=== PATIENT | female | born 1955 | race Caucasian/White ===

== ENCOUNTER → 2023-12-13 | Outpatient (CLI) | payer MEDICARE, SELFPAY ==
--- NOTE | 2023-12-13 15:16 | RAD_ITS ---
INDICATION: PAIN EXAMINATION/TECHNIQUE: X-RAY - XR Spine Thoracic 3 Views COMPARISON: FINDINGS: VERTEBRAE: Preserved vertebral body height. Degenerative endplate spurring more prominent to the mid thoracic levels. Mild wedge compression of T7-T9. Status post surgical fusion of the lower thoracic through the lumbar levels. Status post surgical fusion at the C4-5 and the cervicothoracic junction. No fracture. No spondylolisthesis. Slightly increased thoracic kyphosis. No significant facet arthropathy. DISCS: Disc spaces are maintained. INCLUDED CHEST/ABDOMEN: No acute abnormalities. RAD/Thoracic Spine 3 Views IMPRESSION: Degenerative and postsurgical changes. Electronically Signed: Nils Wilkerson DO at 17:52 EST Reading Location ID and State: [facility] / [place] Tel [phone], Service support ,
--- NOTE | 2023-12-13 15:20 | RAD_ITS ---
INDICATION: PAIN EXAMINATION/TECHNIQUE: X-RAY - LEFT XR Knee Complete 4 Views COMPARISON: FINDINGS: SOFT TISSUES: No soft tissue swelling or gas. No radiopaque foreign body. BONES/JOINTS: No acute fracture or subluxation.. Degenerative spurring at the femorotibial and patellofemoral compartments. Significant narrowing of the medial femorotibial compartment .. No sclerotic or destructive changes observed. RAD/Knee 4 or More Views IMPRESSION: Degenerative changes with significant narrowing of the medial femorotibial compartment. Electronically Signed: Nils Wilkerson DO at 17:40 EST Reading Location ID and State: [facility] / [place] Tel [phone], Service support ,
== END | disposition home or self-care (01) ==
LOC: RAD 15:11
PROVIDERS: Referring Provider Anesthesiology Pain Medicine; Visit Provider Anesthesiology Pain Medicine
DX: M17.12 Unilateral primary osteoarthritis, left knee (principal); M51.36 Other intervertebral disc degeneration, lumbar region
CPT/HCPCS: 72072; 73564

== ENCOUNTER 2024-07-13 06:18 | Day surgery (SDC) | payer MEDICARE, SELFPAY ==
[2024-07-13] VITALS (7 sets, daily range): BP systolic 135–175; BP diastolic 57–92; PULSE 61–99; RESP 16–17; TEMP 36.2–36.5; O2SAT 89–97; BMI 28.8
--- NOTE | 2024-07-13 06:30 | RAD_ITS ---
PROCEDURE: Pain pump insertion. DATE OF EXAMINATION: July 13, 2024 INDICATION: Female, 69 years old. Chronic back pain. FLUOROSCOPY TIME (if supplied): (5.8 seconds) minutes/seconds. 2.7 mGy. One image was submitted. RAD/Spine 1 View Any Level IMPRESSION: Intraoperative fluoroscopic services provided for implantable pain pump placement. Electronically Signed: Sean Galvan MD at 8:50 EDT ,
--- NOTE | 2024-07-13 06:36 | PCM.PRE.AN2 ---
ASA Classification* ASA Classification ASA Classification: 3 Assessment & Plan Anesthesia* Anesthesia Assessment Anesthesia Assessment: Discussed sedation and/or anesthesia options, risks, benefits, and alternatives with patient/parents/legal guardian/POA. Questions invited. The patient/parents/legal guardian/POA seems to understand and agrees to proceed with anesthesia plan. Reviewed the physical assessment, medical history, allergy history and patient home medications list prior to surgery/procedure/anesthetic and documented any changes. Performed airway and anesthesia risk assessments. Anesthesia Type Anesthesia Type: General Anesthesia Focused Assessment* Airway Assessment Mouth opens: >3 cm Mallampati Score: II Focused Labs Anesthesia Preop lab: CBC CHEMISTRY COAG Pre-Assessment Diagnosis/Proposed Procedure Planned Operative Procedure(s): Insertion, Pain Pump,Implantable Anesthesia History Anesthesia History - licensed clinical social worker: Anesthesia History - licensed clinical social worker Hx Hospitalization Yes: FALL 07/12/24 08:23 Any Problems With Anesthesia No 07/12/24 08:23 Cholinesterase deficiency No 07/12/24 08:23 You/Your Family Experience No 07/12/24 08:23 fever (hyperthermia) with Relationship Recent Exposure to Contagious Disease Does patient have nerve No 07/12/24 08:23 stimulator Patient instructed to have device shut off --Does patient have Pacemaker or ICD? When Was Last Pacemaker Check QUESTION #4 FULL TEXT: You/Your Family Experience fever (hyperthermia) with Anesthesia Last Oral Intake Last Oral intake: Last Oral Intake NPO since Meds taken in AM with sips of water? Meds patient instructed to take am of surgery PONV PONV - licensed clinical social worker: PONV - licensed clinical social worker Female Yes 07/12/24 08:23 HX of Motion Sickness No 07/12/24 08:23 HX of N/V After Surgery No 07/12/24 08:23 Non-Smoker Yes 07/12/24 08:23 Duration of Surgery greater No 07/12/24 08:23 than 60 minutes Number of Risk Factors 2 07/12/24 08:23 PONV Score Moderate Risk 07/12/24 08:23 Respiratory Assessment Respiratory Assessment - licensed clinical social worker: Respiratory Tract Infection Hx - licensed clinical social worker Hx Respiratory Tract Infection No 07/12/24 08:23 STOP Sleep Apnea STOP Sleep Apnea - licensed clinical social worker: STOP Sleep Apnea - licensed clinical social worker Hx Hypertension Yes: CONTROLLED ON MED 07/12/24 08:23 Hx Sleep Apnea Yes: NON-COMPLIANT 07/12/24 08:23 CPAP No 07/12/24 08:23 BIPAP No 07/12/24 08:23 Do you snore loudly (louder than talking or can be heard Do you often feel tired/ fatigued/ sleepy during daytime? Has anyone observed you stop breathing during sleep? STOP Results Positive 07/12/24 08:23 QUESTION #5 FULL TEXT : Do you snore loudly (louder than talking or can be heard through closed doors)? Tobacco Use History Tobacco Use History - licensed clinical social worker: Tobacco Use History - licensed clinical social worker Tobacco Use Smoking Status Never smoker 07/12/24 08:23 Hx Tobacco Use No 07/12/24 08:23 Years Smoking Packs Smoked per Day Smoking Cessation Date was within the last 15 years Hx Smoking Cessation Date Hx Smoking Cessation Counseling Hematologic Medial History Hematologic Hx - licensed clinical social worker: Hematologic Medical Hx - reading instructor Hx of Blood Transfusion No 07/12/24 08:23 Hx of Transfusion in last 3 No 07/12/24 08:23 Months Date of Last Transfusion (if within last 3 months) Ever experience any problems No 07/12/24 08:23 with transfusion(s)? Specify any problems Hx of Preganancy in last 3 No 07/12/24 08:23 Months Nurse Filling Out Transfusion VCHRISTIN 07/12/24 08:23 & Questions: Date: 07/12/24 07/12/24 08:23 Time: 08:24 07/12/24 08:23 Patient unable to answer at this time (ie. confused, unrespo /Reproduction History /Reproductive History - licensed clinical social worker: /Reproductive Hx- licensed clinical social worker Hx Now Gestational Age (in weeks): EDC: Hx Hx Para Hx Section SAB Active Medications Active Medications: Current Medications Generic Name Dose Route Start Last Admin Trade Name Freq PRN Reason Stop Dose Admin Diphenhydramine HCl 12.5 - 25 mg 07/13/24 07:30 Diphenhydramine 50 Mg/Ml Syringe IV Q6H PRN PRN ITCHING Diphenhydramine HCl 12.5 - 25 mg 07/13/24 07:30 Diphenhydramine 12.5 Mg/5 Ml Udc PO Q6H PRN PRN ITCHING Morphine Sulfate 100 mg/ 20 mls @ 0.0083 mls/hr 07/13/24 07:30 Sodium Chloride 16 ml/ N/A INTRATH .Q48H DAIN Cefazolin Sodium 3 gm/ Sodium 115 mls @ 150 mls/hr 07/13/24 07:30 Chloride IV 07/13/24 08:15 PREOP ONE Lactated Ringer's 1,000 mls @ 15 mls/hr 07/13/24 07:30 IV 07/15/24 07:29 .Q48H DAIN Lactated Ringer's 1,000 mls @ 15 mls/hr 07/13/24 06:30 IV .Q48H DAIN PFSH Medical History Wears glasses Post-menopausal Depression Arthritis Difficulty swallowing DVT (deep venous thrombosis) Back pain Non-smoker Sleep apnea Shortness of breath on exertion COPD (chronic obstructive pulmonary disease) History of pain when walking History of edema Hypertension Cardiology follow-up encounter History of CHF (congestive heart failure) Chest pain Home Medications ?Medication ?Instructions ?Recorded ?Last Taken ?Type albuterol sulfate 2.5 mg/3 mL 2.5 mg inhalation Q6H PRN 07/12/24 Unknown History (0.083 %) solution for nebulization shortness of breath or wheezing albuterol sulfate 90 mcg/actuation 2 inh inhalation Q6H PRN shortness 07/12/24 Unknown History aerosol inhaler of breath or wheezing amlodipine 10 mg tablet 10 mg PO DAILY 07/12/24 Unknown History beclomethasone dipropionate 40 2 inh inhalation BID 07/12/24 Unknown History mcg/actuation HFA breath activated aerosol (Qvar RediHaler) fluticasone propionate 50 1 - 2 spray intranasal DAILY PRN 07/12/24 Unknown History mcg/actuation nasal nasal congestion spray,suspension furosemide 40 mg tablet 20 mg PO DAILY 07/12/24 Unknown History ibuprofen-diphenhydramine citrate 1 cap PO QHS 07/12/24 Unknown History 200 mg-38 mg tablet (Advil PM) lisinopril 20 mg tablet 20 mg PO DAILY 07/12/24 Unknown History loratadine 10 mg tablet 10 mg PO DAILY 07/12/24 Unknown History montelukast 10 mg tablet 10 mg PO DAILY 07/12/24 Unknown History oxycodone-acetaminophen 10 mg-325 1 tab PO Q4H PRN PRN pain 07/12/24 Unknown History mg tablet ropinirole 2 mg tablet 2 mg PO TID 07/12/24 Unknown History sertraline 50 mg tablet 100 mg PO DAILY 07/12/24 Unknown History sumatriptan succinate 100 mg tablet 100 mg PO UD PRN migraine headache 07/12/24 Unknown History Allergy/AdvReac Type Severity Reaction Status Date / Time No Known Allergies Allergy Verified 07/12/24 07:59 Surgical History History of cardiac catheterization Hx of shoulder replacement History of lung surgery Hx of hysterectomy Hx of total hip arthroplasty Hx of total knee arthroplasty Hx of foot surgery Hx of toe surgery History of back surgery Hx of neck surgery Social History Smoking Status: Never smoker Review of Systems (Anesthesia) ROS Narrative System reviewed and no additional complaints, except as documented.
[2024-07-13] MEDS: Lactated Ringers 1,000 ML 15 ML IV (06:52)
[2024-07-13] MEDS: Cefazolin 3 GM in 0.9% Normal Saline (100mL Bag) 100 ML IV (07:40)
[2024-07-13] MEDS: Bupiv/Epi 0.25% 30 ML Vial (09:01)
[2024-07-13] MEDS: Lidocaine 1% (20 ml mdv) 20 ML Vial (09:01)
[2024-07-13] MEDS: NORMAL SALINE INTRATH (09:03)
[2024-07-13] MEDS: MORPHINE INTRATH (09:03)
--- NOTE | 2024-07-13 09:25 | PCM.POST.ANE ---
Anesthesia: Postop Eval I Current Vital Signs Temperature: 97.7 F Pulse Rate: 79 Blood Pressure: 136/57 Respiratory Rate: 16 Pulse Ox: 97 Oxygen Delivery Method: Room Air Assessment Airway patent: Yes Spontaneous unlabored respirations: Yes Mental status: Awake and Calm nausea: No Vomiting: No Anesthesia Complication: No Fluid Hydration Crystalloid volume administer (ml): 1,100 Total IV fluid infused: 1,100 Progress Note Anesthesia document: Postop Eval 1 completed: Yes
--- NOTE | 2024-07-13 15:43 | POSTOPAN2_ITS ---
Anesthesia Postop Eval I Sum Postop Eval Completion status Anesthesia document: Postop Eval 1 completed: Yes Anesthesia Postop Eval I Summary Anesthesia Postop Eval I Summary: Anesthesia Postop Eval I: Assessment Summary Airway patent Yes 07/13/24 09:33 NETWORKING TECHNOLOGY INSTRUCTOR.GDOTT Spontaneous unlabored Yes 07/13/24 09:33 NETWORKING TECHNOLOGY INSTRUCTOR.GDOTT respirations Mental status Awake,Calm 07/13/24 09:33 NETWORKING TECHNOLOGY INSTRUCTOR.GDOTT nausea No 07/13/24 09:33 NETWORKING TECHNOLOGY INSTRUCTOR.GDOTT Vomiting No 07/13/24 09:33 NETWORKING TECHNOLOGY INSTRUCTOR.GDOTT Anesthesia Postop Eval I: Fluid Summary Crystalloid volume administer 1,100 07/13/24 09:33 NETWORKING TECHNOLOGY INSTRUCTOR.GDOTT (ml) Colloids volume administered ( ml) Blood Product volume administered (ml) Total IV fluid infused 1,100 07/13/24 09:33 NETWORKING TECHNOLOGY INSTRUCTOR.GDOTT Anesthesia Postop Eval I: Summary Notes Anesthesia Complication No 07/13/24 09:33 NETWORKING TECHNOLOGY INSTRUCTOR.GDOTT Anesthesia Complication Comment: Post-operative progress note Anesthesia: Postop Eval II Evaluation Mental status: Awake Pain Level: 0 nausea: No Vomiting: No
--- NOTE | 2024-07-13 15:43 | PCM.POSTANE2 ---
Anesthesia Postop Eval I Sum Postop Eval Completion status Anesthesia document: Postop Eval 1 completed: Yes Anesthesia Postop Eval I Summary Anesthesia Postop Eval I Summary: Anesthesia Postop Eval I: Assessment Summary Airway patent Yes 07/13/24 09:33 PIPE STEM ALIGNER.GDOTT Spontaneous unlabored Yes 07/13/24 09:33 PIPE STEM ALIGNER.GDOTT respirations Mental status Awake,Calm 07/13/24 09:33 PIPE STEM ALIGNER.GDOTT nausea No 07/13/24 09:33 PIPE STEM ALIGNER.GDOTT Vomiting No 07/13/24 09:33 PIPE STEM ALIGNER.GDOTT Anesthesia Postop Eval I: Fluid Summary Crystalloid volume administer 1,100 07/13/24 09:33 PIPE STEM ALIGNER.GDOTT (ml) Colloids volume administered ( ml) Blood Product volume administered (ml) Total IV fluid infused 1,100 07/13/24 09:33 PIPE STEM ALIGNER.GDOTT Anesthesia Postop Eval I: Summary Notes Anesthesia Complication No 07/13/24 09:33 PIPE STEM ALIGNER.GDOTT Anesthesia Complication Comment: Post-operative progress note Anesthesia: Postop Eval II Evaluation Mental status: Awake Pain Level: 0 nausea: No Vomiting: No
== END 2024-07-13 11:03 | disposition home or self-care (01) ==
LOC: SDC 06:19 → AC 06:19
PROVIDERS: Referring Provider Anesthesiology Pain Medicine; Visit Provider Anesthesiology Pain Medicine
PROC: (CPT 62350; principal; 2024-07-13 07:15)
DX: G89.4 Chronic pain syndrome (principal); J44.9 Chronic obstructive pulmonary disease, unspecified; M54.50 Low back pain, unspecified; M51.36 Other intervertebral disc degeneration, lumbar region; M96.1 Postlaminectomy syndrome, not elsewhere classified; I10 Essential (primary) hypertension; M19.90 Unspecified osteoarthritis, unspecified site; Z79.82 Long term (current) use of aspirin; Z79.899 Other long term (current) drug therapy
CPT/HCPCS: 62350; 72020; 76000; J7120; J2274; J2405; J3490

== ENCOUNTER → 2025-04-25 | Outpatient (CLI) | payer MEDICARE, SELFPAY ==
--- NOTE | 2025-04-25 12:30 | RAD_ITS ---
EXAM: XR Right Knee, 1 or 2 Views CLINICAL INDICATION: PAIN TECHNIQUE: Frontal and/or lateral views of the right knee. COMPARISON: No relevant prior studies available. FINDINGS: BONES/JOINTS: Total knee replacement. Intact hardware. Anatomic position. No acute fracture. No dislocation. SOFT TISSUES: Soft tissue swelling. RAD/Knee 1 or 2 Views IMPRESSION: Postoperative changes as above. Reading Location: [id number]
--- NOTE | 2025-04-25 12:30 | RAD_ITS ---
EXAM: XR Left Knee, 1 or 2 Views CLINICAL INDICATION: PAIN TECHNIQUE: Frontal and/or lateral views of the left knee. COMPARISON: No relevant prior studies available. FINDINGS: BONES/JOINTS: Severe degenerative changes of the medial compartment of the knee joint. No acute fracture. No dislocation. SOFT TISSUES: Soft tissue swelling. RAD/Knee 1 or 2 Views IMPRESSION: Degenerative changes as above. Reading Location: [id number]
--- NOTE | 2025-04-25 12:31 | RAD_ITS ---
EXAM: XR Cervical Spine, 2 or 3 Views CLINICAL INDICATION: POSTLAMINECTOMY SYNDROME TECHNIQUE: Frontal and lateral views of the cervical spine. COMPARISON: No relevant prior studies available. FINDINGS: VERTEBRAE: Status post anterior fusion of C4-5 and C7-T1. No definite fracture. Normal alignment. DISC SPACES: See above. SOFT TISSUES: Unremarkable. RAD/Cerv Spine 2 or 3 Views IMPRESSION: Postoperative changes as above. Reading Location: [id number]
== END | disposition home or self-care (01) ==
PROVIDERS: Referring Provider Anesthesiology Pain Medicine; Visit Provider Anesthesiology Pain Medicine
DX: M96.1 Postlaminectomy syndrome, not elsewhere classified (principal); M25.561 Pain in right knee; M25.562 Pain in left knee
CPT/HCPCS: 72040; 73560

== ENCOUNTER → 2025-09-17 | Outpatient (CLI) | payer MEDICARE, SELFPAY ==
--- NOTE | 2025-09-17 15:23 | RAD_ITS ---
PROCEDURE: KNEE 1 OR 2 VIEWS 09/17/2025 REASON FOR EXAM: B/L KNEE PAIN TECHNIQUE: Procedure Code: RADK Modality: DX Procedure: KNEE 1 OR 2 VIEWS Laterality: Left COMPARISON: None FINDINGS: There is no evidence of fracture or dislocation. There is moderate arthritis of the patellofemoral joint. There is severe arthritis of the medial joint space compartment of the knee. There is moderate arthritis of the lateral joint space compartment of the knee. There is no knee joint effusion. The periarticular soft tissues are normal. RAD/Knee 1 or 2 Views IMPRESSION: Moderate to severe tricompartment arthritis of the left knee. Reading Location: [place] [id number]
--- NOTE | 2025-09-17 15:23 | RAD_ITS ---
PROCEDURE: KNEE 1 OR 2 VIEWS 09/17/2025 REASON FOR EXAM: B/L KNEE PAIN TECHNIQUE: Procedure Code: RADK Modality: DX Procedure: KNEE 1 OR 2 VIEWS Laterality: Right COMPARISON: Right knee, 04/25/2025. FINDINGS: Status post total knee arthroplasty. The patellar, femoral and tibial components are normal apposition. There is no evidence of fracture. There is no knee joint effusion. The periarticular soft tissues are unremarkable. There is normal postoperative air and fluid within the knee and periarticular soft tissues. RAD/Knee 1 or 2 Views IMPRESSION: Normal-appearing right total knee arthroplasty. Reading Location: [place] [id number]
--- OUTSIDE RECORDS SUMMARY | 2025-09-17 19:26 | XMS RPT_ITS | CCD ---
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 Name Role Phone Harmony Gee Unavailable Harmony Gee Unavailable Ankit Marroquin Unavailable [phone] Trent Peguero Unavailable [phone] Unavailable Unavailable Unavailable KristinaMiguel garcia Unavailable Marlen Harmony Unavailable GABO SEARS Unavailable Unavailable ANKIT MARROQUIN Unavailable Unavailable MARRYH, HARMONY Unavailable Unavailable HERCEG ALEJO BERMAN Unavailable Unavailable HERCEG, ALEJO BERMAN Unavailable Unavailable TRENT PEGUERO Unavailable Unavailab [facility] PRIMARY CARE Unavailable U navailable HERCEG, ALEJO BERMAN Unavailable Unavailable KRISTINAMIGUEL KEESHA Unavailable Unavailable MARRYH, HARMONY Unavailable Unavailable KRISTINAMIGUEL KEESHA Unavailable Unavailable KRISTINA, MIGUEL KEESHA Unavailable Unavailable MARRYH, HARMONY Unavailable Unavailable MaribelLiang minaya Unavailable Unavailable MaribelLiang minaya Unavailable Unavailable UNASSIGNED, DOCTOR Unavailable Unavailable BRIAN SILVA Unavailable Unavailable Marlen, Harmony Unavailable Harmony Gee Primary Care Provider Unavailable Primary Care Provider Unavailabl e Harmony Gee Unavailable Harmony Gee Primary Care Provider [phone] Anthony, Candido Unavailable Gavin Valverde Unavailable Trent Peguero Unavailable Marlen AREVALO, Harmony Unavailable Marlen AREVALO, Harmony Primary Care Provider [phone] Marlen AREVALO, Harmony Unavailable Marlen AREVALO, Harmony Primary Care Provider Marlen AREVALO, Harmony Unavailable Marlen AREVALO, Harmony Primary Care Provider [phone] Anthony AREVALO, Candido Unavailable Abram AREVALO, Gavin Mcallister Unavailable [phone] Marlen AREVALO, Harmony Unavailable Marlen AREVALO, Harmony Primary Care Provider Marlen AREVALO, Harmony Unavailable Marlen AREVALO, Harmony Primary Care Provider Marlen AREVALO, Harmony Primary [facility], HARMONY Referring Unavailable KRISTYN HA Attending Unavailable [facility] Primary Care Unavailable DARELL FISHMAN Attending Unava ilable ALLIE RAY Attending Unavailable [facility] Care Unavailable RAY OLIVA Referring Unavailable ALLIE RAY Admitting Unavailable ALLIE RAY Attending Unavailable [facility] Primary Care Unavailable Marlen AREVALO, Harmony Primary Care Provider Harmony Gee MD Unavailable Marlen AREVALO, Harmony Primary Care Provider SALLY GALLEGO Attending Unavailable [facility] Primary Care Unavailable BHAVIK RAOUL S Referring Unavailable SALLY GALLEGO Attending Unavailable [facility] Primary Care Unavailable LUNDY, RAOUL S Referring Unavailable [facility] Primary Care Unavailable LUNDY, RAOUL S Referring Unavailable GALLEGOSALLY DOCKERY Attending Unavailable LUNDY, RAOUL S Referring Unavailable LUNDY RAOUL S Attending Unavailable [facility], [facility] Primary Care Unavailable BHAVIK AROUL S Referring Unavailable [facility] [place] Primary Care Unavailable LUNDY, RAOUL S Attending Unavailable LUNDY, RAOUL S Referring Unavailable [facility], [facility] Primary Care Unavailable LUNDY, RAOUL S Attending Unavailable LUNDY, RAOUL S Referring Unavailable LUNDY, RAOUL S Attending Unavailable [facility], [facility] Primary Care Unavailable LUNDY, RAOUL S Referring Unavailable LUNDY, RAOUL S Attending Unavailable [facility], [facility] Primary Care Unavailable Sylvester, David Sandadi Primary Care Provider LUNDY, RAOUL S Attending Unavailable [facility] Primary Care Unavailable LUNDY, RAOUL S Referring Unavailable [facility] Primary Care Unavailable RAMONAJOSE Nichols L Attending Unavailable RAMONA JOSE L Referring Unavailable [facility] Primary Care Unavailable LUNDY, RAOUL S Referring Unavailable LUNDY, RAOUL S Attending Unavailable [facility], [facility] Primary Care Unavailable LUNDY, RAOUL S Referring Unavailable LUNDY, RAOUL S Attending Unavailable [facility], [facility] Primary Care Unavailable SELF, SELF Referring Unavailable LUNDY, RAOUL S Attending Unavailable [facility], [facility] Primary Care Unavailable LUNDY, RAOUL S Referring Unavailable LUNDY, RAOUL S Attending Unavailable SELF, SELF Referring Unavailable LUNDY, RAOUL S Attending Unavailable [facility], [facility] Primary Care Unavailable LUNDY, RAOUL S Attending Unavailable [facility], [facility] Primary Care Unavailable LUNDY, RAOUL S Referring Unavailable LUNDY, RAOUL S Attending Unavailable [facility], [facility] Primary Care Unavailable LUNDY, RAOUL S Referring Unavailable LUNDY, RAOUL S Attending Unavailable [facility], [facility] Primary Care Unavailable LUNDY, RAOUL S Referring Unavailable LUNDY, RAOUL S Attending Unavailable [facility], [facility] Primary Care Unavailable LUNDY, RAOUL S Referring Unavailable LUNDY, RAOUL S Attending Unavailable [facility], [facility] Primary Care Unavailable LUNDY, RAOUL S Referring Unavailable Sylvester, David Sandadi Primary Care Provider [phone] SYLVESTER, DAVID SANDADI Primary Care UnavailZAFAR Medley Attending Unavailable ZAFAR FAITH Referring Unavailable SYLVESTER, DAVID SANDADI Primary Care UnavailGIACOMO Moy Attending Unavailable SYLVESTER, DAVID SANDADI Primary Care UnavailGIACOMO Moy Referring Unavailable SYLVESTER, DAVID SANDADI Primary Care Unavailhill Sylvester MD, David Sandadi Primary Care Provider LEE RODRIGUEZ Admitting Unavailable [facility] Consulting Unav ailable MATHEW JUSTICE Attending Unavailabl e [facility], [facility] Primary Care Unavailable FERNANDO ALAS Referring Unavaila ble [facility], [facility] Primary Care Unavailable WILLIAM, JOSE L. Referring Unavailable [facility] Primary Care Unavailable RENETTA MCKEON Attending Unavailable [facility] [place] Primary Care Provider Yordan AREVALO, Dr. Andujar Attending Provider Yordan AREVALO, Dr. Andujar Referring Provider [phone] [facility] Primary Care Unavailable Con Farr Attending Unavailable Con Farr [facility] Unavailable Con Farr Attending Unavailable BasalCon hurst Referring Unavailable Hinch Harmony AREVALO Unavailable FERNANDO ALAS Attending Unavaila ble [facility] [place] Primary Care Unavailable MATURU, MELCHOR SATYANARAYANA Referring Rosangela vailable [facility] [place] [facility] Primary Care Unavailable MATURU, MELCHOR SATYANARAYANA Attending Rosangela vailable [facility] [place] Primary Care Unavailable BHANU BRICE Attending Unavailabl e BHANU BRICE Referring Unavailabl e [facility] [place] Primary Care Unavailable BHANU BRICE Attending Unavailabl e BHANU BRICE Referring Unavailabl e MATURU, MELCHOR SATYANARAYANA Attending Rosangela vailable [facility] [place] Primary Care Unavailable MATURU, MELCHOR SATYANARAYANA Admitting Rosangela vailable BHANU BRICE Referring Unavailabl e MATURU, MELCHOR SATYANARAYANA Attending Rosangela vailable [facility] [facility] Primary Care Unavailable DILIP MCKEON Attending Unavaila ble [facility] Primary Care Unavailable [facility] Referring Unavailable [facility], [facility] Admitting Unavailable [facility] [place] Primary Care Unavailable BENJIE STYLES Attending Unavailable BHANU BRICE Referring Unavailabl e WELLS, ANALKUMAR MAGIISHNAVADAN Attending U navailable [facility] [place] [facility] Primary Care Unavailable BHANU BRICE Admitting Unavailabl e WELLS, ANALKUMAR KRISHNAVADAN Referring U navailable [facility] Primary Care Unavailable WELLS, ANALKDANA SOWISHJANEENN Attending U navailable [facility] Referring Unavailable [facility] Primary Care Unavailable BENJIE STYLES Admitting Unavailable BENJIE STYLES Attending Unavailable HARMONY GEE Primary Care Unavailable RUIZ ALCANTAR Attending Rosangela vailable [facility]ending Unavailable Allergies Allergy Classification Reported Allergen(s) Allergy Type Date of Onset Reaction(s) Facility DULoxetine (18 sources) DULoxetine Drug Allergy 8 [facility] metFORMIN (18 sources) metFORMIN Drug Allergy 7 [facility] NSAIDs (20 sources) Ibuprofen Drug Allergy 9 [facility] pregabalin (18 sources) pregabalin Drug Allergy 8 Other (See Comments) [facility] (20 sources) metFORMIN; Translations: [METFORMIN] Propensity to adverse reactions to drug 7 GI Intolerance, GI Upset [facility] Work Phone: (20 sources) pregabalin; Translations: [PREGABALIN] Propensity to adverse reactions to drug 8 Other (See Comments), Other: See Comments [facility] (4 sources) NO KNOWN DRUG ALLERGIES; Translations: [NO KNOWN DRUG ALLERGIES] Propensity to adverse reactions to drug 5 [facility] Work Phone: (20 sources) DULoxetine; Translations: [DULOXETINE] Drug Allergy 8 GI Intolerance, GI Upset [facility] (20 sources) Ibuprofen; Translations: [IBUPROFEN] Drug Allergy 9 GI Intolerance, GI Upset, Vomiting [facility] (20 sources) NSAIDs; Translations: [NSAIDS (NON-STEROIDAL ANTI-INFLAMMATO RY DRUG)] Propensity to adverse reactions to drug 1 GI Intolerance, GI Upset, Vomiting [facility] Medications Current Medications Medication Drug Class(es) Dates Sig (Normalized) Sig (Original) acetaminophen 325 mg / butalbital 50 mg / caffeine 40 mg oral tablet (6 sources) Barbiturate, Central Nervous System Stimulant, Methylxanthine Start: 07-02-2008 butalb/acetamino phen/caffeine(FI ORICET 50 MG-325 MG-40 MG TAB) as necessary 0 07/02/2008 Active Comment on above: as necessary Acetaminophen / HYDROcodone (20 sources) Opioid Agonist Start: 12-27-2011 HYDROCODONE-ACET AMINOPHEN ORAL Take by mouth every 6 hours as needed. 12/27/2011 Active Start: 12-27-2011 HYDROCODONE-AC ETAMINOPHEN ORAL Take by mouth every 6 hours as needed. 0 12/27/2011 Active Start: 12-27-2011 take 1 tablet by mattie th every six hours as needed hydrocodone-acetaminophen 5-500 MG PO TA BS take 1 Tab by mouth every 6 hours as needed for Pain. 60 Tab 0 12/27/2011 Active Start: 07-02-2008 End: 04-18-2023 hydrocodone bit/acetaminophe n(VICODIN 5 MG-500 MG TAB) Take 1-2 tablet's) every six(6) hours as needed for pain. 0 07/02/2008 04/18/2023 Discontinued Comment on above: Take by mouth every 6 hours as needed. Take 1-2 tablet's) e very six(6) hours as needed for pain. acetaminophen 325 mg / oxyCODONE hydrochloride 10 mg oral tablet (20 sources) Opioid Agonist Start: 07-12-2024 Oxycodone-Acetaminophe n 10-325 mg tablet Active 1 {tbl} PO EVERY 4 HOURS NEEDED as needed for pain July 12, 2024 12:00am Start: 10-28-2023 End: 10-31-2023 take 2 tablets by mouth every four hours as needed for pain oxyCODONE-acetaminophen (PERCOCET) 10-32 5 mg per tablet Indications: pain Take 2 (two) tablets by mouth every 4 (four) hours as needed for pain (Days supply per fill: 180 Reasons: pain. 36 tablet 0 10/28/2023 10/31/2023 Active Start: 10-28-2023 End: 10-28-2023 take 2 tablets by mouth every four hours as needed oxyCODONE-acetaminophen (PERCOCET) 5-325 mg per tablet 2 tablet Start: 04-13-2023 oxyCODONE-acet aminophen (PERCOCET 10) 10-325 mg tablet 04/13/2023 Active Start: 07-07-2020 End: 02-26-2021 take 2 tablets by mouth three times daily oxyCODONE-acetaminophen (PERCOCET) 10-32 5 mg per tablet Indications: Postlaminectomy syndrome of lumbar region Take 2 (two) tablets by mouth 3 (three) times a day (Days supply per fill: 30) M51.36 Start: 08/07/20. 180 tablet 0 08/07/2020 02/26/2021 Discontinued (Patient's Request) Start: 06-07-2020 End: 05-20-2020 take 2 tablets by mouth three times daily oxyCODONE-acetaminophen (PERCOCET) 10-32 5 mg per tablet Indications: Postlaminectomy syndrome of lumbar region Take 2 (two) tablets by mouth 3 (three) times a day (Days supply per fill: 30) M51.36 Start: 06/07/20. 180 tablet 0 06/07/2020 05/20/2020 Discontinued (Reorder) Start: 05-03-2020 End: 05-20-2020 take 2 tablets by mouth three times daily oxyCODONE-acetaminophen (PERCOCET) 10-32 5 mg per tablet Indications: Postlaminectomy syndrome of lumbar region Take 2 (two) tablets by mouth 3 (three) times a day (Days supply per fill: 30) M51.36 Start: 05/03/20. 180 tablet 0 05/03/2020 05/20/2020 Discontinued (Reorder) Start: 03-01-2020 End: 03-31-2020 take 2 tablets by mouth three times daily oxyCODONE-acetaminophen (PERCOCET) 10-32 5 mg per tablet Indications: Postlaminectomy syndrome of lumbar region Take 2 (two) tablets by mouth 3 (three) times a day (Days supply per fill: 30) M51.36 Start: 03/01/20. 180 tablet 0 03/01/2020 03/31/2020 Active Start: 01-31-2020 End: 01-29-2020 take 2 tablets by mouth three times daily oxyCODONE-acetaminophen (PERCOCET) 10-32 5 mg per tablet Indications: Postlaminectomy syndrome of lumbar region Take 2 (two) tablets by mouth 3 (three) times a day (Days supply per fill: 30) M51.36 Start: 01/31/20. 180 tablet 0 01/31/2020 01/29/2020 Discontinued (Reorder) Start: 01-01-2020 End: 01-31-2020 take 2 tablets by mouth three times daily oxyCODONE-acetaminophen (PERCOCET) 10-32 5 mg per tablet Indications: Postlaminectomy syndrome of lumbar region Take 2 (two) tablets by mouth 3 (three) times a day (Days supply per fill: 30) M51.36 Start: 01/01/20. 180 tablet 0 01/01/2020 01/29/2020 Discontinued (Reorder) Start: 12-02-2019 End: 11-27-2019 take 2 tablets by mouth three times daily oxyCODONE-acetaminophen (PERCOCET) 10-32 5 mg per tablet Indications: Postlaminectomy syndrome of lumbar region Take 2 (two) tablets by mouth 3 (three) times a day (Days supply per fill: 30) M51.36 Start: 12/02/19. 180 tablet 0 12/02/2019 11/27/2019 Discontinued (Reorder) Start: 11-02-2019 End: 12-02-2019 take 2 tablets by mouth three times daily oxyCODONE-acetaminophen (PERCOCET) 10-32 5 mg per tablet Indications: Postlaminectomy syndrome of lumbar region Take 2 (two) tablets by mouth 3 (three) times a day (Days supply per fill: 30) M51.36 Start: 11/02/19. 180 tablet 0 11/02/2019 11/27/2019 Discontinued (Reorder) Start: 10-03-2019 End: 09-25-2019 take 2 tablets by mouth three times daily oxyCODONE-acetaminophen (PERCOCET) 10-32 5 mg per tablet Indications: Postlaminectomy syndrome of lumbar region Take 2 (two) tablets by mouth 3 (three) times a day (Days supply per fill: 30) M51.36 Start: 10/03/19. 180 tablet 0 10/03/2019 09/25/2019 Discontinued (Reorder) Start: 09-02-2019 End: 10-02-2019 take 2 tablets by mouth three times daily oxyCODONE-acetaminophen (PERCOCET) 10-32 5 mg per tablet Indications: Postlaminectomy syndrome of lumbar region Take 2 (two) tablets by mouth 3 (three) times a day (Days supply per fill: 30) M51.36 Start: 09/02/19. 180 tablet 0 09/02/2019 09/25/2019 Discontinued (Reorder) Start: 08-03-2019 End: 07-31-2019 take 2 tablets by mouth three times daily oxyCODONE-acetaminophen (PERCOCET) 10-32 5 mg per tablet Indications: Postlaminectomy syndrome of lumbar region Take 2 (two) tablets by mouth 3 (three) times a day (Days supply per fill: 30) M51.36 Start: 08/03/19. 180 tablet 0 08/03/2019 07/31/2019 Discontinued (Reorder) Start: 07-04-2019 End: 08-03-2019 take 2 tablets by mouth three times daily oxyCODONE-acetaminophen (PERCOCET) 10-32 5 mg per tablet Indications: Postlaminectomy syndrome of lumbar region Take 2 (two) tablets by mouth 3 (three) times a day (Days supply per fill: 30) M51.36 Start: 07/04/19. 180 tablet 0 07/04/2019 07/31/2019 Discontinued (Reorder) Start: 06-08-2019 End: 06-10-2019 take 2 tablets by mouth every eight hours as needed oxyCODONE-acetaminophen (PERCOCET) 10-32 5 mg per tablet 2 tablet Start: 06-08-2019 End: 08-24-2023 take 2 tablets by mouth every eight hours as needed 2 tablet, Oral, Every 8 hours PRN, moderate to severe pain, Starting Tue06/08/19 at 1803 Start: 06-08-2019 oxyCODONE-acet aminophen (PERCOCET) 5-325 mg per tablet 1 tablet Start: 06-04-2019 End: 06-01-2019 take 2 tablets by mouth three times daily oxyCODONE-acetaminophen (PERCOCET) 10-32 5 mg per tablet Indications: Postlaminectomy syndrome of lumbar region Take 2 (two) tablets by mouth 3 (three) times a day (Days supply per fill: 30) M51.36 Start: 06/04/19. 180 tablet 0 06/04/2019 06/01/2019 Discontinued (Reorder) Start: 05-05-2019 End: 06-04-2019 take 2 tablets by mouth three times daily oxyCODONE-acetaminophen (PERCOCET) 10-32 5 mg per tablet Indications: Postlaminectomy syndrome of lumbar region Take 2 (two) tablets by mouth 3 (three) times a day (Days supply per fill: 30) M51.36 Start: 05/05/19. 180 tablet 0 05/05/2019 06/01/2019 Discontinued (Reorder) Start: 04-05-2019 End: 04-02-2019 take 2 tablets by mouth three times daily oxyCODONE-acetaminophen (PERCOCET) 10-32 5 mg per tablet Indications: Postlaminectomy syndrome of lumbar region Take 2 (two) tablets by mouth 3 (three) times a day (Days supply per fill: 30) M51.36 Start: 04/05/19. 180 tablet 0 04/05/2019 04/02/2019 Discontinued (Reorder) Start: 03-06-2019 End: 04-02-2019 take 2 tablets by mouth three times daily oxyCODONE-acetaminophen (PERCOCET) 10-32 5 mg per tablet Indications: Postlaminectomy syndrome of lumbar region Take 2 (two) tablets by mouth 3 (three) times a day (Days supply per fill: 30) M51.36 . 180 tablet 0 03/06/2019 04/02/2019 Discontinued (Reorder) Start: 12-26-2018 End: 01-25-2019 take 1 tablet by mouth five times daily oxyCODONE-acetaminophen (PERCOCET) 10-32 5 mg per tablet Indications: Postlaminectomy syndrome of lumbar region Take 1 (one) tablet by mouth 5 (five) times a day (Days supply per fill: 30) Start: 12/26/18. 150 tablet 0 12/26/2018 01/25/2019 Active Start: 11-26-2018 End: 11-21-2018 take 1 tablet by mouth five times daily oxyCODONE-acetaminophen (PERCOCET) 10-32 5 mg per tablet Indications: Postlaminectomy syndrome of lumbar region Take 1 (one) tablet by mouth 5 (five) times a day (Days supply per fill: 30) Start: 11/26/18. 150 tablet 0 11/26/2018 11/21/2018 Discontinued Start: 10-25-2018 End: 11-21-2018 take 1 tablet by mouth five times daily oxyCODONE-acetaminophen (PERCOCET) 10-32 5 mg per tablet Indications: Postlaminectomy syndrome of lumbar region Take 1 (one) tablet by mouth 5 (five) times a day (Days supply per fill: 30) Start: 10/25/18. 150 tablet 0 10/25/2018 11/21/2018 Discontinued Start: 08-24-2018 End: 09-23-2018 take 1 tablet by mouth five times daily oxyCODONE-acetaminophen (PERCOCET) 10-32 5 mg per tablet Indications: Postlaminectomy syndrome of lumbar region Take 1 (one) tablet by mouth 5 (five) times a day (Days supply per fill: 30). 150 tablet 0 08/24/2018 09/23/2018 Active Start: 06-25-2018 End: 07-25-2018 take 1 tablet by mouth five times daily oxyCODONE-acetaminophen (PERCOCET) 10-32 5 mg per tablet Indications: Postlaminectomy syndrome of lumbar region Take 1 (one) tablet by mouth 5 (five) times a day (Days supply per fill: 30). 150 tablet 0 06/25/2018 07/25/2018 Active Start: 05-26-2018 End: 05-24-2018 take 1 tablet by mouth five times daily oxyCODONE-acetaminophen (PERCOCET) 10-32 5 mg per tablet Indications: Postlaminectomy syndrome of lumbar region Take 1 (one) tablet by mouth 5 (five) times a day (Days supply per fill: 30). 150 tablet 0 05/26/2018 05/24/2018 Discontinued Start: 05-19-2018 End: 05-24-2018 take 1 tablet by mouth five times daily, then take 7 tablets by mouth oxyCODONE-acetaminophen (PERCOCET) 10-32 5 mg per tablet Indications: Postlaminectomy syndrome of lumbar region Take 1 (one) tablet by mouth 5 (five) times a day (Days supply per fill: 7) for 7 days. 35 tablet 0 05/19/2018 05/24/2018 Discontinued Start: 04-12-2018 End: 05-12-2018 take 1 tablet by mouth five times daily oxyCODONE-acetaminophen (PERCOCET) 10-32 5 mg per tablet Indications: Postlaminectomy syndrome of lumbar region Take 1 (one) tablet by mouth 5 (five) times a day (Days supply per fill: 30). 150 tablet 0 04/12/2018 05/12/2018 Active Start: 02-14-2018 End: 03-16-2018 take 2 tablets by mouth three times daily oxyCODONE-acetaminophen (PERCOCET) 10-32 5 mg per tablet Indications: Postlaminectomy syndrome of lumbar region Take 2 (two) tablets by mouth 3 (three) times a day (Days supply per fill: 30). 180 tablet 0 03/13/2018 03/13/2018 Discontinued Start: 12-16-2017 End: 01-15-2018 take 2 tablets by mouth three times daily oxyCODONE-acetaminophen (PERCOCET) 10-32 5 mg per tablet Indications: Generalized osteoarthrosis, involving multiple sites Take 2 (two) tablets by mouth 3 (three) times a day 30 days. 180 tablet 0 12/16/2017 01/15/2018 Active Start: 11-16-2017 End: 11-02-2017 take 2 tablets by mouth three times daily oxyCODONE-acetaminophen (PERCOCET) 10-32 5 mg per tablet Indications: Generalized osteoarthrosis, involving multiple sites Take 2 (two) tablets by mouth 3 (three) times a day 30 days. 180 tablet 0 11/16/2017 11/02/2017 Discontinued Start: 10-17-2017 End: 11-16-2017 take 2 tablets by mouth three times daily oxyCODONE-acetaminophen (PERCOCET) 10-32 5 mg per tablet Take 2 (two) tablets by mouth 3 (three) times a day. 180 tablet 0 10/17/2017 11/02/2017 Discontinued Start: 09-17-2017 End: 09-13-2017 take 2 tablets by mouth three times daily oxyCODONE-acetaminophen (PERCOCET) 10-32 5 mg per tablet Take 2 (two) tablets by mouth 3 (three) times a day. 180 tablet 0 09/17/2017 09/13/2017 Discontinued Start: 08-17-2017 End: 09-16-2017 take 2 tablets by mouth three times daily oxyCODONE-acetaminophen (PERCOCET) 10-32 5 mg per tablet Take 2 (two) tablets by mouth 3 (three) times a day. 180 tablet 0 08/17/2017 09/13/2017 Discontinued Start: 06-02-2017 End: 07-18-2017 take 2 tablets by mouth three times daily oxyCODONE-acetaminophen (PERCOCET) 10-32 5 mg per tablet Take 2 (two) tablets by mouth 3 (three) times a day. 180 tablet 0 07/18/2017 07/18/2017 Discontinued oxycodone-acetam inophen 10-325 MG per tablet Take 1 tablet by mouth. 6 times a day 0 Active albuterol 0.83 mg/ml inhalation solution (20 sources) beta2-Adrenergic Agonist Start: 07-12-2024 take 2.5 mg by inhalation every six hours as needed for wheezing Albuterol Sulfate 2.5 mg /3 mL (0.083 %) solution for nebulization Active 2.5 mg INHALATION EVERY 6 HOURS as needed for shortness of breath or wheezing July 12, 2024 12:00am Start: 07-12-2024 Albuterol Sulf ate 90 mcg/actuation HFA aerosol inhaler Active 2 NMA INHALATION EVERY 6 HOURS as needed for shortness of breath or wheezing July 12, 2024 12:00am Start: 04-22-2021 End: 10-28-2023 take 1 puff(s) by inhalation every six hours as needed for wheezing albuterol (Ventolin HFA) 90 mcg/actuation inhaler Inhale 1 (one) puff every 6 (six) hours as needed for wheezing . 1 Inhaler 4 04/22/2021 Active Start: 03-13-2021 End: 03-14-2021 take 2.5 mg by inhalation every six hours as needed 2.5 mg, Nebulization, Every 6 hours PRN (RT), wheezing, shortness of breath, Starting Tue03/13/21 at 1505 Start: 06-12-2018 End: 09-29-2023 take 2 puff(s) by inhalation every four hours as needed albuterol HFA (PROVENTIL HFA, VENTOLIN HFA) 90 mcg/actuation inhaler Inhale 2 Puffs as instructed every 4 hours as needed. 06/12/2018 Active Start: 06-12-2018 End: 2022 take 2 puff(s) by inhalation every six hours as needed for wheezing albuterol 108 (90 Base) MCG/ACT Aero Soln inhaler Indications: Chronic obstructive pulmonary disease, unspecified COPD type , Moderate persistent asthma without complication , Restrictive lung disease , Cough , SOB (shortness of breath) , Overweight , AYO (obstructive sleep apnea) , Secondhand smoke exposure Inhale 2 puffs every 6 hours as needed for Wheezing. 1 Inhaler 11 06/12/2018 Active Start: 02-27-2018 End: 02-28-2018 take 2.5 mg by inhalation every four hours as needed Start: 04-21-2017 End: 08-10-2023 albuterol (PROVENTIL) 2.5 mg /3 mL (0.083 %) nebulizer solution Indications: COPD Take 3 mL (2.5 mg total) by nebulization daily as needed Reasons: COPD. 0 04/21/2017 08/10/2023 Discontinued (Error) Start: 04-21-2017 albuterol (PRO VENTIL) 2.5 mg /3 mL (0.083 %) nebulizer solution Indications: COPD Take 2.5 mg by nebulization daily as needed . 0 04/21/2017 Active Start: 04-21-2017 albuterol (PRO VENTIL) 2.5 mg /3 mL (0.083 %) nebulizer solution End: 2022 albuterol 90 mcg/actuation i nhaler albuterol sulfate HFA 90 mcg/actuation aerosol inhaler 0 2022 Discontinued (Duplicate order) End: 02-23-2018 albuterol (PROVENTIL HFA;BEREKET TOLIN HFA) 90 mcg/actuation inhaler Indications: COPD/RESCUE INHALER Inhale 2 puffs 2 (two) times a day . 02/23/2018 Discontinued albuterol (PROVE NTIL HFA;VENTOLIN HFA) 90 mcg/actuation inhaler Indications: COPD/RESCUE INHALER Inhale 2 puffs as needed for wheezing . Active Comment on above: Inhale 2 Puffs as in structed every 4 hours as needed. amLODIPine 10 mg oral tablet (20 sources) Dihydropyridine Calcium Channel Geraldine Start: take 1 tablet by mouth once daily amLODIPine (NORVASC) 10 MG tablet Take 1 (one) tablet (10 mg total) by mouth daily . 07/12/2024 Active Start: 11-13-2020 End: 03-14-2021 take 1 tablet by mouth once daily in the evening amLODIPine (NORVASC) 5 MG tablet Take 1 (one) tablet (5 mg total) by mouth every evening . 0 11/13/2020 Active Start: 11-13-2020 take 2 tablets by mo [facility] once daily amLODIPine (NORVASC) 5 MG tablet Take 10 mg by mouth daily . 0 11/13/2020 Active Start: 07-02-2008 End: 10-28-2023 amlodipine besylate(NORVASC 10 MG TAB) Take one(1) tablet daily. 0 07/02/2008 Active Comment on above: Take one(1) tablet d aily. AMLODIPINE BESYLATE, BULK, MISC (20 sources) Start: 024 take 10 mg by mouth once daily at breakfast AMLODIPINE BESYLATE, BULK, MISC Take 10 mg by mouth daily with breakfast. 05/08/2024 Active ascorbic acid 500 mg oral tablet (6 sources) Vitamin C Start: ascorbic acid(VITAMIN C 500 MG TAB) Take one(1) tablet daily. 0 07/02/2008 Active Comment on above: Take one(1) tablet d aily. atorvastatin 40 mg oral tablet (16 sources) HMG-CoA Reductase Inhibitor take 1 tablet by mouth once daily atorvastatin (LIPITOR) 40 MG tablet Take 1 (one) tablet (40 mg total) by mouth daily . Active Beclomethasone Dipropionate (20 sources) Corticosteroid Start: take 40 ug by inhalation twice daily Beclomethasone Dipropionate (Qvar Redihaler) 40 mcg/actuation HFA aerosol breath activated Active 2 NMA INHALATION TWICE A DAY July 12, 2024 12:00am Start: 03-24-2023 QVAR REDIHALER 40 mcg/actuation inhaler Start: 05-13-2021 End: 2022 take 2 puff(s) by inhalation twice daily Qvar RediHaler 40 mcg/actuation HFAB Inhale 2 puffs 2 (two) times a day . 0 05/13/2021 2022 Discontinued (Duplicate order) Start: 05-07-2021 take 2 puff(s) by mo ut twice daily beclomethasone (QVAR) 40 mcg/actuation inhaler Indications: COPD, severe (HCC) Inhale 2 (two) puffs 2 (two) times a day Rinse mouth . 1 Inhaler 5 05/07/2021 Start: 05-07-2021 take 2 puff(s) by mo uth twice daily beclomethasone (QVAR) 40 mcg/actuation inhaler Indications: COPD, severe (HCC) Inhale 2 (two) puffs 2 (two) times a day Rinse mouth . 1 Inhaler 5 05/07/2021 Active Start: 05-07-2021 End: 05-07-2022 take 2 puff(s) by mouth twice daily beclomethasone (QVAR) 40 mcg/actuation inhaler Indications: COPD, severe (HCC) Inhale 2 (two) puffs 2 (two) times a day Rinse mouth . 1 Inhaler 5 05/07/2021 05/07/2022 Active Start: 05-07-2021 End: 05-07-2021 take 2 puff(s) by mouth twice daily beclomethasone (QVAR) 40 mcg/actuation inhaler Inhale 2 (two) puffs 2 (two) times a day Rinse mouth . 1 Inhaler 5 05/07/2021 05/07/2021 Discontinued (Reorder) Start: 05-07-2021 End: 05-07-2022 take 2 puff(s) by mouth twice daily beclomethasone (QVAR) 40 mcg/actuation inhaler Inhale 2 (two) puffs 2 (two) times a day Rinse mouth . 1 Inhaler 5 05/07/2021 05/07/2022 Active Start: 04-22-2021 End: 05-06-2021 take 1 puff(s) by mouth twice daily beclomethasone (QVAR) 40 mcg/actuation inhaler Inhale 1 (one) puff 2 (two) times a day Rinse mouth . 1 Inhaler 3 04/22/2021 05/06/2021 Discontinued (Reorder) Start: 04-22-2021 End: 04-22-2022 take 1 puff(s) by mouth twice daily beclomethasone (QVAR) 40 mcg/actuation inhaler Inhale 1 (one) puff 2 (two) times a day Rinse mouth . 1 Inhaler 3 04/22/2021 04/22/2022 Active caffeine 200 mg oral tablet (20 sources) Central Nervous System Stimulant, Methylxanthine caffeine 200 m g Take 1 (one) tablet (200 mg total) by mouth every 7 days . Active End: 08-04-2023 take 1 tablet by mouth once daily caffeine 200 mg Take 1 (one) tablet (200 mg total) by mouth daily . 0 08/04/2023 Discontinued (Patient's Request) celecoxib 200 mg oral capsule (20 sources) Nonsteroidal Anti-inflammatory Drug Start: 02-02-2023 celecoxib (CELEBREX) 200 mg capsule 02/02/2023 Active Start: 02-02-2023 Celecoxib 200 MG capsule Indications: Segmental and somatic dysfunction of sacral region Day 1 take 2 capsules po then beginning Day 2 take 1 capsule twice daily 30 capsule 0 02/02/2023 Active Start: 12-09-2020 End: 02-26-2021 celecoxib (CELEBREX) 100 MG capsule clonazePAM 1 mg oral tablet (20 sources) Benzodiazepine Start: 08-23-2018 End: 06-10-2019 take 1 tablet by mouth twice daily as needed for anxiety clonazePAM (KLONOPIN) 1 MG tablet Take 1 (one) tablet (1 mg total) by mouth 2 (two) times a day as needed for anxiety . 08/23/2018 Active Start: 04-19-2017 End: 10-28-2017 clonazePAM (KLONOPIN) 0.5 MG tablet Start: 07-02-2008 End: 10-28-2023 CLONAZEPAM 1 MG TAB Take one (1) tablet daily at bedtime. 0 07/02/2008 Active Comment on above: Take one(1) tablet d aily at bedtime. 24 hr darifenacin 15 mg extended release oral tablet (6 sources) Cholinergic Muscarinic Antagonist Start: 2 End: 3 take 1 tablet by mouth once daily darifenacin (ENABLEX) 15 mg 24 hr tablet Take 1 (one) tablet (15 mg total) by mouth daily . 30 tablet 11 04/14/2022 04/14/2023 Active diclofenac sodium 0.01 mg/mg topical gel (20 sources) Nonsteroidal Anti-inflammatory Drug Start: 3 diclofenac (VOLTAREN) 1 % topical gel Apply to affected area. 04/08/2023 Active Start: 07-27-2022 End: 02-07-2023 Diclofenac sodium 1 % Gel ge l Indications: Primary osteoarthritis of left hip , Acute pain of both knees Apply 2 g topically 4 times daily. 350 g 0 02/07/2023 Active Start: 02-23-2017 End: 02-18-2018 diclofenac sodium 1 % Gel Ap ply 2 g topically 4 (four) times a day. 720 g 3 02/23/2017 02/18/2018 Active diclofenac sodiu m 1 % Gel Apply 10 (ten) g topically 3 (three) times a day as needed . 0 Active DICLOFENAC SODIU M TOP Apply 10 g topically 4 (four) times a day as needed . 0 Active Comment on above: Apply to affected ar ea. diphenhydrAMINE citrate 38 mg / ibuprofen 200 mg oral tablet (1 source) Histamine-1 Receptor Antagonist, Nonsteroidal Anti-inflammatory Drug Start: Ibuprofen-Diphenh ydramine Cit (Advil Pm) 200-38 mg tablet Active 1 NMA PO AT BEDTIME July 12, 2024 12:00am docusate sodium 50 mg / sennosides, fpc 8.6 mg oral tablet (20 sources) Start: End: take 1 tablet by mouth twice daily senna-docusate (SENNA-S) 8.6-50 mg Take 1 (one) tablet by mouth 2 (two) times a day . 60 tablet 08/14/2024 09/13/2024 Active Start: 10-26-2023 End: 10-28-2023 take 1 tablet by mouth twice daily 1 tablet, Oral, 2 times daily, First dos e on Tue10/26/23 at 0900 NOT for abdominal surgery patients. Hold for loose stools. Do Not Crush or Chew if administering orally due to bitter taste. May be crushed if given via tube. Start: 08-24-2023 End: 09-23-2023 take 1 tablet by mouth twice daily senna-docusate (SENNA-S) 8.6-50 mg Take 1 (one) tablet by mouth 2 (two) times a day . 60 tablet 0 08/24/2023 09/23/2023 Start: 03-13-2021 End: 03-14-2021 take 1 tablet by mouth twice daily 1 tablet, Oral, 2 times daily, First dos e on Tue03/13/21 at 2100 NOT for abdominal surgery patients. Hold for loose stools. Do Not Crush or Chew if administering orally due to bitter taste. May be crushed if given via tube. Start: 02-27-2018 End: 02-28-2018 senna-docusate (SENNA-S) 8.6 -50 mg per tablet 1 tablet doxylamine succinate 25 mg oral tablet (10 sources) doxylamine (UNIS OM) 25 mg tablet Take by mouth . Active DULoxetine 30 mg delayed release oral capsule (20 sources) Serotonin and Norepinephrine Reuptake Inhibitor Start: 08-06-20 End: 12-04-19 26 take 1 capsule by mouth once daily DULoxetine (Cymbalta) 30 MG capsule Indications: Osteoarthritis, unspecified osteoarthritis type, unspecified site , Anxiety and depression Take 1 (one) capsule (30 mg total) by mouth daily . 30 capsule 3 08/06/2025 12/04/2025 Active Start: 03-13-2021 End: 2022 take 60 mg by mouth twice daily 60 mg, Oral, 2 times d aily, First dose on Tue03/13/21 at 2100 DO NOT CRUSH OR CHEW. Start: 09-15-2016 take 1 capsule by mo [facility] once daily DULoxetine (CYMBALTA) 60 MG capsule Take 1 capsule (60 mg total) by mouth daily. 30 capsule 2 09/15/2016 Active End: 02-27-2018 take 1 capsule by mouth once daily DULoxetine (CYMBALTA) 30 MG capsule Take 30 mg by mouth daily. Active Easivent Holding Chamber (9 sources) Start: 06-18-2015 EASIVENT HOLDI NG CHAMBER inhaler famotidine 40 mg oral tablet (6 sources) Histamine-2 Receptor Antagonist Start: 05-14-2025 End: 05-14-2026 take 1 tablet by mouth once daily famotidine (PEPCID) 40 MG tablet Indications: Nausea TAKE 1 TABLET BY MOUTH DAILY 30 tablet 11 06/10/2025 Active Start: 02-27-2018 End: 02-27-2018 famotidine (PEPCID) tablet 2 0 mg flu vacc [id number],65yr up,-PF (FLUZONE HD) 180 mcg/0.5 mL syringe (20 sources) Start: 08-14-2024 flu vacc [id number],65yr up,-PF (FLUZONE HD) 180 mcg/0.5 mL syringe 0.5 mL 08/14/2024 Active fluticasone propionate 0.05 mg/actuat metered dose nasal spray (2 sources) Corticosteroid Start: 07-12-2024 Fluticasone Pr opionate 50 mcg/actuation spray,suspension Active 1 - 2 NMA INTRANASAL DAILY as needed for nasal congestion July 12, 2024 12:00am Start: 10-26-2023 End: 10-28-2023 take 1 puff(s) by inhalation once daily 1 puff, Inhalation, Daily (RT), First dose on Tue10/26/23 at 0900 furosemide 40 mg oral tablet (20 sources) Loop Diuretic Start: 07-12-2024 Furosemide 40 mg tablet Active 20 mg PO DAILY July 12, 2024 12:00am Start: 06-08-2019 End: 2022 take 20 mg by mouth once daily 20 mg, Oral, Daily, [facility] dose on 03/14/21 at 0900 Start: 04-16-2019 furosemide (LA SIX) 20 mg tablet Take by mouth q 24 HR. 04/16/2019 Active take 0.5 tablet by m outh once daily furosemide (LASIX) 40 MG tablet Take 0.5 (one-half) tablet (20 mg total) by mouth daily . Active take 1 tablet by mattie th once daily furosemide (LASIX) 40 MG tablet Take 1 (one) tablet (40 mg total) by mouth daily . 0 Active take 1 tablet by mattie th twice daily furosemide (LASIX) 40 MG tablet Take 1 (one) tablet (40 mg total) by mouth 2 (two) times a day . 0 Active Comment on above: Take by mouth q 24 H R. gabapentin 300 mg oral capsule (20 sources) Anti-epileptic Agent Start: 08-14-2024 take 1 capsule by mouth every eight hours as needed gabapentin (NEURONTIN) 300 MG capsule Take 1 (one) capsule (300 mg total) by mouth every 8 (eight) hours as needed . 30 capsule 08/14/2024 Active Start: 08-24-2023 End: 09-23-2023 gabapentin (NEURONTIN) 300 M G capsule Take 1 (one) capsule (300 mg total) by mouth every 8 (eight) hours (Days supply per fill: 30) . 90 capsule 0 08/24/2023 Active glucosamine/chondr pabon A sod (OSTEO BI-FLEX ORAL) (20 sources) take 1 tablet by mouth once daily in the morning glucosamine/chondr pabon A sod (OSTEO BI-FLEX ORAL) Take 1 tablet by mouth every morning . 0 take 1 tablet by mattie th once daily in the morning glucosamine/chondr pabon A sod (OSTEO BI-FL EX ORAL) Take 1 tablet by mouth every morning . 0 Active ipratropium bromide 0.2 mg/m l inhalation solution (20 sources) Anticholinergic ipratropium (ATR OVENT) 0.02 % nebulizer solution Inhale 0.5 mg as instructed. Active take 0.5 mg by inhal ation four times daily as needed ipratropium 0.02 % Solution inhalation solution Take 0.5 mg by nebulization 4 times daily. PRN 0 Active Comment on above: Inhale 0.5 mg as ins tructed. iv contrast (will be provided with radiology test) (1 source) Start: 04-22-20 End: 04-23-20 iv contrast (will be provided with radiology test) Indications: Radiculopathy of lumbar region MRI LSP Inject, intravenously, once for 1 dose. No IV access, insert saline lock prior to the beginning of sedation, infusion, injection of imaging exam. Discontinue saline lock post exam. If Pt. has a central line or IVAD, may access for administration according to line specific nursing protocol. Once exam is complete flush line and de-access according to line specific nursing protocol in the MR contrast administration guidelines link. 1 Each 0 04/22/2023 04/23/2023 Active Comment on above: MRI LSP Inject, intr avenously, once for 1 dose. No IV access, insert saline lock prior to the beginning of sedation, infusion, injection of imaging exam. Discontinue saline lock post exam. If Pt. has a central line or IVAD, may access for administration according to line specific nursing protocol. Once exam is complete flush line and de-access according to line specific nursing protocol in the MR contrast administration guidelines link. lisinopril 20 mg oral tablet (20 sources) Angiotensin Converting Enzyme Inhibitor Start: 06-27-20 15 take 1 tablet by mouth twice daily lisinopril (PRINIVIL,ZESTRIL) 20 MG tablet Indications: hypertension Take 20 mg by mouth 2 (two) times a day TAKES 1 TABLET. 06/27/2015 Active Start: 07-02-2008 End: 10-28-2023 take 1 tablet by mouth once daily in the morning lisinopril (PRINIVIL,ZESTRIL) 20 MG tablet Indications: hypertension Take 1 (one) tablet (20 mg total) by mouth every morning Reasons: high blood pressure. 06/27/2015 Active Comment on above: Take one(1) tablet t wo(2) times daily. loratadine 10 mg oral tablet (1 source) Start: 4 take 1 tablet by mouth once daily Loratadine 10 mg tablet Active 10 mg PO DAILY July 12, 2024 12:00am magnesium gluconate 500 mg oral tablet (20 sources) take 1 tablet by mouth once daily magnesium gluconate (MAGONATE) 27.5 mg magne- sium (500 mg) tablet Take 1 (one) tablet (500 mg total) by mouth daily . Active montelukast 10 mg oral tablet (20 sources) Leukotriene Receptor Antagonist Start: 4 take 1 tablet by mouth once daily Montelukast 10 mg tablet Active 10 mg PO DAILY July 12, 2024 12:00am Start: 02-15-2023 End: 10-28-2023 montelukast (SINGULAIR) 10 m g tablet 02/15/2023 Active Start: 03-14-2021 End: 03-14-2021 take 10 mg by mouth once daily 10 mg, Oral, Daily, [facility] dose on 03/14/21 at 0900 Start: 06-08-2019 End: 06-10-2019 take 10 mg by mouth once daily 10 mg, Oral, Daily, [facility]ir [facility] dose on Tue06/08/19 at 2100 [id number] (Multivitamin 50 Plus) Tab (10 sources) multivitamin-min erals-lutein (Multivitamin 50 Plus) Tab Take 1 tablet by mouth daily . Active naloxone hydrochloride 40 mg /ml nasal spray (20 sources) Opioid Antagonist Star t: 10-01 naloxone (NARCAN) 4 mg/actua tion [address] Administer 1 spray into one nostril for known or suspected opioid overdose. If patient worsens or does not respond, may repeat in 2-3 minutes. . 2 each 0 10/28/2023 Active Start: 02-01-2019 naloxone 4 mg/ actuation nasal spray (NARCAN) Narcan 4 mg/actuation nasal spray 0 02/01/2019 Active Start: 02-01-2019 End: 08-24-2023 NARCAN 4 mg/actuation [address] A dminister 1 spray into one nostril for known or suspected opioid overdose. If patient worsens or does not respond, may repeat in 2-3 minutes. . 1 Package 0 02/01/2019 08/24/2023 Discontinued (Stop Taking at Discharge) naloxone (Narcan ) 4 MG/0.1ML 1 spray by Nasal route once. [place] into the nose as directed. Call 911. If no response in 2 minutes use a new nasal spray in other nostril. Repeat until help arrives. If needed. 0 Active Comment on above: Narcan 4 mg/actuatio n nasal spray naloxone (NARCAN) 4 mg/actuation [address] (20 sources) Start: 10-28-20 naloxone (NARCAN) 4 mg/actuation [address] Administer 1 spray into one nostril for known or suspected opioid overdose. If patient worsens or does not respond, may repeat in 2-3 minutes. . 2 each 10/28/2023 Active naloxone 4 mg/actuation nasal spray (NARCAN) (1 source) Start: 02-02-20 19 naloxone 4 mg/actuation nasal spray (NARCAN) Narcan 4 mg/actuation nasal spray 02/01/2019 Active nitrofurantoin, macrocrystals 25 mg / nitrofurantoin, monohydrate 75 mg oral capsule (1 source) Nitrofuran Antibacterial Start: 09-22-20 21 End: 09-27-20 21 take 1 capsule by mouth twice daily nitrofurantoin, macrocrystal-monohyd rate, (Macrobid) 100 MG capsule Take 1 (one) capsule (100 mg total) by mouth 2 (two) times a day for 5 days . 10 capsule 0 09/22/2021 09/27/2021 Active NONFORMULARY (20 sources) take 2 tablets by mouth once daily in the evening NONFORMULARY Take 2 tablets by mouth every evening Equate sleep aide 25mg . 0 take 1 tablet by mattie th once daily as needed NONFORMULARY Take 1 tablet by mouth tuan y as needed Equate stay awake 200mg . 0 take 2 tablets by mo uth once daily in the evening NONFORMULARY Take 2 tablets by mouth zuhair ry evening Equate sleep aide 25mg . 0 Active take 1 tablet by mattie th once daily in the evening NONFORMULARY Take 1 tablet by mouth ever y evening Equate sleep aide 25mg . 0 Active take 1 tablet by mattie th once daily as needed NONFORMULARY Take 1 tablet by mouth tuan y as needed Equate stay awake 200mg . 0 Active nystatin 100 unt/mg topical powder (20 sources) Polyene Antifungal Start: 08-14-2024 End: 08-14-2025 nystatin (MYCOSTATIN) powder Apply topically 2 (two) times a day . 15 g 08/14/2024 08/14/2025 Active ondansetron 4 mg disintegrating oral tablet (20 sources) Serotonin-3 Receptor Antagonist Start: 08-14-2024 apply 1 tablet topically every six hours as needed ondansetron (ZOFRAN-ODT) 4 MG disintegrating tablet Indications: Traumatic fracture of ribs of right side with pneumothorax Dissolve 1 (one) tablet (4 mg total) on top of tongue every 6 (six) hours as needed . 20 tablet 08/14/2024 Active Start: 10-26-2023 End: 10-26-2023 ondansetron (ZOFRAN) injecti on 4 mg Start: 08-18-2023 End: 08-18-2023 ondansetron (ZOFRAN) injecti on Start: 05-06-2023 End: 08-04-2023 take 1 tablet by mouth every six hours as needed for nausea ondansetron (ZOFRAN) 4 MG tablet Take 1 (one) tablet (4 mg total) by mouth every 6 (six) hours as needed for nausea . 20 tablet 0 05/06/2023 08/04/2023 Discontinued (Patient's Request) Start: 03-13-2021 End: 03-13-2021 take 1 tablet by mouth once 4 mg, Oral, Once, 03/13 at 1030, For 1 dose, Pre-Procedure Orally disintegrating tablet: Open blister pack and place tablet on the tongue; tablet is formulated to dissolve on the tongue without water; do not split tablet; if patient unable to tolerate PO ondansetron, okay to give Ondansetron 4mg IV x 1 prn nausea/voming Formulation requires tablet remain in sealed package until immediately prior to dose being administered. Start: 06-08-2019 End: 06-08-2019 ondansetron (ZOFRAN) injecti on 4 mg End: 02-17-2018 ONDANSETRON (ZOFRAN ODT ORAL ) Indications: NAUSEA Take by mouth as needed TAKES 1 TABLET. 02/17/2018 Discontinued ONDANSETRON (ZOF RAN ODT ORAL) Indications: NAUSEA Take by mouth as needed TAKES 1 TABLET. Active ONDANSETRON (ZOF RAN ODT ORAL) Take by mouth as needed. Active ONDANSETRON (ZOF RAN ODT ORAL) Take by mouth as needed. Active pantoprazole 40 mg delayed release oral tablet (20 sources) Proton Pump Inhibitor Start: 05-30-2025 End: 07-29-2025 take 1 tablet by mouth once daily pantoprazole (PROTONIX) 40 MG tablet Take 1 (one) tablet (40 mg total) by mouth daily . 30 tablet 1 05/30/2025 Active Start: 02-24-2018 End: 09-04-2018 pantoprazole (PROTONIX) 40 M G tablet Start: 08-01-2015 End: 11-03-2017 pantoprazole (PROTONIX) 40 M G tablet Indications: gastroesophageal reflux disease , Heartburn Take 40 mg by mouth as needed TAKES 1 TABLET. 08/01/2015 11/03/2017 Discontinued pregabalin 50 mg oral capsule (6 sources) Start: 08-17-2016 take 1 capsule by mouth three times daily pregabalin (LYRICA) 50 MG capsule Take 1 capsule (50 mg total) by mouth 3 (three) times a day. 90 capsule 0 08/17/2016 Active rOPINIRole 2 mg oral tablet (20 sources) Nonergot Dopamine Agonist Start: 07-12-2024 take 1 tablet by mouth three times daily Ropinirole 2 mg tablet Active 2 mg PO THREE TIMES A DAY July 12, 2024 12:00am Start: 10-26-2023 End: 10-28-2023 take 2 mg by mouth three times daily as needed 2 mg, Oral, 3 times daily PRN, restless legs, Starting on Tue10/26/23 at 0528 Start: 03-13-2021 End: 03-14-2021 take 4 mg by mouth once daily 4 mg, Oral, Nightly, Fir [facility] dose on Tue03/13/21 at 2100 Start: 06-08-2019 End: 06-10-2019 take 4 mg by mouth at bedtime 4 mg, Oral, At bedtime, First dose on Tue06/08/19 at 2100 Start: 12-11-2016 rOPINIRole (RE QUIP) 2 MG tablet Indications: restless leg syndrome Take 1.5 (one and a half) tablets (3 mg total) by mouth 3 (three) times a day as needed for restless legs Reasons: restless legs syndrome, an extreme discomfort in the calf muscles when sitting or lying down. 12/11/2016 Active Start: 12-11-2016 take 3 mg by mouth t hree times daily as needed rOPINIRole (REQUIP) 2 MG tablet Indications: restless leg syndrome Take 3 mg by mouth 3 (three) times a day as needed for restless legs Reasons: restless legs syndrome, an extreme discomfort in the calf muscles when sitting or lying down. 12/11/2016 Active Start: 12-11-2016 take 1 tablet by mattie three times daily as needed rOPINIRole (REQUIP) 2 MG tablet Indications: restless leg syndrome Take 1 (one) tablet (2 mg total) by mouth 3 (three) times a day as needed Reasons: restless legs syndrome, an extreme discomfort in the calf muscles when sitting or lying down. 0 12/11/2016 Active Start: 12-11-2016 End: 02-28-2018 take 2-3 tablets by mouth once daily at bedtime rOPINIRole (REQUIP) 2 MG tablet Indications: restless leg syndrome Take 2 mg by mouth nightly Takes 2-3 tabs at bedtime Reasons: restless legs syndrome, an extreme discomfort in the calf muscles when sitting or lying down. 0 12/11/2016 Active Start: 10-26-2016 take 1 tablet by mouth once rO PINIRole (REQUIP) 4 MG tablet Indications: Restless Legs Syndrome Take 1 tablet (4 mg total) by mouth nightly ReasonsRestless Legs Syndrome. 30 tablet 2 10/26/2016 Active take 2 tablets by mo uth every twenty-four hours rOPINIRole (REQUIP) 1 mg tablet Take 2 tablets by mouth q 24 HR. Active take 2 tablets by mo uth once daily in the evening ropinirole 1 MG PO TABS Indications: Dyspnea , Nodule of left lung , Hilar lymphadenopathy Take 2 tablets by mouth every evening. 0 Active Comment on above: Take 2 tablets by mo uth q 24 HR. sertraline 50 mg oral tablet (20 sources) Serotonin Reuptake Inhibitor Start: 07-12-2024 take 2 tablets by mouth once daily Sertraline 50 mg tablet Active 100 mg PO DAILY July 12, 2024 12:00am Start: 10-26-2023 End: 10-28-2023 take 50 mg by mouth once daily in the morning 50 mg, Oral, Every morning, First dose on Tue10/26/23 at 0900 Start: 04-13-2021 End: 2022 sertraline (ZOLOFT) 50 MG ta blet Start: 06-08-2019 End: 06-10-2019 take 100 mg by mouth once daily 100 mg, Oral, Daily, F irst dose on Tue06/08/19 at 1615 Start: 08-18-2018 End: 06-08-2019 sertraline (ZOLOFT) 50 MG ta blet Start: 07-29-2015 End: 02-26-2021 take 1 tablet by mouth once, then take 1 tablet by mouth sertraline (ZOLOFT) 100 MG tablet Indications: DEPRESSION WITH NERVE PAIN Take 1 tablet by mouth nightly TAKES 1 TABLET. 07/29/2015 11/03/2017 Discontinued sertraline (ZOLO FT) 100 mg tablet Take by mouth q 24 HR. Active Comment on above: Take by mouth q 24 H R. sotalol hydrochloride 80 mg oral tablet (6 sources) Antiarrhythmic Start: 07-02-2008 SOTALOL 80 MG TAB Take one(1) tablet three times daily. 0 07/02/2008 Active Comment on above: Take one(1) tablet t hree times daily. SUMAtriptan 100 mg oral tablet (20 sources) Serotonin-1b and Serotonin-1d Receptor Agonist Start: 07-12-2024 Sumatriptan Succinate 100 mg tablet Active 100 mg PO DIRECTED as needed for migraine headache July 12, 2024 12:00am Start: 07-02-2008 End: 08-04-2023 SUMAtriptan (IMITREX) 100 mg tablet Take 100 mg by mouth. 11/02/2017 Active Comment on above: Take 100 mg by mouth . as necessary traZODone hydrochloride 50 mg oral tablet (20 sources) Serotonin Reuptake Inhibitor Start: 09-15-2018 End: 08-04-2023 traZODone (DESYREL) 50 mg tablet Take 50 mg by mouth. 09/15/2018 Active take 1 tablet by mouth once tuan y traZODone (DESYREL) 100 MG tablet Take 100 mg by mouth nightly. Active Comment on above: Take 50 mg by mouth. trospium chloride 20 mg oral tablet (9 sources) Cholinergic Muscarinic Antagonist Start: 02-11-2022 End: 02-11-2023 take 1 tablet by mouth twice daily trospium (SANCTURA) 20 mg tablet Take 1 (one) tablet (20 mg total) by mouth 2 (two) times a day . 180 tablet 3 02/11/2022 02/11/2023 Active Completed/Discontinued Medications Medication Drug Class(es) Dates Sig (Normalized) Sig (Original) acetaminophen 325 mg oral tablet (20 sources) Start: 08-14-2024 End: 08-24-2024 take 3 tablets by mouth every six hours acetaminophen (TYLENOL) 325 MG tablet Take 3 (three) tablets (975 mg total) by mouth every 6 (six) hours for 10 days . 30 tablet 08/14/2024 08/24/2024 Start: 10-26-2023 End: 10-28-2023 take 1 tablet by mouth every four hours as needed for pain and headache 650 mg, Oral, Every 4 hours PRN, mild pain, fever 100.4 F or greater, headaches, Starting on Tue10/26/23 at 0528 Start: 08-24-2023 End: 09-03-2023 take 3 tablets by mouth every six hours as needed acetaminophen (TYLENOL) 325 MG tablet Take 3 (three) tablets (975 mg total) by mouth every 6 (six) hours as needed . 30 tablet 0 08/24/2023 09/03/2023 Start: 02-28-2018 End: 03-30-2018 take 2 tablets by mouth every six hours acetaminophen (TYLENOL) 325 MG tablet Take 2 (two) tablets (650 mg total) by mouth every 6 (six) hours Take for 5 days, then as needed. Taking this medication can help decrease your need for opioid pain medications and their side effects.. 80 tablet 0 02/28/2018 03/30/2018 Active Start: 02-27-2018 End: 02-28-2018 take 2 tablets by mouth every six hours acetaminophen (TYLENOL) tablet 650 mg albuterol 0.833 mg/ml / ipratropium bromide 0.167 mg/ml inhalation solution (20 sources) Anticholinergic, beta2-Adrenergic Agonist Start: 03-31-2021 End: 08-04-2023 ipratropium-albuteroL (DUO-NEB) 0.5-2.5 mg/3 ml nebulizer Indications: COPD, severe (HCC) Take 3 mL by nebulization every 6 (six) hours as needed for wheezing or shortness of breath . 360 mL 0 03/31/2021 08/04/2023 Discontinued (Patient's Request) Start: 03-23-2021 End: 03-23-2021 ipratropium-albuteroL (DUO-N EB) 0.5-2.5 mg/3 ml nebulizer solution 3 mL Start: 03-13-2021 End: 03-14-2021 take 3 mL by inhalation four times daily 3 mL, Inhalation, 4 times daily (RT), First dose on Tue03/13/21 at 1600 aluminum hydroxide 40 mg/ml / magnesium hydroxide 40 mg/ml / simethicone 4 mg/ml oral suspension (3 sources) Start: 10-26-2023 End: 10-28-2023 take 30 mL by mouth every four hours as needed 30 mL, Oral, Every 4 hours PRN, indigestion, Starting on Tue10/26/23 at 0528 Start: 03-13-2021 End: 03-14-2021 take 30 mL by mouth every four hours as needed 30 mL, Oral, Every 4 hours PRN, indigestion, Starting Tue03/13/21 at 1505 Start: 02-27-2018 End: 02-28-2018 take 30 mL by mouth every four hours as needed aluminum-magnesium hydroxide-simethicone (MAALOX PLUS) 200-200-20 mg/5 mL suspension 30 mL apixaban 5 mg oral tablet (20 sources) Factor Xa Inhibitor Start: 10-27-2023 End: 10-28-2023 apixaban (ELIQUIS) tablet 5 mg Start: 08-31-2023 End: 10-25-2023 apixaban (ELIQUIS) 5 mg Tab Indications: PE (pulmonary thromboembolism) (HCC) [The details of the medication are not available because there are pending changes by a home health clinician.] 60 tablet 2 08/31/2023 10/25/2023 Discontinued (Error) Start: 08-31-2023 apixaban (ELIQ UIS) 5 mg Tab Indications: PE (pulmonary thromboembolism) (HCC) Start: 08/31/23 tablet 2 08/31/2023 Active Start: 08-31-2023 End: 08-30-2023 apixaban (ELIQUIS) 5 mg Tab Indications: PE (pulmonary thromboembolism) (HCC) Start: 08/31/23 tablet 2 08/31/2023 08/30/2023 Discontinued (Reorder (Suppress CancelRx Message to Pharmacy)) Start: 08-31-2023 apixaban (ELIQ UIS) 5 mg Tab Indications: PE (pulmonary thromboembolism) (HCC) Start: 08/31/23 60 tablet 2 08/31/2023 Active Start: 08-31-2023 apixaban (ELIQ UIS) 5 mg Tab Indications: PE (pulmonary thromboembolism) (HCC) Start: 08/31/23 tablet 2 08/31/2023 Active Start: 08-31-2023 apixaban (ELIQ UIS) 5 mg Tab Indications: PE (pulmonary thromboembolism) (HCC) Start: 08/31/23 tablet 2 08/31/2023 Active Start: 08-31-2023 apixaban (ELIQ UIS) 5 mg Tab Indications: PE (pulmonary thromboembolism) (HCC) Start: 08/31/23 tablet 2 08/31/2023 Active Start: 08-31-2023 apixaban (ELIQ UIS) 5 mg Tab Indications: PE (pulmonary thromboembolism) (HCC) Start: 08/31/23 tablet 2 08/31/2023 Active Start: 08-31-2023 apixaban (ELIQ UIS) 5 mg Tab Indications: PE (pulmonary thromboembolism) (HCC) Start: 08/31/23 tablet 2 08/31/2023 Active Start: 08-31-2023 End: 08-25-2023 apixaban (ELIQUIS) 5 mg Tab Start: 08/31/23. 60 tablet 2 08/31/2023 08/25/2023 Discontinued (Reorder (Suppress CancelRx Message to Pharmacy)) Start: 08-31-2023 apixaban (ELIQ UIS) 5 mg Tab Indications: PE (pulmonary thromboembolism) (HCC) Start: 08/31/23. 60 tablet 2 08/31/2023 Active Start: 08-24-2023 End: 08-31-2023 take 2 tablets by mouth twice daily apixaban (ELIQUIS) 5 mg Tab Indications: PE (pulmonary thromboembolism) (HCC) Take 2 (two) tablets (10 mg total) by mouth 2 (two) times a day for 6 days, continued through 08/30/23. 26 tablet 0 08/25/2023 Active aspirin 81 mg chewable tablet (20 sources) Nonsteroidal Anti-inflammatory Drug Start: 05-06-2023 End: 06-05-2023 aspirin 81 mg chewable tablet Chew and Swallow 1 (one) tablet (81 mg total) daily . 30 tablet 0 05/06/2023 06/05/2023 Start: 02-27-2018 End: 03-30-2018 take 1 tablet by mouth twice daily aspirin (ECOTRIN) 325 MG EC tablet Take 1 (one) tablet (325 mg total) by mouth 2 (two) times a day Take for 30 days to prevent blood clots. 60 tablet 0 02/28/2018 03/30/2018 Active take 1 tablet by mattie once daily aspirin 81 MG EC tablet Take 1 (one) tablet (81 mg total) by mouth daily . Active atropine sulfate 0.025 mg / diphenoxylate hydrochloride 2.5 mg oral tablet (5 sources) Anticholinergic, Cholinergic Muscarinic Antagonist, Antidiarrheal End: 06-08-2019 diphenoxylate-atropine (LOMOTIL) 2.5-0.025 mg per tablet 2 Unspecified . 0 06/08/2019 Discontinued (Error) benzonatate 100 mg oral capsule (1 source) Non-narcotic Antitussive Start: 10-26-2023 End: 10-28-2023 take 100 mg by mouth three times daily as needed for cough 100 mg, Oral, 3 times daily PRN, cough, Starting on Tue10/26/23 at 0528 DO NOT CRUSH OR CHEW. bisacodyl 10 mg rectal suppository (2 sources) Stimulant Laxative Start: 03-13-2021 End: 03-14-2021 take 10 mg rectal route once daily as needed for constipation 10 mg, Rectal, Daily PRN, constipation, Starting Tue03/13/21 at 1505 Try oral meds first. Reserv e rectal route for when oral meds are ineffective, not tolerated, or not ordered. Start: 02-27-2018 End: 02-28-2018 bisacodyl (DULCOLAX) supposi tory 10 mg Budesonide / formoterol (20 sources) Corticosteroid, beta2-Adrenergic Agonist Start: 06-08-2019 End: 06-10-2019 take 2 puff(s) by inhalation twice daily 2 puff, Inhalation, 2 times daily (RT), First dose on Tue06/08/19 at 2000 SPACER REQUIRED FOR ADMINISTRATION Start: 06-12-2018 take 2 puff(s) by mo ut twice daily budesonide-formoterol (SYMBICORT) 160-4.5 mcg/puff Aerosol inhaler Indications: Chronic obstructive pulmonary disease, unspecified COPD type , Moderate persistent asthma without complication Inhale 2 puffs 2 times daily. Rinse mouth after use 1 Inhaler 06/12/2018 Active Start: 02-27-2018 End: 02-28-2018 Start: 07-30-2016 End: 02-23-2018 budesonide-formoterol (SYMBI JOÃO) 80-4.5 mcg/actuation inhaler Inhale 2 puffs 2 (two) times a day. 1 Inhaler 3 07/30/2016 02/23/2018 Discontinued Start: 07-30-2016 take 2 puff(s) by in halation twice daily budesonide-formoterol (SYMBICORT) 80-4.5 mcg/actuation inhaler Inhale 2 puffs 2 (two) times a day. 1 Inhaler 3 07/30/2016 Active End: 08-04-2023 budesonide-formoteroL (SYMBI JOÃO) 80-4.5 mcg/actuation inhaler 1 (one) puff . 0 08/04/2023 Discontinued (Patient's Request) budesonide-formo teroL (SYMBICORT) 80-4.5 mcg/actuation inhaler 1 (one) puff . 0 Active budesonide-formo teroL (SYMBICORT) 80-4.5 mcg/actuation inhaler 1 puff . 0 Active End: 02-26-2021 take 2 puff(s) by inhalation twice daily budesonide-formoterol (SYMBICORT) 160-4.5 mcg/actuation inhaler Inhale 2 puffs 2 (two) times a day. 0 02/26/2021 Discontinued (Patient's Request) take 2 puff(s) by in halation twice daily budesonide-formoterol (SYMBICORT) 160-4.5 mcg/actuation inhaler Inhale 2 puffs 2 (two) times a day. 0 Active budesonide-formo terol (SYMBICORT) 160-4.5 mcg/actuation inhaler Inhale 2 puffs 2 (two) times a day. Active bupivacaine hydrochloride 5 mg/ml injectable solution (14 sources) Amide Local Anesthetic Start: 03-30-2023 End: 03-30-2023 bupivacaine (MARCAINE) 0.5 % injection 1 mL Start: 02-22-2023 End: 02-22-2023 bupivacaine (MARCAINE) 0.5 % injection 1 mL Start: 12-27-2022 End: 12-27-2022 bupivacaine (MARCAINE) 0.5 % injection 1 mL Start: 12-03-2022 End: 12-03-2022 bupivacaine (MARCAINE) 0.5 % injection 1 mL Start: 10-04-2022 End: 10-04-2022 bupivacaine (MARCAINE) 0.5 % injection 1 mL Start: 06-24-2022 End: 06-24-2022 bupivacaine (MARCAINE) 0.5 % injection 1 mL calcium chloride 0.0014 meq/ ml / potassium chloride 0.004 meq/ml / sodium chloride 0.103 meq/ml / sodium lactate 0.028 meq/ml injectable solution (4 sources) Start: 08-18-2023 End: 08-18-2023 lactated Ringers infusion Start: 03-13-2021 End: 03-14-2021 take 25 mL intravenously every hour 25 mL/hr, Intravenous, Continuous, Starting Tue03/13/21 at 1500, PACU (only) Use if patient already has Lactated Ringers Start: 02-27-2018 End: 02-28-2018 lactated Ringers infusion carvedilol 25 mg oral tablet (1 source) alpha-Adrenergic Geraldine, beta-Adrenergic Geraldine Start: 07-02-2008 End: 04-18-2023 carvedilol(COREG 25 MG TAB) Take one(1) tablet twice daily. 0 07/02/2008 04/18/2023 Discontinued Comment on above: Take one(1) tablet t wice daily. ceFAZolin 2000 mg injection (3 sources) Cephalosporin Antibacterial Start: 08-18-2023 End: 08-18-2023 ceFAZolin (ANCEF) IVPB 2 g (premix) Start: 03-13-2021 End: 03-14-2021 take 2000 mg intravenously every eight hours 2,000 mg, Intravenous, at 100 mL/hr, Every 8 hours, First dose on Tue03/13/21 at 2000, For 2 doses Starting 8 hours after pre-procedure dose x 2 doses. Indication (POST PROCEDURE): Neurology Start: 02-27-2018 End: 02-28-2018 take 2000 mg intravenous route every eight hours ceFAZolin (ANCEF) IVPB 2 g (premix) cephalexin 500 mg oral capsule (13 sources) Cephalosporin Antibacterial Start: 02-24-2018 End: 06-08-2019 cephALEXin (KEFLEX) 500 MG capsule chlorthalidone 25 mg oral tablet (5 sources) Thiazide-like Diuretic Start: 06-09-2015 End: 10-28-2017 take 1 tablet by mouth once daily, then take 1 tablet by mouth chlorthalidone (HYGROTEN) 25 MG tablet Indications: hypertension Take 1 tablet by mouth daily TAKES 1 TABLET. 06/09/2015 10/28/2017 Discontinued cinnamon bark 500 mg oral capsule (5 sources) End: 06-08-2019 cinnamon bark 500 mg capsule daily . 0 06/08/2019 Discontinued (Error) cloNIDine hydrochloride 0.1 mg oral tablet (6 sources) Central alpha-2 Adrenergic Agonist Start: 07-02-2008 End: 04-18-2023 CLONIDINE 0.1 MG TAB Take one(1) tablet daily. 0 07/02/2008 04/18/2023 Discontinued Comment on above: Take one(1) tablet d aily. cyclobenzaprine hydrochloride 10 mg oral tablet (20 sources) Muscle Relaxant Start: 10-26-2023 End: 10-28-2023 take 1 tablet by mouth every eight hours as needed 5 mg, Oral, Every 8 hours PRN, muscle spasms, Starting on Tue10/26/23 at 0528 Do not administer if patient has POSS of 3 or 4, or RASS of -3, -4, or -5. Start: 09-07-2023 take 1 tablet by mattie three times daily as needed cyclobenzaprine (FLEXERIL) 5 MG tablet Take 1 (one) tablet (5 mg total) by mouth Three times daily as needed . 0 09/07/2023 Active Start: 08-24-2023 End: 09-03-2023 take 1 tablet by mouth every eight hours as needed cyclobenzaprine (FLEXERIL) 5 MG tablet Take 1 (one) tablet (5 mg total) by mouth every 8 (eight) hours as needed for muscle spasms . 30 tablet 0 08/24/2023 09/03/2023 Start: 03-13-2021 End: 03-24-2021 take 1 tablet by mouth every eight hours as needed cyclobenzaprine (FLEXERIL) 10 MG tablet Take 1 (one) tablet (10 mg total) by mouth every 8 (eight) hours as needed for muscle spasms . 30 tablet 0 03/14/2021 03/24/2021 Active End: 2022 cyclobenzaprine (FLEXERIL) 5 MG tablet 1 Unspecified . 0 2022 Discontinued (Patient's Request) dexamethasone phosphate 10 mg/ml injectable solution (15 sources) Corticosteroid Start: 08-18-2023 End: 08-18-2023 dexAMETHasone (DECADRON) injection Start: 03-30-2023 End: 03-30-2023 dexAMETHasone (DECADRON) inj ection 4 mg Start: 02-22-2023 End: 02-22-2023 dexAMETHasone (DECADRON) inj ection 4 mg Start: 12-27-2022 End: 12-27-2022 dexAMETHasone (DECADRON) inj ection 4 mg Start: 12-03-2022 End: 12-03-2022 dexAMETHasone (DECADRON) inj ection 4 mg Start: 06-24-2022 End: 06-24-2022 dexAMETHasone (DECADRON) inj ection 4 mg Start: 03-23-2021 End: 03-23-2021 dexamethasone (DECADRON) inj ection 10 mg Start: 02-28-2018 End: 02-28-2018 dexamethasone (DECADRON) inj ection 8 mg diazePAM 5 mg oral tablet (1 source) Benzodiazepine Start: 06-08-2019 End: 06-08-2019 diazePAM (VALIUM) tablet 5 mg digoxin 0.125 mg oral tablet (1 source) Cardiac Glycoside Start: 07-02-2008 End: 04-18-2023 DIGOXIN 125 MCG TAB Take one(1) tablet daily. 0 07/02/2008 04/18/2023 Discontinued Comment on above: Take one(1) tablet d aily. diphenhydrAMINE hydrochloride 25 mg oral tablet (11 sources) Histamine-1 Receptor Antagonist Start: 03-13-2021 End: 03-14-2021 take 50 mg by mouth once daily as needed 50 mg, Oral, Nightly PRN, itching, Starting Tue03/13/21 at 1505 diphenhydrAMINE (BENADRYL) 25 mg capsule Take 1 (one) capsule to 2 (two) capsules (25-50 mg total) by mouth at bedtime . Active take 2 tablets by mo ut once daily as needed diphenhydrAMINE (BENADRYL) 25 mg tablet Take 50 mg by mouth nightly as needed for itching . 0 Active EASIVENT HOLDING CHAMBER inh aler (16 sources) Start: 06-18-2015 End: 06-08-2019 EASIVENT HOLDING CHAMBER inhaler Start: 06-18-2015 EASIVENT HOLDI NG CHAMBER inhaler 0.4 ml enoxaparin sodium 100 mg/ml prefilled syringe (1 source) Low Molecular Weight Heparin Start: 06-08-2019 End: 06-10-2019 inject 40 mg by subcutaneous injection once daily 40 mg, Subcutaneous, Daily, First dose on Tue06/08/19 at 2000 Administer in abdomen unless otherwise directed by prescriber. Notify physician if patient refuses. estradiol 1 mg oral tablet (1 source) Estrogen Start: 07-02-2008 End: 04-18-2023 estradiol(ESTRACE 1 MG TAB) Take one(1) tablet daily. 0 07/02/2008 04/18/2023 Discontinued Comment on above: Take one(1) tablet d aily. 1 ml fentaNYL 0.05 mg/ml injection (1 source) Opioid Agonist Start: 08-18-2023 End: 08-18-2023 fentaNYL (SUBLIMAZE) injection ferrous gluconate 324 mg oral tablet (1 source) Start: 07-02-2008 End: 04-18-2023 FERROUS GLUCONATE 324 MG (36 MG IRON) TAB Take one(1) tablet daily. 0 07/02/2008 04/18/2023 Discontinued Comment on above: Take one(1) tablet d aily. ferrous sulfate 325 mg oral tablet (5 sources) Start: 12-09-2015 End: 10-28-2017 take 1 tablet by mouth once daily at breakfast ferrous sulfate 325 (65 FE) MG tablet Take 1 tablet (325 mg total) by mouth daily with breakfast. 30 tablet 5 12/09/2015 10/28/2017 Discontinued gadoterate meglumine (DOTAREM) injection 17 mL (1 source) Start: 10-22-2019 End: 10-22-2019 gadoterate meglumine (DOTAREM) injection 17 mL Garlic preparation (5 sources) Non-Standardized Food Allergenic Extract End: 06-08-2019 garlic 1,000 mg cap daily . 0 06/08/2019 Discontinued (Error) garlic 1,000 mg cap daily . 0 Active garlic 1,000 mg cap daily . 0 Active 1 ml haloperidol 5 mg/ml prefilled syringe (1 source) Typical Antipsychotic Start: 03-13-2021 End: 03-13-2021 take 1 mg intravenously every twenty-four hours as needed 1 mg, Intravenous, Once as needed, Nausea or vomiting, Starting Tue03/13/21 at 1408, For 1 dose, PACU (only) Administer if ondansetron (Zofran), promethazine (Phenergan), metoclopromide (REGLAN), prochlorperazine (COMPAZINE) ineffective/not ordered, or as directed by anesthesia, as needed for nausea/vomiting May cause QT interval prolongation. 1 ml hydrALAZINE hydrochlorid e 20 mg/ml injection (1 source) Arteriolar Vasodilator Start: 06-08-2019 End: 06-10-2019 take 10 mg intravenous route every two hours as needed hydrALAZINE (APRESOLINE) injection 10 mg hydroCHLOROt hiazide 25 mg oral tablet (20 sources) Thiazide Diuretic Start: 06-08-2019 End: 02-26-2021 take 25 mg by mouth once daily 25 mg, Oral, Daily, First dose on Tue06/08/19 at 1615 1 ml HYDROmorphon e hydrochlorid e 1 mg/ml injection (13 sources) Opioid Agonist Start: 10-26-2023 End: 10-27-2023 take 1 mg intravenously every three hours as needed HYDROmorphone (DILAUDID) injection 1 mg Start: 10-26-2023 End: 10-28-2023 take 0.5 mg intravenously every three hours as needed HYDROmorphone (DILAUDID) injection 0.5 mg Start: 08-18-2023 End: 08-18-2023 HYDROmorphone (DILAUDID) inj ection Start: 03-13-2021 End: 03-14-2021 take 4-6 mg by mouth every four hours as needed 4-6 mg, Oral, Every 4 hours PRN, moderate to severe pain, Starting Tue03/13/21 at 1505 Initiate with 4 mg every 4 hours prn moderate to severe pain. For unrelieved pain, may give additional 2 mg within 60 minutes of initial dose. If pain is RELIEVED after repeat dose, change to 6 mg every 4 hours prn moderate to severe pain. If pain is UNrelieved after repeat dose or patient requires dose reduction, call physician. Start: 01-22-2019 End: 06-10-2019 take 1 tablet by mouth once daily, then take 7 tablets by mouth HYDROmorphone 16 mg Tb24 Indications: Postlaminectomy syndrome of lumbar region Take 1 (one) tablet (16 mg total) by mouth once daily (Days supply per fill: 7) M96.1 . 30 tablet 0 01/22/2019 06/10/2019 Discontinued (Stop Taking at Discharge) Start: 02-27-2018 End: 02-28-2018 take 0.25-0.5 mg intravenous route every three hours as needed HYDROmorphone (DILAUDID) 0.5 mg/mL injection 0.25-0.5 mg take 1 tablet by [facility] four times daily HYDROmorphone (DILAUDID) 4 MG tablet Take 4 mg by mouth 4 (four) times a day . 0 Active hydrOXYzine hydrochloride 25 mg oral tablet (1 source) Antihistamine Start: 02-27-2018 End: 02-27-2018 hydrOXYzine (ATARAX) tablet 25 mg Start: 02-27-2018 End: 02-27-2018 hydrOXYzine (ATARAX) tablet 25 mg ibuprofen 400 mg oral tablet (20 sources) Nonsteroidal Anti-inflammatory Drug Start: 06-08-2019 End: 06-10-2019 take 1 tablet by mouth every six hours as needed ibuprofen (ADVIL,MOTRIN) tablet 800 mg Start: 05-26-2018 End: 02-26-2021 take 1 tablet by mouth twice daily ibuprofen (ADVIL,MOTRIN) 800 MG tablet Take 1 (one) tablet (800 mg total) by mouth 2 (two) times a day. 60 tablet 1 05/26/2018 02/26/2021 Discontinued (Patient's Request) End: 02-26-2021 take 1 tablet by mouth every six hours as needed ibuprofen (ADVIL,MOTRIN) 200 MG tablet Take 200 mg by mouth every 6 (six) hours as needed for pain . 0 02/26/2021 Discontinued (Patient's Request) influenza a virus a/[place]/04/2009 (h1n1) antigen 0.03 mg/ml / influenza a virus a/[id number] (h3n2) antigen 0.03 mg/ml / influenza b virus b/[place] antigen 0.03 mg/ml / influenza b virus b/[facility] antigen 0.03 mg/ml injectable suspension (10 sources) End: 02-23-2018 flu vaccine qs 2014 (FLUZONE QUAD) injection Indications: Need for influenza vaccination Sign this order in conjunction with the immunization order to satisfy [place] Board [employer] Pharmacy Positive ID requirements for immunization orders. 0.5 mL 0 02/23/2018 Discontinued iopamidoL (ISOVUE-370) 370 m g iodine /mL (76 %) injection 75 mL (1 source) Start: 10-26-2023 End: 10-26-2023 iopamidoL (ISOVUE-370) 370 mg iodine /mL (76 %) injection 75 mL 1 ml ketorolac tromethamine 30 mg/ml injection (5 sources) Nonsteroidal Anti-inflammatory Drug, Cyclooxygenase Inhibitor End: 06-08-2019 ketorolac (TORADOL) 30 mg/mL (1 mL) injection 1 mL every 6 (six) hours . 0 06/08/2019 Discontinued (Error) ketorolac (TORADOL) injectio n 30 mg (1 source) Start: 02-27-2018 End: 02-28-2018 ketorolac (TORADOL) injection 30 mg levoFLOXacin 500 mg oral tablet (5 sources) Quinolone Antimicrobial End: 06-08-2019 take 1 tablet by mouth every twenty-four hours levoFLOXacin (LEVAQUIN) 500 MG tablet 1 Unspecified daily . 0 06/08/2019 Discontinued (Error) lidocaine 0.04 mg/mg medicated patch (20 sources) Antiarrhythmic, Amide Local Anesthetic Start: 08-15-2024 End: 08-25-2024 apply 1 dose transdermal route once daily, then apply 1 dose transdermal route every twelve hours lidocaine 4 % patch Place 1 (one) patch on the skin daily Remove & Discard patch within 12 hours or as directed by MD for 10 days Start: 08/15/24. 10 patch 08/15/2024 08/25/2024 Start: 10-26-2023 End: 11-28-2023 apply 1 dose transdermal route once daily, then apply 1 dose transdermal route every twelve hours lidocaine 4 % patch Place 1 (one) patch on the skin daily Remove & Discard patch within 12 hours or as directed by MD Start: 10/29/23. 30 patch 0 10/29/2023 11/28/2023 Active Start: 08-18-2023 End: 08-18-2023 lidocaine 20 mg/mL (2 %) inj ection Start: 03-30-2023 End: 03-30-2023 Lidocaine (XYLOCAINE) 10 mg/ mL injection 4 mL Start: 02-22-2023 End: 02-22-2023 Lidocaine (XYLOCAINE) 10 mg/ mL injection 1 mL Start: 12-27-2022 End: 12-27-2022 Lidocaine (XYLOCAINE) 10 mg/ mL injection 1 mL Start: 12-03-2022 End: 12-03-2022 Lidocaine (XYLOCAINE) 10 mg/ mL injection 4 mL Start: 10-04-2022 End: 10-04-2022 lidocaine (XYLOCAINE) 10 mg/ mL injection 4 mL Start: 06-24-2022 End: 06-24-2022 lidocaine (XYLOCAINE) 10 mg/ mL injection 4 mL Start: 02-27-2018 End: 02-28-2018 lidocaine (LIDOD ERM) 5 % patch Place 1 patch on the skin as needed Remove & Discard patch within 12 hours or as directed by MD . Active lidocaine (LIDOD ERM) 5 % patch Place 1 patch on the skin daily Remove & Discard patch within 12 hours or as directed by MD . Active End: 11-03-2017 LIDOCAINE (LIDODERM TOP) Indications: low back Apply topically as needed APPLIES NEEDED. 11/03/2017 Discontinued LIDOCAINE (LIDOD ERM TOP) Indications: low back Apply topically as needed APPLIES NEEDED. Active LIDOCAINE (LIDOD ERM TOP) Indications: low back Apply topically as needed Reasonslow back Active magnesium hydroxide 80 mg/ml oral suspension (2 sources) Start: 03-13-2021 End: 03-14-2021 take 2400 mg by mouth once daily as needed for constipation 2,400 mg (30 mL), Oral, Daily PRN, constipation, constipation, Starting Tue03/13/21 at 1505 Start: 02-27-2018 End: 02-28-2018 magnesium hydroxide (MOM) 40 0 mg/5 mL suspension 2,400 mg meclizine hydrochloride 25 mg oral tablet (20 sources) Antiemetic Start: 06-08-2019 End: 06-10-2019 take 12.5 mg by mouth three times daily as needed for dizziness 12.5 mg, Oral, 3 times daily PRN, dizziness, Starting Tue06/08/19 at 1529 Start: 06-08-2019 End: 2022 take 1 tablet by mouth every six hours meclizine (ANTIVERT) 25 mg tablet Take 1 (one) tablet (25 mg total) by mouth every 6 (six) hours for 5 days . 20 tablet 0 06/10/2019 2022 Discontinued (Therapy completed) meclizine (ANTIV ERT) 12.5 mg tablet Indications: vertigo Take 25 mg by mouth 2 (two) times a day. 1-2 tablets every 6-12 hours as needed Indications: sensation of spinning or whirling Active melatonin 3 mg oral tablet (20 sources) Start: 10-26-2023 End: 10-28-2023 take 3 mg by mouth once daily as needed for sleep 3 mg, Oral, Nightly PRN, Sleep, Starting on Tue10/26/23 at 0528 Start: 03-13-2021 End: 08-04-2023 take 5 mg by mouth once daily 5 mg, Oral, Nightly, Fir st dose on Tue03/13/21 at 2100 Melatonin 5 mg c ap Take 5 mg by mouth. Active Comment on above: Take 5 mg by mouth. meloxicam 7.5 mg oral tablet (19 sources) Nonsteroidal Anti-inflammatory Drug End: 2022 take 1 tablet by mouth once daily as needed meloxicam (MOBIC) 7.5 MG tablet Take 1 (one) tablet (7.5 mg total) by mouth daily as needed . 0 08/24/2023 Discontinued (Stop Taking at Discharge) 1 ml meperidine hydrochloride 50 mg/ml injection (1 source) Opioid Agonist Start: 2017 End: 2017 meperidine (DEMEROL) injection 12.5 mg methylPREDNISolone 4 mg oral tablet (7 sources) Corticosteroid Start: 2022 End: 2022 take 1 tablet by mouth twice daily, then take 1 tablet by mouth once daily methylPREDNISolone (MEDROL) 4 MG tablet Take 1 (one) tablet (4 mg total) by mouth 2 (two) times a day for 1 day, THEN 1 (one) tablet (4 mg total) daily for 1 day. 3 tablet 0 06/01/2023 06/03/2023 Start: 06-01-2023 End: 06-02-2023 take 1 tablet by mouth once daily methylPREDNISolone (MEDROL) 4 MG tablet Take 1 (one) tablet (4 mg total) by mouth daily for 1 day . 1 tablet 0 06/01/2023 06/02/2023 Start: 11-02-2017 methylPREDNISo lone (MEDROL DOSEPACK) 4 mg tablet follow package directions. 21 tablet 0 11/02/2017 Active Start: 08-29-2017 End: 10-28-2017 methylPREDNISolone (MEDROL D OSEPACK) 4 mg tablet follow package directions. 21 tablet 0 08/29/2017 10/28/2017 Discontinued Start: 08-29-2017 methylPREDNISo lone (MEDROL DOSEPACK) 4 mg tablet follow package directions. 21 tablet 0 08/29/2017 Active 5 ml midazolam 1 mg/ml injection (2 sources) Benzodiazepine Start: 03-13-2021 End: 03-13-2021 midazolam (VERSED) injection 2 mg Start: 02-27-2018 End: 02-27-2018 midazolam (VERSED) injection 2 mg 24 hr mirabegron 25 mg extended release oral tablet (15 sources) beta3-Adrenergic Agonist End: 08-04-2023 mirabegron (MYRBETRIQ) 25 mg Tb24 Take by mouth . 0 08/04/2023 Discontinued (Patient's Request) mirtazapine 15 mg disintegrating oral tablet (20 sources) Start: 11-27-2019 End: 2022 apply 1 tablet topically once daily mirtazapine (REMERON RODRIGO-TAB) 15 MG disintegrating tablet Dissolve 1 (one) tablet (15 mg total) on top of tongue nightly . 30 tablet 0 11/27/2019 2022 Discontinued (Patient's Request) 1 ml morphine sulfate 2 mg/ml cartridge (4 sources) Opioid Agonist Start: 10-26-2023 End: 10-27-2023 take 2 mg intravenously every two hours as needed morphine injection 2 mg Start: 01-27-2019 End: 06-10-2019 take 1 tablet by mouth twice daily morphine (MS CONTIN) 30 MG 12 hr tablet Indications: Primary osteoarthritis involving multiple joints Take 1 (one) tablet (30 mg total) by mouth 2 (two) times a day (Days supply per fill: 30) M15.9 Start: 01/27/19. 60 tablet 0 01/27/2019 06/10/2019 Discontinued (Stop Taking at Discharge) naloxone (NARCAN) injection 0.1 mg (3 sources) Start: 10-26-2023 End: 10-28-2023 naloxone (NARCAN) injection 0.1 mg Start: 03-13-2021 End: 03-14-2021 naloxone (NARCAN) injection 0.1 mg Start: 02-27-2018 End: 02-28-2018 naloxone (NARCAN) injection 0.1 mg omega-3 fatty acids/vitamin e(FISH OIL 1,000 MG CAP) (1 source) Start: 07-02-2008 End: 04-18-2023 omega-3 fatty acids/vitamin e(FISH OIL 1,000 MG CAP) Take one(1) tablet daily. 0 07/02/2008 04/18/2023 Discontinued Comment on above: Take one(1) tablet d aily. omeprazole 40 mg delayed release oral capsule (20 sources) Proton Pump Inhibitor Start: 09-04-2018 End: 2022 take 1 capsule by mouth once daily omeprazole (PRILOSEC) 40 MG capsule Indications: Laryngeal pachyderma , Gastroesophageal reflux disease, esophagitis presence not specified Take 1 (one) capsule (40 mg total) by mouth daily. 30 capsule 5 09/04/2018 2022 Discontinued (Patient's Request) ondansetron (ZOFRAN-ODT) disintegrating tablet 4 mg (3 sources) Start: 10-26-2023 End: 10-28-2023 take 1 tablet by mouth every six hours as needed for nausea and vomiting ondansetron (ZOFRAN-ODT) disintegrating tablet 4 mg Start: 03-13-2021 End: 03-14-2021 take 1 tablet by mouth every six hours as needed ondansetron (ZOFRAN-ODT) disintegrating tablet 4 mg Start: 02-27-2018 End: 02-28-2018 take 1 tablet by mouth every six hours as needed ondansetron (ZOFRAN-ODT) disintegrating tablet 4 mg oxyCODONE hydrochloride 5 mg oral tablet (20 sources) Opioid Agonist Start: 08-24-2023 End: 08-31-2023 take 1 tablet by mouth every four hours as needed for pain, then take 7 tablets by mouth once as needed for pain oxyCODONE (ROXICODONE) 5 MG immediate release tablet Indications: S/P lumbar fusion Take 1 tablet (5 mg total) by mouth every 4 hours as needed for pain . Take no more than 4/day for 2 days, then no more than 3/day for 2 days, then no more than 2/day (Days supply per fill: 7) 21 tablet 0 08/24/2023 08/31/2023 Start: 03-13-2021 End: 03-14-2021 take 20 mg by mouth every twelve hours 20 mg, Oral, Every 12 hours, First dose on Tue03/13/21 at 2100 DO NOT CRUSH OR CHEW. Start: 12-11-2020 End: 03-05-2021 OxyCONTIN 20 mg 12 hr tablet Start: 02-28-2018 End: 03-07-2018 take 1 tablet by mouth once oxyCODONE (OXYCONTIN) 10 m g 12 hr tablet Indications: Primary osteoarthritis of right hip Take 1 (one) tablet (10 mg total) by mouth every 12 (twelve) hours for 7 days. 14 tablet 0 02/28/2018 03/07/2018 Active Start: 02-27-2018 End: 02-27-2018 oxyCODONE (OXYCONTIN) 12 hr tablet 20 mg Start: 12-15-2011 End: 06-10-2019 take 5-10 mg by mouth every three hours as needed oxyCODONE 5 MG PO TABS take 1-2 Tabs by mouth every 3 hours as needed (if taking oral medications). 60 Tab 0 12/15/2011 Active End: 03-13-2021 oxyCODONE (OXYCONTIN) 20 mg 12 hr tablet Take 20 mg by mouth every 12 (twelve) hours States going off this and to start Hydrocodone in next couple days . 0 03/13/2021 Discontinued (Error) perflutren lipid microspheres (DEFINDigitalAdvisor) 0.143 mg/mL solution 0-10 mL of mixture (1 source) Start: 06-08-2019 End: 06-10-2019 perflutren lipid microspheres (DEFINDigitalAdvisor) 0.143 mg/mL solution 0-10 mL of mixture polyethylene glycol 3350 [id number] mg powder for oral solution (18 sources) Osmotic Laxative Start: 08-14-2024 End: 08-21-2024 polyethylene glycol (MIRALAX) 17 gram powder Take 17 (seventeen) g by mouth 2 (two) times a day for 7 days . 255 g 08/14/2024 08/21/2024 Start: 02-24-2018 End: 06-08-2019 polyethylene glycol (MIRALAX ) 17 gram powder polysaccharide iron complex 150 mg oral capsule (1 source) Start: 02-28-2018 End: 02-28-2018 polysaccharide iron complex (NIFEREX) capsule 150 mg Potassium (5 sources) End: 06-08-2019 potassium 99 mg Tab 1 Unspecified . 0 06/08/2019 Discontinued (Error) potassium 99 mg Tab 1 Unspecified . 0 Active potassium bicarbonate 25 meq effervescent oral tablet (1 source) Start: 06-08-2019 End: 06-08-2019 potassium bicarbonate (K-LYTE) 25 MEQ disintegrating tablet 50 mEq pramipexole dihydrochloride 0.25 mg oral tablet (1 source) Nonergot Dopamine Agonist Start: 07-02-2008 End: 04-18-2023 pramipexole di-hcl(MIRAPEX 0.25 MG TAB) as necessary 0 07/02/2008 04/18/2023 Discontinued Comment on above: as necessary predniSONE 20 mg oral tablet (20 sources) Start: 06-11-2019 End: 06-10-2019 predniSONE (DELTASONE) tablet 40 mg Start: 06-10-2019 End: 03-05-2021 predniSONE (DELTASONE) 10 MG tablet 60 mg daily on days 1 through 5, 40 mg on day 6, 20 mg on day 7, 20 mg on day 8, 10 mg on day 9, and 5 mg on day 10 . 40 tablet 0 06/10/2019 03/05/2021 Discontinued (Therapy completed) Start: 06-09-2019 End: 06-10-2019 predniSONE (DELTASONE) table t 60 mg prochlorperazine 5 mg/ml injectable solution (2 sources) Phenothiazine Start: 10-26-2023 End: 10-28-2023 take 10 mg intravenously every six hours as needed for nausea and vomiting 10 mg, Intravenous, Every 6 hours PRN, nausea, vomiting, Starting on Tue10/26/23 at 0528, For 6 doses If IV, give slow IV push at a rate not exceeding 5 mg/minute and remain lying down for 30 minutes to reduce risk of hypotension. If IM, inject deep into outer buttocks quadrant. Start: 03-13-2021 End: 03-14-2021 inject 5 mg by intramuscular injection every six hours as needed 5 mg, Intramuscular, Every 6 hours PRN, nausea, vomiting, Starting Tue03/13/21 at 1505 If IV, give slow IV push at a rate not exceeding 5 mg/minute and remain lying down for 30 minutes to reduce risk of hypotension. If IM, inject deep into outer buttocks quadrant. promethazine hydrochloride 25 mg oral tablet (20 sources) Phenothiazine Start: 07-02-2008 End: 04-18-2023 take 1 tablet by mouth every six hours as needed 25 mg, Oral, Every 6 hours PRN, nausea, Starting 06/08/19 at 1525 Comment on above: as necessary 10 ml propofol 10 mg/ml injection (1 source) General Anesthetic Start: 08-18-2023 End: 08-18-2023 propofoL (DIPRIVAN) injection raNITIdine 300 mg oral tablet (20 sources) Histamine-2 Receptor Antagonist Start: 09-04-2018 End: 2022 take 1 tablet by mouth once daily ranitidine (ZANTAC) 300 MG tablet Indications: Laryngeal pachyderma , Gastroesophageal reflux disease, esophagitis presence not specified Take 1 (one) tablet (300 mg total) by mouth nightly. 30 tablet 5 09/04/2018 2022 Discontinued (Patient's Request) rocuronium bromide 10 mg/ml injectable solution (1 source) Nondepolarizing Neuromuscular Geraldine Start: 08-18-2023 End: 08-18-2023 rocuronium (ZEMURON) injection 72 hr scopolamine 0.0139 mg/hr transdermal system (1 source) Anticholinergic Start: 02-27-2018 End: 02-28-2018 scopolamine (TRANSDERM-SCOP) 1 mg over 3 days patch 1 patch Sodium Chloride (18 sources) Start: 10-26-2023 End: 10-28-2023 sodium chloride (PF) (NS) flush 5 mL Start: 10-25-2023 End: 10-28-2023 sodium chloride (PF) (NS) fl ush 5 mL Start: 08-18-2023 End: 08-18-2023 sodium chloride 0.9% (NS) Start: 03-30-2023 End: 03-30-2023 Sodium chloride (PF) 0.9 % injection 5 mL Start: 12-03-2022 End: 12-03-2022 Sodium chloride (PF) 0.9 % injection 5 mL Start: 10-04-2022 End: 10-04-2022 sodium chloride (PF) 0.9 % injection 5 mL Start: 06-24-2022 End: 06-24-2022 sodium chloride (PF) 0.9 % injection 5 mL Start: 03-23-2021 End: 03-24-2021 sodium chloride (PF) (NS) fl ush 5 mL Start: 03-13-2021 End: 03-14-2021 take 100 mL intravenously every hour 100 mL/hr, Intravenous, Continuous, Starting Tue03/13/21 at 1600 May lock IV fluids when tolerating PO fluids and having adequate urine output Start: 03-13-2021 End: 03-14-2021 sodium chloride (PF) (NS) fl ush 5 mL Start: 03-13-2021 End: 03-14-2021 take 25 mL intravenously every hour 25 mL/hr, Intraven ous, Continuous, Starting Tue03/13/21 at 1500, PACU (only) Use if patient already has Normal Saline Start: 06-08-2019 End: 06-08-2019 sodium chloride 0.9% (NS) rina viviana 500 mL sodium chloride (PF) (NS) 0.9 % contrast line flush 10 mL (1 source) Start: 10-26-2023 End: 10-28-2023 sodium chloride (PF) (NS) 0.9 % contrast line flush 10 mL 5 ml sugammadex 100 mg/ml injection (1 source) Start: 08-18-2023 End: 08-18-2023 sugammadex (BRIDION) injection terbinafine 250 mg oral tablet (20 sources) Allylamine Antifungal End: 10-26-2023 take 1 tablet by mouth once daily in the morning terbinafine HCL (LAMISIL) 250 mg tablet Take 1 (one) tablet (250 mg total) by mouth every morning . 0 10/26/2023 Discontinued (Error) tiotropium 0.018 mg inhalant powder (20 sources) Anticholinergic Start: 06-09-2019 End: 06-10-2019 take 1 capsule by inhalation twice daily 18 mcg, Inhalation, Daily, First dose on 06/09/19 at 0900 For INHALATION use lennie. Do NOT administer capsule orally. &nbsp ;To ensure drug delivery, the contents of each capsule should be inhaled twice by the patient when administering the dose, and then discard capsule. take 1 capsule by in halation every twenty-four hours tiotropium (SPIRIVA) 18 mcg inhalation capsule Inhale 18 mcg as instructed q 24 HR. Active End: 03-05-2021 take 1 capsule by inhalation once daily tiotropium 18 MCG inhalation capsule Indications: Left leg pain , Right leg pain , Spider veins , Varicose veins of bilateral lower extremities with pain Inhale 18 mcg daily. 0 Active End: 06-08-2019 take 1 capsule by inhalation once daily tiotropium (SPIRIVA WITH HANDIHALER) 18 mcg inhalation capsule Spiriva with HandiHaler 18 mcg and inhalation capsules INHALE THE ENTIRE CONTENTS OF 1 CAPSULE ONCE A DAY USING HANDIHALER DEVICE 0 06/08/2019 Discontinued (Error) Comment on above: Inhale 18 mcg as ins tructed q 24 HR. tiZANidine 2 mg oral tablet (20 sources) Central alpha-2 Adrenergic Agonist Start: 08-14-2024 End: 08-24-2024 take 1 tablet by mouth three times daily as needed for muscle spasms tiZANidine (ZANAFLEX) 2 MG tablet Take 1 (one) tablet (2 mg total) by mouth 3 (three) times a day as needed for muscle spasms . 30 tablet 08/14/2024 08/24/2024 Start: 12-09-2020 End: 03-14-2021 take 4 mg by mouth three times daily 4 mg, Oral, 3 times daily, First dose on Tue03/13/21 at 1600 Start: 07-16-2019 End: 10-14-2019 take 1 tablet by mouth three times daily tiZANidine (ZANAFLEX) 4 MG tablet Take 1 (one) tablet (4 mg total) by mouth 3 (three) times a day . 90 tablet 2 07/16/2019 10/14/2019 Active Start: 01-09-2018 End: 02-27-2018 take 1 tablet by mouth three times daily, then take 1 tablet by mouth tiZANidine (ZANAFLEX) 4 MG tablet Take 1 (one) tablet (4 mg total) by mouth 3 (three) times a day. 90 tablet 2 01/09/2018 02/17/2018 Discontinued 1 ml triamcinolone acetonide 40 mg/ml prefilled syringe (14 sources) Corticosteroid Start: 03-30-2023 End: 03-30-2023 triamcinolone (KENALOG-40) injection 2 mL Start: 02-22-2023 End: 02-22-2023 triamcinolone (KENALOG-40) i njection 80 mg Start: 12-27-2022 End: 12-27-2022 triamcinolone (KENALOG-40) i njection 2 mL Start: 12-03-2022 End: 12-03-2022 triamcinolone (KENALOG-40) i njection 2 mL Start: 10-04-2022 End: 10-04-2022 triamcinolone (KENALOG-40) i njection 2 mL Start: 06-24-2022 End: 06-24-2022 triamcinolone (KENALOG-40) i njection 2 mL 30 actuat umeclidinium 0.0625 mg/actuat / vilanterol 0.025 mg/actuat dry powder inhaler (20 sources) Anticholinergic, beta2-Adrenergic Agonist Start: 03-05-2020 End: 08-04-2023 take 2 puff(s) by inhalation once daily Anoro Ellipta 62.5-25 mcg/actuation DsDv Inhale 2 puffs daily . 0 03/05/2020 08/04/2023 Discontinued (Patient's Request) Start: 03-05-2020 Anoro Ellipta 62.5-25 mcg/actuation DsDv 24 hr venlafaxine 150 mg extended release oral capsule (1 source) Serotonin and Norepinephrine Reuptake Inhibitor Start: 07-02-2008 End: 04-18-2023 venlafaxine hcl(EFFEXOR XR 150 MG 24 HR CAP) Take one(1) tablet daily at bedtime. 0 07/02/2008 04/18/2023 Discontinued Comment on above: Take one(1) tablet d aily at bedtime. Problems Active Problems Problem Classification Problem Date Documented Da te Episodic/Chronic Acquired foot deformities (1 source) Acquired claw toes; Translations: [Other deformities of toe(s) (acquired), left foot] Episodic Acquired foot deformities (1 source) Tailor's bunion of right foot; Translations: [Bunionette of right foot] Episodic Anxiety disorders (4 sources) Anxiety disorder, unspecified; Translations: [Anxiety disorder, unspecified] Onset: 8 Chronic Asthma (20 sources) Asthma; Translations: [Unspecified asthma, uncomplicated] Onset: 4 08-22-2015 Chronic Cancer of bronchus; lung (20 sources) Carcinoma of lung; Translations: [Primary malignant neoplasm of bronchus] Onset: 2 08-22-2015 Chronic Cataract (20 sources) Cataract; Translations: [Unspecified cataract] Onset: 4 08-22-2015 Chronic Chronic obstructive pulmonary disease and bronchiectasis (7 sources) Chronic obstructive pulmonary disease, unspecified; Translations: [Acute exacerbation of chronic obstructive airways disease] Onset: 8 Chronic Congestive heart failure; nonhypertensive (20 sources) Congestive heart failure; Translations: [Heart failure, unspecified] Onset: 5 Resolved: 8 02-27-2018 Chronic Crushing injury or internal injury (2 sources) Traumatic pneumothorax, initial encounter; Translations: [Traumatic pneumothorax, initial encounter] Onset: 4 Episodic Diabetes mellitus with complications (2 sources) Type 2 diabetes mellitus with hyperglycemia; Translations: [Type 2 diabetes mellitus with hyperglycemia] Onset: 5 Chronic Diabetes mellitus without complication (20 sources) Prediabetes; Translations: [Pre-diabetes] Onset: 4 08-22-2015 Esophageal disorders (1 source) Gastroesophageal reflux disease Chronic Essential hypertension (20 sources) Benign hypertension; Translations: [Essential (primary) hypertension] Onset: 5 02-27-2018 Chronic Genitourinary symptoms and ill-defined conditions (20 sources) Urge incontinence of urine; Translations: [Urge incontinence] Onset: 2 Chronic Genitourinary symptoms and ill-defined conditions (1 source) Dysuria; Translations: [Dysuria] Episodic Headache; including migraine (20 sources) Migraine; Translations: [Migraine, unspecified, not intractable, without status migrainosus] Onset: 4 08-22-2015 Chronic Headache; including migraine (1 source) Headache; Translations: [Nonintractable episodic headache, unspecified headache type] Episodic Hypertension with complications and secondary hypertension (16 sources) Hypertensive heart disease; Translations: [Hypertensive heart disease without heart failure] Onset: 1 Chronic Immunizations and screening for infectious disease (2 sources) Encounter for immunization; Translations: [Encounter for immunization] Onset: 5 Episodic Mood disorders (20 sources) Depressive disorder; Translations: [Major depressive disorder, single episode, unspecified] Onset: 4 08-22-2015 Chronic Mood disorders (20 sources) Major depressive disorder, single episode, unspecified; Translations: [Mood disorders] Onset: 5 08-10-2023 Nausea and vomiting (20 sources) Nausea and vomiting; Translations: [Nausea] Onset: 5 05-14-2025 Episodic Nutritional deficiencies (20 sources) Iron deficiency; Translations: [Iron deficiency] Onset: 6 12-09-2015 Chronic Osteoarthritis (20 sources) Osteoarthritis of hip; Translations: [Degenerative joint disease involving multiple joints] Onset: 4 Resolved: 8 02-27-2018 Chronic Other acquired deformities (1 source) [place]-neck deformity of finger of bilateral hands; Translations: [[place]-neck deformity of right finger(s)] Episodic Other acquired deformities (1 source) Ulnar drift; Translations: [Other deformity of right finger(s)] 04-18-2023 Episodic Other aftercare (20 sources) 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) use of opiate analgesic; Translations: [High risk drug monitoring status] Onset: 5 Resolved: 6 07-01-2016 Episodic Other and ill-defined heart disease (20 sources) Diastolic dysfunction; Translations: [Other ill-defined heart diseases] Chronic Other and ill-defined heart disease (2 sources) Other ill-defined heart diseases; Translations: [Other ill-defined heart diseases] Onset: 1 Chronic Other bone disease and musculoskeletal deformities (1 source) Segmental and somatic dysfunction; Translations: [Segmental and somatic dysfunction of sacral region] Episodic Other connective tissue disease (20 sources) History of total hip arthroplasty; Translations: [Presence of unspecified artificial hip joint] Onset: 8 03-13-2018 Chronic Other connective tissue disease (1 source) History of right total knee replacement; Translations: [Presence of right artificial knee joint] Chronic Other connective tissue disease (1 source) Pain in finger of right hand; Translations: [Pain in right finger(s)] Episodic Other connective tissue disease (1 source) Subluxation of tendon, wrist or hand; Translations: [Spontaneous rupture of extensor tendons, right hand] Episodic Other connective tissue disease (2 sources) Arthrodesis status; Translations: [Arthrodesis status] Onset: 3 Episodic Other connective tissue disease (2 sources) Pain of bilateral upper limbs; Translations: [Pain in right arm] 04-23-2025 Episodic Other ear and sense organ disorders (1 source) Tinnitus; Translations: [Tinnitus, unspecified ear] 12-15-2023 Episodic Other gastrointestinal disorders (1 source) Irritable bowel syndrome; Translations: [Irritable bowel syndrome without diarrhea] Chronic Other hereditary and degenerative nervous system conditions (20 sources) Restless legs; Translations: [Restless legs syndrome] Onset: 4 02-27-2018 Chronic Other hereditary and degenerative nervous system conditions (1 source) Restless legs syndrome; Translations: [Restless legs syndrome] Onset: 2 Chronic Other lower respiratory disease (1 source) Dyspnea; Translations: [Shortness of breath] Episodic Other lower respiratory disease (20 sources) Multiple nodules of lung; Translations: [Other nonspecific abnormal finding of lung field] Onset: 1 09-09-2011 Episodic Other lower respiratory disease (2 sources) Pleurodynia; Translations: [Pleurodynia] Onset: 4 Episodic Other nervous system disorders (20 sources) Difficulty in walking, not elsewhere classified; Translations: [Difficulty walking] Onset: 6 06-22-2016 Chronic Other nervous system disorders (20 sources) Walking disability; Translations: [Difficulty in walking, not elsewhere classified] Onset: 6 06-22-2016 Chronic Other nervous system disorders (1 source) Lesion of ulnar nerve, left upper limb; Translations: [Lesion of ulnar nerve] Chronic Other nervous system disorders (2 sources) Meralgia paresthetica of left leg; Translations: [Meralgia paresthetica, left lower limb] Chronic Other nervous system disorders (1 source) Neuropathy; Translations: [Polyneuropathy, unspecified] 12-15-2023 Chronic Other nervous system disorders (1 source) Chronic pain syndrome; Translations: [Chronic pain syndrome] Onset: 4 Chronic Other nervous system disorders (1 source) Dysphasia Episodic Other nervous system disorders (1 source) Paresthesia; Translations: [Paresthesias] Episodic Other nervous system disorders (1 source) Numbness of upper limb; Translations: [Anesthesia of skin] Episodic Other nervous system disorders (1 source) Acute pain due to trauma; Translations: [Acute pain due to trauma] Onset: 4 Episodic Other nervous system disorders (2 sources) Unspecified abnormalities of gait and mobility; Translations: [Unspecified abnormalities of gait and mobility] Onset: 4 Episodic Other nervous system disorders (2 sources) Other abnormalities of gait and mobility; Translations: [Other abnormalities of gait and mobility] Onset: 0 Episodic Other nervous system disorders (20 sources) Difficulty walking; Translations: [Difficulty walking] Onset: 6 06-22-2016 Other nervous system disorders (1 source) Bilateral carpal tunnel syndrome; Translations: [Bilateral carpal tunnel syndrome] Other non-traumatic joint disorders (20 sources) Arthritis; Translations: [Difficulty in walking, not elsewhere classified] Onset: 4 Resolved: 6 05-26-2016 Chronic Other non-traumatic joint disorders (2 sources) Rotator cuff arthropathy of left shoulder; Translations: [Other specific arthropathies, not elsewhere classified, left shoulder] Chronic Other non-traumatic joint disorders (1 source) Joint pain; Translations: [Pain in unspecified joint] Episodic Other non-traumatic joint disorders (1 source) Pain in right knee; Translations: [Other acute pain] Episodic Other non-traumatic joint disorders (2 sources) Shoulder pain; Translations: [Pain in left shoulder] Episodic Other non-traumatic joint disorders (1 source) Dislocation of tendon, wrist or hand; Translations: [Pathological dislocation of right hand, not elsewhere classified] 04-18-2023 Episodic Other non-traumatic joint disorders (1 source) Pain in left shoulder; Translations: [Pain in joint, shoulder region] 03-14-2024 Episodic Other non-traumatic joint disorders (2 sources) Pain in left hip; Translations: [Pain in left hip] Onset: 3 Episodic Other nutritional; endocrine; and metabolic disorders (20 sources) Obesity, unspecified; Translations: [Iron deficiency] Onset: 6 05-26-2016 Chronic Other nutritional; endocrine; and metabolic disorders (20 sources) Obesity; Translations: [Other obesity due to excess calories] Onset: 4 Chronic Other nutritional; endocrine; and metabolic disorders (20 sources) Obese class I; Translations: [Obesity (BMI 30.0-34.9)] Onset: 6 05-26-2016 Other upper respiratory disease (1 source) Unilateral complete paralysis of vocal cords Chronic Other upper respiratory disease (1 source) Laryngeal pachydermia Episodic Pathological fracture (1 source) Pathological fracture of vertebra due to osteoporosis; Translations: [Age-related osteoporosis with current pathological fracture, vertebra(e), initial encounter for fracture] 09-15-2023 Episodic Amy-; endo-; and myocarditis; cardiomyopathy (except that caused by tuberculosis or sexually transmitted disease) (20 sources) Dilated cardiomyopathy; Translations: [Dilated cardiomyopathy] Onset: 2 Chronic Peripheral and visceral atherosclerosis (10 sources) Peripheral vascular disease, unspecified; Translations: [Intermittent claudication] Onset: 8 Chronic Phlebitis; thrombophlebitis and thromboembolism (1 source) Superficial vein thrombosis; Translations: [Acute embolism and thrombosis of other specified veins] 06-07-2023 Episodic Prolapse of female genital organs (20 sources) Rectocele; Translations: [Disorder of rectum] Onset: 0 08-28-2020 Chronic Pulmonary heart disease (3 sources) Pulmonary thromboembolism; Translations: [Other pulmonary embolism without acute cor pulmonale] 08-25-2023 Episodic Residual codes; unclassified (20 sources) Obstructive sleep apnea syndrome; Translations: [Obstructive sleep apnea (adult) (pediatric)] Onset: 5 02-27-2018 Chronic Residual codes; unclassified (2 sources) Obstructive sleep apnea (adult) (pediatric); Translations: [Obstructive sleep apnea (adult) (pediatric)] Onset: 8 Chronic Residual codes; unclassified (1 source) Finding related to sleep; Translations: [Sleep apnea, unspecified] 01-21-2025 Chronic Residual codes; unclassified (2 sources) Sleep apnea, unspecified; Translations: [Sleep apnea, unspecified] Onset: 5 Chronic Residual codes; unclassified (2 sources) History of operative procedure on hip; Translations: [Other specified postprocedural states] Episodic Residual codes; unclassified (2 sources) Pain; Translations: [Pain, unspecified] 10-26-2023 Episodic Residual codes; unclassified (4 sources) Early satiety; Translations: [Early satiety] Onset: 5 04-17-2025 Episodic Residual codes; unclassified (1 source) Early satiety; Translations: [Early satiety] Onset: 5 Episodic Spondylosis; intervertebral disc disorders; other back problems (20 sources) Degeneration of cervical intervertebral disc; Translations: [Lumbar post-laminectomy syndrome] Onset: 4 08-22-2015 Chronic Superficial injury; contusion (1 source) Contusion of rib; Translations: [Contusion of right front wall of thorax, initial encounter] 10-26-2023 Episodic Unclassified (12 sources) Spinal stenosis, lumbar region with neurogenic claudication; Translations: [Lumbar stenosis with neurogenic claudication] Onset: 8 11-08-2017 Unclassified (1 source) Unknown / UNK(Unknown) Onset: 8 Unclassified (2 sources) Pain in right foot / M79.671(ICD-10) Onset: 8 Unclassified (2 sources) Patient encounter status; Translations: [Encounter for monitoring opioid maintenance therapy] Unclassified (1 source) Low back pain, unspecified; Translations: [Low back pain, unspecified] Onset: 3 Unclassified (1 source) Finding related to sleep 01-21-2025 Unclassified (1 source) Aneurysm of the ascending aorta, without rupture; Translations: [Aneurysm of the ascending aorta, without rupture] Onset: 5 Urinary tract infections (1 source) Acute cystitis; Translations: [Acute cystitis with hematuria] Episodic Past or Other Problems Problem Classification Problem Date Documented Da te Episodic/Chronic Abdominal hernia (2 sources) Unspecified abdominal hernia without obstruction or gangrene; Translations: [Unspecified abdominal hernia without obstruction or gangrene] Onset: 12-23-2021 Episodic Abdominal pain (20 sources) Inguinal pain; Translations: [Lower abdominal pain, unspecified] Onset: 05-18-2021 Episodic Acute posthemorrhagic anemia (20 sources) Acute posthemorrhagic anemia; Translations: [Anemia following acute postoperative blood loss] Onset: 02-28-2018 02-28-2018 Episodic Administrative/social admission (20 sources) Admission statuses; Translations: [Encounter for long-term use of opiate analgesic] Onset: 10-22-2015 Resolved: 05-26-2016 07-01-2016 Episodic Anal and rectal conditions (20 sources) Disorder of rectum; Translations: [Rectocele] Onset: 08-28-2020 08-28-2020 Episodic Conditions associated with dizziness or vertigo (20 sources) Vertigo; Translations: [Dizziness and giddiness] Onset: 06-08-2019 06-08-2019 Episodic Diabetes mellitus without complication (20 sources) Prediabetes; Translations: [Prediabetes] Onset: 07-22-2014 08-22-2015 Episodic E Codes: Fall (5 sources) Fall; Translations: [Unspecified fall, initial encounter] Onset: 08-05-2024 10-26-2023 Episodic Malaise and fatigue (20 sources) Asthenia; Translations: [Other malaise] Onset: 12-16-2023 12-16-2023 Episodic Medical examination/evaluation (6 sources) Encounter for preprocedural cardiovascular examination; Translations: [Encounter for other preprocedural examination] Onset: 11-03-2017 Episodic Mycoses (2 sources) Candidiasis, unspecified; Translations: [Candidiasis, unspecified] Onset: 06-05-2025 Episodic Nutritional deficiencies (20 sources) Iron deficiency; Translations: [Iron deficiency] Onset: 12-09-2015 12-09-2015 Episodic Other aftercare (2 sources) High risk drug monitoring status; Translations: [Encounter for long-term use of opiate analgesic] Onset: 10-22-2015 Resolved: 05-26-2016 07-01-2016 Episodic Other aftercare (20 sources) Patient encounter status; 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] Onset: 10-22-2015 Resolved: 05-26-2016 07-01-2016 Episodic Other circulatory disease (20 sources) Personal history of other diseases of the circulatory system; Translations: [History of cardiomyopathy] Onset: 09-02-2015 09-02-2015 Episodic Other connective tissue disease (20 sources) Disorder of rotator cuff; Translations: [Muscle pain] Onset: 07-22-2014 Resolved: 05-26-2016 08-22-2015 Episodic Other connective tissue disease (20 sources) Pain in lower limb; Translations: [Pain in leg, unspecified] Onset: 08-19-2016 08-19-2016 Episodic Other connective tissue disease (20 sources) Muscle pain; Translations: [Myalgia, unspecified site] Onset: 07-22-2014 Resolved: 08-22-2015 08-22-2015 Episodic Other connective tissue disease (20 sources) Unspecified rotator cuff tear or rupture of right shoulder, not specified as traumatic; Translations: [Tear of right rotator cuff] Onset: 08-05-2015 Resolved: 05-26-2016 05-26-2016 Episodic Other connective tissue disease (20 sources) History of cervical spine fusion; Translations: [Arthrodesis status] Onset: 03-14-2021 Episodic Other connective tissue disease (20 sources) History of lumbar fusion; Translations: [Arthrodesis status] Onset: 12-29-2016 Episodic Other connective tissue disease (15 sources) Pain in left arm; Translations: [Pain in left arm] Onset: 09-09-2014 09-09-2014 Episodic Other connective tissue disease (1 source) Pain in right hand; Translations: [Right hand pain] Onset: 04-18-2023 Episodic Other connective tissue disease (20 sources) Tear of right rotator cuff; Translations: [Right rotator cuff tear] Onset: 08-05-2015 Resolved: 05-26-2016 05-26-2016 Other ear and sense organ disorders (15 sources) Presbycusis; Translations: [Presbycusis, bilateral] Onset: 12-18-2019 12-18-2019 Episodic Other ear and sense organ disorders (15 sources) Bilateral subjective tinnitus of ears; Translations: [Tinnitus, bilateral] Onset: 12-18-2019 12-18-2019 Episodic Other fractures (20 sources) Closed fracture of multiple right ribs; Translations: [Multiple fractures of ribs, right side, initial encounter for closed fracture] Onset: 08-05-2024 08-06-2024 Episodic Other fractures (3 sources) Multiple fractures of ribs, right side, initial encounter for closed fracture; Translations: [Multiple fractures of ribs, right side, initial encounter for closed fracture] Onset: 08-05-2024 Episodic Other gastrointestinal disorders (20 sources) Dysphagia; Translations: [Dysphagia, unspecified] Onset: 08-23-2014 08-22-2015 Episodic Other injuries and conditions due to external causes (20 sources) History of fall; Translations: [History of falling] Onset: 07-27-2019 07-27-2019 Episodic Other injuries and conditions due to external causes (1 source) History of falling; Translations: [History of falling] Onset: 07-27-2019 Episodic Other lower respiratory disease (20 sources) Pleuritic pain; Translations: [Pleurodynia] Onset: 12-16-2023 12-16-2023 Episodic Other nervous system disorders (20 sources) Complex regional pain syndrome I of unspecified lower limb; Translations: [Reflex sympathetic dystrophy of lower extremity] Onset: 02-25-2006 Resolved: 08-22-2015 08-22-2015 Chronic Other nervous system disorders (1 source) Reflex sympathetic dystrophy of lower extremity; Translations: [Reflex sympathetic dystrophy of lower extremity] Onset: 02-25-2006 Resolved: 08-22-2015 08-22-2015 Chronic Other nervous system disorders (20 sources) Impairment of balance; Translations: [Chronic back pain ] Onset: 08-23-2014 08-22-2015 Episodic Other nervous system disorders (20 sources) Abnormal gait; Translations: [Unspecified abnormalities of gait and mobility] Onset: 12-16-2023 12-16-2023 Episodic Other nervous system disorders (20 sources) Acute pain due to injury; Translations: [Acute pain due to trauma] Onset: 08-06-2024 08-07-2024 Episodic Other nervous system disorders (20 sources) Complex regional pain syndrome of lower limb; Translations: [Reflex sympathetic dystrophy of lower extremity] Onset: 02-25-2006 Resolved: 08-22-2015 08-22-2015 Other non-traumatic joint disorders (20 sources) Hip pain; Translations: [Pain in left hip] Onset: 08-19-2016 Episodic Other screening for suspected conditions (not mental disorders or infectious disease) (4 sources) Encounter for screening for malignant neoplasm of colon; Translations: [Encounter for screening mammogram for malignant neoplasm of breast] Onset: 06-05-2025 Episodic Other upper respiratory disease (15 sources) Hoarse; Translations: [Dysphonia] Onset: 09-09-2014 09-09-2014 Episodic Pleurisy; pneumothorax; pulmonary collapse (2 sources) Pneumothorax, unspecified; Translations: [Pneumothorax, unspecified] Onset: 08-05-2024 Episodic Residual codes; unclassified (1 source) Chronic back pain ; Translations: [Chronic back pain] Onset: 08-23-2014 08-22-2015 Episodic Residual codes; unclassified (1 source) Burning pain; Translations: [Burning pain] Episodic Residual codes; unclassified (1 source) Pain, unspecified; Translations: [Pain] Onset: 04-22-2023 Episodic Residual codes; unclassified (2 sources) Other amnesia; Translations: [Other amnesia] Onset: 06-30-2022 Episodic Spondylosis; intervertebral disc disorders; other back problems (20 sources) Spinal stenosis of lumbar region; Translations: [Brachial neuritis] Onset: 07-22-2014 11-08-2017 Episodic Unclassified (1 source) Encounter for long-term opiate analgesic use Unclassified (1 source) I73.9 I83.893 Onset: 05-26-2018 Unclassified (1 source) Pain in right foot; Translations: [Pain in right foot] Onset: 08-25-2018 Unclassified (1 source) Low back pain, unspecified; Translations: [Low back pain, unspecified] Onset: 08-06-2024 Unclassified (1 source) Aneurysm of the ascending aorta, without rupture; Translations: [Aneurysm of the ascending aorta, without rupture] Onset: 06-05-2025 Varicose veins of lower extremity (20 sources) Venous varices; Translations: [Varicose veins of lower extremity] Onset: 08-23-2015 08-19-2016 Episodic Results Test Name Value Interpretation Reference Range [address] 09-09-2025 36 Patient informed Normal [facility] 09-09-2025 Refill [id number] Kelly Perez 1955 F Date Provider Department Center 09/09/2025 HARMONY EDOUARD [facility] INT MED Comprehensiv Family History Problem Relation Age of Onset Depression Mother Comments: ag 63 Diabetes Mother Hypertension Mother Heart disease Mother Cancer Father Comments: age 69 Lung cancer Sister Family Status - Relation Status Age at Mother Father Sister Reason for Visit and Comments: Med Refill [[id number]] Normal [facility] 08-29-2025 Refill [id number] Kelly Perez 1955 F Date Provider Department Center 08/29/2025 IRMA RICO [facility] INT MED Comprehensiv Family History Problem Relation Age of Onset Depression Mother Comments: ag 63 Diabetes Mother Hypertension Mother Heart disease Mother Cancer Father Comments: age 69 Lung cancer Sister Family Status - Relation Status Age at Mother Father Sister [facility] 08-22-2025 36 Patient notified. [facility] 3608-21-2025 36 Patient is scheduled to come into the office in september for a 20 min appointment for a memory check.She would like to know,if she is scheduled for enough time for the memory check. [facility]ill [id number] Kelly Perez Dorene 1955 Date Provider Department Center 08/05/2025 MORGAN VICENTE [facility] INT MED Comprehensiv Family History Problem Relation Age of Onset Depression Mother Comments: ag 63 Diabetes Mother Hypertension Mother Heart disease Mother Cancer Father Comments: age 69 Lung cancer Sister Family Status - Relation Status Age at Mother Father Sister Reason for Visit and Comments: Med Refill [[id number]] [facility] Refill [id number] NaaKelly 1955 Provider Department Center 08/05/2025 MICHAEL QUIROZ [facility] INT MED Comprehensiv Family History Problem Relation Age of Onset Depression Mother Comments: ag 63 Diabetes Mother Hypertension Mother Heart disease Mother Cancer Father Comments: age 69 Lung cancer Sister Family Status - Relation Status Age at Mother Father Sister Reason for Visit and Comments: Med Refill [[id number]] [facility] 3607-23-2025 36 Requested Prescriptions Pending Prescriptions Disp Refills furosemide (Lasix) 40 mg tablet Sig: Take 1 tablet (40 mg) by mouth in the morning. Patient is requesting a 90 day supply [facility] 07-23-[facility]25 Refill [id number] Kelly Perez Dorene 1955 Date Provider Department Center 07/23/2025 FLORENCE SANTAMARIA [facility] INT MED Comprehensiv Family History Problem Relation Age of Onset Depression Mother Comments: ag 63 Diabetes Mother Hypertension Mother Heart disease Mother Cancer Father Comments: age 69 Lung cancer Sister Family Status - Relation Status Age at Mother Father Sister Reason for Visit and Comments: Med Refill [[id number]] [facility] 3607-05-2025 36 Patient calling to check on status of medication. Please advise Requested Prescriptions Pending Prescriptions Disp Refills oxyCODONE-acetaminophe n (Percocet) 10-325 mg tablet 90 tablet 0 Sig: Take 2 tablets by mouth every 8 (eight) hours if needed for severe pain (8-10 pain score) for up to 14 days. [facility] 07-03-2025 Refill [id number] Kelly Perez 1955 F [facility] Provider Department Center 07/03/2025 MICHAEL QUIROZ [facility] INT MED Comprehensiv Family History Problem Relation Age of Onset Depression Mother Comments: ag 63 Diabetes Mother Hypertension Mother Heart disease Mother Cancer Father Comments: age 69 Lung cancer Sister Family Status - Relation Status Age at Mother Father Sister Reason for Visit and Comments: Med Refill [[id number]] [facility] 3606-20-2025 36 Pt notified. [facility] 3606-19-2025 36 Giving 2 week supply with this refill as patient is going out of town in about 3 [address] she will get an updated refill in 2 weeks for a month supply and not need to worry about a refill while out of town. [facility] 3606-18-2025 36 Pt is asking to be referred to Dr Benjie Styles/Rheum fax [phone] [facility] Telephoneon 06-18-2025 Telephone [id number] Kelly Perez 1955 F [facility] Provider Department Center 06/18/2025 HARMONY EDOUARD [facility] INT MED Comprehensiv Family History Problem Relation Age of Onset Depression Mother Comments: ag 63 Diabetes Mother Hypertension Mother Heart disease Mother Cancer Father Comments: age 69 Lung cancer Sister Family Status - Relation Status Age at Mother Father Sister [facility] 3606-08-2025 36 I will try to rememb er this request when the refill request comes in. [facility] 36on 06-07-2025 36 Patient state,she is going to [place] and she should be back by the .She would like to know,if she can get a 1 week supply at the end of May,then a full month beginning of July and July then that should not effect her refills. Normal [facility] 36on 06-06-2025 36 Patient is going out of town in July and she normally gets her Oxycodone on the each other, she will be leaving to go on vacation August 08 and wanted to know if you could refill her Oxycodone on or before the 08 of August. She states that if you have any questions, you can call her and can explain it to you. Normal [facility] 37on 06-05-2025 37 Check BP at home daily. We will drop amlodipine to 5mg from 10mg. Call in 2 weeks with the BP results. [facility] Office Visiton 06-05-2025 Follow-up visit [id number] Kelly Perez 1955 F Date Provider Department Center 06/05/2025 HARMONY EDOUARD [facility] INT MED Comprehensiv Family History Problem Relation Age of Onset Depression Mother Comments: ag 63 Diabetes Mother Hypertension Mother Heart disease Mother Cancer Father Comments: age 69 Lung cancer Sister Family Status - Relation Status Age at Mother Father Sister Level of Service:G0439 CO PPPS, SUBSEQ VISIT Reason for Visit and Comments: Medicare Annual Wellness Visit Initial [676] - Itchy lump on top rt hand Normal [facility] TISSUE EXAMon 05-30-2025 TISSUE EXAM Surgical Pathology Report Case: [id number] Authorizing Provider: Ruiz Alcantar Collected: 05/30/2025 11:41 AM MD Jackie Ordering Location: [facility] Received: 05/30/2025 02:38 PM Endoscopy Pathologist: Smiley Stewart MD Specimens: A) - Stomach, Antrum, mild gastritis, check for h pylori B) - Gastric, polyp biopsy X2 C) - Gastroesophageal Junction A. Stomach, biopsy: Mild chronic gastritis. No H. Pylori organisms seen on routine H&E stained sections. B. Stomach polyps X 2, biopsy: Polypoid foveolar hyperplasia with benign smooth muscle proliferation. C. Gastroesophageal junction, biopsy: Squamoglandular junctional mucosa with mild chronic inflammation. No evidence of intestinal metaplasia. at 0810 EDT Antibody/Reagent Block Slide Result (staining pattern) Desmin B1 Individual Highlights smooth muscle proliferation CD117 B1 Individual Highlights scattered mast cells SOX-10 B1 Individual Negative Notice: All controls show appropriate activity. The technical component was performed at [facility], [address] [place] [address]. The HER2 and ER immunohistochemistry protocols are approved by the U.S. Food and Drug Administration. Immunohistochemical and ZARIA assays use biotin-free polymer detection system. Other immunophenotyping or in-situ hybridization (ZARIA) tests and their performance characteristics were determined by [facility]. They have not been cleared or approved by the US Food and Drug Administration. The FDA does not require these tests to go through premarket FDA review. These tests are used for clinical purposes. These should not be regarded as investigational or for research. This laboratory is certified under the Clinical Laboratory Improvement Amendments (CLIA) as qualified to perform high complexity clinical laboratory testing. The IDH-1 test uses a reagent labeled by the physician office clin asst as research use only and it is used per physician office clin asst's instructions. This test has not been cleared or approved by the U.S. Food and Drug Administration. Its performance characteristics were determined by [facility] in a manner consistent with CLIA requirements. R11.0 Specimen A. Received in formalin labeled Matthew Perezine and designated stomach, antrum are two haynes pieces, measuring 0.2 and 0.4 cm. All 2/1. Specimen B. Received in formalin labeled Matthew ePrezine and designated gastric are three haynes pieces, measuring 0.3 cm each. All 3/1. Specimen C. Received in formalin labeled Matthew Perez and designated gastroesophageal junction are three haynes pieces, measuring 0.1 to 0.3 cm. All 3/1. EWW/NLS Gross examination performed at: [facility] - [address] [place] [address] Microscopic examination is performed. Normal [facility] Comment on above: Performed By: #### [id number] ####[facility] [address] [address] Garcia Rollins M.D. [id number] US ABDOMEN LIMITED STUDYon 0 05-30-2025 US ABDOMEN LIMITED STUDY EXAMINATION: US ABDOMEN LIMITED STUDY HISTORY: ORDERING SYSTEM PROVIDED HISTORY: Nausea, TECHNOLOGIST PROVIDED HISTORY: Illness/Other Reason for exam: Nausea Cancer History: NO Surgery, RadiationHistory: No Encounter Type: Initial Additional signs and symptoms: None ORDERING SYSTEM PROVIDED DIAGNOSIS CODES: R11.0 Nausea COMPARISON: CT from 08/06/2024 TECHNIQUE: Ultrasound of the right upper quadrant abdomen. FINDINGS: Liver: Normal in size, contour and echogenicity. No intrahepatic biliary ductal dilatation. Measures 13.2 cm. Gallbladder: No cholelithiasis, pericholecystic fluid or gallbladder wall thickening. Common bile duct: Normal in diameter, measuring 0.8 cm. Right kidney: Normal in size and echogenicity measuring 9.4 cm. No hydronephrosis or renal calculus. Miscellaneous: None. Visualized inferior vena cava is patent. IMPRESSION: No acute abnormalities. Workstation ID: [id number] Dictated by: RAY NANCE on TueMay 30, 2025 10:41:33 AM EDT Transcribed by: RAY NANCE on TueMay 30, 2025 10:41:33 AM EDT Finalized by: RAY NANCE on TueMay 30, 2025 10:41:33 AM EDT Normal [facility] Comment on above: Order Comment: Injur y/Trauma or Illness?:Illness/Other Pt stated she was raking in yard and felt off balance and fell, BS108 left AC IV VS 163/110 hr74 NC 3L HX CHF COPD verigo How long have you had these symptoms (acute/chronic)?:Acute Reason for exam?:Pt stated she was raking in yard and felt off balance and fell, BS108 left AC IV VS 163/110 hr74 NC 3L HX CHF COPD verigo Type of Exam?:Initial Additional signs and symptoms?:Pt stated she was raking in yard and felt off balance and fell, BS108 left AC IV VS 163/110 hr74 NC 3L HX CHF COPD verigo [facility] 05-27-2025 Refill [id number] Kelly Perez 1955 F Date Provider Department Center 05/27/2025 [id number], JILL [facility] INT MED Comprehensiv Family History Problem Relation Age of Onset Depression Mother Comments: ag 63 Diabetes Mother Hypertension Mother Heart disease Mother Cancer Father Comments: age 69 Lung cancer Sister Family Status - Relation Status Age at Mother Father Sister Reason for Visit and Comments: Med Refill [[id number]] Normal [facility] 05-24-2025 36 Duplicate request. Normal [facility] 05-23-2025 36 Refill request for Requested Prescriptions Pending Prescriptions Disp Refills clonazePAM (KlonoPIN) 1 mg tablet [Pharmacy Med Name: CLONAZEPAM 1MG TABLETS] 60 tablet Sig: TAKE 1 TABLET BY MOUTH EVERY MORNING AND EVERY NIGHT AT BEDTIME NEEDED FOR ANXIETY Recent Visits Date Type Provider Dept 12/31/24 Office Visit Harmony Gee MD [facility] [employer] 05/08/24 Office Visit Kiran Cook PA-C [facility] [employer] Showing recent visits within past 540 days with a meds authorizing provider and meeting all other requirements Future Appointments Date Type Provider Dept 06/05/25 Appointment Harmony Gee MD [facility] [employer] Showing future appointments within next 150 days with a meds authorizing provider and meeting all other requirements BP Readings from Last 3 Encounters: 12/31/24 (!) 158/96 05/08/24 117/78 03/28/24 (!) 143/94 Health Maintenance Topic Date Due Medicare Annual Wellness (AWV) Never done Colorectal Cancer Screening Never done Diabetes: Retinopathy Screening Never done Mammogram Never done Diabetes: Urine Protein Screening 03/04/2022 Diabetes: Hemoglobin A1C 03/27/2024 COVID-19 Vaccine ( season) 2024 Influenza Vaccine (1) 07/01/2025 Depression Screening 12/31/2025 Fall Risk Screening 12/31/2025 Adult Tetanus 04/23/2029 Pneumococcal Vaccine: 50+ Years Completed Zoster Vaccines Completed HIB Vaccines Aged Out IPV Vaccines Aged Out Meningococcal Vaccine Aged Out Rotavirus Vaccines Aged Out HPV Vaccines Aged Out Meningococcal B Vaccine Aged Out No components found for: LABA1C No components found for: LABMICR LDL Calculated (mg/dL) Date Value 12/31/2024 105 AST (U/L) Date Value 12/31/2024 18 ALT (SGPT) (U/L) Date Value 12/31/2024 10 BUN (mg/dL) Date Value 12/31/2024 16 Patient Active Problem List Diagnosis Osteoarthritis of knee Rotator cuff syndrome Chronic obstructive lung disease (CMS/HCC) Chronic pain syndrome Disorder of lung Essential hypertension Fibromyositis Full thickness rotator cuff tear Gastroesophageal reflux disease Generalized anxiety disorder Hyperlipidemia Insomnia Irritable bowel syndrome Low back pain Malaise and fatigue Memory impairment Migraine Obstructive sleep apnea syndrome Peripheral venous insufficiency Pneumonia Restless legs Sleep disorder Vaginal enterocele Spinal stenosis in cervical region Varicose veins of lower extremity Vertigo Asthma Balance disorder Cataract Chest pain DDD (degenerative disc disease), lumbar Diastolic dysfunction Difficulty walking Displacement of cervical intervertebral disc without myelopathy Dysphagia Encounter for long-term use of opiate analgesic History of falling Hoarseness Hypokalemia Inguinal pain Left arm pain Lung nodules Presbycusis of both ears S/P total hip arthroplasty Status post lumbar spinal fusion Urge urinary incontinence Tinnitus aurium, bilateral Intermittent claudication Class 1 obesity with body mass index (BMI) of 32.0 to 32.9 in adult Chronic diastolic congestive heart failure (CMS/HCC) History of pulmonary embolism Severe recurrent major depression without psychotic features (CMS/HCC) Simple chronic bronchitis (CMS/HCC) Type 2 diabetes mellitus, without long-term current use of insulin (CMS/HCC) Type 2 diabetes mellitus with polyneuropathy (CMS/HCC) Normal [facility] Refillon 05-23-2025 Refill [id number] Kelly Perez 1955 F Date Provider Department Center 05/23/2025 HARMONY EDOUARD [facility] INT MED Comprehensiv Family History Problem Relation Age of Onset Depression Mother Comments: ag 63 Diabetes Mother Hypertension Mother Heart disease Mother Cancer Father Comments: age 69 Lung cancer Sister Family Status - Relation Status Age at Mother Father Sister Reason for Visit and Comments: Med Refill [[id number]] Normal [facility] 36on 05-16-2025 36 Please review. Juan rausch you. Normal [facility] ECHOCARDIOGRAM COMPLETEon ECHOCARDIOGRAM COMPLETE Patient Info Name: MATTHEW PEREZ Age: 70 years : 1955 Gender: Female Ht: 157 cm Wt: 81 kg BSA: 1.91 m2 BP: 102 / 57 mmHg Technical Quality: Technically difficult Exam Date: 05/16/2025 2:47 PM Patient Status: Outpatient Distillation Operator Helper: mAbar, Aiyana, RDCS, RDMS, RVT Exam Type: ECHOCARDIOGRAM COMPLETE Study Info Indications I50.9 - Heart failure, unspecified Attending Physician: DC WELLS Referring Physician: DC WELLS ; [id number] BMI: 32.56 kg/m2 Summary 1. Normal cardiac chamber sizes. 2. There is left ventricular concentric remodeling. 3. Left ventricular systolic function is normal with an ejection fraction by Biplane Method of Discs of 62 %. 4. Left ventricular segmental wall motion is normal. 5. There is normal diastolic function. 6. Right ventricular systolic function is normal. 7. There is mild tricuspid valve regurgitation. 8. There is no significant Aortic Stenosis. The peak anterograde flow velocity across the aortic valve is 1.7 m/s (Normal <1.5 m/s) and mean pressure gradient is 6 mm of Hg. Mild AR. 9. The proximal ascending aorta is mildly dilated measuring 3.8 cm with an index of 2.0 cm/m2. 10. There is no pericardial effusion. History/Risk Factors Hypertension: Yes Obesity: Yes History/Risk Factors Patient has a history of hypertension and obesity. Procedure(s): Complete two-dimensional, color flow and Doppler transthoracic echocardiogram is performed. Left Ventricle Left ventricular chamber dimension is normal. Left ventricular systolic function is normal with an ejection fraction by Biplane Method of Discs of 62 %. Normal left ventricular mass. Left ventricular segmental wall motion is normal. There is normal diastolic function. There is left ventricular concentric remodeling. Right Ventricle Right ventricular size and systolic function are normal. Right ventricular systolic function is normal. Ventricular Septum Intact interventricular septum visualized by 2D imaging. Left Atria Left atrial chamber is normal with a left atrial volume index of 29 ml/m2 by BP MOD. Right Atria Right atrial chamber dimension is normal. Atrial Septum Intact interatrial septum visualized by 2D imaging. Aortic Valve The aortic valve is trileaflet. There is no aortic valve sclerosis. There is no significant Aortic Stenosis. The peak anterograde flow velocity across the aortic valve is 1.7 m/s (Normal <1.5 m/s) and mean pressure gradient is 6 mm of Hg. Mild AR. There is mild aortic valve regurgitation. Pulmonic Valve The pulmonic valve is normal. There is no pulmonic valve stenosis. There is trace pulmonic regurgitation. Mitral Valve The mitral valve has normal leaflets. There is no mitral valve stenosis. There is no mitral valve regurgitation. Tricuspid Valve The tricuspid valve leaflets are normal. There is no significant tricuspid valve stenosis. There is mild tricuspid valve regurgitation. There is no pulmonary hypertension, estimated right ventricle systolic pressure is 34 mmHg. Pericardium/Pleural The pericardium appears normal. There is no pericardial effusion. Inferior Vena Cava Normal inferior vena cava with >50% collapse upon inspiration consistent with normal right atrial pressure. Aorta The aortic measurements are indexed to age and body surface area. The aortic root is mildly dilated measuring 3.6 cm with an index of 1.9 cm/m2. The proximal ascending aorta is mildly dilated measuring 3.8 cm with an index of 2.0 cm/m2. Left Ventricular Outflow Tract ---- Name Value Normal ---- LVOT 2D ---- LVOT Diameter 2.6 cm LVOT Doppler ---- LVOT Peak Velocity 1.1 m/s LVOT Peak Gradient 5 mmHg LVOT Mean Gradient 3 mmHg LVOT VTI 23 cm LVOT VTI/AV VTI Ratio 0.7 LVOT Stroke Volume 119 ml LVOT Stroke Index 62.13 ml/m2 Pulmonic Valve ---- Name Value Normal ---- RVOT Doppler ---- RVOT Peak Velocity 75 cm/s RVOT Peak Gradient 2 mmHg RVOT Mean Gradient 1 mmHg RVOT VTI 17 cm PV Doppler ---- PV Peak Velocity 1.08 m/s PV Peak Gradient 4 mmHg PV Regurgitation Doppler ---- CO Peak Gradient 4 mmHg CO Peak End Diastolic Velocity 97 cm/s Mitral Valve ------ (more content not included)... 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 Normal cardiac chamber sizes. 2. There is left ventricular concentric remodeling. 3. Left ventricular systolic function is normal with an ejection fraction by Biplane Method of Discs of 62 %. 4. Left ventricular segmental wall motion is normal. 5. There is normal diastolic function. 6. Right ventricular systolic function is normal. 7. There is mild tricuspid valve regurgitation. 8. There is no significant Aortic Stenosis. The peak anterograde flow velocity across the aortic valve is 1.7 m/s (Normal <1.5 m/s) and mean pressure gradient is 6 mm of Hg. Mild AR. 9. The proximal ascending aorta is mildly dilated measuring 3.8 cm with an index of 2.0 cm/m2. 10. There is no pericardial effusion. History/Risk Factors Hypertension: Yes Obesity: Yes History/Risk Factors Patient has a history of hypertension and obesity. Procedure(s): Complete two-dimensional, color flow and Doppler transthoracic echocardiogram is performed. Left Ventricle Left ventricular chamber dimension is normal. Left ventricular systolic function is normal with an ejection fraction by Biplane Method of Discs of 62 %. Normal left ventricular mass. Left ventricular segmental wall motion is normal. There is normal diastolic function. There is left ventricular concentric remodeling. Right Ventricle Right ventricular size and systolic function are normal. Right ventricular systolic function is normal. Ventricular Septum Intact interventricular septum visualized by 2D imaging. Left Atria Left atrial chamber is normal with a left atrial volume index of 29 ml/m2 by BP MOD. Right Atria Right atrial chamber dimension is normal. Atrial Septum Intact interatrial septum visualized by 2D imaging. Aortic Valve The aortic valve is trileaflet. There is no aortic valve sclerosis. There is no significant Aortic Stenosis. The peak anterograde flow velocity across the aortic valve is 1.7 m/s (Normal <1.5 m/s) and mean pressure gradient is 6 mm of Hg. Mild AR. There is mild aortic valve regurgitation. Pulmonic Valve The pulmonic valve is normal. There is no pulmonic valve stenosis. There is trace pulmonic regurgitation. Mitral Valve The mitral valve has normal leaflets. There is no mitral valve stenosis. There is no mitral valve regurgitation. Tricuspid Valve The tricuspid valve leaflets are normal. There is no significant tricuspid valve stenosis. There is mild tricuspid valve regurgitation. There is no pulmonary hypertension, estimated right ventricle systolic pressure is 34 mmHg. Pericardium/Pleural The pericardium appears normal. There is no pericardial effusion. Inferior Vena Cava Normal inferior vena cava with >50% collapse upon inspiration consistent with normal right atrial pressure. Aorta The aortic measurements are indexed to age and body surface area. The aortic root is mildly dilated measuring 3.6 cm with an index of 1.9 cm/m2. The proximal ascending aorta is mildly dilated measuring 3.8 cm with an index of 2.0 cm/m2. Left Ventricular Outflow Tract ---- Name Value Normal ---- LVOT 2D ---- LVOT Diameter 2.6 cm LVOT Doppler ---- LVOT Peak Velocity 1.1 m/s LVOT Peak Gradient 5 mmHg LVOT Mean Gradient 3 mmHg LVOT VTI 23 cm LVOT VTI/AV VTI Ratio 0.7 LVOT Stroke Volume 119 ml LVOT Stroke Index 62.13 ml/m2 Pulmonic Valve ---- Name Value Normal ---- RVOT Doppler (more content not included)... 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 Normal cardiac chamber sizes. 2. There is left ventricular concentric remodeling. 3. Left ventricular systolic function is normal with an ejection fraction by Biplane Method of Discs of 62 %. 4. Left ventricular segmental wall motion is normal. 5. There is normal diastolic function. 6. Right ventricular systolic function is normal. 7. There is mild tricuspid valve regurgitation. 8. There is no significant Aortic Stenosis. The peak anterograde flow velocity across the aortic valve is 1.7 m/s (Normal <1.5 m/s) and mean pressure gradient is 6 mm of Hg. Mild AR. 9. The proximal ascending aorta is mildly dilated measuring 3.8 cm with an index of 2.0 cm/m2. 10. There is no pericardial effusion. History/Risk Factors Hypertension: Yes Obesity: Yes History/Risk Factors Patient has a history of hypertension and obesity. Procedure(s): Complete two-dimensional, color flow and Doppler transthoracic echocardiogram is performed. Left Ventricle Left ventricular chamber dimension is normal. Left ventricular systolic function is normal with an ejection fraction by Biplane Method of Discs of 62 %. Normal left ventricular mass. Left ventricular segmental wall motion is normal. There is normal diastolic function. There is left ventricular concentric remodeling. Right Ventricle Right ventricular size and systolic function are normal. Right ventricular systolic function is normal. Ventricular Septum Intact interventricular septum visualized by 2D imaging. Left Atria Left atrial chamber is normal with a left atrial volume index of 29 ml/m2 by BP MOD. Right Atria Right atrial chamber dimension is normal. Atrial Septum Intact interatrial septum visualized by 2D imaging. Aortic Valve The aortic valve is trileaflet. There is no aortic valve sclerosis. There is no significant Aortic Stenosis. The peak anterograde flow velocity across the aortic valve is 1.7 m/s (Normal <1.5 m/s) and mean pressure gradient is 6 mm of Hg. Mild AR. There is mild aortic valve regurgitation. Pulmonic Valve The pulmonic valve is normal. There is no pulmonic valve stenosis. There is trace pulmonic regurgitation. Mitral Valve The mitral valve has normal leaflets. There is no mitral valve stenosis. There is no mitral valve regurgitation. Tricuspid Valve The tricuspid valve leaflets are normal. There is no significant tricuspid valve stenosis. There is mild tricuspid valve regurgitation. There is no pulmonary hypertension, estimated right ventricle systolic pressure is 34 mmHg. Pericardium/Pleural The pericardium appears normal. There is no pericardial effusion. Inferior Vena Cava Normal inferior vena cava with >50% collapse upon inspiration consistent with normal right atrial pressure. Aorta The aortic measurements are indexed to age and body surface area. The aortic root is mildly dilated measuring 3.6 cm with an index of 1.9 cm/m2. The proximal ascending aorta is mildly dilated measuring 3.8 cm with an index of 2.0 cm/m2. Left Ventricular Outflow Tract ---- Name Value Normal ---- LVOT 2D ---- LVOT Diameter 2.6 cm LVOT Doppler ---- LVOT Peak Velocity 1.1 m/s LVOT Peak Gradient 5 mmHg LVOT Mean Gradient 3 mmHg LVOT VTI 23 cm LVOT VTI/AV VTI Ratio 0.7 LVOT Stroke Volume 119 ml LVOT Stroke Index 62.13 ml/m2 Pulmonic Valve ---- Name Value Normal ---- RVOT Doppler ---- RVOT Peak Velocity 75 cm/s RVOT Peak Gradient 2 mmHg RVOT Mean Gradient 1 mmHg RVOT VTI 17 cm PV Doppler ---- PV Peak Velocity 1.08 m/s PV Peak Gradient 4 mmHg PV Regurgitation Doppler ---- (more content not included)... [facility] Refillon 05-16-2025 Refill [id number] Kelly Perez 1955 Date Provider Department Center 05/16/2025 [id number] OCAMPO [facility] INT MED Comprehensiv Family History Problem Relation Age of Onset Depression Mother Comments: ag 63 Diabetes Mother Hypertension Mother Heart disease Mother Cancer Father Comments: age 69 Lung cancer Sister Family Status - Relation Status Age at Mother Father Sister Reason for Visit and Comments: Med Refill [[id number]] [facility] Refillon 05-10-2025 Refill [id number] Kelly Perez 1955 F Date Provider Department Center 05/10/2025 [id number] PIMENTEL [facility] INT MED Comprehensiv Family History Problem Relation Age of Onset Depression Mother Comments: ag 63 Diabetes Mother Hypertension Mother Heart disease Mother Cancer Father Comments: age 69 Lung cancer Sister Family Status - Relation Status Age at Mother Father Sister Reason for Visit and Comments: Med Refill [[id number]] [facility] No Panel Informationon 04-30 [facility] Cerv Spine 2 or 3 Viewson Cerv Spine 2 or 3 Views [facility] [address], [place] [id number] Cerv Spine 2 or 3 Views MR#: [id number] Acct: [id number] Name: MATTHEW PEREZ Rep #: [id number] : 1955 From: Jessy Garcia MD PCP: HARMONY GEE Status: REG CLI Study: Cerv Spine 2 or 3 Views Date of Exam: 04/25/25 Exam# [id number] Ordering Dr: Con Farr MD EXAM: XR Cervical Spine, 2 or 3 Views CLINICAL INDICATION: POSTLAMINECTOMY SYNDROME TECHNIQUE: Frontal and lateral views of the cervical spine. COMPARISON: No relevant prior studies available. FINDINGS: VERTEBRAE: Status post anterior fusion of C4-5 and C7-T1. No definite fracture. Normal alignment. DISC SPACES: See above. SOFT TISSUES: Unremarkable. RAD/Cerv Spine 2 or 3 Views IMPRESSION: Postoperative changes as above. Reading Location: [id number] CC: HARMONY GEE; Dr. Con Farr MD Squirrel Worker: Signed [facility] Knee 1 or 2 Viewson 04-25-20 Knee 1 or 2 Views [facility] [address], [place] [address] Knee 1 or 2 Views MR#: [id number] Acct: [id number] Name: MATTHEW PEREZ Rep #: [id number] : 1955 F 70 From: Jessy Garcia MD PCP: HARMONY GEE Status: REG CLI Study: Knee 1 or 2 Views Date of Exam: 04/25/25 Exam# [id number] Ordering Dr: Con Farr MD EXAM: XR Left Knee, 1 or 2 Views CLINICAL INDICATION: PAIN TECHNIQUE: Frontal and/or lateral views of the left knee. COMPARISON: No relevant prior studies available. FINDINGS: BONES/JOINTS: Severe degenerative changes of the medial compartment of the knee joint. No acute fracture. No dislocation. SOFT TISSUES: Soft tissue swelling. RAD/Knee 1 or 2 Views IMPRESSION: Degenerative changes as above. Reading Location: [id number] CC: HARMONY GEE; Dr. Con Farr MD Squirrel Worker: Signed Normal [facility] Knee 1 or 2 Views [facility] [address] [place] [id number] Knee 1 or 2 Views MR#: [id number] Acct: [id number] Name: MATTHEW PEREZ Rep #: [id number] : 1955 F 70 From: Jessy Garcia MD PCP: HARMONY GEE Status: REG CLI Study: Knee 1 or 2 Views Date of Exam: 04/25/25 Exam# [id number] Ordering Dr: Con Farr MD EXAM: XR Right Knee, 1 or 2 Views CLINICAL INDICATION: PAIN TECHNIQUE: Frontal and/or lateral views of the right knee. COMPARISON: No relevant prior studies available. FINDINGS: BONES/JOINTS: Total knee replacement. Intact hardware. Anatomic position. No acute fracture. No dislocation. SOFT TISSUES: Soft tissue swelling. RAD/Knee 1 or 2 Views IMPRESSION: Postoperative changes as above. Reading Location: [facility] CC: HARMONY GEE; Dr. Con Farr MD Squirrel Worker: Signed [facility] Refillon 04-22-2025 Refill [id number] Kelly Perez 1955 F Date Provider Department Center 04/22/2025 [id number], JILL [facility] INT MED Comprehensiv Family History Problem Relation Age of Onset Depression Mother Comments: ag 63 Diabetes Mother Hypertension Mother Heart disease Mother Cancer Father Comments: age 69 Lung cancer Sister Family Status - Relation Status Age at Mother Father Sister Reason for Visit and Comments: Med Refill [[id number]] Normal [facility] 36on 04-15-2025 36 Refill request for Requested Prescriptions Pending Prescriptions Disp Refills amLODIPine (Norvasc) 10 mg tablet [Pharmacy Med Name: amLODIPine BESYLATE 10MG TAB] 90 tablet Sig: TAKE 1 TABLET BY MOUTH EVERY MORNING Recent Visits Date Type Provider Dept 12/31/24 Office Visit Harmony Gee MD [facility] [employer] Installation Manager 05/08/24 Office Visit Kiran Cook PA-C [facility] [employer] Install[employer] Manager 12/14/23 Office Visit Tyler Giordano MD [facility] [employer] Installation Manager Showing recent visits within past 540 days with a meds authorizing provider and meeting all other requirements Future Appointments Date Type Provider Dept 06/05/25 Appointment Harmony Gee MD [facility] [employer] Installation Manager Showing future appointments within next 150 days with a meds authorizing provider and meeting all other requirements BP Readings from Last 3 Encounters: 12/31/24 (!) 158/96 05/08/24 117/78 03/28/24 (!) 143/94 Health Maintenance Topic Date Due Medicare Annual Wellness (AWV) Never done Colorectal Cancer Screening Never done Diabetes: Retinopathy Screening Never done Mammogram Never done Diabetes: Urine Protein Screening 03/04/2022 Diabetes: Hemoglobin A1C 03/27/2024 COVID-19 Vaccine ( season) 2024 Depression Screening 12/31/2025 Fall Risk Screening 12/31/2025 Adult Tetanus 04/23/2029 Influenza Vaccine Completed Pneumococcal Vaccine: 50+ Years Completed Zoster Vaccines Completed HIB Vaccines Aged Out IPV Vaccines Aged Out Meningococcal Vaccine Aged Out Rotavirus Vaccines Aged Out HPV Vaccines Aged Out Meningococcal B Vaccine Aged Out No components found for: LABA1C No components found for: LABMICR LDL Calculated (mg/dL) Date Value 12/31/2024 105 AST (U/L) Date Value 12/31/2024 18 ALT (SGPT) (U/L) Date Value 12/31/2024 10 BUN (mg/dL) Date Value 12/31/2024 16 Patient Active Problem List Diagnosis Osteoarthritis of knee Rotator cuff syndrome Chronic obstructive lung disease (CMS/HCC) Chronic pain syndrome Disorder of lung Essential hypertension Fibromyositis Full thickness rotator cuff tear Gastroesophageal reflux disease Generalized anxiety disorder Hyperlipidemia Insomnia Irritable bowel syndrome Low back pain Malaise and fatigue Memory impairment Migraine Obstructive sleep apnea syndrome Peripheral venous insufficiency Pneumonia Restless legs Sleep disorder Vaginal enterocele Spinal stenosis in cervical region Varicose veins of lower extremity Vertigo Asthma Balance disorder Cataract Chest pain DDD (degenerative disc disease), lumbar Diastolic dysfunction Difficulty walking Displacement of cervical intervertebral disc without myelopathy Dysphagia Encounter for long-term use of opiate analgesic History of falling Hoarseness Hypokalemia Inguinal pain Left arm pain Lung nodules Presbycusis of both ears S/P total hip arthroplasty Status post lumbar spinal fusion Urge urinary incontinence Tinnitus aurium, bilateral Intermittent claudication Class 1 obesity with body mass index (BMI) of 32.0 to 32.9 in adult Chronic diastolic congestive heart failure (CMS/HCC) History of pulmonary embolism Severe recurrent major depression without psychotic features (CMS/HCC) Simple chronic bronchitis (CMS/HCC) Type 2 diabetes mellitus, without long-term current use of insulin (CMS/HCC) Type 2 diabetes mellitus with polyneuropathy (CMS/HCC) Normal [facility] XR HAND LEFT 2 VIEWSon 04-12 XR HAND LEFT 2 VIEWS EXAMINATION: XR HAND LEFT 2 VIEWS 04/12/2025 2:16 pm HISTORY: ORDERING SYSTEM PROVIDED HISTORY: Unspecified osteoarthritis, unspecified site, TECHNOLOGIST PROVIDED HISTORY: Illness/Other Reason for exam: Rosalino hand pain Cancer History: NO Surgery, RadiationHistory: No Encounter Type: Initial Additional signs and symptoms: No ORDERING SYSTEM PROVIDED DIAGNOSIS CODES: M19.90 Unspecified osteoarthritis, unspecified site IMPRESSION: FINDINGS/ No acute fracture or dislocation. No significant degeneration. Workstation ID: [id number] Dictated by: TEE KNOWLES on [facility] Apr 13, 2025 10:39:01 AM EDT Transcribed by: TEE KNOWLES on [facility] Apr 13, 2025 10:39:01 AM EDT Finalized by: TEE KNOWLES on [facility] Apr 13, 2025 10:39:01 AM EDT [facility] Comment on above: Order Comment: Injur y/Trauma or Illness?:Illness/Other How long have you had these symptoms (acute/chronic)?:Chronic Reason for exam?:Rosalino hand pain History of cancer?:NO Surgeries, chemotherapy, or radiation?:No Type of Exam?:Initial Additional signs and symptoms?:No XR HAND RIGHT 2 VIEWSon 03-31 XR HAND RIGHT 2 VIEWS EXAMINATION: XR HAND RIGHT 2 VIEWS 04/12/2025 2:16 pm HISTORY: ORDERING SYSTEM PROVIDED HISTORY: Unspecified osteoarthritis, unspecified site, TECHNOLOGIST PROVIDED HISTORY: Illness/Other Reason for exam: Rosalino hand pain Cancer History: NO Surgery, RadiationHistory: No Encounter Type: Initial Additional signs and symptoms: No ORDERING SYSTEM PROVIDED DIAGNOSIS CODES: M19.90 Unspecified osteoarthritis, unspecified site IMPRESSION: FINDINGS/ No acute fracture or dislocation. No significant degeneration Workstation ID: [id number] Dictated by: TEE KNOWLES on [facility] Apr 13, 2025 10:28:58 AM EDT Transcribed by: TEE KNOWLES on [facility] Apr 13, 2025 10:28:58 AM EDT Finalized by: TEE KNOWLES on [facility] Apr 13, 2025 10:28:58 AM EDT [facility] Comment on above: Order Comment: Injur y/Trauma or Illness?:Illness/Other How long have you had these symptoms (acute/chronic)?:Chronic Reason for exam?:Rosalino hand pain History of cancer?:NO Surgeries, chemotherapy, or radiation?:No Type of Exam?:Initial Additional signs and symptoms?:No Refillon 04-11-2025 Refill [id number] Kelly Perez 1955 F Date Provider Department Center 04/11/2025 HARMONY EDOUARD [facility] INT MED Comprehensiv Family History Problem Relation Age of Onset Depression Mother Comments: ag 63 Diabetes Mother Hypertension Mother Heart disease Mother Cancer Father Comments: age 69 Lung cancer Sister Family Status - Relation Status Age at Mother Father Sister Reason for Visit and Comments: Med Refill [[id number]] [facility] Orders Onlyon 04-08-2025 Orders Only [id number] Kelly Perez 1955 F Date Provider Department Center 04/08/2025 NKECHI GAMING [facility] INT MED Comprehensiv Family History Problem Relation Age of Onset Depression Mother Comments: ag 63 Diabetes Mother Hypertension Mother Heart disease Mother Cancer Father Comments: age 69 Lung cancer Sister Family Status - Relation Status Age at Mother Father Sister [facility] Refillon 04-05-2025 Refill [id number] Kelly Perez 1955 F Date Provider Department Center 04/05/2025 HARMONY EDOUARD [facility] INT MED Comprehensiv Family History Problem Relation Age of Onset Depression Mother Comments: ag 63 Diabetes Mother Hypertension Mother Heart disease Mother Cancer Father Comments: age 69 Lung cancer Sister Family Status - Relation Status Age at Mother Father Sister Reason for Visit and Comments: Med Refill [[id number]] [facility] Refillon 03-19-2025 Refill [id number] Kelly Perez 1955 F Date Provider Department Center 03/19/2025 MICHAEL QUIROZ [facility] INT MED Comprehensiv Family History Problem Relation Age of Onset Depression Mother Comments: ag 63 Diabetes Mother Hypertension Mother Heart disease Mother Cancer Father Comments: age 69 Lung cancer Sister Family Status - Relation Status Age at Mother Father Sister Reason for Visit and Comments: Med Refill [[id number]] [facility] 36on 02-19-2025 36 The note from 5 indicates the patient was notified about the need to see ortho, I was under the impression the patient has had previous relationship with orthopedics near where she lives. She can follow up with them. If she wants a new referral that is fine. I created an orthopedic referral that can be sent to wherever she chooses to go. If she wants to see someone at [facility], please help her facilitate that. The percocet script was sent in. [facility] 36 Spoke with Pt and sh e is not happy with the level of response time as far as when encounters are responded to. I did however let her know that the encounters are being made and sent the same day as she calls. Pt wants to know if provider can send in a medication for arthritis. I read the message from prior encounter and she states that's he never spoke to anyone in regards to that response from provider. However, Pt still requesting medication for arthritis. Pt needs referral for Ortho placed. Please review. Thank you. [facility] 36on 02-11-2025 36 Pt states her arthritis is getting bad again and would like something sent to the pharmacy. [facility] Telephoneon 02-11-2025 Telephone [id number] Kelly Perez 1955 Provider Department Center 02/11/2025 HARMONY EDOUARD [facility] INT MED Comprehensiv Family History Problem Relation Age of Onset Depression Mother Comments: ag 63 Diabetes Mother Hypertension Mother Heart disease Mother Cancer Father Comments: age 69 Lung cancer Sister Family Status - Relation Status Age at Mother Father Sister Reason for Visit and Comments: Med Refill [[id number]] [facility] Refillon 01-10-2025 Refill [id number] Kelly Perez 1955 Provider Department Center 01/10/2025 [id number], JILL [facility] INT MED Comprehensiv Family History Problem Relation Age of Onset Depression Mother Comments: ag 63 Diabetes Mother Hypertension Mother Heart disease Mother Cancer Father Comments: age 69 Lung cancer Sister Family Status - Relation Status Age at Mother Father Sister Reason for Visit and Comments: Med Refill [[id number]] [facility] Patient Outreachon Patient Outreach [id number] Kelly Perez 1955 Provider Department Center 01/03/2025 Farida3PAULINO NORTH [facility] INT MED Comprehensiv Family History Problem Relation Age of Onset Depression Mother Comments: ag 63 Diabetes Mother Hypertension Mother Heart disease Mother Cancer Father Comments: age 69 Lung cancer Sister Family Status - Relation Status Age at Mother Father Sister Reason for Visit and Comments: Error (VOID this visit) [77] [facility] Patient Outreach [id number] Kelly Perez 1955 F Date Provider Department Center 01/03/2025 PAULINO LOMBARDO [facility] INT MED Comprehensiv Family History Problem Relation Age of Onset Depression Mother Comments: ag 63 Diabetes Mother Hypertension Mother Heart disease Mother Cancer Father Comments: age 69 Lung cancer Sister Family Status - Relation Status Age at Mother Father Sister Normal [facility] Orders Onlyon 01-02-2025 Orders Only [id number] Kelly Perez 1955 F Date Provider Department Center 01/02/2025 HRAMONY EDOUARD [facility] INT MED Comprehensiv Family History Problem Relation Age of Onset Depression Mother Comments: ag 63 Diabetes Mother Hypertension Mother Heart disease Mother Cancer Father Comments: age 69 Lung cancer Sister Family Status - Relation Status Age at Mother Father Sister Normal [facility] CBC WITH AUTO DIFFERENTIALon 12-31-2024 Basophils (Bld) [#/Vol] 0.06 10*3/uL Normal 0.00-0.20 [facility] Comment on above: Performed By: #### L [id number] #### [facility] (BEAKER) [address] [place] [address] Basophils/100 WBC (Bld) 0.8 % Normal 0.0-1.0 [facility] Comment on above: Performed By: #### L [id number] #### [facility] (BEAKER) [address] [place] [address] Eosinophils (Bld) [#/Vol] 0.32 10*3/uL Normal 0.00-0.50 [facility] Comment on above: Performed By: #### L [id number] #### [facility] (BEAKER) [address] [place] [address] Eosinophils/100 WBC (Bld) 4.3 % Normal 0.0-6.0 [facility] Comment on above: Performed By: #### L [id number] #### [facility] (BEAKER) [address] [place] [address] Erythrocyte distribution width (RBC) [Ratio] 13.5 % Normal 11.5-15.0 [facility] Comment on above: Performed By: #### L [id number] #### [facility] [address] [place] [address] ERYTHROCYTE MEAN CORPUSCULAR HEMOGLOBIN CONCENTRATION (G/DL) BY AUTOMATED 30.9 g/dL Low 32.0-35.0 [facility] Comment on above: Performed By: #### L [id number] #### [facility] [address] [place] [address] Hematocrit (Bld) [Volume fraction] 44.7 % Normal 36.0-48.0 [facility] Comment on above: Performed By: #### L [id number] #### [facility] ([facility] [address] [place] [address] Hemoglobin (Bld) [Mass/Vol] 13.8 g/dL Normal 12.0-15.0 [facility] Comment on above: Performed By: #### L [id number] #### [facility] ([facility] [address] [place] [address] Immature granulocytes (Bld) [#/Vol] 0.01 10*3/uL Normal 0.00-0.20 [facility] Comment on above: Performed By: #### L [id number] #### [facility] [address] [place] [address] Immature granulocytes/100 WBC (Bld) 0.1 % Normal 0.0-1.0 [facility] Comment on above: Performed By: #### L [id number] #### [facility] (BEAKER) [address] [place] [address] Lymphocytes (Bld) [#/Vol] 2.52 10*3/uL Normal 1.20-4.00 [facility] Comment on above: Performed By: #### L [id number] #### [facility] (BEAKER) [address] [place] [address] Lymphocytes/100 WBC (Bld) 33.9 % Normal 20.0-45.0 [facility] Comment on above: Performed By: #### L [id number] #### [facility] ([facility] [address] [place] [address] MCH (RBC) [Entitic mass] 25.7 pg Low 27.0-33.0 [facility] Comment on above: Performed By: #### L [id number] #### [facility] ([facility] [address] [place] [address] MCV (RBC) [Entitic vol] 83.2 fL Normal 82.0-98.0 [facility] Comment on above: Performed By: #### L [id number] #### [facility] ([facility] [address] [place] [address] Monocytes (Bld) [#/Vol] 0.72 10*3/uL Normal 0.10-1.00 [facility] Comment on above: Performed By: #### L [id number] #### [facility] ([facility] [address] [place] [address] Monocytes/100 WBC (Bld) 9.7 % Normal 5.0-12.0 [facility] Comment on above: Performed By: #### L [id number] #### [facility] ([facility] [address] [place] [address] Neutrophils (Bld) [#/Vol] 3.80 10*3/uL Normal 1.60-7.60 [facility] Comment on above: Performed By: #### L [id number] #### [facility] ([facility] [address] [place] [address] Neutrophils/100 WBC (Bld) 51.2 % Normal 40.0-72.0 [facility] Comment on above: Performed By: #### L [id number] #### [facility] [address] [place] [address] NRBC (PER 100 WBCS) BY AUTOMATED COUNT 0.0 % Normal 0 [facility] Comment on above: Performed By: #### L [id number] #### [facility] ([facility] [address] [place] [address] PLATELETS (10*3/UL) IN BLOOD AUTOMATED COUNT 144 10*3/uL Low 150-400 [facility] Comment on above: Performed By: #### L [id number] #### [facility] ([facility] [address] [place] [address] RBC (Bld) [#/Vol] 5.37 10*6/uL High 3.80-5.00 [facility] Comment on above: Performed By: #### L [id number] #### [facility] ([facility] [address] [place] [address] WBC (Bld) [#/Vol] 7.43 10*3/uL Normal 4.00-10.60 [facility] Comment on above: Performed By: #### L [id number] #### [facility] ([facility] [address] [place] [address] COMPREHENSIVE METABOLIC PANE Raymon 12-31-2024 Albumin [Mass/Vol] 4.4 g/dL Normal 3.5-5.7 [facility] Comment on above: Performed By: #### L [id number] #### [facility] ([facility] [address] [place] [address] ALP [Catalytic activity/Vol] 78 U/L Normal 34-104 [facility] Comment on above: Performed By: #### L [id number] #### [facility] ([facility] [address] [place] [address] ALT [Catalytic activity/Vol] 10 U/L Normal 7-52 [facility] Comment on above: Performed By: #### L [id number] #### [facility] ([facility] [address] [place] [address] Anion gap [Moles/Vol] 11 mmol/L Normal 7-20 [facility] Comment on above: Performed By: #### L [id number] #### [facility] ([facility] [address] [place] [address] AST [Catalytic activity/Vol] 18 U/L Normal 13-39 [facility] Comment on above: Performed By: #### L [id number] #### [facility] [address] [place] [address] Bilirubin [Mass/Vol] 0.7 mg/dL Normal 0.3-1.0 [facility] Comment on above: Performed By: #### L [id number] #### [facility] [address] [place] [address] Calcium [Mass/Vol] 9.6 mg/dL Normal 8.6-10.3 [facility] Comment on above: Performed By: #### L [id number] #### [facility] ([facility] [address] [place] [address] Chloride [Moles/Vol] 103 mmol/L Normal 98-107 [facility] Comment on above: Performed By: #### L [id number] #### [facility] ([facility] [address] [place] [address] CO2 [Moles/Vol] 32 mmol/L High 21-31 [facility] Comment on above: Performed By: #### L [id number] #### [facility] ([facility] [address] [place] [address] Creatinine [Mass/Vol] 0.61 mg/dL Normal 0.60-1.20 [facility] Comment on above: Performed By: #### L [id number] #### [facility] ([facility] [address] [place] [address] GLOMERULAR FILTRATION RATE ML/MIN/1.73 SQ M.PREDICTED 95.5 mL/min/1.73m*2 Normal >60.0 [facility] Comment on above: Result Comment: The [facility]???s estimated glomerular filtration rate (eGFR) will no longer include consideration of race in its calculation. The National Kid[employer] Foundation???s eGFR Task Force developed new recommendations for the estimation of the glomerular filtration rate in the [place] They recommend immediate implementation of the new equation refit without the race variable in all laboratories because the calculation does not include race. In addition to not including race in the calculation and reporting, it included diversity in its development, and has acceptable performance characteristics and potential consequences that do not disproportionately affect any one group of individuals. Performed By: #### L [id number] #### [facility] ([facility] [address] [place] [address] Glucose [Mass/Vol] 82 mg/dL Normal 70-100 [facility] Comment on above: Performed By: #### L [id number] #### [facility] ([facility] [address] [place] [address] Potassium [Moles/Vol] 4.7 mmol/L Normal 3.5-5.1 [facility] Comment on above: Performed By: #### L [id number] #### [facility] ([facility] [address] [place] [address] Protein [Mass/Vol] 7.4 g/dL Normal 6.0-8.3 [facility] Comment on above: Performed By: #### L [id number] #### [facility] ([facility] [address] [place] [address] Sodium [Moles/Vol] 141 mmol/L Normal 136-145 [facility] Comment on above: Performed By: #### L [id number] #### [facility] ([facility] [address] [place] [address] Urea nitrogen [Mass/Vol] 16 mg/dL Normal 7-25 [facility] Comment on above: Performed By: #### L [id number] #### [facility] ([facility] [address] [place] [address] UREA NITROGEN/CREATININE (MASS RATIO) IN SER/PLAS 26.2 Normal [facility] Comment on above: Performed By: #### L [id number] #### [facility] ([facility] [address] [place] [address] LIPID PANELon 12-31-2024 CHOL/HDL 2.5 mg/dL Normal [facility] Comment on above: Performed By: #### L [id number] ####[facility] (BEAKER)[address] [place] [address] Cholesterol [Mass/Vol] 209 mg/dL High 120-200 [facility] Comment on above: Performed By: #### L [id number] ####[facility] ([facility] [place] [address] Magnesium [Mass/Vol] 109 mg/dL Normal 40-149 [facility] Comment on above: Result Comment: TRIG LYCERIDE REFERENCE RANGE: 20 YEARS AND OLDER CARDIOVASCULAR RISK LESS THAN 150 mg/dL LOW RISK 150 TO 199 mg/dL BORDERLINE RISK 200 mg/dL AND GREATER HIGH RISK Performed By: #### L [id number] ####[facility] ([facility] [address] Magnesium [Mass/Vol] 105 mg/dL Normal 0-160 [facility] Comment on above: Performed By: #### L [id number] ####[facility] (BEAKER)[address] [place] [address] Magnesium [Mass/Vol] 82 mg/dL Normal 23-92 [facility] Comment on above: Performed By: #### L [id number] ####[facility] (BEAKER)[address] [place] [address] NON HDL CHOL. (LDL+VLDL) 127 Normal [facility] Comment on above: Performed By: #### L [id number] ####[facility] (BEAKER)[address] [place] [address] TOTAL VLDL-C 22 mg/dL Normal 0-40 [facility] Comment on above: Performed By: #### L [id number] ####[facility] (BEAKER)[address] [place] [address] Labon 12-31-2024 Lab [id number] Kelly Perez 1955 F Date Provider Department [place] 12/31/[address] [place] [address] LAB RESOURCE [facility] Comprehensiv Family History Problem Relation Age of Onset Depression Mother Comments: ag 63 Diabetes Mother Hypertension Mother Heart disease Mother Cancer Father Comments: age 69 Lung cancer Sister Family Status - Relation Status Age at Mother Father Sister Normal [facility] MAGNESIUMon 12-31-2024 Magnesium [Mass/Vol] 2.1 mg/dL Normal 1.9-2.7 [facility] Comment on above: Performed By: #### L [id number] ####[facility] [place] [address] Office Visiton 12-31-2024 Follow-up visit [id number] Kelly Perez 1955 Date Provider Department Center 12/31/2024 HARMONY EDOUARD [facility] INT MED Comprehensiv Family History Problem Relation Age of Onset Depression Mother Comments: ag 63 Diabetes Mother Hypertension Mother Heart disease Mother Cancer Father Comments: age 69 Lung cancer Sister Family Status - Relation Status Age at Mother Father Sister Level of Service:84669 CO OFFICE/OUTPATIENT ESTABLISHED MOD MDM 30 MIN Reason for Visit and Comments: Follow-up [[id number]] - Pt c/o groin pain when laying down x 1 month . Pt also has numbness in her left arm and pain, she does have appt schedule with neurology but its booked out. Normal [facility] PHOSPHORUSon 12-31-2024 Magnesium [Mass/Vol] 3.9 mg/dL Normal 2.5-5.0 [facility] Comment on above: Performed By: #### L [id number] ####[facility] [place] [address] 36on 12-20-2024 36 Patient notified. Normal [facility] 36on 12-19-2024 36 Patient state,she sa ramos Lynn in January.She state,he will sending over the report to see whether or not you want to treat her or if the specialist should treat.She is stating a possible vein infection. Normal [facility] Refillon 12-18-2024 Refill [id number] Kelly Perez 1955 F Date Provider Department Center 12/18/2024 [id number], JILL [facility] INT MED Comprehensiv Family History Problem Relation Age of Onset Depression Mother Comments: ag 63 Diabetes Mother Hypertension Mother Heart disease Mother Cancer Father Comments: age 69 Lung cancer Sister Family Status - Relation Status Age at Mother Father Sister Reason for Visit and Comments: Med Refill [[id number]] Normal [facility] Refillon 11-14-2024 Refill [id number] Kelly Perez 1955 F Date Provider Department Center 11/14/2024 HARMONY EDOUARD [facility] INT MED Comprehensiv Family History Problem Relation Age of Onset Depression Mother Comments: ag 63 Diabetes Mother Hypertension Mother Heart disease Mother Cancer Father Comments: age 69 Lung cancer Sister Family Status - Relation Status Age at Mother Father Sister Reason for Visit and Comments: Med Refill [[id number]] [facility] 36on 11-13-2024 36 Please review. Juan nk you. Normal [facility] Refillon 11-13-2024 Refill [id number] Kelly Perez 1955 F Date Provider Department Center 11/13/2024 [place] [facility] INT MED Comprehensiv Family History Problem Relation Age of Onset Depression Mother Comments: ag 63 Diabetes Mother Hypertension Mother Heart disease Mother Cancer Father Comments: age 69 Lung cancer Sister Family Status - Relation Status Age at Mother Father Sister Reason for Visit and Comments: Med Refill [[id number]] [facility] 36on 10-22-2024 36 Please review. Juan nk you. Normal [facility] Refillon 10-22-2024 Refill [id number] Kelly Perez 1955 F Date Provider Department Center 10/22/2024 HARMONY EDOUARD [facility] INT MED Comprehensiv Family History Problem Relation Age of Onset Depression Mother Comments: ag 63 Diabetes Mother Hypertension Mother Heart disease Mother Cancer Father Comments: age 69 Lung cancer Sister Family Status - Relation Status Age at Mother Father Sister Reason for Visit and Comments: Med Refill [[id number]] [facility] 36on 10-18-2024 36 Patient also requesting a Rx for Nystatin Powder given to her in hospital for rash in the fold of her leg. Normal [facility] Refillon 10-18-2024 Refill [id number] Kelly Perez 1955 F Date Provider Department Center 10/18/2024 HARMONY EDOUARD [facility] INT MED Comprehensiv Family History Problem Relation Age of Onset Depression Mother Comments: ag 63 Diabetes Mother Hypertension Mother Heart disease Mother Cancer Father Comments: age 69 Lung cancer Sister Family Status - Relation Status Age at Mother Father Sister Reason for Visit and Comments: Med Refill [[id number]] [facility] for Rehabilitation 36on 10-03-2024 36 Patient called bri briscoe that she started feeling ill this morning, chill, joint/muscle pain/achy, she states she is going out of town this weekend and it is non refundable. I offered her an appt, but she states she [place] 80 miles away, denies fever, but asked if you can send rx to her [facility] pharmacy? Please advise, thank you! Normal [facility] BASIC METABOLIC PANELon 10-1 Anion gap [Moles/Vol] 13 mmol/L Normal 10-20 [facility] Comment on above: Order Comment: Injur y/Trauma or Illness?:Illness/Other How long have you had these symptoms (acute/chronic)?:Unknown Reason for exam?:eval PTX History of cancer?:NO Surgeries, chemotherapy, or radiation?:NONCANCEROUS NODULE REMOVAL FROM LEFT LUNG RT TKR, Lt shoulder rotator cuff repair Type of Exam?:Unknown Additional signs and symptoms?:eval PTX Performed By: #### 4 [id number] ####[facility] [address] [place] [address] Garcia Rollins M.D. [id number] Calcium [Mass/Vol] 9.0 mg/dL Normal 8.4-10.2 [facility] Comment on above: Order Comment: Injur y/Trauma or Illness?:Illness/Other How long have you had these symptoms (acute/chronic)?:Unknown Reason for exam?:eval PTX History of cancer?:NO Surgeries, chemotherapy, or radiation?:NONCANCEROUS NODULE REMOVAL FROM LEFT LUNG RT TKR, Lt shoulder rotator cuff repair Type of Exam?:Unknown Additional signs and symptoms?:eval PTX Performed By: #### 4 [id number] ####[facility] [address] [place], [place] [address] Garcia Rollins M.D. [id number] Chloride [Moles/Vol] 101 mmol/L Normal 98-108 [facility] Comment on above: Order Comment: Injur y/Trauma or Illness?:Illness/Other How long have you had these symptoms (acute/chronic)?:Unknown Reason for exam?:eval PTX History of cancer?:NO Surgeries, chemotherapy, or radiation?:NONCANCEROUS NODULE REMOVAL FROM LEFT LUNG RT TKR, Lt shoulder rotator cuff repair Type of Exam?:Unknown Additional signs and symptoms?:eval PTX Performed By: #### 4 [id number] ####[facility] [address] [place], [place] [address] Garcia Rollins M.D. [id number] Creatinine [Mass/Vol] 0.46 mg/dL Low 0.60-1.10 [facility] Comment on above: Order Comment: Injur y/Trauma or Illness?:Illness/Other How long have you had these symptoms (acute/chronic)?:Unknown Reason for exam?:eval PTX History of cancer?:NO Surgeries, chemotherapy, or radiation?:NONCANCEROUS NODULE REMOVAL FROM LEFT LUNG RT TKR, Lt shoulder rotator cuff repair Type of Exam?:Unknown Additional signs and symptoms?:eval PTX Performed By: #### 4 6116 ####[facility] [address] [place], [place] [address] Garcia Rollins M.D. [id number] EGFR 102 mL/min/1.73 m2 Normal >=60 [facility] Comment on above: Order Comment: Injur y/Trauma or Illness?:Illness/Other How long have you had these symptoms (acute/chronic)?:Unknown Reason for exam?:eval PTX History of cancer?:NO Surgeries, chemotherapy, or radiation?:NONCANCEROUS NODULE REMOVAL FROM LEFT LUNG RT TKR, Lt shoulder rotator cuff repair Type of Exam?:Unknown Additional signs and symptoms?:eval PTX Result Comment: Felipa mated GFR was calculated using the 2020 CKD-EPI creatinine equation. Performed By: #### 4 6195 ####[facility] [address] [place], [place] [address] Garcia Rollins M.D. [id number] Glucose [Mass/Vol] 111 mg/dL High 65-99 [facility] Comment on above: Order Comment: Injur y/Trauma or Illness?:Illness/Other How long have you had these symptoms (acute/chronic)?:Unknown Reason for exam?:eval PTX History of cancer?:NO Surgeries, chemotherapy, or radiation?:NONCANCEROUS NODULE REMOVAL FROM LEFT LUNG RT TKR, Lt shoulder rotator cuff repair Type of Exam?:Unknown Additional signs and symptoms?:eval PTX Performed By: #### 4 [id number] ####[facility] [address] [place], [place] [address] Garcia Rollins M.D. [id number] HCO3 (Bld) [Moles/Vol] 29 mmol/L Normal 21-32 [facility] Comment on above: Order Comment: Injur y/Trauma or Illness?:Illness/Other How long have you had these symptoms (acute/chronic)?:Unknown Reason for exam?:eval PTX History of cancer?:NO Surgeries, chemotherapy, or radiation?:NONCANCEROUS NODULE REMOVAL FROM LEFT LUNG RT TKR, Lt shoulder rotator cuff repair Type of Exam?:Unknown Additional signs and symptoms?:eval PTX Performed By: #### 4 6162 ####[facility] [address] [place] [address] Garcia Rollins M.D. [id number] Potassium [Moles/Vol] 3.4 mmol/L Low 3.5-5.1 [facility] Comment on above: Order Comment: Injur y/Trauma or Illness?:Illness/Other How long have you had these symptoms (acute/chronic)?:Unknown Reason for exam?:eval PTX History of cancer?:NO Surgeries, chemotherapy, or radiation?:NONCANCEROUS NODULE REMOVAL FROM LEFT LUNG RT TKR, Lt shoulder rotator cuff repair Type of Exam?:Unknown Additional signs and symptoms?:eval PTX Performed By: #### 4 6124 ####[facility] [address] [place], [place] [address] Garcia Rollins M.D. [id number] Sodium [Moles/Vol] 140 mmol/L Normal 135-145 [facility] Comment on above: Order Comment: Injur y/Trauma or Illness?:Illness/Other How long have you had these symptoms (acute/chronic)?:Unknown Reason for exam?:eval PTX History of cancer?:NO Surgeries, chemotherapy, or radiation?:NONCANCEROUS NODULE REMOVAL FROM LEFT LUNG RT TKR, Lt shoulder rotator cuff repair Type of Exam?:Unknown Additional signs and symptoms?:eval PTX Performed By: #### 4 6124 ####[facility] [address] [place], [place] [address] Garcia Rollins M.D. [id number] Urea nitrogen [Mass/Vol] 15 mg/dL Normal 8-25 [facility] Comment on above: Order Comment: Injur y/Trauma or Illness?:Illness/Other How long have you had these symptoms (acute/chronic)?:Unknown Reason for exam?:eval PTX History of cancer?:NO Surgeries, chemotherapy, or radiation?:NONCANCEROUS NODULE REMOVAL FROM LEFT LUNG RT TKR, Lt shoulder rotator cuff repair Type of Exam?:Unknown Additional signs and symptoms?:eval PTX Performed By: #### 4 6124 ####[facility] [address] [place], [place] [address] Garcia Rollins M.D. [id number] Urea nitrogen/Creatinine [Mass ratio] 32.6 mg/mg High 10.0-20.0 [facility] Comment on above: Order Comment: Injur y/Trauma or Illness?:Illness/Other How long have you had these symptoms (acute/chronic)?:Unknown Reason for exam?:eval PTX History of cancer?:NO Surgeries, chemotherapy, or radiation?:NONCANCEROUS NODULE REMOVAL FROM LEFT LUNG RT TKR, Lt shoulder rotator cuff repair Type of Exam?:Unknown Additional signs and symptoms?:eval PTX Performed By: #### 4 6124 ####[facility] [address] [place] [address] Garcia Rollins M.D. [id number] CBCon 08-14-2024 AUTO NRBC 0.0 % Normal [facility] Comment on above: Performed By: #### 4 [id number] #### [facility] [address] [place] [address] Garcia Rollins M.D. [id number] AUTO NRBC ABS COUNT 0.00 K/mcL Normal 0.00-0.00 [facility] Comment on above: Performed By: #### 4 [id number] #### [facility] [address] [place] [address] Garcia Rollins M.D. [id number] Erythrocyte distribution width (RBC) [Ratio] 12.8 % Normal 11.6-14.8 [facility] Comment on above: Performed By: #### 4 [id number] #### [facility] [address] [place], [place] [address] Garcia Rollins M.D. [id number] Hematocrit (Bld) [Volume fraction] 34.4 % Low 36.0-46.0 [facility] Comment on above: Performed By: #### 4 [id number] #### [facility] [address] [place], [place] [address] Garcia Rollins M.D. [id number] Hemoglobin (Bld) [Mass/Vol] 10.8 g/dL Low 12.0-16.0 [facility] Comment on above: Performed By: #### 4 2318 #### [facility] [address] [place], [place] [address] Garcia Rollins M.D. [id number] MCH (RBC) [Entitic mass] 27.1 pg Normal 26.0-34.0 [facility] Comment on above: Performed By: #### 4 1018 #### [facility] [address] [place] [address] Garcia Rollins M.D. [id number] MCV (RBC) [Entitic vol] 86.2 fL Normal 80.0-100.0 [facility] Comment on above: Performed By: #### 4 [id number] #### [facility] [address] [place] [address] Garcia Rollins M.D. [id number] MEAN CORPUSCULAR HEMOGLOBIN CONC 31.4 g/dL Normal 31.0-37.0 [facility] Comment on above: Performed By: #### 4 [id number] #### [facility] [address] [place] [address] Garcia Rollins M.D. [id number] Platelet mean volume (Bld) [Entitic vol] 13.4 fL High 9.4-12.4 [facility] Comment on above: Performed By: #### 4 [id number] #### [facility] [address] [place], [place] [address] Garcia Rollins M.D. [id number] Platelets (Bld) [#/Vol] 147 10*3/uL Low 150-400 [facility] Comment on above: Result Comment: Resu lts checked Performed By: #### 4 [id number] #### [facility] [address] [place], [place] [address] Garcia Rollins M.D. [id number] RBC (Bld) [#/Vol] 3.99 10*6/uL Low 4.00-5.20 [facility] Comment on above: Performed By: #### 4 [id number] #### [facility] [address] [place], [place] [address] Garcia Rollins M.D. [id number] WBC (Bld) [#/Vol] 7.18 10*3/uL Normal 4.50-11.00 [facility] Comment on above: Performed By: #### 4 [id number] #### [facility] [address] [place], [place] [address] Garcia Rollins M.D. [id number] MAGNESIUM LEVELon 08-14-2024 Magnesium [Mass/Vol] 1.7 mg/dL Normal 1.6-2.4 [facility] Comment on above: Performed By: #### 4 6109 ####[facility] [address] [place] [address] Garcia Rollins M.D. [id number] PHOSPHORUSon 08-14-2024 Phosphate [Mass/Vol] 3.8 mg/dL Normal 2.8-4.1 [facility] Comment on above: Performed By: #### 4 [id number] #### [facility] [address] [place], [place] [address] Garcia Rollins M.D. [id number] BASIC METABOLIC PANELon 07-31 Anion gap [Moles/Vol] 12 mmol/L Normal 10-20 [facility] Comment on above: Order Comment: Injur y/Trauma or Illness?:Illness/Other How long have you had these symptoms (acute/chronic)?:Acute Reason for exam?:eval for pneumothorax History of cancer?:NO Surgeries, chemotherapy, or radiation?:NONCANCEROUS NODULE REMOVAL FROM LEFT LUNG RT TKR, Lt shoulder rotator cuff repair Type of Exam?:Subsequent/Follow-up Additional signs and symptoms?:eval for pneumothorax Performed By: #### 4 6124 ####[facility] [address] [place], [place] [address] Garcia Rollins M.D. [id number] Calcium [Mass/Vol] 8.6 mg/dL Normal 8.4-10.2 [facility] Comment on above: Order Comment: Injur y/Trauma or Illness?:Illness/Other How long have you had these symptoms (acute/chronic)?:Acute Reason for exam?:eval for pneumothorax History of cancer?:NO Surgeries, chemotherapy, or radiation?:NONCANCEROUS NODULE REMOVAL FROM LEFT LUNG RT TKR, Lt shoulder rotator cuff repair Type of Exam?:Subsequent/Follow-up Additional signs and symptoms?:eval for pneumothorax Performed By: #### 4 6174 ####[facility] [address] [place], [place] [address] Garcia Rollins M.D. [id number] Chloride [Moles/Vol] 102 mmol/L Normal 98-108 [facility] Comment on above: Order Comment: Injur y/Trauma or Illness?:Illness/Other How long have you had these symptoms (acute/chronic)?:Acute Reason for exam?:eval for pneumothorax History of cancer?:NO Surgeries, chemotherapy, or radiation?:NONCANCEROUS NODULE REMOVAL FROM LEFT LUNG RT TKR, Lt shoulder rotator cuff repair Type of Exam?:Subsequent/Follow-up Additional signs and symptoms?:eval for pneumothorax Performed By: #### 4 6124 ####[facility] [address] [place], [place] [address] Garcia Rollins M.D. [id number] Creatinine [Mass/Vol] 0.53 mg/dL Low 0.60-1.10 [facility] Comment on above: Order Comment: Injur y/Trauma or Illness?:Illness/Other How long have you had these symptoms (acute/chronic)?:Acute Reason for exam?:eval for pneumothorax History of cancer?:NO Surgeries, chemotherapy, or radiation?:NONCANCEROUS NODULE REMOVAL FROM LEFT LUNG RT TKR, Lt shoulder rotator cuff repair Type of Exam?:Subsequent/Follow-up Additional signs and symptoms?:eval for pneumothorax Performed By: #### 4 6124 ####[facility] [address] [place], [place] [address] Garcia Rollins M.D. [id number] EGFR 99 mL/min/1.73 m2 Normal >=60 [facility] Comment on above: Order Comment: Injur y/Trauma or Illness?:Illness/Other How long have you had these symptoms (acute/chronic)?:Acute Reason for exam?:eval for pneumothorax History of cancer?:NO Surgeries, chemotherapy, or radiation?:NONCANCEROUS NODULE REMOVAL FROM LEFT LUNG RT TKR, Lt shoulder rotator cuff repair Type of Exam?:Subsequent/Follow-up Additional signs and symptoms?:eval for pneumothorax Result Comment: Felipa mated GFR was calculated using the 2020 CKD-EPI creatinine equation. Performed By: #### 4 6114 ####[facility] [address] [place], [place] [address] Garcia Rollins M.D. [id number] Glucose [Mass/Vol] 93 mg/dL Normal 65-99 [facility] Comment on above: Order Comment: Injur y/Trauma or Illness?:Illness/Other How long have you had these symptoms (acute/chronic)?:Acute Reason for exam?:eval for pneumothorax History of cancer?:NO Surgeries, chemotherapy, or radiation?:NONCANCEROUS NODULE REMOVAL FROM LEFT LUNG RT TKR, Lt shoulder rotator cuff repair Type of Exam?:Subsequent/Follow-up Additional signs and symptoms?:eval for pneumothorax Performed By: #### 4 6182 ####[facility] [address] [place], [place] [address] Garcia Rollins M.D. [id number] HCO3 (Bld) [Moles/Vol] 31 mmol/L Normal 21-32 [facility] Comment on above: Order Comment: Injur y/Trauma or Illness?:Illness/Other How long have you had these symptoms (acute/chronic)?:Acute Reason for exam?:eval for pneumothorax History of cancer?:NO Surgeries, chemotherapy, or radiation?:NONCANCEROUS NODULE REMOVAL FROM LEFT LUNG RT TKR, Lt shoulder rotator cuff repair Type of Exam?:Subsequent/Follow-up Additional signs and symptoms?:eval for pneumothorax Performed By: #### 4 6180 ####[facility] [address] [place] [address] Garcia Rollins M.D. [id number] Potassium [Moles/Vol] 3.8 mmol/L Normal 3.5-5.1 [facility] Comment on above: Order Comment: Injur y/Trauma or Illness?:Illness/Other How long have you had these symptoms (acute/chronic)?:Acute Reason for exam?:eval for pneumothorax History of cancer?:NO Surgeries, chemotherapy, or radiation?:NONCANCEROUS NODULE REMOVAL FROM LEFT LUNG RT TKR, Lt shoulder rotator cuff repair Type of Exam?:Subsequent/Follow-up Additional signs and symptoms?:eval for pneumothorax Performed By: #### 4 6124 ####[facility] [address] [place] [address] Garcia Rollins M.D. [id number] Sodium [Moles/Vol] 141 mmol/L Normal 135-145 [facility] Comment on above: Order Comment: Injur y/Trauma or Illness?:Illness/Other How long have you had these symptoms (acute/chronic)?:Acute Reason for exam?:eval for pneumothorax History of cancer?:NO Surgeries, chemotherapy, or radiation?:NONCANCEROUS NODULE REMOVAL FROM LEFT LUNG RT TKR, Lt shoulder rotator cuff repair Type of Exam?:Subsequent/Follow-up Additional signs and symptoms?:eval for pneumothorax Performed By: #### 4 6124 ####[facility] [address] [place], [place] [address] Garcia Rollins M.D. [id number] Urea nitrogen [Mass/Vol] 14 mg/dL Normal 8-25 [facility] Comment on above: Order Comment: Injur y/Trauma or Illness?:Illness/Other How long have you had these symptoms (acute/chronic)?:Acute Reason for exam?:eval for pneumothorax History of cancer?:NO Surgeries, chemotherapy, or radiation?:NONCANCEROUS NODULE REMOVAL FROM LEFT LUNG RT TKR, Lt shoulder rotator cuff repair Type of Exam?:Subsequent/Follow-up Additional signs and symptoms?:eval for pneumothorax Performed By: #### 4 6124 ####[facility] [address] [place], [place] [address] Garcia Rollins M.D. [id number] Urea nitrogen/Creatinine [Mass ratio] 26.4 mg/mg High 10.0-20.0 [facility] Comment on above: Order Comment: Injur y/Trauma or Illness?:Illness/Other How long have you had these symptoms (acute/chronic)?:Acute Reason for exam?:eval for pneumothorax History of cancer?:NO Surgeries, chemotherapy, or radiation?:NONCANCEROUS NODULE REMOVAL FROM LEFT LUNG RT TKR, Lt shoulder rotator cuff repair Type of Exam?:Subsequent/Follow-up Additional signs and symptoms?:eval for pneumothorax Performed By: #### 4 6148 ####[facility] [address] [place], [place] [address] Garcia Rollins M.D. [id number] CBCon 08-13-2024 AUTO NRBC 0.0 % Normal [facility] Comment on above: Performed By: #### 4 [id number] #### [facility] [address] [place] [address] Garcia Rollins M.D. [id number] AUTO NRBC ABS COUNT 0.00 K/mcL Normal 0.00-0.00 [facility] Comment on above: Performed By: #### 4 [id number] #### [facility] [address] [place] [address] Garcia Rollins M.D. [id number] Erythrocyte distribution width (RBC) [Ratio] 12.9 % Normal 11.6-14.8 [facility] Comment on above: Performed By: #### 4 [id number] #### [facility] [address] [place], [place] [address] Garcia Rollins M.D. [id number] Hematocrit (Bld) [Volume fraction] 34.1 % Low 36.0-46.0 [facility] Comment on above: Performed By: #### 4 [id number] #### [facility] [address] [place], [place] [address] Garcia Rollins M.D. [id number] Hemoglobin (Bld) [Mass/Vol] 10.7 g/dL Low 12.0-16.0 [facility] Comment on above: Performed By: #### 4 [id number] #### [facility] [address] [place] [address] Garcia Rollins M.D. [id number] MCH (RBC) [Entitic mass] 27.0 pg Normal 26.0-34.0 [facility] Comment on above: Performed By: #### 4 [id number] #### [facility] [address] [place], [place] [address] Garcia Rollins M.D. [id number] MCV (RBC) [Entitic vol] 86.1 fL Normal 80.0-100.0 [facility] Comment on above: Performed By: #### 4 [id number] #### [facility] [address] [place] [address] Garcia Rollins M.D. [id number] MEAN CORPUSCULAR HEMOGLOBIN CONC 31.4 g/dL Normal 31.0-37.0 [facility] Comment on above: Performed By: #### 4 [id number] #### [facility] [address] [place] [address] Garcia Rollins M.D. [id number] Platelet mean volume (Bld) [Entitic vol] 12.7 fL High 9.4-12.4 [facility] Comment on above: Performed By: #### 4 [id number] #### [facility] [address] [place], [place] [address] Garcia Rollins M.D. [id number] Platelets (Bld) [#/Vol] 158 10*3/uL Normal 150-400 [facility] Comment on above: Performed By: #### 4 [id number] #### [facility] [address] [place], [place] [address] Garcia Rollins M.D. [id number] RBC (Bld) [#/Vol] 3.96 10*6/uL Low 4.00-5.20 [facility] Comment on above: Performed By: #### 4 [id number] #### [facility] [address] [place] [address] Garcia Rollins M.D. [id number] WBC (Bld) [#/Vol] 6.64 10*3/uL Normal 4.50-11.00 [facility] Comment on above: Performed By: #### 4 [id number] #### [facility] [address] [place] [address] Garcia Rollins M.D. [id number] BASIC METABOLIC PANELon 10-1 Anion gap [Moles/Vol] 12 mmol/L Normal 10-20 [facility] Comment on above: Order Comment: [facility] has implemented the eGFR calculation approach that does not have a coefficient for race that conforms to the NKF-ASN Task Force Recommendations. Performed By: #### 4 6124 #### [facility] [address] [place] [address] Garcia Rollins M.D. [id number] Calcium [Mass/Vol] 8.9 mg/dL Normal 8.4-10.2 [facility] Comment on above: Order Comment: [facility] has implemented the eGFR calculation approach that does not have a coefficient for race that conforms to the NKF-ASN Task Force Recommendations. Performed By: #### 4 6124 #### [facility] [address] [place] [address] Garcia Rollins M.D. [id number] Chloride [Moles/Vol] 103 mmol/L Normal 98-108 [facility] Comment on above: Order Comment: [facility] has implemented the eGFR calculation approach that does not have a coefficient for race that conforms to the NKF-ASN Task Force Recommendations. Performed By: #### 4 6124 #### [facility] [address] [place] [address] Garcia Rollins M.D. [id number] Creatinine [Mass/Vol] 0.47 mg/dL Low 0.60-1.10 [facility] Comment on above: Order Comment: [facility] has implemented the eGFR calculation approach that does not have a coefficient for race that conforms to the NKF-ASN Task Force Recommendations. Performed By: #### 4 6124 #### [facility] [address] [place] [address] Garcia Rollins M.D. [id number] EGFR 102 mL/min/1.73 m2 Normal >=60 [facility] Comment on above: Order Comment: [facility] has implemented the eGFR calculation approach that does not have a coefficient for race that conforms to the NKF-ASN Task Force Recommendations. Result Comment: Felipa mated GFR was calculated using the 2020 CKD-EPI creatinine equation. Performed By: #### 4 6124 #### [facility] [address] [place] [address] Garcia Rollins M.D. [id number] Glucose [Mass/Vol] 110 mg/dL High 65-99 [facility] Comment on above: Order Comment: [facility] has implemented the eGFR calculation approach that does not have a coefficient for race that conforms to the NKF-ASN Task Force Recommendations. Performed By: #### 4 6124 #### [facility] [address] [place] [address] Garcia Rollins M.D. [id number] HCO3 (Bld) [Moles/Vol] 33 mmol/L High 21-32 [facility] Comment on above: Order Comment: [facility] has implemented the eGFR calculation approach that does not have a coefficient for race that conforms to the NKF-ASN Task Force Recommendations. Performed By: #### 4 6124 #### [facility] [address] [place] [address] Garcia Rollins M.D. [id number] Potassium [Moles/Vol] 4.0 mmol/L Normal 3.5-5.1 [facility] Comment on above: Order Comment: [facility] [facility] has implemented the eGFR calculation approach that does not have a coefficient for race that conforms to the NKF-ASN Task Force Recommendations. Performed By: #### 4 [id number] #### [facility] [address] [place] [address] 58911 Garcia Rollins M.D. [id number] Sodium [Moles/Vol] 144 mmol/L Normal 135-145 [facility] Comment on above: Order Comment: [facility] has implemented the eGFR calculation approach that does not have a coefficient for race that conforms to the NKF-ASN Task Force Recommendations. Performed By: #### 4 [id number] #### [facility] [address] [place] [address] 77333 Garcia Rollins M.D. [id number] Urea nitrogen [Mass/Vol] 14 mg/dL Normal 8-25 [facility] Comment on above: Order Comment: [facility] has implemented the eGFR calculation approach that does not have a coefficient for race that conforms to the NKF-ASN Task Force Recommendations. Performed By: #### 4 [id number] #### [facility] [address] [place] [address] 98374 Garcia Rollins M.D. [id number] Urea nitrogen/Creatinine [Mass ratio] 29.8 mg/mg High 10.0-20.0 [facility] Comment on above: Order Comment: [facility] has implemented the eGFR calculation approach that does not have a coefficient for race that conforms to the NKF-ASN Task Force Recommendations. Performed By: #### 4 [id number] #### [facility] [address] [place] [address] 42653 Garcia Rollins M.D. [id number] CBCon 08-12-2024 AUTO NRBC 0.0 % Normal [facility] Comment on above: Performed By: #### 4 [id number] #### [facility] [address] [place] [address] 29712 Garcia Rollins M.D. [id number] AUTO NRBC ABS COUNT 0.00 K/mcL Normal 0.00-0.00 [facility] Comment on above: Performed By: #### 4 [id number] #### [facility] [address] [place], [place] [id number] Garcia Rollins M.D. [id number] Erythrocyte distribution width (RBC) [Ratio] 12.8 % Normal 11.6-14.8 [facility] Comment on above: Performed By: #### 4 [id number] #### [facility] [address] [place] [address] Garcia Rollins M.D. [id number] Hematocrit (Bld) [Volume fraction] 34.7 % Low 36.0-46.0 [facility] Comment on above: Performed By: #### 4 [id number] #### [facility] [address] [place] [address] Garcia Rollins M.D. [id number] Hemoglobin (Bld) [Mass/Vol] 11.7 g/dL Low 12.0-16.0 [facility] Comment on above: Performed By: #### 4 [id number] #### [facility] [address] [place], [place] [address] Garcia Rollins M.D. [id number] MCH (RBC) [Entitic mass] 29.3 pg Normal 26.0-34.0 [facility] Comment on above: Performed By: #### 4 [id number] #### [facility] [address] [place], [place] [address] Garcia Rollins M.D. [id number] MCV (RBC) [Entitic vol] 87.0 fL Normal 80.0-100.0 [facility] Comment on above: Performed By: #### 4 [id number] #### [facility] [address] [place] [address] Garcia Rollins M.D. [id number] MEAN CORPUSCULAR HEMOGLOBIN CONC 33.7 g/dL Normal 31.0-37.0 [facility] Comment on above: Performed By: #### 4 [id number] #### [facility] [address] [place] [address] 01680 Garcia Rollins M.D. [id number] Platelet mean volume (Bld) [Entitic vol] 13.1 fL High 9.4-12.4 [facility] Comment on above: Performed By: #### 4 [id number] #### [facility] [address] [place] [address] 79219 Garcia Rollins M.D. [id number] Platelets (Bld) [#/Vol] 138 10*3/uL Low 150-400 [facility] Comment on above: Performed By: #### 4 [id number] #### [facility] [address] [place] [address] 04690 Garcia Rollins M.D. [id number] RBC (Bld) [#/Vol] 3.99 10*6/uL Low 4.00-5.20 [facility] Comment on above: Result Comment: Amy pheral smear reviewed manually Performed By: #### 4 [id number] #### [facility] [address] [place] [address] 50942 Garcia Rollins M.D. [id number] WBC (Bld) [#/Vol] 8.57 10*3/uL Normal 4.50-11.00 [facility] Comment on above: Performed By: #### 4 [id number] #### [facility] [address] [place], [place] [address] Garcia Rollins M.D. [id number] BASIC METABOLIC PANELon - Anion gap [Moles/Vol] 11 mmol/L Normal 10-20 [facility] Comment on above: Order Comment: [facility] has implemented the eGFR calculation approach that does not have a coefficient for race that conforms to the NKF-ASN Task Force Recommendations. Performed By: #### 4 [id number] #### [facility] [address] [place] [address] 02001 Garcia Rollins M.D. [id number] Calcium [Mass/Vol] 8.6 mg/dL Normal 8.4-10.2 [facility] Comment on above: Order Comment: [facility] has implemented the eGFR calculation approach that does not have a coefficient for race that conforms to the NKF-ASN Task Force Recommendations. Performed By: #### 4 [id number] #### [facility] [address] [place] [address] 87655 Garcia Rollins M.D. [id number] Chloride [Moles/Vol] 104 mmol/L Normal 98-108 [facility] Comment on above: Order Comment: [facility] has implemented the eGFR calculation approach that does not have a coefficient for race that conforms to the NKF-ASN Task Force Recommendations. Performed By: #### 4 [id number] #### [facility] [address] [place], [place] [address] Garcia Rollins M.D. [id number] Creatinine [Mass/Vol] 0.39 mg/dL Low 0.60-1.10 [facility] Comment on above: Order Comment: [facility] has implemented the eGFR calculation approach that does not have a coefficient for race that conforms to the NKF-ASN Task Force Recommendations. Performed By: #### 4 [id number] #### [facility] [address] [place] [address] 61240 Garcia Rollins M.D. [id number] EGFR 107 mL/min/1.73 m2 Normal >=60 [facility] Comment on above: Order Comment: [facility] has implemented the eGFR calculation approach that does not have a coefficient for race that conforms to the NKF-ASN Task Force Recommendations. Result Comment: Felipa mated GFR was calculated using the 2020 CKD-EPI creatinine equation. Performed By: #### 4 [id number] #### [facility] [address] [place] [address] 04126 Garcia Rollins M.D. [id number] Glucose [Mass/Vol] 131 mg/dL High 65-99 [facility] Comment on above: Order Comment: [facility] has implemented the eGFR calculation approach that does not have a coefficient for race that conforms to the NKF-ASN Task Force Recommendations. Performed By: #### 4 [id number] #### [facility] [address] [place], [place] [address] Garcia Rollins M.D. [id number] HCO3 (Bld) [Moles/Vol] 28 mmol/L Normal 21-32 [facility] Comment on above: Order Comment: [facility] has implemented the eGFR calculation approach that does not have a coefficient for race that conforms to the NKF-ASN Task Force Recommendations. Performed By: #### 4 [id number] #### [facility] [address] [place], [place] [address] Garcia Rollins M.D. [id number] Potassium [Moles/Vol] 3.9 mmol/L Normal 3.5-5.1 [facility] Comment on above: Order Comment: [facility] has implemented the eGFR calculation approach that does not have a coefficient for race that conforms to the NKF-ASN Task Force Recommendations. Performed By: #### 4 [id number] #### [facility] [address] [place] [address] 43792 Garcia Rollins M.D. [id number] Sodium [Moles/Vol] 139 mmol/L Normal 135-145 [facility] Comment on above: Order Comment: [facility] has implemented the eGFR calculation approach that does not have a coefficient for race that conforms to the NKF-ASN Task Force Recommendations. Performed By: #### 4 6177 #### [facility] [address] [place], [place] [address] Garcia Rollins M.D. [id number] Urea nitrogen [Mass/Vol] 16 mg/dL Normal 8-25 [facility] Comment on above: Order Comment: [facility] has implemented the eGFR calculation approach that does not have a coefficient for race that conforms to the NKF-ASN Task Force Recommendations. Performed By: #### 4 [id number] #### [facility] [address] [place] [address] 96823 Garcia Rollins M.D. [id number] Urea nitrogen/Creatinine [Mass ratio] 41.0 mg/mg High 10.0-20.0 [facility] Comment on above: Order Comment: [facility] has implemented the eGFR calculation approach that does not have a coefficient for race that conforms to the NKF-ASN Task Force Recommendations. Performed By: #### 4 [id number] #### [facility] [address] [place], [place] [address] Garcia Rollins M.D. [id number] CBCon 08-11-2024 AUTO NRBC 0.0 % Normal [facility] Comment on above: Performed By: #### 4 [id number] ####[facility] [address] [place] [address] 83209 Garcia Rollins M.D. [id number] AUTO NRBC ABS COUNT 0.00 K/mcL Normal 0.00-0.00 [facility] Comment on above: Performed By: #### 4 [id number] ####[facility] [address] [place] [address] 72557 Garcia Rollins M.D. [id number] Erythrocyte distribution width (RBC) [Ratio] 13.1 % Normal 11.6-14.8 [facility] Comment on above: Performed By: #### 4 [id number] ####[facility] [address] [place] [address] 31508 Garcia Rollins M.D. [id number] Hematocrit (Bld) [Volume fraction] 35.9 % Low 36.0-46.0 [facility] Comment on above: Performed By: #### 4 [id number] ####[facility] [address] [place] [address] 83087 Garcia Rollins M.D. [id number] Hemoglobin (Bld) [Mass/Vol] 11.2 g/dL Low 12.0-16.0 [facility] Comment on above: Performed By: #### 4 [id number] ####[facility] [address] [place] [address] Garcia Rollins M.D. [id number] MCH (RBC) [Entitic mass] 26.9 pg Normal 26.0-34.0 [facility] Comment on above: Performed By: #### 4 [id number] ####[facility] [address] [place] [address] Garcia Rollins M.D. [id number] MCV (RBC) [Entitic vol] 86.1 fL Normal 80.0-100.0 [facility] Comment on above: Performed By: #### 4 [id number] ####[facility] [address] [place] [address] Garcia Rollins M.D. [id number] MEAN CORPUSCULAR HEMOGLOBIN CONC 31.2 g/dL Normal 31.0-37.0 [facility] Comment on above: Performed By: #### 4 [id number] ####[facility] [address] [place], [place] [address] Garcia Rollins M.D. [id number] PLATELET COUNT Normal [facility] Comment on above: Result Comment: Plat elets clumped on smear but appear decreased. If clinically indicated, please request a citrate platelet count Performed By: #### 4 [id number] ####[facility] [address] [place], [place] [address] Garcia Rollins M.D. [id number] Platelet mean volume (Bld) [Entitic vol] 13.1 fL High 9.4-12.4 [facility] Comment on above: Performed By: #### 4 [id number] ####[facility] [address] [place], [place] [address] Garcia Rollins M.D. [id number] RBC (Bld) [#/Vol] 4.17 10*6/uL Normal 4.00-5.20 [facility] Comment on above: Performed By: #### 4 [id number] ####[facility] [address] [place] [address] 01896 Garcia Rollins M.D. [id number] WBC (Bld) [#/Vol] 8.54 10*3/uL Normal 4.50-11.00 [facility] Comment on above: Performed By: #### 4 [id number] ####[facility] [address] [place] [address] 60814 Garcia Rollins M.D. [id number] XR CHEST PA/APon 08-11-2024 XR CHEST PA/AP EXAMINATION: PORTABLE SEMI UPRIGHT CHEST: 08/11/2024 AT 0442 HOURS. HISTORY: Dx: S22.41XA (Traumatic fracture of ribs of right side with pneumothorax) PULM OFFICE POLICIES/MILA SIGNED 02/26/[address] Freitas 04/2024 no shows s/p right-sided rib fracture fixation and 24-lithuanian chest tube placement. COMPARISON FILMS: Portable semi upright chest: 08/10/2024. IMPRESSION: FINDINGS/ 1. There is previous fixation of the right-sided ribs as well as there is hardware in the lower cervical spine, lower thoracic, upper lumbar spine, without interval change. There is some subcutaneous emphysema overlying the right hemithorax. 2. The patient is somewhat lordotic. The heart size remains mildly enlarged. The aorta is normal contour. 3. There is increased density at the right lung base probably effusion, atelectasis. Remaining lungs are clear. There is no pulmonary edema or pneumothorax. TREVOR/tunde Workstation ID: [id number] Dictated by: MILES CARNEY on Sat Aug 11, 2024 7:37:15 AM EDT Transcribed by: ALEX WILLIS on Sat Aug 11, 2024 8:29:10 AM EDT Finalized by: MILES CARNEY on Sat Aug 11, 2024 9:12:45 AM EDT Normal [facility] Comment on above: Order Comment: Injur y/Trauma or Illness?:Illness/Other How long have you had these symptoms (acute/chronic)?:Acute Reason for exam?:eval for pneumothorax History of cancer?:NO Surgeries, chemotherapy, or radiation?:NONCANCEROUS NODULE REMOVAL FROM LEFT LUNG RT TKR, Lt shoulder rotator cuff repair Type of Exam?:Subsequent/Follow-up Additional signs and symptoms?:eval for pneumothorax BASIC METABOLIC PANELon 10- Anion gap [Moles/Vol] 14 mmol/L Normal 10-20 [facility] Comment on above: Order Comment: [facility] has implemented the eGFR calculation approach that does not have a coefficient for race that conforms to the NKF-ASN Task Force Recommendations. Performed By: #### 4 [id number] #### [facility] [address] [place], [place] [address] Garcia Rollins M.D. [id number] Calcium [Mass/Vol] 8.8 mg/dL Normal 8.4-10.2 [facility] Comment on above: Order Comment: [facility] has implemented the eGFR calculation approach that does not have a coefficient for race that conforms to the NKF-ASN Task Force Recommendations. Performed By: #### 4 [id number] #### [facility] [address] [place] [address] Garcia Rollins M.D. [id number] Chloride [Moles/Vol] 100 mmol/L Normal 98-108 [facility] Comment on above: Order Comment: [facility] has implemented the eGFR calculation approach that does not have a coefficient for race that conforms to the NKF-ASN Task Force Recommendations. Performed By: #### 4 [id number] #### [facility] [address] [place], [place] [address] Garcia Rollins M.D. [id number] Creatinine [Mass/Vol] 0.51 mg/dL Low 0.60-1.10 [facility] Comment on above: Order Comment: [facility] has implemented the eGFR calculation approach that does not have a coefficient for race that conforms to the NKF-ASN Task Force Recommendations. Performed By: #### 4 [id number] #### [facility] [address] [place] [address] 03220 Garcia Rollins M.D. [id number] EGFR 100 mL/min/1.73 m2 Normal >=60 [facility] Comment on above: Order Comment: [facility] has implemented the eGFR calculation approach that does not have a coefficient for race that conforms to the NKF-ASN Task Force Recommendations. Result Comment: Felipa mated GFR was calculated using the 2020 CKD-EPI creatinine equation. Performed By: #### 4 [id number] #### [facility] [address] [place] [address] 95903 Garcia Rollins M.D. [id number] Glucose [Mass/Vol] 163 mg/dL High 65-99 [facility] Comment on above: Order Comment: [facility] has implemented the eGFR calculation approach that does not have a coefficient for race that conforms to the NKF-ASN Task Force Recommendations. Performed By: #### 4 [id number] #### [facility] [address] [place] [address] 66435 Garcia Rollins M.D. [id number] HCO3 (Bld) [Moles/Vol] 28 mmol/L Normal 21-32 [facility] Comment on above: Order Comment: [facility] has implemented the eGFR calculation approach that does not have a coefficient for race that conforms to the NKF-ASN Task Force Recommendations. Performed By: #### 4 [id number] #### [facility] [address] [place] [address] 87615 Garcia Rollins M.D. [id number] Potassium [Moles/Vol] 4.5 mmol/L Normal 3.5-5.1 [facility] Comment on above: Order Comment: [facility] has implemented the eGFR calculation approach that does not have a coefficient for race that conforms to the NKF-ASN Task Force Recommendations. Performed By: #### 4 [id number] #### [facility] [address] [place] [address] 09324 Garcia Rollins M.D. [id number] Sodium [Moles/Vol] 137 mmol/L Normal 135-145 [facility] Comment on above: Order Comment: [facility] has implemented the eGFR calculation approach that does not have a coefficient for race that conforms to the NKF-ASN Task Force Recommendations. Performed By: #### 4 [id number] #### [facility] [address] [place] [address] 40151 Garcia Rollins M.D. [id number] Urea nitrogen [Mass/Vol] 15 mg/dL Normal 8-25 [facility] Comment on above: Order Comment: [facility] has implemented the eGFR calculation approach that does not have a coefficient for race that conforms to the NKF-ASN Task Force Recommendations. Performed By: #### 4 [id number] #### [facility] [address] [place] [address] 65227 Garcia Rollins M.D. [id number] Urea nitrogen/Creatinine [Mass ratio] 29.4 mg/mg High 10.0-20.0 [facility] Comment on above: Order Comment: [facility] has implemented the eGFR calculation approach that does not have a coefficient for race that conforms to the NKF-ASN Task Force Recommendations. Performed By: #### 4 [id number] #### [facility] [address] [place] [address] 47204 Garcia Rollins M.D. [id number] CBCon 08-10-2024 AUTO NRBC 0.0 % Normal [facility] Comment on above: Performed By: #### 4 [id number] ####[facility] [address] [place] [address] 29199 Garcia Rollins M.D. [id number] AUTO NRBC ABS COUNT 0.00 K/mcL Normal 0.00-0.00 [facility] Comment on above: Performed By: #### 4 [id number] ####[facility] [address] [place], [place] [address] Garcia Rollins M.D. [id number] Erythrocyte distribution width (RBC) [Ratio] 13.0 % Normal 11.6-14.8 [facility] Comment on above: Performed By: #### 4 [id number] ####[facility] [address] [place] [address] Garcia Rollins M.D. [id number] Hematocrit (Bld) [Volume fraction] 41.9 % Normal 36.0-46.0 [facility] Comment on above: Performed By: #### 4 [id number] ####[facility] [address] [place], [place] [address] Garcia Rollins M.D. [id number] Hemoglobin (Bld) [Mass/Vol] 13.2 g/dL Normal 12.0-16.0 [facility] Comment on above: Performed By: #### 4 [id number] ####[facility] [address] [place], [place] [address] Garcia Rollins M.D. [id number] MCH (RBC) [Entitic mass] 27.0 pg Normal 26.0-34.0 [facility] Comment on above: Performed By: #### 4 [id number] ####[facility] [address] [place], [place] [address] Garcia Rollins M.D. [id number] MCV (RBC) [Entitic vol] 85.9 fL Normal 80.0-100.0 [facility] Comment on above: Performed By: #### 4 5282 ####[facility] [address] [place], [place] [address] Garcia Rollins M.D. [id number] MEAN CORPUSCULAR HEMOGLOBIN CONC 31.5 g/dL Normal 31.0-37.0 [facility] Comment on above: Performed By: #### 4 [id number] ####[facility] [address] [place] [address] 82295 Garcia Rollins M.D. [id number] Platelet mean volume (Bld) [Entitic vol] 13.6 fL High 9.4-12.4 [facility] Comment on above: Performed By: #### 4 [id number] ####[facility] [address] [place], [place] [address] Garcia Rollins M.D. [id number] Platelets (Bld) [#/Vol] 154 10*3/uL Normal 150-400 [facility] Comment on above: Result Comment: Resu lts checked Performed By: #### 4 [id number] ####[facility] [address] [place], [place] [address] Garcia Rollins M.D. [id number] RBC (Bld) [#/Vol] 4.88 10*6/uL Normal 4.00-5.20 [facility] Comment on above: Performed By: #### 4 [id number] ####[facility] [address] [place], [place] [address] Garcia Rollins M.D. [id number] WBC (Bld) [#/Vol] 12.58 10*3/uL High 4.50-11.00 [facility] Comment on above: Performed By: #### 4 [id number] ####[facility] [address] [place], [place] [address] Garcia Rollins M.D. [id number] OP NOTEon 08-10-2024 OP NOTE MATTHEW PEREZ TRACY [id number] 1955 DATE 08/09/2024 OPERATIVE REPORT SURGEON DORINDA COBB MD [employer] WORKER PAULO FONG MD, NETWORK STRATEGIST 2 RUBA TORO MD, NETWORK STRATEGIST 3 KELSIE SANTOS MD, RESIDENT PREOPERATIVE DIAGNOSES 1. Severe right-sided chest wall trauma. 2. Multiple displaced rib fractures. 3. Respiratory insufficiency. 4. Intractable pain. POSTOPERATIVE DIAGNOSES 1. Severe right-sided chest wall trauma. 2. Multiple displaced rib fractures. 3. Respiratory insufficiency. 4. Intractable pain. 5. Pulmonary injury with air leak. PROCEDURES 1. Right posttraumatic chest wall reconstruction. 2. Right fixation of ribs 4 through 7. 3. Right intercostal nerve block of levels 4, 5, 6, and 7. 4. Right tube thoracostomy. INDICATIONS Patient is a 69-year-old female who presented to [facility] status post fall. She had severe intractable pain. The patient was having limited mobility. She had respiratory insufficiency and was requiring supplemental oxygen. Due to intractable pain and respiratory insufficiency, I subsequently spoke to her about right-sided chest wall reconstruction. She had a number of right-sided displaced rib fractures and a pneumothorax. After the risks and benefits of surgery were discussed, she wished to proceed with an operation. Risks that we specifically discussed include bleeding, infection, adjacent organ injury. She wished to proceed. FINDINGS 1. The patient had an air leak intraoperatively with inspiration consistent with a small tear in the pulmonary parenchyma. 2. There was a small retained hemothorax. 3. Severe displaced rib fractures requiring debridement and re-approximation of edges.. TECHNIQUE Patient was brought in the operating room, placed in supine position on the OR table. Anesthesia team intubated the patient and administered general anesthetic throughout the entire procedure which was tolerated well. The patient was placed in left lateral decubitus position. The right chest was prepped with ChloraPrep and draped in sterile fashion. Bony prominences were padded to protect from peripheral nerve injury. A time-out was taken to ensure adequate DVT prophylaxis and preoperative antibiotics. A right-sided anterolateral longitudinal thoracotomy was made, going from the lateral portion of the pectoralis overlying rib #4 going inferiorly at approximately the anterior axillary line. Dissection was carried down with electrocautery until the clavipectoral fascia was entered. Clavipectoral fascia was opened up widely with the length of the skin incision. We were then able to palpate the rib fractures. The pectoralis muscle was able to be identified and it was bluntly as well as sharply from the underlying chest wall. We were able to palpate the rib fractures at that point which were displaced and there was some overlying soft tissue injury. Serratus anterior did require division especially away from the periosteum of the intercostal muscles in order to clearly expose the degree of injury. Ribs numbers 4, 5, 6, and 7 were all displaced and slightly comminuted. The fracture lines themselves required debridement sharply. The intercostal muscle was then divided after serrated anterior was cleaned off the superficial area of periosteum. The intercostal muscle was divided overlying ribs 4, 5, 6, and 7. We entered the chest cavity bluntly and a finger was placed within the pleura to clearly identify the degree of injury, especially underlying the deep surface of the fractures. After each of the rib fractures was cleaned off, they were manually reapproximated. A single 75 mm RibLoc U-Plus plate and 3 additional 50 mm RibLoc U-Plus plates were then used to reapproximate each of the fractures. An intermittent air leak was observed throughout the entirety of the procedure. We did clean out the pleural cavity, and there was a minimal retained hemothorax of approximately 150 cc of blood. There was good hemostasis after the plates were placed. We then performed an intercostal nerve block with Exparel injecting the medial and lateral edges of each of the fracture sites for an adequate field block. The entirety of 80 cc of Exparel was used in order to inject this plane on the inferior margin on each of the ribs. After this was done, a 24-Indonesian chest tube, which was straight, was passed through a separate stab incision going into the intercostal space and then into the pleural cavity atypically. The chest tube was held in place with a 0 Ethibond suture. The deep investing fascia of the musculature was then closed with a swaged-on 2-0 Vicryl suture. The clavipectoral fascia and deep dermis were closed with 0 Stratafix suture. Skin was closed with yosvany. The chest tube was hooked up to 20 mmHg suction. The patient overall tolerated the procedure well. She (more content not included)... Normal [facility] XR CHEST PA/APon 08-10-2024 XR CHEST PA/AP EXAMINATION: XR CHEST PA/AP 08/10/2024 3:59 pm HISTORY: ORDERING SYSTEM PROVIDED HISTORY: eval pneumothorax, TECHNOLOGIST PROVIDED HISTORY: Illness/Other Reason for exam: eval pneumothorax Cancer History: NO Surgery, RadiationHistory: NONCANCEROUS NODULE REMOVAL FROM LEFT LUNG Encounter Type: Unknown Additional signs and symptoms: eval pneumothorax ORDERING SYSTEM PROVIDED DIAGNOSIS CODES: S22.41XA Traumatic fracture of ribs of right side with pneumothorax S27.0XXA Traumatic fracture of ribs of right side with pneumothorax W19.XXXA Fall, initial encounter S22.41XA Multiple fractures of ribs, right side, initial encounter for closed fracture COMPARISON: PA chest from 08/10/2024. FINDINGS: Trachea is midline. Mediastinum is not widened. Heart size is mildly prominent. No pneumothorax is noted. Mild fluid and moderate atelectasis/infiltrate s are noted in the lung bases right side greater than left. Suture material is noted in the mid the lower left lung zone. Postsurgical changes are noted of the lower cervical spine and perhaps cervicothoracic junction and also of the lower thoracic spine extending to the lumbar spine cut off from the field of view. Postsurgical changes are noted of the right lateral chest wall and of proximal right and left humerus. IMPRESSION: 1. Mild stable cardiomegaly. 2. No obvious pneumothorax following recent chest tube removal. 3. Effusions with atelectasis versus less likely infiltrates in the lung bases right side greater than left similar to prior study. Workstation ID: [id number] Dictated by: LEW ESCALERA on TueAug 10, 2024 4:46:55 PM EDT Transcribed by: LEW ESCALERA on TueAug 10, 2024 4:46:55 PM EDT Finalized by: LEW ESCALERA on TueAug 10, 2024 4:46:55 PM EDT [facility] Comment on above: Order Comment: Injur y/Trauma or Illness?:Illness/Other How long have you had these symptoms (acute/chronic)?:Acute Reason for exam?:eval for pneumothorax History of cancer?:NO Surgeries, chemotherapy, or radiation?:NONCANCEROUS NODULE REMOVAL FROM LEFT LUNG RT TKR, Lt shoulder rotator cuff repair Type of Exam?:Subsequent/Follow-up Additional signs and symptoms?:eval for pneumothorax XR CHEST PA/AP EXAMINATION: PORTABLE CHEST - 08/10/2024 at 11:41 a.m. COMPARISON: Chest radiograph dated 08/10/2024 at 5:11 a.m. ADDITIONAL HISTORY: R chest tube removed, eval for pneumothorax IMPRESSION: 1. Interval removal of the right chest tube. No pneumothorax identified. No change in a small amount of pleural fluid/thickening in the inferolateral right chest. 2. Postoperative changes from plating of right-sided rib fractures as well as fusion hardware in the cervical and thoracolumbar spine. 3. Moderate patchy atelectasis/infiltrati ve changes in the right base and dependent atelectasis in the left base again noted, along with a staple line from wedge resection in the left mid lung, not significantly changed. [facility]/[employer] Workstation ID: [id number] Dictated by: ZAFAR RAWLS on TueAug 10, 2024 4:12:26 PM EDT Transcribed by: ROQUE LÓPEZ on TueAug 10, 2024 4:25:34 PM EDT Finalized by: ZAFAR RAWLS on TueAug 10, 2024 4:29:23 PM EDT Normal [facility] Comment on above: Order Comment: Injur y/Trauma or Illness?:Illness/Other How long have you had these symptoms (acute/chronic)?:Acute Reason for exam?:eval for pneumothorax History of cancer?:NO Surgeries, chemotherapy, or radiation?:NONCANCEROUS NODULE REMOVAL FROM LEFT LUNG RT TKR, Lt shoulder rotator cuff repair Type of Exam?:Subsequent/Follow-up Additional signs and symptoms?:eval for pneumothorax XR CHEST PA/AP EXAMINATION: PORTABLE CHEST - 08/10/2024 COMPARISON: Chest radiograph dated 08/09/2024. ADDITIONAL HISTORY: s/p right-sided rib fracture fixation and 24-lithuanian chest tube placement. IMPRESSION: 1. Right-sided chest tube tip extends into the medial right apex in similar position as the prior study. No pneumothorax is identified. 2. Plating of right-sided rib fractures, placement of posterior fusion hardware in the thoracolumbar spine, and anterior screw plates in the cervical spine again noted with hardware grossly intact. 3. Small amount of pleural fluid/thickening in the inferolateral right chest, grossly unchanged. 4. Moderate patchy atelectasis/infiltrati ve changes in the right base and mild dependent atelectasis in the left base again noted, not significantly changed. No new process is identified. [facility] Workstation ID: [id number] Dictated by: ZAFAR RAWLS on TueAug 10, 2024 11:51:35 AM EDT Transcribed by: PAT ORDAZ on TueAug 10, 2024 12:19:15 PM EDT Finalized by: ZAFAR RAWLS on TueAug 10, 2024 12:20:27 PM EDT Normal [facility] Comment on above: Order Comment: Injur y/Trauma or Illness?:Illness/Other How long have you had these symptoms (acute/chronic)?:Acute Reason for exam?:eval for pneumothorax History of cancer?:NO Surgeries, chemotherapy, or radiation?:NONCANCEROUS NODULE REMOVAL FROM LEFT LUNG RT TKR, Lt shoulder rotator cuff repair Type of Exam?:Subsequent/Follow-up Additional signs and symptoms?:eval for pneumothorax BASIC METABOLIC PANELon 10- Anion gap [Moles/Vol] 12 mmol/L Normal 10-20 [facility] Comment on above: Order Comment: [facility] has implemented the eGFR calculation approach that does not have a coefficient for race that conforms to the NKF-ASN Task Force Recommendations. Performed By: #### [id number] #### [facility] [address] [place], [place] [id number] Garcia Rollins M.D. [id number] Calcium [Mass/Vol] 8.9 mg/dL Normal 8.4-10.2 [facility] Comment on above: Order Comment: [facility] has implemented the eGFR calculation approach that does not have a coefficient for race that conforms to the NKF-ASN Task Force Recommendations. Performed By: #### 4 [id number] #### [facility] [address] [place] [id number] Garcia Rollins M.D. [id number] Chloride [Moles/Vol] 104 mmol/L Normal 98-108 [facility] Comment on above: Order Comment: [facility] has implemented the eGFR calculation approach that does not have a coefficient for race that conforms to the NKF-ASN Task Force Recommendations. Performed By: #### 4 [id number] #### [facility] [address] [place] [id number] Garcia Rollins M.D. [id number] Creatinine [Mass/Vol] 0.50 mg/dL Low 0.60-1.10 [facility] Comment on above: Order Comment: [facility] has implemented the eGFR calculation approach that does not have a coefficient for race that conforms to the NKF-ASN Task Force Recommendations. Performed By: #### 4 [id number] #### [facility] [address] [place] [id number] Garcia Rollins M.D. [id number] EGFR 100 mL/min/1.73 m2 Normal >=60 [facility] Comment on above: Order Comment: [facility] has implemented the eGFR calculation approach that does not have a coefficient for race that conforms to the NKF-ASN Task Force Recommendations. Result Comment: Felipa mated GFR was calculated using the 2020 CKD-EPI creatinine equation. Performed By: #### 4 [id number] #### [facility] [address] [place] [address] 510[address] Garcia Rollins M.D. [id number] Glucose [Mass/Vol] 89 mg/dL Normal 65-99 [facility] Comment on above: Order Comment: [facility] has implemented the eGFR calculation approach that does not have a coefficient for race that conforms to the NKF-ASN Task Force Recommendations. Performed By: #### 4 [id number] #### [facility] [address] [place] [id number] Garcia Rollins M.D. [id number] HCO3 (Bld) [Moles/Vol] 30 mmol/L Normal 21-32 [facility] Comment on above: Order Comment: [facility] has implemented the eGFR calculation approach that does not have a coefficient for race that conforms to the NKF-ASN Task Force Recommendations. Performed By: #### 4 [id number] #### [facility] [address] [place] [address] [id number] Garcia Rollins M.D. [id number] Potassium [Moles/Vol] 4.0 mmol/L Normal 3.5-5.1 [facility] Comment on above: Order Comment: [facility] has implemented the eGFR calculation approach that does not have a coefficient for race that conforms to the NKF-ASN Task Force Recommendations. Performed By: #### 4 [id number] #### [facility] [address] [place] [address] Garcia Rollins M.D. [id number] Sodium [Moles/Vol] 142 mmol/L Normal 135-145 [facility] Comment on above: Order Comment: [facility] has implemented the eGFR calculation approach that does not have a coefficient for race that conforms to the NKF-ASN Task Force Recommendations. Performed By: #### 4 [id number] #### [facility] [address] [place], [place] [id number] Garcia Rollins M.D. [id number] Urea nitrogen [Mass/Vol] 24 mg/dL Normal 8-25 [facility] Comment on above: Order Comment: [facility] has implemented the eGFR calculation approach that does not have a coefficient for race that conforms to the NKF-ASN Task Force Recommendations. Performed By: #### 4 [id number] #### [facility] [address] [place], [place] [id number] Garcia Rollins M.D. [id number] Urea nitrogen/Creatinine [Mass ratio] 48.0 mg/mg High 10.0-20.0 [facility] Comment on above: Order Comment: [facility] has implemented the eGFR calculation approach that does not have a coefficient for race that conforms to the NKF-ASN Task Force Recommendations. Performed By: #### 4 [id number] #### [facility] [address] [place] [address] Garcia Rollins M.D. [id number] CBCon 08-09-2024 AUTO NRBC 0.0 % Normal [facility] Comment on above: Performed By: #### 4 [id number] #### [facility] [address] [place] [address] 64084 Garcia Rollins M.D. [id number] AUTO NRBC ABS COUNT 0.00 K/mcL Normal 0.00-0.00 [facility] Comment on above: Performed By: #### 4 [id number] #### [facility] [address] [place], [place] [id number] Garcia Rollins M.D. [id number] Erythrocyte distribution width (RBC) [Ratio] 13.0 % Normal 11.6-14.8 [facility] Comment on above: Performed By: #### 4 [id number] #### [facility] [address] [place] [address] Garcia Rollins M.D. [id number] Hematocrit (Bld) [Volume fraction] 40.6 % Normal 36.0-46.0 [facility] Comment on above: Performed By: #### 4 [id number] #### [facility] [address] [place] [address] Garcia Rollins M.D. [id number] Hemoglobin (Bld) [Mass/Vol] 12.5 g/dL Normal 12.0-16.0 [facility] Comment on above: Performed By: #### 4 [id number] #### [facility] [address] [place] [address] Garcia Rollins M.D. [id number] MCH (RBC) [Entitic mass] 26.7 pg Normal 26.0-34.0 [facility] Comment on above: Performed By: #### 4 [id number] #### [facility] [address] [place] [address] Garcia Rollins M.D. [id number] MCV (RBC) [Entitic vol] 86.6 fL Normal 80.0-100.0 [facility] Comment on above: Performed By: #### 4 [id number] #### [facility] [address] [place] [address] Garcia Rollins M.D. [id number] MEAN CORPUSCULAR HEMOGLOBIN CONC 30.8 g/dL Low 31.0-37.0 [facility] Comment on above: Performed By: #### 4 [id number] #### [facility] [address] [place] [address]67[address] Garcia Rollins M.D. [id number] Platelet mean volume (Bld) [Entitic vol] 12.6 fL High 9.4-12.4 [facility] Comment on above: Performed By: #### 4 [id number] #### [facility] [address] [place] [address] Garcia Rollins M.D. [id number] Platelets (Bld) [#/Vol] 147 10*3/uL Low 150-400 [facility] Comment on above: Performed By: #### 4 [id number] #### [facility] [address] [place], [place] [id number] Garcia Rollins M.D. [id number] RBC (Bld) [#/Vol] 4.69 10*6/uL Normal 4.00-5.20 [facility] Comment on above: Performed By: #### 4 [id number] #### [facility] [address] [place] [address]22[address] Garcia Rollins M.D. [id number] WBC (Bld) [#/Vol] 7.64 10*3/uL Normal 4.50-11.00 [facility] Comment on above: Performed By: #### 4 [id number] #### [facility] [address] [place] [address] Garcia Rollins M.D. [id number] XR CHEST PA/APon 08-09-2024 XR CHEST PA/AP EXAMINATION: XR CHEST PA/AP HISTORY: ORDERING SYSTEM PROVIDED HISTORY: eval for pneumothorax, TECHNOLOGIST PROVIDED HISTORY: Illness/Other Reason for exam: eval for pneumothorax Cancer History: NO Surgery, RadiationHistory: NONCANCEROUS NODULE REMOVAL FROM LEFT LUNG Encounter Type: Subsequent/Follow-up Additional signs and symptoms: eval for pneumothorax ORDERING SYSTEM PROVIDED DIAGNOSIS CODES: S22.41XA Traumatic fracture of ribs of right side with pneumothorax S27.0XXA Traumatic fracture of ribs of right side with pneumothorax W19.XXXA Fall, initial encounter S22.41XA Multiple fractures of ribs, right side, initial encounter for closed fracture COMPARISON: Multiple prior comparisons IMPRESSION/FINDINGS: Right-sided rib fixation hardware noted. Unchanged right-sided chest tube. Monitoring leads overlie the patient. Extensive thoracolumbar spinal fusion hardware. There is no definite pneumothorax. Increased airspace disease at the right lung base. Mildly decreased airspace disease at the left lung base. Probable small bilateral pleural effusions. The heart size is within normal limits. Workstation ID: [id number] Dictated by: DAVY WARD on TueAug 10, 2024 7:51:33 AM EDT Transcribed by: DAVY WARD on TueAug 10, 2024 7:51:33 AM EDT Finalized by: DAVY WARD on TueAug 10, 2024 7:51:33 AM EDT Normal [facility] Comment on above: Order Comment: Injur y/Trauma or Illness?:Illness/Other How long have you had these symptoms (acute/chronic)?:Acute Reason for exam?:eval for pneumothorax History of cancer?:NO Surgeries, chemotherapy, or radiation?:NONCANCEROUS NODULE REMOVAL FROM LEFT LUNG RT TKR, Lt shoulder rotator cuff repair Type of Exam?:Subsequent/Follow-up Additional signs and symptoms?:eval for pneumothorax XR CHEST PA/AP EXAMINATION: XR CHEST PA/AP 08/09/2024 10:32 am HISTORY: ORDERING SYSTEM PROVIDED HISTORY: in pacu, chest tube placement, eval pneumothorax, TECHNOLOGIST PROVIDED HISTORY: Illness/Other Reason for exam: in pacu, chest tube placement, eval pneumothorax Cancer History: NO Surgery, RadiationHistory: NONCANCEROUS NODULE 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 TECHNIQUE: Single supine AP chest image was obtained. IMPRESSION: FINDINGS/ 1. Interval placement of right-sided chest tube with the tip near the apex of the right hemithorax. Near complete resolution of previously identified right-sided pneumothorax. Minimal apical visceral separation persists. 2. Interval plate and screw fixation of right-sided ribs with adjacent subcutaneous emphysema and soft tissue swelling noted. Small right pleural effusion may be present. 3. Lung volumes are diminished contributing to splaying of the garrick and cardiomediastinal contours. 4. Heart size is similarly enlarged. Mild central vascular crowding is noted. 5. Prior left-sided pulmonary wedge resection with suture material overlapping the perihilar region. Bibasilar atelectatic changes are asymmetrically greater toward the left. Left basilar pneumonia cannot be excluded. Small left pleural effusion may also be present. 6. Prior bilateral rotator cuff repair with arthritic changes about both shoulder girdles. Prior cervical spine fusion as well as thoracolumbar fusion. Lower thoracic vertebroplasty is evident. [facility]/tde Workstation ID: [id number] Dictated by: JOAQUINA COATES on [facility] Aug 09, 2024 11:30:25 AM EDT Transcribed by: ALEX HOYT on [facility] Aug 09, 2024 11:56:49 AM EDT Finalized by: JOAQUINA COATES on [facility] Aug 09, 2024 7:24:51 PM EDT Normal [facility] Comment on above: Order Comment: Injur y/Trauma or Illness?:Illness/OtherHow long have you had these symptoms (acute/chronic)?:AcuteReason for exam?:in pacu, chest tube placement, eval pneumothoraxHistory of cancer?:NOSurgeries, chemotherapy, or radiation?:NONCANCEROUS NODULE REMOVAL FROM LEFT LUNGRT TKR, Lt shoulder rotator cuff repairType of Exam?:InitialAdditional signs and symptoms?:- BASIC METABOLIC PANELon 10-0 Anion gap [Moles/Vol] 13 mmol/L Normal - [facility] Comment on above: Order Comment: [facility] has implemented the eGFR calculation approach that does not have a coefficient for race that conforms to the NKF-ASN Task Force Recommendations. Performed By: #### 4 [id number] #### [facility] [address] [place] [address] [id number] Garcia Rollins M.D. [id number] Calcium [Mass/Vol] 8.9 mg/dL Normal 8.4-10.2 [facility] Comment on above: Order Comment: [facility] has implemented the eGFR calculation approach that does not have a coefficient for race that conforms to the NKF-ASN Task Force Recommendations. Performed By: #### 4 [id number] #### [facility] [address] [place] [id number] Garcia Rollins M.D. [id number] Chloride [Moles/Vol] 102 mmol/L Normal 98-108 [facility] Comment on above: Order Comment: [facility] has implemented the eGFR calculation approach that does not have a coefficient for race that conforms to the NKF-ASN Task Force Recommendations. Performed By: #### 4 [id number] #### [facility] [address] [place] [address] 92457 aGrcia Rollins M.D. [id number] Creatinine [Mass/Vol] 0.58 mg/dL Low 0.60-1.10 [facility] Comment on above: Order Comment: [facility] has implemented the eGFR calculation approach that does not have a coefficient for race that conforms to the NKF-ASN Task Force Recommendations. Performed By: #### 4 [id number] #### [facility] [address] [place], [place] [id number] Garcia Rollins M.D. [id number] EGFR 97 mL/min/1.73 m2 Normal >=60 [facility] Comment on above: Order Comment: [facility] Laboratory Services has implemented the eGFR calculation approach that does not have a coefficient for race that conforms to the NKF-ASN Task Force Recommendations. Result Comment: Felipa mated GFR was calculated using the 2020 CKD-EPI creatinine equation. Performed By: #### 4 [id number] #### [facility] [address] [place] [address] 91513 Garcia Rollins M.D. [id number] Glucose [Mass/Vol] 122 mg/dL High 65-99 [facility] Comment on above: Order Comment: [facility] Laboratory Services has implemented the eGFR calculation approach that does not have a coefficient for race that conforms to the NKF-ASN Task Force Recommendations. Performed By: #### 4 [id number] #### [facility] [address] [place] [address] 76013 Garcia Rollins M.D. [id number] HCO3 (Bld) [Moles/Vol] 30 mmol/L Normal 21-32 [facility] Comment on above: Order Comment: [facility] Laboratory Services has implemented the eGFR calculation approach that does not have a coefficient for race that conforms to the NKF-ASN Task Force Recommendations. Performed By: #### 4 [id number] #### [facility] [address] [place] [address] 74686 Garcia Rollins M.D. [id number] Potassium [Moles/Vol] 3.4 mmol/L Low 3.5-5.1 [facility] Comment on above: Order Comment: [facility] Laboratory Services has implemented the eGFR calculation approach that does not have a coefficient for race that conforms to the NKF-ASN Task Force Recommendations. Performed By: #### 4 [id number] #### [facility] [address] [place] [address] 16442 Garcia Rollins M.D. [id number] Sodium [Moles/Vol] 142 mmol/L Normal 135-145 [facility] Comment on above: Order Comment: [facility] Laboratory Services has implemented the eGFR calculation approach that does not have a coefficient for race that conforms to the NKF-ASN Task Force Recommendations. Performed By: #### 4 [id number] #### [facility] [address] [place] [address] 501[address] Garcia Rollins M.D. [id number] Urea nitrogen [Mass/Vol] 20 mg/dL Normal 8-25 [facility] Comment on above: Order Comment: [facility] Laboratory Services has implemented the eGFR calculation approach that does not have a coefficient for race that conforms to the NKF-ASN Task Force Recommendations. Performed By: #### 4 [id number] #### [facility] [address] [place], [place] [address] Garcia Rollins M.D. [id number] Urea nitrogen/Creatinine [Mass ratio] 34.5 mg/mg High 10.0-20.0 [facility] Comment on above: Order Comment: [facility] Laboratory Services has implemented the eGFR calculation approach that does not have a coefficient for race that conforms to the NKF-ASN Task Force Recommendations. Performed By: #### 4 [id number] #### [facility] [address] [place] [address] Garcia Rollins M.D. [id number] CBCon 08-08-2024 AUTO NRBC 0.0 % Normal [facility] Comment on above: Performed By: #### 4 [id number] ####[facility] [address] [place], [place] [address] Garcia Rollins M.D. [id number] AUTO NRBC ABS COUNT 0.00 K/mcL Normal 0.00-0.00 [facility] Comment on above: Performed By: #### 4 [id number] ####[facility] [address] [place], [place] [address] Garcia Rollins M.D. [id number] Erythrocyte distribution width (RBC) [Ratio] 13.2 % Normal 11.6-14.8 [facility] Comment on above: Performed By: #### 4 [id number] ####[facility] [address] [place], [place] [address] Garcia Rollins M.D. [id number] Hematocrit (Bld) [Volume fraction] 40.1 % Normal 36.0-46.0 [facility] Comment on above: Performed By: #### 4 [id number] ####[facility] [address] [place], [place] [address] Garcia Rollins M.D. [id number] Hemoglobin (Bld) [Mass/Vol] 12.6 g/dL Normal 12.0-16.0 [facility] Comment on above: Performed By: #### 4 [id number] ####[facility] [address] [place] [address] Garcia Rollins M.D. [id number] MCH (RBC) [Entitic mass] 26.7 pg Normal 26.0-34.0 [facility] Comment on above: Performed By: #### 4 [id number] ####[facility] [address] [place] [address] Garcia Rollins M.D. [id number] MCV (RBC) [Entitic vol] 85.0 fL Normal 80.0-100.0 [facility] Comment on above: Performed By: #### 4 [id number] ####[facility] [address] [place], [place] [address] Garcia Rollins M.D. [id number] MEAN CORPUSCULAR HEMOGLOBIN CONC 31.4 g/dL Normal 31.0-37.0 [facility] Comment on above: Performed By: #### 4 [id number] ####[facility] [address] [place], [place] [address] Garcia Rollins M.D. [id number] Platelet mean volume (Bld) [Entitic vol] 12.4 fL Normal 9.4-12.4 [facility] Comment on above: Performed By: #### 4 [id number] ####[facility] [address] [place], [place] [address] Garcia Rollins M.D. [id number] Platelets (Bld) [#/Vol] 146 10*3/uL Low 150-400 [facility] Comment on above: Performed By: #### 4 [id number] ####[facility] [address] [place] [address] 34737 Garcia Rollins M.D. [id number] RBC (Bld) [#/Vol] 4.72 10*6/uL Normal 4.00-5.20 [facility] Comment on above: Performed By: #### 4 [id number] ####[facility] [address] [place] [address] 58856 Garcia Rollins M.D. [id number] WBC (Bld) [#/Vol] 7.84 10*3/uL Normal 4.50-11.00 [facility] Comment on above: Performed By: #### 4 [id number] ####[facility] [address] [place] [address] 48090 Garcia Rollins M.D. [id number] POTASSIUM LEVELon 08-08-2024 Potassium [Moles/Vol] 3.6 mmol/L Normal 3.5-5.1 [facility] Comment on above: Performed By: #### 4 [id number] ####[facility] [address] [place] [address] 82010 Garcia Rollins M.D. [id number] XR CHEST PA/APon 08-08-2024 XR CHEST PA/AP EXAMINATION: PORTABLE AP SEMIUPRIGHT CHEST: 08/08/2024 AT 0502 HOURS. HISTORY: Dx: S22.41XA (Traumatic fracture of ribs of right side with pneumothorax) PULM OFFICE POLICIES/MILA SIGNED 02/26/[address] Freitas 04/2024 no shows evaluate PTX COMPARISON FILMS: Portable semiupright chest: 08/07/2024. IMPRESSION: FINDINGS/ 1. Patient is status post fusion of the lower cervical as well as lower thoracic, upper lumbar spine. The visualized osseous structures otherwise are intact. The right-sided rib fractures are better seen on the CT chest from 08/06/2024. 2. The trachea is midline. The aorta maintains normal contour. The heart size remains normal. 3. There is some atelectasis at the lung bases with some blunting of the costophrenic angles to suggest small effusion. The remaining lungs are unremarkable. 4. There is a pneumothorax on the right, which measures approximately 1.7 cm. Previously this pneumothorax measured approximately 1.8 cm. [employer] Workstation ID: [id number] Dictated by: MILES CARNEY on TueAug 08, 2024 6:10:27 AM EDT Transcribed by: SHALOM ALDRIDGE on TueAug 08, 2024 6:18:55 AM EDT Finalized by: MILES CARNEY on TueAug 08, 2024 6:48:10 AM EDT Normal [facility] Comment on above: Order Comment: Injur y/Trauma or Illness?:Illness/Other How long have you had these symptoms (acute/chronic)?:Unknown Reason for exam?:evaluate PTX History of cancer?:NO Surgeries, chemotherapy, or radiation?:NONCANCEROUS NODULE REMOVAL FROM LEFT LUNG RT TKR, Lt shoulder rotator cuff repair Type of Exam?:Subsequent/Follow-up Additional signs and symptoms?:/ BASIC METABOLIC PANELon 10-0 Anion gap [Moles/Vol] 13 mmol/L Normal 10-20 [facility] Comment on above: Order Comment: [facility] Laboratory Services has implemented the eGFR calculation approach that does not have a coefficient for race that conforms to the NKF-ASN Task Force Recommendations. Performed By: #### 4 [id number] #### [facility] [address] [place] [address] Garcia Rollins M.D. [id number] Calcium [Mass/Vol] 8.9 mg/dL Normal 8.4-10.2 [facility] Comment on above: Order Comment: [facility] Laboratory Services has implemented the eGFR calculation approach that does not have a coefficient for race that conforms to the NKF-ASN Task Force Recommendations. Performed By: #### 4 [id number] #### [facility] [address] [place] [address] 65711 Garcia Rollins M.D. [id number] Chloride [Moles/Vol] 103 mmol/L Normal 98-108 [facility] Comment on above: Order Comment: [facility] Laboratory Services has implemented the eGFR calculation approach that does not have a coefficient for race that conforms to the NKF-ASN Task Force Recommendations. Performed By: #### 4 [id number] #### [facility] [address] [place], [place] [address] Garcia Rollins M.D. [id number] Creatinine [Mass/Vol] 0.55 mg/dL Low 0.60-1.10 [facility] Comment on above: Order Comment: [facility] Laboratory [facility] has implemented the eGFR calculation approach that does not have a coefficient for race that conforms to the NKF-ASN Task Force Recommendations. Performed By: #### 4 [id number] #### [facility] [address] [place], [place] [address] Garcia Rollins M.D. [id number] EGFR 98 mL/min/1.73 m2 Normal >=60 [facility] Comment on above: Order Comment: [facility] Laboratory [facility] has implemented the eGFR calculation approach that does not have a coefficient for race that conforms to the NKF-ASN Task Force Recommendations. Result Comment: Felipa mated GFR was calculated using the 2020 CKD-EPI creatinine equation. Performed By: #### 4 [id number] #### [facility] [address] [place] [address] 17540 Garcia Rollins M.D. [id number] Glucose [Mass/Vol] 125 mg/dL High 65-99 [facility] Comment on above: Order Comment: [facility] Laboratory [facility] has implemented the eGFR calculation approach that does not have a coefficient for race that conforms to the NKF-ASN Task Force Recommendations. Performed By: #### 4 [id number] #### [facility] [address] [place] [address] 80799 Garcia Rollins M.D. [id number] HCO3 (Bld) [Moles/Vol] 30 mmol/L Normal 21-32 [facility] Comment on above: Order Comment: [facility] Laboratory [facility] has implemented the eGFR calculation approach that does not have a coefficient for race that conforms to the NKF-ASN Task Force Recommendations. Performed By: #### 4 [id number] #### [facility] [address] [place] [address] 12946 Garcia Rollins M.D. [id number] Potassium [Moles/Vol] 3.8 mmol/L Normal 3.5-5.1 [facility] Comment on above: Order Comment: [facility] Laboratory Services has implemented the eGFR calculation approach that does not have a coefficient for race that conforms to the NKF-ASN Task Force Recommendations. Performed By: #### 4 [id number] #### [facility] [address] [place] [address] 95816 Garcia Rollins M.D. [id number] Sodium [Moles/Vol] 142 mmol/L Normal 135-145 [facility] Comment on above: Order Comment: [facility] Laboratory [facility] has implemented the eGFR calculation approach that does not have a coefficient for race that conforms to the NKF-ASN Task Force Recommendations. Performed By: #### 4 [id number] #### [facility] [address] [place] [address] 63343 Garcia Rollins M.D. [id number] Urea nitrogen [Mass/Vol] 14 mg/dL Normal 8-25 [facility] Comment on above: Order Comment: [facility] Laboratory [facility] has implemented the eGFR calculation approach that does not have a coefficient for race that conforms to the NKF-ASN Task Force Recommendations. Performed By: #### 4 [id number] #### [facility] [address] [place] [address] 51377 Garcia Rollins M.D. [id number] Urea nitrogen/Creatinine [Mass ratio] 25.5 mg/mg High 10.0-20.0 [facility] Comment on above: Order Comment: [facility] Laboratory [facility] has implemented the eGFR calculation approach that does not have a coefficient for race that conforms to the NKF-ASN Task Force Recommendations. Performed By: #### 4 [id number] #### [facility] [address] [place], [place] [address] Garcia Rollins M.D. [id number] CBCon 08-07-2024 AUTO NRBC 0.0 % Normal [facility] Comment on above: Performed By: #### 4 [id number] #### [facility] [address] [place], [place] [address] Garcia Rollins M.D. [id number] AUTO NRBC ABS COUNT 0.00 K/mcL Normal 0.00-0.00 [facility] Comment on above: Performed By: #### 4 [id number] #### [facility] [address] [place] [address] Garcia Rollins M.D. [id number] Erythrocyte distribution width (RBC) [Ratio] 13.1 % Normal 11.6-14.8 [facility] Comment on above: Performed By: #### 4 [id number] #### [facility] [address] [place], [place] [address] Garcia Rollins M.D. [id number] Hematocrit (Bld) [Volume fraction] 43.2 % Normal 36.0-46.0 [facility] Comment on above: Performed By: #### 4 [id number] #### [facility] [address] [place], [place] [address] Garcia Rollins M.D. [id number] Hemoglobin (Bld) [Mass/Vol] 13.9 g/dL Normal 12.0-16.0 [facility] Comment on above: Performed By: #### 4 [id number] #### [facility] [address] [place], [place] [address] Garcia Rollins M.D. [id number] MCH (RBC) [Entitic mass] 27.5 pg Normal 26.0-34.0 [facility] Comment on above: Performed By: #### 4 [id number] #### [facility] [address] [place] [address] Garcia Rollins M.D. [id number] MCV (RBC) [Entitic vol] 85.4 fL Normal 80.0-100.0 [facility] Comment on above: Performed By: #### 4 [id number] #### [facility] [address] [place] [address] Garcia Rollins M.D. [id number] MEAN CORPUSCULAR HEMOGLOBIN CONC 32.2 g/dL Normal 31.0-37.0 [facility] Comment on above: Performed By: #### 4 [id number] #### [facility] [address] [place] [address] Garcia Rollins M.D. [id number] Platelet mean volume (Bld) [Entitic vol] 12.5 fL High 9.4-12.4 [facility] Comment on above: Performed By: #### 4 [id number] #### [facility] [address] [place], [place] [address] Garcia Rollins M.D. [id number] Platelets (Bld) [#/Vol] 157 10*3/uL Normal 150-400 [facility] Comment on above: Performed By: #### 4 [id number] #### [facility] [address] [place], [place] [address] Garcia Rollins M.D. [id number] RBC (Bld) [#/Vol] 5.06 10*6/uL Normal 4.00-5.20 [facility] Comment on above: Performed By: #### 4 [id number] #### [facility] [address] [place], [place] [address] Garcia Rollins M.D. [id number] WBC (Bld) [#/Vol] 8.50 10*3/uL Normal 4.50-11.00 [facility] Comment on above: Performed By: #### 4 [id number] #### [facility] [address] [address] Garcia Rollins M.D. [id number] CONSULTon 08-07-2024 CONSULT -- Attestation signed by Severo Metcalf MD at 08/07/2024 12:09 PM Pain Management Attestation Consult received, chart reviewed. Agree with plan as outlined by [employer]. Agree with trying to wean Clonazepam and decreasing polypharmacy with history of falls. Shelley Metcalf MD Pain Management Date: 08/07/2024 Patient name: Matthew Perez Date Of : 1955 Admit Date: 08/06/2024 Acute pain due to trauma Overview Reason For Hospitalization: ICD-10 G89.11 Matthew Perez presented 08/06/2024 to [place] ED 08/05/2024 for fall from standing, found to have fractured right ribs 4-8, small pneumothorax. Transferred to [facility] 08/06/2024 for trauma evaluation. Pain Management consulted to assist with pain control. Trauma following- Worsening pneumothorax. Conservative management planned for now. Assessment: Matthew is laying in bed. She is alert, oriented, in NAD. Visitor and RN present in room. She reports 4/10 pain to her right ribcage that she describes as sharp pain. She states pain worsens with movement. She feels that the Oxycodone is helpful in taking the edge off the pain. She has been utilizing Oxycodone 5-10 mg during this admission. OARRS reviewed. Chronic regimen: Clonazepam 1 mg BID and Percocet 10-325 mg. She reports taking 2 Percocet every 8 hours. She also has a morphine pump per Dr. Farr of [facility]. Last fill 06/13/24. Patient reports multiple falls at home recently as well as episodes of sleep walking. Per daughter, frequency of falls has increased over the past few months. Discussed talking with prescriber (PCP) about weaning her off clonazepam as combination of clonazepam and narcotics could be contributing to her falls and is a dangerous combination. States she does not notice a difference in anxiety with clonazepam. Conservative treatment for rib fractures per trauma, monitoring right pneumo. Plan: Continue Robaxin 500 mg PO TID PRN Continue clonazepam 0.5 mg PO BID PRN, chronic regimen 1 mg BID, consider weaning further Continue Oxycodone 10 mg PO Q4H PRN, chronic regimen Percocet 20 mg Q8H Continue Lidocaine patch to right rib area Q12H Continue Tylenol 650 mg PO Q4H PRN Discontinued/Completed Therapies N/A Acute Findings/Imaging/Proce dures XR Chest 1 View- 08/06/24 IMPRESSION: 1. Persistent small right pneumothorax which appears slightly increased in size compared to the prior examination. 2. Suspected small pleural effusion with bibasilar opacities that could represent atelectasis, aspiration changes, and/or pneumonia. Disposition/Ongoing Plan: TBD Substance Use History: Tobacco Use: Did not review at this time EtOH Use: Did not review at this time THC/CBD Use: Did not review at this time Illicit Substance Use: Did not review at this time Obtain/Use Medications not prescribed to you: Did not review at this time OARRS Reviewed: Filled Written ID Drug QTY Days Prescriber RX # Dispenser Refill Daily Dose* Pymt Type PEDIATRIC NEUROLOGIST 08/02/2024 08/02/2024 1 Oxycodone-Acetaminophe n 10-325 180.00 30 Br Hin [id number] Kro (9998) 0 90.00 MME [place] 07/18/2024 03/28/2024 2 Clonazepam 1 Mg Tablet 60.00 30 Br Hin [id number] Wal (6129) 1 4.00 LME [place] 06/29/2024 06/25/2024 1 Oxycodone-Acetaminophe n 10-325 180.00 30 Br Hin [id number] Kro (2736) 0 90.00 [place] 06/13/2024 06/13/2024 2 Duramorph 5 Mg/10 Ml Ampul 10.00 1 Ay Bas [id number] Zavala (1073) 0 15.00 MME Private [place] 05/30/2024 05/30/2024 1 Oxycodone-Acetaminophe n 10-325 180.00 30 Ra Goy [id number] Kro (2736) 0 90.00 [place]ME [place] 04/26/2024 04/24/2024 2 Oxycodone-Acetaminophe n 10-325 180.00 30 Br Hin [id number] Wal (1409) 0 90.00 [place]ME [place] 03/28/2024 03/28/2024 2 Clonazepam 1 Mg Tablet 60.00 30 Br Hin [id number] Wal (1409) 0 4.00 LME [place] 03/27/2024 03/26/2024 2 Oxycodone-Acetaminophe n 10-325 180.00 30 Br Hin [id number] Wal (1409) 0 90.00 MME [place] 02/28/2024 02/27/2024 2 Oxycodone-Acetaminophe n 10-325 180.00 30 Br Hin [id number] Wal (1409) 0 90.00 [place]ME [place] 01/30/2024 01/24/2024 2 Oxycodone-Acetaminophe n 10-325 180.00 30 Br Hin [id number] Wal (1409) 0 90.00 MME [place] Chief Complaint/Reason for Visit: 1. Traumatic fracture of ribs of right side with pneumothorax 2. Fall, initial encounter 3. Multiple fractures of ribs, right side, initial encounter for closed fracture History of Present Illness: Matthew Perez is a 69 y.o. y/o female presenting 08/06/2024 to [place] ED 08/05/2024 for fall from standing, found to have fractured right ribs 4-8, small pneumothorax. Transferred to [facility] 08/06/2024 for trauma evaluation. During rounding visit 08/07/2024 Matthew is laying in bed. She is alert, oriented, in NAD. Visitor and RN present in room. (more content not included)... [facility] XR CHEST PA/APon 08-07-2024 XR CHEST PA/AP EXAMINATION: XR CHEST PA/AP 08/07/2024 2:19 am HISTORY: ORDERING SYSTEM PROVIDED HISTORY: eval ptx, TECHNOLOGIST PROVIDED HISTORY: Illness/Other Reason for exam: eval ptx Cancer History: NO Surgery, RadiationHistory: NONCANCEROUS NODULE REMOVAL FROM LEFT LUNG Encounter Type: Subsequent/Follow-up Additional signs and symptoms: / ORDERING SYSTEM PROVIDED DIAGNOSIS CODES: S22.41XA Traumatic fracture of ribs of right side with pneumothorax S27.0XXA Traumatic fracture of ribs of right side with pneumothorax W19.XXXA Fall, initial encounter COMPARISON: Chest radiograph dated 08/06/2024. FINDINGS: One view of the chest was obtained. There are postsurgical changes of the lower cervical spine, the upper thoracic spine, and of the thoracolumbar spine. Postsurgical changes are noted in the left hilar region. The cardiac silhouette is stable in size. There is a small right pneumothorax which appears slightly increased compared to prior examination. There is no significant left pneumothorax. There are possible small pleural effusions with bibasilar opacities. Fractures of multiple right-sided ribs are noted. An anchor screw is seen within the left humeral head. IMPRESSION: 1. Persistent small right pneumothorax which appears slightly increased in size compared to the prior examination. 2. Suspected small pleural effusion with bibasilar opacities that could represent atelectasis, aspiration changes, and/or pneumonia. [facility] Workstation ID: [id number] Dictated by: JEFF MACE on TueAug 07, 2024 4:33:19 AM EDT Transcribed by: SHALOM ALDRIDGE on TueAug 07, 2024 4:35:37 AM EDT Finalized by: JEFF MACE on TueAug 07, 2024 4:35:37 AM EDT [facility] Comment on above: Order Comment: Injur y/Trauma or Illness?:Illness/OtherHow long have you had these symptoms (acute/chronic)?:UnknownReason for exam?:eval ptxHistory of cancer?:NOSurgeries, chemotherapy, or radiation?:NONCANCEROUS NODULE REMOVAL FROM LEFT LUNGRT TKR, Lt shoulder rotator cuff repairType of Exam?:Subsequent/Follow-upAdditional signs and symptoms?:/ ALCOHOL, MEDICALon ALCOHOL MEDICAL < Normal <10.0 [facility] Comment on above: Result Comment: Alco hol cutoff: <10.00 mg/dL = None Detected Performed By: #### [id number] ####[facility] [address] [place], [place] [id number] Garcia Rollins M.D. [id number] APTTon 08-06-2024 aPTT Coag (Bld) [Time] 25 s Normal 23-34 [facility] Comment on above: Order Comment: Injur y/Trauma or Illness?:Illness/Other How long have you had these symptoms (acute/chronic)?:Acute Reason for exam?:eval for pneumothorax History of cancer?:NO Surgeries, chemotherapy, or radiation?:NONCANCEROUS NODULE REMOVAL FROM LEFT LUNG RT TKR, Lt shoulder rotator cuff repair Type of Exam?:Subsequent/Follow-up Additional signs and symptoms?:eval for pneumothorax Performed By: #### [id number] ####[facility] [address] [place], [place] [id number] Garcia Rollins M.D. [id number] CBCon 08-06-2024 AUTO NRBC 0.0 % Normal [facility] Comment on above: Performed By: #### 4 [id number] ####[facility] [address] [place], [place] [id number] Garcia Rollins M.D. [id number] AUTO NRBC ABS COUNT 0.00 K/mcL Normal 0.00-0.00 [facility] Comment on above: Performed By: #### 4 [id number] ####[facility] [address] [place], [place] [id number] Garcia Rollins M.D. [id number] Erythrocyte distribution width (RBC) [Ratio] 13.1 % Normal 11.6-14.8 [facility] Comment on above: Performed By: #### 4 [id number] ####[facility] [address] [place], [place] [id number] Garcia Rollins M.D. [id number] Hematocrit (Bld) [Volume fraction] 42.4 % Normal 36.0-46.0 [facility] Comment on above: Performed By: #### 4 [id number] ####[facility] [address] [place], [place] [address] Garcia Rollins M.D. [id number] Hemoglobin (Bld) [Mass/Vol] 13.7 g/dL Normal 12.0-16.0 [facility] Comment on above: Performed By: #### 4 [id number] ####[facility] [address] [place], [place] [address] Garcia Rollins M.D. [id number] MCH (RBC) [Entitic mass] 27.6 pg Normal 26.0-34.0 [facility] Comment on above: Performed By: #### 4 [id number] ####[facility] [address] [place], [place] [address] Garcia Rollins M.D. [id number] MCV (RBC) [Entitic vol] 85.3 fL Normal 80.0-100.0 [facility] Comment on above: Performed By: #### 4 [id number] ####[facility] [address] [place], [place] [address] Garcia Rollins M.D. [id number] MEAN CORPUSCULAR HEMOGLOBIN CONC 32.3 g/dL Normal 31.0-37.0 [facility] Comment on above: Performed By: #### 4 [id number] ####[facility] [address] [place], [place] [address] Garcia Rollins M.D. [id number] Platelet mean volume (Bld) [Entitic vol] 11.9 fL Normal 9.4-12.4 [facility] Comment on above: Performed By: #### 4 [id number] ####[facility] [address] [place] [address] Garcia Rollins M.D. [id number] Platelets (Bld) [#/Vol] 143 10*3/uL Low 150-400 [facility] Comment on above: Performed By: #### 4 [id number] ####[facility] [address] [place] [address] Garcia Rollins M.D. [id number] RBC (Bld) [#/Vol] 4.97 10*6/uL Normal 4.00-5.20 [facility] Comment on above: Performed By: #### 4 [id number] ####[facility] [address] [place], [place] [address] Garcia Rollins M.D. [id number] WBC (Bld) [#/Vol] 8.57 10*3/uL Normal 4.50-11.00 [facility] Comment on above: Performed By: #### 4 [id number] ####[facility] [address] [place], [place] [address] Garcia Rollins M.D. [id number] COMPREHENSIVE METABOLIC PANE [facility] 08-06-2024 Albumin [Mass/Vol] 3.9 g/dL Normal 3.2-5.2 [facility] Comment on above: Order Comment: Injur y/Trauma or Illness?:Illness/Other How long have you had these symptoms (acute/chronic)?:Unknown Reason for exam?:eval PTX History of cancer?:NO Surgeries, chemotherapy, or radiation?:NONCANCEROUS NODULE REMOVAL FROM LEFT LUNG RT TKR, Lt shoulder rotator cuff repair Type of Exam?:Unknown Additional signs and symptoms?:eval PTX Performed By: #### 4 [id number] ####[facility] [address] [place] [address] Garcia Rollins M.D. [id number] ALP [Catalytic activity/Vol] 96 U/L Normal 40-150 [facility] Comment on above: Order Comment: Injur y/Trauma or Illness?:Illness/Other How long have you had these symptoms (acute/chronic)?:Unknown Reason for exam?:eval PTX History of cancer?:NO Surgeries, chemotherapy, or radiation?:NONCANCEROUS NODULE REMOVAL FROM LEFT LUNG RT TKR, Lt shoulder rotator cuff repair Type of Exam?:Unknown Additional signs and symptoms?:eval PTX Performed By: #### 4 6169 ####[facility] [address] [place], [place] [address] Garcia Rollins M.D. [id number] ALT [Catalytic activity/Vol] 10 U/L Normal 0-35 U/L [facility] Comment on above: Order Comment: Injur y/Trauma or Illness?:Illness/Other How long have you had these symptoms (acute/chronic)?:Unknown Reason for exam?:eval PTX History of cancer?:NO Surgeries, chemotherapy, or radiation?:NONCANCEROUS NODULE REMOVAL FROM LEFT LUNG RT TKR, Lt shoulder rotator cuff repair Type of Exam?:Unknown Additional signs and symptoms?:eval PTX Performed By: #### 4 [id number] ####[facility] [address] [place], [place] [address] Garcia Rollins M.D. [id number] Anion gap [Moles/Vol] 13 mmol/L Normal 10-20 [facility] Comment on above: Order Comment: Injur y/Trauma or Illness?:Illness/Other How long have you had these symptoms (acute/chronic)?:Unknown Reason for exam?:eval PTX History of cancer?:NO Surgeries, chemotherapy, or radiation?:NONCANCEROUS NODULE REMOVAL FROM LEFT LUNG RT TKR, Lt shoulder rotator cuff repair Type of Exam?:Unknown Additional signs and symptoms?:eval PTX Performed By: #### 4 [id number] ####[facility] [address] [place], [place] [address] Garcia Rollins M.D. [id number] AST [Catalytic activity/Vol] 22 U/L Normal 0-35 U/L [facility] Comment on above: Order Comment: Injur y/Trauma or Illness?:Illness/Other How long have you had these symptoms (acute/chronic)?:Unknown Reason for exam?:eval PTX History of cancer?:NO Surgeries, chemotherapy, or radiation?:NONCANCEROUS NODULE REMOVAL FROM LEFT LUNG RT TKR, Lt shoulder rotator cuff repair Type of Exam?:Unknown Additional signs and symptoms?:eval PTX Performed By: #### 4 [id number] ####[facility] [address] [place], [place] [address] Garcia Rollins M.D. [id number] Bilirubin [Mass/Vol] 1.1 mg/dL Normal 0.0-1.3 [facility] Comment on above: Order Comment: Injur y/Trauma or Illness?:Illness/Other How long have you had these symptoms (acute/chronic)?:Unknown Reason for exam?:eval PTX History of cancer?:NO Surgeries, chemotherapy, or radiation?:NONCANCEROUS NODULE REMOVAL FROM LEFT LUNG RT TKR, Lt shoulder rotator cuff repair Type of Exam?:Unknown Additional signs and symptoms?:eval PTX Performed By: #### 4 [id number] ####[facility] [address] [place] [address] Garcia Rollins M.D. [id number] Calcium [Mass/Vol] 8.7 mg/dL Normal 8.4-10.2 [facility] Comment on above: Order Comment: Injur y/Trauma or Illness?:Illness/Other How long have you had these symptoms (acute/chronic)?:Unknown Reason for exam?:eval PTX History of cancer?:NO Surgeries, chemotherapy, or radiation?:NONCANCEROUS NODULE REMOVAL FROM LEFT LUNG RT TKR, Lt shoulder rotator cuff repair Type of Exam?:Unknown Additional signs and symptoms?:eval PTX Performed By: #### 4 [id number] ####[facility] [address] [place] [address] Garcia Rollins M.D. [id number] Chloride [Moles/Vol] 103 mmol/L Normal 98-108 [facility] Comment on above: Order Comment: Injur y/Trauma or Illness?:Illness/Other How long have you had these symptoms (acute/chronic)?:Unknown Reason for exam?:eval PTX History of cancer?:NO Surgeries, chemotherapy, or radiation?:NONCANCEROUS NODULE REMOVAL FROM LEFT LUNG RT TKR, Lt shoulder rotator cuff repair Type of Exam?:Unknown Additional signs and symptoms?:eval PTX Performed By: #### 4 6137 ####[facility] [address] [place], [place] [address] Garcia Rollins M.D. [id number] Creatinine [Mass/Vol] 0.56 mg/dL Low 0.60-1.10 [facility] Comment on above: Order Comment: Injur y/Trauma or Illness?:Illness/Other How long have you had these symptoms (acute/chronic)?:Unknown Reason for exam?:eval PTX History of cancer?:NO Surgeries, chemotherapy, or radiation?:NONCANCEROUS NODULE REMOVAL FROM LEFT LUNG RT TKR, Lt shoulder rotator cuff repair Type of Exam?:Unknown Additional signs and symptoms?:eval PTX Performed By: #### 4 [id number] ####[facility] [address] [place], [place] [address] Garcia Rollins M.D. [id number] EGFR 98 mL/min/1.73 m2 Normal >=60 [facility] Comment on above: Order Comment: Injur y/Trauma or Illness?:Illness/Other How long have you had these symptoms (acute/chronic)?:Unknown Reason for exam?:eval PTX History of cancer?:NO Surgeries, chemotherapy, or radiation?:NONCANCEROUS NODULE REMOVAL FROM LEFT LUNG RT TKR, Lt shoulder rotator cuff repair Type of Exam?:Unknown Additional signs and symptoms?:eval PTX Result Comment: Felipa mated GFR was calculated using the 2020 CKD-EPI creatinine equation. Performed By: #### 4 [id number] ####[facility] [address] [place] [address] Garcia Rollins M.D. [id number] Glucose [Mass/Vol] 115 mg/dL High 65-99 [facility] Comment on above: Order Comment: Injur y/Trauma or Illness?:Illness/Other How long have you had these symptoms (acute/chronic)?:Unknown Reason for exam?:eval PTX History of cancer?:NO Surgeries, chemotherapy, or radiation?:NONCANCEROUS NODULE REMOVAL FROM LEFT LUNG RT TKR, Lt shoulder rotator cuff repair Type of Exam?:Unknown Additional signs and symptoms?:eval PTX Performed By: #### 4 6113 ####[facility] [address] [place], [place] [address] Garcia Rollins M.D. [id number] HCO3 (Bld) [Moles/Vol] 30 mmol/L Normal 21-32 [facility] Comment on above: Order Comment: Injur y/Trauma or Illness?:Illness/Other How long have you had these symptoms (acute/chronic)?:Unknown Reason for exam?:eval PTX History of cancer?:NO Surgeries, chemotherapy, or radiation?:NONCANCEROUS NODULE REMOVAL FROM LEFT LUNG RT TKR, Lt shoulder rotator cuff repair Type of Exam?:Unknown Additional signs and symptoms?:eval PTX Performed By: #### 4 [id number] ####[facility] [address] [place], [place] [address] Garcia Rollins M.D. [id number] Potassium [Moles/Vol] 3.7 mmol/L Normal 3.5-5.1 [facility] Comment on above: Order Comment: Injur y/Trauma or Illness?:Illness/Other How long have you had these symptoms (acute/chronic)?:Unknown Reason for exam?:eval PTX History of cancer?:NO Surgeries, chemotherapy, or radiation?:NONCANCEROUS NODULE REMOVAL FROM LEFT LUNG RT TKR, Lt shoulder rotator cuff repair Type of Exam?:Unknown Additional signs and symptoms?:eval PTX Performed By: #### 4 [id number] ####[facility] [address] [place], [place] [address] Garcia Rollins M.D. [id number] Protein [Mass/Vol] 7.1 g/dL Normal 6.0-8.0 [facility] Comment on above: Order Comment: Injur y/Trauma or Illness?:Illness/Other How long have you had these symptoms (acute/chronic)?:Unknown Reason for exam?:eval PTX History of cancer?:NO Surgeries, chemotherapy, or radiation?:NONCANCEROUS NODULE REMOVAL FROM LEFT LUNG RT TKR, Lt shoulder rotator cuff repair Type of Exam?:Unknown Additional signs and symptoms?:eval PTX Performed By: #### 4 [id number] ####[facility] [address] [place] [address] Garcia Rollins M.D. [id number] Sodium [Moles/Vol] 142 mmol/L Normal 135-145 [facility] Comment on above: Order Comment: Injur y/Trauma or Illness?:Illness/Other How long have you had these symptoms (acute/chronic)?:Unknown Reason for exam?:eval PTX History of cancer?:NO Surgeries, chemotherapy, or radiation?:NONCANCEROUS NODULE REMOVAL FROM LEFT LUNG RT TKR, Lt shoulder rotator cuff repair Type of Exam?:Unknown Additional signs and symptoms?:eval PTX Performed By: #### 4 [id number] ####[facility] [address] [place] [address] Garcia Rollins M.D. [id number] Urea nitrogen [Mass/Vol] 8 mg/dL Normal 8-25 [facility] Comment on above: Order Comment: Injur y/Trauma or Illness?:Illness/Other How long have you had these symptoms (acute/chronic)?:Unknown Reason for exam?:eval PTX History of cancer?:NO Surgeries, chemotherapy, or radiation?:NONCANCEROUS NODULE REMOVAL FROM LEFT LUNG RT TKR, Lt shoulder rotator cuff repair Type of Exam?:Unknown Additional signs and symptoms?:eval PTX Performed By: #### 4 [id number] ####[facility] [address] [place] [address] Garcia Rollins M.D. [id number] Urea nitrogen/Creatinine [Mass ratio] 14.3 mg/mg Normal 10.0-20.0 [facility] Comment on above: Order Comment: Injur y/Trauma or Illness?:Illness/Other How long have you had these symptoms (acute/chronic)?:Unknown Reason for exam?:eval PTX History of cancer?:NO Surgeries, chemotherapy, or radiation?:NONCANCEROUS NODULE REMOVAL FROM LEFT LUNG RT TKR, Lt shoulder rotator cuff repair Type of Exam?:Unknown Additional signs and symptoms?:eval PTX Performed By: #### 4 [id number] ####[facility] [address] [place] [address] Garcia Rollins M.D. [id number] CONSULTon 08-06-2024 CONSULT [facility] Consult Note 08/06/24 Matthew Perez 1955 [id number] Assessment/Plan: Matthew Perez is a 69 y.o. female with a PMHx of HTN, HFpEF, prior spinal surgeries. She presented to [place] ED 08/05/2024 for fall from standing, found to have fractured right ribs 4-8, small pneumothorax. Transferred to [facility] 08/06/2024 for trauma evaluation. Fall: Hx of frequent falls. Fell from standing due to dizziness while raking leaves. CT head 08/06/2024 nonacute. Trauma findings as below. Continue pain control. Therapy as tolerated. Trauma following. Dizziness: Noted in chart, but patient denies. Did have dizziness/vertigo episodes 3 years ago, denies recurrence. Without significant metabolic derangements. EKG 08/06/2024 with NSR, nonischemic. Troponin <7. NTpBNP 219. Therapy as tolerated. OVS when able. Monitor telemetry. Recommend avoiding home sleep aid/caffeine stimulants; judicial opiates/Klonopin use. Traumatic right hemopneumothorax: Found on CT chest 08/06/2024 with small acute right nondependent anterior pneumothorax. Continue pulmonary hygiene. Trauma following. Multiple right rib fractures: With multiple acute nondisplaced anterior/anterolateral fractures of right ribs 4-8. Continue multimodal pain control. Trauma following. Preoperative Evaluation: Babar Revised Cardiac Index Risk Factors: 1, which is considered low risk for MACE (h/o CHF). At home, patient able to complete < 4 METS as evidenced by inability to climb two flights of stairs without CP or dyspnea. Chronic medical conditions that increase perioperative risk not captured within RCRI include: COPD, chronic pain. Most recent cardiac testing: EKG 08/06/2024 with NSR, non ischemic. TTE 06/28/23 with LVEF 67%, grade 1 diastolic dysfunction. After chart review and discussion with patient, qualifies for Intermediate Risk (1-2 RCRI with poor functional status). Plan to check NT-proBNP. If >200 would qualify as higher risk and would recommend monitoring troponin POD #1 and POD #2 to capture major adverse cardiac events (MACE) and myocardial injury after noncardiac surgery (MINS). Further cardiac testing will not reduce patients risk and okay to proceed without further testing. Final decision to take patient to OR left to risk/benefit decision making of surgical and anesthesia teams. Abnormal CT thoracic spine: With several old compression fractures of thoracic spine, no evidence of acute fractures, fracture at inferior endplate osteophyte of T7, multilevel degenerative changes. Recommend following up outpatient. Chronic pain syndrome: History of. In setting of multiple spinal surgeries as below. NARx reviewed. On chronic oxycodone. Continue multimodal pain control. Spinal stenosis with prior spinal surgery: S/p ACDF C7-T1. Hx lumbar posterior fusion with lumbar spinal stimulator: 07/[address] Landry ([facility]). Continue OP follow up. Chronic HFpEF: History of. TTE 06/28/23 with LVEF 67%, grade 1 diastolic dysfunction. Hypertension: Continued lisinopril, Lasix, reduced amlodipine until further trends. OVS as above. Thrombocytopenia: Presenting with PLT 143. Trend. Asthma: History of. On home Qvar, Singulair, albuterol as needed. Continue analogous home inhalers. Depression: Continued home sertraline. History of PE s/p IVC: Recent IVC placement. Denies taking Eliquis. Would continue at least ASA when able. Recommend OP follow up regarding AC/IVC retrieval. Code status: Full unverified DVT Prophylaxis: SCDs Thank you for allowing us to participate in the care of your patient. For any questions, please call the number of the covering hospitalist listed under the treatment team in care connect. Current living situation: home Expected Disposition: suspect same, therapy consulted Estimated discharge date: TBD I reviewed the patient's medications and noted those which may be inappropriate for their age and condition; I also provided recommendations to prevent, identify, and treat dementia, depression and delirium. We will collaborate with the multidisciplinary team to determine the patient's goals of care, status of advanced directives, and identification of a proxy decision maker, if needed. We will screen for mobility limitations and assure early, frequent, and safe mobility to help facilitate a safe transition out of the hospital. Chief Complaint / Reason for Consult: Geriatric evaluation, medical management, possible preop clearance History of Present Illness: Patient is a 69-year-old female with PMHx of HTN, HFpEF, prior spinal surgeries. She presented to [place] ED 08/05/2024 for fall from standing, found to have fractured right ribs 4-8, small pneumothorax. Transferred to [facility] 08/06/2024 for trauma evaluation. Patient seen and examined. States that she was outside raking leaves yesterday, and lost her balance. Denies presyncopal symptoms. No dizziness, lightheadedness, shortness of (more content not included)... Normal [facility] CT ABDOMEN PELVIS WITH IV CO NTRAST ONLYon 08-06-2024 CT ABDOMEN PELVIS WITH IV CONTRAST ONLY EXAMINATION: CT ABDOMEN PELVIS WITH IV CONTRAST ONLY 08/06/2024 HISTORY: ORDERING SYSTEM PROVIDED HISTORY: Trauma. TECHNOLOGIST PROVIDED HISTORY: Injury/Trauma. Reason for exam: Trauma. Encounter Type: Initial. Mechanism of injury: Trauma. ORDERING SYSTEM PROVIDED DIAGNOSIS CODES: S22.41XA Traumatic fracture of ribs of right side with pneumothorax. S27.0XXA Traumatic fracture of ribs of right side with pneumothorax. W19.XXXA Fall, initial encounter. COMPARISON: CT of the chest, abdomen and pelvis with contrast 10/26/2023. TECHNIQUE: CT examination of the abdomen and pelvis following the administration of intravenous contrast. Coronal and sagittal reformations were performed. Dose reduction techniques were achieved by using automated exposure control and/or adjustment of mA and/or kV according to patient size and/or use of iterative reconstruction technique. CONTRAST: Iopamidol 370 mg iodine/mL (76%) intravenous solution - 75 mL. FINDINGS: CT ABDOMEN: There is partial visualization of anteriorly located right-sided pneumothorax. Small posteriorly layering right pleural effusion with adjacent compressive atelectatic/consolidat katya change noted. Acute comminuted right-sided rib fracture deformities are present. A small portion of the lingula herniates between lateral 7th and 8th rib interspace. Heart size is similarly enlarged. The liver, gallbladder, spleen, pancreas, adrenals and kidneys demonstrate no acute abnormality. CT PELVIS: Intrapelvic contents are partially obscured by metallic artifact from right hip arthroplasty. Urinary bladder is quite distended without evidence of significant wall thickening or mass. The uterus and ovaries are not seen. There atrophy of the pelvic floor musculature. Diverticular disease of the colon is mild in severity. Bowel pattern does not appear to be obstructive. Mild atherosclerotic change of the aorta with tortuous without aneurysm or dissection. Overall the bony mineralization is diminished throughout. Posterior eliezer and screw fixation of the lower thoracic and lumbar spine noted. Prior vertebroplasty involving lower thoracic spine noted. Chondrocalcinosis of the pubic symphysis with ncojcqqg-rp-abdpey arthritis at the left hip and less so about both SI joints are noted. Multilevel laminectomy defects are identified. There are subacute/chronic posteriorly located right-sided rib fracture deformities also noted. Chronic compression changes involving lower thoracic and lumbar spine faintly suggested but partially obscured by artifact created by hardware. IMPRESSION: 1. Acute comminuted nondisplaced and mildly displaced anterolateral right-sided rib fracture deformities as well as subacute/chronic posterior right-sided rib fractures noted. 2. There is a right-sided pneumothorax partially visualized noted anteriorly as well as a small right pleural effusion with adjacent compressive atelectasis 3. Prior left lower lobe pulmonary wedge resection. The inferior lingula herniates through the lateral left 7th and 8th rib interspace similar to that seen on prior study. 4. Stable cardiomegaly. 5. No acute intraabdominal or intrapelvic process otherwise noted. 6. Mild colonic diverticulosis without diverticulitis or appendicitis. 7. Prior hysterectomy with bilateral salpingo-oophorectomy. 8. Prior right hip arthroplasty. Posterior eliezer and screw fixation of the lower thoracic and lumbar spine. Mild chronic compression changes involving the lower thoracic spine are noted. Hardware appears to be well seated. 9. Zqbqwufq-dk-cerzoe arthritic changes about the left hip more so the both SI joints with chondrocalcinosis noted. 10. Critical results were called by Dr. Joaquina Coates to Dr. Allie Fisher on 08/06/2024 at 13:37. [employer] Workstation ID: [id number] Dictated by: JOAQUINA COATES on TueAug 06, 2024 1:37:21 PM EDT Transcribed by: VAL FELICIANO on TueAug 06, 2024 1:48:10 PM EDT Finalized by: JOAQUINA COATES on TueAug 06, 2024 6:32:47 PM EDT Normal [facility] Comment on above: Order Comment: Injur y/Trauma or Illness?:Injury/TraumaHow long have you had these symptoms (acute/chronic)?:AcuteReason for exam?:traumaType of Exam?:InitialMechanism of injury?:trauma CT CERVICAL SPINE WITHOUT CO NTRAST 3Don 08-06-2024 CT CERVICAL SPINE WITHOUT CONTRAST 3D EXAMINATION: CT CERVICAL SPINE WITHOUT CONTRAST 3D, 08/06/2024 HISTORY: ORDERING SYSTEM PROVIDED HISTORY: Trauma, TECHNOLOGIST PROVIDED HISTORY: Injury/Trauma Reason for exam: trauma Encounter Type: Initial Mechanism of injury: trauma ORDERING SYSTEM PROVIDED DIAGNOSIS CODES: S22.41XA Traumatic fracture of ribs of right side with pneumothorax S27.0XXA Traumatic fracture of ribs of right side with pneumothorax W19.XXXA Fall, initial encounter COMPARISON: CT of the cervical spine without contrast, 10/26/2023. TECHNIQUE: Dose reduction techniques were achieved by using automated exposure control and/or adjustment of mA and/or kV according to patient size and/or use of iterative reconstruction technique. Coronal and sagittal MIP (maximum intensity projection) images were performed. FINDINGS: The visualized portions of the posterior facial bones and skull base are intact. Arthritic changes at the temporomandibular articulations bilaterally are asymmetrically greater toward the right. Degenerative narrowing of the predental space with associated sclerosis and osteophytosis noted. Multilevel discectomy with interbody fusion from C4 through T1 levels noted. Anterior plate screw fixation is noted at C4-C5 as well as at C7-T1. Multilevel facet arthritic changes are identified. There is ankylosis of several facet articulations. This is seen for example toward the right at C4-C5 level. Overall cervical spinal pedicles appear short. The alignment is otherwise intact. The C1 ring is intact. At C2-C3 significant facet arthritic change toward the left is noted with erosive component. There is mild left-sided foraminal encroachment identified. No critical canal stenosis. At C3-C4 there is no critical canal stenosis or foraminal stenosis. At C4-C5 ankylosis of facet articulations bilaterally with greater hypertrophic osseous change toward the right noted. There is mild foraminal encroachment of the right more so than left. No critical canal stenosis. At C5-C6 minor bilateral uncovertebral arthritic and facet arthritic changes are identified. Mild bilateral foraminal encroachment noted. No critical canal stenosis suspected. At C6-C7 left-sided foraminal encroachment from uncovertebral arthritic and facet arthritic changes noted. Mild posterior endplate spurring is paracentrally noted toward the right. No critical canal stenosis. At C7-T1 bilateral facet arthritic changes with left-sided foraminal encroachment noted. Hardware appears to be well seated. Intrathecal contents are partially obscured by metallic artifact from hardware. Right apical pneumothorax is partially visualized. Visceral separation on last image of the study anteromedially is at least 2.1 cm. Prevertebral soft tissues demonstrate no acute abnormality. IMPRESSION: 1. Partial visualization of right-sided pneumothorax with visceral separation of 2.1 cm anteromedially. 2. Prior anterior plate and screw fixation at C4-C5 and C7-T1. Multilevel discectomies with interbody fusion from C4 through C7 levels noted. Hardware appears to be well seated and the alignment is satisfactory. 3. Overall cervical spinal pedicles appear short contributing to diffuse developmental canal stenosis. 4. Negative for acute cervical spinal fracture or subluxation. 5. Multilevel uncovertebral arthritic and facet arthritic changes as described. Facet disease is most apparent toward the left at C3-4. There is ankylosis of several of the facet articulations. Critical results were called by Dr. Joaquina Coates to Dr. Fisher on 08/06/2024 at 13:44. [employer] Workstation ID: [id number] Dictated by: JOAQUINA COATES on TueAug 06, 2024 1:44:21 PM EDT Transcribed by: SYL BRUNSON on TueAug 06, 2024 1:58:18 PM EDT Finalized by: JOAQUINA COATES on TueAug 06, 2024 6:32:34 PM EDT Normal [facility] Comment on above: Order Comment: Injur y/Trauma or Illness?:Illness/Other How long have you had these symptoms (acute/chronic)?:Acute Reason for exam?:eval for pneumothorax History of cancer?:NO Surgeries, chemotherapy, or radiation?:NONCANCEROUS NODULE REMOVAL FROM LEFT LUNG RT TKR, Lt shoulder rotator cuff repair Type of Exam?:Subsequent/Follow-up Additional signs and symptoms?:eval for pneumothorax CT CHEST WITHOUT CONTRASTon 08-06-2024 CT CHEST WITHOUT CONTRAST EXAMINATION: CT CHEST WITHOUT CONTRAST HISTORY: ORDERING SYSTEM PROVIDED HISTORY: fall with injury to right side of chest wall, TECHNOLOGIST PROVIDED HISTORY: Illness/Other Reason for exam: Pt stated she was raking in yard and felt off balance and fell, BS108 left AC IV VS 163/110 hr74 NC 3L HX CHF COPD verigo Encounter Type: Initial Additional signs and symptoms: Pt stated she was raking in yard and felt off balance and fell, BS108 left AC IV VS 163/110 hr74 NC 3L HX CHF COPD verigo ORDERING SYSTEM PROVIDED DIAGNOSIS CODES: COMPARISON: None TECHNIQUE: CT chest without contrast. Dose reduction techniques were achieved by using automated exposure control and/or adjustment of mA and/or kV according to patient size and/or use of iterative reconstruction technique. FINDINGS: MEDIASTINUM: Trachea and central airways are patent. Thoracic aorta is normal caliber. Maximum diameter ascending aorta 3.8 cm with distal tapering. Cardiac chambers are mild to moderately enlarged. There does appear to be pulmonary venous congestion. Suspect mild CHF. No mediastinal or hilar lymphadenopathy. PLEURAL CAVITY: 2 right pneumothorax. See the are low. Small thorax. Pleural reflected approximately 1.5 cm anteriorly. Trace no significant pleural fluid or effusions. No left pneumothorax. LUNGS: Dependent bibasilar atelectasis. Mild basilar interstitial prominence. Can be seen with CHF. Linear suture ovoid calcifications left lower lobe calcified left lower lobe lung granulomas. Correlate for previous left lung surgery. CHEST WALL/AXILLA: No axillary lymphadenopathy. VISUALIZED UPPER ABDOMEN: No acute findings. OSSEOUS STRUCTURES: There are multiple acute anterolateral right rib fractures without significant displacement. This includes the anterolateral right of 4th, 5th, 6th, 7th and 8th ribs. There is old posterior healed right 9th rib fracture. No displaced rib fractures. No acute left rib fractures. No acute upper extremity fractures on this exam. Lower ACDF hardware. Patient has had previous posterior spinal fixation in the lower thoracic region extending to the lumbar spine. Incomplete imaging of distal extent. Normal height and alignment of thoracic vertebrae. No thoracic spine fractures. Intact sternum. IMPRESSION: 1. Small acute right nondependent anterior pneumothorax as discussed. 2. Multiple acute nondisplaced anterior/anterolateral right 4th through 8th rib fractures. 3. Old healed posterior right 9th rib fracture. 4. Suspected acute mild CHF with cardiac chamber enlargement and pulmonary venous congestion mild basilar interstitial edema and dependent bibasilar atelectasis. Correlate with labs and presentation. 5. Posterior lower thoracic to lumbar spine fixation hardware. Critical value was reported to Ordering Physician: FERNANDO ALAS by Dr. Missael Bean on 08/06/2024 at 0358 hours, EST. Workstation ID: [id number] Dictated by: MISSAEL BEAN on TueAug 06, 2024 4:00:17 AM EDT Transcribed by: MISSAEL BEAN on TueAug 06, 2024 4:00:17 AM EDT Finalized by: MISSAEL BEAN on TueAug 06, 2024 4:00:17 AM EDT Normal [facility] Comment on above: Order Comment: Injur y/Trauma or Illness?:Illness/Other Pt stated she was raking in yard and felt off balance and fell, BS108 left AC IV VS 163/110 hr74 NC 3L HX CHF COPD verigo How long have you had these symptoms (acute/chronic)?:Acute Reason for exam?:Pt stated she was raking in yard and felt off balance and fell, BS108 left AC IV VS 163/110 hr74 NC 3L HX CHF COPD verigo Type of Exam?:Initial Additional signs and symptoms?:Pt stated she was raking in yard and felt off balance and fell, BS108 left AC IV VS 163/110 hr74 NC 3L HX CHF COPD verigo CT HEAD OR BRAIN WITHOUT CON TRASTon 08-06-2024 CT HEAD OR BRAIN WITHOUT CONTRAST EXAMINATION: CT HEAD OR BRAIN WITHOUT CONTRAST HISTORY: ORDERING SYSTEM PROVIDED HISTORY: trauma, TECHNOLOGIST PROVIDED HISTORY: Injury/Trauma Reason for exam: trauma Encounter Type: Initial Mechanism of injury: trauma ORDERING SYSTEM PROVIDED DIAGNOSIS CODES: S22.41XA Traumatic fracture of ribs of right side with pneumothorax S27.0XXA Traumatic fracture of ribs of right side with pneumothorax W19.XXXA Fall, initial encounter COMPARISON: 10/26/2023 TECHNIQUE: CT examination of the head without IV contrast. Dose reduction techniques were achieved by using automated exposure control and/or adjustment of mA and/or kV according to patient size and/or use of iterative reconstruction technique. FINDINGS: There is mild generalized atrophy. There is mild patchy low-density white matter disease, likely chronic small vessel ischemic changes. No mass, acute intracranial hemorrhage or any abnormal extra-axial fluid collection is seen. There is no mass effect or shift of midline structures. Villar-white matter distinction is preserved. No large vessel infarct or hydrocephalus is evident. No skull fracture is seen. There is minimal/mild sinus mucosal thickening. The paranasal sinuses otherwise are clear, as are the mastoid air cells and middle ear cavities. IMPRESSION: 1. Mild atrophy. 2. Mild patchy low-density white matter disease, likely chronic small vessel ischemic changes. 3. Negative for acute intracranial process. No acute traumatic findings status post fall. Workstation ID: [id number] Dictated by: LUKAS BOTELLO on TueAug 06, 2024 1:30:23 PM EDT Transcribed by: LUKAS BOTELLO on TueAug 06, 2024 1:30:23 PM EDT Finalized by: LUKAS BOTELLO on TueAug 06, 2024 1:30:23 PM EDT Normal [facility] Comment on above: Order Comment: Injur y/Trauma or Illness?:Injury/TraumaHow long have you had these symptoms (acute/chronic)?:AcuteReason for exam?:traumaType of Exam?:InitialMechanism of injury?:trauma CT THORACIC AND LUMBAR SPINE WITHOUT CONTRASTon 08-06-2024 CT THORACIC AND LUMBAR SPINE WITHOUT CONTRAST EXAMINATION: CT THORACIC AND LUMBAR SPINE WITHOUT CONTRAST HISTORY: low back pain after fall COMPARISON: 10/26/2023 TECHNIQUE: Helical CT imaging of the thoracic and lumbar spine was performed and supplemented with axial, sagittal, and coronal reconstructions. 3-D reformats were performed and reviewed for better evaluation of thoracic and lumbar alignment. Dose reduction techniques were achieved by using automated exposure control and/or adjustment of mA and/or kV according to patient size and/or use of iterative reconstruction technique. CONTRAST: None. FINDINGS: SEGMENTATION: There are 12 thoracic rib bearing and 5 lumbar non rib bearing vertebral segments. THORACIC SPINE: Postoperative: There postoperative changes of ACDF at C7-T1 with anterior plate and vertebral body screw fixation. No change since prior exam. There also changes of posterior fusion and instrumentation from T10 to S1 with pedicle screw and interconnecting eliezer fixation. These findings were also present on the prior exam. Alignment: Normal AP alignment. Vertebrae: There are mild compression fractures the of the T7 and T8 superior endplates which are unchanged since prior examination. There is a mild compression fracture T9 inferior endplate which is stable. There are changes of vertebroplasty at the T10 level. No evidence of acute fractures throughout the thoracic spine. The bones are osteopenic. There is a healing fracture of the posterior right 9th rib. Intervertebral discs: Multilevel degenerative disc disease. There are anterior and lateral endplate osteophytes at multiple levels. These are most prominent at T7-T8 through T10-T11. There is a fracture through the base of the endplate osteophytes at the inferior T7 level which is new since prior examination but have a chronic appearance. Spinal canal: No osseous encroachment upon the spinal canal. Neural Foramina: No multilevel facet arthropathy contributes to mild multilevel foraminal narrowing. Additional: There is atelectasis of the right lower lobe of the lung. There is a small is right apical pneumothorax. LUMBAR SPINE: Motion artifact limits this portion of examination. Postoperative: There postoperative changes of posterior fusion and instrumentation throughout the lumbar spine. The spinal canal has been decompressed throughout the lumbar spine. Alignment: Alignment is maintained. Vertebra: The bones are osteopenic. The bones are poorly assessed at this level due to motion artifact and beam hardening artifact from surgical hardware. Within this limitation, no acute fractures are identified. No significant loss of vertebral body heights. Intervertebral Discs: Fusion across the interspaces. Spinal canal: The spinal canal has been decompressed. Extensive motion and beam hardening artifact limits assessment of the spinal canal. There is a stimulator lead entering the dorsal aspect the spinal canal at the L3-L4 level and ascends to the upper lumbar levels. IMPRESSION 1. Evaluation of the lumbar spine is limited due to motion and beam hardening artifact. 2. There is a healing fracture of the posterior right 9th rib. 3. There are several old compression fractures of thoracic spine. No evidence of acute fractures are identified throughout the thoracic and lumbar spine. The symptoms persist, further assessment with MRI could be considered. 4. Multilevel degenerative changes. 5. Extensive postoperative changes. 6. There are large anterior endplate osteophytes at multiple levels of the lower thoracic spine. There is a fracture through the base of the inferior endplate osteophyte at T7 which has a chronic appearance but is new since prior CT. 7. There is atelectasis throughout the right lower lobe of the lung. 8. Small right apical pneumothorax. Workstation ID: [id number] Dictated by: KEILA SIMEON on TueAug 06, 2024 2:40:39 AM EDT Transcribed by: KEILA SIMEON on TueAug 06, 2024 2:40:39 AM EDT Finalized by: KEILA SIMEON on TueAug 06, 2024 2:40:39 AM EDT Normal [facility] Comment on above: Order Comment: Injur y/Trauma or Illness?:Injury/Trauma Pt stated she was raking in yard and felt off balance and fell, BS108 left AC IV VS 163/110 hr74 NC 3L HX CHF COPD verigo How long have you had these symptoms (acute/chronic)?:Acute Reason for exam?:Pt stated she was raking in yard and felt off balance and fell, BS108 left AC IV VS 163/110 hr74 NC 3L HX CHF COPD verigo Type of Exam?:Initial Mechanism of injury?:Pt stated she was raking in yard and felt off balance and fell, BS108 left AC IV VS 163/110 hr74 NC 3L HX CHF COPD verigo DRUGS OF ABUSE SCREEN, URINE on 08-06-2024 AMPHETAMINE SCREEN, URINE Not detected Normal None Detected [facility] Comment on above: Order Comment: Injur y/Trauma or Illness?:Illness/Other How long have you had these symptoms (acute/chronic)?:Unknown Reason for exam?:eval PTX History of cancer?:NO Surgeries, chemotherapy, or radiation?:NONCANCEROUS NODULE REMOVAL FROM LEFT LUNG RT TKR, Lt shoulder rotator cuff repair Type of Exam?:Unknown Additional signs and symptoms?:eval PTX Result Comment: Urin e Amphetamine Cutoff: < 1000 ng/mL = None Detected Performed By: #### [id number] ####[facility] [address] [place] [address] Garcia Rollins M.D. [id number] BARBITURATE SCREEN URINE Not detected Normal None Detected [facility] Comment on above: Order Comment: Injur y/Trauma or Illness?:Illness/Other How long have you had these symptoms (acute/chronic)?:Unknown Reason for exam?:eval PTX History of cancer?:NO Surgeries, chemotherapy, or radiation?:NONCANCEROUS NODULE REMOVAL FROM LEFT LUNG RT TKR, Lt shoulder rotator cuff repair Type of Exam?:Unknown Additional signs and symptoms?:eval PTX Result Comment: Urin e Barbiturates Cutoff: < 200 ng/mL = None Detected Performed By: #### [id number] ####[facility] [address] [place], [place] [id number] Garcia Rollins M.D. [id number] BENZODIAZEPINE SCREEN, URINE Not detected Normal None Detected [facility] Comment on above: Order Comment: Injur y/Trauma or Illness?:Illness/Other How long have you had these symptoms (acute/chronic)?:Unknown Reason for exam?:eval PTX History of cancer?:NO Surgeries, chemotherapy, or radiation?:NONCANCEROUS NODULE REMOVAL FROM LEFT LUNG RT TKR, Lt shoulder rotator cuff repair Type of Exam?:Unknown Additional signs and symptoms?:eval PTX Result Comment: Urin e Benzodiazepine Cutoff: < 200 ng/mL = None Detected Performed By: #### [id number] ####[facility] [address] [place], [place] [id number] Garcia Rollins M.D. [id number] BUPRENORPHINE, URINE Not detected Normal None Detected [facility] Comment on above: Order Comment: Injur y/Trauma or Illness?:Illness/Other How long have you had these symptoms (acute/chronic)?:Unknown Reason for exam?:eval PTX History of cancer?:NO Surgeries, chemotherapy, or radiation?:NONCANCEROUS NODULE REMOVAL FROM LEFT LUNG RT TKR, Lt shoulder rotator cuff repair Type of Exam?:Unknown Additional signs and symptoms?:eval PTX Result Comment: Urin e Buprenorphine Cutoff: < 5 ng/mL = None Detected Performed By: #### [id number] ####[facility] [address] [place], [place] [id number] Garcia Rollins M.D. [id number] CANNABINOID SCREEN URINE Not detected Normal None Detected [facility] Comment on above: Order Comment: Injur y/Trauma or Illness?:Illness/Other How long have you had these symptoms (acute/chronic)?:Unknown Reason for exam?:eval PTX History of cancer?:NO Surgeries, chemotherapy, or radiation?:NONCANCEROUS NODULE REMOVAL FROM LEFT LUNG RT TKR, Lt shoulder rotator cuff repair Type of Exam?:Unknown Additional signs and symptoms?:eval PTX Result Comment: Urin e Cannabinoids Cutoff: < 50 ng/mL = None Detected Performed By: #### [id number] ####[facility] [address] [place], [place] [id number] Garcia Rollins M.D. [id number] COCAINE, SCREEN URINE Not detected Normal None Detected [facility] Comment on above: Order Comment: Injur y/Trauma or Illness?:Illness/Other How long have you had these symptoms (acute/chronic)?:Unknown Reason for exam?:eval PTX History of cancer?:NO Surgeries, chemotherapy, or radiation?:NONCANCEROUS NODULE REMOVAL FROM LEFT LUNG RT TKR, Lt shoulder rotator cuff repair Type of Exam?:Unknown Additional signs and symptoms?:eval PTX Result Comment: Urin e Cocaine Cutoff: < 300 ng/mL = None Detected Performed By: #### [id number] ####[facility] [address] [place], [place] [id number] Garcia Rollins M.D. [id number] FENTANYL, URINE Not detected Normal None Detected [facility] Comment on above: Order Comment: Injur y/Trauma or Illness?:Illness/Other How long have you had these symptoms (acute/chronic)?:Unknown Reason for exam?:eval PTX History of cancer?:NO Surgeries, chemotherapy, or radiation?:NONCANCEROUS NODULE REMOVAL FROM LEFT LUNG RT TKR, Lt shoulder rotator cuff repair Type of Exam?:Unknown Additional signs and symptoms?:eval PTX Result Comment: Urin e Fentanyl Cutoff: < 1 ng/mL = None Detected Performed By: #### [id number] ####[facility] [address] [place], [place] [id number] Garcia Rollins M.D. [id number] METHADONE SCREEN, URINE Not detected Normal None Detected [facility] Comment on above: Order Comment: Injur y/Trauma or Illness?:Illness/Other How long have you had these symptoms (acute/chronic)?:Unknown Reason for exam?:eval PTX History of cancer?:NO Surgeries, chemotherapy, or radiation?:NONCANCEROUS NODULE REMOVAL FROM LEFT LUNG RT TKR, Lt shoulder rotator cuff repair Type of Exam?:Unknown Additional signs and symptoms?:eval PTX Result Comment: Urin e Methadone Cutoff: < 300 ng/mL = None Detected Performed By: #### [id number] ####[facility] [address] [place], [place] [id number] Garcia Rollins M.D. [id number] OPIATE SCREEN URINE Positive Abnormal None Detected [facility] Comment on above: Order Comment: Injur y/Trauma or Illness?:Illness/Other How long have you had these symptoms (acute/chronic)?:Unknown Reason for exam?:eval PTX History of cancer?:NO Surgeries, chemotherapy, or radiation?:NONCANCEROUS NODULE REMOVAL FROM LEFT LUNG RT TKR, Lt shoulder rotator cuff repair Type of Exam?:Unknown Additional signs and symptoms?:eval PTX Result Comment: Urin e Opiates Cutoff: < 300 ng/mL = None Detected Performed By: #### [id number] ####[facility] [address] [place], [place] [id number] Garcia Rollins M.D. [id number] OXYCODONE SCREEN, URINE Positive Abnormal None Detected [facility] Comment on above: Order Comment: Injur y/Trauma or Illness?:Illness/Other How long have you had these symptoms (acute/chronic)?:Unknown Reason for exam?:eval PTX History of cancer?:NO Surgeries, chemotherapy, or radiation?:NONCANCEROUS NODULE REMOVAL FROM LEFT LUNG RT TKR, Lt shoulder rotator cuff repair Type of Exam?:Unknown Additional signs and symptoms?:eval PTX Result Comment: Urin e Oxycodone Cutoff: < 100 ng/mL = None Detected Performed By: #### [id number] ####[facility] [address] [place], [place] [id number] Garcia Rollins M.D. [id number] ED Prov Noteon 08-06-2024 ED Prov Note HPI/ROS I saw and evaluated the patient. I have reviewed the chief complaint, triage note, past medical/surgical, family, and social history. The patient is a 69 y.o. female presenting to the ED as a transfer from [facility]. She sustained a mechanical fall yesterday while attempting to rake leaves. Workup there was significant for a small right-sided pneumothorax with associated 4th through 8th anterior rib fractures. Medical Decision Making 69-year-old female presenting to the ED as a transfer from [facility]. Fall the day prior. Workup significant for a small right-sided pneumothorax and 4th-8th anterior rib fractures. On examination, GCS of 15. Primary survey unremarkable. Secondary survey with right anterior lateral chest wall TTP. No crepitus. No ecchymoses. Further imaging including CT brain, CT C-spine, and CT AP ordered per trauma. CXR with stable right-sided pneumothorax. Admitted to trauma for further management. 1. Traumatic fracture of ribs of right side with pneumothorax 2. Fall, initial encounter Disposition: MDM Data MDM Data : Chronic conditions is/is not having mild/moderate/severe exacerbation, progression or side effects of treatment, Shared decision making utilized by explaining the results and plan of care for disposition and next steps of care with the patient and/or family, Treatment Goals were addressed, Drug management discussed, Discussed with consultants/staff, and Social Determinants of Health Impacted Treatment/Disposition Physical Exam Vital signs reviewed. Physical Exam Vitals and nursing note reviewed. Constitutional: Appearance: Normal appearance. HENT: Head: Normocephalic and atraumatic. Comments: No cephalohematomas. Mouth/Throat: Mouth: Mucous membranes are moist. Eyes: Extraocular Movements: Extraocular movements intact. Neck: Comments: No C-spine TTP. Cardiovascular: Rate and Rhythm: Normal rate and regular rhythm. Pulmonary: Effort: Pulmonary effort is normal. Breath sounds: Normal breath sounds. No wheezing. Comments: Right anterior lateral chest wall TTP. No crepitus. No ecchymoses. Abdominal: General: There is no distension. Palpations: Abdomen is soft. Tenderness: There is no abdominal tenderness. Musculoskeletal: Comments: No midline spinal TTP. No upper or lower extremity TTP. Skin: General: Skin is warm. Neurological: General: No focal deficit present. Mental Status: She is alert. Motor: No weakness. Labs Laboratory results have been reviewed by me. Labs Reviewed CBC - Abnormal; Notable for the following components: Result Value Platelets 143 (*) All other components within normal limits COMPREHENSIVE METABOLIC PANEL - Abnormal; Notable for the following components: Glucose 115 (*) Creatinine 0.56 (*) All other components within normal limits Narrative: [facility] has implemented the eGFR calculation approach that does not have a coefficient for race that conforms to the NKF-ASN Task Force Recommendations. URINALYSIS - Abnormal; Notable for the following components: Specific [place] 1.032 (*) All other components within normal limits Narrative: Microscopic examination is performed on all urinalysis samples and only positive findings are reported. The test for blood on the chemical analytic portion of urinalysis may also be positive due to hemoglobinuria and myoglobinuria and if red blood cells are present they are quantified by microscopic examination. DRUGS OF ABUSE SCREEN, URINE - Abnormal; Notable for the following components: Opiate Screen, Urine Presumptive Positive (*) Oxycodone Screen, Urine Presumptive Positive (*) All other components within normal limits Narrative: Screen results should be used for treatment purposes only. Specimen will be kept for 2 weeks, if the sample is adequate. Confirmation testing can be initiated by calling the lab within 2 weeks. MAGNESIUM LEVEL - Normal PHOSPHORUS - Normal PT/INR - Normal Narrative: During the induction phase of oral anticoagulation, the INR may not reflect the anticoagulation status of the patient. Therapeutic ranges for INR's are: Most clinical situations: INR 2.0-3.0 Mechanical Prosthetic Valve: INR 2.5-3.5 Critical: INR >5.0 APTT - Normal Narrative: Therapeutic range for APTT's is 68 - 104 seconds ALCOHOL, MEDICAL - Normal TYPE AND SCREEN Radiographic Imaging (if any) During ED Visit XR Chest 1 View Preliminary Result 1. Acute nondisplaced and displaced right-sided rib fracture deformities are identified. Associated right-sided pneumothorax persists with apical visceral separation estimated at 16 mm. Lateral visceral separation is estimated at 9 mm. 2. Prior left-sided pulmonary wedge resection with suture material overlapping left perihilar region. 3. Moderate large of the cardiac silhouette is noted. Central pulmonary arterial prominence may be in (more content not included)... Normal [facility] ED Prov Note ED PROVIDER NOTE [facility] NAME: Matthew Perez AGE: 69 y.o. : 1955 VISIT DATE: 08/05/2024 CSN: [id number] PCP: Harmony Gee MD Clinical Impression: 1. Fall from standing, initial encounter 2. Closed fracture of multiple ribs of right side, initial encounter 3. Pneumothorax, unspecified type ED Disposition ED Disposition Transfer to Another Facility Condition -- Comment Matthew Perez to be transferred to [facility]. Follow-up Information Follow-up information has not been specified. Contact information for after-discharge care Follow-up information has not been specified. Medical Decision Making Patient is a 69-year-old female who presents for evaluation after a fall from standing height resulting in fractures of ribs 4 through 8 on the right side of her chest wall as well as a small pneumothorax. Patient denies impact to head, or loss of consciousness. I did obtain CT imaging of chest abdomen and pelvis as well as thoracic and lumbar spines. CT chest is notable for the rib fractures of right ribs 4 through 8 as well as pneumothorax. Please see CT reports for additional details. Lab results are unremarkable at this time. EKG is negative for arrhythmia, or other acute changes. Patient was in a profound amount of pain. Patient does take a fair amount of narcotic pain medication as part of the routine pain management regimen. Patient was given ketamine as well as multiple doses of morphine and still had significant symptoms. I did feel that patient would benefit from admission to a facility with trauma capabilities secondary to her injuries as well as her acute pain management needs. I did discuss patient's case with trauma team at [facility] and patient was accepted for transfer for further management. All of patient's questions were answered regarding emergency department workup to her satisfaction. Patient was agreeable to transfer for further management at this time. Patient was transferred to [facility] in stable clinical condition. Amount and/or Complexity of Data Reviewed Labs: ordered. Decision-making details documented in ED Course. Radiology: ordered. Decision-making details documented in ED Course. ECG/medicine tests: ordered and independent interpretation performed. Decision-making details documented in ED Course. Risk Parenteral controlled substances. Decision regarding hospitalization. Chief Complaint Patient presents with Fall Patient is a 69-year-old female who presents for evaluation after a fall. Patient had been raking leaves in her yard when she became dizzy and fell landing on her right side. Patient expresses that she is in significant pain and that she is unable to walk without having severe pain in the right aspect of her chest as well as in her low back. Patient denies hitting her head or losing consciousness. Denies focal numbness or weakness. Denies palpitations or shortness of breath. She does express that taking in a deep breath is painful. Past Medical History: Diagnosis Date Anxiety Arthritis osteo Asthma 08/23/2014 Back pain Cardiomyopathy (HCC) resolved (EF 45% per cath 09/21/2006; EF 55-60% per echo 04/16/2019). Depression Diastolic dysfunction mild per echo on 06/08/2019 Edema Fibromyalgia, primary GERD (gastroesophageal reflux disease) patient denies History of echocardiogram Hypertension 04/01/2015 Migraines Obesity AYO (obstructive sleep apnea) cannot tolerate C-Pap Pneumonia x2 , had 2 pneumonia shots Restless legs syndrome Saphenous vein clot superficial LLE Shoulder joint pain Spinal stenosis Varicose veins of both lower extremities Past Surgical History: Procedure Laterality Date ANTERIOR CERVICAL DISCECTOMY 02/25/2009 C5-6, C6-7 AR'BRITTNO SHOULD SAD, SLAP, RCR, RESECT DISTAL CLAVICLE, BICEPS TENODESIS Right 11/04/2015 ARTHROPLASTY HIP TOTAL Right 02/27/2018 Procedure: RIGHT TOTAL HIP ARTHROPLASTY; Surgeon: Gabo Sears MD; Location: [facility] Main OR; Service: Orthopedic BLADDER SUSPENSION BRONCHOSCOPY CARDIAC CATHETERIZATION Bilateral 09/21/2006 COLONOSCOPY CV IR INTERVENTIONAL RADIOLOGY N/A 08/22/2023 Procedure: VR IVC Filter Insert; Surgeon: Lukas Beverly DO; Location: [facility] EP [facility]; Service: Interventional Radiology CV IR INTERVENTIONAL RADIOLOGY N/A 10/07/2023 Procedure: VR IVC Filter Removal; Surgeon: Roxana Lopez MD; Location: [facility] VIDEO INTERN; Service: Interventional Radiology FOOT SURGERY Right 03/08/2005 Third interdigital neuroma excision, fourth metatarsal osteotomy w/capsulotomy, fifth metatarsal head excision HARDWARE REMOVAL ANTERIOR CERVICAL 07/22/2014 C5, C6-7 HARDWARE REMOVAL LUMBAR 01/02/2009 L5-S1 w/ redo decompression laminectomy HYSTERECTOMY CARLOS MANUEL BSO Bladder suspension KNEE ARTHROSCOPY W/ LAS (more content not included)... Normal [facility] H AND Ang 08-06-2024 H AND P -- Attestation signed by Lee Rodriguez MD at 08/06/2024 10:15 PM I discussed the case with the resident/SPEECH CLINICIAN and agree with the findings and plan as documented in his/her note and/or any note I supplied. [facility] H&P Note Patient Information Patient Name: Matthew Perez Age/Sex: 69 y.o., female : 1955 Date of evaluation: 08/06/2024 Code Status: Full Code - Unverified Trauma Category: Consult Trauma Attending: Dr. Rodriguez , discussed patient at 1213. The attending trauma surgeon participated in the decision-making regarding interventions and imaging. They were made aware of all positive imaging results and agreed with my plan as described during this communication. HPI/Ongoing Assessment: Matthew Perez 69 y.o. female with a past medical history of Asthma, HTN, Depression, Migraines, Arthritis, Varicose veins of both lower extremities, Obesity, Fibromyalgia, Restless Leg Syndrome, GERD, Spinal stenosis, Anxiety, AYO, that presented to [facility] from [facility] on 08/06/24 s/p Fall with a Chief Complaint of right rib pain. 08/05/2024 the patient was reportedly out raking her leaves when she was dizzy and she fell hitting her right side. Patient did not hit head, and did not have LOC. AC/AP use: denies use of AC/AP meds. Tx from [facility] ED due to imaging revealed Right 4-8 rib fractures, and right traumatic hemopneumothorax. Patient admitted to Trauma Service. Medicine consulted. Plan: - Plan to: Admit to Trauma Service - Therapy and dispo - Awaiting consulting services recommendations: Medicine - Tertiary exam in AM - Pain control - Obtain CT H, C spine, AP w/ IV contrast and 6hr stability CXR Trauma: Consults: Medicine (Geriatric Focused) Consult Orders Placed for listed consultants: Yes Spine clearance status: - Cervical spine is cleared - TLS spine are cleared WB Status: No restrictions Diet: NPO, sips with meds DVT prophylaxis: Lovenox sq and SCDs Rolanda eval indicated: Yes, Criteria Met: ISAR > 2 Vizient: Admitted with these risk variables: CHF, COPD, and Thrombocytopenia, Qualitative Platelet Defects. Injuries/Active Problems: - Rib Fx - right anterolateral 4-8 ribs, Likely NOM, O2 goal > 92%, pulmonary hygiene, rib fractures secondary to osteopenia that alone not caused by trauma - Traumatic Right Hemopneumothorax - Right apical PTX and right anterior 1.5 cm PTX with small right GUERO, 6hr follow up CXR pending, O2 goal > 92%, pulmonary hygiene, chest tube is not needed at this time - Dizziness prior to fall - Medicine consulted for work-up, appreciate recs - Abnormal CT Scan Thoracic spine - mild compression fractures of the the T7 and T8 superior endplates which are unchanged since prior examination. There is a mild compression fracture T9 inferior endplate which is stable and also changes of vertebroplasty at the T10 level. No evidence of acute fractures throughout the thoracic spine. There is a fracture through the base of the endplate osteophytes at the inferior T7 level which is new since prior examination but have a chronic appearance. NTTP on exam, no further work up or consults indicated. PMH: Resume home medications as able, medicine is consulted for medical management - Asthma - HTN - Depression - Migraines - Arthritis - Varicose veins of both lower extremities - Obesity - Fibromyalgia - Restless Leg Syndrome - GERD - Spinal stenosis - Anxiety - AYO - prior ACDF C7-T1 - Prior lumbar posterior fusion - Lumbar spinal stimulator Lab Abnormalities: - Thrombocytopenia - Plt 143 on admission, now 143, monitor CBC Daily, monitor for s/sx of ongoing bleeding Incidental Findings: - Cardiomegaly - Suspect mild CHF Discuss with patient prior to discharge, follow up outpatient with primary care provider Trauma Information Trauma Automotive Brake Technician: Иван Matos, OLIVER Response to Bedside: within 30 mins Mode of Arrival/Immobility Devices: EMS Transfer from outside hospital/facility: yes, Tx from [facility] ED Procedures done on admission? No Objective: Recent vital signs reviewed BP (!) 152/75 Pulse 88 Temp 98.2 degrees F (36.8 degrees C) (Oral) Resp 15 LMP (LMP Unknown) SpO2 92% General: Patient not in distress Neuro: GCS 15, (E4, V5, M6), Strength 5/5 throughout, sensation intact Head: Normocephalic, facial bones are nontender Eyes: PERRL & EOMs intact, gross vision intact ENT: Nares are clear, moist mucous membranes, trachea midline Chest: Symmetrical expansion, chest wall is tender right, no palpable crepitus CV: S1 & S2 noted, no murmur/rub/gallop, palpable pulses throughout Pulm: Lungs CTA & equal bilaterally, no wheezes/rhonchi/crackl es, no distress, on 2 liters/min via nasal cannul (more content not included)... Normal [facility] MAGNESIUM LEVELon 08-06-2024 Magnesium [Mass/Vol] 2.1 mg/dL Normal 1.6-2.4 [facility] Comment on above: Performed By: #### 4 [id number] ####[facility] [address] [place] [address] Garcia Rollins M.D. [id number] PHOSPHORUSon 08-06-2024 Phosphate [Mass/Vol] 2.9 mg/dL Normal 2.8-4.1 [facility] Comment on above: Performed By: #### 4 [id number] #### [facility] [address] [place] [address] Garcia Rollins M.D. [id number] PT/INRon 08-06-2024 INR Coag (PPP) [Relative time] 1.0 {INR} Normal 0.8-1.1 [facility] Comment on above: Order Comment: Kenisha haque the induction phase of oral anticoagulation, the INR may not reflect the anticoagulation status of the patient. Therapeutic ranges for INR's are:Most clinical situations: INR 2.0-3.0Mechanical Prosthetic Valve: INR 2.5-3.5Critical: INR >5.0 Performed By: #### 4 [id number] #### [facility] [address] [place] [address] Garcia Rollins M.D. [id number] PT Coag (PPP) [Time] 13.4 s Normal 11.8-14.3 [facility] Comment on above: Order Comment: Kenisha haque the induction phase of oral anticoagulation, the INR may not reflect the anticoagulation status of the patient. Therapeutic ranges for INR's are:Most clinical situations: INR 2.0-3.0Mechanical Prosthetic Valve: INR 2.5-3.5Critical: INR >5.0 Performed By: #### 4 [id number] #### [facility] [address] [place] [address] Garcia Rollins M.D. [id number] TYPE AND SCREENon 08-06-2024 TYPE AND SCREEN ABORH: O Positive AB SCREEN: Negative EXPIRATION DATE: 08/09/2024 23:59 EST Normal [facility] Comment on above: Performed By: #### 4 6619 ####[facility] [address] [place] [address] Syl Payne MD [id number] [facility] URINALYSISon 08-06-2024 BACTERIA, URINE None Seen Normal None Seen [facility] Comment on above: Order Comment: Injur y/Trauma or Illness?:Illness/Other How long have you had these symptoms (acute/chronic)?:Unknown Reason for exam?:eval PTX History of cancer?:NO Surgeries, chemotherapy, or radiation?:NONCANCEROUS NODULE REMOVAL FROM LEFT LUNG RT TKR, Lt shoulder rotator cuff repair Type of Exam?:Unknown Additional signs and symptoms?:eval PTX Performed By: #### 4 [id number] ####[facility] [address] [place] [address] Garcia Rollins M.D. [id number] BILIRUBIN, URINE Negative Normal Negative [facility] Comment on above: Order Comment: Injur y/Trauma or Illness?:Illness/Other How long have you had these symptoms (acute/chronic)?:Unknown Reason for exam?:eval PTX History of cancer?:NO Surgeries, chemotherapy, or radiation?:NONCANCEROUS NODULE REMOVAL FROM LEFT LUNG RT TKR, Lt shoulder rotator cuff repair Type of Exam?:Unknown Additional signs and symptoms?:eval PTX Performed By: #### 4 6669 ####[facility] [address] [place], [place] [id number] Garcia Rollins M.D. [id number] BLOOD, URINE Negative Normal Negative [facility] Comment on above: Order Comment: Injur y/Trauma or Illness?:Illness/Other How long have you had these symptoms (acute/chronic)?:Unknown Reason for exam?:eval PTX History of cancer?:NO Surgeries, chemotherapy, or radiation?:NONCANCEROUS NODULE REMOVAL FROM LEFT LUNG RT TKR, Lt shoulder rotator cuff repair Type of Exam?:Unknown Additional signs and symptoms?:eval PTX Performed By: #### 4 [id number] ####[facility] [address] [place] [address] Garcia Rollins M.D. [id number] Clarity (U) Clear Normal Clear [facility] Comment on above: Order Comment: Injur y/Trauma or Illness?:Illness/Other How long have you had these symptoms (acute/chronic)?:Unknown Reason for exam?:eval PTX History of cancer?:NO Surgeries, chemotherapy, or radiation?:NONCANCEROUS NODULE REMOVAL FROM LEFT LUNG RT TKR, Lt shoulder rotator cuff repair Type of Exam?:Unknown Additional signs and symptoms?:eval PTX Performed By: #### 4 [id number] ####[facility] [address] [place] [address] Garcia Rollins M.D. [id number] Color (U) Colorless Normal Colorless, Yellow [facility] Comment on above: Order Comment: Injur y/Trauma or Illness?:Illness/Other How long have you had these symptoms (acute/chronic)?:Unknown Reason for exam?:eval PTX History of cancer?:NO Surgeries, chemotherapy, or radiation?:NONCANCEROUS NODULE REMOVAL FROM LEFT LUNG RT TKR, Lt shoulder rotator cuff repair Type of Exam?:Unknown Additional signs and symptoms?:eval PTX Performed By: #### 4 6623 ####[facility] [address] [place] [address] Garcia Rollins M.D. [id number] Glucose Ql (U) Negative Normal Negative [facility] Comment on above: Order Comment: Injur y/Trauma or Illness?:Illness/Other How long have you had these symptoms (acute/chronic)?:Unknown Reason for exam?:eval PTX History of cancer?:NO Surgeries, chemotherapy, or radiation?:NONCANCEROUS NODULE REMOVAL FROM LEFT LUNG RT TKR, Lt shoulder rotator cuff repair Type of Exam?:Unknown Additional signs and symptoms?:eval PTX Performed By: #### 4 [id number] ####[facility] [address] [place] [address] Garcia Rlolins M.D. [id number] Ketones Ql (U) Negative Normal Negative [facility] Comment on above: Order Comment: Injur y/Trauma or Illness?:Illness/Other How long have you had these symptoms (acute/chronic)?:Unknown Reason for exam?:eval PTX History of cancer?:NO Surgeries, chemotherapy, or radiation?:NONCANCEROUS NODULE REMOVAL FROM LEFT LUNG RT TKR, Lt shoulder rotator cuff repair Type of Exam?:Unknown Additional signs and symptoms?:eval PTX Performed By: #### 4 6655 ####[facility] [address] [place] [address] Garcia Rollins M.D. [id number] Leukocyte esterase Test strip Ql (U) Negative Normal Negative [facility] Comment on above: Order Comment: Injur y/Trauma or Illness?:Illness/Other How long have you had these symptoms (acute/chronic)?:Unknown Reason for exam?:eval PTX History of cancer?:NO Surgeries, chemotherapy, or radiation?:NONCANCEROUS NODULE REMOVAL FROM LEFT LUNG RT TKR, Lt shoulder rotator cuff repair Type of Exam?:Unknown Additional signs and symptoms?:eval PTX Performed By: #### 4 6699 ####[facility] [address] [place], [place] [id number] Garcia Rollins M.D. [id number] NITRITE, URINE Negative Normal Negative [facility] Comment on above: Order Comment: Injur y/Trauma or Illness?:Illness/Other How long have you had these symptoms (acute/chronic)?:Unknown Reason for exam?:eval PTX History of cancer?:NO Surgeries, chemotherapy, or radiation?:NONCANCEROUS NODULE REMOVAL FROM LEFT LUNG RT TKR, Lt shoulder rotator cuff repair Type of Exam?:Unknown Additional signs and symptoms?:eval PTX Performed By: #### 4 [id number] ####[facility] [address] [place], [place] [id number] Garcia Rollins M.D. [id number] pH (U) 7.0 [pH] Normal 5.0-7.0 [facility] Comment on above: Order Comment: Injur y/Trauma or Illness?:Illness/Other How long have you had these symptoms (acute/chronic)?:Unknown Reason for exam?:eval PTX History of cancer?:NO Surgeries, chemotherapy, or radiation?:NONCANCEROUS NODULE REMOVAL FROM LEFT LUNG RT TKR, Lt shoulder rotator cuff repair Type of Exam?:Unknown Additional signs and symptoms?:eval PTX Performed By: #### 4 [id number] ####[facility] [address] [place], [place] [id number] Garcia Rollins M.D. [id number] PROTEIN, URINE Negative Normal Negative [facility] Comment on above: Order Comment: Injur y/Trauma or Illness?:Illness/Other How long have you had these symptoms (acute/chronic)?:Unknown Reason for exam?:eval PTX History of cancer?:NO Surgeries, chemotherapy, or radiation?:NONCANCEROUS NODULE REMOVAL FROM LEFT LUNG RT TKR, Lt shoulder rotator cuff repair Type of Exam?:Unknown Additional signs and symptoms?:eval PTX Performed By: #### 4 [id number] ####[facility] [address] [place], [place] [id number] Garcia Rollins M.D. [id number] RBC LM.HPF (Urine sed) [#/Area] 1 /[HPF] Normal 0-3 [facility] Comment on above: Order Comment: Injur y/Trauma or Illness?:Illness/Other How long have you had these symptoms (acute/chronic)?:Unknown Reason for exam?:eval PTX History of cancer?:NO Surgeries, chemotherapy, or radiation?:NONCANCEROUS NODULE REMOVAL FROM LEFT LUNG RT TKR, Lt shoulder rotator cuff repair Type of Exam?:Unknown Additional signs and symptoms?:eval PTX Performed By: #### 4 [id number] ####[facility] [address] [place], [place] [id number] Garcia Rollins M.D. [id number] Specific gravity (U) [Rel density] 1.032 High 1.005-1.025 [facility] Comment on above: Order Comment: Injur y/Trauma or Illness?:Illness/Other How long have you had these symptoms (acute/chronic)?:Unknown Reason for exam?:eval PTX History of cancer?:NO Surgeries, chemotherapy, or radiation?:NONCANCEROUS NODULE REMOVAL FROM LEFT LUNG RT TKR, Lt shoulder rotator cuff repair Type of Exam?:Unknown Additional signs and symptoms?:eval PTX Performed By: #### 4 [id number] ####[facility] [address] [place] [address] Garcia Rollins M.D. [id number] SQUAMOUS EPITHELIAL < Normal 0-4 [facility] Comment on above: Order Comment: Injur y/Trauma or Illness?:Illness/Other How long have you had these symptoms (acute/chronic)?:Unknown Reason for exam?:eval PTX History of cancer?:NO Surgeries, chemotherapy, or radiation?:NONCANCEROUS NODULE REMOVAL FROM LEFT LUNG RT TKR, Lt shoulder rotator cuff repair Type of Exam?:Unknown Additional signs and symptoms?:eval PTX Performed By: #### 4 [id number] ####[facility] [address] [place], [place] [id number] Garcia Rollins M.D. [id number] UROBILINOGEN, URINE <2.0 Normal <2.0 [facility] Comment on above: Order Comment: Injur y/Trauma or Illness?:Illness/Other How long have you had these symptoms (acute/chronic)?:Unknown Reason for exam?:eval PTX History of cancer?:NO Surgeries, chemotherapy, or radiation?:NONCANCEROUS NODULE REMOVAL FROM LEFT LUNG RT TKR, Lt shoulder rotator cuff repair Type of Exam?:Unknown Additional signs and symptoms?:eval PTX Performed By: #### 4 6616 ####[facility] [place] [address] Garcia Rollins M.D. [id number] XR CHEST PA/APon 08-06-2024 XR CHEST PA/AP EXAMINATION: XR CHEST PA/AP 08/06/2024, 12:00 PM HISTORY: ORDERING SYSTEM PROVIDED HISTORY: Eval PTX. TECHNOLOGIST PROVIDED HISTORY: Illness/Other. Reason for exam: Eval PTX. Cancer History: No. Surgery, Radiation History: Noncancerous nodule removal from left lung. Encounter Type: Unknown. Additional signs and symptoms: Eval PTX. ORDERING SYSTEM PROVIDED DIAGNOSIS CODES: S22.41XA Traumatic fracture of ribs of right side with pneumothorax. S27.0XXA Traumatic fracture of ribs of right side with pneumothorax. W19.XXXA Fall, initial encounter. COMPARISON: CT of the chest 08/06/2024. TECHNIQUE: Portable supine chest image was obtained. IMPRESSION: 1. Acute nondisplaced and displaced right-sided rib fracture deformities are identified. Associated right-sided pneumothorax persists with apical visceral separation estimated at 16 mm. Lateral visceral separation is estimated at 9 mm. 2. Prior left-sided pulmonary wedge resection with suture material overlapping left perihilar region. 3. Moderate large of the cardiac silhouette is noted. Central pulmonary arterial prominence may be indicative of pulmonary artery hypertension. 4. Lung volumes overall are diminished resulting in mild central vascular crowding/congestion pattern similar to that seen on prior study. Bibasilar predominant atelectatic changes are asymmetrically greater toward the right. Small bilateral effusions are difficult to entirely exclude. 5. Postsurgical changes involving the lower cervical and lower thoracic spine as well as changes from right-sided rotator cuff repair identified. [employer] Workstation ID: [id number] Dictated by: JOAQUINA COATES on TueAug 06, 2024 1:55:22 PM EDT Transcribed by: VAL FELICIANO on TueAug 06, 2024 2:02:06 PM EDT Finalized by: JOAQUINA COATES on TueAug 06, 2024 6:31:57 PM EDT Normal [facility] Comment on above: Order Comment: Injur y/Trauma or Illness?:Illness/Other How long have you had these symptoms (acute/chronic)?:Unknown Reason for exam?:eval PTX History of cancer?:NO Surgeries, chemotherapy, or radiation?:NONCANCEROUS NODULE REMOVAL FROM LEFT LUNG RT TKR, Lt shoulder rotator cuff repair Type of Exam?:Unknown Additional signs and symptoms?:eval PTX XR SHOULDER RIGHT 2+ VIEWS ( STANDARD)on 08-06-2024 XR SHOULDER RIGHT 2+ VIEWS (STANDARD) EXAMINATION: XR SHOULDER RIGHT 2+ VIEWS (STANDARD) 08/06/2024 12:53 am HISTORY: ORDERING SYSTEM PROVIDED HISTORY: consider fracture, shoulder pain, fall, TECHNOLOGIST PROVIDED HISTORY: Injury/Trauma Reason for exam: consider fracture, shoulder pain, fall Cancer History: NO Surgery, RadiationHistory: NONCANCEROUS NODULE REMOVAL FROM LEFT LUNG Encounter Type: Initial Mechanism of injury: consider fracture, shoulder pain, fall ORDERING SYSTEM PROVIDED DIAGNOSIS CODES: COMPARISON: Chest CT of the same date. IMPRESSION: FINDINGS/ 1. Mild right AC joint and glenohumeral joint osteoarthrosis is present, with small marginal osteophytes. 2. 2 metallic anchors are noted in the greater tuberosity of the right humerus, consistent with prior rotator cuff repair. 3. C4-5 and C7-T1 anterior plate and screw fusion and interbody fusion are suboptimally evaluated. 4. Diffuse osteopenia is suspected. No fracture, malalignment, or other acute bony abnormality is seen. Workstation ID: [id number] Dictated by: CLEO NORMAN on TueAug 06, 2024 1:38:47 AM EDT Transcribed by: CLEO NORMAN on TueAug 06, 2024 1:38:47 AM EDT Finalized by: CLEO NORMAN on TueAug 06, 2024 1:38:47 AM EDT Normal [facility] Comment on above: Order Comment: Injur y/Trauma or Illness?:Injury/Trauma How long have you had these symptoms (acute/chronic)?:Acute Reason for exam?:consider fracture, shoulder pain, fall History of cancer?:NO Surgeries, chemotherapy, or radiation?:NONCANCEROUS NODULE REMOVAL FROM LEFT LUNG RT TKR, Lt shoulder rotator cuff repair Type of Exam?:Initial Mechanism of injury?:consider fracture, shoulder pain, fall BASIC METABOLIC PANELon 10-0 Anion gap [Moles/Vol] 15 mmol/L Normal - [facility] Comment on above: Order Comment: [facility] Laboratory Services has implemented the eGFR calculation approach that does not have a coefficient for race that conforms to the NKF-ASN Task Force Recommendations. Performed By: #### [id number] #### [facility] [address], [place] [address] Rosalie Bearden M.D. [id number] Calcium [Mass/Vol] 9.0 mg/dL Normal 8.4-10.2 [facility] Comment on above: Order Comment: [facility] Laboratory [facility] has implemented the eGFR calculation approach that does not have a coefficient for race that conforms to the NKF-ASN Task Force Recommendations. Performed By: #### [id number] #### [facility] [address], [place] [address] Rosalie Bearden M.D. [id number] Chloride [Moles/Vol] 104 mmol/L Normal 98-108 [facility] Comment on above: Order Comment: [facility] Laboratory [facility] has implemented the eGFR calculation approach that does not have a coefficient for race that conforms to the NKF-ASN Task Force Recommendations. Performed By: #### [id number] #### [facility] [address], [place] Marshall Bearden M.D. [id number] Creatinine [Mass/Vol] 0.75 mg/dL Normal 0.60-1.10 [facility] Comment on above: Order Comment: [facility] Laboratory [facility] has implemented the eGFR calculation approach that does not have a coefficient for race that conforms to the NKF-ASN Task Force Recommendations. Performed By: #### [id number] #### [facility] [address], [place] [address] Rosalie Bearden M.D. [id number] EGFR 85 mL/min/1.73 m2 Normal >=60 [facility] Comment on above: Order Comment: [facility] Laboratory [facility] has implemented the eGFR calculation approach that does not have a coefficient for race that conforms to the NKF-ASN Task Force Recommendations. Result Comment: Felipa mated GFR was calculated using the 2020 CKD-EPI creatinine equation. Performed By: #### [id number] #### [facility] [address], [place] [address] Rosalie Bearden M.D. [id number] Glucose [Mass/Vol] 109 mg/dL High 65-99 [facility] Comment on above: Order Comment: [facility] Laboratory [facility] has implemented the eGFR calculation approach that does not have a coefficient for race that conforms to the NKF-ASN Task Force Recommendations. Performed By: #### [id number] #### [facility] [address], [place] [address] Rosalie Bearden M.D. [id number] HCO3 (Bld) [Moles/Vol] 31 mmol/L Normal 21-32 [facility] Comment on above: Order Comment: [facility] Laboratory [facility] has implemented the eGFR calculation approach that does not have a coefficient for race that conforms to the NKF-ASN Task Force Recommendations. Performed By: #### [id number] #### [facility] [address], [place] [address] Rosalie Bearden M.D. [id number] Potassium [Moles/Vol] 3.4 mmol/L Low 3.5-5.1 [facility] Comment on above: Order Comment: [facility] Laboratory [facility] has implemented the eGFR calculation approach that does not have a coefficient for race that conforms to the NKF-ASN Task Force Recommendations. Performed By: #### 4 [id number] #### [facility] [address], [place] [address] Rosalie Bearden M.D. [id number] Sodium [Moles/Vol] 147 mmol/L High 135-145 [facility] Comment on above: Order Comment: [facility] Laboratory [facility] has implemented the eGFR calculation approach that does not have a coefficient for race that conforms to the NKF-ASN Task Force Recommendations. Performed By: #### 4 [id number] #### [facility] [address], [place] [address] Rosalie Bearden M.D. [id number] Urea nitrogen [Mass/Vol] 15 mg/dL Normal 8-25 [facility] Comment on above: Order Comment: [facility] Laboratory [facility] has implemented the eGFR calculation approach that does not have a coefficient for race that conforms to the NKF-ASN Task Force Recommendations. Performed By: #### 4 [id number] #### [facility] [address] [place] [address] Rosalie Bearden M.D. [id number] Urea nitrogen/Creatinine [Mass ratio] 20.0 mg/mg Normal 10.0-20.0 [facility] Comment on above: Order Comment: [facility] Laboratory Services has implemented the eGFR calculation approach that does not have a coefficient for race that conforms to the NKF-ASN Task Force Recommendations. Performed By: #### [id number] #### [facility] [address] [place] [address] Rosalie Bearden M.D. [id number] CBC WITH AUTO DIFFERENTIALon 08-05-2024 AUTO NRBC 0.0 % Normal [facility] Comment on above: Performed By: #### L [id number] #### [facility] [address] [place] [address] Rosalie Bearden M.D. [id number] AUTO NRBC ABS COUNT 0.00 K/mcL Normal 0.00-0.00 [facility] Comment on above: Performed By: #### L [id number] #### [facility] [address] [place] [address] Rosalie Bearden M.D. [id number] BASOPHILS ABSOLUTE COUNT 0.03 K/mcL Normal 0.00-0.30 [facility] Comment on above: Performed By: #### L [id number] #### [facility] [address] [place] [address] Rosalie Bearden M.D. [id number] Basophils/100 WBC (Bld) 0.4 % Normal [facility] Comment on above: Performed By: #### L [id number] #### [facility] [address] [place] [address] Rosalie Bearden M.D. [id number] Eosinophils (Bld) [#/Vol] 0.20 10*3/uL Normal 0.00-0.50 [facility] Comment on above: Performed By: #### L [id number] #### [facility] [address] [place] [address] Rosalie Bearden M.D. [id number] Eosinophils/100 WBC (Bld) 2.7 % Normal [facility] Comment on above: Performed By: #### L [id number] #### [facility] [address] [place] [address] Rosalie Bearden M.D. [id number] Erythrocyte distribution width (RBC) [Ratio] 13.4 % Normal 11.6-14.8 [facility] Comment on above: Performed By: #### L [id number] #### [facility] [address] [place] [address] Rosalie Bearden M.D. [id number] Hematocrit (Bld) [Volume fraction] 42.8 % Normal 36.0-46.0 [facility] Comment on above: Performed By: #### L [id number] #### [facility] [address] [place] [address] Rosalie Bearden M.D. [id number] Hemoglobin (Bld) [Mass/Vol] 13.8 g/dL Normal 12.0-16.0 [facility] Comment on above: Performed By: #### L [id number] #### [facility] [address] [place] [address] Rosalie Bearden M.D. [id number] IG ABSOLUTE 0.04 K/mcL Normal 0.00-0.30 [facility] Comment on above: Performed By: #### L [id number] #### [facility] [address] [place] [address] Rosalie Bearden M.D. [id number] IG PERCENT 0.50 % Normal [facility] Comment on above: Result Comment: The IG parameter is the percentage of metamyelocytes, myelocytes and promyelocytes. An immature granulocyte count (IG) of 1% or more suggests the possibility of infection, an IG count of 3% is very likely related to an infection. Performed By: #### L [id number] #### [facility] [address] [place] [address] Rosalie Bearden M.D. [id number] Lymphocytes (Bld) [#/Vol] 2.08 10*3/uL Normal 0.90-4.00 [facility] Comment on above: Performed By: #### L [id number] #### [facility] [address], [place] [address] Rosalie Bearden M.D. [id number] Lymphocytes/100 WBC (Bld) 28.5 % Normal [facility] Comment on above: Performed By: #### L [id number] #### [facility] [address], [place] [address] Rosalie Bearden M.D. [id number] MCH (RBC) [Entitic mass] 27.7 pg Normal 26.0-34.0 [facility] Comment on above: Performed By: #### L [id number] #### [facility] [address] [place] [address] Rosalie Bearden M.D. [id number] MCV (RBC) [Entitic vol] 85.8 fL Normal 80.0-100.0 [facility] Comment on above: Performed By: #### L [id number] #### [facility] [address] [place] [address] Rosalie Bearden M.D. [id number] MEAN CORPUSCULAR HEMOGLOBIN CONC 32.2 g/dL Normal 31.0-37.0 [facility] Comment on above: Performed By: #### L [id number] #### [facility] [address] [place] [address] Rosalie Bearden M.D. [id number] Monocytes (Bld) [#/Vol] 0.78 10*3/uL Normal 0.30-0.90 [facility] Comment on above: Performed By: #### L [id number] #### [facility] [address], [place] [address] Rosalie Bearden M.D. [id number] Monocytes/100 WBC (Bld) 10.7 % Normal [facility] Comment on above: Performed By: #### L [id number] #### [facility] [address], [place] [address] Rosalie Bearden M.D. [id number] NEUTROPHILS ABSOLUTE COUNT 4.16 K/mcL Normal 1.70-7.00 [facility] Comment on above: Performed By: #### L [id number] #### [facility] [address], [place] [address] Rosalie Bearden M.D. [id number] Neutrophils/100 WBC (Bld) 57.2 % Normal [facility] Comment on above: Performed By: #### L [id number] #### [facility] [address], [place] [address] Rosalie Bearden M.D. [id number] Platelet mean volume (Bld) [Entitic vol] 12.7 fL High 9.4-12.4 [facility] Comment on above: Performed By: #### L [id number] #### [facility] [address], [place] [address] Rosalie Bearden M.D. [id number] Platelets (Bld) [#/Vol] 164 10*3/uL Normal 150-400 [facility] Comment on above: Performed By: #### L [id number] #### [facility] [address], [place] [address] Rosalie Bearden M.D. [id number] RBC (Bld) [#/Vol] 4.99 10*6/uL Normal 4.00-5.20 [facility] Comment on above: Performed By: #### L [id number] #### [facility] [address], [place] [address] Rosalie Bearden M.D. [id number] WBC (Bld) [#/Vol] 7.29 10*3/uL Normal 4.50-11.00 [facility] Comment on above: Performed By: #### L [id number] #### [facility] [address], [place] [address] Rosalie Bearden M.D. [id number] NT PRO BNPon 08-05-2024 Natriuretic peptide B (Bld) [Mass/Vol] 219 pg/mL Normal 0-300 [facility] Comment on above: Order Comment: Pride Study Cut-offs Rule In: < /= 50 Years >450 pg/mL 51 Years - 75 Years >900 pg/mL 76 Years - 99 Years >1800 pg/mL Rule Out: All patients <300 pg/mL Performed By: #### 4 [id number] #### [facility] [address], [place] [address] Rosalie Bearden M.D. [id number] TROPONINon 08-05-2024 BASELINE TROPONIN T NG/L < Normal <=14 [facility] Comment on above: Performed By: #### 4 [id number] #### [facility] [address], [place] [address] Rosalie Bearden M.D. [id number] TROPONIN T INTERPRETATION Normal Normal [facility] Comment on above: Performed By: #### 4 [id number] #### [facility] [address], [place] [address] Rosalie Bearden M.D. [id number] MR/POSTOP.ANE 07-13-2024 MR[facility]POSTOP[facility] Medical Records Department [address] [place] [address] Anesthesia Postop Eval I 07/13/24924 MR#: [id number] Acct: [id number] Name: MATTHEW PEREZ Rep #: [id number] : 1955 69 From: Lucie Cardoza PCP: HARMONY GEE Status:REG SDC Y Race: C Location: [place] [address] Anesthesia: Postop Eval I Current Vital Signs Temperature: 97.7 F Pulse Rate: 79 Blood Pressure: 136/57 Respiratory Rate: 16 Pulse Ox: 97 Oxygen Delivery Method: Room Air Assessment Airway patent: Yes Spontaneous unlabored respirations: Yes Mental status: Awake and Calm nausea: No Vomiting: No Anesthesia Complication: No Fluid Hydration Crystalloid volume administer (ml): 1,100 Total IV fluid infused: 1,100 Progress Note Anesthesia document: Postop Eval 1 completed: Yes 07/13/24932 Date Lucie Bowlesigner Signature: Date CC: Signed Normal [facility] MR/[id number] 07-13-2024 MR/POSTOPAN2 [facility] Medical Records Department [address] [place] [address] Anesthesia Postop Eval II 07/13/24 1543 MR#: [id number] Acct: [id number] Name: MATTHEW PEREZ Rep #: [id number] : 1955 69 From: Abelino Roy MD PCP: HARMONY GEE [place] [facility] [place] Race: C [place] [facility] [place]esthesia Postop Eval I Sum Postop Eval Completion status Anesthesia document: Postop Eval 1 completed: Yes Anesthesia Postop Eval I Summary Anesthesia Postop Eval I Summary: Anesthesia Postop Eval I: Assessment Summary Airway patent Yes 07/13/24 09:33 INSPECTING AND TESTING LEAD HAND.GDOTT Spontaneous unlabored Yes 07/13/24 09:33 INSPECTING AND TESTING LEAD HAND.GDOTT respirations Mental status Awake,Calm 07/13/24 09:33 INSPECTING AND TESTING LEAD HAND.GDOTT nausea No 07/13/24 09:33 INSPECTING AND TESTING LEAD HAND.GDOTT Vomiting No 07/13/24 09:33 INSPECTING AND TESTING LEAD HAND.GDOTT Anesthesia Postop Eval I: Fluid Summary Crystalloid volume administer 1,100 07/13/24 09:33 INSPECTING AND TESTING LEAD HAND.GDOTT (ml) Colloids volume administered ( ml) Blood Product volume administered (ml) Total IV fluid infused 1,100 07/13/24 09:33 INSPECTING AND TESTING LEAD HAND.GDOTT Anesthesia Postop Eval I: Summary Notes Anesthesia Complication No 07/13/24 09:33 INSPECTING AND TESTING LEAD HAND.GDOTT Anesthesia Complication Comment: Post-operative progress note Anesthesia: Postop Eval II Evaluation Mental status: Awake Pain Level: 0 nausea: No Vomiting: No 07/13/24 1543 Date Abelino Roy MD Cosigner Signature: Date CC: Signed [facility] Spine 1 View Any Levelon Spine 1 View Any Level [facility] Imaging Services [address] [address] Spine 1 View Any Level MR#: [id number] Acct: [id number] Name: MATTHEW PEREZ Rep #: [id number] : 1955 F 69 From: Sean bae MD PCP: HARMONY GEE Status[place] [facility] [place]: Spine 1 View Any Level Date of Exam: 07/13/24 Exam# [id number] Ordering Dr: Con Farr MD [id number] PROCEDURE: Pain pump insertion. DATE OF EXAMINATION: July 13, 2024 INDICATION: Female, 69 years old. Chronic back pain. FLUOROSCOPY TIME (if supplied): (5.8 seconds) minutes/seconds. 2.7 mGy. One image was submitted. RAD/Spine 1 View Any Level IMPRESSION: Intraoperative fluoroscopic services provided for implantable pain pump placement. Electronically Signed: Sean Galvan MD at 8:50 EDT Reading Location ID and State: [facility] / [place] , Service support , CC: HARMONY GEE; Dr. Con Farr MD Squirrel Worker: Signed Normal [facility] CNPN Telephone ([address]) MATTHEW PEREZ ([id number]) 1955 F Date Time Provider Department 04/11/24 CLAUDIA LI During your visit today, we recorded the following information about you: Rosario Marley RN 04/11/2024 10:49 AM Signed Faxed referral received with AMIRAH from PCP - scanned into chart Please assist with scheduling OV with Dr. Li. Thank you! Scarlett Ng 04/11/2024 2:33 PM Signed LVM for patient to schedule [facility] visit with Dr Li. Diagnosis is nausea. Dr Li is booking out into September Allergies As of Date: 04/11/2024 Noted Allergy Reaction DULOXETINE 09/04/2018 8 - GI Upset Comments: Nausea NSAIDS (NON-STEROIDAL ANTI-INFLAM*12/30/2020 8 - GI Upset 11 - Vomiting IBUPROFEN 04/15/2019 8 - GI Upset 11 - Vomiting PREGABALIN 11/08/2017 14 - Other: See Comments Comments: Other reaction(s): Other (See Comments) nightmares nightmares METFORMIN 10/28/2017 8 - GI Upset Comments: Other reaction(s): GI Intolerance Date Reviewed: 04/22/2023 Reviewed by: Jose R Eugene MA - Fully Assessed Reason for Visit: Appointment [186] Prescriptions as of 04/11/2024 - QVAR REDIHALER 40 mcg/actuation inhaler - albuterol HFA (PROVENTIL HFA, VENTOLIN HFA) 90 mcg/actuation inhaler Inhale 2 Puffs as instructed every 4 hours as needed. - celecoxib (CELEBREX) 200 mg capsule - diclofenac (VOLTAREN) 1 % topical gel Apply to affected area. - ipratropium (ATROVENT) 0.02 % nebulizer solution Inhale 0.5 mg as instructed. - HYDROCODONE-ACETAMINOP HEN ORAL Take by mouth every 6 hours as needed. - Melatonin 5 mg cap Take 5 mg by mouth. - montelukast (SINGULAIR) 10 mg tablet - naloxone 4 mg/actuation nasal spray (NARCAN) Narcan 4 mg/actuation nasal spray - oxyCODONE-acetaminophe n (PERCOCET 10) 10-325 mg tablet - furosemide (LASIX) 20 mg tablet Take by mouth q 24 HR. - rOPINIRole (REQUIP) 1 mg tablet Take 2 tablets by mouth q 24 HR. - sertraline (ZOLOFT) 100 mg tablet Take by mouth q 24 HR. - SUMAtriptan (IMITREX) 100 mg tablet Take 100 mg by mouth. - tiotropium (SPIRIVA) 18 mcg inhalation capsule Inhale 18 mcg as instructed q 24 HR. - traZODone (DESYREL) 50 mg tablet Take 50 mg by mouth. - ascorbic acid(VITAMIN C 500 MG TAB) Take one(1) tablet daily. - butalb/acetaminophen/c affeine(FIORICET 50 MG-325 MG-40 MG TAB) as necessary - lisinopril(ZESTRIL 20 MG TAB) Take one(1) tablet two(2) times daily. - SOTALOL 80 MG TAB Take one(1) tablet three times daily. - amlodipine besylate(NORVASC 10 MG TAB) Take one(1) tablet daily. - CLONAZEPAM 1 MG TAB Take one(1) tablet daily at bedtime. Problem List As Of Date 04/11/2024 Noted Resolved Intermittent claudication (HCC) [I73.9] 04/22/2023 Encounter Status:Closed by ROSARIO MARLEY on 04/11/24 Normal [facility] CBC panel Auto (Bld)on 10-27 Erythrocyte distribution width (RBC) [Entitic vol] 15.2 % High 11.6 - 14.8 % [facility] Hematocrit (Bld) [Volume fraction] 38.9 % 36.0 - 46.0 % [facility] Hemoglobin (Bld) [Mass/Vol] 12.3 g/dL 12.0 - 16.0 g/dL [facility] Interpretation and review of laboratory results Abnormal [facility] MCH (RBC) [Entitic mass] 24.8 pg Low 26.0 - 34.0 pg [facility] MCHC (RBC) [Mass/Vol] 31.6 g/dL 31.0 - 37.0 g/dL [facility] MCV (RBC) [Entitic vol] 78.6 fL Low 80.0 - 100.0 fL [facility] Nucleated RBC (Bld) [#/Vol] 0.00 10*3/uL [facility] Nucleated RBC/100 WBC (Bld) [Ratio] 0.0 % [facility] Platelet mean volume (Bld) [Entitic vol] 13.1 fL High 9.4 - 12.4 fL [facility] Platelets (Bld) [#/Vol] 169 10*3/uL [facility] RBC (Bld) [#/Vol] 4.95 10*6/uL [facility] WBC (Bld) [#/Vol] 8.50 10*3/uL [facility] Comprehensive metabolic 2000 panelOrdered By: Kalyan Jones on 10-27-2023 Albumin [Mass/Vol] 3.6 g/dL 3.2 - 5.2 g/dL [facility] ALP [Catalytic activity/Vol] 109 U/L 40 - 150 U/L [facility] ALT [Catalytic activity/Vol] 5 U/L 0-35 U/L [facility] Anion gap [Moles/Vol] 13 mmol/L 10 - 2 0 mmol/L [facility] AST [Catalytic activity/Vol] 20 U/L 0-35 U/L [facility] Bilirubin [Mass/Vol] 0.6 mg/dL 0.0 - 1 .3 mg/dL [facility] Calcium [Mass/Vol] 8.8 mg/dL 8.4 - 10. 2 mg/dL [facility] Chloride [Moles/Vol] 102 mmol/L 98 - 10 8 mmol/L [facility] Creatinine [Mass/Vol] 0.50 mg/dL Low 0.60 - 1.20 mg/dL [facility] GFR/1.73 sq M.predicted CKD-EPI (S/P/Bld) [Vol rate/Area] 101 - PINF [facility] Comment on above: Estimated GFR was ca lculated using the 2020 CKD-EPI creatinine equation. Glucose [Mass/Vol] 122 mg/dL High 65 - 99 mg/dL [facility] HCO3 [Moles/Vol] 27 mmol/L 21 - 32 mmol/L [facility] Interpretation and review of laboratory results Abnormal [facility] Potassium [Moles/Vol] 4.0 mmol/L 3.5 - 5.1 mmol/L [facility] Protein [Mass/Vol] 7.0 g/dL 6.0 - 8.0 g/dL [facility] Sodium [Moles/Vol] 138 mmol/L 135 - 145 mmol/L [facility] Urea nitrogen [Mass/Vol] 13 mg/dL 8 - 25 mg/dL [facility] Urea nitrogen/Creatinine [Mass ratio] 26.0 mg/mg High 10.0 - 20.0 [facility] Labor[facility] Services has implemented the eGFR calculation approach that does not have a coefficient for race that conforms to the NKF-ASN Task Force Recommendations. [facility] APTTon 10-26-2023 aPTT Coag (Bld) [Time] 26 s [facility] Basic metabolic 2000 panelon 10-26-2023 Anion gap [Moles/Vol] 15 mmol/L 10 - 2 0 mmol/L [facility] Calcium [Mass/Vol] 9.3 mg/dL 8.4 - 10. 2 mg/dL [facility] Chloride [Moles/Vol] 102 mmol/L 98 - 10 8 mmol/L [facility] Creatinine [Mass/Vol] 0.78 mg/dL 0.60 - 1.20 mg/dL [facility] GFR/1.73 sq M.predicted CKD-EPI (S/P/Bld) [Vol rate/Area] 82 - PINF [facility] Comment on above: Estimated GFR was ca lculated using the 2020 CKD-EPI creatinine equation. Glucose [Mass/Vol] 107 mg/dL High 65 - 99 mg/dL [facility] HCO3 [Moles/Vol] 29 mmol/L 21 - 32 mmol/L [facility] Interpretation and review of laboratory results Abnormal [facility] Potassium [Moles/Vol] 4.0 mmol/L 3.5 - 5.1 mmol/L [facility] Sodium [Moles/Vol] 142 mmol/L 135 - 145 mmol/L [facility] Urea nitrogen [Mass/Vol] 25 mg/dL 8 - 25 mg/dL [facility] Urea nitrogen/Creatinine [Mass ratio] 32.1 mg/mg High 10.0 - 20.0 [facility] Services has implemented the eGFR calculation approach that does not have a coefficient for race that conforms to the NKF-ASN Task Force Recommendations. [facility] CBC Auto Differentialon 10-01 Basophils (Bld) [#/Vol] 0.04 10*3/uL [facility] Basophils/100 WBC (Bld) 0.4 % [facility] Eosinophils (Bld) [#/Vol] 0.27 10*3/uL [facility] Eosinophils/100 WBC (Bld) 2.9 % [facility] Erythrocyte distribution width (RBC) [Entitic vol] 15.0 % High 11.6 - 14.8 % [facility] Hematocrit (Bld) [Volume fraction] 39.7 % 36.0 - 46.0 % [facility] Hemoglobin (Bld) [Mass/Vol] 12.6 g/dL 12.0 - 16.0 g/dL [facility] Immature granulocytes (Bld) [#/Vol] 0.04 10*3/uL [facility] Immature granulocytes/100 WBC (Bld) 0.40 % [facility] Comment on above: The IG parameter is the percentage of metamyelocytes, myelocytes and promyelocytes. An immature granulocyte count (IG) of 1% or more suggests the possibility of infection, an IG count of 3% is very likely related to an infection. Interpretation and review of laboratory results Abnormal [facility] Lymphocytes (Bld) [#/Vol] 1.96 10*3/uL [facility] Lymphocytes/100 WBC (Bld) 21.1 % [facility] MCH (RBC) [Entitic mass] 24.9 pg Low 26.0 - 34.0 pg [facility] MCHC (RBC) [Mass/Vol] 31.7 g/dL 31.0 - 37.0 g/dL [facility] MCV (RBC) [Entitic vol] 78.3 fL Low 80.0 - 100.0 fL [facility] Monocytes (Bld) [#/Vol] 0.80 10*3/uL [facility] Monocytes/100 WBC (Bld) 8.6 % [facility] Neutrophils (Bld) [#/Vol] 6.18 10*3/uL [facility] Neutrophils/100 WBC (Bld) 66.6 % [facility] Nucleated RBC (Bld) [#/Vol] 0.00 10*3/uL [facility] [facility] Nucle[facility] RBC/100 WBC (Bld) [Ratio] 0.0 % [facility] Platelets (Bld) [#/Vol] 206 10*3/uL [facility] RBC (Bld) [#/Vol] 5.07 10*6/uL [facility] WBC (Bld) [#/Vol] 9.29 10*3/uL [facility] CT Cervical spine WO shakabetty ton 10-26-2023 1. No acute fracture or subluxation. 2. Postsurgical changes from C4-T1. Alignment is satisfactory. Workstation ID: [id number] [employer] EXAMINATION: CT CERVICAL SPINE WITHOUT CONTRAST 3D HISTORY: ORDERING SYSTEM PROVIDED HISTORY: fall, TECHNOLOGIST PROVIDED HISTORY: Injury/Trauma Reason for exam: Pt states losing her balance and fell onto the toilet. No Neck pain, states back and rib pain. Pt states hitting her ribs on the toilet right side ribs painful to touch. Also states leg spasms. Encounter Type: Initial Mechanism of injury: Pt states losing her balance and fell onto the toilet. No Neck pain, states back and rib pain. Pt states hitting her ribs on the toilet right side ribs painful to touch. Also states leg spasms. ORDERING SYSTEM PROVIDED DIAGNOSIS CODES: COMPARISON: CT cervical spine 03/31/2022 TECHNIQUE: Unenhanced helical imaging of the cervical spine to the upper thoracic spine are obtained. Axial, coronal, and sagittal reconstructions are submitted. Dose reduction techniques were achieved by using: automated exposure control and/or adjustment of mA and /or kV according to patient size and/or use of iterative reconstruction technique. FINDINGS: The predental space is normal. The cervical occipital junction is normal. There is anterior fusion plate and screws at C4-5. There is anterior fusion plate and screws at C7-T1. There is interbody cage device at C7-T1. Alignment is satisfactory. There is no acute fracture or subluxation. There are no jumped, perched, or locked facets identified. Bone mineralization is normal. Vertebral body heights are normal. There is disc space narrowing at C4-5 and C5-C6, C6-7 and C7-T1. There is disc spacer device at C5-6 C6-7 and C7-T1. The prevertebral soft tissues are within normal limits. No central canal stenosis. The visualized airway is patent. The imaged lung apices are clear. The soft tissues of the neck and visualized superior mediastinum are unremarkable. [facility] Nafisa Ramirez MD - 10/26/2023 EXAMINATION: CT CERVICAL SPINE WITHOUT CONTRAST 3D HISTORY: ORDERING SYSTEM PROVIDED HISTORY: fall, TECHNOLOGIST PROVIDED HISTORY: Injury/Trauma Reason for exam: Pt states losing her balance and fell onto the toilet. No Neck pain, states back and rib pain. Pt states hitting her ribs on the toilet right side ribs painful to touch. Also states leg spasms. Encounter Type: Initial Mechanism of injury: Pt states losing her balance and fell onto the toilet. No Neck pain, states back and rib pain. Pt states hitting her ribs on the toilet right side ribs painful to touch. Also states leg spasms. ORDERING SYSTEM PROVIDED DIAGNOSIS CODES: COMPARISON: CT cervical spine 03/31/2022 TECHNIQUE: Unenhanced helical imaging of the cervical spine to the upper thoracic spine are obtained. Axial, coronal, and sagittal reconstructions are submitted. Dose reduction techniques were achieved by using: automated exposure control and/or adjustment of mA and /or kV according to patient size and/or use of iterative reconstruction technique. FINDINGS: The predental space is normal. The cervical occipital junction is normal. There is anterior fusion plate and screws at C4-5. There is anterior fusion plate and screws at C7-T1. There is interbody cage device at C7-T1. Alignment is satisfactory. There is no acute fracture or subluxation. There are no jumped, perched, or locked facets identified. Bone mineralization is normal. Vertebral body heights are normal. There is disc space narrowing at C4-5 and C5-C6, C6-7 and C7-T1. There is disc spacer device at C5-6 C6-7 and C7-T1. The prevertebral soft tissues are within normal limits. No central canal stenosis. The visualized airway is patent. The imaged lung apices are clear. The soft tissues of the neck and visualized superior mediastinum are unremarkable. IMPRESSION: 1. No acute fracture or subluxation. 2. Postsurgical changes from C4-T1. Alignment is satisfactory. Workstation ID: [id number] [facility] Radiology Study observation (narrative) [facility] CT Cervical spine WO contras tOrdered By: Nafisa Ramirez on 10-26-2023 [facility] Work Phone: CT Chest and Abdomen and Pel vis W contrast Watson 10-26-2023 Radiology Study observation (narrative) [facility] CT Head WO contraston [address] evidence of an acute intracranial hemorrhage or acute calvarial fracture. Workstation ID: [id number] [employer]y Couple [facility] EXAMINATION: CT HEAD OR BRAIN WITHOUT CONTRAST HISTORY: ORDERING SYSTEM PROVIDED HISTORY: Head trauma, minor (Age >= 65y), TECHNOLOGIST PROVIDED HISTORY: Injury/Trauma Reason for exam: Pt states losing her balance and fell onto the toilet. No Neck pain, states back and rib pain. Pt states hitting her ribs on the toilet right side ribs painful to touch. Also states leg spasms. Encounter Type: Initial Mechanism of injury: Pt states losing her balance and fell onto the toilet. No Neck pain, states back and rib pain. Pt states hitting her ribs on the toilet right side ribs painful to touch. Also states leg spasms. ORDERING SYSTEM PROVIDED DIAGNOSIS CODES: COMPARISON: MRI brain from 06/09/2019 TECHNIQUE: CT examination of the head without IV contrast. Dose reduction techniques were achieved by using automated exposure control and/or adjustment of mA and/or kV according to patient size and/or use of iterative reconstruction technique. FINDINGS: No acute intracranial hemorrhage, extra-axial fluid collection, midline shift or mass effect is seen. No space-occupying lesion is demonstrated. There is no evidence of hydrocephalus or an acute ischemic event. Mucosal thickening is present within the paranasal sinuses. The mastoids are well aerated. Bone windows reveal no evidence of an acute calvarial fracture. [facility] - 10/26/[facility]23 EXAMINATION: CT HEAD OR BRAIN WITHOUT CONTRAST HISTORY: ORDERING SYSTEM PROVIDED HISTORY: Head trauma, minor (Age >= 65y), TECHNOLOGIST PROVIDED HISTORY: Injury/Trauma Reason for exam: Pt states losing her balance and fell onto the toilet. No Neck pain, states back and rib pain. Pt states hitting her ribs on the toilet right side ribs painful to touch. Also states leg spasms. Encounter Type: Initial Mechanism of injury: Pt states losing her balance and fell onto the toilet. No Neck pain, states back and rib pain. Pt states hitting her ribs on the toilet right side ribs painful to touch. Also states leg spasms. ORDERING SYSTEM PROVIDED DIAGNOSIS CODES: COMPARISON: MRI brain from 06/09/2019 TECHNIQUE: CT examination of the head without IV contrast. Dose reduction techniques were achieved by using automated exposure control and/or adjustment of mA and/or kV according to patient size and/or use of iterative reconstruction technique. FINDINGS: No acute intracranial hemorrhage, extra-axial fluid collection, midline shift or mass effect is seen. No space-occupying lesion is demonstrated. There is no evidence of hydrocephalus or an acute ischemic event. Mucosal thickening is present within the paranasal sinuses. The mastoids are well aerated. Bone windows reveal no evidence of an acute calvarial fracture. IMPRESSION: No CT evidence of an acute intracranial hemorrhage or acute calvarial fracture. Workstation ID: [id number] [facility] Radiology Study observation (narrative) [facility] CT Head WO contrastOrdered B y: Jared Jiménez on 10-26-2023 [facility] Work Phone: CT Thoracic and lumbar spine W contrast Watson 10-26-2023 Radiology Study observation (narrative) [facility] EKGon 10-26-2023 [facility] EKG 12-leadon 10-26-2023 Atrial Rate 101 BPM [facility] P Chandler 65 degrees [facility] P-R Interval 162 ms [facility] Q-T Interval 382 ms [facility] QRS Duration 114 ms [facility] QTC Calculation (Bezet) 495 ms [facility] R Chandler -68 degrees [facility] T Chandler 73 degrees [facility] Ventricular Rate 101 BPM [facility] th Sinus tachycardia Left axis deviation Minimal voltage criteria for LVH, may be normal variant ( Roebrt product ) Septal infarct , age undetermined Abnormal ECG Confirmed by Jr AREVALO, Navas ([id number]) on 10/26/2023 1:54:57 PM MUSE [facility] Hepatic function 2000 panelo n 10-26-2023 Albumin [Mass/Vol] 4.2 g/dL 3.2 - 5.2 g/dL [facility] ALP [Catalytic activity/Vol] 132 U/L 40 - 150 U/L [facility] ALT [Catalytic activity/Vol] 11 U/L 0-35 U/L [facility] AST [Catalytic activity/Vol] 21 U/L 0-35 U/L [facility] Bilirubin [Mass/Vol] 0.4 mg/dL 0.0 - 1 .3 mg/dL [facility] Bilirubin.conjugated [Mass/Vol] mg/dL 0.0 - 0.4 mg/dL [facility] Interpretation and review of laboratory results Normal [facility] Protein [Mass/Vol] 7.8 g/dL 6.0 - 8.0 g/dL [facility] INR Coag (PPP) [Relative raza e]on 10-26-2023 PT Coag (PPP) [Time] 12.1 s [facility] During the induction phase of oral anticoagulation, the INR may not reflect the anticoagulation status of the patient. Therapeutic ranges for INR's are: Most clinical situations: INR 2.0-3.0 Mechanical Prosthetic Valve: INR 2.5-3.5 Critical: INR >5.0 [facility] No Panel Informationon 10-26 1. No acute traumatic abnormality in the chest, abdomen, or pelvis. 2. No acute fracture in the thoracic and lumbar spine. Remote mild multilevel compression deformities in the thoracic spine. Posterior instrumented fusion spans lower thoracic-sacral spine, without appreciable hardware complication. Workstation ID: [id number] Fliptop EXAMINATION: CT CHEST ABDOMEN PELVIS WITH IV CONTRAST ONLY; CT THORACIC AND LUMBAR SPINE RECONSTRUCTED WITH 3D HISTORY: ORDERING SYSTEM PROVIDED HISTORY: right chest/abd pain, fall, TECHNOLOGIST PROVIDED HISTORY: Injury/Trauma Reason for exam: Pt states losing her balance and fell onto the toilet. No Neck pain, states back and rib pain. Pt states hitting her ribs on the toilet right side ribs painful to touch. Also states leg spasms. Encounter Type: Initial Mechanism of injury: Pt states losing her balance and fell onto the toilet. No Neck pain, states back and rib pain. Pt states hitting her ribs on the toilet right side ribs painful to touch. Also states leg spasms. ORDERING SYSTEM PROVIDED DIAGNOSIS CODES: COMPARISON: 08/21/2023. 09/26/2023. 10/18/2023. TECHNIQUE: Axial CT images were obtained of the chest, abdomen and pelvis with intravenous contrast. Sagittal and coronal reformatted images were also obtained. Reconstructed images of the thoracic and lumbar spine are also submitted for interpretation. Dose reduction techniques were achieved by using automated exposure control and/or adjustment of mA and/or kV according to patient size and/or use of iterative reconstruction technique. CONTRAST: IOPAMIDOL 370 MG IODINE/ML (76 %) INTRAVENOUS SOLUTION - 75 mL, FINDINGS: CHEST: Mediastinum/lymph nodes: Thyroid gland is normal. Trachea and central airways are patent. Thoracic aorta is normal caliber. Heart is normal in size without pericardial effusion. No mediastinal or hilar lymphadenopathy. No axillary lymphadenopathy. Lungs and pleura: No pneumothorax. Small right pleural effusion. Lungs are clear. Mild bibasilar subsegmental atelectasis. Bones and soft tissues: No acute abnormality. Partially seen multilevel anterior cervical discectomy and fusion hardware, without appreciable complication. Remote mild superior endplate compression deformities at T5, T7, T8. Mild inferior endplate compression deformity at T9. Remote compression deformity at T12 superior endplate. Posterior instrumented fusion spans the lower thoracic spine to the upper sacral spine, without appreciable hardware complication. ABDOMEN: Liver: Normal size. Normal contour... No focal lesion. . Bile ducts: Normal caliber. Gallbladder: Prior cholecystectomy. Pancreas: Normal. Spleen: Normal. Adrenals: Normal. Kidneys/ ureters: No hydronephrosis or nephrolithiasis.. Bowel and peritoneum: Normal caliber. No acute inflammation. No free intraperitoneal air. No ascites or fluid collection. Normal appendix. Vessels: Normal. Lymph nodes: No enlarged lymph nodes. Reproductive organs: No pelvic masses. Bladder: Normal. Soft tissues: Normal. Osseous structures: No acute abnormality. Partially seen multilevel anterior cervical discectomy and fusion hardware, without appreciable complication. Remote compression deformity at T12 superior endplate. Posterior instrumented fusion spans the lower thoracic spine to the upper sacral spine, without appreciable hardware complication. Total right hip arthroplasty without appreciable hardware complication. [employer] [facility] Rudolph Tilley MD - 10/26/2023 EXAMINATION: CT CHEST ABDOMEN PELVIS WITH IV CONTRAST ONLY; CT THORACIC AND LUMBAR SPINE RECONSTRUCTED WITH 3D HISTORY: ORDERING SYSTEM PROVIDED HISTORY: right chest/abd pain, fall, TECHNOLOGIST PROVIDED HISTORY: Injury/Trauma Reason for exam: Pt states losing her balance and fell onto the toilet. No Neck pain, states back and rib pain. Pt states hitting her ribs on the toilet right side ribs painful to touch. Also states leg spasms. Encounter Type: Initial Mechanism of injury: Pt states losing her balance and fell onto the toilet. No Neck pain, states back and rib pain. Pt states hitting her ribs on the toilet right side ribs painful to touch. Also states leg spasms. ORDERING SYSTEM PROVIDED DIAGNOSIS CODES: COMPARISON: 08/21/2023. 09/26/2023. 10/18/2023. TECHNIQUE: Axial CT images were obtained of the chest, abdomen and pelvis with intravenous contrast. Sagittal and coronal reformatted images were also obtained. Reconstructed images of the thoracic and lumbar spine are also submitted for interpretation. Dose reduction techniques were achieved by using automated exposure control and/or adjustment of mA and/or kV according to patient size and/or use of iterative reconstruction technique. CONTRAST: IOPAMIDOL 370 MG IODINE/ML (76 %) INTRAVENOUS SOLUTION - 75 mL, FINDINGS: CHEST: Mediastinum/lymph nodes: Thyroid gland is normal. Trachea and central airways are patent. Thoracic aorta is normal caliber. Heart is normal in size without pericardial effusion. No mediastinal or hilar lymphadenopathy. No axillary lymphadenopathy. Lungs and pleura: No pneumothorax. Small right pleural effusion. Lungs are clear. Mild bibasilar subsegmental atelectasis. Bones and soft tissues: No acute abnormality. Partially seen multilevel anterior cervical discectomy and fusion hardware, without appreciable complication. Remote mild superior endplate compression deformities at T5, T7, T8. Mild inferior endplate compression deformity at T9. Remote compression deformity at T12 superior endplate. Posterior instrumented fusion spans the lower thoracic spine to the upper sacral spine, without appreciable hardware complication. ABDOMEN: Liver: Normal size. Normal contour... No focal lesion. . Bile ducts: Normal caliber. Gallbladder: Prior cholecystectomy. Pancreas: Normal. Spleen: Normal. Adrenals: Normal. Kidneys/ ureters: No hydronephrosis or nephrolithiasis.. Bowel and peritoneum: Normal caliber. No acute inflammation. No free intraperitoneal air. No ascites or fluid collection. Normal appendix. Vessels: Normal. Lymph nodes: No enlarged lymph nodes. Reproductive organs: No pelvic masses. Bladder: Normal. Soft tissues: Normal. Osseous structures: No acute abnormality. Partially seen multilevel anterior cervical discectomy and fusion hardware, without appreciable complication. Remote compression deformity at T12 superior endplate. Posterior instrumented fusion spans the lower thoracic spine to the upper sacral spine, without appreciable hardware complication. Total right hip arthroplasty without appreciable hardware complication. IMPRESSION: 1. No acute traumatic abnormality in the chest, abdomen, or pelvis. 2. No acute fracture in the thoracic and lumbar spine. Remote mild multilevel compression deformities in the thoracic spine. Posterior instrumented fusion spans lower thoracic-sacral spine, without appreciable hardware complication. Workstation ID: [id number] [facility] Interpretation and review of laboratory results Normal [facility] No Panel InformationOrdered By: Rudolph Tilley on 10-26-2023 [facility] Work Phone: PT/INRon 10-26-2023 INR Coag (PPP) [Relative time] 0.9 {INR} 0.8 - 1.1 [facility] aPTT Coag (Bld) [Time]on Therapeutic range fo r APTT's is 68 - 104 seconds [facility] No Panel Informationon 10-25 Extra Tube Hold for add-ons. [facility] Comment on above: Auto resulted. [facility] Extra Tube Hold for add-ons. [facility] Comment on above: Auto resulted. [facility] Arterial Lineon 08-18-2023 Ray Chapman CRNA 08/18/2023 11:16 AM Arterial Line Patient location: OR Start time: 08/18/2023 10:15 AM End time: 08/18/2023 10:20 AM Staff Performed by: JULIO Preanesthetic Checklist Completed: patient identified, pre-op evaluation, risks and benefits discussed, informed consent obtained, monitors and equipment checked, IV checked and timeout performed Procedure Indications: hemodynamic monitoring and frequent blood draws Final orientation: left Final location: radial Monitoring: assistant unit forester, pulse oximetry, heart rate and BP Sedation: general anesthesia (see MAR) Prep: ChloraPrep Local infiltration: lidocaine 1% Technique: landmarks (Palpation) Final needle: 22 G Final catheter: 20 G x 1 3/4'' Number of attempts: 1 Assessment: draws and flushes without difficulty Post procedure: taped, sterile dressing applied and EBL <10 mL Patient tolerance: patient tolerated the procedure well with no immediate complications [facility] ETT Airwayon 08-18-2023 Ray Chapman CRNA 08/18/2023 10:42 AM ETT Airway Mask ventilation: ventilated by mask Technique: direct laryngoscopy Type: cuffed oral Tube size: 7 mm Final laryngoscope: Mac 3 Location: oral Final grade: 1 Insertion attempts: 1 Placement verification: auscultation, symmetrical chest wall movement and end tidal CO2 Secured at: 20 cm (measured from the teeth) Secured by: tape Bite block: none Lip/tooth/tongue trauma: no [facility] Peripheral Watson 08-18-2023 Ray Chapman CRNA 08/18/2023 11:17 AM Peripheral IV Related to anesthetic: yes Final size: 20 G Final orientation: right Final location: hand Site prep: alcohol Local anesthetic: none Technique: anatomical landmarks Number of attempts: 1 [facility] Blood type and Indirect anti body screen panel (Bld)on 08-04-2023 ABO and Rh group Nom (Bld) Blood group O Rh(D) positive [facility] Blood group antibody screen Ql Negative [facility] Specimen Expires 08/25/2023 23:59 EST [facility] Comprehensive metabolic 2000 panelon 08-04-2023 Albumin [Mass/Vol] 4.2 g/dL 3.2 - 5.2 g/dL [facility] ALP [Catalytic activity/Vol] 77 U/L 40 - 150 U/L [facility] ALT [Catalytic activity/Vol] 7 U/L 0-35 U/L [facility] Anion gap [Moles/Vol] 14 mmol/L 10 - 2 0 mmol/L [facility] AST [Catalytic activity/Vol] 18 U/L 0-35 U/L [facility] Bilirubin [Mass/Vol] 0.5 mg/dL 0.0 - 1 .3 mg/dL [facility] Calcium [Mass/Vol] 9.2 mg/dL 8.4 - 10. 2 mg/dL [facility] Chloride [Moles/Vol] 101 mmol/L 98 - 10 8 mmol/L [facility] Creatinine [Mass/Vol] 0.68 mg/dL 0.60 - 1.20 mg/dL [facility] GFR/1.73 sq M.predicted CKD-EPI (S/P/Bld) [Vol rate/Area] 94 - PINF [facility] Comment on above: Estimated GFR was ca lculated using the 2020 CKD-EPI creatinine equation. Glucose [Mass/Vol] 105 mg/dL High 65 - 99 mg/dL [facility] HCO3 [Moles/Vol] 30 mmol/L 21 - 32 mmol/L [facility] Interpretation and review of laboratory results Abnormal [facility] Potassium [Moles/Vol] 3.7 mmol/L 3.5 - 5.1 mmol/L [facility] Protein [Mass/Vol] 6.9 g/dL 6.0 - 8.0 g/dL [facility] Sodium [Moles/Vol] 141 mmol/L 135 - 145 mmol/L [facility] Urea nitrogen [Mass/Vol] 18 mg/dL 8 - 25 mg/dL [facility] Urea nitrogen/Creatinine [Mass ratio] 26.5 mg/mg High 10.0 - 20.0 [facility] Laborator y Services has implemented the eGFR calculation approach that does not have a coefficient for race that conforms to the NKF-ASN Task Force Recommendations. [facility] Laboratory - Hematology and Cell countson 08-04-2023 Basophils (Bld) [#/Vol] 0.05 10*3/uL [facility] Basophils/100 WBC (Bld) 0.5 % [facility] Eosinophils (Bld) [#/Vol] 0.25 10*3/uL [facility] Eosinophils/100 WBC (Bld) 2.4 % [facility] Erythrocyte distribution width (RBC) [Entitic vol] 12.6 % 11.6 - 14.8 % [facility] Hematocrit (Bld) [Volume fraction] 40.7 % 36.0 - 46.0 % [facility] Hemoglobin (Bld) [Mass/Vol] 13.3 g/dL 12.0 - 16.0 g/dL [facility] Immature granulocytes (Bld) [#/Vol] 0.02 10*3/uL [facility] Immature granulocytes/100 WBC (Bld) 0.20 % [facility] Comment on above: The IG parameter is the percentage of metamyelocytes, myelocytes and promyelocytes. An immature granulocyte count (IG) of 1% or more suggests the possibility of infection, an IG count of 3% is very likely related to an infection. Lymphocytes (Bld) [#/Vol] 1.51 10*3/uL [facility] Lymphocytes/100 WBC (Bld) 14.7 % [facility] MCH (RBC) [Entitic mass] 27.3 pg 26.0 - 34.0 pg [facility] MCHC (RBC) [Mass/Vol] 32.7 g/dL 31.0 - 37.0 g/dL [facility] MCV (RBC) [Entitic vol] 83.6 fL 80.0 - 100.0 fL [facility] Monocytes (Bld) [#/Vol] 0.61 10*3/uL [facility] Monocytes/100 WBC (Bld) 5.9 % [facility] Neutrophils (Bld) [#/Vol] 7.85 10*3/uL High [facility] Neutrophils/100 WBC (Bld) 76.3 % [facility] Nucleated RBC (Bld) [#/Vol] 0.00 10*3/uL [facility] Nucleated RBC/100 WBC (Bld) [Ratio] 0.0 % [facility] Platelet mean volume (Bld) [Entitic vol] 12.2 fL 9.4 - 12.4 fL [facility] Platelets (Bld) [#/Vol] 186 10*3/uL [facility] RBC (Bld) [#/Vol] 4.87 10*6/uL [facility] ealth WBC (Bld) [#/Vol] 10.29 10*3/uL [facility] 08-04 Interpretation and review of laboratory results Abnormal [facility] CNPNon 04-29-2023 CNPN Telephone (ORTHSO) MATTHEW PEREZ ([id number]) 1955 F Date Time Provider Department 04/29/23 ZAFAR FAITH During your visit today, we recorded the following information about you: Janell Downey Pss 04/29/2023 9:30 AM Signed Wandy from outpatient rehab on behalf of Matthew Perez is calling Zafar Faith DO today to request Order - PT. Patient has been identified by name and birthdate. Wandy states the patient has expressed interest in having her PT at their facility She is requesting the order be faxed to her attention at [facility] . Janell Downey PSS Sofy Lopez RN 04/29/2023 11:04 AM Signed Faxed Allergies As of Date: 04/29/2023 Noted Allergy Reaction DULOXETINE 09/04/2018 8 - GI Upset Comments: Nausea NSAIDS (NON-STEROIDAL ANTI-INFLAM*12/30/2020 8 - GI Upset 11 - Vomiting IBUPROFEN 04/15/2019 8 - GI Upset 11 - Vomiting PREGABALIN 11/08/2017 14 - Other: See Comments Comments: Other reaction(s): Other (See Comments) nightmares nightmares METFORMIN 10/28/2017 8 - GI Upset Comments: Other reaction(s): GI Intolerance Date Reviewed: 04/22/2023 Reviewed by: Jose R Eugene Ma - Fully Assessed Reason for Visit: Order - PT [Other] Prescriptions as of 04/29/2023 - QVAR REDIHALER 40 mcg/actuation inhaler - albuterol HFA (PROVENTIL HFA, VENTOLIN HFA) 90 mcg/actuation inhaler Inhale 2 Puffs as instructed every 4 hours as needed. - celecoxib (CELEBREX) 200 mg capsule - diclofenac (VOLTAREN) 1 % topical gel Apply to affected area. - ipratropium (ATROVENT) 0.02 % nebulizer solution Inhale 0.5 mg as instructed. - HYDROCODONE-ACETAMINOP HEN ORAL Take by mouth every 6 hours as needed. - Melatonin 5 mg cap Take 5 mg by mouth. - montelukast (SINGULAIR) 10 mg tablet - naloxone 4 mg/actuation nasal spray (NARCAN) Narcan 4 mg/actuation nasal spray - oxyCODONE-acetaminophe n (PERCOCET 10) 10-325 mg tablet - furosemide (LASIX) 20 mg tablet Take by mouth q 24 HR. - rOPINIRole (REQUIP) 1 mg tablet Take 2 tablets by mouth q 24 HR. - sertraline (ZOLOFT) 100 mg tablet Take by mouth q 24 HR. - SUMAtriptan (IMITREX) 100 mg tablet Take 100 mg by mouth. - tiotropium (SPIRIVA) 18 mcg inhalation capsule Inhale 18 mcg as instructed q 24 HR. - traZODone (DESYREL) 50 mg tablet Take 50 mg by mouth. - ascorbic acid(VITAMIN C 500 MG TAB) Take one(1) tablet daily. - butalb/acetaminophen/c affeine(FIORICET 50 MG-325 MG-40 MG TAB) as necessary - lisinopril(ZESTRIL 20 MG TAB) Take one(1) tablet two(2) times daily. - SOTALOL 80 MG TAB Take one(1) tablet three times daily. - amlodipine besylate(NORVASC 10 MG TAB) Take one(1) tablet daily. - CLONAZEPAM 1 MG TAB Take one(1) tablet daily at bedtime. Problem List As Of Date 04/29/2023 Noted Resolved Intermittent claudication (HCC) [I73.9] 04/22/2023 Encounter Status:Closed by SOFY LOPEZ on 04/29/23 [facility] Lilibeth 04-22-2023 CNOV Office Visit (ORTHSO ) MATTHEW PEREZ ([id number]) 1955 F Date Time Provider Department 04/22/23 2:00 PM ZAFAR FAITH During your visit today, we recorded the following information about you: Weight Height 79.7 kg 1.61 m Sofy Lopez RN 04/22/2023 3:19 PM Signed Left hip pain Being worked up for pain generator - hip v back v SI joint Was referred to neurosurgery by her ortho doc in [address] Spine injection 02/04 IA CSI left hip early February? SI joint injection 03/30 Percocet Voltaren gel Zafar Faith DO 04/22/2023 3:19 PM Signed NEW Left Hip EVALUATION NEW PATIENT HISTORY AND PHYSICAL EXAM PATIENT INFO: Matthew Perez 68 year old REFERRING M.D.: No referring provider defined for this encounter. HISTORY CHIEF COMPLAINT: pain in Left Hip HPI: Patient is a 68 year old year old FEMALE here today for evaluation of left hip pain. The patient has been seen down in the [place] area for her left hip or low back or SI joint. She has had previous lumbar spinal surgeries x3. Her pain she describes is twofold #1 she has pain in the low back over the SI joint but she also has a burning searing sensation when lying flat or at night. She has difficulty sleeping at night secondary to this burning pain that wraps around from the low lumbar spine on the left and then down the left lower extremity along the lateral aspect of the hip and down to the level of the knee. She does get pain in the groin intermittently this is not her main complaint today. She has had previous injections in the paraspinal area and is well as the left hip. She states the left hip injection was done in early February we do not have these notes from care everywhere but it states in a follow-up note that she just recently received an intra-articular hip injection and this was mid February. We assume that this was in early February that she received the injection and this gave her not really any significant relief of the burning type discomfort she describes she states that the groin pain did get better with this injection inside the left hip joint. She has had SI joint injections as well. [place] physician is recommending that she proceed with SI joint fusion. She is here for further consideration of options. Patient is currently on Celebrex as well as oxycodone 10/325 6 times a day. She denies any bowel or bladder dysfunction any saddle anesthesia. All 3 lumbar spinal surgeries were done by different physicians. PAST MEDICAL HISTORY Diagnosis Date Chronic depressive personality disorder Congestive heart failure, unspecified Myalgia and myositis, unspecified Other forms of migraine PMH - PAST MEDICAL HISTORY OF h/o thyroid issues when with her son Restless legs syndrome (RLS) Unspecified essential hypertension Essential hypertension Unspecified sleep apnea PAST SURGICAL HISTORY Procedure Laterality Date PAST SURGICAL HISTORY OF h/o 3 right foot surgeries PAST SURGICAL HISTORY OF 10/02 lumbar fusion TOTAL ABDOMINAL HYSTERECT W/WO RMVL TUBE OVARY 2004 Hysterectomy, [facility] Current Outpatient Medications Medication Sig Dispense Refill QVAR REDIHALER 40 mcg/actuation inhaler albuterol HFA (PROVENTIL HFA, VENTOLIN HFA) 90 mcg/actuation inhaler Inhale 2 Puffs as instructed every 4 hours as needed. celecoxib (CELEBREX) 200 mg capsule diclofenac (VOLTAREN) 1 % topical gel Apply to affected area. ipratropium (ATROVENT) 0.02 % nebulizer solution Inhale 0.5 mg as instructed. oxyCODONE-acetaminophe n (PERCOCET 10) 10-325 mg tablet rOPINIRole (REQUIP) 1 mg tablet Take 2 tablets by mouth q 24 HR. sertraline (ZOLOFT) 100 mg tablet Take by mouth q 24 HR. lisinopril(ZESTRIL 20 MG TAB) Take one(1) tablet two(2) times daily. 0 amlodipine besylate(NORVASC 10 MG TAB) Take one(1) tablet daily. 0 HYDROCODONE-ACETAMINOP HEN ORAL Take by mouth every 6 hours as needed. (Patient not taking: Reported on 04/22/2023) Melatonin 5 mg cap Take 5 mg by mouth. (Patient not taking: Reported on 04/22/2023) montelukast (SINGULAIR) 10 mg tablet (Patient not taking: Reported on 04/22/2023) naloxone 4 mg/actuation nasal spray (NARCAN) Narcan 4 mg/actuation nasal spray furosemide (LASIX) 20 mg tablet Take by mouth q 24 HR. (Patient not taking: Reported on 04/22/2023) SUMAtriptan (IMITREX) 100 mg tablet Take 100 mg by mouth. (Patient not taking: Reported on 04/22/2023) tiotropium (SPIRIVA) 18 mcg inhalation capsule Inhale 18 mcg as instructed q 24 HR. (Patient not taking: Reported on 04/22/2023) traZODone (DESYREL) 50 mg tablet Take 50 mg by mouth. (Patient not taking: Reported on 04/22/2023) ascorbic acid(VITAMIN C 500 MG TAB) Take one(1) tablet daily. (Patient not taking: No sig reported) 0 butalb/acetaminophen/c affeine(FIORICET 50 MG-325 MG-40 MG TAB) as necessary (Pat (more content not included)... [facility] XR HIP 3V PELV+ AP/LAT LTon 04-22-2023 XR HIP 3V PELV+ AP/LAT LT * * *Final Report* * * DATE OF EXAM: Apr 22 2023 2:10PM [id number] - XR HIP 3V PELV+ AP/LAT LT / PROCEDURE REASON: Pain * * * * Physician Interpretation * * * * HISTORY (as given from clinical provider): Pain . Additional history provided by the performing technologist (if any): chronic left hip pain TECHNIQUE: XR HIP 3V PELV+ AP/LAT LT COMPARISON: None RESULT: Severe osteoarthritis of the left hip. Status post right-sided total hip arthroplasty, the visualized portions of which are within normal limits. Surgical changes in the lumbosacral spine. No other significant abnormality. - IMPRESSION: SEVERE OSTEOARTHRITIS Squirrel Worker: [email or web address] Transcribe Date/Time: Apr 22 2023 3:36P Dictated by : DENZEL CALDWELL MD This examination was interpreted and the report reviewed and electronically signed by: DENZEL CALDWELL MD on Apr 22 2023 3:36PM EST [id number] [facility] XR Pelvis and Hip - left AP and Lateral frogon 04-22-2023 IMPRESSION: SEVERE OSTEOARTHRITIS Squirrel Worker: [email or web address] Transcribe Date/Time: Apr 22 2023 3:36P Dictated by : DENZEL CALDWELL MD This examination was interpreted and the report reviewed and electronically signed by: DENZEL CALDWELL MD on Apr 22 2023 3:36PM EST DIVISION OF RADIOLOGY * * *Final Report* * * DATE OF EXAM: Apr 22 2023 2:10PM [id number] [id number] - XR HIP 3V PELV+ AP/LAT LT / PROCEDURE REASON: Pain * * * * Physician Interpretation * * * * HISTORY (as given from clinical provider): Pain . Additional history provided by the performing technologist (if any): chronic left hip pain TECHNIQUE: XR HIP 3V PELV+ AP/LAT LT COMPARISON: None RESULT: Severe osteoarthritis of the left hip. Status post right-sided total hip arthroplasty, the visualized portions of which are within normal limits. Surgical changes in the lumbosacral spine. No other significant abnormality. - DIVISION OF RADIOLOGY Provider, [facility] - 04/22/2023 * * *Final Report* * * DATE OF EXAM: Apr 22 2023 2:10PM SOX [id number] - XR HIP 3V PELV+ AP/LAT LT / PROCEDURE REASON: Pain * * * * Physician Interpretation * * * * HISTORY (as given from clinical provider): Pain . Additional history provided by the performing technologist (if any): chronic left hip pain TECHNIQUE: XR HIP 3V PELV+ AP/LAT LT COMPARISON: None RESULT: Severe osteoarthritis of the left hip. Status post right-sided total hip arthroplasty, the visualized portions of which are within normal limits. Surgical changes in the lumbosacral spine. No other significant abnormality. - IMPRESSION IMPRESSION: SEVERE OSTEOARTHRITIS Squirrel Worker: [email or web address] Transcribe Date/Time: Apr 22 2023 3:36P Dictated by : DENZEL CALDWELL MD This examination was interpreted and the report reviewed and electronically signed by: DENZEL CALDWELL MD on Apr 22 2023 3:36PM EST [facility] Radiology Study observation (narrative) [facility] XR Pelvis and Hip - left AP and Lateral frogOrdered By: [facility] Provider on 04-22-2023 [facility] CNOVon 04-18-2023 CNOV Office Visit (ORTHWS ) MATTHEW PEREZ ([id number]) 1955 F Date Time Provider Department 04/18/23 1:30 PM GIACOMO VANESSA During your visit today, we recorded the following information about you: Giacomo Vanessa MD 05/17/2023 11:34 PM Signed Giacomo Vanessa MD Department of Orthopaedics Orthopaedics [address] [facility] [address] Dept: [phone] Dept April 18, 2023 CHIEF COMPLAINT: New, Musculoskeletal Problem, and Pain of the Right Hand HPI Patient presents to office for right hand deformity. Patient states symptoms started 2 months ago after she was firmly grabbing steering wheel for 2 hours. Patient complain of pain rating 1/10 on pain scale. AMB ROOMING INTAKE FLOWSHEET DATA Risk Screening Do you have concerns about personal safety or safety in the home?: Yes. 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 We can try jalen strapping and OT splinting. Surgical correction, she can follow up with Dr. Hale. FOLLOW UP INSTRUCTIONS: As above. Ms. Matthew Perez was advised as to contrast therapies and/or to take analgesics/anti-inflam matories as needed and all contraindications were reviewed. OBJECTIVE: Ms. Matthew Perez is a pleasant 68 year old in no apparent distress. Gen:There were no vitals taken for this visit. nl development, non obese, no deformities ENT: Normocephalic, normal hearing, moist mucosa CV: Pulses:Radial= 2+ and symmetric, capillary refill < 2 secs, no peripheral edema/varicosities Skin: no rash, bruising or lesions. Good turgor. Psych: cooperative and appropriate, alert and oriented x 3, good mood and affect. Musculoskeletal: Extensor tendon subluxation. IMAGING: IMPRESSION: DEGENERATIVE JOINT DISEASE, NO ACUTE BONY ABNORMALITY. Squirrel Worker: [email or web address] Transcribe Date/Time: Apr 23 2023 11:04A Dictated by : SAM PEARSON MD This examination was interpreted and the report reviewed and electronically signed by: SAM PEARSON MD on Apr 23 2023 11:07AM EST Results-Findings * * *Final Report* * * DATE OF EXAM: Apr 18 2023 1:44PM [id number] - XR HAND 3V PA/LAT/OBL RT / PROCEDURE REASON: Right hand pain * * * * Physician Interpretation * * * * HISTORY: 68-YEAR-OLD FEMALE WITH Right hand pain . PT STATES MIDDLE AND RING FINGER TNEDON ISSUE. NO INJURY STARTED 2 MONTHS AGO TECHNIQUE: XR HAND 3V PA/LAT/OBL RT Laterality: RIGHT Number of different views (projections): 3 COMPARISON: None RESULT: Right hand: Small osteophytes at the first CMC and IP joint of the thumb. Small osteophytes at the MCP joint of the second digit. Slight ulnar subluxation of the second, third and fourth digit at the MCP joint. Degenerative changes of the PIP joint of the fourth and fifth digit. No fracture. No erosions. Supporting Subjective Information Below: Past Medical History: PAST MEDICAL HISTORY Diagnosis Date Chronic depressive personality disorder Congestive heart failure, unspecified Myalgia and myositis, unspecified Other forms of migraine PMH - PAST MEDICAL HISTORY OF h/o thyroid issues when with her son Restless legs syndrome (RLS) Unspecified essential hypertension Essential hypertension Unspecified sleep apnea Past Surgical History: PAST SURGICAL HISTORY Procedure Laterality Date PAST SURGICAL HISTORY OF h/o 3 right foot surgeries PAST SURGICAL HISTORY OF 10/02 lumbar fusion TOTAL ABDOMINAL HYSTERECT W/WO RMVL TUBE OVARY 2005 Hysterectomy, [facility] Family History: FAMILY HISTORY Problem Relation Age of Onset Diabetes Father Heart Father Hypertension Father Breast Cancer Mother with mets to brain, lung and liver Social History: Social History Tobacco Use Smoking status: Never Smokeless tobacco: Never Substance Use Topics Alcohol use: No Comment: 1-2 drinks per year Drug use: Never Medications: Current Outpatient Medications Medication Sig albuterol HFA (PROVENTIL HFA, VENTOLIN HFA) 90 mcg/actuation inhaler Inhale 2 Puffs as instructed every 4 hours as needed. celecoxib (CELEBREX) 200 mg capsule diclofenac (VOLTAREN) 1 % topical gel Apply to affected area. ipratropium (ATROVENT) 0.02 % nebulizer solution Inhale 0.5 mg as instructed. HYDROCODONE-ACETAMINOP HEN ORAL Take by mouth every 6 hours as needed. Melatonin 5 (more content not included)... [facility] XR HAND 3V PA/LAT/OBL RTon 0 04-18-2023 XR HAND 3V PA/LAT/OBL RT * * *Final Report* * * DATE OF EXAM: Apr 18 2023 1:44PM [id number] - XR HAND 3V PA/LAT/OBL RT / PROCEDURE REASON: Right hand pain * * * * Physician Interpretation * * * * HISTORY: 68-YEAR-OLD FEMALE WITH Right hand pain . PT STATES MIDDLE AND RING FINGER TNEDON ISSUE. NO INJURY STARTED 2 MONTHS AGO TECHNIQUE: XR HAND 3V PA/LAT/OBL RT Laterality: RIGHT Number of different views (projections): 3 COMPARISON: None RESULT: Right hand: Small osteophytes at the first CMC and IP joint of the thumb. Small osteophytes at the MCP joint of the second digit. Slight ulnar subluxation of the second, third and fourth digit at the MCP joint. Degenerative changes of the PIP joint of the fourth and fifth digit. No fracture. No erosions. IMPRESSION: DEGENERATIVE JOINT DISEASE, NO ACUTE BONY ABNORMALITY. Squirrel Worker: PSCB Transcribe Date/Time: Apr 23 2023 11:04A Dictated by : SAM PEARSON MD This examination was interpreted and the report reviewed and electronically signed by: SAM PAERSON MD on Apr 23 2023 11:07AM EST [id number] [facility] LARGE JOINT/BURSA INJECTION AND/OR ASPIRATIONon 04-05-2023 Radiology Study observation (narrative) [facility] LARGE JOINT/BURSA INJECTION AND/OR ASPIRATIONon 03-30-2023 Morgan Dontae 04/05/20 1:16 PM LARGE JOINT/BURSA INJECTION AND/OR ASPIRATION Date/Time: 03/30/2023 1:40 PM Performed by: Raoul Lundy MD Authorized by: Raoul Lundy MD Supporting Documentation Indications: pain and osteoarthritis Procedure Details: Location: sacroiliac - L sacroiliac joint Local Anesthetic: bupivacaine 0.5% and lidocaine 1% Total Local Anesthetic: 4 mLs Guidance: ultrasound Ultrasound probe size: 4 mHz curvilinear Images were saved electronically. Needle size: 22 G Needle Length: 4.0 inch Approach: posterior Medication Verification: I have personally verified and performed the final check of the medication(s) used in this procedure prior to administration. The following items were included during the verification process for medication(s) administered: drug name, strength, volume, expiration, physical integrity and appearance of the medication(s). Medications administered: 1 mL bupivacaine 0.5 %; 2 mL triamcinolone 40 MG/ML; 4 mL Lidocaine 10 mg/mL; 5 mL Sodium chloride (PF) 0.9 %; 4 mg dexAMETHasone 4 MG/ML Patient tolerance: patient tolerated the procedure well with no immediate complications Comments Medical Decision Making At today's visit I reviewed the history, physical examination, and previous pertinent imaging. We weighed the options of whether or not to proceed with an injection today based off of these findings and discussed alternatives. After this discussion, I felt that the injection was indicated and we elected to proceed. This evaluation and management service was a separate and identifiable service apart from the injection. Pre-Procedure Details The attending physician was present for the entire procedure. Consent: Consent was obtained prior to the procedure after discussion of the risks, benefits and alternatives, and expected outcomes were discussed with the patient. The possibilities of reaction to medication, bleeding, infection, the need for additional procedures, failure to diagnosis a condition, and creating a complication requiring operation were discussed with the patient. The patient concurred with the proposed plan, giving consent. Preparation: Patient was prepped in the usual sterile fashion. The patient was prepped with Chloraprep. [facility] Unspecified body regionon 03-30-2023 Image Storage This order is to facilitate the storage of the image. [facility] LOWER EXTREMITY INJECTIONon 02-23-2023 Radiology Study observation (narrative) [facility] LOWER EXTREMITY INJECTIONon 02-22-2023 Felix Maguire ATC 02/23/2023 12:03 PM LOWER EXTREMITY INJECTION Date/Time: 02/22/2023 9:00 AM Performed by: Felix Maguire ATC Authorized by: Raoul Lundy MD Supporting Documentation Indications: pain and therapeutic Procedure Details: Procedure: trigger point injection Location: spine - Trigger Point Injection Details: Left lumbar paraspinal Needle size: 22 G Number of muscles injected: 1-2 muscle groups Medication Verification: I have personally verified and performed the final check of the medication(s) used in this procedure prior to administration. The following items were included during the verification process for medication(s) administered: drug name, strength, volume, expiration, physical integrity and appearance of the medication(s). Medications administered: 1 mL lidocaine 10 mg/mL; 1 mL bupivacaine 0.5 %; 80 mg triamcinolone 40 MG/ML; 4 mg dexAMETHasone 4 MG/ML Patient tolerance: patient tolerated the procedure well with no immediate complications Comments Medical Decision Making At today's visit I reviewed the history, physical examination, and previous pertinent imaging. We weighed the options of whether or not to proceed with an injection today based off of these findings and discussed alternatives. After this discussion, I felt that the injection was indicated and we elected to proceed. This evaluation and management service was a separate and identifiable service apart from the injection. Pre-Procedure Details The attending physician was present for the entire procedure. Consent: Consent was obtained prior to the procedure after discussion of the risks, benefits and alternatives, and expected outcomes were discussed with the patient. The possibilities of reaction to medication, bleeding, infection, the need for additional procedures, failure to diagnosis a condition, and creating a complication requiring operation were discussed with the patient. The patient concurred with the proposed plan, giving consent. Preparation: Patient was prepped in the usual sterile fashion. The patient was prepped with alcohol. [facility] NERVE INJECTIONon 02-22-2023 Radiology Study observation (narrative) [facility] NERVE INJECTIONon 02-04-2023 Felix Maguire ATC 02/22/2023 9:01 AM Date/Time: 02/04/2023 12:40 PM Performed by: Felix Maguire ATC Authorized by: Raoul Lundy MD NERVE INJECTION Indications: pain and therapeutic Guidance: ultrasound Ultrasound probe size: 4 mHz curvilinear Images were saved electronically. Needle size: 22 G Needle length (in): 4.0 inch. Body area: lower extremity Nerve: lateral femoral cutaneous Laterality: left Lower Extremity Region Injected: hip Patient position: supine Medication Verification: I have personally verified and performed the final check of the medication(s) used in this procedure prior to administration. The following items were included during the verification process for medication(s) administered: drug name, strength, volume, expiration, physical integrity and appearance of the medication(s). Local Anesthetic: bupivacaine 0.5% and lidocaine 1% Total Local Anesthetic: 4 mLs Patient tolerance: patient tolerated the procedure well with no immediate complications Comments: Medical Decision Making At today's visit I reviewed the history, physical examination, and previous pertinent imaging. We weighed the options of whether or not to proceed with an injection today based off of these findings and discussed alternatives. After this discussion, I felt that the injection was indicated and we elected to proceed. This evaluation and management service was a separate and identifiable service apart from the injection. Pre-Procedure Details The attending physician was present for the entire procedure. Consent: Consent was obtained prior to the procedure after discussion of the risks, benefits and alternatives, and expected outcomes were discussed with the patient. The possibilities of reaction to medication, bleeding, infection, the need for additional procedures, failure to diagnosis a condition, nerve injury, and creating a complication requiring operation were discussed with the patient. The patient concurred with the proposed plan, giving consent. Preparation: Patient was prepped in the usual sterile fashion. The patient was prepped with Chloraprep. [facility] [place] Unspecified body regionon 02-04-2023 Image Storage This order is to facilitate the storage of the image. [facility] LARGE JOINT/BURSA INJECTION AND/OR ASPIRATION: L subacromial bursaon 12-27-2022 Raoul Lundy MD 12/27/2022 8:22 PM LARGE JOINT/BURSA INJECTION AND/OR ASPIRATION: L subacromial bursa Date/Time: 12/27/2022 9:10 AM Supporting Documentation Indications: pain Procedure Details: Location: shoulder - L subacromial bursa Needle size: 22 G Approach: posterior Medication Verification: I have personally verified and performed the final check of the medication(s) used in this procedure prior to administration. The following items were included during the verification process for medication(s) administered: drug name, strength, volume, expiration, physical integrity and appearance of the medication(s). Medications administered: 2 mL triamcinolone 40 MG/ML; 1 mL Lidocaine 10 mg/mL; 1 mL bupivacaine 0.5 %; 4 mg dexAMETHasone 4 MG/ML Patient tolerance: patient tolerated the procedure well with no immediate complications Pre-Procedure Details The attending physician was present for the entire procedure. Consent: Consent was obtained prior to the procedure after discussion of the risks, benefits and alternatives, and expected outcomes were discussed with the patient. The possibilities of reaction to medication, bleeding, infection, the need for additional procedures, failure to diagnosis a condition, and creating a complication requiring operation were discussed with the patient. The patient concurred with the proposed plan, giving consent. Preparation: Patient was prepped in the usual sterile fashion. The patient was prepped with alcohol. [facility] Radiology Study observation (narrative) [facility] LARGE JOINT/BURSA INJECTION AND/OR ASPIRATIONon 12-26-2022 Radiology Study observation (narrative) [facility] LARGE JOINT/BURSA INJECTION AND/OR ASPIRATIONon 12-03-2022 Felix Maguire ATC 12/26/2022 1:57 PM LARGE JOINT/BURSA INJECTION AND/OR ASPIRATION Date/Time: 12/03/2022 2:00 PM Supporting Documentation Indications: pain and osteoarthritis Procedure Details: Location: sacroiliac - bilateral sacroiliac joint Local Anesthetic: lidocaine 1% and bupivacaine 0.5% Total Local Anesthetic: 4 mLs Guidance: ultrasound Ultrasound probe size: 4 mHz curvilinear Images were saved electronically. Needle size: 22 G Needle Length: 4.0 inch Approach: posterior Medication Verification: I have personally verified and performed the final check of the medication(s) used in this procedure prior to administration. The following items were included during the verification process for medication(s) administered: drug name, strength, volume, expiration, physical integrity and appearance of the medication(s). Medications (Right): 4 mL lidocaine 10 mg/mL; 1 mL bupivacaine 0.5 %; 5 mL sodium chloride (PF) 0.9 %; 2 mL triamcinolone 40 MG/ML; 4 mg dexAMETHasone 4 MG/ML Medications (Left): 5 mL sodium chloride (PF) 0.9 %; 4 mL lidocaine 10 mg/mL; 1 mL bupivacaine 0.5 %; 2 mL triamcinolone 40 MG/ML; 4 mg dexAMETHasone 4 MG/ML Patient tolerance: patient tolerated the procedure well with no immediate complications Consent: Consent was obtained prior to the procedure after discussion of the risks, benefits and alternatives, and expected outcomes were discussed with the patient. The possibilities of reaction to medication, bleeding, infection, the need for additional procedures, failure to diagnosis a condition, and creating a complication requiring operation were discussed with the patient. The patient concurred with the proposed plan, giving consent. Preparation: Patient was prepped in the usual sterile fashion. The patient was prepped with Chloraprep. [facility] [place] Unspecified body regionon 12-03-2022 Image Storage This order is to facilitate the storage of the image. [facility] LARGE JOINT/BURSA INJECTION AND/OR ASPIRATION: L hip jointon 10-04-2022 Felix Maguire, RUDDY 10/04/2022 3:07 PM LARGE JOINT/BURSA INJECTION AND/OR ASPIRATION: L hip joint Date/Time: 10/04/2022 10:30 AM Supporting Documentation Indications: pain Procedure Details: Location: hip - L hip joint Local Anesthetic: bupivacaine 0.5% and lidocaine 1% Total Local Anesthetic: 4 mLs Guidance: ultrasound Ultrasound probe size: 4 mHz curvilinear Images were saved electronically. Needle size: 22 G Needle Length: 4.0 inch Approach: anterior Medication Verification: I have personally verified and performed the final check of the medication(s) used in this procedure prior to administration. The following items were included during the verification process for medication(s) administered: drug name, strength, volume, expiration, physical integrity and appearance of the medication(s). Medications administered: 1 mL bupivacaine 0.5 %; 2 mL triamcinolone 40 MG/ML; 4 mL lidocaine 10 mg/mL; 5 mL sodium chloride (PF) 0.9 % Patient tolerance: patient tolerated the procedure well with no immediate complications Pre-Procedure Details The attending physician was present for the entire procedure. Consent: Consent was obtained prior to the procedure after discussion of the risks, benefits and alternatives, and expected outcomes were discussed with the patient. The possibilities of reaction to medication, bleeding, infection, the need for additional procedures, failure to diagnosis a condition, and creating a complication requiring operation were discussed with the patient. The patient concurred with the proposed plan, giving consent. Preparation: Patient was prepped in the usual sterile fashion. The patient was prepped with Chloraprep. [facility] Radiology Study observation (narrative) [facility] [place] Unspecified body regionon 10-04-2022 Image Storage This order is to facilitate the storage of the image. [facility] XR Pelvis and Hip - bilatera l Viewson 10-04-2022 Body surface area Derived from formula 1.92 m2 [facility]rays of the pelvis and bilateral hips demonstrating no acute abnormalities. Stable right hip JUAN, severe left hip OA, moderate SI joint OA. [facility] weightbearin g AP pelvis and 2 views of the bilateral hips were ordered and interpreted in the presence of the patient by me today. These demonstrate normal mineralization, normal alignment. There is no evidence of acute osseous abnormality or fracture. The right femoracetabular joint demonstrates stable post-JUAN findings. The left femoracetabular joint demonstrates severe evidence of osteoarthrosis. The sacroiliac joints demonstrate moderate evidence of osteoarthrosis. [facility] Radiology Study observation (narrative) [facility] LARGE JOINT/BURSA INJECTION AND/OR ASPIRATIONon 06-29-2022 Radiology Study observation (narrative) [facility] LARGE JOINT/BURSA INJECTION AND/OR ASPIRATIONon 06-24-2022 Felix Maguire, RUDDY 06/29/2022 12:04 PM LARGE JOINT/BURSA INJECTION AND/OR ASPIRATION Date/Time: 06/24/2022 1:40 PM Supporting Documentation Indications: pain and osteoarthritis Procedure Details: Location: sacroiliac - R sacroiliac joint Local Anesthetic: bupivacaine 0.5% and lidocaine 1% Total Local Anesthetic: 4 mLs Guidance: ultrasound Ultrasound probe size: 4 mHz curvilinear Images were saved electronically. Needle size: 22 G Needle Length: 4.0 inch Approach: posterior Medication Verification: I have personally verified and performed the final check of the medication(s) used in this procedure prior to administration. The following items were included during the verification process for medication(s) administered: drug name, strength, volume, expiration, physical integrity and appearance of the medication(s). Medications administered: 1 mL bupivacaine 0.5 %; 2 mL triamcinolone 40 MG/ML; 4 mL lidocaine 10 mg/mL; 5 mL sodium chloride (PF) 0.9 %; 4 mg dexAMETHasone 4 MG/ML Patient tolerance: patient tolerated the procedure well with no immediate complications Pre-Procedure Details The attending physician was present for the entire procedure. Consent: Consent was obtained prior to the procedure after discussion of the risks, benefits and alternatives, and expected outcomes were discussed with the patient. The possibilities of reaction to medication, bleeding, infection, the need for additional procedures, failure to diagnosis a condition, and creating a complication requiring operation were discussed with the patient. The patient concurred with the proposed plan, giving consent. Preparation: Patient was prepped in the usual sterile fashion. The patient was prepped with Chloraprep. [facility] [place] Unspecified body regionon 06-24-2022 Image Storage This order is to facilitate the storage of the image. [facility] POC Urinalysis Dipstick,Auto UCon 09-22-2021 Bilirubin Ql (U) Negative Negative [facility] th Clarity, UA Cloudy Abnormal Clear [facility] Color (U) Yellow Yellow, Light Yellow, Dark Yellow [facility] Glucose Ql (U) Negative Normal, Negative mg/dL [facility] Hemoglobin Ql (U) Small Abnormal Negative [facility] Interpretation and review of laboratory results Abnormal [facility] Ketones Ql (U) Negative Negative mg/dL [facility] Leukocyte esterase Test strip Ql (U) Moderate Abnormal Negative [facility] Nitrite Ql (U) Negative Negative [facility] pH (U) 5.0 [pH] [facility] Protein Ql (U) 100 Abnormal Negative mg/dL [facility] Specific gravity (U) [Rel density] 1.030 Abnormal [facility] Urobilinogen Qn (U) 0.2 mg/dL <2.0, 0. 2, Normal, Negative, 1.0, 2.0, <1.0 [facility] Basic metabolic 2000 panelOr dered By: Michael Verdugo on 03-23-2021 Anion gap [Moles/Vol] 11 mmol/L 10 - 2 0 mmol/L [facility] Calcium [Mass/Vol] 9.6 mg/dL 8.4 - 10. 2 mg/dL [facility] Chloride [Moles/Vol] 103 mmol/L 98 - 10 8 mmol/L [facility] Creatinine [Mass/Vol] 0.75 mg/dL 0.60 - 1.20 [facility] GFR/1.73 sq M.predicted CKD-EPI (S/P/Bld) [Vol rate/Area] 82 >=60 mL/min/1.73 m2 [facility] Glucose [Mass/Vol] 121 mg/dL High 65 - 99 mg/dL [facility] HCO3 [Moles/Vol] 31 mmol/L 21 - 32 mmol/L [facility] Interpretation and review of laboratory results Abnormal [facility] Potassium [Moles/Vol] 3.5 mmol/L 3.5 - 5.1 mmol/L [facility] Sodium [Moles/Vol] 141 mmol/L 135 - 145 mmol/L [facility] Urea nitrogen [Mass/Vol] 12 mg/dL 8 - 25 mg/dL [facility] Urea nitrogen/Creatinine [Mass ratio] 16.0 mg/mg [facility] The eGFR should be used for monitoring renal function only and not for medication dosing. [facility] CBC WITH AUTO DIFFERENTIALOr dered By: Michael Verdugo on 03-23-2021 Basophils (Bld) [#/Vol] 0.05 10*3/uL [facility] Basophils/100 WBC (Bld) 0.5 % [facility] Eosinophils (Bld) [#/Vol] 0.18 10*3/uL [facility] Eosinophils/100 WBC (Bld) 1.7 % [facility] Erythrocyte distribution width (RBC) [Entitic vol] 13.2 % 11.6 - 14.8 % [facility] Hematocrit (Bld) [Volume fraction] 43.6 % 36.0 - 46.0 % [facility] Hemoglobin (Bld) [Mass/Vol] 14.4 g/dL 12.0 - 16.0 g/dL [facility] Immature granulocytes (Bld) [#/Vol] 0.05 10*3/uL [facility] Immature granulocytes/100 WBC (Bld) 0.50 % [facility] Comment on above: The IG parameter is the percentage of metamyelocytes, myelocytes and promyelocytes. An immature granulocyte count (IG) of 1% or more suggests the possibility of infection, an IG count of 3% is very likely related to an infection. Interpretation and review of laboratory results Abnormal [facility] Lymphocytes (Bld) [#/Vol] 1.66 10*3/uL [facility] Lymphocytes/100 WBC (Bld) 15.4 % [facility] MCH (RBC) [Entitic mass] 26.9 pg 26.0 - 34.0 pg [facility] MCHC (RBC) [Mass/Vol] 33.0 g/dL 31.0 - 37.0 g/dL [facility] MCV (RBC) [Entitic vol] 81.5 fL 80.0 - 100.0 fL [facility] Monocytes (Bld) [#/Vol] 0.89 10*3/uL [facility] Monocytes/100 WBC (Bld) 8.2 % [facility] Neutrophils (Bld) [#/Vol] 7.98 10*3/uL High [facility] Neutrophils/100 WBC (Bld) 73.7 % [facility] Nucleated RBC (Bld) [#/Vol] 0.00 10*3/uL [facility] Nucleated RBC/100 WBC (Bld) [Ratio] 0.0 % [facility] Platelet mean volume (Bld) [Entitic vol] 12.4 fL 9.4 - 12.4 fL [facility] Platelets (Bld) [#/Vol] 212 10*3/uL [facility] RBC (Bld) [#/Vol] 5.35 10*6/uL High [facility] ealth WBC (Bld) [#/Vol] 10.81 10*3/uL [facility] INR Coag (PPP) [Relative raza e]Ordered By: Michael Verdugo on 03-23-2021 Interpretation and review of laboratory results Normal [facility] PT Coag (PPP) [Time] 12.2 s [facility] During the induction phase of oral anticoagulation, the INR may not reflect the anticoagulation status of the patient. Therapeutic ranges for INR's are: Most clinical situations: INR 2.0-3.0 Mechanical Prosthetic Valve: INR 2.5-3.5 Critical: INR >5.0 [facility] NT Pro BNPOrdered By: Michael winchester on 03-23-2021 Natriuretic peptide.B prohormone N-Terminal [Mass/Vol] 85 pg/mL 0 - 300 pg/mL [facility] Natriuretic peptide.B prohor chani N-Terminal [Mass/Vol]Ordered By: Michael Verdugo on 03-23-2021 Interpretation and review of laboratory results Normal [facility] Pride Study Cut-offs Rule In: < /= 50 Years >450 pg/mL 51 Years - 75 Years >900 pg/mL 76 Years - 99 Years >1800 pg/mL Rule Out: All patients <300 pg/mL [facility] No Panel InformationOrdered By: Michael Verdugo on 03-23-2021 Extra Tube Hold for add-ons. [facility] Comment on above: Auto resulted. [facility] Extra Tube Hold for add-ons. [facility] Comment on above: Auto resulted. [facility] PT/INROrdered By: Michael Verdugo on 03-23-2021 INR Coag (PPP) [Relative time] 0.9 {INR} [facility] TROPONINOrdered By: Michael solitario on 03-23-2021 Troponin I Interpretation Normal [facility] Troponin I.cardiac [Mass/Vol] ng/mL <=45 ng/L [facility] XR Chest 1 ViewOrdered By: Chris Verdugo on 03-23-2021 No acute cardiopulmonary process. Workstation ID: [id number] [facility] EXAMINATION: CHEST RADIOGRAPH HISTORY: sob PULM OFFICE POLICIES/MILA SIGNED 02/26/2021 Injury/Trauma or Illness?:Illness/Other How long have you had these symptoms (acute/chronic)?:Acute Reason for exam?:Patient states, I have COPD and it's the worse it's ever down, especially if I lay down. Patient reports she does not have home O2. History of cancer?:NO COMPARISON: Chest 03/05/2021. TECHNIQUE: An AP radiograph was performed of the chest. FINDINGS: SUPPORT APPARATUS/POST-SURGICA L CHANGES: None. CARDIOMEDIASTINAL SILHOUETTE: Normal. AIRWAYS/LUNGS: Stable postsurgical changes in the left midlung with surgical scarring and yosvany. No acute focal consolidation. PLEURAL SPACES: No pleural effusion or pneumothorax. BONES AND SOFT TISSUES: Surgical plates and screws in the lower cervical and upper thoracic spine consistent with fusion. Suture anchor in the right humeral head.. [facility] Interface, Rad In Chris Redmondq - 03/23/2021 10:15 PM EDT EXAMINATION: CHEST RADIOGRAPH HISTORY: sob PULM OFFICE POLICIES/MILA SIGNED 02/26/2021 Injury/Trauma or Illness?:Illness/Other How long have you had these symptoms (acute/chronic)?:Acute Reason for exam?:Patient states, I have COPD and it's the worse it's ever down, especially if I lay down. Patient reports she does not have home O2. History of cancer?:NO COMPARISON: Chest 03/05/2021. TECHNIQUE: An AP radiograph was performed of the chest. FINDINGS: SUPPORT APPARATUS/POST-SURGICA L CHANGES: None. CARDIOMEDIASTINAL SILHOUETTE: Normal. AIRWAYS/LUNGS: Stable postsurgical changes in the left midlung with surgical scarring and yosvany. No acute focal consolidation. PLEURAL SPACES: No pleural effusion or pneumothorax. BONES AND SOFT TISSUES: Surgical plates and screws in the lower cervical and upper thoracic spine consistent with fusion. Suture anchor in the right humeral head.. IMPRESSION: No acute cardiopulmonary process. Workstation ID: [id number] [facility] Basic metabolic 2000 panelOr dered By: Arianna Ng on 03-14-2021 Anion gap [Moles/Vol] 9 mmol/L Low 10 - 2 0 mmol/L [facility] Calcium [Mass/Vol] 8.9 mg/dL 8.4 - 10. 2 mg/dL [facility] Chloride [Moles/Vol] 106 mmol/L 98 - 10 8 mmol/L [facility] Creatinine [Mass/Vol] 0.68 mg/dL 0.60 - 1.20 [facility] GFR/1.73 sq M.predicted CKD-EPI (S/P/Bld) [Vol rate/Area] 90 >=60 mL/min/1.73 m2 [facility] Glucose [Mass/Vol] 127 mg/dL High 65 - 99 mg/dL [facility] HCO3 [Moles/Vol] 30 mmol/L 21 - 32 mmol/L [facility] Interpretation and review of laboratory results Abnormal [facility] Potassium [Moles/Vol] 3.6 mmol/L 3.5 - 5.1 mmol/L [facility] Sodium [Moles/Vol] 141 mmol/L 135 - 145 mmol/L [facility] Urea nitrogen [Mass/Vol] 13 mg/dL 8 - 25 mg/dL [facility] Urea nitrogen/Creatinine [Mass ratio] 19.1 mg/mg [facility] The eGFR should be used for monitoring renal function only and not for medication dosing. [facility] CBC panel Auto (Bld)Ordered By: Arianna Ng on 03-14-2021 Erythrocyte distribution width (RBC) [Entitic vol] 13.2 % 11.6 - 14.8 % [facility] Hematocrit (Bld) [Volume fraction] 38.9 % 36.0 - 46.0 % [facility] Hemoglobin (Bld) [Mass/Vol] 12.8 g/dL 12.0 - 16.0 g/dL [facility] Interpretation and review of laboratory results Abnormal [facility] MCH (RBC) [Entitic mass] 27.4 pg 26.0 - 34.0 pg [facility] MCHC (RBC) [Mass/Vol] 32.9 g/dL 31.0 - 37.0 g/dL [facility] MCV (RBC) [Entitic vol] 83.1 fL 80.0 - 100.0 fL [facility] Nucleated RBC (Bld) [#/Vol] 0.00 10*3/uL [facility] Nucleated RBC/100 WBC (Bld) [Ratio] 0.0 % [facility] Platelet mean volume (Bld) [Entitic vol] 12.1 fL 9.4 - 12.4 fL [facility] Platelets (Bld) [#/Vol] 166 10*3/uL [facility] RBC (Bld) [#/Vol] 4.68 10*6/uL [facility] WBC (Bld) [#/Vol] 13.27 10*3/uL High [facility] Glucose (Bld) [Mass/Vol]Orde red By: Jose Fraga on 03-13-2021 Glucose [Mass/Vol] 137 mg/dL High 65 - 99 mg/dL [facility] Interpretation and review of laboratory results Abnormal [facility] XR OR C-Spine 1 ViewOrdered By: Jose Fraga on 03-13-2021 FINDINGS/ 1. C4-5 anterior plate and screw fusion and interbody spacer placement have been performed, without visualized hardware complications. Please see operative report. 2. ET tube and OG tube are noted. 3. Prior C5-6 and C6-7 interbody bony fusion is noted. Workstation ID: [id number] [facility] EXAMINATION: XR OR C-SPINE 1 VIEW HISTORY: ORDERING SYSTEM PROVIDED HISTORY: surgery, TECHNOLOGIST PROVIDED HISTORY: Illness/Other Reason for exam: surgery Encounter Type: Initial Additional signs and symptoms: pain Fluoro dose in mGy: 0 ORDERING SYSTEM PROVIDED DIAGNOSIS CODES: M50.20 Displacement of cervical intervertebral disc without myelopathy M50.20 Displacement of cervical intervertebral disc without myelopathy COMPARISON: None. TECHNIQUE: Fluoro Dose Ka,r mGy: Fluoro dose in Ka,r mGy: 0 FLUOROSCOPY TIME: Fluoro time in minutes: 0 Number of images obtained: 1. [facility], Rad In Fu ji Speechq 03/13/2021 6:12 PM EDT EXAMINATION: XR OR C-SPINE 1 VIEW HISTORY: ORDERING SYSTEM PROVIDED HISTORY: surgery, TECHNOLOGIST PROVIDED HISTORY: Illness/Other Reason for exam: surgery Encounter Type: Initial Additional signs and symptoms: pain Fluoro dose in mGy: 0 ORDERING SYSTEM PROVIDED DIAGNOSIS CODES: M50.20 Displacement of cervical intervertebral disc without myelopathy M50.20 Displacement of cervical intervertebral disc without myelopathy COMPARISON: None. TECHNIQUE: Fluoro Dose Ka,r mGy: Fluoro dose in Ka,r mGy: 0 FLUOROSCOPY TIME: Fluoro time in minutes: 0 Number of images obtained: 1. IMPRESSION: FINDINGS/ 1. C4-5 anterior plate and screw fusion and interbody spacer placement have been performed, without visualized hardware complications. Please see operative report. 2. ET tube and OG tube are noted. 3. Prior C5-6 and C6-7 interbody bony fusion is noted. Workstation ID: [id number] [facility] FINDINGS/ 1. Marker is present in the anterior aspect of the C4-5 disc space. Please see operative report. 2. ET tube and OG tube are present. Workstation ID: [id number] [facility] EXAMINATION: XR OR C-SPINE 1 VIEW HISTORY: ORDERING SYSTEM PROVIDED HISTORY: crossfire, TECHNOLOGIST PROVIDED HISTORY: Illness/Other Reason for exam: surgery Encounter Type: Initial Additional signs and symptoms: pain Fluoro dose in mGy: 0 ORDERING SYSTEM PROVIDED DIAGNOSIS CODES: M50.20 Displacement of cervical intervertebral disc without myelopathy COMPARISON: None. TECHNIQUE: Fluoro Dose Ka,r mGy: Fluoro dose in Ka,r mGy: 0 FLUOROSCOPY TIME: Fluoro time in minutes: 0 Number of images obtained: 1. [facility] Interface, Rad In [facility] - 03/13/2021 6:10 PM EDT EXAMINATION: XR OR C-SPINE 1 VIEW HISTORY: ORDERING SYSTEM PROVIDED HISTORY: crossfire, TECHNOLOGIST PROVIDED HISTORY: Illness/Other Reason for exam: surgery Encounter Type: Initial Additional signs and symptoms: pain Fluoro dose in mGy: 0 ORDERING SYSTEM PROVIDED DIAGNOSIS CODES: M50.20 Displacement of cervical intervertebral disc without myelopathy COMPARISON: None. TECHNIQUE: Fluoro Dose Ka,r mGy: Fluoro dose in Ka,r mGy: 0 FLUOROSCOPY TIME: Fluoro time in minutes: 0 Number of images obtained: 1. IMPRESSION: FINDINGS/ 1. Marker is present in the anterior aspect of the C4-5 disc space. Please see operative report. 2. ET tube and OG tube are present. Workstation ID: [id number] [facility] EKGOrdered By: Ramiro wilson on 03-10-2021 Ordered by an unspecified provider. [facility] XR CHEST AP/PA AND LATOrdere d By: Arianna Ng on 03-05-2021 No acute findings. Workstation ID: [id number] [facility] EXAMINATION: XR CHES T AP/PA AND LAT HISTORY: preop testing PULM OFFICE POLICIES/MILA SIGNED 02/26/2021 Injury/Trauma or Illness?:Illness/Other How long have you had these symptoms (acute/chronic)?:Unkno wn Reason for exam?:Pt having sx. Pre op chest x-ray. Pt has hx of COPD. No other complications in the chest. History of cancer?:NO Z01.818 Preop testing COMPARISON: June 08, 2019 TECHNIQUE: PA and lateral radiographs of the chest were obtained. FINDINGS: The lungs are clear without focal consolidation, pleural effusion, or pneumothorax. Surgical suture material in the left lung. No visible rib fractures. Cardiac silhouette is normal in size. Osseous structures within normal limits. Cervicothoracic fusion hardware noted. [facility], Rad In [facility] - 03/05/2021 4:51 PM EDT EXAMINATION: XR CHEST AP/PA AND LAT HISTORY: preop testing PULM OFFICE POLICIES/MILA SIGNED 02/26/2021 Injury/Trauma or Illness?:Illness/Other How long have you had these symptoms (acute/chronic)?:Unkno wn Reason for exam?:Pt having sx. Pre op chest x-ray. Pt has hx of COPD. No other complications in the chest. History of cancer?:NO Z01.818 Preop testing COMPARISON: June 08, 2019 TECHNIQUE: PA and lateral radiographs of the chest were obtained. FINDINGS: The lungs are clear without focal consolidation, pleural effusion, or pneumothorax. Surgical suture material in the left lung. No visible rib fractures. Cardiac silhouette is normal in size. Osseous structures within normal limits. Cervicothoracic fusion hardware noted. IMPRESSION: No acute findings. Workstation ID: [id number] [facility] BASIC METABOLIC PANELon 12-29 Calcium [Mass/Vol] 9.8 mg/dL Normal 8.6-10.3 [facility] Comment on above: Performed By: #### 0 0071, [id number], [id number] #### [facility] [address] [place] [address], [facility] Chloride [Moles/Vol] 99 mmol/L Normal 98-107 [facility] Comment on above: Performed By: #### 0 0071, [id number], 06037 #### [facility] [address] [place] [address], [place] CO2 [Moles/Vol] 32 mmol/L High 21-31 [facility] Comment on above: Performed By: #### 0 0071, 08131, 02144 #### [facility] [address] [place] [address], [place] Creatinine [Mass/Vol] 0.81 mg/dL Normal 0.60-1.20 [facility] Comment on above: Performed By: #### 0 0071, 97455, 74115 #### [facility] [address] [place] [address], [place] GFR/1.73 sq M predicted among blacks MDRD (S/P/Bld) [Vol rate/Area] mL/min/{1.73_m2} Normal >60 [facility] Comment on above: Performed By: #### 0 0071, 65850, [id number] #### [facility] [address] [facility] [place] [address], [facility] GFR/1.73 sq M predicted among non-blacks MDRD (S/P/Bld) [Vol rate/Area] mL/min/{1.73_m2} Normal >60 [facility] Comment on above: Performed By: #### 0 0071, [id number], 92387 #### [facility] [address] [place] [id number], [facility] Glucose [Mass/Vol] 94 mg/dL Normal 70-100 [facility] Comment on above: Performed By: #### 0 0071, 36758, 14914 #### [facility] [address] [facility] [place] [place] [address], [facility] Potassium [Moles/Vol] 3.7 mmol/L Normal 3.5-5.1 [facility] Comment on above: Performed By: #### 0 0071, 82262, 79245 #### [facility] [address] [facility] [place] [place] [address], [facility] Sodium [Moles/Vol] 140 mmol/L Normal 136-145 [facility] Comment on above: Performed By: #### 0 0071, 04677, 82334 #### [facility] [address] [facility] [place] [place] [address], [facility] Urea nitrogen [Mass/Vol] 15 mg/dL Normal 7-25 [facility] Comment on above: Performed By: #### 0 0071, [id number], 19560 #### [facility] [address] [facility] [place] [address], [facility] CBC W/DIFFon 01-09-2020 ABS BASOPHILS 0.1 10*3/uL Normal 0.0-0.2 [facility] Comment on above: Performed By: #### 5 0103 #### [facility] [address] [place] [id number], [facility] ABS IMM GRANS 0.0 10*3/uL Normal 0.0-0.2 [facility] Comment on above: Performed By: #### 5 0103 #### [facility] [address] [place] [address], [facility] ABS NEUTROPHILS 4.2 10*3/uL Normal 1.6-7.6 [facility] Comment on above: Performed By: #### 5 0103 #### [facility] [address] [place] [address], [facility] Basophils/100 WBC (Bld) 0.7 % Normal 0.0-1.0 [facility] Comment on above: Performed By: #### 5 0103 #### [facility] [address] [place] [address], [facility] Eosinophils (Bld) [#/Vol] 0.4 10*3/uL Normal 0.0-0.5 [facility] Comment on above: Performed By: #### 5 0103 #### [facility] [address] [place] [address], [facility] Eosinophils/100 WBC (Bld) 4.7 % Normal 0.0-6.0 [facility] Comment on above: Performed By: #### 5 0103 #### [facility] [address] [place] [address], [facility] Erythrocyte distribution width (RBC) [Ratio] 12.8 % Normal 11.5-15.0 [facility] Comment on above: Performed By: #### 5 0103 #### [facility] [address] [place] [address], [facility] Hematocrit (Bld) [Volume fraction] 42.8 % Normal 36.0-45.0 [facility] Comment on above: Performed By: #### 5 3 #### [facility] [address] [place] [address], [facility] Hemoglobin (Bld) [Mass/Vol] 13.7 g/dL Normal 12.0-15.0 [facility] Comment on above: Performed By: #### 5 0103 #### [facility] [address] IMMATURE GRANS 0.1 % Normal 0.0-1.0 [facility] Comment on above: Performed By: #### 5 0103 #### [facility] [address] [place] [address], [facility] Lymphocytes (Bld) [#/Vol] 2.3 10*3/uL Normal 1.2-4.0 [facility] Comment on above: Performed By: #### 5 0103 #### [facility] [address] Lymphocytes/100 WBC (Bld) 30.3 % Normal 20.0-45.0 [facility] Comment on above: Performed By: #### 5 0103 #### [facility] [address] MCH (RBC) [Entitic mass] 26.8 pg Low 27.0-33.0 [facility] Comment on above: Performed By: #### 5 0103 #### [facility] [address] [place] [address], [facility] MCHC (RBC) [Mass/Vol] 32.0 g/dL Normal 32.0-35.0 [facility] Comment on above: Performed By: #### 5 0103 #### [facility] [address] [place] [address], [facility] MCV (RBC) [Entitic vol] 83.6 fL Normal 82.0-98.0 [facility] Comment on above: Performed By: #### 5 0103 #### [facility] [address] [place] [address], [facility] Monocytes (Bld) [#/Vol] 0.7 10*3/uL Normal 0.1-1.0 [facility] Comment on above: Performed By: #### 5 0103 #### [facility] [address] [place] [address], [facility] MONOS 9.2 % Normal 5.0-12.0 [facility] Comment on above: Performed By: #### 5 102 #### [facility] [address] [facility] [place] [address], [facility] Neutrophils/100 WBC (Bld) 55.0 % Normal 40.0-72.0 [facility] Comment on above: Performed By: #### 5 3 #### [facility] [address] [facility] [place] [address], [facility] Nucleated RBC/100 WBC (Bld) [Ratio] 0 % Normal 0-0 [facility] Comment on above: Performed By: #### 5 102 #### [facility] [address] [facility] [place] [address], [facility] PLAT CNT 155 10*3/uL Normal 150-400 [facility] Comment on above: Performed By: #### 5 3 #### [facility] [address] [facility] [place] [address], [facility] RBC (Bld) [#/Vol] 5.12 10*6/uL High 3.80-5.00 [facility] Comment on above: Performed By: #### 5 3 #### [facility] [address] [facility] [place] [address], [facility] WBC (Bld) [#/Vol] 7.68 10*3/uL Normal 4.00-10.60 [facility] Comment on above: Performed By: #### 5 3 #### [facility] [address] [facility] [place] [address], [facility] HEMOGLOBIN A1Con 01-09-2020 HbA1c (Bld) [Mass fraction] 120 mg/dL Normal 70-126 [facility] Comment on above: Performed By: #### 4 6447 #### [facility] [address] [facility]. [address] HbA1c (Bld) [Mass fraction] 5.8 % Normal 4.0-6.0 [facility] Comment on above: Performed By: #### 4 6447 #### [facility] [address] [facility]. [address] RPR (RAPID PLASMA REAGIN)on 01-09-2020 Reagin Ab RPR Ql (S) NON-REACTIVE Normal NON-SEGUNDO CTIV E [facility] Comment on above: Performed By: #### 6 4102 #### [facility] [address] TSH3 WITH REFLEX FT4on 01-08 TSH 3RD GENERATION 2.07 uIU/mL Normal 0.34-5.60 [facility] Comment on above: Performed By: #### 0 0071, 15249, 38416 #### [facility] [address] VITAMIN B12on 01-09-2020 Cobalamin (Vitamin B12) [Mass/Vol] 383 pg/mL Normal 180-914 [facility] Comment on above: Result Comment: REFE RENCE RANGES: 180-914 pg/mL Normal 145-179 pg/mL Indeterminate <145 pg/mL Deficient Performed By: #### 0 0071, 55881, 28759 #### [facility] [address] MR IAC WITH AND WITHOUT CONT RASTon 10-22-2019 1. Possible very thi n osseous covering versus dehiscence of the left superior semicircular canal. This could be further evaluated with noncontrast CT temporal bone if clinically indicated. 2. No evidence of vestibular schwannoma. 3. No acute intracranial process. No acute intracranial hemorrhage, mass, extraaxial fluid collection, acute infarction, or abnormal intracranial enhancement. 4. Very mild periventricular and minimal subcortical white matter as well as mild pontine T2 hyperintensity that is nonspecific and likely due to chronic microangiopathic change. GINI/jcramos Workstation ID: [id number] [facility] EXAMINATION: MR IAC WITH AND WITHOUT CONTRAST HISTORY: ORDERING SYSTEM PROVIDED HISTORY: Dizziness and giddiness, TECHNOLOGIST PROVIDED HISTORY: Illness/Other Reason for exam: vertigo, tinnitus Encounter Type: Subsequent/Follow-up Additional signs and symptoms: ORDERING SYSTEM PROVIDED DIAGNOSIS CODES: R42 Dizziness and giddiness COMPARISON: MRI brain 06/09/2019. TECHNIQUE: Multiplanar, multisequence MRI images of the brain and internal auditory canals were obtained with and without contrast including the following: Axial diffusion, axial T2, axial FLAIR, axial GRE, sagittal T1, and postcontrast axial T1-weighted images of the brain with thin section coronal T1, axial space T2, postcontrast coronal T1 postcontrast axial T1fat saturated images through the internal auditory canals. CONTRAST: GADOTERATE MEGLUMINE 0.5 MMOL/ML (376.9 MG/ML) INTRAVENOUS SOLUTION - 17 mL, FINDINGS: There is minimal periventricular and a few scattered foci of subcortical white matter T2 hyperintense lesions as well as mild pontine T2 hyperintensity that is entirely nonspecific and may be due to chronic microangiopathic change and not significantly changed. There is no acute intracranial hemorrhage, extraaxial fluid collection, midline shift, or mass effect. There is no acute infarction. There is no abnormal susceptibility. There is no abnormal intracranial enhancement. The ventricles, sulci, and cisterns are age-appropriate in size and configuration without hydrocephalus or herniation. The orbits appear normal. There is mild scattered mucosal thickening in the paranasal sinuses. Flow voids are seen within the major intracranial vessels, suggesting their patency. There is hyperostosis frontalis interna. There is normal signal intensity within the vestibulocochlear systems, bilaterally. There is no evidence of inner ear dysplasia. There is no abnormal mass or enhancement within the cerebellopontine angle cisterns, internal auditory canals, or vestibulocochlear systems. The 7th and 8th cranial nerves are unremarkable. 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 [facility] Interface, Rad In Fu ji Speechq - 10/22/2019 5:59 PM EST EXAMINATION: MR IAC WITH AND WITHOUT CONTRAST HISTORY: ORDERING SYSTEM PROVIDED HISTORY: Dizziness and giddiness, TECHNOLOGIST PROVIDED HISTORY: Illness/Other Reason for exam: vertigo, tinnitus Encounter Type: Subsequent/Follow-up Additional signs and symptoms: ORDERING SYSTEM PROVIDED DIAGNOSIS CODES: R42 Dizziness and giddiness COMPARISON: MRI brain 06/09/2019. TECHNIQUE: Multiplanar, multisequence MRI images of the brain and internal auditory canals were obtained with and without contrast including the following: Axial diffusion, axial T2, axial FLAIR, axial GRE, sagittal T1, and postcontrast axial T1-weighted images of the brain with thin section coronal T1, axial space T2, postcontrast coronal T1 postcontrast axial T1fat saturated images through the internal auditory canals. CONTRAST: GADOTERATE MEGLUMINE 0.5 MMOL/ML (376.9 MG/ML) INTRAVENOUS SOLUTION - 17 mL, FINDINGS: There is minimal periventricular and a few scattered foci of subcortical white matter T2 hyperintense lesions as well as mild pontine T2 hyperintensity that is entirely nonspecific and may be due to chronic microangiopathic change and not significantly changed. There is no acute intracranial hemorrhage, extraaxial fluid collection, midline shift, or mass effect. There is no acute infarction. There is no abnormal susceptibility. There is no abnormal intracranial enhancement. The ventricles, sulci, and cisterns are age-appropriate in size and configuration without hydrocephalus or herniation. The orbits appear normal. There is mild scattered mucosal thickening in the paranasal sinuses. Flow voids are seen within the major intracranial vessels, suggesting their patency. There is hyperostosis frontalis interna. There is normal signal intensity within the vestibulocochlear systems, bilaterally. There is no evidence of inner ear dysplasia. There is no abnormal mass or enhancement within the cerebellopontine angle cisterns, internal auditory canals, or vestibulocochlear systems. The 7th and 8th cranial nerves are unremarkable. 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 IMPRESSION: 1. 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 This could be further evaluated with noncontrast CT temporal bone if clinically indicated. 2. No evidence of vestibular schwannoma. 3. No acute intracranial process. No acute intracranial hemorrhage, mass, extraaxial fluid collection, acute infarction, or abnormal intracranial enhancement. 4. Very mild periventricular and minimal subcortical white matter as well as mild pontine T2 hyperintensity that is nonspecific and likely due to chronic microangiopathic change. BDZ/jcramos Workstation ID: [id number] [facility] Basic Metabolic Panelon 05-31 Anion gap [Moles/Vol] 8 mmol/L Low 10 - 2 0 mmol/L [facility] Calcium [Mass/Vol] 9.5 mg/dL 8.4 - 10. 2 mg/dL [facility] Chloride [Moles/Vol] 103 mmol/L 98 - 10 8 mmol/L [facility] Creatinine [Mass/Vol] 1.00 mg/dL 0.6 - 1.2 mg/dL [facility] GFR/1.73 sq M predicted among non-blacks MDRD (S/P/Bld) [Vol rate/Area] The eGFR should be used for monitoring renal function only and not for medication dosing. [facility] GFR/1.73 sq M.predicted CKD-EPI (S/P/Bld) [Vol rate/Area] 59 Low >=60 mL/min/1.73 m2 [facility] Glucose [Mass/Vol] 92 mg/dL 65 - 99 mg/dL [facility] HCO3 [Moles/Vol] 34 mmol/L High 21 - 32 mmol/L [facility] Interpretation and review of laboratory results Abnormal [facility] Potassium [Moles/Vol] 3.7 mmol/L 3.5 - 5.1 mmol/L [facility] Sodium [Moles/Vol] 141 mmol/L 135 - 145 mmol/L [facility] Urea nitrogen [Mass/Vol] 16 mg/dL 8 - 25 mg/dL [facility] Urea nitrogen/Creatinine [Mass ratio] 16.0 mg/mg [facility] CBCon 06-09-2019 Erythrocyte distribution width (RBC) [Entitic vol] 13.1 % 11.6 - 14.8 % [facility] Hematocrit (Bld) [Volume fraction] 42.2 % 36 - 46 % [facility] Hemoglobin (Bld) [Mass/Vol] 13.7 g/dL 12 - 16 g/dL [facility] Interpretation and review of laboratory results Abnormal [facility] MCH (RBC) [Entitic mass] 27.2 pg 26 - 34 pg [facility] MCHC (RBC) [Mass/Vol] 32.5 g/dL 31 - 3 7 g/dL [facility] MCV (RBC) [Entitic vol] 83.7 fL 80 - 100 fL [facility] Nucleated RBC (Bld) [#/Vol] 0.00 10*3/uL [facility] Nucleated RBC/100 WBC (Bld) [Ratio] 0.0 % [facility] Platelet mean volume (Bld) [Entitic vol] 12.0 fL 9 - 15.5 fL [facility] Platelets (Bld) [#/Vol] 146 10*3/uL Low [facility] RBC (Bld) [#/Vol] 5.04 10*6/uL [facility] WBC (Bld) [#/Vol] 7.96 10*3/uL [facility] CRP, Inflammationon 06-09-20 19 CRP [Mass/Vol] mg/L <=10.0 mg/L [facility] Interpretation and review of laboratory results Normal [facility] CT ANGIOGRAM HEAD NECKon No acute intracrania l process. No evidence of arterial occlusion, flow-limiting stenosis, dissection, or aneurysm within the head and neck. Multifocal tortuosity of the vertebrobasilar system as well as the anterior circulation. Postsurgical changes of C5 through T1 anterior fusion with residual hardware components at C7-T1. Mature osseous fusion is evident. Erosive facet arthropathy at the right C4-C5 level is new in the interim, favor adjacent segment disease. Workstation ID: [id number] [facility] EXAMINATION: CT ANGIOGRAM HEAD NECK HISTORY: ORDERING SYSTEM PROVIDED HISTORY: vertigo / nystagmus, TECHNOLOGIST PROVIDED HISTORY: Illness/Other Reason for exam: vertigo / nystagmus Encounter Type: Initial Additional signs and symptoms: vertigo / nystagmus ORDERING SYSTEM PROVIDED DIAGNOSIS CODES: R42 Vertigo R11.2 Non-intractable vomiting with nausea, unspecified vomiting type COMPARISON: Head CT dated 06/08/2019. CT cervical spine dated 09/04/2014. TECHNIQUE: Dose reduction techniques were achieved by using automated exposure control and/or adjustment of mA and/or kV according to patient size and/or use of iterative reconstruction technique. Carotid stenosis was measured utilizing NASCET criteria. 3D volume-rendered images were also created on a separate workstation by the interpreting radiologist and submitted as part of the examination. Contrast enhanced head and neck CT arteriogram was performed. Scanning performed during the arterial phase from the thoracic inlet to the [place]. 3D reconstructions were performed to evaluate vascular anatomy. CONTRAST: IOPAMIDOL 76 % INTRAVENOUS SOLUTION - 75 mL, FINDINGS: BRAIN FINDINGS: Brain Parenchyma: There is no hemorrhage, cerebral edema, mass, mass effect, or midline shift. Ventricles and Sulci:Normal for age. Extra-Axial Spaces: No extra-axial fluid collection. Basal Cisterns: Normal. Other:Normal paranasal sinuses, orbits, and cranium. NECK FINDINGS: Lymph Nodes: No enlarged or abnormal appearing lymph nodes. Suprahyoid Neck: The nasopharynx, oropharynx, oral cavity, parapharyngeal space, and retropharyngeal space are normal. Infrahyoid Neck: The larynx and hypopharynx are normal. Salivary Glands: The parotid and submandibular glands are normal. Thyroid: Normal. Partially Visualized Thorax: The visualized lung apices and upper thorax are unremarkable. Cervical anchors within the bilateral humeral heads on extract mixer radiograph. Cervical Spine: ACDF hardware at the C7-T1 level with interbody disc spacer. The hardware appears intact without periprosthetic lucency or fracture. Additionally, there is postsurgical change from previous C5 through C7 ACDF with interbody disc spacers. Mature osseous fusion is evident at these segments. Erosive facet arthropathy at the right C4-C5 level, new from remote examination. No high-grade spinal canal stenosis suggested. Severe neural foraminal narrowing at the right C4-C5 and left C7-T1 level. Additional multifocal moderate neural foraminal narrowing. VASCULATURE FINDINGS: Arch & Subclavian Arteries: Standard three vessel arch. Subclavian arteries are normal bilaterally. Common Carotids: Patent bilaterally. Tortuosity bilaterally. ICAs: Patent bilaterally to the carotid terminus. Tortuosity of the right greater than left internal carotid arteries. No substantial stenosis. MCAs: Normal bilaterally. ACAs: Normal bilaterally. P-Comms: Not well visualized. Vertebral arteries:Normal to the confluence with the basilar artery. Streak artifact mildly obscures evaluation of the vertebral artery origins. Tortuosity of the cervical segments bilaterally. Basilar artery: Normal. care transition manager: Patent bilaterally. Mild narrowing of the right P2 segment. [facility], Rad In Fu ji Speechq - 06/09/2019 1:25 PM EDT EXAMINATION: CT ANGIOGRAM HEAD NECK HISTORY: ORDERING SYSTEM PROVIDED HISTORY: vertigo / nystagmus, TECHNOLOGIST PROVIDED HISTORY: Illness/Other Reason for exam: vertigo / nystagmus Encounter Type: Initial Additional signs and symptoms: vertigo / nystagmus ORDERING SYSTEM PROVIDED DIAGNOSIS CODES: R42 Vertigo R11.2 Non-intractable vomiting with nausea, unspecified vomiting type COMPARISON: Head CT dated 06/08/2019. CT cervical spine dated 09/04/2014. TECHNIQUE: Dose reduction techniques were achieved by using automated exposure control and/or adjustment of mA and/or kV according to patient size and/or use of iterative reconstruction technique. Carotid stenosis was measured utilizing NASCET criteria. 3D volume-rendered images were also created on a separate workstation by the interpreting radiologist and submitted as part of the examination. Contrast enhanced head and neck CT arteriogram was performed. Scanning performed during the arterial phase from the thoracic inlet to the [place]. 3D reconstructions were performed to evaluate vascular anatomy. CONTRAST: IOPAMIDOL 76 % INTRAVENOUS SOLUTION - 75 mL, FINDINGS: BRAIN FINDINGS: Brain Parenchyma: There is no hemorrhage, cerebral edema, mass, mass effect, or midline shift. Ventricles and Sulci:Normal for age. Extra-Axial Spaces: No extra-axial fluid collection. Basal Cisterns: Normal. Other:Normal paranasal sinuses, orbits, and cranium. NECK FINDINGS: Lymph Nodes: No enlarged or abnormal appearing lymph nodes. Suprahyoid Neck: The nasopharynx, oropharynx, oral cavity, parapharyngeal space, and retropharyngeal space are normal. Infrahyoid Neck: The larynx and hypopharynx are normal. Salivary Glands: The parotid and submandibular glands are normal. Thyroid: Normal. Partially Visualized Thorax: The visualized lung apices and upper thorax are unremarkable. Cervical anchors within the bilateral humeral heads on extract mixer radiograph. Cervical Spine: ACDF hardware at the C7-T1 level with interbody disc spacer. The hardware appears intact without periprosthetic lucency or fracture. Additionally, there is postsurgical change from previous C5 through C7 ACDF with interbody disc spacers. Mature osseous fusion is evident at these segments. Erosive facet arthropathy at the right C4-C5 level, new from remote examination. No high-grade spinal canal stenosis suggested. Severe neural foraminal narrowing at the right C4-C5 and left C7-T1 level. Additional multifocal moderate neural foraminal narrowing. VASCULATURE FINDINGS: Arch & Subclavian Arteries: Standard three vessel arch. Subclavian arteries are normal bilaterally. Common Carotids: Patent bilaterally. Tortuosity bilaterally. ICAs: Patent bilaterally to the carotid terminus. Tortuosity of the right greater than left internal carotid arteries. No substantial stenosis. MCAs: Normal bilaterally. ACAs: Normal bilaterally. P-Comms: Not well visualized. Vertebral arteries:Normal to the confluence with the basilar artery. Streak artifact mildly obscures evaluation of the vertebral artery origins. Tortuosity of the cervical segments bilaterally. Basilar artery: Normal. care transition manager: Patent bilaterally. Mild narrowing of the right P2 segment. IMPRESSION: No acute intracranial process. No evidence of arterial occlusion, flow-limiting stenosis, dissection, or aneurysm within the head and neck. Multifocal tortuosity of the vertebrobasilar system as well as the anterior circulation. Postsurgical changes of C5 through T1 anterior fusion with residual hardware components at C7-T1. Mature osseous fusion is evident. Erosive facet arthropathy at the right C4-C5 level is new in the interim, favor adjacent segment disease. Workstation ID: [id number] [facility] ECHOCARDIOGRAM COMPLETEon REPORT ____ Patient: ANA Catherine [facility] Rec#: [id number] (Age): 1955(64y) Height: 167.64(cm)/65(i Study Date: 06/08/2019 Weight: 81.19(kg)/179(l Room#: BSA: 1.91 Type: Inpatient Loc: Sex: F ____ Reading: Giovana Parker MD Reading: [facility] MISSAEL Parkinson, Distillation Operator Helper: Parisa Downey RDCS Diagnosis: Abnormal EKG (794.31) CPT Code(s): ECHO COMPLETE W/ DOPPLER (43714) Study Quality The study quality is fair. Conclusions: The estimated ejection fraction is 55-60%. The diastolic filling pattern is consistent with impaired relaxation and normal LA pressure (Mild diastolic dysfunction). There is evidence of mild pulmonary hypertension. Findings Left Ventricle: The left ventricular chamber size is normal. There is no left ventricular hypertrophy observed. There are no regional wall motion abnormalities evident. The estimated ejection fraction is 55-60%. The diastolic filling pattern is consistent with impaired relaxation and normal LA pressure (Mild diastolic dysfunction). Global Longitudinal Strain (GLS) reported as -13.5%. Left Atrium: The left atrial chamber size is normal. Right Ventricle: The right ventricular chamber size and systolic function are within normal limits. Right Atrium: The right atrium appears normal. Aortic Valve: The aortic valve is trileaflet. The aortic valve leaflets are mildly thickened. There is no hemodynamically significant stenosis. There is mild aortic regurgitation. Mitral Valve: The mitral valve leaflets appear normal. There is no evidence of mitral regurgitation. Tricuspid Valve: The tricuspid valve leaflets are normal. There is mild physiological regurgitation of the tricuspid valve. The right ventricular systolic pressure is 42.48 mmHg. There is evidence of mild pulmonary hypertension. Pulmonic Valve: The pulmonic valve appears normal. There is trivial physiological regurgitation of the pulmonic valve. Pericardium: There is no pericardial effusion. Aorta: The aorta appears normal. Venous: The inferior vena cava is dilated. HR BP 137/85 Measurements Chambers 2D Name Value Normal Range RVIDd (AP) 2D 2.97 cm none IVSd (2D) 0.99 cm none IVSs (2D) 1.89 cm none LVPWd (2D) 1.01 cm none LVPWs (2D) 1.66 cm none LVIDd (2D) 4.66 cm none LVIDs (2D) 2.95 cm none LV FS (2D) 36.84 % none EF Teichholz (2D) 66.71 % none Ao root diameter (2D) 3.65 cm none LA dimension (AP) 2D 3.5 cm none Volumes/Mass Name Value Normal Range LA ESV SP 4CH (A/L) 32.54 ml none LA ESV SP 2CH (A/L) 44.92 ml none LA ESV BP (A/L) 38.34 ml none LA ESV BP (A/L) index 20 ml/m2 none LA ESV SP 4CH (MOD) 29.47 ml none LA ESV SP 2CH (MOD) 42.41 ml none LV EDV SP 4CH (MOD) 101.75 ml none LV ESV SP 4CH (MOD) 21.68 ml none EF SP 4CH (MOD) 78.69 % none LV EDV SP 2CH (MOD) 65.77 ml none LV ESV SP 2CH (MOD) 25.07 ml none EF SP 2CH (MOD) 61.88 % none LV EDV BP 86.83 ml none LV ESV BP 24.63 ml none BP EF (MOD) 71.64 % none Diastolic/Systolic Function Name Value Normal Range MV E-wave Vmax 0.54 m/sec none MV deceleration time 277.18 msec none MV A-wave Vmax 1.03 m/sec none MV E:A ratio 0.53 ratio (1.1 - 1.5) Aortic Valve Name Value Normal Range AV Vmax 1.21 m/sec (1 - 1.7) AV VTI 28.24 cm none AV peak gradient 6.06 mmHg (Less Than 36) AV mean gradient 3.83 mmHg (Less Than 20) LVOT diameter 2.08 cm (1.7 - 2.5) LVOT Vmax 1.06 m/sec (0.7 - 1.1) LVOT VTI 27.03 cm none LVOT peak gradient 4.47 mmHg none LVOT mean gradient 3.19 mmHg none SV LVOT 91.44 ml none KVNG (continuity Vmax) 2.95 cm2 none KVNG (continuity VTI) 3.24 cm2 none AR PHT 876.25 msec none AR peak gradient 92.9 mmHg none Ascending Ao 3.36 cm none Tricuspid Valve Name Value Normal Range TR Vmax 2.62 m/sec none TR peak gradient 27.48 mmHg none RAP 15 mmHg none RVSP 42.48 mmHg none IVC diameter 2.46 cm none Pulmonic Valve/Qp:Qs Name Value Normal Range PV Vmax 0.82 m/sec (0.6 - 0.9) PV peak gradient 2.7 mmHg none Electronically Signed at 06/09/2019 09:04:27 by: Giovana Parker MD [facility] Interface, Rad In [facility] Xper Echopacs - 06/09/2019 9:05 AM EDT REPORT ____ Patient: ANA Watson Rec#: [id number] (Age): 1955(64y) Height: 167.64(cm)/65(i Study Date: 06/08/2019 Weight: 81.19(kg)/179(l Room#: BSA: 1.91 Type: Inpatient Loc: Sex: F ____ Reading: Giovana Parker MD Reading: [facility] MISSAEL Parkinson, Distillation Operator Helper: Parisa Downey RDCS Diagnosis: Abnormal EKG (794.31) CPT Code(s): ECHO COMPLETE W/ DOPPLER (59851) Study Quality The study quality is fair. Conclusions: The estimated ejection fraction is 55-60%. The diastolic filling pattern is consistent with impaired relaxation and normal LA pressure (Mild diastolic dysfunction). There is evidence of mild pulmonary hypertension. Findings Left Ventricle: The left ventricular chamber size is normal. There is no left ventricular hypertrophy observed. There are no regional wall motion abnormalities evident. The estimated ejection fraction is 55-60%. The diastolic filling pattern is consistent with impaired relaxation and normal LA pressure (Mild diastolic dysfunction). Global Longitudinal Strain (GLS) reported as -13.5%. Left Atrium: The left atrial chamber size is normal. Right Ventricle: The right ventricular chamber size and systolic function are within normal limits. Right Atrium: The right atrium appears normal. Aortic Valve: The aortic valve is trileaflet. The aortic valve leaflets are mildly thickened. There is no hemodynamically significant stenosis. There is mild aortic regurgitation. Mitral Valve: The mitral valve leaflets appear normal. There is no evidence of mitral regurgitation. Tricuspid Valve: The tricuspid valve leaflets are normal. There is mild physiological regurgitation of the tricuspid valve. The right ventricular systolic pressure is 42.48 mmHg. There is evidence of mild pulmonary hypertension. Pulmonic Valve: The pulmonic valve appears normal. There is trivial physiological regurgitation of the pulmonic valve. Pericardium: There is no pericardial effusion. Aorta: The aorta appears normal. Venous: The inferior vena cava is dilated. HR BP 137/85 Measurements Chambers 2D Name Value Normal Range RVIDd (AP) 2D 2.97 cm none IVSd (2D) 0.99 cm none IVSs (2D) 1.89 cm none LVPWd (2D) 1.01 cm none LVPWs (2D) 1.66 cm none LVIDd (2D) 4.66 cm none LVIDs (2D) 2.95 cm none LV FS (2D) 36.84 % none EF Teichholz (2D) 66.71 % none Ao root diameter (2D) 3.65 cm none LA dimension (AP) 2D 3.5 cm none Volumes/Mass Name Value Normal Range LA ESV SP 4CH (A/L) 32.54 ml none LA ESV SP 2CH (A/L) 44.92 ml none LA ESV BP (A/L) 38.34 ml none LA ESV BP (A/L) index 20 ml/m2 none LA ESV SP 4CH (MOD) 29.47 ml none LA ESV SP 2CH (MOD) 42.41 ml none LV EDV SP 4CH (MOD) 101.75 ml none LV ESV SP 4CH (MOD) 21.68 ml none EF SP 4CH (MOD) 78.69 % none LV EDV SP 2CH (MOD) 65.77 ml none LV ESV SP 2CH (MOD) 25.07 ml none EF SP 2CH (MOD) 61.88 % none LV EDV BP 86.83 ml none LV ESV BP 24.63 ml none BP EF (MOD) 71.64 % none Diastolic/Systolic Function Name Value Normal Range MV E-wave Vmax 0.54 m/sec none MV deceleration time 277.18 msec none MV A-wave Vmax 1.03 m/sec none MV E:A ratio 0.53 ratio (1.1 - 1.5) Aortic Valve Name Value Normal Range AV Vmax 1.21 m/sec (1 - 1.7) AV VTI 28.24 cm none AV peak gradient 6.06 mmHg (Less Than 36) AV mean gradient 3.83 mmHg (Less Than 20) LVOT diameter 2.08 cm (1.7 - 2.5) LVOT Vmax 1.06 m/sec (0.7 - 1.1) LVOT VTI 27.03 cm none LVOT peak gradient 4.47 mmHg none LVOT mean gradient 3.19 mmHg none SV LVOT 91.44 ml none KVNG (continuity Vmax) 2.95 cm2 none KVNG (continuity VTI) 3.24 cm2 none AR PHT 876.25 msec none AR peak gradient 92.9 mmHg none Ascending Ao 3.36 cm none Tricuspid Valve Name Value Normal Range TR Vmax 2.62 m/sec none TR peak gradient 27.48 mmHg none RAP 15 mmHg none RVSP 42.48 mmHg none IVC diameter 2.46 cm none Pulmonic Valve/Qp:Qs Name Value Normal Range PV Vmax 0.82 m/sec (0.6 - 0.9) PV peak gradient 2.7 mmHg none Electronically Signed at 06/09/2019 09:04:27 by: Giovana Parker MD [facility] MR BRAIN WITHOUT CONTRASTon 06-09-2019 EXAMINATION: MR RAVIN N WITHOUT CONTRAST HISTORY: ORDERING SYSTEM PROVIDED HISTORY: vertigo, TECHNOLOGIST PROVIDED HISTORY: Illness/Other Reason for exam: vertigo x 2 days, persistent headaches Encounter Type: Initial Additional signs and symptoms: none ORDERING SYSTEM PROVIDED DIAGNOSIS CODES: R42 Vertigo R11.2 Non-intractable vomiting with nausea, unspecified vomiting type COMPARISON: MRI brain, 11/03/2011. CTA head and neck, 06/09/2019. TECHNIQUE: Sagittal and axial T1, axial T2, FLAIR, diffusion, T2 gradient images were obtained. FINDINGS: The paranasal sinuses are clear. The mastoid air cells are clear. Nasopharynx is normal. Fish Packer spaces are normal. Extracranial soft tissue structures are unremarkable. Ventricles are normal in size. No hydrocephalus. No mass effect. No shift of midline. No significant signal abnormalities in the brain. Diffusion images are normal. No acute infarction. No masses. No hemorrhagic lesions. [facility] Interface, Rad In Fu ji Speechq - 06/09/2019 10:54 PM EDT EXAMINATION: MR BRAIN WITHOUT CONTRAST HISTORY: ORDERING SYSTEM PROVIDED HISTORY: vertigo, TECHNOLOGIST PROVIDED HISTORY: Illness/Other Reason for exam: vertigo x 2 days, persistent headaches Encounter Type: Initial Additional signs and symptoms: none ORDERING SYSTEM PROVIDED DIAGNOSIS CODES: R42 Vertigo R11.2 Non-intractable vomiting with nausea, unspecified vomiting type COMPARISON: MRI brain, 11/03/2011. CTA head and neck, 06/09/2019. TECHNIQUE: Sagittal and axial T1, axial T2, FLAIR, diffusion, T2 gradient images were obtained. FINDINGS: The paranasal sinuses are clear. The mastoid air cells are clear. Nasopharynx is normal. Fish Packer spaces are normal. Extracranial soft tissue structures are unremarkable. Ventricles are normal in size. No hydrocephalus. No mass effect. No shift of midline. No significant signal abnormalities in the brain. Diffusion images are normal. No acute infarction. No masses. No hemorrhagic lesions. IMPRESSION: Normal MRI of the brain. Workstation ID: [id number] [facility] Normal MRI of the brain. Workstation ID: [id number] [facility] Sedimentation Rateon 019 ESR (Bld) [Velocity] 13 mm/h [facility] Interpretation and review of laboratory results Normal [facility] CBC WITH AUTO DIFFERENTIALon 06-08-2019 Basophils (Bld) [#/Vol] 0.03 10*3/uL [facility] Basophils/100 WBC (Bld) 0.4 % [facility] Eosinophils (Bld) [#/Vol] 0.25 10*3/uL [facility] Eosinophils/100 WBC (Bld) 3.5 % [facility] Erythrocyte distribution width (RBC) [Entitic vol] 12.8 % 11.6 - 14.8 % [facility] Hematocrit (Bld) [Volume fraction] 40.1 % 36 - 46 % [facility] Hemoglobin (Bld) [Mass/Vol] 13.4 g/dL 12 - 16 g/dL [facility] Immature granulocytes (Bld) [#/Vol] 0.02 10*3/uL [facility] Immature granulocytes/100 WBC (Bld) 0.30 % [facility] Comment on above: The IG parameter is the percentage of metamyelocytes, myelocytes, and promyelocytes. Interpretation and review of laboratory results Abnormal [facility] Lymphocytes (Bld) [#/Vol] 1.80 10*3/uL [facility] Lymphocytes/100 WBC (Bld) 24.9 % [facility] MCH (RBC) [Entitic mass] 27.2 pg 26 - 34 pg [facility] MCHC (RBC) [Mass/Vol] 33.4 g/dL 31 - 3 7 g/dL [facility] MCV (RBC) [Entitic vol] 81.5 fL 80 - 100 fL [facility] Monocytes (Bld) [#/Vol] 0.61 10*3/uL [facility] Monocytes/100 WBC (Bld) 8.4 % [facility] Neutrophils (Bld) [#/Vol] 4.53 10*3/uL [facility] Neutrophils/100 WBC (Bld) 62.5 % [facility] Nucleated RBC (Bld) [#/Vol] 0.00 10*3/uL [facility] Nucleated RBC/100 WBC (Bld) [Ratio] 0.0 % [facility] Platelet mean volume (Bld) [Entitic vol] 12.5 fL 9 - 15.5 fL [facility] Platelets (Bld) [#/Vol] 135 10*3/uL Low [facility] RBC (Bld) [#/Vol] 4.92 10*6/uL [facility] ealth WBC (Bld) [#/Vol] 7.24 10*3/uL [facility] ealth CT HEAD OR BRAIN WITHOUT CON TRASTon 06-08-2019 EXAMINATION: CT HEAD OR BRAIN WITHOUT CONTRAST HISTORY: Injury/Trauma or Illness?:Illness/Other How long have you had these symptoms (acute/chronic)?:Acute dizziness COMPARISON: MRI of the brain examination of November 03, 2011. TECHNIQUE: Noncontrast enhanced CT studies of the head were acquired. Dose reduction techniques were achieved by using automated exposure control and/or adjustment of mA and/or kV according to patient size and/or use of iterative reconstruction technique. FINDINGS: The intracranial midline markers are appropriately positioned and configured. The ventricles and cisterns are normal size for age group. I am not identifying abnormal parenchymal density change, signs of cerebral hemorrhage or hematoma. There is no evidence of acute ischemia. Calvarium and skull base are intact. Middle ear and mastoid cavities are clear. [facility] No evidence of acute intracranial structural abnormality. No cerebral hemorrhage, hematoma or signs of acute ischemia. [employer] Workstation ID: [id number] [facility] Mike, Juan In Chris ji Speechq - 06/08/2019 12:46 PM EDT EXAMINATION: CT HEAD OR BRAIN WITHOUT CONTRAST HISTORY: Injury/Trauma or Illness?:Illness/Other How long have you had these symptoms (acute/chronic)?:Acute dizziness COMPARISON: MRI of the brain examination of November 03, 2011. TECHNIQUE: Noncontrast enhanced CT studies of the head were acquired. Dose reduction techniques were achieved by using automated exposure control and/or adjustment of mA and/or kV according to patient size and/or use of iterative reconstruction technique. FINDINGS: The intracranial midline markers are appropriately positioned and configured. The ventricles and cisterns are normal size for age group. I am not identifying abnormal parenchymal density change, signs of cerebral hemorrhage or hematoma. There is no evidence of acute ischemia. Calvarium and skull base are intact. Middle ear and mastoid cavities are clear. IMPRESSION: No evidence of acute intracranial structural abnormality. No cerebral hemorrhage, hematoma or signs of acute ischemia. [id number] Workstation ID: [id number] [facility] Chem 7on 06-08-2019 Anion gap [Moles/Vol] 8 mmol/L Low 10 - 2 0 mmol/L [facility] Chloride [Moles/Vol] 107 mmol/L 98 - 10 8 mmol/L [facility] Creatinine [Mass/Vol] 0.80 mg/dL 0.6 - 1.2 mg/dL [facility] GFR/1.73 sq M predicted among non-blacks MDRD (S/P/Bld) [Vol rate/Area] The eGFR should be used for monitoring renal function only and not for medication dosing. [facility] GFR/1.73 sq M.predicted CKD-EPI (S/P/Bld) [Vol rate/Area] 77 >=60 mL/min/1.73 m2 [facility] Glucose [Mass/Vol] 115 mg/dL High 65 - 99 mg/dL [facility] HCO3 [Moles/Vol] 30 mmol/L 21 - 32 mmol/L [facility] Interpretation and review of laboratory results Abnormal [facility] Potassium [Moles/Vol] 3.1 mmol/L Low 3.5 - 5.1 mmol/L [facility] Sodium [Moles/Vol] 142 mmol/L 135 - 145 mmol/L [facility] Urea nitrogen [Mass/Vol] 12 mg/dL 8 - 25 mg/dL [facility] Urea nitrogen/Creatinine [Mass ratio] 15.0 mg/mg [facility] ECG 12-LEADon 06-08-2019 Atrial Rate 69 BPM [facility] P Chandler 32 degrees [facility] P-R Interval 166 ms [facility] Q-T Interval 448 ms [facility] QRS Duration 124 ms [facility] QTC Calculation (Bezet) 480 ms [facility] R Chandler -51 degrees [facility] T Chandler 16 degrees [facility] Ventricular Rate 69 BPM [facility] Normal sinus rhythm Left axis deviation Left ventricular hypertrophy with QRS widening Cannot rule out Septal infarct , age undetermined Abnormal ECG When compared with ECG of 10-NOV-2017 00:12, Vent. rate has decreased BY 45 BPM Confirmed by Giovana Parker MD ([id number]) on 06/08/2019 5:23:18 PM [facility] Magnesium Levelon 06-08-2019 Magnesium [Mass/Vol] 1.9 mg/dL 1.6 - 2 .4 mg/dL [facility] Other 06-08-2019 Extra Tube Hold for add-ons. [facility] Comment on above: Auto resulted. Interpretation and review of laboratory results Normal [facility] TROPONINon 06-08-2019 Troponin I.cardiac [Mass/Vol] Normal [facility] Troponin I.cardiac [Mass/Vol] ng/mL <=45 ng/L [facility] TSH with Reflex Free T4on TSH Qn 0.93 m[IU]/L [facility] XR Chest 1 Viewon 06-08-2019 EXAMINATION: XR CHES T PA/AP HISTORY: ORDERING SYSTEM PROVIDED HISTORY: dizziness, TECHNOLOGIST PROVIDED HISTORY: Illness/Other Reason for exam: dizziness Cancer History: NO Surgery, RadiationHistory: NONCANCEROUS NODULE REMOVAL FROM LEFT LUNG Encounter Type: Initial Additional signs and symptoms: nausea ORDERING SYSTEM PROVIDED DIAGNOSIS CODES: COMPARISON: 11/03/2017. FINDINGS: A single, portable, upright frontal view of the chest was obtained. Cardiac silhouette is enlarged, similar to prior exam. ACDF changes are present. There is no pneumothorax, pulmonary vascular congestion, focal airspace consolidation, or pleural effusion. 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 FINDINGS: A single, portable, upright frontal view of the chest was obtained. Cardiac silhouette is enlarged, similar to prior exam. ACDF changes are present. There is no pneumothorax, pulmonary vascular congestion, focal airspace consolidation, or pleural effusion. IMPRESSION: No acute cardiopulmonary disease. RPS/c Workstation ID: [id number] [facility] No acute cardiopulmonary disease. [facility] Workstation ID: [id number] [facility] FOOT RT MIN 3 VIEWon 018 Protein mass conc *FINAL Da te of Service: 08/25/2018 12:34 Adm #: [id number] Dr:CAMRYN SEE Signoff Dr: CAMRYN SEEPROCEDURE: FOOT RT MIN 3 VIEW - AXR 0063REASON FOR EXAM: pain RESULT: CLINICAL HISTORY: Pain for two days COMPARISON: None FINDINGS: Screw is seen within the fourth metatarsal head. Postoperative resection of the fifth metatarsal head is seen. Plantar calcaneal spurring is noted. Remote deformities are seen involving the second and third metatarsal shafts. No fracture or subluxation is identified. The joint spaces are unremarkable. IMPRESSION: No acute fracture or dislocation. This report has been produced using speech recognition. Original Interpreting Physician: CAMRYN SEE MDOriginal Transcribed by/Date: PSCB Aug 25 2018 1:00POriginal Electronically Signed by/Date: CAMRYN SEE MD Aug 25 2018 1:00P Addendum Interpreting Physician: Addendum Transcribed by/Date: NO ADDENDUMAddendum Electronically Signed by/Date: [facility] Basic Metabolic Panelon 05-0 Anion gap 16 mmol/L Invalid Interpretation Code 10 - 20 mmol/L [facility] Bicarbonate (HCO3) 28 mmol/L Invalid Interpretation Code 21 - 32 mmol/L [facility] BUN/Creatinine Ratio 28.6 mg/mg High 10.0 - 20.0 [facility] Calcium 9.0 mg/dL Invalid Interpretation Code 8.4 - 10.2 mg/dL [facility] Chloride 101 mmol/L Invalid Interpretation Code 98 - 108 mmol/L [facility] Creatinine 0.63 mg/dL Invalid Interpretation Code 0.6 - 1.2 mg/dL [facility] eGFR (non-black) 95 mL/min/{1.73_m2} Invalid Interpretation Code >=60 [facility] eGFR (non-black) The eGFR should be used for monitoring renal function only and not for medication dosing. Invalid Interpretation Code [facility] Glucose 176 mg/dL High 65 - 99 mg/dL [facility] Interpretation and review of laboratory results Abnormal Invalid Interpretation Code [facility] Potassium 4.1 mmol/L Invalid Interpretation Code 3.5 - 5.1 mmol/L [facility] Sodium 141 mmol/L Invalid Interpretation Code 135 - 145 mmol/L [facility] Urea nitrogen 18 mg/dL Invalid Interpretation Code 8 - 25 mg/dL [facility] CBCon 02-28-2018 Erythrocytes (RBC) 0.00 K/mcL Invalid Interpretation Code 0.00 - 0.00 [facility] Erythrocytes (RBC) 3.88 M/mcL Low 4.00 - 5.20 [facility] Hematocrit (HCT) 31.1 % Low 36 - 46 % [facility] Hemoglobin (HGB) 10.0 g/dL Low 12 - 16 g/dL [facility] MCH 25.8 pg Low 26 - 34 pg [facility] MCHC 32.2 g/dL Invalid Interpretation Code 31 - 37 g/dL [facility] MCV 80.2 fL Invalid Interpretation Code 80 - 100 fL [facility] Nucleated erythrocytes/100 erythrocytes 0.0 % Invalid Interpretation Code [facility] Platelet mean volume (PMV) 12.7 fL Invalid Interpretation Code 9 - 15.5 fL [facility] Platelets 155 K/mcL Invalid Interpretation Code 150 - 400 [facility] RDW-CA 14.3 % Invalid Interpretation Code 11.6 - 14.8 % [facility] WBC (Leukocytes) 15.84 K/mcL High 4.50 - 11.00 [facility] Type and Screenon 02-27-2018 ABO+Rh group Positive Invalid Interpretation Code [facility] Blood group antibody presence Negative Invalid Interpretation Code [facility] Specimen Expires 03/02/2018 23:59 EST Invalid Interpretation Code [facility] XR Low Pelvis 1-2 Views (PAC U)on 02-27-2018 XR Low Pelvis 1-2 Views (PACU) Interface, Rad In Fuji Speechq - 02/27/2018 6:54 PM EDT EXAMINATION: XR LOW PELVIS 1-2 VIEWS (PACU) HISTORY: ORDERING SYSTEM PROVIDED HISTORY: s/p JUAN, TECHNOLOGIST PROVIDED HISTORY: Reason for exam: s/p right JUAN Illness/Other Cancer History: NO Surgery, RadiationHistory: 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 Bhadhyfj-uh-yzooqvng osteoarthritis in the left hip joint is also present. IMPRESSION: Expected postoperative appearance following total right hip arthroplasty. PD/llc Workstation ID: [id number] Invalid Interpretation Code [employer] [facility] XR Low Pelvis 1-2 Views (PACU) Expected postoperative appearance following total right hip arthroplasty. 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 Uutcpfux-co-owkhwrnn osteoarthritis in the left hip joint is also present. Invalid Interpretation Code [employer] [facility] APTTon 02-17-2018 aPTT Therapeutic range fo r APTT's is 68 - 104 seconds Invalid Interpretation Code [facility] aPTT 27 s Invalid Interpretation Code 23 - 34 [facility] Interpretation and review of laboratory results Normal Invalid Interpretation Code [facility] Basic Metabolic Panelon 01-30 Anion gap 12 mmol/L Invalid Interpretation Code 10 - 20 mmol/L [facility] Bicarbonate (HCO3) 30 mmol/L Invalid Interpretation Code 22 - 34 mmol/L [facility] BUN/Creatinine Ratio 18.8 mg/mg Invalid Interpretation Code 10.0 - 20.0 [facility] Calcium 9.2 mg/dL Invalid Interpretation Code 8.4 - 10.2 mg/dL [facility] Chloride 100 mmol/L Invalid Interpretation Code 98 - 108 mmol/L [facility] Creatinine 0.64 mg/dL Invalid Interpretation Code 0.6 - 1.2 mg/dL [facility] eGFR (non-black) 95 mL/min/{1.73_m2} Invalid Interpretation Code >=60 [facility] eGFR (non-black) The eGFR should be used for monitoring renal function only and not for medication dosing. Invalid Interpretation Code [facility] Glucose 132 mg/dL High 65 - 99 mg/dL [facility] Potassium 3.6 mmol/L Invalid Interpretation Code 3.5 - 5.1 mmol/L [facility] Sodium 138 mmol/L Invalid Interpretation Code 135 - 145 mmol/L [facility] Urea nitrogen 12 mg/dL Invalid Interpretation Code 8 - 25 mg/dL [facility] CBCon 02-17-2018 Erythrocytes (RBC) 4.97 M/mcL Invalid Interpretation Code 4.00 - 5.20 [facility] Erythrocytes (RBC) 0.00 K/mcL Invalid Interpretation Code 0.00 - 0.00 [facility] Hematocrit (HCT) 39.3 % Invalid Interpretation Code 36 - 46 % [facility] Hemoglobin (HGB) 12.9 g/dL Invalid Interpretation Code 12 - 16 g/dL [facility] MCH 26.0 pg Invalid Interpretation Code 26 - 34 pg [facility] MCHC 32.8 g/dL Invalid Interpretation Code 31 - 37 g/dL [facility] MCV 79.1 fL Low 80 - 100 fL [facility] Nucleated erythrocytes/100 erythrocytes 0.0 % Invalid Interpretation Code [facility] Platelet mean volume (PMV) 12.2 fL Invalid Interpretation Code 9 - 15.5 fL [facility] Platelets 183 K/mcL Invalid Interpretation Code 150 - 400 [facility] RDW-CA 13.9 % Invalid Interpretation Code 11.6 - 14.8 % [facility] WBC (Leukocytes) 9.58 K/mcL Invalid Interpretation Code 4.50 - 11.00 [facility] PT/INRon 02-17-2018 Coagulation factor induced.INR assay in platelet poor plasma 0.9 {INR} Invalid Interpretation Code 0.8 - 1.1 [facility] Coagulation tissue factor induced in platelet poor plasma 12.2 s Invalid Interpretation Code 11.8 - 14.3 [facility] INR in blood by coagulation During the induction phase of oral anticoagulation, the INR may not reflect the anticoagulation status of the patient. Therapeutic ranges for INR's are: Most clinical situations: INR 2.0-3.0 Mechanical Prosthetic Valve: INR 2.5-3.5 Critical: INR >5.0 Invalid Interpretation Code [facility] Urinalysison 02-17-2018 Bilirubin, Urine Negative Invalid Interpretation Code Negative [facility] Blood, Urine Small Abnormal Negative [facility] Interpretation and review of laboratory results Abnormal Invalid Interpretation Code [facility] Mucus, Urine Rare Invalid Interpretation Code None Seen, Rare /lpf [facility] Nitrite, Urine Negative Invalid Interpretation Code Negative [facility] Renal Epithelial <1 High 0 - 0 /hpf [facility] Squamous Epithelial <1 Invalid Interpretation Code 0 - 4 /hpf [facility] Transitional Epithelial <1 Invalid Interpretation Code 0 - 1 /hpf [facility] Uric Acid Crystals Rare Abnormal None Seen /hpf [facility] Urine, bacteria in sediment Many Abnormal None Seen /hpf [facility] Urine, clarity Hazy Abnormal Clear [facility] Urine, color Yellow Invalid Interpretation Code Colorless, Yellow [facility] Urine, glucose presence Negative Invalid Interpretation Code Negative mg/dL [facility] Urine, ketones presence Negative Invalid Interpretation Code Negative mg/dL [facility] Urine, leukocyte esterase presence Large Abnormal Negative [facility] Urine, pH 7.0 [pH] Invalid Interpretation Code 5.0 - 7.0 [facility] Urine, protein Negative Invalid Interpretation Code Negative mg/dL [facility] Urine, specific gravity 1.003 1 Low 1.005 - 1.025 [facility] Urine, urobilinogen <2.0 Invalid Interpretation Code <2.0 mg/dL [facility] WBCs, Urine 1 /hpf Invalid Interpretation Code 0 - 5 [facility] Urinalysis Microscopic examination is performed on all urinalysis samples and only positive findings are reported. The test for blood on the chemical analytic portion of urinalysis may also be positive due to hemoglobinuria and myoglobinuria and if red blood cells are present they are quantified by microscopic examination. Invalid Interpretation Code [facility] Urine Aerobic Cultureon 01-30 Bacteria aerobode culture One or more organisms < 10,000 CFU/mL of normal urogenital microbiota. Not processed further. Invalid Interpretation Code [facility] XR FLUOROSCOPY GREATER THAN ONE HOURon 11-08-2017 XR FLUOROSCOPY GREATER THAN ONE HOUR This is an auto finalized result. Please refer to patient chart for further information. information. information. Normal [place] Comment on above: Order Comment: Reaso n for exam?:Lumbar stenosis with neurogenic claudicationInjury/Trauma or Illness?:Illness/OtherHow long have you had these symptoms (acute/chronic)?:ChronicType of Exam?:OngoingAdditional signs and symptoms?:n/aFluoro time in minutes:.09Fluoro dose in mGy?:2.44 XR OR L-SPINE 2-3 VIEWSon XR OR L-SPINE 2-3 VIEWS EXAMINATION:XR OR L-SPINE 2-3 VIEWSHISTORY:ORDERING SYSTEM PROVIDED HISTORY: spine surgery, TECHNOLOGIST PROVIDED HISTORY: Reason for exam: Lumbar stenosis with neurogenic claudicationIllness/Ot herEncounter Type: OngoingAdditional signs and symptoms: n/aFluoro dose in mGy: 2.44ORDERING SYSTEM PROVIDED DIAGNOSIS CODES:COMPARISON:06/29.TECHNIQUE:Fluoro dose in Ka,r mGy: 2.44.Fluoroscopic assistance was provided intraoperatively. Two views were obtained. Total fluoro time 2.44 minutes.FINDINGS:There has been a revision ofa lumbosacral spinal fusion with transpedicular screws L2 through S1. The alignment is satisfactory with degenerative changes and degenerative retrolisthesis of L2 on L3.IMPRESSION:Satisfac tory postoperative changes lumbosacral spine.SARKIS/Jaelyn loja ID: [id number] by: JESSY TILLMAN on TueNov 08, 2017 10:12:51 AM ESTTranscribed by: JOSE R DEVINE on TueNov 08, 2017 10:27:30 AM ESTFinalized by: JESSY TILLMAN on TueNov 08, 2017 10:58:00 AM EST [facility] [place] Comment on above: Order Comment: Reaso n for exam?:Lumbar stenosis with neurogenic claudicationInjury/Trauma or Illness?:Illness/OtherHow long have you had these symptoms (acute/chronic)?:ChronicType of Exam?:OngoingAdditional signs and symptoms?:n/aFluoro time in minutes:.09Fluoro dose in mGy?:2.44 Basic Metabolic Panelon Anion gap 17 mmol/L Invalid Interpretation Code 10 - 20 mmol/L [facility] Bicarbonate (HCO3) 29 mmol/L Invalid Interpretation Code 21 - 32 mmol/L [facility] BUN/Creatinine Ratio 20.3 mg/mg High 10.0 - 20.0 [facility] Calcium 9.8 mg/dL Invalid Interpretation Code 8.4 - 10.2 mg/dL [facility] Chloride 100 mmol/L Invalid Interpretation Code 98 - 108 mmol/L [facility] Creatinine 0.74 mg/dL Invalid Interpretation Code 0.6 - 1.2 mg/dL [facility] eGFR (non-black) 86 mL/min/{1.73_m2} Invalid Interpretation Code >=60 [facility] eGFR (non-black) The eGFR should be used for monitoring renal function only and not for medication dosing. Invalid Interpretation Code [facility] Glucose 94 mg/dL Invalid Interpretation Code 65 - 99 mg/dL [facility] Interpretation and review of laboratory results Abnormal Invalid Interpretation Code [facility] Potassium 4.4 mmol/L Invalid Interpretation Code 3.5 - 5.1 mmol/L [facility] Sodium 142 mmol/L Invalid Interpretation Code 135 - 145 mmol/L [facility] Urea nitrogen 15 mg/dL Invalid Interpretation Code 8 - 25 mg/dL [facility] CBC Auto Differentialon Basophils 0.04 K/mcL Invalid Interpretation Code 0.00 - 0.30 [facility] Basophils/100 leukocytes 0.5 % Invalid Interpretation Code [facility] Eosinophils 0.42 K/mcL Invalid Interpretation Code 0.00 - 0.50 [facility] Eosinophils/100 leukocytes 5.1 % Invalid Interpretation Code [facility] Erythrocytes (RBC) 5.15 M/mcL Invalid Interpretation Code 4.00 - 5.20 [facility] Erythrocytes (RBC) 0.00 K/mcL Invalid Interpretation Code 0.00 - 0.00 [facility] Hematocrit (HCT) 43.5 % Invalid Interpretation Code 36 - 46 % [facility] Hemoglobin (HGB) 14.3 g/dL Invalid Interpretation Code 12 - 16 g/dL [facility] Interpretation and review of laboratory results Normal Invalid Interpretation Code [facility] Lymphocytes 1.83 K/mcL Invalid Interpretation Code 0.90 - 4.00 [facility] Lymphocytes/100 leukocytes 22.1 % Invalid Interpretation Code [facility] MCH 27.8 pg Invalid Interpretation Code 26 - 34 pg [facility] MCHC 32.9 g/dL Invalid Interpretation Code 31 - 37 g/dL [facility] MCV 84.5 fL Invalid Interpretation Code 80 - 100 fL [facility] Monocytes 0.62 K/mcL Invalid Interpretation Code 0.30 - 0.90 [facility] Monocytes/100 leukocytes 7.5 % Invalid Interpretation Code [facility] Neutrophils 5.37 K/mcL Invalid Interpretation Code 1.70 - 7.00 [facility] Neutrophils/100 leukocytes 64.8 % Invalid Interpretation Code [facility] Nucleated erythrocytes/100 erythrocytes 0.0 % Invalid Interpretation Code [facility] Platelet mean volume (PMV) 12.0 fL Invalid Interpretation Code 9 - 15.5 fL [facility] Platelets 173 K/mcL Invalid Interpretation Code 150 - 400 [facility] RDW-CA 13.1 % Invalid Interpretation Code 11.6 - 14.8 % [facility] WBC (Leukocytes) 8.28 K/mcL Invalid Interpretation Code 4.50 - 11.00 [facility] CBC and Differentialon 11-03 Creatinine The following orders were created for panel order CBC and Differential. Procedure Abnormality Status --------- ------ CBC Auto Differential[[id number] ] Normal Final result Please view results for these tests on the individual orders. Invalid Interpretation Code [facility] Work Phone: ECG 12 Leadon 11-03-2017 Atrial Rate 90 BPM Invalid Interpretation Code [id number] P Chandler 31 degrees Invalid Interpretation Code [id number] P-R Interval 152 ms Invalid Interpretation Code [id number] Q-T Interval 374 ms Invalid Interpretation Code [id number] QRS Duration 112 ms Invalid Interpretation Code [id number] QTC Calculation (Bezet) 457 ms Invalid Interpretation Code [id number] R Chandler -54 degrees Invalid Interpretation Code [id number] T Chandler 23 degrees Invalid Interpretation Code [id number] Ventricular Rate 90 BPM Invalid Interpretation Code [id number] ECG 12 Lead Normal sinus rhythm Possible Left atrial enlargement Left axis deviation Incomplete left bundle branch block Left ventricular hypertrophy Abnormal ECG Confirmed by Miguel Mcmullen M.D. ([id number]) on 11/03/2017 3:30:36 PM Invalid Interpretation Code [id number] Type and Screenon 11-03-2017 ABO+Rh group Positive Invalid Interpretation Code [facility] [employer] Blood group antibody presence Negative Invalid Interpretation Code [facility] [employer] Specimen Expires 11/21/2017 23:59 EST Invalid Interpretation Code [facility] [employer] XR CHEST AP/PA AND LATon XR CHEST AP/PA AND LAT EXAMINATION:CHEST 2 VIEWSCOMPARISON:Decemb er , 2014HISTORY:Preadmissi on testing.FINDINGS:The lungs are clear of acute infiltrates. There is a scar in the parahilar left lung with adjacent surgical clips or yosvany. The scarring extends into the left lower lobe. This is all similar to the prior study with no new infiltrates. There has also been anterior discectomy and fusion at the cervicothoracic junction. Surgical suture anchors are seen at the left humeral head. Cardiac silhouette is at the upper range of normal limits in size. There is mild tortuosity of the thoracic aorta. There is an old healed fracture deformity of the posterolateral left 9th rib. Moderate degenerative spondylosis is seen along the thoracic spine.IMPRESSION:Uncha nged chest with no convincing evidence of acute pulmonary disease allowing for chronic scarring in the parahilar left lung extending into the lower lobe.DPZ/dbgWorkstatio n ID: [id number] by: RAY ELAINE on TueNov 03, 2017 4:43:08 PM ESTTranscribed by: JOHN MARTINEZ on TueNov 03, 2017 6:23:36 PM ESTFinalized by: RAY ELAINE on TueNov 03, 2017 6:26:53 PM EST [facility] [place] Comment on above: Order Comment: Reaso n for exam?:patInjury/Trauma or Illness?:Illness/OtherHow long have you had these symptoms (acute/chronic)?:UnknownHistory of cancer?:NOSurgeries, chemotherapy, or radiation?:NONCANCEROUS NODULE REMOVAL FROM LEFT LUNGType of Exam?:UnknownAdditional signs and symptoms?:SOME SOB COPD XR Chest AP/PA and LATon XR Chest AP/PA and LAT Unchanged chest w ith no convincing evidence of acute pulmonary disease allowing for chronic scarring in the parahilar left lung extending into the lower lobe. [email or web address] Workstation ID: [id number] Invalid Interpretation Code [employer] [facility] XR Chest AP/PA and LAT Interface, Rad In [employer] [facility] - 11/03/2017 6:29 PM EST EXAMINATION: CHEST 2 VIEWS COMPARISON: October 22, 2015 HISTORY: Preadmission testing. FINDINGS: The lungs are clear of acute infiltrates. There is a scar in the parahilar left lung with adjacent surgical clips or yosvany. The scarring extends into the left lower lobe. This is all similar to the prior study with no new infiltrates. There has also been anterior discectomy and fusion at the cervicothoracic junction. Surgical suture anchors are seen at the left humeral head. Cardiac silhouette is at the upper range of normal limits in size. There is mild tortuosity of the thoracic aorta. There is an old healed fracture deformity of the posterolateral left 9th rib. Moderate degenerative spondylosis is seen along the thoracic spine. IMPRESSION: Unchanged chest with no convincing evidence of acute pulmonary disease allowing for chronic scarring in the parahilar left lung extending into the lower lobe. [employer] Workstation ID: [id number] Invalid Interpretation Code [employer] [facility] XR Chest AP/PA and LAT EXAMINATION: CHES T 2 VIEWS COMPARISON: October 22, 2015 HISTORY: Preadmission testing. FINDINGS: The lungs are clear of acute infiltrates. There is a scar in the parahilar left lung with adjacent surgical clips or yosvany. The scarring extends into the left lower lobe. This is all similar to the prior study with no new infiltrates. There has also been anterior discectomy and fusion at the cervicothoracic junction. Surgical suture anchors are seen at the left humeral head. Cardiac silhouette is at the upper range of normal limits in size. There is mild tortuosity of the thoracic aorta. There is an old healed fracture deformity of the posterolateral left 9th rib. Moderate degenerative spondylosis is seen along the thoracic spine. Invalid Interpretation Code [employer] [facility] Repor ton 10-12-2017 [facility] Report Type: OrthopedicDictated by: To be signed by: Transcribed by: Transcribed D/ Dictation D/ Report: DATE OF VISIT: 08/31/2017 Re: Matthew Perez HISTORY OF PRESENT ILLNESS: Patient is here today for evaluation of her right knee pain. She has had pain since surgery. It is getting worse. She has also had back pain, hip pain. She has seen a doctor in [place] for this. She has had injections just recently to her hip, which improved some of her right lower extremity and is currently scheduled to have additional back injections with her pain doctor in [place]. She does have a history of a fall but no changes since then. PHYSICAL EXAMINATION: This is an alert, oriented, age appropriate female in no acute distress, pleasant and cooperative; 5 feet 7 inches, 200 pounds, temperature 97.7. Pain 10 on a 10-point scale. The lower extremity was evaluated. Full and supple motion of the knee, 0-130 degrees. Stable examination, no instability. No excessive laxity into flexion or extension. PCL appears to be intact. She does have some irritability with hip flexion to 90 and internal rotation of 5-10, external rotation of 10-20. She has pain with flexion and rotation, reproduction of symptoms, and tenderness over the IT band coursing down the side of the leg. The left hip does improve motion, no pain, no tenderness laterally. IMPRESSION: Status post total knee arthroplasty with symptomatic right hip arthritis, IT tendinitis, and degenerative disc disease. PLAN: I reviewed my findings with Matthew. She is going to continue following up with her back with an area pain management doctor, which I think is her number one priority. She had a hip injection that was ultrasound based out of [facility] about 6 weeks ago, which gave her some type of relief. I am going to add on to that then a prescription for Duexis, physical therapy for the IT band and the right hip, and then I will see her back in the future after her back injection. If at that time the hip continues to be a problem unrelated to the back disease, then can consider arthroplasty for long-term management. At this point, there does not appear to be any evidence of prosthetic implant loosening or migration or anything focal going on in the knee and no clinical findings, the majority of which I believe she is experiencing is referred both from the hip and the back. Normal [facility] MR Lumbar Spine Without Cont [facility] 06-08-2017 MR Lumbar Spine Without Contrast 1. Severe discogenic disease with facet arthropathy and 6 mm retrolisthesis of L2 resulting in moderate effacement thecal sac. 2. Disc bulge and facet arthropathy with bnjv-hg-nepafnxb effacement thecal sac L3-4. 3. Bilateral foraminal stenosis L3-4. 4. Postsurgical changes L4-5 and L5-S1 as described above. [facility] Workstation ID: [id number] [facility] MR Lumbar Spine Without Contrast EXAMINATION: MR LUMBAR SPINE WITHOUT CONTRAST HISTORY: Lumbosacral radiculopathy Dx: M54.17 (Lumbosacral radiculopathy) Reason for exam?:lbp, going down rt leg history of 2 lspine surgery TECHNIQUE: Sagittal T1,T2, STIR, axial T1 and T2-weighted images without contrast performed through the lumbar spine. COMPARISON: MR scan performed 12/13/2008. FINDINGS: Pedicle screws L4-5 and L5-S1 with interbody spacer L4-5 and L5-S1. Severe disc space narrowing L2-3 and L1-2. 6 mm retrolisthesis of L2. Focal Schmorl's node superior endplate of T12. The vertebral bodies and disc spaces are otherwise normal in appearance. The conus lies at L1 and is normal. Modic type 1 degenerative signal L2-3, L3-4. Foraminal narrowing to the left of midline L3-4 and to the right of midline L3-4. L5-S1: Bilateral laminectomy defect. No evidence of thecal sac compression. L4-5: Bilateral laminectomy defect and prominent epidural scar surrounding the thecal sac. No evidence of thecal sac compression. L3-4: Facet hypertrophy, diffuse disc bulge and spur with sshv-wj-zbghjuhb effacement thecal sac. L2-3: Facet arthropathy and diffuse disc bulge with 6 mm retrolisthesis of L2. Prominent epidural fat. The combination results in moderate effacement thecal sac. L1-2: Small left paracentral extruded inferiorly migrating disc fragment without stenosis. T11-12: Left paracentral disc protrusion without stenosis. When compared to the prior examination the postsurgical changes at L4-5 are new. The disc space narrowing L2-3 and L3-4 are new. The extent of stenosis at L2-3 is new. [employer] [facility] MR Lumbar Spine Without Contrast Interface, Rad In Pacs [employer] - 06/08/2017 2:44 PM EDT EXAMINATION: MR LUMBAR SPINE WITHOUT CONTRAST HISTORY: Lumbosacral radiculopathy Dx: M54.17 (Lumbosacral radiculopathy) Reason for exam?:lbp, going down rt leg history of 2 lspine surgery TECHNIQUE: Sagittal T1,T2, STIR, axial T1 and T2-weighted images without contrast performed through the lumbar spine. COMPARISON: MR scan performed 12/13/2008. FINDINGS: Pedicle screws L4-5 and L5-S1 with interbody spacer L4-5 and L5-S1. Severe disc space narrowing L2-3 and L1-2. 6 mm retrolisthesis of L2. Focal Schmorl's node superior endplate of T12. The vertebral bodies and disc spaces are otherwise normal in appearance. The conus lies at L1 and is normal. Modic type 1 degenerative signal L2-3, L3-4. Foraminal narrowing to the left of midline L3-4 and to the right of midline L3-4. L5-S1: Bilateral laminectomy defect. No evidence of thecal sac compression. L4-5: Bilateral laminectomy defect and prominent epidural scar surrounding the thecal sac. No evidence of thecal sac compression. L3-4: Facet hypertrophy, diffuse disc bulge and spur with oqmj-ri-ececpzsr effacement thecal sac. L2-3: Facet arthropathy and diffuse disc bulge with 6 mm retrolisthesis of L2. Prominent epidural fat. The combination results in moderate effacement thecal sac. L1-2: Small left paracentral extruded inferiorly migrating disc fragment without stenosis. T11-12: Left paracentral disc protrusion without stenosis. When compared to the prior examination the postsurgical changes at L4-5 are new. The disc space narrowing L2-3 and L3-4 are new. The extent of stenosis at L2-3 is new. IMPRESSION: 1. Severe discogenic disease with facet arthropathy and 6 mm retrolisthesis of L2 resulting in moderate effacement thecal sac. 2. Disc bulge and facet arthropathy with zjaf-qf-mvwpokoj effacement thecal sac L3-4. 3. Bilateral foraminal stenosis L3-4. 4. Postsurgical changes L4-5 and L5-S1 as described above. [facility] Workstation ID: [id number] [facility] Vital Signs Date Time Vital Sign Value Performing Clinician Facility 06-18-2025 13:34-0400 Body height 157.5 cm Ruiz Alcantar MD Work Phone: [facility] 06-18-2025 13:34-0400 Body mass index (BMI) [Ratio] 30.73 kg/m2 Ruiz Alcantar MD Work Phone: [facility] 06-18-2025 13:34-0400 Body weight 76.2 kg Ruiz Alcantar MD Work Phone: [facility] 05-14-2025 13:40-0400 Body height 157.5 cm Ruiz Alcantar MD Work Phone: [facility] 05-14-2025 13:40-0400 Body mass index (BMI) [Ratio] 32.56 kg/m2 Ruiz Alcantar MD Work Phone: [facility] 05-14-2025 13:40-0400 Body weight 80.74 kg Ruiz Alcantar MD Work Phone: [facility] 04-29-2025 14:01-0400 Body height 157.5 cm Dc Wells MD Work Phone: [facility] 04-29-2025 14:01-0400 Body mass index (BMI) [Ratio] 30.36 kg/m2 Dc Wells MD Work Phone: [facility] 04-29-2025 14:01-0400 Body weight 75.3 kg Dc Welsl MD Work Phone: [facility] 04-29-2025 14:01-0400 Diastolic blood pressure 71 mm[Hg] Dc Wells MD Work Phone: [facility] 04-29-2025 14:01-0400 Heart rate 84 /min Dc Wells MD Work Phone: [facility] 04-29-2025 14:01-0400 SaO2% (BldA) [Mass fraction] 91 % Dc Wells MD Work Phone: [facility] 04-29-2025 14:01-0400 Systolic blood pressure 110 mm[Hg] Dc Wells MD Work Phone: [facility] 02-15-2025 20:04-0400 Diastolic blood pressure 70 mm[Hg] Renetta Mckeon PA-C Work Phone: [facility] 02-15-2025 20:04-0400 Systolic blood pressure 118 mm[Hg] Renetta Mckeon PA-C Work Phone: [facility] 02-15-2025 19:50-0400 Body mass index (BMI) [Ratio] 30.54 kg/m2 Renetta Mckeon PA-C Work Phone: [facility] 02-15-2025 19:50-0400 Body temperature 99 [degF] Renetta Mckeon PA-C Work Phone: [facility] 02-15-2025 19:50-0400 Body weight 75.75 kg Renetta Mckeon PA-C Work Phone: [facility] 02-15-2025 19:50-0400 Heart rate 93 /min Renetta Mckeon PA-C Work Phone: [facility] 02-15-2025 19:50-0400 Respiratory rate 18 /min Renetta Kamla PA-C Work Phone: [facility] 02-15-2025 19:50-0400 SaO2% (BldA) [Mass fraction] 94 % Renetta Mckeon PA-C Work Phone: [facility] 01-21-2025 14:06-0400 Body height 157.5 cm Dilip Mckeon MD Work Phone: [facility] 01-21-2025 14:06-0400 Body mass index (BMI) [Ratio] 31.31 kg/m2 Dilip Mckeon MD Work Phone: [facility] 01-21-2025 14:06-0400 Body weight 77.66 kg Dilip Mckeon MD Work Phone: [facility] 01-21-2025 14:06-0400 Diastolic blood pressure 75 mm[Hg] Dilip Mckeon MD Work Phone: [facility] 01-21-2025 14:06-0400 Heart rate 87 /min Dilip Mckeon MD Work Phone: [facility] 01-21-2025 14:06-0400 SaO2% (BldA) [Mass fraction] 96 % Dilip Mckeon MD Work Phone: [facility] 01-21-2025 14:06-0400 Systolic blood pressure 158 mm[Hg] Dilip Mckeon MD Work Phone: [facility] 09-17-2024 13:29-0500 Body temperature 97.39 [degF] Reji Abraham PT [facility] 09-17-2024 13:29-0500 Diastolic blood pressure 79 mm[Hg] Reji Abraham PT [facility] 09-17-2024 13:29-0500 Heart rate 94 /min Reji Abraham PT [facility] 09-17-2024 13:29-0500 Respiratory rate 16 /min Reji Abraham PT [facility] 09-17-2024 13:29-0500 SaO2% (BldA) [Mass fraction] 95 % Reji Abraham PT [facility] 09-17-2024 13:29-0500 Systolic blood pressure 143 mm[Hg] Reji Abraham PT [facility] 09-03-2024 14:53-0500 Diastolic blood pressure 74 mm[Hg] Rich Newman [employer] [facility] 09-03-2024 14:53-0500 Systolic blood pressure 124 mm[Hg] Rich Newman [employer] [facility] 09-03-2024 14:49-0500 Body temperature 97.3 [degF] Rich Newman [employer] [facility] 09-03-2024 14:49-0500 Heart rate 92 /min Rich Newman [facility] 09-03-2024 14:49-0500 Respiratory rate 16 /min Rich Newman [facility] 09-03-2024 14:49-0500 SaO2% (BldA) [Mass fraction] 95 % Rich Newman [facility] 08-30-2024 14:55-0400 Diastolic blood pressure 30 mm[Hg] Rich Newman [facility] 08-30-2024 14:55-0400 Systolic blood pressure 129 mm[Hg] Rich Newman [facility] 08-30-2024 14:51-0400 Body temperature 97.2 [degF] Rich Newman [facility] 08-30-2024 14:51-0400 Heart rate 82 /min Rich Newman [facility] 08-30-2024 14:51-0400 Respiratory rate 15 /min Rich Newman [facility] 08-30-2024 14:51-0400 SaO2% (BldA) [Mass fraction] 92 % Rich Newman [employer] [facility] 08-27-2024 14:38-0400 Body temperature 97 [degF] Rich Newman [employer] [facility] 08-27-2024 14:38-0400 Diastolic blood pressure 67 mm[Hg] Rich Newman [facility] 08-27-2024 14:38-0400 Heart rate 88 /min Rich Newman [facility] 08-27-2024 14:38-0400 Respiratory rate 16 /min Rich Newman [facility] 08-27-2024 14:38-0400 SaO2% (BldA) [Mass fraction] 96 % [facility] Newman [facility] 08-27-2024 14:38-0400 Systolic blood pressure 108 mm[Hg] [facility] Newman [facility] 08-23-2024 15:34-0400 Body temperature 97.5 [degF] [facility] 08-23-2024 15:34-0400 Diastolic blood pressure 85 mm[Hg] [facility] 08-23-2024 15:34-0400 Heart rate 92 /min [facility] Newman [facility] 08-23-2024 15:34-0400 Respiratory rate 16 /min [facility] Newman [facility] 08-23-2024 15:34-0400 SaO2% (BldA) [Mass fraction] 97 % [facility] 08-23-2024 15:34-0400 Systolic blood pressure 142 mm[Hg] [facility] 08-21-2024 12:03-0400 Body height 167.6 cm Reji Jarad [facility] 08-21-2024 12:03-0400 Body mass index (BMI) [Ratio] 28.89 kg/m2 Reji Jarad [facility] 08-21-2024 12:03-0400 Body temperature 96.21 [degF] Reji Jarad [facility] 08-21-2024 12:03-0400 Body weight 81.19 kg Reji Jarad [facility] 08-21-2024 12:03-0400 Diastolic blood pressure 65 mm[Hg] Reji Jarad [facility] 08-21-2024 12:03-0400 Heart rate 94 /min Reji Jarad [facility] 08-21-2024 12:03-0400 Respiratory rate 16 /min Reji Jarad [facility] 08-21-2024 12:03-0400 SaO2% (BldA) [Mass fraction] 88 % Reji Jarad [facility] 08-21-2024 12:03-0400 Systolic blood pressure 100 mm[Hg] Reji Jarad [facility] 01-04-2024 14:03-0500 Body height 160 cm Jose Fraga MD Work Phone: [facility] Comment on above: patient stated 01-04-2024 14:03-0500 Body mass index (BMI) [Ratio] 32.42 kg/m2 Jose Fraga MD Work Phone: [facility] 01-04-2024 14:03-0500 Body weight 83.01 kg Jose Fraga MD Work Phone: [facility] Comment on above: patient stated 01-04-2024 14:03-0500 Diastolic blood pressure 83 mm[Hg] Jose Fraga MD Work Phone: [facility] 01-04-2024 14:03-0500 Heart rate 95 /min Jose Fraga MD Work Phone: [facility] 01-04-2024 14:03-0500 SaO2% (BldA) [Mass fraction] 93 % Jose Fraga MD Work Phone: [facility] 01-04-2024 14:03-0500 Systolic blood pressure 138 mm[Hg] Jose Fraga MD Work Phone: [facility] 10-28-2023 15:33-0500 Respiratory rate 14 /min Rudolph Gómez MD Work Phone: [facility] 10-28-2023 07:15-0500 Body temperature 97.9 [degF] Rudolph Gómez MD Work Phone: [facility] 10-28-2023 07:15-0500 Diastolic blood pressure 81 mm[Hg] Rudolph Gómez MD Work Phone: [facility] 10-28-2023 07:15-0500 Heart rate 101 /min Rudolph Gómez MD Work Phone: [facility] 10-28-2023 07:15-0500 SaO2% (BldA) [Mass fraction] 95 % Rudolph Gómez MD Work Phone: [facility] 10-28-2023 07:15-0500 Systolic blood pressure 152 mm[Hg] Rudolph Gómez MD Work Phone: [facility] 10-28-2023 05:03-0500 Body mass index (BMI) [Ratio] 32.53 kg/m2 Rudolph Gómez MD Work Phone: [facility] 10-28-2023 05:03-0500 Body weight 83.3 kg Rudolph Gómez MD Work Phone: [facility] 10-25-2023 22:35-0500 Body height 160 cm Rudolph Gómez MD Work Phone: [facility] 09-26-2023 10:35-0500 Body height 160 cm Erika Carmona [employer] Work Phone: [facility] Comment on above: patient reported 09-26-2023 10:35-0500 Body mass index (BMI) [Ratio] 31.35 kg/m2 Erika Carmona [employer] Work Phone: [facility] 09-26-2023 10:35-0500 Body weight 80.29 kg Erika Carmona [employer] Work Phone: [facility] Comment on above: patient reported 09-26-2023 10:35-0500 Diastolic blood pressure 85 mm[Hg] Erika Carmona [employer] Work Phone: [facility] 09-26-2023 10:35-0500 Heart rate 109 /min Erika Carmona [employer] Work Phone: [facility] 09-26-2023 10:35-0500 Systolic blood pressure 135 mm[Hg] Erika Carmona [employer] Work Phone: [facility] 09-15-2023 14:48-0500 Body temperature 97.81 [degF] Tiny Freire RN [facility] 09-15-2023 14:48-0500 Diastolic blood pressure 70 mm[Hg] Tiny Freire RN [facility] 09-15-2023 14:48-0500 Heart rate 98 /min Tiny Freire RN [facility] 09-15-2023 14:48-0500 Respiratory rate 20 /min Tiny Freire RN [facility] 09-15-2023 14:48-0500 SaO2% (BldA) [Mass fraction] 97 % Tiny Freire RN [facility] 09-15-2023 14:48-0500 Systolic blood pressure 134 mm[Hg] Tiny Freire RN [facility] 09-15-2023 13:40-0500 Body temperature 97.2 [degF] Gilbert Chay [facility] 09-15-2023 13:40-0500 Diastolic blood pressure 90 mm[Hg] Gilbert Chay [facility] 09-15-2023 13:40-0500 Heart rate 110 /min Gilbert Chay [facility] 09-15-2023 13:40-0500 Respiratory rate 16 /min Gilbert Chay [facility] 09-15-2023 13:40-0500 SaO2% (BldA) [Mass fraction] 96 % Gilbert Chay [facility] 09-15-2023 13:40-0500 Systolic blood pressure 134 mm[Hg] Gilbert Chay [facility] 09-13-2023 13:18-0500 Body temperature 98.01 [degF] Haider Newman [facility] 09-13-2023 13:18-0500 Diastolic blood pressure 88 mm[Hg] Haider Newman [facility] 09-13-2023 13:18-0500 Heart rate 88 /min Haider Newman [facility] 09-13-2023 13:18-0500 Respiratory rate 18 /min [facility] Newman [facility] 09-13-2023 13:18-0500 SaO2% (BldA) [Mass fraction] 97 % [facility] Trent [facility] 09-13-2023 13:18-0500 Systolic blood pressure 132 mm[Hg] Haider Newman [facility] 09-08-2023 13:53-0500 Body temperature 98.01 [degF] Tiny Freire RN [facility] 09-08-2023 13:53-0500 Diastolic blood pressure 72 mm[Hg] Tiny Freire RN [facility] 09-08-2023 13:53-0500 Heart rate 96 /min Tiny Freire RN [facility] 09-08-2023 13:53-0500 Respiratory rate 18 /min Tiny Freire RN [facility] 09-08-2023 13:53-0500 SaO2% (BldA) [Mass fraction] 97 % Tiny Freire RN [facility] 09-08-2023 13:53-0500 Systolic blood pressure 140 mm[Hg] Tiny Freire RN [facility] 09-08-2023 09:08-0500 Body temperature 98.1 [degF] Haider Newman [facility] 09-08-2023 09:08-0500 Diastolic blood pressure 50 mm[Hg] Haider Newman [employer] [facility] 09-08-2023 09:08-0500 Heart rate 78 /min Haider Newman [facility] 09-08-2023 09:08-0500 Respiratory rate 16 /min Haider Newman PTA [facility] 09-08-2023 09:08-0500 SaO2% (BldA) [Mass fraction] 94 % Haider Newman [facility] 09-08-2023 09:08-0500 Systolic blood pressure 147 mm[Hg] Haider Newman PTA [facility] 09-06-2023 12:33-0500 Body temperature 98.4 [degF] Raya Dimas [facility] 09-06-2023 12:33-0500 Diastolic blood pressure 69 mm[Hg] Raya Dimas [facility] 09-06-2023 12:33-0500 Heart rate 94 /min Raya Dimas [facility] 09-06-2023 12:33-0500 Respiratory rate 17 /min Raya Dimas [facility] 09-06-2023 12:33-0500 SaO2% (BldA) [Mass fraction] 99 % Raya Dimas [facility] 09-06-2023 12:33-0500 Systolic blood pressure 136 mm[Hg] Raya Dimas [facility] 09-05-2023 12:01-0500 Body temperature 97.59 [degF] Rebecca Bonilla [facility] 09-05-2023 12:01-0500 Diastolic blood pressure 60 mm[Hg] Rebecca Tain [facility] 09-05-2023 12:01-0500 Heart rate 94 /min Rebecca Tain [facility] 09-05-2023 12:01-0500 Respiratory rate 18 /min Rebecca Tain [facility] 09-05-2023 12:01-0500 SaO2% (BldA) [Mass fraction] 94 % Rebecca Tain [facility] 09-05-2023 12:01-0500 Systolic blood pressure 110 mm[Hg] [facility] 09-01-2023 10:22-0400 Body temperature 98.1 [degF] Rebecca Bonilla LPN [facility] 09-01-2023 10:22-0400 Diastolic blood pressure 60 mm[Hg] Rebecca Bonilla LPN [facility] 09-01-2023 10:22-0400 Heart rate 88 /min Rebecca Bonilla LPN [facility] 09-01-2023 10:22-0400 Respiratory rate 18 /min Rebecca Bonilla LPN [facility] 09-01-2023 10:22-0400 SaO2% (BldA) [Mass fraction] 97 % Rebecca Bonilla LPN [facility] 09-01-2023 10:22-0400 Systolic blood pressure 110 mm[Hg] Rebecca Bonilla LPN [facility] 09-01-2023 09:00-0400 Body temperature 97.9 [degF] Haider Newman [facility] 09-01-2023 09:00-0400 Diastolic blood pressure 81 mm[Hg] Haider Newman PTA [facility] 09-01-2023 09:00-0400 Heart rate 94 /min Haider Newman PTA [facility] 09-01-2023 09:00-0400 SaO2% (BldA) [Mass fraction] 94 % Haider Newman [facility] 09-01-2023 09:00-0400 Systolic blood pressure 123 mm[Hg] Haider Newman [facility] 08-31-2023 11:19-0400 Body height 160 cm Erika Carmona CNP Work Phone: [facility] 08-31-2023 11:19-0400 Body mass index (BMI) [Ratio] 31.35 kg/m2 Erika Carmona [employer] Work Phone: [facility] 08-31-2023 11:19-0400 Body weight 80.29 kg Erika Carmona [employer] Work Phone: [facility] 08-31-2023 11:19-0400 Diastolic blood pressure 84 mm[Hg] Erika Dhilloner [employer] Work Phone: [facility] 08-31-2023 11:19-0400 Heart rate 97 /min Erika Dhilloner [employer] Work Phone: [facility] 08-31-2023 11:19-0400 Systolic blood pressure 131 mm[Hg] Erika Dhilloner [employer] Work Phone: [facility] 08-29-2023 13:54-0400 Body temperature 97.59 [degF] Raza Prudence PT [facility] 08-29-2023 13:54-0400 Diastolic blood pressure 64 mm[Hg] Raza Prudence PT [facility] 08-29-2023 13:54-0400 Heart rate 96 /min Raza Prudence PT [facility] 08-29-2023 13:54-0400 Respiratory rate 16 /min Raza Prudence PT [facility] 08-29-2023 13:54-0400 SaO2% (BldA) [Mass fraction] 96 % Raza Prudence PT [facility] 08-29-2023 13:54-0400 Systolic blood pressure 124 mm[Hg] Raza Prudence PT [facility] 08-29-2023 13:53-0400 Body temperature 97.2 [degF] Tiny Freire RN [facility] 08-29-2023 13:53-0400 Diastolic blood pressure 64 mm[Hg] Tiny Freire RN [facility] 08-29-2023 13:53-0400 Heart rate 96 /min Tiny Freire RN [facility] 08-29-2023 13:53-0400 Respiratory rate 16 /min Tiny Freire RN [facility] 08-29-2023 13:53-0400 SaO2% (BldA) [Mass fraction] 96 % Tiny Freire RN [facility] 08-29-2023 13:53-0400 Systolic blood pressure 124 mm[Hg] Tiny Freire RN [facility] 08-26-2023 11:10-0400 Body height 160 cm Latricia Roblero RN [facility] 08-26-2023 11:10-0400 Body mass index (BMI) [Ratio] 31.35 kg/m2 Latricia Roblero RN [facility] 08-26-2023 11:10-0400 Body temperature 97.59 [degF] Latricia Roblero RN [facility] 08-26-2023 11:10-0400 Body weight 80.29 kg Latricia Roblero RN [facility] 08-26-2023 11:10-0400 Diastolic blood pressure 64 mm[Hg] Latricia Roblero RN [facility] 08-26-2023 11:10-0400 Heart rate 88 /min Latricia Roblero RN [facility] 08-26-2023 11:10-0400 Respiratory rate 18 /min Latricia Roblero RN [facility] 08-26-2023 11:10-0400 SaO2% (BldA) [Mass fraction] 93 % Latricia Roblero RN [facility] 08-26-2023 11:10-0400 Systolic blood pressure 118 mm[Hg] Latricia Osbaldo RN [facility] 08-04-2023 13:39-0400 Body height 160 cm Katia Sroufe [employer] Work Phone: [facility] 08-04-2023 13:39-0400 Body mass index (BMI) [Ratio] 31.36 kg/m2 Katia Sroufe [employer] Work Phone: [facility] 08-04-2023 13:39-0400 Body weight 80.3 kg Katia Sroufe [employer] Work Phone: [facility] 08-04-2023 13:22-0400 Body temperature 97.5 [degF] Katia Sroufe [employer] Work Phone: [facility] 08-04-2023 13:22-0400 Diastolic blood pressure 63 mm[Hg] Katia Sroufe [employer] Work Phone: [facility] 08-04-2023 13:22-0400 Heart rate 88 /min Katia Sroufe [employer] Work Phone: [facility] 08-04-2023 13:22-0400 SaO2% (BldA) [Mass fraction] 94 % Katia Sroufe [employer] Work Phone: [facility] 08-04-2023 13:22-0400 Systolic blood pressure 111 mm[Hg] Katia Sroufe [employer] Work Phone: [facility] 06-03-2023 14:46-0400 Diastolic blood pressure 76 mm[Hg] Raoul Esposito PT [facility] 06-03-2023 14:46-0400 Heart rate 84 /min Raoul Esposito PT [facility] 06-03-2023 14:46-0400 SaO2% (BldA) [Mass fraction] 91 % Raoul Esposito PT [facility] 06-03-2023 14:46-0400 Systolic blood pressure 124 mm[Hg] Raoul Esposito [facility] 04-22-2023 14:35-0400 Body height 161 cm Zafar Faith DO Work Phone: [facility] 04-22-2023 14:35-0400 Body weight 79.7 kg Zafar Marcell DO Work Phone: [facility] 03-30-2023 13:37-0400 Body height 167.6 cm Raoul Lundy MD Work Phone: [facility] 03-30-2023 13:37-0400 Body mass index (BMI) [Ratio] 29.23 kg/m2 Raoul Lundy MD Work Phone: [facility] 03-30-2023 13:37-0400 Body weight 82.1 kg Raoul Lundy MD Work Phone: [facility] 02-22-2023 09:09-0400 Body height 167.6 cm Raoul Lundy MD Work Phone: [facility] 02-22-2023 09:09-0400 Body mass index (BMI) [Ratio] 29.23 kg/m2 Raoul Lundy MD Work Phone: [facility] 02-22-2023 09:09-0400 Body weight 82.1 kg Raoul Lundy MD Work Phone: [facility] 02-04-2023 12:31-0400 Body height 167.6 cm Raoul Lundy MD Work Phone: [facility] 02-04-2023 12:31-0400 Body mass index (BMI) [Ratio] 29.23 kg/m2 Raoul Lundy MD Work Phone: [facility] 02-04-2023 12:31-0400 Body weight 82.1 kg Raoul Lundy MD Work Phone: [facility] 02-02-2023 09:05-0400 Body height 167.6 cm Yolanda MORALES Work Phone: [facility] 02-02-2023 09:05-0400 Body mass index (BMI) [Ratio] 29.23 kg/m2 Yolanda Perea [employer] TECHNICIAN[employer] Work Phone: [employer] [facility] 02-02-2023 09:05-0400 Body weight 82.1 kg Yolanda Perea AVIONIC TECHNICIAN[employer] Work Phone: [facility] 02-02-2023 09:05-0400 Diastolic blood pressure 99 mm[Hg] Yolanda Perea [employer]IC TECHNICIAN[employer] Work Phone: [facility] 02-02-2023 09:05-0400 Heart rate 102 /min Yolanda Perea [employer]IC TECHNICIAN[employer] Work Phone: [facility] 02-02-2023 09:05-0400 Respiratory rate 16 /min Yolanda Brit [employer]IC TECHNICIAN[employer] Work Phone: [facility] 02-02-2023 09:05-0400 SaO2% (BldA) [Mass fraction] 93 % Yolanda Perea [employer]IC TECHNICIAN[employer] TE[employer] Work Phone: [facility] [employer] [facility] 02-02-2023 09:05-0400 Systolic blood pressure 134 mm[Hg] Yolanda Perea [employer]IC TECHNICIAN[employer] Work Phone: [facility] 01-16-2023 15:02-0400 Body mass index (BMI) [Ratio] 28.73 kg/m2 Christopher Vasquez PA-C Work Phone: [facility] 01-16-2023 15:02-0400 Body temperature 98.2 [degF] Christopher Vasquez PA-C Work Phone: [facility] 01-16-2023 15:02-0400 Body weight 80.74 kg Christopher Vasquez PA-C Work Phone: [facility] 01-16-2023 15:02-0400 Diastolic blood pressure 74 mm[Hg] Christopher Vasquez PA-C Work Phone: [facility] 01-16-2023 15:02-0400 Heart rate 87 /min Christopher Vasquez PA-C Work Phone: [facility] 01-16-2023 15:02-0400 Respiratory rate 16 /min Christopher Vasquez PA-C Work Phone: [facility] 01-16-2023 15:02-0400 SaO2% (BldA) [Mass fraction] 93 % Christopher Vasquez PA-C Work Phone: [facility] Comment on above: PT HAS COPD. 01-16-2023 15:02-0400 Systolic blood pressure 127 mm[Hg] Christopher Vasquez PA-C Work Phone: [facility] 12-27-2022 09:38-0500 Body height 167.6 cm Raoul uLndy MD Work Phone: [facility] 12-27-2022 09:38-0500 Body mass index (BMI) [Ratio] 29.21 kg/m2 Raoul Lundy MD Work Phone: [facility] [facility] 12-27-2022 09:38-0500 Body weight 82.1 kg Raoul Lundy MD Work Phone: [facility] 12-03-2022 13:59-0500 Body height 167.6 cm Raoul Lundy MD Work Phone: [facility] 12-03-2022 13:59-0500 Body mass index (BMI) [Ratio] 29.21 kg/m2 Raoul Lundy MD Work Phone: [facility] 12-03-2022 13:59-0500 Body weight 82.1 kg Raoul Lundy MD Work Phone: [facility] 11-24-2022 14:20-0500 Body height 167.6 cm Shayne Solis DO Work Phone: [facility] 11-24-2022 14:20-0500 Body mass index (BMI) [Ratio] 29.21 kg/m2 Shayne Solis DO Work Phone: [facility] 11-24-2022 14:20-0500 Body weight 82.1 kg Shayne Solis DO Work Phone: [facility] 11-24-2022 14:20-0500 Respiratory rate 18 /min Shayne Solis DO Work Phone: [facility] 10-04-2022 10:13-0500 Body height 167.6 cm Raoul Lundy MD Work Phone: [facility] 10-04-2022 10:13-0500 Body mass index (BMI) [Ratio] 29.21 kg/m2 Raoul Lundy MD Work Phone: [facility] 10-04-2022 10:13-0500 Body weight 82.1 kg Raoul Lundy MD Work Phone: [facility] 07-27-2022 10:31-0400 Body height 167.6 cm Raoul Lundy MD Work Phone: [facility] 07-27-2022 10:31-0400 Body mass index (BMI) [Ratio] 29.21 kg/m2 Raoul Lundy MD Work Phone: [facility] 07-27-2022 10:31-0400 Body weight 82.1 kg Raoul Lundy MD Work Phone: [facility] 07-22-2022 13:13-0400 Body temperature 98.6 [degF] Allie Ray MD Work Phone: [facility] 06-24-2022 13:53-0400 Body height 167.6 cm Raoul Lundy MD Work Phone: [facility] 06-24-2022 13:53-0400 Body mass index (BMI) [Ratio] 30.67 kg/m2 Raoul Lundy MD Work Phone: [facility] 06-24-2022 13:53-0400 Body weight 86.18 kg Raoul Lundy MD Work Phone: [facility] 06-10-2022 09:44-0400 Body height 167.6 cm Raoul Lundy MD Work Phone: [facility] 06-10-2022 09:44-0400 Body mass index (BMI) [Ratio] 30.67 kg/m2 Raoul Lundy MD Work Phone: [facility] 06-10-2022 09:44-0400 Body weight 86.18 kg Raoul Lundy MD Work Phone: [facility] 04-05-2022 15:06-0400 Body height 167.6 cm Jose Fraga MD Work Phone: [facility] 04-05-2022 15:06-0400 Body mass index (BMI) [Ratio] 31.47 kg/m2 Jose Fraga MD Work Phone: [facility] 04-05-2022 15:06-0400 Body weight 88.45 kg Jose Fraga MD Work Phone: [facility] 04-05-2022 15:06-0400 Diastolic blood pressure 85 mm[Hg] Jose Fraga MD Work Phone: [facility] 04-05-2022 15:06-0400 Heart rate 107 /min Jose Fraga MD Work Phone: [facility] 04-05-2022 15:06-0400 SaO2% (BldA) [Mass fraction] 93 % Jose Fraga MD Work Phone: [facility] 04-05-2022 15:06-0400 Systolic blood pressure 155 mm[Hg] Jose Fraga MD Work Phone: [facility] 2022 13:57-0400 Body height 167.6 cm Kristyn Ha MD Work Phone: [facility] 2022 13:57-0400 Body mass index (BMI) [Ratio] 31.47 kg/m2 Kristyn Ha MD Work Phone: [facility] 2022 13:57-0400 Body weight 88.45 kg Kristyn Ha MD Work Phone: [facility] 2022 13:57-0400 Diastolic blood pressure 69 mm[Hg] Kristyn Ha MD Work Phone: [facility] 2022 13:57-0400 Heart rate 101 /min Kristyn Ha MD Work Phone: [facility] 2022 13:57-0400 SaO2% (BldA) [Mass fraction] 91 % Kristyn Ha MD Work Phone: [facility] 2022 13:57-0400 Systolic blood pressure 102 mm[Hg] Kristyn Ha MD Work Phone: [facility] 02-11-2022 09:19-0400 Body temperature 97.3 [degF] Darell Fishman [employer] Work Phone: [facility] 02-11-2022 09:19-0400 Diastolic blood pressure 70 mm[Hg] Darell Fishman [employer] Work Phone: [facility] 02-11-2022 09:19-0400 Heart rate 85 /min Brookesmith Fishman [employer] Work Phone: [facility] 02-11-2022 09:19-0400 Respiratory rate 18 /min Darell Fishman [employer] Work Phone: [facility] 02-11-2022 09:19-0400 Systolic blood pressure 106 mm[Hg] Brookesmith Fishman [employer] Work Phone: [facility] 12-22-2021 13:23-0500 Body height 167.6 cm Jose Fraga MD Work Phone: [facility] 12-22-2021 13:23-0500 Body mass index (BMI) [Ratio] 30.51 kg/m2 Jose Fraga MD Work Phone: [facility] 12-22-2021 13:23-0500 Body weight 85.73 kg Jose Fraga MD Work Phone: [facility] 12-22-2021 13:23-0500 Diastolic blood pressure 95 mm[Hg] Jose Fraga MD Work Phone: [facility] 12-22-2021 13:23-0500 Heart rate 95 /min Jose Fraga MD Work Phone: [facility] 12-22-2021 13:23-0500 SaO2% (BldA) [Mass fraction] 93 % Jose Fraga MD Work Phone: [facility] 12-22-2021 13:23-0500 Systolic blood pressure 159 mm[Hg] Jose Fraga MD Work Phone: [facility] 09-22-2021 15:05-0500 Diastolic blood pressure 89 mm[Hg] Lisa Mcclain [employer] Work Phone: [facility] 09-22-2021 15:05-0500 Heart rate 77 /min Lisa Mcclain CNP Work Phone: [facility] 09-22-2021 15:05-0500 Systolic blood pressure 136 mm[Hg] Lisa Mcclain [employer] Work Phone: [facility] 09-22-2021 15:04-0500 Body height 167.6 cm Lisa Mcclain [employer] Work Phone: [facility] 09-22-2021 15:04-0500 Body mass index (BMI) [Ratio] 30.51 kg/m2 Lisa Mcclain CNP Work Phone: [facility] 09-22-2021 15:04-0500 Body temperature 98.29 [degF] Lisa Mcclain CNP Work Phone: [facility] 09-22-2021 15:04-0500 Body weight 85.73 kg Lisa Mcclain CNP Work Phone: [facility] 09-22-2021 15:04-0500 Respiratory rate 16 /min Lisa Mcclain CNP Work Phone: [facility] 09-22-2021 15:04-0500 SaO2% (BldA) [Mass fraction] 95 % iLsa Mcclain CNP Work Phone: [facility] 09-16-2021 14:50-0500 Body height 167.6 cm Arianna Ng [employer] Work Phone: [facility] 09-16-2021 14:50-0500 Body mass index (BMI) [Ratio] 31.96 kg/m2 Arianna gN CNP Work Phone: [facility] 09-16-2021 14:50-0500 Body weight 89.81 kg Arianna Ng [employer] Work Phone: [facility] 09-16-2021 14:50-0500 Diastolic blood pressure 98 mm[Hg] Arianna Ng [employer] Work Phone: [facility] 09-16-2021 14:50-0500 Heart rate 89 /min Arianna Ng [employer] Work Phone: [facility] 09-16-2021 14:50-0500 SaO2% (BldA) [Mass fraction] 91 % Arianna Ng [employer] Work Phone: [facility] 09-16-2021 14:50-0500 Systolic blood pressure 162 mm[Hg] Arianna Ng [employer] Work Phone: [facility] 06-25-2021 13:06-0400 Body height 167.6 cm Arianna Ng [employer] Work Phone: [facility] 06-25-2021 13:06-0400 Body mass index (BMI) [Ratio] 31.96 kg/m2 Arianna Ng [employer] Work Phone: [facility] 06-25-2021 13:06-0400 Body weight 89.81 kg Arianna Ng CNP Work Phone: [facility] 06-25-2021 13:06-0400 Diastolic blood pressure 75 mm[Hg] Arianna Ng [employer] Work Phone: [facility] 06-25-2021 13:06-0400 Heart rate 110 /min Arianna Ng [employer] Work Phone: [facility] 06-25-2021 13:06-0400 Systolic blood pressure 114 mm[Hg] Arianna Ng [employer] Work Phone: [facility] 06-03-2021 11:24-0400 Diastolic blood pressure 77 mm[Hg] Joes Parrish MD Work Phone: [facility] 06-03-2021 11:24-0400 Systolic blood pressure 121 mm[Hg] Jose Parrish MD Work Phone: [facility] 06-03-2021 11:17-0400 Body height 167.6 cm Jose Parrish MD Work Phone: [facility] 06-03-2021 11:17-0400 Body mass index (BMI) [Ratio] 32.1 kg/m2 Jose Parrish MD Work Phone: [facility] 06-03-2021 11:17-0400 Body weight 90.22 kg Jose Parrish MD Work Phone: [facility] 06-03-2021 11:17-0400 Heart rate 105 /min Jose Parrish MD Work Phone: [facility] 06-03-2021 11:17-0400 Respiratory rate 18 /min Jose Parrish MD Work Phone: [facility] 06-03-2021 11:17-0400 SaO2% (BldA) [Mass fraction] 92 % Jose Parrish MD Work Phone: [facility] 05-18-2021 14:38-0400 Diastolic blood pressure 96 mm[Hg] Keesha Nace DO Work Phone: [facility] 05-18-2021 14:38-0400 Systolic blood pressure 153 mm[Hg] Keesha Nace DO Work Phone: [facility] 05-18-2021 14:37-0400 Body height 167.6 cm Keesha Nace DO Work Phone: [facility] 05-18-2021 14:37-0400 Body mass index (BMI) [Ratio] 32.49 kg/m2 Keesha Nace DO Work Phone: [facility] 05-18-2021 14:37-0400 Body temperature 97.81 [degF] Keesha Nace DO Work Phone: [facility] 05-18-2021 14:37-0400 Body weight 91.31 kg Keesha Nace DO Work Phone: [facility] 05-18-2021 14:37-0400 Heart rate 86 /min Keesha Nace DO Work Phone: [facility] 05-18-2021 14:37-0400 SaO2% (BldA) [Mass fraction] 94 % Keesha Kinsey DO Work Phone: [facility] 04-21-2021 15:44-0400 Body height 167.6 cm Dilip Mckeon MD Work Phone: [facility] 04-21-2021 15:44-0400 Body mass index (BMI) [Ratio] 32.28 kg/m2 Dilip Mckeon MD Work Phone: [facility] 04-21-2021 15:44-0400 Body weight 90.72 kg Dilip Mckeon MD Work Phone: [facility] 04-21-2021 15:44-0400 Diastolic blood pressure 82 mm[Hg] Dilip Mckeon MD Work Phone: [facility] 04-21-2021 15:44-0400 Heart rate 110 /min Dilip Mckeon MD Work Phone: [facility] 04-21-2021 15:44-0400 SaO2% (BldA) [Mass fraction] 92 % Dilip Mckeon MD Work Phone: [facility] Comment on above: room air 04-21-2021 15:44-0400 Systolic blood pressure 127 mm[Hg] Dilip Mckeon MD Work Phone: [facility] 04-20-2021 16:11-0400 Body height 167.6 cm Pablo Mullen MD Work Phone: [facility] 04-20-2021 16:11-0400 Body mass index (BMI) [Ratio] 32.44 kg/m2 Pablo Mullen MD Work Phone: [facility] 04-20-2021 16:11-0400 Body weight 91.17 kg Pablo Mullen MD Work Phone: [facility] 04-20-2021 16:11-0400 Diastolic blood pressure 84 mm[Hg] Pablo Mullen MD Work Phone: [facility] 06-21-2021 16:11-0400 Heart rate 94 /min Pablo Mullen MD Work Phone: [facility] 04-20-2021 16:11-0400 SaO2% (BldA) [Mass fraction] 94 % Pablo Mullen MD Work Phone: [facility] 04-20-2021 16:11-0400 Systolic blood pressure 145 mm[Hg] Pablo Mullen MD Work Phone: [facility] 03-25-2021 13:53-0400 Body height 167.6 cm Arianna Ng CNP Work Phone: [facility] 03-25-2021 13:53-0400 Body mass index (BMI) [Ratio] 32.28 kg/m2 Arianna Ng CNP Work Phone: [facility] 03-25-2021 13:53-0400 Body weight 90.72 kg Arianna Ng CNP Work Phone: [facility] 03-25-2021 13:53-0400 Diastolic blood pressure 96 mm[Hg] Arianna Ng CNP Work Phone: [facility] 03-25-2021 13:53-0400 Heart rate 96 /min Arianna Ng CNP Work Phone: [facility] 03-25-2021 13:53-0400 SaO2% (BldA) [Mass fraction] 93 % Arianna Ng CNP Work Phone: [facility] 03-25-2021 13:53-0400 Systolic blood pressure 150 mm[Hg] Arianna Ng CNP Work Phone: [facility] 03-23-2021 22:15-0400 Diastolic blood pressure 79 mm[Hg] Michael Verdugo MD Work Phone: [facility] 03-23-2021 22:15-0400 Heart rate 114 /min Michael Verdugo MD Work Phone: [facility] 03-23-2021 22:15-0400 Respiratory rate 14 /min Michael Verdugo MD Work Phone: [facility] 03-23-2021 22:15-0400 SaO2% (BldA) [Mass fraction] 94 % Michael Verdugo MD Work Phone: [facility] 03-23-2021 22:15-0400 Systolic blood pressure 148 mm[Hg] Michael Verdugo MD Work Phone: [facility] 03-23-2021 19:34-0400 Body height 167.6 cm Michael Verdugo MD Work Phone: [facility] 03-23-2021 19:34-0400 Body mass index (BMI) [Ratio] 32.28 kg/m2 Michael Verdugo MD Work Phone: [facility] 03-23-2021 19:34-0400 Body temperature 98.1 [degF] Michael Verdugo MD Work Phone: [facility] 03-23-2021 19:34-0400 Body weight 90.72 kg Michael Verdugo MD Work Phone: [facility] 03-14-2021 11:19-0400 Respiratory rate 16 /min Jose Fraga MD Work Phone: [facility] 03-14-2021 07:29-0400 Body temperature 98.01 [degF] Jose Fraga MD Work Phone: [facility] 03-14-2021 07:29-0400 Diastolic blood pressure 88 mm[Hg] Jose Fraga MD Work Phone: [facility] 03-14-2021 07:29-0400 Heart rate 101 /min Jose Fraga MD Work Phone: [facility] 03-14-2021 07:29-0400 SaO2% (BldA) [Mass fraction] 96 % Jose Fraga MD Work Phone: [facility] 03-14-2021 07:29-0400 Systolic blood pressure 127 mm[Hg] Jose Fraga MD Work Phone: [facility] 03-13-2021 09:44-0400 Body height 167.6 cm Jose Fraga MD Work Phone: [facility] 03-13-2021 09:44-0400 Body mass index (BMI) [Ratio] 32.44 kg/m2 Jose Fraga MD Work Phone: [facility] 03-13-2021 09:44-0400 Body weight 91.17 kg Jose Fraga MD Work Phone: [facility] 02-26-2021 14:55-0400 Body height 165.1 cm Kristyn Ha MD Work Phone: [facility] 02-26-2021 14:55-0400 Body mass index (BMI) [Ratio] 34.18 kg/m2 Kristyn Ha MD Work Phone: [facility] 02-26-2021 14:55-0400 Body weight 93.17 kg Kristyn Ha MD Work Phone: [facility] 02-26-2021 14:55-0400 Diastolic blood pressure 64 mm[Hg] Kristyn Ha MD Work Phone: [facility] 02-26-2021 14:55-0400 Heart rate 84 /min Kristyn Ha MD Work Phone: [facility] 02-26-2021 14:55-0400 SaO2% (BldA) [Mass fraction] 93 % Kristyn Ha MD Work Phone: [facility] 02-26-2021 14:55-0400 Systolic blood pressure 97 mm[Hg] Kristyn Ha MD Work Phone: [facility] 02-11-2021 15:17-0400 BMI (Body Mass Index) 33.78 kg/m2 Jose Fraga [facility] 02-11-2021 15:17-0400 Body weight 92.08 kg Jose Fraga [facility] 02-11-2021 15:17-0400 BP Diastolic 92 mm[Hg] Jose Fraga [facility] 02-11-2021 15:17-0400 BP Systolic 170 mm[Hg] Jose Fraga [facility] 02-11-2021 15:17-0400 Height 165.1 cm Jose Fraga [facility] 02-11-2021 15:17-0400 Pulse (Heart Rate) 93 /min Jose Fraga [facility] 02-11-2021 15:17-0400 Pulse Oximetry 93 % Jose Fraga [facility] 12-30-2020 15:10-0500 BMI (Body Mass Index) 33.78 kg/m2 Eyal [facility] 12-30-2020 15:10-0500 Body weight 92.08 kg Eyal [facility] 12-30-2020 15:10-0500 BP Diastolic 100 mm[Hg] [facility] 12-30-2020 15:10-0500 BP Systolic 162 mm[Hg] [facility] 12-30-2020 15:10-0500 Height 165.1 cm [facility] 12-30-2020 15:10-0500 Pulse (Heart Rate) 112 /min [facility] 11-26-2020 14:31-0500 BMI (Body Mass Index) 33.55 kg/m2 Clarissa Luna [facility] 11-26-2020 14:31-0500 Body weight 91.44 kg Clarissaerick Luna [facility] 11-26-2020 14:31-0500 BP Diastolic 91 mm[Hg] [facility] 14:31-0500 BP Systolic 157 mm[Hg] Clarissa Luna [facility] 11-26-2020 14:31-0500 Pulse (Heart Rate) 107 /min [facility] 11-26-2020 14:31-0500 Pulse Oximetry 92 % Clarissa Luna [facility] 11-25-2020 14:29-0500 BP Diastolic 75 mm[Hg] Orin Esposito [facility] 11-25-2020 14:29-0500 BP Systolic 142 mm[Hg] Orin Esposito [facility] 11-25-2020 14:29-0500 Pulse (Heart Rate) 100 /min Orin Esposito [facility] 11-25-2020 14:29-0500 Pulse Oximetry 94 % Orin [facility] 11-24-2020 13:44-0500 BP Diastolic 73 mm[Hg] [facility] 11-24-2020 13:44-0500 BP Systolic 112 mm[Hg] [facility] 11-24-2020 13:44-0500 Pulse (Heart Rate) 105 /min Dylan Savage [facility] 08-28-2020 13:46-0400 BMI (Body Mass Index) 32.53 kg/m2 [facility] 08-28-2020 13:46-0400 Body Temperature 97.81 [degF] [facility] 08-28-2020 13:46-0400 Body weight 88.68 kg [facility] 08-28-2020 13:46-0400 BP Diastolic 82 mm[Hg] [facility] 08-28-2020 13:46-0400 BP Systolic 131 mm[Hg] [facility] 08-28-2020 13:46-0400 Height 165.1 cm [facility] 08-28-2020 13:46-0400 Pulse (Heart Rate) 91 /min [facility] 07-22-2020 14:05-0400 BMI (Body Mass Index) 32.28 kg/m2 [facility] 07-22-2020 14:05-0400 Body weight 90.72 kg [facility] Comment on above: Patient wearing orthotic boot 07-22-2020 14:05-0400 BP Diastolic 93 mm[Hg] [facility] 07-22-2020 14:05-0400 BP Systolic 144 mm[Hg] [facility] 07-22-2020 14:05-0400 Height 167.6 cm [facility] 07-22-2020 14:05-0400 Pulse (Heart Rate) 125 /min [facility] 05-20-2020 13:24-0400 BMI (Body Mass Index) 30.83 kg/m2 [facility] 05-20-2020 13:24-0400 Body weight 86.64 kg [facility] 05-20-2020 13:24-0400 BP Diastolic 73 mm[Hg] [facility] 05-20-2020 13:24-0400 BP Systolic 110 mm[Hg] [facility] 05-20-2020 13:24-0400 Height 167.6 cm [facility] 05-20-2020 13:24-0400 Pulse (Heart Rate) 96 /min Eyal [facility] 05-20-2020 13:24-0400 Pulse Oximetry 93 % Eyal [facility] 12-31-2019 16:22-0500 BP Diastolic 99 mm[Hg] Alana Mi [facility] 12-31-2019 16:22-0500 BP Systolic 164 mm[Hg] Alana Mi [facility] 12-31-2019 16:22-0500 Pulse (Heart Rate) 74 /min Alana Mi [facility] 12-31-2019 16:22-0500 Pulse Oximetry 96 % Alana Mi [facility] 11-27-2019 13:58-0500 BMI (Body Mass Index) 30.28 kg/m2 [facility] 11-27-2019 13:58-0500 Body weight 85.09 kg [facility] 11-27-2019 13:58-0500 BP Diastolic 80 mm[Hg] [facility] 11-27-2019 13:58-0500 BP Systolic 135 mm[Hg] [facility] 11-27-2019 13:58-0500 Height 167.6 cm [facility] 11-27-2019 13:58-0500 Pulse (Heart Rate) 108 /min [facility] 09-25-2019 12:49-0500 BMI (Body Mass Index) 30.83 kg/m2 [facility] 12:49-0500 Body weight 86.64 kg [facility] 09-25-2019 12:49-0500 BP Diastolic 84 mm[Hg] [facility] 09-25-2019 12:49-0500 BP Systolic 126 mm[Hg] [facility] 09-25-2019 12:49-0500 Height 167.6 cm [facility] 07-31-2019 15:37-0400 BMI (Body Mass Index) 29.54 kg/m2 [facility] 07-31-2019 15:37-0400 Body weight 83.01 kg [facility] 07-31-2019 15:37-0400 BP Diastolic 80 mm[Hg] [facility] 07-31-2019 15:37-0400 BP Systolic 138 mm[Hg] Ruby Boucher [facility] 07-31-2019 15:37-0400 Pulse (Heart Rate) 105 /min Ruby Boucher [facility] 07-27-2019 15:04-0400 Diastolic blood pressure 78 mm[Hg] Orin Esposito PT [facility] 07-27-2019 15:04-0400 Heart rate 88 /min Orin Esposito PT [facility] 07-27-2019 15:04-0400 SaO2% (BldA) [Mass fraction] 93 % Orin Esposito PT [facility] 07-27-2019 15:04-0400 Systolic blood pressure 146 mm[Hg] Orin Esposito PT [facility] 06-10-2019 14:50-0400 Respiratory Rate 20 /min Marcelino Blackmon [facility] 06-10-2019 11:11-0400 Body Temperature 98.29 [degF] Marcelino Blackmon [facility] 06-10-2019 11:11-0400 BP Diastolic 91 mm[Hg] Marcelino Blackmon [facility] 06-10-2019 11:11-0400 BP Systolic 123 mm[Hg] Marcelino Blackmon [facility] 06-10-2019 11:11-0400 Pulse (Heart Rate) 78 /min Marcelino Blackmon [facility] 06-10-2019 11:11-0400 Pulse Oximetry 93 % Marcelino Blackmon [facility] 06-09-2019 23:11-0400 BMI (Body Mass Index) 29.21 kg/m2 Marcelino Blackmon [facility] 06-09-2019 23:11-0400 Body weight 82.1 kg Marcelino Blackmon [facility] 06-08-2019 15:31-0400 Height 167.6 cm Marcelino Blackmon [facility] 06-01-2019 11:19-0400 BMI (Body Mass Index) 28.19 kg/m2 Ruby Boucher [facility] 06-01-2019 11:19-0400 Body weight 81.65 kg [facility] 11:19-0400 BP Diastolic 85 mm[Hg] Ruby Boucher [facility] 06-01-2019 11:19-0400 BP Systolic 137 mm[Hg] Ruby Boucher [facility] 06-01-2019 11:19-0400 Height 170.2 cm [facility] 04-[facility] 14:19-0400 BMI (Body Mass Index) 28.19 kg/m2 Ruby Boucher [facility] 04-02-2019 14:19-0400 Body weight 81.65 kg Ruby Boucher [facility] 04-02-2019 14:19-0400 BP Diastolic 71 mm[Hg] Ruby Boucher [facility] 04-02-2019 14:19-0400 BP Systolic 106 mm[Hg] Ruby Boucher [facility] 04-02-2019 14:19-0400 Height 170.2 cm Ruby Boucher [facility] 11-21-2018 13:34-0500 BMI (Body Mass Index) 29.76 kg/m2 Eyal [facility] 11-21-2018 13:34-0500 BP Diastolic 79 mm[Hg] [facility] 11-21-2018 13:34-0500 BP Systolic 124 mm[Hg] [facility] 11-21-2018 13:34-0500 Height 170.2 cm [facility] 11-21-2018 13:34-0500 Weight 86.18 kg Eyal [facility] 09-04-2018 13:27-0500 BMI (Body Mass Index) 30.38 kg/m2 Zac Ovalle [facility] 09-04-2018 13:27-0500 BP Diastolic 85 mm[Hg] Zac Ovalle [facility] 09-04-2018 13:27-0500 BP Systolic 126 mm[Hg] Zac Ovalle [facility] 09-04-2018 13:27-0500 Height 170.2 cm Zac Ovalle [facility] 09-04-2018 13:27-0500 Pulse (Heart Rate) 81 /min Zac Ovalle [facility] 09-04-2018 13:27-0500 Pulse Oximetry 92 % Zac Ovalle [facility] 09-04-2018 13:27-0500 Weight 88 kg Zac Ovalle [facility] 07-05-2018 16:21-0400 BP Diastolic 71 mm[Hg] Amandeep Martinez [facility] 07-05-2018 16:21-0400 BP Systolic 142 mm[Hg] Amandeep Martinez [facility] 07-05-2018 16:21-0400 Pulse (Heart Rate) 82 /min Amandeep Martinez [facility] 03-13-2018 13:07-0400 BMI (Body Mass Index) 31.95 kg/m2 Eyal Duron [facility] 03-13-2018 13:07-0400 BP Diastolic 83 mm[Hg] [facility] 03-13-2018 13:07-0400 BP Systolic 143 mm[Hg] [facility] 03-13-2018 13:07-0400 Height 170.2 cm Eyal [facility] 03-13-2018 13:07-0400 Weight 92.53 kg [facility] 03-13-2018 10:58-0400 BP Diastolic 78 mm[Hg] Bernadette Ordaz [facility] 03-13-2018 10:58-0400 BP Systolic 139 mm[Hg] Bernadette Ordaz [facility] 03-13-2018 10:58-0400 Pulse (Heart Rate) 95 /min Bernadette Ordaz [facility] 03-13-2018 10:58-0400 Pulse Oximetry 95 % Bernadette Ordaz [facility] 02-28-2018 16:32-0400 Respiratory Rate 14 /min [facility] 02-28-2018 15:58-0400 Body Temperature 98.01 [degF] [facility] 02-28-2018 15:58-0400 BP Diastolic 71 mm[Hg] [facility] 02-28-2018 15:58-0400 BP Systolic 125 mm[Hg] [facility] 02-28-2018 15:58-0400 Pulse (Heart Rate) 98 /min [facility] 02-28-2018 15:58-0400 Pulse Oximetry 94 % [facility] 02-27-2018 08:23-0400 BMI (Body Mass Index) 31.97 kg/m2 [facility] 02-27-2018 08:23-0400 Height 170.2 cm [facility] 02-27-2018 08:23-0400 Weight 92.6 kg [facility] 02-17-2018 09:04-0400 BP Diastolic 107 mm[Hg] Ankit Armentaula [facility] 02-17-2018 09:04-0400 BP Systolic 167 mm[Hg] Ankit Kathiula [facility] 02-17-2018 09:04-0400 Pulse (Heart Rate) 111 /min Ankit Marroquin [facility] 02-17-2018 08:32-0400 BMI (Body Mass Index) 31.64 kg/m2 Ankit Marroquin [facility] 02-17-2018 08:32-0400 Body Temperature 97.7 [degF] Ankit Marroquin [facility] 02-17-2018 08:32-0400 Height 170.2 cm Ankit Marroquin [facility] 02-17-2018 08:32-0400 Pulse Oximetry 97 % Ankit Marroquin [facility] 02-17-2018 08:32-0400 Weight 91.63 kg Ankit Mraroquin [facility] 01-02-2018 11:58-0500 BP Diastolic 90 mm[Hg] Raoul Esposito [facility] 01-02-2018 11:58-0500 BP Systolic 148 mm[Hg] Raoul Esposito [facility] 01-02-2018 11:58-0500 Pulse (Heart Rate) 122 /min Raoul Esposito [facility] 11-03-2017 15:00-0500 Body Temperature 97.59 [degF] Miguel Mcmullen [facility] Work Phone: 11-03-2017 15:00-0500 BP Diastolic 85 mm[Hg] Migueljose Leonardoo [facility] Work Phone: 11-03-2017 15:00-0500 BP Systolic 132 mm[Hg] Migueljose Mcmullen [facility] Work Phone: 11-03-2017 15:00-0500 Pulse (Heart Rate) 101 /min Migueljose Mcmullen [facility] Work Phone: 11-03-2017 15:00-0500 Pulse Oximetry 93 % Migueljose Mcmullen [facility] Work Phone: 11-03-2017 14:59-0500 BMI (Body Mass Index) 32.45 kg/m2 Miguel Mcmullen [facility] Work Phone: 11-03-2017 14:59-0500 Height 167.6 cm [facility]: 11-03-2017 14:59-0500 Weight 91.2 kg Miguel Mcmullen [employer] Work Phone: 11-02-2017 13:32-0500 BMI (Body Mass Index) 32.6 kg/m2 Eyal Duron [employer] Work Phone: 11-02-2017 13:32-0500 BP Diastolic 92 mm[Hg] Eyal Duron [employer] Work Phone: 11-02-2017 13:32-0500 BP Systolic 143 mm[Hg] Eyal Duron [employer] Work Phone: 11-02-2017 13:32-0500 Height 167.6 cm Eyal Duron [employer] Work Phone: 11-02-2017 13:32-0500 Weight 91.63 kg Eyal Duron [employer] Work Phone: 09-13-2017 13:21-0500 BMI (Body Mass Index) 33.09 kg/m2 [facility] Work Phone: 09-13-2017 13:21-0500 BP Diastolic 88 mm[Hg] Eyal Duron [employer] Work Phone: 09-13-2017 13:21-0500 BP Systolic 135 mm[Hg] Eyal Duron [employer] Work Phone: 09-13-2017 13:21-0500 Height 167.6 cm [facility] Work Phone: 09-13-2017 13:21-0500 Weight 92.99 kg Eyal Duron [employer] Work Phone: 07-18-2017 15:10-0400 BMI (Body Mass Index) 32.12 kg/m2 Eyal Duron [employer] Work Phone: 07-18-2017 15:10-0400 BP Diastolic 84 mm[Hg] Eyal Duron [employer] Work Phone: 07-18-2017 15:10-0400 BP Systolic 133 mm[Hg] Eyal [employer] [facility] Work Phone: 07-18-2017 15:040 Height 167.6 cm Eyalscenios [facility] Work Phone: 07-18-2017 15:-0400 Weight 90.27 kg Eyalscenios [facility] Work Phone: Encounters Encounter Date Encounter Type Care Provider Facility Start: 08-06-2025 End: 08-06-2025 Orders Only Ruiz Alcantar MD Work Phone: [facility] G[facility] Comment on above: Screening and evaluation for female ster ilization (Primary Dx) Start: 06-20-2025 End: 06-20-2025 Transcribe Orders Amandeep Maddox MA [facility] Rhe[facility] Comment on above: Arthritis (Primary Dx) Start: 06-18-2025 End: 06-18-2025 ambulatory [facility] Start: 06-18-2025 End: 06-18-2025 Office outpatient visit 5 minutes Ruiz Alcantar MD Work Phone: [facility] Comment on above: Nausea (Primary Dx); Encounter for screening colonoscopy; Screening for colon cancer Start: 06-10-2025 End: 06-10-2025 Refill Ruiz Alcantar MD Work Phone: [facility] Comment on above: Nausea Start: 06-07-2025 End: 08-07-2025 Follow-up encounter Ruiz Alcantar MD Work Phone: [facility] Comment on above: Tissue Exam Start: 06-05-[address] [facility] Start: 06-05-2025 End: 06-05-[address] [facility] Start: 05-30-2025 End: 07-30-2025 Follow-up encounter Ruiz Alcantar MD Work Phone: [facility] Comment on above: US Abdomen Limited Study Start: 05-30-2025 End: 05-30-2025 [facility] Start: 05-24-2025 End: 07-24-2025 Follow-up encounter Delmi Hernandez MA [facility] Comment on above: Echocardiogram complete Start: 05-16-2025 End: 05-16-2025 ambulatory DC WELLS [facility] Start: 05-14-2025 End: 05-14-2025 ambulatory BHANU BRICE [facility] Start: 05-14-2025 End: 05-14-2025 Office outpatient new 30 minutes Ruiz Alcantar MD Work Phone: [facility] G[facility] Comment on above: Nausea (Primary Dx); Early satiety; Hypertension, unspecified type; Restless leg syndrome Start: 04-29-2025 End: 04-29-2025 Office outpatient new 45 minutes Bhanu Brice MD Work Phone: [facility] Comment on above: Essential hypertension, malignant (Prima ry Dx); Heart failure, unspecified HF chronicity, unspecified heart failure type (HCC) Start: 04-29-2025 End: 04-29-2025 ambulatory BHANU BRICE [facility] Start: 04-25-2025 End: 04-25-2025 ambulatory HARMONY GEE Work Phone: -Radiology [facility] Start: 04-25-2025 End: 04-25-[address] Con Farr MD -Radiology [facility] Work Phone: Start: 04-25-2025 End: 04-25-2025 ambulatory [facility] Facility:[facility] Start: 04-23-2025 End: 04-23-2025 Transcribe Orders Shayne Solis DO Work Phone: [facility] Orth[facility] Comment on above: Bilateral arm pain (Primary Dx) Start: 04-17-2025 End: 04-17-2025 Transcribe Orders Corinne Kellogg MA [facility] G[facility] Comment on above: Early satiety (Primary Dx) Start: 04-12-2025 End: 04-12-2025 ambulatory [facility] Start: 04-09-2025 End: 04-09-2025 Transcribe Orders Viviane Uribe MA [facility] Comment on above: Heart failure, unspecified HF chronicity , unspecified heart failure type (HCC) (Primary Dx) Start: 02-15-2025 End: 02-15-2025 General physical finding Renetta [employer] Work Phone: [facility] Work Phone: Start: 02-15-2025 End: 02-15-2025 Office outpatient visit 15 minutes Renetta Mckeon PA-C Work Phone: [facility] [place] Comment on above: Normal exam (Primary Dx) Start: 02-15-2025 End: 02-15-2025 ambulatory [facility] Start: 02-15-2025 End: 02-15-2025 Encounter for general adult medical examination without abnormal findings RENETTA MCKEON [facility] Start: 01-21-2025 End: 01-21-2025 Office outpatient new 30 minutes Harmony Gee MD Work Phone: [facility] Pulmonary Comment on above: Sleep disorder breathing Start: 01-21-2025 End: 01-21-2025 ambulatory DILIP MCKEON [facility] Start: 12-31-[address] [facility] Start: 12-31-2024 End: 12-31-[address] [facility] Start: 09-17-2024 End: 09-17-2024 Home visit Reji Abraham PT [facility] Comment on above: PT OASIS DISCHARGE Start: 09-12-2024 End: 09-12-2024 Home visit Haider Newman [employer] CAPTAIN MARINE [facility] Comment on above: CASE COMMUNICATION Start: 09-05-2024 End: 09-05-2024 Home visit Haider Newman PTA [facility] Comment on above: CASE COMMUNICATION Start: 09-03-2024 End: 09-03-2024 Home visit Haider Newman PTA [facility] Comment on above: FIRE CAPTAIN MARINE ROUTINE VISIT Start: 08-30-2024 End: 08-30-2024 Home visit Haider Newman PTA [facility] Comment on above: FIRE CAPTAIN MARINE ROUTINE VISIT Start: 08-27-2024 End: 08-27-2024 Home visit Haider Newman PTA [facility] Comment on above: FIRE CAPTAIN MARINE ROUTINE VISIT Start: 08-24-2024 End: 08-24-2024 Home visit Jaymie Durant Andriycharli [facility] Home [facility] Comment on above: CASE COMMUNICATION Start: 08-23-2024 End: 08-23-2024 Home visit Haider Newman PTA [facility] Comment on above: FIRE CAPTAIN MARINE ROUTINE VISIT Start: 08-21-2024 End: 08-21-2024 Home visit Reji Abraham PT [facility] Comment on above: PT OASIS START OF CARE Start: 08-12-2024 End: 09-17-2024 ambulatory [facility] Start: 08-06-2024 End: 08-14-2024 Evaluation and management of inpatient [facility] Start: 08-05-2024 End: 08-06-2024 Emergency department patient visit FERNANDOENID DAVIS [facility] Start: 07-13-2024 End: 07-13-2024 ambulatory [facility] Facility:[facility] Start: 04-11-2024 Telephone encounter Claudia Li MD Work Phone: Gastroenterolgy Comment on above: Appointment Start: 03-14-2024 Orders Only Giacomo Vanessa MD Work Phone: Orthopaedics Comment on above: Left shoulder pain, unspecified chronici ty (Primary Dx) Start: 01-05-2024 End: 01-05-2024 ambulatory Selene Miller [facility] Physical Therapy Comment on above: Abnormality of gait (Primary Dx); Debility; Pleuritic chest pain Start: 01-04-2024 End: 01-04-2024 Office outpatient visit 15 minutes Jose Fraga MD Work Phone: [facility] Spine Surgery Comment on above: Status post lumbar spinal fusion (Primar y Dx) Start: 12-16-2023 End: 12-16-2023 ambulatory Harmony Gee MD Work Phone: [facility] Physical Therapy Comment on above: Abnormality of gait; Debility; Pleuritic chest pain Start: 12-15-2023 Transcribe Orders Provider Not In System [facility], Neuroscience Comment on above: Tinnitus, unspecified laterality (Primar y Dx); Chronic migraine without aura without status migrainosus, not intractable; Restless legs; Neuropathy Start: 12-13-2023 End: 12-13-2023 ambulatory [facility] Work Phone: Start: 12-13-2023 End: 12-13-2023 Patient encounter procedure [facility]-Radiology, [facility] Work Phone: Start: 11-29-2023 Transcribe Orders Harmony Gee MD Work Phone: [facility] Physical Therapy Comment on above: Abnormality of gait (Primary Dx); Debility; Pleuritic chest pain Start: 10-25-2023 End: 10-28-2023 Evaluation and management of inpatient Luna Carson MD Work Phone: [address] Start: 09-27-2023 Orders Only Erika Carmona [employer] Work Phone: [facility] Spine Surgery Comment on above: PE (pulmonary thromboembolism) (HCC) (Pr imary Dx) Start: 09-26-2023 End: 09-26-2023 Office outpatient visit 15 minutes Erika Carmona CNP Work Phone: [facility] Sp[facility] Comment on above: Status post lumbar spinal fusion T10-L2 08/18/23 (Primary Dx) Start: 09-15-2023 End: 09-15-2023 Orders Only Erika Carmona [employer] Work Phone: [facility] Spine Surgery Comment on above: Fracture of vertebra due to osteoporosis , initial encounter ([facility]) (Primary Dx) SN HH NON-OASIS/DISC IPLINE DC PT NON-OASIS/DISCIPL INE DISCHARGE SN HH OASIS DISCHARG E Start: 09-15-2023 End: 09-15-2023 Home visit Gilbert Cartwright [facility] Comment on above: FIRE CAPTAIN MARINE ROUTINE VISIT Start: 09-13-2023 End: 09-13-2023 Orders Only Jose Fraga MD Work Phone: [facility] Spine Surgery Comment on above: S/P lumbar fusion (Primary Dx); Acute bilateral low back pain without sciatica FIRE CAPTAIN MARINE ROUTINE VISIT Start: 09-08-2023 End: 09-08-2023 Home visit Haider Newman [facility] Comment on above: FIRE CAPTAIN MARINE ROUTINE VISIT SN ROUTINE VISIT Start: 09-06-2023 End: 09-06-2023 Home visit Raya Dimas OT [facility] Comment on above: OT INITIAL EVALUATION/DISCIPLINE DISCHAR GE Start: 09-05-2023 End: 09-05-2023 Home visit Rebecca Bonilla [facility] Comment on above: MOTOR BOSS ROUTINE Start: 09-01-2023 End: 09-01-2023 Home visit Rebecca Bonilla [facility] Comment on above: MOTOR BOSS ROUTINE Start: 09-01-2023 End: 09-01-2023 Home visit Haider Newman [facility] Comment on above: FIRE CAPTAIN [employer]INE ROUTINE VISIT Start: 08-31-2023 End: 08-31-2023 Postop follow up visit related to original px Erika Carmona CNP Work Phone: [facility] Spine Surgery Comment on above: Status post lumbar spinal fusion T10-L2 08/18/23 (Primary Dx) Start: 08-30-2023 Orders Only Erika Carmona CNP Work Phone: [facility] Spine Surgery Comment on above: PE (pulmonary thromboembolism) ([facility]) Start: 08-29-2023 End: 08-29-2023 Home visit Tiny Freire RN [facility] Comment on above: SN ROUTINE VISIT Start: 08-29-2023 End: 08-29-2023 Home visit Raza Foss PT [facility] Comment on above: PT INITIAL EVALUATION Start: 08-26-2023 End: 08-26-2023 Home visit Latricia Roblero RN [facility] Comment on above: SN HH OASIS START OF CARE Start: 08-25-2023 Orders Only Erika Landis Carmona [employer] Work Phone: [facility] Spine Surgery Comment on above: PE (pulmonary thromboembolism) (HCC) (Pr imary Dx) Start: 08-18-2023 End: 08-18-2023 Anesthesia consultation Ray Chapman CRNA Work Phone: [facility] Periop Start: 08-04-2023 End: 08-04-2023 Admission to establishment Jose Fraga MD Work Phone: [facility] Start: 08-04-2023 End: 08-04-2023 Office outpatient visit 25 minutes Jose Fraga MD Work Phone: [facility] Preadmission Testing Comment on above: Encounter for preadmission testing (Prim elicia Dx); Preop examination Start: 08-04-2023 End: 08-04-2023 Preprocedural examination done Jose Fraga MD Work Phone: [facility] Start: 07-07-2023 Orders Only Jose Fraga MD Work Phone: [facility] Spine Surgery Comment on above: Displacement of thoracic intervertebral disc without myelopathy (Primary Dx); Pseudoclaudication syndrome; S/P lumbar fusion; Preop examination; Pre-operative cardiovascular examination Start: 07-07-2023 Patient encounter status Jose Fraga MD Work Phone: [facility] Start: 07-07-2023 Preprocedural examination done Jose Fraga MD Work Phone: [facility] Start: 06-28-2023 Transcribe Orders Melodie Allen MD Work Phone: [facility] Central Scheduling Comment on above: Essential hypertension, malignant (Prima ry Dx) Start: 06-21-2023 End: 06-21-2023 ambulatory Jaymie Arredondo [facility] Start: 06-21-2023 End: 06-21-2023 Patient encounter procedure Harmony Gee MD Work Phone: [facility] Comment on above: Lumbar pain (Primary Dx); Left hip pain Start: 06-08-2023 End: 06-08-2023 ambulatory Jaymie Arredondo [facility] Start: 06-08-2023 End: 06-08-2023 Patient encounter procedure Harmony Gee MD Work Phone: [facility] Comment on above: Lumbar pain (Primary Dx); Left hip pain Start: 06-03-2023 End: 06-03-2023 ambulatory Provider Not In System [facility] Physical Therapy Comment on above: Radiculopathy, lumbar region; Osteoarthritis of left hip, unspecified osteoarthritis type Start: 06-02-2023 Orders Only Irma Matute CNP Work Phone: [facility] Provider Hospitalist Comment on above: Superficial vein thrombosis (Primary Dx) Start: 05-02-2023 Transcribe Orders Allie Thomas [facility] Physical Therapy Comment on above: Radiculopathy, lumbar region (Primary Dx ); Osteoarthritis of left hip, unspecified osteoarthritis type Start: 04-29-2023 Telephone encounter Zafar Faith DO Work Phone: Orthopaedics Comment on above: Order - PT Start: 04-22-2023 End: 04-22-2023 Patient encounter procedure Zafar Faith DO Work Phone: Orthopaedics Comment on above: Radiculopathy of lumbar region (Primary Dx); Primary osteoarthritis of left hip; Sacroiliitis (HCC); Intermittent claudication (HCC) Start: 04-22-2023 End: 04-22-2023 ambulatory DAVID SQUIRESDY Facility:[facility] Start: 04-22-2023 End: 04-22-2023 Subsequent hospital visit by physician Vikki [facility] L[facility] Work Phone: Radiology Comment on above: Pain [R52] Start: 04-18-2023 End: 04-18-2023 ambulatory GIACOMO VANESSA Facility:[facility] Start: 04-18-2023 End: 04-18-2023 Patient encounter procedure Giacomo Vanessa MD Work Phone: Orthopaedics Comment on above: Ulnar deviation of fingers of both hands (Primary Dx); Extensor tendon dislocation, nontraumatic, hand, right Start: 04-05-2023 ambulatory HARMONY [facility]ALLSOHAIL[facility] Start: 03-30-2023 [facility]ulatory [facility] Start: 03-30-2023 End: 03-30-2023 Subsequent hospital visit by physician Raoul Lundy MD Work Phone: [facility] Procedure Images Comment on above: Arrived Start: 03-30-2023 End: 03-30-2023 Patient encounter procedure Raoul Lundy MD Work Phone: [facility] Comment on above: Osteoarthritis of both sacroiliac joints (Primary Dx); Pain of both sacroiliac joints Start: 02-22-[address] [facility] Start: 02-22-2023 End: 02-22-2023 Office outpatient visit 15 minutes Raoul Lundy MD Work Phone: [facility] Comment on above: Osteoarthritis of both sacroiliac joints (Primary Dx); Pain of both sacroiliac joints; Status post lumbar spinal fusion; Meralgia paresthetica of left side; Rotator cuff arthropathy of left shoulder; Nontraumatic subluxation of extensor tendon at metacarpophalangeal joint of right hand; Primary osteoarthritis of left hip Start: 02-14-2023 ambulatory S[facility] SALAZARMA [facility] Start: 02-11-2023 ambulatory HARMONY GEE [facility] Start: 02-04-2023 ambulatory SALLY GALLEGO [facility] Start: 02-04-2023 End: 02-04-2023 Patient encounter procedure Raoul Lundy MD Work Phone: [facility] Medicine Comment on above: Meralgia paresthetica of left side (Prim elicia Dx); Osteoarthritis of both sacroiliac joints Start: 02-04-2023 End: 02-04-2023 Subsequent hospital visit by physician Raoul Lundy MD Work Phone: [facility] Procedure Images Comment on above: Arrived Start: 02-02-2023 [facility] Start: 02-02-2023 End: 02-02-2023 Office outpatient visit 15 minutes Jose Nicolas MD Work Phone: [facility] Medicine Comment on above: Segmental and somatic dysfunction of sac ral region (Primary Dx); Pain of both sacroiliac joints; [place]-neck deformity of finger of both hands Start: 01-16-2023 End: 01-16-2023 Patient encounter procedure Pop Ovalle PA-C Work Phone: [facility] [place] Comment on above: Pain of finger of right hand (Primary Dx ); Nonintractable episodic headache, unspecified headache type Start: 12-27-[address] [facility] Start: 12-27-2022 End: 12-27-2022 Office outpatient visit 25 minutes Raoul Lundy MD Work Phone: [facility] Comment on above: Rotator cuff arthropathy of left shoulde r (Primary Dx); Osteoarthritis of both sacroiliac joints; Pain of both sacroiliac joints Start: 12-03-2022 ambulatory [facility] Start: 12-03-2022 End: 12-03-2022 Subsequent hospital visit by physician Raoul Lundy MD Work Phone: [facility] Procedure Images Comment on above: Arrived Start: 12-03-2022 End: 12-03-2022 Office outpatient visit 15 minutes Raoul Lundy MD Work Phone: [facility] Medicine Comment on above: Osteoarthritis of both sacroiliac joints (Primary Dx); Pain of both sacroiliac joints Start: 11-24-2022 End: 11-24-2022 Office outpatient new 30 minutes Shayne Rory Solis DO Work Phone: [facility] Orth[facility] Comment on above: Left shoulder pain, unspecified chronici ty (Primary Dx) Start: 10-04-2022 ambulatory [facility] Start: 10-04-2022 End: 10-04-2022 Office outpatient visit 15 minutes Raoul Lundy MD Work Phone: [facility] Medicine Comment on above: Primary osteoarthritis of left hip (Prim elicia Dx); Left hip pain; Osteoarthritis of both sacroiliac joints; Pain of both sacroiliac joints; Cervical spine pain; Left shoulder pain, unspecified chronicity Start: 10-04-2022 End: 10-04-2022 Subsequent hospital visit by physician Raoul Lundy MD Work Phone: [facility] Procedure Images Comment on above: Arrived Start: 08-09-2022 Admission to same day surgery center Alex Faith RN [facility] Urogynecology Physicians Comment on above: Urge urinary incontinence (Primary Dx) Start: 07-27-[address] [facility] Start: 07-27-2022 End: 07-27-2022 Office outpatient visit 25 minutes Raoul Lundy MD Work Phone: [facility] Comment on above: Osteoarthritis of both sacroiliac joints (Primary Dx); Pain of both sacroiliac joints; Intermittent claudication; Acquired claw toe of left foot; Osteoarthritis of first metatarsophalangeal (MTP) joint of left foot; Bunionette of right foot; Acute pain of both knees; Hx of total knee arthroplasty, right; Localized osteoarthritis of left knee Start: 07-22-2022 End: 07-22-2022 ambulatory ALLIE R[facility] Start: 07-22-2022 End: 07-22-2022 Patient encounter procedure Allie Ray MD Work Phone: [facility] Comment on above: Urge urinary incontinence (Primary Dx) Start: 06-24-2022 ambulatory [facility] Start: 06-24-2022 End: 06-24-2022 Subsequent hospital visit by physician Raoul Lundy MD Work Phone: [facility] Procedure Images Comment on above: Arrived Start: 06-24-2022 End: 06-24-2022 Patient encounter procedure Raoul Lundy MD Work Phone: [facility] Comment on above: Osteoarthritis of both sacroiliac joints (Primary Dx); Pain of both sacroiliac joints; Status post lumbar spinal fusion; Status post arthroscopy of hip Start: 06-10-2022 ambulatory SELF SELF [facility] Start: 06-10-2022 End: 06-10-2022 Office outpatient new 45 minutes Raoul Lundy MD Work Phone: [facility] Comment on above: Pain of both sacroiliac joints (Primary Dx); Osteoarthritis of both sacroiliac joints; Status post lumbar spinal fusion; Status post arthroscopy of hip; Primary osteoarthritis of left hip; Arthralgia, unspecified joint; Cubital tunnel syndrome on left Start: 04-14-2022 Orders Only Darell Fishman CNP Work Phone: [facility] Start: 04-05-2022 End: 04-05-2022 Office outpatient visit 15 minutes Jose Fraga MD Work Phone: [facility] Sp[facility] Comment on above: Lumbar stenosis L1-2 with neurogenic cla udication (Primary Dx); Status post lumbar spinal fusion L2-S1; Status post cervical spinal fusion Start: 2022 End: [facility] Start: 2022 End: 2022 Office outpatient visit 15 minutes Kristyn Ha MD Work Phone: [facility] Comment on above: Dilated cardiomyopathy (HCC) (Primary Dx ); Primary hypertension; Class 1 obesity due to excess calories with serious comorbidity and body mass index (BMI) of 31.0 to 31.9 in adult; Diastolic dysfunction Start: 02-11-2022 End: 02-11-2022 ambulatory HARMONY GEE [facility] Start: 02-11-2022 End: 02-11-2022 Office outpatient visit 15 minutes Darell Fishman [employer] Work Phone: [facility] Comment on above: Urge urinary incontinence (Primary Dx) Start: 12-23-2021 End: 12-23-2021 ambulatory ALLIE RAY [facility] Start: 12-22-2021 End: 12-22-2021 Office outpatient visit 25 minutes Jose Fraga MD Work Phone: [facility] Sp[facility] Comment on above: Lumbar stenosis with neurogenic claudica tion (Primary Dx); Status post lumbar spinal fusion L2-S1; Status post cervical spinal fusion Start: 09-22-2021 End: 09-22-2021 Office outpatient visit 25 minutes Lisa Mcclain [employer] Work Phone: [facility] Comment on above: Dysuria (Primary Dx); Acute cystitis with hematuria Start: 09-16-2021 End: 09-16-2021 Office outpatient visit 15 minutes Arianna Ng [employer] Work Phone: [facility] Spine Surgery Comment on above: Status post cervical spinal fusion (Prim elicia Dx); Protrusion of cervical intervertebral disc C4-5 with stenosis; Numbness of upper extremity; DDD (degenerative disc disease), lumbar Start: 06-25-2021 End: 06-25-2021 Office outpatient visit 15 minutes Arianna Ng [employer] Work Phone: [facility] Sp[facility] Comment on above: Status post cervical spinal fusion (Prim elicia Dx); Protrusion of cervical intervertebral disc C4-5 with stenosis; DDD (degenerative disc disease), lumbar Start: 06-15-2021 Transcribe Orders Nataly Rosado MA [facility] Gastroenterology Comment on above: Irritable bowel syndrome, unspecified ty pe (Primary Dx) Start: 06-03-2021 End: 06-03-2021 Office outpatient new 30 minutes Jose Parrish MD Work Phone: [facility] Comment on above: Inguinal pain, unspecified laterality; Depression, unspecified depression type Start: 05-25-2021 End: 05-25-2021 Phys/qhp telephone evaluation 11-20 min Dilip Mckeon MD Work Phone: [facility] Pulmonary Comment on above: Obstructive sleep apnea (Primary Dx); Shortness of breath Start: 05-21-2021 End: 05-21-2021 ambulatory Dilip Mckeon MD Work Phone: [facility] Pul[facility] Comment on above: AYO (obstructive sleep apnea) Start: 05-18-2021 End: 05-18-2021 Office outpatient visit 15 minutes Keesha Kinsey DO Work Phone: [facility] Comment on above: Chronic groin pain, unspecified laterali ty (Primary Dx) Start: 05-07-2021 End: 05-07-2021 Refill Fani Chairez LPN [facility] Pul[facility] Comment on above: COPD, severe (HCC) (Primary Dx) Start: 05-06-2021 End: 05-06-2021 Refill Deidre Fishman LPN [facility] Start: 04-21-2021 End: 04-21-2021 Office outpatient visit 25 minutes Dilip Mckeon MD Work Phone: [facility] Comment on above: AYO (obstructive sleep apnea) (Primary D x) Start: 04-20-2021 End: 04-20-2021 Office outpatient visit 25 minutes Pablo Mullen MD Work Phone: [facility] Cardiology Comment on above: Hypertensive heart disease without heart failure (Primary Dx); Diastolic dysfunction; Class 1 obesity due to excess calories with serious comorbidity and body mass index (BMI) of 34.0 to 34.9 in adult Start: 03-31-2021 End: 03-31-2021 Orders Only Devendra Mckeon MD Work Phone: [facility] Comment on above: COPD, severe (HCC) (Primary Dx) Start: 03-25-2021 End: 03-25-2021 Postop follow up visit related to original px Arianna Ng [employer] Work Phone: [facility] Comment on above: Protrusion of cervical intervertebral di sc (Primary Dx); Status post cervical spinal fusion Start: 03-23-2021 End: 03-23-2021 Emergency department patient visit Michael Verdugo MD Work Phone: [facility] Start: 03-13-2021 End: 03-14-2021 Subsequent hospital visit by physician Jose Fraga MD Work Phone: [facility] [address] [facility] Start: 03-05-2021 End: 03-05-2021 Subsequent hospital visit by physician Arianna Ng [employer] Work Phone: [facility] Comment on above: Arrived Start: 02-26-2021 End: 02-26-2021 Documentation procedure Luna Munoz MA [facility] Start: 02-26-2021 End: 02-26-2021 Office outpatient new 60 minutes Kristyn Ha MD Work Phone: [facility] Comment on above: Preoperative cardiovascular examination (Primary Dx); Diastolic dysfunction; Essential hypertension; History of cardiomyopathy; Class 1 obesity due to excess calories with serious comorbidity and body mass index (BMI) of 34.0 to 34.9 in adult; AYO (obstructive sleep apnea); Spinal stenosis of cervical region Start: 02-26-2021 End: 2022 Patient encounter status Kristyn Ha MD Work Phone: [facility] Start: 02-25-2021 End: 02-25-2021 Orders Only Lottie Charlton RN [facility] Start: 02-12-2021 End: 02-12-2021 Admission to day surgery Arianna Ng Work Phone: [facility] Sp[facility] Comment on above: Preop testing (Primary Dx) Displacement of cerv ical intervertebral disc without myelopathy (Primary Dx) Start: 02-11-2021 End: 02-11-2021 Office outpatient new 45 minutes Harmony Gee Work Phone: [facility] Comment on above: Protrusion of cervical intervertebral di sc C4-5 with stenosis (Primary Dx); Neck pain Start: 02-11-2021 End: 02-11-2021 Patient encounter procedure Jose Luiz Gigi Work Phone: [facility] Comment on above: Lumbar pain Start: 01-21-2021 End: 01-21-2021 Patient encounter procedure Jose Luiz Gigi Work Phone: [facility] Comment on above: Lumbar pain Start: 01-13-2021 End: 01-13-2021 Transcribe Orders Nataly Burks [facility] Sp[facility] Comment on above: Neck pain (Primary Dx) Start: 01-05-2021 End: 01-05-2021 Patient encounter procedure Jose Yu Work Phone: [facility] Comment on above: Lumbar pain Start: 12-30-2020 End: 12-30-2020 Office outpatient visit 15 minutes Eyal Duron Work Phone: [facility] Comment on above: Encounter for long-term use of opiate an algesic (Primary Dx); Postlaminectomy syndrome of lumbar region Start: 12-29-2020 End: 12-29-2020 Patient encounter procedure Jose Yu Work Phone: [facility] Comment on above: Lumbar pain Start: 12-25-2020 End: 12-25-2020 Patient encounter procedure Jose Yu Work Phone: [facility] Comment on above: Lumbar pain Start: 12-18-2020 End: 12-18-2020 Patient encounter procedure Jose Yu Work Phone: [facility] Comment on above: Lumbar pain Start: 12-08-2020 End: 12-08-2020 Patient encounter procedure Jose Yu Work Phone: [facility] Comment on above: Lumbar pain Start: 12-04-2020 End: 12-04-2020 Patient encounter procedure Jose Yu Work Phone: [facility] Comment on above: Lumbar pain Start: 11-27-2020 End: 11-27-2020 Patient encounter procedure Jose Yu Work Phone: [facility] Comment on above: Lumbar pain Start: 11-26-2020 End: 11-26-2020 Office outpatient new 60 minutes Harmony Gee Work Phone: [facility] Neurology Comment on above: Paresthesias (Primary Dx); Bilateral carpal tunnel syndrome; Cervical stenosis of spinal canal Start: 11-25-2020 End: 11-25-2020 Patient encounter procedure Jose Yu Work Phone: [facility] Comment on above: Lumbar pain Start: 11-24-2020 End: 11-24-2020 Patient encounter procedure Jose Yu Work Phone: [facility] Physiatry Comment on above: Cervical spinal stenosis; Spinal stenosis, lumbar region, with neurogenic claudication Start: 11-17-2020 End: 11-17-2020 Transcribe Orders Jose Yu Work Phone: [facility] Comment on above: Lumbar pain (Primary Dx) Start: 09-02-2020 End: 09-02-2020 Documentation procedure Elza Bermudez [facility] Start: 08-28-2020 End: 08-28-2020 Office outpatient new 60 minutes Allie Ray Work Phone: [facility] Comment on above: Rectocele (Primary Dx); 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 Start: 07-24-2020 End: 07-24-2020 Subsequent hospital visit by physician Harmony Gee Work Phone: [facility] Comment on above: Spinal stenosis in cervical region Start: 07-22-2020 End: 07-22-2020 Office outpatient visit 15 minutes Eyal Duron Work Phone: [facility] Comment on above: Encounter for long-term use of opiate an algesic (Primary Dx); Postlaminectomy syndrome of lumbar region Start: 05-20-2020 End: 05-20-2020 Office outpatient visit 15 minutes Eyal [employer] Work Phone: [facility] Comment on above: Postlaminectomy syndrome of lumbar regio n (Primary Dx); Encounter for long-term use of opiate analgesic Start: 02-14-2020 End: 02-14-2020 Patient encounter procedure Elizabeth Ordaz [facility] Comment on above: proactive outreach Start: 02-13-2020 End: 02-13-2020 Patient encounter procedure Elizabeth Ordaz January [facility] Comment on above: proactive outreach Start: 01-29-2020 End: 01-29-2020 Patient encounter procedure Eyal Duron Work Phone: [facility] Comment on above: Encounter for long-term use of opiate an algesic (Primary Dx); Postlaminectomy syndrome of lumbar region Start: 12-31-2019 End: 12-31-2019 Evaluation Bernard Bunn Work Phone: [facility] Comment on above: Balance disorder Start: 11-27-2019 End: 11-27-2019 Office outpatient visit 15 minutes Eyal Duron Work Phone: [facility] Comment on above: Encounter for long-term use of opiate an algesic (Primary Dx); Postlaminectomy syndrome of lumbar region Start: 10-22-2019 End: 10-22-2019 Subsequent hospital visit by physician Giovanni Hodges Work Phone: [facility] Comment on above: Dizziness and giddiness Start: 09-25-2019 End: 09-25-2019 Office outpatient visit 15 minutes Ruby Boucher Work Phone: [facility] Comment on above: Encounter for long-term use of opiate an algesic (Primary Dx); Postlaminectomy syndrome of lumbar region Start: 09-05-2019 End: 09-05-2019 Patient encounter procedure Alejo Hummel Work Phone: [facility] Comment on above: History of falling; DDD (degenerative disc disease), lumbar Start: 08-27-2019 End: 08-27-2019 Patient encounter procedure Alejo Hummel Work Phone: [facility] Comment on above: History of falling; DDD (degenerative disc disease), lumbar Start: 08-20-2019 End: 08-20-2019 Patient encounter procedure Alejo Hummel Work Phone: [facility] Comment on above: History of falling; DDD (degenerative disc disease), lumbar Start: 08-13-2019 End: 08-13-2019 Patient encounter procedure Alejo Hummel Work Phone: [facility] Comment on above: History of falling; DDD (degenerative disc disease), lumbar Start: 08-06-2019 End: 08-06-2019 Patient encounter procedure Alejo Hummel Work Phone: [facility] Comment on above: History of falling; DDD (degenerative disc disease), lumbar Start: 07-31-2019 End: 07-31-2019 Office outpatient visit 15 minutes Ruby Boucher Work Phone: [facility] Comment on above: Encounter for long-term use of opiate an algesic (Primary Dx); Postlaminectomy syndrome of lumbar region; Lumbar stenosis with neurogenic claudication Start: 07-27-2019 End: 07-27-2019 ambulatory Alejo Hummel MD Work Phone: [facility] Comment on above: Low back pain, unspecified back pain lat erality, unspecified chronicity, with sciatica presence unspecified; History of falling Start: 06-08-2019 End: 06-10-2019 Emergency department patient visit Marcelino Blackmon Work Phone: [facility] Comment on above: Vertigo (Primary Dx); Non-intractable vomiting with nausea, unspecified vomiting type Start: 06-01-2019 End: 06-01-2019 Office outpatient visit 15 minutes Ruby Boucher Work Phone: [facility] Comment on above: Encounter for monitoring opioid maintena nce therapy (Primary Dx); Postlaminectomy syndrome of lumbar region; Lumbar stenosis with neurogenic claudication; Osteoarthritis of multiple joints, unspecified osteoarthritis type Start: 04-02-2019 End: 04-02-2019 Office outpatient visit 15 minutes Ruby Boucher Work Phone: [facility] Comment on above: Postlaminectomy syndrome of lumbar regio n Start: 12-04-2018 End: 12-04-2018 Patient encounter procedure Harmony Mejias Work Phone: [facility] Phys[facility] Comment on above: Burning pain Start: 11-21-2018 End: 11-21-2018 Office outpatient visit 15 minutes Eyal Duron Work Phone: [facility] Comment on above: Encounter for long-term opiate analgesic use (Primary Dx); Postlaminectomy syndrome of lumbar region Start: 09-04-2018 End: 09-04-2018 Office outpatient new 30 minutes Zac Fredisis Rudiykhodkjose Work Phone: [facility] Comment on above: AYO on CPAP (Primary Dx); Vocal cord par alysis, unilateral complete; Dysphasia; Laryngeal pachyderma; Gastroesophageal reflux disease, esophagitis presence not specified Start: 08-25-2018 Patient encounter procedure DOCTOR UNASSIGNED Facility:UNKNOWN Start: 07-25-2018 End: 07-25-2018 Patient encounter Harmony Gee Work Phone: [facility] Comment on above: Osteoarthritis of multiple joints, unspe cified osteoarthritis type Start: 07-18-2018 End: 07-18-2018 Patient encounter Harmony Gee Work Phone: [facility] Comment on above: Osteoarthritis of multiple joints, unspe cified osteoarthritis type Start: 07-11-2018 End: 07-11-2018 Patient encounter Harmony Gee Work Phone: [facility] Comment on above: Osteoarthritis of multiple joints, unspe cified osteoarthritis type Start: 07-05-2018 End: 07-05-2018 Patient encounter Harmony Gee Work Phone: [facility] Comment on above: Osteoarthritis of multiple joints, unspe cified osteoarthritis type Start: 05-26-2018 Patient encounter Liang Maribel Facility:[facility] Start: 05-24-2018 End: 05-24-2018 Patient encounter Eyal Duron Work Phone: [facility] Start: 03-22-2018 End: 03-22-2018 Ambulatory Gabo Sears Work Phone: [facility] Start: 03-13-2018 End: 03-13-2018 Office/outpatient visit, est, level 3 Eyal Duron Work Phone: [facility] Start: 03-13-2018 End: 03-13-2018 Ambulatory Gabo Gramajo Stevei Work Phone: [facility] Start: 02-27-2018 End: 02-28-2018 Evaluation and management of inpatient Gaboleesa Vickersyani Work Phone: [facility] Start: 02-17-2018 End: 02-17-2018 Patient encounter Gabo Wilsoni Work Phone: [facility] Preadmission Testing Start: 01-05-2018 Ambulatory Alejo Berman Herceg Work Phone: [facility] Start: 01-02-2018 Ambulatory Alejo Berman Herceg Work Phone: [facility] Start: 11-08-2017 End: 11-10-2017 Evaluation and management of inpatient ALEJO BERMAN WOLFEG [place] Start: 11-03-2017 End: 11-04-2017 Ambulatory MIGUEL LEONARDOO [place] Start: 11-03-2017 End: 11-03-2017 Ambulatory Miguel Mcmullen Work Phone: [place] [facility] Start: 11-03-2017 Patient encounter Alejo Hummel Work Phone: [place] [facility] Start: 11-02-2017 Office/outpatient visit, est, level 3 Eyal Parker Prok Work Phone: [facility] Start: 09-13-2017 Office outpatient visit 25 minutes Eyal Parker Prok Work Phone: [facility] Start: 07-18-2017 Office/outpatient visit, est, level 3 Eyal Parker Prok Work Phone: [facility] Start: 07-01-2017 Ambulatory Mulu Mosley [facility] Start: 06-08-2017 End: 06-08-2017 Patient encounter procedure Trentlennie Peguero Work Phone: [facility] Comment on above: Lumbosacral radiculopathy Procedures Date Procedure Procedure Detail Performing Clinician Start: 04-30-2025 Referral to cardiology service Bhanu Brice MD Work Phone: Start: 04-25-2025 X-ray of cervical spine HARMONY GEE Work Phone: Start: 04-25-2025 X-ray of knee, one or two views HARMONY GEE Work Phone: Start: 12-13-2023 Radiologic examination of knee Start: 12-13-2023 Radiography of thoracic spine Start: 10-27-2023 Comprehensive metabolic panel Claudio Friedman DO Work Phone: Start: 10-26-2023 Electrocardiogram Generic [facility] Work Phone: Start: 10-26-2023 Incentive spirometry Claudio Friedman DO Work Phone: Start: 10-26-2023 Ct thorax w/contrast material Jv riley PA-C Work Phone: Start: 10-26-2023 3d rendering w/interp&postproc diff work station Jv CHOW-C Work Phone: Start: 10-26-2023 Ct cervical spine w/o contrast material Jv Baker PA-C Work Phone: Start: 10-26-2023 Ct head/brain w/o contrast material Jv CHOW-C Work Phone: Start: 10-25-2023 Basic metabolic panel calcium total Jv CHOW-C Work Phone: Start: 10-25-2023 LAVENDER TOP Luna haskins MD Work Phone: Start: 10-25-2023 LIGHT BLUE TOP Luna haskins MD Work Phone: Start: 10-25-2023 LIGHT GREEN TOP Luna haskins MD Work Phone: Start: 10-25-2023 MINT GREEN TOP Luna haskins MD Work Phone: Start: 10-25-2023 RAINBOW DRAW Luna haskins MD Work Phone: Start: 10-25-2023 Ecg routine ecg w/least 12 lds trcg only w/o i&r Luna Carson MD Work Phone: Start: 08-18-2023 Artl cathj/cannulj mntr/transfusion spx prq Ray Chapman [employer] Work Phone: Start: 08-18-2023 End: 08-18-2023 AIRWAY ETT Ray Chapman CRN A Work Phone: Start: 08-04-2023 Blood typing serologic abo Erika Carmona [employer] Work Phone: Start: 08-04-2023 Comprehensive metabolic panel Erika Carmona [employer] Work Phone: Start: 04-22-2023 Radex hip unilateral with pelvis 2-3 views Zafar Faith DO Work Phone: Start: 03-30-2023 US Unspecified body region Raoul Lundy MD Work Phone: Start: 03-30-2023 Arthrocentesis aspir&/inj major jt/bursa w/us Raoul Lundy MD Work Phone: Start: 02-22-2023 Injection single/junior technical writer trigger point 1/2 muscles Felix Maguire ATC Start: 02-04-2023 Us guidance needle placement img s&i Felix Maguire ATC Start: 02-04-2023 US Unspecified body region Raoul Lundy MD Work Phone: Start: 12-27-2022 Arthrocentesis aspir&/inj major jt/bursa w/o us Felix Maguire ATC Start: 12-03-2022 US Unspecified body region Raoul Lundy MD Work Phone: Start: 12-03-2022 Arthrocentesis aspir&/inj major jt/bursa w/us Felix Maguire ATC Start: 10-04-2022 Radex hips bilateral with pelvis 3-4 views Raoul Lundy MD Work Phone: Start: 10-04-2022 Arthrocentesis aspir&/inj major jt/bursa w/us Felix Maguire ATC Start: 10-04-2022 US Unspecified body region Raoul Lundy MD Work Phone: Start: 06-24-2022 US Unspecified body region Raoul Lundy MD Work Phone: Start: 06-24-2022 Arthrocentesis aspir&/inj major jt/bursa w/us Felix Maguire ATC Start: 2022 Follow-up visit Follow-up KRISTYN HA Start: 09-22-2021 Urnls dip stick/tablet rgnt auto w/o microscopy Lisa Mcclain [employer] Work Phone: Start: 03-23-2021 Radiologic exam chest single view Michael Verdugo MD Work Phone: Start: 03-23-2021 Basic metabolic panel calcium total Michael Verdugo MD Work Phone: Start: 03-23-2021 LAVENDER TOP Michael Verdugo MD Work Phone: Start: 03-23-2021 LIGHT BLUE TOP Michael Verdugo MD Work Phone: Start: 03-23-2021 LIGHT GREEN TOP Michael Verdugo MD Work Phone: Start: 03-23-2021 MINT GREEN TOP Michael Verdugo MD Work Phone: Start: 03-23-2021 RAINBOW DRAW Michael Verdugo MD Work Phone: Start: 03-14-2021 Basic metabolic panel calcium total Arianna Ng [employer] Work Phone: Start: 03-13-2021 Incentive spirometry Arianna Ng CN P Work Phone: Start: 03-13-2021 Radex spine 1 view specify level Jose Fraga MD Work Phone: Start: 03-13-2021 Radex spine 1 view specify level Jose Fraga MD Work Phone: Start: 03-13-2021 Glucose measurement Jose betancourt MD Work Phone: Start: 03-10-2021 Electrocardiogram Provider Not In Syst em Start: 03-05-2021 Radiologic exam chest 2 views Arianna Ng AIR CONDITIONING UNIT TESTER Work Phone: Start: 03-04-2021 Lipid 1996 panel - Serum or Plasma Giacomo Vanessa MD Work Phone: Start: 03-04-2021 Microalbumin [Mass/volume] in Urine by Test strip Arianna Ng AIR CONDITIONING UNIT TESTER Work Phone: Start: 10-22-2019 MRI of head Giovanni Hodges Work Phone: Start: 06-09-2019 MRI of brain and brain stem Marcelina hernández Work Phone: Start: 06-09-2019 CT angiography of head and neck Marcelina Husain Work Phone: Start: 06-09-2019 Basic metabolic 2000 panel - Serum or Plasma Tonny Coulter Work Phone: Start: 06-09-2019 C reactive protein [Mass/volume] in Serum or Plasma Marcelina Husain Work Phone: Start: 06-09-2019 Complete blood count (hemogram) panel - Blood by Automated count Tonny Coulter Work Phone: Start: 06-09-2019 Erythrocyte sedimentation rate by Westergren method Marcelina Husain Work Phone: Start: 06-08-2019 Echocardiography Missaelluis Oleary rosy Work Phone: Start: 06-08-2019 Radiologic exam chest single view Marcelino Blackmon Work Phone: Start: 06-08-2019 CT of head without contrast Marcelino Blackmon Work Phone: Start: 06-08-2019 URINE MCCOY CONTAINER Marcelino Caballerocharlao n Work Phone: Start: 06-08-2019 URINE YELLOW CONTAINER Marcelino Giovanni Huang son Work Phone: Start: 06-08-2019 12 lead ECG Marcelino Blackmon Work Phone: Start: 06-08-2019 Basic metabolic 1998 panel - Serum or Plasma Marcelino Blackmon Work Phone: Start: 06-08-2019 Complete blood count with white cell differential, automated Marcelino Blackmon Work Phone: Start: 06-08-2019 Complete blood count with white cell differential, manual Marcelino Blackmon Work Phone: Start: 06-08-2019 LAVENDER TOP Marcelino Blackmon Work Phone: Start: 06-08-2019 LIGHT BLUE TOP Marcelino Blackmon Work Phone: Start: 06-08-2019 LIGHT GREEN TOP Marcelino Davila Neymar Work Phone: Start: 06-08-2019 Magnesium [Mass/volume] in Serum or Plasma Marcelino Blackmon Work Phone: Start: 06-08-2019 MINT GREEN TOP Marcelino Blackmon Work Phone: Start: 06-08-2019 End: 06-08-2019 RAINBOW DRAW Marcelino Blackmon Work Phone: Start: 06-08-2019 Thyrotropin [Units/volume] in Serum or Plasma by Detection limit <= 0.005 mIU/L Marcelino Blackmon Work Phone: Start: 06-08-2019 Troponin measurement Marcelino loja Work Phone: Start: 07-18-2018 Microalbumin [Mass/volume] in Urine by Test strip Zacchristy Ovalle Start: 06-09-2018 Ophthalmic examination and evaluation Arianna Hernandez BENDER Work Phone: Start: 02-27-2018 End: 02-27-2018 RIGHT TOTAL HIP ARTHROPLASTY Gabo Sears Work Phone: Start: 10-03-2008 Colonoscopy Trent Peguero Start: 10-04-2006 Microscopic observation [Identifier] in Cervix by Cyto stain Trent Peguero Plan of Treatment Date Care Activity Detail Author Start: 04-23-2029 Tetanus vaccination [facility] Start: 04-23-2029 Urine microalbumin profile [facility] Start: 03-04-2026 Lipid panel Lipid Screening [facility] Start: 01-19-2026 Diabetes Screening Diabetes Screening [facility] Start: 11-06-2025 End: 11-06-2025 Patient encounter procedure 11/06/2025 2:00 PM EST Office Visit [facility] [address] [place] [id number] Benjie Styles MD [address] [place] [address] [facility] Start: 11-04-2025 End: 11-04-2025 Patient encounter procedure 11/04/2025 1:20 PM EST Office Visit [facility] [address] [facility] [address] Dc Wells MD [address] [facility] [place] [address] [facility] Start: 08-14-2025 Urine screening for protein eGFR Diabetes [facility] Start: 08-06-2025 End: 08-06-2025 Patient encounter procedure 08/06/2025 1:15 PM EDT Office Visit [facility] [address] [place] [phone] Benjie Styles MD [address] [place] [address] [facility] Start: 07-01-2025 COVID-19 Vaccine ( season) COVID-19 Vaccine ( season) [facility] Start: 07-01-2025 Influenza vaccination Influenza Vaccine (#1) [facility] Start: 06-20-2025 End: 06-20-2025 Patient encounter procedure 06/20/2025 8:00 AM EDT Appointment [facility] Medicine [address] [place] [address] Ruiz Alcantar MD [address] [place] [address] [facility] Start: 05-30-2025 End: 05-30-2025 Admission to same day surgery center 05/30/2025 10:37 AM EDT - 05/30/2025 11:03 AM EDT Surgery [facility] Endoscopy [address] [place] [phone] Ruiz Alcantar MD [address] [place] [address] ESOPHAGOGASTRODUODENOSCOPY with possible biopsy polypectomy with possible dilation [facility] Comment on above: ESOPHAGOGASTRODUODENOSCOPY with possible biopsy polypectomy with possible dilation Start: 05-30-2025 End: 05-30-2025 Esophagogastroduodenoscopy transoral diagnostic ESOPHAGOGASTRODUODENOSCOPY Nausea 05/30/2025 10:37 AM EDT [facility] Start: 05-30-2025 Subsequent hospital visit by physician [facility] Start: 05-30-2025 End: 05-30-2025 Patient encounter procedure 05/30/2025 9:45 AM EDT Appointment [facility] Ultrasound [facility] [place] [phone] Ruiz Alcantar MD [address] [place] [address] [facility] Ultrasound Start: 05-16-2025 End: 05-16-2025 Patient encounter procedure 05/16/2025 2:20 PM EDT Appointment [facility] [address] [facility] [place] [address] Dc Wells MD [address] [facility] [place] [address] [facility] Start: 05-14-2025 End: 05-14-2025 Patient encounter procedure 05/14/2025 1:30 PM EDT Initial consult [facility] Gastroenter[facility] [address] [place] [address] [place] [address] Ruiz Alcantar MD [address] [place] [address] [facility] Start: 04-29-2025 End: 04-29-2025 Patient encounter procedure 04/29/2025 2:00 PM EDT Office Visit [facility] [address] [facility] [place] [address] Bhanu Brice MD [address] [facility] [place] [address] Dc Wells MD [address] [facility] [address] [place] [address] [facility] Start: 04-24-2025 End: 04-24-2025 Patient encounter procedure 04/24/2025 11:15 AM EDT Initial consult [facility] [address] [facility] [place] [address] Ruiz Alcantar MD [address] [facility] [place] [address] [facility] Start: 02-19-2025 End: 02-19-2025 Patient encounter procedure 02/19/2025 3:00 PM EDT Appointment [facility] Sleep Lab [address] [facility] [place] [address] Dilip Mckeon MD [address] [facility] [place] [address] [facility] Start: 09-13-2024 End: 09-13-2024 Patient encounter procedure 09/13/2024 6:15 AM EST Appointment [place] [address] [place] [address] Reji Abraham, PT [facility] Start: 09-12-2024 End: 09-12-2024 Home visit 09/12/2024 10:00 AM EST Home Care Visit [facility] [address] [place] [address] [place] [address] Haider Newman PTA [facility] Start: 09-11-2024 End: 09-11-2024 Home visit 09/11/2024 10:15 AM EST [facility] [address] [facility] [address] [place] [address] Haider Newamn, DUGLAS [facility] Start: 09-06-2024 End: 09-06-2024 Home visit 09/06/2024 9:30 AM EST Home Care Visit [facility] [address] [place] [address] Haider Newman PTA [facility] Start: 09-05-2024 End: 09-05-2024 Home visit 09/05/2024 6:45 AM EST Home Care Visit [facility] [address] [place] [address] Haider Newman PTA [facility] Start: 09-04-2024 End: 09-04-2024 Home visit 09/04/2024 8:00 AM EST Home Care Visit [facility] [address] [place] [address] Haider Newman PTA [facility] Start: 08-30-2024 End: 08-30-2024 Home visit 08/30/2024 8:00 AM EDT Home Care Visit [facility] [address] [place] [address] Haider Newman PTA [facility] Start: 08-28-2024 End: 08-28-2024 Home visit 08/28/2024 2:45 PM EDT Home Care Visit [facility] [address] [place] [address] Haider Newman PTA [facility] Start: 08-24-2024 End: 08-24-2024 Home visit 08/24/2024 2:00 AM EDT Home Care Visit [facility] [address] [place] [address] Raya Dimas OT [facility] Start: 08-23-2024 End: 08-23-2024 Home visit 08/23/2024 8:00 AM EDT Home Care Visit [facility] [address] [place] [address] Haider Newman, DUGLAS [facility] Start: 08-10-2024 Depression screening using PHQ-9 (Patient Health Questionnaire 9) score Depression Screening/Follow-Up (PHQ-2/9) [facility] Start: 07-01-2024 Covid-19 Vaccine () Covid-19 Vaccine () [facility] Start: 07-01-2024 COVID-19 Vaccine () COVID-19 Vaccine () [facility] Start: 07-01-2024 Influenza vaccination [facility] Start: 06-27-2024 Hemoglobin A1c measurement A1C [facility] Start: 04-23-2024 End: 04-23-2024 Patient encounter procedure 04/23/2024 4:00 PM EDT Office Visit Orthopaedics [address] [place], [place] [phone] Giacomo Vanessa MD [address] [place] [address] Rt Hand Pain/Lt Shoulder Orthopaedics Comment on above: Rt Hand Pain/Lt Shoulder Start: 04-16-2024 LIPID SCREEN LIPID SCREEN [facility] Start: 03-30-2024 End: 03-30-2024 Patient encounter procedure 03/30/2024 3:00 PM EDT Office Visit Gastroenterolgy [address] [place] [address] Cathy Godinez APRN.AIR CONDITIONING UNIT TESTER [address] [facility] [address] pain in stomach Gastroenterolgy Comment on above: pain in stomach Start: 03-19-2024 End: 03-19-2024 Patient encounter procedure 03/19/2024 10:45 AM EDT Office Visit Orthopaedics [address] [place], [place] [id number] Giacomo Vanessa MD [address] [place] [address] Rt Hand Pain/Lt Shoulder Orthopaedics Comment on above: Rt Hand Pain/Lt Shoulder Start: 02-22-2024 End: 02-22-2024 Patient encounter procedure 02/22/2024 3:15 PM EDT Office Visit [facility] [address] [place] [address] Jose Fraga MD [address] [place] [address] [facility] Start: 01-09-2024 End: 01-09-2024 ambulatory 01/09/2024 2:00 PM EDT Treatment [facility] [place] [address] Araseli Forrest, FIRE CAPTAIN MARINE [facility] Start: 01-05-2024 End: 01-05-2024 ambulatory 01/05/2024 1:30 PM EST Treatment [facility] [address] [place] [address] [place] [address] Selene Miller, PT Discharge Disposition: Home [facility] Start: 01-04-2024 End: 01-04-2024 Patient encounter procedure 01/04/2024 2:15 PM EST Office Visit [facility] [address] [place] [address] Jose Fraga MD [address] [place] [address] [facility] Start: 01-04-2024 End: 01-04-2024 ambulatory 01/04/2024 1:15 PM EST Treatment [facility] [address] [place] [address] Araseli Forrest, FIRE CAPTAIN MARINE [facility] Start: 01-02-2024 End: 01-02-2024 ambulatory 01/02/2024 2:00 PM EST Treatment [facility] [place] [address] Araseli Forrest, FIRE CAPTAIN MARINE [facility] Start: 12-28-2023 End: 12-28-2023 ambulatory 12/28/2023 2:00 PM EST Treatment [facility] [place] [address] Araseli Forrest, FIRE CAPTAIN MARINE [facility] Start: 12-26-2023 End: 12-26-2023 ambulatory 12/26/2023 2:45 PM EST Treatment [facility] [place] [address] Zafar Mccoy, [facility] Start: 12-21-2023 End: 12-21-2023 ambulatory 12/21/2023 1:15 PM EST Treatment [facility] [place] [address] Araseli Forrest, [facility] Start: 12-19-2023 End: 12-19-2023 ambulatory 12/19/2023 2:00 PM EST Treatment [facility] [place] [address] Araseli Forrest, FIRE CAPTAIN MARINE Discharge Disposition: Home [facility] Start: 12-16-2023 End: 12-16-2023 ambulatory 12/16/2023 12:45 PM EST Evaluation [facility] [place] [address] Harmony Gee MD [address] [place] [id number] Selene Miller, PT Discharge Disposition: Home [facility] Start: 12-08-2023 End: 12-08-2023 ambulatory 12/08/2023 2:15 PM EST Evaluation [facility] [place] [address] Harmony Gee MD [address] [place] [address] Lennie Holt, TOSRTEN Discharge Disposition: Home [facility] Start: 12-01-2023 Hemoglobin A1c measurement A1C [facility] Start: 10-31-2023 Advance Directive Discussion Advance Directive Discussion [facility] Start: 10-31-2023 Behavioral Health Screening Behavioral Health Screening [facility] Start: 10-17-2023 End: 10-17-2023 Follow-up encounter 10/17/2023 2:30 PM EST Follow-Up [facility] [address] [place] [address] Erika Carmona, AIR CONDITIONING UNIT TESTER [address] [place] [address] [facility] Start: 10-12-2023 End: 10-31-2023 XR Lumbar Spine 2-3 Views (Standard) XR Lumbar Spine 2-3 Views (Standard) Imaging Routine Status post lumbar spinal fusion T10-L2 08/18/23 Expected: 10/12/2023 (Approximate), Expires: 10/31/2023 [facility] Work Phone: Comment on above: Expected: 10/12/2023 (Approximate), Expi res: 10/31/2023 Start: 10-10-2023 End: 09-25-2024 XR Thoracic spine 3 Views XR Thoracic Spine 3 Views (Standard) Imaging Routine Status post lumbar spinal fusion T10-L2 08/18/23 Expected: 10/10/2023, Expires: 09/25/2024 [facility] Work Phone: Comment on above: Expected: 10/10/2023, Expires: Start: 10-10-2023 End: 10-10-2023 Follow-up encounter 10/10/2023 11:30 AM EST Follow-Up [facility] [address] [place] [address] Erika Carmona, AIR CONDITIONING UNIT TESTER [address] [place] [address] [facility] Start: 10-05-2023 End: 10-05-2023 Follow-up encounter 10/05/2023 1:00 PM EST Follow-Up [facility] [address] [place] [address] Erika Carmona, AIR CONDITIONING UNIT TESTER [address] [place] [address] [facility] Start: 09-29-2023 End: 09-29-2023 Home visit 09/29/2023 Home Care Visit [facility] [address] [place] [address] Tiny Freire RN [facility] Start: 09-26-2023 End: 09-26-2023 Patient encounter procedure 09/26/2023 10:30 AM EST Office Visit [facility] [address] [place] [address] Erika Carmona, AIR CONDITIONING UNIT TESTER [address] [place] [address] [facility] Start: 09-22-2023 End: 09-22-2023 Home visit 09/22/2023 Home Care Visit [facility] [address] [place] [address] Tiny Freire RN [facility] Start: 09-15-2023 End: 09-15-2023 Home visit 09/15/2023 Home Care Visit [facility] [address] [place] [address] Tiny Freire RN [facility] Start: 09-12-2023 End: 09-12-2023 Home visit 09/12/2023 8:00 AM EST Home Care Visit [facility] [address] [place] [address] Tiny Freire RN [facility] Start: 09-12-2023 End: 09-12-2023 Home visit 09/12/2023 Home Care Visit [facility] [address] [place] [address] Tiny Freire RN [facility] Start: 09-08-2023 End: 09-08-2023 Home visit [facility] Start: 09-06-2023 End: 09-06-2023 Home visit 09/06/2023 7:45 AM EST Home Care Visit [facility] [address] [place] [address] Raya Dimas OT [facility] Start: 09-05-2023 End: 09-05-2023 Home visit 09/05/2023 10:30 AM EST Home Care Visit [facility] [address] [place] [address] Rebecca Bonilla LPN [facility] Start: 09-05-2023 End: 09-05-2023 Home visit 09/05/2023 1:30 AM EST Home Care Visit [facility] [address] [place] [address] Rebecca Bonilla LPN [facility] Start: 09-01-2023 End: 09-01-2023 Home visit 09/01/2023 9:30 AM EDT Home Care Visit [facility] [address] [place] [address] Rebecca Bonilla LPN [facility] Start: 09-01-2023 End: 09-01-2023 Home visit 09/01/2023 6:15 AM EDT Home Care Visit [facility] [address] [place] [address] Haider Newman PTA [facility] Home [facility] Start: 09-01-2023 End: 09-01-2023 Home visit 09/01/2023 1:30 AM EDT Home Care Visit [facility] [address] [place] [address] ChadRebecca LPN [facility] Start: 08-31-2023 End: 08-31-2023 Follow-up encounter 08/31/2023 11:30 AM EDT Follow-Up [facility] [address] [place] [address] Erika Carmona, AIR CONDITIONING UNIT TESTER [address] [place] [address] [facility] Start: 08-30-2023 End: 08-30-2023 Home visit 08/30/2023 11:15 AM EDT Home Care Visit [place] [address] [place] [address] Raya Dimas OT [facility] Start: 08-30-2023 End: 08-30-2023 Home visit 08/30/2023 7:15 AM EDT Home Care Visit [place] [address] [place] [address] Reji Abraham PT [facility] Start: 08-29-2023 End: 08-29-2023 Home visit 08/29/2023 1:45 PM EDT Home Care Visit [place] [address] [place] [address] Tiny Freire RN [facility] Start: 08-26-2023 End: 08-26-2023 Patient encounter procedure 08/26/2023 11:00 AM EDT Appointment [facility] [address] [place] [address] Latricia Roblero RN [facility] Start: 08-18-2023 End: 08-18-2023 Admission to same day surgery center 08/18/2023 6:45 AM EDT - 08/18/2023 11:10 AM EDT Surgery [facility] [address] [place] [address] Jose Fraga MD [address] [place] [address] Decompression Thoracic 12-Lumbar1, [id number] 1 Discectomy, Innerbody fusion, fixation Thoracic 10-Lumbar5, CT BUCK, Local Bone, Posteriorlateral Fusion Thoracic 10-Lumbar2, cement augmentation Thoracic 10 [facility] Comment on above: Decompression Thoracic 12-Lumbar1, Thora [id number] 1 Discectomy, Innerbody fusion, fixation Thoracic 10-Lumbar5, CT BUCK, Local Bone, Posteriorlateral Fusion Thoracic 10-Lumbar2, cement augmentation Thoracic 10 Start: 08-18-2023 End: 08-18-2023 LAMINECTOMY DECOMPRESSION THORACIC WITH FUSION 4 OR MORE LEVEL LAMINECTOMY DECOMPRESSION THORACIC WITH FUSION 4 OR MORE LEVEL Displacement of thoracic intervertebral disc without myelopathy Pseudoclaudication syndrome S/P lumbar fusion 08/18/2023 6:45 AM EDT [facility] Start: 08-18-2023 Subsequent hospital visit by physician 08/18/2023 6:45 AM EDT Hospital Encounter [facility] [address] [place] [address] Jose Fraga MD [address] [place] [address] [facility] Start: 08-11-2023 Subsequent hospital visit by physician 08/11/2023 [facility] [address] [place] [address] Jose Fraga MD [address] [place] [address] [facility] Start: 07-25-2023 End: 07-25-2023 Patient encounter procedure 07/25/2023 2:25 PM EDT Appointment [facility] [address] [place] [phone] Melodie Allen MD [address] [place] [address] [facility] Start: 07-11-2023 End: 07-11-2023 Patient encounter procedure 07/11/2023 1:15 PM EDT Appointment [facility] [address] [place] [address] Melodie Allen MD [address] [place] [address] [facility] Start: 07-07-2023 End: 07-07-2023 Patient encounter procedure 07/07/2023 9:15 AM EDT Appointment [facility] [address] [place] [address] Melodie Allen MD [address] [place] [address] [facility] Start: 07-06-2023 End: 07-06-2023 Patient encounter procedure 07/06/2023 3:15 PM EDT Office Visit [facility] [address] [place] [address] Jose Fraga MD [address] [place] [address] [facility] Start: 07-01-2023 COVID-19 Vaccine ( season) COVID-19 Vaccine ( season) [facility] Start: 07-01-2023 Influenza vaccination [facility] Start: 07-01-2023 End: 07-01-2023 Patient encounter procedure 07/01/2023 2:00 PM EDT Treatment [facility] [address] [place] [address] Jaymie Arredondo PTA [facility] Start: 06-28-2023 End: 06-28-2023 Patient encounter procedure 06/28/2023 12:00 PM EDT Treatment [facility] [address] [place] [address] [place] [address] Jaymie Arredondo, FIRE CAPTAIN MARINE Discharge Disposition: Home [facility] Start: 06-24-2023 End: 06-24-2023 Patient encounter procedure 06/24/2023 2:15 PM EDT Treatment [facility] [address] [place] [address] Riya Wheat, PT [facility] Start: 06-21-2023 End: 06-21-2023 Patient encounter procedure 06/21/2023 12:30 PM EDT Treatment [facility] [address] [place] [address] Jaymie Arredondo, FIRE CAPTAIN MARINE Discharge Disposition: Home [facility] Start: 06-17-2023 End: 06-17-2023 Patient encounter procedure 06/17/2023 2:00 PM EDT Treatment [facility] [address] [place] [address] Jaymie Arredondo, FI[employer] MARINE Discharge Disposition: Home [facility] Start: 06-13-2023 End: 06-13-2023 Patient encounter procedure 06/13/2023 2:00 PM EDT Treatment [facility] [address] [place] [address] Jaymie Arredondo, FIRE CAPTAIN MARINE [facility] Start: 06-08-2023 End: 06-08-2023 Patient encounter procedure 06/08/2023 2:00 PM EDT Treatment [facility] [address] [place] [address] Jaymie Arredondo, FIRE CAPTAIN MARINE Discharge Disposition: [facility] Start: 05-17-2023 End: 05-17-2023 Patient encounter procedure 05/17/2023 Office Visit Orthopaedics Jose Gaona MD [address] [place] [address] [facility] Start: 04-29-2023 End: 04-29-2023 Patient encounter procedure 04/29/2023 Office Visit Orthopaedics Raoul Lundy MD [address] [place] [address] [place] [address] [facility] Orth[facility] & Sports Medicine Start: 04-26-2023 End: 04-26-2023 Patient encounter procedure 04/26/2023 Office Visit Orthopaedics Andrez Lujan MD [address] [facility] [place] [address] [facility] Start: 04-05-2023 End: 04-05-2023 Patient encounter procedure 04/05/2023 Office Visit Orthopaedics Raoul Lundy MD [address] [facility] [place] [address] [facility] Start: 03-30-2023 End: 03-30-2023 Patient encounter procedure 03/30/2023 Office Visit Orthopaedics Raoul Lundy MD [address] [place] [address] [place] [address] [facility] [address] [facility] Start: 03-07-2023 End: 03-07-2023 Patient encounter procedure 03/07/2023 Office Visit Orthopaedics Raoul Lundy MD [address] [facility] [place] [address] [facility] Start: 02-22-2023 End: 02-22-2023 Patient encounter procedure 02/22/2023 Office Visit Orthopaedics Raoul Lundy MD [address] [facility] [place] [address] [facility] Start: 02-14-2023 End: 02-14-2023 Patient encounter procedure 02/14/2023 Office Visit Anesthesiology Pain Mgt Sally Gallego MD [address] [facility] [place] [address] [facility] Start: 02-14-2023 COVID-19 VACCINE (5 - Moderna series) COVID-19 VACCINE (5 - Moderna series) [facility] Start: 02-11-2023 End: 02-11-2023 Patient encounter procedure 02/11/2023 Office Visit Anesthesiology Pain Mgt Sally Gallego MD [address] [place] [place] [address] [facility] Start: 02-04-2023 End: 02-04-2023 Patient encounter procedure 02/04/2023 Office Visit Orthopaedics Raoul Lundy MD [address] [facility] [place] [address] [facility] Start: 01-21-2023 End: 01-21-2023 Patient encounter procedure 01/21/2023 Office Visit Raoul Jernigan MD [address] [place] [address] [place] [address] [facility] Start: 12-27-2022 End: 12-27-2022 Patient encounter procedure 12/27/2022 Office Visit Raoul Jernigan MD [address] [facility] [place] [address] [facility] Start: 12-09-2022 End: 12-09-2022 Patient encounter procedure 12/09/2022 Office Visit Raoul Jernigan MD [address] [facility] [place] [address] [facility] Start: 10-31-2022 ADVANCE DIRECTIVE DISCUSSION ADVANCE DIRECTIVE DISCUSSION [facility] Start: 10-31-2022 DEPRESSION ASSESSMENT DEPRESSION ASSESSMENT [facility] Start: 08-31-2022 End: 08-31-2022 Patient encounter procedure 08/31/2022 Office Visit Orthopaedics Raoul Lundy MD [address] [place] [address] [place] [address] [facility] Start: 07-27-2022 End: 07-27-2023 Ultrasonography VASC ANKLE BRACHIAL INDEX Imaging Routine Intermittent claudication Expected: 07/27/2022, Expires: 07/27/2023 [facility] Comment on above: Expected: 07/27/2022, Expires: 3 Start: 07-27-2022 End: 07-27-2023 XR Foot - left 3 Views XR FOOT LEFT 3 VIEWS Imaging Routine 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 Expected: 07/27/2022, Expires: 07/27/2023 [facility] Comment on above: Expected: 07/27/2022, Expires: 3 Start: 07-27-2022 End: 07-27-2023 XR Foot - right 3 Views XR FOOT RIGHT 3 VIEWS Imaging Routine Bunionette of right foot Expected: 07/27/2022, Expires: 07/27/2023 [facility] Comment on above: Expected: 07/27/2022, Expires: 3 Start: 07-27-2022 End: 07-27-2023 XR Knee - bilateral Views W standing XR KNEES BILATERAL STANDING 1 VIEW Imaging Routine Acute pain of both knees Expected: 07/27/2022, Expires: 07/27/2023 [facility] Comment on above: Expected: 07/27/2022, Expires: 3 Start: 07-27-2022 End: 07-27-2023 XR Knee - right 3 Views XR KNEE RIGHT 3 VIEWS Imaging Routine Acute pain of both knees Expected: 07/27/2022, Expires: 07/27/2023 [facility] Comment on above: Expected: 07/27/2022, Expires: 3 Start: 07-27-2022 End: 07-27-2022 Patient encounter procedure 07/27/2022 Office Visit Orthopaedics Raoul Lundy MD [address] [facility] [place] [address] [facility] Start: 07-20-2022 End: 07-20-2022 Patient encounter procedure 07/20/2022 Office Visit Physical Medicine & Rehabilitation Pop Mancuso MD [address] [place] [address] [facility] Start: 07-01-2022 Influenza vaccination [facility] Start: 06-24-2022 End: 06-24-2022 Patient encounter procedure 06/24/2022 Office Visit Orthopaedics Raoul Lundy MD [address] [place] [address] [facility] Start: 06-10-2022 End: 06-10-2023 SIERRA MULTIPLEX SCRN WITH REFLEX SIERRA MULTIPLEX SCRN WITH REFLEX Lab Routine Arthralgia, unspecified joint Expected: 06/10/2022, Expires: 06/10/2023 [facility] Comment on above: Expected: 06/10/2022, Expires: 3 Start: 06-10-2022 End: 06-10-2023 C-reactive protein C REACTIVE PROTEIN Lab Routine Arthralgia, unspecified joint Expected: 06/10/2022, Expires: 06/10/2023 [facility] Comment on above: Expected: 06/10/2022, Expires: Start: 06-10-2022 End: 06-10-2023 CYCLIC CITRULLINATE PEPTIDE AB CYCLIC CITRULLINATE PEPTIDE AB Lab Routine Arthralgia, unspecified joint Expected: 06/10/2022, Expires: 06/10/2023 [facility] Comment on above: Expected: 06/10/2022, Expires: 3 Start: 06-10-2022 End: 06-10-2023 RHEUMATOID FACTOR RHEUMATOID FACTOR Lab Routine Arthralgia, unspecified joint Expected: 06/10/2022, Expires: 06/10/2023 [facility] Comment on above: Expected: 06/10/2022, Expires: 3 Start: 06-10-2022 End: 06-10-2023 SEDIMENTATION RATE, AUTOMATED SEDIMENTATION RATE, AUTOMATED Lab Routine Arthralgia, unspecified joint Expected: 06/10/2022, Expires: 06/10/2023 [facility] Comment on above: Expected: 06/10/2022, Expires: Start: 06-10-2022 End: 06-10-2023 Urate [Mass/volume] in Serum or Plasma URIC ACID Lab Routine Arthralgia, unspecified joint Expected: 06/10/2022, Expires: 06/10/2023 [facility] Comment on above: Expected: 06/10/2022, Expires: Start: 04-29-2022 End: 04-29-2022 Patient encounter procedure 04/29/2022 Office Visit Urogynecology Allie Ray MD [address] [facility] [address] [place] [address] [facility] Start: 04-27-2022 End: 04-27-2022 Patient encounter procedure 04/27/2022 Office Visit Pa in Medicine ProEyal catherine MD [address] [place] [address] [facility] Pain Management Start: 04-15-2022 DIABETES SCREEN DIABETES SCREEN [facility] Start: 04-05-2022 End: 04-05-2022 Patient encounter procedure 04/05/2022 Office Visit Spine Surgery Jose Fraga MD [address] [place] [address] [facility] Spine Surgery Start: 03-31-2022 End: 03-31-2022 Patient encounter procedure 03/31/2022 Appointment Radiology Jose Fraga MD [address] [place] [address] [facility] [address] Scan Start: 03-16-2022 End: 03-16-2022 Patient encounter procedure 03/16/2022 Office Visit Spine Surgery Arianna Ng, YULIA [address] [place] [address] [facility] Spine Surgery Start: 03-16-2022 End: 09-16-2022 Radiologic examination of cervical spine, anteroposterior and lateral XR Cervical Spine AP/LAT Imaging Routine Status post cervical spinal fusion Protrusion of cervical intervertebral disc C4-5 with stenosis Expected: 03/16/2022 (Approximate), Expires: 09/16/2022 [facility] Work Phone: Comment on above: Expected: 03/16/2022 (Approximate), Expi res: 09/16/2022 Start: 2022 End: 2022 Patient encounter procedure [facility] H eart & Vascular Physicians Start: 03-07-2022 COVID-19 Vaccine (4 - Booster for Moderna series) COVID-19 Vaccine (4 - Booster for Moderna series) [facility] Start: 03-04-2022 Microalbumin measurement, urine, quantitative Urine Microalbumin [facility] Start: 03-04-2022 Urine screening for protein [facility] Start: 02-05-2022 COVID-19 Vaccine (4 - Booster for Moderna series) COVID-19 Vaccine (4 - Booster for Moderna series) [facility] Start: 12-23-2021 End: 12-23-2021 Patient encounter procedure 12/23/2021 Office Visit Urogynecology Allie Ray MD [address] [facility] [address] [place] [address] [facility]cology [facility] Start: 12-21-2021 End: 12-21-2021 Patient encounter procedure 12/21/2021 Office Visit Spine Surgery Jose Fraga MD [address] [place] [address] [facility] Spine Surgery Start: 12-08-2021 COVID-19 Vaccine (4 - Booster for Moderna series) COVID-19 Vaccine (4 - Booster for Moderna series) [facility] Start: 11-30-2021 COVID-19 Vaccine (4 - Booster for Moderna series) COVID-19 Vaccine (4 - Booster for Moderna series) [facility] Start: 11-10-2021 End: 11-10-2021 Patient encounter procedure 11/10/2021 Procedure visit Neurology Arianna Ng, [employer] [address] [place] [address] Lili Freitas MD [address] [address] [facility] Neurology Start: 11-02-2021 COVID-19 Vaccine (4 - Booster for Moderna series) COVID-19 Vaccine (4 - Booster for Moderna series) [facility] Start: 10-20-2021 End: 10-20-2021 Patient encounter procedure 10/20/2021 Office Visit Pulmonology Dilip Mckeon MD [address] [place] [address] [phone] [facility] Pulmonary Start: 10-01-2021 End: 10-01-2021 Patient encounter procedure 10/01/2021 Office Visit Spine Surgery Arianna Ng, [employer] [address] [place] [address] [facility] Spine Surgery Start: 09-25-2021 End: 06-25-2022 Radiologic examination of cervical spine, anteroposterior and lateral XR Cervical Spine AP/LAT Imaging Routine Status post cervical spinal fusion Protrusion of cervical intervertebral disc C4-5 with stenosis Expected: 09/25/2021 (Approximate), Expires: 06/25/2022 [facility] Work Phone: Comment on above: Expected: 09/25/2021 (Approximate), Expi res: 06/25/2022 Start: 09-04-2021 Hemoglobin A1c measurement A1C [facility] Start: 08-24-2021 End: 08-24-2021 Patient encounter procedure [facility] Pulmonary Start: 07-01-2021 Influenza vaccination Sequential Influenza Vaccine (#1) [facility] Start: 06-30-2021 End: 06-30-2021 Patient encounter procedure [facility] Allergy Clinical Immunology Start: 06-25-2021 End: 06-25-2021 Patient encounter procedure [facility] Spine Surgery Start: 06-25-2021 End: 03-25-2022 Radiologic examination of cervical spine, anteroposterior and lateral XR Cervical Spine AP/LAT Imaging Routine Protrusion of cervical intervertebral disc Status post cervical spinal fusion Expected: 06/25/2021 (Approximate), Expires: 03/25/2022 [facility] Comment on above: Expected: 06/25/2021 (Approximate), Expi res: 03/25/2022 Start: 06-03-2021 End: 06-03-2021 Patient encounter procedure 06/03/2021 Office Visit Cardiology Jose Parrish MD [address] [place] [address] [facility] Start: 06-01-2021 End: 06-01-2021 Patient encounter procedure 06/01/2021 Office Visit Primary Care [facility] Primary Care Physicians Start: 05-29-2021 End: 05-29-2021 Patient encounter procedure 05/29/2021 Office Visit Cardiology Jose Parrish MD [address] [place] [id number] [facility] Start: 05-28-2021 End: 05-28-2021 Patient encounter procedure 05/28/2021 Appointment Cardiology System, Provider Not In [facility] Vascular Start: 05-28-2021 End: 05-28-2021 Professional / ancillary services management 05/28/2021 Ancillary Procedure Cardiology System, Provider Not In [facility] Start: 05-25-2021 End: 05-25-2021 Telemedicine consultation with patient 05/25/2021 Telemedicine Telephone Pulmonology Dilip Mckeon MD [address] [place] [address] [phone] [facility] Pulmonary Start: 05-25-2021 End: 05-25-2021 Telemedicine consultation with patient 05/25/2021 Telemedicine Telephone Pulmonology Dilip Mckeon MD [address] [place] [address] [phone] Arrived [facility] Pulmonary Comment on above: Arrived Start: 05-18-2021 End: 05-18-2021 Patient encounter procedure 05/18/2021 Office Visit Primary Care [facility]icians Start: 04-21-2021 End: 04-21-2021 Patient encounter procedure 04/21/2021 Office Visit Pulmonology Dilip Mckeon MD [address] [place] [address] [phone] [facility] Pulmonary Start: 04-20-2021 End: 04-20-2021 Patient encounter procedure 04/20/2021 Office Visit Cardiology Pablo Mullen MD [address] [place] [address] [phone] [facility] Cardiology Start: 04-01-2021 End: 04-01-2021 Follow-Up 04/01/2021 Follow-Up Spine Surgery Arianna Ng, YULIA [address] [place] [address] [facility] Spine Surgery Start: 03-23-2021 End: 03-23-2021 Follow-up encounter 03/23/2021 Follow-Up Spine Surgery Arianna Ng, YULIA [address] [place] [address] [phone] [facility] Spine Surgery Start: 03-19-2021 End: 03-19-2021 Hospital Encounter [facility] Comment on above: Anterior cervical discectomy fusion cerv ical4-5 with plate and allograft Start: 03-13-2021 End: 03-13-2021 Admission to same day surgery center 03/13/2021 Surgery Jose Fraga MD [address] [place] [address] Anterior cervical discectomy fusion cervical4-5 with plate and allograft [facility] Comment on above: Anterior cervical discectomy fusion cerv ical4-5 with plate and allograft Start: 03-13-2021 Subsequent hospital visit by physician 03/13/2021 Hospital Encounter Jose Fraga MD [address] [facility] [place] [address] [facility] Start: 03-11-2021 End: 03-11-2021 Clinical Support 03/11/2021 Clinical Support Pre-Admission Testing [facility] Preadmission Testing Start: 03-06-2021 End: 03-06-2021 Admission to establishment 03/06/2021 Clinical Support Pre-Admission Testing [facility] Preadmission Testing Start: 02-26-2021 End: 02-26-2021 Patient encounter procedure [facility] Pul[facility] Start: 02-18-2021 COVID-19 Vaccine (3 - Moderna risk 3-dose series) COVID-19 Vaccine (3 - Moderna risk 3-dose series) [facility] Start: 02-16-2021 End: 02-16-2021 Treatment 02/16/2021 Treatment Rehabilitation Jose Yu MD [address] [place] [address] Orin Esposito, PT [facility] Physical Therapy Start: 02-11-2021 End: 02-11-2021 Office Visit 02/11/2021 Office Visit Spine Surgery Harmony Gee MD [address] [place] [address] Jose Fraga MD [address] [place] [address] [phone] [facility] Spine Surgery Start: 02-03-2021 End: 02-03-2021 Treatment 02/03/2021 Treatment Jose Martinez MD [address] [place] [address] [phone] Orin Esposito, [facility] Physical Therapy Start: 01-27-2021 End: 01-27-2021 Treatment 01/27/2021 Treatment Rehabilitation Jose Yu MD [address] [place] [address] [phone] Dylon Abdul, [facility] Physical Therapy Start: 01-22-2021 End: 01-22-2021 Treatment 01/22/2021 Treatment Jose Martinez MD [address] [place] [address] [phone] Jose R Larios, [facility] Physical Therapy Start: 01-14-2021 End: 01-14-2021 Treatment 01/14/2021 Treatment Rehabilitation Dylon Abdul, [facility] Physical Therapy Start: 01-12-2021 End: 01-12-2021 Treatment 01/12/2021 Treatment Rehabilitation Orin Esposito, [facility] Physical Therapy Start: 01-08-2021 End: 01-08-2021 Treatment 01/08/2021 Treatment Rehabilitation Jose R Larios [facility] Physical Therapy Start: 01-05-2021 End: 01-05-2021 Treatment 01/05/2021 Treatment Rehabilitation Dylon Abdul, [facility] Physical Therapy Start: 12-31-2020 End: 12-31-2020 Treatment 12/31/2020 Treatment Rehabilitation Dylon Abdul, [facility] Physical Therapy Start: 12-30-2020 End: 12-30-2020 Office Visit 12/30/2020 Office Visit Pain Medicine ProkEyal MD [address] [facility] [place] [address] [phone] [facility] Pain Management Start: 12-29-2020 End: 12-29-2020 Treatment 12/29/2020 Treatment Rehabilitation Dylon Abdul, [facility] Physical Therapy Start: 12-25-2020 End: 12-25-2020 Treatment 12/25/2020 Treatment Rehabilitation Orin Esposito, [facility] Physical Therapy Start: 12-23-2020 End: 12-23-2020 Treatment 12/23/2020 Treatment Rehabilitation Jose R Larios, [facility] Physical Therapy Start: 12-18-2020 End: 12-18-2020 Treatment 12/18/2020 Treatment Rehabilitation Jose R Larios, [facility] Physical Therapy Start: 12-16-2020 End: 12-16-2020 Treatment 12/16/2020 Treatment Rehabilitation Orin Esposito, [facility] Physical Therapy Start: 12-12-2020 End: 12-12-2020 Treatment 12/12/2020 Treatment Jose Martinez MD [address] [place] [address] [phone] Dylon Abdul, [facility] Physical Therapy Start: 12-11-2020 End: 12-11-2020 Treatment 12/11/2020 Treatment Rehabilitation Jose R Larios [facility] Physical Therapy Start: 12-10-2020 End: 12-10-2020 Treatment 12/10/2020 Treatment Jose Martinez MD [address] [place] [address] [phone] Jose R Larios, [facility] Physical Therapy Start: 12-09-2020 End: 12-09-2020 Treatment 12/09/2020 Treatment Rehabilitation Dylon Abdul, [facility] Physical Therapy Start: 12-08-2020 End: 12-08-2020 Treatment 12/08/2020 Treatment Rehabilitation Jose Yu MD [address] [place] [address] [phone] Dylon Abdul, [facility] Physical Therapy Start: 12-04-2020 End: 12-04-2020 Treatment 12/04/2020 Treatment Rehabilitation Jose R Larios, [facility] Physical Therapy Start: 12-02-2020 End: 12-02-2020 Treatment 12/02/2020 Treatment Rehabilitation Jose R Larios, [facility] Physical Therapy Start: 11-27-2020 End: 11-27-2020 Treatment 11/27/2020 Treatment Rehabilitation Dylon Abdul, [facility] Physical Therapy Start: 11-26-2020 End: 11-26-2020 Office Visit 11/26/2020 Office Visit Neurology Harmony Gee MD [address] [place] [id number] Clarissa Luna MD [address] [place] [address] [phone] [facility] Neurology Start: 11-25-2020 End: 11-25-2020 Evaluation 11/25/2020 Evaluation Rehabilitation Jose Yu MD [address] [place] [address] [phone] Orin Esposito, [facility] Physical Therapy Start: 11-24-2020 End: 11-24-2020 Office Visit 11/24/2020 Office Visit Physical Medicine and Rehabilitation Jose Yu MD [address] [place], [place] [id number] Dylan Savage MD [address] [place] [address] [phone] [facility] Physiatry Start: 11-20-2020 End: 11-20-2020 Evaluation 11/20/2020 Evaluation Rehabilitation Jose Yu MD [address] [place] [address] [phone] Hans Wood, TORSTEN [facility] Physical Therapy Start: 09-22-2020 End: 09-22-2020 Office Visit 09/22/2020 Office Visit Pain Medicine Eyal Duron MD [address] [place] [address] [phone] [facility] Pain Management Start: 08-28-2020 End: 08-28-2020 Office Visit 08/28/2020 Office Visit Urogynecology Allie Ray MD [address] [address] [phone] [facility]necology [facility] Start: 08-18-2020 End: 08-18-2020 Appointment 08/18/2020 Appointment Pulmonology [facility] Pulmonary Lab Start: 07-24-2020 End: 07-24-2020 Appointment 07/24/2020 Appointment Radiology Harmony Gee MD [address] [place], [place] [id number] [facility] MRI Start: 07-22-2020 End: 07-22-2020 Office Visit 07/22/2020 Office Visit Pain Medicine Eyal Duron MD [address] [place] [address] [phone] [facility] Pain Management Start: 07-01-2020 Influenza vaccination given Sequential Influenza Vacci ne (#1) [facility] Start: 03-18-2020 End: 03-18-2020 Office Visit 03/18/2020 Office Visit Pain Medicine Eyal Duron MD [address] [place] [address] [phone] [facility] Pain Management Start: 01-31-2020 End: 01-31-2020 Treatment 01/31/2020 Treatment Rehabilitation Renea Franco, [facility] [facility] Start: 01-29-2020 End: 01-29-2020 Office Visit 01/29/2020 Office Visit Pain Medicine Eyal Duron MD [address] [place] [address] [phone] [facility] Start: 01-28-2020 End: 01-28-2020 Treatment 01/28/2020 Treatment Rehabilitation Mario Hurtado, [facility] Therapy Start: 01-25-2020 End: 01-25-2020 Treatment 01/25/2020 Treatment Rehabilitation Renea Franco, [facility] Therapy Start: 01-21-2020 End: 01-21-2020 Treatment 01/21/2020 Treatment Rehabilitation Alana Mi, [facility] Physical Therapy Start: 01-16-2020 End: 01-16-2020 Treatment 01/16/2020 Treatment Rehabilitation Alana Mi, [facility] Therapy Start: 01-14-2020 End: 01-14-2020 Treatment 01/14/2020 Treatment Rehabilitation Mario Hurtado, [facility] Therapy Start: 01-10-2020 End: 01-10-2020 Treatment 01/10/2020 Treatment Rehabilitation Renea Franco, [facility] Therapy Start: 01-07-2020 End: 01-07-2020 Treatment 01/07/2020 Treatment Rehabilitation Mario Hurtado, [facility] Therapy Start: 01-04-2020 End: 01-04-2020 Treatment 01/04/2020 Treatment Rehabilitation Gilson Asencio, [facility] Therapy Start: 11-27-2019 End: 11-27-2019 Office Visit 11/27/2019 Office Visit Pain Medicine Eyal Duron MD [address] [place] [address] [phone] [facility] Pain Management Start: 10-15-2019 HbA1c (Bld) [Mass fraction] A1C [facility] Start: 10-01-2019 End: 10-01-2019 Appointment 10/01/2019 Appointment Radiology Giovanni Hodges MD [address] [facility] [address] [place] [address] [phone] [facility] MRI Start: 09-25-2019 End: 09-25-2019 Office Visit 09/25/2019 Office Visit Pain Medicine Ruby Boucher, [employer] [address] [place] [address] [phone] [facility] Start: 09-23-2019 HbA1c (Bld) [Mass fraction] A1C [facility] Start: 08-30-2019 End: 08-30-2019 Treatment 08/30/2019 Treatment Rehabilitation Alejo Hummel MD [address] [place] [address] [phone] Orin Esposito, [facility] Physical Therapy Start: 08-27-2019 End: 08-27-2019 Treatment 08/27/2019 Treatment Rehabilitation Alejo Hummel MD [address] [place] [address] [phone] Jaymie Arredondo, [facility] Start: 08-23-2019 End: 08-23-2019 Treatment 08/23/2019 Treatment Rehabilitation Alejo Hummel MD [address] [place] [address] [phone] Orin Esposito, [facility] Therapy Start: 08-20-2019 End: 08-20-2019 Treatment 08/20/2019 Treatment Rehabilitation Alejo Hummel MD [address] [place] [address] [phone] Jaymie Arredondo, [facility] Therapy Start: 08-15-2019 End: 08-15-2019 Treatment 08/15/2019 Treatment Rehabilitation Alejo Hummel MD [address] [place] [address] [phone] Araseli Forrest, [facility] Therapy Start: 08-13-2019 End: 08-13-2019 Treatment 08/13/2019 Treatment Rehabilitation Alejo Hummel MD [address] [place] [address] [phone] Araseli Forrest, [facility] Therapy Start: 08-08-2019 End: 08-08-2019 ambulatory 08/08/2019 Treatment Rehabilitation Alejo Hummel MD [address] [place] [address] [phone] Araseli Forrest, [facility] Start: 08-06-2019 End: 08-06-2019 Treatment 08/06/2019 Treatment Rehabilitation Alejo Hummel MD [address] [place] [address] [phone] Jaymie Arredondo, [facility] Start: 08-02-2019 End: 08-02-2019 Treatment 08/02/2019 Treatment Rehabilitation Alejo Hummel MD [address] [place] [address] [phone] Renea Franco, [facility] Start: 07-31-2019 End: 07-31-2019 Office Visit 07/31/2019 Office Visit Pain Medicine Ruby Boucher, [employer] [address] [place] [address] [phone] [facility] Start: 07-30-2019 End: 07-30-2019 ambulatory 07/30/2019 Treatment Rehabilitation Alejo Hummel MD [address] [place] [address] [phone] Jaymie Arredondo, [facility] Start: 07-18-2019 Albumin DL <= 20 mg/L mass conc (U) URINE MICROALBUMIN [facility] Start: 07-01-2019 Influenza vaccination SEQUENTIAL INFLUENZA VACCINE (#1) [facility] Start: 07-01-2019 Influenza vaccination given [facility] Start: 06-09-2019 Ophthalmic examination and evaluation Ophthalmology Exam [facility] Start: 05-31-2019 End: 05-31-2019 Office Visit 05/31/2019 Office Visit Pain Medicine Ruby Boucher, YULIA [address] [place] [address] [phone] [facility] Start: 01-18-2019 End: 01-18-2019 Office Visit 01/18/2019 Office Visit Pain Medicine Eyal Duron MD [address] [place] [address] [phone] [facility] Start: 01-15-2019 Hemoglobin A1c/Hemoglobin.total mass fraction (Bld) HEMOGLOBIN A1C [facility] Start: 12-04-2018 End: 12-04-2018 Procedure visit 12/04/2018 Procedure visit Physical Medicine and Rehabilitation Harmony Mejias DPM [address] [place] [address] Dylan Savage MD [address] [place] [address] [phone] [facility] Physiatry Start: 10-03-2018 Colonoscopy COLONOSCOPY [facility] Work Phone: Start: 10-03-2018 Colonoscopy COLONOSCOPY [facility] Work Phone: Start: 10-03-2018 Protein mass conc COLONOSCOPY [facility] Start: 10-03-2018 Screening colonoscopy COLONOSCOPY [facility] Work Phone: Start: 10-03-2018 Screening for malignant neoplasm of colon [facility] Start: 10-02-2018 End: 10-02-2018 Ambulatory 10/02/2018 Office Visit Otolaryngology Zac Ovalle MD [address] [place] [address] [phone] [facility] Start: 09-19-2018 End: 09-19-2018 Ambulatory 09/19/2018 Office Visit Pain Medicine Eyal Duron MD [address] [place] [address] [phone] [facility] Start: 09-04-2018 End: 09-04-2018 Ambulatory 09/04/2018 Office Visit Otolaryngology Zac Ovalle MD [address] [facility] [address] [place] [address] [phone] [facility] Start: 07-27-2018 End: 07-27-2018 Ambulatory 07/27/2018 Treatment Rehabilitation Harmony Gee MD [address] [place] [address] [phone] Jaymie Arredondo, [facility] Start: 07-20-2018 End: 07-20-2018 Ambulatory 07/20/2018 Office Visit Pain Medicine Eyal Duron MD [address] [place] [address] [phone] [facility] Start: 07-13-2018 End: 07-13-2018 Ambulatory 07/13/2018 [place] [address] [place] [address] [phone] Mario Hurtado, [facility] Start: 07-01-2018 Influenza [facility] Start: 07-01-2018 Influenza vaccination given SEQUENTIAL INFLUENZA VACCI NE (#1) [facility] Start: 04-19-2018 End: 04-19-2018 Ambulatory 04/19/2018 Treatment Rehabilitation Gabo Sears MD [address] [place] [address] [phone] Bernadette Ordaz, [facility] Start: 04-12-2018 End: 04-12-2018 Ambulatory 04/12/2018 Treatment Gabo Espino MD [address] [place] [address] [phone] Bernadette Ordaz, [facility] Start: 04-05-2018 End: 04-05-2018 Ambulatory 04/05/2018 Treatment Gabo Espino MD [address] [place] [address] [phone] Bernadette Ordazformerly [facility] Start: 03-29-2018 End: 03-29-2018 Ambulatory 03/29/2018 Treatment Gabo Espino MD [address] [place] [address] [phone] Bernadette Ordaz, [facility] Start: 03-22-2018 End: 03-22-2018 Ambulatory 03/22/2018 Treatment Gabo Espino MD [address] [place] [address] [phone] Bernadette Ordazformerly [facility] Start: 03-13-2018 End: 03-13-2018 Ambulatory 03/13/2018 Office Visit Pain Medicine ProkEyal MD [address] [place] [address] [phone] [facility] Start: 2018 BONE DENSITY BONE DENSITY [facility] Start: 2018 Fall risk assessment [facility] Start: 2018 Pneumococcal vaccination [facility] Start: 2018 Screening for osteoporosis Bone Density Screening [facility] Start: 02-27-2018 Ambulatory [facility] Start: 01-12-2018 Ambulatory 01/12/2018 Treatment Alejo Sanders MD [address] [place] [address] [phone] Jaymie Arredondo, [facility] Start: 01-10-2018 Ambulatory 01/10/2018 Treatment Rehabilitation Alejo Hummel MD [address] [place] [address] [phone] Jaymie Arredondo, [facility] Start: 01-09-2018 Ambulatory 01/09/2018 Office Visit Pain Medicine Eyal Duron MD [address] [facility] [place] [address] [phone] [facility] Start: 12-29-2017 Ambulatory 12/29/2017 Office Visit Pain Medicine Eyal Duron MD [address] [place] [address] [phone] [facility] Start: 11-10-2017 Ambulatory 11/10/2017 Office Visit Pain Medicine Eyal Duron MD [address] [facility] [place] [address] [phone] [facility] Start: 11-08-2017 Ambulatory [facility] Start: 11-03-2017 Ambulatory 11/03/2017 Office Visit Pre-Admission Testing Alejo Hummel MD [address] [place] [address] [phone] Degeneration of lumbar intervertebral disc (Primary Dx); Degenerative disc disease at L5-S1 level [facility] Start: 09-14-2017 Ambulatory 09/14/2017 Office Visit Pain Eyal Rehman MD [address] [place] [address] [phone] [facility] Start: 07-18-2017 Ambulatory 07/18/2017 Office Visit Pain Medicine Eyal Duron MD [address] [place] [address] [phone] [facility] Start: 07-01-2017 Influenza vaccination SEQUENTIAL INFLUENZA VACCINE (#1) [facility] Work Phone: Start: 07-01-2017 SEQUENTIAL INFLUENZA VACCINE (#1) SEQUENTIAL INFLUENZA VACCINE (#1) [facility] Work Phone: Start: 06-30-2017 Ambulatory 06/30/2017 Office Visit Pain Medicine Prok, Eyal Parker MD [address] [place] [address] [phone] [facility] Start: 11-04-2014 Administration of herpes zoster vaccine [facility] Start: 10-31-2013 Tetanus vaccination TETANUS EVERY 10 YR [facility] Start: 2013 Respiratory Syncytial Virus Immunization: Risk, 60-74 Risk, or 75+ (1 - Risk 60-74 years 1-dose series) Respiratory Syncytial Virus Immunization: Risk, 60-74 Risk, or 75+ (1 - Risk 60-74 years 1-dose series) [facility] Start: 2013 RSV Vaccine (1 - 1-dose 60+ series) RSV Vaccine (1 - 1-dose 60+ series) [facility] Start: 2013 Zoster vacc, sc ZOSTER VACCINE [facility] Work Phone: Start: 12-15-2012 Potassium [Moles/volume] in Serum or Plasma [facility] Start: 10-04-2011 Cytopathology procedure, preparation of smear, genital source PAP SMEAR [facility] Work Phone: Start: 10-04-2011 Microscopic observation Cyto stain Nom (Cvx) PAP SMEAR [facility] Work Phone: Start: 10-04-2011 Screening for malignant neoplasm of cervix PAP SMEAR [facility] Work Phone: Start: 2003 Administration of herpes zoster vaccine ZOSTER VACCINES (1 of 2) [facility] Start: 2003 Screening for malignant neoplasm of colon [facility] Start: 2003 Zoster vaccine hzv live for subcutaneous use ZOSTER (SHINGLES) VACCINE (1 of 2) [facility] Start: 2003 ZOSTER VACCINES (1 of 2) ZOSTER VACCINES (1 of 2) [facility] Start: 1998 COLOGUARD (FIT-DNA) COLOGUARD (FIT-DNA) [facility] Start: 1998 Colonoscopy [facility] Start: 1998 COLORECTAL CANCER SCREENING COLORECTAL CANCER SCREENING [facility] Start: [address] COLONOGRAPHY [facility] Start: 1998 FECAL OCCULT BLOOD FECAL OCCULT BLOOD [facility] Start: 1998 Screening for malignant neoplasm of colon [facility] Start: 1998 SIGMOIDOSCOPY SIGMOIDOSCOPY [facility] Start: 1993 Fasting lipid profile LIPID SCREENING [facility] Start: 1993 Lipid panel LIPID SCREENING [facility] Start: 1993 Mammography MAMMOGRAM [facility] Start: 1993 Screening for malignant neoplasm of breast [facility] Start: 1993 Screening mammography [facility] Start: 1974 Screening for malignant neoplasm of cervix CERVICAL CANCER SCREENING DISCUSSION [facility] Start: 1972 Third diphtheria, tetanus and acellular pertussis (DTaP) vaccination TDAP (ADULT) [facility] Start: 1971 Anxiety Screening Anxiety Screening [facility] Start: 1971 Depression Screening Depression Screening [facility] Start: 1971 Hepatitis C antibody, confirmatory test Hepatitis C Screening [facility] Start: 1971 Hepatitis C screening Hepatitis C Screening [facility] Start: 1971 HEPATITIS C SCREENING HEPATITIS C SCREENING [facility] Start: 1971 Tetanus vaccination TETANUS [facility] Start: 1969 COVID-19 Vaccine (1 of 2) COVID-19 Vaccine (1 of 2) [facility] Start: 1969 COVID-19 Vaccine (1) COVID-19 Vaccine (1) [facility] Start: 1963 Glaucoma screening Diabetic Eye Exam [facility] Start: 1963 End: 1963 Diabetic foot examination (regime/therapy) [facility] Start: 1963 End: 1963 Ophthalmic examination and evaluation OPHTHALMOLOGY EXAM [facility] Start: 1959 Pneumococcal Vaccine: Age 65+ (1 of 4 - PCV13) Pneumococcal Vaccine: Age 65+ (1 of 4 - PCV13) [facility] Start: 1956 History and physical examination, annual for health maintenance Wellness Visit [facility] Start: 1956 Medicare Wellness Visit Medicare Wellness Visit [facility] Start: 1953 COVID-19 VACCINE (#1) COVID-19 VACCINE (#1) [facility] Start: 1953 Depression screening using PHQ-9 (Patient Health Questionnaire 9) score DEPRESSION SCREENING (PHQ9) [facility] Start: 1953 Fall risk assessment Falls Risk Assessment [facility] Start: 1953 Hepatitis C antibody, confirmatory test [facility] Start: 1953 Hepatitis C screening [facility] Start: 1953 Protein mass conc MAMMOGRAM [facility] Start: 1953 Screening for malignant neoplasm of colon [facility] Start: 1953 Screening for osteoporosis DEXA SCAN DISCUSSION [facility] Start: 1953 End: 1953 FECAL OCCULT BLOOD TEST FECAL OCCULT BLOOD TEST [facility] Work Phone: Start: 1953 End: 1953 HEPATITIS C SCREENING HEPATITIS C SCREENING [facility] Work Phone: Start: 1953 End: 1953 Mammography MAMMOGRAM [facility] Work Phone: Start: 1953 End: 1953 Measurement of occult blood in single stool specimen FECAL OCCULT BLOOD TEST [facility] Work Phone: Start: 1953 End: 1953 Screening mammography MAMMOGRAM [facility] Work Phone: Start: 1953 End: 1953 TETANUS EVERY 10 YR TETANUS EVERY 10 YR [facility] Work Phone: Start: 1953 Tetanus vaccination TETANUS EVERY 10 YR [facility] Work Phone: End: 02-12-2022 12 lead ECG ECG 12 Lead ECG Routine Preop testing 1 Occurrences starting 02/12/2021 until 02/12/2022 [facility] Comment on above: 1 Occurrences starting 02/12/2021 until 02/12/2022 End: 07-07-2024 12 lead ECG ECG 12 Lead ECG Routine Pre-operative cardiovascular examination 1 Occurrences starting 07/07/2023 until 07/07/2024 [facility] Comment on above: 1 Occurrences starting 07/07/2023 until 07/07/2024 End: 09-22-2022 Bacteria identified in Unspecified specimen by Aerobe culture Urine Aerobic Culture Microbiology Routine Dysuria 1 Occurrences starting 09/22/2021 until 09/22/2022 [facility] Work Phone: Comment on above: 1 Occurrences starting 09/22/2021 until 09/22/2022 Bacteria identified in Unspecified specimen by Aerobe culture Urine Aerobic Culture Microbiology Routine Dysuria 09/22/2021 3:10 PM EST [facility] End: 02-12-2022 Blood type and Indirect antibody screen panel - Blood Type and screen Blood Bank Routine Preop testing 1 Occurrences starting 02/12/2021 until 02/12/2022 [facility] Comment on above: 1 Occurrences starting 02/12/2021 until 02/12/2022 End: 07-07-2024 Blood type and Indirect antibody screen panel - Blood Type and screen Blood Bank Routine Preop examination 1 Occurrences starting 07/07/2023 until 07/07/2024 [facility] Comment on above: 1 Occurrences starting 07/07/2023 until 07/07/2024 Cologuard Cologuard Lab Ro utine Screening for colon cancer Ordered: 06/18/2025 [facility] Comment on above: Ordered: 06/18/2025 Cologuard Cologuard Lab Ro utine Screening and evaluation for female sterilization Ordered: 08/06/2025 [facility] Work Phone: Comment on above: Ordered: 08/06/2025 End: 02-12-2022 Complete blood count with white cell differential, manual CBC and differential Lab Routine Preop testing 1 Occurrences starting 02/12/2021 until 02/12/2022 [facility] Comment on above: 1 Occurrences starting 02/12/2021 until 02/12/2022 End: 07-07-2024 Complete blood count with white cell differential, manual CBC and differential Lab Routine Preop examination 1 Occurrences starting 07/07/2023 until 07/07/2024 [facility] Comment on above: 1 Occurrences starting 07/07/2023 until 07/07/2024 End: 09-12-2024 Complete blood count with white cell differential, manual CBC and Differential Lab Routine S/P lumbar fusion Acute bilateral low back pain without sciatica 1 Occurrences starting 09/13/2023 until 09/12/2024 [facility] Comment on above: 1 Occurrences starting 09/13/2023 until 09/12/2024 End: 02-12-2022 Comprehensive metabolic 2000 panel Comprehensive Metabolic Panel Lab Routine Preop testing 1 Occurrences starting 02/12/2021 until 02/12/2022 [facility] Comment on above: 1 Occurrences starting 02/12/2021 until 02/12/2022 End: 07-07-2024 Comprehensive metabolic 2000 panel - Serum or Plasma Comprehensive Metabolic Panel Lab Routine Preop examination 1 Occurrences starting 07/07/2023 until 07/07/2024 [facility] Comment on above: 1 Occurrences starting 07/07/2023 until 07/07/2024 Drugs of Abuse Screen, Urine [facility] Work Phone: End: 08-28-2024 Echocardiography Echocardiogram complete Echocardiography Routine Essential hypertension, malignant 1 Occurrences starting 06/28/2023 until 08/28/2024 [facility] Work Phone: Comment on above: 1 Occurrences starting 06/28/2023 until 08/28/2024 End: 06-29-2026 Echocardiography Echocardiogram complete Echocardiography Routine Heart failure, unspecified HF chronicity, unspecified heart failure type (HCC) 1 Occurrences starting 04/29/2025 until 06/29/2026 [facility] Work Phone: Comment on above: 1 Occurrences starting 04/29/2025 until 06/29/2026 End: 09-12-2024 Erythrocyte sedimentation rate Sedimentation Rate Lab Routine S/P lumbar fusion 1 Occurrences starting 09/13/2023 until 09/12/2024 [facility] Comment on above: 1 Occurrences starting 09/13/2023 until 09/12/2024 Esophagogastroduoden oscopy transoral diagnostic ESOPHAGOGASTRODUODENOSCOPY [facility] Urine D rug Screen [facility] Comment on above: Ordered: 11/21/2018 Ordered: 06/01/2019 Glucose [Mass/volume ] in Serum or Plasma POC Glucose Point of Care Testing Routine 03/13/2021 10:04 AM EDT [facility] End: 02-12-2022 Incentive spirometry - Initial Instruction Incentive spirometry - Initial Instruction Respiratory Care Routine Preop testing 1 Occurrences starting 02/12/2021 until 02/12/2022 [facility] Comment on above: 1 Occurrences starting 02/12/2021 until 02/12/2022 End: 07-07-2024 Incentive spirometry - Initial Instruction Incentive spirometry - Initial Instruction Respiratory Care Routine Preop examination 1 Occurrences starting 07/07/2023 until 07/07/2024 [facility] Work Phone: Comment on above: 1 Occurrences starting 07/07/2023 until 07/07/2024 INST - NAVIGATIONAL SPINE INST - NAVIGATIONAL SPINE Spinal stenosis, lumbar region, with neurogenic claudication [facility] LAMINECTOMY DECOMPRE SSION THORACIC WITH FUSION 4 OR MORE LEVEL [facility] End: 11-25-2023 MR Shoulder Left Without Contrast MR Shoulder Left Without Contrast Imaging Routine Left shoulder pain, unspecified chronicity 1 Occurrences starting 11/24/2022 until 11/25/2023 [facility] Work Phone: Comment on above: 1 Occurrences starting 11/24/2022 until 11/25/2023 End: 07-24-2020 MRI of cervical spine without contrast MR Cervical Spine Without Contrast Imaging Routine Spinal stenosis in cervical region Once for 1 Occurrences starting 07/24/2020 until 07/24/2020 [facility] Comment on above: Once for 1 Occurrences starting 07/24/20 20 until 07/24/2020 MRI of cervical spin e without contrast MR Cervical Spine Without Contrast Imaging Routine Spinal stenosis in cervical region 07/24/2020 4:11 PM EDT [facility] End: 05-21-2024 Mri spinal canal lumbar w/o & w/contr matrl MRI LUMBAR SPINE WO/W IVCON Radiology Routine Radiculopathy of lumbar region 1 Occurrences starting 04/22/2023 until 05/21/2024 [facility] Work Phone: Comment on above: 1 Occurrences starting 04/22/2023 until 05/21/2024 NM Gallbladder Views for ejection fraction W Tc-99m DISIDA IV NM Hepatobiliary With Ejection Fraction Imaging Routine Nausea Ordered: 06/18/2025 [facility] Work Phone: Comment on above: Ordered: 06/18/2025 Procedure on tissue specimen [facility] Comment on above: Release Upon Ordering for 1 Occurrences starting 03/13/2021 STAGE I TEST SACRAL NEUROSTIMULATOR STAGE I TEST SACRAL NEUROSTIMULATOR Urge urinary incontinence [facility] STAGE II SACRAL NEUROSTIMULATOR STAGE II SACRAL NEUROSTIMULATOR Urge urinary incontinence [facility] End: 02-12-2022 Standard chest X-ray XR Chest AP/PA and LAT Imaging Routine Preop testing 1 Occurrences starting 02/12/2021 until 02/12/2022 [facility] Comment on above: 1 Occurrences starting 02/12/2021 until 02/12/2022 End: 07-07-2024 Standard chest X-ray XR Chest AP/PA and LAT Imaging Routine Preop examination 1 Occurrences starting 07/07/2023 until 07/07/2024 [facility] Comment on above: 1 Occurrences starting 07/07/2023 until 07/07/2024 End: 05-15-2026 US Abdomen limited US Abdomen Limited Study Imaging STAT Nausea 1 Occurrences starting 05/14/2025 until 05/15/2026 [facility] Work Phone: Comment on above: 1 Occurrences starting 05/14/2025 until 05/15/2026 XR Knee - left 3 Views XR KNEE L EFT 3 VIEWS Imaging Routine Acute pain of both knees Ordered: 07/27/2022 [facility] Comment on above: Ordered: 07/27/2022 End: 06-25-2022 XR Lumbar Spine Standard with Flex/Ext 4+ Views XR Lumbar Spine Standard with Flex/Ext 4+ Views Imaging Routine DDD (degenerative disc disease), lumbar 1 Occurrences starting 06/25/2021 until 06/25/2022 [facility] Comment on above: 1 Occurrences starting 06/25/2021 until 06/25/2022 XR Lumbar Spine Tobin dard with Flex/Ext 4+ Views XR Lumbar Spine Standard with Flex/Ext 4+ Views Imaging Routine DDD (degenerative disc disease), lumbar 06/25/2021 2:46 PM EDT [facility] End: 04-13-2025 XR Shoulder - left 3 Views XR SHOULDER GENERAL 3V OR MORE AP/TRUE AP/OTHER LEFT Radiology Routine Left shoulder pain, unspecified chronicity 1 Occurrences starting 03/14/2024 until 04/13/2025 [facility] Work Phone: Comment on above: 1 Occurrences starting 03/14/2024 until 04/13/2025 End: 09-13-2024 XR Thoracolumbar 2+ Views XR Thoracolumbar 2+ Views Imaging Routine S/P lumbar fusion 1 Occurrences starting 09/13/2023 until 09/13/2024 [facility] Work Phone: Comment on above: 1 Occurrences starting 09/13/2023 until 09/13/2024 End: 09-15-2024 XR Thoracolumbar 2+ Views XR Thoracolumbar 2+ Views Imaging Routine Fracture of vertebra due to osteoporosis, initial encounter (HCC) 1 Occurrences starting 09/15/2023 until 09/15/2024 [facility] Work Phone: Comment on above: 1 Occurrences starting 09/15/2023 until 09/15/2024 [facility] Immunizations Immunization Date Immunization Notes Care Provider [facility] 08-06-2025 influenza, high dose seasonal, preservative-free Ruiz Alcantar MD Work Phone: [facility] 08-14-2024 influenza, high dose seasonal, preservative-free Reji Jarad [facility] 08-14-2024 Pneumococcal Conjuga te 20-Valent (Prevnar 20) Reji Jarad [facility] 08-14-2024 pneumococcal conj. 20-valent (PREVNAR 20) 0.5 mL vaccine Reji Jarad [facility] 08-14-2024 influenza virus vacc ine, unspecified formulation Dc Wells MD Work Phone: [facility] 09-23-2023 Influenza IIV4 high dose 65 and Older Ruiz Alcantar MD Work Phone: [facility] 04-06-2023 zoster vaccine recombinant Zafar Faith DO Work Phone: [facility] 12-15-2022 zoster vaccine recombinant Zafar Faith DO Work Phone: [facility] 10-06-2022 influenza (aIIV4) vaccine, age 65+ yr, quadrivalent, PF (FLUAD QUAD) Zafar Faith DO Work Phone: [facility] 10-06-2022 influenza virus vacc ine, unspecified formulation Giacomo Vanessa MD Work Phone: [facility] 11-18-2021 zoster vaccine recombinant Zafar Faith DO Work Phone: [facility] 09-07-2021 influenza (HD-IIV4) vaccine, age 65+ yr, high dose, quadrivalent, PF (FLUZONE HIGH-DOSE) Zafar Faith DO Work Phone: [facility] 09-07-2021 influenza nasal, unspecified formulation Zafar Faith DO Work Phone: [facility] 09-07-2021 influenza virus vacc ine, unspecified formulation Raoul Lundy MD Work Phone: [facility] 07-15-2021 zoster vaccine recombinant Zafar Faith DO Work Phone: [facility] 01-21-2021 Moderna SARS-CoV-2 Vaccination Keesha Kinsey DO Work Phone: [facility] 12-23-2020 Moderna SARS-CoV-2 Vaccination Keesha Kinsey DO Work Phone: [facility] 09-09-2020 pneumococcal polysaccharide vaccine, 23 ranjana Alcantar MD Work Phone: [facility] 08-31-2020 pneumococcal polysaccharide vaccine, Lidia Alcantar MD Work Phone: [facility] 08-12-2020 pneumococcal polysaccharide vaccine, 23 ranjana Alcantar MD Work Phone: [facility] 08-10-2020 pneumococcal polysaccharide vaccine, Lidia Alcantar MD Work Phone: [facility] 07-16-2020 Influenza IIV4 high dose 65 and Older Allie Ray MD Work Phone: [facility] 07-16-2020 influenza, high dose seasonal, preservative-free Keesha Nace DO Work Phone: [facility] 07-15-2020 pneumococcal polysaccharide vaccine, 23 valent Ruiz Alcantar MD Work Phone: [facility] 09-03-2019 influenza, injectabl e, quadrivalent, preservative free Keesha Nace DO Work Phone: [facility] 09-03-2019 pneumococcal polysaccharide vaccine, 23 valent Keesha Nace DO Work Phone: [facility] 04-23-2019 tetanus toxoid, redu arelis diphtheria toxoid, and acellular pertussis vaccine, adsorbed Keesha Nace DO Work Phone: [facility] 07-18-2018 HEMOGLOBIN A1C Zac [facility] 07-12-2018 influenza, injectabl e, quadrivalent, preservative free Keesha Nace DO Work Phone: [facility] 08-15-2017 seasonal influenza, intradermal, preservative free Ruiz Alcantar MD Work Phone: [facility] 08-09-2017 influenza, injectabl e, quadrivalent, preservative free Keesha Nace DO Work Phone: [facility] 01-03-2017 influenza, injectabl e, quadrivalent, preservative free Keesha Nace DO Work Phone: [facility] 08-03-2016 influenza, injectabl e, quadrivalent, preservative free; Translations: [INFLUENZA IIV4 3YO OR > FLUARIX/FLUZONE/AFLURIA 74793] [facility] Work Phone: 08-25-2015 pneumococcal conjuga te vaccine, 13 valent Keesha Nace DO Work Phone: [facility] 08-22-2015 influenza, injectabl e, quadrivalent, contains preservative; Translations: [INFLUENZA IIV4 FLUZONE/FLULAVAL 62526] [facility] 08-15-2015 influenza, seasonal, injectable Keesha Nace DO Work Phone: [facility] 09-09-2014 influenza, seasonal, injectable Keesha Nace DO Work Phone: [facility] 09-09-2014 zoster vaccine, live Keesha Nace DO Work Phone: [facility] 07-01-2014 zoster vaccine, live Keesha Nace DO Work Phone: [facility] 09-13-2012 influenza, seasonal, injectable Keesha Nace DO Work Phone: [facility] 08-19-2011 influenza, seasonal, injectable Keesha Nace DO Work Phone: [facility] 08-03-2010 influenza, seasonal, injectable Keesha Nace DO Work Phone: [facility] 04-27-2010 pneumococcal polysaccharide vaccine, 23 valent Keesha Nace DO Work Phone: [facility] 10-31-2003 tetanus toxoid, redu arelis diphtheria toxoid, and acellular pertussis vaccine, adsorbed Keesha Robleroe DO Work Phone: [facility] flu vaccine qs 2014 (FLUZONE QUAD) injection; Translations: [Flu Vaccine [id number](6 Mos,Up) 60 McG (15 McG X 4)/0.5 Ml Im Susp] Trent Peguero [facility] Work Phone: Payers Date Payer Category Payer Self-pay 2023 Medicaid MEDICAID [facility] 2023-Present [phone] [address] [place] [address] [id number] [id number] 2023 Medicare HMO [id number]. [id number] 2023 Unknown [id number] 2018 Unknown HCAP/GEOFFREY 80% GEOFFREY xxxxxxxxx 2018-2019 xxxxxxxxx [id number]. 2.7.3.096204.315 2017 Unknown [id number] 2.16.840.1.165084.3.249. 13 2016 Medicare [id number] 2015 Medicare [id number] 2.16.840.1.130939.3.249. 13 2015 Medicare 2015 Medicare [id number] 1.2.840.690302.1.13.385. 2.7.3.348916.315 2015 Unknown 2014 Medicare [id number] 2.16.840.1.104860.3.249. 13 2014 Private Health Insurance [id number] 1953 Unknown [id number] 2.16.840.1.480067.3.579. 2.693 1953 Unknown [id number] 2.16.840.1.138728.3.579. 2.903 1953 Unknown [id number] 2.16.840.1.093228.3.579. 2.903 1953 Unknown [id number] 2.16.840.1.882374.3.579. 2.903 1953 Unknown [id number] 2.16.840.1.674113.3.579. 2.903 1953 Unknown [id number] 2.16.840.1.798501.3.579. 2.983 1953 Unknown [id number] 2.16.840.1.782985.3.579. 2.983 1953 Unknown [id number] 2.16.840.1.961718.3.579. 2.983 1953 Unknown [id number] 2.16.840.1.038270.3.579. 2.983 1953 Unknown [id number] 2.16.840.1.319068.3.579. 2.983 1953 Unknown [id number] 2.16.840.1.443709.3.579. 2.3 1953 Unknown [id number] 2.16.840.1.105529.3.579. 2. 1953 Unknown [id number] 2.16.840.1.246998.3.579. 2. 1953 Unknown [id number] 2.16.840.1.609664.3.579. 2. 1953 Unknown [id number] 2.16.840.1.650823.3.579. 2. 1953 Unknown [id number] 2.16.840.1.868588.3.579. 2. 1953 Unknown [id number] 2.16.840.1.058248.3.579. 2. 1953 Unknown [id number] 2.16.840.1.967715.3.579. 2. 1953 Unknown [id number] 2.16.840.1.461051.3.579. 2. 1953 Unknown [id number] 2.16.840.1.328069.3.579. 2. 1953 Unknown [id number] 2.16.840.1.740888.3.579. 2. 1953 Unknown [id number] 2.16.840.1.099601.3.579. 2. 1953 Unknown [id number] 2.16.840.1.004831.3.579. 2. 1953 Unknown [id number] 2.16.840.1.127120.3.579. 2. 1953 Unknown [id number] 2.16.840.1.332860.3.579. 2. 1953 Unknown [id number] 2.16.840.1.757657.3.579. 2.900 1953 Unknown [id number] 2.16.840.1.688562.3.579. 2. 1953 Unknown [id number] 2.16.840.1.384994.3.579. 2. 1953 Unknown [id number] 2.16840.1.172815.3.579. 2 1953 Unknown [id number] 2.16.840.1.403386.3.579. 2 1953 Unknown [id number] 2.840.1.418168.3.579. 2 1953 Unknown [id number] 2.840.1.820226.3.579. 2 1953 Unknown [id number] 2.840.1.768785.3.579. 2 1953 Unknown [id number] 2.840.1.245195.3.579. 2 1953 Unknown [id number] 2.840.1.206264.3.579. 2 1953 Unknown [id number] 2.840.1.250096.3.579. 2 1953 Unknown [id number] 2.840.1.238112.3.579. 2 1953 Unknown [id number] 2.16840.1.274097.3.579. 2. 1953 Unknown [id number] 2.16840.1.297337.3.579. 2 1953 Unknown [id number] 2.16840.1.362501.3.579. 2 Unknown [id number] 2.16840.1.714768.3.579. 2.462 Unknown [id number] 2.16.840.1.194745.3.579. 2.462 Social History Date Type Detail Facility Start: 03-13-2018 End: 01-21-2025 Tobacco smoking status NHIS Never smoker [facility] Start: 1955 Sex Assigned At Not on file [facility] Work Phone: Start: 11-03-2017 Alcohol Comment sometimes 10 a year; rare [facility] Start: 07-31-2019 End: 08-10-2024 Alcohol intake Current drinker of alcohol (finding) [facility] Start: 01-06-2023 End: 01-16-2023 Exposure to SARS-CoV-2 (event) Unable to assess [facility] Start: 12-12-2021 End: 11-24-2022 Exposure to SARS-CoV-2 (event) Not sure [facility] Start: 07-22-2020 End: 01-21-2025 Tobacco use and exposure Never used [facility] Start: 02-26-2021 Tobacco Comment 02/26/21 [facility] Start: 03-23-2021 End: 08-07-2024 Alcohol intake [facility] Start: 04-21-2021 End: 04-05-2022 Tobacco Comment 04/21/21 [facility] Start: 05-18-2021 History SDOH Financial 5 [facility] Start: 05-18-2021 History SDOH Food Worry 1 [facility] Start: 05-18-2021 History SDOH Transport Med 2 [facility] History of tobacco use Cigarette Smoker [facility] Start: 06-10-2022 End: 05-31-2025 Alcohol intake Ex-drinker (finding) [facility] Start: 06-10-2022 History SDOH Alcohol Comment rarely [facility] Start: 04-18-2023 End: 04-22-2023 Alcohol intake Current non-drinker of alcohol (finding) [facility] Start: 01-19-2023 End: 08-07-2024 Tobacco use panel [facility] How hard is it for y ou to pay for the very basics like food, housing, medical care, and heating Not hard at all [facility] (I/We) worried wheth er (my/our) food would run out before (I/we) got money to buy more. Never true [facility] Start: 05-24-2018 Gender identity Identifies as female gender (finding) [facility] Start: 05-24-2018 Sexual orientation Heterosexual (finding) [facility] How hard is it for y ou to pay for the very basics like food, housing, medical care, and heating Not very hard [facility] Work Phone: In the past 12 month s, was there a time when you were not able to pay the mortgage or rent on time? No [facility] Start: 1955 Sex Assigned At Female [facility] Start: 01-21-2025 Tobacco Comment 04/21/21,01/21/25 [facility] Start: 01-21-2025 Alcohol Comment sometimes 10 a year; rare 01/21/25 [facility] Medical Equipment Procedure Code Equipment Code Equipment Origin al Text Equipment Identifier Dates Insertion, infusion pump, for analgesia ref- [id number] synchromed III FDA Start: 07-13-2024 Insertion, infusion pump, for analgesia ref- [id number] ascenda FDA Start: 07-13-2024 System 5.5 X 24m m Implant Speedbridge W/Biocomp Swivelock Sp - [id number] Start: 11-04-2015 Fernwood 4.75 X 19 .1mm Biocomposite Suture Swivelock C Vented - [id number] Start: 11-04-2015 Allograft 5cc Vc bm Cellentra (Human) - [id number] Start: 11-08-2017 Matrix 5cc Mastergraft Ext - [id number] Start: 11-08-2017 Screw 8 X 19.5mm Tenodesis Biocomp Swivelock W/Forked Eye - [id number] Start: 11-04-2015 Sealant 5ml Hemostatic Matrix Full Sterl Prep Floseal - [id number] Start: 11-08-2017 Screw 6.5 X 40mm Verna Pedicle Excella Ii - [id number] Start: 11-08-2017 Screw 7.5 X 35mm Verna Pedicle Excella Ii Mis - [id number] Start: 11-08-2017 Cap Locking Exce lla Ii - [id number] Start: 11-08-2017 Eliezer 5.5 X 100mm Excella Ii - [id number] Start: 11-08-2017 Screw 6.5 X 25mm Bone Canc - [id number] Start: 02-27-2018 Screw 6.5 X 20mm Bone Canc - [id number] Start: 02-27-2018 Stem 127deg Sz5 Fem Accolade Ii - [id number] Start: 02-27-2018 Insert 28mm For Od 48mm Cup Adm Sikhism X3 - [id number] Start: 02-27-2018 Liner 42mm E Jose Elias r Mdm - [id number] Start: 02-27-2018 Head 28mm/+0 Fem V40 Biolox Delta - [id number] Start: 02-27-2018 Cup 52mm Cluster Pagan Trident Hemispherical - [id number] Start: 02-27-2018 System 5.5 X 24m m Implant Speedbridge W/Biocomp Swivelock Sp - [id number] Start: 11-04-2015 [place] 4.75 X 19 .1mm Biocomposite Suture Swivelock C Vented - [id number] Start: 11-04-2015 Allograft 5cc Vc bm Cellentra (Human) - [id number] Start: 11-08-2017 Matrix 5cc Mastergraft Ext - [id number] Start: 11-08-2017 Screw 8 X 19.5mm Tenodesis Biocomp Swivelock W/Forked Eye - [id number] Start: 11-04-2015 Sealant 5ml Hemostatic Matrix Full Sterl Prep Floseal - [id number] Start: 11-08-2017 Screw 6.5 X 40mm Verna Pedicle Excella Ii - [id number] Start: 11-08-2017 Screw 7.5 X 35mm Verna Pedicle Excella Ii Mis - [id number] Start: 11-08-2017 Cap Locking Exce lla Ii - [id number] Start: 11-08-2017 Eliezer 5.5 X 100mm Excella Ii - [id number] Start: 11-08-2017 Screw 6.5 X 25mm Bone Canc - [id number] Start: 02-27-2018 Screw 6.5 X 20mm Bone Canc - [id number] Start: 02-27-2018 Stem 127deg Sz5 Fem Accolade Ii - [id number] Start: 02-27-2018 Insert 28mm For Od 48mm Cup Adm Sikhism X3 - [id number] Start: 02-27-2018 Liner 42mm E Jose Elias r Mdm - [id number] Start: 02-27-2018 Head 28mm/+0 Fem V40 Biolox Delta - [id number] Start: 02-27-2018 Cup 52mm Cluster Pagan Trident Hemispherical - [id number] Start: 02-27-2018 System 5.5 X 24m m Implant Speedbridge W/Biocomp Swivelock Sp - [id number] Start: 11-04-2015 [place] 4.75 X 19 .1mm Biocomposite Suture Swivelock C Vented - [id number] Start: 11-04-2015 Allograft 5cc Vc bm Cellentra (Human) - [id number] Start: 11-08-2017 Matrix 5cc Mastergraft Ext - [id number] Start: 11-08-2017 Screw 8 X 19.5mm Tenodesis Biocomp Swivelock W/Forked Eye - [id number] Start: 11-04-2015 Sealant 5ml Hemostatic Matrix Full Sterl Prep Floseal - [id number] Start: 11-08-2017 Screw 6.5 X 40mm Verna Pedicle Excella Ii - [id number] Start: 11-08-2017 Screw 7.5 X 35mm Verna Pedicle Excella Ii Mis - [id number] Start: 11-08-2017 Cap Locking Exce lla Ii - [id number] Start: 11-08-2017 Eliezer 5.5 X 100mm Excella Ii - [id number] Start: 11-08-2017 Screw 6.5 X 25mm Bone Canc - [id number] Start: 02-27-2018 Screw 6.5 X 20mm Bone Canc - [id number] Start: 02-27-2018 Stem 127deg Sz5 Fem Accolade Ii - [id number] Start: 02-27-2018 Insert 28mm For Od 48mm Cup Adm Sikhism X3 - [id number] Start: 02-27-2018 Liner 42mm E Jose Elias r Mdm - [id number] Start: 02-27-2018 Head 28mm/+0 Fem V40 Biolox Delta - [id number] Start: 02-27-2018 Cup 52mm Cluster Pagan Trident Hemispherical - [id number] Start: 02-27-2018 System 5.5 X 24m m Implant Speedbridge W/Biocomp Swivelock Sp - [id number] Start: 11-04-2015 [place] 4.75 X 19 .1mm Biocomposite Suture Swivelock C Vented - [id number] Start: 11-04-2015 Allograft 5cc Vc bm Cellentra (Human) - [id number] Start: 11-08-2017 Matrix 5cc Mastergraft Ext - [id number] Start: 11-08-2017 Screw 8 X 19.5mm Tenodesis Biocomp Swivelock W/Forked Eye - [id number] Start: 11-04-2015 Sealant 5ml Hemostatic Matrix Full Sterl Prep Floseal - [id number] Start: 11-08-2017 Screw 6.5 X 40mm Verna Pedicle Excella Ii - [id number] Start: 11-08-2017 Screw 7.5 X 35mm Verna Pedicle Excella Ii Mis - [id number] Start: 11-08-2017 Cap Locking Exce lla Ii - [id number] Start: 11-08-2017 Eliezer 5.5 X 100mm Excella Ii - [id number] Start: 11-08-2017 System 5.5 X 24m m Implant Speedbridge W/Biocomp Swivelock Sp - [id number] Start: 11-04-2015 [place] 4.75 X 19 .1mm Biocomposite Suture Swivelock C Vented - [id number] Start: 11-04-2015 Allograft 5cc Vc bm Cellentra (Human) - [id number] Start: 11-08-2017 Matrix 5cc Mastergraft Ext - [id number] Start: 11-08-2017 Screw 8 X 19.5mm Tenodesis Biocomp Swivelock W/Forked Eye - [id number] Start: 11-04-2015 Sealant 5ml Hemostatic Matrix Full Sterl Prep Floseal - [id number] Start: 11-08-2017 Screw 6.5 X 40mm Verna Pedicle Excella Ii - [id number] Start: 11-08-2017 Screw 7.5 X 35mm Verna Pedicle Excella Ii Mis - [id number] Start: 11-08-2017 Cap Locking Exce lla Ii - [id number] Start: 11-08-2017 Eliezer 5.5 X 100mm Excella Ii - [id number] Start: 11-08-2017 System 5.5 X 24m m Implant Speedbridge W/Biocomp Swivelock Sp - [id number] Start: 11-04-2015 [place] 4.75 X 19 .1mm Biocomposite Suture Swivelock C Vented - [id number] Start: 11-04-2015 Allograft 5cc Vc bm Cellentra (Human) - [id number] Start: 11-08-2017 Matrix 5cc Mastergraft Ext - [id number] Start: 11-08-2017 Screw 8 X 19.5mm Tenodesis Biocomp Swivelock W/Forked Eye - [id number] Start: 11-04-2015 Sealant 5ml Hemostatic Matrix Full Sterl Prep Floseal - [id number] Start: 11-08-2017 Screw 6.5 X 40mm Verna Pedicle Excella Ii - [id number] Start: 11-08-2017 Screw 7.5 X 35mm Verna Pedicle Excella Ii Mis - [id number] Start: 11-08-2017 Cap Locking Exce lla Ii - [id number] Start: 11-08-2017 Eliezer 5.5 X 100mm Excella Ii - [id number] Start: 11-08-2017 System 5.5 X 24m m Implant Speedbridge W/Biocomp Swivelock Sp - [id number] Start: 11-04-2015 [place] 4.75 X 19 .1mm Biocomposite Suture Swivelock C Vented - [id number] Start: 11-04-2015 Screw 8 X 19.5mm Tenodesis Biocomp Swivelock W/Forked Eye - [id number] Start: 11-04-2015 System 5.5 X 24m m Implant Speedbridge W/Biocomp Swivelock Sp - [id number] Start: 11-04-2015 [place] 4.75 X 19 .1mm Biocomposite Suture Swivelock C Vented - [id number] Start: 11-04-2015 Screw 8 X 19.5mm Tenodesis Biocomp Swivelock W/Forked Eye - [id number] Start: 11-04-2015 System 5.5 X 24m m Implant Speedbridge W/Biocomp Swivelock Sp - [id number] Start: 11-04-2015 [place] 4.75 X 19 .1mm Biocomposite Suture Swivelock C Vented - [id number] Start: 11-04-2015 Screw 8 X 19.5mm Tenodesis Biocomp Swivelock W/Forked Eye - [id number] Start: 11-04-2015 System 5.5 X 24m m Implant Speedbridge W/Biocomp Swivelock Sp - [id number] Start: 11-04-2015 [place] 4.75 X 19 .1mm Biocomposite Suture Swivelock C Vented - [id number] Start: 11-04-2015 Screw 8 X 19.5mm Tenodesis Biocomp Swivelock W/Forked Eye - [id number] Start: 11-04-2015 System 5.5 X 24m m Implant Speedbridge W/Biocomp Swivelock Sp - [id number] Start: 11-04-2015 [place] 4.75 X 19 .1mm Biocomposite Suture Swivelock C Vented - [id number] Start: 11-04-2015 Screw 8 X 19.5mm Tenodesis Biocomp Swivelock W/Forked Eye - [id number] Start: 11-04-2015 System 5.5 X 24m m Implant Speedbridge W/Biocomp Swivelock Sp - [id number] Start: 11-04-2015 [place] 4.75 X 19 .1mm Biocomposite Suture Swivelock C Vented - [id number] Start: 11-04-2015 Screw 8 X 19.5mm Tenodesis Biocomp Swivelock W/Forked Eye - [id number] Start: 11-04-2015 System 5.5 X 24m m Implant Speedbridge W/Biocomp Swivelock Sp - [id number] Start: 11-04-2015 [place] 4.75 X 19 .1mm Biocomposite Suture Swivelock C Vented - [id number] Start: 11-04-2015 Allograft 5cc Vc bm Cellentra (Human) - [id number] Start: 11-08-2017 Matrix 5cc Mastergraft Ext - [id number] Start: 11-08-2017 Screw 8 X 19.5mm Tenodesis Biocomp Swivelock W/Forked Eye - [id number] Start: 11-04-2015 Sealant 5ml Hemostatic Matrix Full Sterl Prep Floseal - [id number] Start: 11-08-2017 Screw 6.5 X 40mm Verna Pedicle Excella Ii - [id number] Start: 11-08-2017 Screw 7.5 X 35mm Verna Pedicle Excella Ii Mis - [id number] Start: 11-08-2017 Cap Locking Exce lla Ii - [id number] Start: 11-08-2017 Eliezer 5.5 X 100mm Excella Ii - [id number] Start: 11-08-2017 Screw 6.5 X 25mm Bone Canc - [id number] Start: 02-27-2018 Screw 6.5 X 20mm Bone Canc - [id number] Start: 02-27-2018 Stem 127deg Sz5 Fem Accolade Ii - [id number] Start: 02-27-2018 Insert 28mm For Od 48mm Cup Adm Sikhism X3 - [id number] Start: 02-27-2018 Liner 42mm E Jose Elias r Mdm - [id number] Start: 02-27-2018 Head 28mm/+0 Fem V40 Biolox Delta - [id number] Start: 02-27-2018 Cup 52mm Cluster Pagan Trident Hemispherical - [id number] Start: 02-27-2018 System 5.5 X 24m m Implant Speedbridge W/Biocomp Swivelock Sp - [id number] Start: 11-04-2015 [place] 4.75 X 19 .1mm Biocomposite Suture Swivelock C Vented - [id number] Start: 11-04-2015 Allograft 5cc Vc bm Cellentra (Human) - [id number] Start: 11-08-2017 Matrix 5cc Mastergraft Ext - [id number] Start: 11-08-2017 Screw 8 X 19.5mm Tenodesis Biocomp Swivelock W/Forked Eye - [id number] Start: 11-04-2015 Sealant 5ml Hemostatic Matrix Full Sterl Prep Floseal - [id number] Start: 11-08-2017 Screw 6.5 X 40mm Verna Pedicle Excella Ii - [id number] Start: 11-08-2017 Screw 7.5 X 35mm Verna Pedicle Excella Ii Mis - [id number] Start: 11-08-2017 Cap Locking Exce lla Ii - [id number] Start: 11-08-2017 Eliezer 5.5 X 100mm Excella Ii - [id number] Start: 11-08-2017 Screw 6.5 X 25mm Bone Canc - [id number] Start: 02-27-2018 Screw 6.5 X 20mm Bone Canc - [id number] Start: 02-27-2018 Stem 127deg Sz5 Fem Accolade Ii - [id number] Start: 02-27-2018 Insert 28mm For Od 48mm Cup Adm Sikhism X3 - [id number] Start: 02-27-2018 Liner 42mm E Jose Elias r Mdm - [id number] Start: 02-27-2018 Head 28mm/+0 Fem V40 Biolox Delta - [id number] Start: 02-27-2018 Cup 52mm Cluster Pagan Trident Hemispherical - [id number] Start: 02-27-2018 System 5.5 X 24m m Implant Speedbridge W/Biocomp Swivelock Sp - [id number] Start: 11-04-2015 [place] 4.75 X 19 .1mm Biocomposite Suture Swivelock C Vented - [id number] Start: 11-04-2015 Allograft 5cc Vc bm Cellentra (Human) - [id number] Start: 11-08-2017 Matrix 5cc Mastergraft Ext - [id number] Start: 11-08-2017 Screw 8 X 19.5mm Tenodesis Biocomp Swivelock W/Forked Eye - [id number] Start: 11-04-2015 Sealant 5ml Hemostatic Matrix Full Sterl Prep Floseal - [id number] Start: 11-08-2017 Screw 6.5 X 40mm Verna Pedicle Excella Ii - [id number] Start: 11-08-2017 Screw 7.5 X 35mm Verna Pedicle Excella Ii Mis - [id number] Start: 11-08-2017 Cap Locking Exce lla Ii - [id number] Start: 11-08-2017 Eliezer 5.5 X 100mm Excella Ii - [id number] Start: 11-08-2017 Screw 6.5 X 25mm Bone Canc - [id number] Start: 02-27-2018 Screw 6.5 X 20mm Bone Canc - [id number] Start: 02-27-2018 Stem 127deg Sz5 Fem Accolade Ii - [id number] Start: 02-27-2018 Insert 28mm For Od 48mm Cup Adm Sikhism X3 - [id number] Start: 02-27-2018 Liner 42mm E Jsoe Elias r Mdm - [id number] Start: 02-27-2018 Head 28mm/+0 Fem V40 Biolox Delta - [id number] Start: 02-27-2018 Cup 52mm Cluster Pagan Trident Hemispherical - [id number] Start: 02-27-2018 System 5.5 X 24m m Implant Speedbridge W/Biocomp Swivelock Sp - [id number] Start: 11-04-2015 [place] 4.75 X 19 .1mm Biocomposite Suture Swivelock C Vented - [id number] Start: 11-04-2015 Allograft 5cc Vc bm Cellentra (Human) - [id number] Start: 11-08-2017 Matrix 5cc Mastergraft Ext - [id number] Start: 11-08-2017 Screw 8 X 19.5mm Tenodesis Biocomp Swivelock W/Forked Eye - [id number] Start: 11-04-2015 Sealant 5ml Hemostatic Matrix Full Sterl Prep Floseal - [id number] Start: 11-08-2017 Screw 6.5 X 40mm Verna Pedicle Excella Ii - [id number] Start: 11-08-2017 Screw 7.5 X 35mm Verna Pedicle Excella Ii Mis - [id number] Start: 11-08-2017 Cap Locking Exce lla Ii - [id number] Start: 11-08-2017 Eliezer 5.5 X 100mm Excella Ii - [id number] Start: 11-08-2017 Screw 6.5 X 25mm Bone Canc - [id number] Start: 02-27-2018 Screw 6.5 X 20mm Bone Canc - [id number] Start: 02-27-2018 Stem 127deg Sz5 Fem Accolade Ii - [id number] Start: 02-27-2018 Insert 28mm For Od 48mm Cup Adm Sikhism X3 - [id number] Start: 02-27-2018 Liner 42mm E Jose Elias r Mdm - [id number] Start: 02-27-2018 Head 28mm/+0 Fem V40 Biolox Delta - [id number] Start: 02-27-2018 Cup 52mm Cluster Pagan Trident Hemispherical - [id number] Start: 02-27-2018 System 5.5 X 24m m Implant Speedbridge W/Biocomp Swivelock Sp - [id number] Start: 11-04-2015 [place] 4.75 X 19 .1mm Biocomposite Suture Swivelock C Vented - [id number] Start: 11-04-2015 Allograft 5cc Vc bm Cellentra (Human) - [id number] Start: 11-08-2017 Matrix 5cc Mastergraft Ext - [id number] Start: 11-08-2017 Screw 8 X 19.5mm Tenodesis Biocomp Swivelock W/Forked Eye - [id number] Start: 11-04-2015 Sealant 5ml Hemostatic Matrix Full Sterl Prep Floseal - [id number] Start: 11-08-2017 Screw 6.5 X 40mm Verna Pedicle Excella Ii - [id number] Start: 11-08-2017 Screw 7.5 X 35mm Verna Pedicle Excella Ii Mis - [id number] Start: 11-08-2017 Cap Locking Exce lla Ii - [id number] Start: 11-08-2017 Eliezer 5.5 X 100mm Excella Ii - [id number] Start: 11-08-2017 Screw 6.5 X 25mm Bone Canc - [id number] Start: 02-27-2018 Screw 6.5 X 20mm Bone Canc - [id number] Start: 02-27-2018 Stem 127deg Sz5 Fem Accolade Ii - [id number] Start: 02-27-2018 Insert 28mm For Od 48mm Cup Adm Sikhism X3 - [id number] Start: 02-27-2018 Liner 42mm E Jose Elias r Mdm - [id number] Start: 02-27-2018 Head 28mm/+0 Fem V40 Biolox Delta - [id number] Start: 02-27-2018 Cup 52mm Cluster Pagan Trident Hemispherical - [id number] Start: 02-27-2018 System 5.5 X 24m m Implant Speedbridge W/Biocomp Swivelock Sp - [id number] Start: 11-04-2015 [place] 4.75 X 19 .1mm Biocomposite Suture Swivelock C Vented - [id number] Start: 11-04-2015 Allograft 5cc Vc bm Cellentra (Human) - [id number] Start: 11-08-2017 Matrix 5cc Mastergraft Ext - [id number] Start: 11-08-2017 Screw 8 X 19.5mm Tenodesis Biocomp Swivelock W/Forked Eye - [id number] Start: 11-04-2015 Sealant 5ml Hemostatic Matrix Full Sterl Prep Floseal - [id number] Start: 11-08-2017 Screw 6.5 X 40mm Verna Pedicle Excella Ii - [id number] Start: 11-08-2017 Screw 7.5 X 35mm Verna Pedicle Excella Ii Mis - [id number] Start: 11-08-2017 Cap Locking Exce lla Ii - [id number] Start: 11-08-2017 Eliezer 5.5 X 100mm Excella Ii - [id number] Start: 11-08-2017 Screw 6.5 X 25mm Bone Canc - [id number] Start: 02-27-2018 Screw 6.5 X 20mm Bone Canc - [id number] Start: 02-27-2018 Stem 127deg Sz5 Fem Accolade Ii - [id number] Start: 02-27-2018 Insert 28mm For Od 48mm Cup Adm Sikhism X3 - [id number] Start: 02-27-2018 Liner 42mm E Jose Elias r Mdm - [id number] Start: 02-27-2018 Head 28mm/+0 Fem V40 Biolox Delta - [id number] Start: 02-27-2018 Cup 52mm Cluster Pagan Trident Hemispherical - [id number] Start: 02-27-2018 System 5.5 X 24m m Implant Speedbridge W/Biocomp Swivelock Sp - [id number] Start: 11-04-2015 [place] 4.75 X 19 .1mm Biocomposite Suture Swivelock C Vented - [id number] Start: 11-04-2015 Allograft 5cc Vc bm Cellentra (Human) - [id number] Start: 11-08-2017 Matrix 5cc Mastergraft Ext - [id number] Start: 11-08-2017 Screw 8 X 19.5mm Tenodesis Biocomp Swivelock W/Forked Eye - [id number] Start: 11-04-2015 Sealant 5ml Hemostatic Matrix Full Sterl Prep Floseal - [id number] Start: 11-08-2017 Screw 6.5 X 40mm Verna Pedicle Excella Ii - [id number] Start: 11-08-2017 Screw 7.5 X 35mm Verna Pedicle Excella Ii Mis - [id number] Start: 11-08-2017 Cap Locking Exce lla Ii - [id number] Start: 11-08-2017 Eliezer 5.5 X 100mm Excella Ii - [id number] Start: 11-08-2017 Screw 6.5 X 25mm Bone Canc - [id number] Start: 02-27-2018 Screw 6.5 X 20mm Bone Canc - [id number] Start: 02-27-2018 Stem 127deg Sz5 Fem Accolade Ii - [id number] Start: 02-27-2018 Insert 28mm For Od 48mm Cup Adm Sikhism X3 - [id number] Start: 02-27-2018 Liner 42mm E Jose Elias r Mdm - [id number] Start: 02-27-2018 Head 28mm/+0 Fem V40 Biolox Delta - [id number] Start: 02-27-2018 Cup 52mm Cluster Pagan Trident Hemispherical - [id number] Start: 02-27-2018 System 5.5 X 24m m Implant Speedbridge W/Biocomp Swivelock Sp - [id number] Start: 11-04-2015 [place] 4.75 X 19 .1mm Biocomposite Suture Swivelock C Vented - [id number] Start: 11-04-2015 Allograft 5cc Vc bm Cellentra (Human) - [id number] Start: 11-08-2017 Matrix 5cc Mastergraft Ext - [id number] Start: 11-08-2017 Screw 8 X 19.5mm Tenodesis Biocomp Swivelock W/Forked Eye - [id number] Start: 11-04-2015 Sealant 5ml Hemostatic Matrix Full Sterl Prep Floseal - [id number] Start: 11-08-2017 Screw 6.5 X 40mm Verna Pedicle Excella Ii - [id number] Start: 11-08-2017 Screw 7.5 X 35mm Verna Pedicle Excella Ii Mis - [id number] Start: 11-08-2017 Cap Locking Exce lla Ii - [id number] Start: 11-08-2017 Eliezer 5.5 X 100mm Excella Ii - [id number] Start: 11-08-2017 Screw 6.5 X 25mm Bone Canc - [id number] Start: 02-27-2018 Screw 6.5 X 20mm Bone Canc - [id number] Start: 02-27-2018 Stem 127deg Sz5 Fem Accolade Ii - [id number] Start: 02-27-2018 Insert 28mm For Od 48mm Cup Adm Sikhism X3 - [id number] Start: 02-27-2018 Liner 42mm E Jose Elias r Mdm - [id number] Start: 02-27-2018 Head 28mm/+0 Fem V40 Biolox Delta - [id number] Start: 02-27-2018 Cup 52mm Cluster Pagan Trident Hemispherical - [id number] Start: 02-27-2018 System 5.5 X 24m m Implant Speedbridge W/Biocomp Swivelock Sp - [id number] Start: 11-04-2015 [place] 4.75 X 19 .1mm Biocomposite Suture Swivelock C Vented - [id number] Start: 11-04-2015 Screw 8 X 19.5mm Tenodesis Biocomp Swivelock W/Forked Eye - [id number] Start: 11-04-2015 System 5.5 X 24m m Implant Speedbridge W/Biocomp Swivelock Sp - [id number] Start: 11-04-2015 [place] 4.75 X 19 .1mm Biocomposite Suture Swivelock C Vented - [id number]_imp Start: 11-04-2015 Allograft 5cc Vc bm Cellentra (Human) - [id number]_imp Start: 11-08-2017 Matrix 5cc Mastergraft Ext - [id number]_imp Start: 11-08-2017 Screw 8 X 19.5mm Tenodesis Biocomp Swivelock W/Forked Eye - [id number]_imp Start: 11-04-2015 Sealant 5ml Hemostatic Matrix Full Sterl Prep Floseal - [id number]_imp Start: 11-08-2017 Screw 6.5 X 40mm Verna Pedicle Excella Ii - [id number] 561590_imp Start: 11-08-2017 Screw 7.5 X 35mm Verna Pedicle Excella Ii Mis - [id number] 561592_imp Start: 11-08-2017 Cap Locking Exce lla Ii - [id number] 561593_imp Start: 11-08-2017 Eliezer 5.5 X 100mm Excella Ii - [id number] 561595_imp Start: 11-08-2017 Screw 6.5 X 25mm Bone Canc - [id number]_imp Start: 02-27-2018 Screw 6.5 X 20mm Bone Canc - [id number] 620532_imp Start: 02-27-2018 Stem 127deg Sz5 Fem Accolade Ii - [id number]_imp Start: 02-27-2018 Insert 28mm For Od 48mm Cup Adm Sikhism X3 - [id number]_imp Start: 02-27-2018 Liner 42mm E Jose Elias r Mdm - [id number]_imp Start: 02-27-2018 Head 28mm/+0 Fem V40 Biolox Delta - [id number]_imp Start: 02-27-2018 Cup 52mm Cluster Pagan Trident Hemispherical - [id number]_imp Start: 02-27-2018 System 5.5 X 24m m Implant Speedbridge W/Biocomp Swivelock Sp - [id number] Start: 11-04-2015 [place] 4.75 X 19 .1mm Biocomposite Suture Swivelock C Vented - [id number] Start: 11-04-2015 Allograft 5cc Vc bm Cellentra (Human) - [id number] Start: 11-08-2017 Matrix 5cc Mastergraft Ext - [id number] Start: 11-08-2017 Screw 8 X 19.5mm Tenodesis Biocomp Swivelock W/Forked Eye - [id number] Start: 11-04-2015 Sealant 5ml Hemostatic Matrix Full Sterl Prep Floseal - [id number] Start: 11-08-2017 Screw 6.5 X 40mm Verna Pedicle Excella Ii - [id number] Start: 11-08-2017 Screw 7.5 X 35mm Verna Pedicle Excella Ii Mis - [id number] Start: 11-08-2017 Cap Locking Exce lla Ii - [id number] Start: 11-08-2017 Eliezer 5.5 X 100mm Excella Ii - [id number] Start: 11-08-2017 Screw 6.5 X 25mm Bone Canc - [id number] Start: 02-27-2018 Screw 6.5 X 20mm Bone Canc - [id number] Start: 02-27-2018 Stem 127deg Sz5 Fem Accolade Ii - [id number] Start: 02-27-2018 Insert 28mm For Od 48mm Cup Adm Sikhism X3 - [id number] Start: 02-27-2018 Liner 42mm E Jose Elias r Mdm - [id number] Start: 02-27-2018 Head 28mm/+0 Fem V40 Biolox Delta - [id number] Start: 02-27-2018 Cup 52mm Cluster Pagan Trident Hemispherical - [id number] Start: 02-27-2018 Sealant 5ml Hemostatic Matrix Fast Prep Floseal - [id number] FDA Start: 03-13-2021 Hemostat 8 X 6.2 5cm X 10mm Surgifoam Gelatin Sponge - [id number], [id number] FDA Start: 03-13-2021 Screw 4 X 14mm V ar Self-Tap [place] - [id number] Start: 03-13-2021 Plate 21mm 1lvl Ant Cerv [place] Vision Elite - [id number]_imp Start: 03-13-2021 Bone 6 X 14 X 11 mm João-Canc Blck Asr - [id number]_imp Start: 03-13-2021 Bone Infuse Bone Graft Lg Ii - [id number] 1868944_imp Start: 08-18-2023 Cement Bone Kyph x Hv-R No Mixer - [id number] 1868648_imp Start: 08-18-2023 Filter Vena Cava Jugular Celect [place] - [id number]_imp Start: 08-22-2023 Comment on above: Description: IVC Screw Set Breako ff Ti 5.5/6.0mm Horizon Solera - [id number]_imp Start: 08-18-2023 Filter Vena Cava Jugular Celect [place] - [id number] [id number]_exp Start: 10-07-2023 Comment on above: Description: IVC Hemostat 8 X 6.2 5cm X 10mm Surgifoam Gelatin Sponge - [id number]_imp Start: 08-18-2023 Sealant 5ml Hemostatic Matrix Fast Prep Floseal W/ Recothrom - [id number]_imp Start: 08-18-2023 Solera Screw 5.0 X 45 [id number]_imp St art: 08-18-2023 Solera Screw 5.0 X 40 [id number] St art: 08-18-2023 Screw 5.5 X 50mm Mas Cocr/Ti 5.5/6.0mm Horizon Solera - [id number]_imp Start: 08-18-2023 Screw 6.5 X 50mm Mas Cocr/Ti 5.5/6.0mm Horizon Solera - [id number]_imp Start: 08-18-2023 Spacer 26 X 8 Capstone Spinal System - [id number]_imp Start: 08-18-2023 5.5 [place] Chrom e Plus Eliezer [id number]_imp Start: 08-18-2023 Plate 50mm 4hl R ibloc U Plus - [id number] Start: 08-09-2024 Plate 75mm 8hl R ibloc U Plus - [id number]_imp Start: 08-09-2024 Screw 2.7 X 8mm Locking Ribloc U Plus - [id number] 3191_imp Start: 08-09-2024 Screw 2.7 X 10mm Locking Ribloc U Plus - [id number] 3192_imp Start: 08-09-2024 Clinical Notes 07-27-2019 to 09-06-2025 Ruiz Alcantar MD - 06/18/2025 1:51 PM EDRuiz Mccauley MD - 06/07/2025 1:11 PM Ruiz Serna MD - 05/30/2025 11:24 AM EDT Note Date & Type Note Facility 09-06-2025 Note Pt called to let Dr. Gee know she went to a stem cell seminar and she is very interested but wants Dr. Gee's input on it. The procedure is $15,000. [facility] 08-06-2025 Note I had the pleasure o f seeing Matthew Perez in consultation at [facility] [address] [place] [phone] for evaluation of arthritis Harmony Gee MD;Harmony Gee MD HISTORY OF PRESENT ILLNESS: Matthew Perez is a 70 y.o. female who presents with chief complaint of bilateral hand pain swelling and minor deformity for years. She has been on Celebrex which did not help. It also causes GI upset. She also has chronic low back and neck pain from degenerative disc disease and has been on the pain pump. She also has had surgery on both the cervical spine as well as the lumbar spine. Details are documented below. She also reports bilateral knee pain. She is currently on Percocet as needed for pain. Wonders if any other treatment options apart from what is being used. She cannot use NSAID because of adverse effects. It seems like she might have been treated with Cymbalta in the past and had nausea but she would like to try it again if that is an option. She is allergic to Lyrica. She has dry mouth since she sleeps with mouth open She has had rheumatological labs done on more than 1 occasion and has never tested positive for lupus rheumatoid arthritis or gout. Inflammatory markers are normal Patient requests a flu shot Allergies: She Allergies: Duloxetine, Nsaids (non-steroidal anti-inflammatory drug), Ibuprofen, Lyrica [pregabalin], and Metformin Medications: Outpatient Medications as of 08/06/2025 Medication Sig albuterol (Ventolin HFA) 90 mcg/actuation inhaler Inhale 1 (one) puff every 6 (six) hours as needed for wheezing . amLODIPine (NORVASC) 10 MG tablet Take 1 (one) tablet (10 mg total) by mouth daily . beclomethasone dipropionate (Qvar RediHaler) 40 mcg/actuation HFAB Inhale 2 puffs 2 (two) times a day. (Patient taking differently: Inhale 2 (two) puffs 2 (two) times a day Reasons: PRN.) caffeine 200 mg Take 1 (one) tablet (200 mg total) by mouth every 7 days . (Patient taking differently: Take 1 (one) tablet (200 mg total) by mouth every 7 days Reasons: PRN.) clonazePAM (KLONOPIN) 1 MG tablet Take 1 (one) tablet (1 mg total) by mouth 2 (two) times a day as needed for anxiety . doxylamine (UNISOM) 25 mg tablet Take by mouth . famotidine (PEPCID) 40 MG tablet TAKE 1 TABLET BY MOUTH DAILY (Patient taking differently: Take 1 (one) tablet (40 mg total) by mouth daily Reasons: occasional.) furosemide (LASIX) 40 MG tablet Take 0.5 (one-half) tablet (20 mg total) by mouth daily . lisinopril (PRINIVIL,ZESTRIL) 20 MG tablet Take 1 (one) tablet (20 mg total) by mouth every morning Reasons: high blood pressure. oxyCODONE-acetaminophen (PERCOCET) 10-325 mg per tablet Take 2 (two) tablets by mouth every 8 (eight) hours as needed for pain . rOPINIRole (REQUIP) 2 MG tablet Take 1.5 (one and a half) tablets (3 mg total) by mouth 3 (three) times a day as needed for restless legs Reasons: restless legs syndrome, an extreme discomfort in the calf muscles when sitting or lying down. (Patient taking differently: Take 1.5 (one and a half) tablets (3 mg total) by mouth 3 (three) times a day as needed for restless legs Reasons: restless legs syndrome, an extreme discomfort in the calf muscles when sitting or lying down, takes 1x daily.) atorvastatin (LIPITOR) 40 MG tablet Take 1 (one) tablet (40 mg total) by mouth daily . (Patient not taking: Reported on 08/06/2025 .) flu vacc [id number],65yr up,-PF (FLUZONE HD) 180 mcg/0.5 mL syringe (Patient not taking: Reported on 08/06/2025 .) magnesium gluconate (MAGONATE) 27.5 mg magne- sium (500 mg) tablet Take 1 (one) tablet (500 mg total) by mouth daily . (Patient not taking: Reported on 08/06/2025 .) montelukast (SINGULAIR) 10 mg tablet Take 1 (one) tablet (10 mg total) by mouth every morning . (Patient not taking: Reported on 08/06/2025 .) dxnqvflbdphu-whchtqiq-ehdwsb (Multivitamin 50 Plus) Tab Take 1 tablet by mouth daily . (Patient not taking: Reported on 08/06/2025 .) naloxone (NARCAN) 4 mg/actuation [address] Administer 1 spray into one nostril for known or suspected opioid overdose. If patient worsens or does not respond, may repeat in 2-3 minutes. . (Patient not taking: Reported on 08/06/2025 .) pantoprazole (PROTONIX) 40 MG tablet Take 1 (one) tablet (40 mg total) by mouth daily . (Patient not taking: Reported on 08/06/2025 .) SUMAtriptan (IMITREX) 100 MG tablet Take 1 (one) tablet (100 mg total) by mouth every 2 (two) hours as needed for migraine Max of 200 mg in 24hrs . (Patient not taking: Reported on 08/06/2025 .) Past Medical History: She Past Medical History: Diagnosis Date Anxiety Arthritis osteo Asthma 08/23/2014 Back pain Cardiomyopathy (HCC) resolved (EF 45% per cath 09/21/2006; EF 55-60% per echo 04/16/2019). CHF (congestive heart failure) (HCC) Depression Diastolic dysfunction mild per echo on 06/08/2019 [place] (more content not included)... [facility] 06-18-2025 Note PROGRESS NOTE This 70-year-old lady says that she is still having episodes of nausea, but better than before. She says that if she eats more often, her nausea is less. She even wakes up at nighttime with hunger pain and then gets nauseous. I told her that she should take the Protonix 40 mg at nighttime. As she continues to have nausea, will order a HIDA scan with CCK stimulation to check for the functioning of the gallbladder. We talked about a colonoscopy and at this time she wants to get a Cologuard test. This has been ordered. AUTHENTICATED BY RUIZ ALCANTAR, ON 06/18/2025 15:08:24 [facility] 06-18-2025 History of Presen t illness Narrative PROGRESS NOTE This 70-year-old lady says that she is still having episodes of nausea, but better than before. She says that if she eats more often, her nausea is less. She even wakes up at nighttime with hunger pain and then gets nauseous. I told her that she should take the Protonix 40 mg at nighttime. As she continues to have nausea, will order a HIDA scan with CCK stimulation to check for the functioning of the gallbladder. We talked about a colonoscopy and at this time she wants to get a Cologuard test. This has been ordered. documented in this encounter [facility] 06-07-2025 Note Send letter- Stomach biopsies showed mild gastritis, no bacteria was seen. Stomach polyp biopsy was normal. Biopsies of gastroesophageal junction showed mild inflammation. Biopsy reports are below. A. Stomach, biopsy: Mild chronic gastritis. No H. Pylori organisms seen on routine H&E stained sections. B. Stomach polyps X 2, biopsy: Polypoid foveolar hyperplasia with benign smooth muscle proliferation. C. Gastroesophageal junction, biopsy: Squamoglandular junctional mucosa with mild chronic inflammation. No evidence of intestinal metaplasia. AUTHENTICATED BY RUIZ ALCANTAR, ON 06/07/2025 13:11:12 [facility] 06-07-2025 History of Presen t illness Narrative Send letter- Stomach biopsies showed mild gastritis, no bacteria was seen. Stomach polyp biopsy was normal. Biopsies of gastroesophageal junction showed mild inflammation. Biopsy reports are below. A. Stomach, biopsy: Mild chronic gastritis. No H. Pylori organisms seen on routine H&E stained sections. B. Stomach polyps X 2, biopsy: Polypoid foveolar hyperplasia with benign smooth muscle proliferation. C. Gastroesophageal junction, biopsy: Squamoglandular junctional mucosa with mild chronic inflammation. No evidence of intestinal metaplasia. documented in this encounter [facility] 06-05-2025 Note Due for labs. [facility] 06-05-2025 Note Chronic, prior work up negative including B12 etc. Will have her come back and repeat MOCA/SLUMS. [facility] 06-05-2025 Note Running low, will dr op amlodipine to 5mg from 10mg. [facility] 06-05-2025 Note Compensated, seen by cardiology recently. Continue current medications including lasix. [facility] 06-05-2025 Note Incidental, noted on 05/16/25 echocardiogram. [facility] 06-05-2025 Note Subjective : Chief Complaint: Matthew Perez is an 70 y.o. adult here for an annual wellness visit. Abdominal pain/nausea: 05/30/25 Seen by GI for nausea, given pepcid and US performed 05/30/2025 was negative. EGD was about a week ago. Pepcid has not helped. Occasional constipation that is rare and resolves on its own (once every couple a months). Gets acute pain that resolves with eating. Chronic pain issues: pain is neck, back, multiple joints. Has seen many specialists including ortho, pain management etc. has pain pump. Still seeing pain management. Pain, legs, knees. I watered my nicholson and that triggered her pain to be severe and had to take PO pain medications. Failed neurontin and lyrica in past due to upset stomach. She wants to try THC to see if will help. I advised her to check with her pain specialist. Depression: improved compared to last visit. Patient feels her mood is okay. Declined referral for counseling or psychiatry. Lump on her R hand that itches at times. This has been there a couple months. No trauma to the area. Ulnar deviation noted espeically of R hand: patient agreed to see rheumatology. Seeing a hand specialist in a few weeks as well. 05/16/25 seen by cardiology: had echocardiogram. Was told to follow up in October. Per the patient felt the visit was okay. Echo 05/16/25 Summary 1. Normal cardiac chamber sizes. 2. There is left ventricular concentric remodeling. 3. Left ventricular systolic function is normal with an ejection fraction by Biplane Method of Discs of 62 %. 4. Left ventricular segmental wall motion is normal. 5. There is normal diastolic function. 6. Right ventricular systolic function is normal. 7. There is mild tricuspid valve regurgitation. 8. There is no significant Aortic Stenosis. The peak anterograde flow velocity across the aortic valve is 1.7 m/s (Normal <1.5 m/s) and mean pressure gradient is 6 mm of Hg. Mild AR. 9. The proximal ascending aorta is mildly dilated measuring 3.8 cm with an index of 2.0 cm/m2. 10. There is no pericardial effusion. HTN, CHFpEF: running low in the office. Has BP cuff at home. The patient denies chest pain, shortness of breath, orthopnea, edema, weight gain and palpitations. The patient is tolerating medications well. Comprehensive Medical and Social History Problem List[1] Medical History[2] Surgical History[3] Allergies[4] Social History Socioeconomic History Marital status: Spouse name: None Number of children: None Years of education: None Highest education level: None Occupational History None Tobacco Use Smoking status: Never Smokeless tobacco: Never Substance and Sexual Activity Alcohol use: Yes Comment: OCC Drug use: Never Sexual activity: None Other Topics Concern None Social History Narrative 04/10/2018: LIVES WITH ETOH ONCE A YEAR ON OVERAGE, DENIES PAST OR PRESENT TOBACCO. [place] 2 HOURS [place] TO [facility], ALSO GOES TO [employer]. is 'bad alchoholic', also smokes 2ppd. Social Drivers of Health Financial Resource Strain: Low Risk (08/11/2023) Received from [facility] Overall Financial Resource Strain (CARDIA) Difficulty of Paying Living Expenses: Not very hard Food Insecurity: No Food Insecurity (06/05/2025) Hunger Vital Sign Worried About Running Out of Food in the Last Year: Never true Ran Out of Food in the Last Year: Never true Transportation Needs: No Transportation Needs (06/05/2025) Transportation Lack of Transportation (Medical): No Lack of Transportation (Non-Medical): No Physical Activity: Insufficiently Active (06/05/2025) Exercise Vital Sign Days of Exercise per Week: 7 days Minutes of Exercise per Session: 20 min Stress: No Stress Concern Present (06/05/2025) [employer] - Occupational Stress Questionnaire Feeling of Stress : Not at all Social Connections: Unknown (06/05/2025) Social Connection and Isolation Panel [NHANES] Frequency of Communication with Friends and Family: Three times a week Frequency of Social Gatherings with Friends and Family: Three times a week Attends [employer] Services: Patient declined Active Member of Clubs or Organizations: Patient declined Attends Club or Organization Meetings: Patient declined Marital Status: Intimate Partner Violence: Not At Risk (06/05/2025) Humiliation, Afraid, Rape, and Kick questionnaire Fear of Current or Ex-Partner: No Emotionally Abused: No Physically Abused: No Sexually Abused: No Housing Stability: Low Risk (06/05/2025) Housing Stability Vital Sign Unable to Pay for Housing in the Last Year: No Number of Times Moved in the Last Year: 1 Homeless in the Last Year: No Social Behavioral History: Diet and Nutrition: healthy diet and discussed diet improvement Fracture Risk: no history of fractures, no recent explained fracture, and no sudden unexplained fractures Physical Activity (more content not included)... [facility] 05-30-2025 Note Patient informed. AUTHENTICATED BY RUIZ ALCANTAR, ON 05/30/2025 11:24:39 [facility] 05-30-2025 History of Presen t illness Narrative Patient informed. documented in this encounter [facility] 05-14-2025 Note [facility] [address] [facility] [id number] History: PROGRESS NOTE This 70-year-old lady came in complaining that for the last many months she has been having nausea whenever she is on an empty stomach. As soon as she eats, she feels better. Has been having episodes of vomiting. Denies any abdominal pain. Denies any problems with her bowel movements. Denies having any blood with her stools. Says there is a bump in the rectum and at this stage, she does not want it to be checked. Denies any weight loss. Denies having any black tarry stools. Denies any blood with her stools. FAMILY HISTORY Her mother had carcinoma of the breast. Sister had a carcinoma. She is not sure of the site of the cancer. Grandfather had throat cancer. PAST MEDICAL HISTORY Reviewed with the patient. PAST SURGICAL HISTORY Reviewed with the patient. MEDICATIONS Reviewed with the patient. REVIEW OF SYSTEMS Shows that she has restless legs syndrome and has pain in both legs. Whitley not smoke. Does not take any alcohol. The last CBC which I could see in the chart was in 07/2024 which showed her hemoglobin to be 10.8. No other recent lab tests were available to review. IMPRESSION 1. Nausea, more so on empty stomach. 2. Hypertension. 3. Restless leg syndrome. ADVICE 1. Will start her on Pepcid 40 mg to be taken at nighttime. 2. We will schedule her for an upper endoscopy. Risks, benefits of the procedure were explained to the patient. 3. We will get an ultrasound of the right upper quadrant also. Past Medical History: Diagnosis Date Anxiety Arthritis osteo Asthma 08/23/2014 Back pain Cardiomyopathy (HCC) resolved (EF 45% per cath 09/21/2006; EF 55-60% per echo 04/16/2019). CHF (congestive heart failure) (HCC) Depression Diastolic dysfunction mild per echo on 06/08/2019 Edema Fibromyalgia, primary GERD (gastroesophageal reflux disease) patient denies History of echocardiogram Hypertension 04/01/2015 Migraines Obesity AYO (obstructive sleep apnea) cannot tolerate C-Pap Pneumonia x2 , had 2 pneumonia shots Restless legs syndrome Saphenous vein clot superficial LLE Shoulder joint pain Spinal stenosis Varicose veins of both lower extremities Past Surgical History: Procedure Laterality Date ANTERIOR CERVICAL DISCECTOMY 02/25/2009 C5-6, C6-7 AR'SCOPY SHOULD SAD, SLAP, RCR, RESECT DISTAL CLAVICLE, BICEPS TENODESIS Right 11/04/2015 ARTHROPLASTY HIP TOTAL Right 02/27/2018 Procedure: RIGHT TOTAL HIP ARTHROPLASTY; Surgeon: Gabo Sears MD; Location: [facility] Main OR; Service: Orthopedic BLADDER SUSPENSION BRONCHOSCOPY CARDIAC CATHETERIZATION Bilateral 09/21/2006 COLONOSCOPY CV IR INTERVENTIONAL RADIOLOGY N/A 08/22/2023 Procedure: VR IVC Filter Insert; Surgeon: Lukas Beverly DO; Location: [facility] EP LAB; Service: Interventional Radiology CV IR INTERVENTIONAL RADIOLOGY N/A 10/07/2023 Procedure: VR IVC Filter Removal; Surgeon: Roxana Lopez MD; Location: [facility] VIDEO INTERN; Service: Interventional Radiology FOOT SURGERY Right 03/08/2005 Third interdigital neuroma excision, fourth metatarsal osteotomy w/capsulotomy, fifth metatarsal head excision HARDWARE REMOVAL ANTERIOR CERVICAL 07/22/2014 C5, C6-7 HARDWARE REMOVAL LUMBAR 01/02/2009 L5-S1 w/ redo decompression laminectomy HYSTERECTOMY CARLOS MANUEL BSO Bladder suspension KNEE ARTHROSCOPY W/ LASER Left 2013 LAMINECTOMY DECOMP LUMBAR W/FUSION 4 OR MORE LVL N/A 11/08/2017 Procedure: HARDWARE REMOVAL L4-S1, DECOMPRESSION/FUSION L2-L4, PLIF, REINSTRUMENT L2-S1; Surgeon: Alejo Hummel MD; Location: [facility] Main OR; Service: Orthopedic LAMINECTOMY DECOMP THORACIC W/FUSION 4 OR MORE LVL N/A 08/18/2023 Procedure: Decompression Thoracic 12-Lumbar1, [id number] 1 Discectomy, Interbody fusion, fixation Thoracic 10-Lumbar5, CT BUCK, Local Bone, Posteriorlateral Fusion Thoracic 10-Lumbar2, cement augmentation Thoracic 10; Surgeon: Jose Fraga MD; Location: [facility] Main OR; Service: Orthopedic LAMINECTOMY DISC ANTERIOR CERVICAL W/ FUSION SINGLE LEVEL N/A 03/13/2021 Procedure: Anterior cervical discectomy fusion cervical4-5 with plate and allograft; Surgeon: Jose Fraga MD; Location: [facility] Main OR; Service: Orthopedic LUMBAR LAMINECTOMY 10/11/2003 L5-S1 decompression w/interbody fusion bilateral and posterior fusion fixation LUNG BIOPSY Right ROTATOR CUFF REPAIR Left THORACOPLASTY WITH RIB FIXATION Right 08/09/2024 Procedure: RIGHT RIB FIXATION, RIGHT CHEST TUBE PLACEMENT, INTERCOSTAL NERVE BLOCK; Surgeon: Dorinda Cobb MD; Location: [facility] Main OR; Service: General Surgery TONSILLECTOMY TOTAL KNEE ARTHROPLASTY Right WISDOM TOOTH EXTRACTION Allergies[1] Prior to Admission medications Medication Sig Start Date End Date Taking? Authorizing Provider albuterol (Ventolin (more content not included)... [facility] 05-14-2025 History of Presen t illness Narrative [facility] [facility] [id number] History: PROGRESS NOTE This 70-year-old lady came in complaining that for the last many months she has been having nausea whenever she is on an empty stomach. As soon as she eats, she feels better. Has been having episodes of vomiting. Denies any abdominal pain. Denies any problems with her bowel movements. Denies having any blood with her stools. Says there is a bump in the rectum and at this stage, she does not want it to be checked. Denies any weight loss. Denies having any black tarry stools. Denies any blood with her stools. FAMILY HISTORY Her mother had carcinoma of the breast. Sister had a carcinoma. She is not sure of the site of the cancer. Grandfather had throat cancer. PAST MEDICAL HISTORY Reviewed with the patient. PAST SURGICAL HISTORY Reviewed with the patient. MEDICATIONS Reviewed with the patient. REVIEW OF SYSTEMS Shows that she has restless legs syndrome and has pain in both legs. Whitley not smoke. Does not take any alcohol. The last CBC which I could see in the chart was in 07/2024 which showed her hemoglobin to be 10.8. No other recent lab tests were available to review. IMPRESSION 1. Nausea, more so on empty stomach. 2. Hypertension. 3. Restless leg syndrome. ADVICE 1. Will start her on Pepcid 40 mg to be taken at nighttime. 2. We will schedule her for an upper endoscopy. Risks, benefits of the procedure were explained to the patient. 3. We will get an ultrasound of the right upper quadrant also. Past Medical History: Diagnosis Date Anxiety Arthritis osteo Asthma 08/23/2014 Back pain Cardiomyopathy (HCC) resolved (EF 45% per cath 09/21/2006; EF 55-60% per echo 04/16/2019). CHF (congestive heart failure) (HCC) Depression Diastolic dysfunction mild per echo on 06/08/2019 Edema Fibromyalgia, primary GERD (gastroesophageal reflux disease) patient denies History of echocardiogram Hypertension 04/01/2015 Migraines Obesity AYO (obstructive sleep apnea) cannot tolerate C-Pap Pneumonia x2 , had 2 pneumonia shots Restless legs syndrome Saphenous vein clot superficial LLE Shoulder joint pain Spinal stenosis Varicose veins of both lower extremities Past Surgical History: Procedure Laterality Date ANTERIOR CERVICAL DISCECTOMY 02/25/2009 C5-6, C6-7 AR'SCOPY SHOULD SAD, SLAP, RCR, RESECT DISTAL CLAVICLE, BICEPS TENODESIS Right 11/04/2015 ARTHROPLASTY HIP TOTAL Right 02/27/2018 Procedure: RIGHT TOTAL HIP ARTHROPLASTY; Surgeon: Gabo Sears MD; Location: [facility] Main OR; Service: Orthopedic BLADDER SUSPENSION BRONCHOSCOPY CARDIAC CATHETERIZATION Bilateral 09/21/2006 COLONOSCOPY CV IR INTERVENTIONAL RADIOLOGY N/A 08/22/2023 Procedure: VR IVC Filter Insert; Surgeon: Lukas Beverly DO; Location: [facility] EP LAB; Service: Interventional Radiology CV IR INTERVENTIONAL RADIOLOGY N/A 10/07/2023 Procedure: VR IVC Filter Removal; Surgeon: Roxana Lopez MD; Location: [facility] VIDEO INTERN; Service: Interventional Radiology FOOT SURGERY Right 03/08/2005 Third interdigital neuroma excision, fourth metatarsal osteotomy w/capsulotomy, fifth metatarsal head excision HARDWARE REMOVAL ANTERIOR CERVICAL 07/22/2014 C5, C6-7 HARDWARE REMOVAL LUMBAR 01/02/2009 L5-S1 w/ redo decompression laminectomy HYSTERECTOMY CARLOS MANUEL BSO Bladder suspension KNEE ARTHROSCOPY W/ LASER Left 2014 LAMINECTOMY DECOMP LUMBAR W/FUSION 4 OR MORE LVL N/A 11/08/2017 Procedure: HARDWARE REMOVAL L4-S1, DECOMPRESSION/FUSION L2-L4, PLIF, REINSTRUMENT L2-S1; Surgeon: Alejo Hummel MD; Location: [facility] Main OR; Service: Orthopedic LAMINECTOMY DECOMP THORACIC W/FUSION 4 OR MORE LVL N/A 08/18/2023 Procedure: Decompression Thoracic 12-Lumbar1, [id number] 1 Discectomy, Interbody fusion, fixation Thoracic 10-Lumbar5, CT BUCK, Local Bone, Posteriorlateral Fusion Thoracic 10-Lumbar2, cement augmentation Thoracic 10; Surgeon: Jose Fraga MD; Location: [facility] Main OR; Service: Orthopedic LAMINECTOMY DISC ANTERIOR CERVICAL W/ FUSION SINGLE LEVEL N/A 03/13/2021 Procedure: Anterior cervical discectomy fusion cervical4-5 with plate and allograft; Surgeon: Jose Fraga MD; Location: [facility] Main OR; Service: Orthopedic LUMBAR LAMINECTOMY 10/11/2003 L5-S1 decompression w/interbody fusion bilateral and posterior fusion fixation LUNG BIOPSY Right ROTATOR CUFF REPAIR Left THORACOPLASTY WITH RIB FIXATION Right 08/09/2024 Procedure: RIGHT RIB FIXATION, RIGHT CHEST TUBE PLACEMENT, INTERCOSTAL NERVE BLOCK; Surgeon: Dorinda Cobb MD; Location: [facility] Main OR; Service: General Surgery TONSILLECTOMY TOTAL KNEE ARTHROPLASTY Right WISDOM TOOTH EXTRACTION Allergies[1] Prior to Admission medications Medication Sig Start Date End Date Taking? Authorizing Provider albuterol (Ventolin HFA) 90 mcg/actuation inhaler Inhale 1 (one) puff every 6 (six) hours as needed for wheezing . 04/22/21 05/14/25 Yes Dilip Mckeon MD AMLODIPINE BESYLATE, BULK, MISC Take 10 mg by mouth daily with breakfast. 05/08/24 Yes ProviderGeo MD aspirin 81 MG EC tablet Take 1 (one) tablet (81 mg total) by mouth daily . Yes ProviderGeo MD atorvastatin (LIPITOR) 40 MG tablet Take 1 (one) tablet (40 mg total) by mouth daily . Yes Geo Rubio MD beclomethasone dipropionate (Qvar RediHaler) 40 mcg/actuation HFAB Inhale 2 puffs 2 (two) times a day. Yes Geo Rubio MD caffeine 200 mg Take 1 (one) tablet (200 mg total) by mouth every 7 days . Yes Geo Rubio MD clonazePAM (KLONOPIN) 1 MG tablet Take 1 (one) tablet (1 mg total) by mouth 2 (two) times a day as needed for anxiety . 08/23/18 Yes Geo Rubio MD diphenhydrAMINE (BENADRYL) 25 mg capsule Take 1 (one) capsule to 2 (two) capsules (25-50 mg total) by mouth at bedtime . Yes Geo Rubio MD doxylamine (UNISOM) 25 mg tablet Take by mouth . Yes Geo Rubio MD DULoxetine (CYMBALTA) 30 MG capsule Take 30 mg by mouth daily. Yes Geo Rubio MD flu vacc [id number] up,-PF (FLUZONE HD) 180 mcg/0.5 mL syringe 08/14/24 Yes Nafisa Santos MD furosemide (LASIX) 40 MG tablet Take 20 mg by mouth daily . Patient taking differently: Take 10 mg by mouth daily . Yes Geo Rubio MD lisinopril (PRINIVIL,ZESTRIL) 20 MG tablet Take 1 (one) tablet (20 mg total) by mouth every morning Reasons: high blood pressure. 06/27/15 Yes Geo Rubio MD magnesium gluconate (MAGONATE) 27.5 mg magne- sium (500 mg) tablet Take 1 (one) tablet (500 mg total) by mouth daily . Yes Geo Rubio MD meclizine (ANTIVERT) 12.5 mg tablet Take 25 mg by mouth 2 (two) times a day. 1-2 tablets every 6-12 hours as needed Indications: sensation of spinning or whirling Yes Geo Rubio MD montelukast (SINGULAIR) 10 mg tablet Take 1 (one) tablet (10 mg total) by mouth every morning . Yes Geo Rubio MD icnjgetlgxlq-qpbuovvy-alcgje (Multivitamin 50 Plus) Tab Take 1 tablet by mouth daily . Yes Geo Rubio MD naloxone (NARCAN) 4 mg/actuation [address] Administer 1 spray into one nostril for known or suspected opioid overdose. If patient worsens or does not respond, may repeat in 2-3 minutes. . 10/28/23 Yes Rudolph Gómez MD nystatin (MYCOSTATIN) powder Apply topically 2 (two) times a day . 08/14/24 08/14/25 Yes Nafisa Santos MD ondansetron (ZOFRAN-ODT) 4 MG disintegrating tablet Dissolve 1 (one) tablet (4 mg total) on top of tongue every 6 (six) hours as needed . 08/14/24 05/14/25 Yes Nafisa Santos MD oxyCODONE-acetaminophen (PERCOCET) 10-325 mg per tablet Take 2 tablets by mouth every 8 (eight) hours as needed for pain . Yes Geo Rubio MD rOPINIRole (REQUIP) 2 MG tablet Take 3 mg by mouth 3 (three) times a day as needed for restless legs Reasons: restless legs syndrome, an extreme discomfort in the calf muscles when sitting or lying down. 12/11/16 Yes Geo Rubio MD SUMAtriptan (IMITREX) 100 MG tablet Take 1 (one) tablet (100 mg total) by mouth every 2 (two) hours as needed for migraine Max of 200 mg in 24hrs . Yes Geo Rubio MD famotidine (PEPCID) 40 MG tablet Take 1 (one) tablet (40 mg total) by mouth daily . 05/14/25 05/14/26 Ruiz Alcantar MD gabapentin (NEURONTIN) 300 MG capsule Take 1 (one) capsule (300 mg total) by mouth every 8 (eight) hours as needed . Patient not taking: Reported on 05/14/2025 . 08/14/24 Nafisa Santos MD sertraline (ZOLOFT) 50 MG tablet Take 1 (one) tablet (50 mg total) by mouth every morning . Patient not taking: Reported on 05/14/2025 . Geo Rubio MD traZODone (DESYREL) 100 MG tablet Take 100 mg by mouth nightly. Patient not taking: Reported on 05/14/2025 . Geo Rubio MD Social History [2] Family History Problem Relation Age of Onset Cancer Mother Breast cancer Mother ; cancer went to brain, liver and lungs Brain cancer Mother Liver cancer Mother Lung cancer Mother Hypertension Father Heart disease Father Diabetes Father Depression Father Heart attack Father Diabetes type II Father Hypertension Sister Cancer Sister Diabetes Sister Diabetes type II Sister No Known Problems Brother Hypertension Other siblings Diabetes Other siblings Surgical complications Neg Hx Anesthesia problems Neg Hx Clotting disorder Neg Hx Deep vein thrombosis Neg Hx Pulmonary embolism Neg Hx reports that she does not currently use alcohol. reports that she has never smoked. She has never used smokeless tobacco. Review of Systems Constitutional: Negative HENT: Negative Eyes: Negative Respiratory: Negative Cardiovascular: Negative Ht 5' 2 Wt 80.7 kg (178 lb) LMP (LMP Unknown) BMI 32.56 kg/m 80.7 kg (178 lb) 5' 2 Body mass index is 32.56 kg/m . Physical Exam Constitutional: Patient is oriented to person, place, and time. Patient appears well Head: Normocephalic and atraumatic. Eyes: Pupils are equal, round, and reactive to light. Neck: No thyromegaly present. Cardiovascular: Normal rate, rhythm, and normal heart sounds. Exam reveals no friction rub. No murmur heard. Pulmonary/Chest: No respiratory distress. Patient has no wheezes. Abdominal: Soft. Normal appearance and bowel sounds are normal. Patient exhibits no distension and no mass. There is no hepatosplenomegaly. There is no tenderness. There is no rebound. Musculoskeletal: Normal range of motion. Patient exhibits no edema. Neurological: Patient is alert and oriented to person, place, and time. Ruiz Alcantar MD [1] Allergies Allergen Reactions Duloxetine GI Intolerance Nausea Nsaids (Non-Steroidal Anti-Inflammatory Drug) GI Intolerance Ibuprofen GI Intolerance Lyrica [Pregabalin] Other (See Comments) nightmares Metformin GI Intolerance [2] Social History Socioeconomic History Marital status: Spouse name: Derrek Tobacco Use Smoking status: Never Smokeless tobacco: Never Tobacco comments: 04/21/21,01/21/25 Vaping Use Vaping status: Never Used Substance and Sexual Activity Alcohol use: Not Currently Comment: sometimes 10 a year; rare 01/21/25 Drug use: No Comment: tried all forms of medical marijuana without positive results in last 6 weeks, 01/21/25 Sexual activity: Yes Partners: Male control/protection: None Social History Narrative Merged History Encounter Social Drivers of Health Financial Resource Strain: Low Risk (08/11/2023) Overall Financial Resource Strain (CARDIA) Difficulty of Paying Living Expenses: Not very hard Food Insecurity: No Food Insecurity (08/07/2024) Hunger Vital Sign Worried About Running Out of Food in the Last Year: Never true Ran Out of Food in the Last Year: Never true Transportation Needs: No Transportation Needs (09/17/2024) OASIS A1250: Transportation Lack of Transportation (Medical): No Lack of Transportation (Non-Medical): No Patient Unable or Declines to Respond: No Recent Concern: Transportation Needs - Unmet Transportation Needs (08/07/2024) PRAPARE - Transportation Lack of Transportation (Medical): Yes Lack of Transportation (Non-Medical): Yes Housing Stability: Low Risk (08/07/2024) Housing Stability Vital Sign Unable to Pay for Housing in the Last Year: No Number of Times Moved in the Last Year: 0 Homeless in the Last Year: No documented in this encounter [facility] 04-29-2025 Note Interventional Cardi ology Clinic Consult Heart & Vascular [facility] 04/29/2025 Dc Wells MD [address] [place], [place] [id number] Patient: Matthew Perez Date of : 1955 (70 y.o.) Referring Provider: Bhanu Brice, * PCP: Harmony Gee MD Assessment & Plan AYO, noncompliant CPAP Pulmonary hypertension, RVSP 46 mmHg Hyperlipidemia Hypertension 70-year-old female referred to us to reestablish care. She previously saw Dr. Ha in 2021 for hypertension, previous history of cardiomyopathy with recovered EF. She had nonischemic cardiomyopathy in 2006 LVEF 45% with recovered LVEF noted on echocardiogram in 2019. She also has history of fibromyalgia, anxiety, hypertension, AYO noncompliant with CPAP, history of spinal stenosis with previous back surgery. Previous echocardiogram July 2023 shows LVEF of 67% with pulmonary hypertension RVSP 46 mmHg. She denies any orthopnea, PND, dyspnea, palpitations, dizziness, syncope, chest pain or discomfort. She is active recently quit cleaned her home including scrubbing carpets without any difficulty. Denies any lifestyle-limiting symptoms. In light of her noncompliant CPAP she endorses feeding concerns and elevated right-sided pressures noted on echo will recommend referral to sleep medicine. Will repeat echo to see if there is any progression. Coding query: diagnosis: shortness of breath Follow-up: Return in about 6 months (around 10/29/2025). Chief Complaint: Heart Problem (Patient presents in the office to establish care-denies any current concerns) [facility] NEW cardiology patient visit Subjective History of Present Illness: Matthew Perez is a 70 y.o. female arthritis, anxiety, fibromyalgia, AYO, hyperlipidemia here to reestablish care referred from primary care. She was referred due to previous history of CHF. She denies any symptoms orthopnea, PND, dyspnea. Her activity is limited due to previous back surgery. She has noted to have significant arthritis in her hip with previous arthroplasty noted on CT scan in 2023. She is able to do activities of daily living at home without any lifestyle-limiting symptoms. Denies any chest pain, heaviness, pressure or discomfort. Objective Imaging ECG 12 Lead Final Result by Interface, Lab Results In [place] [facility] (08/14/2024 0750) Echocardiogram complete Final Result by Pablo Mullen MD (07/25/20232031) Review of Systems: Pertinent positive and negative review of systems findings noted in HPI Review of Systems Cardiovascular: Positive for leg swelling. Negative for chest pain, cyanosis, dyspnea on exertion, irregular heartbeat, near-syncope, orthopnea, palpitations, paroxysmal nocturnal dyspnea and syncope. Respiratory: Positive for shortness of breath. Past Medical History: Diagnosis Date Anxiety Arthritis osteo Asthma 08/23/2014 Back pain Cardiomyopathy (HCC) resolved (EF 45% per cath 09/21/2006; EF 55-60% per echo 04/16/2019). CHF (congestive heart failure) (HCC) Depression Diastolic dysfunction mild per echo on 06/08/2019 Edema Fibromyalgia, primary GERD (gastroesophageal reflux disease) patient denies History of echocardiogram Hypertension 04/01/2015 Migraines Obesity AYO (obstructive sleep apnea) cannot tolerate C-Pap Pneumonia x2 , had 2 pneumonia shots Restless legs syndrome Saphenous vein clot superficial LLE Shoulder joint pain Spinal stenosis Varicose veins of both lower extremities Past Surgical History: Procedure Laterality Date ANTERIOR CERVICAL DISCECTOMY 02/25/2009 C5-6, C6-7 AR'SCOPY SHOULD SAD, SLAP, RCR, RESECT DISTAL CLAVICLE, BICEPS TENODESIS Right 11/04/2015 ARTHROPLASTY HIP TOTAL Right 02/27/2018 Procedure: RIGHT TOTAL HIP ARTHROPLASTY; Surgeon: Gabo Sears MD; Location: [facility] Main OR; Service: Orthopedic BLADDER SUSPENSION BRONCHOSCOPY CARDIAC CATHETERIZATION Bilateral 09/21/2006 COLONOSCOPY CV IR INTERVENTIONAL RADIOLOGY N/A 08/22/2023 Procedure: VR IVC Filter Insert; Surgeon: Lukas Beverly DO; Location: [facility] EP LAB; Service: Interventional Radiology CV IR INTERVENTIONAL RADIOLOGY N/A 10/07/2023 Procedure: VR IVC Filter Removal; Surgeon: Roxana Lopez MD; Location: [facility] VIDEO INTERN; Service: Interventional Radiology FOOT SURGERY Right 03/08/2005 Third interdigital neuroma excision, fourth metatarsal osteotomy w/capsulotomy, fifth metatarsal head excision HARDWARE REMOVAL ANTERIOR CERVICAL 07/22/2014 C5, C6-7 HARDWARE REMOVAL LUMBAR 01/02/2009 L5-S1 w/ redo decompression laminectomy HYSTERECTOMY CARLOS MANUEL BSO Bladder suspension KNEE ARTHROSCOPY W/ LASER Left 2013 LAMINECTOMY DECOMP LUMBAR W/FUSION 4 OR MORE LVL N/A 11/08/2017 Procedure: HARDWARE REMOVAL L4-S1, DECOMPRESSION/FUSION L2-L4, PLIF, REINSTRUMENT L2-S1; Surgeon: Alejo Hummel MD; Location: [facility] Main OR; Serv (more content not included)... [facility] 04-29-2025 History of Presen t illness Narrative Interventional Cardiology Clinic Consult Heart & Vascular [facility] 04/29/2025 Dc Wells MD [address] [place] [address] Patient: Matthew Perez Date of : 1955 (70 y.o.) Referring Provider: Bhanu Brice, * PCP: Harmony Gee MD Assessment & Plan AYO, noncompliant CPAP Pulmonary hypertension, RVSP 46 mmHg Hyperlipidemia Hypertension 70-year-old female referred to us to reestablish care. She previously saw Dr. Ha in 2021 for hypertension, previous history of cardiomyopathy with recovered EF. She had nonischemic cardiomyopathy in 2006 LVEF 45% with recovered LVEF noted on echocardiogram in 2019. She also has history of fibromyalgia, anxiety, hypertension, AYO noncompliant with CPAP, history of spinal stenosis with previous back surgery. Previous echocardiogram July 2023 shows LVEF of 67% with pulmonary hypertension RVSP 46 mmHg. She denies any orthopnea, PND, dyspnea, palpitations, dizziness, syncope, chest pain or discomfort. She is active recently quit cleaned her home including scrubbing carpets without any difficulty. Denies any lifestyle-limiting symptoms. In light of her noncompliant CPAP she endorses feeding concerns and elevated right-sided pressures noted on echo will recommend referral to sleep medicine. Will repeat echo to see if there is any progression. Follow-up: Return in about 6 months (around 10/29/2025). Chief Complaint: Heart Problem (Patient presents in the office to establish care-denies any current concerns) [facility] NEW cardiology patient visit Subjective History of Present Illness: Matthew Perez is a 70 y.o. female arthritis, anxiety, fibromyalgia, AYO, hyperlipidemia here to reestablish care referred from primary care. She was referred due to previous history of CHF. She denies any symptoms orthopnea, PND, dyspnea. Her activity is limited due to previous back surgery. She has noted to have significant arthritis in her hip with previous arthroplasty noted on CT scan in 2023. She is able to do activities of daily living at home without any lifestyle-limiting symptoms. Denies any chest pain, heaviness, pressure or discomfort. Objective Imaging ECG 12 Lead Final Result by Interface, Lab Results In [place] [facility] (08/14/2024 0750) Echocardiogram complete Final Result by Pablo Mullen MD (07/25/20232031) Review of Systems: Pertinent positive and negative review of systems findings noted in HPI Review of Systems Cardiovascular: Positive for leg swelling. Negative for chest pain, cyanosis, dyspnea on exertion, irregular heartbeat, near-syncope, orthopnea, palpitations, paroxysmal nocturnal dyspnea and syncope. Respiratory: Positive for shortness of breath. Past Medical History: Diagnosis Date Anxiety Arthritis osteo Asthma 08/23/2014 Back pain Cardiomyopathy (HCC) resolved (EF 45% per cath 09/21/2006; EF 55-60% per echo 04/16/2019). CHF (congestive heart failure) (HCC) Depression Diastolic dysfunction mild per echo on 06/08/2019 Edema Fibromyalgia, primary GERD (gastroesophageal reflux disease) patient denies History of echocardiogram Hypertension 04/01/2015 Migraines Obesity AYO (obstructive sleep apnea) cannot tolerate C-Pap Pneumonia x2 , had 2 pneumonia shots Restless legs syndrome Saphenous vein clot superficial LLE Shoulder joint pain Spinal stenosis Varicose veins of both lower extremities Past Surgical History: Procedure Laterality Date ANTERIOR CERVICAL DISCECTOMY 02/25/2009 C5-6, C6-7 AR'BRITTON SHOULD SAD, SLAP, RCR, RESECT DISTAL CLAVICLE, BICEPS TENODESIS Right 11/04/2015 ARTHROPLASTY HIP TOTAL Right 02/27/2018 Procedure: RIGHT TOTAL HIP ARTHROPLASTY; Surgeon: Gabo Sears MD; Location: [facility] Main OR; Service: Orthopedic BLADDER SUSPENSION BRONCHOSCOPY CARDIAC CATHETERIZATION Bilateral 09/21/2006 COLONOSCOPY CV IR INTERVENTIONAL RADIOLOGY N/A 08/22/2023 Procedure: VR IVC Filter Insert; Surgeon: Lukas Beverly DO; Location: [facility] EP LAB; Service: Interventional Radiology CV IR INTERVENTIONAL RADIOLOGY N/A 10/07/2023 Procedure: VR IVC Filter Removal; Surgeon: Roxana Lopez MD; Location: [facility] VIDEO INTERN; Service: Interventional Radiology FOOT SURGERY Right 03/08/2005 Third interdigital neuroma excision, fourth metatarsal osteotomy w/capsulotomy, fifth metatarsal head excision HARDWARE REMOVAL ANTERIOR CERVICAL 07/22/2014 C5, C6-7 HARDWARE REMOVAL LUMBAR 01/02/2009 L5-S1 w/ redo decompression laminectomy HYSTERECTOMY CARLOS MANUEL BSO Bladder suspension KNEE ARTHROSCOPY W/ LASER Left 2013 LAMINECTOMY DECOMP LUMBAR W/FUSION 4 OR MORE LVL N/A 11/08/2017 Procedure: HARDWARE REMOVAL L4-S1, DECOMPRESSION/FUSION L2-L4, PLIF, REINSTRUMENT L2-S1; Surgeon: Alejo Hummel MD; Location: [facility] Main OR; Service: Orthopedic LAMINECTOMY DECOMP THORACIC W/FUSION 4 OR MORE LVL N/A 08/18/2023 Procedure: Decompression Thoracic 12-Lumbar1, [id number] 1 Discectomy, Interbody fusion, fixation Thoracic 10-Lumbar5, CT BUCK, Local Bone, Posteriorlateral Fusion Thoracic 10-Lumbar2, cement augmentation Thoracic 10; Surgeon: Jose Fraga MD; Location: [facility] Main OR; Service: Orthopedic LAMINECTOMY DISC ANTERIOR CERVICAL W/ FUSION SINGLE LEVEL N/A 03/13/2021 Procedure: Anterior cervical discectomy fusion cervical4-5 with plate and allograft; Surgeon: Jose Fraga MD; Location: [facility] Main OR; Service: Orthopedic LUMBAR LAMINECTOMY 10/11/2003 L5-S1 decompression w/interbody fusion bilateral and posterior fusion fixation LUNG BIOPSY Right ROTATOR CUFF REPAIR Left THORACOPLASTY WITH RIB FIXATION Right 08/09/2024 Procedure: RIGHT RIB FIXATION, RIGHT CHEST TUBE PLACEMENT, INTERCOSTAL NERVE BLOCK; Surgeon: Dorinda Cobb MD; Location: [facility] Main OR; Service: General Surgery TONSILLECTOMY TOTAL KNEE ARTHROPLASTY Right WISDOM TOOTH EXTRACTION Family History Problem Relation Age of Onset Cancer Mother Breast cancer Mother ; cancer went to brain, liver and lungs Brain cancer Mother Liver cancer Mother Lung cancer Mother Hypertension Father Heart disease Father Diabetes Father Depression Father Heart attack Father Diabetes type II Father Hypertension Sister Cancer Sister Diabetes Sister Diabetes type II Sister No Known Problems Brother Hypertension Other siblings Diabetes Other siblings Surgical complications Neg Hx Anesthesia problems Neg Hx Clotting disorder Neg Hx Deep vein thrombosis Neg Hx Pulmonary embolism Neg Hx Tobacco Use History[1] Allergies: Duloxetine, Nsaids (non-steroidal anti-inflammatory drug), Ibuprofen, Lyrica [pregabalin], and Metformin HOME Medications: Current Outpatient Medications on File Prior to Visit Medication Sig albuterol (Ventolin HFA) 90 mcg/actuation inhaler Inhale 1 (one) puff every 6 (six) hours as needed for wheezing . AMLODIPINE BESYLATE, BULK, MISC Take 10 mg by mouth daily with breakfast. atorvastatin (LIPITOR) 40 MG tablet Take 1 (one) tablet (40 mg total) by mouth daily . beclomethasone dipropionate (Qvar RediHaler) 40 mcg/actuation HFAB Inhale 2 puffs 2 (two) times a day. caffeine 200 mg Take 1 (one) tablet (200 mg total) by mouth every 7 days . doxylamine (UNISOM) 25 mg tablet Take by mouth . furosemide (LASIX) 40 MG tablet Take 20 mg by mouth daily . (Patient taking differently: Take 10 mg by mouth daily .) lisinopril (PRINIVIL,ZESTRIL) 20 MG tablet Take 1 (one) tablet (20 mg total) by mouth every morning Reasons: high blood pressure. xrqsfudbgyda-bldikqhe-eawgoa (Multivitamin 50 Plus) Tab Take 1 tablet by mouth daily . oxyCODONE-acetaminophen (PERCOCET) 10-325 mg per tablet Take 2 tablets by mouth every 8 (eight) hours as needed for pain . rOPINIRole (REQUIP) 2 MG tablet Take 3 mg by mouth 3 (three) times a day as needed for restless legs Reasons: restless legs syndrome, an extreme discomfort in the calf muscles when sitting or lying down. aspirin 81 MG EC tablet Take 1 (one) tablet (81 mg total) by mouth daily . (Patient not taking: Reported on 04/29/2025 .) clonazePAM (KLONOPIN) 1 MG tablet Take 1 (one) tablet (1 mg total) by mouth 2 (two) times a day as needed for anxiety . (Patient not taking: Reported on 04/29/2025 .) diphenhydrAMINE (BENADRYL) 25 mg capsule Take 1 (one) capsule to 2 (two) capsules (25-50 mg total) by mouth at bedtime . (Patient not taking: Reported on 04/29/2025 .) DULoxetine (CYMBALTA) 30 MG capsule Take 30 mg by mouth daily. (Patient not taking: Reported on 04/29/2025 .) flu vacc [id number],65yr up,-PF (FLUZONE HD) 180 mcg/0.5 mL syringe (Patient not taking: Reported on 04/29/2025 .) gabapentin (NEURONTIN) 300 MG capsule Take 1 (one) capsule (300 mg total) by mouth every 8 (eight) hours as needed . (Patient not taking: Reported on 04/29/2025 .) magnesium gluconate (MAGONATE) 27.5 mg magne- sium (500 mg) tablet Take 1 (one) tablet (500 mg total) by mouth daily . (Patient not taking: Reported on 04/29/2025 .) meclizine (ANTIVERT) 12.5 mg tablet Take 25 mg by mouth 2 (two) times a day. 1-2 tablets every 6-12 hours as needed Indications: sensation of spinning or whirling (Patient not taking: Reported on 04/29/2025 .) montelukast (SINGULAIR) 10 mg tablet Take 1 (one) tablet (10 mg total) by mouth every morning . (Patient not taking: Reported on 04/29/2025 .) naloxone (NARCAN) 4 mg/actuation [address] Administer 1 spray into one nostril for known or suspected opioid overdose. If patient worsens or does not respond, may repeat in 2-3 minutes. . (Patient not taking: Reported on 04/29/2025 .) nystatin (MYCOSTATIN) powder Apply topically 2 (two) times a day . (Patient not taking: Reported on 04/29/2025 .) ondansetron (ZOFRAN-ODT) 4 MG disintegrating tablet Dissolve 1 (one) tablet (4 mg total) on top of tongue every 6 (six) hours as needed . (Patient not taking: Reported on 04/29/2025 .) sertraline (ZOLOFT) 50 MG tablet Take 1 (one) tablet (50 mg total) by mouth every morning . (Patient not taking: Reported on 04/29/2025 .) SUMAtriptan (IMITREX) 100 MG tablet Take 1 (one) tablet (100 mg total) by mouth every 2 (two) hours as needed for migraine Max of 200 mg in 24hrs . (Patient not taking: Reported on 04/29/2025 .) traZODone (DESYREL) 100 MG tablet Take 100 mg by mouth nightly. (Patient not taking: Reported on 04/29/2025 .) No current facility-administered medications on file prior to visit. Physical Examination: BP 110/71 (BP Location: Left arm, Patient Position: Sitting, BP Cuff Size: Adult) Pulse 84 Ht 5' 2 Wt 75.3 kg (166 lb) LMP (LMP Unknown) SpO2 91% BMI 30.36 kg/m Physical Exam Vitals reviewed. Constitutional: Appearance: Normal appearance. Cardiovascular: Rate and Rhythm: Normal rate and regular rhythm. Heart sounds: No murmur heard. Neurological: Mental Status: She is alert. Lab Results Component Value Date ALBUMIN 3.9 08/06/2024 ALT 10 08/06/2024 AST 22 08/06/2024 BUN 15 08/14/2024 CALCIUM 9.0 08/14/2024 CL 101 08/14/2024 CHOL 171 03/04/2021 CREATININE 0.46 (L) 08/14/2024 GFRAA >60 04/13/2015 HDL 74 03/04/2021 HCT 34.4 (L) 08/14/2024 HGB 10.8 (L) 08/14/2024 HGBA1C 5.8 (H) 05/31/2023 LDL 93 09/20/2006 MG 1.7 08/14/2024 PHOS 3.8 08/14/2024 PLT 147 (L) 08/14/2024 K 3.4 (L) 08/14/2024 NA 140 08/14/2024 TRIG 60 03/04/2021 TSH 2.14 06/01/2023 WBC 7.18 08/14/2024 Lab Results Component Value Date CHOL 171 03/04/2021 LDLCALC 85 03/04/2021 TRIG 60 03/04/2021 HDL 74 03/04/2021 [1] Social History Tobacco Use Smoking Status Never Smokeless Tobacco Never Tobacco Comments 04/21/21,01/21/25 documented in this encounter [facility] 04-29-2025 History of Presen t illness Narrative Interventional Cardiology Clinic Consult Heart & Vascular [facility] 04/29/2025 Dc Wells MD [address] [place] [address] Patient: Matthew Perez Date of : 1955 (70 y.o.) Referring Provider: Bhanu Brice, * PCP: Harmony Gee MD Assessment & Plan AYO, noncompliant CPAP Pulmonary hypertension, RVSP 46 mmHg Hyperlipidemia Hypertension 70-year-old female referred to us to reestablish care. She previously saw Dr. Ha in 2021 for hypertension, previous history of cardiomyopathy with recovered EF. She had nonischemic cardiomyopathy in 2006 LVEF 45% with recovered LVEF noted on echocardiogram in 2019. She also has history of fibromyalgia, anxiety, hypertension, AYO noncompliant with CPAP, history of spinal stenosis with previous back surgery. Previous echocardiogram July 2023 shows LVEF of 67% with pulmonary hypertension RVSP 46 mmHg. She denies any orthopnea, PND, dyspnea, palpitations, dizziness, syncope, chest pain or discomfort. She is active recently quit cleaned her home including scrubbing carpets without any difficulty. Denies any lifestyle-limiting symptoms. In light of her noncompliant CPAP she endorses feeding concerns and elevated right-sided pressures noted on echo will recommend referral to sleep medicine. Will repeat echo to see if there is any progression. Coding query: diagnosis: shortness of breath Follow-up: Return in about 6 months (around 10/29/2025). Chief Complaint: Heart Problem (Patient presents in the office to establish care-denies any current concerns) [facility] NEW cardiology patient visit Subjective History of Present Illness: Matthew Perez is a 70 y.o. female arthritis, anxiety, fibromyalgia, AYO, hyperlipidemia here to reestablish care referred from primary care. She was referred due to previous history of CHF. She denies any symptoms orthopnea, PND, dyspnea. Her activity is limited due to previous back surgery. She has noted to have significant arthritis in her hip with previous arthroplasty noted on CT scan in 2023. She is able to do activities of daily living at home without any lifestyle-limiting symptoms. Denies any chest pain, heaviness, pressure or discomfort. Objective Imaging ECG 12 Lead Final Result by Interface, Lab Results In [place] [facility] (08/14/2024 0750) Echocardiogram complete Final Result by Pablo Mullen MD (07/25/20232031) Review of Systems: Pertinent positive and negative review of systems findings noted in HPI Review of Systems Cardiovascular: Positive for leg swelling. Negative for chest pain, cyanosis, dyspnea on exertion, irregular heartbeat, near-syncope, orthopnea, palpitations, paroxysmal nocturnal dyspnea and syncope. Respiratory: Positive for shortness of breath. Past Medical History: Diagnosis Date Anxiety Arthritis osteo Asthma 08/23/2014 Back pain Cardiomyopathy (HCC) resolved (EF 45% per cath 09/21/2006; EF 55-60% per echo 04/16/2019). CHF (congestive heart failure) (HCC) Depression Diastolic dysfunction mild per echo on 06/08/2019 Edema Fibromyalgia, primary GERD (gastroesophageal reflux disease) patient denies History of echocardiogram Hypertension 04/01/2015 Migraines Obesity AYO (obstructive sleep apnea) cannot tolerate C-Pap Pneumonia x2 , had 2 pneumonia shots Restless legs syndrome Saphenous vein clot superficial LLE Shoulder joint pain Spinal stenosis Varicose veins of both lower extremities Past Surgical History: Procedure Laterality Date ANTERIOR CERVICAL DISCECTOMY 02/25/2009 C5-6, C6-7 AR'SCOPY SHOULD SAD, SLAP, RCR, RESECT DISTAL CLAVICLE, BICEPS TENODESIS Right 11/04/2015 ARTHROPLASTY HIP TOTAL Right 02/27/2018 Procedure: RIGHT TOTAL HIP ARTHROPLASTY; Surgeon: Gabo Sears MD; Location: [facility] Main OR; Service: Orthopedic BLADDER SUSPENSION BRONCHOSCOPY CARDIAC CATHETERIZATION Bilateral 09/21/2006 COLONOSCOPY CV IR INTERVENTIONAL RADIOLOGY N/A 08/22/2023 Procedure: VR IVC Filter Insert; Surgeon: Lukas Beverly DO; Location: [facility] EP LAB; Service: Interventional Radiology CV IR INTERVENTIONAL RADIOLOGY N/A 10/07/2023 Procedure: VR IVC Filter Removal; Surgeon: Roxana Lopez MD; Location: [facility] VIDEO INTERN; Service: Interventional Radiology FOOT SURGERY Right 03/08/2005 Third interdigital neuroma excision, fourth metatarsal osteotomy w/capsulotomy, fifth metatarsal head excision HARDWARE REMOVAL ANTERIOR CERVICAL 07/22/2014 C5, C6-7 HARDWARE REMOVAL LUMBAR 01/02/2009 L5-S1 w/ redo decompression laminectomy HYSTERECTOMY CARLOS MANUEL BSO Bladder suspension KNEE ARTHROSCOPY W/ LASER Left 2013 LAMINECTOMY DECOMP LUMBAR W/FUSION 4 OR MORE LVL N/A 11/08/2017 Procedure: HARDWARE REMOVAL L4-S1, DECOMPRESSION/FUSION L2-L4, PLIF, REINSTRUMENT L2-S1; Surgeon: Alejo Hummel MD; Location: [facility] Main OR; Service: Orthopedic LAMINECTOMY DECOMP THORACIC W/FUSION 4 OR MORE LVL N/A 08/18/2023 Procedure: Decompression Thoracic 12-Lumbar1, [id number] 1 Discectomy, Interbody fusion, fixation Thoracic 10-Lumbar5, CT BUCK, Local Bone, Posteriorlateral Fusion Thoracic 10-Lumbar2, cement augmentation Thoracic 10; Surgeon: Jose Fraga MD; Location: [facility] Main OR; Service: Orthopedic LAMINECTOMY DISC ANTERIOR CERVICAL W/ FUSION SINGLE LEVEL N/A 03/13/2021 Procedure: Anterior cervical discectomy fusion cervical4-5 with plate and allograft; Surgeon: Jose Fraga MD; Location: [facility] Main OR; Service: Orthopedic LUMBAR LAMINECTOMY 10/11/2003 L5-S1 decompression w/interbody fusion bilateral and posterior fusion fixation LUNG BIOPSY Right ROTATOR CUFF REPAIR Left THORACOPLASTY WITH RIB FIXATION Right 08/09/2024 Procedure: RIGHT RIB FIXATION, RIGHT CHEST TUBE PLACEMENT, INTERCOSTAL NERVE BLOCK; Surgeon: Dorinda Cobb MD; Location: [facility] Main OR; Service: General Surgery TONSILLECTOMY TOTAL KNEE ARTHROPLASTY Right WISDOM TOOTH EXTRACTION Family History Problem Relation Age of Onset Cancer Mother Breast cancer Mother ; cancer went to brain, liver and lungs Brain cancer Mother Liver cancer Mother Lung cancer Mother Hypertension Father Heart disease Father Diabetes Father Depression Father Heart attack Father Diabetes type II Father Hypertension Sister Cancer Sister Diabetes Sister Diabetes type II Sister No Known Problems Brother Hypertension Other siblings Diabetes Other siblings Surgical complications Neg Hx Anesthesia problems Neg Hx Clotting disorder Neg Hx Deep vein thrombosis Neg Hx Pulmonary embolism Neg Hx Tobacco Use History[1] Allergies: Duloxetine, Nsaids (non-steroidal anti-inflammatory drug), Ibuprofen, Lyrica [pregabalin], and Metformin HOME Medications: Current Outpatient Medications on File Prior to Visit Medication Sig albuterol (Ventolin HFA) 90 mcg/actuation inhaler Inhale 1 (one) puff every 6 (six) hours as needed for wheezing . AMLODIPINE BESYLATE, BULK, MISC Take 10 mg by mouth daily with breakfast. atorvastatin (LIPITOR) 40 MG tablet Take 1 (one) tablet (40 mg total) by mouth daily . beclomethasone dipropionate (Qvar RediHaler) 40 mcg/actuation HFAB Inhale 2 puffs 2 (two) times a day. caffeine 200 mg Take 1 (one) tablet (200 mg total) by mouth every 7 days . doxylamine (UNISOM) 25 mg tablet Take by mouth . furosemide (LASIX) 40 MG tablet Take 20 mg by mouth daily . (Patient taking differently: Take 10 mg by mouth daily .) lisinopril (PRINIVIL,ZESTRIL) 20 MG tablet Take 1 (one) tablet (20 mg total) by mouth every morning Reasons: high blood pressure. agipxgkwxhfi-spsysitw-nqljdi (Multivitamin 50 Plus) Tab Take 1 tablet by mouth daily . oxyCODONE-acetaminophen (PERCOCET) 10-325 mg per tablet Take 2 tablets by mouth every 8 (eight) hours as needed for pain . rOPINIRole (REQUIP) 2 MG tablet Take 3 mg by mouth 3 (three) times a day as needed for restless legs Reasons: restless legs syndrome, an extreme discomfort in the calf muscles when sitting or lying down. aspirin 81 MG EC tablet Take 1 (one) tablet (81 mg total) by mouth daily . (Patient not taking: Reported on 04/29/2025 .) clonazePAM (KLONOPIN) 1 MG tablet Take 1 (one) tablet (1 mg total) by mouth 2 (two) times a day as needed for anxiety . (Patient not taking: Reported on 04/29/2025 .) diphenhydrAMINE (BENADRYL) 25 mg capsule Take 1 (one) capsule to 2 (two) capsules (25-50 mg total) by mouth at bedtime . (Patient not taking: Reported on 04/29/2025 .) DULoxetine (CYMBALTA) 30 MG capsule Take 30 mg by mouth daily. (Patient not taking: Reported on 04/29/2025 .) flu vacc [id number],65yr up,-PF (FLUZONE HD) 180 mcg/0.5 mL syringe (Patient not taking: Reported on 04/29/2025 .) gabapentin (NEURONTIN) 300 MG capsule Take 1 (one) capsule (300 mg total) by mouth every 8 (eight) hours as needed . (Patient not taking: Reported on 04/29/2025 .) magnesium gluconate (MAGONATE) 27.5 mg magne- sium (500 mg) tablet Take 1 (one) tablet (500 mg total) by mouth daily . (Patient not taking: Reported on 04/29/2025 .) meclizine (ANTIVERT) 12.5 mg tablet Take 25 mg by mouth 2 (two) times a day. 1-2 tablets every 6-12 hours as needed Indications: sensation of spinning or whirling (Patient not taking: Reported on 04/29/2025 .) montelukast (SINGULAIR) 10 mg tablet Take 1 (one) tablet (10 mg total) by mouth every morning . (Patient not taking: Reported on 04/29/2025 .) naloxone (NARCAN) 4 mg/actuation [address] Administer 1 spray into one nostril for known or suspected opioid overdose. If patient worsens or does not respond, may repeat in 2-3 minutes. . (Patient not taking: Reported on 04/29/2025 .) nystatin (MYCOSTATIN) powder Apply topically 2 (two) times a day . (Patient not taking: Reported on 04/29/2025 .) ondansetron (ZOFRAN-ODT) 4 MG disintegrating tablet Dissolve 1 (one) tablet (4 mg total) on top of tongue every 6 (six) hours as needed . (Patient not taking: Reported on 04/29/2025 .) sertraline (ZOLOFT) 50 MG tablet Take 1 (one) tablet (50 mg total) by mouth every morning . (Patient not taking: Reported on 04/29/2025 .) SUMAtriptan (IMITREX) 100 MG tablet Take 1 (one) tablet (100 mg total) by mouth every 2 (two) hours as needed for migraine Max of 200 mg in 24hrs . (Patient not taking: Reported on 04/29/2025 .) traZODone (DESYREL) 100 MG tablet Take 100 mg by mouth nightly. (Patient not taking: Reported on 04/29/2025 .) No current facility-administered medications on file prior to visit. Physical Examination: BP 110/71 (BP Location: Left arm, Patient Position: Sitting, BP Cuff Size: Adult) Pulse 84 Ht 5' 2 Wt 75.3 kg (166 lb) LMP (LMP Unknown) SpO2 91% BMI 30.36 kg/m Physical Exam Vitals reviewed. Constitutional: Appearance: Normal appearance. Cardiovascular: Rate and Rhythm: Normal rate and regular rhythm. Heart sounds: No murmur heard. Neurological: Mental Status: She is alert. Lab Results Component Value Date ALBUMIN 3.9 08/06/2024 ALT 10 08/06/2024 AST 22 08/06/2024 BUN 15 08/14/2024 CALCIUM 9.0 08/14/2024 CL 101 08/14/2024 CHOL 171 03/04/2021 CREATININE 0.46 (L) 08/14/2024 GFRAA >60 04/13/2015 HDL 74 03/04/2021 HCT 34.4 (L) 08/14/2024 HGB 10.8 (L) 08/14/2024 HGBA1C 5.8 (H) 05/31/2023 LDL 93 09/20/2006 MG 1.7 08/14/2024 PHOS 3.8 08/14/2024 PLT 147 (L) 08/14/2024 K 3.4 (L) 08/14/2024 NA 140 08/14/2024 TRIG 60 03/04/2021 TSH 2.14 06/01/2023 WBC 7.18 08/14/2024 Lab Results Component Value Date CHOL 171 03/04/2021 LDLCALC 85 03/04/2021 TRIG 60 03/04/2021 HDL 74 03/04/2021 [1] Social History Tobacco Use Smoking Status Never Smokeless Tobacco Never Tobacco Comments 04/21/21,01/21/25 documented in this encounter [facility] 04-25-2025 Radiology Diagnostic study note [facility] Imaging Services [address] [place] [address] Knee 1 or 2 Views MR#: [id number] Acct: [id number] Name: MATTHEW PEREZ Rep #: [id number] : 1955 70 From: Kelly Garcia MD PCP: HARMONY GEE Status: REG CLI Study:Knee 1 or 2 Views Date of Exam: Exam# [id number] Ordering Dr: Carleen Farr MD EXAM: XR Right Knee, 1 or 2 Views CLINICAL INDICATION: PAIN TECHNIQUE: Frontal and/or lateral views of the right knee. COMPARISON: No relevant prior studies available. FINDINGS: BONES/JOINTS: Total knee replacement. Intact hardware. Anatomic position. Noacute fracture. No dislocation. SOFT TISSUES: Soft tissue swelling. RAD/Knee 1 or 2 Views IMPRESSION: Postoperative changes as above. Reading Location: [id number] CC: HARMONY GEE; Dr. Con Farr MD ~ Squirrel Worker: Signed [facility] 04-25-2025 Radiology Diagnostic study note [facility] Imaging Services [address] [facility] [address] [place], [place] [id number] Knee 1 or 2 Views MR#: [id number] Acct: [id number] Name: MATTHEW PEREZ Rep #: [id number] : 1955 F 70 From: Kelly Garcia MD PCP: HARMONY GEE Status: REG CLI Study:Knee 1 or 2 Views Date of Exam: Exam# [id number] Ordering Dr: Carleen Farr MD EXAM: XR Left Knee, 1 or 2 Views CLINICAL INDICATION: PAIN TECHNIQUE: Frontal and/or lateral views of the left knee. COMPARISON: No relevant prior studies available. FINDINGS: BONES/JOINTS: Severe degenerative changes of the medial compartment of the kneejoint. No acute fracture. No dislocation. SOFT TISSUES: Soft tissue swelling. RAD/Knee 1 or 2 Views IMPRESSION: Degenerative changes as above. Reading Location: [facility] CC: HARMONY GEE; Dr. Con Farr MD ~ Squirrel Worker: Signed [facility] 04-25-2025 Radiology Diagnostic study note [facility] Imaging Services [address] [place], [place] [address] Cerv Spine 2 or 3 Views MR#: [id number] Acct: [id number] Name: MATTHEW PEREZ Rep #: [id number] : 1955 F 70 From: Kelly Garcia MD PCP: HARMONY GEE Status: REG CLI Study:Cerv Spine 2 or 3 Views Date of Exam: 04/25/25 Exam# [id number] Ordering Dr: Carleen Farr MD EXAM: XR Cervical Spine, 2 or 3 Views CLINICAL INDICATION: POSTLAMINECTOMY SYNDROME TECHNIQUE: Frontal and lateral views of the cervical spine. COMPARISON: No relevant prior studies available. FINDINGS: VERTEBRAE: Status post anterior fusion of C4-5 and C7-T1. No definite fracture. Normal alignment. DISC SPACES: See above. SOFT TISSUES: Unremarkable. RAD/Cerv Spine 2 or 3 Views IMPRESSION: Postoperative changes as above. Reading Location: [facility] CC: HARMONY GEE; Dr. Con Farr MD ~ Squirrel Worker: Signed [facility] 04-10-2025 Note I called the patient 's pharmacy, last filled 07/2024 and per 08/14/24 discharge summary amlodipine was stopped. Recommend discuss at future visit. [facility] 03-19-[address] Jimmy story from [facility] for anxiety/depression. Patient provided service in [facility] called to inquire if patient is connected Patient has not reached out to any providers and agreed to close out this referral [facility] 03-12-[address] Jimmy story from [facility] for anxiety/depression. Patient provided service in [facility] called to inquire if patient is connected No answer Mailbox is full [facility] 02-21-2025 Note [facility] called to inqui re if patient received providers. Patient did not receive them and asked provider to send to her Icloud again. Provider e-mailed and patient looked and was received by patient [facility] 02-18-2025 Note Patient wants to kno w can you put a referral in so that she can follow up with ortho. [facility] 02-15-2025 Note Patient Name: [facility] Location: Matthew Perez [address] [place] [address], [address] [facility] [address] Date Of : Date Of Visit: 1955 02/15/2025 MRN# Provider: [id number] Renetta Mckeon PA-C Chief Complaint Patient presents with Hypertension Pt states she checked BP this morning and it was 200 Assessment & Plan 1. Normal exam No follow-ups on file. Medical Decision Making Discussed with patient that blood pressure is completely within normal limits as well as exam. This office note has been dictated. This dictation was generated using Revivio voice recognition software. Please excuse any grammatical or spelling errors that may have occurred using the system. Additional Clinical Comments Discussed over the counter medications for symptomatic management and potential side effects of medications. Educated patient and/or guardian about signs and symptoms that would warrant immediate evaluation in the emergency room. Recommended that they should return to urgent care, make an appointment with their PCP, or go to the emergency room if symptoms persist or get acutely worse. Subjective 69 y.o. female presents with Hypertension (Pt states she checked BP this morning and it was 200) 69-year-old female presents urgent care today because this morning when she checked her blood pressure around 11 AM it was 200 over something. States that the bottom number was high as well. States that she was starting to develop a headache which is why she thought her blood pressure was Review Of Systems Review of Systems Respiratory: Negative for chest tightness and shortness of breath. Cardiovascular: Negative for chest pain. Neurological: Positive for headaches. Medical History Past Medical History: Diagnosis Date Anxiety Arthritis osteo Asthma 08/23/2014 Back pain Cardiomyopathy (HCC) resolved (EF 45% per cath 09/21/2006; EF 55-60% per echo 04/16/2019). CHF (congestive heart failure) (HCC) Depression Diastolic dysfunction mild per echo on 06/08/2019 Edema Fibromyalgia, primary GERD (gastroesophageal reflux disease) patient denies History of echocardiogram Hypertension 04/01/2015 Migraines Obesity AYO (obstructive sleep apnea) cannot tolerate C-Pap Pneumonia x2 , had 2 pneumonia shots Restless legs syndrome Saphenous vein clot superficial LLE Shoulder joint pain Spinal stenosis Varicose veins of both lower extremities Past Surgical History: Procedure Laterality Date ANTERIOR CERVICAL DISCECTOMY 02/25/2009 C5-6, C6-7 AR'BRITTON SHOULD SAD, SLAP, RCR, RESECT DISTAL CLAVICLE, BICEPS TENODESIS Right 11/04/2015 ARTHROPLASTY HIP TOTAL Right 02/27/2018 Procedure: RIGHT TOTAL HIP ARTHROPLASTY; Surgeon: Gabo Sears MD; Location: [facility] Main OR; Service: Orthopedic BLADDER SUSPENSION BRONCHOSCOPY CARDIAC CATHETERIZATION Bilateral 09/21/2006 COLONOSCOPY CV IR INTERVENTIONAL RADIOLOGY N/A 08/22/2023 Procedure: VR IVC Filter Insert; Surgeon: Lukas Beverly DO; Location: [facility] EP LAB; Service: Interventional Radiology CV IR INTERVENTIONAL RADIOLOGY N/A 10/07/2023 Procedure: VR IVC Filter Removal; Surgeon: Roxana Lopez MD; Location: [facility] VIDEO INTERN; Service: Interventional Radiology FOOT SURGERY Right 03/08/2005 Third interdigital neuroma excision, fourth metatarsal osteotomy w/capsulotomy, fifth metatarsal head excision HARDWARE REMOVAL ANTERIOR CERVICAL 07/22/2014 C5, C6-7 HARDWARE REMOVAL LUMBAR 01/02/2009 L5-S1 w/ redo decompression laminectomy HYSTERECTOMY CARLOS MANUEL BSO Bladder suspension KNEE ARTHROSCOPY W/ LASER Left 2014 LAMINECTOMY DECOMP LUMBAR W/FUSION 4 OR MORE LVL N/A 11/08/2017 Procedure: HARDWARE REMOVAL L4-S1, DECOMPRESSION/FUSION L2-L4, PLIF, REINSTRUMENT L2-S1; Surgeon: Alejo Hummel MD; Location: [facility] Main OR; Service: Orthopedic LAMINECTOMY DECOMP THORACIC W/FUSION 4 OR MORE LVL N/A 08/18/2023 Procedure: Decompression Thoracic 12-Lumbar1, [id number] 1 Discectomy, Interbody fusion, fixation Thoracic 10-Lumbar5, CT BUCK, Local Bone, Posteriorlateral Fusion Thoracic 10-Lumbar2, cement augmentation Thoracic 10; Surgeon: Jose Fraga MD; Location: [facility] Main OR; Service: Orthopedic LAMINECTOMY DISC ANTERIOR CERVICAL W/ FUSION SINGLE LEVEL N/A 03/13/2021 Procedure: Anterior cervical discectomy fusion cervical4-5 with plate and allograft; Surgeon: Jose Fraga MD; Location: [facility] Main OR; Service: Orthopedic LUMBAR LAMINECTOMY 10/11/2003 L5-S1 decompression w/interbody fusion bilateral and posterior fusion fixation LUNG BIOPSY Right ROTATOR CUFF REPAIR Left THORACOPLASTY WITH RIB FIXATION Right 08/09/2024 Procedure: RIGHT RIB FIXATION, RIGHT CHEST TUBE PLACEMENT, INTERCOSTAL NERVE BLOCK; Surgeon: Dorinda Cobb MD; Location: [facility] Main OR; Service: General Surgery TONSILLECTOMY TOTAL KNEE ARTHROPLASTY R (more content not included)... [facility] 02-15-2025 History of Presen t illness Narrative Images from the original note were not included. Patient Name: [facility] Urgent [facility] Location: Matthew Perez [address] [place] [address], [address] [facility] [address] Date Of : Date Of Visit: 1955 02/15/2025 MRN# Provider: [id number] Renetta Mckeon PA-C Chief Complaint Patient presents with Hypertension Pt states she checked BP this morning and it was 200 Assessment & Plan 1. Normal exam No follow-ups on file. Medical Decision Making Discussed with patient that blood pressure is completely within normal limits as well as exam. This office note has been dictated. This dictation was generated using Revivio voice recognition software. Please excuse any grammatical or spelling errors that may have occurred using the system. Additional Clinical Comments Discussed over the counter medications for symptomatic management and potential side effects of medications. Educated patient and/or guardian about signs and symptoms that would warrant immediate evaluation in the emergency room. Recommended that they should return to urgent care, make an appointment with their PCP, or go to the emergency room if symptoms persist or get acutely worse. Subjective 69 y.o. female presents with Hypertension (Pt states she checked BP this morning and it was 200) 69-year-old female presents urgent care today because this morning when she checked her blood pressure around 11 AM it was 200 over something. States that the bottom number was high as well. States that she was starting to develop a headache which is why she thought her blood pressure was Review Of Systems Review of Systems Respiratory: Negative for chest tightness and shortness of breath. Cardiovascular: Negative for chest pain. Neurological: Positive for headaches. Medical History Past Medical History: Diagnosis Date Anxiety Arthritis osteo Asthma 08/23/2014 Back pain Cardiomyopathy (HCC) resolved (EF 45% per cath 09/21/2006; EF 55-60% per echo 04/16/2019). CHF (congestive heart failure) (HCC) Depression Diastolic dysfunction mild per echo on 06/08/2019 Edema Fibromyalgia, primary GERD (gastroesophageal reflux disease) patient denies History of echocardiogram Hypertension 04/01/2015 Migraines Obesity AYO (obstructive sleep apnea) cannot tolerate C-Pap Pneumonia x2 , had 2 pneumonia shots Restless legs syndrome Saphenous vein clot superficial LLE Shoulder joint pain Spinal stenosis Varicose veins of both lower extremities Past Surgical History: Procedure Laterality Date ANTERIOR CERVICAL DISCECTOMY 02/25/2009 C5-6, C6-7 AR'SCOPY SHOULD SAD, SLAP, RCR, RESECT DISTAL CLAVICLE, BICEPS TENODESIS Right 11/04/2015 ARTHROPLASTY HIP TOTAL Right 02/27/2018 Procedure: RIGHT TOTAL HIP ARTHROPLASTY; Surgeon: Gabo Sears MD; Location: [facility] Main OR; Service: Orthopedic BLADDER SUSPENSION BRONCHOSCOPY CARDIAC CATHETERIZATION Bilateral 09/21/2006 COLONOSCOPY CV IR INTERVENTIONAL RADIOLOGY N/A 08/22/2023 Procedure: VR IVC Filter Insert; Surgeon: Lukas Beverly DO; Location: [facility] EP LAB; Service: Interventional Radiology CV IR INTERVENTIONAL RADIOLOGY N/A 10/07/2023 Procedure: VR IVC Filter Removal; Surgeon: Roxana Lopez MD; Location: [facility] VIDEO INTERN; Service: Interventional Radiology FOOT SURGERY Right 03/08/2005 Third interdigital neuroma excision, fourth metatarsal osteotomy w/capsulotomy, fifth metatarsal head excision HARDWARE REMOVAL ANTERIOR CERVICAL 07/22/2014 C5, C6-7 HARDWARE REMOVAL LUMBAR 01/02/2009 L5-S1 w/ redo decompression laminectomy HYSTERECTOMY CARLOS MANUEL BSO Bladder suspension KNEE ARTHROSCOPY W/ LASER Left 2013 LAMINECTOMY DECOMP LUMBAR W/FUSION 4 OR MORE LVL N/A 11/08/2017 Procedure: HARDWARE REMOVAL L4-S1, DECOMPRESSION/FUSION L2-L4, PLIF, REINSTRUMENT L2-S1; Surgeon: Alejo Hummel MD; Location: [facility] Main OR; Service: Orthopedic LAMINECTOMY DECOMP THORACIC W/FUSION 4 OR MORE LVL N/A 08/18/2023 Procedure: Decompression Thoracic 12-Lumbar1, [id number] 1 Discectomy, Interbody fusion, fixation Thoracic 10-Lumbar5, CT BUCK, Local Bone, Posteriorlateral Fusion Thoracic 10-Lumbar2, cement augmentation Thoracic 10; Surgeon: Jose Fraga MD; Location: [facility] Main OR; Service: Orthopedic LAMINECTOMY DISC ANTERIOR CERVICAL W/ FUSION SINGLE LEVEL N/A 03/13/2021 Procedure: Anterior cervical discectomy fusion cervical4-5 with plate and allograft; Surgeon: Jose Fraga MD; Location: [facility] Main OR; Service: Orthopedic LUMBAR LAMINECTOMY 10/11/2003 L5-S1 decompression w/interbody fusion bilateral and posterior fusion fixation LUNG BIOPSY Right ROTATOR CUFF REPAIR Left THORACOPLASTY WITH RIB FIXATION Right 08/09/2024 Procedure: RIGHT RIB FIXATION, RIGHT CHEST TUBE PLACEMENT, INTERCOSTAL NERVE BLOCK; Surgeon: Dorinda Cobb MD; Location: [facility] Main OR; Service: General Surgery TONSILLECTOMY TOTAL KNEE ARTHROPLASTY Right WISDOM TOOTH EXTRACTION Problem List[1] Social History Social History[2] Family History Family History Problem Relation Age of Onset Cancer Mother Breast cancer Mother ; cancer went to brain, liver and lungs Brain cancer Mother Liver cancer Mother Lung cancer Mother Hypertension Father Heart disease Father Diabetes Father Depression Father Heart attack Father Diabetes type II Father Hypertension Sister Cancer Sister Diabetes Sister Diabetes type II Sister No Known Problems Brother Hypertension Other siblings Diabetes Other siblings Surgical complications Neg Hx Anesthesia problems Neg Hx Clotting disorder Neg Hx Deep vein thrombosis Neg Hx Pulmonary embolism Neg Hx Objective Physical Exam BP 118/70 Pulse 93 Temp 99 F (37.2 C) Resp 18 Wt 75.8 kg (167 lb) LMP (LMP Unknown) SpO2 94% BMI 30.54 kg/m Vision/Hearing Exam:No results found. Physical Exam Vitals and nursing note reviewed. Constitutional: General: She is not in acute distress. Appearance: Normal appearance. She is well-developed. She is not ill-appearing, toxic-appearing or diaphoretic. HENT: Head: Normocephalic and atraumatic. Mouth/Throat: Mouth: Mucous membranes are not pale and not dry. Cardiovascular: Rate and Rhythm: Normal rate and regular rhythm. Heart sounds: Normal heart sounds. Pulmonary: Effort: Pulmonary effort is normal. Breath sounds: Normal breath sounds. Neurological: Mental Status: She is alert. Procedure Notes Procedures Results No results found for this or any previous visit (from the past week). No orders to display Orders Placed This Visit No orders of the defined types were placed in this encounter. Medication List At End Of Visit Current Medications[3] There are no Patient Instructions on file for this visit. [1] Patient Active Problem List Diagnosis AYO (obstructive sleep apnea) Asthma Balance disorder Hypertension Protrusion of cervical intervertebral disc C4-5 with stenosis Brachial neuritis Lumbar pain Depression Pre-diabetes Dysphagia Cataract Migraine Bronchogenic cancer (HCC) Restless legs syndrome Tendinopathy of left rotator cuff Varicose vein History of cardiomyopathy Iron deficiency Obesity Difficulty walking Encounter for long-term use of opiate analgesic Varicose veins of lower extremities with complications Left hip pain Status post lumbar spinal fusion T10-L2 08/18/23 Lumbar stenosis L1-2 with neurogenic claudication Spinal stenosis DDD (degenerative disc disease), lumbar Hip osteoarthritis Acute blood loss as cause of postoperative anemia S/P total hip arthroplasty Osteoarthritis of multiple joints Vertigo History of falling Rectocele Protrusion of cervical intervertebral disc C4-5 with stenosis Diastolic dysfunction Status post cervical spinal fusion C4-T1 Inguinal pain Urge urinary incontinence Cardiomyopathy (HCC) Acute low back pain Thoracic disc herniation T12-L1 Displacement of thoracic intervertebral disc without myelopathy Pseudoclaudication syndrome S/P lumbar fusion Back pain at L4-L5 level Ambulatory dysfunction Abnormality of gait Debility Pleuritic chest pain Multiple fractures of ribs, right side, initial encounter for closed fracture Acute pain due to trauma [2] Social History Tobacco Use Smoking status: Never Smokeless tobacco: Never Tobacco comments: 04/21/21,01/21/25 Vaping Use Vaping status: Never Used Substance Use Topics Alcohol use: Not Currently Comment: sometimes 10 a year; rare 01/21/25 Drug use: No Comment: tried all forms of medical marijuana without positive results in last 6 weeks, 01/21/25 [3] Current Outpatient Medications Medication Sig Dispense Refill albuterol (Ventolin HFA) 90 mcg/actuation inhaler Inhale 1 (one) puff every 6 (six) hours as needed for wheezing . 1 Inhaler 4 rOPINIRole (REQUIP) 2 MG tablet Take 3 mg by mouth 3 (three) times a day as needed for restless legs Reasons: restless legs syndrome, an extreme discomfort in the calf muscles when sitting or lying down. AMLODIPINE BESYLATE, BULK, MISC Take 10 mg by mouth daily with breakfast. (Patient not taking: Reported on 01/21/2025 .) aspirin 81 MG EC tablet Take 1 (one) tablet (81 mg total) by mouth daily . (Patient not taking: Reported on 01/21/2025 .) atorvastatin (LIPITOR) 40 MG tablet Take 1 (one) tablet (40 mg total) by mouth daily . beclomethasone dipropionate (Qvar RediHaler) 40 mcg/actuation HFAB Inhale 2 puffs 2 (two) times a day. caffeine 200 mg Take 1 (one) tablet (200 mg total) by mouth every 7 days . clonazePAM (KLONOPIN) 1 MG tablet Take 1 (one) tablet (1 mg total) by mouth 2 (two) times a day as needed for anxiety . (Patient not taking: Reported on 01/21/2025 .) diphenhydrAMINE (BENADRYL) 25 mg capsule Take 1 (one) capsule to 2 (two) capsules (25-50 mg total) by mouth at bedtime . DULoxetine (CYMBALTA) 30 MG capsule Take 30 mg by mouth daily. (Patient not taking: Reported on 01/21/2025 .) flu vacc [id number],65yr up,-PF (FLUZONE HD) 180 mcg/0.5 mL syringe (Patient not taking: Reported on 01/21/2025 .) 0.5 mL 0 furosemide (LASIX) 40 MG tablet Take 20 mg by mouth daily . gabapentin (NEURONTIN) 300 MG capsule Take 1 (one) capsule (300 mg total) by mouth every 8 (eight) hours as needed . (Patient not taking: Reported on 01/21/2025 .) 30 capsule 0 lisinopril (PRINIVIL,ZESTRIL) 20 MG tablet Take 1 (one) tablet (20 mg total) by mouth every morning Reasons: high blood pressure. magnesium gluconate (MAGONATE) 27.5 mg magne- sium (500 mg) tablet Take 1 (one) tablet (500 mg total) by mouth daily . (Patient not taking: Reported on 01/21/2025 .) meclizine (ANTIVERT) 12.5 mg tablet Take 25 mg by mouth 2 (two) times a day. 1-2 tablets every 6-12 hours as needed Indications: sensation of spinning or whirling (Patient not taking: Reported on 01/21/2025 .) montelukast (SINGULAIR) 10 mg tablet Take 1 (one) tablet (10 mg total) by mouth every morning . naloxone (NARCAN) 4 mg/actuation [address] Administer 1 spray into one nostril for known or suspected opioid overdose. If patient worsens or does not respond, may repeat in 2-3 minutes. . (Patient not taking: Reported on 01/21/2025 .) 2 each 0 nystatin (MYCOSTATIN) powder Apply topically 2 (two) times a day . (Patient not taking: Reported on 01/21/2025 .) 15 g 0 ondansetron (ZOFRAN-ODT) 4 MG disintegrating tablet Dissolve 1 (one) tablet (4 mg total) on top of tongue every 6 (six) hours as needed . (Patient not taking: Reported on 01/21/2025 .) 20 tablet 0 oxyCODONE-acetaminophen (PERCOCET) 10-325 mg per tablet Take 2 tablets by mouth every 8 (eight) hours as needed for pain . sertraline (ZOLOFT) 50 MG tablet Take 1 (one) tablet (50 mg total) by mouth every morning . (Patient not taking: Reported on 01/21/2025 .) SUMAtriptan (IMITREX) 100 MG tablet Take 1 (one) tablet (100 mg total) by mouth every 2 (two) hours as needed for migraine Max of 200 mg in 24hrs . (Patient not taking: Reported on 01/21/2025 .) traZODone (DESYREL) 100 MG tablet Take 100 mg by mouth nightly. (Patient not taking: Reported on 01/21/2025 .) No current facility-administered medications for this visit. documented in this encounter [facility] 02-11-2025 Note [facility] called to inqui re if patient has reached out to providers.Patient reports she has not because last time years ago patient stated she tried along time ago [place] all they did was talk about the president and patient is concerned about the president today. [facility] did what he could to reduce patient concerns about ht president. Patient was tearful at time during phone call. Patient asked about receiving service here in [place] say ever other week. [facility] attempted to encourage patient to reach out to the providers in [place] for therapy that is more acceptable other than 100 miles away . [facility] will follow up with patient week of 02/22/2025 [facility] 02-04-2025 Note Patient looking for resources in [facility]. Patient has received them is reviewing them [facility] called to inquire what other support [facility] can provide. No answer mailbox full [facility] 01-21-2025 Note CONSULT NOTE Patient Name: Matthew Perez Admit Date: MR #: [id number] : 1955 Physicians: Harmony Gee MD (Family); Harmony Gee MD (Referring) Chief Complaint/Reason for Visit: AYO History of Present Illness: Matthew Perez is a 69 y.o. y/o female presenting from home with c/o excessive daytime sleepiness. Ms. Perez, 69, with a past medical history significant for obstructive sleep apnea, was seen today regarding excessive daytime sleepiness, sleep paralysis. She was last seen in 2020, decided not to have CPAP. Otherwise, lately a few times a month. She has a sleep paralysis very frightening she claims, and also has daytime sleepiness. She scores 15/24 on the [place] Sleepiness Scale, scored 4/8 on STOP-Bang questionnaire. She sleeps anywhere between 12-8. Last night she went to bed around 12 and sleep happened around 4:00 She claims. Slept for 2 hours and then she was unable to sleep. Otherwise occasionally she has a sleep paralysis, daytime sleepiness, fatigue, disturbed sleep. She was unable to use CPAP in the past and would like to stay away from CPAP she claims. Denies sleepiness behind the wheels, near [facility]. Vitals stable. No distress, and BMI is 31. Prior sleep study discussed. IMPRESSION Obstructive sleep apnea. Role of continuous positive airway pressure discussed. Role of Inspire discussed. Need for treatment discussed in view of moderate sleep apnea as well as hypoxemia to minimize the risk of stroke, heart failure, atrial fibrillation, pulmonary hypertension. I will follow up on home sleep testing. Otherwise, sleep paralysis sleepwalking on mostly from the inadequate sleep hygiene related. Sleep hygiene discussed, and most likely after the treatment for sleep apnea this will subsides. Otherwise safety measures discussed regarding sleep walking. We will see her back with the home sleep testing. Thank you, Dr. Gee, for allowing me to participate in the care of Ms. Perez. History: Past Medical History: Diagnosis Date Anxiety Arthritis osteo Asthma 08/23/2014 Back pain Cardiomyopathy (HCC) resolved (EF 45% per cath 09/21/2006; EF 55-60% per echo 04/16/2019). Depression Diastolic dysfunction mild per echo on 06/08/2019 Edema Fibromyalgia, primary GERD (gastroesophageal reflux disease) patient denies History of echocardiogram Hypertension 04/01/2015 Migraines Obesity AYO (obstructive sleep apnea) cannot tolerate C-Pap Pneumonia x2 , had 2 pneumonia shots Restless legs syndrome Saphenous vein clot superficial LLE Shoulder joint pain Spinal stenosis Varicose veins of both lower extremities Past Surgical History: Procedure Laterality Date ANTERIOR CERVICAL DISCECTOMY 02/25/2009 C5-6, C6-7 AR'SCOPY SHOULD SAD, SLAP, RCR, RESECT DISTAL CLAVICLE, BICEPS TENODESIS Right 11/04/2015 ARTHROPLASTY HIP TOTAL Right 02/27/2018 Procedure: RIGHT TOTAL HIP ARTHROPLASTY; Surgeon: Gabo Sears MD; Location: [facility] Main OR; Service: Orthopedic BLADDER SUSPENSION BRONCHOSCOPY CARDIAC CATHETERIZATION Bilateral 09/21/2006 COLONOSCOPY CV IR INTERVENTIONAL RADIOLOGY N/A 08/22/2023 Procedure: VR IVC Filter Insert; Surgeon: Lukas Beverly DO; Location: [facility] EP LAB; Service: Interventional Radiology CV IR INTERVENTIONAL RADIOLOGY N/A 10/07/2023 Procedure: VR IVC Filter Removal; Surgeon: Roxana Lopez MD; Location: [facility] VIDEO INTERN; Service: Interventional Radiology FOOT SURGERY Right 03/08/2005 Third interdigital neuroma excision, fourth metatarsal osteotomy w/capsulotomy, fifth metatarsal head excision HARDWARE REMOVAL ANTERIOR CERVICAL 07/22/2014 C5, C6-7 HARDWARE REMOVAL LUMBAR 01/02/2009 L5-S1 w/ redo decompression laminectomy HYSTERECTOMY CARLOS MANUEL BSO Bladder suspension KNEE ARTHROSCOPY W/ LASER Left 2013 LAMINECTOMY DECOMP LUMBAR W/FUSION 4 OR MORE LVL N/A 11/08/2017 Procedure: HARDWARE REMOVAL L4-S1, DECOMPRESSION/FUSION L2-L4, PLIF, REINSTRUMENT L2-S1; Surgeon: Alejo Hummel MD; Location: [facility] Main OR; Service: Orthopedic LAMINECTOMY DECOMP THORACIC W/FUSION 4 OR MORE LVL N/A 08/18/2023 Procedure: Decompression Thoracic 12-Lumbar1, [id number] 1 Discectomy, Interbody fusion, fixation Thoracic 10-Lumbar5, CT BUCK, Local Bone, Posteriorlateral Fusion Thoracic 10-Lumbar2, cement augmentation Thoracic 10; Surgeon: Jose Fraga MD; Location: [facility] Main OR; Service: Orthopedic LAMINECTOMY DISC ANTERIOR CERVICAL W/ FUSION SINGLE LEVEL N/A 03/13/2021 Procedure: Anterior cervical discectomy fusion cervical4-5 with plate and allograft; Surgeon: Jose Fraga MD; Location: [facility] Main OR; Service: Orthopedic LUMBAR LAMINECTOMY 10/11/2003 L5-S1 decompression w/interbody fusion bilateral and posterior fusion fixation LUNG BIOPSY Right ROTATOR CUFF REPAIR Left THORACOPLASTY WITH RIB FIXATION Right 08/09/2024 Procedure: RIGHT RIB FIXATION (more content not included)... [facility] 01-21-2025 Note Patient looking for resources in [facility]. Patient has received them is reviewing them [facility] 01-15-2025 Note No answer left yovani bhandari to inquire if patient received providers in [facility] 01-11-2025 Note Patient returned [facility] phone call reporting she did not receive providers through e-mail. Automotive Parts Manager eitan on phone message, stated e-mail not mail for patient to receive providers. [facility] e-mail mailed new providers to patient in other note copy of providers [facility] 01-11-2025 Note Copy of e-mail sent to [email or web address] or [email or web address] Department of Psychiatry [facility] [address] [place], [place] [address] My name is Paulino Hamilton and I???m a Behavioral Health Civil Engineer In Training. If you have, any questions please feel free to call . Here is a list of providers that are in your area. Care Beyond Barriers [facility] is a non-profit community health center. We are dedicated to improving the total health of our patients and community by removing barriers to wellness. We accept all forms of insurance and believe our patients have a right to quality care that meets their needs, regardless of their ability to pay. [facility] also empowers patients with help to address barriers such as mental illness, lack of transportation, and substance abuse. We are proud to provide behavioral health, community health worker, dental, medical, medication-assisted treatment, DOCK SUPERINTENDENT, pediatric, and podiatry services across multiple campuses in [facility]. [address] [place], [place] [phone] Hours Tuesday: 8:00 am-6:00 pm Tuesday: 8:00 am-6:00 pm Tuesday: 8:00 am-6:00 pm : 8:00 am-6:00 pm Tuesday: 8:00 am-3:00 pm [facility] provides mental health services and treatment for substance use disorder. How does behavioral health relate to physical health? Behavioral health and physical health are closely connected. Our patients receive high-quality primary medical care with behavioral health services to help them cope with issues such as stress, depression, substance use disorders, and problems resulting from living with a chronic physical health condition. Including behavioral health care in a primary medical care setting also leads to better outcomes for patients. Our integrated approach includes a team of providers, physicians, nurse practitioners, behavioral health clinicians, community health workers, and other health care providers. What are our services? Anger and stress management Counseling for adults and children 6 and older Crisis intervention Diagnosis and treatment of emotional and mental disorders Individual, family, and group counseling Life Coaching Friendly Reminder: Beginning 1/1/25, we will be asking for updated insurance and consent paperwork. We thank you for your understanding and cooperation! Why choose us: In today???s mental health world, so many places claim they do great things, but in reality you???ll find lots of providers calling many things counseling or therapy. We???re different. Our approach is based on addressing unhealthy behaviors and thoughts, the cores of depression, anxiety, panic, stress, and trauma. Regardless of when you reach out for help, you want acceptance and compassionate therapy - grounded in proven theory and science. You want help and we???re here for you. At [facility] we focus on the evidence-based practices of cognitive-behavioral therapy (CBT), dialectical behavior therapy (DBT) and acceptance and commitment therapy (ACT). Our staff is consistently learning and evolving to incorporate the latest science and techniques. Our leadership, including Dr. Paulino Selby, are sought after experts in therapeutic psychology and mental health. Our people and our approach make us different - we take proven approaches and adapt it in individualized care plans to fit patient needs. We focus on what???s important to you, to help you enjoy life and feel your best. PTSD Trauma-informed Addictions Substance Abuse ADHD ADHD Assessments for Primary Care Referrals Autism Spectrum Autism Spectrum Assessments Adjustment Problems Obsessive Compulsive Disorder Relationship Problems Behavioral Problems Management of Bipolar Coping Skills Adjustment to Divorce Management of Eating Problems Academic Stress Loss/Grief Self-Harm [facility]-based Counseling Post- Depression Anger ? [place] [facility] ??? [address] [place] [address] P: [phone] F: [phone] ? [facility] 01-07-2025 Note [facility] sent providers through email. Called to inquire if patient has received them , no answer left a message [facility] 01-03-2025 Note Patient was provided resources in [facility] . [facility] could not paste providers into Epic [facility] 01-01-2025 Note Encounter Type: Init ial Date/ Start Time 01/01/2025 Location: on phone Referral from Dr. Gee from [facility] for anxiety/depression. Patient has challenges at home family member consumes a lot of alcohol. Intervention Provided: [facility] provided patient with positive undue regard. [facility] explained about the BHCM program. [facility]CM did not go too in-depth as not to possible cause tension in the home. Patient needs local services as to patient [place] [address] [place]. Response: Patient appreciative of support and information [facility] provided. Patient agreeable to services, looking for provider in/near Plan: [facility] will support patient as needed. [facility] will follow up week of 10 January 2025 [facility] 12-31-2024 Note Subjective Patient ID: Matthew Perez is a 69 y.o. female who presents for Follow-up (Pt c/o groin pain when laying down x 1 month . Pt also has numbness in her left arm and pain, she does have appt schedule with neurology but its booked out. ). HPI I'm worried I can't lay down at night, gets bad pain in her L groin. This started 6 mo ago and increasingly worse. L arm especailly hand will go numbn and it is happenin faster and extending up to her upper arm. Prior imaging showed significant cervical DJD. COPD: using albuterol about every other day. No recent PFTs. Will get PFTs. Cough and SOB gets triggered by 's smoking. AYO: seeing sleep specialist soon. HTN: The patient denies chest pain, shortness of breath, orthopnea, edema, weight gain and palpitations. The patient is tolerating medications well. Chronic pain: has pain pump that helps her back. Placed over a year ago. [place] Chronic knee pain: had R knee surgery that didn't help. Seeing ortho. Doesn't think she wants to pursue surgery on L knee due to lack of L knee. Pain meds percocet 10/325 2 3 times a day which blunts the pain and allows her to function. She can't do everything she wants to do but she is able to most things when the pain is controlled. If no pain meds she is debiltated and in tears the pain is so bad. No mental fogginess. Depression: things are not good at the house due to being alcohogolic and smokes, he gets upset if she gets upset if she complains about the smoking. He drinks constantly. House is torn up due to getting new tomi. Patient became tearful during visit when related family stressors. Offered counseling/behavioral health. She agreed. Patient previously on SSRI. Will consider restarting after evaluation by behavioral health. Review of Systems Constitutional: Positive for fever. Negative for chills and fatigue. Respiratory: Positive for shortness of breath. Negative for cough and wheezing. Cardiovascular: Negative for chest pain, palpitations and leg swelling. Gastrointestinal: Negative for abdominal pain, constipation, diarrhea, nausea and vomiting. Neurological: Negative for headaches. Past Surgical History: Procedure Laterality Date BACK SURGERY x 3 BACK SURGERY 08/18/2023 Decompression Thoracic 12-Lumbar1, [id number] 1 Discectomy, Interbody fusion, fixation Thoracic 10-Lumbar5, CT BUCK, Local Bone, Posteriorlateral Fusion Thoracic 10-Lumbar2, cement augmentation Thoracic 10 CERVICAL FUSION 03/13/2021 anterior cervical discectomy fusion C4-5 with plate and allograft CERVICAL FUSION 07/2014 C5,6,7 T1 07/2014 CERVICAL SPINE SURGERY 01/2009 C5,6,7, CHEST TUBE INSERTION Right 08/09/[address] GUIDED PERCUTANEOUS BIOPSY MEDIASTINUM 11/02/2011 CT GUIDED PERCUTANEOUS BIOPSY MEDIASTINUM FOOT SURGERY HYSTERECTOMY IR ABLATION VEIN Left 08/20/2015 L saphenous vein LUMBAR FUSION 11/08/2017 posterolateral fusion L2-3, L3-4, lumbar laiminectomy LUNG BIOPSY 12/2011 at [facility], negative for malignancy RIB FRACTURE SURGERY Right 08/09/2024 traumatic rib fracture after fall, failed conservative management. SHOULDER SURGERY TOTAL HIP ARTHROPLASTY TOTAL HIP ARTHROPLASTY Right 02/27/2018 Dr. Sears TOTAL KNEE ARTHROPLASTY Right 2014 Family History Problem Relation Name Age of Onset Depression Mother ag 63 Diabetes Mother Hypertension Mother Heart disease Mother Cancer Father age 69 Lung cancer Sister Patient Active Problem List Diagnosis Date Noted Severe recurrent major depression without psychotic features ([facility]) 03/28/2024 Chronic diastolic congestive heart failure ([facility]) 12/29/2023 History of pulmonary embolism 12/29/2023 Simple chronic bronchitis ([facility]) 12/28/2023 Type 2 diabetes mellitus, without long-term current use of insulin ([facility]) 12/14/2023 Type 2 diabetes mellitus with polyneuropathy ([facility]) 12/14/2023 Class 1 obesity with body mass index (BMI) of 32.0 to 32.9 in adult 06/06/2023 Intermittent claudication 04/22/2023 Diastolic dysfunction 07/19/2022 Rotator cuff syndrome 06/30/2022 Pneumonia 06/30/2022 Urge urinary incontinence 12/23/2021 Inguinal pain 05/18/2021 Chronic obstructive lung disease (CMS/HCC) 03/29/2021 Memory impairment 09/08/2020 Chronic pain syndrome 09/02/2020 Vaginal enterocele 09/01/2020 Vertigo 01/10/2020 Presbycusis of both ears 12/18/2019 Tinnitus aurium, bilateral 12/18/2019 History of falling 07/27/2019 Chest pain 04/15/2019 Hypokalemia 04/15/2019 Generalized anxiety disorder 12/29/2018 Osteoarthritis of knee 04/10/2018 S/P total hip arthroplasty 03/13/2018 DDD (degenerative disc disease), lumbar 11/08/2017 Status post lumbar spinal fusion 12/29/2016 Encounter for long-term use of opiate analgesic 07/01/2016 Difficulty walking 06/22/2016 Balance disorder 04/16/2015 Hoarseness 09/09/20 (more content not included)... [facility] 12-31-2024 Note Multifactorial inclu ding DJD of spine, knees etc. On high dose opiate and has pain pump. No significant side effects. She was advised to use laxative is she does develop constipation. Has narcan at home due to risk of accidental overdose. [facility] 12-31-2024 Note On albuterol using e very other day. Check PFTs for severity. Consider adding LAMA/LABA. Orders: Pulmonary function testing Spirometry; Body Box (lung volumes, airway resistance, and SVC), DLCO; Future [facility] 12-31-2024 Note Compensated, has not had an echo for a while, will order echo to check EF/status. Orders: Transthoracic Echo (TTE) Complete; Future CBC and differential; Future Comprehensive metabolic panel; Future Magnesium; Future Phosphorus; Future Lipid panel; Future Lipid panel Phosphorus Magnesium Comprehensive metabolic panel CBC and differential Transthoracic Echo (TTE) Complete [facility] 12-31-2024 Note BP not at goal, advi sed to get home BP cuff so we can check home readings. Patient emotionally upset during visit which may explain the higher readings. Continue current medications (lisinopril) Orders: CBC and differential; Future Comprehensive metabolic panel; Future Magnesium; Future Phosphorus; Future Lipid panel; Future Lipid panel Phosphorus Magnesium Comprehensive metabolic panel CBC and differential [facility] 12-31-2024 Note Significant pain at times. Patient to follow up with ortho. [facility] 12-31-2024 Note Please let the patie nt know that her cholesterol is elevated and given her age and other medical diagnosis, I recommend she start a statin (lipitor 40mg daily). I will send this script in. [facility] 08-14-2024 Note DISCHARGE SUMMARY Patient: Matthew Perez Date of : 1955 Site: [facility] Family Provider: Harmony Gee MD Admit Date: 08/06/2024 Discharge Date/Time: 08/14/24 Disposition: home with [facility] Clinical Summary Hospital Course: Matthew Perez 69 y.o. female with a past medical history of Asthma, HTN, Depression, Migraines, Arthritis, Varicose veins of both lower extremities, Obesity, Fibromyalgia, Restless Leg Syndrome, GERD, Spinal stenosis, Anxiety, AYO, that presented to [facility] from [facility] on 08/06/24 s/p Fall with a Chief Complaint of right rib pain. 08/05/2024 the patient was reportedly out raking her leaves when she was dizzy and she fell hitting her right side. Patient did not hit head, and did not have LOC. AC/AP use: denies use of AC/AP meds. Tx from [facility] ED due to imaging revealed Right 4-8 rib fractures, and right traumatic hemopneumothorax. Patient admitted to Trauma Service. Medicine consulted. Rpt CXR with continued pneumothorax. AM CXR was repeated that did show a slightly worsened PTX. Tried conservative management and pain control first, however patient failed non-operative management and is now s/p right rib fixation and R chest tube placement on 08/09. All chest tubes now removed. Discharge Diagnoses: - Rib Fx - right anterolateral 4-8 ribs, Likely NOM. Discussed rib plating with patient that she has 2 mildly displaced fractures, trials non-op management. S/p R rib plating and CT placement 08/09. CT removed 08/10 w/ normal PPCXR. O2 goal > 92%, pulmonary hygiene, pulling 1000 on IS, rib fractures secondary to osteopenia that alone not caused by trauma. - Traumatic Right Hemopneumothorax - Right apical PTX and right anterior 1.5 cm PTX with small right GUERO, 6hr follow up CXR showed 1.6 cm PTX. AM CXR: PTX decreased to 1.7 from 1.8 yesterday. O2 goal > 92%, pulmonary hygiene. Resolved on CXR, continue to monitor. - Dizziness prior to fall - Medicine consulted for work-up, appreciate recs. Hx of dizziness/vertigo 3 years ago. - Abnormal CT Scan Thoracic spine - mild compression fx of T7 and T8 SEP which are unchanged since prior examination. mild compression fx T9 inferior endplate which is stable and also changes of vertebroplasty at the T10 level. No evidence of acute fx throughout the thoracic spine. There is a fracture through the base of the endplate osteophytes at the inferior T7 level which is new since prior examination but have a chronic appearance. NTTP on exam, no further work up or consults indicated. Physical Exam General: Patient not in distress Neuro: GCS 15, no focal neurological deficits Head: Normocephalic, facial bones are nontender Eyes: EOMs intact, gross vision intact ENT: Nares are clear, moist mucous membranes, trachea midline Chest: Symmetrical expansion, chest wall is mildly tender on right side, no palpable crepitus CV: HDS Pulm: non-labored breathing on room air. GI: Abd soft, non-distended, nontender, no peritoneal signs Pelvis: Pelvis is stable & nontender : Deferred Spine: No c-collar , C-spine is nontender, T-spine is nontender, L/S-spine are nontender, no step-offs or deformities noted Ext/MSK: Extremities are non-tender, no obvious deformities, no joint edema, CHERYLE x4, distal neurovascular intact, sensation intact Skin: Skin warm, dry and grossly intact, no obvious rashes or lesions noted Wounds: none noted Surgeries: 08/09/24 RIGHT RIB FIXATION, POSSIBLE THORACOTOMY, RIGHT CHEST TUBE PLACEMENT, INTERCOSTAL NERVE BLOCK Consults: Procedures Hospitalize Patient To : Inpatient consult to Care Management Inpatient consult to Hospitalist Inpatient consult to Ancillary Pain Team Inpatient consult to Care Management Inpatient consult to Care Management Inpatient consult to [facility] Allergies: Duloxetine, Nsaids (non-steroidal anti-inflammatory drug), Ibuprofen, Lyrica [pregabalin], and Metformin Discharge Diet: regular Condition: Fair Discharge Medications: Discharge Medications Some of the medications listed here do not show instructions, such as how often to take the medication. Ask your doctor or nurse how to use these medications. Specifically ask about this and similar medications: flu vacc [id number],65yr up,-PF (FLUZONE HD) 180 mcg/0.5 mL syringe New Medications Details acetaminophen 325 MG tablet Commonly known as: TYLENOL Take 3 (three) tablets (975 mg total) by mouth every 6 (six) hours for 10 days . Quantity: 30 tablet flu vacc [id number](65yr up)-PF 180 mcg/0.5 mL syringe Commonly known as: FLUZONE HD Quantity: 0.5 mL gabapentin 300 MG capsule Commonly known as: NEURONTIN Take 1 (one) capsule (300 mg total) by mouth ever (more content not included)... [facility] 08-14-2024 Note [facility]elle Note 08/14/2024 Matthew Perez 1955 [id number] Assessment/Plan: Matthew Perez is a 69 y.o. female with a PMHx of HTN, HFpEF, prior spinal surgeries and chronic pain. She presented to [place] ED 08/05/2024 for fall from standing, found to have fractured right ribs 4-8, small pneumothorax. Transferred to [facility] 08/06/2024 for trauma evaluation. Underwent rib fixation 08/09/24. Hospital course complicated by uncontrolled pain and weakness. Multiple Right Rib fractures: Admit imaging with multiple acute nondisplaced anterior/anterolateral fractures of right ribs 4-8. Underwent rib fixation, chest tube placement and intercostal nerve block with Dr. Cobb (trauma surgery) 08/09/24. CT discontinued 08/10/24 per trauma without PTX on post-pull CXR Traumatic Right Hemopneumothorax: CT chest 08/06/2024 with small acute right non-dependent anterior pneumothorax. S/p operative intervention as discussed. CXR 08/11/24 with R effusion, IV lasix until 08/13/24. Resumed home oral Lasix. Acute Hypoxic Respiratory Insufficiency- Resolved: required up to 2L NC postoperatively. Encouraged IS, wean supplemental oxygen as able. S/p 3 days of IV diuresis. On room air since 08/13/24. Dizziness: Noted in ED report, but patient denied. Did have dizziness/vertigo episodes 3 years [employer], denied recurrence. EKG 08/06/2024 with NSR, nonischemic. Troponin <7. Monitor on telemetry. Recommend avoiding home sleep aid/caffeine stimulants; judicious opiates/Klonopin use - consider weaning off chronic benzo as outpatient. OVS negative 08/10/24. Acute Traumatic Pain on Chronic pain syndrome: per history. In setting of multiple spinal surgeries as below. On chronic oxycodone 20mg TID, also with morphine pump with Dr. Farr (pain management). Pain management following, ketamine gtt course completed 08/12/24. Weaned to home narcotic regimen by 08/14/24. Fall: Hx of frequent falls. Fell from standing due to dizziness while raking leaves, OVS 08/10/24 negative. Injuries as discussed. PT/OT. Abnormal CT thoracic spine: admit imaging with several old compression fractures of thoracic spine, no evidence of acute fractures. Recommend following up outpatient. Hx lumbar posterior fusion with lumbar spinal stimulator: 07/[address] Landry ([facility]th[facility]). Also with prior ACDF C7-T1. Continue OP follow up. Chronic HFpEF: TTE 06/28/23 with LVEF 67%, grade 1 diastolic dysfunction. S/p spot IV Lasix due to RLL effusion on CXR 08/11/24. Resumed home oral Lasix 08/14/24. Hypertension: Continued lisinopril, discontinued amlodipine due to low BP, controlled without it. Lasix continued. Asthma: per history. On home Qvar, Singulair, albuterol as needed. Continue analogous home inhalers. Anxiety: with benzo dependence. Home klonopin resumed at reduced dose, recommend attempting to wean completely off as outpatient given possibly contributing to falls. History of PE s/p IVC: Recent IVC placement. Denied taking Eliquis. Would continue at least ASA when able. Recommend OP follow up regarding AC/IVC retrieval. Code status: Full- unverified DVT Prophylaxis: Lovenox Thank you for allowing us to participate in the care of your patient. For any questions, please call the number of the covering hospitalist listed under the treatment team in care connect. Current living situation: home Expected Disposition: Home with [facility] Estimated discharge date: 08/14/24 Subjective: Patient seen at bedside sitting up comfortably in chair. Endorses feels like her legs are swollen, discussing continuing Lasix at home, no pitting edema on exam. She unsure of what her Lasix dose was, advised that she should double check discharge paperwork with her home medication to ensure she is taking enough. Encouraged elevation. No SOB, advised her lungs are clear to auscultation. Hopes to work with PT before discharge. Family planning on transporting. Reviewed most recent trauma progress note, CBC and BMP. Discussed patient request for PNA vaccines if appropriate prior to discharge with PharmD, Flu vaccine ordered Physical Exam: BP 123/74 (BP Location: Left arm, Patient Position: Sitting) Pulse 83 Temp 98.3 degrees F (36.8 degrees C) (Oral) Resp 16 Ht 5' 6 Wt 81.6 kg (180 lb) LMP (LMP Unknown) SpO2 90% BMI 29.05 kg/m General: NAD Eyes: EOMI ENT: neck supple Cardiovascular: Regular rate. Respiratory: mild crackles to R lower lobe, otherwise clear. Unlabored on RA Gastrointestinal: Soft, non tender Musculoskeletal: No pitting BLE edema. Skin: warm, dry Neuro: Alert, oriented x4. No focal deficits Psych: Mood appropriate. Current Medications: acetaminophen 975 mg Oral Q6H DAIN enoxaparin (LOVENOX) injection 30 mg Subcutaneous BID fluticasone furoate 1 puff Inhalation Daily furosemide 40 mg Oral Daily gabapentin 300 mg Oral Q8H DAIN lidocaine 1 patch Transdermal Daily lisinopri (more content not included)... [facility] 08-13-2024 Note Date: 08/13/2024 Patient name: Matthew Perez Date Of : 1955 Admit Date: 08/06/2024 Acute pain due to trauma Overview Reason For Hospitalization: ICD-10 G89.11 Matthew Perez presented 08/06/2024 to [place] [facility] 08/05/2024 for fall from standing, found to have fractured right ribs 4-8, small pneumothorax. Transferred to [facility] 08/06/2024 for trauma evaluation. Pain Management consulted to assist with pain control. Trauma following- Worsening pneumothorax. Conservative management planned for now. Assessment: Matthew is s/p RIGHT RIB FIXATION, RIGHT CHEST TUBE PLACEMENT, INTERCOSTAL NERVE BLOCK She is a/ox3, NAD noted. Pleasant and conversational. Pt rates pain 3-4/10, constant and aching. Overall pain improvement each day per patient report. Pain Med hx: Chronic regimen: Clonazepam 1 mg BID and Percocet 10-325 mg. She reports taking 2 Percocet every 8 hours. She also has a morphine pump per Dr. Farr of [facility]. Patient reports multiple falls at home recently as well as episodes of sleep walking. Per daughter, frequency of falls has increased over the past few months. Discussed talking with prescriber (PCP) about weaning her off clonazepam as combination of clonazepam and narcotics could be contributing to her falls and is a dangerous combination. States she does not notice a difference in anxiety with clonazepam. DC recs -Resume chronic pain regimen -No DC with narcotics necessary. Patient last fill was on 08/02/2024 for a 30 day supply and she should have plenty left over to resume her normal regimen. Plan: Continue Oxycodone to 10-20 mg PO Q4H PRN, caution sedation (chronic regimen Percocet 20 mg TID) Discontinue Dilaudid to 0.5 IV Q4H PRN, caution sedation Continue Robaxin to 500 mg PO TID PRN (1 g IV Q8H initiated overnight) Continue clonazepam 0.5 mg PO BID PRN, chronic regimen 1 mg BID, consider weaning further Continue Lidocaine patch to right rib area Q12H Continue Tylenol 650 mg PO Q4H PRN Continue morphine pump, settings below Discontinued/Completed Therapies Robaxin 1g IV Q8H, rotate to oral PRN d/t concern for sedation Discontinue IV dilaudid Ketamine gtt Acute Findings/Imaging/Procedures RIGHT RIB FIXATION, RIGHT CHEST TUBE PLACEMENT, INTERCOSTAL NERVE BLOCK 08/09/2024 XR Chest 1 View- 08/06/24 IMPRESSION: 1. Persistent small right pneumothorax which appears slightly increased in size compared to the prior examination. 2. Suspected small pleural effusion with bibasilar opacities that could represent atelectasis, aspiration changes, and/or pneumonia. Disposition/Ongoing Plan: Follow up with chronic pain provider Dr. Farr Per pharmacy: Patient's morphine pump was last filled on 07/13/24. Patient is next scheduled for visit on 09/20/24 for a pump refill. Office staff relays patient's pump delivers 1mg every 24 hours, but was unable to receive any documentation from office (requested via fax) to verify. Dr. Farr's office number [phone] Substance Use History: Tobacco Use: Did not review at this time EtOH Use: Did not review at this time THC/CBD Use: Did not review at this time Illicit Substance Use: Did not review at this time Obtain/Use Medications not prescribed to you: Did not review at this time OARRS Reviewed: 08/02/2024 08/02/2024 1 Oxycodone-Acetaminophen 10-325 180.00 30 Br Hin [id number] Kro ([id number]) 0 90.00 [place] 07/18/2024 03/28/2024 2 Clonazepam 1 Mg Tablet 60.00 30 Br Hin [id number] Wal ([id number]) 1 4.00 [place] 06/29/2024 06/25/2024 1 Oxycodone-Acetaminophen 10-325 180.00 30 Br Hin [id number] Kro ([id number]) 0 90.00 [place] 06/13/2024 06/13/2024 2 Duramorph 5 Mg/10 Ml Ampul 10.00 1 Ay Bas [id number] [facility] ([id number]) 0 15.00 MME [place] 05/30/2024 05/30/2024 1 Oxycodone-Acetaminophen 10-325 180.00 30 Ra Patricia [id number] Kro ([id number]) 0 90.00 [place] 04/26/2024 04/24/2024 2 Oxycodone-Acetaminophen 10-325 180.00 30 Br Hin [id number] Wal ([id number]) 0 90.00 [place] 03/28/2024 03/28/2024 2 Clonazepam 1 Mg Tablet 60.00 30 Br Hin [id number] Wal ([id number]) 0 4.00 [place] 03/27/2024 03/26/2024 2 Oxycodone-Acetaminophen 10-325 180.00 30 Br Hin [id number] Wal ([id number]) 0 90.00 [place] 02/28/2024 02/27/2024 2 Oxycodone-Acetaminophen 10-325 180.00 30 Br Hin [id number] Wal ([id number]) 0 90.00 [place] 01/30/2024 01/24/2024 2 Oxycodone-Acetaminophen 10-325 180.00 30 Br Hin [id number] Wal ([id number]) 0 90.00 [place] 01/01/2024 12/29/2023 2 Oxycodone-Acetaminophen 10-325 180.00 30 Br Hin [id number] Wal ([id number]) 0 90.00 [place] 12/03/2023 11/23/2023 2 Oxycodone-Acetaminophen 10-325 180.00 30 Br Hin [id number] Wal ([id number]) 0 90.00 [place] 11/25/2023 11/25/2023 1 Oxycodone-Acetaminophen 10-325 45.00 7 Br Hin [id number] Kro ([id number]) 0 96.43 [place]ME [place] 10/28/2023 10/27/2023 1 Oxycodone-Acetaminophen 10-325 180.00 30 Br Hin [id number] Kro ( (more content not included)... [facility] 08-13-2024 Note [facility] In[facility] estelle Note 08/13/2024 Matthew Perez 1955 [id number] Assessment/Plan: Matthew Perez is a 69 y.o. female with a PMHx of HTN, HFpEF, prior spinal surgeries and chronic pain. She presented to [place] ED 08/05/2024 for fall from standing, found to have fractured right ribs 4-8, small pneumothorax. Transferred to [facility] 08/06/2024 for trauma evaluation. Underwent rib fixation 08/09/24. Multiple Right Rib fractures: Admit imaging with multiple acute nondisplaced anterior/anterolateral fractures of right ribs 4-8. Underwent rib fixation, chest tube placement and intercostal nerve block with Dr. Cobb (trauma surgery) 08/09/24. CT discontinued 08/10/24 per trauma without PTX on post-pull CXR Traumatic Right Hemopneumothorax: CT chest 08/06/2024 with small acute right non-dependent anterior pneumothorax. S/p operative intervention as discussed. CXR 08/11/24 with R effusion, IV lasix until 08/13/24, then oral Lasix. Strict I/O. Acute Hypoxic Respiratory Insufficiency: required up to 2L NC postoperatively. Encouraged IS, wean supplemental oxygen as able. S/p 3 days of IV diuresis. On room air 08/13/24. Dizziness: Noted in ED report, but patient denied. Did have dizziness/vertigo episodes 3 years [employer], denied recurrence. EKG 08/06/2024 with NSR, nonischemic. Troponin <7. Monitor on telemetry. Recommend avoiding home sleep aid/caffeine stimulants; judicious opiates/Klonopin use - consider weaning off chronic benzo as outpatient. OVS negative 08/10/24. Acute Traumatic Pain on Chronic pain syndrome: per history. In setting of multiple spinal surgeries as below. On chronic oxycodone 20mg TID, also with morphine pump with Dr. Farr (pain management). Pain management following, ketamine gtt course completed 08/12/24. IV Dilaudid dose decreased 08/10/24 due to concern for over sedation with improvement in mentation. Monitor for closely for sedation with multiple opioid modalities and ongoing BZD use. Fall: Hx of frequent falls. Fell from standing due to dizziness while raking leaves, OVS 08/10/24 negative. Injuries as discussed. PT/OT. Abnormal CT thoracic spine: admit imaging with several old compression fractures of thoracic spine, no evidence of acute fractures. Recommend following up outpatient. Hx lumbar posterior fusion with lumbar spinal stimulator: 07/[address] Landry ([facility]). Also with prior ACDF C7-T1. Continue OP follow up. Chronic HFpEF: TTE 06/28/23 with LVEF 67%, grade 1 diastolic dysfunction. Changed oral Lasix to IV with RLL effusion on CXR 08/11/24. Hypertension: Continued lisinopril, discontinued amlodipine due to low BP with holding medications intermittently. Diuresis as above. Asthma: per history. On home Qvar, Singulair, albuterol as needed. Continue analogous home inhalers. Anxiety: with benzo dependence. Home klonopin resumed at reduced dose, recommend attempting to wean completely off as outpatient given possibly contributing to falls. History of PE s/p IVC: Recent IVC placement. Denied taking Eliquis. Would continue at least ASA when able. Recommend OP follow up regarding AC/IVC retrieval. Code status: Full- unverified DVT Prophylaxis: Lovenox Thank you for allowing us to participate in the care of your patient. For any questions, please call the number of the covering hospitalist listed under the treatment team in care connect. Current living situation: home Expected Disposition: Home with [facility] Estimated discharge date: 08/14/24 Subjective: Patient seen at bedside, discussed with Trauma resident and RN that patient requesting one more night in the hospital prior to discharge home, overall pain controlled and ambulating with minimal assistance. Reviewed most recent trauma progress note, CBC and BMP. High risk med: IV dilaudid PRN. Physical Exam: BP 119/71 (BP Location: Right arm, Patient Position: Sitting) Pulse 92 Temp 97.8 degrees F (36.6 degrees C) (Oral) Resp 16 Ht 5' 6 Wt 81.6 kg (180 lb) LMP (LMP Unknown) SpO2 91% BMI 29.05 kg/m General: NAD Eyes: EOMI ENT: neck supple Cardiovascular: Regular rate. Respiratory: CTAB, unlabored on RA Gastrointestinal: Soft, non tender Musculoskeletal: No BLE edema. Skin: warm, dry Neuro: Alert, oriented x4. No focal deficits Psych: Mood appropriate. Current Medications: acetaminophen 975 mg Oral Q6H DAIN enoxaparin (LOVENOX) injection 30 mg Subcutaneous BID fluticasone furoate 1 puff Inhalation Daily [START ON 08/14/2024] furosemide 40 mg Oral Daily gabapentin 300 mg Oral Q8H DAIN lidocaine 1 patch Transdermal Daily lisinopriL 20 mg Oral Daily with lunch melatonin 3 mg Oral Nightly methocarbamoL 500 mg Oral TID montelukast 10 mg Oral QAM nystatin Topical BID polyethylene glycol 17 g Oral BID senna-docusate 1 tablet Oral BID sertraline 50 mg Oral QAM Labs, Imaging and Studies reviewed: Results from last 7 days L (more content not included)... [facility] 08-13-2024 Note Attestation signed by Braulio Craig MD at 08/13/2024 2:31 PM Pt seen and examined on trauma rounds with the team. Plan as outlined below. POD 4 status post rib plating. Ketamine drip discontinued. Continue PT/OT. [facility] Progress Note Patient Information Patient Name: Matthew Perez Age/Sex: 69 y.o., female : 1955 Date of evaluation: 08/13/2024 Code Status: Full Code - Unverified Discussed with Trauma Attending Dr. Craig on rounds - Agreed with plan of care Ongoing Assessment: Matthew Perez 69 y.o. female with a past medical history of Asthma, HTN, Depression, Migraines, Arthritis, Varicose veins of both lower extremities, Obesity, Fibromyalgia, Restless Leg Syndrome, GERD, Spinal stenosis, Anxiety, AYO, that presented to [facility] from [facility] on 08/06/24 s/p Fall with a Chief Complaint of right rib pain. 08/05/2024 the patient was reportedly out raking her leaves when she was dizzy and she fell hitting her right side. Patient did not hit head, and did not have LOC. AC/AP use: denies use of AC/AP meds. Tx from [facility] ED due to imaging revealed Right 4-8 rib fractures, and right traumatic hemopneumothorax. Patient admitted to Trauma Service. Medicine consulted. Rpt CXR with continued pneumothorax. AM CXR was repeated that did show a slightly worsened PTX. Tried conservative management and pain control first, however patient failed non-operative management and is now s/p right rib fixation and R chest tube placement on 08/09. All chest tubes now removed. Plan: - multimodal pain control - ketamine gtt discontinued 08/12 - Wean O2 as able - Aggressive pulmonary toilet - dispo planning - accepeted for home PT/OT services Tertiary exam: completed Consults: Medicine (Geriatric Focused), pain management Spine clearance status: - Cervical spine is cleared - TLS spine are cleared WB Status: No restrictions Diet: Regular diet DVT prophylaxis: Lovenox sq and SCDs Therapy: PT: 2-3, OT: 5-7 CM/SW consulted: Dispo plan - home w/HHC Ready for discharge from trauma standpoint? No [facility]: 1-2 days Injuries/Active Problems: - Rib Fx - right anterolateral 4-8 ribs, Likely NOM. Discussed rib plating with patient that she has 2 mildly displaced fractures, trials non-op management. S/p R rib plating and CT placement 08/09. CT removed 08/10 w/ normal PPCXR. O2 goal > 92%, pulmonary hygiene, pulling 1000 on IS, rib fractures secondary to osteopenia that alone not caused by trauma. - Traumatic Right Hemopneumothorax - Right apical PTX and right anterior 1.5 cm PTX with small right GUERO, 6hr follow up CXR showed 1.6 cm PTX. AM CXR: PTX decreased to 1.7 from 1.8 yesterday. O2 goal > 92%, pulmonary hygiene. Resolved on CXR, continue to monitor. - Dizziness prior to fall - Medicine consulted for work-up, appreciate recs. OVS when able. Hx of dizziness/vertigo 3 years ago. - Abnormal CT Scan Thoracic spine - mild compression fx of T7 and T8 SEP which are unchanged since prior examination. mild compression fx T9 inferior endplate which is stable and also changes of vertebroplasty at the T10 level. No evidence of acute fx throughout the thoracic spine. There is a fracture through the base of the endplate osteophytes at the inferior T7 level which is new since prior examination but have a chronic appearance. NTTP on exam, no further work up or consults indicated. PMH: Resume home medications as able, medicine is consulted for medical management - Asthma - HTN - Depression - Migraines - Arthritis - Varicose veins of both lower extremities - Obesity - Fibromyalgia - Restless Leg Syndrome - GERD - Spinal stenosis - Anxiety - AYO - prior ACDF C7-T1 - Prior lumbar posterior fusion - Lumbar spinal stimulator - Chronic pain-pain management consulted and following for management of acute pain Lab Abnormalities: - Thrombocytopenia - Plt 143 on admission, now 158, monitor CBC Daily, monitor for s/sx of ongoing bleeding - Hypokalemia - K 3.4 on admission, AM K 3.8, monitor w daily labs, replace PRN - leukocytosis - wbc 6.64, likely reactive in setting of surgery, continue to monitor daily cbc, likely reactive in setting of trauma Incidental Findings: - Cardiomegaly - Suspect mild CHF Discuss with patient prior to discharge, follow up outpatient with primary care provider Resolved Problems: None Subjective: Patient sitting up in chair this morning. Feels much more alert since ketamine discontinued yesterday. Having some pain and tightness around her ribs on the right, mostly with movement. Says she would really like to stay one more day to work with therapy and get pain under control better. Denies headache, dizziness, we (more content not included)... [facility] 08-12-2024 Note [facility]elle Note 08/12/2024 Matthew Perez 1955 [id number] Assessment/Plan: Matthew Perez is a 69 y.o. female with a PMHx of HTN, HFpEF, prior spinal surgeries and chronic pain. She presented to [place] ED 08/05/2024 for fall from standing, found to have fractured right ribs 4-8, small pneumothorax. Transferred to [facility] 08/06/2024 for trauma evaluation. Underwent rib fixation 08/09/24. Multiple Right Rib fractures: Admit imaging with multiple acute nondisplaced anterior/anterolateral fractures of right ribs 4-8. Underwent rib fixation, chest tube placement and intercostal nerve block with Dr. Cobb (trauma surgery) 08/09/24. CT discontinued 08/10/24 per trauma without PTX on post-pull CXR Traumatic Right Hemopneumothorax: CT chest 08/06/2024 with small acute right non-dependent anterior pneumothorax. S/p operative intervention as discussed. CXR 08/11/24 with R effusion, IV lasix until 08/13/24, then oral Lasix. Strict I/O. Acute Hypoxic Respiratory Insufficiency: required up to 2L NC postoperatively 08/09/24. Encouraged IS, wean supplemental oxygen as able. Spot diuresis. Dizziness: Noted in ED report, but patient denied. Did have dizziness/vertigo episodes 3 years [employer], denied recurrence. EKG 08/06/2024 with NSR, nonischemic. Troponin <7. Monitor on telemetry. Recommend avoiding home sleep aid/caffeine stimulants; judicious opiates/Klonopin use - consider weaning off chronic benzo as outpatient. OVS negative 08/10/24. Acute Traumatic Pain on Chronic pain syndrome: per history. In setting of multiple spinal surgeries as below. On chronic oxycodone 20mg TID, also with morphine pump with Dr. Farr (pain management). Pain management following, ketamine gtt started. IV Dilaudid dose decreased 08/10/24 due to concern for over sedation. Monitor for closely for sedation with multiple opioid modalities and ongoing BZD use. Fall: Hx of frequent falls. Fell from standing due to dizziness while raking leaves, OVS 08/10/24 negative. Injuries as discussed. PT/OT. Abnormal CT thoracic spine: admit imaging with several old compression fractures of thoracic spine, no evidence of acute fractures. Recommend following up outpatient. Hx lumbar posterior fusion with lumbar spinal stimulator: 07/[address] Landry ([facility]). Also with prior ACDF C7-T1. Continue OP follow up. Chronic HFpEF: TTE 06/28/23 with LVEF 67%, grade 1 diastolic dysfunction. Changed oral Lasix to IV with RLL effusion on CXR 08/11/24. Hypertension: Continued lisinopril, discontinued amlodipine due to low BP with holding medications intermittently. Diuresis as above. Asthma: per history. On home Qvar, Singulair, albuterol as needed. Continue analogous home inhalers. Anxiety: with benzo dependence. Home klonopin resumed at reduced dose, recommend attempting to wean completely off as outpatient given possibly contributing to falls. History of PE s/p IVC: Recent IVC placement. Denied taking Eliquis. Would continue at least ASA when able. Recommend OP follow up regarding AC/IVC retrieval. Code status: Full- unverified DVT Prophylaxis: Lovenox Thank you for allowing us to participate in the care of your patient. For any questions, please call the number of the covering hospitalist listed under the treatment team in care connect. Current living situation: home Expected Disposition: TBD, pending PT/OT re-assessment, CM consulted Estimated discharge date: TBD Subjective: Patient seen at bedside, alert and feeling OK, continued burning pain to R rib cage. Hoping to work with PT today and move more. Discussed she lives w/ her and son but would not physically be able to help her and son works during the day. No n/v, passing gas. Reviewed most recent trauma progress note, CBC and BMP. High risk med: IV dilaudid PRN, Ketamine gtt. Physical Exam: BP 121/69 (BP Location: Left arm, Patient Position: Sitting) Pulse 84 Temp 97.2 degrees F (36.2 degrees C) (Oral) Resp 16 Ht 5' 6 Wt 81.6 kg (180 lb) LMP (LMP Unknown) SpO2 90% BMI 29.05 kg/m General: NAD Eyes: EOMI ENT: neck supple Cardiovascular: Regular rate. Respiratory: diminished in right, unlabored on NC O2 Gastrointestinal: Soft, non tender Musculoskeletal: No BLE edema. Skin: warm, dry Neuro: Alert, oriented x4. No focal deficits Psych: Mood appropriate. Current Medications: acetaminophen 975 mg Oral Q6H DAIN enoxaparin (LOVENOX) injection 30 mg Subcutaneous BID fluticasone furoate 1 puff Inhalation Daily furosemide 40 mg Intravenous Daily gabapentin 300 mg Oral Q8H DAIN lidocaine 1 patch Transdermal Daily lisinopriL 20 mg Oral Daily with lunch montelukast 10 mg Oral QAM nystatin Topical BID polyethylene glycol 17 g Oral BID senna-docusate 1 tablet Oral BID sertraline 50 mg Oral QAM Labs, Imaging and Studies reviewed: Results from last 7 days Lab Units 08/12/24 03 (more content not included)... [facility] 08-12-2024 Note Attestation signed by Jose Santos MD at 08/12/2024 5:53 PM I saw this patient, reviewed all relevant labs, x-rays, and vitals, and agree with the plan as outlined by the resident/SPEECH CLINICIAN. [facility] Progress Note Patient Information Patient Name: Matthew Perez Age/Sex: 69 y.o., female : 1955 Date of evaluation: 08/12/2024 Code Status: Full Code - Unverified Discussed with Trauma Attending Dr. Huston on rounds - Agreed with plan of care Ongoing Assessment: Matthew Perez 69 y.o. female with a past medical history of Asthma, HTN, Depression, Migraines, Arthritis, Varicose veins of both lower extremities, Obesity, Fibromyalgia, Restless Leg Syndrome, GERD, Spinal stenosis, Anxiety, AYO, that presented to [facility] from [facility] on 08/06/24 s/p Fall with a Chief Complaint of right rib pain. 08/05/2024 the patient was reportedly out raking her leaves when she was dizzy and she fell hitting her right side. Patient did not hit head, and did not have LOC. AC/AP use: denies use of AC/AP meds. Tx from [facility] ED due to imaging revealed Right 4-8 rib fractures, and right traumatic hemopneumothorax. Patient admitted to Trauma Service. Medicine consulted. Rpt CXR with continued pneumothorax. AM CXR was repeated that did show a slightly worsened PTX. Tried conservative management and pain control first, however patient failed non-operative management and is now s/p right rib fixation and R chest tube placement on 08/09. All chest tubes now removed. Plan: - pain control - wants to keep ketamine gtt one more day - dc ketamine drip when able, pain management following - Wean O2 as able - Aggressive pulmonary toilet - PT/OT/dispo Tertiary exam: completed Consults: Medicine (Geriatric Focused), pain management Spine clearance status: - Cervical spine is cleared - TLS spine are cleared WB Status: No restrictions Diet: Regular diet DVT prophylaxis: Lovenox sq and SCDs Therapy: PT: 2-3, OT: 5-7 CM/SW consulted: Dispo plan - pending Ready for discharge from trauma standpoint? No [facility]: unknown Injuries/Active Problems: - Rib Fx - right anterolateral 4-8 ribs, Likely NOM. Discussed rib plating with patient that she has 2 mildly displaced fractures, trials non-op management. S/p R rib plating and CT placement 08/09. CT removed 08/10 w/ normal PPCXR. O2 goal > 92%, pulmonary hygiene, pulling 1000 on IS, rib fractures secondary to osteopenia that alone not caused by trauma. - Traumatic Right Hemopneumothorax - Right apical PTX and right anterior 1.5 cm PTX with small right GUERO, 6hr follow up CXR showed 1.6 cm PTX. AM CXR: PTX decreased to 1.7 from 1.8 yesterday. O2 goal > 92%, pulmonary hygiene. Resolved on CXR, continue to monitor. - Dizziness prior to fall - Medicine consulted for work-up, appreciate recs. OVS when able. Hx of dizziness/vertigo 3 years ago. - Abnormal CT Scan Thoracic spine - mild compression fx of T7 and T8 SEP which are unchanged since prior examination. mild compression fx T9 inferior endplate which is stable and also changes of vertebroplasty at the T10 level. No evidence of acute fx throughout the thoracic spine. There is a fracture through the base of the endplate osteophytes at the inferior T7 level which is new since prior examination but have a chronic appearance. NTTP on exam, no further work up or consults indicated. PMH: Resume home medications as able, medicine is consulted for medical management - Asthma - HTN - Depression - Migraines - Arthritis - Varicose veins of both lower extremities - Obesity - Fibromyalgia - Restless Leg Syndrome - GERD - Spinal stenosis - Anxiety - AYO - prior ACDF C7-T1 - Prior lumbar posterior fusion - Lumbar spinal stimulator - Chronic pain-currently with morphine pump in place, on Percocet 20-650 mg at home TID. Will consult pain management for assistance with acute traumatic pain. Lab Abnormalities: - Thrombocytopenia - Plt 143 on admission, now 138, monitor CBC Daily, monitor for s/sx of ongoing bleeding - Hypokalemia - K 3.4 on admission, AM K 4, monitor w daily labs, replace PRN - leukocytosis - wbc 8.57, likely reactive in setting of surgery, continue to monitor daily cbc, likely reactive in setting of trauma Incidental Findings: - Cardiomegaly - Suspect mild CHF Discuss with patient prior to discharge, follow up outpatient with primary care provider Resolved Problems: None Subjective: Patient resting in bed this morning. Says she feels very sleeping but is arousable and oriented. No shortness of breath but it is painful to take deep breaths, has been trying to use her IS. Denies headache, dizziness, weakness, nausea, vomiting, abdominal pain, palpitations, o (more content not included)... [facility] 08-11-2024 Note [facility] Inpatient Pro estelle Note 08/11/2024 Matthew Perez 1955 [id number] Assessment/Plan: Matthew Perez is a 69 y.o. female with a PMHx of HTN, HFpEF, prior spinal surgeries and chronic pain. She presented to [place] ED 08/05/2024 for fall from standing, found to have fractured right ribs 4-8, small pneumothorax. Transferred to [facility] 08/06/2024 for trauma evaluation. Underwent rib fixation 08/09/24. Multiple Right Rib fractures: Admit imaging with multiple acute nondisplaced anterior/anterolateral fractures of right ribs 4-8. Underwent rib fixation, chest tube placement and intercostal nerve block with Dr. Cobb (trauma surgery) 08/09/24. CT discontinued 08/10/24 per trauma without PTX on post-pull CXR Traumatic Right Hemopneumothorax: CT chest 08/06/2024 with small acute right non-dependent anterior pneumothorax. S/p operative intervention as discussed. CXR 08/11/24 with effusion, oral Lasix changed to IV lasix 08/11/24. Acute Hypoxic Respiratory Insufficiency: required up to 2L NC postoperatively 08/09/24. Encouraged IS, wean supplemental oxygen as able. Spot diuresis. Dizziness: Noted in ED report, but patient denied. Did have dizziness/vertigo episodes 3 years [employer], denied recurrence. EKG 08/06/2024 with NSR, nonischemic. Troponin <7. Monitor on telemetry. Recommend avoiding home sleep aid/caffeine stimulants; judicious opiates/Klonopin use - consider weaning off chronic benzo as outpatient. OVS negative 08/10/24. Acute Traumatic Pain on Chronic pain syndrome: per history. In setting of multiple spinal surgeries as below. On chronic oxycodone 20mg TID, also with morphine pump with Dr. Farr (pain management). Pain management following, ketamine gtt started. IV Dilaudid dose decreased 08/10/24 due to concern for over sedation. Monitor for closely for sedation with multiple opioid modalities and ongoing BZD use. Fall: Hx of frequent falls. Fell from standing due to dizziness while raking leaves, OVS 08/10/24 negative. Injuries as discussed. PT/OT. Abnormal CT thoracic spine: admit imaging with several old compression fractures of thoracic spine, no evidence of acute fractures. Recommend following up outpatient. Hx lumbar posterior fusion with lumbar spinal stimulator: 07/[address] Landry ([facility]). Also with prior ACDF C7-T1. Continue OP follow up. Chronic HFpEF: TTE 06/28/23 with LVEF 67%, grade 1 diastolic dysfunction. Changed oral Lasix to IV with RLL effusion on CXR 08/11/24. Hypertension: Continued lisinopril, discontinued amlodipine due to low BP with holding medications intermittently. Diuresis as above. Asthma: per history. On home Qvar, Singulair, albuterol as needed. Continue analogous home inhalers. Anxiety: with benzo dependence. Home klonopin resumed at reduced dose, recommend attempting to wean completely off as outpatient given possibly contributing to falls. History of PE s/p IVC: Recent IVC placement. Denied taking Eliquis. Would continue at least ASA when able. Recommend OP follow up regarding AC/IVC retrieval. Code status: Full- unverified DVT Prophylaxis: SCDs Thank you for allowing us to participate in the care of your patient. For any questions, please call the number of the covering hospitalist listed under the treatment team in care connect. Current living situation: home Expected Disposition: TBD Estimated discharge date: TBD I reviewed the patient's medications and noted those which may be inappropriate for their age and condition; I also provided recommendations to prevent, identify, and treat dementia, depression and delirium. We will collaborate with the multidisciplinary team to determine the patient's goals of care, status of advanced directives, and identification of a proxy decision maker, if needed. We will screen for mobility limitations and assure early, frequent, and safe mobility to help facilitate a safe transition out of the hospital. Subjective: Patient seen at bedside, drowsy again today but easily awakens, oriented x4, endorses pain controlled. Has not required narcotics PRN for last 24hrs. Reviewed most recent trauma progress note, CBC and BMP. High risk med: IV dilaudid PRN, Ketamine gtt. CXR image personally reviewed with increased haziness/effusion to RLL compared to prior, no PTX. Physical Exam: BP (!) 111/52 Pulse 94 Temp 97.7 degrees F (36.5 degrees C) (Oral) Resp (!) 25 Ht 5' 6 Wt 81.6 kg (180 lb) LMP (LMP Unknown) SpO2 97% BMI 29.05 kg/m General: NAD, drowsy Eyes: EOMI ENT: neck supple Cardiovascular: Regular rate. Respiratory: diminished in right, unlabored, +CT. Gastrointestinal: Soft, non tender Musculoskeletal: No BLE edema. Skin: warm, dry Neuro: Drowsy, awakens to voice. Speech clear when fully awake. Oriented x3 without focal deficits Psych: Mood appropriate. Current Medications: acetaminophen 975 mg Oral Q6H DAIN enoxaparin (LOVE (more content not included)... [facility] 08-11-2024 Note Attestation signed by Jose Santos MD at 08/11/2024 5:31 PM I saw this patient, reviewed all relevant labs, x-rays, and vitals, and agree with the plan as outlined by the resident/SPEECH CLINICIAN. [facility] Progress Note Patient Information Patient Name: Matthew Perez Age/Sex: 69 y.o., female : 1955 Date of evaluation: 08/11/2024 Code Status: Full Code - Unverified Discussed with Trauma Attending Dr. Huston on rounds - Agreed with plan of care Ongoing Assessment: Matthew Perez 69 y.o. female with a past medical history of Asthma, HTN, Depression, Migraines, Arthritis, Varicose veins of both lower extremities, Obesity, Fibromyalgia, Restless Leg Syndrome, GERD, Spinal stenosis, Anxiety, AYO, that presented to [facility] from [facility] on 08/06/24 s/p Fall with a Chief Complaint of right rib pain. 08/05/2024 the patient was reportedly out raking her leaves when she was dizzy and she fell hitting her right side. Patient did not hit head, and did not have LOC. AC/AP use: denies use of AC/AP meds. Tx from [facility] ED due to imaging revealed Right 4-8 rib fractures, and right traumatic hemopneumothorax. Patient admitted to Trauma Service. Medicine consulted. Rpt CXR with continued pneumothorax. AM CXR was repeated that did show a slightly worsened PTX. Tried conservative management and pain control first, however patient failed non-operative management and is now s/p right rib fixation and R chest tube placement on 08/09. Plan: - pain control - dc ketamine drip when able, pain management following - Wean O2 as able - Aggressive pulmonary toilet Tertiary exam: completed Consults: Medicine (Geriatric Focused), pain management Spine clearance status: - Cervical spine is cleared - TLS spine are cleared WB Status: No restrictions Diet: Regular diet DVT prophylaxis: Lovenox sq and SCDs Therapy: PT: 2-3, OT: 5-7 CM/SW consulted: Dispo plan - pending Ready for discharge from trauma standpoint? No [facility]: unknown Injuries/Active Problems: - Rib Fx - right anterolateral 4-8 ribs, Likely NOM. Discussed rib plating with patient that she has 2 mildly displaced fractures, trials non-op management. S/p R rib plating and CT placement 08/09. CT removed 08/10 w/ normal PPCXR. O2 goal > 92%, pulmonary hygiene, pulling 1000 on IS, rib fractures secondary to osteopenia that alone not caused by trauma. - Traumatic Right Hemopneumothorax - Right apical PTX and right anterior 1.5 cm PTX with small right GUERO, 6hr follow up CXR showed 1.6 cm PTX. AM CXR: PTX decreased to 1.7 from 1.8 yesterday. O2 goal > 92%, pulmonary hygiene. Resolved on CXR, continue to monitor. - Dizziness prior to fall - Medicine consulted for work-up, appreciate recs. OVS when able. Hx of dizziness/vertigo 3 years ago. - Abnormal CT Scan Thoracic spine - mild compression fx of T7 and T8 SEP which are unchanged since prior examination. mild compression fx T9 inferior endplate which is stable and also changes of vertebroplasty at the T10 level. No evidence of acute fx throughout the thoracic spine. There is a fracture through the base of the endplate osteophytes at the inferior T7 level which is new since prior examination but have a chronic appearance. NTTP on exam, no further work up or consults indicated. PMH: Resume home medications as able, medicine is consulted for medical management - Asthma - HTN - Depression - Migraines - Arthritis - Varicose veins of both lower extremities - Obesity - Fibromyalgia - Restless Leg Syndrome - GERD - Spinal stenosis - Anxiety - AYO - prior ACDF C7-T1 - Prior lumbar posterior fusion - Lumbar spinal stimulator - Chronic pain-currently with morphine pump in place, on Percocet 20-650 mg at home TID. Will consult pain management for assistance with acute traumatic pain. Lab Abnormalities: - Thrombocytopenia - Plt 143 on admission, now 154, monitor CBC Daily, monitor for s/sx of ongoing bleeding - Hypokalemia - K 3.4 on admission, AM K 3.9, monitor w daily labs, replace PRN - leukocytosis - wbc 8.54, likely reactive in setting of surgery, continue to monitor daily cbc, likely reactive in setting of trauma Incidental Findings: - Cardiomegaly - Suspect mild CHF Discuss with patient prior to discharge, follow up outpatient with primary care provider Resolved Problems: None Subjective: Patient resting in bed this morning. Says she feels very sleeping but is arousable and oriented. No shortness of breath but it is painful to take deep breaths, has been trying to use her IS. Denies headache, dizziness, weakness, nausea, vomiting, abdominal pain, palpitations, or paresthesias. Objective: Recent vital signs reviewed Vital signs range: Temp: (more content not included)... [facility] 08-10-2024 Note [facility] Note 08/10/2024 Matthew Perez 1955 [id number] Assessment/Plan: Matthew Perez is a 69 y.o. female with a PMHx of HTN, HFpEF, prior spinal surgeries and chronic pain. She presented to [place] ED 08/05/2024 for fall from standing, found to have fractured right ribs 4-8, small pneumothorax. Transferred to [facility] 08/06/2024 for trauma evaluation. Underwent rib fixation 08/09/24. Multiple Right Rib fractures: Admit imaging with multiple acute nondisplaced anterior/anterolateral fractures of right ribs 4-8. Underwent rib fixation, chest tube placement and intercostal nerve block with Dr. Cobb (trauma surgery) 08/09/24. CT discontinued 08/10/24 per trauma, post-pull CXR read pending. Traumatic Right Hemopneumothorax: CT chest 08/06/2024 with small acute right non-dependent anterior pneumothorax. S/p operative intervention as discussed. Acute Hypoxic Respiratory Insufficiency: required up to 2L NC postoperatively 08/09/24. Encouraged IS, wean supplemental oxygen as able. Dizziness: Noted in ED report, but patient denied. Did have dizziness/vertigo episodes 3 years [employer], denied recurrence. EKG 08/06/2024 with NSR, nonischemic. Troponin <7. Monitor on telemetry. Recommend avoiding home sleep aid/caffeine stimulants; judicious opiates/Klonopin use - consider weaning off chronic benzo as outpatient. OVS when able. Acute Traumatic Pain on Chronic pain syndrome: per history. In setting of multiple spinal surgeries as below. On chronic oxycodone 20mg TID, also with morphine pump with Dr. Farr (pain management). Pain management following, ketamine gtt started. IV Dilaudid dose decreased 08/10/24 due to concern for over sedation. Monitor for closely for sedation with multiple opioid modalities and ongoing BZD use. Fall: Hx of frequent falls. Fell from standing due to dizziness while raking leaves. Injuries as discussed. PT/OT as able. OVS when able to tolerate. Abnormal CT thoracic spine: admit imaging with several old compression fractures of thoracic spine, no evidence of acute fractures. Recommend following up outpatient. Hx lumbar posterior fusion with lumbar spinal stimulator: 07/[address] Landry ([facility]). Also with prior ACDF C7-T1. Continue OP follow up. Chronic HFpEF: TTE 06/28/23 with LVEF 67%, grade 1 diastolic dysfunction. Euvolemic on exam 08/08/24. Hypertension: Continued lisinopril, Lasix, discontinued amlodipine due to low BP with holding medications intermittently. Asthma: per history. On home Qvar, Singulair, albuterol as needed. Continue analogous home inhalers. Anxiety: with benzo dependence. Home klonopin resumed at reduced dose, recommend attempting to wean completely off as outpatient given possibly contributing to falls. History of PE s/p IVC: Recent IVC placement. Denied taking Eliquis. Would continue at least ASA when able. Recommend OP follow up regarding AC/IVC retrieval. Code status: Full- unverified DVT Prophylaxis: SCDs Thank you for allowing us to participate in the care of your patient. For any questions, please call the number of the covering hospitalist listed under the treatment team in care connect. Current living situation: home Expected Disposition: home with [facility] Estimated discharge date: TBD I reviewed the patient's medications and noted those which may be inappropriate for their age and condition; I also provided recommendations to prevent, identify, and treat dementia, depression and delirium. We will collaborate with the multidisciplinary team to determine the patient's goals of care, status of advanced directives, and identification of a proxy decision maker, if needed. We will screen for mobility limitations and assure early, frequent, and safe mobility to help facilitate a safe transition out of the hospital. Subjective: Patient seen at bedside, drowsy at time of my evaluation, awakens easily but falls back asleep. S. Pain management note reviewed with decrease in opioids and change of IV robaxin to oral noted. Reviewed most recent trauma progress note, CBC and BMP. High risk med: IV dilaudid, Ketamine gtt. CXR post-chest tube pull personally reviewed, appears stable from prior CXR, radiology read pending. Physical Exam: BP (!) 95/52 (BP Location: Right arm, Patient Position: Lying) Pulse 79 Temp 97.7 degrees F (36.5 degrees C) (Oral) Resp 16 Ht 5' 6 Wt 81.6 kg (180 lb) LMP (LMP Unknown) SpO2 99% BMI 29.05 kg/m General: NAD Eyes: EOMI ENT: neck supple Cardiovascular: Regular rate. Respiratory: diminished in right, unlabored, +CT. Gastrointestinal: Soft, non tender Musculoskeletal: No BLE edema. Skin: warm, dry Neuro: Drowsy, requires physical stimuli to awaken. Oriented x3 without focal deficits Psych: Mood appropriate. Current Medications: acetaminophen 975 mg Oral Q6H DAIN amLODIPine 5 mg Oral QAM enoxaparin (LOVENOX) injection 30 m (more content not included)... [facility] 08-10-2024 Note [facility] Progress Note Patient Information Patient Name: Matthew Perez Age/Sex: 69 y.o., female : 1955 Date of evaluation: 08/10/2024 Code Status: Full Code - Unverified Discussed with Trauma Attending Dr. Huston on rounds - Agreed with plan of care Ongoing Assessment: Matthew Perez 69 y.o. female with a past medical history of Asthma, HTN, Depression, Migraines, Arthritis, Varicose veins of both lower extremities, Obesity, Fibromyalgia, Restless Leg Syndrome, GERD, Spinal stenosis, Anxiety, AYO, that presented to [facility] from [facility] on 08/06/24 s/p Fall with a Chief Complaint of right rib pain. 08/05/2024 the patient was reportedly out raking her leaves when she was dizzy and she fell hitting her right side. Patient did not hit head, and did not have LOC. AC/AP use: denies use of AC/AP meds. Tx from [facility] ED due to imaging revealed Right 4-8 rib fractures, and right traumatic hemopneumothorax. Patient admitted to Trauma Service. Medicine consulted. Rpt CXR with continued pneumothorax. AM CXR was repeated that did show a slightly worsened PTX. Tried conservative management and pain control first, however patient failed non-operative management and is now s/p right rib fixation and R chest tube placement on 08/09. Plan: - pain control - dc ketamine drip tomorrow if pain improving - Wean O2 as able - Aggressive pulmonary toilet - remove chest tube today and f/u CXR 4 hours post pull - resume home lasix Tertiary exam: completed Consults: Medicine (Geriatric Focused), pain management Spine clearance status: - Cervical spine is cleared - TLS spine are cleared WB Status: No restrictions Diet: Regular diet DVT prophylaxis: Lovenox sq and SCDs Therapy: PT: 2-3, OT: 5-7 CM/SW consulted: Dispo plan - pending Ready for discharge from trauma standpoint? No [facility]: unknown Injuries/Active Problems: - Rib Fx - right anterolateral 4-8 ribs, Likely NOM. Discussed rib plating with patient that she has 2 mildly displaced fractures, trials non-op management. S/p R rib plating and CT placement 08/09. CT to water-seal. O2 goal > 92%, pulmonary hygiene, pulling 1000 on IS, rib fractures secondary to osteopenia that alone not caused by trauma. - Traumatic Right Hemopneumothorax - Right apical PTX and right anterior 1.5 cm PTX with small right GUERO, 6hr follow up CXR showed 1.6 cm PTX. AM CXR: PTX decreased to 1.7 from 1.8 yesterday. O2 goal > 92%, pulmonary hygiene. Resolved on CXR, continue to monitor. - Dizziness prior to fall - Medicine consulted for work-up, appreciate recs. OVS when able. Hx of dizziness/vertigo 3 years ago. - Abnormal CT Scan Thoracic spine - mild compression fx of T7 and T8 SEP which are unchanged since prior examination. mild compression fx T9 inferior endplate which is stable and also changes of vertebroplasty at the T10 level. No evidence of acute fx throughout the thoracic spine. There is a fracture through the base of the endplate osteophytes at the inferior T7 level which is new since prior examination but have a chronic appearance. NTTP on exam, no further work up or consults indicated. PMH: Resume home medications as able, medicine is consulted for medical management - Asthma - HTN - Depression - Migraines - Arthritis - Varicose veins of both lower extremities - Obesity - Fibromyalgia - Restless Leg Syndrome - GERD - Spinal stenosis - Anxiety - AYO - prior ACDF C7-T1 - Prior lumbar posterior fusion - Lumbar spinal stimulator - Chronic pain-currently with morphine pump in place, on Percocet 20-650 mg at home TID. Will consult pain management for assistance with acute traumatic pain. Lab Abnormalities: - Thrombocytopenia - Plt 143 on admission, now 154, monitor CBC Daily, monitor for s/sx of ongoing bleeding - Hypokalemia - K 3.4 on admission, AM K 4.5, monitor w daily labs, replace PRN - leukocytosis - wbc 12.58, likely reactive in setting of surgery, continue to monitor daily cbc, likely reactive in setting of trauma Incidental Findings: - Cardiomegaly - Suspect mild CHF Discuss with patient prior to discharge, follow up outpatient with primary care provider Resolved Problems: None Subjective: Patient resting in bed this morning. Says she feels very sleeping but is arousable and oriented. No shortness of breath but it is painful to take deep breaths, has been trying to use her IS. Denies headache, dizziness, weakness, nausea, vomiting, abdominal pain, palpitations, or paresthesias. Objective: Recent vital signs reviewed Vital signs range: Temp: [97.6 degrees F (36.4 degrees C)-98.9 degrees F (37.2 degrees C)] 97.8 degrees F (36.6 degrees C) Heart Rate: [95-118] 99 Resp: [14-28] 14 BP: (103-148)/(60-72) 103/60 General: Patient not in distress Neuro: GCS 15, no focal neurological deficits Head: Normocephalic, facial bones are nontende (more content not included)... [facility] 08-10-2024 Note Date: 08/10/2024 Patient name: Matthew Perez Date Of : 1955 Admit Date: 08/06/2024 Acute pain due to trauma Overview Reason For Hospitalization: ICD-10 G89.11 Matthew Perez presented 08/06/2024 to [place] ED 08/05/2024 for fall from standing, found to have fractured right ribs 4-8, small pneumothorax. Transferred to [facility] 08/06/2024 for trauma evaluation. Pain Management consulted to assist with pain control. Trauma following- Worsening pneumothorax. Conservative management planned for now. Assessment: Matthew is POD #1 RIGHT RIB FIXATION, RIGHT CHEST TUBE PLACEMENT, INTERCOSTAL NERVE BLOCK Matthew is laying in bed and appears asleep. Arouses somewhat easily and reports pain 6/10 in her rib cage. She falls asleep multiple times during conversation and requires frequent prompting to participate in conversation. Discussed concerns regarding sedation. Offered adjustments to medication regimen, patient in agreement with plan. Encouraged the use of oral pain medication vs IV pain medication for greater efficacy and duration of pain coverage. Suspect pain control may be challenging given long history of high dose narcotic use. Previous: Chronic regimen: Clonazepam 1 mg BID and Percocet 10-325 mg. She reports taking 2 Percocet every 8 hours. She also has a morphine pump per Dr. Farr of [facility]. Patient reports multiple falls at home recently as well as episodes of sleep walking. Per daughter, frequency of falls has increased over the past few months. Discussed talking with prescriber (PCP) about weaning her off clonazepam as combination of clonazepam and narcotics could be contributing to her falls and is a dangerous combination. States she does not notice a difference in anxiety with clonazepam. Plan: Adjust Oxycodone to 10-20 mg PO Q4H PRN, caution sedation (chronic regimen Percocet 20 mg TID) Decrease Dilaudid to 0.5 IV Q4H PRN, caution sedation Rotate Robaxin to 500 mg PO TID PRN (1 g IV Q8H initiated overnight) Continue clonazepam 0.5 mg PO BID PRN, chronic regimen 1 mg BID, consider weaning further Continue Lidocaine patch to right rib area Q12H Continue Tylenol 650 mg PO Q4H PRN Continue morphine pump, settings below Continue Ketamine drip at 0.1 mg/kg/hr Please note that this is an opiate-sparing, sub anesthetic protocol. Protocol to run 5-7 days and titrations are not to be made for a minimum of 24 hours after initiation with maximum upward titration of 0.3 mg/kg/hr after day 3. Stop infusion for pulse >110, SBP > 25% than baseline, sustained respirations <7, or increased sustained agitation Of note: Ketamine can be stopped on day 7 or day of discharge, whichever comes first and does not require titration No NSAIDs (allergy) Discontinued/Completed Therapies Robaxin 1g IV Q8H, rotate to oral PRN d/t concern for sedation Acute Findings/Imaging/Procedures RIGHT RIB FIXATION, RIGHT CHEST TUBE PLACEMENT, INTERCOSTAL NERVE BLOCK 08/09/2024 XR Chest 1 View- 08/06/24 IMPRESSION: 1. Persistent small right pneumothorax which appears slightly increased in size compared to the prior examination. 2. Suspected small pleural effusion with bibasilar opacities that could represent atelectasis, aspiration changes, and/or pneumonia. Disposition/Ongoing Plan: Follow up with chronic pain provider Dr. Farr Per pharmacy: Patient's morphine pump was last filled on 07/13/24. Patient is next scheduled for visit on 09/20/24 for a pump refill. Office staff relays patient's pump delivers 1mg every 24 hours, but was unable to receive any documentation from office (requested via fax) to verify. Dr. Farr's office number [phone] Substance Use History: Tobacco Use: Did not review at this time EtOH Use: Did not review at this time THC/CBD Use: Did not review at this time Illicit Substance Use: Did not review at this time Obtain/Use Medications not prescribed to you: Did not review at this time OARRS Reviewed: 08/02/2024 08/02/2024 1 Oxycodone-Acetaminophen 10-325 180.00 30 Br Hin [id number] [facility] ([id number]) 0 90.00 MME [place] 07/18/2024 03/28/2024 2 Clonazepam 1 Mg Tablet 60.00 30 Br Hin [id number] [facility] ([id number]) 1 4.00 LME [place] 06/29/2024 06/25/2024 1 Oxycodone-Acetaminophen 10-325 180.00 30 Br Hin [id number] [facility] ([id number]) 0 90.00 [place] 06/13/2024 06/13/2024 2 Duramorph 5 Mg/10 Ml Ampul 10.00 1 Ay Bas [id number] [facility] ([id number]) 0 15.00 MME [place] 05/30/2024 05/30/2024 1 Oxycodone-Acetaminophen 10-325 180.00 30 Ra Goy [id number] [facility] ([id number]) 0 90.00 [place]ME [place] 04/26/2024 04/24/2024 2 Oxycodone-Acetaminophen 10-325 180.00 30 Br Hin [id number] [facility] ([id number]) 0 90.00 [place]ME [place] 03/28/2024 03/28/2024 2 Clonazepam 1 Mg Tablet 60.00 30 Br Hin [id number] [facility] ([id number]) 0 4.00 LME [place] 03/27/2024 03/26/2024 2 Oxycodone-Acetaminophen 10-325 180.00 30 Br Hin [id number] [facility] ([phone]) 0 90.00 MME Medi (more content not included)... [facility] 08-09-2024 Note [place] [facility] vice Progress Note Patient Information Patient Name: Matthew Perez Age/Sex: 69 y.o., female : 1955 Date of evaluation: 08/09/2024 Code Status: Full Code - Unverified Discussed with Trauma Attending Dr. Cobb on rounds - Agreed with plan of care Ongoing Assessment: Matthew Perez 69 y.o. female with a past medical history of Asthma, HTN, Depression, Migraines, Arthritis, Varicose veins of both lower extremities, Obesity, Fibromyalgia, Restless Leg Syndrome, GERD, Spinal stenosis, Anxiety, AYO, that presented to [facility] from [facility] on 08/06/24 s/p Fall with a Chief Complaint of right rib pain. 08/05/2024 the patient was reportedly out raking her leaves when she was dizzy and she fell hitting her right side. Patient did not hit head, and did not have LOC. AC/AP use: denies use of AC/AP meds. Tx from [facility] ED due to imaging revealed Right 4-8 rib fractures, and right traumatic hemopneumothorax. Patient admitted to Trauma Service. Medicine consulted. Rpt CXR with continued pneumothorax. AM CXR was repeated that did show a slightly worsened PTX. Tried conservative management and pain control first, however patient failed non-operative management and is now s/p right rib fixation and R chest tube placement on 08/09. Plan: - pain control - Wean O2 as able - Aggressive pulmonary toilet - Chest tube placed to water-seal after post op CXR w/o pneumothorax. F/u CXR @ 1600 - okay for diet Tertiary exam: completed Consults: Medicine (Geriatric Focused), pain management Spine clearance status: - Cervical spine is cleared - TLS spine are cleared WB Status: No restrictions Diet: Regular diet DVT prophylaxis: Lovenox sq and SCDs Therapy: PT: 2-3, OT: 5-7 CM/SW consulted: Dispo plan - pending Ready for discharge from trauma standpoint? No [facility]: unknown Injuries/Active Problems: - Rib Fx - right anterolateral 4-8 ribs, Likely NOM. Discussed rib plating with patient that she has 2 mildly displaced fractures, trials non-op management. S/p R rib plating and CT placement 08/09. CT to water-seal. O2 goal > 92%, pulmonary hygiene, pulling 1000 on IS, rib fractures secondary to osteopenia that alone not caused by trauma - Traumatic Right Hemopneumothorax - Right apical PTX and right anterior 1.5 cm PTX with small right GUERO, 6hr follow up CXR showed 1.6 cm PTX. AM CXR: PTX decreased to 1.7 from 1.8 yesterday. O2 goal > 92%, pulmonary hygiene, chest tube is not needed at this time. - Dizziness prior to fall - Medicine consulted for work-up, appreciate recs. OVS when able. Hx of dizziness/vertigo 3 years ago. - Abnormal CT Scan Thoracic spine - mild compression fx of T7 and T8 SEP which are unchanged since prior examination. mild compression fx T9 inferior endplate which is stable and also changes of vertebroplasty at the T10 level. No evidence of acute fx throughout the thoracic spine. There is a fracture through the base of the endplate osteophytes at the inferior T7 level which is new since prior examination but have a chronic appearance. NTTP on exam, no further work up or consults indicated. PMH: Resume home medications as able, medicine is consulted for medical management - Asthma - HTN - Depression - Migraines - Arthritis - Varicose veins of both lower extremities - Obesity - Fibromyalgia - Restless Leg Syndrome - GERD - Spinal stenosis - Anxiety - AYO - prior ACDF C7-T1 - Prior lumbar posterior fusion - Lumbar spinal stimulator - Chronic pain-currently with morphine pump in place, on Percocet 20-650 mg at home TID. Will consult pain management for assistance with acute traumatic pain. Lab Abnormalities: - Thrombocytopenia - Plt 143 on admission, now 147, monitor CBC Daily, monitor for s/sx of ongoing bleeding - Hypokalemia - K 3.4 on admission, AM K 4, monitor w daily labs, replace PRN Incidental Findings: - Cardiomegaly - Suspect mild CHF Discuss with patient prior to discharge, follow up outpatient with primary care provider Resolved Problems: None Subjective: Patient is feeling okay after surgery. Denies chest pain. Pain with deep breathing but improves with medications. Also having mild right shoulder pain. No nausea, has an appetite. Discussed importance of using the incentive spirometry. Denies headache, dizziness, weakness, nausea, vomiting, abdominal pain, palpitations, or paresthesias. Objective: Recent vital signs reviewed Vital signs range: Temp: [97.3 degrees F (36.3 degrees C)-98.9 degrees F (37.2 degrees C)] 98.7 degrees F (37.1 degrees C) Heart Rate: [69-103] 99 Resp: [13-22] 19 BP: (98-164)/(49-94) 144/70 General: Patient not in distress Neuro: GCS 15, no focal neurological deficits Head: Normocephalic, facial bones are nontender Eyes: EOMs intact, gross vision intact ENT: Nares are clear, moist mucous membranes, trachea midline Chest (more content not included)... [facility] 08-09-2024 Note [facility] In[facility] Pro estelle Note 08/09/2024 Matthew Perez 1955 [id number] Assessment/Plan: Matthew Perez is a 69 y.o. female with a PMHx of HTN, HFpEF, prior spinal surgeries and chronic pain. She presented to [place] ED 08/05/2024 for fall from standing, found to have fractured right ribs 4-8, small pneumothorax. Transferred to [facility] 08/06/2024 for trauma evaluation. Underwent rib fixation 08/09/24. Multiple right rib fractures: Admit imaging with multiple acute nondisplaced anterior/anterolateral fractures of right ribs 4-8. Underwent rib fixation, chest tube placement and intercostal nerve block with Dr. Cobb (trauma surgery) 08/09/24. CT management per trauma primary. Traumatic right hemopneumothorax: CT chest 08/06/2024 with small acute right non-dependent anterior pneumothorax. S/p operative intervention as discussed. Acute Hypoxic Respiratory Insufficiency: required up to 6L NC postoperatively 08/09/24. Encouraged IS, wean supplemental oxygen as able. Dizziness: Noted in ED report, but patient denied. Did have dizziness/vertigo episodes 3 years [employer], denied recurrence. EKG 08/06/2024 with NSR, nonischemic. Troponin <7. Monitor on telemetry. Recommend avoiding home sleep aid/caffeine stimulants; judicious opiates/Klonopin use - consider weaning off chronic benzo as outpatient. OVS when able. Acute Traumatic Pain on Chronic pain syndrome: per history. In setting of multiple spinal surgeries as below. On chronic oxygen, also with morphine pump with Dr. Farr (pain management). Pain management following. Fall: Hx of frequent falls. Fell from standing due to dizziness while raking leaves. Injuries as discussed. PT/OT as able. Abnormal CT thoracic spine: admit imaging with several old compression fractures of thoracic spine, no evidence of acute fractures. Recommend following up outpatient. Hx lumbar posterior fusion with lumbar spinal stimulator: 07/[address] Landry ([facility]). Also with prior ACDF C7-T1. Continue OP follow up. Chronic HFpEF: TTE 06/28/23 with LVEF 67%, grade 1 diastolic dysfunction. Euvolemic on exam 08/08/24. Hypertension: Continued lisinopril, Lasix, reduced amlodipine until further trends. OVS pending as above. Asthma: per history. On home Qvar, Singulair, albuterol as needed. Continue analogous home inhalers. Anxiety: with benzo dependence. Home klonopin resumed at reduced dose, recommend attempting to wean completely off as outpatient given possibly contributing to falls. History of PE s/p IVC: Recent IVC placement. Denied taking Eliquis. Would continue at least ASA when able. Recommend OP follow up regarding AC/IVC retrieval. Code status: Full unverified DVT Prophylaxis: SCDs Thank you for allowing us to participate in the care of your patient. For any questions, please call the number of the covering hospitalist listed under the treatment team in care connect. Current living situation: home Expected Disposition: TBD, therapy consulted Estimated discharge date: TBD I reviewed the patient's medications and noted those which may be inappropriate for their age and condition; I also provided recommendations to prevent, identify, and treat dementia, depression and delirium. We will collaborate with the multidisciplinary team to determine the patient's goals of care, status of advanced directives, and identification of a proxy decision maker, if needed. We will screen for mobility limitations and assure early, frequent, and safe mobility to help facilitate a safe transition out of the hospital. Subjective: Patient seen today postoperatively, states she is doing ok. Her breathing already feels easier. She does have some discomfort specifically at CT site. No N/V, abdominal pain. Asking if she can eat, trauma resident came into room while I was leaving and will place diet order. Reviewed most recent trauma progress note, CBC and BMP. Physical Exam: BP (!) 144/70 Pulse 99 Temp 98.7 degrees F (37.1 degrees C) Resp (!) 19 Ht 5' 6 Wt 81.6 kg (180 lb) LMP (LMP Unknown) SpO2 100% BMI 29.05 kg/m General: NAD Eyes: EOMI ENT: neck supple Cardiovascular: Regular rate. Respiratory: diminished in right, unlabored, +CT Gastrointestinal: Soft, non tender Musculoskeletal: No BLE edema. Skin: warm, dry Neuro: Alert. No focal deficits Psych: Mood appropriate. Current Medications: acetaminophen 1,000 mg Intravenous Q8H acetaminophen 975 mg Oral Q6H DAIN amLODIPine 5 mg Oral QAM enoxaparin (LOVENOX) injection 30 mg Subcutaneous BID fluticasone furoate 1 puff Inhalation Daily furosemide 40 mg Oral Daily gabapentin 300 mg Oral Q8H DAIN lidocaine 1 patch Transdermal Daily lisinopriL 20 mg Oral Daily with lunch montelukast 10 mg Oral QAM polyethylene glycol 17 g Oral BID senna-docusate 1 tablet Oral BID sertraline 50 mg Oral QAM Labs, Imaging and Studies reviewed: Results from last 7 days (more content not included)... [facility] 08-09-2024 Note Date: 08/09/2024 Patient name: Matthew Perez Date Of : 1955 Admit Date: 08/06/2024 Acute pain due to trauma Overview Reason For Hospitalization: ICD-10 G89.11 Matthew Perez presented 08/06/2024 to [place] ED 08/05/2024 for fall from standing, found to have fractured right ribs 4-8, small pneumothorax. Transferred to [facility] 08/06/2024 for trauma evaluation. Pain Management consulted to assist with pain control. Trauma following- Worsening pneumothorax. Conservative management planned for now. Assessment: Matthew is POD #0 RIGHT RIB FIXATION, RIGHT CHEST TUBE PLACEMENT, INTERCOSTAL NERVE BLOCK Matthew is laying in bed alert, oriented, and appears uncomfortable. Recently returned to unit from OR. Reports 10/10 pain to right rib cage, incision, chest tube site. Hurts to breathe. Reporting suboptimal pain relief currently. Offered adjustments to medication regimen, patient in agreement with plan. Encouraged the use of oral pain medication vs IV pain medication for greater efficacy and duration of pain coverage. Suspect pain control may be challenging given long history of high dose narcotic use. Previous: Chronic regimen: Clonazepam 1 mg BID and Percocet 10-325 mg. She reports taking 2 Percocet every 8 hours. She also has a morphine pump per Dr. Farr of [facility]. Patient reports multiple falls at home recently as well as episodes of sleep walking. Per daughter, frequency of falls has increased over the past few months. Discussed talking with prescriber (PCP) about weaning her off clonazepam as combination of clonazepam and narcotics could be contributing to her falls and is a dangerous combination. States she does not notice a difference in anxiety with clonazepam. Plan: Adjust Oxycodone to 20 mg PO Q4H PRN, caution sedation Start Dilaudid 0.5-1.5 mg IV Q3H PRN, caution sedation Continue Robaxin 500 mg PO TID PRN Continue clonazepam 0.5 mg PO BID PRN, chronic regimen 1 mg BID, consider weaning further Continue Lidocaine patch to right rib area Q12H Continue Tylenol 650 mg PO Q4H PRN Continue morphine pump, settings below Start Ketamine drip at 0.1 mg/kg/hr Please note that this is an opiate-sparing, sub anesthetic protocol. Protocol to run 5-7 days and titrations are not to be made for a minimum of 24 hours after initiation with maximum upward titration of 0.3 mg/kg/hr after day 3. Stop infusion for pulse >110, SBP > 25% than baseline, sustained respirations <7, or increased sustained agitation Of note: Ketamine can be stopped on day 7 or day of discharge, whichever comes first and does not require titration No NSAIDs (allergy) Discontinued/Completed Therapies N/A Acute Findings/Imaging/Procedures RIGHT RIB FIXATION, RIGHT CHEST TUBE PLACEMENT, INTERCOSTAL NERVE BLOCK 08/09/2024 XR Chest 1 View- 08/06/24 IMPRESSION: 1. Persistent small right pneumothorax which appears slightly increased in size compared to the prior examination. 2. Suspected small pleural effusion with bibasilar opacities that could represent atelectasis, aspiration changes, and/or pneumonia. Disposition/Ongoing Plan: Follow up with chronic pain provider Dr. Farr Per pharmacy: Patient's morphine pump was last filled on 07/13/24. Patient is next scheduled for visit on 09/20/24 for a pump refill. Office staff relays patient's pump delivers 1mg every 24 hours, but was unable to receive any documentation from office (requested via fax) to verify. 's office number [phone] Substance Use History: Tobacco Use: Did not review at this time EtOH Use: Did not review at this time THC/CBD Use: Did not review at this time Illicit Substance Use: Did not review at this time Obtain/Use Medications not prescribed to you: Did not review at this time OARRS Reviewed: 08/02/2024 08/02/2024 1 Oxycodone-Acetaminophen 10-325 180.00 30 Br Hin [id number] Kro ([id number]) 0 90.00 [place] 07/18/2024 03/28/2024 2 Clonazepam 1 Mg Tablet 60.00 30 Br Hin [id number] Wal (1409) 1 4.00 LME [place] 06/29/2024 06/25/2024 1 Oxycodone-Acetaminophen 10-325 180.00 30 Br Hin [id number] Kro ([id number]) 0 90.00 [place] 06/13/2024 06/13/2024 2 Duramorph 5 Mg/10 Ml Ampul 10.00 1 Ay Bas [id number] Zavala (7566) 0 15.00 MME [place] 05/30/2024 05/30/2024 1 Oxycodone-Acetaminophen 10-325 180.00 30 Ra Goy [id number] Kro ([id number]) 0 90.00 [place] 04/26/2024 04/24/2024 2 Oxycodone-Acetaminophen 10-325 180.00 30 Br Hin [id number] Wal (1409) 0 90.00 [place] 03/28/2024 03/28/2024 2 Clonazepam 1 Mg Tablet 60.00 30 Br Hin [id number] Wal (1409) 0 4.00 LME [place] 03/27/2024 03/26/2024 2 Oxycodone-Acetaminophen 10-325 180.00 30 Br Hin [id number] Wal (1409) 0 90.00 [place]ME [place] 02/28/2024 02/27/2024 2 Oxycodone-Acetaminophen 10-325 180.00 30 Br Hin [id number] Wal (1409) 0 90.00 [place]ME [place] 01/30/2024 01/24/2024 2 Oxycodone-Acetamino (more content not included)... [facility]08[facility]24 Matthew Perez 1955 [id number] Assessment/Plan: Matthew Perez is a 69 y.o. female with a PMHx of HTN, HFpEF, prior spinal surgeries and chronic pain. She presented to [place] ED 08/05/2024 for fall from standing, found to have fractured right ribs 4-8, small pneumothorax. Transferred to [facility] 08/06/2024 for trauma evaluation. Traumatic right hemopneumothorax: CT chest 08/06/2024 with small acute right non-dependent anterior pneumothorax. Continued pulmonary hygiene. Trauma primary, no indication for chest tube at this time. Continued daily CXR. Multiple right rib fractures: Admit imaging with multiple acute nondisplaced anterior/anterolateral fractures of right ribs 4-8. Continue multimodal pain control. Trauma primary, conservative management at this time. Acute Hypoxic Respiratory Insufficiency: required up to 2L NC in setting of above. Encouraged IS, wean supplemental oxygen as able. Dizziness: Noted in ED report, but patient denied. Did have dizziness/vertigo episodes 3 years [employer], denied recurrence. EKG 08/06/2024 with NSR, nonischemic. Troponin <7. Monitor on telemetry. Recommend avoiding home sleep aid/caffeine stimulants; judicious opiates/Klonopin use - consider weaning off chronic benzo as outpatient. OVS when able. Fall: Hx of frequent falls. Fell from standing due to dizziness while raking leaves. Injuries as discussed. PT/OT as able. Abnormal CT thoracic spine: admit imaging with several old compression fractures of thoracic spine, no evidence of acute fractures. Recommend following up outpatient. Chronic pain syndrome: per history. In setting of multiple spinal surgeries as below. On chronic oxygen, also with morphine pump with Dr. Farr (pain management). Pain management following. Hx lumbar posterior fusion with lumbar spinal stimulator: 07/[address] Landry ([facility]). Also with prior ACDF C7-T1. Continue OP follow up. Chronic HFpEF: TTE 06/28/23 with LVEF 67%, grade 1 diastolic dysfunction. Euvolemic on exam 08/08/24. Hypertension: Continued lisinopril, Lasix, reduced amlodipine until further trends. OVS pending as above. Asthma: per history. On home Qvar, Singulair, albuterol as needed. Continue analogous home inhalers. Anxiety: with benzo dependence. Home klonopin resumed at reduced dose, recommend attempting to wean completely off as outpatient given possibly contributing to falls. History of PE s/p IVC: Recent IVC placement. Denied taking Eliquis. Would continue at least ASA when able. Recommend OP follow up regarding AC/IVC retrieval. Code status: Full unverified DVT Prophylaxis: SCDs Thank you for allowing us to participate in the care of your patient. For any questions, please call the number of the covering hospitalist listed under the treatment team in care [facility]. Current living situation: home Expected Disposition: suspect same, therapy consulted Estimated discharge date: TBD I reviewed the patient's medications and noted those which may be inappropriate for their age and condition; I also provided recommendations to prevent, identify, and treat dementia, depression and delirium. We will collaborate with the multidisciplinary team to determine the patient's goals of care, status of advanced directives, and identification of a proxy decision maker, if needed. We will screen for mobility limitations and assure early, frequent, and safe mobility to help facilitate a safe transition out of the hospital. Subjective: Patient seen at bedside this morning. She is laying in the dark with a washcloth over her eyes. States she is having a headache but that she just spoke with pain management who is going to order her medication for it - Esgic per chart review. Patient states rib pain is the same today, feels like she cannot take a deep breath because of the pain. Denies chest pain, N/V or abdominal pain. Reviewed pain management progress note from today. Reviewed most recent CBC, BMP. Personally reviewed most recent CXR images - small PTX still present. Physical Exam: BP 116/64 (BP Location: Right arm, Patient Position: Lying) Pulse 77 Temp 98 degrees F (36.7 degrees C) (Oral) Resp 15 Ht 5' 6 Wt 81.6 kg (180 lb) LMP (LMP Unknown) SpO2 90% BMI 29.05 kg/m General: NAD Eyes: EOMI ENT: neck supple Cardiovascular: Regular rate. Respiratory: Clear to auscultation, unlabored Gastrointestinal: Soft, non tender Musculoskeletal: No BLE edema. Skin: warm, dry Neuro: Alert. No focal deficits Psych: Mood appropriate. Current Medications: amLODIPine 5 mg Oral QAM enoxaparin (LOVENOX) injection 30 mg Subcutaneous BID fluticasone furoate 1 puff Inhalation Daily furosemide 40 mg Oral Daily gabapentin 300 mg Oral Q8H DAIN lidocaine 1 patch Transdermal Daily lisinopriL 20 mg Oral Daily with lunch montelukast 10 mg Oral QAM polyethylene glycol 17 g Oral (more content not included)... [facility] 08-08-2024 Note Date: 08/08/2024 Patient name: Matthew Perez Date Of : 1955 Admit Date: 08/06/2024 Acute pain due to trauma Overview Reason For Hospitalization: ICD-10 G89.11 Matthew Perez presented 08/06/2024 to [place] ED 08/05/2024 for fall from standing, found to have fractured right ribs 4-8, small pneumothorax. Transferred to [facility] 08/06/2024 for trauma evaluation. Pain Management consulted to assist with pain control. Trauma following- Worsening pneumothorax. Conservative management planned for now. Assessment: Matthew is laying in bed with a cool washcloth on her forehead, lights dim. Alert, oriented, and in NAD. States she has a headache that started yesterday evening. Usually takes a caffeine pill for this at home. Discussed trying an ESGIC tablet, patient in agreement. Overall pain to right rib area is unchanged. Per MAR review, patient not utilizing PRN pain medication as often as available. Conservative treatment for rib fractures per trauma, monitoring right pneumo. Previous: OARRS reviewed. Chronic regimen: Clonazepam 1 mg BID and Percocet 10-325 mg. She reports taking 2 Percocet every 8 hours. She also has a morphine pump per Dr. Farr of [facility]. Last fill 06/13/24. Patient reports multiple falls at home recently as well as episodes of sleep walking. Per daughter, frequency of falls has increased over the past few months. Discussed talking with prescriber (PCP) about weaning her off clonazepam as combination of clonazepam and narcotics could be contributing to her falls and is a dangerous combination. States she does not notice a difference in anxiety with clonazepam. Plan: Start ESGIC tablet PO Q6H PRN for headache Continue Robaxin 500 mg PO TID PRN Continue clonazepam 0.5 mg PO BID PRN, chronic regimen 1 mg BID, consider weaning further Continue Oxycodone 10 mg PO Q4H PRN, chronic regimen Percocet 20 mg Q8H Continue Lidocaine patch to right rib area Q12H Continue Tylenol 650 mg PO Q4H PRN Discontinued/Completed Therapies N/A Acute Findings/Imaging/Procedures XR Chest 1 View- 08/06/24 IMPRESSION: 1. Persistent small right pneumothorax which appears slightly increased in size compared to the prior examination. 2. Suspected small pleural effusion with bibasilar opacities that could represent atelectasis, aspiration changes, and/or pneumonia. Disposition/Ongoing Plan: TBD Substance Use History: Tobacco Use: Did not review at this time EtOH Use: Did not review at this time THC/CBD Use: Did not review at this time Illicit Substance Use: Did not review at this time Obtain/Use Medications not prescribed to you: Did not review at this time OARRS Reviewed: 08/02/2024 08/02/2024 1 Oxycodone-Acetaminophen 10-325 180.00 30 Br Hin [id number] Kro ([id number]) 0 90.00 [place] 07/18/2024 03/28/2024 2 Clonazepam 1 Mg Tablet 60.00 30 Br Hin [id number] Wal (6409) 1 4.00 LME [place] 06/29/2024 06/25/2024 1 Oxycodone-Acetaminophen 10-325 180.00 30 Br Hin [id number] Kro (2236) 0 90.00 [place] 06/13/2024 06/13/2024 2 Duramorph 5 Mg/10 Ml Ampul 10.00 1 Ay Bas [id number] Zavala (5563) 0 15.00 MME [place] 05/30/2024 05/30/2024 1 Oxycodone-Acetaminophen 10-325 180.00 30 Ra Goy [id number] Kro (8086) 0 90.00 [place] 04/26/2024 04/24/2024 2 Oxycodone-Acetaminophen 10-325 180.00 30 Br Hin [id number] Wal (1409) 0 90.00 [place] 03/28/2024 03/28/2024 2 Clonazepam 1 Mg Tablet 60.00 30 Br Hin [id number] Wal (1409) 0 4.00 LME [place] 03/27/2024 03/26/2024 2 Oxycodone-Acetaminophen 10-325 180.00 30 Br Hin [id number] Wal (1409) 0 90.00 [place] 02/28/2024 02/27/2024 2 Oxycodone-Acetaminophen 10-325 180.00 30 Br Hin [id number] Wal (1409) 0 90.00 [place] 01/30/2024 01/24/2024 2 Oxycodone-Acetaminophen 10-325 180.00 30 Br Hin [id number] Wal (1409) 0 90.00 [place] 01/01/2024 12/29/2023 2 Oxycodone-Acetaminophen 10-325 180.00 30 Br Hin [id number] Wal (1409) 0 90.00 [place] 12/03/2023 11/23/2023 2 Oxycodone-Acetaminophen 10-325 180.00 30 Br Hin [id number] Wal (1409) 0 90.00 [place] 11/25/2023 11/25/2023 1 Oxycodone-Acetaminophen 10-325 45.00 7 Br Hin [id number] Kro (4686) 0 96.43 [place]ME [place] 10/28/2023 10/27/2023 1 Oxycodone-Acetaminophen 10-325 180.00 30 Br Hin [id number] Kro (8644) 0 90.00 MME [place] 09/29/2023 08/13/2023 1 Clonazepam 1 Mg Tablet 60.00 30 Br Hin [id number] Kro (0443) 1 Chief Complaint/Reason for Visit: 1. Traumatic fracture of ribs of right side with pneumothorax 2. Fall, initial encounter 3. Multiple fractures of ribs, right side, initial encounter for closed fracture History of Present Illness: Matthew Perez is a 69 y.o. y/o female presenting 08/06/2024 to [place] ED 08/05/2024 for fall from standing, found to have fractured right ribs 4-8, small pneumothorax. Transferred to [facility] 08/06/2024 for trauma evaluation. During rounding visit 08/08/2024 M (more content not included)... [facility] 08-08-2024 Note Attestation signed by Dorinda Cobb MD at 08/08/2024 8:31 PM I saw and evaluated the patient in the morning of 08-08-2024. Patient is a 69-year-old female with multiple medical problems. She is status post fall on 08-05 when she was outside raking [email or web address]. She subsequently was transferred to [place] from [place] due to right sided rib fractures and traumatic pneumothorax. She continues to have persistent right sided pneumothorax as well as pain. Patient states that pain has been fairly consistent ever since she has been at the hospital. She states she is having some shortness of breath particularly with movement. In addition to shortness of breath she does have severe right sided chest wall pain whenever she moves her self in bed, takes a deep breath, or tries to ambulate. She is not able to use the incentive spirometer anymore. Labs and imaging reviewed. CT scan shows acute displaced rib fractures of the right anterolateral chest wall. On physical exam she is uncomfortable but not in any apparent distress. No evidence of neurologic deficits. Symmetric chest wall expansion, but ceases during expiration due to degree of pain. Abdomen is soft, nondistended, nontender to palpation. Risks and benefits of surgery discussed as it relates to right sided chest wall fixation due to severe chest wall trauma. She continues to have severe pain despite multimodal pain therapy as well as respiratory insufficiency. After lengthy discussion about the risks and benefits of operative versus nonoperative management, she would like to proceed with operative management. Will plan for surgical intervention with right sided chest wall reconstruction, rib plating, chest tube placement, and intercostal nerve block later today. [facility] Progress Note Patient Information Patient Name: Matthew Perez Age/Sex: 69 y.o., female : 1955 Date of evaluation: 08/08/2024 Code Status: Full Code - Unverified Discussed with Trauma Attending Dr. Cobb on rounds - Agreed with plan of care Ongoing Assessment: Matthew Perez 69 y.o. female with a past medical history of Asthma, HTN, Depression, Migraines, Arthritis, Varicose veins of both lower extremities, Obesity, Fibromyalgia, Restless Leg Syndrome, GERD, Spinal stenosis, Anxiety, AYO, that presented to [facility] from [facility] on 08/06/24 s/p Fall with a Chief Complaint of right rib pain. 08/05/2024 the patient was reportedly out raking her leaves when she was dizzy and she fell hitting her right side. Patient did not hit head, and did not have LOC. AC/AP use: denies use of AC/AP meds. Tx from [facility] ED due to imaging revealed Right 4-8 rib fractures, and right traumatic hemopneumothorax. Patient admitted to Trauma Service. Medicine consulted. Rpt CXR with continued pneumothorax. AM CXR was repeated that did show a slightly worsened PTX. No current indication for chest tube. Rib plating was discussed with patient however will try conservative management and pain control first. Patient to work with therapies. Over night effects: n/a Plan: - Therapy and dispo - Rpt CXR in AM improved to 1.7 from 1.8 yesterday. Still on 3L NC. - rCXR in am - Wean O2 as able - Aggressive pulmonary toilet - Medicine recs - Dr. Cobb to discuss with pt possible rib plating, NPO for now Tertiary exam: completed Consults: Medicine (Geriatric Focused), pain management Spine clearance status: - Cervical spine is cleared - TLS spine are cleared WB Status: No restrictions Diet: Regular diet DVT prophylaxis: Lovenox sq and SCDs Therapy: PT: 2-3, OT: 5-7 CM/SW consulted: Dispo plan - pending Ready for discharge from trauma standpoint? No [facility]: unknown Injuries/Active Problems: - Rib Fx - right anterolateral 4-8 ribs, Likely NOM. Discussed rib plating with patient that she has 2 mildly displaced fractures and would benefit from conservative treatment first. O2 goal > 92%, pulmonary hygiene, pulling 1000 on IS, rib fractures secondary to osteopenia that alone not caused by trauma - Traumatic Right Hemopneumothorax - Right apical PTX and right anterior 1.5 cm PTX with small right GUERO, 6hr follow up CXR showed 1.6 cm PTX. AM CXR: PTX decreased to 1.7 from 1.8 yesterday. O2 goal > 92%, pulmonary hygiene, chest tube is not needed at this time. Low threshold to repeat CXR if worsening shortness of breath or increased O2 requirement. - Dizziness prior to fall - Medicine consulted for work-up, appreciate recs. OVS when able. Hx of dizziness/vertigo 3 years ago. - Abnormal CT Scan Thoracic spine - mild compression fx of T7 and T8 SEP which are unchanged since prior examination. mild compression fx T9 inferior endplate which is stable and also changes of ve (more content not included)... [facility] 08-07-2024 Note [facility] In[facility]elle Note 08/07/2024 Matthew Perez 1955 [id number] Assessment/Plan: Matthew Perez is a 69 y.o. female with a PMHx of HTN, HFpEF, prior spinal surgeries and chronic pain. She presented to [place] ED 08/05/2024 for fall from standing, found to have fractured right ribs 4-8, small pneumothorax. Transferred to [facility] 08/06/2024 for trauma evaluation. Traumatic right hemopneumothorax: CT chest 08/06/2024 with small acute right non-dependent anterior pneumothorax. Continued pulmonary hygiene. Trauma primary, no indication for chest tube at this time. Multiple right rib fractures: Admit imaging with multiple acute nondisplaced anterior/anterolateral fractures of right ribs 4-8. Continue multimodal pain control. Trauma primary, conservative management at this time. Acute Hypoxic Respiratory Insufficiency: required up to 2L NC in setting of above. Encouraged IS, wean supplemental oxygen as able. Dizziness: Noted in ED report, but patient denied. Did have dizziness/vertigo episodes 3 years [employer], denied recurrence. EKG 08/06/2024 with NSR, nonischemic. Troponin <7. Monitor on telemetry. OVS when able. Recommend avoiding home sleep aid/caffeine stimulants; judicious opiates/Klonopin use - consider weaning off chronic benzo as outpatient. Fall: Hx of frequent falls. Fell from standing due to dizziness while raking leaves. Injuries as discussed. PT/OT as able. Abnormal CT thoracic spine: admit imaging with several old compression fractures of thoracic spine, no evidence of acute fractures. Recommend following up outpatient. Chronic pain syndrome: per history. In setting of multiple spinal surgeries as below. On chronic oxygen, also with morphine pump with Dr. Farr (pain management). Pain management following. Hx lumbar posterior fusion with lumbar spinal stimulator: 07/[address] Landry (Ortho Spine). Also with prior ACDF C7-T1. Continue OP follow up. Chronic HFpEF: TTE 06/28/23 with LVEF 67%, grade 1 diastolic dysfunction. Euvolemic on exam 08/07/24. Hypertension: Continued lisinopril, Lasix, reduced amlodipine until further trends. OVS pending as above. Asthma: per history. On home Qvar, Singulair, albuterol as needed. Continue analogous home inhalers. Anxiety: with benzo dependence. Home klonopin resumed at reduced dose, recommend attempting to wean completely off as outpatient given possibly contributing to falls. History of PE s/p IVC: Recent IVC placement. Denied taking Eliquis. Would continue at least ASA when able. Recommend OP follow up regarding AC/IVC retrieval. Code status: Full unverified DVT Prophylaxis: SCDs Thank you for allowing us to participate in the care of your patient. For any questions, please call the number of the covering hospitalist listed under the treatment team in care connect. Current living situation: home Expected Disposition: suspect same, therapy consulted Estimated discharge date: TBD I reviewed the patient's medications and noted those which may be inappropriate for their age and condition; I also provided recommendations to prevent, identify, and treat dementia, depression and delirium. We will collaborate with the multidisciplinary team to determine the patient's goals of care, status of advanced directives, and identification of a proxy decision maker, if needed. We will screen for mobility limitations and assure early, frequent, and safe mobility to help facilitate a safe transition out of the hospital. Subjective: Patient seen at bedside today with family member present. She is tearful, upset that she has hurt herself so she cannot get around as good as normal. She denies feeling dizzy prior to fall that caused injuries. States she just lost her balance. She is having rib pain, increased when she tries to take a deep breath. She denies N/D, abdominal pain. Reviewed most recent CBC, BMP. Reviewed most recent trauma and pain management notes. Physical Exam: BP 137/89 Pulse 90 Temp 99 degrees F (37.2 degrees C) (Oral) Resp 16 Ht 5' 6 Wt 81.6 kg (180 lb) LMP (LMP Unknown) SpO2 (!) 86% BMI 29.05 kg/m General: NAD Eyes: EOMI ENT: neck supple Cardiovascular: Regular rate. Respiratory: Clear to auscultation, unlabored Gastrointestinal: Soft, non tender Musculoskeletal: No BLE edema. Skin: warm, dry Neuro: Alert. Psych: Mood appropriate. Current Medications: amLODIPine 5 mg Oral QAM enoxaparin (LOVENOX) injection 30 mg Subcutaneous BID fluticasone furoate 1 puff Inhalation Daily furosemide 40 mg Oral Daily lidocaine 1 patch Transdermal Daily lisinopriL 20 mg Oral Daily with lunch montelukast 10 mg Oral QAM polyethylene glycol 17 g Oral Daily senna-docusate 1 tablet Oral BID sertraline 50 mg Oral QAM Labs, Imaging and Studies reviewed: Results from last 7 days Lab Units 08/07/24 0323 08/06/24 1159 08/05/242034 WBC K/mcL 8.50 8.57 7.29 HGB g (more content not included)... [facility] 08-06-2024 Note Trauma Service Geria tric Evaluation Note Demographic/Patient Information: Patient Name: Matthew Perez Age/Sex: 69 y.o., female : 1955 Date of evaluation: 08/06/2024 Code Status: Prior This note is to document screening for vulnerable geriatric injured patients who need further involvement of a geriatric specialist. Screening Criteria 1: Identification of Seniors at Risk (ISAR) If the response to two or more of the following questions is yes, a focused geriatric consultation should be obtained: Before you were injured, did you need someone to help you on a regular basis?No Since the injury, have you needed more help than usual to take care of yourself? Yes Have you been hospitalized for one or more nights during the past six months? No In general, do you have problems seeing well? No In general, do you have serious problems with your memory? No Do you take more than three different medications every day? Yes 2: Confusion Assessment Method (CAM) Completed for all patients > 65 years of age If the score of positive for delirium, a focused geriatric consult should be obtained: CAM SCORE: negative Geriatric Focused Evaluation A geriatric focused evaluation should be obtained for all injured patients 65 years of age or older with a ISAR score of >= 2 or CAM screen positive for delirium. Geriatric Focused Evaluation is indicated Completed by [facility] or [facility] service after EPIC consult order entered by the trauma service. AUTHENTICATED BY BALDOMERO MATOS ON 08/06/2024 12:34:38 [facility] 04-11-2024 Telephone encounter Note LVM for patient to schedule SPEECH CLINICIAN visit with Dr Li. Diagnosis is nausea. Dr Li is booking out into September [facility] 04-11-2024 Miscellaneous Notes LVM for patient to schedule SPEECH CLINICIAN visit with Dr Li. Diagnosis is nausea. Dr Li is booking out into September Faxed referral received with AMIRAH from PCP - scanned into chart Please assist with scheduling OV with Dr. Li. Thank you! documented in this encounter [facility] 04-11-2024 Telephone encounter Note Faxed referral received with AMIRAH from PCP - scanned into chart Please assist with scheduling OV with Dr. Li. Thank you! [facility] 01-05-2024 History of Presen t illness Narrative [facility] DAILY TREATMENT NOTE Today's Date 01/05/2024 Patient Name: Matthew Perez Date of : 1955 Current Visit #: 01/09 Authorized Visits: [id number] Case Name: gait instability History: Pre-Treatment Pain Scale: 7 Symptoms: no change Functional Diagnosis: 1. Abnormality of gait 2. Debility 3. Pleuritic chest pain Clinical Information: Subjective: Patient states that she saw Dr. Fraga yesterday to evaluate her spine, with an ongoing T9 compression fracture noted. Patient was not too happy with her consult and is planning to transition to a pain management doctor for consult regarding her pain. She is planning to get a pain pump. Objective Treatments: Physical Therapy Exercise Log - 01/05/24 1334 OTHER Precautions/Contraindications high fall risk, COPD, R JUAN, R TKA, HTN, tinnitus, neuropathy, varicose veins, lumbar fusion x4 Notes POC; 12 visits 2x/wk Vitals [id number] Therapeutic Exercise (66826) Intervention scifit stepper lv 1 for 6 min Parameters standing heel and toe raisesx 30 ea BUE support Intervention standing december x15-20 ea Parameters standing hip ROM 3 way x15 ea with BUE support with blue foam Intervention seated hip abduction red TB x20 3 sec hold Parameters seated ball squeeze between the knees 20x 5 sec hold Intervention seated LAQ x 20 ea 3 sec hold Parameters standing mini squats x20 - VCs for hip hinge Intervention -- Parameters -- PT Treatment Times Therex Total Time 40 Direct Treatment Time 40 Total Treatment Time 40 Goals: Physical Therapy Ortho Goals: IE: 12/16/23 POC: 12 visits 2x/wk 1. Patient will be independent with HEP to maintain gains from formal PT services in 3 weeks. 2. Patient will execute at least 14 reps of STS transfers in 30 seconds for ease of transfers at home and in the community in 6 weeks. 3. Patient will increase BLE strength in all planes to at least 4+/5 to aid in normalized gait mechanics in 6 weeks. 4. Patient will improve Tobias Balance score by at least 5 points to minimize risk of falls in 6 weeks. 5. Patient improve DGI by at least 5 points to improve gait mechanics at home and in the community in 6 weeks. HEP 12/16/[address] hip ROM, STS transfers Patient Education: Quality of movement, HEP Adherence, Diagnosis and recovery specific education, and Pain Management with patient demonstrated understanding and verbalized understanding. Post-Treatment Pain Scale: 7 Assessment: Patient had an expected response to treatment. Therapist had patient complete standing exercises to facilitate load acceptance and improve balance strategies. Patient did require a seated rest break due to increased fatigue within her BLEs. No increase in her leg pain was noted overall, although execution of mini squat increased anterior knee pain some. By end of session patient noted fatigue overall, with more exaggerated gait compensations with increased RLE ER and lateral trunk flexion. Skilled Intervention demonstrated by modifications of treatment per exercise log including increased load, increased rate, plane progressions, increased intensity, increased volume, and assessment of patient's response and safety interventions per exercise log. Progress towards goals as expected. Plan for Next Visit: Treatment Visit with focus on continuing to increase standing tolerance to improve balance strategies such as foam taps, lateral stepovers, and anterior stepovers as tolerated. Selene Miller PT STATE LICENSE, [id number] documented in this encounter [facility] 01-04-2024 History of Presen t illness Narrative Matthew Perez 1955 Post Op Follow Up Note Assessment/Plan: Problem List Items Addressed This Visit Other Status post lumbar spinal fusion T10-L2 10/19/23 - Primary Relevant Orders Ambulatory Ref to [facility] (PT/OT/ST) She appears to have pain associated with the local kyphosis related to her T9 compression fracture above her fusion with T9-10 degenerative change. Management options were discussed. Non-operative alternatives were reviewed and discussed. The nature of surgical options available were described. The elective nature of the procedures, the full range of risks and potential complications, and the limited success probabilities with surgery were discussed, and all questions were answered. She is considering her options and will call if she wishes to proceed with surgery. At this point she is interested in pursuing physical therapy which is prescribed. Return for further surgical discussion or scheduling as requested. Clinical Findings: Subjective Matthew Perez presents to the clinic following surgery:Decompression Thoracic 12-Lumbar1, [id number] 1 Discectomy, Interbody fusion, fixation Thoracic 10-Lumbar5, CT BUCK, Local Bone, Posteriorlateral Fusion Thoracic 10-Lumbar2, cement augmentation Thoracic 10 (08/18/23). Assessment - 01/04/24 1412 Pain Assessment Pain Assessment 0-10 0-10 DVPRS 8/10 Pain Location Back Pain Orientation Mid;Lower Pain Descriptors Aching;Sharp Pain Frequency Continuous Pain Onset On-going Aggravating Factors Bending;Standing;Walking Result of Injury Yes Fell 10-25-23 Work-Related Injury No Following surgery we noted the development of a T9 compression fracture. She has had pain at the site since that time. We previously offered vertebroplasty at that level which she declined. Since that time she has had continued pain exacerbations at the site. Her pain is localized to approximately the T9 level although this does radiate caudally. She is seeing a pain specialist and a pain pump has been offered. She has not had any recent physical therapy. She uses topical diclofenac elsewhere. She is not having distal radicular pain weakness or loss of sensation. She has a current medication list which includes the following prescription(s): albuterol, amlodipine, apixaban, aspirin, beclomethasone, clonazepam, cyclobenzaprine, diclofenac sodium 1%, furosemide, gabapentin, glucosamine/chondr pabon a sod, lisinopril, magnesium gluconate, montelukast, naloxone, NONFORMULARY, NONFORMULARY, ropinirole, and sertraline. Past Medical History: Diagnosis Date Anxiety Arthritis osteo Asthma 08/23/2014 Back pain Cardiomyopathy (HCC) resolved (EF 45% per cath 09/21/2006; EF 55-60% per echo 04/16/2019). Depression Diastolic dysfunction mild per echo on 06/08/2019 Edema Fibromyalgia, primary GERD (gastroesophageal reflux disease) patient denies History of echocardiogram Hypertension 04/01/2015 Migraines Obesity AYO (obstructive sleep apnea) cannot tolerate C-Pap Pneumonia x2 , had 2 pneumonia shots Restless legs syndrome Saphenous vein clot superficial LLE Shoulder joint pain Spinal stenosis Varicose veins of both lower extremities Past Surgical History: Procedure Laterality Date ANTERIOR CERVICAL DISCECTOMY 02/25/2009 C5-6, C6-7 AR'SCOPY SHOULD SAD, SLAP, RCR, RESECT DISTAL CLAVICLE, BICEPS TENODESIS Right 11/04/2015 ARTHROPLASTY HIP TOTAL Right 02/27/2018 Procedure: RIGHT TOTAL HIP ARTHROPLASTY; Surgeon: Gabo Sears MD; Location: [facility] Main OR; Service: Orthopedic BLADDER SUSPENSION BRONCHOSCOPY CARDIAC CATHETERIZATION Bilateral 09/21/2006 COLONOSCOPY CV IR INTERVENTIONAL RADIOLOGY N/A 08/22/2023 Procedure: VR IVC Filter Insert; Surgeon: Lukas Beverly DO; Location: [facility] EP LAB; Service: Interventional Radiology CV IR INTERVENTIONAL RADIOLOGY N/A 10/07/2023 Procedure: VR IVC Filter Removal; Surgeon: Roxana Lopez MD; Location: [facility] VIDEO INTERN; Service: Interventional Radiology FOOT SURGERY Right 03/08/2005 Third interdigital neuroma excision, fourth metatarsal osteotomy w/capsulotomy, fifth metatarsal head excision HARDWARE REMOVAL ANTERIOR CERVICAL 07/22/2014 C5, C6-7 HARDWARE REMOVAL LUMBAR 01/02/2009 L5-S1 w/ redo decompression laminectomy HYSTERECTOMY CARLOS MANUEL BSO Bladder suspension KNEE ARTHROSCOPY W/ LASER Left 2014 LAMINECTOMY DECOMP LUMBAR W/FUSION 4 OR MORE LVL N/A 11/08/2017 Procedure: HARDWARE REMOVAL L4-S1, DECOMPRESSION/FUSION L2-L4, PLIF, REINSTRUMENT L2-S1; Surgeon: Alejo Hummel MD; Location: [facility] Main OR; Service: Orthopedic LAMINECTOMY DECOMP THORACIC W/FUSION 4 OR MORE LVL N/A 08/18/2023 Procedure: Decompression Thoracic 12-Lumbar1, [id number] 1 Discectomy, Interbody fusion, fixation Thoracic 10-Lumbar5, CT BUCK, Local Bone, Posteriorlateral Fusion Thoracic 10-Lumbar2, cement augmentation Thoracic 10; Surgeon: Jose Fraga MD; Location: [facility] Main OR; Service: Orthopedic LAMINECTOMY DISC ANTERIOR CERVICAL W/ FUSION SINGLE LEVEL N/A 03/13/2021 Procedure: Anterior cervical discectomy fusion cervical4-5 with plate and allograft; Surgeon: Jose Fraga MD; Location: [facility] Main OR; Service: Orthopedic LUMBAR LAMINECTOMY 10/11/2003 L5-S1 decompression w/interbody fusion bilateral and posterior fusion fixation LUNG BIOPSY Right ROTATOR CUFF REPAIR Left TONSILLECTOMY TOTAL KNEE ARTHROPLASTY Right WISDOM TOOTH EXTRACTION Allergies Allergen Reactions Duloxetine GI Intolerance Nausea Nsaids (Non-Steroidal Anti-Inflammatory Drug) GI Intolerance Ibuprofen GI Intolerance Lyrica [Pregabalin] Other (See Comments) nightmares Metformin GI Intolerance Objective BP 138/83 Pulse 95 Ht 5' 3 Comment: patient stated Wt 83 kg (183 lb) Comment: patient stated LMP (LMP Unknown) SpO2 93% BMI 32.42 kg/m General alert, appears stated age, cooperative, and no distress Spine Local She has a mild increase in kyphosis above her fusion. There is tenderness to firm palpation and she localizes her pain at that site. Wound Well-healed Motor Exam Lower extremity motor is strong and symmetric in all groups Gait/Balance slow and cautious walking, now without aid. Imaging: CT thoracic and lumbar spine 10/26/2023: Review of the images shows satisfactory alignment is satisfactory position of the hardware from T10 to the sacrum. No complications are seen within the area of her fusion. She has had the development of a compression fracture of T9 above the fusion that appears to be stable without progressive collapse although it clearly exhibits greater kyphosis in the upright position than when recumbent in the CT scan. The report: IMPRESSION: 1. No acute traumatic abnormality in the chest, abdomen, or pelvis. 2. No acute fracture in the thoracic and lumbar spine. Remote mild multilevel compression deformities in the thoracic spine. Posterior instrumented fusion spans lower thoracic-sacral spine, without appreciable hardware complication. CT cervical spine 10/26/2023: Review of the images shows a satisfactory fusion which appears solid and well remodeled from C4-T1. No complications are seen. No fractures are seen. Degenerative changes are seen elsewhere within the cervical spine without any significant canal compromise noted. The report: IMPRESSION: 1. No acute fracture or subluxation. 2. Postsurgical changes from C4-T1. Alignment is satisfactory. X-ray thoracic spine 10/18/2023: Review of the images shows the presence of local kyphosis at the upper end of her prior fusion related to an area of compression fracture. The report: IMPRESSION: Stable, mild anterior compression deformity of T9 and T10. Stable findings associated with thoracolumbar fusion with instrumentation. Stable findings associated with lower cervical fusion. No acute fracture or traumatic malalignment. X-ray lumbar spine 10/18/2023: Review of these images shows generally satisfactory appearance of all the fixation and overall satisfactory alignment down to the sacrum. Jose Fraga MD documented in this encounter [facility] 12-16-2023 History of Presen t illness Narrative [facility] Evaluation Today's Date 12/16/2023 Patient Name: Matthew Perez Date of : 1955 Case Name: gait instability Functional Diagnosis: 1. Abnormality of gait 2. Debility 3. Pleuritic chest pain Clinical Information: Subjective Patient accompanied by: unaccompanied History of Present Illness Date of Onset: 11/02/2023 Contemporary Medical History: COPD, sleep apnea, varicose veins, HTN, asthma, chronic pain syndrome, lumbar fusion x4, CHF, restless leg syndrome, fibromyalgia, tinnitus, BPPV Subjective History: Patient presents to PT services with c/o unsteady gait. Patient states that she is also having issues with her R hand as well and drifting with this. Patient states that with her balance since last Spring to end of Summer of last year she has fallen 3 times, with need to help assume a standing position. She states that she has bad knees making it hard to stand up and bad shoulders, as well, which she was told she may be replacements for these. She would like to avoids surgery with this. Patient states that one of her falls was so bad that it bruised her lunges and she was hospitalized for 3 days total due to it. Patient notes difficulty falling over her own feet as a whole. She will catch her toes on carpet and other surfaces, as well as navigating obstacles. She has a big dog at home and sometimes stumbles getting around him. She feels kindof crooked walking in a straight line at times. Sometimes with initial standing she will plop right back down and has to use support for this. Patient states that she has some circulation issues which bother her knees and calves, and she is having a procedure done to burn her veins there due to circulation issues. She also notes burning in the soles of her feet too which she is consulting with neurology about in the near future. She has also had 4 back fusion surgeries thus far with pinched nerves involved. Patient does not work and is at home. She like to swim but can't do this because of her shoulders. She used to like to dance and ride horses but cannot participate due to her back issues. She is mainly doing eating out and about and playing cards as she can sit to manage her pain. She typically uses a rollator at home but does not bring it out and about. She uses a cart with shopping tasks. Follow up: 01/16/24 Previous Treatment for this condition: No Overall rating of health: Good Pain Scale Pain location: knee and ankle/foot Average Pain: 7/10 Pain at highest: 9/10 Personal Goals: I would like to have a lot better balance and have my legs feeling better. Social Support: Adventist, social, or cultural considerations to be made aware of before starting treatment: No Home Environment Current Home Environment: unchanged Setup: multi-level house Entry: steps with railing Second floor: bedroom and full bath Do you feel safe at home? Yes Red Flags: trauma Comments: hx multiple falls Barriers to Care: Insurance, Chronicity or severity of impairments and Transportation Fall risk screening Fallen 2 or more times in the last 12 months: Yes Injured as a result of a fall in the last 12 months: Yes Adventist, social, or cultural considerations to be made aware of before starting treatment: No Lumbar Spine Gait: Comments: 30 sec STS transfers: BUE support with 11 reps completed Tobias Balance test: 37/56 moderate fall risk Dynamic Gait Index score: moderate fall risk Posture: reduced lordosis and thoracic posture normal Muscle Strength: Hip Flexion Right: 4 Left: 4 Knee extension Right: 4 Left: 4 Ankle DF Right: 4 Left: 4 Ankle PF Right: 4+ Left: 4+ Knee flexion Right: 4+ Left: 4+ Treatments: Physical Therapy Exercise Log - 12/16/23 0700 OTHER Precautions/Contraindications high fall risk, COPD, R JUAN, R TKA, HTN, tinnitus, neuropathy, varicose veins, lumbar fusion x4 Notes POC; 12 visits 2x/wk Vitals 8612-2401 Therapeutic Exercise (10552) Intervention standing 3 way hip ROM x20 ea LE 1 UE support Parameters STS transfers x20 no UE support PT Treatment Times Therex Total Time 8 Direct Treatment Time 8 Total Treatment Time 8 Treatment Plan: Frequency of Visits: twice per week Duration: 6 weeks Interventions: Therapeutic Exercise (79121), Neuromuscular Re-Education (55700), Manual Therapy (08470), Therapeutic/ Functional Activities (17392), Gait Training (83528), Aquatic Therapy (52220), Hot/Cold Pack (53508), Vasopneumatic (91344), and Dry Needling Rehab Potential: fair Goals: Physical Therapy Ortho Goals: IE: 12/16/23 POC: 12 visits 2x/wk 1. Patient will be independent with HEP to maintain gains from formal PT services in 3 weeks. 2. Patient will execute at least 14 reps of STS transfers in 30 seconds for ease of transfers at home and in the community in 6 weeks. 3. Patient will increase BLE strength in all planes to at least 4+/5 to aid in normalized gait mechanics in 6 weeks. 4. Patient will improve Tobias Balance score by at least 5 points to minimize risk of falls in 6 weeks. 5. Patient improve DGI by at least 5 points to improve gait mechanics at home and in the community in 6 weeks. HEP 12/16/[address] hip ROM, STS transfers Patient Education provided: Written HEP provided with visuals, Tcs, Vcs and demonstration to ensure carryover. Verbal understanding communicated by patient, with patient in agreement with plan. Clinical Impression: Patient presents to PT services with c/o unsteadiness with gait mechanics. Significant findings from evaluation include decreased BLE strength, functional strength, impaired balance strategies evident with Tobias Balance test score, as well as impaired gait mechanics evident with Dynamic Gait Index findings. Due to these findings patient is unable to execute community ambulation, STS transfers, steps or activities of interest without compensation or pain. Patient would benefit from PT services to increase BLE strength as well as functional strength, improve balance strategies,and improve gait mechanics as able so patient may return to PLOF. Prognosis may be influenced by multiple co-morbidities, and lack of improvement with PT services in the past. Next visit: review HEP, incorporate stepovers/step ups on step or foam for balance strategies and romberg movements with head motion as tolerated. May need multiple rest breaks due to B knee and B shoulder pain. Selene Miller, PT STATE LICENSE, [id number] This co-signature is to electronically certify that the above named patient, who is under my care, requires skilled therapy services as described in the above treatment plan. I further certify that the services outlined in this plan are skilled and medically necessary. I have reviewed this plan of care for rehabilitation services and recommend that these services continue from 12/16/2023 to 03/02/2024. documented in this encounter [facility] 10-28-2023 Hospital course Narrative [place] DISCHARGE SUMMARY Matthew Perez Admitted: 10/25/2023 Discharge Date: 10/28/23 PCP Handoff Recommended Outpatient Testing: F/U with PCP, Pain management Results Pending At Discharge: None Clinical Summary Matthew Perez is a 68 y.o. 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 Frequent Falls Intractable rib pain History of lumbar back pain Fall precautions Trauma barron scan: No acute traumatic abnormality in the chest, abdomen, or pelvis. No acute fracture in the thoracic and lumbar spine. No acute fracture or subluxation of the cervical spine. Postsurgical changes from C4-T1. Alignment is satisfactory. CT head with no evidence of acute intracranial hemorrhage or acute calvarial fracture. Tylenol, lidocaine patch Now transitioned to PO Percocet PRN Incentive spirometry Early ambulation SCDs Orthopedic surgery consulted for intercostal nerve block, but this is not available here Ortho spine follows patient, no procedure currently planned PT/OT/CM consulted and she is interested in potential placement if warranted Placement secured and pre-cert approved so discharged to SNF with prescription for short course of Percocet which was originally started on an outpatient basis History of PE s/p IVC Recent IVC placement. Continue Eliquis Asthma Continue home medication HTN Continue home medication Depression with anxiety Continue home medication Obesity Recommend lifestyle modifications after acute illness Discharge Medications Discharge Medications New Medications Details lidocaine 4 % patch Start taking on: October 29, 2023 Place 1 (one) patch on the skin daily Remove & Discard patch within 12 hours or as directed by MD Start: 10/29/23. Quantity: 30 patch naloxone 4 mg/actuation [address] Commonly known as: NARCAN Administer 1 spray into one nostril for known or suspected opioid overdose. If patient worsens or does not respond, may repeat in 2-3 minutes. . Quantity: 2 each Medications To Continue Details albuterol 90 mcg/actuation inhaler Commonly known as: Ventolin HFA Inhale 1 (one) puff every 6 (six) hours as needed for wheezing . Quantity: 1 Inhaler amLODIPine 10 MG tablet Commonly known as: NORVASC Take 1 (one) tablet (10 mg total) by mouth every morning . apixaban 5 mg Tab Commonly known as: ELIQUIS Take 2 (two) tablets (10 mg total) by mouth 2 (two) times a day for 6 days, continued through 08/30/23. Quantity: 26 tablet aspirin 81 MG EC tablet Take 1 (one) tablet (81 mg total) by mouth daily . beclomethasone 40 mcg/actuation inhaler Commonly known as: QVAR Inhale 2 (two) puffs 2 (two) times a day Rinse mouth . Quantity: 1 Inhaler clonazePAM 1 MG tablet Commonly known as: KLONOPIN Take 1 (one) tablet (1 mg total) by mouth 2 (two) times a day as needed for anxiety . cyclobenzaprine 5 MG tablet Commonly known as: FLEXERIL Take 1 (one) tablet (5 mg total) by mouth Three times daily as needed . diclofenac sodium 1 % Gel Apply 10 (ten) g topically 3 (three) times a day as needed . furosemide 40 MG tablet Commonly known as: LASIX Take 1 (one) tablet (40 mg total) by mouth daily . gabapentin 300 MG capsule Commonly known as: NEURONTIN Take 1 (one) capsule (300 mg total) by mouth every 8 (eight) hours (Days supply per fill: 30) . Quantity: 90 capsule lisinopriL 20 MG tablet Commonly known as: PRINIVIL,ZESTRIL Take 1 (one) tablet (20 mg total) by mouth every morning Reasons: high blood pressure. magnesium gluconate 27.5 mg magne- sium (500 mg) tablet Commonly known as: MAGONATE Take 1 (one) tablet (500 mg total) by mouth daily . montelukast 10 mg tablet Commonly known as: SINGULAIR Take 1 (one) tablet (10 mg total) by mouth every morning . NONFORMULARY Take 2 tablets by mouth every evening Equate sleep aide 25mg . NONFORMULARY Take 1 tablet by mouth daily as needed Equate stay awake 200mg . OSTEO BI-FLEX ORAL Take 1 tablet by mouth every morning . oxyCODONE-acetaminophen 10-325 mg per tablet Commonly known as: PERCOCET Take 2 (two) tablets by mouth every 4 (four) hours as needed for pain (Days supply per fill: 180 Reasons: pain. Quantity: 36 tablet rOPINIRole 2 MG tablet Commonly known as: REQUIP Take 1 (one) tablet (2 mg total) by mouth 3 (three) times a day as needed Reasons: restless legs syndrome, an extreme discomfort in the calf muscles when sitting or lying down. sertraline 50 MG tablet Commonly known as: ZOLOFT Take 1 (one) tablet (50 mg total) by mouth every morning . Physician(s) Follow Up: [facility] Address: [facility] [place] [address] Servicing Counties: [place] [phone] Harmony Gee MD [address] [id number] Schedule an appointment as soon as possible for a visit in 1 week(s) Condition at Discharge: Stable Disposition: SNF On day of discharge, I performed a final bedside evaluation including a physical exam. I reviewed discharge recommendations with the patient in person. Patient instructions, including activity, were given to the patient/family at discharge. Time spent on discharge: > 30 minutes Completed by: Rudolph Gómez on 10/28/23, 6:48 PM documented in this encounter [facility] 10-28-2023 History of Presen t illness Narrative [place] PROGRESS NOTE Assessment and Plan Matthew Perez is a 68 y.o. 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 Frequent Falls Intractable rib pain History of lumbar back pain Fall precautions Trauma barron scan: No acute traumatic abnormality in the chest, abdomen, or pelvis. No acute fracture in the thoracic and lumbar spine. No acute fracture or subluxation of the cervical spine. Postsurgical changes from C4-T1. Alignment is satisfactory. CT head with no evidence of acute intracranial hemorrhage or acute calvarial fracture. Tylenol, lidocaine patch Now transitioned to PO Percocet PRN Incentive spirometry Early ambulation SCDs Orthopedic surgery consulted for intercostal nerve block, but this is not available here Ortho spine follows patient, no procedure currently planned PT/OT/CM consulted and she is interested in potential placement if warranted Placement being pursued with backup for [facility] if precert denied History of PE s/p IVC Recent IVC placement. Continue Eliquis Asthma Continue home medication HTN Continue home medication Depression with anxiety Continue home medication Obesity Recommend lifestyle modifications after acute illness Discharge Planning Medically Stable for Discharge Date: 10/28 Patient requires continued hospitalization due to: Pain, potential placement Discharge Location: TBD Quality Measures DVT Prophylaxis: eliquis Michael Catheter: absent Code Status Full Subjective Mrs. Perez was resting in bed when I saw her. She continues to have some rib pain but it has improved. We discussed potential placement vs HHC. Objective BP (!) 152/81 (BP Location: Right arm, Patient Position: Sitting) Pulse (!) 101 Temp 97.9 F (36.6 C) (Oral) Resp 16 Ht 5' 3 Wt 83.3 kg (183 lb 10.3 oz) LMP (LMP Unknown) SpO2 95% BMI 32.53 kg/m Physical Examination General Appearance: alert; chronically ill appearing; in no acute distress HEENT: Head- normocephalic; Eyes- EOMI, sclera anicteric; Throat- mucous membranes moist Cardiovascular: regular rate and rhythm; normal S1, S2; no murmurs, rubs, clicks or gallops; peripheral edema absent Respiratory: lungs clear to auscultation; without wheezes, rales or rhonchi; on room air Abdomen: soft, non-tender, non-distended Neurological: oriented x 3; normal speech; no focal findings or movement disorder noted Musculoskeletal: no significant deformity or tenderness to palpation Skin: normal coloration Psych: normal mood and affect Care Management Progress Note Date: 10/28/2023 Time: 8:39 AM Patient Name: Matthew Perez Date of : 1955 Discharge Plan: D/C Disposition: Nursing Home Facility Agency/Destination: [facility] Patient Choice 1: [facility]: Hospital bed Options Reviewed: List provided Reason for Choice: Patient/Family preference Discharging Transportation Plan: Transportation Type: Auto Discharge Plan Status: [facility] asked [facility], to review pt referral sent yesterday. Asked them to initiate pre-cert if able to accept. [facility] accepted pt and did initiate authorization. [facility] rounded with physician. Plan is SNF if insurance approves. If not pt is going to go home with HH services. Need HH arranged in case SNF denies. ZAC placed HH hub order. HENS DONE CME received info Auth received. Able to admit today. CME arranged transport via family. DC bundles sent. Occupational Therapy OCCUPATIONAL THERAPY TREATMENT NOTE Skilled Therapy Needs After Discharge Anticipate Resolution of Current Assessment Limitations Including: Pain, Mechanical Barriers, Social Support Are Skilled Therapy Services Needed After Discharge: Yes Intensity of Skilled Therapy: 5 to 7 days per week Anticipated Duration of Skilled Therapy: Duration 10 - 30 days DME Recommendation: To be determined at next level of care Rehab Potential: Good Outcomes Measures Prior Function Daily Activity Raw Score: 24 Prior Function Daily Activity % Impaired: 0% AM-PAC Daily Activity Raw Score: 15 AM-PAC Daily Activity % Impaired: 56.46% Activity Tolerance Activity Tolerance: Tolerates 10 - 20 min activity with multiple rests Therapy Precautions Orthotic Devices: No Weight Bearing Status: WFL General Rehab Precautions: Back, Fall risk Cognition Overall Cognitive Status: Within Functional Limits Orientation Level: Oriented X4 ADL Grooming: Stand by assist Grooming - Skilled Intervention Provided: verbal cues, facilitation, environmental setup/modification, patient education Grooming - For: compensatory strategies, efficient movement, energy conservation, fall prevention Grooming - Resulting In: improved activity tolerance, improved functional independence, improved overall self care, improved participation in ADL task, improved performance with ADLs Upper Body Bathing: Minimal assist, Increased time to complete Upper Body Bathing - Skilled Intervention Provided: verbal cues, facilitation, environmental setup/modification, monitored patient's safety & tolerance, patient education Upper Body Bathing - For: compensatory strategies, efficient movement, energy conservation, midline orientation, fall prevention Upper Body Bathing - Resulting In: improved activity tolerance, improved initiation, improved functional independence, improved overall self care, improved participation in ADL task, improved performance with ADLs In preporation for discharge Additional Treatment Details Patient ok to see this date per nursing. Patient supine in bed upon arrival reporting 0/10 pain. Therapy provided with no change in patient pain level or condition. Patient left supine in bed with call light within reach, bed alarm engaged with a fall score of 4, and all immediate needs met. Home Living Obtained Home Living and PLOF info from: Patient Lives With: Spouse, Son Type of Home: House Home Layout: Two level, Able to live on main level with bedroom/bathroom Steps to enter home: Yes Rails to enter home: 1 rail Number of stairs to enter home: 5 Bathroom Shower/Tub: Walk-in shower Bathroom Toilet: Raised Bathroom Equipment: Grab bars in shower Mobility Equipment: Cane, Rollator ADL Equipment: Java Tech Lead Additional Objective Details - Home Living: Pt uses rollator for mobility at baseline. Prior Level of Function Level of [place] - Transfers/Ambulation/Mobility: Independent with functional transfers, Independent with household ambulation, Independent with community ambulation Level of [place] - ADLs: Independent Level of [place] - Homemaking: Independent Driving: Patient drives For complete objective data, detailed plan of care and patient education refer to: OT Evaluation flowsheet, OT Evaluation and Treatment flowsheet, OT Treatment flowsheet, patient Plan of Care, Plan of Care progress note, and Patient Education. This note stands as the current Discharge Summary upon patient discharge from the hospital or completion of Occupational Therapy Plan of Care. Care Management Progress Note Date: 10/27/2023 Time: 3:54 PM Patient Name: Matthew Perez Date of : 1955 Discharge Plan: D/C Disposition: Nursing Home Facility Agency/Destination: [facility] Patient Choice 1: [facility]: Hospital bed Options Reviewed: List provided Reason for Choice: Patient/Family preference Discharging Transportation Plan: Transportation Type: Auto Discharge Plan Status: SW f2f with pt and discussed dc plan. Reported that she does not feel she is able to go home. Reported she does not feel she is moving too well. Pt has been to rehab before. Would like [facility] and if unable to take [facility] then [facility]. Reported that if she does not meet LOC for rehab then she would be okay with services at home. No agency preference. Plan A Rehab Plan B home with HH Referral sent to [facility] [place] PROGRESS NOTE Assessment and Plan Matthew Perez is a 68 y.o. 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 Frequent Falls Intractable rib pain History of lumbar back pain Fall precautions Trauma barron scan: No acute traumatic abnormality in the chest, abdomen, or pelvis. No acute fracture in the thoracic and lumbar spine. No acute fracture or subluxation of the cervical spine. Postsurgical changes from C4-T1. Alignment is satisfactory. CT head with no evidence of acute intracranial hemorrhage or acute calvarial fracture. Tylenol, lidocaine patch, as needed morphine and Dilaudid per pain level Incentive spirometry Early ambulation SCDs Orthopedic surgery consulted for intercostal nerve block, but this is not available here Ortho spine follows patient, no procedure currently planned PT/OT/CM consulted and she is interested in potential placement if warranted History of PE s/p IVC Recent IVC placement. Will resume home eliquis today Asthma Continue home medication HTN Continue home medication Depression with anxiety Continue home medication Obesity Recommend lifestyle modifications after acute illness Discharge Planning Medically Stable for Discharge Date: 10/28 Patient requires continued hospitalization due to: Pain, potential placement Discharge Location: TBD Quality Measures DVT Prophylaxis: eliquis Michael Catheter: absent Code Status Full Subjective Mrs. Perez was resting in bed when I saw her. She continues to have rib pain and we discussed potential placement which she was amenable to. Objective BP (!) 151/69 Pulse 93 Temp 98.8 F (37.1 C) (Oral) Resp 16 Ht 5' 3 Wt 83.3 kg (183 lb 10.3 oz) LMP (LMP Unknown) SpO2 (!) 89% BMI 32.53 kg/m Physical Examination General Appearance: alert; chronically ill appearing; in no acute distress HEENT: Head- normocephalic; Eyes- EOMI, sclera anicteric; Throat- mucous membranes moist Cardiovascular: regular rate and rhythm; normal S1, S2; no murmurs, rubs, clicks or gallops; peripheral edema absent Respiratory: lungs clear to auscultation; without wheezes, rales or rhonchi; on room air Abdomen: soft, non-tender, non-distended Neurological: oriented x 3; normal speech; no focal findings or movement disorder noted Musculoskeletal: no significant deformity or tenderness to palpation Skin: normal coloration Psych: normal mood and affect Care Management Progress Note Date: 10/27/2023 Time: 12:46 PM Patient Name: Matthew Perez Date of : 1955 Discharge Plan: D/C Disposition: Home HME: Hospital bed Options Reviewed: List provided Reason for Choice: Patient/Family preference Discharging Transportation Plan: Transportation Type: Auto Discharge Plan Status: SW rounded with attending. Per pt to attending, may need rehab. Need to see therapy first for recs and then will determine dc options. documented in this encounter [facility] 10-28-2023 Consult note Associated Order (s): IP CONSULT TO HOME HEALTH HUB Images from the original note were not included. Care Management Consult Note Date: 10/28/2023 Time: 11:29 AM Patient Name: Matthew Perez Date of : 1955 If discharge needs change, please reach out to liaison assigned on treatment team as hub is not notified of new consults once team is following. Thank you. If home care if not set up upon discharge that liaison will follow up on referral up to 48hrs post discharge to continue searching for home care acceptance. If home care if not able to be set up at that time, Liaison will notify patient/family of need to follow up with PCP for home care assistance. 3:10 PM Approval received for SNF. Plan to admit today Accepted for services? If so, where? YES/PENDING (if [facility], include region) pending Referrals sent to (names of agencies) Please be aware that external agencies have 24 hours to respond to referrals. [facility] If OPAT, TF, TPN: (document pharmacy name, referral pending or accepted, script sent?) N/a [facility] created for the following services: [or waiting for ____ (i.e wound care)] yes Demographics -( Where patient will be staying on discharge ) [address] [place] [id number] What is the primary number to reach you? Following physician will be (list first name/last name) Harmony Gee MD Do you have a caregiver and/or teachable caregiver (list relationship, name & phone #)? N/a Are there any special precautions or safety concerns (isolation precautions, etc)? N/a Has the patient been added to capacity board/tracking sheet? ([facility] only) N/a Estimated Discharge Date ([facility]): 10/29 [facility] 10-28-2023 Consult note Associated Order (s): IP CONSULT TO HOME HEALTH HUB Images from the original note were not included. Care Management Consult Note Date: 10/28/2023 Time: 11:29 AM Patient Name: Matthew Perez Date of : 1955 If discharge needs change, please reach out to liaison assigned on treatment team as hub is not notified of new consults once team is following. Thank you. If home care if not set up upon discharge that liaison will follow up on referral up to 48hrs post discharge to continue searching for home care acceptance. If home care if not able to be set up at that time, Liaison will notify patient/family of need to follow up with PCP for home care assistance. 3:10 PM Approval received for SNF. Plan to admit today Accepted for services? If so, where? YES/PENDING (if [facility], include region) pending Referrals sent to (names of agencies) Please be aware that external agencies have 24 hours to respond to referrals. [facility] If [facility]AT, TF, TPN: (document pharmacy name, referral pending or accepted, script sent?) N/a [facility] created for the following services: [or waiting for ____ (i.e wound care)] yes Demographics -( Where patient will be staying on discharge ) [facility] [place] [address] What is the primary number to reach you? Following physician will be (list first name/last name) Harmony Gee MD Do you have a caregiver and/or teachable caregiver (list relationship, name & phone #)? N/a Are there any special precautions or safety concerns (isolation precautions, etc)? N/a Has the patient been added to capacity board/tracking sheet? ([facility] only) N/a Estimated Discharge Date ([facility]): 10/29 Physical Therapy PHYSICAL THERAPY EVALUATION Skilled Therapy Needs After Discharge Anticipate Resolution of Current Assessment Limitations Including: Pain, Mechanical Barriers, Social Support Are Skilled Therapy Services Needed After Discharge: Yes Intensity of Skilled Therapy: 2-3 days per week Anticipated Duration of Skilled Therapy: Duration 10 - 30 days DME Recommendation: None Rehab Potential: Good Outcomes Measures Prior Function - Basic Mobility Raw Score: 24 Points Prior Function - Basic Mobility % Impaired: 0% AM-PAC Basic Mobility Raw Score: 16 Points AM-PAC Basic Mobility % Impaired: 47.12% Physical Therapy Assessment History: The following factors influence the patient's participation in the PT plan of care: Personal Factors: Age Environmental Factors: Steps to enter home The following co-morbidities (from this admission or prior) influence the patient's participation in this plan of care: HTN, asthma, fibromyalgia, arthritis Number of History elements affecting this patient's PT plan of care: 3 or more Examination of Body Systems: The patient presents with: Musculoskeletal impairments: Strength, ROM, Pain, Functional Endurance Neurologic Impairments: Balance, Pain Cardiopulmonary Impairments: Activity Tolerance. These impairments result in limitations of Gait, Functional Transfers, Activity Tolerance. These impairments result in restrictions of Community mobility, Household mobility. Number of Body Systems elements affecting this patient's PT plan of care: 3 or more. Clinical Presentation: The patient's clinical presentation for this PT evaluation is evolving with changing characteristics as evidenced by current PT documentation. Activity Tolerance Activity Tolerance: Tolerates 10 - 20 min activity with multiple rests Therapy Precautions Orthotic Devices: No Weight Bearing Status: WFL General Rehab Precautions: Fall risk Balance Assessment Sitting Balance - Static: Stand by assist Sitting Balance - Dynamic: Stand by assist Standing Balance - Static: Stand by assist Meter Maintenance Person - Standing Static: wheeled walker Standing Balance - Dynamic: Contact guard assist Meter Maintenance Person - Standing Dynamic: wheeled walker Bed Mobility Rolling: Minimal assist Sit to Supine: Minimal assist Meter Maintenance Person: bedrails, patient slide sheet / friction-reducing device Transfers Sit to Stand: Minimal assist Meter Maintenance Person: wheeled walker (gait belt) Gait/Locomotion Gait Assistance: Contact guard assist Assistive Device: wheeled walker (gait belt) Distance: 14 Feet Pattern: L decreased step length, R decreased step length, decreased martin (steps per minute) Additional Assessment Details Education provided on importance of mobility to promote return to PLOF. Patient demonstrating self limiting tendencies toward mobility, emotional support and encouragement provided as appropriate. Verbal cues for safety throughout. Patient left supine in bed at end of evaluation. Patient's call light and bedside tray left within reach. Bed alarm engaged due to patient's fall risk score of 4. Patient denied additional needs. White board updated. Home Living Obtained Home Living and PLOF info from: Patient Lives With: Spouse, Son Type of Home: House Home Layout: Two level, Able to live on main level with bedroom/bathroom Steps to enter home: Yes Rails to enter home: 1 rail Number of stairs to enter home: 5 Bathroom Shower/Tub: Walk-in shower Bathroom Toilet: Raised Bathroom Equipment: Grab bars in shower Mobility Equipment: Cane, Rollator ADL Equipment: Java Tech Lead Additional Objective Details - Home Living: Pt uses rollator for mobility at baseline. Prior Level of Function Level of [place] - Transfers/Ambulation/Mobility: Independent with functional transfers, Independent with household ambulation, Independent with community ambulation Level of [place] - ADLs: Independent Level of [place] - Homemaking: Independent Driving: Patient drives Past Medical History: Diagnosis Date Anxiety Arthritis osteo Asthma 08/23/2014 Back pain Cardiomyopathy (HCC) resolved (EF 45% per cath 09/21/2006; EF 55-60% per echo 04/16/2019). Depression Diastolic dysfunction mild per echo on 06/08/2019 Edema Fibromyalgia, primary GERD (gastroesophageal reflux disease) patient denies History of echocardiogram Hypertension 04/01/2015 Migraines Obesity AYO (obstructive sleep apnea) cannot tolerate C-Pap Pneumonia x2 , had 2 pneumonia shots Restless legs syndrome Saphenous vein clot superficial LLE Shoulder joint pain Spinal stenosis Varicose veins of both lower extremities Past Surgical History: Procedure Laterality Date ANTERIOR CERVICAL DISCECTOMY 02/25/2009 C5-6, C6-7 AR'SCOPY SHOULD SAD, SLAP, RCR, RESECT DISTAL CLAVICLE, BICEPS TENODESIS Right 11/04/2015 ARTHROPLASTY HIP TOTAL Right 02/27/2018 Procedure: RIGHT TOTAL HIP ARTHROPLASTY; Surgeon: Gabo Sears MD; Location: [facility] Main OR; Service: Orthopedic BLADDER SUSPENSION BRONCHOSCOPY CARDIAC CATHETERIZATION Bilateral 09/21/2006 COLONOSCOPY CV IR INTERVENTIONAL RADIOLOGY N/A 08/22/2023 Procedure: VR IVC Filter Insert; Surgeon: Lukas Beverly DO; Location: [facility] EP LAB; Service: Interventional Radiology CV IR INTERVENTIONAL RADIOLOGY N/A 10/07/2023 Procedure: VR IVC Filter Removal; Surgeon: Roxana Lopez MD; Location: [facility]IDEO INTERN; Service: Interventional Radiology FOOT SURGERY Right 03/08/2005 Third interdigital neuroma excision, fourth metatarsal osteotomy w/capsulotomy, fifth metatarsal head excision HARDWARE REMOVAL ANTERIOR CERVICAL 07/22/2014 C5, C6-7 HARDWARE REMOVAL LUMBAR 01/02/2009 L5-S1 w/ redo decompression laminectomy HYSTERECTOMY CARLOS MANUEL BSO Bladder suspension KNEE ARTHROSCOPY W/ LASER Left 2013 LAMINECTOMY DECOMP LUMBAR W/FUSION 4 OR MORE LVL N/A 11/08/2017 Procedure: HARDWARE REMOVAL L4-S1, DECOMPRESSION/FUSION L2-L4, PLIF, REINSTRUMENT L2-S1; Surgeon: Alejo Hummel MD; Location: [facility] Main OR; Service: Orthopedic LAMINECTOMY DECOMP THORACIC W/FUSION 4 OR MORE LVL N/A 08/18/2023 Procedure: Decompression Thoracic 12-Lumbar1, [id number] 1 Discectomy, Interbody fusion, fixation Thoracic 10-Lumbar5, CT BUCK, Local Bone, Posteriorlateral Fusion Thoracic 10-Lumbar2, cement augmentation Thoracic 10; Surgeon: Jose Fraga MD; Location: [facility] Main OR; Service: Orthopedic LAMINECTOMY DISC ANTERIOR CERVICAL W/ FUSION SINGLE LEVEL N/A 03/13/2021 Procedure: Anterior cervical discectomy fusion cervical4-5 with plate and allograft; Surgeon: Jose Fraga MD; Location: [facility] Main OR; Service: Orthopedic LUMBAR LAMINECTOMY 10/11/2003 L5-S1 decompression w/interbody fusion bilateral and posterior fusion fixation LUNG BIOPSY Right ROTATOR CUFF REPAIR Left TONSILLECTOMY TOTAL KNEE ARTHROPLASTY Right WISDOM TOOTH EXTRACTION For complete objective data, detailed plan of care and patient education refer to: PT Evaluation flowsheet, PT Evaluation and Treatment flowsheet, PT Treatment flowsheet, patient Plan of Care, Plan of Care progress note, and Patient Education. This note stands as the current Discharge Summary upon patient discharge from the hospital or completion of Physical Therapy Plan. Occupational Therapy OCCUPATIONAL THERAPY EVALUATION Skilled Therapy Needs After Discharge Anticipate Resolution of Current Assessment Limitations Including: Pain, Mechanical Barriers, Social Support Are Skilled Therapy Services Needed After Discharge: Yes Intensity of Skilled Therapy: 5 to 7 days per week Anticipated Duration of Skilled Therapy: Duration 10 - 30 days DME Recommendation: To be determined at next level of care Rehab Potential: Good RN agreeable with OT evaluation at this time. Patient reports no increased pain upon end of evaluation, left with all immediate needs met, and call light within reach. White board was updated and RN was notified of patient's mobility status. Patient left up in chair with alarm on Fall risk score:4 I utilized the following PPE throughout this therapy session: Gloves, Surgical mask and Safety glasses A Chain Forming Machine Operator did not assist with this evaluation. Outcomes Measures Prior Function Daily Activity Raw Score: 24 Prior Function Daily Activity % Impaired: 0% AM-PAC Daily Activity Raw Score: 16 AM-PAC Daily Activity % Impaired: 53.32% Occupational Therapy Assessment The patient's current functional participation deficits are UE dressing, LE dressing, bathing, toileting, functional mobility. This reduced independence will limit their life roles of premorbid level individual. The patient's co morbidities do affect patient performance in the above activities and roles. The performance deficits are a result of musculoskeletal impairment(s) in generalized debility including balance, acitvity tolerance, safety, and emotional lability, pain intolerance, anxiety. The patient's home setup is a barrier, limitations of family / caregiver support is a barrier for return to prior level of function. The patient's awareness of own capacity and performance is a barrier to return to prior level of function. During the assessment, minimal to moderate modification of task was required and several treatment options were identified in the plan of care. This consultation required expanded review of the medical and therapy history. Activity Tolerance Activity Tolerance: Tolerates less than 10 min activity, no significant change in vital signs Therapy Precautions Orthotic Devices: No Weight Bearing Status: WFL General Rehab Precautions: Back, Fall risk Cognition Overall Cognitive Status: Within Functional Limits Arousal/Alertness: Appropriate responses to stimuli Orientation Level: Oriented X4 Executive functioning: WFL Safety Judgment: Good awareness of safety precautions Problem Solving: Able to problem solve independently Attention: Attends to quiet environment Hearing Status: WFL Social Interaction: WFL ADL Feeding: Independent Grooming: Independent Upper Body Bathing: Minimal assist, Moderate assist Lower Body Bathing: Moderate assist, Maximal assist Upper Body Dressing: Minimal assist, Moderate assist Lower Body Dressing: Moderate assist, Maximal assist Toileting: Moderate assist Functional Mobility: Minimal assist IADL Bed Mobility Supine to Sit: Minimal assist Functional Transfers Sit to Stand: Minimal assist Bed to Chair Transfers: Minimal assist Additional Assessment Details All activities completed in preparation for discharge. Home Living Obtained Home Living and PLOF info from: Patient Lives With: Spouse, Son Type of Home: House Home Layout: Two level, Able to live on main level with bedroom/bathroom Steps to enter home: Yes Rails to enter home: 1 rail Number of stairs to enter home: 5 Bathroom Shower/Tub: Walk-in shower Bathroom Toilet: Raised Bathroom Equipment: Grab bars in shower Mobility Equipment: Cane, Rollator ADL Equipment: Java Tech Lead Additional Objective Details - Home Living: Pt uses rollator for mobility at baseline. Prior Level of Function Level of [place] - Transfers/Ambulation/Mobility: Independent with functional transfers, Independent with household ambulation, Independent with community ambulation Level of [place] - ADLs: Independent Level of [place] - Homemaking: Independent Driving: Patient drives Past Medical History: Diagnosis Date Anxiety Arthritis osteo Asthma 08/23/2014 Back pain Cardiomyopathy (HCC) resolved (EF 45% per cath 09/21/2006; EF 55-60% per echo 04/16/2019). Depression Diastolic dysfunction mild per echo on 06/08/2019 Edema Fibromyalgia, primary GERD (gastroesophageal reflux disease) patient denies History of echocardiogram Hypertension 04/01/2015 Migraines Obesity AYO (obstructive sleep apnea) cannot tolerate C-Pap Pneumonia x2 , had 2 pneumonia shots Restless legs syndrome Saphenous vein clot superficial LLE Shoulder joint pain Spinal stenosis Varicose veins of both lower extremities Past Surgical History: Procedure Laterality Date ANTERIOR CERVICAL DISCECTOMY 02/25/2009 C5-6, C6-7 AR'SCOPY SHOULD SAD, SLAP, RCR, RESECT DISTAL CLAVICLE, BICEPS TENODESIS Right 11/04/2015 ARTHROPLASTY HIP TOTAL Right 02/27/2018 Procedure: RIGHT TOTAL HIP ARTHROPLASTY; Surgeon: Gabo Sears MD; Location: [facility] Main OR; Service: Orthopedic BLADDER SUSPENSION BRONCHOSCOPY CARDIAC CATHETERIZATION Bilateral 09/21/2006 COLONOSCOPY CV IR INTERVENTIONAL RADIOLOGY N/A 08/22/2023 Procedure: VR IVC Filter Insert; Surgeon: Lukas Beverly DO; Location: [facility] EP [facility]; Service: Interventional Radiology CV IR INTERVENTIONAL RADIOLOGY N/A 10/07/2023 Procedure: VR IVC Filter Removal; Surgeon: Roxana Lopez MD; Location: [facility]N; Service: Interventional Radiology FOOT SURGERY Right 03/08/2005 Third interdigital neuroma excision, fourth metatarsal osteotomy w/capsulotomy, fifth metatarsal head excision HARDWARE REMOVAL ANTERIOR CERVICAL 07/22/2014 C5, C6-7 HARDWARE REMOVAL LUMBAR 01/02/2009 L5-S1 w/ redo decompression laminectomy HYSTERECTOMY CARLOS MANUEL BSO Bladder suspension KNEE ARTHROSCOPY W/ LASER Left 2013 LAMINECTOMY DECOMP LUMBAR W/FUSION 4 OR MORE LVL N/A 11/08/2017 Procedure: HARDWARE REMOVAL L4-S1, DECOMPRESSION/FUSION L2-L4, PLIF, REINSTRUMENT L2-S1; Surgeon: Alejo Hummel MD; Location: [facility] Main OR; Service: Orthopedic LAMINECTOMY DECOMP THORACIC W/FUSION 4 OR MORE LVL N/A 08/18/2023 Procedure: Decompression Thoracic 12-Lumbar1, [id number] 1 Discectomy, Interbody fusion, fixation Thoracic 10-Lumbar5, CT BUCK, Local Bone, Posteriorlateral Fusion Thoracic 10-Lumbar2, cement augmentation Thoracic 10; Surgeon: Jose Fraga MD; Location: [facility] Main OR; Service: Orthopedic LAMINECTOMY DISC ANTERIOR CERVICAL W/ FUSION SINGLE LEVEL N/A 03/13/2021 Procedure: Anterior cervical discectomy fusion cervical4-5 with plate and allograft; Surgeon: Jose Fraga MD; Location: [facility] Main OR; Service: Orthopedic LUMBAR LAMINECTOMY 10/11/2003 L5-S1 decompression w/interbody fusion bilateral and posterior fusion fixation LUNG BIOPSY Right ROTATOR CUFF REPAIR Left TONSILLECTOMY TOTAL KNEE ARTHROPLASTY Right WISDOM TOOTH EXTRACTION For complete objective data, detailed plan of care and patient education refer to: OT Evaluation flowsheet, OT Evaluation and Treatment flowsheet, OT Treatment flowsheet, patient Plan of Care, Plan of Care progress note, and Patient Education. This note stands as the current Discharge Summary upon patient discharge from the hospital or completion of Occupational Therapy Plan of Care. Associated Order(s): IP CONSULT TO ORTHOPEDIC SURGERY Consult Note Matthew Perez 1955 Impression/Plan: Problem Status post lumbar spinal fusion T10-L2 08/18/23 Will plan office follow-up for continued monitoring of back pain just above her level of fusion. This may be associated with a stable minimal compression fracture at the next level above and I offered her the option of kyphoplasty at that level. At this point she declines the option of kyphoplasty but is considering. We will plan office follow-up for further discussion after discharge. That is also her preference. A question has been raised regarding intercostal nerve blocks. These might provide some transient improvement in her chest wall pain associated with her rib fractures although this is outside of the scope of my practice and the practice of most spine surgeons. Anesthesia consult is a consideration for that procedure although the degree of clinical improvement is likely to be modest and would not alter the long-term management. No spine surgery intervention is planned for this admission. I will sign off but I am available if reconsulted. History of Present Illness Matthew Perez is a 68 y.o. female. She presents with chest wall pain. After surgery as above she has previously fallen with a subsequent increase in back pain at the upper end of her prior fusion. She has some mild chronic lower extremity and buttock area subjective numbness but without any recent change. Just prior to this admission she has fallen striking her chest wall against a toilet seat she has had severe pain and rib fractures have been suspected. Current Medication Prior to Admission medications Medication Sig Start Date End Date Taking? Authorizing Provider amLODIPine (NORVASC) 10 MG tablet Take 1 (one) tablet (10 mg total) by mouth every morning . Yes Geo Rubio MD clonazePAM (KLONOPIN) 1 MG tablet Take 1 (one) tablet (1 mg total) by mouth 2 (two) times a day as needed for anxiety . 08/23/18 Yes Geo Rubio MD diclofenac sodium 1 % Gel Apply 10 (ten) g topically 3 (three) times a day as needed . Yes Geo Rubio MD furosemide (LASIX) 40 MG tablet Take 1 (one) tablet (40 mg total) by mouth daily . Yes Geo Rubio MD lisinopril (PRINIVIL,ZESTRIL) 20 MG tablet Take 1 (one) tablet (20 mg total) by mouth every morning Reasons: high blood pressure. 06/27/15 Yes Geo Rubio MD montelukast (SINGULAIR) 10 mg tablet Take 1 (one) tablet (10 mg total) by mouth every morning . Yes Geo Rubio MD NONFORMULARY Take 2 tablets by mouth every evening Equate sleep aide 25mg . Yes Geo Rubio MD NONFORMULARY Take 1 tablet by mouth daily as needed Equate stay awake 200mg . Yes Geo Rubio MD rOPINIRole (REQUIP) 2 MG tablet Take 1 (one) tablet (2 mg total) by mouth 3 (three) times a day as needed Reasons: restless legs syndrome, an extreme discomfort in the calf muscles when sitting or lying down. 12/11/16 Yes Geo Rubio MD sertraline (ZOLOFT) 50 MG tablet Take 1 (one) tablet (50 mg total) by mouth every morning . Yes Geo Rubio MD albuterol (Ventolin HFA) 90 mcg/actuation inhaler Inhale 1 (one) puff every 6 (six) hours as needed for wheezing . 04/22/21 08/04/23 Dilip Mckeon MD apixaban (ELIQUIS) 5 mg Tab Take 2 (two) tablets (10 mg total) by mouth 2 (two) times a day for 6 days, continued through 08/30/23. 08/25/23 08/31/23 Erika Carmona CNP aspirin 81 MG EC tablet Take 1 (one) tablet (81 mg total) by mouth daily . Geo Rubio MD beclomethasone (QVAR) 40 mcg/actuation inhaler Inhale 2 (two) puffs 2 (two) times a day Rinse mouth . 05/07/21 10/07/23 Dilip Mckeon MD cyclobenzaprine (FLEXERIL) 5 MG tablet Take 1 (one) tablet (5 mg total) by mouth Three times daily as needed . 09/07/23 Geo Rubio MD gabapentin (NEURONTIN) 300 MG capsule Take 1 (one) capsule (300 mg total) by mouth every 8 (eight) hours (Days supply per fill: 30) . 08/24/23 09/23/23 Erika Carmona CNP glucosamine/chondr pabon A sod (OSTEO BI-FLEX ORAL) Take 1 tablet by mouth every morning . ProviderGeo MD magnesium gluconate (MAGONATE) 27.5 mg magne- sium (500 mg) tablet Take 1 (one) tablet (500 mg total) by mouth daily . Geo Rubio MD oxyCODONE-acetaminophen (PERCOCET) 10-325 mg per tablet Take 2 (two) tablets by mouth every 4 (four) hours as needed for pain (Days supply per fill: 180 Reasons: pain. ProviderGeo MD Past Medical History: Diagnosis Date Anxiety Arthritis osteo Asthma 08/23/2014 Back pain Cardiomyopathy (HCC) resolved (EF 45% per cath 09/21/2006; EF 55-60% per echo 04/16/2019). Depression Diastolic dysfunction mild per echo on 06/08/2019 Edema Fibromyalgia, primary GERD (gastroesophageal reflux disease) patient denies History of echocardiogram Hypertension 04/01/2015 Migraines Obesity AYO (obstructive sleep apnea) cannot tolerate C-Pap Pneumonia x2 , had 2 pneumonia shots Restless legs syndrome Saphenous vein clot superficial LLE Shoulder joint pain Spinal stenosis Varicose veins of both lower extremities Past Surgical History: Procedure Laterality Date ANTERIOR CERVICAL DISCECTOMY 02/25/2009 C5-6, C6-7 AR'SCOPY SHOULD SAD, SLAP, RCR, RESECT DISTAL CLAVICLE, BICEPS TENODESIS Right 11/04/2015 ARTHROPLASTY HIP TOTAL Right 02/27/2018 Procedure: RIGHT TOTAL HIP ARTHROPLASTY; Surgeon: Gabo Sears MD; Location: [facility] Main OR; Service: Orthopedic BLADDER SUSPENSION BRONCHOSCOPY CARDIAC CATHETERIZATION Bilateral 09/21/2006 COLONOSCOPY CV IR INTERVENTIONAL RADIOLOGY N/A 08/22/2023 Procedure: VR IVC Filter Insert; Surgeon: Lukas Beverly DO; Location: [facility] EP LAB; Service: Interventional Radiology CV IR INTERVENTIONAL RADIOLOGY N/A 10/07/2023 Procedure: VR IVC Filter Removal; Surgeon: Roxana Lopez MD; Location: [facility] INTERN; Service: Interventional Radiology FOOT SURGERY Right 03/08/2005 Third interdigital neuroma excision, fourth metatarsal osteotomy w/capsulotomy, fifth metatarsal head excision HARDWARE REMOVAL ANTERIOR CERVICAL 07/22/2014 C5, C6-7 HARDWARE REMOVAL LUMBAR 01/02/2009 L5-S1 w/ redo decompression laminectomy HYSTERECTOMY CARLOS MANUEL BSO Bladder suspension KNEE ARTHROSCOPY W/ LASER Left 2014 LAMINECTOMY DECOMP LUMBAR W/FUSION 4 OR MORE LVL N/A 11/08/2017 Procedure: HARDWARE REMOVAL L4-S1, DECOMPRESSION/FUSION L2-L4, PLIF, REINSTRUMENT L2-S1; Surgeon: Alejo Hummel MD; Location: [facility] Main OR; Service: Orthopedic LAMINECTOMY DECOMP THORACIC W/FUSION 4 OR MORE LVL N/A 08/18/2023 Procedure: Decompression Thoracic 12-Lumbar1, [id number] 1 Discectomy, Interbody fusion, fixation Thoracic 10-Lumbar5, CT BUCK, Local Bone, Posteriorlateral Fusion Thoracic 10-Lumbar2, cement augmentation Thoracic 10; Surgeon: Jose Fraga MD; Location: [facility] Main OR; Service: Orthopedic LAMINECTOMY DISC ANTERIOR CERVICAL W/ FUSION SINGLE LEVEL N/A 03/13/2021 Procedure: Anterior cervical discectomy fusion cervical4-5 with plate and allograft; Surgeon: Jose Fraga MD; Location: [facility] Main OR; Service: Orthopedic LUMBAR LAMINECTOMY 10/11/2003 L5-S1 decompression w/interbody fusion bilateral and posterior fusion fixation LUNG BIOPSY Right ROTATOR CUFF REPAIR Left TONSILLECTOMY TOTAL KNEE ARTHROPLASTY Right WISDOM TOOTH EXTRACTION Patient Active Problem List Diagnosis AYO (obstructive sleep apnea) Asthma Balance disorder Hypertension Protrusion of cervical intervertebral disc C4-5 with stenosis Brachial neuritis Lumbar pain Depression Pre-diabetes Dysphagia Cataract Migraine Bronchogenic cancer (HCC) Restless legs syndrome Tendinopathy of left rotator cuff Varicose vein History of cardiomyopathy Iron deficiency Obesity Difficulty walking Encounter for long-term use of opiate analgesic Varicose veins of lower extremities with complications Left hip pain Status post lumbar spinal fusion T10-L2 08/18/23 Lumbar stenosis L1-2 with neurogenic claudication Spinal stenosis DDD (degenerative disc disease), lumbar Hip osteoarthritis Acute blood loss as cause of postoperative anemia S/P total hip arthroplasty Osteoarthritis of multiple joints Vertigo History of falling Rectocele Protrusion of cervical intervertebral disc C4-5 with stenosis Diastolic dysfunction Status post cervical spinal fusion C4-T1 Inguinal pain Urge urinary incontinence Cardiomyopathy (HCC) Acute low back pain Thoracic disc herniation T12-L1 Displacement of thoracic intervertebral disc without myelopathy Pseudoclaudication syndrome S/P lumbar fusion Back pain at L4-L5 level Ambulatory dysfunction Social History Tobacco Use Smoking status: Never Smokeless tobacco: Never Tobacco comments: 04/21/21 Vaping Use Vaping Use: Never used Substance Use Topics Alcohol use: Yes Alcohol/week: 0.0 standard drinks of alcohol Comment: sometimes 10 a year; rare Drug use: No Comment: tried all forms of medical marijuana without positive results in last 6 weeks Allergies Allergen Reactions Duloxetine GI Intolerance Nausea Nsaids (Non-Steroidal Anti-Inflammatory Drug) GI Intolerance Ibuprofen GI Intolerance Lyrica [Pregabalin] Other (See Comments) nightmares Metformin GI Intolerance Review of systems - All systems are reviewed and are negative except for symptoms related to conditions in problem list family history includes Brain cancer in her mother; Breast cancer in her mother; Diabetes in her father, sister, and another family member; Heart disease in her father; Hypertension in her father, sister, and another family member; Liver cancer in her mother; Lung cancer in her mother; No Known Problems in her brother. Physical Examination BP (!) 151/69 Pulse 93 Temp 98.8 F (37.1 C) (Oral) Resp 16 Ht 5' 3 Wt 83.3 kg (183 lb 10.3 oz) LMP (LMP Unknown) SpO2 (!) 89% BMI 32.53 kg/m She is alert and oriented and cooperative and in no acute distress. She is resting comfortably at bedrest. She notes right-sided chest wall pain with minimal movement. Right-sided chest wall tenderness is noted. Lower extremity motor is strong and symmetric. She has minimal thoracic back pain at the upper portion of her prior fusion. There is no lower lumbar paraspinal or sciatic notch tenderness. Radiological Examination CT of the thoracic and lumbar spine 10/26/2023: Review of the images redemonstrates her previous thoracolumbar fusion. She does have an apparent minimal inferior T9 compression fracture which is stable in comparison with old films obtained as early as late July 2023. This is a subacute injury without any further progressive loss of height. Disc degeneration at T9-10 is seen. Her fusion appears intact without hardware complication. The report: IMPRESSION: 1. No acute traumatic abnormality in the chest, abdomen, or pelvis. 2. No acute fracture in the thoracic and lumbar spine. Remote mild multilevel compression deformities in the thoracic spine. Posterior instrumented fusion spans lower thoracic-sacral spine, without appreciable hardware complication. Jose Fraga MD Associated Order(s): IP CONSULT TO CARE MANAGEMENT; IP CONSULT TO CARE MANAGEMENT Care Management Consult Note Date: 10/26/2023 Time: 3:43 PM Patient Name: Matthew Perez Date of : 1955 Reason for Consult: Discharge Plan: D/C Disposition: Home HME: Hospital bed Options Reviewed: List provided Reason for Choice: Patient/Family preference Discharging Transportation Plan: Transportation Type: Auto Discharge Plan Status: SW f2f with pt. Pt reported that she lives with spouse and child. Pt has good support. Pt reported she had a hospital bed in the past for a month and sent it back. Feels like she will need again. Okay using same agency. Pt does not have HH but has [facility] services through her insurance that comes and checks in on her. Discussed therapy post hospitalization. Pt unsure whether this will be needed. Pt therapy evals are on hold at this time. Pt has walker at home. Denied barriers to SDOH screening. Plan A Hospital Bed for home Plan B hospital bed for home and therapy services. SW sent message to Physician asking pt question she had asked about when she is getting the shot in my back. Physician reported unable to do inpatient. SW f2f with pt and updated her on that. Pt crying saying she just wants to go home. Is agreeable to out pt follow up for pain management but extremely upset. Reported she has been to [facility] in past and did not have good experience. ZAC sent referral to spinal pain management in [place]. ZAC called to schedule an appt for Spinal Pain Management, order is received. Order is correct said Dr. Sylvester reviews all referrals and if approved will give to imaging scheduler and will call pt for appt. ZAC placed order for home hospital bed Assessment and Background Information: Living Arrangements: Spouse/significant other, Children Support Systems: Spouse/significant other Assistance Needed: dischagre needs Type of Residence: Private residence Prior to Admission Home Care Services: Yes Type of Current Home Care Services: Home health care Current Agency Name: ([facility]) Patient expects to be discharged to:: home Does the patient need discharge transport arranged?: Yes Current Home Equipment: Wheeled walker, Cane, Other (Comment), Tub/Shower chair (tedhose) Holistic Assessment Medication adherence problem:: No History of falls in last 6 months:: (!) Yes Family aware of the patient's advance care planning wishes:: Yes documented in this encounter [facility] 10-27-2023 Miscellaneous Notes Physical Therapy Plan of Care Certification Note Coded Admission Diagnosis Fall [W19.XXXA] Intractable pain [R52] Ambulatory dysfunction [R26.2] Contusion of rib on right side, initial encounter [S20.211A] PT Functional Diagnosis: R26.2 Difficulty in walking, not elsewhere classified PT Goals Encounter Problems (Active) Problem: Impaired Strength Dates: Start: 10/27/23 Disciplines: PT Goal: PT- strengthening Dates: Start: 10/27/23 Expected End: 11/03/23 Description: PT - Patient will complete BLE strengthening exercise program 2-3 sets of 10-15 reps independently in preparation for function. Disciplines: PT Intervention: Education, Therapeutic exercise Frequency: PRN Dates: Start: 10/27/23 Problem: Mobility - Impaired Dates: Start: 10/27/23 Disciplines: PT Goal: pt- bed mobility Dates: Start: 10/27/23 Expected End: 11/03/23 Description: PT - Patient will perform bed mobility with supervision to improve functional mobility and safety. Disciplines: PT Goal: PT- sit to stand transfer Dates: Start: 10/27/23 Expected End: 11/03/23 Description: PT - Patient will perform sit to/from stand transfer with stand by assist to improve functional mobility and safety. Disciplines: PT Goal: PT- static balance Dates: Start: 10/27/23 Expected End: 11/03/23 Description: PT - Patient will perform standing static balance activities with device with modified independence to improve functional mobility and safety. Disciplines: PT Goal: PT- dynamic balance Dates: Start: 10/27/23 Expected End: 11/03/23 Description: PT - Patient will perform standing dynamic balance activities with device with supervision to improve functional mobility and safety. Disciplines: PT Goal: PT- ambulation Dates: Start: 10/27/23 Expected End: 11/03/23 Description: PT - Patient will ambulate 100 feet with device with stand by assist to improve functional mobility and safety. Disciplines: PT Goal: PT- stair climbing Dates: Start: 10/27/23 Expected End: 11/03/23 Description: PT - Patient will ascend and descend 4 stairs with non-reciprocal technique with 1 rail with contact guard to improve functional mobility and safety. Disciplines: PT Intervention: Education, Bed mobility training Frequency: PRN Dates: Start: 10/27/23 Intervention: Education, Balance training Frequency: PRN Dates: Start: 10/27/23 Description: REMINDER(s): Reinforce education provided by Physical Therapy related to balance training. Intervention: Education, Gait training Frequency: PRN Dates: Start: 10/27/23 Intervention: Education, stair training Frequency: PRN Dates: Start: 10/27/23 Intervention: Education, Therapeutic exercise Frequency: PRN Dates: Start: 10/27/23 Frequency of Treatment: 6 days per week This physical Therapy Plan of Care will be carried out until: 1.) The PT plan has been resolved or 2.) The patient is discharged from the acute care hospital PHYSICAL THERAPY VISIT VARIANCE NOTE Attempted to see patient at this time, but unable secondary to: Awaiting Medical Clearance (comment) (pending ortho consult.). Will follow up as appropriate. Consult redirected to spine surgery for consideration for intercostal nerve block. Notified covering hospitalist physician currently Dr. Gómez that I do not perform intercostal nerve blocks. Jailyn Correa MD Spine Surgeon [facility] OCCUPATIONAL THERAPY VISIT VARIANCE NOTE Attempted to see patient at this time, but unable secondary to: Awaiting Medical Clearance (comment). Pending ortho consult. Will follow up as appropriate. Problem: Pain Goal: Manage acute pain Outcome: Partially Met Goal: Manage chronic pain Outcome: Partially Met Goal: Reduced pain sensation Outcome: Partially Met Goal: Achievement of comfort function goal Outcome: Partially Met Problem: Actual or potential alteration in health Goal: Absence of healthcare acquired conditions Outcome: Partially Met Goal: Knowledge of Interdisciplinary Plan of Care Outcome: Partially Met Goal: Knowledge of Enviroment Outcome: Partially Met Problem: Falls, Risk of Goal: Absence of falls Outcome: Partially Met Patient requested this RN to call her son. Son updated. All questions answered at this time. ED Attestation: This visit was performed by both a physician and an APC. I personally evaluated and examined the patient. I performed all aspects of the MDM as documented. In brief, she is a 68 y.o. female who presents with a chief complaint of Fall. After my evaluation, I noticed patient laying in bed yelling complaining of diffuse pain. Luna Carson MD ED Attending Physician [facility] Emergency Department (Please note that portions of this note have been completed with a voice recognition software. Efforts were made to correct any errors, but occasionally words are mis-transcribed.) documented in this encounter [facility] 10-27-2023 Note Formatting of this n ote is different from the original. Physical Therapy Plan of Care Certification Note Coded Admission Diagnosis Fall [W19.XXXA] Intractable pain [R52] Ambulatory dysfunction [R26.2] Contusion of rib on right side, initial encounter [S20.211A] PT Functional Diagnosis: R26.2 Difficulty in walking, not elsewhere classified PT Goals Encounter Problems (Active) Problem: Impaired Strength Dates: Start: 10/27/23 Disciplines: PT Goal: PT- strengthening Dates: Start: 10/27/23 Expected End: 11/03/23 Description: PT - Patient will complete BLE strengthening exercise program 2-3 sets of 10-15 reps independently in preparation for function. Disciplines: PT Intervention: Education, Therapeutic exercise Frequency: PRN Dates: Start: 10/27/23 Problem: Mobility - Impaired Dates: Start: 10/27/23 Disciplines: PT Goal: pt- bed mobility Dates: Start: 10/27/23 Expected End: 11/03/23 Description: PT - Patient will perform bed mobility with supervision to improve functional mobility and safety. Disciplines: PT Goal: PT- sit to stand transfer Dates: Start: 10/27/23 Expected End: 11/03/23 Description: PT - Patient will perform sit to/from stand transfer with stand by assist to improve functional mobility and safety. Disciplines: PT Goal: PT- static balance Dates: Start: 10/27/23 Expected End: 11/03/23 Description: PT - Patient will perform standing static balance activities with device with modified independence to improve functional mobility and safety. Disciplines: PT Goal: PT- dynamic balance Dates: Start: 10/27/23 Expected End: 11/03/23 Description: PT - Patient will perform standing dynamic balance activities with device with supervision to improve functional mobility and safety. Disciplines: PT Goal: PT- ambulation Dates: Start: 10/27/23 Expected End: 11/03/23 Description: PT - Patient will ambulate 100 feet with device with stand by assist to improve functional mobility and safety. Disciplines: PT Goal: PT- stair climbing Dates: Start: 10/27/23 Expected End: 11/03/23 Description: PT - Patient will ascend and descend 4 stairs with non-reciprocal technique with 1 rail with contact guard to improve functional mobility and safety. Disciplines: PT Intervention: Education, Bed mobility training Frequency: PRN Dates: Start: 10/27/23 Intervention: Education, Balance training Frequency: PRN Dates: Start: 10/27/23 Description: REMINDER(s): Reinforce education provided by Physical Therapy related to balance training. Intervention: Education, Gait training Frequency: PRN Dates: Start: 10/27/23 Intervention: Education, stair training Frequency: PRN Dates: Start: 10/27/23 Intervention: Education, Therapeutic exercise Frequency: PRN Dates: Start: 10/27/23 Frequency of Treatment: 6 days per week This physical Therapy Plan of Care will be carried out until: 1.) The PT plan has been resolved or 2.) The patient is discharged from the acute care hospital [facility] 10-27-2023 Consult note Formatting of th is note is different from the original. Physical Therapy PHYSICAL THERAPY EVALUATION Skilled Therapy Needs After Discharge Anticipate Resolution of Current Assessment Limitations Including: Pain, Mechanical Barriers, Social Support Are Skilled Therapy Services Needed After Discharge: Yes Intensity of Skilled Therapy: 2-3 days per week Anticipated Duration of Skilled Therapy: Duration 10 - 30 days DME Recommendation: None Rehab Potential: Good Outcomes Measures Prior Function - Basic Mobility Raw Score: 24 Points Prior Function - Basic Mobility % Impaired: 0% AM-PAC Basic Mobility Raw Score: 16 Points AM-PAC Basic Mobility % Impaired: 47.12% Physical Therapy Assessment History: The following factors influence the patient's participation in the PT plan of care: Personal Factors: Age Environmental Factors: Steps to enter home The following co-morbidities (from this admission or prior) influence the patient's participation in this plan of care: HTN, asthma, fibromyalgia, arthritis Number of History elements affecting this patient's PT plan of care: 3 or more Examination of Body Systems: The patient presents with: Musculoskeletal impairments: Strength, ROM, Pain, Functional Endurance Neurologic Impairments: Balance, Pain Cardiopulmonary Impairments: Activity Tolerance. These impairments result in limitations of Gait, Functional Transfers, Activity Tolerance. These impairments result in restrictions of Community mobility, Household mobility. Number of Body Systems elements affecting this patient's PT plan of care: 3 or more. Clinical Presentation: The patient's clinical presentation for this PT evaluation is evolving with changing characteristics as evidenced by current PT documentation. Activity Tolerance Activity Tolerance: Tolerates 10 - 20 min activity with multiple rests Therapy Precautions Orthotic Devices: No Weight Bearing Status: WFL General Rehab Precautions: Fall risk Balance Assessment Sitting Balance - Static: Stand by assist Sitting Balance - Dynamic: Stand by assist Standing Balance - Static: Stand by assist Meter Maintenance Person - Standing Static: wheeled walker Standing Balance - Dynamic: Contact guard assist Meter Maintenance Person - Standing Dynamic: wheeled walker Bed Mobility Rolling: Minimal assist Sit to Supine: Minimal assist Meter Maintenance Person: bedrails, patient slide sheet / friction-reducing device Transfers Sit to Stand: Minimal assist Meter Maintenance Person: wheeled walker (gait belt) Gait/Locomotion Gait Assistance: Contact guard assist Assistive Device: wheeled walker (gait belt) Distance: 14 Feet Pattern: L decreased step length, R decreased step length, decreased martin (steps per minute) Additional Assessment Details Education provided on importance of mobility to promote return to PLOF. Patient demonstrating self limiting tendencies toward mobility, emotional support and encouragement provided as appropriate. Verbal cues for safety throughout. Patient left supine in bed at end of evaluation. Patient's call light and bedside tray left within reach. Bed alarm engaged due to patient's fall risk score of 4. Patient denied additional needs. White board updated. Home Living Obtained Home Living and PLOF info from: Patient Lives With: Spouse, Son Type of Home: House Home Layout: Two level, Able to live on main level with bedroom/bathroom Steps to enter home: Yes Rails to enter home: 1 rail Number of stairs to enter home: 5 Bathroom Shower/Tub: Walk-in shower Bathroom Toilet: Raised Bathroom Equipment: Grab bars in shower Mobility Equipment: Cane, Rollator ADL Equipment: Java Tech Lead Additional Objective Details - Home Living: Pt uses rollator for mobility at baseline. Prior Level of Function Level of [place] - Transfers/Ambulation/Mobility: Independent with functional transfers, Independent with household ambulation, Independent with community ambulation Level of [place] - ADLs: Independent Level of [place] - Homemaking: Independent Driving: Patient drives Past Medical History: Diagnosis Date Anxiety Arthritis osteo Asthma 08/23/2014 Back pain Cardiomyopathy (HCC) resolved (EF 45% per cath 09/21/2006; EF 55-60% per echo 04/16/2019). Depression Diastolic dysfunction mild per echo on 06/08/2019 Edema Fibromyalgia, primary GERD (gastroesophageal reflux disease) patient denies History of echocardiogram Hypertension 04/01/2015 Migraines Obesity AYO (obstructive sleep apnea) cannot tolerate C-Pap Pneumonia x2 , had 2 pneumonia shots Restless legs syndrome Saphenous vein clot superficial LLE Shoulder joint pain Spinal stenosis Varicose veins of both lower extremities Past Surgical History: Procedure Laterality Date ANTERIOR CERVICAL DISCECTOMY 02/25/2009 C5-6, C6-7 AR'SCOPY SHOULD SAD, SLAP, RCR, RESECT DISTAL CLAVICLE, BICEPS TENODESIS Right 11/04/2015 ARTHROPLASTY HIP TOTAL Right 02/27/2018 Procedure: RIGHT TOTAL HIP ARTHROPLASTY; Surgeon: Gabo Sears MD; Location: [facility] Main OR; Service: Orthopedic BLADDER SUSPENSION BRONCHOSCOPY CARDIAC CATHETERIZATION Bilateral 09/21/2006 COLONOSCOPY CV IR INTERVENTIONAL RADIOLOGY N/A 08/22/2023 Procedure: VR IVC Filter Insert; Surgeon: Lukas Beverly DO; Location: [facility] EP LAB; Service: Interventional Radiology CV IR INTERVENTIONAL RADIOLOGY N/A 10/07/2023 Procedure: VR IVC Filter Removal; Surgeon: Roxana Lopez MD; Location: [facility] VIDEO INTERN; Service: Interventional Radiology FOOT SURGERY Right 03/08/2005 Third interdigital neuroma excision, fourth metatarsal osteotomy w/capsulotomy, fifth metatarsal head excision HARDWARE REMOVAL ANTERIOR CERVICAL 07/22/2014 C5, C6-7 HARDWARE REMOVAL LUMBAR 01/02/2009 L5-S1 w/ redo decompression laminectomy HYSTERECTOMY CARLOS MANUEL BSO Bladder suspension KNEE ARTHROSCOPY W/ LASER Left 2013 LAMINECTOMY DECOMP LUMBAR W/FUSION 4 OR MORE LVL N/A 11/08/2017 Procedure: HARDWARE REMOVAL L4-S1, DECOMPRESSION/FUSION L2-L4, PLIF, REINSTRUMENT L2-S1; Surgeon: Alejo Hummel MD; Location: [facility] Main OR; Service: Orthopedic LAMINECTOMY DECOMP THORACIC W/FUSION 4 OR MORE LVL N/A 08/18/2023 Procedure: Decompression Thoracic 12-Lumbar1, [id number] 1 Discectomy, Interbody fusion, fixation Thoracic 10-Lumbar5, CT BUCK, Local Bone, Posteriorlateral Fusion Thoracic 10-Lumbar2, cement augmentation Thoracic 10; Surgeon: Jose Fraga MD; Location: [facility] Main OR; Service: Orthopedic LAMINECTOMY DISC ANTERIOR CERVICAL W/ FUSION SINGLE LEVEL N/A 03/13/2021 Procedure: Anterior cervical discectomy fusion cervical4-5 with plate and allograft; Surgeon: Jose Fraga MD; Location: [facility] Main OR; Service: Orthopedic LUMBAR LAMINECTOMY 10/11/2003 L5-S1 decompression w/interbody fusion bilateral and posterior fusion fixation LUNG BIOPSY Right ROTATOR CUFF REPAIR Left TONSILLECTOMY TOTAL KNEE ARTHROPLASTY Right WISDOM TOOTH EXTRACTION For complete objective data, detailed plan of care and patient education refer to: PT Evaluation flowsheet, PT Evaluation and Treatment flowsheet, PT Treatment flowsheet, patient Plan of Care, Plan of Care progress note, and Patient Education. This note stands as the current Discharge Summary upon patient discharge from the hospital or completion of Physical Therapy Plan. [facility] 10-27-2023 Consult note Formatting of th is note is different from the original. Occupational Therapy OCCUPATIONAL THERAPY EVALUATION Skilled Therapy Needs After Discharge Anticipate Resolution of Current Assessment Limitations Including: Pain, Mechanical Barriers, Social Support Are Skilled Therapy Services Needed After Discharge: Yes Intensity of Skilled Therapy: 5 to 7 days per week Anticipated Duration of Skilled Therapy: Duration 10 - 30 days DME Recommendation: To be determined at next level of care Rehab Potential: Good RN agreeable with OT evaluation at this time. Patient reports no increased pain upon end of evaluation, left with all immediate needs met, and call light within reach. White board was updated and RN was notified of patient's mobility status. Patient left up in chair with alarm on Fall risk score:4 I utilized the following PPE throughout this therapy session: Gloves, Surgical mask and Safety glasses A Chain Forming Machine Operator did not assist with this evaluation. Outcomes Measures Prior Function Daily Activity Raw Score: 24 Prior Function Daily Activity % Impaired: 0% AM-PAC Daily Activity Raw Score: 16 AM-PAC Daily Activity % Impaired: 53.32% Occupational Therapy Assessment The patient's current functional participation deficits are UE dressing, LE dressing, bathing, toileting, functional mobility. This reduced independence will limit their life roles of premorbid level individual. The patient's co morbidities do affect patient performance in the above activities and roles. The performance deficits are a result of musculoskeletal impairment(s) in generalized debility including balance, acitvity tolerance, safety, and emotional lability, pain intolerance, anxiety. The patient's home setup is a barrier, limitations of family / caregiver support is a barrier for return to prior level of function. The patient's awareness of own capacity and performance is a barrier to return to prior level of function. During the assessment, minimal to moderate modification of task was required and several treatment options were identified in the plan of care. This consultation required expanded review of the medical and therapy history. Activity Tolerance Activity Tolerance: Tolerates less than 10 min activity, no significant change in vital signs Therapy Precautions Orthotic Devices: No Weight Bearing Status: WFL General Rehab Precautions: Back, Fall risk Cognition Overall Cognitive Status: Within Functional Limits Arousal/Alertness: Appropriate responses to stimuli Orientation Level: Oriented X4 Executive functioning: WFL Safety Judgment: Good awareness of safety precautions Problem Solving: Able to problem solve independently Attention: Attends to quiet environment Hearing Status: WFL Social Interaction: WFL ADL Feeding: Independent Grooming: Independent Upper Body Bathing: Minimal assist, Moderate assist Lower Body Bathing: Moderate assist, Maximal assist Upper Body Dressing: Minimal assist, Moderate assist Lower Body Dressing: Moderate assist, Maximal assist Toileting: Moderate assist Functional Mobility: Minimal assist IADL Bed Mobility Supine to Sit: Minimal assist Functional Transfers Sit to Stand: Minimal assist Bed to Chair Transfers: Minimal assist Additional Assessment Details All activities completed in preparation for discharge. Home Living Obtained Home Living and PLOF info from: Patient Lives With: Spouse, Son Type of Home: House Home Layout: Two level, Able to live on main level with bedroom/bathroom Steps to enter home: Yes Rails to enter home: 1 rail Number of stairs to enter home: 5 Bathroom Shower/Tub: Walk-in shower Bathroom Toilet: Raised Bathroom Equipment: Grab bars in shower Mobility Equipment: Cane, Rollator ADL Equipment: Java Tech Lead Additional Objective Details - Home Living: Pt uses rollator for mobility at baseline. Prior Level of Function Level of [place] - Transfers/Ambulation/Mobility: Independent with functional transfers, Independent with household ambulation, Independent with community ambulation Level of [place] - ADLs: Independent Level of [place] - Homemaking: Independent Driving: Patient drives Past Medical History: Diagnosis Date Anxiety Arthritis osteo Asthma 08/23/2014 Back pain Cardiomyopathy (HCC) resolved (EF 45% per cath 09/21/2006; EF 55-60% per echo 04/16/2019). Depression Diastolic dysfunction mild per echo on 06/08/2019 Edema Fibromyalgia, primary GERD (gastroesophageal reflux disease) patient denies History of echocardiogram Hypertension 04/01/2015 Migraines Obesity AYO (obstructive sleep apnea) cannot tolerate C-Pap Pneumonia x2 , had 2 pneumonia shots Restless legs syndrome Saphenous vein clot superficial LLE Shoulder joint pain Spinal stenosis Varicose veins of both lower extremities Past Surgical History: Procedure Laterality Date ANTERIOR CERVICAL DISCECTOMY 02/25/2009 C5-6, C6-7 ABY'BRITTON SHOULD SAD, SLAP, RCR, RESECT DISTAL CLAVICLE, BICEPS TENODESIS Right 11/04/2015 ARTHROPLASTY HIP TOTAL Right 02/27/2018 Procedure: RIGHT TOTAL HIP ARTHROPLASTY; Surgeon: Gabo Sears MD; Location: [facility] Main OR; Service: Orthopedic BLADDER SUSPENSION BRONCHOSCOPY CARDIAC CATHETERIZATION Bilateral 09/21/2006 COLONOSCOPY CV IR INTERVENTIONAL RADIOLOGY N/A 08/22/2023 Procedure: VR IVC Filter Insert; Surgeon: Lukas Beverly DO; Location: [facility] EP LAB; Service: Interventional Radiology CV IR INTERVENTIONAL RADIOLOGY N/A 10/07/2023 Procedure: VR IVC Filter Removal; Surgeon: Roxana Lopez MD; Location: [facility] VIDEO INTERN; Service: Interventional Radiology FOOT SURGERY Right 03/08/2005 Third interdigital neuroma excision, fourth metatarsal osteotomy w/capsulotomy, fifth metatarsal head excision HARDWARE REMOVAL ANTERIOR CERVICAL 07/22/2014 C5, C6-7 HARDWARE REMOVAL LUMBAR 01/02/2009 L5-S1 w/ redo decompression laminectomy HYSTERECTOMY CARLOS MANUEL BSO Bladder suspension KNEE ARTHROSCOPY W/ LASER Left 2013 LAMINECTOMY DECOMP LUMBAR W/FUSION 4 OR MORE LVL N/A 11/08/2017 Procedure: HARDWARE REMOVAL L4-S1, DECOMPRESSION/FUSION L2-L4, PLIF, REINSTRUMENT L2-S1; Surgeon: Alejo Hummel MD; Location: [facility] Main OR; Service: Orthopedic LAMINECTOMY DECOMP THORACIC W/FUSION 4 OR MORE LVL N/A 08/18/2023 Procedure: Decompression Thoracic 12-Lumbar1, [id number] 1 Discectomy, Interbody fusion, fixation Thoracic 10-Lumbar5, CT BUCK, Local Bone, Posteriorlateral Fusion Thoracic 10-Lumbar2, cement augmentation Thoracic 10; Surgeon: Jose Fraga MD; Location: [facility] Main OR; Service: Orthopedic LAMINECTOMY DISC ANTERIOR CERVICAL W/ FUSION SINGLE LEVEL N/A 03/13/2021 Procedure: Anterior cervical discectomy fusion cervical4-5 with plate and allograft; Surgeon: Jose Fraga MD; Location: [facility] Main OR; Service: Orthopedic LUMBAR LAMINECTOMY 10/11/2003 L5-S1 decompression w/interbody fusion bilateral and posterior fusion fixation LUNG BIOPSY Right ROTATOR CUFF REPAIR Left TONSILLECTOMY TOTAL KNEE ARTHROPLASTY Right WISDOM TOOTH EXTRACTION For complete objective data, detailed plan of care and patient education refer to: OT Evaluation flowsheet, OT Evaluation and Treatment flowsheet, OT Treatment flowsheet, patient Plan of Care, Plan of Care progress note, and Patient Education. This note stands as the current Discharge Summary upon patient discharge from the hospital or completion of Occupational Therapy Plan of Care. [facility] 10-27-2023 Consult note Associated Order (s): IP CONSULT TO ORTHOPEDIC SURGERY Consult Note Matthew Perez 1955 Impression/Plan: Problem Status post lumbar spinal fusion T10-L2 08/18/23 Will plan office follow-up for continued monitoring of back pain just above her level of fusion. This may be associated with a stable minimal compression fracture at the next level above and I offered her the option of kyphoplasty at that level. At this point she declines the option of kyphoplasty but is considering. We will plan office follow-up for further discussion after discharge. That is also her preference. A question has been raised regarding intercostal nerve blocks. These might provide some transient improvement in her chest wall pain associated with her rib fractures although this is outside of the scope of my practice and the practice of most spine surgeons. Anesthesia consult is a consideration for that procedure although the degree of clinical improvement is likely to be modest and would not alter the long-term management. No spine surgery intervention is planned for this admission. I will sign off but I am available if reconsulted. History of Present Illness Matthew Perez is a 68 y.o. female. She presents with chest wall pain. After surgery as above she has previously fallen with a subsequent increase in back pain at the upper end of her prior fusion. She has some mild chronic lower extremity and buttock area subjective numbness but without any recent change. Just prior to this admission she has fallen striking her chest wall against a toilet seat she has had severe pain and rib fractures have been suspected. Current Medication Prior to Admission medications Medication Sig Start Date End Date Taking? Authorizing Provider amLODIPine (NORVASC) 10 MG tablet Take 1 (one) tablet (10 mg total) by mouth every morning . Yes Geo Rubio MD clonazePAM (KLONOPIN) 1 MG tablet Take 1 (one) tablet (1 mg total) by mouth 2 (two) times a day as needed for anxiety . 08/23/18 Yes Geo Rubio MD diclofenac sodium 1 % Gel Apply 10 (ten) g topically 3 (three) times a day as needed . Yes Geo Rubio MD furosemide (LASIX) 40 MG tablet Take 1 (one) tablet (40 mg total) by mouth daily . Yes Geo Rubio MD lisinopril (PRINIVIL,ZESTRIL) 20 MG tablet Take 1 (one) tablet (20 mg total) by mouth every morning Reasons: high blood pressure. 06/27/15 Yes Geo Rubio MD montelukast (SINGULAIR) 10 mg tablet Take 1 (one) tablet (10 mg total) by mouth every morning . Yes Geo Rubio MD NONFORMULARY Take 2 tablets by mouth every evening Equate sleep aide 25mg . Yes Geo Rubio MD NONFORMULARY Take 1 tablet by mouth daily as needed Equate stay awake 200mg . Yes Geo Rubio MD rOPINIRole (REQUIP) 2 MG tablet Take 1 (one) tablet (2 mg total) by mouth 3 (three) times a day as needed Reasons: restless legs syndrome, an extreme discomfort in the calf muscles when sitting or lying down. 12/11/16 Yes Geo Rubio MD sertraline (ZOLOFT) 50 MG tablet Take 1 (one) tablet (50 mg total) by mouth every morning . Yes Geo Rubio MD albuterol (Ventolin HFA) 90 mcg/actuation inhaler Inhale 1 (one) puff every 6 (six) hours as needed for wheezing . 04/22/21 08/04/23 Dilip Mckeon MD apixaban (ELIQUIS) 5 mg Tab Take 2 (two) tablets (10 mg total) by mouth 2 (two) times a day for 6 days, continued through 08/30/23. 08/25/23 08/31/23 Erika Carmona, YULIA aspirin 81 MG EC tablet Take 1 (one) tablet (81 mg total) by mouth daily . Geo Rubio MD beclomethasone (QVAR) 40 mcg/actuation inhaler Inhale 2 (two) puffs 2 (two) times a day Rinse mouth . 05/07/21 10/07/23 Dilip Mckeon MD cyclobenzaprine (FLEXERIL) 5 MG tablet Take 1 (one) tablet (5 mg total) by mouth Three times daily as needed . 09/07/23 Geo Rubio MD gabapentin (NEURONTIN) 300 MG capsule Take 1 (one) capsule (300 mg total) by mouth every 8 (eight) hours (Days supply per fill: 30) . 08/24/23 09/23/23 Erika Carmona, YULIA glucosamine/chondr pabon A sod (OSTEO BI-FLEX ORAL) Take 1 tablet by mouth every morning . ProviderGeo MD magnesium gluconate (MAGONATE) 27.5 mg magne- sium (500 mg) tablet Take 1 (one) tablet (500 mg total) by mouth daily . ProviderGeo MD oxyCODONE-acetaminophen (PERCOCET) 10-325 mg per tablet Take 2 (two) tablets by mouth every 4 (four) hours as needed for pain (Days supply per fill: 180 Reasons: pain. ProviderGeo MD Past Medical History: Diagnosis Date Anxiety Arthritis osteo Asthma 08/23/2014 Back pain Cardiomyopathy (HCC) resolved (EF 45% per cath 09/21/2006; EF 55-60% per echo 04/16/2019). Depression Diastolic dysfunction mild per echo on 06/08/2019 Edema Fibromyalgia, primary GERD (gastroesophageal reflux disease) patient denies History of echocardiogram Hypertension 04/01/2015 Migraines Obesity AYO (obstructive sleep apnea) cannot tolerate C-Pap Pneumonia x2 , had 2 pneumonia shots Restless legs syndrome Saphenous vein clot superficial LLE Shoulder joint pain Spinal stenosis Varicose veins of both lower extremities Past Surgical History: Procedure Laterality Date ANTERIOR CERVICAL DISCECTOMY 02/25/2009 C5-6, C6-7 AR'SCOPY SHOULD SAD, SLAP, RCR, RESECT DISTAL CLAVICLE, BICEPS TENODESIS Right 11/04/2015 ARTHROPLASTY HIP TOTAL Right 02/27/2018 Procedure: RIGHT TOTAL HIP ARTHROPLASTY; Surgeon: Gabo Sears MD; Location: [facility] Main OR; Service: Orthopedic BLADDER SUSPENSION BRONCHOSCOPY CARDIAC CATHETERIZATION Bilateral 09/21/2006 COLONOSCOPY CV IR INTERVENTIONAL RADIOLOGY N/A 08/22/2023 Procedure: VR IVC Filter Insert; Surgeon: Lukas Beverly DO; Location: [facility] EP LAB; Service: Interventional Radiology CV IR INTERVENTIONAL RADIOLOGY N/A 10/07/2023 Procedure: VR IVC Filter Removal; Surgeon: Roxana Lopez MD; Location: [facility] VIDEO INTERN; Service: Interventional Radiology FOOT SURGERY Right 03/08/2005 Third interdigital neuroma excision, fourth metatarsal osteotomy w/capsulotomy, fifth metatarsal head excision HARDWARE REMOVAL ANTERIOR CERVICAL 07/22/2014 C5, C6-7 HARDWARE REMOVAL LUMBAR 01/02/2009 L5-S1 w/ redo decompression laminectomy HYSTERECTOMY CARLOS MANUEL BSO Bladder suspension KNEE ARTHROSCOPY W/ LASER Left 2014 LAMINECTOMY DECOMP LUMBAR W/FUSION 4 OR MORE LVL N/A 11/08/2017 Procedure: HARDWARE REMOVAL L4-S1, DECOMPRESSION/FUSION L2-L4, PLIF, REINSTRUMENT L2-S1; Surgeon: Alejo Hummel MD; Location: [facility] Main OR; Service: Orthopedic LAMINECTOMY DECOMP THORACIC W/FUSION 4 OR MORE LVL N/A 08/18/2023 Procedure: Decompression Thoracic 12-Lumbar1, [id number] 1 Discectomy, Interbody fusion, fixation Thoracic 10-Lumbar5, CT BUCK, Local Bone, Posteriorlateral Fusion Thoracic 10-Lumbar2, cement augmentation Thoracic 10; Surgeon: Jose Fraga MD; Location: [facility] Main OR; Service: Orthopedic LAMINECTOMY DISC ANTERIOR CERVICAL W/ FUSION SINGLE LEVEL N/A 03/13/2021 Procedure: Anterior cervical discectomy fusion cervical4-5 with plate and allograft; Surgeon: Jose Fraga MD; Location: [facility] Main OR; Service: Orthopedic LUMBAR LAMINECTOMY 10/11/2003 L5-S1 decompression w/interbody fusion bilateral and posterior fusion fixation LUNG BIOPSY Right ROTATOR CUFF REPAIR Left TONSILLECTOMY TOTAL KNEE ARTHROPLASTY Right WISDOM TOOTH EXTRACTION Patient Active Problem List Diagnosis AYO (obstructive sleep apnea) Asthma Balance disorder Hypertension Protrusion of cervical intervertebral disc C4-5 with stenosis Brachial neuritis Lumbar pain Depression Pre-diabetes Dysphagia Cataract Migraine Bronchogenic cancer (HCC) Restless legs syndrome Tendinopathy of left rotator cuff Varicose vein History of cardiomyopathy Iron deficiency Obesity Difficulty walking Encounter for long-term use of opiate analgesic Varicose veins of lower extremities with complications Left hip pain Status post lumbar spinal fusion T10-L2 08/18/23 Lumbar stenosis L1-2 with neurogenic claudication Spinal stenosis DDD (degenerative disc disease), lumbar Hip osteoarthritis Acute blood loss as cause of postoperative anemia S/P total hip arthroplasty Osteoarthritis of multiple joints Vertigo History of falling Rectocele Protrusion of cervical intervertebral disc C4-5 with stenosis Diastolic dysfunction Status post cervical spinal fusion C4-T1 Inguinal pain Urge urinary incontinence Cardiomyopathy (HCC) Acute low back pain Thoracic disc herniation T12-L1 Displacement of thoracic intervertebral disc without myelopathy Pseudoclaudication syndrome S/P lumbar fusion Back pain at L4-L5 level Ambulatory dysfunction Social History Tobacco Use Smoking status: Never Smokeless tobacco: Never Tobacco comments: 04/21/21 Vaping Use Vaping Use: Never used Substance Use Topics Alcohol use: Yes Alcohol/week: 0.0 standard drinks of alcohol Comment: sometimes 10 a year; rare Drug use: No Comment: tried all forms of medical marijuana without positive results in last 6 weeks Allergies Allergen Reactions Duloxetine GI Intolerance Nausea Nsaids (Non-Steroidal Anti-Inflammatory Drug) GI Intolerance Ibuprofen GI Intolerance Lyrica [Pregabalin] Other (See Comments) nightmares Metformin GI Intolerance Review of systems - All systems are reviewed and are negative except for symptoms related to conditions in problem list family history includes Brain cancer in her mother; Breast cancer in her mother; Diabetes in her father, sister, and another family member; Heart disease in her father; Hypertension in her father, sister, and another family member; Liver cancer in her mother; Lung cancer in her mother; No Known Problems in her brother. Physical Examination BP (!) 151/69 Pulse 93 Temp 98.8 F (37.1 C) (Oral) Resp 16 Ht 5' 3 Wt 83.3 kg (183 lb 10.3 oz) LMP (LMP Unknown) SpO2 (!) 89% BMI 32.53 kg/m She is alert and oriented and cooperative and in no acute distress. She is resting comfortably at bedrest. She notes right-sided chest wall pain with minimal movement. Right-sided chest wall tenderness is noted. Lower extremity motor is strong and symmetric. She has minimal thoracic back pain at the upper portion of her prior fusion. There is no lower lumbar paraspinal or sciatic notch tenderness. Radiological Examination CT of the thoracic and lumbar spine 10/26/2023: Review of the images redemonstrates her previous thoracolumbar fusion. She does have an apparent minimal inferior T9 compression fracture which is stable in comparison with old films obtained as early as late July 2023. This is a subacute injury without any further progressive loss of height. Disc degeneration at T9-10 is seen. Her fusion appears intact without hardware complication. The report: IMPRESSION: 1. No acute traumatic abnormality in the chest, abdomen, or pelvis. 2. No acute fracture in the thoracic and lumbar spine. Remote mild multilevel compression deformities in the thoracic spine. Posterior instrumented fusion spans lower thoracic-sacral spine, without appreciable hardware complication. Jose Fraga MD [facility] 10-26-2023 Consult note Associated Order (s): IP CONSULT TO CARE MANAGEMENT; IP CONSULT TO CARE MANAGEMENT Care Management Consult Note Date: 10/26/2023 Time: 3:43 PM Patient Name: Matthew Perez Date of : 1955 Reason for Consult: Discharge Plan: D/C Disposition: Home HME: Hospital bed Options Reviewed: List provided Reason for Choice: Patient/Family preference Discharging Transportation Plan: Transportation Type: Auto Discharge Plan Status: SW f2f with pt. Pt reported that she lives with spouse and child. Pt has good support. Pt reported she had a hospital bed in the past for a month and sent it back. Feels like she will need again. Okay using same agency. Pt does not have HH but has [facility] services through her insurance that comes and checks in on her. Discussed therapy post hospitalization. Pt unsure whether this will be needed. Pt therapy evals are on hold at this time. Pt has walker at home. Denied barriers to SDOH screening. Plan A Hospital Bed for home Plan B hospital bed for home and therapy services. SW sent message to Physician asking pt question she had asked about when she is getting the shot in my back. Physician reported unable to do inpatient. SW f2f with pt and updated her on that. Pt crying saying she just wants to go home. Is agreeable to out pt follow up for pain management but extremely upset. Reported she has been to [facility] in past and did not have good experience. SW sent referral to spinal pain management in [place]. ZAC called to schedule an appt for Spinal Pain Management, order is received. Order is correct said Dr. Sylvester reviews all referrals and if approved will give to imaging scheduler and will call pt for appt. SW placed order for home hospital bed Assessment and Background Information: Living Arrangements: Spouse/significant other, Children Support Systems: Spouse/significant other Assistance Needed: dischagre needs Type of Residence: Private residence Prior to Admission Home Care Services: Yes Type of Current Home Care Services: Home health care Current Agency Name: ([facility]) Patient expects to be discharged to:: home Does the patient need discharge transport arranged?: Yes Current Home Equipment: Wheeled walker, Cane, Other (Comment), Tub/Shower chair (tedhose) Holistic Assessment Medication adherence problem:: No History of falls in last 6 months:: (!) Yes Family aware of the patient's advance care planning wishes:: Yes [facility] 10-26-2023 Note Formatting of this n ote might be different from the original. PHYSICAL THERAPY VISIT VARIANCE NOTE Attempted to see patient at this time, but unable secondary to: Awaiting Medical Clearance (comment) (pending ortho consult.). Will follow up as appropriate. [facility] 10-26-2023 Note Formatting of this n ote might be different from the original. Consult redirected to spine surgery for consideration for intercostal nerve block. Notified covering hospitalist physician currently Dr. Gómez that I do not perform intercostal nerve blocks. Jailyn Correa MD Spine Surgeon [facility] Work Phone: 10-26-2023 Note Formatting of this n ote might be different from the original. OCCUPATIONAL THERAPY VISIT VARIANCE NOTE Attempted to see patient at this time, but unable secondary to: Awaiting Medical Clearance (comment). Pending ortho consult. Will follow up as appropriate. [facility] 10-26-2023 Note Formatting of this n ote might be different from the original. Problem: Pain Goal: Manage acute pain Outcome: Partially Met Goal: Manage chronic pain Outcome: Partially Met Goal: Reduced pain sensation Outcome: Partially Met Goal: Achievement of comfort function goal Outcome: Partially Met Problem: Actual or potential alteration in health Goal: Absence of healthcare acquired conditions Outcome: Partially Met Goal: Knowledge of Interdisciplinary Plan of Care Outcome: Partially Met Goal: Knowledge of Enviroment Outcome: Partially Met Problem: Falls, Risk of Goal: Absence of falls Outcome: Partially Met [facility] 10-26-2023 Note Formatting of this n ote might be different from the original. Patient requested this RN to call her son. Son updated. All questions answered at this time. [facility] 10-26-2023 Emergency department Note Report called to [facility] 10-26-2023 Emergency department Note Report called to [facility] Attempted to call report to [facility], no answer. Attempted to give patient PO pain medication, patient unable to sit up in bed. States she can not take it because she can not swallow enough water. Patient provided with ice chips. Patient requesting pain medication. CLAUDINE Carias notified. Patient states she needs to use the restroom, requesting a purewick d/t not being able to lift her bottom enough. Purewick placed at this time. Patient requesting ice chips. Primary RN and provider notified. Radiology notified of patient being ready for CT. Associated Order(s): EKG 12-lead [facility] ED Physician Note: NAME: Matthew Perez 68 y.o. CSN: [id number] PCP: Harmony Gee MD Clinical Impression: 1. Fall 2. Contusion of rib on right side, initial encounter 3. Intractable pain Disposition: Patient is being hospitalize to med/surg (regular floor) Follow-up Information Follow-up information has not been specified. Contact information for after-discharge care Follow-up information has not been specified. History: Chief Complaint: Fall HPI: The history was obtained from the patient. She is a 68 y.o. female who presents with a chief complaint of Fall. HPI patient presents to the emergency department after having a fall. Patient reports she was in her bathroom when she lost her balance and fell striking her ribs on the toilet. She denies falling due to dizziness, weakness, syncope. She denies hitting her head or having loss of consciousness. She reports severe pain to her right ribs. She denies taking anticoagulation medication. She has not seen a PCP for this. She has not tried thing for the symptoms. She presents via EMS. She reports having chronic back pain. Patient reports being admitted to the hospital last month due to intractable back pain. PMHx: Past Medical History: Diagnosis Date Anxiety Arthritis osteo Asthma 08/23/2014 Back pain Cardiomyopathy (HCC) resolved (EF 45% per cath 09/21/2006; EF 55-60% per echo 04/16/2019). Depression Diastolic dysfunction mild per echo on 06/08/2019 Edema Fibromyalgia, primary GERD (gastroesophageal reflux disease) patient denies History of echocardiogram Hypertension 04/01/2015 Migraines Obesity AYO (obstructive sleep apnea) cannot tolerate C-Pap Pneumonia x2 , had 2 pneumonia shots Restless legs syndrome Saphenous vein clot superficial LLE Shoulder joint pain Spinal stenosis Varicose veins of both lower extremities PMSx: Past Surgical History: Procedure Laterality Date ANTERIOR CERVICAL DISCECTOMY 02/25/2009 C5-6, C6-7 AR'SCOPY SHOULD SAD, SLAP, RCR, RESECT DISTAL CLAVICLE, BICEPS TENODESIS Right 11/04/2015 ARTHROPLASTY HIP TOTAL Right 02/27/2018 Procedure: RIGHT TOTAL HIP ARTHROPLASTY; Surgeon: Gabo Sears MD; Location: [facility] Main OR; Service: Orthopedic BLADDER SUSPENSION BRONCHOSCOPY CARDIAC CATHETERIZATION Bilateral 09/21/2006 COLONOSCOPY CV IR INTERVENTIONAL RADIOLOGY N/A 08/22/2023 Procedure: VR IVC Filter Insert; Surgeon: Lukas Beverly DO; Location: [facility] EP LAB; Service: Interventional Radiology CV IR INTERVENTIONAL RADIOLOGY N/A 10/07/2023 Procedure: VR IVC Filter Removal; Surgeon: Roxana Lopez MD; Location: [facility] VIDEO INTERN; Service: Interventional Radiology FOOT SURGERY Right 03/08/2005 Third interdigital neuroma excision, fourth metatarsal osteotomy w/capsulotomy, fifth metatarsal head excision HARDWARE REMOVAL ANTERIOR CERVICAL 07/22/2014 C5, C6-7 HARDWARE REMOVAL LUMBAR 01/02/2009 L5-S1 w/ redo decompression laminectomy HYSTERECTOMY CARLOS MANUEL BSO Bladder suspension KNEE ARTHROSCOPY W/ LASER Left 2013 LAMINECTOMY DECOMP LUMBAR W/FUSION 4 OR MORE LVL N/A 11/08/2017 Procedure: HARDWARE REMOVAL L4-S1, DECOMPRESSION/FUSION L2-L4, PLIF, REINSTRUMENT L2-S1; Surgeon: Alejo Hummel MD; Location: [facility] Main OR; Service: Orthopedic LAMINECTOMY DECOMP THORACIC W/FUSION 4 OR MORE LVL N/A 08/18/2023 Procedure: Decompression Thoracic 12-Lumbar1, [id number] 1 Discectomy, Interbody fusion, fixation Thoracic 10-Lumbar5, CT BUCK, Local Bone, Posteriorlateral Fusion Thoracic 10-Lumbar2, cement augmentation Thoracic 10; Surgeon: Jose Fraga MD; Location: [facility] Main OR; Service: Orthopedic LAMINECTOMY DISC ANTERIOR CERVICAL W/ FUSION SINGLE LEVEL N/A 03/13/2021 Procedure: Anterior cervical discectomy fusion cervical4-5 with plate and allograft; Surgeon: Jose Fraga MD; Location: [facility] Main OR; Service: Orthopedic LUMBAR LAMINECTOMY 10/11/2003 L5-S1 decompression w/interbody fusion bilateral and posterior fusion fixation LUNG BIOPSY Right ROTATOR CUFF REPAIR Left TONSILLECTOMY TOTAL KNEE ARTHROPLASTY Right WISDOM TOOTH EXTRACTION FAM. Hx: Family History Problem Relation Age of Onset Hypertension Father Heart disease Father Diabetes Father Breast cancer Mother ; cancer went to brain, liver and lungs Brain cancer Mother Liver cancer Mother Lung cancer Mother Hypertension Sister Diabetes Sister Hypertension Other siblings Diabetes Other siblings No Known Problems Brother Surgical complications Neg Hx Anesthesia problems Neg Hx Clotting disorder Neg Hx Deep vein thrombosis Neg Hx Pulmonary embolism Neg Hx SOC. Hx: Social History Socioeconomic History Marital status: Spouse name: Derrek Tobacco Use Smoking status: Never Smokeless tobacco: Never Tobacco comments: 04/21/21 Vaping Use Vaping Use: Never used Substance and Sexual Activity Alcohol use: Yes Alcohol/week: 0.0 standard drinks of alcohol Comment: sometimes 10 a year; rare Drug use: No Comment: tried all forms of medical marijuana without positive results in last 6 weeks Sexual activity: Yes Partners: Male control/protection: None Social History Narrative Merged History Encounter Social Determinants of Health Financial Resource Strain: Low Risk (08/11/2023) Overall Financial Resource Strain (CARDIA) Difficulty of Paying Living Expenses: Not very hard Food Insecurity: No Food Insecurity (08/11/2023) Hunger Vital Sign Worried About Running Out of Food in the Last Year: Never true Ran Out of Food in the Last Year: Never true Transportation Needs: No Transportation Needs (09/15/2023) OASIS A1250: Transportation Lack of Transportation (Medical): No Lack of Transportation (Non-Medical): No Patient Unable or Declines to Respond: No Housing Stability: Low Risk (08/11/2023) Housing Stability Vital Sign Unable to Pay for Housing in the Last Year: No Number of Places Lived in the Last Year: 1 Unstable Housing in the Last Year: No MEDs: Previous Medications Medication Sig albuterol (Ventolin HFA) 90 mcg/actuation inhaler Inhale 1 (one) puff every 6 (six) hours as needed for wheezing . amLODIPine (NORVASC) 10 MG tablet Take 1 (one) tablet (10 mg total) by mouth every morning . apixaban (ELIQUIS) 5 mg Tab Take 2 (two) tablets (10 mg total) by mouth 2 (two) times a day for 6 days, continued through 08/30/23. aspirin 81 MG EC tablet Take 1 (one) tablet (81 mg total) by mouth daily . beclomethasone (QVAR) 40 mcg/actuation inhaler Inhale 2 (two) puffs 2 (two) times a day Rinse mouth . clonazePAM (KLONOPIN) 1 MG tablet Take 1 (one) tablet (1 mg total) by mouth 2 (two) times a day as needed for anxiety . cyclobenzaprine (FLEXERIL) 5 MG tablet Take 1 (one) tablet (5 mg total) by mouth Three times daily as needed . diclofenac sodium 1 % Gel Apply 10 (ten) g topically 3 (three) times a day as needed . furosemide (LASIX) 40 MG tablet Take 1 (one) tablet (40 mg total) by mouth daily . gabapentin (NEURONTIN) 300 MG capsule Take 1 (one) capsule (300 mg total) by mouth every 8 (eight) hours (Days supply per fill: 30) . glucosamine/chondr pabon A sod (OSTEO BI-FLEX ORAL) Take 1 tablet by mouth every morning . lisinopril (PRINIVIL,ZESTRIL) 20 MG tablet Take 1 (one) tablet (20 mg total) by mouth every morning Reasons: high blood pressure. magnesium gluconate (MAGONATE) 27.5 mg magne- sium (500 mg) tablet Take 1 (one) tablet (500 mg total) by mouth daily . montelukast (SINGULAIR) 10 mg tablet Take 1 (one) tablet (10 mg total) by mouth every morning . NONFORMULARY Take 2 tablets by mouth every evening Equate sleep aide 25mg . NONFORMULARY Take 1 tablet by mouth daily as needed Equate stay awake 200mg . rOPINIRole (REQUIP) 2 MG tablet Take 1 (one) tablet (2 mg total) by mouth 3 (three) times a day as needed Reasons: restless legs syndrome, an extreme discomfort in the calf muscles when sitting or lying down. sertraline (ZOLOFT) 50 MG tablet Take 1 (one) tablet (50 mg total) by mouth every morning . terbinafine HCL (LAMISIL) 250 mg tablet Take 1 (one) tablet (250 mg total) by mouth every morning . ALL: Allergies Allergen Reactions Duloxetine GI Intolerance Nausea Nsaids (Non-Steroidal Anti-Inflammatory Drug) GI Intolerance Ibuprofen GI Intolerance Lyrica [Pregabalin] Other (See Comments) nightmares Metformin GI Intolerance ROS: Review of Systems Constitutional: Negative for chills, fatigue and fever. Eyes: Negative for visual disturbance. Respiratory: Negative for cough and shortness of breath. Cardiovascular: Positive for chest pain. Negative for palpitations and leg swelling. Gastrointestinal: Negative for abdominal pain, diarrhea, nausea and vomiting. Musculoskeletal: Negative for neck pain. Skin: Negative for rash. Neurological: Negative for dizziness, seizures, syncope, speech difficulty, weakness, numbness and headaches. All other systems reviewed and are negative. Positives and pertinent negatives as per HPI. All other systems were reviewed and are negative. Physical Exam: Patient Vitals for the past 24 hrs: BP Temp Temp src Pulse Resp SpO2 Height Weight 10/26/23 0400 132/88 -- -- 91 15 92 % -- -- 10/26/23 0315 (!) 156/87 -- -- 93 14 97 % -- -- 10/26/23 0310 -- -- -- -- (!) 11 -- -- -- 10/26/23 0300 (!) 141/77 -- -- 89 14 91 % -- -- 10/26/23 0230 (!) 150/85 -- -- 96 16 91 % -- -- 10/26/23 0130 (!) 141/81 -- -- (!) 101 15 -- -- -- 10/26/23 0124 -- -- -- -- (!) 19 -- -- -- 10/26/23 0115 (!) 147/87 -- -- (!) 105 14 95 % -- -- 10/26/23 0009 -- -- -- -- (!) 11 -- -- -- 10/26/23 0000 (!) 136/99 -- -- (!) 100 (!) 21 92 % -- -- 10/25/23 2345 (!) 144/125 -- -- (!) 103 18 96 % -- -- 10/25/23 2235 (!) 143/81 98.3 F (36.8 C) Oral (!) 104 18 98 % 5' 3 79.4 kg (175 lb) Physical Exam Vitals and nursing note reviewed. Constitutional: General: She is in acute distress. Appearance: Normal appearance. She is not toxic-appearing or diaphoretic. HENT: Head: Normocephalic and atraumatic. Right Ear: External ear normal. Left Ear: External ear normal. Nose: Nose normal. Mouth/Throat: Mouth: Mucous membranes are moist. Eyes: Pupils: Pupils are equal, round, and reactive to light. Cardiovascular: Rate and Rhythm: Normal rate. Pulses: Normal pulses. Musculoskeletal: Cervical back: Normal range of motion and neck supple. No tenderness. Comments: Patient moves all 4 extremities throughout the difficulty. With palpation of her spine she reports pain to her right ribs. There is no pain to the hips or pelvis. She moves all 4 extremities throughout the difficulty. Pulmonary: Effort: Pulmonary effort is normal. Breath sounds: Normal breath sounds. Comments: Severe pain with palpation to the right lateral chest wall. No pain to the left chest. Abdominal: General: Bowel sounds are normal. Palpations: Abdomen is soft. Comments: With palpation of the abdomen patient reports pain to her right chest. There is no ecchymosis or swelling to the abdomen. Skin: General: Skin is warm and dry. Capillary Refill: Capillary refill takes less than 2 seconds. Findings: No rash. Neurological: General: No focal deficit present. Mental Status: She is alert and oriented to person, place, and time. GCS: GCS eye subscore is 4. GCS verbal subscore is 5. GCS motor subscore is 6. Cranial Nerves: No cranial nerve deficit. Psychiatric: Mood and Affect: Mood normal. Behavior: Behavior normal. Laboratory & Radiological Imaging (if done): Labs Reviewed BASIC METABOLIC PANEL - Abnormal; Notable for the following components: Result Value Glucose 107 (*) BUN/Creatinine Ratio 32.1 (*) All other components within normal limits Narrative: [facility] has implemented the eGFR calculation approach that does not have a coefficient for race that conforms to the NKF-ASN Task Force Recommendations. CBC WITH AUTO DIFFERENTIAL - Abnormal; Notable for the following components: MCV 78.3 (*) MCH 24.9 (*) RDW - CV 15.0 (*) All other components within normal limits PT/INR - Normal Narrative: During the induction phase of oral anticoagulation, the INR may not reflect the anticoagulation status of the patient. Therapeutic ranges for INR's are: Most clinical situations: INR 2.0-3.0 Mechanical Prosthetic Valve: INR 2.5-3.5 Critical: INR >5.0 APTT - Normal Narrative: Therapeutic range for APTT's is 68 - 104 seconds HEPATIC FUNCTION PANEL - Normal CBC AND DIFFERENTIAL Narrative: The following orders were created for panel order CBC w/ Diff. Procedure Abnormality Status --------- ------ CBC Auto Differential[[id number]] Abnormal Final result Please view results for these tests on the individual orders. CT Chest Abdomen Pelvis With IV Contrast Only Final Result 1. No acute traumatic abnormality in the chest, abdomen, or pelvis. 2. No acute fracture in the thoracic and lumbar spine. Remote mild multilevel compression deformities in the thoracic spine. Posterior instrumented fusion spans lower thoracic-sacral spine, without appreciable hardware complication. Workstation ID: [id number] CT Thoracic And Lumbar Spine Reconstructed With 3D Final Result 1. No acute traumatic abnormality in the chest, abdomen, or pelvis. 2. No acute fracture in the thoracic and lumbar spine. Remote mild multilevel compression deformities in the thoracic spine. Posterior instrumented fusion spans lower thoracic-sacral spine, without appreciable hardware complication. Workstation ID: [id number] CT Cervical Spine Without Contrast 3D Final Result 1. No acute fracture or subluxation. 2. Postsurgical changes from C4-T1. Alignment is satisfactory. Workstation ID: [id number] CT Head Or Brain Without Contrast Final Result No CT evidence of an acute intracranial hemorrhage or acute calvarial fracture. Workstation ID: [id number] Procedures: EKG 12-lead Date/Time: 10/26/2023 12:07 AM Performed by: Jv Baker PA-C Authorized by: Emergency, Triage ProtocolMD Rhythm: sinus rhythm BPM: 101 CO Interval: 162 QRS Interval: 114 QT Interval: 382 Clinical impression: non-specific ECG ED Course/ Medical Decision Making: ED Course: Patient was seen and evaluated for above complaint. Patient presents to the emergency department regarding right rib pain after she reports losing her balance and falling. Patient appears uncomfortable. She is requesting Dilaudid. Ordered for CT scan of the brain, CT C-spine. Ordered for CT scan of the chest/undersize pelvis with T and L-spine are reconstruction. Laboratories were obtained. CBC shows normal white blood cell count normal H&H. Basic metabolic profile shows glucose of 107 otherwise normal. Hepatic function normal. PT/PTT normal. On repeat examination patient had yet to of went for her imaging. Patient had refused it as she was requesting additional pain medication. I explained to the patient she has had 2 doses of Dilaudid. She is requesting that she is put to sleep. I explained to the patient that that is not possible. I explained to the patient that it is imperative that we get the imaging to rule out serious life-threatening injury. I explained to the patient she has been here multiple hours and has delayed her testing and it is important that she go have it done immediately. Reviewed NARx score. NARx check at 551. Patient does have history of chronic pain. CT brain per the radiologist shows no CT evidence of acute intracranial hemorrhage or acute calvarial fracture. CT C-spine per the radiologist shows no acute fracture or subluxation. There is postsurgical changes. CT abdomen pelvis returns and per radiologist no acute traumatic finding in the chest/abdomen/pelvis. There is no acute fracture in the thoracic or lumbar spine. There is remote mild multilevel compression deformities of the thoracic spine. There is posterior instrumented fusion spans lower thoracic-sacral spine without appreciable hardware complication. CT scan of the T and L-spine per the radiologist shows no acute thoracic or lumbar spine fracture. On repeat examination patient continues to report intractable pain that she reports is no better after having IV Dilaudid. Ordered for dose of Percocet which she has prescribed at home. Patient states she is unable to go home. She states she is in too much severe pain. I asked the patient if she thinks that she may need a nursing facility to help with her activities of daily living until she is able to care for herself and she feels that as needed. We will admit for PT OT consult, case management consult. Medical Decision Making Considered penetrating head trauma, concussion, subdural hematoma, epidural hematoma, subarachnoid hemorrhage, cerebral contusion, intracerebral hemorrhage, diffuse axonal injury. No LOC or amnesia, normal neurologic exam. Patient denies falling due to dizziness, weakness, syncope. Patient reports falling due to losing her balance. She is awake and alert with normal mental status. Vital signs stable. CT of the brain is negative for acute intracranial abnormality per the radiologist. There is no signs of C-spine fracture or malalignment per the radiologist. Patient has no pain to her hips or pelvis on examination. She moves all 4 extremities throughout the difficulty. She is awake and alert with no mental status. GCS 15. CT scan of the chest/undersize pelvis shows no acute abnormality per the radiologist. CT of the T and L-spine with no signs of fracture or malalignment per the radiologist. Patient continues to report intractable pain. Patient has chronic pain and takes Percocet 6 times a day at home. Unable to control her pain here after multiple doses of Dilaudid. Patient does not feel that she is able to care for herself at home and manage going home. We will admit for PT OT consult, case management consult for shelter. Again patient reports this being a mechanical fall. Problems Addressed: Contusion of rib on right side, initial encounter: acute illness or injury Fall: acute illness or injury Amount and/or Complexity of Data Reviewed Independent Historian: EMS External Data Reviewed: notes. Labs: ordered. Decision-making details documented in ED Course. Radiology: ordered. Decision-making details documented in ED Course. ECG/medicine tests: ordered. Decision-making details documented in ED Course. Discussion of management or test interpretation with external provider(s): Consult: spoke with Dr. Engle who agrees to admit. Risk Decision regarding hospitalization. #415 - Emergency Medicine:Utilization of CT for Minor Blunt Head Trauma (Adult) Patient is 18 or older, presenting with minor blunt head trauma. Head CT (including cosigned orders) was ordered by an emergency patient care coordinator for trauma because (select one or more):[SATISFIES MIPS PERFORMANCE] Reasons: [x] Patient is 65 or older . Jv Baker PA-C ED Physician Preventive Medicine Officer [facility] Emergency Department (Please note that portions of this note have been completed with a voice recognition software. Efforts were made to correct any errors, but occasionally words are mis-transcribed.) Jv Baker PA-C 10/26/23 0409 EMS ([place] [address]) reports being called for a fall. Pt states falling in bath tub hitting her head on an unknown surface and her ribs on the toilet. Right side ribs painful touch. Pt Denies LOC, denies thinners. Pt denies neck pain. Pt arrives in C-Collar, and on backboard. Hx of back and neck surgery's. No IV est, All vitals WNL See EMS report Pt states losing her balance and fell onto the toilet. No Neck pain, states back and rib pain. Pt states hitting her ribs on the toilet right side ribs painful to touch. Also states leg spasms. Bed: 22 Expected date: Expected time: Means of arrival: Comments: 504- Fall, back & rib pain documented in this encounter [facility] 10-26-2023 Emergency department Note Attempted to call report to [address] [place] [address], no answer. [facility] 10-26-2023 History and physical note [place] [facility] Patient Name: Matthew Perez : 1955 MR #: [id number] Admit Date: 10/25/2023 Physicians: Harmony Gee MD (Family); No ref. provider found (Referring) Assessment and Plan: Matthew Perez is a 68 y.o. 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 Frequent Falls Intractable rib pain History of lumbar back pain Fall precautions Trauma barron scan: No acute traumatic abnormality in the chest, abdomen, or pelvis. No acute fracture in the thoracic and lumbar spine. No acute fracture or subluxation of the cervical spine. Postsurgical changes from C4-T1. Alignment is satisfactory. CT head with no evidence of acute intracranial hemorrhage or acute calvarial fracture. Tylenol, lidocaine patch, as needed morphine and Dilaudid per pain level Incentive spirometry Early ambulation Hold Eliquis as below SCDs Consult orthopedic surgery for intercostal nerve block Consult PT/OT Consult case management for discharge planning History of PE s/p IVC Recent IVC placement. Hold Eliquis due to concerns with possible pulmonary contusion. Day team to resume when appropriate Asthma Continue home medication HTN Continue home medication Depression with anxiety Continue home medication Obesity Recommend lifestyle modifications after acute illness Admitted From: home Medication Reconciliation: Unverified Code Status: Prior Quality Measures DVT Prophylaxis: SCDs Michael Catheter: absent The following Vizient risk variables were noted and present on admission: No Vizient risk variables were present on admission Please see assessment and plan for further details. Subjective and Objective: Chief Complaint mechanical fall History of Present Illness Matthew Perez is a 68 y.o. 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 Patient states she was getting out of her shower and slipped. Stated she hit her right side of her anterior chest wall on her toilet and is unsure if she hit her head but noted that her toilet paper ace was also broken. Patient denies loss of consciousness. Patient denies any preceding chest pain, headache, seizure-like activity, palpitations, or racing heart sensation. Patient denied any blurry vision, facial droop, dysarthria, worsening unilateral numbness or weakness from baseline from her chronic LBP. Patient currently rates the pain 10/10 on the pain scale. Endorses inspiratory shortness of breath 2/2 significant pain. States pain radiates from anterior ribs to associated vertebral paraspinal musculature. States the pain is sharp and constant. Worsened with any movement, cough, or inspiration. Nothing has alleviated the pain. Otherwise patient denies fever, chills, cough, ABD pain, nausea, emesis, diarrhea, or dysuria. Discussed case with ED provider. Past Medical History Past Medical History: Diagnosis Date Anxiety Arthritis osteo Asthma 08/23/2014 Back pain Cardiomyopathy (HCC) resolved (EF 45% per cath 09/21/2006; EF 55-60% per echo 04/16/2019). Depression Diastolic dysfunction mild per echo on 06/08/2019 Edema Fibromyalgia, primary GERD (gastroesophageal reflux disease) patient denies History of echocardiogram Hypertension 04/01/2015 Migraines Obesity AYO (obstructive sleep apnea) cannot tolerate C-Pap Pneumonia x2 , had 2 pneumonia shots Restless legs syndrome Saphenous vein clot superficial LLE Shoulder joint pain Spinal stenosis Varicose veins of both lower extremities Past Surgical History Past Surgical History: Procedure Laterality Date ANTERIOR CERVICAL DISCECTOMY 02/25/2009 C5-6, C6-7 AR'BRITTON SHOULD SAD, SLAP, RCR, RESECT DISTAL CLAVICLE, BICEPS TENODESIS Right 11/04/2015 ARTHROPLASTY HIP TOTAL Right 02/27/2018 Procedure: RIGHT TOTAL HIP ARTHROPLASTY; Surgeon: Gabo Sears MD; Location: [facility] Main OR; Service: Orthopedic BLADDER SUSPENSION BRONCHOSCOPY CARDIAC CATHETERIZATION Bilateral 09/21/2006 COLONOSCOPY CV IR INTERVENTIONAL RADIOLOGY N/A 08/22/2023 Procedure: VR IVC Filter Insert; Surgeon: Luksa Beverly DO; Location: [facility] EP LAB; Service: Interventional Radiology CV IR INTERVENTIONAL RADIOLOGY N/A 10/07/2023 Procedure: VR IVC Filter Removal; Surgeon: Roxana Lopez MD; Location: [facility] VIDEO INTERN; Service: Interventional Radiology FOOT SURGERY Right 03/08/2005 Third interdigital neuroma excision, fourth metatarsal osteotomy w/capsulotomy, fifth metatarsal head excision HARDWARE REMOVAL ANTERIOR CERVICAL 07/22/2014 C5, C6-7 HARDWARE REMOVAL LUMBAR 01/02/2009 L5-S1 w/ redo decompression laminectomy HYSTERECTOMY CARLOS MANUEL BSO Bladder suspension KNEE ARTHROSCOPY W/ LASER Left 2013 LAMINECTOMY DECOMP LUMBAR W/FUSION 4 OR MORE LVL N/A 11/08/2017 Procedure: HARDWARE REMOVAL L4-S1, DECOMPRESSION/FUSION L2-L4, PLIF, REINSTRUMENT L2-S1; Surgeon: Alejo Hummel MD; Location: [facility] Main OR; Service: Orthopedic LAMINECTOMY DECOMP THORACIC W/FUSION 4 OR MORE LVL N/A 08/18/2023 Procedure: Decompression Thoracic 12-Lumbar1, [id number] 1 Discectomy, Interbody fusion, fixation Thoracic 10-Lumbar5, CT BUCK, Local Bone, Posteriorlateral Fusion Thoracic 10-Lumbar2, cement augmentation Thoracic 10; Surgeon: Jose Fraga MD; Location: [facility] Main OR; Service: Orthopedic LAMINECTOMY DISC ANTERIOR CERVICAL W/ FUSION SINGLE LEVEL N/A 03/13/2021 Procedure: Anterior cervical discectomy fusion cervical4-5 with plate and allograft; Surgeon: Jose Fraga MD; Location: [facility] Main OR; Service: Orthopedic LUMBAR LAMINECTOMY 10/11/2003 L5-S1 decompression w/interbody fusion bilateral and posterior fusion fixation LUNG BIOPSY Right ROTATOR CUFF REPAIR Left TONSILLECTOMY TOTAL KNEE ARTHROPLASTY Right WISDOM TOOTH EXTRACTION Family History Family History Problem Relation Age of Onset Hypertension Father Heart disease Father Diabetes Father Breast cancer Mother ; cancer went to brain, liver and lungs Brain cancer Mother Liver cancer Mother Lung cancer Mother Hypertension Sister Diabetes Sister Hypertension Other siblings Diabetes Other siblings No Known Problems Brother Surgical complications Neg Hx Anesthesia problems Neg Hx Clotting disorder Neg Hx Deep vein thrombosis Neg Hx Pulmonary embolism Neg Hx Social History Social History Tobacco Use Smoking Status Never Smokeless Tobacco Never Tobacco Comments 04/21/21 Social History Substance and Sexual Activity Alcohol Use Yes Alcohol/week: 0.0 standard drinks of alcohol Comment: sometimes 10 a year; rare Social History Substance and Sexual Activity Drug Use No Comment: tried all forms of medical marijuana without positive results in last 6 weeks Allergy Information I have reviewed the patient's allergies. Duloxetine, Nsaids (non-steroidal anti-inflammatory drug), Ibuprofen, Lyrica [pregabalin], and Metformin Home Medications Home medications were reviewed. Review Of Systems All relevant systems have been reviewed and are negative except as noted in HPI or below Physical Examination BP 132/88 Pulse 91 Temp 98.3 F (36.8 C) (Oral) Resp 15 Ht 5' 3 Wt 79.4 kg (175 lb) LMP (LMP Unknown) SpO2 92% BMI 31.00 kg/m General Appearance: alert; tearful and in pain ; in mild acute distress HEENT: Head- normocephalic; Eyes- EOMI, sclera anicteric; Ears- hearing intact; Nose- no nasal discharge; Throat- mucous membranes moist Cardiovascular: regular rate and rhythm no peripheral edema Respiratory: Inspiratory guarding; lungs clear to auscultation; without wheezes, rales or rhonchi; on room air Abdomen: soft, non-tender, non-distended; positive bowel sounds Neurological: oriented x 3; PERRLA, EOMI, nondysarthric, and without facial droop; no focal findings or movement disorder noted Musculoskeletal: Tenderness to palpation on right anterior/costovertebral angle Skin: normal coloration; no obvious rashes, lesions or skin breakdown Psych: normal mood and affect Laboratory and Additional Data Reviewed Laboratory 10/26/23 4:41 AM Radiology 10/26/23 4:41 AM Cardiology 10/26/23 4:41 AM Medications 10/26/23 4:41 AM Radiology Review: CT Chest Abdomen Pelvis With IV Contrast Only Final Result 1. No acute traumatic abnormality in the chest, abdomen, or pelvis. 2. No acute fracture in the thoracic and lumbar spine. Remote mild multilevel compression deformities in the thoracic spine. Posterior instrumented fusion spans lower thoracic-sacral spine, without appreciable hardware complication. Workstation ID: [id number] CT Thoracic And Lumbar Spine Reconstructed With 3D Final Result 1. No acute traumatic abnormality in the chest, abdomen, or pelvis. 2. No acute fracture in the thoracic and lumbar spine. Remote mild multilevel compression deformities in the thoracic spine. Posterior instrumented fusion spans lower thoracic-sacral spine, without appreciable hardware complication. Workstation ID: [id number] CT Cervical Spine Without Contrast 3D Final Result 1. No acute fracture or subluxation. 2. Postsurgical changes from C4-T1. Alignment is satisfactory. Workstation ID: [id number] CT Head Or Brain Without Contrast Final Result No CT evidence of an acute intracranial hemorrhage or acute calvarial fracture. Workstation ID: [id number] This dictation was created with voice recognition software. While attempts have been made to review the dictation as it is transcribed, on occasion the spoken word can be misinterpreted by the technology leading to omissions or inappropriate words, phrases or sentences. [facility] 10-26-2023 History and physical note [place] HISTORY AND PHYSICAL Patient Name: Matthew Perez : 1955 MR #: [id number] Admit Date: 10/25/2023 Physicians: Harmony Gee MD (Family); No ref. provider found (Referring) Assessment and Plan: Matthew Perez is a 68 y.o. 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 Frequent Falls Intractable rib pain History of lumbar back pain Fall precautions Trauma barron scan: No acute traumatic abnormality in the chest, abdomen, or pelvis. No acute fracture in the thoracic and lumbar spine. No acute fracture or subluxation of the cervical spine. Postsurgical changes from C4-T1. Alignment is satisfactory. CT head with no evidence of acute intracranial hemorrhage or acute calvarial fracture. Tylenol, lidocaine patch, as needed morphine and Dilaudid per pain level Incentive spirometry Early ambulation Hold Eliquis as below SCDs Consult orthopedic surgery for intercostal nerve block Consult PT/OT Consult case management for discharge planning History of PE s/p IVC Recent IVC placement. Hold Eliquis due to concerns with possible pulmonary contusion. Day team to resume when appropriate Asthma Continue home medication HTN Continue home medication Depression with anxiety Continue home medication Obesity Recommend lifestyle modifications after acute illness Admitted From: home Medication Reconciliation: Unverified Code Status: Prior Quality Measures DVT Prophylaxis: SCDs Michael Catheter: absent The following Vizient risk variables were noted and present on admission: No Vizient risk variables were present on admission Please see assessment and plan for further details. Subjective and Objective: Chief Complaint mechanical fall History of Present Illness Matthew Perez is a 68 y.o. 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 Patient states she was getting out of her shower and slipped. Stated she hit her right side of her anterior chest wall on her toilet and is unsure if she hit her head but noted that her toilet paper ace was also broken. Patient denies loss of consciousness. Patient denies any preceding chest pain, headache, seizure-like activity, palpitations, or racing heart sensation. Patient denied any blurry vision, facial droop, dysarthria, worsening unilateral numbness or weakness from baseline from her chronic LBP. Patient currently rates the pain 10/10 on the pain scale. Endorses inspiratory shortness of breath 2/2 significant pain. States pain radiates from anterior ribs to associated vertebral paraspinal musculature. States the pain is sharp and constant. Worsened with any movement, cough, or inspiration. Nothing has alleviated the pain. Otherwise patient denies fever, chills, cough, ABD pain, nausea, emesis, diarrhea, or dysuria. Discussed case with ED provider. Past Medical History Past Medical History: Diagnosis Date Anxiety Arthritis osteo Asthma 08/23/2014 Back pain Cardiomyopathy (HCC) resolved (EF 45% per cath 09/21/2006; EF 55-60% per echo 04/16/2019). Depression Diastolic dysfunction mild per echo on 06/08/2019 Edema Fibromyalgia, primary GERD (gastroesophageal reflux disease) patient denies History of echocardiogram Hypertension 04/01/2015 Migraines Obesity AYO (obstructive sleep apnea) cannot tolerate C-Pap Pneumonia x2 , had 2 pneumonia shots Restless legs syndrome Saphenous vein clot superficial LLE Shoulder joint pain Spinal stenosis Varicose veins of both lower extremities Past Surgical History Past Surgical History: Procedure Laterality Date ANTERIOR CERVICAL DISCECTOMY 02/25/2009 C5-6, C6-7 AR'SCOPY SHOULD SAD, SLAP, RCR, RESECT DISTAL CLAVICLE, BICEPS TENODESIS Right 11/04/2015 ARTHROPLASTY HIP TOTAL Right 02/27/2018 Procedure: RIGHT TOTAL HIP ARTHROPLASTY; Surgeon: Gabo Sears MD; Location: [facility] Main OR; Service: Orthopedic BLADDER SUSPENSION BRONCHOSCOPY CARDIAC CATHETERIZATION Bilateral 09/21/2006 COLONOSCOPY CV IR INTERVENTIONAL RADIOLOGY N/A 08/22/2023 Procedure: VR IVC Filter Insert; Surgeon: Lukas Beverly DO; Location: [facility] EP LAB; Service: Interventional Radiology CV IR INTERVENTIONAL RADIOLOGY N/A 10/07/2023 Procedure: VR IVC Filter Removal; Surgeon: Roxana Lopez MD; Location: [facility] VIDEO INTERN; Service: Interventional Radiology FOOT SURGERY Right 03/08/2005 Third interdigital neuroma excision, fourth metatarsal osteotomy w/capsulotomy, fifth metatarsal head excision HARDWARE REMOVAL ANTERIOR CERVICAL 07/22/2014 C5, C6-7 HARDWARE REMOVAL LUMBAR 01/02/2009 L5-S1 w/ redo decompression laminectomy HYSTERECTOMY CARLOS MANUEL BSO Bladder suspension KNEE ARTHROSCOPY W/ LASER Left 2013 LAMINECTOMY DECOMP LUMBAR W/FUSION 4 OR MORE LVL N/A 11/08/2017 Procedure: HARDWARE REMOVAL L4-S1, DECOMPRESSION/FUSION L2-L4, PLIF, REINSTRUMENT L2-S1; Surgeon: Alejo Hummel MD; Location: [facility] Main OR; Service: Orthopedic LAMINECTOMY DECOMP THORACIC W/FUSION 4 OR MORE LVL N/A 08/18/2023 Procedure: Decompression Thoracic 12-Lumbar1, [id number] 1 Discectomy, Interbody fusion, fixation Thoracic 10-Lumbar5, CT BUCK, Local Bone, Posteriorlateral Fusion Thoracic 10-Lumbar2, cement augmentation Thoracic 10; Surgeon: Jose Fraga MD; Location: [facility] Main OR; Service: Orthopedic LAMINECTOMY DISC ANTERIOR CERVICAL W/ FUSION SINGLE LEVEL N/A 03/13/2021 Procedure: Anterior cervical discectomy fusion cervical4-5 with plate and allograft; Surgeon: Jose Fraga MD; Location: [facility] Main OR; Service: Orthopedic LUMBAR LAMINECTOMY 10/11/2003 L5-S1 decompression w/interbody fusion bilateral and posterior fusion fixation LUNG BIOPSY Right ROTATOR CUFF REPAIR Left TONSILLECTOMY TOTAL KNEE ARTHROPLASTY Right WISDOM TOOTH EXTRACTION Family History Family History Problem Relation Age of Onset Hypertension Father Heart disease Father Diabetes Father Breast cancer Mother ; cancer went to brain, liver and lungs Brain cancer Mother Liver cancer Mother Lung cancer Mother Hypertension Sister Diabetes Sister Hypertension Other siblings Diabetes Other siblings No Known Problems Brother Surgical complications Neg Hx Anesthesia problems Neg Hx Clotting disorder Neg Hx Deep vein thrombosis Neg Hx Pulmonary embolism Neg Hx Social History Social History Tobacco Use Smoking Status Never Smokeless Tobacco Never Tobacco Comments 04/21/21 Social History Substance and Sexual Activity Alcohol Use Yes Alcohol/week: 0.0 standard drinks of alcohol Comment: sometimes 10 a year; rare Social History Substance and Sexual Activity Drug Use No Comment: tried all forms of medical marijuana without positive results in last 6 weeks Allergy Information I have reviewed the patient's allergies. Duloxetine, Nsaids (non-steroidal anti-inflammatory drug), Ibuprofen, Lyrica [pregabalin], and Metformin Home Medications Home medications were reviewed. Review Of Systems All relevant systems have been reviewed and are negative except as noted in HPI or below Physical Examination BP 132/88 Pulse 91 Temp 98.3 F (36.8 C) (Oral) Resp 15 Ht 5' 3 Wt 79.4 kg (175 lb) LMP (LMP Unknown) SpO2 92% BMI 31.00 kg/m General Appearance: alert; tearful and in pain ; in mild acute distress HEENT: Head- normocephalic; Eyes- EOMI, sclera anicteric; Ears- hearing intact; Nose- no nasal discharge; Throat- mucous membranes moist Cardiovascular: regular rate and rhythm no peripheral edema Respiratory: Inspiratory guarding; lungs clear to auscultation; without wheezes, rales or rhonchi; on room air Abdomen: soft, non-tender, non-distended; positive bowel sounds Neurological: oriented x 3; PERRLA, EOMI, nondysarthric, and without facial droop; no focal findings or movement disorder noted Musculoskeletal: Tenderness to palpation on right anterior/costovertebral angle Skin: normal coloration; no obvious rashes, lesions or skin breakdown Psych: normal mood and affect Laboratory and Additional Data Reviewed Laboratory 10/26/23 4:41 AM Radiology 10/26/23 4:41 AM Cardiology 10/26/23 4:41 AM Medications 10/26/23 4:41 AM Radiology Review: CT Chest Abdomen Pelvis With IV Contrast Only Final Result 1. No acute traumatic abnormality in the chest, abdomen, or pelvis. 2. No acute fracture in the thoracic and lumbar spine. Remote mild multilevel compression deformities in the thoracic spine. Posterior instrumented fusion spans lower thoracic-sacral spine, without appreciable hardware complication. Workstation ID: [id number] CT Thoracic And Lumbar Spine Reconstructed With 3D Final Result 1. No acute traumatic abnormality in the chest, abdomen, or pelvis. 2. No acute fracture in the thoracic and lumbar spine. Remote mild multilevel compression deformities in the thoracic spine. Posterior instrumented fusion spans lower thoracic-sacral spine, without appreciable hardware complication. Workstation ID: [id number] CT Cervical Spine Without Contrast 3D Final Result 1. No acute fracture or subluxation. 2. Postsurgical changes from C4-T1. Alignment is satisfactory. Workstation ID: [id number] CT Head Or Brain Without Contrast Final Result No CT evidence of an acute intracranial hemorrhage or acute calvarial fracture. Workstation ID: [id number] This dictation was created with voice recognition software. While attempts have been made to review the dictation as it is transcribed, on occasion the spoken word can be misinterpreted by the technology leading to omissions or inappropriate words, phrases or sentences. documented in this encounter [facility] 10-26-2023 Emergency department Note Attempted to give patient PO pain medication, patient unable to sit up in bed. States she can not take it because she can not swallow enough water. [facility] 10-26-2023 Note Formatting of this n ote might be different from the original. ED Attestation: This visit was performed by both a physician and an APC. I personally evaluated and examined the patient. I performed all aspects of the MDM as documented. In brief, she is a 68 y.o. female who presents with a chief complaint of Fall. After my evaluation, I noticed patient laying in bed yelling complaining of diffuse pain. Luna Carson MD ED Attending Physician [facility] Emergency Department (Please note that portions of this note have been completed with a voice recognition software. Efforts were made to correct any errors, but occasionally words are mis-transcribed.) [facility] Work Phone: 10-26-2023 Emergency department Note Patient provided with ice chips. [facility] 10-26-2023 Emergency department Note Patient requesting pain medication. CLAUDINE Carias notified. [facility] 10-26-2023 Emergency department Note Patient states she needs to use the restroom, requesting a purewick d/t not being able to lift her bottom enough. Purewick placed at this time. Patient requesting ice chips. Primary RN and provider notified. [facility] 10-26-2023 Emergency department Note Radiology notified of patient being ready for CT. [facility] 10-26-2023 Physician Emergency department Note Associated Order(s): EKG 12-lead [facility] ED Physician Note: NAME: Matthew Perez 68 y.o. CSN: [id number] PCP: Harmony Gee MD Clinical Impression: 1. Fall 2. Contusion of rib on right side, initial encounter 3. Intractable pain Disposition: Patient is being hospitalize to med/surg (regular floor) Follow-up Information Follow-up information has not been specified. Contact information for after-discharge care Follow-up information has not been specified. History: Chief Complaint: Fall HPI: The history was obtained from the patient. She is a 68 y.o. female who presents with a chief complaint of Fall. HPI patient presents to the emergency department after having a fall. Patient reports she was in her bathroom when she lost her balance and fell striking her ribs on the toilet. She denies falling due to dizziness, weakness, syncope. She denies hitting her head or having loss of consciousness. She reports severe pain to her right ribs. She denies taking anticoagulation medication. She has not seen a PCP for this. She has not tried thing for the symptoms. She presents via EMS. She reports having chronic back pain. Patient reports being admitted to the hospital last month due to intractable back pain. PMHx: Past Medical History: Diagnosis Date Anxiety Arthritis osteo Asthma 08/23/2014 Back pain Cardiomyopathy (HCC) resolved (EF 45% per cath 09/21/2006; EF 55-60% per echo 04/16/2019). Depression Diastolic dysfunction mild per echo on 06/08/2019 Edema Fibromyalgia, primary GERD (gastroesophageal reflux disease) patient denies History of echocardiogram Hypertension 04/01/2015 Migraines Obesity AYO (obstructive sleep apnea) cannot tolerate C-Pap Pneumonia x2 , had 2 pneumonia shots Restless legs syndrome Saphenous vein clot superficial LLE Shoulder joint pain Spinal stenosis Varicose veins of both lower extremities PMSx: Past Surgical History: Procedure Laterality Date ANTERIOR CERVICAL DISCECTOMY 02/25/2009 C5-6, C6-7 AR'[place]TON SHOULD SAD, SLAP, RCR, RESECT DISTAL CLAVICLE, BICEPS TENODESIS Right 11/04/2015 ARTHROPLASTY HIP TOTAL Right 02/27/2018 Procedure: RIGHT TOTAL HIP ARTHROPLASTY; Surgeon: Gabo Sears MD; Location: [facility] Main OR; Service: Orthopedic BLADDER SUSPENSION BRONCHOSCOPY CARDIAC CATHETERIZATION Bilateral 09/21/2006 COLONOSCOPY CV IR INTERVENTIONAL RADIOLOGY N/A 08/22/2023 Procedure: VR IVC Filter Insert; Surgeon: Lukas Beverly DO; Location: [facility] EP LAB; Service: Interventional Radiology CV IR INTERVENTIONAL RADIOLOGY N/A 10/07/2023 Procedure: VR IVC Filter Removal; Surgeon: Roxana Lopez MD; Location: [facility] VIDEO INTERN; Service: Interventional Radiology FOOT SURGERY Right 03/08/2005 Third interdigital neuroma excision, fourth metatarsal osteotomy w/capsulotomy, fifth metatarsal head excision HARDWARE REMOVAL ANTERIOR CERVICAL 07/22/2014 C5, C6-7 HARDWARE REMOVAL LUMBAR 01/02/2009 L5-S1 w/ redo decompression laminectomy HYSTERECTOMY CARLOS MANUEL BSO Bladder suspension KNEE ARTHROSCOPY W/ LASER Left 2013 LAMINECTOMY DECOMP LUMBAR W/FUSION 4 OR MORE LVL N/A 11/08/2017 Procedure: HARDWARE REMOVAL L4-S1, DECOMPRESSION/FUSION L2-L4, PLIF, REINSTRUMENT L2-S1; Surgeon: Alejo Hummel MD; Location: [facility] Main OR; Service: Orthopedic LAMINECTOMY DECOMP THORACIC W/FUSION 4 OR MORE LVL N/A 08/18/2023 Procedure: Decompression Thoracic 12-Lumbar1, [id number] 1 Discectomy, Interbody fusion, fixation Thoracic 10-Lumbar5, CT BUCK, Local Bone, Posteriorlateral Fusion Thoracic 10-Lumbar2, cement augmentation Thoracic 10; Surgeon: Jose Fraga MD; Location: [facility] Main OR; Service: Orthopedic LAMINECTOMY DISC ANTERIOR CERVICAL W/ FUSION SINGLE LEVEL N/A 03/13/2021 Procedure: Anterior cervical discectomy fusion cervical4-5 with plate and allograft; Surgeon: Jose Fraga MD; Location: [facility] Main OR; Service: Orthopedic LUMBAR LAMINECTOMY 10/11/2003 L5-S1 decompression w/interbody fusion bilateral and posterior fusion fixation LUNG BIOPSY Right ROTATOR CUFF REPAIR Left TONSILLECTOMY TOTAL KNEE ARTHROPLASTY Right WISDOM TOOTH EXTRACTION FAM. Hx: Family History Problem Relation Age of Onset Hypertension Father Heart disease Father Diabetes Father Breast cancer Mother ; cancer went to brain, liver and lungs Brain cancer Mother Liver cancer Mother Lung cancer Mother Hypertension Sister Diabetes Sister Hypertension Other siblings Diabetes Other siblings No Known Problems Brother Surgical complications Neg Hx Anesthesia problems Neg Hx Clotting disorder Neg Hx Deep vein thrombosis Neg Hx Pulmonary embolism Neg Hx SOC. Hx: Social History Socioeconomic History Marital status: Spouse name: Derrek Tobacco Use Smoking status: Never Smokeless tobacco: Never Tobacco comments: 04/21/21 Vaping Use Vaping Use: Never used Substance and Sexual Activity Alcohol use: Yes Alcohol/week: 0.0 standard drinks of alcohol Comment: sometimes 10 a year; rare Drug use: No Comment: tried all forms of medical marijuana without positive results in last 6 weeks Sexual activity: Yes Partners: Male control/protection: None Social History Narrative Merged History Encounter Social Determinants of Health Financial Resource Strain: Low Risk (08/11/2023) Overall Financial Resource Strain (CARDIA) Difficulty of Paying Living Expenses: Not very hard Food Insecurity: No Food Insecurity (08/11/2023) Hunger Vital Sign Worried About Running Out of Food in the Last Year: Never true Ran Out of Food in the Last Year: Never true Transportation Needs: No Transportation Needs (09/15/2023) OASIS A1250: Transportation Lack of Transportation (Medical): No Lack of Transportation (Non-Medical): No Patient Unable or Declines to Respond: No Housing Stability: Low Risk (08/11/2023) Housing Stability Vital Sign Unable to Pay for Housing in the Last Year: No Number of Places Lived in the Last Year: 1 Unstable Housing in the Last Year: No MEDs: Previous Medications Medication Sig albuterol (Ventolin HFA) 90 mcg/actuation inhaler Inhale 1 (one) puff every 6 (six) hours as needed for wheezing . amLODIPine (NORVASC) 10 MG tablet Take 1 (one) tablet (10 mg total) by mouth every morning . apixaban (ELIQUIS) 5 mg Tab Take 2 (two) tablets (10 mg total) by mouth 2 (two) times a day for 6 days, continued through 08/30/23. aspirin 81 MG EC tablet Take 1 (one) tablet (81 mg total) by mouth daily . beclomethasone (QVAR) 40 mcg/actuation inhaler Inhale 2 (two) puffs 2 (two) times a day Rinse mouth . clonazePAM (KLONOPIN) 1 MG tablet Take 1 (one) tablet (1 mg total) by mouth 2 (two) times a day as needed for anxiety . cyclobenzaprine (FLEXERIL) 5 MG tablet Take 1 (one) tablet (5 mg total) by mouth Three times daily as needed . diclofenac sodium 1 % Gel Apply 10 (ten) g topically 3 (three) times a day as needed . furosemide (LASIX) 40 MG tablet Take 1 (one) tablet (40 mg total) by mouth daily . gabapentin (NEURONTIN) 300 MG capsule Take 1 (one) capsule (300 mg total) by mouth every 8 (eight) hours (Days supply per fill: 30) . glucosamine/chondr pabon A sod (OSTEO BI-FLEX ORAL) Take 1 tablet by mouth every morning . lisinopril (PRINIVIL,ZESTRIL) 20 MG tablet Take 1 (one) tablet (20 mg total) by mouth every morning Reasons: high blood pressure. magnesium gluconate (MAGONATE) 27.5 mg magne- sium (500 mg) tablet Take 1 (one) tablet (500 mg total) by mouth daily . montelukast (SINGULAIR) 10 mg tablet Take 1 (one) tablet (10 mg total) by mouth every morning . NONFORMULARY Take 2 tablets by mouth every evening Equate sleep aide 25mg . NONFORMULARY Take 1 tablet by mouth daily as needed Equate stay awake 200mg . rOPINIRole (REQUIP) 2 MG tablet Take 1 (one) tablet (2 mg total) by mouth 3 (three) times a day as needed Reasons: restless legs syndrome, an extreme discomfort in the calf muscles when sitting or lying down. sertraline (ZOLOFT) 50 MG tablet Take 1 (one) tablet (50 mg total) by mouth every morning . terbinafine HCL (LAMISIL) 250 mg tablet Take 1 (one) tablet (250 mg total) by mouth every morning . ALL: Allergies Allergen Reactions Duloxetine GI Intolerance Nausea Nsaids (Non-Steroidal Anti-Inflammatory Drug) GI Intolerance Ibuprofen GI Intolerance Lyrica [Pregabalin] Other (See Comments) nightmares Metformin GI Intolerance ROS: Review of Systems Constitutional: Negative for chills, fatigue and fever. Eyes: Negative for visual disturbance. Respiratory: Negative for cough and shortness of breath. Cardiovascular: Positive for chest pain. Negative for palpitations and leg swelling. Gastrointestinal: Negative for abdominal pain, diarrhea, nausea and vomiting. Musculoskeletal: Negative for neck pain. Skin: Negative for rash. Neurological: Negative for dizziness, seizures, syncope, speech difficulty, weakness, numbness and headaches. All other systems reviewed and are negative. Positives and pertinent negatives as per HPI. All other systems were reviewed and are negative. Physical Exam: Patient Vitals for the past 24 hrs: BP Temp Temp src Pulse Resp SpO2 Height Weight 10/26/23 0400 132/88 -- -- 91 15 92 % -- -- 10/26/23 0315 (!) 156/87 -- -- 93 14 97 % -- -- 10/26/23 0310 -- -- -- -- (!) 11 -- -- -- 10/26/23 0300 (!) 141/77 -- -- 89 14 91 % -- -- 10/26/23 0230 (!) 150/85 -- -- 96 16 91 % -- -- 10/26/23 0130 (!) 141/81 -- -- (!) 101 15 -- -- -- 10/26/23 0124 -- -- -- -- (!) 19 -- -- -- 10/26/23 0115 (!) 147/87 -- -- (!) 105 14 95 % -- -- 10/26/23 0009 -- -- -- -- (!) 11 -- -- -- 10/26/23 0000 (!) 136/99 -- -- (!) 100 (!) 21 92 % -- -- 10/25/23 2345 (!) 144/125 -- -- (!) 103 18 96 % -- -- 10/25/23 2235 (!) 143/81 98.3 F (36.8 C) Oral (!) 104 18 98 % 5' 3 79.4 kg (175 lb) Physical Exam Vitals and nursing note reviewed. Constitutional: General: She is in acute distress. Appearance: Normal appearance. She is not toxic-appearing or diaphoretic. HENT: Head: Normocephalic and atraumatic. Right Ear: External ear normal. Left Ear: External ear normal. Nose: Nose normal. Mouth/Throat: Mouth: Mucous membranes are moist. Eyes: Pupils: Pupils are equal, round, and reactive to light. Cardiovascular: Rate and Rhythm: Normal rate. Pulses: Normal pulses. Musculoskeletal: Cervical back: Normal range of motion and neck supple. No tenderness. Comments: Patient moves all 4 extremities throughout the difficulty. With palpation of her spine she reports pain to her right ribs. There is no pain to the hips or pelvis. She moves all 4 extremities throughout the difficulty. Pulmonary: Effort: Pulmonary effort is normal. Breath sounds: Normal breath sounds. Comments: Severe pain with palpation to the right lateral chest wall. No pain to the left chest. Abdominal: General: Bowel sounds are normal. Palpations: Abdomen is soft. Comments: With palpation of the abdomen patient reports pain to her right chest. There is no ecchymosis or swelling to the abdomen. Skin: General: Skin is warm and dry. Capillary Refill: Capillary refill takes less than 2 seconds. Findings: No rash. Neurological: General: No focal deficit present. Mental Status: She is alert and oriented to person, place, and time. GCS: GCS eye subscore is 4. GCS verbal subscore is 5. GCS motor subscore is 6. Cranial Nerves: No cranial nerve deficit. Psychiatric: Mood and Affect: Mood normal. Behavior: Behavior normal. Laboratory & Radiological Imaging (if done): Labs Reviewed BASIC METABOLIC PANEL - Abnormal; Notable for the following components: Result Value Glucose 107 (*) BUN/Creatinine Ratio 32.1 (*) All other components within normal limits Narrative: [facility] has implemented the eGFR calculation approach that does not have a coefficient for race that conforms to the NKF-ASN Task Force Recommendations. CBC WITH AUTO DIFFERENTIAL - Abnormal; Notable for the following components: MCV 78.3 (*) MCH 24.9 (*) RDW - CV 15.0 (*) All other components within normal limits PT/INR - Normal Narrative: During the induction phase of oral anticoagulation, the INR may not reflect the anticoagulation status of the patient. Therapeutic ranges for INR's are: Most clinical situations: INR 2.0-3.0 Mechanical Prosthetic Valve: INR 2.5-3.5 Critical: INR >5.0 APTT - Normal Narrative: Therapeutic range for APTT's is 68 - 104 seconds HEPATIC FUNCTION PANEL - Normal CBC AND DIFFERENTIAL Narrative: The following orders were created for panel order CBC w/ Diff. Procedure Abnormality Status --------- ------ CBC Auto Differential[[id number]] Abnormal Final result Please view results for these tests on the individual orders. CT Chest Abdomen Pelvis With IV Contrast Only Final Result 1. No acute traumatic abnormality in the chest, abdomen, or pelvis. 2. No acute fracture in the thoracic and lumbar spine. Remote mild multilevel compression deformities in the thoracic spine. Posterior instrumented fusion spans lower thoracic-sacral spine, without appreciable hardware complication. Workstation ID: [id number] CT Thoracic And Lumbar Spine Reconstructed With 3D Final Result 1. No acute traumatic abnormality in the chest, abdomen, or pelvis. 2. No acute fracture in the thoracic and lumbar spine. Remote mild multilevel compression deformities in the thoracic spine. Posterior instrumented fusion spans lower thoracic-sacral spine, without appreciable hardware complication. Workstation ID: [id number] CT Cervical Spine Without Contrast 3D Final Result 1. No acute fracture or subluxation. 2. Postsurgical changes from C4-T1. Alignment is satisfactory. Workstation ID: [id number] CT Head Or Brain Without Contrast Final Result No CT evidence of an acute intracranial hemorrhage or acute calvarial fracture. Workstation ID: [id number] Procedures: EKG 12-lead Date/Time: 10/26/2023 12:07 AM Performed by: Jv Baker PA-C Authorized by: Emergency, Triage Protocol, Rhythm: sinus rhythm BPM: 101 CO Interval: 162 QRS Interval: 114 QT Interval: 382 Clinical impression: non-specific ECG ED Course/ Medical Decision Making: ED Course: Patient was seen and evaluated for above complaint. Patient presents to the emergency department regarding right rib pain after she reports losing her balance and falling. Patient appears uncomfortable. She is requesting Dilaudid. Ordered for CT scan of the brain, CT C-spine. Ordered for CT scan of the chest/undersize pelvis with T and L-spine are reconstruction. Laboratories were obtained. CBC shows normal white blood cell count normal H&H. Basic metabolic profile shows glucose of 107 otherwise normal. Hepatic function normal. PT/PTT normal. On repeat examination patient had yet to of went for her imaging. Patient had refused it as she was requesting additional pain medication. I explained to the patient she has had 2 doses of Dilaudid. She is requesting that she is put to sleep. I explained to the patient that that is not possible. I explained to the patient that it is imperative that we get the imaging to rule out serious life-threatening injury. I explained to the patient she has been here multiple hours and has delayed her testing and it is important that she go have it done immediately. Reviewed NARx score. NARx check at 551. Patient does have history of chronic pain. CT brain per the radiologist shows no CT evidence of acute intracranial hemorrhage or acute calvarial fracture. CT C-spine per the radiologist shows no acute fracture or subluxation. There is postsurgical changes. CT abdomen pelvis returns and per radiologist no acute traumatic finding in the chest/abdomen/pelvis. There is no acute fracture in the thoracic or lumbar spine. There is remote mild multilevel compression deformities of the thoracic spine. There is posterior instrumented fusion spans lower thoracic-sacral spine without appreciable hardware complication. CT scan of the T and L-spine per the radiologist shows no acute thoracic or lumbar spine fracture. On repeat examination patient continues to report intractable pain that she reports is no better after having IV Dilaudid. Ordered for dose of Percocet which she has prescribed at home. Patient states she is unable to go home. She states she is in too much severe pain. I asked the patient if she thinks that she may need a nursing facility to help with her activities of daily living until she is able to care for herself and she feels that as needed. We will admit for PT OT consult, case management consult. Medical Decision Making Considered penetrating head trauma, concussion, subdural hematoma, epidural hematoma, subarachnoid hemorrhage, cerebral contusion, intracerebral hemorrhage, diffuse axonal injury. No LOC or amnesia, normal neurologic exam. Patient denies falling due to dizziness, weakness, syncope. Patient reports falling due to losing her balance. She is awake and alert with normal mental status. Vital signs stable. CT of the brain is negative for acute intracranial abnormality per the radiologist. There is no signs of C-spine fracture or malalignment per the radiologist. Patient has no pain to her hips or pelvis on examination. She moves all 4 extremities throughout the difficulty. She is awake and alert with no mental status. GCS 15. CT scan of the chest/undersize pelvis shows no acute abnormality per the radiologist. CT of the T and L-spine with no signs of fracture or malalignment per the radiologist. Patient continues to report intractable pain. Patient has chronic pain and takes Percocet 6 times a day at home. Unable to control her pain here after multiple doses of Dilaudid. Patient does not feel that she is able to care for herself at home and manage going home. We will admit for PT OT consult, case management consult for shelter. Again patient reports this being a mechanical fall. Problems Addressed: Contusion of rib on right side, initial encounter: acute illness or injury Fall: acute illness or injury Amount and/or Complexity of Data Reviewed Independent Historian: EMS External Data Reviewed: notes. Labs: ordered. Decision-making details documented in ED Course. Radiology: ordered. Decision-making details documented in ED Course. ECG/medicine tests: ordered. Decision-making details documented in ED Course. Discussion of management or test interpretation with external provider(s): Consult: spoke with Dr. Engle who agrees to admit. Risk Decision regarding hospitalization. #415 - Emergency Medicine:Utilization of CT for Minor Blunt Head Trauma (Adult) Patient is 18 or older, presenting with minor blunt head trauma. Head CT (including cosigned orders) was ordered by an emergency patient care coordinator for trauma because (select one or more):[SATISFIES MIPS PERFORMANCE] Reasons: [x] Patient is 65 or older . Jv Baker PA-C ED Physician Preventive Medicine Officer [facility] Emergency Department (Please note that portions of this note have been completed with a voice recognition software. Efforts were made to correct any errors, but occasionally words are mis-transcribed.) Jv Baker PA-C 10/26/23 0409 [facility] 10-25-2023 Emergency department Triage note EMS ([place] [address]) reports being called for a fall. Pt states falling in bath tub hitting her head on an unknown surface and her ribs on the toilet. Right side ribs painful touch. Pt Denies LOC, denies thinners. Pt denies neck pain. Pt arrives in C-Collar, and on backboard. Hx of back and neck surgery's. No IV est, All vitals WNL See EMS report Pt states losing her balance and fell onto the toilet. No Neck pain, states back and rib pain. Pt states hitting her ribs on the toilet right side ribs painful to touch. Also states leg spasms. [facility] 10-25-2023 Emergency department Note Bed: 22 Expected date: Expected time: Means of arrival: Comments: 504- Fall, back & rib pain [facility] 09-26-2023 History of Presen t illness Narrative Images from the original note were not included. Matthew Perez 1955 Post Op Follow Up Note Assessment/Plan: Problem List Items Addressed This Visit Other Status post lumbar spinal fusion T10-L2 08/18/23 - Primary Relevant Orders XR Thoracic Spine 3 Views (Standard) Return in about 2 weeks (around 10/10/2023). A kyphoplasty was offered for her T9 compression fracture. She would like to think about it. I recommended that she wears her brace except for bathing. Activity limitations were discussed. Clinical Findings: Subjective Matthew Perez presents to the clinic following surgery:Decompression Thoracic 12-Lumbar1, [id number] 1 Discectomy, Interbody fusion, fixation Thoracic 10-Lumbar5, CT BUCK, Local Bone, Posteriorlateral Fusion Thoracic 10-Lumbar2, cement augmentation Thoracic 10 (08/18/23). Assessment - 09/26/23 1047 Pain Assessment Pain Assessment 0-10 0-10 DVPRS 8/10 Pain Location Back Pain Orientation Posterior;Mid;Lower;Left;Right Pain Radiating Towards legs Pain Descriptors Aching;Discomfort;Pressure Pain Frequency Continuous Pain Onset On-going Aggravating Factors Bending;Standing;Walking;Other (Comment) sitting Result of Injury No Work-Related Injury No Pain Intervention(s) Rest;Other (Comment);Cold applied PT @ Home, Oxycodone, Flexeril Pain is controlled with current analgesics. Medications being used: oxycodone prn. She notes no wound redness, fever, drainage, swelling or unusual tenderness wound healing as expected. Patient denies lower extremity pain, weakness or numbness except: numbness in her thoracolumbar region bilaterally. Right greater than left. She notes numbness in her left hand and bilateral buttocks. She walks and transfers without difficulty and ambulates with: walker or cane. She has a current medication list which includes the following prescription(s): cyclobenzaprine, albuterol, amlodipine, apixaban, apixaban, aspirin, beclomethasone, clonazepam, diclofenac sodium, furosemide, gabapentin, glucosamine/chondr pabon a sod, lisinopril, magnesium gluconate, montelukast, NONFORMULARY, NONFORMULARY, ropinirole, sertraline, and terbinafine hcl. Objective BP 135/85 (BP Location: Left arm, Patient Position: Sitting, BP Cuff Size: X-large Adult) Pulse (!) 109 Ht 5' 3 Comment: patient reported Wt 80.3 kg (177 lb) Comment: patient reported LMP (LMP Unknown) BMI 31.35 kg/m General alert, appears stated age, cooperative, and no distress Spine Local Exam of spine shows no tenderness about the incision Wound Healing well Motor Exam Lower extremity motor is strong and symmetric in all groups Gait/Balance slow and cautious walking with cane Imaging: Thoracic x-ray 09/26/2023: Stable compression fracture. Report pending. Thoracolumbar x-ray 08/24/2023: Thoracolumbar postoperative x-rays are reviewed. Alignment is satisfactory and hardware is in good position. Minimal cement extravasation intravascularly is noted which is unlikely to be clinically significant. FINDINGS: Multilevel posterior fixation, T10 through S1. Hardware is well seated. Degenerative subluxation at a few levels. Multilevel spondylosis. IVC filter at level of L3-L4. IMPRESSION: Postoperative findings without immediate complication. Erika Carmona CNP documented in this encounter [facility] 08-31-2023 History of Presen t illness Narrative Images from the original note were not included. Matthew Perez 1955 Post Op Follow Up Note Assessment/Plan: Problem List Items Addressed This Visit Other Status post lumbar spinal fusion T10-L2 08/18/23 - Primary Relevant Orders XR Lumbar Spine 2-3 Views (Standard) Return in about 6 weeks (around 10/12/2023). Clinical Findings: Subjective Matthew Perez presents to the clinic following surgery:Decompression Thoracic 12-Lumbar1, [id number] 1 Discectomy, Interbody fusion, fixation Thoracic 10-Lumbar5, CT BUCK, Local Bone, Posteriorlateral Fusion Thoracic 10-Lumbar2, cement augmentation Thoracic 10 (08/18/23). Assessment - 08/31/23 1121 Pain Assessment Pain Assessment 0-10 0-10 DVPRS 03/09 Pain Location Back Pain Orientation Lower;Right;Left Pain Radiating Towards pain in legs numbness in upper part of legs fromwaist to side of legs is numb Pain Descriptors Aching;Burning;Numbness Pain Frequency Continuous Pain Onset On-going Date Pain First Started -- 2 weeks post-op Result of Injury No Work-Related Injury No Pain Intervention(s) -- 2 weeks post-op Pain is controlled with current analgesics. Medications being used: oxycodone prn. She notes no wound redness, fever, drainage, swelling or unusual tenderness wound healing as expected. Patient denies lower extremity pain, weakness or numbness. She reports numbness in her thoracolumbar region bilaterally. She walks and transfers without difficulty and ambulates with: walker. She has a current medication list which includes the following prescription(s): acetaminophen, albuterol, amlodipine, apixaban, apixaban, aspirin, beclomethasone, clonazepam, cyclobenzaprine, diclofenac sodium, furosemide, gabapentin, glucosamine/chondr pabon a sod, lisinopril, magnesium gluconate, montelukast, NONFORMULARY, NONFORMULARY, oxycodone, ropinirole, senna-docusate, sertraline, and terbinafine hcl. Objective BP 131/84 (BP Location: Right arm, Patient Position: Sitting, BP Cuff Size: X-large Adult) Pulse 97 Ht 5' 3 Wt 80.3 kg (177 lb) LMP (LMP Unknown) BMI 31.35 kg/m General alert, appears stated age, cooperative, and no distress Spine Local Exam of spine shows mild diffuse tenderness about the incision Wound no drainage, well approximated, minimal erythema at incision. Motor Exam Lower extremity motor is strong and symmetric in all groups Gait/Balance slow and cautious walking Imaging: Thoracolumbar x-ray 08/24/2023: Thoracolumbar postoperative x-rays are reviewed. Alignment is satisfactory and hardware is in good position. Minimal cement extravasation intravascularly is noted which is unlikely to be clinically significant. FINDINGS: Multilevel posterior fixation, T10 through S1. Hardware is well seated. Degenerative subluxation at a few levels. Multilevel spondylosis. IVC filter at level of L3-L4. IMPRESSION: Postoperative findings without immediate complication. Erika Carmona CNP documented in this encounter [facility] 08-23-2023 Note Formatting of this n ote is different from the original. Addendum created 08/23/23747 by Ray Chapman CRNA Intraprocedure Meds edited [facility] 08-23-2023 Miscellaneous Notes Addendum created 08/23/23747 by Ray Chapman CRNA Intraprocedure Meds edited documented in this encounter [facility] 08-18-2023 Anesthesiology Postoperative evaluation and management note Anesthesia Post Evaluation * * Refer to nursing documentation for PACU vitals * * Patient participation: patient participated Mental status: awake Pain management: adequate Anesthetic complications: no Nausea / vomiting: no Respiratory / airway status: airway patent, face mask and spontaneous ventilation Postoperative hydration: acceptable Comment: Patient has satisfactorily recovered from her anesthetic. [facility] Work Phone: 08-18-2023 Surgical operatio n note Anesthesia Post Evaluation * * Refer to nursing documentation for PACU vitals * * Patient participation: patient participated Mental status: awake Pain management: adequate Anesthetic complications: no Nausea / vomiting: no Respiratory / airway status: airway patent, face mask and spontaneous ventilation Postoperative hydration: acceptable Comment: Patient has satisfactorily recovered from her anesthetic. Associated Order(s): Peripheral IV Peripheral IV Related to anesthetic: yes Final size: 20 G Final orientation: right Final location: hand Site prep: alcohol Local anesthetic: none Technique: anatomical landmarks Number of attempts: 1 *See MAR for medication administration Associated Order(s): Arterial Line Arterial Line Patient location: OR Start time: 08/18/2023 10:15 AM End time: 08/18/2023 10:20 AM Staff Performed by: JULIO Preanesthetic Checklist Completed: patient identified, pre-op evaluation, risks and benefits discussed, informed consent obtained, monitors and equipment checked, IV checked and timeout performed Procedure Indications: hemodynamic monitoring and frequent blood draws Final orientation: left Final location: radial Monitoring: assistant unit forester, pulse oximetry, heart rate and BP Sedation: general anesthesia (see MAR) Prep: ChloraPrep Local infiltration: lidocaine 1% Technique: landmarks (Palpation) Final needle: 22 G Final catheter: 20 G x 1 3/4'' Number of attempts: 1 Assessment: draws and flushes without difficulty Post procedure: taped, sterile dressing applied and EBL <10 mL Patient tolerance: patient tolerated the procedure well with no immediate complications *See MAR for medication administration Associated Order(s): ETT Airway ETT Airway Mask ventilation: ventilated by mask Technique: direct laryngoscopy Type: cuffed oral Tube size: 7 mm Final laryngoscope: Mac 3 Location: oral Final grade: 1 Insertion attempts: 1 Placement verification: auscultation, symmetrical chest wall movement and end tidal CO2 Secured at: 20 cm (measured from the teeth) Secured by: tape Bite block: none Lip/tooth/tongue trauma: no *See MAR for medication administration ANESTHESIA PREPROCEDURE EVALUATION Anesthesia Plan ASA: 3 Type: general Airway: endotracheal tube Induction: intravenous Comment: 1. Normal cardiac chamber sizes. 2. There is mild left ventricular concentric hypertrophy. 3. Left ventricular systolic function is normal with an ejection fraction by Biplane Method of Discs of 67 %. 4. Left ventricular segmental wall motion is normal. 5. There is grade 1 diastolic dysfunction, consistent with impaired relaxation and low or normal left atrial pressures. 6. There is mild to moderate tricuspid valve regurgitation. 7. There is pulmonary hypertension, estimated right ventricle systolic pressure is 46 mmHg. 8. There is no pericardial effusion Anesthetic plan and risks as outlined in the consent discussed with: patient Plan discussed with: JULIO Physical Exam Airway Mallampati: II TM Distance: >3 FB Neck ROM: full Mouth opening: >3 FB Cardiovascular - normal Rhythm: regular Pulmonary - normal Breath sounds are clear to auscultation Neurological Mental Status: alert Dental Dental exam is normal and age appropriate Review of Systems / Medical History - Reviewed: ECG, patient summary, anesthesia history, nursing notes, medical history, H&P and labs / results - No history of anesthetic complications Pulmonary Positive: asthma sleep apnea Neurological / Psychological Positive: neuromuscular disease headaches, depression, anxiety Cardiovascular Positive: hypertension cardiomyopathy Gastrointestinal / Hepatic / Renal Positive: GERD and dysphagia Endocrine / Musculoskeletal Positive: obesity, anemia, chronic pain Other Positive: cancer documented in this encounter [facility] 08-18-2023 Evaluation note Diagnosis Status post lumbar spinal fusion T10-L2 08/18/23- Primary Arthrodesis status documented in this encounter [id number] Evaluation note* Diagnosis Status post lumbar spinal fusion T10-L2 08/18/23- Primary Arthrodesis status documented in this encounter [id number] Anesthesiology procedure note* Anesthesia Procedure Notes - Ray Chapman CRNA - 08/18/2023 11:16 AM EDTAssociated Order(s): Peripheral IV Peripheral IV Related to anesthetic: yes Final size: 20 G Final orientation: right Final location: hand Site prep: alcohol Local anesthetic: none Technique: anatomical landmarks Number of attempts: 1 *See MAR for medication administration [id number] Anesthesiology procedure note* Anesthesia Procedure Notes - Ray Chapman CRNA - 08/18/2023 11:15 AM EDTAssociated Order(s): Arterial Line Arterial Line Patient location: OR Start time: 08/18/2023 10:15 AM End time: 08/18/2023 10:20 AM Staff Performed by: JULIO Preanesthetic Checklist Completed: patient identified, pre-op evaluation, risks and benefits discussed, informed consent obtained, monitors and equipment checked, IV checked and timeout performed Procedure Indications: hemodynamic monitoring and frequent blood draws Final orientation: left Final location: radial Monitoring: assistant unit forester, pulse oximetry, heart rate and BP Sedation: general anesthesia (see MAR) Prep: ChloraPrep Local infiltration: lidocaine 1% Technique: landmarks (Palpation) Final needle: 22 G Final catheter: 20 G x 1 3/4'' Number of attempts: 1 Assessment: draws and flushes without difficulty Post procedure: taped, sterile dressing applied and EBL <10 mL Patient tolerance: patient tolerated the procedure well with no immediate complications *See MAR for medication administration [id number] Anesthesiology procedure note* Anesthesia Procedure Notes - Ray Chapman CRNA - 08/18/2023 10:42 AM EDTAssociated Order(s): ETT Airway ETT Airway Mask ventilation: ventilated by mask Technique: direct laryngoscopy Type: cuffed oral Tube size: 7 mm Final laryngoscope: Mac 3 Location: oral Final grade: 1 Insertion attempts: 1 Placement verification: auscultation, symmetrical chest wall movement and end tidal CO2 Secured at: 20 cm (measured from the teeth) Secured by: tape Bite block: none Lip/tooth/tongue trauma: no *See MAR for medication administration [id number] Anesthesiology Preoperative evaluation and management note * Anesthesia Preprocedure Evaluation - Rudolph Hernandez MD - 08/18/2023 8:22 AM EDT ANESTHESIA PREPROCEDURE EVALUATION Anesthesia Plan ASA: 3 Type: general Airway: endotracheal tube Induction: intravenous Comment: 1. Normal cardiac chamber sizes. 2. There is mild left ventricular concentric hypertrophy. 3. Left ventricular systolic function is normal with an ejection fraction by Biplane Method of Discs of 67 %. 4. Left ventricular segmental wall motion is normal. 5. There is grade 1 diastolic dysfunction, consistent with impaired relaxation and low or normal left atrial pressures. 6. There is mild to moderate tricuspid valve regurgitation. 7. There is pulmonary hypertension, estimated right ventricle systolic pressure is 46 mmHg. 8. There is no pericardial effusion Anesthetic plan and risks as outlined in the consent discussed with: patient Plan discussed with: INSPECTING AND TESTING LEAD HAND Physical Exam Airway Mallampati: II TM Distance: >3 FB Neck ROM: full Mouth opening: >3 FB Cardiovascular - normal Rhythm: regular Pulmonary - normal Breath sounds are clear to auscultation Neurological Mental Status: alert Dental Dental exam is normal and age appropriate Review of Systems / Medical History - Reviewed: ECG, patient summary, anesthesia history, nursing notes, medical history, H&P and labs / results - No history of anesthetic complications Pulmonary Positive: asthma sleep apnea Neurological / Psychological Positive: neuromuscular disease headaches, depression, anxiety Cardiovascular Positive: hypertension cardiomyopathy Gastrointestinal / Hepatic / Renal Positive: GERD and dysphagia Endocrine / Musculoskeletal Positive: obesity, anemia, chronic pain Other Positive: cancer [facility] Work Phone: 1(551) 562-432610-05-2023 History and physical note* leonorKatia crowder Minerva Licona, UYLIA - 08/04/2023 2:24 PM EDT [facility] [facility] [address] [place] [address] Patient Name: Matthew Perez : 1955 PCP: Harmony Gee MD History of Present Illness Matthew Perez is a 68 y.o. female who presents today for preadmission testing and preoperative medical risk stratification in preparation for T12-L1 decompression and extension of fusion T10-L5 scheduled for 08/18/[address] Fraga. Patient's history is significant for multiple back surgeries and most recently ACDF 03/20. She reports in May of this year she had acute onset of left buttock pain with radiation to her left thigh associated with progressive weakness of her left lower extremity and required hospitalization for int ractable pain. MRI at that time revealed T12-L1 thoracic disc herniation at L1- L2 moderate canal stenosis. She was seen and evaluated by Dr. Fraga with plans for surgical intervention, however preoperative bilateral lower extremity ultrasound revealed superficial left greater saphenous vein thrombophlebitis and recommendations were for anticoagulation for 45 days prior to her surgery. She reports ongoing left buttock/hip pain with radiation to her left thigh and also reports she has been having fairly significant right hip and bilateral shoulder plain left greater than right. She is agreeable to proceed with surgical recommendations with Dr. Fraga. Her past medical and surgical histories were reviewed in addition to her medications and her PCP isnoted above. She does have a history of cardiomyopathy with recovered EF and diastolic dysfunction and denies any chest pain or pressure, but does report a chronic and stable shortness of breath withmost activities as well as some fairly recent bilateral ankle edema. She denies previous history ofCVA/TIA or any symptoms concerning for this. She denies any recent illnesses or symptoms concerningfor UTI. She does report quite a bit of left hip/buttock pain and does typically sleep in a recliner. She reports more recently she has had greater discomfort with her right hip and both of her shoulders. She also reports bilateral lower extremity calf pain left greater than right that waxes and wanes. She does also report intermittent hot flashes with history of CARLOS MANUEL/BSO with history of previous thyroid issues. She tells me that she is active, but limited by ongoing pains noted above. She lives with her and reports that her son has recently moved home and does help with chores around the house. She is able to participate with dishes and does ascend and descend a flight of stairs in her home to do laundry reporting that these activities do cause her quite a bit of discomfort. Patient reports no previous complications with anesthesia Past Medical History: Diagnosis Date Anxiety Arthritis osteo Asthma 08/23/2014 Back pain Cardiomyopathy (HCC) resolved (EF 45% per cath 09/21/2006; EF 55-60% per echo 04/16/2019). Depression Diastolic dysfunction mild per echo on 06/08/2019 Edema Fibromyalgia, primary GERD (gastroesophageal reflux disease) patient denies History of echocardiogram Hypertension 04/01/2015 Migraines Obesity AYO (obstructive sleep apnea) cannot tolerate C-Pap Pneumonia x2 , had 2 pneumonia shots Restless legs syndrome Saphenous vein clot superficial LLE Shoulder joint pain Spinal stenosis Varicose veins of both lower extremities Past Surgical History: Procedure Laterality Date ANTERIOR CERVICAL DISCECTOMY 02/25/2009 C5-6, C6-7 AR'BRITTON SHOULD SAD, SLAP, RCR, RESECT DISTAL CLAVICLE, BICEPS TENODESIS Right 11/04/2015 ARTHROPLASTY HIP TOTAL Right 02/27/2018 Procedure: RIGHT TOTAL HIP ARTHROPLASTY; Surgeon: Gabo Sears MD; Location: [facility] Main OR; Service: Orthopedic BLADDER SUSPENSION BRONCHOSCOPY CARDIAC CATHETERIZATION Bilateral 09/21/2006 COLONOSCOPY FOOT SURGERY Right 03/08/2005 Third interdigital neuroma excision, fourth metatarsal osteotomy w/capsulotomy, fifth metatarsal head excision HARDWARE REMOVAL ANTERIOR CERVICAL 07/22/2014 C5, C6-7 HARDWARE REMOVAL LUMBAR 01/02/2009 L5-S1 w/ redo decompression laminectomy HYSTERECTOMY CARLOS MANUEL BSO Bladder suspension KNEE ARTHROSCOPY W/ LASER Left 2013 LAMINECTOMY DECOMP LUMBAR W/FUSION 4 OR MORE LVL N/A 11/08/2017 Procedure: HARDWARE REMOVAL L4-S1, DECOMPRESSION/FUSION L2-L4, PLIF, REINSTRUMENT L2-S1; Surgeon: Alejo Hummel MD; Location: [facility] Main OR; Service: Orthopedic LAMINECTOMY DISC ANTERIOR CERVICAL W/ FUSION SINGLE LEVEL N/A 03/13/2021 Procedure: Anterior cervical discectomy fusion cervical4-5 with plate and allograft; Surgeon: Jose Fraga MD; Location: [facility] Main OR; Service: Orthopedic LUMBAR LAMINECTOMY 10/11/2003 L5-S1 decompression w/interbody fusion bilateral and posterior fusion fixation LUNG BIOPSY Right ROTATOR CUFF REPAIR Left TONSILLECTOMY TOTAL KNEE ARTHROPLASTY Right WISDOM TOOTH EXTRACTION Family History Problem Relation Age of Onset Hypertension Father Heart disease Father Diabetes Father Breast cancer Mother ; cancer went to brain, liver and lungs Brain cancer Mother Liver cancer Mother Lung cancer Mother Hypertension Sister Diabetes Sister Hypertension Other siblings Diabetes Other siblings No Known Problems Brother Surgical complications Neg Hx Anesthesia problems Neg Hx Clotting disorder Neg Hx Deep vein thrombosis Neg Hx Pulmonary embolism Neg Hx Social History Socioeconomic History Marital status: Spouse name: Derrek Tobacco Use Smoking status: Never Smokeless tobacco: Never Tobacco comments: 04/21/21 Vaping Use Vaping Use: Never used Substance and Sexual Activity Alcohol use: Yes Alcohol/week: 0.0 standard drinks of alcohol Comment: sometimes 10 a year; rare Drug use: No Comment: tried all forms of medical marijuana without positive results in last 6 weeks Sexual activity: Yes Partners: Male control/protection: None Social History Narrative Merged History Encounter Social Determinants of Health Financial Resource Strain: Low Risk (05/18/2021) Overall Financial Resource Strain (CARDIA) Difficulty of Paying Living Expenses: Not hard at all Food Insecurity: No Food Insecurity (05/18/2021) Hunger Vital Sign Worried About Running Out of Food in the Last Year: Never true Ran Out of Food in the Last Year: Never true Transportation Needs: No Transportation Needs (05/18/2021) PRAPARE - Transportation Lack of Transportation (Medical): No Lack of Transportation (Non-Medical): No Allergies Allergen Reactions Duloxetine GI Intolerance Nausea Nsaids (Non-Steroidal Anti-Inflammatory Drug) GI Intolerance Ibuprofen GI Intolerance Lyrica [Pregabalin] Other (See Comments) nightmares Metformin GI Intolerance Active Home Medications Medication Sig Take Last Dose On Take Morning of Surgery Comment(s) albuterol (PROVENTIL) 2.5 mg /3 mL (0.083 %) nebulizer solution Take 3 mL (2.5 mg total) by nebulization daily as needed Reasons: COPD. albuterol (Ventolin HFA) 90 mcg/actuation inhaler Inhale 1 (one) puff every 6 (six) hours as neededfor wheezing . amLODIPine (NORVASC) 5 MG tablet Take 1 (one) tablet (5 mg total) by mouth every evening . aspirin 81 MG EC tablet Take 1 (one) tablet (81 mg total) by mouth daily . beclomethasone (QVAR) 40 mcg/actuation inhaler Inhale 2 (two) puffs 2 (two) times a day Rinse mouth. clonazePAM (KLONOPIN) 1 MG tablet Take 1 (one) tablet (1 mg total) by mouth 2 (two) times a day as needed . DICLOFENAC SODIUM TOP Apply 10 g topically 4 (four) times a day as needed . furosemide (LASIX) 40 MG tablet Take 1 (one) tablet (40 mg total) by mouth 2 (two) times a day . glucosamine/chondr pabon A sod (OSTEO BI-FLEX ORAL) Take 1 tablet by mouth every morning . lisinopril (PRINIVIL,ZESTRIL) 20 MG tablet Take 1 (one) tablet (20 mg total) by mouth every morningReasons: high blood pressure. magnesium gluconate (MAGONATE) 27.5 mg magne- sium (500 mg) tablet Take 1 (one) tablet (500 mg total) by mouth daily . meloxicam (MOBIC) 7.5 MG tablet Take 1 (one) tablet (7.5 mg total) by mouth nightly as needed . montelukast (SINGULAIR) 10 mg tablet Take 1 (one) tablet (10 mg total) by mouth daily . NARCAN 4 mg/actuation [address] Administer 1 spray into one nostril for known or suspected opioid overdose. If patient worsens or does not respond, may repeat in 2-3 minutes. . NONFORMULARY Take 1 tablet by mouth every evening Equate sleep aide 25mg . NONFORMULARY Take 1 tablet by mouth daily as needed Equate stay awake 200mg . oxyCODONE-acetaminophen (PERCOCET) 10-325 mg per tablet Take 2 (two) tablets by mouth 3 (three) times a day as needed . rOPINIRole (REQUIP) 2 MG tablet Take 1 (one) tablet (2 mg total) by mouth 3 (three) times a day as needed Reasons: restless legs syndrome, an extreme discomfort in the calf muscles when sitting or lying down. sertraline (ZOLOFT) 50 MG tablet Take 1 (one) tablet (50 mg total) by mouth nightly . terbinafine HCL (LAMISIL) 250 mg tablet Take 1 (one) tablet (250 mg total) by mouth every morning . Review of Systems Pertinent positives and negatives as noted in HPI. All other pertinent systems reviewed and were negative Physical Exam Vitals: 08/04/23 1321 08/04/23 1322 08/04/23 1339 BP: 111/63 Pulse: 88 Temp: 97.5 F (36.4 C) TempSrc: Oral SpO2: 94% Weight: 80.3 kg (177 lb 0.5 oz) 80.3 kg (177 lb 0.5 oz) Height: 5' 3 5' 3 Body mass index is 31.36 kg/m . Physical Exam Constitutional: General: She is not in acute distress. HENT: Head: Normocephalic and atraumatic. Mouth/Throat: Mouth: Mucous membranes are moist. Eyes: Pupils: Pupils are equal, round, and reactive to light. Neck: Vascular: No carotid bruit. Cardiovascular: Rate and Rhythm: Normal rate and regular rhythm. Heart sounds: Normal heart sounds. Pulmonary: Effort: Pulmonary effort is normal. Breath sounds: Normal breath sounds. Abdominal: General: Bowel sounds are normal. Palpations: Abdomen is soft. Tenderness: There is no abdominal tenderness. Genitourinary: Comments: Deferred Musculoskeletal: General: Deformity (Right ring finger laterally displaced toward adjacent fingers) present. Cervical back: Neck supple. Right lower leg: Edema (1+ ankle) present. Left lower leg: Edema (1+ ankle) present. Skin: General: Skin is warm and dry. Comments: Bilateral lower extremities with quite a bit of varicosities Bandage to right thumb noted Neurological: General: No focal deficit present. Mental Status: She is alert and oriented to person, place, and time. Psychiatric: Mood and Affect: Mood normal. Behavior: Behavior normal. Pre-Admission Testing and Screening EKG 05/06/2023 reviewed CXR pending LABS pending today Obstructive Sleep Apnea- by history and intolerant of CPAP VTE Prophylaxis -Elevated risk with history detailed below -Deferred to surgeon -Recommend utilizing current ACCP guidelines Assessment and Plan Matthew Perez is a 68 y.o. female who presents today for preadmission testing and preoperative medical risk stratification in preparation for T12-L1 decompression and extension of fusion T10-L5 scheduled for 08/18/[address] Fraga. Preoperative examination- Patient appears stable today from a cardiac standpoint and is scheduled for preoperative cardiac evaluation with Dr. Allen 07/06/2023. This patient has an activity level meeting 4 METS per Dooley Activity Status Index (DASI) and appears medically optimized to proceed as scheduled pending preoperative cardiac evaluation and review of lab results, imaging and/or cultures. Obstructive sleep apnea-by history and intolerant of CPAP. Likely contributing to chronic shortnessof breath. Recommend continuous O2 sat monitoring during pre-, intra and postoperative periods Thrombophlebitis-superficial left GSV thrombosis demonstrated on duplex while hospitalized in May. Recommendation were for 45 days of anticoagulation prior to back surgery. Patient is currently onlow-dose aspirin only and reports this was the only medication that she was placed on and denies any other blood thinning medications. She is to stop aspirin 7 days prior to surgery as directed by Dr. Fraga. This history does elevate her risk for postoperative VTE. Varicose veins-bilateral lower extremities and multiple varicosities noted on exam today. This in addition to above does elevate her risk for postoperative VTE. Bilateral lower extremity edema-relatively new onset per patient report and typically ankles only. Likely multifactorial with mild diastolic dysfunction noted on recent TTE 07/25/2023, amlodipine varicose veins. Does not appear to represent decompensation. On furosemide which she will hold morning of surgery History of cardiomyopathy-presumably nonischemic with recovered EF 67% per TTE 07/25/2023. Diastolic dysfunction-mild per TTE 07/25/2023. Likely contributing to BLE edema noted above Hypertension-controlled on amlodipine, furosemide and lisinopril. She will only take amlodipine morning of surgery Asthma/COPD-by history with chronic and stable shortness of breath with activities. On albuterol asneeded which she can use morning of surgery if needed. She will also take her Singulair morning of surgery Left lower lobe lung lesion-associated with hilar lymphadenopathy and positive PET s/p left VATS with left lower lobe wedge resection 2011. Pathology revealing necrotizing granulomatous histoplasmosis Pulmonary hypertension-RSVP 46 mmHg per recent TTE and likely also contributing to shortness of breath. Right finger extensor tendon dislocation-following with hand specialist at [facility]. Fungal infection, right thumb-on terbinafine for 30 days. CMP pending Hot flashes-recent occurrence with history of CARLOS MANUEL/BSO. 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 Medication Instructions Patient has been instructed to stop all NSAIDS, vitamins, minerals and herbal supplements 7 days prior to surgery. Additional specific medication instructions provided to patient both verbally and in written formatwithin After Visit Summary with questions addressed. Katia Etienne CNP Voice dictation software was utilized to create this note and despite review some errors may still be present [id number] History and physical note* Katia Etienne CNP - 08/04/2023 2:24 PM EDT [facility] Pre[facility]Ad[facility] Testing [address] [place] [id number] Patient Name: Matthew Perez : 1955 PCP: Harmony Gee MD History of Present Illness Matthew Perez is a 68 y.o. female who presents today for preadmission testing and preoperative medical risk stratification in preparation for T12-L1 decompression and extension of fusion T10-L5 scheduled for 08/18/[address] Fraga. Patient's history is significant for multiple back surgeries and most recently ACDF 03/20. She reports in May of this year she had acute onset of left buttock pain with radiation to her left thigh associated with progressive weakness of her left lower extremity and required hospitalization for int ractable pain. MRI at that time revealed T12-L1 thoracic disc herniation at L1- L2 moderate canal stenosis. She was seen and evaluated by Dr. Fraga with plans for surgical intervention, however preoperative bilateral lower extremity ultrasound revealed superficial left greater saphenous vein thrombophlebitis and recommendations were for anticoagulation for 45 days prior to her surgery. She reports ongoing left buttock/hip pain with radiation to her left thigh and also reports she has been having fairly significant right hip and bilateral shoulder plain left greater than right. She is agreeable to proceed with surgical recommendations with Dr. Fraga. Her past medical and surgical histories were reviewed in addition to her medications and her PCP isnoted above. She does have a history of cardiomyopathy with recovered EF and diastolic dysfunction and denies any chest pain or pressure, but does report a chronic and stable shortness of breath withmost activities as well as some fairly recent bilateral ankle edema. She denies previous history ofCVA/TIA or any symptoms concerning for this. She denies any recent illnesses or symptoms concerningfor UTI. She does report quite a bit of left hip/buttock pain and does typically sleep in a recliner. She reports more recently she has had greater discomfort with her right hip and both of her shoulders. She also reports bilateral lower extremity calf pain left greater than right that waxes and wanes. She does also report intermittent hot flashes with history of CARLOS MANUEL/BSO with history of previous thyroid issues. She tells me that she is active, but limited by ongoing pains noted above. She lives with her and reports that her son has recently moved home and does help with chores around the house. She is able to participate with dishes and does ascend and descend a flight of stairs in her home to do laundry reporting that these activities do cause her quite a bit of discomfort. Patient reports no previous complications with anesthesia Past Medical History: Diagnosis Date Anxiety Arthritis osteo Asthma 08/23/2014 Back pain Cardiomyopathy (HCC) resolved (EF 45% per cath 09/21/2006; EF 55-60% per echo 04/16/2019). Depression Diastolic dysfunction mild per echo on 06/08/2019 Edema Fibromyalgia, primary GERD (gastroesophageal reflux disease) patient denies History of echocardiogram Hypertension 04/01/2015 Migraines Obesity AYO (obstructive sleep apnea) cannot tolerate C-Pap Pneumonia x2 , had 2 pneumonia shots Restless legs syndrome Saphenous vein clot superficial LLE Shoulder joint pain Spinal stenosis Varicose veins of both lower extremities Past Surgical History: Procedure Laterality Date ANTERIOR CERVICAL DISCECTOMY 02/25/2009 C5-6, C6-7 AR'BRITTON SHOULD SAD, SLAP, RCR, RESECT DISTAL CLAVICLE, BICEPS TENODESIS Right 11/04/2015 ARTHROPLASTY HIP TOTAL Right 02/27/2018 Procedure: RIGHT TOTAL HIP ARTHROPLASTY; Surgeon: Gabo Sears MD; Location: [facility] Main OR; Service: Orthopedic BLADDER SUSPENSION BRONCHOSCOPY CARDIAC CATHETERIZATION Bilateral 09/21/2006 COLONOSCOPY FOOT SURGERY Right 03/08/2005 Third interdigital neuroma excision, fourth metatarsal osteotomy w/capsulotomy, fifth metatarsal head excision HARDWARE REMOVAL ANTERIOR CERVICAL 07/22/2014 C5, C6-7 HARDWARE REMOVAL LUMBAR 01/02/2009 L5-S1 w/ redo decompression laminectomy HYSTERECTOMY CARLOS MANUEL BSO Bladder suspension KNEE ARTHROSCOPY W/ LASER Left 2014 LAMINECTOMY DECOMP LUMBAR W/FUSION 4 OR MORE LVL N/A 11/08/2017 Procedure: HARDWARE REMOVAL L4-S1, DECOMPRESSION/FUSION L2-L4, PLIF, REINSTRUMENT L2-S1; Surgeon: Alejo Hummel MD; Location: [facility] Main OR; Service: Orthopedic LAMINECTOMY DISC ANTERIOR CERVICAL W/ FUSION SINGLE LEVEL N/A 03/13/2021 Procedure: Anterior cervical discectomy fusion cervical4-5 with plate and allograft; Surgeon: Jose Fraga MD; Location: [facility] Main OR; Service: Orthopedic LUMBAR LAMINECTOMY 10/11/2003 L5-S1 decompression w/interbody fusion bilateral and posterior fusion fixation LUNG BIOPSY Right ROTATOR CUFF REPAIR Left TONSILLECTOMY TOTAL KNEE ARTHROPLASTY Right WISDOM TOOTH EXTRACTION Family History Problem Relation Age of Onset Hypertension Father Heart disease Father Diabetes Father Breast cancer Mother ; cancer went to brain, liver and lungs Brain cancer Mother Liver cancer Mother Lung cancer Mother Hypertension Sister Diabetes Sister Hypertension Other siblings Diabetes Other siblings No Known Problems Brother Surgical complications Neg Hx Anesthesia problems Neg Hx Clotting disorder Neg Hx Deep vein thrombosis Neg Hx Pulmonary embolism Neg Hx Social History Socioeconomic History Marital status: Spouse name: Derrek Tobacco Use Smoking status: Never Smokeless tobacco: Never Tobacco comments: 04/21/21 Vaping Use Vaping Use: Never used Substance and Sexual Activity Alcohol use: Yes Alcohol/week: 0.0 standard drinks of alcohol Comment: sometimes 10 a year; rare Drug use: No Comment: tried all forms of medical marijuana without positive results in last 6 weeks Sexual activity: Yes Partners: Male control/protection: None Social History Narrative Merged History Encounter Social Determinants of Health Financial Resource Strain: Low Risk (05/18/2021) Overall Financial Resource Strain (CARDIA) Difficulty of Paying Living Expenses: Not hard at all Food Insecurity: No Food Insecurity (05/18/2021) Hunger Vital Sign Worried About Running Out of Food in the Last Year: Never true Ran Out of Food in the Last Year: Never true Transportation Needs: No Transportation Needs (05/18/2021) PRAPARE - Transportation Lack of Transportation (Medical): No Lack of Transportation (Non-Medical): No Allergies Allergen Reactions Duloxetine GI Intolerance Nausea Nsaids (Non-Steroidal Anti-Inflammatory Drug) GI Intolerance Ibuprofen GI Intolerance Lyrica [Pregabalin] Other (See Comments) nightmares Metformin GI Intolerance Active Home Medications Medication Sig Take Last Dose On Take Morning of Surgery Comment(s) albuterol (PROVENTIL) 2.5 mg /3 mL (0.083 %) nebulizer solution Take 3 mL (2.5 mg total) by nebulization daily as needed Reasons: COPD. albuterol (Ventolin HFA) 90 mcg/actuation inhaler Inhale 1 (one) puff every 6 (six) hours as neededfor wheezing . amLODIPine (NORVASC) 5 MG tablet Take 1 (one) tablet (5 mg total) by mouth every evening . aspirin 81 MG EC tablet Take 1 (one) tablet (81 mg total) by mouth daily . beclomethasone (QVAR) 40 mcg/actuation inhaler Inhale 2 (two) puffs 2 (two) times a day Rinse mouth. clonazePAM (KLONOPIN) 1 MG tablet Take 1 (one) tablet (1 mg total) by mouth 2 (two) times a day as needed . DICLOFENAC SODIUM TOP Apply 10 g topically 4 (four) times a day as needed . furosemide (LASIX) 40 MG tablet Take 1 (one) tablet (40 mg total) by mouth 2 (two) times a day . glucosamine/chondr pabon A sod (OSTEO BI-FLEX ORAL) Take 1 tablet by mouth every morning . lisinopril (PRINIVIL,ZESTRIL) 20 MG tablet Take 1 (one) tablet (20 mg total) by mouth every morningReasons: high blood pressure. magnesium gluconate (MAGONATE) 27.5 mg magne- sium (500 mg) tablet Take 1 (one) tablet (500 mg total) by mouth daily . meloxicam (MOBIC) 7.5 MG tablet Take 1 (one) tablet (7.5 mg total) by mouth nightly as needed . montelukast (SINGULAIR) 10 mg tablet Take 1 (one) tablet (10 mg total) by mouth daily . NARCAN 4 mg/actuation [address] Administer 1 spray into one nostril for known or suspected opioid overdose. If patient worsens or does not respond, may repeat in 2-3 minutes. . NONFORMULARY Take 1 tablet by mouth every evening Equate sleep aide 25mg . NONFORMULARY Take 1 tablet by mouth daily as needed Equate stay awake 200mg . oxyCODONE-acetaminophen (PERCOCET) 10-325 mg per tablet Take 2 (two) tablets by mouth 3 (three) times a day as needed . rOPINIRole (REQUIP) 2 MG tablet Take 1 (one) tablet (2 mg total) by mouth 3 (three) times a day as needed Reasons: restless legs syndrome, an extreme discomfort in the calf muscles when sitting or lying down. sertraline (ZOLOFT) 50 MG tablet Take 1 (one) tablet (50 mg total) by mouth nightly . terbinafine HCL (LAMISIL) 250 mg tablet Take 1 (one) tablet (250 mg total) by mouth every morning . Review of Systems Pertinent positives and negatives as noted in HPI. All other pertinent systems reviewed and were negative Physical Exam Vitals: 08/04/23 1321 08/04/23 1322 08/04/23 1339 BP: 111/63 Pulse: 88 Temp: 97.5 F (36.4 C) TempSrc: Oral SpO2: 94% Weight: 80.3 kg (177 lb 0.5 oz) 80.3 kg (177 lb 0.5 oz) Height: 5' 3 5' 3 Body mass index is 31.36 kg/m . Physical Exam Constitutional: General: She is not in acute distress. HENT: Head: Normocephalic and atraumatic. Mouth/Throat: Mouth: Mucous membranes are moist. Eyes: Pupils: Pupils are equal, round, and reactive to light. Neck: Vascular: No carotid bruit. Cardiovascular: Rate and Rhythm: Normal rate and regular rhythm. Heart sounds: Normal heart sounds. Pulmonary: Effort: Pulmonary effort is normal. Breath sounds: Normal breath sounds. Abdominal: General: Bowel sounds are normal. Palpations: Abdomen is soft. Tenderness: There is no abdominal tenderness. Genitourinary: Comments: Deferred Musculoskeletal: General: Deformity (Right ring finger laterally displaced toward adjacent fingers) present. Cervical back: Neck supple. Right lower leg: Edema (1+ ankle) present. Left lower leg: Edema (1+ ankle) present. Skin: General: Skin is warm and dry. Comments: Bilateral lower extremities with quite a bit of varicosities Bandage to right thumb noted Neurological: General: No focal deficit present. Mental Status: She is alert and oriented to person, place, and time. Psychiatric: Mood and Affect: Mood normal. Behavior: Behavior normal. Pre-Admission Testing and Screening EKG 05/06/2023 reviewed CXR pending LABS pending today Obstructive Sleep Apnea- by history and intolerant of CPAP VTE Prophylaxis -Elevated risk with history detailed below -Deferred to surgeon -Recommend utilizing current ACCP guidelines Assessment and Plan Matthew Perez is a 68 y.o. female who presents today for preadmission testing and preoperative medical risk stratification in preparation for T12-L1 decompression and extension of fusion T10-L5 scheduled for 08/18/[address] Fraga. Preoperative examination- Patient appears stable today from a cardiac standpoint and is scheduled for preoperative cardiac evaluation with Dr. Allen 07/06/2023. This patient has an activity level meeting 4 METS per Dooley Activity Status Index (DASI) and appears medically optimized to proceed as scheduled pending preoperative cardiac evaluation and review of lab results, imaging and/or cultures. Obstructive sleep apnea-by history and intolerant of CPAP. Likely contributing to chronic shortnessof breath. Recommend continuous O2 sat monitoring during pre-, intra and postoperative periods Thrombophlebitis-superficial left GSV thrombosis demonstrated on duplex while hospitalized in May. Recommendation were for 45 days of anticoagulation prior to back surgery. Patient is currently onlow-dose aspirin only and reports this was the only medication that she was placed on and denies any other blood thinning medications. She is to stop aspirin 7 days prior to surgery as directed by Dr. Fraga. This history does elevate her risk for postoperative VTE. Varicose veins-bilateral lower extremities and multiple varicosities noted on exam today. This in addition to above does elevate her risk for postoperative VTE. Bilateral lower extremity edema-relatively new onset per patient report and typically ankles only. Likely multifactorial with mild diastolic dysfunction noted on recent TTE 07/25/2023, amlodipine varicose veins. Does not appear to represent decompensation. On furosemide which she will hold morning of surgery History of cardiomyopathy-presumably nonischemic with recovered EF 67% per TTE 07/25/2023. Diastolic dysfunction-mild per TTE 07/25/2023. Likely contributing to BLE edema noted above Hypertension-controlled on amlodipine, furosemide and lisinopril. She will only take amlodipine morning of surgery Asthma/COPD-by history with chronic and stable shortness of breath with activities. On albuterol asneeded which she can use morning of surgery if needed. She will also take her Singulair morning of surgery Left lower lobe lung lesion-associated with hilar lymphadenopathy and positive PET s/p left VATS with left lower lobe wedge resection 2011. Pathology revealing necrotizing granulomatous histoplasmosis Pulmonary hypertension-RSVP 46 mmHg per recent TTE and likely also contributing to shortness of breath. Right finger extensor tendon dislocation-following with hand specialist at [facility]. Fungal infection, right thumb-on terbinafine for 30 days. CMP pending Hot flashes-recent occurrence with history of CARLOS MANUEL/BSO. 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 Medication Instructions Patient has been instructed to stop all NSAIDS, vitamins, minerals and herbal supplements 7 days prior to surgery. Additional specific medication instructions provided to patient both verbally and in written formatwithin After Visit Summary with questions addressed. Katia Etienne CNP Voice dictation software was utilized to create this note and despite review some errors may still be present documented in this [id number] Instructions* Patient Instructions* Katia Etienne CNP - 08/04/2023 1:52 PM EDT Preparing for your surgery Preoperative Medication Instructions One week before your surgery Stop taking vitamins, minerals and herbal supplements Stop taking over the counter anti-inflammatory medications including Advil/Motrin (ibuprofen) and Aleve/Naprosyn (naproxen) You may continue to take Tylenol (acetaminophen) up to 3000 mg daily Stop taking prescription anti-inflammatory medications including Celebrex (celecoxib), Voltaren (diclofenac) and Mobic (meloxicam). You may continue to use over the counter and prescription topical anti- inflammatory gels/creams as directed until the evening prior to surgery once your pre-op surgical bath begins. Stop taking over the counter aspirin containing products including Excedrin and Chhaya-Humarock If you take aspirin prescribed by a physician please check with them before stopping. If you take any prescription anti-platelet or blood thinning medications including aspirin, Plavix (clopidogrel), Brilinta (ticagrelor), Pletal (cilostazol), Pradaxa (dabigatran), Coumadin (warfarin), Xarelto (rivaroxaban) and Eliquis (apixaban) please check with the prescribing physician for inform ation on when to stop these medications. Active Home Medications Medication Sig Take Last Dose On Take Morning of Surgery Comment(s) albuterol (PROVENTIL) 2.5 mg /3 mL (0.083 %) nebulizer solution Take 3 mL (2.5 mg total) by nebulization daily as needed Reasons: COPD. Yes, if needed albuterol (Ventolin HFA) 90 mcg/actuation inhaler Inhale 1 (one) puff every 6 (six) hours as neededfor wheezing . Yes, if needed Do not use with nebulizer amLODIPine (NORVASC) 5 MG tablet Take 1 (one) tablet (5 mg total) by mouth every evening . Evening before surgery aspirin 81 MG EC tablet Take 1 (one) tablet (81 mg total) by mouth daily . Stop 7 days before surgery beclomethasone (QVAR) 40 mcg/actuation inhaler Inhale 2 (two) puffs 2 (two) times a day Rinse mouth. Yes clonazePAM (KLONOPIN) 1 MG tablet Take 1 (one) tablet (1 mg total) by mouth 2 (two) times a day as needed . Yes, if needed DICLOFENAC SODIUM TOP Apply 10 g topically 4 (four) times a day as needed . Stop 1 day before surgery furosemide (LASIX) 40 MG tablet Take 1 (one) tablet (40 mg total) by mouth 2 (two) times a day . Day before surgery No glucosamine/chondr pabon A sod (OSTEO BI-FLEX ORAL) Take 1 tablet by mouth every morning . Stop 7 daysbefore surgery lisinopril (PRINIVIL,ZESTRIL) 20 MG tablet Take 1 (one) tablet (20 mg total) by mouth every morningReasons: high blood pressure. Day before surgery No magnesium gluconate (MAGONATE) 27.5 mg magne- sium (500 mg) tablet Take 1 (one) tablet (500 mg total) by mouth daily . Day before surgery No meloxicam (MOBIC) 7.5 MG tablet Take 1 (one) tablet (7.5 mg total) by mouth nightly as needed . Stop 7 days before surgery montelukast (SINGULAIR) 10 mg tablet Take 1 (one) tablet (10 mg total) by mouth daily . Yes NARCAN 4 mg/actuation [address] Administer 1 spray into one nostril for known or suspected opioid overdose. If patient worsens or does not respond, may repeat in 2-3 minutes. . Yes, if needed NONFORMULARY Take 1 tablet by mouth every evening Equate sleep aide 25mg . Night before surgery NONFORMULARY Take 1 tablet by mouth daily as needed Equate stay awake 200mg . Day before surgery No oxyCODONE-acetaminophen (PERCOCET) 10-325 mg per tablet Take 2 (two) tablets by mouth 3 (three) times a day as needed . Yes, if needed rOPINIRole (REQUIP) 2 MG tablet Take 1 (one) tablet (2 mg total) by mouth 3 (three) times a day as needed Reasons: restless legs syndrome, an extreme discomfort in the calf muscles when sitting or lying down. Day before surgery If needed sertraline (ZOLOFT) 50 MG tablet Take 1 (one) tablet (50 mg total) by mouth nightly . Night before surgery terbinafine HCL (LAMISIL) 250 mg tablet Take 1 (one) tablet (250 mg total) by mouth every morning .Day before surgery No Two days before your surgery Stop drinking any beverages containing alcohol Stop taking any recreational or illegal drugs If you have a prescription for medical marijuana please do not use for 24 hours prior to surgery Evening before your surgery Follow directions detailed on last page to begin your pre-operative skin prep shower with Hibiclens Remove nail serbian Do not eat anything within 8 hours of your arrival time for surgery (For example: If your arrival time is 1 pm you must not eat after 5 am) You may drink water only up to 2 hours prior to your arrival time for surgery (For example: If you arrival time is 1 pm you must not drink after 11 am) The day before your surgery between 1pm and 3pm you will receive a call from [facility] letting you know your arrival time at the hospital on the day of your surgery. If your surgery is on a Tuesday, then you will receive the call the Tuesday before. If you have not received a call by 3 pm please call [phone]. Please notify your surgeon if there are any changes in your medical history prior to surgery including an illness with: Fever Cold or Flu symptoms Painful urination and/or urinary frequency or urgency Rash or open sores Chest pain Shortness of breath On the Morning of Your Surgery DO: Take the medications indicated on the morning of surgery as instructed by nurse. You may ONLY drink water up to 2 hours before your arrival to the hospital For example: If your arrival time is 6 am stop drinking water at 4 am. You may have a small sip of water to take your pills Bring any inhalers with you to hospital Bring your CPAP/BIPAP with you to hospital [place] your teeth, rinse with water and spit out. Do not swallow Take another shower to finish the pre-operative skin prep following directions below Remove all piercings Remove contact lenses and keep them at home Wear loose-fitting, comfortable clothing that will not interfere with incision, dressing or braces when you are discharged Bring your Living Will and/or Medical Power of Fashion Consultant, if required DO NOT: Eat any food, gum, mints or hard candy Smoke, vape or use chewing tobacco Drink alcohol or use any recreational drugs including marijuana Use adhesives on dentures Shave the day of surgery Apply any lotions, powders, cologne or makeup. Apply deodorant if your surgery is on your shoulder, breast, heart or lung. Wear jewelry or metal hair accessories Bring any valuables from home This includes jewelry, purse, wallet or large sums of money. [facility] is not responsible for damaged or lost personal items Bring any weapons including guns or knives This applies to your family or friends as well Arrival at [facility] Please enter the East Entrance located in the front of the hospital Once registered they will direct you to the correct elevator. Select 2R . You will exit out of the backside of the elevator and the waiting area should be directly in front of you. If you are not greeted by a Communication Liaison once you arrive please follow instructions on thesign. A member of our staff will escort you to the pre-op area. Your family or friends will be asked to remain in the waiting area until your pre-op preparation is complete. This includes checking weight and vital signs, changing into surgical gown, starting IV, verifying your medical information and completing any needed paperwork. Once completed a limited number of family or friends may be allowed to come and visit you. If you will be going home the same day of surgery you must have a responsible adult to drive you home. You may not take a taxi, Uber/Lyft, bus or any other public transportation unless another responsible adult is with you. It is recommended that a responsible adult stay with you during the first 24 hours after surgery Thank you for choosing [facility] in [place] for your healthcare needs. Our goal is to provide exceptional care for all through experiences that earn a lifetime of trust. If you have any questions regarding these instructions please call. Pre-Admission Testing Department Tuesday-Tuesday from 7:30am-5:00pm Pre-Operative Directions for Using Chlorhexidine (Hibiclens) Skin Cleanser Hibiclens reduces the number of germs on your skin, which will decrease the chances of developing asurgical site infection. DO NOT USE if you are allergic to chlorhexidine gluconate. DO NOT USE in the genital (private) areas. DO NOT USE near the eyes or ears to avoid permanent injury to those areas. Shower the night before surgery AND in the morning before leaving for the hospital. For each shower, you will use one half (1/2) of the Hibiclens bottle, 2 washcloths and a clean towel. Shampoo and rinse hair as you normally do Wash face, neck and genital area with one washcloth using an antibacterial (i.e. Dial) soap. Rinse well. Set this washcloth aside. Work up a good lather on the 2nd (clean) washcloth using the bottle of Hibiclens. Turn the water off to prevent rinsing the soap off too soon. Gently scrub from the neck down for 5 minutes, paying special attention to the area where the surgery will be. Turn water back on the rinse thoroughly. Pat dry using a clean towel and put on clean clothes. The Hibiclens may make your skin feel dry, but DO NOT use powder or lotions, as this may reduce itseffectiveness. * Attachments The following attachments cannot be sent through Care Everywhere. * Incentive Spirometer: General Info (Kittitian) * Post-op Infection (Kittitian) * DVT (Deep Vein Thrombosis): Prevention: General Info (Kittitian) documented in this [id number] History of Present illness Narrative* Maria Elena Jaymie A, [employer]TAIN MARINE - 06/21/2023 12:30 PM EDT [facility] DAILY TREATMENT NOTE Today's Date 06/21/2023 Patient Name: Matthew Perez Date of : 1955 Current Visit #: 02/01 Authorized Visits: 4 Case Name: Lumbar radiculopathy and hip pain History: Pre-Treatment Pain Scale: 6.5/10 Symptoms: LBP, B hips down to B knees. Functional Diagnosis: 1. Lumbar pain 2. Left hip pain Clinical Information: Subjective: Today's Physical/Functional Problems being addressed: Decreased functional tolerances due to pain in LB and B LE's. Risks and benefits of treatment discussed with patient/post acute care nurse: yes The benefits of aquatic physical therapy include the resistance of the water to increase muscle strength and endurance, the pressure of the water to assist in decreasing joint and soft tissue swelling and pain, and the buoyancy of the water to decrease the stress on the joints, which makes the exercises less painful to perform. The temperature of the water helps to relax and decrease tightness inthe muscles, improving posture and mobility. Objective Total treatment time: 12:34-1:38 Direct treatment time: 12:40-1:25 Treatments: Aquatic Exercise Log - 06/21/23 1246 Aquatic Gait Intervention Forward;Lateral;Backward Comments x3 laps each Aerobic Endurance Intervention Bike;Flutter Kicks;Jumping Jacks Equipment x2 minutes each with WN Comments Dangle in deep water with WN x5 minutes Lower Extremity Intervention Squats;Toe raises/ Heel raises;Hip - Flex, ABD, Ext;Marching;HS curl Equipment Wall slides x15 Comments x15 each of all other ex's Other Exercises Billed Time 45 Aquatic Treatment Times Direct Treatment Time 45 minutes Total Treatment Time 64 Goals: Physical Therapy Ortho Goals: Short term goals to be met 2 weeks from 06/03/2023 A. Independent with home exercise program 06/21/23: Provided written HEP today for land and aquatic ex's. B. Increase bilateral hip flexion strength=>4+/5 to allow for increased functional mobility. 06/21/23: 4/5 B hip flexion strength C. Display appropriate posture and body mechanics >=75% of PT sessions to increase healing and increase postural and functional tolerances 06/21/23: Pt continues with forward flexed posture, rounded shoulders, and forward head. D. Patient will tolerate greater than 30 minutes of aquatic-based exercise to allow for increased function and mobility upon return to land. 06/21/23: Pt is able to tolerate 45 minutes of aquatic ex's with improved ability to walk out to [facility] after treatment. [facility] goals to be met 6 weeks from 06/03/2023 1. Patient will complete Romberg stance with eyes closed for greater than 30 seconds without loss of balance to allow for increased stability with functional activity. 06/21/23: Pt was able to complete Rhomberg stance EC for 30 seconds with increased sway, but no LOB before getting in pool today. Pt was barefoot during testing. 2. Patient will complete ambulation over unlevel surface for greater than 30 seconds without loss of balance or increase in lumbar or peripheral symptoms to allow improved mobility over uneven terrain. 06/21/23: Pt reports she was doing yard work of bending over to pull weeds the day after her last therapy session for about 30-45 minutes before she rested and she was unable to go back out and continue at that point due to pain. Transfer care to Riya Wheat PT Pt's Goal: Initial Evaluation 06/03/2023 HEP: 06/21/23: Pt provided with aquatic HEP for LE ex's for management of pain s/s. Provided HEP for LE strengthening on land as follows...Standing 3 way hip, marching, HS curls, sit to stand, Heel-toe raises, LAQ, seated hip adductor squeezes, seated scapular retraction, and sitting with lumbar support. Patient Education: Written HEP with patient written information provided . HEP provided for aquaticex's and land based ex's to improve pain levels and increase LE strength. Standing 3 way hip, marching, HS curls, sit to stand, Heel-toe raises, LAQ, seated hip adductor squeezes, seated scapular retraction, and sitting with lumbar support. Post-Treatment Pain Scale: 5/10 LBP Assessment: Patient had an expected response to treatment. Patient was given vc's for proper form throughout ex's performed to ensure good carry over with continuation of ex's on her own. Pt fatiguedat end of session with centralization of s/s at a decreased intensity today. Pt educated on aquaticex's to decrease pain and land ex's to provide improved strength gains. Skilled Intervention demonstrated by modifications of treatment per exercise log including increased intensity, increased mobility, and assessment of patient's response and safety interventions per exercise log. Progress towards goals as expected. Plan for Next Visit: Discharge to [facility] for land and aquatics with elio sneaMeterHeros membership at local [facility]. Jaymie Arredondo PTA STATE LICENSE, [id number] documented in this [id number] History of Present illness Narrative* Jaymie Arredondo PTA - 06/08/2023 2:00 PM EDT [facility] DA[facility] TREAT[facility] NOTE Today's Date 06/08/2023 Patient Name: Matthew Perez Date of : 1955 Current Visit #: 12/12 Authorized Visits: 99 Case Name: Lumbar radiculopathy and hip pain History: Pre-Treatment Pain Scale: 3 Symptoms: stabilized Functional Diagnosis: 1. Lumbar pain 2. Left hip pain Clinical Information: Subjective: Today's Physical/Functional Problems being addressed: Pt reports decreased LE strength and imbalance. Pt reports low pain today at 3/10 in L LB/post hip due to not doing much today. Risks and benefits of treatment discussed with patient/post acute care nurse: yes Objective Treatments: Physical Therapy Exercise Log - 06/08/23 1357 OTHER Precautions/Contraindications Fall risk Notes Patient goes by Matthew Courtney Treatment time: 1:59-2:28 Therapeutic Exercise ([id number]) Intervention Alternating LAQ x10 each Parameters Seated heel-toe raises x20 Intervention Seated hip adductor squeezes 10x5 each Parameters Sit to stand from mat table x10 Intervention Seated hip abd against red band x15 Parameters Seated HS curls with red band x15 each Intervention Standing 3 way hip x10 each, B LE's Parameters Standing HS curls x10 each Intervention Standing marching x10 each Parameters mini squats x10 Intervention Scifit seated stepper L1 x5 minutes PT Treatment Times Therex Total Time 26 Direct Treatment Time 26 Total Treatment Time 29 Goals: Physical Therapy Ortho Goals: Short term goals to be met 2 weeks from 06/03/2023 A. Independent with home exercise program B. Increase bilateral hip flexion strength=>4+/5 to allow for increased functional mobility. C. Display appropriate posture and body mechanics >=75% of PT sessions to increase healing and increase postural and functional tolerances D. Patient will tolerate greater than 30 minutes of aquatic-based exercise to allow for increased function and mobility upon return to land. 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 Patient will complete Romberg stance with eyes closed for greater than 30 seconds without loss of balance to allow for increased stability with functional activity. 2. Patient will complete ambulation over unlevel surface for greater than 30 seconds without loss of balance or increase in lumbar or peripheral symptoms to allow improved mobility over uneven terrain. Transfer care to Ri[facility] Wheat PT Pt's Goal: Initial Evaluation 06/03/2023 HEP: Patient Education: Pt is currently not performing any ex's at home due to her pain levels when she does certain movements. Post-Treatment Pain Scale: I can feel it. Assessment: Patient had an expected response to treatment. Pt fearful of doing too much stating, Iwill not feel it until later. Pt fatigued at end of session. Pt performed ex's without shoes on due to B foot edema. Pt reports she can feel it while she is ex'ing, but did not rate her pain at end of session. Pt will let me know at next visit how she tolerated the ex's later today. Skilled Intervention demonstrated by modifications of treatment per exercise log including increased intensity, increased mobility, and assessment of patient's response and safety interventions per exercise log. Progress towards goals as expected. Plan for Next Visit: Treatment Visit with focus on progression of ex's to pt activity tolerance. Jaymie Arredondo PTA STATE LICENSE, [employer].[id number] documented in this [id number] History of Present illness Narrative* Raoul Esposito, PT - 06/03/2023 1:45 PM EDT [facility] Evaluation Today's Date 06/03/2023 Patient Name: Matthew Perez Date of : 1955 Case Name: Lumbar radiculopathy and hip pain Functional Diagnosis: 1. Radiculopathy, lumbar region 2. Osteoarthritis of left hip, unspecified osteoarthritis type Clinical Information: General Initial Evaluation Pateint name: Matthew Perez Date of : 1955 Date: 06/03/2023 Medical Diagnosis: Lumbar pain and left hip. Contraindication/Precautions/Activity Restrictions: Falls, current blood clot. Referring Physician: Zafar Faith DO Orders: Frequency/Duration: 2x/wk for 6 weeks. Injury/Problems: Patient has had chronic Date of Onset: Chronic. Previous Relevant Injuries: 3 lumbar surgeries and 3 cervical spine surgeries and injections. Bloodclot located on 05/06/23--patient is currently taking medications. Previous Functional Level: Patient was able to complete yardwork. Home Setting: Lives with and son. 2 story home but patient is staying on the first level. 5-6 steps with railing to enter the home. Patient has a walk- in shower with grab bars. Prior PT for same condition: yes PT. Home Safety Issues/Concerns: Patient has had fallen multiple times this summer (imbalance with unlevel surfaces)--she has difficulty with transferring from the floor. Patient is able to complete independent bathing and dressing. Son carries laundry up and down stairs. She is able to complete some home care. Patient must use wheelchair when completing grocery shopping. DME: Occasional use of cane but mostly using rollator walker. Shower chair. Adventist/Social/Cultural Concerns: None Work Activities: Patient is able to water n[place]olson and picksome weeds. Mental/Emotional Concerns: A&Ox3/person/place/time Current Symptoms: Pain Grade: 4/10 Site: Bilateral brown pain. Intermittent left lateral thigh pain and spasms in the thigh and lower leg. Symptoms Increased By: Walking. Standing. Symptoms Decreased By: Sitting. Patient/Caregiver Goals: Improve mobility and functional strength and endurance to standing activity. Patient/Caregiver agrees with goals and plan: Yes Objective Evaluation/Findings General Observations: Guarded movement. Sensation: Right Achilles tendon numbness. Posture: Kyphotic posturing. Lumbar: Movement Loss Major Mod Min Nil Pain Flexion x NE Extension x NE Side gliding R x NE Side gliding L x NE Strength L_/5 R_/5 Hip Flexion 4 4 Knee Flexion Knee Extension 5 5 Ankle DF 5 5 Ankle PF Balance: Non-compliant surface: Eyes closed in shoulder-width stance=no loss of balance. Eyes closed in Romberg stance=increased sway and near loss of balance (reaching for furniture). Functional Mobility/Ability: Patient demonstrates guarded ambulation without assistive device. She demonstrates decreased step length bilaterally. Subjective Evaluation Treatments: Physical Therapy Exercise Log - 06/03/23 0700 OTHER Precautions/Contraindications Fall risk Notes Patient goes by [facility] Therapeutic Exercise (21425) Intervention Reviewed benefits of aquatic-based activity vs land-based activity. Treatment Plan: Frequency of Visits: twice per week Duration: 6 weeks Interventions: Therapeutic Exercise (38281), Neuromuscular Re-Education (63027), Manual Therapy (87719), Therapeutic/ Functional Activities (34758), Gait Training (96735), and Aquatic Therapy (42600) Rehab Potential: fair Goals: Physical Therapy Ortho Goals: Short term goals to be met 2 weeks from 06/03/2023 A. Independent with home exercise program B. Increase bilateral hip flexion strength=>4+/5 to allow for increased functional mobility. C. Display appropriate posture and body mechanics >=75% of PT sessions to increase healing and increase postural and functional tolerances D. Patient will tolerate greater than 30 minutes of aquatic-based exercise to allow for increased function and mobility upon return to land. 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 Patient will complete Romberg stance with eyes closed for greater than 30 seconds without loss of balance to allow for increased stability with functional activity. 2. Patient will complete ambulation over unlevel surface for greater than 30 seconds without loss of balance or increase in lumbar or peripheral symptoms to allow improved mobility over uneven terrain. Transfer care to Riya Wheat PT Pt's Goal: Initial Evaluation 06/03/2023 HEP: Clinical Impression: Patient demonstrates signs and symptoms of chronic pain of the lumbar spine and referring into the periphery. She demonstrates compromised balance in which she appears heavily reliant on vision. Patient will benefit from completion of both aquatic and land-based exercise/activity to address impairments. Patient will benefit from completion of skilled therapy to facilitate safe and effective treatment to improve upon these impairments and regain function. Patient was in agreement with plan of care. Patient had no further questions or concerns upon completion of today's session. Raoul Esposito, PT STATE LICENSE, PT.[id number] documented in this [id number] Miscellaneous Notes* Telephone Encounter - Sofy Lopez RN - 04/29/2023 11:04 AM EDT Faxed * Telephone Encounter - Janell Downey Pss - 04/29/2023 9:25 AM EDT Wandy from outpatient rehab on behalf of Matthew Perez is calling Zafar Faith DO today to request Order - PT. Patient has been identified by name and birthdate. Wandy states the patient has expressed interest in having her PT at their facility She is requesting the order be faxed to her attention at [facility] . Janell Downey PSS [facility] Instructions* Patient Instructions* Zafar Faith DO - 04/22/2023 3:14 PM EDT Please call [phone] to schedule MRI spine. Call [phone] to schedule appt with spine documented in this encounterF[facility]06-[facility]23 NoteHNO ID: [id number] Author: Zafar Faith, DO Service: ? Author Type: Physician Type: Progress Notes Filed: 04/22/2023 3:19 PM Note Text: NEW Left Hip EVALUATION NEW PATIENT HISTORY AND PHYSICAL EXAM PATIENT INFO: Matthew Perez 68 year old REFERRING M.D.: No referring provider defined for this encounter. HISTORY CHIEF COMPLAINT: pain in Left Hip HPI: Patient is a 68 year old year old FEMALE here today for evaluation of left hip pain. The patient has been seen down in the [place] area for her left hip or low back or SI joint. She has had previous lumbar spinal surgeries x3. Her pain she describes is twofold #1 she has pain in the low back over the SI joint but she also has a burning searing sensation when lying flat or at night. She has difficulty sleeping at night secondary to this burning pain that wraps around from the low lumbar spine on the left and then down the left lower extremity along the lateral aspect of the hip and down to the level of the knee. She does get pain in the groin intermittently this is not her main complaint today. She has had previous injections in the paraspinal area and is well as the left hip. She states the left hip injection was done in early February we do not have these notes from care everywhere but it states in a follow-up note that she just recently received an intra-articular hip injection and this was mid February. We assume that this was in early February that she received the injection and this gave her not really any significant relief of the burning type discomfort she describes she states that the groin pain did get better with this injection inside the left hip joint. She has had SI joint injections as well. [place] physician is recommending that she proceed with SI joint fusion. She is here for further consideration of options. Patient is currently on Celebrex as well as oxycodone 10/325 6 times a day. She denies any bowel or bladder dysfunction any saddle anesthesia. All 3 lumbar spinal surgeries were done by different physicians. PAST MEDICAL HISTORY Diagnosis Date Chronic depressive personality disorder Congestive heart failure, unspecified Myalgia and myositis, unspecified Other forms of migraine PMH - PAST MEDICAL HISTORY OF h/o thyroid issues when with her son Restless legs syndrome (RLS) Unspecified essential hypertension Essential hypertension Unspecified sleep apnea PAST SURGICAL HISTORY Procedure Laterality Date PAST SURGICAL HISTORY OF h/o 3 right foot surgeries PAST SURGICAL HISTORY OF 10/02 lumbar fusion TOTAL ABDOMINAL HYSTERECT W/WO RMVL TUBE OVARY 2005 Hysterectomy, CARLOS MANUEL Current Outpatient Medications Medication Sig Dispense Refill QVAR REDIHALER 40 mcg/actuation inhaler albuterol HFA (PROVENTIL HFA, VENTOLIN HFA) 90 mcg/actuation inhaler Inhale 2 Puffs as instructed every 4 hours as needed. celecoxib (CELEBREX) 200 mg capsule diclofenac (VOLTAREN) 1 % topical gel Apply to affected area. ipratropium (ATROVENT) 0.02 % nebulizer solution Inhale 0.5 mg as instructed. oxyCODONE-acetaminophen (PERCOCET 10) 10-325 mg tablet rOPINIRole (REQUIP) 1 mg tablet Take 2 tablets by mouth q 24 HR. sertraline (ZOLOFT) 100 mg tablet Take by mouth q 24 HR. lisinopril(ZESTRIL 20 MG TAB) Take one(1) tablet two(2) times daily. 0 amlodipine besylate(NORVASC 10 MG TAB) Take one(1) tablet daily. 0 HYDROCODONE-ACETAMINOPHEN ORAL Take by mouth every 6 hours as needed. (Patient not taking: Reported on 04/22/2023) Melatonin 5 mg cap Take 5 mg by mouth. (Patient not taking: Reported on 04/22/2023) montelukast (SINGULAIR) 10 mg tablet (Patient not taking: Reported on 04/22/2023) naloxone 4 mg/actuation nasal spray (NARCAN) Narcan 4 mg/actuation nasal spray furosemide (LASIX) 20 mg tablet Take by mouth q 24 HR. (Patient not taking: Reported on 04/22/2023) SUMAtriptan (IMITREX) 100 mg tablet Take 100 mg by mouth. (Patient not taking: Reported on 04/22/2023) tiotropium (SPIRIVA) 18 mcg inhalation capsule Inhale 18 mcg as instructed q 24 HR. (Patient not taking: Reported on 04/22/2023) traZODone (DESYREL) 50 mg tablet Take 50 mg by mouth. (Patient not taking: Reported on 04/22/2023) ascorbic acid(VITAMIN C 500 MG TAB) Take one(1) tablet daily. (Patient not taking: No sig reported) 0 butalb/acetaminophen/caffeine(FIORICET 50 MG-325 MG-40 MG TAB) as necessary (Patient not taking: Reported on 04/22/2023) 0 SOTALOL 80 MG TAB Take one(1) tablet three times daily. (Patient not taking: Reported on 04/22/2023) 0 CLONAZEPAM 1 MG TAB Take one(1) tablet daily at bedtime. (Patient not taking: Reported on 04/22/2023) 0 No current facility-administered medications for this visit. ALLERGIES Allergen Reactions Duloxetine GI Upset Nausea Nsaids (Non-Steroid* GI Upset, Vomiting Ibuprofen GI Upset, Vomiting Pregabalin Other: See Comments Othe (more content not included)...[facility]06-23-2023 History of Present illness Narrative* Zafar Faith DO - 04/22/2023 3:12 PM EDT NEW Left Hip EVALUATION NEW PATIENT HISTORY AND PHYSICAL EXAM PATIENT INFO: Matthew Perez 68 year old REFERRING M.D.: No referring provider defined for this encounter. HISTORY CHIEF COMPLAINT: pain in Left Hip HPI: Patient is a 68 year old year old FEMALE here today for evaluation of left hip pain. The patient has been seen down in the [place] area for her left hip or low back or SI joint. She has had previouslumbar spinal surgeries x3. Her pain she describes is twofold #1 she has pain in the low back over the SI joint but she also has a burning searing sensation when lying flat or at night. She has difficulty sleeping at night secondary to this burning pain that wraps around from the low lumbar spine on the left and then down the left lower extremity along the lateral aspect of the hip and down to the level of the knee. She does get pain in the groin intermittently this is not her main complaint today. She has had previous injections in the paraspinal area and is well as the left hip. She states the left hip injection was done in early February we do not have these notes from care everywhere but it states in a follow-up note that she just recently received an intra-articular hip injection and thiswas mid February. We assume that this was in early February that she received the injection and this gave hernot really any significant relief of the burning type discomfort she describes she states that the groin pain did get better with this injection inside the left hip joint. She has had SI joint injections as well. [place] physician is recommending that she proceed with SI joint fusion. She is here for further consideration of options. Patient is currently on Celebrex as well as oxycodone 10/325 6times a day. She denies any bowel or bladder dysfunction any saddle anesthesia. All 3 lumbar spinal surgeries were done by different physicians. PAST MEDICAL HISTORY Diagnosis Date Chronic depressive personality disorder Congestive heart failure, unspecified Myalgia and myositis, unspecified Other forms of migraine PMH - PAST MEDICAL HISTORY OF h/o thyroid issues when with her son Restless legs syndrome (RLS) Unspecified essential hypertension Essential hypertension Unspecified sleep apnea PAST SURGICAL HISTORY Procedure Laterality Date PAST SURGICAL HISTORY OF h/o 3 right foot surgeries PAST SURGICAL HISTORY OF 10/02 lumbar fusion TOTAL ABDOMINAL HYSTERECT W/WO RMVL TUBE OVARY 2005 Hysterectomy, CARLOS MANUEL Current Outpatient Medications Medication Sig Dispense Refill QVAR REDIHALER 40 mcg/actuation inhaler albuterol HFA (PROVENTIL HFA, VENTOLIN HFA) 90 mcg/actuation inhaler Inhale 2 Puffs as instructed every 4 hours as needed. celecoxib (CELEBREX) 200 mg capsule diclofenac (VOLTAREN) 1 % topical gel Apply to affected area. ipratropium (ATROVENT) 0.02 % nebulizer solution Inhale 0.5 mg as instructed. oxyCODONE-acetaminophen (PERCOCET 10) 10-325 mg tablet rOPINIRole (REQUIP) 1 mg tablet Take 2 tablets by mouth q 24 HR. sertraline (ZOLOFT) 100 mg tablet Take by mouth q 24 HR. lisinopril(ZESTRIL 20 MG TAB) Take one(1) tablet two(2) times daily. 0 amlodipine besylate(NORVASC 10 MG TAB) Take one(1) tablet daily. 0 HYDROCODONE-ACETAMINOPHEN ORAL Take by mouth every 6 hours as needed. (Patient not taking: Reportedon 04/22/2023) Melatonin 5 mg cap Take 5 mg by mouth. (Patient not taking: Reported on 04/22/2023) montelukast (SINGULAIR) 10 mg tablet (Patient not taking: Reported on 04/22/2023) naloxone 4 mg/actuation nasal spray (NARCAN) Narcan 4 mg/actuation nasal spray furosemide (LASIX) 20 mg tablet Take by mouth q 24 HR. (Patient not taking: Reported on 04/22/2023) SUMAtriptan (IMITREX) 100 mg tablet Take 100 mg by mouth. (Patient not taking: Reported on 04/22/2023) tiotropium (SPIRIVA) 18 mcg inhalation capsule Inhale 18 mcg as instructed q 24 HR. (Patient not taking: Reported on 04/22/2023) traZODone (DESYREL) 50 mg tablet Take 50 mg by mouth. (Patient not taking: Reported on 04/22/2023) ascorbic acid(VITAMIN C 500 MG TAB) Take one(1) tablet daily. (Patient not taking: No sig reported)0 butalb/acetaminophen/caffeine(FIORICET 50 MG-325 MG-40 MG TAB) as necessary (Patient not taking: Reported on 04/22/2023) 0 SOTALOL 80 MG TAB Take one(1) tablet three times daily. (Patient not taking: Reported on 04/22/2023)0 CLONAZEPAM 1 MG TAB Take one(1) tablet daily at bedtime. (Patient not taking: Reported on 04/22/2023) 0 No current facility-administered medications for this visit. ALLERGIES Allergen Reactions Duloxetine GI Upset Nausea Nsaids (Non-Steroid* GI Upset, Vomiting Ibuprofen GI Upset, Vomiting Pregabalin Other: See Comments Other reaction(s): Other (See Comments) nightmares nightmares Metformin GI Upset Other reaction(s): GI Intolerance FAMILY HISTORY Problem Relation Age of Onset Diabetes Father Heart Father Hypertension Father Breast Cancer Mother with mets to brain, lung and liver Social History Tobacco Use Smoking status: Never Smokeless tobacco: Never Substance Use Topics Alcohol use: No Comment: 1-2 drinks per year Drug use: Never Prior surgical treatments: None on the left hip, lumbar spinal surgery x3 Review of Systems: Review of Systems - General ROS: negative for - chills or fever Psychological ROS: negative for - behavioral disorder or hostility Respiratory: Negative for chest tightness and shortness of breath. Musculoskeletal ROS: positive for -low back pain with radicular pain burning pain as well as left intermittent groin pain Hematologic/Lymph: negative for DVT, negative for anticoagulation All other systems deferred. Psych: Patient in tears today secondary to pain CARDIAC: regular rate to peripheral pulse palpation LUNGS: Breathing non labored, equal chest expansion GENERAL: Appears healthy, well-nourished, no deformities. HABITUS: well developed or well nourished GAIT: Patient walked with a walker to the office but was able to ambulate with no walker during exam, she does limp NEURO: L3-S1 Sensation intact VASCULAR: Palpable dorsalis pedis pulse ORTHO EXAM: Today in the standing position she had no discomfort over the left greater trochanter. She did have tenderness palpation at the SI joint this was the most significant discomfort. She alsohad pain in the low lumbosacral junction on the left side. In the seated position on the exam tableher internal rotation was to 20 external to 20 even at the extremes of motion I cannot elicit any type of groin discomfort or any type of pain at all with range of motion the left hip. Cannot elicit any pain with resisted hip flexion in the groin. This caused some low back discomfort but no groin pain. Supine position her Abdoulaye's test was negative completely with no pain generator internal impin gement testing caused absolutely no discomfort either. DIAGNOSTICS: Xray of the Left Hip shows atox-st-rgys articulation with sclerosis osteophyte subchondral cystic formation. ASSESSMENT/PLAN: M54.16 Radiculopathy of lumbar region (primary encounter diagnosis) Comment: This patient certainly does have left hip osteoarthritis. There is no doubt that she may need a total hip in the future but currently I am absolutely unable to elicit any type of groin pain or any pain at all with range of motion of the left hip. This burning pain that she is experiencing that is waking her at night and not allowing her to sleep either in a chair bed or couch is likely coming from the lumbar spine or SI joint. She has not had a recent MRI that she describes. I would recommend that we proceed with an MRI with and without contrast to evaluate the lumbar spine in further detail. Her groin pain is very intermittent at best. This is certainly coming from her left hip osteoarthritis but at the current time I cannot elicit any type of physical exam findings consistent with left hip osteoarthritis. I do not believe that surgical intervention on her hip would benefit this patient as of right now. She will be referred over to the spine team for further evaluation and treatment. I also recommended we proceed with aquatic and land-based therapy for this patient as she has not had any type of therapy. This would be for SI joint dysfunction, core pelvic abdominal musculature training for her low back pain with radiculopathy. Patient also was wondering if I was able to give her anything else for pain. She is on oxycodone acetaminophen 10/325 6 times a day as well as Celebrex. I do not have anything else to offer her at this time unfortunately. M16.12 Primary osteoarthritis of left hip Comment: As above Sacroiliitis As above Greater than 1 hour of time was spent reviewing the records from [place] and other doctors. Also reviewing her chart in regards to her sacroiliac injections, searching for her osteoarthritic left hip injection, spinal injections, previous spinal surgeries, etc. Zafar Faith DO * Sofy Lopez RN - 04/22/2023 2:00 PM EDT Left hip pain Being worked up for pain generator - hip v back v SI joint Was referred to neurosurgery by her ortho doc in [place] [address] Spine injection /7 IA CSI left hip early May? SI joint injection 03/30 Percocet Voltaren gel documented in this [facility]23 NoteHNO ID: [id number] Author: Sofy Lopez RN Service: ? Author Type: Registered Nurse Type: Progress Notes Filed: 04/22/2023 3:19 PM Note Text: Left hip pain Being worked up for pain generator - hip v back v SI joint Was referred to neurosurgery by her ortho doc in [place] [address] Spine injection 4/7 IA CSI left hip early February? SI joint injection 03/30 Percocet [facility]06-23-2023 History of Present illness Narrative* [place] RT(Ezequiel) - 04/22/2023 1:20 PM EDT Radiology Service Progress Note PATIENT NAME: Matthew Perez DATE OF SERVICE: April 22, 2023 TIME: 2:00 PM PATIENT IDENTITY VERIFICATION COMPLETED USING TWO (2) IDENTIFIERS: Name and Date of confirmedby patient verbally. FALL SCREENING: Has the patient had 2 falls in the last year or 1 fall with injury or currently using an Ambulatory Assistive Device (Walker, Cane, Wheelchair, Crutches, etc.)? No PATIENT GENDER DATA: Female. status: : No status: NO. PATIENT RELEVANT IMPLANT DATA REVIEWED: Not Applicable RADIOLOGY DEPARTMENT: General X-ray: Exam(s) Completed: Pelvis X-Ray: Pelvis with Hip Left PERIPHERAL IV DATA: Not applicable SIGNED BY: RT Benita(Ezequiel) April 22, 2023 2:00 PM documented in this [facility]06-23-2023 NoteHNO ID: [id number] Author: DONA Joy) Service: Radiology Author Type: Parts Salesman Type: Progress Notes Filed: 04/22/2023 2:11 PM Note Text: Radiology Service Progress Note PATIENT NAME: Matthew Perez DATE OF SERVICE: April 22, 2023 TIME: 2:00 PM PATIENT IDENTITY VERIFICATION COMPLETED USING TWO (2) IDENTIFIERS: Name and Date of confirmed by patient verbally. FALL SCREENING: Has the patient had 2 falls in the last year or 1 fall with injury or currently using an Ambulatory Assistive Device (Walker, Cane, Wheelchair, Crutches, etc.)? No PATIENT GENDER DATA: Female. status: : No status: NO. PATIENT RELEVANT IMPLANT DATA REVIEWED: Not Applicable RADIOLOGY DEPARTMENT: General X-ray: Exam(s) Completed: Pelvis X-Ray: Pelvis with Hip Left PERIPHERAL IV DATA: Not applicable SIGNED BY: RT Benita(Ezequiel) April 22, 2023 2:00 [facility]06-19-2023 NoteHNO ID: [id number] Author: RT Madeline(R) Service: ? Author Type: Technologist Type: Progress Notes Filed: 04/18/2023 2:11 PM Note Text: Radiology Service Progress Note PATIENT NAME: Matthew Perez DATE OF SERVICE: April 18, 2023 TIME: 2:11 PM PATIENT IDENTITY VERIFICATION COMPLETED USING TWO (2) IDENTIFIERS: Name and Date of confirmed by patient verbally. FALL SCREENING: Has the patient had 2 falls in the last year or 1 fall with injury or currently using an Ambulatory Assistive Device (Walker, Cane, Wheelchair, Crutches, etc.)? Yes, Patient High Risk for Falls What interventions were put in place to prevent falls during this visit? Increased Observations by Caregivers PATIENT GENDER DATA: Female. status: : No status: NO. PATIENT RELEVANT IMPLANT DATA REVIEWED: Not Applicable RADIOLOGY DEPARTMENT: General X-ray: Exam(s) Completed: Upper Extremity X-Ray(s): Hand, right PERIPHERAL IV DATA: Not applicable SIGNED BY: RT Madeline(R) April 18, 2023 2:11 [facility]06-19-2023 NoteHNO ID: [id number] Author: Giacomo Vanessa MD Service: ? Author Type: Physician Type: Progress Notes Filed: 05/17/2023 11:34 PM Note Text: Giacomo Vanessa MD Department of Orthopaedics Orthopaedics [address] [place] [id number] Dept: [phone] Dept April 18, 2023 CHIEF COMPLAINT: New, Musculoskeletal Problem, and Pain of the Right Hand HPI Patient presents to office for right hand deformity. Patient states symptoms started 2 months ago after she was firmly grabbing steering wheel for 2 hours. Patient complain of pain rating 1/10 on pain scale. AMB ROOMING INTAKE FLOWSHEET DATA Risk Screening Do you have concerns about personal safety or safety in the home?: Yes. 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 We can try jalen strapping and OT splinting. Surgical correction, she can follow up with Dr. Hale. FOLLOW UP INSTRUCTIONS: As above. Ms. Matthew Perez was advised as to contrast therapies and/or to take analgesics/anti-inflammatories as needed and all contraindications were reviewed. OBJECTIVE: Ms. Matthew Perez is a pleasant 68 year old in no apparent distress. Gen:There were no vitals taken for this visit. nl development, non obese, no deformities ENT: Normocephalic, normal hearing, moist mucosa CV: Pulses:Radial= 2+ and symmetric, capillary refill < 2 secs, no peripheral edema/varicosities Skin: no rash, bruising or lesions. Good turgor. Psych: cooperative and appropriate, alert and oriented x 3, good mood and affect. Musculoskeletal: Extensor tendon subluxation. IMAGING: IMPRESSION: DEGENERATIVE JOINT DISEASE, NO ACUTE BONY ABNORMALITY. Squirrel Worker: PSCB Transcribe Date/Time: Apr 23 2023 11:04A Dictated by : SAM PEARSON MD This examination was interpreted and the report reviewed and electronically signed by: SAM PEARSON MD on Apr 23 2023 11:07AM EST Results-Findings * * *Final Report* * * DATE OF EXAM: Apr 18 2023 1:44PM [id number] [id number] - XR HAND 3V PA/LAT/OBL RT / PROCEDURE REASON: Right hand pain * * * * Physician Interpretation * * * * HISTORY: 68-YEAR-OLD FEMALE WITH Right hand pain . PT STATES MIDDLE AND RING FINGER TNEDON ISSUE. NO INJURY STARTED 2 MONTHS AGO TECHNIQUE: XR HAND 3V PA/LAT/OBL RT Laterality: RIGHT Number of different views (projections): 3 COMPARISON: None RESULT: Right hand: Small osteophytes at the first CMC and IP joint of the thumb. Small osteophytes at the MCP joint of the second digit. Slight ulnar subluxation of the second, third and fourth digit at the MCP joint. Degenerative changes of the PIP joint of the fourth and fifth digit. No fracture. No erosions. Supporting Subjective Information Below: Past Medical History: PAST MEDICAL HISTORY Diagnosis Date Chronic depressive personality disorder Congestive heart failure, unspecified Myalgia and myositis, unspecified Other forms of migraine PMH - PAST MEDICAL HISTORY OF h/o thyroid issues when with her son Restless legs syndrome (RLS) Unspecified essential hypertension Essential hypertension Unspecified sleep apnea Past Surgical History: PAST SURGICAL HISTORY Procedure Laterality Date PAST SURGICAL HISTORY OF h/o 3 right foot surgeries PAST SURGICAL HISTORY OF 10/02 lumbar fusion TOTAL ABDOMINAL HYSTERECT W/WO RMVL TUBE OVARY 2005 Hysterectomy, CARLOS MANUEL Family History: FAMILY HISTORY Problem Relation Age of Onset Diabetes Father Heart Father Hypertension Father Breast Cancer Mother with mets to brain, lung and liver Social History: Social History Tobacco Use Smoking status: Never Smokeless tobacco: Never Substance Use Topics Alcohol use: No Comment: 1-2 drinks per year Drug use: Never Medications: Current Outpatient Medications Medication Sig albuterol HFA (PROVENTIL HFA, VENTOLIN HFA) 90 mcg/actuation inhaler Inhale 2 Puffs as instructed every 4 hours as needed. celecoxib (CELEBREX) 200 mg capsule diclofenac (VOLTAREN) 1 % topical gel Apply to affected area. ipratropium (ATROVENT) 0.02 % nebulizer solution Inhale 0.5 mg as instructed. HYDROCODONE-ACETAMINOPHEN ORAL Take by mouth every 6 hours as needed. Melatonin 5 mg cap Take 5 mg by mouth. montelukast (SINGULAIR) 10 mg tablet naloxone 4 mg/actuation nasal spray (NARCAN) Narcan 4 mg/actuation nasal spray oxyCODONE-acetaminophen (PERCOCET 1 (more content not included)...[facility]06-19-2023 History of Present illness Narrative* Giacomo Vanessa MD - 04/18/2023 1:54 PM EDT Giacomo Vanessa MD Department of Orthopaedics Orthopaedics [address] [facility] [address] Dept: [phone] Dept April 18, 2023 CHIEF COMPLAINT: New, Musculoskeletal Problem, and Pain of the Right Hand HPI Patient presents to office for right hand deformity. Patient states symptoms started 2 months ago after she was firmly grabbing steering wheel for 2 hours. Patient complain of pain rating 1/10 on pain scale. AMB ROOMING INTAKE FLOWSHEET DATA Risk Screening Do you have concerns about personal safety or safety in the home?: Yes. 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 We can try jalen strapping and OT splinting. Surgical correction, she can follow up with Dr. Hale. FOLLOW UP INSTRUCTIONS: As above. Ms. Matthew Perez was advised as to contrast therapies and/or to take analgesics/anti-inflammatoriesas needed and all contraindications were reviewed. OBJECTIVE: Ms. Matthew Perez is a pleasant 68 year old in no apparent distress. Gen:There were no vitals taken for this visit. nl development, non obese, no deformities ENT: Normocephalic, normal hearing, moist mucosa CV: Pulses:Radial= 2+ and symmetric, capillary refill < 2 secs, no peripheral edema/varicosities Skin: no rash, bruising or lesions. Good turgor. Psych: cooperative and appropriate, alert and oriented x 3, good mood and affect. Musculoskeletal: Extensor tendon subluxation. IMAGING: IMPRESSION: DEGENERATIVE JOINT DISEASE, NO ACUTE BONY ABNORMALITY. Squirrel Worker: P[facility] Transcribe Date/Time: Apr 23 2023 11:04A Dictated by : SAM PEARSON MD This examination was interpreted and the report reviewed and electronically signed by: SAM PEARSON MD on Apr 23 2023 11:07AM EST Results-Findings * * *Final Report* * * DATE OF EXAM: Apr 18 2023 1:44PM [id number] - XR HAND 3V PA/LAT/OBL RT / PROCEDURE REASON: Right hand pain * * * * Physician Interpretation * * * * HISTORY: 68-YEAR-OLD FEMALE WITH Right hand pain . PT STATES MIDDLE AND RING FINGER TNEDON ISSUE. NO INJURY STARTED 2 MONTHS AGO TECHNIQUE: XR HAND 3V PA/LAT/OBL RT Laterality: RIGHT Number of different views (projections): 3 COMPARISON: None RESULT: Right hand: Small osteophytes at the first CMC and IP joint of the thumb. Small osteophytes at the MCP joint of the second digit. Slight ulnar subluxation of the second, third and fourth digit at the MCP joint. Degenerative changes of the PIP joint of the fourth and fifth digit. No fracture. No erosions. Supporting Subjective Information Below: Past Medical History: PAST MEDICAL HISTORY Diagnosis Date Chronic depressive personality disorder Congestive heart failure, unspecified Myalgia and myositis, unspecified Other forms of migraine PMH - PAST MEDICAL HISTORY OF h/o thyroid issues when with her son Restless legs syndrome (RLS) Unspecified essential hypertension Essential hypertension Unspecified sleep apnea Past Surgical History: PAST SURGICAL HISTORY Procedure Laterality Date PAST SURGICAL HISTORY OF h/o 3 right foot surgeries PAST SURGICAL HISTORY OF 10/02 lumbar fusion TOTAL ABDOMINAL HYSTERECT W/WO RMVL TUBE OVARY 2005 Hysterectomy, CARLOS MANUEL Family History: FAMILY HISTORY Problem Relation Age of Onset Diabetes Father Heart Father Hypertension Father Breast Cancer Mother with mets to brain, lung and liver Social History: Social History Tobacco Use Smoking status: Never Smokeless tobacco: Never Substance Use Topics Alcohol use: No Comment: 1-2 drinks per year Drug use: Never Medications: Current Outpatient Medications Medication Sig albuterol HFA (PROVENTIL HFA, VENTOLIN HFA) 90 mcg/actuation inhaler Inhale 2 Puffs as instructed every 4 hours as needed. celecoxib (CELEBREX) 200 mg capsule diclofenac (VOLTAREN) 1 % topical gel Apply to affected area. ipratropium (ATROVENT) 0.02 % nebulizer solution Inhale 0.5 mg as instructed. HYDROCODONE-ACETAMINOPHEN ORAL Take by mouth every 6 hours as needed. Melatonin 5 mg cap Take 5 mg by mouth. montelukast (SINGULAIR) 10 mg tablet naloxone 4 mg/actuation nasal spray (NARCAN) Narcan 4 mg/actuation nasal spray oxyCODONE-acetaminophen (PERCOCET 10) 10-325 mg tablet furosemide (LASIX) 20 mg tablet Take by mouth q 24 HR. rOPINIRole (REQUIP) 1 mg tablet Take 2 tablets by mouth q 24 HR. sertraline (ZOLOFT) 100 mg tablet Take by mouth q 24 HR. SUMAtriptan (IMITREX) 100 mg tablet Take 100 mg by mouth. tiotropium (SPIRIVA) 18 mcg inhalation capsule Inhale 18 mcg as instructed q 24 HR. traZODone (DESYREL) 50 mg tablet Take 50 mg by mouth. butalb/acetaminophen/caffeine(FIORICET 50 MG-325 MG-40 MG TAB) as necessary lisinopril(ZESTRIL 20 MG TAB) Take one(1) tablet two(2) times daily. SOTALOL 80 MG TAB Take one(1) tablet three times daily. amlodipine besylate(NORVASC 10 MG TAB) Take one(1) tablet daily. CLONAZEPAM 1 MG TAB Take one(1) tablet daily at bedtime. ascorbic acid(VITAMIN C 500 MG TAB) Take one(1) tablet daily. (Patient not taking: Reported on 04/18/2023) No current facility-administered medications for this visit. Allergies: Patient has no known allergies. ROS: General (negative for fatigue, malaise, weight loss/gain) HEENT (negative for headache, earache, recent vision changes, sinus pain, sore throat) Respiratory (no recent shortness of breath, hemoptysis) CV (negative for chest tightness, palpitations) Musculoskeletal (see HPI) Psych (no depression, anxiety) [facility]acomo Vanessa MD [facility] of Present illness Narrative* Mica Tejeda - 03/30/2023 1:40 PM EDT The patient is here today for her L SI joint. She is also requesting that the xray of her L knee belooked at. Her pain is sharp and burning down her L leg and occasionally her R leg. At her last visit on 02/22/23 she states she has an appointment with [facility] for her R hand and she states the L lumbar paraspinal injection did not help with her pain. She states her pain is a 5/10 in the office and can get up to a 10/10. * Morgan Diggs - 03/30/2023 1:40 PM EDTAssociated Order(s): LARGE JOINT/BURSA INJECTION AND/OR ASPIRATION LARGE JOINT/BURSA INJECTION AND/OR ASPIRATION Date/Time: 03/30/2023 1:40 PM Performed by: Raoul Lundy MD Authorized by: Raoul Lundy MD Supporting Documentation Indications: pain and osteoarthritis Procedure Details: Location: sacroiliac - L sacroiliac joint Local Anesthetic: bupivacaine 0.5% and lidocaine 1% Total Local Anesthetic: 4 mLs Guidance: ultrasound Ultrasound probe size: 4 mHz curvilinear Images were saved electronically. Needle size: 22 G Needle Length: 4.0 inch Approach: posterior Medication Verification: I have personally verified and performed the final check of the medication(s) used in this procedure prior to administration. The following items were included during the verification process for medication(s) administered: drug name, strength, volume, expiration, physical integrity and appearance of the medication(s). Medications administered: 1 mL bupivacaine 0.5 %; 2 mL triamcinolone 40 MG/ML; 4 mL Lidocaine 10 mg/mL; 5 mL Sodium chloride (PF) 0.9 %; 4 mg dexAMETHasone 4 MG/ML Patient tolerance: patient tolerated the procedure well with no immediate complications Comments Medical Decision Making At today's visit I reviewed the history, physical examination, and previous pertinent imaging. We weighed the options of whether or not to proceed with an injection today based off of these findings and discussed alternatives. After this discussion, I felt that the injection was indicated and we elected to proceed. This evaluation and management service was a separate and identifiable service apart from the injection. Pre-Procedure Details The attending physician was present for the entire procedure. Consent: Consent was obtained prior to the procedure after discussion of the risks, benefits and alternatives, and expected outcomes were discussed with the patient. The possibilities of reaction to medication, bleeding, infection, the need for additional procedures, failure to diagnosis a condition, and creating a complication requiring operation were discussed with the patient. The patient concurred with the proposed plan, giving consent. Preparation: Patient was prepped in the usual sterile fashion. The patient was prepped with Chloraprep. Patient counseled on expected outcome and continued treatment and healing process. Patient tolerated the procedure well and was discharged in good condition with post-procedure instructions and anticipatory guidance regarding possible adverse reactions after the procedure including but not limited to infection, injection site flare reaction, allergic reaction. If corticosteroids were used then specifically the patient may develop hyperglycemia, facial flushing, heart palpitations amongst many other side effects associated with corticosteroids. Patient reported 100% pain relief while anaesthetized at left sacroiliac joint. The patient has a year history of pain involving left sacroiliac joint. The diagnosis of pain emanating from the sacroiliac joint has been arrived at with diligent investigation. In the course our recent treatment as well as prior treatment, alternative pain generators and diagnoses have been excluded. This has been accomplished clinically and diagnostically by incorporating information from history, physical exam, imaging and diagnostic guided injection. The patient meets both ISASS and NINA guidelines for minimally invasive SI joint fusion: We have found: Over 6 months of intensive conservative treatment has failed including physical therapy, medications, SI belt, therapeutic injections. 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 100% relief while anesthetized during guided injection to the Left sacroiliac joint on 12/03/2022. 100% relief while anesthetized during guided injection to the Left sacroiliac joint on 03/30/2023. The patient has an absence of generalized pain or disorders. Positive Franki's sign. Positive tenderness to the sacral sulcus on the left side. Positive physical exam for 3 or more provocative maneuvers including thigh thrust, Gaenslen, NIR,compression test, distraction test. Diagnostic imaging reveals degenerative changes involving the sacroiliac joint and no evidence for inflammatory arthropathy is noted. All other diagnoses that could account for the patient's pain have been ruled out. Unfortunately, we have not accomplished long-term pain relief with conservative measures for 6 months or more. We have exhausted conservative measures including activity modification, physical therapy and injection treatments. The patient is expected to continue with pain and disability. The best next step is fusion of the sacroiliac joint, in my opinion. We will now refer to Dr. Thurston for surgical opinion and recommendations. * Raoul Lundy MD - 03/30/2023 1:40 PM EDT The patient is here today for her L SI joint. She is also requesting that the xray of her L knee belooked at. Her pain is sharp and burning down her L leg and occasionally her R leg. At her last visit on 02/22/23 she states she has an appointment with [facility] for her R hand and she states the L lumbar paraspinal injection did not help with her pain. She states her pain is a 5/10 in the office and can get up to a 10/10. LARGE JOINT/BURSA INJECTION AND/OR ASPIRATION Date/Time: 03/30/2023 1:40 PM Performed by: Raoul Lundy MD Authorized by: Raoul Lundy MD Supporting Documentation Indications: pain and osteoarthritis Procedure Details: Location: sacroiliac - L sacroiliac joint Local Anesthetic: bupivacaine 0.5% and lidocaine 1% Total Local Anesthetic: 4 mLs Guidance: ultrasound Ultrasound probe size: 4 mHz curvilinear Images were saved electronically. Needle size: 22 G Needle Length: 4.0 inch Approach: posterior Medication Verification: I have personally verified and performed the final check of the medication(s) used in this procedure prior to administration. The following items were included during the verification process for medication(s) administered: drug name, strength, volume, expiration, physical integrity and appearance of the medication(s). Medications administered: 1 mL bupivacaine 0.5 %; 2 mL triamcinolone 40 MG/ML; 4 mL Lidocaine 10 mg/mL; 5 mL Sodium chloride (PF) 0.9 %; 4 mg dexAMETHasone 4 MG/ML Patient tolerance: patient tolerated the procedure well with no immediate complications Comments Medical Decision Making At today's visit I reviewed the history, physical examination, and previous pertinent imaging. We weighed the options of whether or not to proceed with an injection today based off of these findings and discussed alternatives. After this discussion, I felt that the injection was indicated and we elected to proceed. This evaluation and management service was a separate and identifiable service apart from the injection. Pre-Procedure Details The attending physician was present for the entire procedure. Consent: Consent was obtained prior to the procedure after discussion of the risks, benefits and alternatives, and expected outcomes were discussed with the patient. The possibilities of reaction to medication, bleeding, infection, the need for additional procedures, failure to diagnosis a condition, and creating a complication requiring operation were discussed with the patient. The patient concurred with the proposed plan, giving consent. Preparation: Patient was prepped in the usual sterile fashion. The patient was prepped with Chloraprep. Patient counseled on expected outcome and continued treatment and healing process. Patient tolerated the procedure well and was discharged in good condition with post-procedure instructions and anticipatory guidance regarding possible adverse reactions after the procedure including but not limited to infection, injection site flare reaction, allergic reaction. If corticosteroids were used then specifically the patient may develop hyperglycemia, facial flushing, heart palpitations amongst many other side effects associated with corticosteroids. Patient reported 100% pain relief while anaesthetized at left sacroiliac joint. The patient has a year history of pain involving left sacroiliac joint. The diagnosis of pain emanating from the sacroiliac joint has been arrived at with diligent investigation. In the course our recent treatment as well as prior treatment, alternative pain generators and diagnoses have been excluded. This has been accomplished clinically and diagnostically by incorporating information from history, physical exam, imaging and diagnostic guided injection. The patient meets both ISASS and NINA guidelines for minimally invasive SI joint fusion: We have found: Over 6 months of intensive conservative treatment has failed including physical therapy, medications, SI belt, therapeutic injections. 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 100% relief while anesthetized during guided injection to the Left sacroiliac joint on 12/03/2022. 100% relief while anesthetized during guided injection to the Left sacroiliac joint on 03/30/2023. The patient has an absence of generalized pain or disorders. Positive Franki's sign. Positive tenderness to the sacral sulcus on the left side. Positive physical exam for 3 or more provocative maneuvers including thigh thrust, Gaenslen, NIR,compression test, distraction test. Diagnostic imaging reveals degenerative changes involving the sacroiliac joint and no evidence for inflammatory arthropathy is noted. All other diagnoses that could account for the patient's pain have been ruled out. Unfortunately, we have not accomplished long-term pain relief with conservative measures for 6 months or more. We have exhausted conservative measures including activity modification, physical therapy and injection treatments. The patient is expected to continue with pain and disability. The best next step is fusion of the sacroiliac joint, in my opinion. We will now refer to Dr. Thurston for surgical opinion and recommendations. I have reviewed, edited and added to the above note and agree with those findings. Additions if any: While Matthew's left hip is arthritic, she is still responding to intra-articular hip pain (groin pain) from the last hip joint injection. SI is the current main pain generator. Raoul Lundy MD, [facility] Comprehensive Ophthalmologist - [facility] documented in this [facility]05-31-2023 Instructions* Patient Instructions* Morgan Diggs - 03/30/2023 1:40 PM EDT Patient counseled on expected outcome and continued treatment and healing process. Patient tolerated the procedure well and was discharged in good condition with post-procedure instructions and anticipatory guidance regarding possible adverse reactions after the procedure including but not limited to infection, injection site flare reaction, allergic reaction. If corticosteroids were used then specifically the patient may develop hyperglycemia, facial flushing, heart palpitations amongst many other side effects associated with corticosteroids. documented in this [facility]04-25-2023 History of Present illness Narrative* Felix Maguire ATC - 02/22/2023 9:00 AM EDTAssociated Order(s): LOWER EXTREMITY INJECTION Post-Procedure Diagnose(s): Osteoarthritis of both sacroiliac joints; Pain of both sacroiliac joints Referred by: 67 year old female referred by self Chief Complaint Patient presents with Lower Back - Pain Patient arrives for a follow up after left LFCN US guided injection on 02/04/23. She reports that theburning pain has returned to what it was before the injection and she only received 50% pain reliefafter the injection for about two days. Patient states she has a constant stabbing pain at L2-4. She feels the most pain relief has been from the US guided bilateral sacroiliac joint injections last one being from 12/03/22. Location: low back, burning down lateral thighs L>R Quality: burning, stabbing Duration: burning 2 months, low back 2 years NSAIDs? Ibuprofen Analgesics? Percocet Other pain modalities? Cane Physical therapy? After surgery Xrays? XR hips bilateral 10/04/22, XR knees bilateral 08/16/22, XR lumbar spine 06/25/21 MRI? Lumbar spine 11/12/21 Patient activity (i.e. Job, sport, etc.): Daily living. Doesn't do much because of pain. Patient would love to return to gardening, horseback riding, swimming and dance. Treatment performed or prescribed at last visit? Left LFCN injection with US guidance Response to treatment since last visit? Patient received 2 days of 50% pain relief then returned tonormal pain. Current Outpatient Medications: albuterol 108 (90 Base) MCG/ACT Aero Soln inhaler, Inhale 2 puffs every 6 hours as needed for Wheezing., Disp: 1 Inhaler, Rfl: 11 amLODIPine 5 MG tablet, Take 5 mg by mouth daily., Disp: , Rfl: budesonide-formoterol (SYMBICORT) 160-4.5 mcg/puff Aerosol inhaler, Inhale 2 puffs 2 times daily. Rinse mouth after use, Disp: 1 Inhaler, Rfl: 11 Celecoxib 200 MG capsule, Day 1 take 2 capsules po then beginning Day 2 take 1 capsule twice daily,Disp: 30 capsule, Rfl: 0 clonazePAM 1 MG PO TABS, take 1 Tab by mouth at bedtime., Disp: , Rfl: Diclofenac sodium 1 % Gel gel, Apply 2 g topically 4 times daily., Disp: 350 g, Rfl: 0 furOSEmide 20 MG tablet, Take 20 mg by mouth daily., Disp: , Rfl: hydrocodone-acetaminophen 5-500 MG PO TABS, take 1 Tab by mouth every 6 hours as needed for Pain. (Patient not taking: Reported on 06/27/2019), Disp: 60 Tab, Rfl: 0 ipratropium 0.02 % Solution inhalation solution, Take 0.5 mg by nebulization 4 times daily. PRN, Disp: , Rfl: lisinopril 20 MG PO TABS, take 1 Tab by mouth 2 times daily., Disp: , Rfl: Melatonin 5 MG capsule, Take 5 mg by mouth. 1 tablet at night, Disp: , Rfl: montelukast 10 MG Tab tablet, Take 10 mg by mouth daily., Disp: , Rfl: naloxone (Narcan) 4 MG/0.1ML, 1 spray by Nasal route once. [place] into the nose as directed. Call 911. If no response in 2 minutes use a new nasal spray in other nostril. Repeat until help arrives. Ifneeded., Disp: , Rfl: oxyCODONE 5 MG PO TABS, take 1-2 Tabs by mouth every 3 hours as needed (if taking oral medications). (Patient not taking: Reported on 06/10/2022), Disp: 60 Tab, Rfl: 0 oxycodone-acetaminophen 10-325 MG per tablet, Take 1 tablet by mouth. 6 times a day, Disp: , Rfl: ropinirole 1 MG PO TABS, Take 2 tablets by mouth every evening. , Disp: , Rfl: sertraline 100 MG Tab, take 100 mg by mouth daily.., Disp: , Rfl: tiotropium 18 MCG inhalation capsule, Inhale 18 mcg daily., Disp: , Rfl: traZODone 50 MG tablet, Take 50 mg by mouth daily., Disp: , Rfl: Family History Problem Relation Age of Onset Cancer- Other Mother skin Breast Cancer Mother Diabetes Father Heart Disease - Other Father Myocardial Infarction Father Social History Tobacco Use Smoking status: Never Smokeless tobacco: Never Substance Use Topics Alcohol use: Yes Comment: rarely Drug use: Never Past Surgical History: Procedure Laterality Date NECK SURGERY N/A 02/2021 KNEE REPLACEMENT Right 2016 NECK SURGERY 2014 THORACOSCOPY LUNG PLEURA DIAGNOSTIC 12/13/2011 Laterality: N/A; Surgeon: Blu Donaldson MD;; Location: [facility] RESECTION LUNG WEDGE THORACOSCOPIC INITIAL 12/13/2011 Laterality: N/A; Surgeon: Blu Donaldson MD;; Location: [facility] THORACOTOMY EXPLORATION 12/13/2011 Laterality: N/A; Surgeon: Blu Donaldson MD;; Location: [facility] LOBECTOMY LUNG THORACOSCOPIC 12/13/2011 Laterality: N/A; Surgeon: Blu Donaldson MD;; Location: [facility] KNEE ARTHROSCOPY Left 2011 BRONCHOSCOPY FLEXIBLE DIAGNOSTIC 09/27/2011 Laterality: Midline; Surgeon: Blu Donaldson MD; Bronch/ebus Dr donaldson wants to do as first caseon 09/27/11; Location: [facility] ULTRASOUND ENDOBRONCHIAL (EBUS) DURING BRONCHOSCOPY ADD-ON PX 09/27/2011 Laterality: N/A; Surgeon: Blu Donalsdon MD;; Location: [facility] OR BACK SURGERY BLADDER SUSPENSION FOOT SURGERY HIP SURGERY Right HYSTERECTOMY ROTATOR CUFF REPAIR VEIN STRIPPING Left Vitals: 02/22/23 0909 Weight: 82.1 kg (181 lb) Height: 1.676 m (5' 5.98) Constitutional No fevers, chills or sweats, unintentional weight gain or weight loss, night pain, or night sweats except as per HPI. Cardiovascular No recent chest pain or palpitations. No claudication. No new or worsening lower extremity edema except as per HPI. Respiratory No new or worsening shortness of breath, dyspnea on exertion, orthopnea or paroxysmal nocturnal dyspnea except as per HPI. Gastrointestinal No recent heartburn or stomach upset, no history of ulcers except as per HPI. Musculoskeletal No joint pain, stiffness, or weakness except as per HPI. Endocrine No polyphagia, polydypsia, or polyuria. Hematologic No known or recent anemia, no excessive bleeding. Rheumatologic No history or currently active autoimmune or rheumatologic disease except as per HPI. Integumentary No new or relevant rashes or lesions except as per HPI. Neurologic No numbness, tingling, or weakness into her distal extremities except as per HPI. Constitutional Normal No acute distress. Well nourished. Well developed. Head/Face Normal Facial features - Normal. Eyebrows - Normal. Skull - Normal. Hair and scalp - Normal. Eyes Normal General - Right: Normal, Left: Normal. Lids/external - Right: Normal, Left: Normal. Conjunctiva - Right: Normal, Left: Normal. Ears Normal Inspection - Right: Normal, Left: Normal. Pinna - Right: Normal, Left: Normal. Nasopharynx Normal External nose - Normal. Nares - Right: Normal. Nasal Mucosa - Normal. Lips/teeth/gums - Normal. Buccal mucosa - Normal. Neck Exam Normal Inspection - Normal. Range of motion - Normal. Neck Exam Comments Supple. Respiratory Normal Inspection - Normal. Cough - Absent. Effort - Normal. Cardiovascular Normal Heart rate - Regular rate. Vascular Normal Pulses - Radial: Normal, Brachial: Normal, Dorsalis pedis: Normal, Posterior tibial: Normal. Capillary refill - Less than 2 seconds. Skin * Rash - Description: none. Extremity Normal No Edema. No Calf tenderness. Diabetic Foot Screen Normal Pulses - Dorsalis pedis: Normal, Posterior tibial: Normal. Neurological Normal Level of consciousness - Normal. Orientation - Normal. Memory - Normal. Psychiatric Normal No agitation. Appropriate mood and affect. Appropriate affect. Normal insight. Normal judgment. Right hand/wrist Inspection: No erythema, ecchymosis, swelling or deformity. No open wounds. No wasting of the intrinics or thenar/hypothenar eminences. EXCEPT varus deformity of the 3rd phalanx. Palpation: Non-tender to the snuff box, volar pole of the scaphoid, 1st CMC joint, DRUJ, TFCC, radiocarpal joint, proximal or distal carpal row. ROM: Full flexion/extension, supination/pronation, radial and ulnar deviation at the wrist. EXCEPT subluxation of extensor tendon with passive flexion and extension of the 3rd phalanx. Laxity: No laxity appreciated. Strength: Intact and symmetric median, radial and ulnar nerves Sensation: Intact and symmetric median and radial nerves to soft touch. Vascular: Cap refill <3 seconds x 5 digits. Special Maneuvers: Negative carpal tunnel Tinel s, carpal tunnel compression test, Phalen s maneuver, Luther s and Froment s. Negative CMC grind. Lumbar spine Inspection: No erythema, ecchymosis, swelling or deformity. No open wounds. NVID EXCEPT tender to left SI joint. XR bilateral hips with pelvis reviewed from 10/04/22 Notes reviewed from 02/04/23, History obtained from patient. ASSESSMENT and PLAN: 1. Osteoarthritis of both sacroiliac joints 2. Pain of both sacroiliac joints I feel it is the left sacroiliac joint causing most of Matthew's pain however it may be the left hip. We will need to schedule a left sacroiliac joint injection with US guidance. At that time we may refer to Dr. Thurston for sacroiliac joint fusion surgery. We elected to move forward with a left lumbar paraspinal trigger point injection today. I will see her return for this procedure. 3. Status post lumbar spinal fusion Doing well. 4. Meralgia paresthetica of left side She received some pain relief after injection. I feel she will need another US guided injection in the future. We are more focused with left sacroiliac joint pain at this time. 5. Rotator cuff arthropathy of left shoulder She was given Dr. Lujan's phone number and advised to go and consult with him. A referral was placed in September. After the consult, Dr. Lujan and Matthew may have a plan in store for when she is ready to pursue surgery. 6. 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 Gaona for his opinion on brace vs surgery. 7. Primary osteoarthritis of left hip Scheduling a sports left hip US guided injection as she is due and we are identifying main pain generator. Left sacroiliac joint injection is first. Referrals: Dr. Gaona Medications prescribed today: None Follow up plan: Sports US guided left SI joint injection then Sports US guided left hip injection Severity of problem(s): Mild Risk of morbidity or complication from the condition and/or additional testing or treatment: Low LOWER EXTREMITY INJECTION Date/Time: 02/22/2023 9:00 AM Performed by: Felix Maguire ATC Authorized by: Raoul Lundy MD Supporting Documentation Indications: pain and therapeutic Procedure Details: Procedure: trigger point injection Location: spine - Trigger Point Injection Details: Left lumbar paraspinal Needle size: 22 G Number of muscles injected: 1-2 muscle groups Medication Verification: I have personally verified and performed the final check of the medication(s) used in this procedure prior to administration. The following items were included during the verification process for medication(s) administered: drug name, strength, volume, expiration, physical integrity and appearance of the medication(s). Medications administered: 1 mL lidocaine 10 mg/mL; 1 mL bupivacaine 0.5 %; 80 mg triamcinolone 40 MG/ML; 4 mg dexAMETHasone 4 MG/ML Patient tolerance: patient tolerated the procedure well with no immediate complications Comments Medical Decision Making At today's visit I reviewed the history, physical examination, and previous pertinent imaging. We weighed the options of whether or not to proceed with an injection today based off of these findings and discussed alternatives. After this discussion, I felt that the injection was indicated and we elected to proceed. This evaluation and management service was a separate and identifiable service apart from the injection. Pre-Procedure Details The attending physician was present for the entire procedure. Consent: Consent was obtained prior to the procedure after discussion of the risks, benefits and alternatives, and expected outcomes were discussed with the patient. The possibilities of reaction to medication, bleeding, infection, the need for additional procedures, failure to diagnosis a condition, and creating a complication requiring operation were discussed with the patient. The patient concurred with the proposed plan, giving consent. Preparation: Patient was prepped in the usual sterile fashion. The patient was prepped with alcohol. Patient counseled on expected outcome and continued treatment and healing process. Patient tolerated the procedure well and was discharged in good condition with post-procedure instructions and anticipatory guidance regarding possible adverse reactions after the procedure including but not limited to infection, injection site flare reaction, allergic reaction. If corticosteroids were used then specifically the patient may develop hyperglycemia, facial flushing, heart palpitations amongst many other side effects associated with corticosteroids. * Raoul Lundy MD - 02/22/2023 9:00 AM EDT Referred by: 67 year old female referred by self Chief Complaint Patient presents with Lower Back - Pain Patient arrives for a follow up after left LFCN US guided injection on 02/04/23. She reports that theburning pain has returned to what it was before the injection and she only received 50% pain reliefafter the injection for about two days. Patient states she has a constant stabbing pain at L2-4. She feels the most pain relief has been from the US guided bilateral sacroiliac joint injections last one being from 12/03/22. Location: low back, burning down lateral thighs L>R Quality: burning, stabbing Duration: burning 2 months, low back 2 years NSAIDs? Ibuprofen Analgesics? Percocet Other pain modalities? Cane Physical therapy? After surgery Xrays? XR hips bilateral 10/04/22, XR knees bilateral 08/16/22, XR lumbar spine 06/25/21 MRI? Lumbar spine 11/12/21 Patient activity (i.e. Job, sport, etc.): Daily living. Doesn't do much because of pain. Patient would love to return to gardening, horseback riding, swimming and dance. Treatment performed or prescribed at last visit? Left LFCN injection with US guidance Response to treatment since last visit? Patient received 2 days of 50% pain relief then returned tonormal pain. Current Outpatient Medications: albuterol 108 (90 Base) MCG/ACT Aero Soln inhaler, Inhale 2 puffs every 6 hours as needed for Wheezing., Disp: 1 Inhaler, Rfl: 11 amLODIPine 5 MG tablet, Take 5 mg by mouth daily., Disp: , Rfl: budesonide-formoterol (SYMBICORT) 160-4.5 mcg/puff Aerosol inhaler, Inhale 2 puffs 2 times daily. Rinse mouth after use, Disp: 1 Inhaler, Rfl: 11 Celecoxib 200 MG capsule, Day 1 take 2 capsules po then beginning Day 2 take 1 capsule twice daily,Disp: 30 capsule, Rfl: 0 clonazePAM 1 MG PO TABS, take 1 Tab by mouth at bedtime., Disp: , Rfl: Diclofenac sodium 1 % Gel gel, Apply 2 g topically 4 times daily., Disp: 350 g, Rfl: 0 furOSEmide 20 MG tablet, Take 20 mg by mouth daily., Disp: , Rfl: hydrocodone-acetaminophen 5-500 MG PO TABS, take 1 Tab by mouth every 6 hours as needed for Pain. (Patient not taking: Reported on 06/27/2019), Disp: 60 Tab, Rfl: 0 ipratropium 0.02 % Solution inhalation solution, Take 0.5 mg by nebulization 4 times daily. PRN, Disp: , Rfl: lisinopril 20 MG PO TABS, take 1 Tab by mouth 2 times daily., Disp: , Rfl: Melatonin 5 MG capsule, Take 5 mg by mouth. 1 tablet at night, Disp: , Rfl: montelukast 10 MG Tab tablet, Take 10 mg by mouth daily., Disp: , Rfl: naloxone (Narcan) 4 MG/0.1ML, 1 spray by Nasal route once. [place] into the nose as directed. Call 911. If no response in 2 minutes use a new nasal spray in other nostril. Repeat until help arrives. Ifneeded., Disp: , Rfl: oxyCODONE 5 MG PO TABS, take 1-2 Tabs by mouth every 3 hours as needed (if taking oral medications). (Patient not taking: Reported on 06/10/2022), Disp: 60 Tab, Rfl: 0 oxycodone-acetaminophen 10-325 MG per tablet, Take 1 tablet by mouth. 6 times a day, Disp: , Rfl: ropinirole 1 MG PO TABS, Take 2 tablets by mouth every evening. , Disp: , Rfl: sertraline 100 MG Tab, take 100 mg by mouth daily.., Disp: , Rfl: tiotropium 18 MCG inhalation capsule, Inhale 18 mcg daily., Disp: , Rfl: traZODone 50 MG tablet, Take 50 mg by mouth daily., Disp: , Rfl: Family History Problem Relation Age of Onset Cancer- Other Mother skin Breast Cancer Mother Diabetes Father Heart Disease - Other Father Myocardial Infarction Father Social History Tobacco Use Smoking status: Never Smokeless tobacco: Never Substance Use Topics Alcohol use: Yes Comment: rarely Drug use: Never Past Surgical History: Procedure Laterality Date NECK SURGERY N/A 02/2021 KNEE REPLACEMENT Right 2016 NECK SURGERY 2014 THORACOSCOPY LUNG PLEURA DIAGNOSTIC 12/13/2011 Laterality: N/A; Surgeon: Blu Donaldson MD;; Location: [facility] OR RESECTION LUNG WEDGE THORACOSCOPIC INITIAL 12/13/2011 Laterality: N/A; Surgeon: Blu Donaldson MD;; Location: [facility] OR THORACOTOMY EXPLORATION 12/13/2011 Laterality: N/A; Surgeon: Blu Donaldson MD;; Location: [facility] OR LOBECTOMY LUNG THORACOSCOPIC 12/13/2011 Laterality: N/A; Surgeon: Blu Donaldson MD;; Location: [facility] OR KNEE ARTHROSCOPY Left 2011 BRONCHOSCOPY FLEXIBLE DIAGNOSTIC 09/27/2011 Laterality: Midline; Surgeon: Blu Donaldson MD; Bronch/ebus Dr donaldson wants to do as first caseon 09/27/11; Location: [facility] OR ULTRASOUND ENDOBRONCHIAL (EBUS) DURING BRONCHOSCOPY ADD-ON PX 09/27/2011 Laterality: N/A; Surgeon: Blu Donaldson MD;; Location: [facility] OR BACK SURGERY BLADDER SUSPENSION FOOT SURGERY HIP SURGERY Right HYSTERECTOMY ROTATOR CUFF REPAIR VEIN STRIPPING Left Vitals: 02/22/23 0909 Weight: 82.1 kg (181 lb) Height: 1.676 m (5' 5.98) Constitutional No fevers, chills or sweats, unintentional weight gain or weight loss, night pain, or night sweats except as per HPI. Cardiovascular No recent chest pain or palpitations. No claudication. No new or worsening lower extremity edema except as per HPI. Respiratory No new or worsening shortness of breath, dyspnea on exertion, orthopnea or paroxysmal nocturnal dyspnea except as per HPI. Gastrointestinal No recent heartburn or stomach upset, no history of ulcers except as per HPI. Musculoskeletal No joint pain, stiffness, or weakness except as per HPI. Endocrine No polyphagia, polydypsia, or polyuria. Hematologic No known or recent anemia, no excessive bleeding. Rheumatologic No history or currently active autoimmune or rheumatologic disease except as per HPI. Integumentary No new or relevant rashes or lesions except as per HPI. Neurologic No numbness, tingling, or weakness into her distal extremities except as per HPI. Constitutional Normal No acute distress. Well nourished. Well developed. Head/Face Normal Facial features - Normal. Eyebrows - Normal. Skull - Normal. Hair and scalp - Normal. Eyes Normal General - Right: Normal, Left: Normal. Lids/external - Right: Normal, Left: Normal. Conjunctiva - Right: Normal, Left: Normal. Ears Normal Inspection - Right: Normal, Left: Normal. Pinna - Right: Normal, Left: Normal. Nasopharynx Normal External nose - Normal. Nares - Right: Normal. Nasal Mucosa - Normal. Lips/teeth/gums - Normal. Buccal mucosa - Normal. Neck Exam Normal Inspection - Normal. Range of motion - Normal. Neck Exam Comments Supple. Respiratory Normal Inspection - Normal. Cough - Absent. Effort - Normal. Cardiovascular Normal Heart rate - Regular rate. Vascular Normal Pulses - Radial: Normal, Brachial: Normal, Dorsalis pedis: Normal, Posterior tibial: Normal. Capillary refill - Less than 2 seconds. Skin * Rash - Description: none. Extremity Normal No Edema. No Calf tenderness. Diabetic Foot Screen Normal Pulses - Dorsalis pedis: Normal, Posterior tibial: Normal. Neurological Normal Level of consciousness - Normal. Orientation - Normal. Memory - Normal. Psychiatric Normal No agitation. Appropriate mood and affect. Appropriate affect. Normal insight. Normal judgment. Right hand/wrist Inspection: No erythema, ecchymosis, swelling or deformity. No open wounds. No wasting of the intrinics or thenar/hypothenar eminences. EXCEPT varus deformity of the 3rd phalanx. Palpation: Non-tender to the snuff box, volar pole of the scaphoid, 1st CMC joint, DRUJ, TFCC, radiocarpal joint, proximal or distal carpal row. ROM: Full flexion/extension, supination/pronation, radial and ulnar deviation at the wrist. EXCEPT subluxation of extensor tendon with passive flexion and extension of the 3rd phalanx. Laxity: No laxity appreciated. Strength: Intact and symmetric median, radial and ulnar nerves Sensation: Intact and symmetric median and radial nerves to soft touch. Vascular: Cap refill <3 seconds x 5 digits. Special Maneuvers: Negative carpal tunnel Tinel s, carpal tunnel compression test, Phalen s maneuver, Luther s and Froment s. Negative CMC grind. Lumbar spine Inspection: No erythema, ecchymosis, swelling or deformity. No open wounds. NVID EXCEPT tender to left SI joint. XR bilateral hips with pelvis reviewed from 10/04/22 Notes reviewed from 02/04/23, History obtained from patient. ASSESSMENT and PLAN: 1. Osteoarthritis of both sacroiliac joints 2. Pain of both sacroiliac joints I feel it is the left sacroiliac joint causing most of Matthew's pain however it may be the left hip. We will need to schedule a left sacroiliac joint injection with US guidance. At that time we may refer to Dr. Thurston for sacroiliac joint fusion surgery. We elected to move forward with a left lumbar paraspinal trigger point injection today. I will see her return for this procedure. 3. Status post lumbar spinal fusion Doing well. 4. Meralgia paresthetica of left side She received some pain relief after injection. I feel she will need another US guided injection in the future. We are more focused with left sacroiliac joint pain at this time. 5. Rotator cuff arthropathy of left shoulder She was given Dr. Lujan's phone number and advised to go and consult with him. A referral was placed in September. After the consult, Dr. Lujan and Matthew may have a plan in store for when she is ready to pursue surgery. 6. 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 Gaona for his opinion on brace vs surgery. 7. Primary osteoarthritis of left hip Scheduling a sports left hip US guided injection as she is due and we are identifying main pain generator. Left sacroiliac joint injection is first. Referrals: Dr. Gaona Medications prescribed today: None Follow up plan: Sports US guided left SI joint injection then Sports US guided left hip injection Severity of problem(s): Mild Risk of morbidity or complication from the condition and/or additional testing or treatment: Low LOWER EXTREMITY INJECTION Date/Time: 02/22/2023 9:00 AM Performed by: Felix Maguire ATC Authorized by: Raoul Lundy MD Supporting Documentation Indications: pain and therapeutic Procedure Details: Procedure: trigger point injection Location: spine - Trigger Point Injection Details: Left lumbar paraspinal Needle size: 22 G Number of muscles injected: 1-2 muscle groups Medication Verification: I have personally verified and performed the final check of the medication(s) used in this procedure prior to administration. The following items were included during the verification process for medication(s) administered: drug name, strength, volume, expiration, physical integrity and appearance of the medication(s). Medications administered: 1 mL lidocaine 10 mg/mL; 1 mL bupivacaine 0.5 %; 80 mg triamcinolone 40 MG/ML; 4 mg dexAMETHasone 4 MG/ML Patient tolerance: patient tolerated the procedure well with no immediate complications Comments Medical Decision Making At today's visit I reviewed the history, physical examination, and previous pertinent imaging. We weighed the options of whether or not to proceed with an injection today based off of these findings and discussed alternatives. After this discussion, I felt that the injection was indicated and we elected to proceed. This evaluation and management service was a separate and identifiable service apart from the injection. Pre-Procedure Details The attending physician was present for the entire procedure. Consent: Consent was obtained prior to the procedure after discussion of the risks, benefits and alternatives, and expected outcomes were discussed with the patient. The possibilities of reaction to medication, bleeding, infection, the need for additional procedures, failure to diagnosis a condition, and creating a complication requiring operation were discussed with the patient. The patient concurred with the proposed plan, giving consent. Preparation: Patient was prepped in the usual sterile fashion. The patient was prepped with alcohol. Patient counseled on expected outcome and continued treatment and healing process. Patient tolerated the procedure well and was discharged in good condition with post-procedure instructions and anticipatory guidance regarding possible adverse reactions after the procedure including but not limited to infection, injection site flare reaction, allergic reaction. If corticosteroids were used then specifically the patient may develop hyperglycemia, facial flushing, heart palpitations amongst many other side effects associated with corticosteroids. I have reviewed, edited and added to the above note and agree with those findings. Additions if any: Raoul Lundy MD, [facility] Comprehensive Ophthalmologist - [facility] documented in this [facility]04-25-2023 Instructions* Patient Instructions* Felix Maguire ATC - 02/22/2023 9:00 AM EDT Likely considering surgery for- 1st left sacroiliac joint fusion 2nd left lateral femoral cutaneous nerve release 3rd left shoulder replacement 4th (eventually) left hip replacement however it is responding to conservative treatment as this time. documented in this [facility]04-07-2023 History of Present illness Narrative* Mica eTjeda - 02/04/2023 12:40 PM EDT The patient is in today for her bilateral SI joints. She states her pain is burning and radiates down her L leg and is worse in her L SI joint. She states the RFA was rejected by her insurance. She states her pain is a 5/10 in the office and a 10/10 when she is active. The patient was prescribed Celebrex by Subhash on 02/02/23. * Felix Maguire ATC - 02/04/2023 12:40 PM EDTAssociated Order(s): NERVE INJECTION Post-Procedure Diagnose(s): Osteoarthritis of both sacroiliac joints Date/Time: 02/04/2023 12:40 PM Performed by: Felix Maguire ATC Authorized by: Raoul Lundy MD NERVE INJECTION Indications: pain and therapeutic Guidance: ultrasound Ultrasound probe size: 4 mHz curvilinear Images were saved electronically. Needle size: 22 G Needle length (in): 4.0 inch. Body area: lower extremity Nerve: lateral femoral cutaneous Laterality: left Lower Extremity Region Injected: hip Patient position: supine Medication Verification: I have personally verified and performed the final check of the medication(s) used in this procedure prior to administration. The following items were included during the verification process for medication(s) administered: drug name, strength, volume, expiration, physical integrity and appearance of the medication(s). Local Anesthetic: bupivacaine 0.5% and lidocaine 1% Total Local Anesthetic: 4 mLs Patient tolerance: patient tolerated the procedure well with no immediate complications Comments: Medical Decision Making At today's visit I reviewed the history, physical examination, and previous pertinent imaging. We weighed the options of whether or not to proceed with an injection today based off of these findings and discussed alternatives. After this discussion, I felt that the injection was indicated and we elected to proceed. This evaluation and management service was a separate and identifiable service apart from the injection. Pre-Procedure Details The attending physician was present for the entire procedure. Consent: Consent was obtained prior to the procedure after discussion of the risks, benefits and alternatives, and expected outcomes werediscussed with the patient. The possibilities of reaction to medication, bleeding, infection, the need for additional procedures, failure to diagnosis a condition, nerve injury, and creating a complication requiring operation were discussed with the patient. The patient concurred with the proposed plan, giving consent. Preparation: Patient was prepped in the usual sterile fashion. The patient was prepped with Chloraprep. Patient counseled on expected outcome and continued treatment and healing process. Patient tolerated the procedure well and was discharged in good condition with post-procedure instructions and anticipatory guidance regarding possible adverse reactions after the procedure including but not limited to infection, injection site flare reaction, allergic reaction. If corticosteroids were used then specifically the patient may develop hyperglycemia, facial flushing, heart palpitations amongst many other side effects associated with corticosteroids. Patient reports 50% pain relief (at best) while anesthestized. * Raoul Lundy MD - 02/04/2023 12:40 PM EDT The patient is in today for her bilateral SI joints. She states her pain is burning and radiates down her L leg and is worse in her L SI joint. She states the RFA was rejected by her insurance. She states her pain is a 5/10 in the office and a 10/10 when she is active. The patient was prescribed Celebrex by Subhash on 02/02/23. Date/Time: 02/04/2023 12:40 PM Performed by: Felix Maguire ATC Authorized by: Raoul Lundy MD NERVE INJECTION Indications: pain and therapeutic Guidance: ultrasound Ultrasound probe size: 4 mHz curvilinear Images were saved electronically. Needle size: 22 G Needle length (in): 4.0 inch. Body area: lower extremity Nerve: lateral femoral cutaneous Laterality: left Lower Extremity Region Injected: hip Patient position: supine Medication Verification: I have personally verified and performed the final check of the medication(s) used in this procedure prior to administration. The following items were included during the verification process for medication(s) administered: drug name, strength, volume, expiration, physical integrity and appearance of the medication(s). Local Anesthetic: bupivacaine 0.5% and lidocaine 1% Total Local Anesthetic: 4 mLs Patient tolerance: patient tolerated the procedure well with no immediate complications Comments: Medical Decision Making At today's visit I reviewed the history, physical examination, and previous pertinent imaging. We weighed the options of whether or not to proceed with an injection today based off of these findings and discussed alternatives. After this discussion, I felt that the injection was indicated and we elected to proceed. This evaluation and management service was a separate and identifiable service apart from the injection. Pre-Procedure Details The attending physician was present for the entire procedure. Consent: Consent was obtained prior to the procedure after discussion of the risks, benefits and alternatives, and expected outcomes werediscussed with the patient. The possibilities of reaction to medication, bleeding, infection, the need for additional procedures, failure to diagnosis a condition, nerve injury, and creating a complication requiring operation were discussed with the patient. The patient concurred with the proposed plan, giving consent. Preparation: Patient was prepped in the usual sterile fashion. The patient was prepped with Chloraprep. Patient counseled on expected outcome and continued treatment and healing process. Patient tolerated the procedure well and was discharged in good condition with post-procedure instructions and anticipatory guidance regarding possible adverse reactions after the procedure including but not limited to infection, injection site flare reaction, allergic reaction. If corticosteroids were used then specifically the patient may develop hyperglycemia, facial flushing, heart palpitations amongst many other side effects associated with corticosteroids. Patient reports 50% pain relief (at best) while anesthestized. I have reviewed, edited and added to the above note and agree with those findings. Additions if any: Raoul Lundy MD, [facility] Comprehensive Ophthalmologist - [facility] documented in this encounterKenneth [place]ille [id number] History of Present illness Narrative* Ely Willard LPN - 02/02/2023 9:00 AM EDT Referred by: self dr lundy last visit 12/27/22 Chief Complaint Patient presents with Lower Back - Pain, Follow-up Left Forearm - Pain 1. Rotator cuff arthropathy of left shoulder Injection provided today for pain relief, we will monitor her response 2. Osteoarthritis of both sacroiliac joints - AMB REFERRAL TO PAIN CLINIC 3. Pain of both sacroiliac joints - AMB REFERRAL TO PAIN CLINIC Matthew had brief relief from injection to the SI joint, she is not interested in surgery at this time. RFA may be a good option for her. Referred to Dr. Gallego for consideration for SI joint RFA. Referrals: Dr. Gallego Medications prescribed today: None Follow up plan: Sports bilateral sacroiliac joint injection with US guidance #2- 45937, J8540, J3490 Severity of problem(s): Mild Risk of morbidity or complication from the condition and/or additional testing or treatment: Low * Flor Salvador - 02/02/2023 9:00 AM EDT Patient presents today for severe pain on her left hip and leg The problem started 12/03/2022 The problem was caused by unknown The problem associated symptoms are described as Burning sharp pain The problem is aggrevated by Activity, movement and positioning The problem is relieved by oxycodone, ice, rest The problem previous interventions include steroid injections The response to previous treatment was really well, just not a very long time The problem has also been addressed by Dr. Lundy Chief Complaint Patient presents with Lower Back - Pain, Follow-up Left Hip - Pain Left Leg - Pain The patient is in today for her R SI joint, L hip, and L leg . She is here for her R SI superior and inferior US guided injection. She states she agrees to receive the injection today. She states herL left leg hurts sometimes and experiences groin pain. She was prescribed Diclofenac gel but she did not realize that. She states her pain is a 3/10 in the office and her pain while walking or vacuuming her pain is an 9/10. She states her pain is stabbing. Location: R SI joint, L hip, L leg Quality: stabbing Duration: L leg and hip- 1 month and R SI joint- years NSAIDs? no Analgesics? Oxcycodone Other pain modalities? Ice, pillow, gel for knees Physical therapy? Previously Chiropractic? Previously Injections? Previously Xrays? 09/16/2021- lumbar spine MRI? 11/12/21-lumbar spine CT? no Treatment performed or prescribed at last visit? Xrays, exercise challenge JOSE JUAN's, Diclofenac gel on07/27/22 Response to treatment since last visit? She received and you reviewed her results and she has not used the Diclofenac gel but was informed that the prescription was called in and she is going to pickit up. * Yolanda Perea APRN-AIR CONDITIONING UNIT TESTER - 02/02/2023 9:00 AM EDT Chief Complaint Patient presents with Left Hip - Pain Left Leg - Pain HPI: The patient is a pleasant 67 y.o. year old female here for back pain: She has a long standing history of low back pain with sacroiliacitis.. She follows with Dr Lundy. She states that she had to miss her last injection due to Covid and she has gotten to the point the she cannot sleep due to the pain. She has a history of restless leg and is on Requip as well. She states that lying flat aggravates the back and the Left leg more than the Right. Dr Lundy has identified that she may be a candidate for RFA and has referred her to Pain Management but she does not have an appointment scheduled She states that although the Left shoulder is not bothering her very much she thought that after last visit, with injection, she was to get and MRI. She states that she still has trouble with ROM andthe shoulder gets stuck and doesn't want to give. She is also concerned about her fingers on both hands. She states that about a month ago while driving she was white knuckling it and ever since then her fingers are off to the side and the knuckles swollen. Her PCP prescribes Oxy 10/325mg 6 times a day. She states I just sit and stare at the clock until I can take it again. She denies falling due to the increased pain. Past Medical History: Diagnosis Date Congestive heart failure, unspecified COPD (chronic obstructive pulmonary disease) Diabetes Eczema Essential hypertension, benign Fibromyalgia GERD (gastroesophageal reflux disease) Lung nodules Migraines RLS (restless legs syndrome) Sleep apnea Social History Tobacco Use Smoking status: Never Smokeless tobacco: Never Substance Use Topics Alcohol use: Yes Comment: rarely Drug use: Never Past Surgical History: Procedure Laterality Date NECK SURGERY N/A 02/2021 KNEE REPLACEMENT Right 2016 NECK SURGERY 2014 THORACOSCOPY LUNG PLEURA DIAGNOSTIC 12/13/2011 Laterality: N/A; Surgeon: Blu Donaldson MD;; Location: [facility] RESECTION LUNG WEDGE THORACOSCOPIC INITIAL 12/13/2011 Laterality: N/A; Surgeon: Blu Donaldson MD;; Location: [facility] OR THORACOTOMY EXPLORATION 12/13/2011 Laterality: N/A; Surgeon: Blu Donaldson MD;; Location: [facility] OR LOBECTOMY LUNG THORACOSCOPIC 12/13/2011 Laterality: N/A; Surgeon: Blu Donaldson MD;; Location: [facility] OR KNEE ARTHROSCOPY Left 2011 BRONCHOSCOPY FLEXIBLE DIAGNOSTIC 09/27/2011 Laterality: Midline; Surgeon: Blu Donaldson MD; Bronch/ebus Dr donaldson wants to do as first caseon 09/27/11; Location: [facility] MA[facility] OR ULTRASOUND ENDOBRONCHIAL (EBUS) DURING BRONCHOSCOPY ADD-ON PX 09/27/2011 Laterality: N/A; Surgeon: Blu Donaldson MD;; Location: [facility] OR BACK SURGERY BLADDER SUSPENSION FOOT SURGERY HIP SURGERY Right HYSTERECTOMY ROTATOR CUFF REPAIR VEIN STRIPPING Left Family History Problem Relation Age of Onset Cancer- Other Mother skin Breast Cancer Mother Diabetes Father Heart Disease - Other Father Myocardial Infarction Father Current Outpatient Medications Medication Sig Dispense Refill albuterol 108 (90 Base) MCG/ACT Aero Soln inhaler Inhale 2 puffs every 6 hours as needed for Wheezing. 1 Inhaler 11 amLODIPine 5 MG tablet Take 5 mg by mouth daily. budesonide-formoterol (SYMBICORT) 160-4.5 mcg/puff Aerosol inhaler Inhale 2 puffs 2 times daily. Rinse mouth after use 1 Inhaler 11 Celecoxib 200 MG capsule Day 1 take 2 capsules po then beginning Day 2 take 1 capsule twice daily 30 capsule 0 clonazePAM 1 MG PO TABS take 1 Tab by mouth at bedtime. Diclofenac Sodium 1 % Gel gel Apply 2 g topically 4 times daily. 350 g 0 furOSEmide 20 MG tablet Take 20 mg by mouth daily. hydrocodone-acetaminophen 5-500 MG PO TABS take 1 Tab by mouth every 6 hours as needed for Pain. (Patient not taking: Reported on 06/27/2019) 60 Tab 0 ipratropium 0.02 % Solution inhalation solution Take 0.5 mg by nebulization 4 times daily. PRN lisinopril 20 MG PO TABS take 1 Tab by mouth 2 times daily. Melatonin 5 MG capsule Take 5 mg by mouth. 1 tablet at night montelukast 10 MG Tab tablet Take 10 mg by mouth daily. naloxone (Narcan) 4 MG/0.1ML 1 spray by Nasal route once. [place] into the nose as directed. Call 911. If no response in 2 minutes use a new nasal spray in other nostril. Repeat until help arrives. If needed. oxyCODONE 5 MG PO TABS take 1-2 Tabs by mouth every 3 hours as needed (if taking oral medications).(Patient not taking: Reported on 06/10/2022) 60 Tab 0 oxycodone-acetaminophen 10-325 MG per tablet Take 1 tablet by mouth. 6 times a day ropinirole 1 MG PO TABS Take 2 tablets by mouth every evening. sertraline 100 MG Tab take 100 mg by mouth daily.. tiotropium 18 MCG inhalation capsule Inhale 18 mcg daily. traZODone 50 MG tablet Take 50 mg by mouth daily. No current facility-administered medications for this visit. PMH: Past medical history, family history, social history, allergies and medications have been reviewed and are documented in the electronic record. ROS: Review of Systems System Neg/Pos Details Constitutional Negative Chills, fatigue, fever and night sweats. ENMT Negative Dysphagia, hearing loss, nasal congestion and vertigo. Eyes Negative Blurred vision and vision loss. Respiratory Negative Chest pain, cough, dyspnea, known TB exposure and wheezing. Cardio Negative Chest pain, cyanosis, heart murmur, irregular heartbeat/palpitations and syncope. Neuro Negative Difficulty walking, headache, paresthesia, poor coordination and seizures. Psych Negative Anxiety, depression and insomnia. MS/Integumentary Negative Except as noted in HPI and chief complaint and muscle weakness. Elias/Lymph Negative Bruising and easy bleeding. Vitals: 02/02/23 0905 BP: (!) 134/99 Pulse: 102 Resp: 16 SpO2: 93% Weight: 82.1 kg (181 lb) Height: 1.676 m (5' 5.98) Physical Exam: Exam Findings Details Constitutional Normal No acute distress. Well developed. Head/Face Comments normal cephallic/ Atraumatic, negative spurling's maneuver Head/Face Normal Facial features - Normal. Skull - Normal. Hair and scalp - Normal. Respiratory Normal Cough - Absent. Effort - Normal. Psychiatric Normal Orientation - Oriented to time, place, person & situation. Additional Physical Exam Findings: Pleasant wth emotional distress/crying Bilateral hand with swan neck deformity of long through small fingers with PIPJ swelling Bilateral lumbar paraspinal muscle tenderness to palpation. Well healed lumbar surgical scar. Bilateral lower extremity strength equal with neurovascular intact Review of Images: If available, I have personally reviewed image(s) from additional outside providers as well those competed in office LABS If available, I have personally reviewed lab(s) from additional outside providers as well those competed in office CURRENT MEDICAL Patient Active Problem List Diagnosis Lung nodules Lung nodules Obesity Left arm pain Neck pain Hoarseness Balance disorder Presbycusis of both ears Tinnitus aurium, bilateral Assessment: ICD-10-CM 1. Segmental and somatic dysfunction of sacral region M99.04 2. Pain of both sacroiliac joints M53.3 3. [place]-neck deformity of finger of both hands M20.031 M20.032 Plan: 1. Add Celebrex 200mg BID for acute pain continuing current Oxy 10/325mg 2. Increase Sertraline to 100mg at HS as she is only taking 50mg currently to help with emotions and sleep 3. Follow up with Dr Lundy as scheduled for SI injection 02/04 4. See Pain Management as referred 5. XR bilateral hands at future visit with consideration for CRP, Sed Rate, SIERRA and Rheumatology referral We discussed the natural history of this problem and usual treatments. We discussed possible treatment options including conservative, aggressive, invasive and non-invasive. These options were explained in detail. The patient and/or guardian agreed with the above assessment and plan. Differential diagnoses were considered including but not limited to degenerative change, internal derangement, fracture and any other severely limiting injury. I have performed all essential components of the history, and physical exam. I have confirmed the diagnosis and developed a plan of care at this visit. I have reviewed the note following the visit and have add edits as appropriate to my evaluation and plan of care. Yolanda Perea CNP documented in this encounterSelect [facility] History of Present illness Narrative* Pop Ovalle PA-C - 01/16/2023 3:16 PM EDT Images from the original note were not included. [facility] Brief Evaluation Form Patient Name: [facility] Location: Matthew Perez [address] [place] [address], [address] [facility] [id number] Date Of : Date Of Visit: 1955 01/16/2023 MRN# Provider: [id number] Pop Ovalle PA-C SUBJECTIVE Matthew Perez presented to [facility] with Headache (Right middle finger wont straighten out all the way states if she rubs and touch hand to hard its painful. Pt states she was sleep walking and fell down some stairs and now has a spot on her forehead that's tender and causes headaches on and off. Happened 2 months ago ) HPI: 67-year-old female presents for evaluation of headaches that have been coming and going over the past 2 months since falling, striking her forehead. Patient states that she had an indentation in her forehead that is still present, she had a bloody nose and she had some significant bruising around her eye. Patient states that the headaches have been intermittent and patient denies any fevers nausea or vomiting. Allergies: Duloxetine, Nsaids (non-steroidal anti-inflammatory drug), Ibuprofen, Lyrica [pregabalin], and Metformin OBJECTIVE BP 127/74 Pulse 87 Temp 98.2 F (36.8 C) Resp 16 Wt 80.7 kg (178 lb) LMP (LMP Unknown) SpO2 93% Comment: PT HAS COPD. BMI 28.73 kg/m Pertinent PE Findings: Vital signs as above ASSESSMENT 1. Pain of finger of right hand Ambulatory referral to Orthopedics 2. Nonintractable episodic headache, unspecified headache type Medical Decision Making: Patient presents with a complaint of headaches from a fall that have been ongoing for the past 2 months. I believe the patient needs an CT of her head to evaluate for possible bleeds. Although patient denies nausea or vomiting, mental status changes, I cannot properly evaluate headache from fall inthe urgent care. PLAN Patient is being recommended to go to [facility] for further evaluation and treatment. Patient will transport via Private Auto (Self). Transfer Center Contacted: yes Orders Placed This Visit Orders Placed This Encounter Procedures Ambulatory referral to Orthopedics Medication List At End Of Visit Current Outpatient Medications Medication Sig Dispense Refill albuterol (PROVENTIL) 2.5 mg /3 mL (0.083 %) nebulizer solution Take 3 mL (2.5 mg total) by nebulization daily as needed Reasons: COPD. amLODIPine (NORVASC) 5 MG tablet Take 1 (one) tablet (5 mg total) by mouth daily . Anoro Ellipta 62.5-25 mcg/actuation DsDv Inhale 2 puffs daily . budesonide-formoteroL (SYMBICORT) 80-4.5 mcg/actuation inhaler 1 (one) puff . caffeine 200 mg Take 1 (one) tablet (200 mg total) by mouth daily . clonazePAM (KLONOPIN) 1 MG tablet Take 1 (one) tablet (1 mg total) by mouth 2 (two) times a day as needed . darifenacin (ENABLEX) 15 mg 24 hr tablet Take 1 (one) tablet (15 mg total) by mouth daily . 30 tablet 11 lisinopril (PRINIVIL,ZESTRIL) 20 MG tablet Take 1 (one) tablet (20 mg total) by mouth every eveningReasons: high blood pressure. melatonin 5 mg Tab Take 1 (one) tablet (5 mg total) by mouth nightly . meloxicam (MOBIC) 7.5 MG tablet Take 1 (one) tablet (7.5 mg total) by mouth daily . mirabegron (MYRBETRIQ) 25 mg Tb24 Take by mouth . montelukast (SINGULAIR) 10 mg tablet Take 1 (one) tablet (10 mg total) by mouth daily . NARCAN 4 mg/actuation [address] Administer 1 spray into one nostril for known or suspected opioid overdose. If patient worsens or does not respond, may repeat in 2-3 minutes. . 1 Package 0 oxyCODONE-acetaminophen (PERCOCET) 10-325 mg per tablet Take 2 (two) tablets by mouth 3 (three) times a day as needed . rOPINIRole (REQUIP) 2 MG tablet Take 1 (one) tablet (2 mg total) by mouth 3 (three) times a day Reasons: restless legs syndrome, an extreme discomfort in the calf muscles when sitting or lying down. sertraline (ZOLOFT) 50 MG tablet Take 1 (one) tablet (50 mg total) by mouth daily . traZODone (DESYREL) 50 MG tablet Take 1 (one) tablet (50 mg total) by mouth nightly . trospium (SANCTURA) 20 mg tablet Take 1 (one) tablet (20 mg total) by mouth 2 (two) times a day . 180 tablet 3 albuterol (Ventolin HFA) 90 mcg/actuation inhaler Inhale 1 (one) puff every 6 (six) hours as neededfor wheezing . 1 Inhaler 4 beclomethasone (QVAR) 40 mcg/actuation inhaler Inhale 2 (two) puffs 2 (two) times a day Rinse mouth. 1 Inhaler 5 ipratropium-albuteroL (DUO-NEB) 0.5-2.5 mg/3 ml nebulizer Take 3 mL by nebulization every 6 (six) hours as needed for wheezing or shortness of breath . 360 mL 0 SUMAtriptan (IMITREX) 100 MG tablet Take 1 (one) tablet (100 mg total) by mouth as needed for migraine. 6 tablet 0 No current facility-administered medications for this visit. *Transfer location subject to change based on patient condition during transport at EMS discretion. documented in this [id number] History of Present illness Narrative* Mica Tejeda - 12/27/2022 9:10 AM EST Referred by: self Chief Complaint Patient presents with Lower Back - Pain, Follow-up Left Forearm - Pain The patient is in today for her L shoulder and her bilateral SI joints. She states her bilateral SIjoint pain is sharp and aching. She states her bilateral legs are bothering her as well from her hips down to her calves. She states she does have varicose veins. At her last visit on 12/03/22 She was given bilateral SI joint injections. She states her bilateral SI joint pain came back that night or the day after because she walked around a lot at the store without a cart. She did see a doctor at [facility] for her L shoulder as well. She states her pain in her bilateral SI joints is a 4/10 and a 7/10 as well as her bilateral legs. She states her shoulder pain is sharp. She states she tries to to move her arm as much so she does not have pain in the office or when active. Location: L shoulder and bilateral SI joints Quality: Sharp,aching Shoulder:sharp Duration: Years NSAIDs? No Analgesics? Oxycodone Other pain modalities? Ice,pillow,gel, stay awake caffine Physical therapy? Previously Xrays? 09/16/2021 lumbar and L shoulder 11/24/22 MRI? 11/12/21 lumbar Patient activity (i.e. Job, sport, etc.): N/a Treatment performed at last visit: 12/03/22 bilateral SI joint injections Response to treatment: She states her bilateral SI joint pain came back that night or the day afterbecause she walked around a lot at the store without a cart. She reported 100% relief while anesthetized. She did see a doctor at [facility] for her L shoulder as well. Current Outpatient Medications: albuterol 108 (90 Base) MCG/ACT Aero Soln inhaler, Inhale 2 puffs every 6 hours as needed for Wheezing., Disp: 1 Inhaler, Rfl: 11 amLODIPine 5 MG tablet, Take 5 mg by mouth daily., Disp: , Rfl: budesonide-formoterol (SYMBICORT) 160-4.5 mcg/puff Aerosol inhaler, Inhale 2 puffs 2 times daily. Rinse mouth after use, Disp: 1 Inhaler, Rfl: 11 clonazePAM 1 MG PO TABS, take 1 Tab by mouth at bedtime., Disp: , Rfl: Diclofenac Sodium 1 % Gel gel, Apply 2 g topically 4 times daily., Disp: 350 g, Rfl: 0 furOSEmide 20 MG tablet, Take 20 mg by mouth daily., Disp: , Rfl: hydrocodone-acetaminophen 5-500 MG PO TABS, take 1 Tab by mouth every 6 hours as needed for Pain. (Patient not taking: Reported on 06/27/2019), Disp: 60 Tab, Rfl: 0 ipratropium 0.02 % Solution inhalation solution, Take 0.5 mg by nebulization 4 times daily. PRN, Disp: , Rfl: lisinopril 20 MG PO TABS, take 1 Tab by mouth 2 times daily., Disp: , Rfl: Melatonin 5 MG capsule, Take 5 mg by mouth. 1 tablet at night, Disp: , Rfl: montelukast 10 MG Tab tablet, Take 10 mg by mouth daily., Disp: , Rfl: naloxone (Narcan) 4 MG/0.1ML, 1 spray by Nasal route once. [place] into the nose as directed. Call 911. If no response in 2 minutes use a new nasal spray in other nostril. Repeat until help arrives. Ifneeded., Disp: , Rfl: oxyCODONE 5 MG PO TABS, take 1-2 Tabs by mouth every 3 hours as needed (if taking oral medications). (Patient not taking: Reported on 06/10/2022), Disp: 60 Tab, Rfl: 0 oxycodone-acetaminophen 10-325 MG per tablet, Take 1 tablet by mouth. 6 times a day, Disp: , Rfl: ropinirole 1 MG PO TABS, Take 2 tablets by mouth every evening. , Disp: , Rfl: sertraline 100 MG Tab, take 100 mg by mouth daily.., Disp: , Rfl: tiotropium 18 MCG inhalation capsule, Inhale 18 mcg daily., Disp: , Rfl: traZODone 50 MG tablet, Take 50 mg by mouth daily., Disp: , Rfl: Family History Problem Relation Age of Onset Cancer- Other Mother skin Breast Cancer Mother Diabetes Father Heart Disease - Other Father Myocardial Infarction Father Social History Tobacco Use Smoking status: Never Smokeless tobacco: Never Substance Use Topics Alcohol use: Yes Comment: rarely Drug use: Never Past Surgical History: Procedure Laterality Date NECK SURGERY N/A 02/2021 KNEE REPLACEMENT Right 2016 NECK SURGERY 2014 THORACOSCOPY LUNG PLEURA DIAGNOSTIC 12/13/2011 Laterality: N/A; Surgeon: Blu Donaldson MD;; Location: [facility] RESECTION LUNG WEDGE THORACOSCOPIC INITIAL 12/13/2011 Laterality: N/A; Surgeon: Blu Donaldson MD;; Location: [facility] THORACOTOMY EXPLORATION 12/13/2011 Laterality: N/A; Surgeon: Blu Donaldson MD;; Location: [facility] LOBECTOMY LUNG THORACOSCOPIC 12/13/2011 Laterality: N/A; Surgeon: Blu Donaldson MD;; Location: [facility] KNEE ARTHROSCOPY Left 2011 BRONCHOSCOPY FLEXIBLE DIAGNOSTIC 09/27/2011 Laterality: Midline; Surgeon: Blu Donaldson MD; Bronch/ebus Dr donaldson wants to do as first caseon 09/27/11; Location: [facility] MAIN OR ULTRASOUND ENDOBRONCHIAL (EBUS) DURING BRONCHOSCOPY ADD-ON PX 09/27/2011 Laterality: N/A; Surgeon: Blu Donaldson MD;; Location: [facility] MAIN OR BACK SURGERY BLADDER SUSPENSION FOOT SURGERY HIP SURGERY Right HYSTERECTOMY ROTATOR CUFF REPAIR VEIN STRIPPING Left Ht 1.676 m (5' 6) Wt 82.1 kg (181 lb) BMI 29.21 kg/m Smoking Status Never Constitutional No fevers, chills or sweats, unintentional weight gain or weight loss, night pain, or night sweats except as per HPI. Cardiovascular No recent chest pain or palpitations. No claudication. No new or worsening lower extremity edema except as per HPI. Respiratory No new or worsening shortness of breath, dyspnea on exertion, orthopnea or paroxysmal nocturnal dyspnea except as per HPI. Gastrointestinal No recent heartburn or stomach upset, no history of ulcers except as per HPI. Musculoskeletal No joint pain, stiffness, or weakness except as per HPI. Endocrine No polyphagia, polydypsia, or polyuria. Hematologic No known or recent anemia, no excessive bleeding. Rheumatologic No history or currently active autoimmune or rheumatologic disease except as per HPI. Integumentary No new or relevant rashes or lesions except as per HPI. Neurologic No numbness, tingling, or weakness into her distal extremities except as per HPI. Constitutional Normal No acute distress. Well nourished. Well developed. Head/Face Normal Facial features - Normal. Eyebrows - Normal. Skull - Normal. Hair and scalp - Normal. Eyes Normal General - Right: Normal, Left: Normal. Lids/external - Right: Normal, Left: Normal. Conjunctiva - Right: Normal, Left: Normal. Ears Normal Inspection - Right: Normal, Left: Normal. Pinna - Right: Normal, Left: Normal. Nasopharynx Normal External nose - Normal. Nares - Right: Normal. Nasal Mucosa - Normal. Lips/teeth/gums - Normal. Buccal mucosa - Normal. Neck Exam Normal Inspection - Normal. Range of motion - Normal. Neck Exam Comments Supple. Respiratory Normal Inspection - Normal. Cough - Absent. Effort - Normal. Cardiovascular Normal Heart rate - Regular rate. Vascular Normal Pulses - Radial: Normal, Brachial: Normal, Dorsalis pedis: Normal, Posterior tibial: Normal. Capillary refill - Less than 2 seconds. Skin * Rash - Description: none. Extremity Normal No Edema. No Calf tenderness. Diabetic Foot Screen Normal Pulses - Dorsalis pedis: Normal, Posterior tibial: Normal. Neurological Normal Level of consciousness - Normal. Orientation - Normal. Memory - Normal. Psychiatric Normal No agitation. Appropriate mood and affect. Appropriate affect. Normal insight. Normal judgment. * Felix Maguire ATC - 12/27/2022 9:10 AM ESTAssociated Order(s): LARGE JOINT/BURSA INJECTION AND/OR ASPIRATION: L subacromial bursa Post-Procedure Diagnose(s): Osteoarthritis of both sacroiliac joints; Pain of both sacroiliac joints Left shoulder Inspection: No erythema, ecchymosis, swelling or deformity. No open wounds. NVID Lumbar spine Inspection: No erythema, ecchymosis, swelling or deformity. No open wounds. NVID Notes reviewed from 12/03/22 History obtained from patient. ASSESSMENT and PLAN: 1. Rotator cuff arthropathy of left shoulder Injection provided today for pain relief, we will monitor her response 2. Osteoarthritis of both sacroiliac joints - AMB REFERRAL TO PAIN CLINIC 3. Pain of both sacroiliac joints - AMB REFERRAL TO PAIN CLINIC Matthew had brief relief from injection to the SI joint, she is not interested in surgery at this time. RFA may be a good option for her. Referred to Dr. Gallego for consideration for SI joint RFA. Referrals: Dr. Gallego Medications prescribed today: None Follow up plan: Sports bilateral sacroiliac joint injection with US guidance #2- 32917, J8540, J3490 Severity of problem(s): Mild Risk of morbidity or complication from the condition and/or additional testing or treatment: Low LARGE JOINT/BURSA INJECTION AND/OR ASPIRATION: L subacromial bursa Date/Time: 12/27/2022 9:10 AM Supporting Documentation Indications: pain Procedure Details: Location: shoulder - L subacromial bursa Needle size: 22 G Approach: posterior Medication Verification: I have personally verified and performed the final check of the medication(s) used in this procedure prior to administration. The following items were included during the verification process for medication(s) administered: drug name, strength, volume, expiration, physical integrity and appearance of the medication(s). Medications administered: 2 mL triamcinolone 40 MG/ML; 1 mL Lidocaine 10 mg/mL; 1 mL bupivacaine 0.5 %; 4 mg dexAMETHasone 4 MG/ML Patient tolerance: patient tolerated the procedure well with no immediate complications Pre-Procedure Details The attending physician was present for the entire procedure. Consent: Consent was obtained prior to the procedure after discussion of the risks, benefits and alternatives, and expected outcomes were discussed with the patient. The possibilities of reaction to medication, bleeding, infection, the need for additional procedures, failure to diagnosis a condition, and creating a complication requiring operation were discussed with the patient. The patient concurred with the proposed plan, giving consent. Preparation: Patient was prepped in the usual sterile fashion. The patient was prepped with alcohol. Medical Decision Making At today's visit I reviewed the history, physical examination, and previous pertinent imaging. We weighed the options of whether or not to proceed with an injection today based off of these findings and discussed alternatives. After this discussion, I felt that the injection was indicated and we elected to proceed. This evaluation and management service was a separate and identifiable service apart from the injection. Patient counseled on expected outcome and continued treatment and healing process. Patient tolerated the procedure well and was discharged in good condition with post-procedure instructions and anticipatory guidance regarding possible adverse reactions after the procedure including but not limited to infection, injection site flare reaction, allergic reaction. If corticosteroids were used then specifically the patient may develop hyperglycemia, facial flushing, heart palpitations amongst many other side effects associated with corticosteroids. * Raoul Lundy MD - 12/27/2022 9:10 AM EST Referred by: self Chief Complaint Patient presents with Lower Back - Pain, Follow-up Left Forearm - Pain The patient is in today for her L shoulder and her bilateral SI joints. She states her bilateral SIjoint pain is sharp and aching. She states her bilateral legs are bothering her as well from her hips down to her calves. She states she does have varicose veins. At her last visit on 12/03/22 She was given bilateral SI joint injections. She states her bilateral SI joint pain came back that night or the day after because she walked around a lot at the store without a cart. She did see a doctor at [facility] for her L shoulder as well. She states her pain in her bilateral SI joints is a 4/10 and a 7/10 as well as her bilateral legs. She states her shoulder pain is sharp. She states she tries to to move her arm as much so she does not have pain in the office or when active. Location: L shoulder and bilateral SI joints Quality: Sharp,aching Shoulder:sharp Duration: Years NSAIDs? No Analgesics? Oxycodone Other pain modalities? Ice,pillow,gel, stay awake caffine Physical therapy? Previously Xrays? 09/16/2021 lumbar and L shoulder 11/24/22 MRI? 11/12/21 lumbar Patient activity (i.e. Job, sport, etc.): N/a Treatment performed at last visit: 12/03/22 bilateral SI joint injections Response to treatment: She states her bilateral SI joint pain came back that night or the day afterbecause she walked around a lot at the store without a cart. She reported 100% relief while anesthetized. She did see a doctor at [facility] for her L shoulder as well. Current Outpatient Medications: albuterol 108 (90 Base) MCG/ACT Aero Soln inhaler, Inhale 2 puffs every 6 hours as needed for Wheezing., Disp: 1 Inhaler, Rfl: 11 amLODIPine 5 MG tablet, Take 5 mg by mouth daily., Disp: , Rfl: budesonide-formoterol (SYMBICORT) 160-4.5 mcg/puff Aerosol inhaler, Inhale 2 puffs 2 times daily. Rinse mouth after use, Disp: 1 Inhaler, Rfl: 11 clonazePAM 1 MG PO TABS, take 1 Tab by mouth at bedtime., Disp: , Rfl: Diclofenac Sodium 1 % Gel gel, Apply 2 g topically 4 times daily., Disp: 350 g, Rfl: 0 furOSEmide 20 MG tablet, Take 20 mg by mouth daily., Disp: , Rfl: hydrocodone-acetaminophen 5-500 MG PO TABS, take 1 Tab by mouth every 6 hours as needed for Pain. (Patient not taking: Reported on 06/27/2019), Disp: 60 Tab, Rfl: 0 ipratropium 0.02 % Solution inhalation solution, Take 0.5 mg by nebulization 4 times daily. PRN, Disp: , Rfl: lisinopril 20 MG PO TABS, take 1 Tab by mouth 2 times daily., Disp: , Rfl: Melatonin 5 MG capsule, Take 5 mg by mouth. 1 tablet at night, Disp: , Rfl: montelukast 10 MG Tab tablet, Take 10 mg by mouth daily., Disp: , Rfl: naloxone (Narcan) 4 MG/0.1ML, 1 spray by Nasal route once. [place] into the nose as directed. Call 911. If no response in 2 minutes use a new nasal spray in other nostril. Repeat until help arrives. Ifneeded., Disp: , Rfl: oxyCODONE 5 MG PO TABS, take 1-2 Tabs by mouth every 3 hours as needed (if taking oral medications). (Patient not taking: Reported on 06/10/2022), Disp: 60 Tab, Rfl: 0 oxycodone-acetaminophen 10-325 MG per tablet, Take 1 tablet by mouth. 6 times a day, Disp: , Rfl: ropinirole 1 MG PO TABS, Take 2 tablets by mouth every evening. , Disp: , Rfl: sertraline 100 MG Tab, take 100 mg by mouth daily.., Disp: , Rfl: tiotropium 18 MCG inhalation capsule, Inhale 18 mcg daily., Disp: , Rfl: traZODone 50 MG tablet, Take 50 mg by mouth daily., Disp: , Rfl: Family History Problem Relation Age of Onset Cancer- Other Mother skin Breast Cancer Mother Diabetes Father Heart Disease - Other Father Myocardial Infarction Father Social History Tobacco Use Smoking status: Never Smokeless tobacco: Never Substance Use Topics Alcohol use: Yes Comment: rarely Drug use: Never Past Surgical History: Procedure Laterality Date NECK SURGERY N/A 02/2021 KNEE REPLACEMENT Right 2016 NECK SURGERY 2014 THORACOSCOPY LUNG PLEURA DIAGNOSTIC 12/13/2011 Laterality: N/A; Surgeon: Blu Donaldson MD;; Location: [facility] OR RESECTION LUNG WEDGE THORACOSCOPIC INITIAL 12/13/2011 Laterality: N/A; Surgeon: Blu Donaldson MD;; Location: [facility] OR THORACOTOMY EXPLORATION 12/13/2011 Laterality: N/A; Surgeon: Blu Donaldson MD;; Location: [facility] OR LOBECTOMY LUNG THORACOSCOPIC 12/13/2011 Laterality: N/A; Surgeon: Blu Donaldson MD;; Location: [facility] OR KNEE ARTHROSCOPY Left 2011 BRONCHOSCOPY FLEXIBLE DIAGNOSTIC 09/27/2011 Laterality: Midline; Surgeon: Blu Donaldson MD; Bronch/ebus Dr donaldson wants to do as first caseon 09/27/11; Location: [facility] OR ULTRASOUND ENDOBRONCHIAL (EBUS) DURING BRONCHOSCOPY ADD-ON PX 09/27/2011 Laterality: N/A; Surgeon: Blu Donaldson MD;; Location: [facility] OR BACK SURGERY BLADDER SUSPENSION FOOT SURGERY HIP SURGERY Right HYSTERECTOMY ROTATOR CUFF REPAIR VEIN STRIPPING Left Ht 1.676 m (5' 6) Wt 82.1 kg (181 lb) BMI 29.21 kg/m Smoking Status Never Constitutional No fevers, chills or sweats, unintentional weight gain or weight loss, night pain, or night sweats except as per HPI. Cardiovascular No recent chest pain or palpitations. No claudication. No new or worsening lower extremity edema except as per HPI. Respiratory No new or worsening shortness of breath, dyspnea on exertion, orthopnea or paroxysmal nocturnal dyspnea except as per HPI. Gastrointestinal No recent heartburn or stomach upset, no history of ulcers except as per HPI. Musculoskeletal No joint pain, stiffness, or weakness except as per HPI. Endocrine No polyphagia, polydypsia, or polyuria. Hematologic No known or recent anemia, no excessive bleeding. Rheumatologic No history or currently active autoimmune or rheumatologic disease except as per HPI. Integumentary No new or relevant rashes or lesions except as per HPI. Neurologic No numbness, tingling, or weakness into her distal extremities except as per HPI. Constitutional Normal No acute distress. Well nourished. Well developed. Head/Face Normal Facial features - Normal. Eyebrows - Normal. Skull - Normal. Hair and scalp - Normal. Eyes Normal General - Right: Normal, Left: Normal. Lids/external - Right: Normal, Left: Normal. Conjunctiva - Right: Normal, Left: Normal. Ears Normal Inspection - Right: Normal, Left: Normal. Pinna - Right: Normal, Left: Normal. Nasopharynx Normal External nose - Normal. Nares - Right: Normal. Nasal Mucosa - Normal. Lips/teeth/gums - Normal. Buccal mucosa - Normal. Neck Exam Normal Inspection - Normal. Range of motion - Normal. Neck Exam Comments Supple. Respiratory Normal Inspection - Normal. Cough - Absent. Effort - Normal. Cardiovascular Normal Heart rate - Regular rate. Vascular Normal Pulses - Radial: Normal, Brachial: Normal, Dorsalis pedis: Normal, Posterior tibial: Normal. Capillary refill - Less than 2 seconds. Skin * Rash - Description: none. Extremity Normal No Edema. No Calf tenderness. Diabetic Foot Screen Normal Pulses - Dorsalis pedis: Normal, Posterior tibial: Normal. Neurological Normal Level of consciousness - Normal. Orientation - Normal. Memory - Normal. Psychiatric Normal No agitation. Appropriate mood and affect. Appropriate affect. Normal insight. Normal judgment. Left shoulder Inspection: No erythema, ecchymosis, swelling or deformity. No open wounds. NVID Lumbar spine Inspection: No erythema, ecchymosis, swelling or deformity. No open wounds. NVID Notes reviewed from 12/03/22 History obtained from patient. ASSESSMENT and PLAN: 1. Rotator cuff arthropathy of left shoulder Injection provided today for pain relief, we will monitor her response 2. Osteoarthritis of both sacroiliac joints - AMB REFERRAL TO PAIN CLINIC 3. Pain of both sacroiliac joints - AMB REFERRAL TO PAIN CLINIC Matthew had brief relief from injection to the SI joint, she is not interested in surgery at this time. RFA may be a good option for her. Referred to Dr. Gallego for consideration for SI joint RFA. Referrals: Dr. Gallego Medications prescribed today: None Follow up plan: Sports bilateral sacroiliac joint injection with US guidance #2- 06030, J8569, J3490 Severity of problem(s): Mild Risk of morbidity or complication from the condition and/or additional testing or treatment: Low LARGE JOINT/BURSA INJECTION AND/OR ASPIRATION: L subacromial bursa Date/Time: 12/27/2022 9:10 AM Supporting Documentation Indications: pain Procedure Details: Location: shoulder - L subacromial bursa Needle size: 22 G Approach: posterior Medication Verification: I have personally verified and performed the final check of the medication(s) used in this procedure prior to administration. The following items were included during the verification process for medication(s) administered: drug name, strength, volume, expiration, physical integrity and appearance of the medication(s). Medications administered: 2 mL triamcinolone 40 MG/ML; 1 mL Lidocaine 10 mg/mL; 1 mL bupivacaine 0.5 %; 4 mg dexAMETHasone 4 MG/ML Patient tolerance: patient tolerated the procedure well with no immediate complications Pre-Procedure Details The attending physician was present for the entire procedure. Consent: Consent was obtained prior to the procedure after discussion of the risks, benefits and alternatives, and expected outcomes were discussed with the patient. The possibilities of reaction to medication, bleeding, infection, the need for additional procedures, failure to diagnosis a condition, and creating a complication requiring operation were discussed with the patient. The patient concurred with the proposed plan, giving consent. Preparation: Patient was prepped in the usual sterile fashion. The patient was prepped with alcohol. Medical Decision Making At today's visit I reviewed the history, physical examination, and previous pertinent imaging. We weighed the options of whether or not to proceed with an injection today based off of these findings and discussed alternatives. After this discussion, I felt that the injection was indicated and we elected to proceed. This evaluation and management service was a separate and identifiable service apart from the injection. Patient counseled on expected outcome and continued treatment and healing process. Patient tolerated the procedure well and was discharged in good condition with post-procedure instructions and anticipatory guidance regarding possible adverse reactions after the procedure including but not limited to infection, injection site flare reaction, allergic reaction. If corticosteroids were used then specifically the patient may develop hyperglycemia, facial flushing, heart palpitations amongst many other side effects associated with corticosteroids. I have reviewed, edited and added to the above note and agree with those findings. Additions if any: Raoul Lundy MD, [facility] Comprehensive Ophthalmologist - [facility] documented in this encounterSelect Medical [facility] History of Present illness Narrative* Morgan Diggs - 12/03/2022 2:00 PM EST Referred by: Self Chief Complaint Patient presents with Lower Back - Follow-up, Joint Injection HPI 67 year old female comes in today for lower back pain and follow up with possible injection. Patient states her pain is described as sharp and aching. Patient rates her pain as 7/10 at rest and 9/10 while active. At patient last visit on 10/04/2022 left hip injection referral to Dr Thurston, Dr Lujan, scheduled4-6 weeks possible US guided bilateral sacroiliac joint injections. Patient states that since her last visit overall she her back is getting worse, left hip is gettingbetter. Left shoulder is a new pain Location: Lower Back Quality: Sharp,aching Duration: Years NSAIDs? No Analgesics? Oxycodone 6 a day Other pain modalities? Ice,pillow,gel, stay awake caffine Physical therapy? Previously Xrays? 09/16/2021 lumbar MRI? 11/12/21 lumbar Patient activity (i.e. Job, sport, etc.): N/a Treatment performed or prescribed at last visit? 10/04/2022 left hip injection referral to Dr Thurston, Dr Lujan, scheduled 4-6 weeks possible US guided bilateral sacroiliac joint injections. Response to treatment since last visit? Patient states that since her last visit overall she her back is getting worse, left hip is getting better. Left shoulder is a new pain Current Outpatient Medications: albuterol 108 (90 Base) MCG/ACT Aero Soln inhaler, Inhale 2 puffs every 6 hours as needed for Wheezing., Disp: 1 Inhaler, Rfl: 11 amLODIPine 5 MG tablet, Take 5 mg by mouth daily., Disp: , Rfl: budesonide-formoterol (SYMBICORT) 160-4.5 mcg/puff Aerosol inhaler, Inhale 2 puffs 2 times daily. Rinse mouth after use, Disp: 1 Inhaler, Rfl: 11 clonazePAM 1 MG PO TABS, take 1 Tab by mouth at bedtime., Disp: , Rfl: Diclofenac Sodium 1 % Gel gel, Apply 2 g topically 4 times daily., Disp: 350 g, Rfl: 0 furOSEmide 20 MG tablet, Take 20 mg by mouth daily., Disp: , Rfl: hydrocodone-acetaminophen 5-500 MG PO TABS, take 1 Tab by mouth every 6 hours as needed for Pain. (Patient not taking: Reported on 06/27/2019), Disp: 60 Tab, Rfl: 0 ipratropium 0.02 % Solution inhalation solution, Take 0.5 mg by nebulization 4 times daily. PRN, Disp: , Rfl: lisinopril 20 MG PO TABS, take 1 Tab by mouth 2 times daily., Disp: , Rfl: Melatonin 5 MG capsule, Take 5 mg by mouth. 1 tablet at night, Disp: , Rfl: montelukast 10 MG Tab tablet, Take 10 mg by mouth daily., Disp: , Rfl: naloxone (Narcan) 4 MG/0.1ML, 1 spray by Nasal route once. [place] into the nose as directed. Call 911. If no response in 2 minutes use a new nasal spray in other nostril. Repeat until help arrives. Ifneeded., Disp: , Rfl: oxyCODONE 5 MG PO TABS, take 1-2 Tabs by mouth every 3 hours as needed (if taking oral medications). (Patient not taking: Reported on 06/10/2022), Disp: 60 Tab, Rfl: 0 oxycodone-acetaminophen 10-325 MG per tablet, Take 1 tablet by mouth. 6 times a day, Disp: , Rfl: ropinirole 1 MG PO TABS, Take 2 tablets by mouth every evening. , Disp: , Rfl: sertraline 100 MG Tab, take 100 mg by mouth daily.., Disp: , Rfl: tiotropium 18 MCG inhalation capsule, Inhale 18 mcg daily., Disp: , Rfl: traZODone 50 MG tablet, Take 50 mg by mouth daily., Disp: , Rfl: Family History Problem Relation Age of Onset Cancer- Other Mother skin Breast Cancer Mother Diabetes Father Heart Disease - Other Father Myocardial Infarction Father Social History Tobacco Use Smoking status: Never Smokeless tobacco: Never Substance Use Topics Alcohol use: Yes Comment: rarely Drug use: Never Past Surgical History: Procedure Laterality Date NECK SURGERY N/A 02/2021 KNEE REPLACEMENT Right 2016 NECK SURGERY 2014 THORACOSCOPY LUNG PLEURA DIAGNOSTIC 12/13/2011 Laterality: N/A; Surgeon: Blu Donaldson MD;; Location: [facility] OR RESECTION LUNG WEDGE THORACOSCOPIC INITIAL 12/13/2011 Laterality: N/A; Surgeon: Blu Donaldson MD;; Location: [facility] OR THORACOTOMY EXPLORATION 12/13/2011 Laterality: N/A; Surgeon: Blu Donaldson MD;; Location: [facility] OR LOBECTOMY LUNG THORACOSCOPIC 12/13/2011 Laterality: N/A; Surgeon: Blu Donaldson MD;; Location: [facility] OR KNEE ARTHROSCOPY Left 2011 BRONCHOSCOPY FLEXIBLE DIAGNOSTIC 09/27/2011 Laterality: Midline; Surgeon: Blu Donaldson MD; Bronch/ebus Dr donaldson wants to do as first caseon 09/27/11; Location: [facility] OR ULTRASOUND ENDOBRONCHIAL (EBUS) DURING BRONCHOSCOPY ADD-ON PX 09/27/2011 Laterality: N/A; Surgeon: Blu Donaldson MD;; Location: [facility] OR BACK SURGERY BLADDER SUSPENSION FOOT SURGERY HIP SURGERY Right HYSTERECTOMY ROTATOR CUFF REPAIR VEIN STRIPPING Left Vitals: 12/03/22 1359 Weight: 82.1 kg (181 lb) Height: 1.676 m (5' 6) Constitutional No fevers, chills or sweats, unintentional weight gain or weight loss, night pain, or night sweats except as per HPI. Cardiovascular No recent chest pain or palpitations. No claudication. No new or worsening lower extremity edema except as per HPI. Respiratory No new or worsening shortness of breath, dyspnea on exertion, orthopnea or paroxysmal nocturnal dyspnea except as per HPI. Gastrointestinal No recent heartburn or stomach upset, no history of ulcers except as per HPI. Musculoskeletal No joint pain, stiffness, or weakness except as per HPI. Endocrine No polyphagia, polydypsia, or polyuria. Hematologic No known or recent anemia, no excessive bleeding. Rheumatologic No history or currently active autoimmune or rheumatologic disease except as per HPI. Integumentary No new or relevant rashes or lesions except as per HPI. Neurologic No numbness, tingling, or weakness into her distal extremities except as per HPI. Constitutional Normal No acute distress. Well nourished. Well developed. Head/Face Normal Facial features - Normal. Eyebrows - Normal. Skull - Normal. Hair and scalp - Normal. Eyes Normal General - Right: Normal, Left: Normal. Lids/external - Right: Normal, Left: Normal. Conjunctiva - Right: Normal, Left: Normal. Ears Normal Inspection - Right: Normal, Left: Normal. Pinna - Right: Normal, Left: Normal. Nasopharynx Normal External nose - Normal. Nares - Right: Normal. Nasal Mucosa - Normal. Lips/teeth/gums - Normal. Buccal mucosa - Normal. Neck Exam Normal Inspection - Normal. Range of motion - Normal. Neck Exam Comments Supple. Respiratory Normal Inspection - Normal. Cough - Absent. Effort - Normal. Cardiovascular Normal Heart rate - Regular rate. Vascular Normal Pulses - Radial: Normal, Brachial: Normal, Dorsalis pedis: Normal, Posterior tibial: Normal. Capillary refill - Less than 2 seconds. Skin * Rash - Description: none. Extremity Normal No Edema. No Calf tenderness. Diabetic Foot Screen Normal Pulses - Dorsalis pedis: Normal, Posterior tibial: Normal. Neurological Normal Level of consciousness - Normal. Orientation - Normal. Memory - Normal. Psychiatric Normal No agitation. Appropriate mood and affect. Appropriate affect. Normal insight. Normal judgment. * Felix Maguire [facility] - 12/03/2022 2:00 PM ESTAssociated Order(s): LARGE JOINT/BURSA INJECTION AND/OR ASPIRATION Post-Procedure Diagnose(s): Osteoarthritis of both sacroiliac joints; Pain of both sacroiliac joints Lumbar spine Inspection: No erythema, ecchymosis, swelling or deformity. No open wounds. NVID Notes reviewed from 12/03/22 History obtained from patient. ASSESSMENT and PLAN: 1. Osteoarthritis of both sacroiliac joints - US IMAGING FOR ORTHO; Future 2. Pain of both sacroiliac joints - US IMAGING FOR ORTHO; Future We elected to move forward with an injection to the bilateral sacroiliac joint today using the US. I would like to see Matthew return in 3-4 weeks to verify she has responded well. 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 We weighed the options of whether or not to proceed with an injection today based off of these findings and discussed alternatives. After this discussion, I felt that the injection was indicated and we elected to proceed. This evaluation and management service was a separate and identifiable service apart from the injection. Patient counseled on expected outcome and continued treatment and healing process. Patient tolerated the procedure well and was discharged in good condition with post-procedure instructions and anticipatory guidance regarding possible adverse reactions after the procedure including but not limited to infection, injection site flare reaction, allergic reaction. If corticosteroids were used then specifically the patient may develop hyperglycemia, facial flushing, heart palpitations amongst many other side effects associated with corticosteroids. LARGE JOINT/BURSA INJECTION AND/OR ASPIRATION Date/Time: 12/03/2022 2:00 PM Supporting Documentation Indications: pain and osteoarthritis Procedure Details: Location: sacroiliac - bilateral sacroiliac joint Local Anesthetic: lidocaine 1% and bupivacaine 0.5% Total Local Anesthetic: 4 mLs Guidance: ultrasound Ultrasound probe size: 4 mHz curvilinear Images were saved electronically. Needle size: 22 G Needle Length: 4.0 inch Approach: posterior Medication Verification: I have personally verified and performed the final check of the medication(s) used in this procedure prior to administration. The following items were included during the verification process for medication(s) administered: drug name, strength, volume, expiration, physical integrity and appearance of the medication(s). Medications (Right): 4 mL lidocaine 10 mg/mL; 1 mL bupivacaine 0.5 %; 5 mL sodium chloride (PF) 0.9 %; 2 mL triamcinolone 40 MG/ML; 4 mg dexAMETHasone 4 MG/ML Medications (Left): 5 mL sodium chloride (PF) 0.9 %; 4 mL lidocaine 10 mg/mL; 1 mL bupivacaine 0.5 %; 2 mL triamcinolone 40 MG/ML; 4 mg dexAMETHasone 4 MG/ML Patient tolerance: patient tolerated the procedure well with no immediate complications Consent: Consent was obtained prior to the procedure after discussion of the risks, benefits and alternatives, and expected outcomes were discussed with the patient. The possibilities of reaction to medication, bleeding, infection, the need for additional procedures, failure to diagnosis a condition, and creating a complication requiring operation were discussed with the patient. The patient concurred with the proposed plan, giving consent. Preparation: Patient was prepped in the usual sterile fashion. The patient was prepped with Chloraprep. Medical Decision Making At today's visit I reviewed the history, physical examination, and previous pertinent imaging. We weighed the options of whether or not to proceed with an injection today based off of these findings and discussed alternatives. After this discussion, I felt that the injection was indicated and we elected to proceed. This evaluation and management service was a separate and identifiable service apart from the injection. Patient counseled on expected outcome and continued treatment and healing process. Patient tolerated the procedure well and was discharged in good condition with post-procedure instructions and anticipatory guidance regarding possible adverse reactions after the procedure including but not limited to infection, injection site flare reaction, allergic reaction. If corticosteroids were used then specifically the patient may develop hyperglycemia, facial flushing, heart palpitations amongst many other side effects associated with corticosteroids. Patient reports 100% pain relief while anesthestized. * Raoul Lundy MD - 12/03/2022 2:00 PM EST Referred by: Self Chief Complaint Patient presents with Lower Back - Follow-up, Joint Injection HPI 67 year old female comes in today for lower back pain and follow up with possible injection. Patient states her pain is described as sharp and aching. Patient rates her pain as 7/10 at rest and 9/10 while active. At patient last visit on 10/04/2022 left hip injection referral to Dr Thurston, Dr Lujan, scheduled4-6 weeks possible US guided bilateral sacroiliac joint injections. Patient states that since her last visit overall she her back is getting worse, left hip is gettingbetter. Left shoulder is a new pain Location: Lower Back Quality: Sharp,aching Duration: Years NSAIDs? No Analgesics? Oxycodone 6 a day Other pain modalities? Ice,pillow,gel, stay awake caffine Physical therapy? Previously Xrays? 09/16/2021 lumbar MRI? 11/12/21 lumbar Patient activity (i.e. Job, sport, etc.): N/a Treatment performed or prescribed at last visit? 10/04/2022 left hip injection referral to Dr Thurston, Dr Lujan, scheduled 4-6 weeks possible US guided bilateral sacroiliac joint injections. Response to treatment since last visit? Patient states that since her last visit overall she her back is getting worse, left hip is getting better. Left shoulder is a new pain Current Outpatient Medications: albuterol 108 (90 Base) MCG/ACT Aero Soln inhaler, Inhale 2 puffs every 6 hours as needed for Wheezing., Disp: 1 Inhaler, Rfl: 11 amLODIPine 5 MG tablet, Take 5 mg by mouth daily., Disp: , Rfl: budesonide-formoterol (SYMBICORT) 160-4.5 mcg/puff Aerosol inhaler, Inhale 2 puffs 2 times daily. Rinse mouth after use, Disp: 1 Inhaler, Rfl: 11 clonazePAM 1 MG PO TABS, take 1 Tab by mouth at bedtime., Disp: , Rfl: Diclofenac Sodium 1 % Gel gel, Apply 2 g topically 4 times daily., Disp: 350 g, Rfl: 0 furOSEmide 20 MG tablet, Take 20 mg by mouth daily., Disp: , Rfl: hydrocodone-acetaminophen 5-500 MG PO TABS, take 1 Tab by mouth every 6 hours as needed for Pain. (Patient not taking: Reported on 06/27/2019), Disp: 60 Tab, Rfl: 0 ipratropium 0.02 % Solution inhalation solution, Take 0.5 mg by nebulization 4 times daily. PRN, Disp: , Rfl: lisinopril 20 MG PO TABS, take 1 Tab by mouth 2 times daily., Disp: , Rfl: Melatonin 5 MG capsule, Take 5 mg by mouth. 1 tablet at night, Disp: , Rfl: montelukast 10 MG Tab tablet, Take 10 mg by mouth daily., Disp: , Rfl: naloxone (Narcan) 4 MG/0.1ML, 1 spray by Nasal route once. [place] into the nose as directed. Call 911. If no response in 2 minutes use a new nasal spray in other nostril. Repeat until help arrives. Ifneeded., Disp: , Rfl: oxyCODONE 5 MG PO TABS, take 1-2 Tabs by mouth every 3 hours as needed (if taking oral medications). (Patient not taking: Reported on 06/10/2022), Disp: 60 Tab, Rfl: 0 oxycodone-acetaminophen 10-325 MG per tablet, Take 1 tablet by mouth. 6 times a day, Disp: , Rfl: ropinirole 1 MG PO TABS, Take 2 tablets by mouth every evening. , Disp: , Rfl: sertraline 100 MG Tab, take 100 mg by mouth daily.., Disp: , Rfl: tiotropium 18 MCG inhalation capsule, Inhale 18 mcg daily., Disp: , Rfl: traZODone 50 MG tablet, Take 50 mg by mouth daily., Disp: , Rfl: Family History Problem Relation Age of Onset Cancer- Other Mother skin Breast Cancer Mother Diabetes Father Heart Disease - Other Father Myocardial Infarction Father Social History Tobacco Use Smoking status: Never Smokeless tobacco: Never Substance Use Topics Alcohol use: Yes Comment: rarely Drug use: Never Past Surgical History: Procedure Laterality Date NECK SURGERY N/A 02/2021 KNEE REPLACEMENT Right 2016 NECK SURGERY 2014 THORACOSCOPY LUNG PLEURA DIAGNOSTIC 12/13/2011 Laterality: N/A; Surgeon: Blu Donaldson MD;; Location: [facility] OR RESECTION LUNG WEDGE THORACOSCOPIC INITIAL 12/13/2011 Laterality: N/A; Surgeon: Blu Donaldson MD;; Location: [facility] MA[facility] OR THORACOTOMY EXPLORATION 12/13/2011 Laterality: N/A; Surgeon: Blu Donaldson MD;; Location: [facility] OR LOBECTOMY LUNG THORACOSCOPIC 12/13/2011 Laterality: N/A; Surgeon: Blu Donaldson MD;; Location: [facility] OR KNEE ARTHROSCOPY Left 2011 BRONCHOSCOPY FLEXIBLE DIAGNOSTIC 09/27/2011 Laterality: Midline; Surgeon: Blu Donaldson MD; Bronch/ebus Dr donaldson wants to do as first caseon 09/27/11; Location: [facility] ISBELL OR ULTRASOUND ENDOBRONCHIAL (EBUS) DURING BRONCHOSCOPY ADD-ON PX 09/27/2011 Laterality: N/A; Surgeon: Blu Donaldson MD;; Location: [facility] OR BACK SURGERY BLADDER SUSPENSION FOOT SURGERY HIP SURGERY Right HYSTERECTOMY ROTATOR CUFF REPAIR VEIN STRIPPING Left Vitals: 12/03/22 1359 Weight: 82.1 kg (181 lb) Height: 1.676 m (5' 6) Constitutional No fevers, chills or sweats, unintentional weight gain or weight loss, night pain, or night sweats except as per HPI. Cardiovascular No recent chest pain or palpitations. No claudication. No new or worsening lower extremity edema except as per HPI. Respiratory No new or worsening shortness of breath, dyspnea on exertion, orthopnea or paroxysmal nocturnal dyspnea except as per HPI. Gastrointestinal No recent heartburn or stomach upset, no history of ulcers except as per HPI. Musculoskeletal No joint pain, stiffness, or weakness except as per HPI. Endocrine No polyphagia, polydypsia, or polyuria. Hematologic No known or recent anemia, no excessive bleeding. Rheumatologic No history or currently active autoimmune or rheumatologic disease except as per HPI. Integumentary No new or relevant rashes or lesions except as per HPI. Neurologic No numbness, tingling, or weakness into her distal extremities except as per HPI. Constitutional Normal No acute distress. Well nourished. Well developed. Head/Face Normal Facial features - Normal. Eyebrows - Normal. Skull - Normal. Hair and scalp - Normal. Eyes Normal General - Right: Normal, Left: Normal. Lids/external - Right: Normal, Left: Normal. Conjunctiva - Right: Normal, Left: Normal. Ears Normal Inspection - Right: Normal, Left: Normal. Pinna - Right: Normal, Left: Normal. Nasopharynx Normal External nose - Normal. Nares - Right: Normal. Nasal Mucosa - Normal. Lips/teeth/gums - Normal. Buccal mucosa - Normal. Neck Exam Normal Inspection - Normal. Range of motion - Normal. Neck Exam Comments Supple. Respiratory Normal Inspection - Normal. Cough - Absent. Effort - Normal. Cardiovascular Normal Heart rate - Regular rate. Vascular Normal Pulses - Radial: Normal, Brachial: Normal, Dorsalis pedis: Normal, Posterior tibial: Normal. Capillary refill - Less than 2 seconds. Skin * Rash - Description: none. Extremity Normal No Edema. No Calf tenderness. Diabetic Foot Screen Normal Pulses - Dorsalis pedis: Normal, Posterior tibial: Normal. Neurological Normal Level of consciousness - Normal. Orientation - Normal. Memory - Normal. Psychiatric Normal No agitation. Appropriate mood and affect. Appropriate affect. Normal insight. Normal judgment. Lumbar spine Inspection: No erythema, ecchymosis, swelling or deformity. No open wounds. NVID Notes reviewed from 12/03/22 History obtained from patient. ASSESSMENT and PLAN: 1. Osteoarthritis of both sacroiliac joints - US IMAGING FOR ORTHO; Future 2. Pain of both sacroiliac joints - US IMAGING FOR ORTHO; Future We elected to move forward with an injection to the bilateral sacroiliac joint today using the US. I would like to see Matthew return in 3-4 weeks to verify she has responded well. 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 We weighed the options of whether or not to proceed with an injection today based off of these findings and discussed alternatives. After this discussion, I felt that the injection was indicated and we elected to proceed. This evaluation and management service was a separate and identifiable service apart from the injection. Patient counseled on expected outcome and continued treatment and healing process. Patient tolerated the procedure well and was discharged in good condition with post-procedure instructions and anticipatory guidance regarding possible adverse reactions after the procedure including but not limited to infection, injection site flare reaction, allergic reaction. If corticosteroids were used then specifically the patient may develop hyperglycemia, facial flushing, heart palpitations amongst many other side effects associated with corticosteroids. LARGE JOINT/BURSA INJECTION AND/OR ASPIRATION Date/Time: 12/03/2022 2:00 PM Supporting Documentation Indications: pain and osteoarthritis Procedure Details: Location: sacroiliac - bilateral sacroiliac joint Local Anesthetic: lidocaine 1% and bupivacaine 0.5% Total Local Anesthetic: 4 mLs Guidance: ultrasound Ultrasound probe size: 4 mHz curvilinear Images were saved electronically. Needle size: 22 G Needle Length: 4.0 inch Approach: posterior Medication Verification: I have personally verified and performed the final check of the medication(s) used in this procedure prior to administration. The following items were included during the verification process for medication(s) administered: drug name, strength, volume, expiration, physical integrity and appearance of the medication(s). Medications (Right): 4 mL lidocaine 10 mg/mL; 1 mL bupivacaine 0.5 %; 5 mL sodium chloride (PF) 0.9 %; 2 mL triamcinolone 40 MG/ML; 4 mg dexAMETHasone 4 MG/ML Medications (Left): 5 mL sodium chloride (PF) 0.9 %; 4 mL lidocaine 10 mg/mL; 1 mL bupivacaine 0.5 %; 2 mL triamcinolone 40 MG/ML; 4 mg dexAMETHasone 4 MG/ML Patient tolerance: patient tolerated the procedure well with no immediate complications Consent: Consent was obtained prior to the procedure after discussion of the risks, benefits and alternatives, and expected outcomes were discussed with the patient. The possibilities of reaction to medication, bleeding, infection, the need for additional procedures, failure to diagnosis a condition, and creating a complication requiring operation were discussed with the patient. The patient concurred with the proposed plan, giving consent. Preparation: Patient was prepped in the usual sterile fashion. The patient was prepped with Chloraprep. Medical Decision Making At today's visit I reviewed the history, physical examination, and previous pertinent imaging. We weighed the options of whether or not to proceed with an injection today based off of these findings and discussed alternatives. After this discussion, I felt that the injection was indicated and we elected to proceed. This evaluation and management service was a separate and identifiable service apart from the injection. Patient counseled on expected outcome and continued treatment and healing process. Patient tolerated the procedure well and was discharged in good condition with post-procedure instructions and anticipatory guidance regarding possible adverse reactions after the procedure including but not limited to infection, injection site flare reaction, allergic reaction. If corticosteroids were used then specifically the patient may develop hyperglycemia, facial flushing, heart palpitations amongst many other side effects associated with corticosteroids. Patient reports 100% pain relief while anesthestized. I have reviewed, edited and added to the above note and agree with those findings. Additions if any: Raoul Lundy MD, [facility] Comprehensive Ophthalmologist - [facility] documented in this encounterSelect Medical [facility] History of Present illness Narrative* Shayne Solis, DO - 11/24/2022 2:59 PM EST 11/24/22 Matthew Perez 1955 CHIEF COMPLAINT Left shoulder pain HISTORY Matthew Perez is a 67 y.o. year old female presents today for evaluation of left shoulder pain. She states that over 10 years ago she had a rotator cuff repair. She states that recently she started noticed an increase in pain as well as some weakness. She has a lot of trouble with overheadactivities and reaching minor back. She states she saw another orthopedic surgeon who recommended agraft versus a shoulder replacement. She states she put this off for a little while. She is here for further evaluation today. Pain is mostly the lateral aspect of her arm. She denies fevers chills or sweats. REVIEW OF SYSTEMS 10 point ROS performed and is negative except as stated in HPI PAST MEDICAL HISTORY The patient's Medications, Allergies, Past Surgical History, Medical History, Family History and Social History were reviewed and can be found in their online medical record. PHYSICAL EXAM General: Patient is well developed, well nourished in no apparent distress. They are awake and oriented x 3. Appropriate mood and affect. Pt ambulates with a normal gait. Appropriate balance. Shoulder - Left Inspection: Examination of the UE reveals the skin to be intact with no edema, erythema or ecchymosis. There is no obvious deformity. Palpation: AC Tenderness:No AC Tenderness. Cross arm test Negative. ROM:Full ROM with pain above 90 degrees of abduction and forward elevation. Strength: Weakness with abduction as well as forward elevation. Drop arm test is Negative. Instability: None. Neurovascular: Grossly normal NV exam in the distal UE. Special Tests: RTC Exam: Positive pantoja test and impingement sign. Biceps Exam: Positive speeds and Acosta's with pain with resisted supination. Shoulder - Right Inspection: Examination of the UE reveals the skin to be intact with no edema, erythema or ecchymosis. There is no obvious deformity. Palpation: AC Tenderness:No AC Tenderness. Cross arm test Negative. ROM:Full ROM of the shoulder without pain. Strength: Normal strength against resistance. Drop arm test is Negative. Instability: None. Neurovascular: Grossly normal NV exam in the distal UE. Special Tests: RTC Exam: Negative pantoja and impingement sign. Biceps Exam: Negative speeds and O'jyotsna's and no pain with resisted supination. IMAGING X-rays of the left shoulder from today were reviewed independently by me and demonstrate evidence of a prior rotator cuff repair with an anchor in place. No significant degenerative changes are seen.There is a possible high riding humeral head. IMPRESSION Left shoulder pain PLAN At this time we had a long discussion. I am concerned that she may have a retear of the rotator cuff. My concern is that it may be old and large at this point due to the high riding humeral head. I would like to further evaluate this with an MRI. This order was placed today. I will plan to see her back after this is done to discuss the results and the next steps in treatment. All questions were answered and patient is in agreement with plan. X-rays upon next visit:No. Shayne Solis DO Note: To expedite correspondence this note was generated by [employer] voice recognition software. Somegrammatical or spelling errors may occur using the system. documented in this [id number] History of Present illness Narrative* Mica Tejeda - 10/04/2022 10:30 AM EST Referred by: 67 year old female by insurance company Chief Complaint Patient presents with Lower Back - Pain, Follow-up Left Hip - Pain Left Leg - Pain The patient is in today for her R SI joint, L hip, and L leg . She is here for her R SI superior and inferior US guided injection. She states she agrees to receive the injection today. She states herL left leg hurts sometimes and experiences groin pain. She was prescribed Diclofenac gel but she did not realize that. She states her pain is a 3/10 in the office and her pain while walking or vacuuming her pain is an 9/10. She states her pain is stabbing. Location: R SI joint, L hip, L leg Quality: stabbing Duration: L leg and hip- 1 month and R SI joint- years NSAIDs? no Analgesics? Oxcycodone Other pain modalities? Ice, pillow, gel for knees Physical therapy? Previously Chiropractic? Previously Injections? Previously Xrays? 09/16/2021- lumbar spine MRI? 11/12/21-lumbar spine CT? no Treatment performed or prescribed at last visit? Xrays, exercise challenge JOSE JUAN's, Diclofenac gel on07/27/22 Response to treatment since last visit? She received and you reviewed her results and she has not used the Diclofenac gel but was informed that the prescription was called in and she is going to pickit up. Current Outpatient Medications: albuterol 108 (90 Base) MCG/ACT Aero Soln inhaler, Inhale 2 puffs every 6 hours as needed for Wheezing., Disp: 1 Inhaler, Rfl: 11 amLODIPine 5 MG tablet, Take 5 mg by mouth daily., Disp: , Rfl: budesonide-formoterol (SYMBICORT) 160-4.5 mcg/puff Aerosol inhaler, Inhale 2 puffs 2 times daily. Rinse mouth after use, Disp: 1 Inhaler, Rfl: 11 clonazePAM 1 MG PO TABS, take 1 Tab by mouth at bedtime., Disp: , Rfl: Diclofenac Sodium 1 % Gel gel, Apply 2 g topically 4 times daily., Disp: 350 g, Rfl: 0 furOSEmide 20 MG tablet, Take 20 mg by mouth daily., Disp: , Rfl: hydrocodone-acetaminophen 5-500 MG PO TABS, take 1 Tab by mouth every 6 hours as needed for Pain. (Patient not taking: Reported on 06/27/2019), Disp: 60 Tab, Rfl: 0 ipratropium 0.02 % Solution inhalation solution, Take 0.5 mg by nebulization 4 times daily. PRN, Disp: , Rfl: lisinopril 20 MG PO TABS, take 1 Tab by mouth 2 times daily., Disp: , Rfl: Melatonin 5 MG capsule, Take 5 mg by mouth. 1 tablet at night, Disp: , Rfl: montelukast 10 MG Tab tablet, Take 10 mg by mouth daily., Disp: , Rfl: naloxone (Narcan) 4 MG/0.1ML, 1 spray by Nasal route once. [place] into the nose as directed. Call 911. If no response in 2 minutes use a new nasal spray in other nostril. Repeat until help arrives. Ifneeded., Disp: , Rfl: oxyCODONE 5 MG PO TABS, take 1-2 Tabs by mouth every 3 hours as needed (if taking oral medications). (Patient not taking: Reported on 06/10/2022), Disp: 60 Tab, Rfl: 0 oxycodone-acetaminophen 10-325 MG per tablet, Take 1 tablet by mouth. 6 times a day, Disp: , Rfl: ropinirole 1 MG PO TABS, Take 2 tablets by mouth every evening. , Disp: , Rfl: sertraline 100 MG Tab, take 100 mg by mouth daily.., Disp: , Rfl: tiotropium 18 MCG inhalation capsule, Inhale 18 mcg daily., Disp: , Rfl: traZODone 50 MG tablet, Take 50 mg by mouth daily., Disp: , Rfl: Family History Problem Relation Age of Onset Cancer- Other Mother skin Breast Cancer Mother Diabetes Father Heart Disease - Other Father Myocardial Infarction Father Social History Tobacco Use Smoking status: Never Smokeless tobacco: Never Substance Use Topics Alcohol use: Yes Comment: rarely Drug use: Never Past Surgical History: Procedure Laterality Date NECK SURGERY N/A 02/2021 KNEE REPLACEMENT Right 2016 NECK SURGERY 2014 THORACOSCOPY LUNG PLEURA DIAGNOSTIC 12/13/2011 Laterality: N/A; Surgeon: Blu Donaldson MD;; Location: [facility] OR RESECTION LUNG WEDGE THORACOSCOPIC INITIAL 12/13/2011 Laterality: N/A; Surgeon: Blu Donaldson MD;; [facility] [facility] THORACOTOMY EXPLORATION 12/13/2011 Laterality: N/A; Surgeon: Blu Donaldson MD;; Location: [facility] OR LOBECTOMY LUNG THORACOSCOPIC 12/13/2011 Laterality: N/A; Surgeon: Blu Donaldson MD;; Location: [facility] KNEE ARTHROSCOPY Left 2011 BRONCHOSCOPY FLEXIBLE DIAGNOSTIC 09/27/2011 Laterality: Midline; Surgeon: Blu Donaldson MD; Bronch/ebus Dr donaldson wants to do as first caseon 09/27/11; Location: [facility] OR ULTRASOUND ENDOBRONCHIAL (EBUS) DURING BRONCHOSCOPY ADD-ON PX 09/27/2011 Laterality: N/A; Surgeon: Blu Donaldson MD;; Location: [facility] OR BACK SURGERY BLADDER SUSPENSION FOOT SURGERY HIP SURGERY Right HYSTERECTOMY ROTATOR CUFF REPAIR VEIN STRIPPING Left Vitals: 10/04/22 1013 Weight: 82.1 kg (181 lb) Height: 1.676 m (5' 6) Constitutional No fevers, chills or sweats, unintentional weight gain or weight loss, night pain, or night sweats except as per HPI. Cardiovascular No recent chest pain or palpitations. No claudication. No new or worsening lower extremity edema except as per HPI. Respiratory No new or worsening shortness of breath, dyspnea on exertion, orthopnea or paroxysmal nocturnal dyspnea except as per HPI. Gastrointestinal No recent heartburn or stomach upset, no history of ulcers except as per HPI. Musculoskeletal No joint pain, stiffness, or weakness except as per HPI. Endocrine No polyphagia, polydypsia, or polyuria. Hematologic No known or recent anemia, no excessive bleeding. Rheumatologic No history or currently active autoimmune or rheumatologic disease except as per HPI. Integumentary No new or relevant rashes or lesions except as per HPI. Neurologic No numbness, tingling, or weakness into her distal extremities except as per HPI. Constitutional Normal No acute distress. Well nourished. Well developed. Head/Face Normal Facial features - Normal. Eyebrows - Normal. Skull - Normal. Hair and scalp - Normal. Eyes Normal General - Right: Normal, Left: Normal. Lids/external - Right: Normal, Left: Normal. Conjunctiva - Right: Normal, Left: Normal. Ears Normal Inspection - Right: Normal, Left: Normal. Pinna - Right: Normal, Left: Normal. Nasopharynx Normal External nose - Normal. Nares - Right: Normal. Nasal Mucosa - Normal. Lips/teeth/gums - Normal. Buccal mucosa - Normal. Neck Exam Normal Inspection - Normal. Range of motion - Normal. Neck Exam Comments Supple. Respiratory Normal Inspection - Normal. Cough - Absent. Effort - Normal. Cardiovascular Normal Heart rate - Regular rate. Vascular Normal Pulses - Radial: Normal, Brachial: Normal, Dorsalis pedis: Normal, Posterior tibial: Normal. Capillary refill - Less than 2 seconds. Skin * Rash - Description: none. Extremity Normal No Edema. No Calf tenderness. Diabetic Foot Screen Normal Pulses - Dorsalis pedis: Normal, Posterior tibial: Normal. Neurological Normal Level of consciousness - Normal. Orientation - Normal. Memory - Normal. Psychiatric Normal No agitation. Appropriate mood and affect. Appropriate affect. Normal insight. Normal judgment. * Felix Maguire ATC - 10/04/2022 10:30 AM ESTAssociated Order(s): LARGE JOINT/BURSA INJECTION AND/OR ASPIRATION: L hip joint Interval exam: Left hip Inspection: No erythema, ecchymosis, swelling or deformity. No open wounds. Palpation: Tender to groin ROM: Not tested Laxity: No laxity appreciated Strength: Intact active flexion and extension of the hip. Special Maneuvers: Positive log roll, positive NIR, positive FADIR. Xray ordered today left hip Notes reviewed from [facility] 08/17/22, XR bilateral knees reviewed from 08/16/22 History obtained from patient. ASSESSMENT and PLAN: 1. Primary osteoarthritis of left hip - LARGE JOINT/BURSA INJECTION AND/OR ASPIRATION: L hip joint 2. Left hip pain - XR HIPS WITH PELVIS BILATERAL - LARGE JOINT/BURSA INJECTION AND/OR ASPIRATION: L hip joint [facility] radiographs display seveve left hip osteoarthritis. We elected to inject her hip joint with US guidance today I will see her return for a possible bilateral sacroiliac joint injection in 4-6 weeks. She may call with any questions or concerns. 3. Osteoarthritis of both sacroiliac joints 4. Pain of both sacroiliac joints Scheduled for bilateral sacroiliac joint injections with US guidance. 5. Cervical spine pain - AMB REFERRAL TO NEUROSURGERY Referral made to Dr. Thurston. 6. Left shoulder pain, unspecified chronicity - AMB REFERRAL TO ORTHOPAEDICS Referral made to Dr. Lujan. Referrals: Dr. Ljuan, Dr. Thurston Medications prescribed today: none Follow up plan: 4-6 weeks possible US guided bilateral sacroiliac joint injections Severity of problem(s): mild Risk of morbidity from the condition and/or testing or treatment: low Medical Decision Making At today's visit I reviewed the history, physical examination, and previous pertinent imaging. We weighed the options of whether or not to proceed with an injection today based off of these findings and discussed alternatives. After this discussion, I felt that the injection was indicated and we elected to proceed. This evaluation and management service was a separate and identifiable service apart from the injection. Patient counseled on expected outcome and continued treatment and healing process. Patient tolerated the procedure well and was discharged in good condition with post-procedure instructions and anticipatory guidance regarding possible adverse reactions after the procedure including but not limited to infection, injection site flare reaction, allergic reaction. If corticosteroids were used then specifically the patient may develop hyperglycemia, facial flushing, heart palpitations amongst many other side effects associated with corticosteroids. LARGE JOINT/BURSA INJECTION AND/OR ASPIRATION: L hip joint Date/Time: 10/04/2022 10:30 AM Supporting Documentation Indications: pain Procedure Details: Location: hip - L hip joint Local Anesthetic: bupivacaine 0.5% and lidocaine 1% Total Local Anesthetic: 4 mLs Guidance: ultrasound Ultrasound probe size: 4 mHz curvilinear Images were saved electronically. Needle size: 22 G Needle Length: 4.0 inch Approach: anterior Medication Verification: I have personally verified and performed the final check of the medication(s) used in this procedure prior to administration. The following items were included during the verification process for medication(s) administered: drug name, strength, volume, expiration, physical integrity and appearance of the medication(s). Medications administered: 1 mL bupivacaine 0.5 %; 2 mL triamcinolone 40 MG/ML; 4 mL lidocaine 10 mg/mL; 5 mL sodium chloride (PF) 0.9 % Patient tolerance: patient tolerated the procedure well with no immediate complications Pre-Procedure Details The attending physician was present for the entire procedure. Consent: Consent was obtained prior to the procedure after discussion of the risks, benefits and alternatives, and expected outcomes were discussed with the patient. The possibilities of reaction to medication, bleeding, infection, the need for additional procedures, failure to diagnosis a condition, and creating a complication requiring operation were discussed with the patient. The patient concurred with the proposed plan, giving consent. Preparation: Patient was prepped in the usual sterile fashion. The patient was prepped with Chloraprep. Medical Decision Making At today's visit I reviewed the history, physical examination, and previous pertinent imaging. We weighed the options of whether or not to proceed with an injection today based off of these findings and discussed alternatives. After this discussion, I felt that the injection was indicated and we elected to proceed. This evaluation and management service was a separate and identifiable service apart from the injection. Patient counseled on expected outcome and continued treatment and healing process. Patient tolerated the procedure well and was discharged in good condition with post-procedure instructions and anticipatory guidance regarding possible adverse reactions after the procedure including but not limited to infection, injection site flare reaction, allergic reaction. If corticosteroids were used then specifically the patient may develop hyperglycemia, facial flushing, heart palpitations amongst many other side effects associated with corticosteroids. Patient notices relief while anesthestized. * Raoul Lundy MD - 10/04/2022 10:30 AM EST Referred by: 67 year old female by insurance company Chief Complaint Patient presents with Lower Back - Pain, Follow-up Left Hip - Pain Left Leg - Pain The patient is in today for her R SI joint, L hip, and L leg . She is here for her R SI superior and inferior US guided injection. She states she agrees to receive the injection today. She states herL left leg hurts sometimes and experiences groin pain. She was prescribed Diclofenac gel but she did not realize that. She states her pain is a 3/10 in the office and her pain while walking or vacuuming her pain is an 9/10. She states her pain is stabbing. Location: R SI joint, L hip, L leg Quality: stabbing Duration: L leg and hip- 1 month and R SI joint- years NSAIDs? no Analgesics? Oxcycodone Other pain modalities? Ice, pillow, gel for knees Physical therapy? Previously Chiropractic? Previously Injections? Previously Xrays? 09/16/2021- lumbar spine MRI? 11/12/21-lumbar spine CT? no Treatment performed or prescribed at last visit? Xrays, exercise challenge JOSE JUAN's, Diclofenac gel on07/27/22 Response to treatment since last visit? She received and you reviewed her results and she has not used the Diclofenac gel but was informed that the prescription was called in and she is going to pickit up. Current Outpatient Medications: albuterol 108 (90 Base) MCG/ACT Aero Soln inhaler, Inhale 2 puffs every 6 hours as needed for Wheezing., Disp: 1 Inhaler, Rfl: 11 amLODIPine 5 MG tablet, Take 5 mg by mouth daily., Disp: , Rfl: budesonide-formoterol (SYMBICORT) 160-4.5 mcg/puff Aerosol inhaler, Inhale 2 puffs 2 times daily. Rinse mouth after use, Disp: 1 Inhaler, Rfl: 11 clonazePAM 1 MG PO TABS, take 1 Tab by mouth at bedtime., Disp: , Rfl: Diclofenac Sodium 1 % Gel gel, Apply 2 g topically 4 times daily., Disp: 350 g, Rfl: 0 furOSEmide 20 MG tablet, Take 20 mg by mouth daily., Disp: , Rfl: hydrocodone-acetaminophen 5-500 MG PO TABS, take 1 Tab by mouth every 6 hours as needed for Pain. (Patient not taking: Reported on 06/27/2019), Disp: 60 Tab, Rfl: 0 ipratropium 0.02 % Solution inhalation solution, Take 0.5 mg by nebulization 4 times daily. PRN, Disp: , Rfl: lisinopril 20 MG PO TABS, take 1 Tab by mouth 2 times daily., Disp: , Rfl: Melatonin 5 MG capsule, Take 5 mg by mouth. 1 tablet at night, Disp: , Rfl: montelukast 10 MG Tab tablet, Take 10 mg by mouth daily., Disp: , Rfl: naloxone (Narcan) 4 MG/0.1ML, 1 spray by Nasal route once. [place] into the nose as directed. Call 911. If no response in 2 minutes use a new nasal spray in other nostril. Repeat until help arrives. Ifneeded., Disp: , Rfl: oxyCODONE 5 MG PO TABS, take 1-2 Tabs by mouth every 3 hours as needed (if taking oral medications). (Patient not taking: Reported on 06/10/2022), Disp: 60 Tab, Rfl: 0 oxycodone-acetaminophen 10-325 MG per tablet, Take 1 tablet by mouth. 6 times a day, Disp: , Rfl: ropinirole 1 MG PO TABS, Take 2 tablets by mouth every evening. , Disp: , Rfl: sertraline 100 MG Tab, take 100 mg by mouth daily.., Disp: , Rfl: tiotropium 18 MCG inhalation capsule, Inhale 18 mcg daily., Disp: , Rfl: traZODone 50 MG tablet, Take 50 mg by mouth daily., Disp: , Rfl: Family History Problem Relation Age of Onset Cancer- Other Mother skin Breast Cancer Mother Diabetes Father Heart Disease - Other Father Myocardial Infarction Father Social History Tobacco Use Smoking status: Never Smokeless tobacco: Never Substance Use Topics Alcohol use: Yes Comment: rarely Drug use: Never Past Surgical History: Procedure Laterality Date NECK SURGERY N/A 02/2021 KNEE REPLACEMENT Right 2016 NECK SURGERY 2014 THORACOSCOPY LUNG PLEURA DIAGNOSTIC 12/13/2011 Laterality: N/A; Surgeon: Blu Donaldson MD;; Location: [facility] RESECTION LUNG WEDGE THORACOSCOPIC INITIAL 12/13/2011 Laterality: N/A; Surgeon: Blu Donaldson MD;; Location: [facility] THORACOTOMY EXPLORATION 12/13/2011 Laterality: N/A; Surgeon: Blu Donaldson MD;; Location: [facility] LOBECTOMY LUNG THORACOSCOPIC 12/13/2011 Laterality: N/A; Surgeon: Blu Donaldson MD;; Location: [facility] KNEE ARTHROSCOPY Left 2011 BRONCHOSCOPY FLEXIBLE DIAGNOSTIC 09/27/2011 Laterality: Midline; Surgeon: Blu Donaldson MD; Bronch/ebus Dr donaldson wants to do as first caseon 09/27/11; Location: [facility] OR ULTRASOUND ENDOBRONCHIAL (EBUS) DURING BRONCHOSCOPY ADD-ON PX 09/27/2011 Laterality: N/A; Surgeon: Blu Donaldson MD;; Location: [facility] OR BACK SURGERY BLADDER SUSPENSION FOOT SURGERY HIP SURGERY Right HYSTERECTOMY ROTATOR CUFF REPAIR VEIN STRIPPING Left Vitals: 10/04/22 1013 Weight: 82.1 kg (181 lb) Height: 1.676 m (5' 6) Constitutional No fevers, chills or sweats, unintentional weight gain or weight loss, night pain, or night sweats except as per HPI. Cardiovascular No recent chest pain or palpitations. No claudication. No new or worsening lower extremity edema except as per HPI. Respiratory No new or worsening shortness of breath, dyspnea on exertion, orthopnea or paroxysmal nocturnal dyspnea except as per HPI. Gastrointestinal No recent heartburn or stomach upset, no history of ulcers except as per HPI. Musculoskeletal No joint pain, stiffness, or weakness except as per HPI. Endocrine No polyphagia, polydypsia, or polyuria. Hematologic No known or recent anemia, no excessive bleeding. Rheumatologic No history or currently active autoimmune or rheumatologic disease except as per HPI. Integumentary No new or relevant rashes or lesions except as per HPI. Neurologic No numbness, tingling, or weakness into her distal extremities except as per HPI. Constitutional Normal No acute distress. Well nourished. Well developed. Head/Face Normal Facial features - Normal. Eyebrows - Normal. Skull - Normal. Hair and scalp - Normal. Eyes Normal General - Right: Normal, Left: Normal. Lids/external - Right: Normal, Left: Normal. Conjunctiva - Right: Normal, Left: Normal. Ears Normal Inspection - Right: Normal, Left: Normal. Pinna - Right: Normal, Left: Normal. Nasopharynx Normal External nose - Normal. Nares - Right: Normal. Nasal Mucosa - Normal. Lips/teeth/gums - Normal. Buccal mucosa - Normal. Neck Exam Normal Inspection - Normal. Range of motion - Normal. Neck Exam Comments Supple. Respiratory Normal Inspection - Normal. Cough - Absent. Effort - Normal. Cardiovascular Normal Heart rate - Regular rate. Vascular Normal Pulses - Radial: Normal, Brachial: Normal, Dorsalis pedis: Normal, Posterior tibial: Normal. Capillary refill - Less than 2 seconds. Skin * Rash - Description: none. Extremity Normal No Edema. No Calf tenderness. Diabetic Foot Screen Normal Pulses - Dorsalis pedis: Normal, Posterior tibial: Normal. Neurological Normal Level of consciousness - Normal. Orientation - Normal. Memory - Normal. Psychiatric Normal No agitation. Appropriate mood and affect. Appropriate affect. Normal insight. Normal judgment. Interval exam: Left hip Inspection: No erythema, ecchymosis, swelling or deformity. No open wounds. Palpation: Tender to groin ROM: Not tested Laxity: No laxity appreciated Strength: Intact active flexion and extension of the hip. Special Maneuvers: Positive log roll, positive NIR, positive FADIR. Xray ordered today left hip Notes reviewed from [facility] 08/17/22, XR bilateral knees reviewed from 08/16/22 History obtained from patient. ASSESSMENT and PLAN: 1. Primary osteoarthritis of left hip - LARGE JOINT/BURSA INJECTION AND/OR ASPIRATION: L hip joint 2. Left hip pain - XR HIPS WITH PELVIS BILATERAL - LARGE JOINT/BURSA INJECTION AND/OR ASPIRATION: L hip joint [facility] radiographs display seveve left hip osteoarthritis. We elected to inject her hip joint with US guidance today I will see her return for a possible bilateral sacroiliac joint injection in 4-6 weeks. She may call with any questions or concerns. 3. Osteoarthritis of both sacroiliac joints 4. Pain of both sacroiliac joints Scheduled for bilateral sacroiliac joint injections with US guidance. 5. Cervical spine pain - AMB REFERRAL TO NEUROSURGERY Referral made to Dr. Thurston. 6. Left shoulder pain, unspecified chronicity - AMB REFERRAL TO ORTHOPAEDICS Referral made to Dr. Lujan. Referrals: Dr. Lujan, Dr. Thurston Medications prescribed today: none Follow up plan: 4-6 weeks possible US guided bilateral sacroiliac joint injections Severity of problem(s): mild Risk of morbidity from the condition and/or testing or treatment: low Medical Decision Making At today's visit I reviewed the history, physical examination, and previous pertinent imaging. We weighed the options of whether or not to proceed with an injection today based off of these findings and discussed alternatives. After this discussion, I felt that the injection was indicated and we elected to proceed. This evaluation and management service was a separate and identifiable service apart from the injection. Patient counseled on expected outcome and continued treatment and healing process. Patient tolerated the procedure well and was discharged in good condition with post-procedure instructions and anticipatory guidance regarding possible adverse reactions after the procedure including but not limited to infection, injection site flare reaction, allergic reaction. If corticosteroids were used then specifically the patient may develop hyperglycemia, facial flushing, heart palpitations amongst many other side effects associated with corticosteroids. LARGE JOINT/BURSA INJECTION AND/OR ASPIRATION: L hip joint Date/Time: 10/04/2022 10:30 AM Supporting Documentation Indications: pain Procedure Details: Location: hip - L hip joint Local Anesthetic: bupivacaine 0.5% and lidocaine 1% Total Local Anesthetic: 4 mLs Guidance: ultrasound Ultrasound probe size: 4 mHz curvilinear Images were saved electronically. Needle size: 22 G Needle Length: 4.0 inch Approach: anterior Medication Verification: I have personally verified and performed the final check of the medication(s) used in this procedure prior to administration. The following items were included during the verification process for medication(s) administered: drug name, strength, volume, expiration, physical integrity and appearance of the medication(s). Medications administered: 1 mL bupivacaine 0.5 %; 2 mL triamcinolone 40 MG/ML; 4 mL lidocaine 10 mg/mL; 5 mL sodium chloride (PF) 0.9 % Patient tolerance: patient tolerated the procedure well with no immediate complications Pre-Procedure Details The attending physician was present for the entire procedure. Consent: Consent was obtained prior to the procedure after discussion of the risks, benefits and alternatives, and expected outcomes were discussed with the patient. The possibilities of reaction to medication, bleeding, infection, the need for additional procedures, failure to diagnosis a condition, and creating a complication requiring operation were discussed with the patient. The patient concurred with the proposed plan, giving consent. Preparation: Patient was prepped in the usual sterile fashion. The patient was prepped with Chloraprep. Medical Decision Making At today's visit I reviewed the history, physical examination, and previous pertinent imaging. We weighed the options of whether or not to proceed with an injection today based off of these findings and discussed alternatives. After this discussion, I felt that the injection was indicated and we elected to proceed. This evaluation and management service was a separate and identifiable service apart from the injection. Patient counseled on expected outcome and continued treatment and healing process. Patient tolerated the procedure well and was discharged in good condition with post-procedure instructions and anticipatory guidance regarding possible adverse reactions after the procedure including but not limited to infection, injection site flare reaction, allergic reaction. If corticosteroids were used then specifically the patient may develop hyperglycemia, facial flushing, heart palpitations amongst many other side effects associated with corticosteroids. Patient notices relief while anesthestized. I have reviewed, edited and added to the above note and agree with those findings. Additions if any: Raoul Lundy MD, [facility] Comprehensive Ophthalmologist - [facility] documented in this [facility]12-05-2022 Instructions* Patient Instructions* Felix Maguire ATC - 10/04/2022 10:30 AM EST Patient counseled on expected outcome and continued treatment and healing process. Patient tolerated the procedure well and was discharged in good condition with post-procedure instructions and anticipatory guidance regarding possible adverse reactions after the procedure including but not limited to infection, injection site flare reaction, allergic reaction. If corticosteroids were used then specifically the patient may develop hyperglycemia, facial flushing, heart palpitations amongst many other side effects associated with corticosteroids. documented in this [facility]09-27-2022 History of Present illness Narrative* Mica Tejeda - 07/27/2022 9:50 AM EDT Referred by: 67 year old female by insurance company Chief Complaint Patient presents with Lower Back - Pain, Follow-up Patient is in today for her R SI joint. She is also in today for her R SI joint USG injection 3 week follow-up. She states her pain is. She states her pain is dull and not a constant pain anymore butshe sometimes gets a sharp pain if she bends the wrong way. She states she would like to come back and see you for her bilateral knee pain after her shoulder surgery. She states her pain at rest is a 2/10 and when active her pain is a 7/10. Location: R SI joint Quality: dull pain, sharp with bending wrong Duration: years NSAIDs? no Analgesics? Oxcycodone Other pain modalities? Ice, pillow, gel for knees Physical therapy? Previously Chiropractic? Previously Injections? Previously Xrays? 09/16/2021- lumbar spine MRI? 11/12/21-lumbar spine CT? no Bowel or bladder dysfunction? Bladder tie up and needs a new one Numbness or tingling? Feet- burning Weakness? Bilateral legs- R hip and knee replacement,calves Patient occupation, sport or other pertinent activity: disability, relaxing, daily chores Treatment performed or prescribed at last visit? 06/24 R SI joint US guided injection. Response to treatment since last visit? She states her pain is a little better. She states the injection has provided 20 % pain relief. Current Outpatient Medications: albuterol 108 (90 Base) MCG/ACT Aero Soln inhaler, Inhale 2 puffs every 6 hours as needed for Wheezing., Disp: 1 Inhaler, Rfl: 11 amLODIPine 5 MG tablet, Take 5 mg by mouth daily., Disp: , Rfl: budesonide-formoterol (SYMBICORT) 160-4.5 mcg/puff Aerosol inhaler, Inhale 2 puffs 2 times daily. Rinse mouth after use, Disp: 1 Inhaler, Rfl: 11 clonazePAM 1 MG PO TABS, take 1 Tab by mouth at bedtime., Disp: , Rfl: furOSEmide 20 MG tablet, Take 20 mg by mouth daily., Disp: , Rfl: hydrocodone-acetaminophen 5-500 MG PO TABS, take 1 Tab by mouth every 6 hours as needed for Pain. (Patient not taking: Reported on 06/27/2019), Disp: 60 Tab, Rfl: 0 ipratropium 0.02 % Solution inhalation solution, Take 0.5 mg by nebulization 4 times daily. PRN, Disp: , Rfl: lisinopril 20 MG PO TABS, take 1 Tab by mouth 2 times daily., Disp: , Rfl: Melatonin 5 MG capsule, Take 5 mg by mouth. 1 tablet at night, Disp: , Rfl: montelukast 10 MG Tab tablet, Take 10 mg by mouth daily., Disp: , Rfl: naloxone (Narcan) 4 MG/0.1ML, 1 spray by Nasal route once. [place] into the nose as directed. Call 911. If no response in 2 minutes use a new nasal spray in other nostril. Repeat until help arrives. Ifneeded., Disp: , Rfl: oxyCODONE 5 MG PO TABS, take 1-2 Tabs by mouth every 3 hours as needed (if taking oral medications). (Patient not taking: Reported on 06/10/2022), Disp: 60 Tab, Rfl: 0 oxycodone-acetaminophen 10-325 MG per tablet, Take 1 tablet by mouth. 6 times a day, Disp: , Rfl: ropinirole 1 MG PO TABS, Take 2 tablets by mouth every evening. , Disp: , Rfl: sertraline 100 MG Tab, take 100 mg by mouth daily.., Disp: , Rfl: tiotropium 18 MCG inhalation capsule, Inhale 18 mcg daily., Disp: , Rfl: traZODone 50 MG tablet, Take 50 mg by mouth daily., Disp: , Rfl: Family History Problem Relation Age of Onset Cancer- Other Mother skin Breast Cancer Mother Diabetes Father Heart Disease - Other Father Myocardial Infarction Father Social History Tobacco Use Smoking status: Never Smoker Smokeless tobacco: Never Used Substance Use Topics Alcohol use: Not Currently Comment: rarely Past Surgical History: Procedure Laterality Date NECK SURGERY N/A 02/2021 KNEE REPLACEMENT Right 2016 NECK SURGERY 2014 THORACOSCOPY LUNG PLEURA DIAGNOSTIC 12/13/2011 Laterality: N/A; Surgeon: Blu Donaldson MD;; Location: [facility] OR RESECTION LUNG WEDGE THORACOSCOPIC INITIAL 12/13/2011 Laterality: N/A; Surgeon: Blu Donaldson MD;; Location: [facility] MA[facility] OR THORACOTOMY EXPLORATION 12/13/2011 Laterality: N/A; Surgeon: Blu Donaldson MD;; Location: [facility] MA[facility] OR LOBECTOMY LUNG THORACOSCOPIC 12/13/2011 Laterality: N/A; Surgeon: Blu Donaldson MD;; Location: [facility] MAIN OR KNEE ARTHROSCOPY Left 2011 BRONCHOSCOPY FLEXIBLE DIAGNOSTIC 09/27/2011 Laterality: Midline; Surgeon: Blu Donaldson MD; Bronch/ebus Dr donaldson wants to do as first caseon 09/27/11; Location: [facility] OR ULTRASOUND ENDOBRONCHIAL (EBUS) DURING BRONCHOSCOPY ADD-ON PX 09/27/2011 Laterality: N/A; Surgeon: Blu Donaldson MD;; Location: [facility] MAIN OR BACK SURGERY BLADDER SUSPENSION FOOT SURGERY HIP SURGERY Right HYSTERECTOMY ROTATOR CUFF REPAIR VEIN STRIPPING Left There were no vitals filed for this visit. Constitutional No fevers, chills or sweats, unintentional weight gain or weight loss, night pain, or night sweats except as per HPI. Cardiovascular No recent chest pain or palpitations. No claudication. No new or worsening lower extremity edema except as per HPI. Respiratory No new or worsening shortness of breath, dyspnea on exertion, orthopnea or paroxysmal nocturnal dyspnea except as per HPI. Gastrointestinal No recent heartburn or stomach upset, no history of ulcers except as per HPI. Musculoskeletal No joint pain, stiffness, or weakness except as per HPI. Endocrine No polyphagia, polydypsia, or polyuria. Hematologic No known or recent anemia, no excessive bleeding. Rheumatologic No history or currently active autoimmune or rheumatologic disease except as per HPI. Integumentary No new or relevant rashes or lesions except as per HPI. Neurologic No numbness, tingling, or weakness into her distal extremities except as per HPI. Constitutional Normal No acute distress. Well nourished. Well developed. Head/Face Normal Facial features - Normal. Eyebrows - Normal. Skull - Normal. Hair and scalp - Normal. Eyes Normal General - Right: Normal, Left: Normal. Lids/external - Right: Normal, Left: Normal. Conjunctiva - Right: Normal, Left: Normal. Ears Normal Inspection - Right: Normal, Left: Normal. Pinna - Right: Normal, Left: Normal. Nasopharynx Normal External nose - Normal. Nares - Right: Normal. Nasal Mucosa - Normal. Lips/teeth/gums - Normal. Buccal mucosa - Normal. Neck Exam Normal Inspection - Normal. Range of motion - Normal. Neck Exam Comments Supple. Respiratory Normal Inspection - Normal. Cough - Absent. Effort - Normal. Cardiovascular Normal Heart rate - Regular rate. Vascular Normal Pulses - Radial: Normal, Brachial: Normal, Dorsalis pedis: Normal, Posterior tibial: Normal. Capillary refill - Less than 2 seconds. Skin * Rash - Description: none. Extremity Normal No Edema. No Calf tenderness. Diabetic Foot Screen Normal Pulses - Dorsalis pedis: Normal, Posterior tibial: Normal. Neurological Normal Level of consciousness - Normal. Orientation - Normal. Memory - Normal. Psychiatric Normal No agitation. Appropriate mood and affect. Appropriate affect. Normal insight. Normal judgment. * Felix Maguire, ATC - 07/27/2022 9:50 AM EDT Lumbar spine Inspection: No erythema, ecchymosis, swelling or deformity. No open wounds. NVID Left foot/ankle Inspection: No erythema, ecchymosis, swelling . No open wounds EXCEPT claw toe deformity noted involving the 2nd digit, 1st digit obvious osteophyte formation at the MTP. Palpation: Non-tender to the medial malleolus, lateral malleolus, base of the 5th metatarsal, anterior joint line, anterior tibialis tendon, posterior tibialis tendon, FHL, FDL, EDL, EDB, Achilles atthe watershed or insertion, retrocalcaneal bursa, infracalcaneal tubercle, ATF, CF or Deltoid ligament. No tenderness to the Lis-Franc or Chopart joint lines, metatarsals or MTPJ s. ROM: dorsiflexion 30, plantarflexion 30, inversion 15 and eversion 15 at the ankle. Full ROM of themid- and forefoot. Laxity: No laxity with ATFL drawer testing. No laxity to the CF or Deltoid ligaments. Strength: dorsiflexion 5/5, plantar flexion 5/5, inversion 5/5 and eversion 5/5. Active resisted isolation of the posterior tibialis does not cause pain, active resisted isolation of the peroneus brevis does not cause pain. Special Maneuvers: Negative talar tilt. Negative ankle squeeze. Neurovascularly intact distally. Right foot/ankle Inspection: No erythema, ecchymosis, swelling or deformity. No open wounds EXCEPT bunionette deformity. Palpation: Non-tender to the medial malleolus, lateral malleolus, base of the 5th metatarsal, anterior joint line, anterior tibialis tendon, posterior tibialis tendon, FHL, FDL, EDL, EDB, Achilles atthe watershed or insertion, retrocalcaneal bursa, infracalcaneal tubercle, ATF, CF or Deltoid ligament. No tenderness to the Lis-Franc or Chopart joint lines, metatarsals or MTPJ s. ROM: dorsiflexion 30, plantarflexion 30, inversion 15 and eversion 15 at the ankle. Full ROM of themid- and forefoot. Laxity: No laxity with ATFL drawer testing. No laxity to the CF or Deltoid ligaments. Strength: dorsiflexion 5/5, plantar flexion 5/5, inversion 5/5 and eversion 5/5. Active resisted isolation of the posterior tibialis does not cause pain, active resisted isolation of the peroneus brevis does not cause pain. Special Maneuvers: Negative talar tilt. Negative ankle squeeze. Neurovascularly intact distally. Left knee Inspection: No erythema, ecchymosis, swelling or deformity. No open wounds. Palpation: Medial and lateral joint line tenderness, small effusion. ROM: Flex 120, ext -5 Laxity: No increased laxity with varus/valgus stress test, mushtaq s, anterior or posterior drawer as compared to the contralateral side. Strength: Intact active flexion and extension of the knee Right knee Inspection: No erythema, ecchymosis, swelling or deformity. No open wounds. Well healed mid-line scar. Palpation: Medial and lateral joint line tenderness, small effusion. ROM: Flex 120, ext -5 Laxity: No increased laxity with varus/valgus stress test, mushtaq s, anterior or posterior drawer as compared to the contralateral side. Strength: Intact active flexion and extension of the knee Notes reviewed from 06/24/22 Independent interpretation: XR right foot reviewed from 07/15/20 - pes cavus, prior 5th MTP removal, screw fixation in 4th MT head. Mild mid-foot OA. Well preserved tibiotalar joint. History obtained from patient. ASSESSMENT and PLAN: 1. Osteoarthritis of both sacroiliac joints 2. Pain of both sacroiliac joints Matthew responded well to prior SI joint injection, but she did not have the expected response while anesthetized. Given this, it is possible that she requires injection to the superior and inferior aspect of the joint. We are scheduling a US guided injection to the right sacroiliac joint, this time at the superior and inferior poles. 3. Acute pain of both knees - XR KNEE RIGHT 3 VIEWS; Future - XR KNEES BILATERAL STANDING 1 VIEW; Future - XR KNEE LEFT 3 VIEWS We will assess for any hardware complication on the right and for the degree of OA in the left. We are ordering these to be done at [facility] due to insurance/financial reasons. 4. Acquired claw toe of left foot - XR FOOT LEFT 3 VIEWS; Future 5. 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 Shoe modification and orthotics are the conservative options. Surgical options were discussed. We will obtain updated radiographs and further assess her degree of OA and deformity. 6. Bunionette of right foot - XR FOOT RIGHT 3 VIEWS; Future Has had a previous procedure to remove bunionette. The angulation has returned although the 5th MTPhas been removed. We will obtain new radiographs to assess this alignment. 7. Intermittent claudication - VASC ANKLE BRACHIAL INDEX; Future Matthew's symptoms seem to be related to vascular claudication. It could be neurogenic. The best next investigation is to proceed with exercise challenge JOSE JUAN's. Again we are ordered through [facility] for insurance/financial reasons. Referrals: Xrays, exercise challenge JOSE JUAN's Medications prescribed today: Diclofenac gel Follow up plan: Sports US guided right sacroiliac joint injection, inferior and superior pole and separate appointment to review all of the tests. Severity of problem(s): Moderate Risk of morbidity or complication from the condition and/or additional testing or treatment: low I spent approximately 35 minutes in seeing the patient, counseling about this problem and discussing the different treatment options available, reviewing the chart, imaging and preparing documentation. We discussed how to increase activity level. We discussed and demonstrated exercises as well. * Raoul Lundy MD - 07/27/2022 9:50 AM EDT Referred by: 67 year old female by insurance company Chief Complaint Patient presents with Lower Back - Pain, Follow-up Patient is in today for her R SI joint. She is also in today for her R SI joint USG injection 3 week follow-up. She states her pain is. She states her pain is dull and not a constant pain anymore butshe sometimes gets a sharp pain if she bends the wrong way. She states she would like to come back and see you for her bilateral knee pain after her shoulder surgery. She states her pain at rest is a 2/10 and when active her pain is a 7/10. Location: R SI joint Quality: dull pain, sharp with bending wrong Duration: years NSAIDs? no Analgesics? Oxcycodone Other pain modalities? Ice, pillow, gel for knees Physical therapy? Previously Chiropractic? Previously Injections? Previously Xrays? 09/16/2021- lumbar spine MRI? 11/12/21-lumbar spine CT? no Bowel or bladder dysfunction? Bladder tie up and needs a new one Numbness or tingling? Feet- burning Weakness? Bilateral legs- R hip and knee replacement,calves Patient occupation, sport or other pertinent activity: disability, relaxing, daily chores Treatment performed or prescribed at last visit? 06/24 R SI joint US guided injection. Response to treatment since last visit? She states her pain is a little better. She states the injection has provided 20 % pain relief. Current Outpatient Medications: albuterol 108 (90 Base) MCG/ACT Aero Soln inhaler, Inhale 2 puffs every 6 hours as needed for Wheezing., Disp: 1 Inhaler, Rfl: 11 amLODIPine 5 MG tablet, Take 5 mg by mouth daily., Disp: , Rfl: budesonide-formoterol (SYMBICORT) 160-4.5 mcg/puff Aerosol inhaler, Inhale 2 puffs 2 times daily. Rinse mouth after use, Disp: 1 Inhaler, Rfl: 11 clonazePAM 1 MG PO TABS, take 1 Tab by mouth at bedtime., Disp: , Rfl: furOSEmide 20 MG tablet, Take 20 mg by mouth daily., Disp: , Rfl: hydrocodone-acetaminophen 5-500 MG PO TABS, take 1 Tab by mouth every 6 hours as needed for Pain. (Patient not taking: Reported on 06/27/2019), Disp: 60 Tab, Rfl: 0 ipratropium 0.02 % Solution inhalation solution, Take 0.5 mg by nebulization 4 times daily. PRN, Disp: , Rfl: lisinopril 20 MG PO TABS, take 1 Tab by mouth 2 times daily., Disp: , Rfl: Melatonin 5 MG capsule, Take 5 mg by mouth. 1 tablet at night, Disp: , Rfl: montelukast 10 MG Tab tablet, Take 10 mg by mouth daily., Disp: , Rfl: naloxone (Narcan) 4 MG/0.1ML, 1 spray by Nasal route once. [place] into the nose as directed. Call 911. If no response in 2 minutes use a new nasal spray in other nostril. Repeat until help arrives. Ifneeded., Disp: , Rfl: oxyCODONE 5 MG PO TABS, take 1-2 Tabs by mouth every 3 hours as needed (if taking oral medications). (Patient not taking: Reported on 06/10/2022), Disp: 60 Tab, Rfl: 0 oxycodone-acetaminophen 10-325 MG per tablet, Take 1 tablet by mouth. 6 times a day, Disp: , Rfl: ropinirole 1 MG PO TABS, Take 2 tablets by mouth every evening. , Disp: , Rfl: sertraline 100 MG Tab, take 100 mg by mouth daily.., Disp: , Rfl: tiotropium 18 MCG inhalation capsule, Inhale 18 mcg daily., Disp: , Rfl: traZODone 50 MG tablet, Take 50 mg by mouth daily., Disp: , Rfl: Family History Problem Relation Age of Onset Cancer- Other Mother skin Breast Cancer Mother Diabetes Father Heart Disease - Other Father Myocardial Infarction Father Social History Tobacco Use Smoking status: Never Smoker Smokeless tobacco: Never Used Substance Use Topics Alcohol use: Not Currently Comment: rarely Past Surgical History: Procedure Laterality Date NECK SURGERY N/A 02/2021 KNEE REPLACEMENT Right 2016 NECK SURGERY 2014 THORACOSCOPY LUNG PLEURA DIAGNOSTIC 12/13/2011 Laterality: N/A; Surgeon: Blu Donaldson MD;; Location: [facility] OR RESECTION LUNG WEDGE THORACOSCOPIC INITIAL 12/13/2011 Laterality: N/A; Surgeon: Blu Donaldson MD;; Location: [facility] OR THORACOTOMY EXPLORATION 12/13/2011 Laterality: N/A; Surgeon: Blu Donaldson MD;; Location: [facility] MAIN OR LOBECTOMY LUNG THORACOSCOPIC 12/13/2011 Laterality: N/A; Surgeon: Blu Donaldson MD;; Location: [facility] MA[facility] OR KNEE ARTHROSCOPY Left 2011 BRONCHOSCOPY FLEXIBLE DIAGNOSTIC 09/27/2011 Laterality: Midline; Surgeon: Blu Donaldson MD; Bronch/ebus zafar wants to do as first caseon 09/27/11; Location: [facility] OR ULTRASOUND ENDOBRONCHIAL (EBUS) DURING BRONCHOSCOPY ADD-ON PX 09/27/2011 Laterality: N/A; Surgeon: Blu Donaldson MD;; [facility] BACK SURGERY BLADDER SUSPENSION FOOT SURGERY HIP SURGERY Right HYSTERECTOMY ROTATOR CUFF REPAIR VEIN STRIPPING Left There were no vitals filed for this visit. Constitutional No fevers, chills or sweats, unintentional weight gain or weight loss, night pain, or night sweats except as per HPI. Cardiovascular No recent chest pain or palpitations. No claudication. No new or worsening lower extremity edema except as per HPI. Respiratory No new or worsening shortness of breath, dyspnea on exertion, orthopnea or paroxysmal nocturnal dyspnea except as per HPI. Gastrointestinal No recent heartburn or stomach upset, no history of ulcers except as per HPI. Musculoskeletal No joint pain, stiffness, or weakness except as per HPI. Endocrine No polyphagia, polydypsia, or polyuria. Hematologic No known or recent anemia, no excessive bleeding. Rheumatologic No history or currently active autoimmune or rheumatologic disease except as per HPI. Integumentary No new or relevant rashes or lesions except as per HPI. Neurologic No numbness, tingling, or weakness into her distal extremities except as per HPI. Constitutional Normal No acute distress. Well nourished. Well developed. Head/Face Normal Facial features - Normal. Eyebrows - Normal. Skull - Normal. Hair and scalp - Normal. Eyes Normal General - Right: Normal, Left: Normal. Lids/external - Right: Normal, Left: Normal. Conjunctiva - Right: Normal, Left: Normal. Ears Normal Inspection - Right: Normal, Left: Normal. Pinna - Right: Normal, Left: Normal. Nasopharynx Normal External nose - Normal. Nares - Right: Normal. Nasal Mucosa - Normal. Lips/teeth/gums - Normal. Buccal mucosa - Normal. Neck Exam Normal Inspection - Normal. Range of motion - Normal. Neck Exam Comments Supple. Respiratory Normal Inspection - Normal. Cough - Absent. Effort - Normal. Cardiovascular Normal Heart rate - Regular rate. Vascular Normal Pulses - Radial: Normal, Brachial: Normal, Dorsalis pedis: Normal, Posterior tibial: Normal. Capillary refill - Less than 2 seconds. Skin * Rash - Description: none. Extremity Normal No Edema. No Calf tenderness. Diabetic Foot Screen Normal Pulses - Dorsalis pedis: Normal, Posterior tibial: Normal. Neurological Normal Level of consciousness - Normal. Orientation - Normal. Memory - Normal. Psychiatric Normal No agitation. Appropriate mood and affect. Appropriate affect. Normal insight. Normal judgment. Lumbar spine Inspection: No erythema, ecchymosis, swelling or deformity. No open wounds. NVID Left foot/ankle Inspection: No erythema, ecchymosis, swelling . No open wounds EXCEPT claw toe deformity noted involving the 2nd digit, 1st digit obvious osteophyte formation at the MTP. Palpation: Non-tender to the medial malleolus, lateral malleolus, base of the 5th metatarsal, anterior joint line, anterior tibialis tendon, posterior tibialis tendon, FHL, FDL, EDL, EDB, Achilles atthe watershed or insertion, retrocalcaneal bursa, infracalcaneal tubercle, ATF, CF or Deltoid ligament. No tenderness to the Lis-Franc or Chopart joint lines, metatarsals or MTPJ s. ROM: dorsiflexion 30, plantarflexion 30, inversion 15 and eversion 15 at the ankle. Full ROM of themid- and forefoot. Laxity: No laxity with ATFL drawer testing. No laxity to the CF or Deltoid ligaments. Strength: dorsiflexion 5/5, plantar flexion 5/5, inversion 5/5 and eversion 5/5. Active resisted isolation of the posterior tibialis does not cause pain, active resisted isolation of the peroneus brevis does not cause pain. Special Maneuvers: Negative talar tilt. Negative ankle squeeze. Neurovascularly intact distally. Right foot/ankle Inspection: No erythema, ecchymosis, swelling or deformity. No open wounds EXCEPT bunionette deformity. Palpation: Non-tender to the medial malleolus, lateral malleolus, base of the 5th metatarsal, anterior joint line, anterior tibialis tendon, posterior tibialis tendon, FHL, FDL, EDL, EDB, Achilles atthe watershed or insertion, retrocalcaneal bursa, infracalcaneal tubercle, ATF, CF or Deltoid ligament. No tenderness to the Lis-Franc or Chopart joint lines, metatarsals or MTPJ s. ROM: dorsiflexion 30, plantarflexion 30, inversion 15 and eversion 15 at the ankle. Full ROM of themid- and forefoot. Laxity: No laxity with ATFL drawer testing. No laxity to the CF or Deltoid ligaments. Strength: dorsiflexion 5/5, plantar flexion 5/5, inversion 5/5 and eversion 5/5. Active resisted isolation of the posterior tibialis does not cause pain, active resisted isolation of the peroneus brevis does not cause pain. Special Maneuvers: Negative talar tilt. Negative ankle squeeze. Neurovascularly intact distally. Left knee Inspection: No erythema, ecchymosis, swelling or deformity. No open wounds. Palpation: Medial and lateral joint line tenderness, small effusion. ROM: Flex 120, ext -5 Laxity: No increased laxity with varus/valgus stress test, mushtaq s, anterior or posterior drawer as compared to the contralateral side. Strength: Intact active flexion and extension of the knee Right knee Inspection: No erythema, ecchymosis, swelling or deformity. No open wounds. Well healed mid-line scar. Palpation: Medial and lateral joint line tenderness, small effusion. ROM: Flex 120, ext -5 Laxity: No increased laxity with varus/valgus stress test, mushtaq s, anterior or posterior drawer as compared to the contralateral side. Strength: Intact active flexion and extension of the knee Notes reviewed from 06/24/22 Independent interpretation: XR right foot reviewed from 07/15/20 - pes cavus, prior 5th MTP removal, screw fixation in 4th MT head. Mild mid-foot OA. Well preserved tibiotalar joint. History obtained from patient. ASSESSMENT and PLAN: 1. Osteoarthritis of both sacroiliac joints 2. Pain of both sacroiliac joints Matthew responded well to prior SI joint injection, but she did not have the expected response while anesthetized. Given this, it is possible that she requires injection to the superior and inferior aspect of the joint. We are scheduling a US guided injection to the right sacroiliac joint, this time at the superior and inferior poles. 3. Acute pain of both knees - XR KNEE RIGHT 3 VIEWS; Future - XR KNEES BILATERAL STANDING 1 VIEW; Future - XR KNEE LEFT 3 VIEWS We will assess for any hardware complication on the right and for the degree of OA in the left. We are ordering these to be done at [facility] due to insurance/financial reasons. 4. Acquired claw toe of left foot - XR FOOT LEFT 3 VIEWS; Future 5. 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 Shoe modification and orthotics are the conservative options. Surgical options were discussed. We will obtain updated radiographs and further assess her degree of OA and deformity. 6. Bunionette of right foot - XR FOOT RIGHT 3 VIEWS; Future Has had a previous procedure to remove bunionette. The angulation has returned although the 5th MTPhas been removed. We will obtain new radiographs to assess this alignment. 7. Intermittent claudication - VASC ANKLE BRACHIAL INDEX; Future Matthew's symptoms seem to be related to vascular claudication. It could be neurogenic. The best next investigation is to proceed with exercise challenge JOSE JUAN's. Again we are ordered through [facility] for insurance/financial reasons. Referrals: Xrays, exercise challenge JOSE JUAN's Medications prescribed today: Diclofenac gel Follow up plan: Sports US guided right sacroiliac joint injection, inferior and superior pole and separate appointment to review all of the tests. Severity of problem(s): Moderate Risk of morbidity or complication from the condition and/or additional testing or treatment: low I spent approximately 35 minutes in seeing the patient, counseling about this problem and discussing the different treatment options available, reviewing the chart, imaging and preparing documentation. We discussed how to increase activity level. We discussed and demonstrated exercises as well. I have reviewed, edited and added to the above note and agree with those findings. Additions if any: Raoul Lundy MD, CAQSM [facility] Comprehensive Ophthalmologist - [facility] documented in this encounter[facility] History of Present illness Narrative* Allie Ray MD - 07/22/2022 1:30 PM EDT Urogynecology and Reconstructive Pelvic Surgery Procedural Note Urodynamics Indications: Overactive bladder with urge urinary incontinence. Plan: 1. We had a 25-minute discussion with 50% in [id number] counseling regarding today s findings and options. 2. She elects to trial a different medication and was prescribed Trospium 20 mg BID. In addition, she was counseled on the importance of conservative treatment measures including managing po fluid intake and bladder irritants. She was advised to begin Biotene or lozenges in lieu of sipping on water throughout the day. 3. She is considering surgical repair of the prolapse and will call the office to arrange. Complex urodynamics were performed under sterile conditions. We discussed benefits of testing to include more formalized understanding of detrusor function, risks to procedure including slight discomfort that should resolve within 1 day, and risk of urinary tract infection. Per ACOG guidelines antib iotic prophylaxis was not provided, but she agrees to call the office if she has dysuria or continued discomfort for greater than 1 day. Graphics and formal report are scanned into the media section of her chart. The patient was in the semi-recumbent position and was infused with room-temperature sterile water at 60 cc per minute. Uroflow: Voided volume: 0 cc Pattern: na Max flow rate: na ml/sec PVR by straight cath: 200 cc Complex cystometrogram: Capacity: 400 cc Compliance: wnl Uninhibited detrusor contractions: absent Leak point pressure: 0 EMG activity: appropriate Urethral Pressure Profile: Maximum urethral closure pressure: 121 cmH20 Pressure Flow Micturation study: Voided volume: 340 cc Pattern: continuous Detrusor contraction: absent Impression: Neurogenic bladder, WAYNE with removal of catheter at full capacity. Following testing we reviewed that her overall her rectocele is not bothersome to her. She does notexperience stress incontinence at home. Her biggest concern is frequency and nocturia. We reviewed options of continued medications versus sacral nerve stimulation. In the setting of now known neurogenic bladder I would recommend sacral nerve stimulation. She is agreeable to this plan. She is planning shoulder surgery in July and will consider timing based her on this surgery. She will be contacted by the office for scheduling. documented in this [id number] History of Present illness Narrative* Felix Maguire, ATC - 06/24/2022 1:40 PM EDTAssociated Order(s): LARGE JOINT/BURSA INJECTION AND/OR ASPIRATION Matthew arrives with pain in her bilateral SI joints. She states the right is the worst. She would like to move forward with injection. LARGE JOINT/BURSA INJECTION AND/OR ASPIRATION Date/Time: 06/24/2022 1:40 PM Supporting Documentation Indications: pain and osteoarthritis Procedure Details: Location: sacroiliac - R sacroiliac joint Local Anesthetic: bupivacaine 0.5% and lidocaine 1% Total Local Anesthetic: 4 mLs Guidance: ultrasound Ultrasound probe size: 4 mHz curvilinear Images were saved electronically. Needle size: 22 G Needle Length: 4.0 inch Approach: posterior Medication Verification: I have personally verified and performed the final check of the medication(s) used in this procedure prior to administration. The following items were included during the verification process for medication(s) administered: drug name, strength, volume, expiration, physical integrity and appearance of the medication(s). Medications administered: 1 mL bupivacaine 0.5 %; 2 mL triamcinolone 40 MG/ML; 4 mL lidocaine 10 mg/mL; 5 mL sodium chloride (PF) 0.9 %; 4 mg dexAMETHasone 4 MG/ML Patient tolerance: patient tolerated the procedure well with no immediate complications Pre-Procedure Details The attending physician was present for the entire procedure. Consent: Consent was obtained prior to the procedure after discussion of the risks, benefits and alternatives, and expected outcomes were discussed with the patient. The possibilities of reaction to medication, bleeding, infection, the need for additional procedures, failure to diagnosis a condition, and creating a complication requiring operation were discussed with the patient. The patient concurred with the proposed plan, giving consent. Preparation: Patient was prepped in the usual sterile fashion. The patient was prepped with Chloraprep. Patient counseled on expected outcome and continued treatment and healing process. Patient tolerated the procedure well and was discharged in good condition with post-procedure instructions and anticipatory guidance regarding possible adverse reactions after the procedure including but not limited to infection, injection site flare reaction, allergic reaction. If corticosteroids were used then specifically the patient may develop hyperglycemia, facial flushing, heart palpitations amongst many other side effects associated with corticosteroids. Patient received no pain relief while anesthestized. * Raoul Lundy MD - 06/24/2022 1:40 PM EDT Matthew arrives with pain in her bilateral SI joints. She states the right is the worst. She would like to move forward with injection. LARGE JOINT/BURSA INJECTION AND/OR ASPIRATION Date/Time: 06/24/2022 1:40 PM Supporting Documentation Indications: pain and osteoarthritis Procedure Details: Location: sacroiliac - R sacroiliac joint Local Anesthetic: bupivacaine 0.5% and lidocaine 1% Total Local Anesthetic: 4 mLs Guidance: ultrasound Ultrasound probe size: 4 mHz curvilinear Images were saved electronically. Needle size: 22 G Needle Length: 4.0 inch Approach: posterior Medication Verification: I have personally verified and performed the final check of the medication(s) used in this procedure prior to administration. The following items were included during the verification process for medication(s) administered: drug name, strength, volume, expiration, physical integrity and appearance of the medication(s). Medications administered: 1 mL bupivacaine 0.5 %; 2 mL triamcinolone 40 MG/ML; 4 mL lidocaine 10 mg/mL; 5 mL sodium chloride (PF) 0.9 %; 4 mg dexAMETHasone 4 MG/ML Patient tolerance: patient tolerated the procedure well with no immediate complications Pre-Procedure Details The attending physician was present for the entire procedure. Consent: Consent was obtained prior to the procedure after discussion of the risks, benefits and alternatives, and expected outcomes were discussed with the patient. The possibilities of reaction to medication, bleeding, infection, the need for additional procedures, failure to diagnosis a condition, and creating a complication requiring operation were discussed with the patient. The patient concurred with the proposed plan, giving consent. Preparation: Patient was prepped in the usual sterile fashion. The patient was prepped with Chloraprep. Patient counseled on expected outcome and continued treatment and healing process. Patient tolerated the procedure well and was discharged in good condition with post-procedure instructions and anticipatory guidance regarding possible adverse reactions after the procedure including but not limited to infection, injection site flare reaction, allergic reaction. If corticosteroids were used then specifically the patient may develop hyperglycemia, facial flushing, heart palpitations amongst many other side effects associated with corticosteroids. Patient received no pain relief while anesthestized. I have reviewed, edited and added to the above note and agree with those findings. Additions if any: Raoul Lundy MD, [facility] Comprehensive Ophthalmologist - [facility] documented in this encounterSelect [facility] History of Present illness Narrative* Mica Tejeda - 06/10/2022 9:20 AM EDT Referred by: 67 year old female by insurance company Chief Complaint Patient presents with Lower Back - Pain Patient is in today for lower back pain. The patient states that she has had three previous lower back surgeries and her doctor recommends that she not have anymore surgeries on her lower back so shewas wondering if you would recommend injections. She states she has had some previously that may have been regular injections not used with ultrasound but she is not sure. Patient states her pain is sharp and can be constant. She states that she is in pain first thing in the morning. She states herpain occurs when she is standing for long periods of time. She states that her pain also occurs when she is bending down. Patient states that she wanted you to know that she has neck pain as well andwas not sure if that pain was contributing to her lower back pain or not. 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 She states she props her legs up on a pillow and that helps a little with her back pain. She also states it is hard for her to sit for long periods of time. Location: Lower back Quality: sharp and sometimes constant Duration: years NSAIDs? no Analgesics? Oxcycodone Other pain modalities? Ice, heat, pillow for bilateral legs Physical therapy? Previously Chiropractic? previously Injections? previously Xrays? 09/16/2021- lumbar spine MRI? 11/12/21-lumbar spine CT? no Bowel or bladder dysfunction? Bladder tie up and needs a new one Numbness or tingling? Hands Weakness? Bilateral legs- R hip and knee replacement Patient occupation, sport or other pertinent activity: disability, relaxing, daily chores Current Outpatient Medications: albuterol 108 (90 Base) MCG/ACT Aero Soln inhaler, Inhale 2 puffs every 6 hours as needed for Wheezing., Disp: 1 Inhaler, Rfl: 11 budesonide-formoterol (SYMBICORT) 160-4.5 mcg/puff Aerosol inhaler, Inhale 2 puffs 2 times daily. Rinse mouth after use, Disp: 1 Inhaler, Rfl: 11 clonazePAM 1 MG PO TABS, take 1 Tab by mouth at bedtime., Disp: , Rfl: furOSEmide 20 MG tablet, Take 20 mg by mouth daily., Disp: , Rfl: hydrocodone-acetaminophen 5-500 MG PO TABS, take 1 Tab by mouth every 6 hours as needed for Pain. (Patient not taking: Reported on 06/27/2019), Disp: 60 Tab, Rfl: 0 lisinopril 20 MG PO TABS, take 1 Tab by mouth 2 times daily., Disp: , Rfl: montelukast 10 MG Tab tablet, Take 10 mg by mouth daily., Disp: , Rfl: oxyCODONE 5 MG PO TABS, take 1-2 Tabs by mouth every 3 hours as needed (if taking oral medications)., Disp: 60 Tab, Rfl: 0 ropinirole 1 MG PO TABS, Take 2 tablets by mouth every evening. , Disp: , Rfl: sertraline 100 MG Tab, take 100 mg by mouth daily.., Disp: , Rfl: tiotropium 18 MCG inhalation capsule, Inhale 18 mcg daily., Disp: , Rfl: traZODone 50 MG tablet, Take 50 mg by mouth daily., Disp: , Rfl: Family History Problem Relation Age of Onset Cancer- Other Mother skin Breast Cancer Mother Diabetes Father Heart Disease - Other Father Myocardial Infarction Father Social History Tobacco Use Smoking status: Never Smoker Smokeless tobacco: Never Used Substance Use Topics Alcohol use: No Past Surgical History: Procedure Laterality Date KNEE REPLACEMENT Right 2016 NECK SURGERY 2014 THORACOSCOPY LUNG PLEURA DIAGNOSTIC 12/13/2011 Laterality: N/A; Surgeon: Blu Donaldson MD;; Location: [facility] OR RESECTION LUNG WEDGE THORACOSCOPIC INITIAL 12/13/2011 Laterality: N/A; Surgeon: Blu Donaldson MD;; Location: [facility] OR THORACOTOMY EXPLORATION 12/13/2011 Laterality: N/A; Surgeon: Blu Donaldson MD;; Location: [facility] OR LOBECTOMY LUNG THORACOSCOPIC 12/13/2011 Laterality: N/A; Surgeon: Blu Donaldson MD;; Location: [facility] OR KNEE ARTHROSCOPY Left 2011 BRONCHOSCOPY FLEXIBLE DIAGNOSTIC 09/27/2011 Laterality: Midline; Surgeon: Blu Donaldson MD; Bronch/ebus Dr donaldson wants to do as first caseon 09/27/11; Location: [facility] MA[facility] OR ULTRASOUND ENDOBRONCHIAL (EBUS) DURING BRONCHOSCOPY ADD-ON PX 09/27/2011 Laterality: N/A; Surgeon: Blu Donaldson MD;; Location: [facility] OR BACK SURGERY BLADDER SUSPENSION FOOT SURGERY HIP SURGERY Right HYSTERECTOMY ROTATOR CUFF REPAIR VEIN STRIPPING Left There were no vitals filed for this visit. Constitutional No fevers, chills or sweats, unintentional weight gain or weight loss, night pain, or night sweats except as per HPI. Cardiovascular No recent chest pain or palpitations. No claudication. No new or worsening lower extremity edema except as per HPI. Respiratory No new or worsening shortness of breath, dyspnea on exertion, orthopnea or paroxysmal nocturnal dyspnea except as per HPI. Gastrointestinal No recent heartburn or stomach upset, no history of ulcers except as per HPI. Musculoskeletal No joint pain, stiffness, or weakness except as per HPI. Endocrine No polyphagia, polydypsia, or polyuria. Hematologic No known or recent anemia, no excessive bleeding. Rheumatologic No history or currently active autoimmune or rheumatologic disease except as per HPI. Integumentary No new or relevant rashes or lesions except as per HPI. Neurologic No numbness, tingling, or weakness into her distal extremities except as per HPI. Constitutional Normal No acute distress. Well nourished. Well developed. Head/Face Normal Facial features - Normal. Eyebrows - Normal. Skull - Normal. Hair and scalp - Normal. Eyes Normal General - Right: Normal, Left: Normal. Lids/external - Right: Normal, Left: Normal. Conjunctiva - Right: Normal, Left: Normal. Ears Normal Inspection - Right: Normal, Left: Normal. Pinna - Right: Normal, Left: Normal. Nasopharynx Normal External nose - Normal. Nares - Right: Normal. Nasal Mucosa - Normal. Lips/teeth/gums - Normal. Buccal mucosa - Normal. Neck Exam Normal Inspection - Normal. Range of motion - Normal. Neck Exam Comments Supple. Respiratory Normal Inspection - Normal. Cough - Absent. Effort - Normal. Cardiovascular Normal Heart rate - Regular rate. Vascular Normal Pulses - Radial: Normal, Brachial: Normal, Dorsalis pedis: Normal, Posterior tibial: Normal. Capillary refill - Less than 2 seconds. Skin * Rash - Description: none. Extremity Normal No Edema. No Calf tenderness. Diabetic Foot Screen Normal Pulses - Dorsalis pedis: Normal, Posterior tibial: Normal. Neurological Normal Level of consciousness - Normal. Orientation - Normal. Memory - Normal. Psychiatric Normal No agitation. Appropriate mood and affect. Appropriate affect. Normal insight. Normal judgment. * Felix Maguire ATC - 06/10/2022 9:20 AM EDT Lumbar spine Inspection: No erythema, ecchymosis, swelling or deformity. No open wounds. Normal lumbar lordosis.No evidence of marked scoliosis. Palpation: Non-tender to the spinous processes, paraspinals. Tender to bilateral SI joints. ROM: moderate limitation in flexion, extension, lateral bending and rotation. Strength: 5/5 and symmetric bilateral hip flexion, knee flexion/extension, ankle dorsiflexion/plantar flexion and EHL Sensation: Intact and symmetric to soft touch for the bilateral L3-S1 dermatomes. Reflexes: Intact and symmetric bilateral patellar and Achilles. Special Maneuvers: Negative straight leg raise and crossover sign. FRANKI positive NIR positive Vascular: Intact and symmetric dorsalis pedis and posterior tibial pulses. XR lumbar spine 06/25/21 reviewed. [facility] reviewed. MRI Lumbar spine 11/12/21 - 1. Posterior decompression and fixation at L2 through S1 with interbody spacer at L4/L5 and bony fusion of the L5/S1 disc space. 2. 7.0 x 2.8 x 2.0 cm heterogeneous fluid collection within the laminectomy defects at L3 through L5 causing no significant effacement of the dorsal thecal sac, compatible with postoperative seroma. 3. [id number]-[id number] central canal stenosis at L1/L2 due to grade 1 retrolisthesis, short pedicles, facet arthropathy and thickening of the ligamentum flavum. 4. Butxskwy-ys-crnlbc bilateral neural foraminal stenosis at L1/L2 due to disc space narrowing, grade 1 retrolisthesis and facet arthropathy. Dr. Fraga's notes reviewed from 2021. History obtained from patient. ASSESSMENT and PLAN 1. Pain of both sacroiliac joints 2. Osteoarthritis of both sacroiliac joints 3. Status post lumbar spinal fusion 4. Status post arthroscopy of hip I believe the pain Matthew is experiencing is originating from her bilateral SI joints. She was more tender to the right side during examination I will begin treatment with a US sports right SI joint injection. This will help me distinguish if the pain is originating from the joint by alleviating her pain while anesthestized. 5. Primary osteoarthritis of left hip Doesn't seem to be the main pain generator. 6. Arthralgia, unspecified joint - SEDIMENTATION RATE, AUTOMATED; Future - C REACTIVE PROTEIN; Future - URIC ACID; Future - RHEUMATOID FACTOR; Future - CYCLIC CITRULLINATE PEPTIDE AB; Future - SIERRA MULTIPLEX SCRN WITH REFLEX; Future Lab orders placed. 7. Cubital tunnel syndrome on left - AMB REFERRAL TO [facility]YSICAL MEDICINE REHAB [facility] upper left warranted. Referrals: [facility] upper left Medications prescribed today: none Follow up plan: Sports US guided right sacroiliac injection Complexity of problem(s): mild Risk of morbidity from additional testing or treatment: low We discussed the natural history of this problem and usual treatments. We discussed possible treatment options including conservative, aggressive, invasive and non-invasive. These options were explained in detail. The patient and/or guardian agreed with the above assessment and plan. Differential diagnoses of back pain were considered including but not limited to degenerative change, internal derangement, fracture and any other severely limiting injury. * Raoul Lundy MD - 06/10/2022 9:20 AM EDT Referred by: 67 year old female by insurance company Chief Complaint Patient presents with Lower Back - Pain Patient is in today for lower back pain. The patient states that she has had three previous lower back surgeries and her doctor recommends that she not have anymore surgeries on her lower back so shewas wondering if you would recommend injections. She states she has had some previously that may have been regular injections not used with ultrasound but she is not sure. Patient states her pain is sharp and can be constant. She states that she is in pain first thing in the morning. She states herpain occurs when she is standing for long periods of time. She states that her pain also occurs when she is bending down. Patient states that she wanted you to know that she has neck pain as well andwas not sure if that pain was contributing to her lower back pain or not. 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 She states she props her legs up on a pillow and that helps a little with her back pain. She also states it is hard for her to sit for long periods of time. Location: Lower back Quality: sharp and sometimes constant Duration: years NSAIDs? no Analgesics? Oxcycodone Other pain modalities? Ice, heat, pillow for bilateral legs Physical therapy? Previously Chiropractic? previously Injections? previously Xrays? 09/16/2021- lumbar spine MRI? 11/12/21-lumbar spine CT? no Bowel or bladder dysfunction? Bladder tie up and needs a new one Numbness or tingling? Hands Weakness? Bilateral legs- R hip and knee replacement Patient occupation, sport or other pertinent activity: disability, relaxing, daily chores Current Outpatient Medications: albuterol 108 (90 Base) MCG/ACT Aero Soln inhaler, Inhale 2 puffs every 6 hours as needed for Wheezing., Disp: 1 Inhaler, Rfl: 11 budesonide-formoterol (SYMBICORT) 160-4.5 mcg/puff Aerosol inhaler, Inhale 2 puffs 2 times daily. Rinse mouth after use, Disp: 1 Inhaler, Rfl: 11 clonazePAM 1 MG PO TABS, take 1 Tab by mouth at bedtime., Disp: , Rfl: furOSEmide 20 MG tablet, Take 20 mg by mouth daily., Disp: , Rfl: hydrocodone-acetaminophen 5-500 MG PO TABS, take 1 Tab by mouth every 6 hours as needed for Pain. (Patient not taking: Reported on 06/27/2019), Disp: 60 Tab, Rfl: 0 lisinopril 20 MG PO TABS, take 1 Tab by mouth 2 times daily., Disp: , Rfl: montelukast 10 MG Tab tablet, Take 10 mg by mouth daily., Disp: , Rfl: oxyCODONE 5 MG PO TABS, take 1-2 Tabs by mouth every 3 hours as needed (if taking oral medications)., Disp: 60 Tab, Rfl: 0 ropinirole 1 MG PO TABS, Take 2 tablets by mouth every evening. , Disp: , Rfl: sertraline 100 MG Tab, take 100 mg by mouth daily.., Disp: , Rfl: tiotropium 18 MCG inhalation capsule, Inhale 18 mcg daily., Disp: , Rfl: traZODone 50 MG tablet, Take 50 mg by mouth daily., Disp: , Rfl: Family History Problem Relation Age of Onset Cancer- Other Mother skin Breast Cancer Mother Diabetes Father Heart Disease - Other Father Myocardial Infarction Father Social History Tobacco Use Smoking status: Never Smoker Smokeless tobacco: Never Used Substance Use Topics Alcohol use: No Past Surgical History: Procedure Laterality Date KNEE REPLACEMENT Right 2016 NECK SURGERY 2014 THORACOSCOPY LUNG PLEURA DIAGNOSTIC 12/13/2011 Laterality: N/A; Surgeon: Blu Donaldson MD;; Location: [facility] OR RESECTION LUNG WEDGE THORACOSCOPIC INITIAL 12/13/2011 Laterality: N/A; Surgeon: Blu Donaldson MD;; Location: [facility] OR THORACOTOMY EXPLORATION 12/13/2011 Laterality: N/A; Surgeon: Blu Donaldson MD;; Location: [facility] OR LOBECTOMY LUNG THORACOSCOPIC 12/13/2011 Laterality: N/A; Surgeon: Blu Donaldson MD;; Location: [facility] OR KNEE ARTHROSCOPY Left 2011 BRONCHOSCOPY FLEXIBLE DIAGNOSTIC 09/27/2011 Laterality: Midline; Surgeon: Blu Donaldson MD; Bronch/ebus Dr donaldson wants to do as first caseon 09/27/11; Location: [facility] OR ULTRASOUND ENDOBRONCHIAL (EBUS) DURING BRONCHOSCOPY ADD-ON PX 09/27/2011 Laterality: N/A; Surgeon: Blu Donaldson MD;; Location: [facility] OR BACK SURGERY BLADDER SUSPENSION FOOT SURGERY HIP SURGERY Right HYSTERECTOMY ROTATOR CUFF REPAIR VEIN STRIPPING Left There were no vitals filed for this visit. Constitutional No fevers, chills or sweats, unintentional weight gain or weight loss, night pain, or night sweats except as per HPI. Cardiovascular No recent chest pain or palpitations. No claudication. No new or worsening lower extremity edema except as per HPI. Respiratory No new or worsening shortness of breath, dyspnea on exertion, orthopnea or paroxysmal nocturnal dyspnea except as per HPI. Gastrointestinal No recent heartburn or stomach upset, no history of ulcers except as per HPI. Musculoskeletal No joint pain, stiffness, or weakness except as per HPI. Endocrine No polyphagia, polydypsia, or polyuria. Hematologic No known or recent anemia, no excessive bleeding. Rheumatologic No history or currently active autoimmune or rheumatologic disease except as per HPI. Integumentary No new or relevant rashes or lesions except as per HPI. Neurologic No numbness, tingling, or weakness into her distal extremities except as per HPI. Constitutional Normal No acute distress. Well nourished. Well developed. Head/Face Normal Facial features - Normal. Eyebrows - Normal. Skull - Normal. Hair and scalp - Normal. Eyes Normal General - Right: Normal, Left: Normal. Lids/external - Right: Normal, Left: Normal. Conjunctiva - Right: Normal, Left: Normal. Ears Normal Inspection - Right: Normal, Left: Normal. Pinna - Right: Normal, Left: Normal. Nasopharynx Normal External nose - Normal. Nares - Right: Normal. Nasal Mucosa - Normal. Lips/teeth/gums - Normal. Buccal mucosa - Normal. Neck Exam Normal Inspection - Normal. Range of motion - Normal. Neck Exam Comments Supple. Respiratory Normal Inspection - Normal. Cough - Absent. Effort - Normal. Cardiovascular Normal Heart rate - Regular rate. Vascular Normal Pulses - Radial: Normal, Brachial: Normal, Dorsalis pedis: Normal, Posterior tibial: Normal. Capillary refill - Less than 2 seconds. Skin * Rash - Description: none. Extremity Normal No Edema. No Calf tenderness. Diabetic Foot Screen Normal Pulses - Dorsalis pedis: Normal, Posterior tibial: Normal. Neurological Normal Level of consciousness - Normal. Orientation - Normal. Memory - Normal. Psychiatric Normal No agitation. Appropriate mood and affect. Appropriate affect. Normal insight. Normal judgment. Lumbar spine Inspection: No erythema, ecchymosis, swelling or deformity. No open wounds. Normal lumbar lordosis.No evidence of marked scoliosis. Palpation: Non-tender to the spinous processes, paraspinals. Tender to bilateral SI joints. ROM: moderate limitation in flexion, extension, lateral bending and rotation. Strength: 5/5 and symmetric bilateral hip flexion, knee flexion/extension, ankle dorsiflexion/plantar flexion and EHL Sensation: Intact and symmetric to soft touch for the bilateral L3-S1 dermatomes. Reflexes: Intact and symmetric bilateral patellar and Achilles. Special Maneuvers: Negative straight leg raise and crossover sign. FRANKI positive NIR positive Vascular: Intact and symmetric dorsalis pedis and posterior tibial pulses. XR lumbar spine 06/25/21 reviewed. [facility] reviewed. MRI Lumbar spine 11/12/21 - 1. Posterior decompression and fixation at L2 through S1 with interbody spacer at L4/L5 and bony fusion of the L5/S1 disc space. 2. 7.0 x 2.8 x 2.0 cm heterogeneous fluid collection within the laminectomy defects at L3 through L5 causing no significant effacement of the dorsal thecal sac, compatible with postoperative seroma. 3. [id number] central canal stenosis at L1/L2 due to grade 1 retrolisthesis, short pedicles, facet arthropathy and thickening of the ligamentum flavum. 4. Wqujwqcm-br-tvwpiz bilateral neural foraminal stenosis at L1/L2 due to disc space narrowing, grade 1 retrolisthesis and facet arthropathy. Dr. Fraga's notes reviewed from 2021. History obtained from patient. ASSESSMENT and PLAN 1. Pain of both sacroiliac joints 2. Osteoarthritis of both sacroiliac joints 3. Status post lumbar spinal fusion 4. Status post arthroscopy of hip I believe the pain Matthew is experiencing is originating from her bilateral SI joints. She was more tender to the right side during examination I will begin treatment with a US sports right SI joint injection. This will help me distinguish if the pain is originating from the joint by alleviating her pain while anesthestized. 5. Primary osteoarthritis of left hip Doesn't seem to be the main pain generator. 6. Arthralgia, unspecified joint - SEDIMENTATION RATE, AUTOMATED; Future - C REACTIVE PROTEIN; Future - URIC ACID; Future - RHEUMATOID FACTOR; Future - CYCLIC CITRULLINATE PEPTIDE AB; Future - SIERRA MULTIPLEX SCRN WITH REFLEX; Future Lab orders placed. 7. Cubital tunnel syndrome on left - AMB REFERRAL TO [facility]YSICAL MEDICINE REHAB EMG upper left warranted. Referrals: EMG upper left Medications prescribed today: none Follow up plan: Sports US guided right sacroiliac injection Complexity of problem(s): mild Risk of morbidity from additional testing or treatment: low We discussed the natural history of this problem and usual treatments. We discussed possible treatment options including conservative, aggressive, invasive and non-invasive. These options were explained in detail. The patient and/or guardian agreed with the above assessment and plan. Differential diagnoses of back pain were considered including but not limited to degenerative change, internal derangement, fracture and any other severely limiting injury. I spent approximately 55 minutes in seeing the patient, counseling about this problem and discussing the different treatment options available, reviewing the chart, imaging and preparing documentation. We discussed how to increase activity level. We discussed and demonstrated exercises as well. I have reviewed, edited and added to the above note and agree with those findings. Additions if any: Raoul Lundy MD, [facility] Comprehensive Ophthalmologist - [facility] [address] [facility] [employer] documented in this [facility] History of Present illness Narrative* Jose Fraga MD - 04/05/2022 4:15 PM EDT Images from the original note were not included. Matthew Perez 1955 Impression/Plan: Problem List Items Addressed This Visit Other Status post lumbar spinal fusion L2-S1 Lumbar stenosis L1-2 with neurogenic claudication - Primary Status post cervical spinal fusion C4-T1 I again discussed her various pain components with her today at some length: 1. Her cervical spine is fused and unlikely to account for her radicular symptoms 2. She appears to have intrinsic left shoulder pathology 3. She has lumbar stenosis above a prior lumbar fusion. Surgery for her lumbar stenosis with extension of her fusion is a potential option however this would be a fairly extensive procedure with the risk of further adjacent segment disease. In any case she is opposed to consideration of further surgery. Return as requested for further surgical discussion of possible extension of her lumbar fusion. Chief Complaint Patient presents with Follow-up Patient is here today for her cervical CT results Clinical Findings: Mtathew Perez returns for follow-up evaluation after CT scan performed to evaluate the possibility of delayed union and contributing cervical pathology to her left shoulder pain. She also has ongoing difficulties with her low back with associated bilateral buttock pain which iscurrently scheduled for further evaluation by a new physician at [place] [id number]. She has her care and wants us to look after her neck and wants to follow-up in [place] for her low back. She reports an unusual episode of unexpected lateral tilting of her neck. This was not associated with pain but reports this was an involuntary single event. Her primary pain problem, aside from her low back, is pain about the left shoulder which is worse when she attempts to use the arm in space. She continues to note bilateral groin and anterior thigh pain which awakens her at night. She notesa sense of weakness in her lower extremities with marked limitation of standing and walking. She has difficulty arising from a seated position. She also has lesser low back and bilateral buttock pain which are constant. When shopping she uses a motorized wheelchair. She is status post 3 prior lumbar procedures performed in 2002, 2008, and 2017, most recently by Dr. Hummel at [place]. Following surgery she has had modest improvement. Recently she has attempted management with spinal cord stimulator performed approximately 2019 without improvement. She has been on ibuprofen in the remote past, relatively contraindicated because of heart disease. She has had GI distress with gabapentin. She has had various pain injections most recently preoperatively prior to her 2017 surgery. She recently attempted physical therapy for her low back which increased her pain. She tried this for 3 weeks. She previously has been able to tolerate exercise at the [facility] in the pool. From the standpoint of her neck she has otherwise generally done well. She has minimal neck pain and she has no significant upper extremity radicular pain aside from the left shoulder area pain, although she does note a general sense of heaviness through her upper extremities with some difficulty with bilateral shoulders. She underwent surgery 03/13/2021 for anterior cervical decompression, anterior cervical fusion C4-5 with plate and allograft. Past Medical History: Diagnosis Date Anxiety Arthritis osteo Asthma 08/23/2014 Cardiomyopathy (HCC) resolved (EF 45% per cath 09/21/2006; EF 55-60% per echo 04/16/2019). Depression Diastolic dysfunction mild per echo on 06/08/2019 Fibromyalgia, primary GERD (gastroesophageal reflux disease) patient denies Hypertension 04/01/2015 Migraines Obesity AYO (obstructive sleep apnea) cannot tolerate C-Pap Pneumonia x2 , had 2 pneumonia shots Restless legs syndrome Shoulder joint pain Spinal stenosis Varicose veins of both lower extremities Patient Active Problem List Diagnosis AYO (obstructive sleep apnea) Asthma Balance disorder Hypertension Protrusion of cervical intervertebral disc C4-5 with stenosis Brachial neuritis Lumbar pain Depression Pre-diabetes Dysphagia Cataract Migraine Bronchogenic cancer (HCC) Restless legs syndrome Tendinopathy of left rotator cuff Varicose vein History of cardiomyopathy Iron deficiency Obesity Difficulty walking Encounter for long-term use of opiate analgesic Varicose veins of lower extremities with complications Leg pain Status post lumbar spinal fusion L2-S1 Lumbar stenosis L1-2 with neurogenic claudication Spinal stenosis DDD (degenerative disc disease), lumbar Hip osteoarthritis Acute blood loss as cause of postoperative anemia S/P total hip arthroplasty Osteoarthritis of multiple joints Vertigo History of falling Rectocele Protrusion of cervical intervertebral disc C4-5 with stenosis Diastolic dysfunction Status post cervical spinal fusion C4-T1 Inguinal pain Urge urinary incontinence Cardiomyopathy (HCC) Outpatient Medications as of 04/05/2022 Medication Sig albuterol (PROVENTIL) 2.5 mg /3 mL (0.083 %) nebulizer solution Take 2.5 mg by nebulization daily as needed . albuterol (Ventolin HFA) 90 mcg/actuation inhaler Inhale 1 (one) puff every 6 (six) hours as neededfor wheezing . amLODIPine (NORVASC) 5 MG tablet Take 5 mg by mouth daily . Anoro Ellipta 62.5-25 mcg/actuation DsDv Inhale 2 puffs daily . beclomethasone (QVAR) 40 mcg/actuation inhaler Inhale 2 (two) puffs 2 (two) times a day Rinse mouth. budesonide-formoteroL (SYMBICORT) 80-4.5 mcg/actuation inhaler 1 puff . caffeine 200 mg Take 200 mg by mouth daily . clonazePAM (KLONOPIN) 1 MG tablet Take 1 mg by mouth 2 (two) times a day as needed . ipratropium-albuteroL (DUO-NEB) 0.5-2.5 mg/3 ml nebulizer Take 3 mL by nebulization every 6 (six) hours as needed for wheezing or shortness of breath . lisinopril (PRINIVIL,ZESTRIL) 20 MG tablet Take 20 mg by mouth every evening . melatonin 5 mg Tab Take 5 mg by mouth nightly . meloxicam (MOBIC) 7.5 MG tablet Take 7.5 mg by mouth daily . montelukast (SINGULAIR) 10 mg tablet Take 10 mg by mouth daily . NARCAN 4 mg/actuation [address] Administer 1 spray into one nostril for known or suspected opioid overdose. If patient worsens or does not respond, may repeat in 2-3 minutes. . (Patient not taking: Reported on 2022 .) oxyCODONE-acetaminophen (PERCOCET) 10-325 mg per tablet Take 2 tablets by mouth 3 (three) times a day as needed . rOPINIRole (REQUIP) 2 MG tablet Take 2 mg by mouth 3 (three) times a day Reasons: restless legs syndrome, an extreme discomfort in the calf muscles when sitting or lying down. SUMAtriptan (IMITREX) 100 MG tablet Take 1 (one) tablet (100 mg total) by mouth as needed for migraine. traZODone (DESYREL) 50 MG tablet Take 50 mg by mouth nightly . trospium (SANCTURA) 20 mg tablet Take 1 (one) tablet (20 mg total) by mouth 2 (two) times a day . Allergies: Duloxetine, Nsaids (non-steroidal anti-inflammatory drug), Ibuprofen, Lyrica [pregabalin], and Metformin Past Surgical History: Procedure Laterality Date ANTERIOR CERVICAL DISCECTOMY 02/25/2009 C5-6, C6-7 AR'BRITTON SHOULD SAD, SLAP, RCR, RESECT DISTAL CLAVICLE, BICEPS TENODESIS Right 11/04/2015 ARTHROPLASTY HIP TOTAL Right 02/27/2018 Procedure: RIGHT TOTAL HIP ARTHROPLASTY; Surgeon: Gabo Sears MD; Location: [facility] Main OR; Service: Orthopedic BLADDER SUSPENSION BRONCHOSCOPY CARDIAC CATHETERIZATION Bilateral 09/21/2006 COLONOSCOPY FOOT SURGERY Right 03/08/2005 Third interdigital neuroma excision, fourth metatarsal osteotomy w/capsulotomy, fifth metatarsal head excision HARDWARE REMOVAL ANTERIOR CERVICAL 07/22/2014 C5, C6-7 HARDWARE REMOVAL LUMBAR 01/02/2009 L5-S1 w/ redo decompression laminectomy HYSTERECTOMY CARLOS MANUEL BSO Bladder suspension KNEE ARTHROSCOPY W/ LASER Left 2014 LAMINECTOMY DECOMP LUMBAR W/FUSION 4 OR MORE LVL N/A 11/08/2017 Procedure: HARDWARE REMOVAL L4-S1, DECOMPRESSION/FUSION L2-L4, PLIF, REINSTRUMENT L2-S1; Surgeon: Alejo Hummel MD; Location: [facility] Main OR; Service: Orthopedic LAMINECTOMY DISC ANTERIOR CERVICAL W/ FUSION SINGLE LEVEL N/A 03/13/2021 Procedure: Anterior cervical discectomy fusion cervical4-5 with plate and allograft; Surgeon: Jose Fraga MD; Location: [facility] Main OR; Service: Orthopedic LUMBAR LAMINECTOMY 10/11/2003 L5-S1 decompression w/interbody fusion bilateral and posterior fusion fixation LUNG BIOPSY Right ROTATOR CUFF REPAIR Left TONSILLECTOMY TOTAL KNEE ARTHROPLASTY Right WISDOM TOOTH EXTRACTION Objective: BP (!) 155/85 Pulse (!) 107 Ht 5' 6 Wt 88.5 kg (195 lb) LMP (LMP Unknown) SpO2 93% BMI31.47 kg/m Today she appears alert oriented and cooperative. She is in no acute distress with occasional facial expression of pain. She has well-healed midline lumbar scar. She is a mild increase in thoracic kyphosis. She has moderate tenderness to palpation in the lower lumbar spine. She has minimal pain with lumbar flexion and extension. She has no pain with cervical flexion and extension. Cervical paraspinal strength is good and she is able to position her head in space in all directions without limitation or weakness in any plane. Upper extremity motor exam is strong and symmetric in all groups with only pain inhibition with left shoulder abduction. Lower extremity motor manual testing is intact and symmetric. However she does show a suggestion ofbilateral Trendelenburg weakness with gait. Reflexes are absent in her ankle jerks and right knee jerk and intact in the left knee jerk. Clonusis absent. Hip range of motion is intact and painless. She has markedly positive impingement pain about the left shoulder. Imaging: CT cervical spine 03/31/2022: Review of the images shows a solid well remodeled fusion from C4-T1. Her canal appears generally patent. The report: IMPRESSION: Postsurgical changes without acute osseous abnormality. Jose Fraga MD documented in this [id number] Evaluation + Plan note* Assessment & Plan Note - Kristyn Ha MD - 2022 2:39 PM EDT Associated Problem(s): Diastolic dysfunction History of grade I diastolic dysfunction noted on prior echocardiography (06/08/2019). She continues to be without evidence of volume overload. She continues to be on JAVAN inhibitor therapy. Continued good blood pressure control remains of paramount importance. [id number] Miscellaneous Notes* Assessment & Plan Note - Kristyn Ha MD - 2022 2:39 PM EDTAssociated Problem(s): Diastolic dysfunction History of grade I diastolic dysfunction noted on prior echocardiography (06/08/2019). She continues to be without evidence of volume overload. She continues to be on JAVAN inhibitor therapy. Continued good blood pressure control remains of paramount importance. * Assessment & Plan Note - Kristyn Ha MD - 2022 2:38 PM EDT Associated Problem(s): Obesity Weight loss recommended. * Assessment & Plan Note - Kristyn Ha MD - 2022 2:38 PM EDT Associated Problem(s): Hypertension Stable, albeit somewhat low today. She continues to be on amlodipine and lisinopril. Continue with current medical therapy. Recommend therapeutic lifestyle changes including diet, exercise, weight loss, and reduced sodium intake. * Assessment & Plan Note - Kristyn Ha MD - 2022 2:36 PM EDT Associated Problem(s): Cardiomyopathy (HCC) She has had normal systolic function on her last 2 echocardiography evaluations (04/16/2019, 06/08/2019). She continues to be without evidence of volume overload. She remains on JAVAN inhibition therapy. Continue to follow clinically and continue current Rx. Follow-up in 1 year. Last EKG (03/23/2021 demonstrated sinus tachycardia with an occasional PVC, left axis deviation and LVH with IVCD. documented in this [id number] Evaluation + Plan note* Assessment & Plan Note - Kristyn Ha MD - 2022 2:38 PM EDT Associated Problem(s): Obesity Weight loss recommended. [id number] Evaluation + Plan note* Assessment & Plan Note - Kristyn Ha MD - 2022 2:38 PM EDTAssociated Problem(s): Hypertension Stable, albeit somewhat low today. She continues to be on amlodipine and lisinopril. Continue with current medical therapy. Recommend therapeutic lifestyle changes including diet, exercise, weight loss, and reduced sodium intake. [id number] Evaluation + Plan note* Assessment & Plan Note - Kristyn Ha MD - 2022 2:36 PM EDTAssociated Problem(s): Cardiomyopathy (HCC) She has had normal systolic function on her last 2 echocardiography evaluations (04/16/2019, 06/08/2019). She continues to be without evidence of volume overload. She remains on JAVAN inhibition therapy. Continue to follow clinically and continue current Rx. Follow-up in 1 year. Last EKG (03/23/2021 demonstrated sinus tachycardia with an occasional PVC, left axis deviation and LVH with IVCD. [id number] History of Present illness Narrative* Kristyn Ha MD - 2022 2:25 PM EDT Cardiology Office Visit [facility] [address] [place] [phone] Physicians: Harmony Gee MD (Family); Harmony Gee MD (Referring) Assessment & Plan: Problem List Items Addressed This Visit Cardiology Problems Hypertension Stable, albeit somewhat low today. She continues to be on amlodipine and lisinopril. Continue with current medical therapy. Recommend therapeutic lifestyle changes including diet, exercise, weight loss, and reduced sodium intake. Cardiomyopathy (HCC) - Primary She has had normal systolic function on her last 2 echocardiography evaluations (04/16/2019, 06/08/2019). She continues to be without evidence of volume overload. She remains on JAVAN inhibition therapy. Continue to follow clinically and continue current Rx. Follow-up in 1 year. Last EKG (03/23/2021 demonstrated sinus tachycardia with an occasional PVC, left axis deviation and LVH with IVCD. Other Obesity Weight loss recommended. Diastolic dysfunction History of grade I diastolic dysfunction noted on prior echocardiography (06/08/2019). She continues to be without evidence of volume overload. She continues to be on JAVAN inhibitor therapy. Continued good blood pressure control remains of paramount importance. Follow Up Ordered: Return in about 1 year (around 2023). Matthew Perez is a 67 y.o. female seen in the office today for Follow- up (1 year. States she does get an occasional sharp pain, mid-chest area, lasting about 5 mins; cannot relate it to activity. ) HPI: Matthew Perez is a 67 y.o. female with a past medical history significant for hypertension, past cardiomyopathy (with restored LV function; EF 55-60% per echo 04/16/2019), COPD, obesity, obstructive sleep apnea (intolerant of CPAP), and significant chronic pain who presents for annual cardiovascular follow-up evaluation. She states that she has done well from an overall CV standpoint since her last/initial visit (02/26/2021) when she was evaluated for preoperative risk assessment for anterior cervical discectomy and fusion of C4-5 with plate and allograft. She reports that she had this procedure done without cardiovascular issues or problems. She remains active with her ADLs, but continues to be limited by her chronic pain. She will experience some dyspnea on exertion, but relates this to her COPD and has found that her medications will be helpful for that her dyspnea. She will occasionally experience a sharp middle of the chest pain that lasts only a couple minutes at a time and sometimes comes on with swallowing. She denies other overt cardiovascular symptoms or complaints. She denies any exertional angina. She denies any palpitations or perceived dysrhythmia, lightheadedness, dizziness, near syncope or syncope. She denies any heart failure symptoms including orthopnea, PND, or LE edema. She states intolerance to CPAP. She was initially noted to have a mild cardiomyopathy with mild global hypokinesis and an EF of 45%in 2005. She underwent cardiac catheterization which demonstrated no angiographically definable coronary artery disease. She reports that she had done well until March 2019 when driving back from the [facility], she had an episode of viral syndrome with significant fever. She was mated to a hospital in [place] on 04/15/2019 and discharged on 04/16/2019. CT PE was unremarkable and echocardiography demonstrated normal function. She had a subsequent follow-up echo in 06/08/2019 that also demonstrated normal systolic function. Histories: Past Medical History: Diagnosis Date Anxiety Arthritis osteo Asthma 08/23/2014 Cardiomyopathy (HCC) resolved (EF 45% per cath 09/21/2006; EF 55-60% per echo 04/16/2019). Depression Diastolic dysfunction mild per echo on 06/08/2019 Fibromyalgia, primary GERD (gastroesophageal reflux disease) patient denies Hypertension 04/01/2015 Migraines Obesity AYO (obstructive sleep apnea) cannot tolerate C-Pap Pneumonia x2 , had 2 pneumonia shots Restless legs syndrome Shoulder joint pain Spinal stenosis Varicose veins of both lower extremities Past Surgical History: Procedure Laterality Date ANTERIOR CERVICAL DISCECTOMY 02/25/2009 C5-6, C6-7 AR'BRITTON SHOULD SAD, SLAP, RCR, RESECT DISTAL CLAVICLE, BICEPS TENODESIS Right 11/04/2015 ARTHROPLASTY HIP TOTAL Right 02/27/2018 Procedure: RIGHT TOTAL HIP ARTHROPLASTY; Surgeon: Gabo Sears MD; Location: [facility] Main OR; Service: Orthopedic BLADDER SUSPENSION BRONCHOSCOPY CARDIAC CATHETERIZATION Bilateral 09/21/2006 COLONOSCOPY FOOT SURGERY Right 03/08/2005 Third interdigital neuroma excision, fourth metatarsal osteotomy w/capsulotomy, fifth metatarsal head excision HARDWARE REMOVAL ANTERIOR CERVICAL 07/22/2014 C5, C6-7 HARDWARE REMOVAL LUMBAR 01/02/2009 L5-S1 w/ redo decompression laminectomy HYSTERECTOMY CARLOS MANUEL BSO Bladder suspension KNEE ARTHROSCOPY W/ LASER Left 2014 LAMINECTOMY DECOMP LUMBAR W/FUSION 4 OR MORE LVL N/A 11/08/2017 Procedure: HARDWARE REMOVAL L4-S1, DECOMPRESSION/FUSION L2-L4, PLIF, REINSTRUMENT L2-S1; Surgeon: Alejo Hummel MD; Location: [facility] Main OR; Service: Orthopedic LAMINECTOMY DISC ANTERIOR CERVICAL W/ FUSION SINGLE LEVEL N/A 03/13/2021 Procedure: Anterior cervical discectomy fusion cervical4-5 with plate and allograft; Surgeon: Jose Fraga MD; Location: [facility] Main OR; Service: Orthopedic LUMBAR LAMINECTOMY 10/11/2003 L5-S1 decompression w/interbody fusion bilateral and posterior fusion fixation LUNG BIOPSY Right ROTATOR CUFF REPAIR Left TONSILLECTOMY TOTAL KNEE ARTHROPLASTY Right WISDOM TOOTH EXTRACTION Allergies Allergen Reactions Duloxetine GI Intolerance Nausea Nsaids (Non-Steroidal Anti-Inflammatory Drug) GI Intolerance Ibuprofen GI Intolerance Lyrica [Pregabalin] Other (See Comments) nightmares Metformin GI Intolerance Patient's Medications New Prescriptions No medications on file Previous Medications ALBUTEROL (PROVENTIL) 2.5 MG /3 ML (0.083 %) NEBULIZER SOLUTION Take 2.5 mg by nebulization daily as needed . ALBUTEROL (VENTOLIN HFA) 90 MCG/ACTUATION INHALER Inhale 1 (one) puff every 6 (six) hours as neededfor wheezing . AMLODIPINE (NORVASC) 5 MG TABLET Take 5 mg by mouth daily . ANORO ELLIPTA 62.5-25 MCG/ACTUATION DSDV Inhale 2 puffs daily . BECLOMETHASONE (QVAR) 40 MCG/ACTUATION INHALER Inhale 2 (two) puffs 2 (two) times a day Rinse mouth. BUDESONIDE-FORMOTEROL (SYMBICORT) 80-4.5 MCG/ACTUATION INHALER 1 puff . CAFFEINE 200 MG Take 200 mg by mouth daily . CLONAZEPAM (KLONOPIN) 1 MG TABLET Take 1 mg by mouth 2 (two) times a day as needed . IPRATROPIUM-ALBUTEROL (DUO-NEB) 0.5-2.5 MG/3 ML NEBULIZER Take 3 mL by nebulization every 6 (six) hours as needed for wheezing or shortness of breath . LISINOPRIL (PRINIVIL,ZESTRIL) 20 MG TABLET Take 20 mg by mouth every evening . MELATONIN 5 MG TAB Take 5 mg by mouth nightly . MELOXICAM (MOBIC) 7.5 MG TABLET Take 7.5 mg by mouth daily . MONTELUKAST (SINGULAIR) 10 MG TABLET Take 10 mg by mouth daily . NARCAN 4 MG/ACTUATION [place] Administer 1 spray into one nostril for known or suspected opioid overdose. If patient worsens or does not respond, may repeat in 2-3 minutes. . OXYCODONE-ACETAMINOPHEN (PERCOCET) 10-325 MG PER TABLET Take 2 tablets by mouth 3 (three) times a day as needed . ROPINIROLE (REQUIP) 2 MG TABLET Take 2 mg by mouth 3 (three) times a day Reasons: restless legs syndrome, an extreme discomfort in the calf muscles when sitting or lying down. SUMATRIPTAN (IMITREX) 100 MG TABLET Take 1 (one) tablet (100 mg total) by mouth as needed for migraine. TRAZODONE (DESYREL) 50 MG TABLET Take 50 mg by mouth nightly . TROSPIUM (SANCTURA) 20 MG TABLET Take 1 (one) tablet (20 mg total) by mouth 2 (two) times a day . Modified Medications No medications on file Discontinued Medications ALBUTEROL 90 MCG/ACTUATION INHALER Inhale 2 puffs every 6 (six) hours as needed for wheezing . ALBUTEROL 90 MCG/ACTUATION INHALER albuterol sulfate HFA 90 mcg/actuation aerosol inhaler CYCLOBENZAPRINE (FLEXERIL) 5 MG TABLET 1 Unspecified . DULOXETINE (CYMBALTA) 60 MG CAPSULE Take 60 mg by mouth 2 (two) times a day . FUROSEMIDE (LASIX) 20 MG TABLET Take 20 mg by mouth daily . MECLIZINE (ANTIVERT) 25 MG TABLET Take 1 (one) tablet (25 mg total) by mouth every 6 (six) hours for 5 days . MIRTAZAPINE (REMERON RODRIGO-TAB) 15 MG DISINTEGRATING TABLET Dissolve 1 (one) tablet (15 mg total) on top of tongue nightly . OMEPRAZOLE (PRILOSEC) 40 MG CAPSULE Take 1 (one) capsule (40 mg total) by mouth daily. QVAR REDIHALER 40 MCG/ACTUATION HFAB Inhale 2 puffs 2 (two) times a day . RANITIDINE (ZANTAC) 300 MG TABLET Take 1 (one) tablet (300 mg total) by mouth nightly. SERTRALINE (ZOLOFT) 50 MG TABLET Family History Problem Relation Age of Onset Hypertension Father Heart disease Father Diabetes Father Breast cancer Mother ; cancer went to brain, liver and lungs Brain cancer Mother Liver cancer Mother Lung cancer Mother Hypertension Sister Diabetes Sister Hypertension Other siblings Diabetes Other siblings No Known Problems Brother Surgical complications Neg Hx Anesthesia problems Neg Hx Clotting disorder Neg Hx Deep vein thrombosis Neg Hx Pulmonary embolism Neg Hx Social History Socioeconomic History Marital status: Spouse name: Derrek Tobacco Use Smoking status: Never Smoker Smokeless tobacco: Never Used Tobacco comment: 04/21/21 Vaping Use Vaping Use: Never used Substance and Sexual Activity Alcohol use: Yes Alcohol/week: 0.0 standard drinks Comment: sometimes 10 a year; rare Drug use: No Comment: tried all forms of medical marijuana without positive results in last 6 weeks Sexual activity: Yes Partners: Male control/protection: None Social History Narrative Merged History Encounter Social Determinants of Health Financial Resource Strain: Low Risk Difficulty of Paying Living Expenses: Not hard at all Food Insecurity: No Food Insecurity Worried About Running Out of Food in the Last Year: Never true Ran Out of Food in the Last Year: Never true Transportation Needs: No Transportation Needs Lack of Transportation (Medical): No Lack of Transportation (Non-Medical): No Review of Systems Constitutional: Negative. Negative for diaphoresis, malaise/fatigue, weight gain and weight loss. HENT: Negative. Negative for hearing loss, nosebleeds and tinnitus. Eyes: Positive for visual disturbance (wears glasses). Negative for blurred vision. Cardiovascular: Positive for chest pain (atypical). Negative for claudication, cyanosis, dyspnea onexertion, irregular heartbeat, leg swelling, near-syncope, orthopnea, palpitations, paroxysmal nocturnal dyspnea and syncope. Respiratory: Negative. Negative for hemoptysis, shortness of breath and snoring. Endocrine: Negative. Negative for cold intolerance and heat intolerance. Hematologic/Lymphatic: Negative. Does not bruise/bleed easily. Skin: Negative. Negative for flushing, poor wound healing and rash. Musculoskeletal: Positive for arthritis, back pain, joint pain and neck pain. Negative for muscle weakness and myalgias. Gastrointestinal: Negative. Negative for abdominal pain, change in bowel habit, melena, nausea and vomiting. Genitourinary: Negative. Negative for hematuria. Neurological: Positive for numbness and paresthesias. Negative for loss of balance. Psychiatric/Behavioral: Negative. Negative for memory loss. The patient is not nervous/anxious. Physical Examination: Vitals: Vitals: 03/09/22 1357 BP: 102/69 Pulse: (!) 101 SpO2: 91% Weight: 88.5 kg (195 lb) Height: 5' 6 Body mass index is 31.47 kg/m . Physical Exam Vitals and nursing note reviewed. Constitutional: Appearance: She is well-developed. She is obese. HENT: Head: Normocephalic and atraumatic. Comments: Wearing glasses. Wearing a facial mask. Eyes: General: Lids are normal. Conjunctiva/sclera: Conjunctivae normal. Pupils: Pupils are equal, round, and reactive to light. Neck: Thyroid: No thyroid mass or thyromegaly. Vascular: Normal carotid pulses. No carotid bruit, hepatojugular reflux or JVD. Cardiovascular: Rate and Rhythm: Normal rate and regular rhythm. Pulses: Normal pulses. No midsystolic click. Heart sounds: Normal heart sounds, S1 normal and S2 normal. No murmur heard. No friction rub. No gallop. No S3 or S4 sounds. Pulmonary: Effort: Pulmonary effort is normal. Breath sounds: Normal breath sounds. No wheezing or rales. Abdominal: General: Bowel sounds are normal. There is no distension. Palpations: Abdomen is soft. There is no mass. Tenderness: There is no abdominal tenderness. There is no guarding or rebound. Comments: Obese. Musculoskeletal: General: No tenderness. Normal range of motion. Cervical back: Normal range of motion and neck supple. Skin: General: Skin is warm and dry. Findings: No rash. Neurological: Mental Status: She is alert and oriented to person, place, and time. Gait: Gait normal. Psychiatric: Behavior: Behavior normal. Cardiac Catheterization (09/21/2006): No angiographically definable coronary artery disease. Globalsystolic dysfunction; EF 45%. CT PE ([place])(04/15/2019): No PE, no thoracic aortic aneurysm or dissection. Echocardiography ([place])(04/16/2019): Normal LV cavity size and systolic function; EF 55-60%. Mild concentric LVH. Grade 1 diastolic dysfunction. Trace AI/MR/TR. Lipids (04/16/2019): Total cholesterol 191, triglycerides 73, HDL 100, LDL 76 mg/dL. EKG (06/08/2019): NSR, left axis deviation, LVH, cannot r/o septal infarct AU. WCTPT-no significant changes noted. Echocardiography (06/08/2019): Normal LV cavity size, wall thickness, and systolic function; EF 55-60%. Grade 1 diastolic dysfunction. Mild AVT. Mild AI, trivial TR/PI. Borderline pulmonary hypertension; RVSP 42 mmHg. EKG ([facility])(02/23/2021): normal sinus rhythm, left axis deviation, IVCD, Lipids (03/04/2021): Total cholesterol 171, triglycerides 60, HDL 74, LDL 85 mg/dL. EKG (03/23/2021): Sinus tachycardia with PVCs, LAD, LVH with QRS widening. Cannot rule out septal infarct. The 10-year ASCVD risk score (Buchanan DC Jr., et al., 2013) is: 6.5% Values used to calculate the score: Age: 67 years Sex: Female Is Non- : No Diabetic: No Tobacco smoker: No Systolic Blood Pressure: 102 mmHg Is BP treated: Yes HDL Cholesterol: 74 mg/dL Total Cholesterol: 171 mg/dL Kristyn Ha MD, [facility] documented in this [id number] History of Present illness Narrative* Darell Fishman, [employer] - 02/11/2022 10:44 PM EDT [facility]ne[facility] Matthew [place] Ana 1955 02/11/22 Referring Physician: Ray Oliva MD Primary Care Provider: Harmony Gee MD BP 106/70 (BP Location: Left arm, Patient Position: Sitting, BP Cuff Size: Adult) Pulse 85 Temp97.3 F (36.3 C) (Temporal) Resp 18 Medications/Allergies Reviewed: yes Reason for visit: reevaluation of overactive bladder Assessment: 1. Overactive bladder with urge urinary incontinence. Plan: 1. We had a 25-minute discussion with 50% in [id number] counseling regarding today s findings and options. 2. She elects to trial a different medication and was prescribed Trospium 20 mg BID. In addition, she was counseled on the importance of conservative treatment measures including managing po fluid intake and bladder irritants. She was advised to begin Biotene or lozenges in lieu of sipping on water throughout the day. 3. She is considering surgical repair of the prolapse and will call the office to arrange. HPI: This is a 66 y.o. female, who was evaluated for concern for urinary leakage. She attempted to do Kegel's and cannot feel the muscles tighten. She denies stress incontinence. She reported voidingupwards of 3-4 times per night. She denies urinary hesitancy, dysuria, hematuria, repeat infection,upper tract disease. Her bowel movements are regular. She denies vaginal bleeding. She elected a trial of medication therapy and was provided samples of Myrbetriq 25 mg. She returns to the office today for reevaluation. She denies improvement with the medication and complains of severe dry mouth. She is interested in a different medication. She reports voiding frequently throughout the day and is unable to quantify. She now reports voiding 1-2 times at night. She drinks 32 ounces of Coke, 16 ounces of milk, and 24 ounces of various juices. In addition, she sips on water throughout the entire day secondary to dry mouth. She was counseled on the importance of limiting fluids to 50-60 ounces/day and avoiding bladder irritants. She was encouraged to begin Biotene or lozenges for dry mouth. She has known pelvic organ prolapse including rectocele and large enterocele. She may consider surgical repair of prolapse but reports multiple back issues to take care of first. Due to a need for aphysical examination to correctly assess her condition, a telehealth appointment is not feasible. While we take appropriate precautions consistent with prevailing medical standards, any contact with any person in any setting at this time presents a risk of transmission and contraction of COVID-19. She understands and agrees to an in- person evaluation. She underwent COVID-19 symptom screening and a face mask was provided prior to entering the hospital. Allergies: Duloxetine, Nsaids (non-steroidal anti-inflammatory drug), Ibuprofen, Lyrica [pregabalin], and Metformin Any changes to her past medical, surgical, family, and social histories are noted in the chart. Review of Systems: She denies fatigue, weight loss, weight gain, new headaches or visual changes, numbness/tingling of upper or lower extremities, chest pain, or mental illness. Outpatient Medications Marked as Taking for the 02/11/22 encounter (Office Visit) with Darell Fishman, [facility] Medication Sig Dispense Refill albuterol (PROVENTIL) 2.5 mg /3 mL (0.083 %) nebulizer solution Take 2.5 mg by nebulization daily as needed . albuterol 90 mcg/actuation inhaler Inhale 2 puffs every 6 (six) hours as needed for wheezing . albuterol 90 mcg/actuation inhaler albuterol sulfate HFA 90 mcg/actuation aerosol inhaler amLODIPine (NORVASC) 5 MG tablet Take 10 mg by mouth daily . Anoro Ellipta 62.5-25 mcg/actuation DsDv Inhale 2 puffs daily . beclomethasone (QVAR) 40 mcg/actuation inhaler Inhale 2 (two) puffs 2 (two) times a day Rinse mouth. 1 Inhaler 5 budesonide-formoteroL (SYMBICORT) 80-4.5 mcg/actuation inhaler 1 puff . caffeine 200 mg Take 200 mg by mouth daily . clonazePAM (KLONOPIN) 1 MG tablet Take 1 mg by mouth 2 (two) times a day as needed . cyclobenzaprine (FLEXERIL) 5 MG tablet 1 Unspecified . DULoxetine (CYMBALTA) 60 MG capsule Take 60 mg by mouth 2 (two) times a day . furosemide (LASIX) 20 MG tablet Take 20 mg by mouth daily . lisinopril (PRINIVIL,ZESTRIL) 20 MG tablet Take 20 mg by mouth every evening . melatonin 5 mg Tab Take 5 mg by mouth nightly . montelukast (SINGULAIR) 10 mg tablet Take 10 mg by mouth daily . NARCAN 4 mg/actuation [address] Administer 1 spray into one nostril for known or suspected opioid overdose. If patient worsens or does not respond, may repeat in 2-3 minutes. . 1 Package 0 oxyCODONE-acetaminophen (PERCOCET) 10-325 mg per tablet Take 2 tablets by mouth 3 (three) times a day as needed . Qvar RediHaler 40 mcg/actuation HFAB Inhale 2 puffs 2 (two) times a day . rOPINIRole (REQUIP) 2 MG tablet Take 2 mg by mouth 3 (three) times a day Reasons: restless legs syndrome, an extreme discomfort in the calf muscles when sitting or lying down. sertraline (ZOLOFT) 50 MG tablet traZODone (DESYREL) 50 MG tablet Take 50 mg by mouth nightly . Darell Fishman, MSN, [employer] documented in this [id number] History of Present illness Narrative* Jose Fraga MD - 12/22/2021 1:15 PM EST Images from the original note were not included. Matthew Perez 1955 Impression/Plan: Problem List Items Addressed This Visit Other Status post lumbar spinal fusion L2-S1 Lumbar stenosis L1-2 with neurogenic claudication - Primary We could consider decompression and extension of her fusion up to L1. This would have the potentialrisk of further adjacent segment disease more cranially, although the T12-L1 level looks good at present. These management options were discussed. Non-operative alternatives were reviewed and discussed. The nature of surgical options available were described. The elective nature of the procedures, the full range of risks and potential complications, and the limited success probabilities with surgery were discussed, and all questions were answered. She is considering her options and will call ifshe wishes to proceed with surgery. Return for further surgical discussion as requested. Clinical Findings: Matthew Perez presents to the clinic for follow-up evaluation after cervical spine x-rays and lumbar MRI to assess her fusion healing and an extremely bothersome low back and radicular pain problem. At present her worst problem is bilateral groin and anterior thigh pain which awakens her at night.She notes a sense of weakness in her lower extremities with marked limitation of standing and walking. She has difficulty arising from a seated position. She also has lesser low back and bilateral buttock pain which are constant. When shopping she uses a motorized wheelchair. She is status post 3 prior lumbar procedures performed in 2002, 2008, and 2016, most recently by Dr. Hummel at [place]. Following surgery she has had modest improvement. Recently she has attempted management with spinal cord stimulator performed approximately 2019 without improvement. She has been on ibuprofen in the remote past, relatively contraindicated because of heart disease. She has had GI distress with gabapentin. She has had various pain injections most recently preoperatively prior to her 2017 surgery. She recently attempted physical therapy for her low back which increased her pain. She tried this for 3 weeks. She previously has been able to tolerate exercise at the [facility] in the pool. From the standpoint of her neck she has generally done well. She has minimal neck pain and she has no significant upper extremity radicular pain although she does note a general sense of heaviness through her upper extremities with some difficulty with bilateral shoulders. She underwent surgery 03/13/2021 for anterior cervical decompression, anterior cervical fusion C4-5 with plate and allograft. Past Medical History: Diagnosis Date Anxiety Arthritis osteo Asthma 08/23/2014 COPD (chronic obstructive pulmonary disease) ([facility]) Depression Diastolic dysfunction mild per echo on 06/08/2019 Fibromyalgia, primary GERD (gastroesophageal reflux disease) patient denies Hypertension controlled Hypertension 04/01/2015 Migraines Obesity AYO (obstructive sleep apnea) unable to use cpap; recently received mouthpiece but not using Pneumonia x2 , had 2 pneumonia shots Restless legs syndrome Shoulder joint pain Spinal stenosis Varicose veins of both lower extremities Patient Active Problem List Diagnosis AYO (obstructive sleep apnea) Asthma Balance disorder Hypertension Protrusion of cervical intervertebral disc C4-5 with stenosis Brachial neuritis Lumbar pain Depression Pre-diabetes Dysphagia Cataract Migraine Bronchogenic cancer (HCC) Restless legs syndrome Tendinopathy of rotator cuff Varicose vein History of cardiomyopathy Iron deficiency Obesity Difficulty walking Encounter for long-term use of opiate analgesic Varicose veins of lower extremities with complications Leg pain Status post lumbar spinal fusion L2-S1 Lumbar stenosis L1-2 with neurogenic claudication Spinal stenosis DDD (degenerative disc disease), lumbar Hip osteoarthritis Acute blood loss as cause of postoperative anemia S/P total hip arthroplasty Osteoarthritis of multiple joints Vertigo History of falling Rectocele Protrusion of cervical intervertebral disc C4-5 with stenosis Diastolic dysfunction Preoperative cardiovascular examination Status post cervical spinal fusion Hypertensive heart disease without heart failure Inguinal pain Outpatient Medications as of 12/22/2021 Medication Sig albuterol (PROVENTIL) 2.5 mg /3 mL (0.083 %) nebulizer solution Take 2.5 mg by nebulization daily as needed . albuterol (Ventolin HFA) 90 mcg/actuation inhaler Inhale 1 (one) puff every 6 (six) hours as neededfor wheezing . albuterol 90 mcg/actuation inhaler Inhale 2 puffs every 6 (six) hours as needed for wheezing . albuterol 90 mcg/actuation inhaler albuterol sulfate HFA 90 mcg/actuation aerosol inhaler amLODIPine (NORVASC) 5 MG tablet Take 5 mg by mouth daily . Anoro Ellipta 62.5-25 mcg/actuation DsDv Inhale 2 puffs daily . beclomethasone (QVAR) 40 mcg/actuation inhaler Inhale 2 (two) puffs 2 (two) times a day Rinse mouth. budesonide-formoteroL (SYMBICORT) 80-4.5 mcg/actuation inhaler 1 puff . caffeine 200 mg Take 200 mg by mouth daily . clonazePAM (KLONOPIN) 1 MG tablet Take 1 mg by mouth 2 (two) times a day as needed . cyclobenzaprine (FLEXERIL) 5 MG tablet 1 Unspecified . DULoxetine (CYMBALTA) 60 MG capsule Take 60 mg by mouth 2 (two) times a day . furosemide (LASIX) 20 MG tablet Take 20 mg by mouth daily . ipratropium-albuteroL (DUO-NEB) 0.5-2.5 mg/3 ml nebulizer Take 3 mL by nebulization every 6 (six) hours as needed for wheezing or shortness of breath . lisinopril (PRINIVIL,ZESTRIL) 20 MG tablet Take 20 mg by mouth every evening . meclizine (ANTIVERT) 25 mg tablet Take 1 (one) tablet (25 mg total) by mouth every 6 (six) hours for 5 days . (Patient not taking: Reported on 04/20/2021 .) melatonin 5 mg Tab Take 5 mg by mouth nightly . mirtazapine (REMERON RODRIGO-TAB) 15 MG disintegrating tablet Dissolve 1 (one) tablet (15 mg total) on top of tongue nightly . (Patient not taking: Reported on 04/20/2021 .) montelukast (SINGULAIR) 10 mg tablet Take 10 mg by mouth daily . NARCAN 4 mg/actuation [address] Administer 1 spray into one nostril for known or suspected opioid overdose. If patient worsens or does not respond, may repeat in 2-3 minutes. . omeprazole (PRILOSEC) 40 MG capsule Take 1 (one) capsule (40 mg total) by mouth daily. (Patient nottaking: Reported on 04/20/2021 .) oxyCODONE-acetaminophen (PERCOCET) 10-325 mg per tablet Take 2 tablets by mouth 3 (three) times a day as needed . Qvar RediHaler 40 mcg/actuation HFAB Inhale 2 puffs 2 (two) times a day . ranitidine (ZANTAC) 300 MG tablet Take 1 (one) tablet (300 mg total) by mouth nightly. (Patient nottaking: Reported on 04/20/2021 .) rOPINIRole (REQUIP) 2 MG tablet Take 2 mg by mouth 3 (three) times a day Reasons: restless legs syndrome, an extreme discomfort in the calf muscles when sitting or lying down. sertraline (ZOLOFT) 50 MG tablet SUMAtriptan (IMITREX) 100 MG tablet Take 1 (one) tablet (100 mg total) by mouth as needed for migraine. (Patient not taking: Reported on 04/20/2021 .) traZODone (DESYREL) 50 MG tablet Take 50 mg by mouth nightly . Allergies: Duloxetine, Nsaids (non-steroidal anti-inflammatory drug), Ibuprofen, Lyrica [pregabalin], and Metformin Past Surgical History: Procedure Laterality Date ANTERIOR CERVICAL DISCECTOMY 02/25/2009 C5-6, C6-7 AR'SCOPY SHOULD SAD, SLAP, RCR, RESECT DISTAL CLAVICLE, BICEPS TENODESIS Right 11/04/2015 ARTHROPLASTY HIP TOTAL Right 02/27/2018 Procedure: RIGHT TOTAL HIP ARTHROPLASTY; Surgeon: Gabo Sears MD; Location: [facility] Main OR; Service: Orthopedic BACK SURGERY 2008,2002 x 2 Low back, BLADDER SUSPENSION bladder tie-up BRONCHOSCOPY CARDIAC CATHETERIZATION Bilateral 09/21/2006 COLONOSCOPY FOOT SURGERY Right 03/08/2005 Third interdigital neuroma excision, fourth metatarsal osteotomy w/capsulotomy, fifth metatarsal head excision HARDWARE REMOVAL ANTERIOR CERVICAL 07/22/2014 C5, C6-7 HARDWARE REMOVAL LUMBAR 01/02/2009 L5-S1 w/ redo decompression laminectomy HYSTERECTOMY CARLOS MANUEL BSO Bladder suspension KNEE ARTHROSCOPY W/ LASER Left 2013 LAMINECTOMY DECOMP LUMBAR W/FUSION 4 OR MORE LVL N/A 11/08/2017 Procedure: HARDWARE REMOVAL L4-S1, DECOMPRESSION/FUSION L2-L4, PLIF, REINSTRUMENT L2-S1; Surgeon: Alejo Hummel MD; Location: [facility] Main OR; Service: Orthopedic LAMINECTOMY DISC ANTERIOR CERVICAL W/ FUSION SINGLE LEVEL N/A 03/13/2021 Procedure: Anterior cervical discectomy fusion cervical4-5 with plate and allograft; Surgeon: Jose Fraga MD; Location: [facility] Main OR; Service: Orthopedic LUMBAR LAMINECTOMY 10/11/2003 L5-S1 decompression w/interbody fusion bilateral and posterior fusion fixation LUNG BIOPSY Right ROTATOR CUFF REPAIR Left TONSILLECTOMY TOTAL KNEE ARTHROPLASTY Right WISDOM TOOTH EXTRACTION Objective: BP (!) 159/95 Pulse 95 Ht 5' 6 Wt 85.7 kg (189 lb) SpO2 93% BMI 30.51 kg/m Today she appears alert oriented and cooperative. She is in no acute distress with occasional facial expression of pain. She has well-healed midline lumbar scar. She is a mild increase in thoracic kyphosis. She has moderate tenderness to palpation in the lower lumbar spine. She has minimal pain with lumbar flexion and extension. Lower extremity motor manual testing is intact and symmetric. However she does show a suggestion ofbilateral Trendelenburg weakness with gait. Reflexes are absent in her ankle jerks and right knee jerk and intact in the left knee jerk. Clonusis absent. Hip range of motion is intact and painless. Imaging: X-ray of the cervical spine 12/18/2021/ 06/25/2021: On review of the images it appears that satisfactory stabilization has been achieved although the fusion does not present as a solid confluent bone mass. Rather there is a plane of discontinuity within the midportion of the disc space, surrounded by a reasonable amount of ossification. This has a stable appearance without any loosening of the hardware. The report: FINDINGS: Extensive cervical fusion surgery present with anterior plate and screw ACDF hardware present C4-C5, and C7-T1. There also appears to be solid fusion and interbody fusion graft spacer incorporated atC5-C6 and C6-C7. All of the fusion segments are appropriately aligned as are the upper cervical segments. IMPRESSION: Extensive prior cervical fusion changes from C4 to T1. Stabilization plate and screw hardware C4-C5and C7-T1 again appears appropriately positioned. Segments are appropriately aligned including the upper nonfused cervical segments. MRI the lumbar x-ray of the lumbar spine 06/25/2021: Review of the images shows a generally solid fusion from L2 to the sacrum with hardware in generally satisfactory position. We see an area of stenosis at L1 to above her prior fusion. There is retrolisthesis at that level and marked local degenerative change. IMPRESSION: Redemonstration of surgical hardware associated with multilevel lumbar fusion L2 to S1, with intacthardware, stable posterolateral intertransverse fusion bone from L2 to S1, solid fusion at L4-L5 where there is a fusion graft spacer as well. Advanced degeneration L1-L2 interspace disc, marked endplate eburnation, vacuum disc phenomenon. There is minimal retrolisthesis of L1 on L2 of approximately 5 mm without change of the motion studies. Fixed retrolisthesis L2 on L3. No change on the motion studies. Jose Fraga MD documented in this [id number] History of Present illness Narrative* Lisa Mcclain CNP - 09/22/2021 3:34 PM EST Images from the original note were not included. Patient Name: [facility] Location: Matthew Perez [address], [address] [facility] [id number] Date Of : Date Of Visit: 1955 09/22/2021 MRN# Provider: [id number] Lisa Balderasfreedom Mcclain, [employer] No chief complaint on file. Assessment & Plan 1. Dysuria POC Urinalysis Dipstick,Auto UC Urine Aerobic Culture Urine Aerobic Culture 2. Acute cystitis with hematuria No follow-ups on file. Medical Decision Making Started on ATB MACROBID - reviewed the SE of the medication. Patient agreed to proceed. Urine sent for cx. Reviewed the urine done in the office. Follow up with pcp in the next week for recheck of her urine Additional Clinical Comments Subjective 66 y.o. female presents with No chief complaint on file. Patient is here for a possible UTI - She states that she has frequency and low suprapubic discomfort for the past 4-5 days with no fevers and no N/V/D - reports a hx of UTI in the past Review Of Systems Review of Systems Medical History Past Medical History: Diagnosis Date Anxiety Arthritis osteo Asthma 08/23/2014 COPD (chronic obstructive pulmonary disease) (HCC) Depression Diastolic dysfunction mild per echo on 06/08/2019 Fibromyalgia, primary GERD (gastroesophageal reflux disease) patient denies Hypertension controlled Hypertension 04/01/2015 Migraines Obesity AYO (obstructive sleep apnea) unable to use cpap; recently received mouthpiece but not using Pneumonia x2 , had 2 pneumonia shots Restless legs syndrome Shoulder joint pain Spinal stenosis Varicose veins of both lower extremities Past Surgical History: Procedure Laterality Date ANTERIOR CERVICAL DISCECTOMY 02/25/2009 C5-6, C6-7 AR'SCOPY SHOULD SAD, SLAP, RCR, RESECT DISTAL CLAVICLE, BICEPS TENODESIS Right 11/04/2015 ARTHROPLASTY HIP TOTAL Right 02/27/2018 Procedure: RIGHT TOTAL HIP ARTHROPLASTY; Surgeon: Gabo Sears MD; Location: [facility] Main OR; Service: Orthopedic BACK SURGERY 2008,2002 x 2 Low back, BLADDER SUSPENSION bladder tie-up BRONCHOSCOPY CARDIAC CATHETERIZATION Bilateral 09/21/2006 COLONOSCOPY FOOT SURGERY Right 03/08/2005 Third interdigital neuroma excision, fourth metatarsal osteotomy w/capsulotomy, fifth metatarsal head excision HARDWARE REMOVAL ANTERIOR CERVICAL 07/22/2014 C5, C6-7 HARDWARE REMOVAL LUMBAR 01/02/2009 L5-S1 w/ redo decompression laminectomy HYSTERECTOMY CARLOS MANUEL BSO Bladder suspension KNEE ARTHROSCOPY W/ LASER Left 2014 LAMINECTOMY DECOMP LUMBAR W/FUSION 4 OR MORE LVL N/A 11/08/2017 Procedure: HARDWARE REMOVAL L4-S1, DECOMPRESSION/FUSION L2-L4, PLIF, REINSTRUMENT L2-S1; Surgeon: Alejo Hummel MD; Location: [facility] Main OR; Service: Orthopedic LAMINECTOMY DISC ANTERIOR CERVICAL W/ FUSION SINGLE LEVEL N/A 03/13/2021 Procedure: Anterior cervical discectomy fusion cervical4-5 with plate and allograft; Surgeon: Jose Fraga MD; Location: [facility] Main OR; Service: Orthopedic LUMBAR LAMINECTOMY 10/11/2003 L5-S1 decompression w/interbody fusion bilateral and posterior fusion fixation LUNG BIOPSY Right ROTATOR CUFF REPAIR Left TONSILLECTOMY TOTAL KNEE ARTHROPLASTY Right WISDOM TOOTH EXTRACTION Patient Active Problem List Diagnosis AYO (obstructive sleep apnea) Asthma Balance disorder Hypertension Protrusion of cervical intervertebral disc C4-5 with stenosis Brachial neuritis Lumbar pain Depression Pre-diabetes Dysphagia Cataract Migraine Bronchogenic cancer (HCC) Restless legs syndrome Tendinopathy of rotator cuff Varicose vein History of cardiomyopathy Iron deficiency Obesity Difficulty walking Encounter for long-term use of opiate analgesic Varicose veins of lower extremities with complications Leg pain Postlaminectomy syndrome of lumbar region Lumbar stenosis with neurogenic claudication Spinal stenosis DDD (degenerative disc disease), lumbar Hip osteoarthritis Acute blood loss as cause of postoperative anemia S/P total hip arthroplasty Osteoarthritis of multiple joints Vertigo History of falling Rectocele Protrusion of cervical intervertebral disc C4-5 with stenosis Diastolic dysfunction Preoperative cardiovascular examination Status post cervical spinal fusion Hypertensive heart disease without heart failure Inguinal pain Social History Social History Tobacco Use Smoking status: Never Smoker Smokeless tobacco: Never Used Tobacco comment: 04/21/21 Vaping Use Vaping Use: Never used Substance Use Topics Alcohol use: Yes Alcohol/week: 0.0 standard drinks Comment: sometimes 10 a year; rare Drug use: No Comment: tried all forms of medical marijuana without positive results in last 6 weeks Family History Family History Problem Relation Age of Onset Hypertension Father Heart disease Father Diabetes Father Breast cancer Mother ; cancer went to brain, liver and lungs Brain cancer Mother Liver cancer Mother Lung cancer Mother Hypertension Sister Diabetes Sister Hypertension Other siblings Diabetes Other siblings No Known Problems Brother Surgical complications Neg Hx Anesthesia problems Neg Hx Clotting disorder Neg Hx Deep vein thrombosis Neg Hx Pulmonary embolism Neg Hx Objective Physical Exam BP 136/89 Pulse 77 Temp 98.3 F (36.8 C) (Tympanic) Resp 16 Ht 5' 6 Wt 85.7 kg (189 lb) SpO2 95% BMI 30.51 kg/m Vision/Hearing Exam:No exam data present Physical Exam Vitals and nursing note reviewed. HENT: Head: Normocephalic. Cardiovascular: Rate and Rhythm: Normal rate and regular rhythm. Pulses: Normal pulses. Pulmonary: Effort: Pulmonary effort is normal. Abdominal: Comments: No CVA tenderness Neurological: Mental Status: She is alert. Procedure Notes Procedures Results Recent Results (from the past 168 hour(s)) POC Urinalysis Dipstick,Auto UC Collection Time: 09/22/21 3:09 PM Result Value Ref Range POC Color, Urine Yellow Yellow, Light Yellow, Dark Yellow Clarity, UA Cloudy (A) Clear Glucose, UA Negative Normal, Negative mg/dL Bilirubin, UA Negative Negative Ketones, UA Negative Negative mg/dL Spec Grav, UA 1.030 (A) 1.005 - 1.025 Blood, UA Small (A) Negative pH, UA 5.0 5.0 - 7.0 Protein, UA 100 (A) Negative mg/dL Urobilinogen, UA 0.2 <2.0, 0.2, Normal, Negative, 1.0, 2.0, <1.0 mg/dL Nitrite, UA Negative Negative Leukocyte Esterase, UA Moderate (A) Negative No orders to display Orders Placed This Visit Orders Placed This Encounter Procedures Urine Aerobic Culture POC Urinalysis Dipstick,Auto UC Medication List At End Of Visit Current Outpatient Medications Medication Sig Dispense Refill albuterol (Ventolin HFA) 90 mcg/actuation inhaler Inhale 1 (one) puff every 6 (six) hours as neededfor wheezing . 1 Inhaler 4 albuterol 90 mcg/actuation inhaler Inhale 2 puffs every 6 (six) hours as needed for wheezing . albuterol 90 mcg/actuation inhaler albuterol sulfate HFA 90 mcg/actuation aerosol inhaler amLODIPine (NORVASC) 5 MG tablet Take 5 mg by mouth daily . Anoro Ellipta 62.5-25 mcg/actuation DsDv Inhale 2 puffs daily . beclomethasone (QVAR) 40 mcg/actuation inhaler Inhale 2 (two) puffs 2 (two) times a day Rinse mouth. 1 Inhaler 5 budesonide-formoteroL (SYMBICORT) 80-4.5 mcg/actuation inhaler 1 puff . caffeine 200 mg Take 200 mg by mouth daily . cyclobenzaprine (FLEXERIL) 5 MG tablet 1 Unspecified . DULoxetine (CYMBALTA) 60 MG capsule Take 60 mg by mouth 2 (two) times a day . furosemide (LASIX) 20 MG tablet Take 20 mg by mouth daily . lisinopril (PRINIVIL,ZESTRIL) 20 MG tablet Take 20 mg by mouth every evening . melatonin 5 mg Tab Take 5 mg by mouth nightly . montelukast (SINGULAIR) 10 mg tablet Take 10 mg by mouth daily . oxyCODONE-acetaminophen (PERCOCET) 10-325 mg per tablet Take 2 tablets by mouth 3 (three) times a day as needed . Qvar RediHaler 40 mcg/actuation HFAB Inhale 2 puffs 2 (two) times a day . rOPINIRole (REQUIP) 2 MG tablet Take 2 mg by mouth 3 (three) times a day Reasons: restless legs syndrome, an extreme discomfort in the calf muscles when sitting or lying down. sertraline (ZOLOFT) 50 MG tablet traZODone (DESYREL) 50 MG tablet Take 50 mg by mouth nightly . albuterol (PROVENTIL) 2.5 mg /3 mL (0.083 %) nebulizer solution Take 2.5 mg by nebulization daily as needed . clonazePAM (KLONOPIN) 1 MG tablet Take 1 mg by mouth 2 (two) times a day as needed . ipratropium-albuteroL (DUO-NEB) 0.5-2.5 mg/3 ml nebulizer Take 3 mL by nebulization every 6 (six) hours as needed for wheezing or shortness of breath . 360 mL 0 meclizine (ANTIVERT) 25 mg tablet Take 1 (one) tablet (25 mg total) by mouth every 6 (six) hours for 5 days . (Patient not taking: Reported on 04/20/2021 .) 20 tablet 0 mirtazapine (REMERON RODRIGO-TAB) 15 MG disintegrating tablet Dissolve 1 (one) tablet (15 mg total) on top of tongue nightly . (Patient not taking: Reported on 04/20/2021 .) 30 tablet 0 NARCAN 4 mg/actuation [address] Administer 1 spray into one nostril for known or suspected opioid overdose. If patient worsens or does not respond, may repeat in 2-3 minutes. . 1 Package 0 nitrofurantoin, macrocrystal-monohydrate, (Macrobid) 100 MG capsule Take 1 (one) capsule (100 mg total) by mouth 2 (two) times a day for 5 days . 10 capsule 0 omeprazole (PRILOSEC) 40 MG capsule Take 1 (one) capsule (40 mg total) by mouth daily. (Patient nottaking: Reported on 04/20/2021 .) 30 capsule 5 ranitidine (ZANTAC) 300 MG tablet Take 1 (one) tablet (300 mg total) by mouth nightly. (Patient nottaking: Reported on 04/20/2021 .) 30 tablet 5 SUMAtriptan (IMITREX) 100 MG tablet Take 1 (one) tablet (100 mg total) by mouth as needed for migraine. (Patient not taking: Reported on 04/20/2021 .) 6 tablet 0 No current facility-administered medications for this visit. There are no Patient Instructions on file for this visit. documented in this [id number] History of Present illness Narrative* Arianna Ng CNP - 09/16/2021 2:15 PM EST Matthew Merida Ana 1955 Impression/Plan: Problem List Items Addressed This Visit Musculoskeletal and Integument DDD (degenerative disc disease), lumbar Relevant Orders Ambulatory Ref to January (PT/OT/ST) Protrusion of cervical intervertebral disc C4-5 with stenosis Relevant Orders XR Cervical Spine AP/LAT Other Status post cervical spinal fusion - Primary Relevant Orders XR Cervical Spine AP/LAT Other Visit Diagnoses Numbness of upper extremity Relevant Orders Ambulatory referral to Neurology Return in about 6 months (around 03/16/2022), or with cervical x-ray. In regards to her low back pain I recommend she pursue a fresh course of physical therapy. We will also reinitiate the referral toDr. Rossi to discuss the possibility of injection therapies. I recommend giving her cervical spine a full year to heal prior to additional work-up or considering revision surgery so we will plan to repeat x-rays in 6 months. I have also ordered bilateral upperextremity EMG and nerve conduction study to investigate the etiology of her bilateral hand numbness. Clinical Findings: Matthew Perez presents to the clinic after her surgery: 03/13/2021: OPERATIVE PROCEDURE Anterior cervical decompression, anterior cervical fusion C 4 5 with plate and allograft. Assessment - 09/16/21 5010 Pain Assessment Pain Assessment 0-10 0-10 DVPRS 9/10 Pain Location Leg She has done okay since surgery. She has minimal neck pain. She has no change in preoperative left arm numbness. Today she reports bilateral hand numbness. She has no new upper extremity weakness. She is not had any wound complications. She denies trouble swallowing or changes in her voice. She walks and ambulates without difficulty. She has resumed her normal baseline pain medication prescription of Percocet. She also uses medicalmarijuana for pain management. She has more bothersome low back pain. She reports this never stops. She has intermittent variable lower extremity radicular pain. She is interested in pursuing injections. She is status post 3 lumbar fusion surgeries. Past Medical History: Diagnosis Date Anxiety Arthritis osteo Asthma 08/23/2014 COPD (chronic obstructive pulmonary disease) (HCC) Depression Diastolic dysfunction mild per echo on 06/08/2019 Fibromyalgia, primary GERD (gastroesophageal reflux disease) patient denies Hypertension controlled Hypertension 04/01/2015 Migraines Obesity AYO (obstructive sleep apnea) unable to use cpap; recently received mouthpiece but not using Pneumonia x2 , had 2 pneumonia shots Restless legs syndrome Shoulder joint pain Spinal stenosis Varicose veins of both lower extremities Patient Active Problem List Diagnosis AYO (obstructive sleep apnea) Asthma Balance disorder Hypertension Protrusion of cervical intervertebral disc C4-5 with stenosis Brachial neuritis Lumbar pain Depression Pre-diabetes Dysphagia Cataract Migraine Bronchogenic cancer (HCC) Restless legs syndrome Tendinopathy of rotator cuff Varicose vein History of cardiomyopathy Iron deficiency Obesity Difficulty walking Encounter for long-term use of opiate analgesic Varicose veins of lower extremities with complications Leg pain Postlaminectomy syndrome of lumbar region Lumbar stenosis with neurogenic claudication Spinal stenosis DDD (degenerative disc disease), lumbar Hip osteoarthritis Acute blood loss as cause of postoperative anemia S/P total hip arthroplasty Osteoarthritis of multiple joints Vertigo History of falling Rectocele Protrusion of cervical intervertebral disc C4-5 with stenosis Diastolic dysfunction Preoperative cardiovascular examination Status post cervical spinal fusion Hypertensive heart disease without heart failure Inguinal pain Outpatient Medications as of 09/16/2021 Medication Sig albuterol (PROVENTIL) 2.5 mg /3 mL (0.083 %) nebulizer solution Take 2.5 mg by nebulization daily as needed . albuterol (Ventolin HFA) 90 mcg/actuation inhaler Inhale 1 (one) puff every 6 (six) hours as neededfor wheezing . albuterol 90 mcg/actuation inhaler Inhale 2 puffs every 6 (six) hours as needed for wheezing . albuterol 90 mcg/actuation inhaler albuterol sulfate HFA 90 mcg/actuation aerosol inhaler amLODIPine (NORVASC) 5 MG tablet Take 5 mg by mouth daily . Anoro Ellipta 62.5-25 mcg/actuation DsDv Inhale 2 puffs daily . beclomethasone (QVAR) 40 mcg/actuation inhaler Inhale 2 (two) puffs 2 (two) times a day Rinse mouth. budesonide-formoteroL (SYMBICORT) 80-4.5 mcg/actuation inhaler 1 puff . caffeine 200 mg Take 200 mg by mouth daily . clonazePAM (KLONOPIN) 1 MG tablet Take 1 mg by mouth 2 (two) times a day as needed . DULoxetine (CYMBALTA) 60 MG capsule Take 60 mg by mouth 2 (two) times a day . furosemide (LASIX) 20 MG tablet Take 20 mg by mouth daily . ipratropium-albuteroL (DUO-NEB) 0.5-2.5 mg/3 ml nebulizer Take 3 mL by nebulization every 6 (six) hours as needed for wheezing or shortness of breath . lisinopril (PRINIVIL,ZESTRIL) 20 MG tablet Take 20 mg by mouth every evening . meclizine (ANTIVERT) 25 mg tablet Take 1 (one) tablet (25 mg total) by mouth every 6 (six) hours for 5 days . (Patient not taking: Reported on 04/20/2021 .) melatonin 5 mg Tab Take 5 mg by mouth nightly . mirtazapine (REMERON RODRIGO-TAB) 15 MG disintegrating tablet Dissolve 1 (one) tablet (15 mg total) on top of tongue nightly . (Patient not taking: Reported on 04/20/2021 .) montelukast (SINGULAIR) 10 mg tablet Take 10 mg by mouth daily . NARCAN 4 mg/actuation [address] Administer 1 spray into one nostril for known or suspected opioid overdose. If patient worsens or does not respond, may repeat in 2-3 minutes. . omeprazole (PRILOSEC) 40 MG capsule Take 1 (one) capsule (40 mg total) by mouth daily. (Patient nottaking: Reported on 04/20/2021 .) oxyCODONE-acetaminophen (PERCOCET) 10-325 mg per tablet Take 2 tablets by mouth 3 (three) times a day as needed . Qvar RediHaler 40 mcg/actuation HFAB Inhale 2 puffs 2 (two) times a day . ranitidine (ZANTAC) 300 MG tablet Take 1 (one) tablet (300 mg total) by mouth nightly. (Patient nottaking: Reported on 04/20/2021 .) rOPINIRole (REQUIP) 2 MG tablet Take 2 mg by mouth 3 (three) times a day Reasons: restless legs syndrome, an extreme discomfort in the calf muscles when sitting or lying down. sertraline (ZOLOFT) 50 MG tablet SUMAtriptan (IMITREX) 100 MG tablet Take 1 (one) tablet (100 mg total) by mouth as needed for migraine. (Patient not taking: Reported on 04/20/2021 .) traZODone (DESYREL) 50 MG tablet Take 50 mg by mouth nightly . Allergies: Duloxetine, Nsaids (non-steroidal anti-inflammatory drug), Ibuprofen, Lyrica [pregabalin], and Metformin Past Surgical History: Procedure Laterality Date ANTERIOR CERVICAL DISCECTOMY 02/25/2009 C5-6, C6-7 AR'BRITTON SHOULD SAD, SLAP, RCR, RESECT DISTAL CLAVICLE, BICEPS TENODESIS Right 11/04/2015 ARTHROPLASTY HIP TOTAL Right 02/27/2018 Procedure: RIGHT TOTAL HIP ARTHROPLASTY; Surgeon: Gabo Sears MD; Location: [facility] Main OR; Service: Orthopedic BACK SURGERY 2008,2002 x 2 Low back, BLADDER SUSPENSION bladder tie-up BRONCHOSCOPY CARDIAC CATHETERIZATION Bilateral 09/21/2006 COLONOSCOPY FOOT SURGERY Right 03/08/2005 Third interdigital neuroma excision, fourth metatarsal osteotomy w/capsulotomy, fifth metatarsal head excision HARDWARE REMOVAL ANTERIOR CERVICAL 07/22/2014 C5, C6-7 HARDWARE REMOVAL LUMBAR 01/02/2009 L5-S1 w/ redo decompression laminectomy HYSTERECTOMY CARLOS MANUEL BSO Bladder suspension KNEE ARTHROSCOPY W/ LASER Left 2014 LAMINECTOMY DECOMP LUMBAR W/FUSION 4 OR MORE LVL N/A 11/08/2017 Procedure: HARDWARE REMOVAL L4-S1, DECOMPRESSION/FUSION L2-L4, PLIF, REINSTRUMENT L2-S1; Surgeon: Alejo Hummel MD; Location: [facility] Main OR; Service: Orthopedic LAMINECTOMY DISC ANTERIOR CERVICAL W/ FUSION SINGLE LEVEL N/A 03/13/2021 Procedure: Anterior cervical discectomy fusion cervical4-5 with plate and allograft; Surgeon: Jose Fraga MD; Location: [facility] Main OR; Service: Orthopedic LUMBAR LAMINECTOMY 10/11/2003 L5-S1 decompression w/interbody fusion bilateral and posterior fusion fixation LUNG BIOPSY Right ROTATOR CUFF REPAIR Left TONSILLECTOMY TOTAL KNEE ARTHROPLASTY Right WISDOM TOOTH EXTRACTION Objective: BP (!) 162/98 Pulse 89 Ht 5' 6 Wt 89.8 kg (198 lb) SpO2 91% BMI 31.96 kg/m General alert, appears stated age, cooperative and no distress Cervical Local no palpable tenderness or local deformity and comfortable spontaneous ROM through the exam Wound Well healed anterior cervical scar Upper Extremity Motor Upper extremity motor exam: is strong and symmetric in all groups. Lower extremity motor is strong and symmetric in all groups. Gait/Balance normal gait and balance and narrow based casual gait Imaging: X-ray of the cervical spine 09/16/2021 Independent review of the images shows she is status post ACDF of the C4-5 level with plate and allograft. Her hardware appears to be satisfactorily aligned without evidence of loosening or complication. There does appear to be some bone incorporation with the disc space more so compared to x-rays obtained in May. The report is pending X-ray of the lumbar spine 06/25/2021 IMPRESSION: Redemonstration of surgical hardware associated with multilevel lumbar fusion L2 to S1, with intacthardware, stable posterolateral intertransverse fusion bone from L2 to S1, solid fusion at L4-L5 where there is a fusion graft spacer as well. Advanced degeneration L1-L2 interspace disc, marked endplate eburnation, vacuum disc phenomenon. There is minimal retrolisthesis of L1 on L2 of approximately 5 mm without change of the motion studies. Fixed retrolisthesis L2 on L3. No change on the motion studies. Arianna Ng CNP documented in this [id number] History of Present illness Narrative* Arianna Ng CNP - 06/25/2021 2:30 PM EDT Matthew Dickersonric Perez 1955 Impression/Plan: Problem List Items Addressed This Visit Musculoskeletal and Integument DDD (degenerative disc disease), lumbar Relevant Orders XR Lumbar Spine Standard with Flex/Ext 4+ Views Ambulatory referral to Physical Medicine Rehab Protrusion of cervical intervertebral disc C4-5 with stenosis Relevant Orders XR Cervical Spine AP/LAT Other Status post cervical spinal fusion - Primary Relevant Orders XR Cervical Spine AP/LAT Return in about 3 months (around 09/25/2021), or with x-rays. We will follow-up with x-ray imaging in 3 months to evaluate the status of her fusion. I have ordered low back x-rays for her low back pain. Clinical Findings: Matthew Perez presents to the clinic after her surgery: 03/13/2021: OPERATIVE PROCEDURE Anterior cervical decompression, anterior cervical fusion C 4 5 with plate and allograft. Assessment - 06/25/21 1329 Pain Assessment Pain Assessment 0-10 0-10 DVPRS 3/10 Pain Location Neck She has done okay since surgery. She has minimal neck pain. She has no change in preoperative left arm numbness. She has no new upper extremity pain, loss sensation, or weakness. She is not had any wound complications. She denies trouble swallowing or changes in her voice. She walks and ambulates without difficulty. She has resumed her normal baseline pain medication prescription of Percocet. She has more bothersome low back pain. She reports this never stops. She has intermittent variable lower extremity radicular pain. She has not had any recent lumbar x-rays. She is interested in pursuing injections. Past Medical History: Diagnosis Date Anxiety Arthritis osteo Asthma 08/23/2014 COPD (chronic obstructive pulmonary disease) ([facility]) Depression Diastolic dysfunction mild per echo on 06/08/2019 Fibromyalgia, primary GERD (gastroesophageal reflux disease) patient denies Hypertension controlled Hypertension 04/01/2015 Migraines Obesity AYO (obstructive sleep apnea) unable to use cpap; recently received mouthpiece but not using Pneumonia x2 , had 2 pneumonia shots Restless legs syndrome Shoulder joint pain Spinal stenosis Varicose veins of both lower extremities Patient Active Problem List Diagnosis AYO (obstructive sleep apnea) Asthma Balance disorder Hypertension Protrusion of cervical intervertebral disc C4-5 with stenosis Brachial neuritis Lumbar pain Depression Pre-diabetes Dysphagia Cataract Migraine Bronchogenic cancer (HCC) Restless legs syndrome Tendinopathy of rotator cuff Varicose vein History of cardiomyopathy Iron deficiency Obesity Difficulty walking Encounter for long-term use of opiate analgesic Varicose veins of lower extremities with complications Leg pain Postlaminectomy syndrome of lumbar region Lumbar stenosis with neurogenic claudication Spinal stenosis DDD (degenerative disc disease), lumbar Hip osteoarthritis Acute blood loss as cause of postoperative anemia S/P total hip arthroplasty Osteoarthritis of multiple joints Vertigo History of falling Rectocele Protrusion of cervical intervertebral disc C4-5 with stenosis Diastolic dysfunction Preoperative cardiovascular examination Status post cervical spinal fusion Hypertensive heart disease without heart failure Inguinal pain Outpatient Medications as of 06/25/2021 Medication Sig albuterol (PROVENTIL) 2.5 mg /3 mL (0.083 %) nebulizer solution Take 2.5 mg by nebulization daily as needed . albuterol (Ventolin HFA) 90 mcg/actuation inhaler Inhale 1 (one) puff every 6 (six) hours as neededfor wheezing . albuterol 90 mcg/actuation inhaler Inhale 2 puffs every 6 (six) hours as needed for wheezing . albuterol 90 mcg/actuation inhaler albuterol sulfate HFA 90 mcg/actuation aerosol inhaler amLODIPine (NORVASC) 5 MG tablet Take 5 mg by mouth daily . Anoro Ellipta 62.5-25 mcg/actuation DsDv Inhale 2 puffs daily . beclomethasone (QVAR) 40 mcg/actuation inhaler Inhale 2 (two) puffs 2 (two) times a day Rinse mouth. budesonide-formoteroL (SYMBICORT) 80-4.5 mcg/actuation inhaler 1 puff . caffeine 200 mg Take 200 mg by mouth daily . clonazePAM (KLONOPIN) 1 MG tablet Take 1 mg by mouth 2 (two) times a day as needed . DULoxetine (CYMBALTA) 60 MG capsule Take 60 mg by mouth 2 (two) times a day . furosemide (LASIX) 20 MG tablet Take 20 mg by mouth daily . ipratropium-albuteroL (DUO-NEB) 0.5-2.5 mg/3 ml nebulizer Take 3 mL by nebulization every 6 (six) hours as needed for wheezing or shortness of breath . lisinopril (PRINIVIL,ZESTRIL) 20 MG tablet Take 20 mg by mouth every evening . meclizine (ANTIVERT) 25 mg tablet Take 1 (one) tablet (25 mg total) by mouth every 6 (six) hours for 5 days . (Patient not taking: Reported on 04/20/2021 .) melatonin 5 mg Tab Take 5 mg by mouth nightly . mirtazapine (REMERON RODRIGO-TAB) 15 MG disintegrating tablet Dissolve 1 (one) tablet (15 mg total) on top of tongue nightly . (Patient not taking: Reported on 04/20/2021 .) montelukast (SINGULAIR) 10 mg tablet Take 10 mg by mouth daily . NARCAN 4 mg/actuation [address] Administer 1 spray into one nostril for known or suspected opioid overdose. If patient worsens or does not respond, may repeat in 2-3 minutes. . omeprazole (PRILOSEC) 40 MG capsule Take 1 (one) capsule (40 mg total) by mouth daily. (Patient nottaking: Reported on 04/20/2021 .) oxyCODONE-acetaminophen (PERCOCET) 10-325 mg per tablet Take 2 tablets by mouth 3 (three) times a day as needed . Qvar RediHaler 40 mcg/actuation HFAB Inhale 2 puffs 2 (two) times a day . ranitidine (ZANTAC) 300 MG tablet Take 1 (one) tablet (300 mg total) by mouth nightly. (Patient nottaking: Reported on 04/20/2021 .) rOPINIRole (REQUIP) 2 MG tablet Take 2 mg by mouth 3 (three) times a day Reasons: restless legs syndrome, an extreme discomfort in the calf muscles when sitting or lying down. sertraline (ZOLOFT) 50 MG tablet SUMAtriptan (IMITREX) 100 MG tablet Take 1 (one) tablet (100 mg total) by mouth as needed for migraine. (Patient not taking: Reported on 04/20/2021 .) traZODone (DESYREL) 50 MG tablet Take 50 mg by mouth nightly . Allergies: Duloxetine, Nsaids (non-steroidal anti-inflammatory drug), Ibuprofen, Lyrica [pregabalin], and Metformin Past Surgical History: Procedure Laterality Date ANTERIOR CERVICAL DISCECTOMY 02/25/2009 C5-6, C6-7 AR'BRITTON SHOULD SAD, SLAP, RCR, RESECT DISTAL CLAVICLE, BICEPS TENODESIS Right 11/04/2015 ARTHROPLASTY HIP TOTAL Right 02/27/2018 Procedure: RIGHT TOTAL HIP ARTHROPLASTY; Surgeon: Gabo Sears MD; Location: [facility] Main OR; Service: Orthopedic BACK SURGERY 2008,2002 x 2 Low back, BLADDER SUSPENSION bladder tie-up BRONCHOSCOPY CARDIAC CATHETERIZATION Bilateral 09/21/2006 COLONOSCOPY FOOT SURGERY Right 03/08/2005 Third interdigital neuroma excision, fourth metatarsal osteotomy w/capsulotomy, fifth metatarsal head excision HARDWARE REMOVAL ANTERIOR CERVICAL 07/22/2014 C5, C6-7 HARDWARE REMOVAL LUMBAR 01/02/2009 L5-S1 w/ redo decompression laminectomy HYSTERECTOMY CARLOS MANUEL BSO Bladder suspension KNEE ARTHROSCOPY W/ LASER Left 2013 LAMINECTOMY DECOMP LUMBAR W/FUSION 4 OR MORE LVL N/A 11/08/2017 Procedure: HARDWARE REMOVAL L4-S1, DECOMPRESSION/FUSION L2-L4, PLIF, REINSTRUMENT L2-S1; Surgeon: Alejo Hummel MD; Location: [facility] Main OR; Service: Orthopedic LAMINECTOMY DISC ANTERIOR CERVICAL W/ FUSION SINGLE LEVEL N/A 03/13/2021 Procedure: Anterior cervical discectomy fusion cervical4-5 with plate and allograft; Surgeon: Jose Fraga MD; Location: [facility] Main OR; Service: Orthopedic LUMBAR LAMINECTOMY 10/11/2003 L5-S1 decompression w/interbody fusion bilateral and posterior fusion fixation LUNG BIOPSY Right ROTATOR CUFF REPAIR Left TONSILLECTOMY TOTAL KNEE ARTHROPLASTY Right WISDOM TOOTH EXTRACTION Objective: BP 114/75 Pulse (!) 110 Ht 5' 6 Wt 89.8 kg (198 lb) BMI 31.96 kg/m General alert, appears stated age, cooperative and no distress Cervical Local no palpable tenderness or local deformity and comfortable spontaneous ROM through the exam Wound Well healed anterior cervical scar Upper Extremity Motor Upper extremity motor exam: is strong and symmetric in all groups. Lower extremity motor is strong and symmetric in all groups. Gait/Balance normal gait and balance and narrow based casual gait Imaging: X-rays of the cervical spine 06/24/2021 Independent review of the images shows she is most recently status post anterior cervical decompression and fusion of C4-5 with plate and allograft. Hardware appears to be satisfactorily aligned without evidence of loosening or complication. I do not see much evidence of bone incorporation this mayindicate delayed healing The report is pending Arianna Ng CNP documented in this [id number] Miscellaneous Notes* Assessment & Plan Note - Jose Parrish MD - 06/04/2021 7:13 AM EDT Associated Problem(s): Depression My clinical impression during the office visit is that her continuing depression plays a significant role in her discomfort and pain management. * Assessment & Plan Note - Jose Parrish MD - 06/04/2021 7:12 AM EDT Associated Problem(s): Inguinal pain By history, physical exam and duplex sonography of the patient's varicose veins are asymptomatic. The patient's varicosities are not associated with her inguinal pain. The patient's pain pattern and description of symptoms is more commensurate with musculoskeletal discomfort. Recommendation: Continued orthopedic care for the musculoskeletal discomfort both inguinal regions. documented in this [id number] History of Present illness Narrative* Jose Parrish MD - 06/03/2021 11:33 AM EDT Images from the original note were not included. Assessment Inguinal pain By history, physical exam and duplex sonography of the patient's varicose veins are asymptomatic. The patient's varicosities are not associated with her inguinal pain. The patient's pain pattern and description of symptoms is more commensurate with musculoskeletal discomfort. Recommendation: Continued orthopedic care for the musculoskeletal discomfort both inguinal regions. Depression My clinical impression during the office visit is that her continuing depression plays a significant role in her discomfort and pain management. Matthew Perez 1955 66 y.o. female who presents to the office in consultation for varicose veins. The patient's predominant complaint is that she has inguinal pain bilaterally that she ascribes toher varicose veins. On a couple of occasions the inguinal pain has been very severe. The inguinal pain is present regardless of position and activity. The patient wished evaluation of her varicose veins. The patient has not had an episode of superficial thrombophlebitis or deep venous thrombosis. Duplex sonography completed on May 28, 2021 revealed no evidence of deep or superficial thrombosis in either lower extremity. Past Medical History: Diagnosis Date Anxiety Arthritis osteo Asthma 08/23/2014 Chronic pain disorder rt foot, hx 4 foot fractures; calves of legs cause pain,muscle spasms COPD (chronic obstructive pulmonary disease) (HCC) Depression Diastolic dysfunction mild per echo on 06/08/2019 Fibromyalgia, primary GERD (gastroesophageal reflux disease) patient denies Hypertension controlled Hypertension 04/01/2015 Migraines Obesity AYO (obstructive sleep apnea) unable to use cpap; recently received mouthpiece but not using Pneumonia x2 , had 2 pneumonia shots Restless legs syndrome Shoulder joint pain Spinal stenosis Varicose veins of both lower extremities Past Surgical History: Procedure Laterality Date ANTERIOR CERVICAL DISCECTOMY 02/25/2009 C5-6, C6-7 AR'SCOPY SHOULD SAD, SLAP, RCR, RESECT DISTAL CLAVICLE, BICEPS TENODESIS Right 11/04/2015 ARTHROPLASTY HIP TOTAL Right 02/27/2018 Procedure: RIGHT TOTAL HIP ARTHROPLASTY; Surgeon: Gabo Sears MD; Location: [facility] Main OR; Service: Orthopedic BACK SURGERY 2008,2002 x 2 Low back, BLADDER SUSPENSION bladder tie-up BRONCHOSCOPY CARDIAC CATHETERIZATION Bilateral 09/21/2006 COLONOSCOPY FOOT SURGERY Right 03/08/2005 Third interdigital neuroma excision, fourth metatarsal osteotomy w/capsulotomy, fifth metatarsal head excision HARDWARE REMOVAL ANTERIOR CERVICAL 07/22/2014 C5, C6-7 HARDWARE REMOVAL LUMBAR 01/02/2009 L5-S1 w/ redo decompression laminectomy HYSTERECTOMY CARLOS MANUEL BSO Bladder suspension KNEE ARTHROSCOPY W/ LASER Left 2014 LAMINECTOMY DECOMP LUMBAR W/FUSION 4 OR MORE LVL N/A 11/08/2017 Procedure: HARDWARE REMOVAL L4-S1, DECOMPRESSION/FUSION L2-L4, PLIF, REINSTRUMENT L2-S1; Surgeon: Alejo Hummel MD; Location: [facility] Main OR; Service: Orthopedic LAMINECTOMY DISC ANTERIOR CERVICAL W/ FUSION SINGLE LEVEL N/A 03/13/2021 Procedure: Anterior cervical discectomy fusion cervical4-5 with plate and allograft; Surgeon: Jose Fraga MD; Location: [facility] Main OR; Service: Orthopedic LUMBAR LAMINECTOMY 10/11/2003 L5-S1 decompression w/interbody fusion bilateral and posterior fusion fixation LUNG BIOPSY Right ROTATOR CUFF REPAIR Left TONSILLECTOMY TOTAL KNEE ARTHROPLASTY Right VEIN SURGERY 2014 vein taken out in lower Left leg in [place] SANCHES TOOTH EXTRACTION Current Outpatient Medications Medication Sig Dispense Refill albuterol (PROVENTIL) 2.5 mg /3 mL (0.083 %) nebulizer solution Take 2.5 mg by nebulization daily as needed . albuterol (Ventolin HFA) 90 mcg/actuation inhaler Inhale 1 (one) puff every 6 (six) hours as neededfor wheezing . 1 Inhaler 4 albuterol 90 mcg/actuation inhaler Inhale 2 puffs every 6 (six) hours as needed for wheezing . albuterol 90 mcg/actuation inhaler albuterol sulfate HFA 90 mcg/actuation aerosol inhaler amLODIPine (NORVASC) 5 MG tablet Take 5 mg by mouth daily . Anoro Ellipta 62.5-25 mcg/actuation DsDv Inhale 2 puffs daily . beclomethasone (QVAR) 40 mcg/actuation inhaler Inhale 2 (two) puffs 2 (two) times a day Rinse mouth. 1 Inhaler 5 budesonide-formoteroL (SYMBICORT) 80-4.5 mcg/actuation inhaler 1 puff . caffeine 200 mg Take 200 mg by mouth daily . clonazePAM (KLONOPIN) 1 MG tablet Take 1 mg by mouth 2 (two) times a day as needed . DULoxetine (CYMBALTA) 60 MG capsule Take 60 mg by mouth 2 (two) times a day . furosemide (LASIX) 20 MG tablet Take 20 mg by mouth daily . lisinopril (PRINIVIL,ZESTRIL) 20 MG tablet Take 20 mg by mouth every evening . melatonin 5 mg Tab Take 5 mg by mouth nightly . montelukast (SINGULAIR) 10 mg tablet Take 10 mg by mouth daily . NARCAN 4 mg/actuation [address] Administer 1 spray into one nostril for known or suspected opioid overdose. If patient worsens or does not respond, may repeat in 2-3 minutes. . 1 Package 0 oxyCODONE-acetaminophen (PERCOCET) 10-325 mg per tablet Take 2 tablets by mouth 3 (three) times a day as needed . Qvar RediHaler 40 mcg/actuation HFAB Inhale 2 puffs 2 (two) times a day . rOPINIRole (REQUIP) 2 MG tablet Take 2 mg by mouth 3 (three) times a day Reasons: restless legs syndrome, an extreme discomfort in the calf muscles when sitting or lying down. sertraline (ZOLOFT) 50 MG tablet traZODone (DESYREL) 50 MG tablet Take 50 mg by mouth nightly . ipratropium-albuteroL (DUO-NEB) 0.5-2.5 mg/3 ml nebulizer Take 3 mL by nebulization every 6 (six) hours as needed for wheezing or shortness of breath . 360 mL 0 meclizine (ANTIVERT) 25 mg tablet Take 1 (one) tablet (25 mg total) by mouth every 6 (six) hours for 5 days . (Patient not taking: Reported on 04/20/2021 .) 20 tablet 0 mirtazapine (REMERON RODRIGO-TAB) 15 MG disintegrating tablet Dissolve 1 (one) tablet (15 mg total) on top of tongue nightly . (Patient not taking: Reported on 04/20/2021 .) 30 tablet 0 omeprazole (PRILOSEC) 40 MG capsule Take 1 (one) capsule (40 mg total) by mouth daily. (Patient nottaking: Reported on 04/20/2021 .) 30 capsule 5 ranitidine (ZANTAC) 300 MG tablet Take 1 (one) tablet (300 mg total) by mouth nightly. (Patient nottaking: Reported on 04/20/2021 .) 30 tablet 5 SUMAtriptan (IMITREX) 100 MG tablet Take 1 (one) tablet (100 mg total) by mouth as needed for migraine. (Patient not taking: Reported on 04/20/2021 .) 6 tablet 0 No current facility-administered medications for this visit. Family History Problem Relation Age of Onset Hypertension Father Heart disease Father Diabetes Father Breast cancer Mother ; cancer went to brain, liver and lungs Brain cancer Mother Liver cancer Mother Lung cancer Mother Hypertension Sister Diabetes Sister Hypertension Other siblings Diabetes Other siblings No Known Problems Brother Surgical complications Neg Hx Anesthesia problems Neg Hx Clotting disorder Neg Hx Deep vein thrombosis Neg Hx Pulmonary embolism Neg Hx Social History Tobacco Use Smoking status: Never Smoker Smokeless tobacco: Never Used Tobacco comment: 04/21/21 Vaping Use Vaping Use: Never used Substance Use Topics Alcohol use: Yes Alcohol/week: 0.0 standard drinks Comment: sometimes 10 a year; rare Drug use: No Comment: tried all forms of medical marijuana without positive results in last 6 weeks Review of Systems Constitutional: Positive for decreased appetite and weight loss. Negative for malaise/fatigue. HENT: Positive for hoarse voice. Negative for hearing loss and nosebleeds. Eyes: Negative for double vision, vision loss in left eye and vision loss in right eye. Cardiovascular: Positive for chest pain, dyspnea on exertion, leg swelling (ankles) and palpitations. Negative for orthopnea. Respiratory: Negative for cough, hemoptysis and sputum production. Endocrine: Negative for cold intolerance, heat intolerance, polydipsia, polyphagia and polyuria. Hematologic/Lymphatic: Bruises/bleeds easily. Skin: Negative for poor wound healing, rash and skin cancer. Musculoskeletal: Positive for arthritis, back pain and joint pain. Gastrointestinal: Positive for abdominal pain. Negative for hematochezia and melena. Genitourinary: Negative for dysuria, frequency and hematuria. Neurological: Negative for aphonia, brief paralysis and seizures. Psychiatric/Behavioral: Positive for depression. Negative for memory loss. The patient is nervous/anxious. BP 121/77 (BP Location: Left arm, Patient Position: Sitting, BP Cuff Size: Adult) Pulse (!) 105 Resp 18 Ht 5' 6 Wt 90.2 kg (198 lb 14.4 oz) SpO2 92% BMI 32.10 kg/m Physical Exam Constitutional: Appearance: She is obese. HENT: Head: Normocephalic and atraumatic. Eyes: General: No scleral icterus. Conjunctiva/sclera: Conjunctivae normal. Pupils: Pupils are equal, round, and reactive to light. Cardiovascular: Rate and Rhythm: Normal rate and regular rhythm. Pulses: Carotid pulses are 2+ on the right side and 2+ on the left side. Radial pulses are 2+ on the right side and 2+ on the left side. Femoral pulses are 2+ on the right side and 2+ on the left side. Popliteal pulses are 1+ on the right side and 1+ on the left side. Dorsalis pedis pulses are 1+ on the right side and 1+ on the left side. Posterior tibial pulses are 1+ on the right side and 1+ on the left side. Heart sounds: Heart sounds not distant. No murmur heard. No gallop. Pulmonary: Effort: Pulmonary effort is normal. No respiratory distress. Breath sounds: Normal breath sounds. Abdominal: General: Bowel sounds are normal. There is no distension. Palpations: Abdomen is soft. Tenderness: There is no abdominal tenderness. Musculoskeletal: General: No tenderness. Normal range of motion. Cervical back: Normal range of motion and neck supple. Legs: Skin: General: Skin is warm and dry. Neurological: Mental Status: She is alert and oriented to person, place, and time. Cranial Nerves: No cranial nerve deficit. Coordination: Coordination normal. Psychiatric: Mood and Affect: Mood is depressed. Speech: Speech normal. Behavior: Behavior normal. Thought Content: Thought content normal. Comments: The patient was somewhat tearful that I did not believe that her varicose veins were the etiology of her discomfort and was not offering a surgical procedure The note was dictated using [employer] dictation system. The voice recognition software is inherently subject to errors including those of syntax and sound- alike substitutions which may escape proofreading. In such instances, original meaning may be extrapolated by contextual derivation. documented in this [id number] History of Present illness Narrative* Dilip Mckeon MD - 05/25/2021 4:20 PM EDT Matthew Dickinson66 y.o. female BEING SEEN TODAY, 05/25/21, FOR Results (SLEEP) . . Dictation on: 05/25/2021 5:05 PM by: DILIP MCKEON [[id number]] HPI Review of Systems Constitutional: Negative for chills and fatigue. HENT: Negative for drooling and ear pain. Respiratory: Positive for shortness of breath. Negative for cough, chest tightness and wheezing. Cardiovascular: Negative for chest pain. Gastrointestinal: Negative for abdominal distention and abdominal pain. Endocrine: Negative. Genitourinary: Negative. Musculoskeletal: Negative. Skin: Negative. Neurological: Negative for dizziness, seizures and speech difficulty. Past Medical History: Diagnosis Date Anxiety Arthritis osteo Asthma 08/23/2014 Chronic pain disorder rt foot, hx 4 foot fractures; calves of legs cause pain,muscle spasms COPD (chronic obstructive pulmonary disease) ([facility]) Depression Diastolic dysfunction mild per echo on 06/08/2019 Fibromyalgia, primary GERD (gastroesophageal reflux disease) patient denies Hypertension controlled Hypertension 04/01/2015 Migraines Obesity AYO (obstructive sleep apnea) unable to use cpap; recently received mouthpiece but not using Pneumonia x2 , had 2 pneumonia shots Restless legs syndrome Shoulder joint pain Spinal stenosis Varicose veins of both lower extremities Prior to Admission medications Medication Sig Start Date End Date Taking? Authorizing Provider albuterol (Ventolin HFA) 90 mcg/actuation inhaler Inhale 1 (one) puff every 6 (six) hours as neededfor wheezing . 04/22/21 04/22/22 Yes Dilip Mckeon MD albuterol 90 mcg/actuation inhaler Inhale 2 puffs every 6 (six) hours as needed for wheezing . Yes Historical Provider, albuterol 90 mcg/actuation inhaler albuterol sulfate HFA 90 mcg/actuation aerosol inhaler Yes Historical Provider, amLODIPine (NORVASC) 5 MG tablet Take 5 mg by mouth daily . 11/13/20 Yes Historical Provider, beclomethasone (QVAR) 40 mcg/actuation inhaler Inhale 2 (two) puffs 2 (two) times a day Rinse mouth. 05/07/21 05/07/22 Yes Dilip Mckeon MD caffeine 200 mg Take 200 mg by mouth daily . Yes Historical Provider, clonazePAM (KLONOPIN) 1 MG tablet Take 1 mg by mouth 2 (two) times a day as needed . 08/23/18 Yes Historical Provider, DULoxetine (CYMBALTA) 60 MG capsule Take 60 mg by mouth 2 (two) times a day . Yes Historical Provider, furosemide (LASIX) 20 MG tablet Take 20 mg by mouth daily . Yes Historical Provider, ipratropium-albuteroL (DUO-NEB) 0.5-2.5 mg/3 ml nebulizer Take 3 mL by nebulization every 6 (six) hours as needed for wheezing or shortness of breath . 03/31/21 05/20/21 Yes Devendra Mckeon MD lisinopril (PRINIVIL,ZESTRIL) 20 MG tablet Take 20 mg by mouth every evening . 06/27/15 Yes Historical Provider, melatonin 5 mg Tab Take 5 mg by mouth nightly . Yes Historical Provider, montelukast (SINGULAIR) 10 mg tablet Take 10 mg by mouth daily . Yes Historical Provider, NARCAN 4 mg/actuation [address] Administer 1 spray into one nostril for known or suspected opioid overdose. If patient worsens or does not respond, may repeat in 2-3 minutes. . 02/01/19 Yes Eyal Duron MD oxyCODONE-acetaminophen (PERCOCET) 10-325 mg per tablet Take 2 tablets by mouth 3 (three) times a day as needed . Yes Historical Provider, Qvar RediHaler 40 mcg/actuation HFAB Inhale 2 puffs 2 (two) times a day . 05/13/21 Yes Historical Provider, rOPINIRole (REQUIP) 2 MG tablet Take 2 mg by mouth 3 (three) times a day Reasons: restless legs syndrome, an extreme discomfort in the calf muscles when sitting or lying down. 12/11/16 Yes Historical Provider, traZODone (DESYREL) 50 MG tablet Take 50 mg by mouth nightly . 09/15/18 Yes Historical Provider, albuterol (PROVENTIL) 2.5 mg /3 mL (0.083 %) nebulizer solution Take 2.5 mg by nebulization daily as needed . 04/21/17 Historical Provider, Anoro Ellipta 62.5-25 mcg/actuation DsDv Inhale 2 puffs daily . 03/05/20 Historical Provider, budesonide-formoteroL (SYMBICORT) 80-4.5 mcg/actuation inhaler 1 puff . Historical Provider, meclizine (ANTIVERT) 25 mg tablet Take 1 (one) tablet (25 mg total) by mouth every 6 (six) hours for 5 days . Patient not taking: Reported on 04/20/2021 . 06/10/19 03/13/21 Cely Aguirre CNP mirtazapine (REMERON RODRIGO-TAB) 15 MG disintegrating tablet Dissolve 1 (one) tablet (15 mg total) on top of tongue nightly . Patient not taking: Reported on 04/20/2021 . 11/27/19 03/13/21 Eayl Duron MD omeprazole (PRILOSEC) 40 MG capsule Take 1 (one) capsule (40 mg total) by mouth daily. Patient not taking: Reported on 04/20/2021 . 09/04/18 03/13/21 Zac Ovalle MD ranitidine (ZANTAC) 300 MG tablet Take 1 (one) tablet (300 mg total) by mouth nightly. Patient not taking: Reported on 04/20/2021 . 09/04/18 03/13/21 Zac Ovalle MD sertraline (ZOLOFT) 50 MG tablet 04/13/21 Historical Provider, SUMAtriptan (IMITREX) 100 MG tablet Take 1 (one) tablet (100 mg total) by mouth as needed for migraine. Patient not taking: Reported on 04/20/2021 . 11/02/17 03/13/21 Eyal Duron MD [facility]/MAR[facility] GUADALUPExCHECK Report Received and Assessed: 12/30/2020 Date controlled substance agreement signed: 05/20/2020 Date of last drug screen: 12/30/2020 Functional Assessment: No data found There were no vitals taken for this visit. BONES AND SOFT TISSUES: Surgical plates and screws in the lower cervical and upper thoracic spine consistent with fusion. Suture anchor in the right humeral head.. IMPRESSION: No acute cardiopulmonary process. PULMONARY TESTING: @CXR/CT@ Oxygenation noticed to be in the 90s, average was 88, lowest was 70 and significant desaturation noticed. Snoring event 1999. Heart rate in 60s, average was 88, maximum 160. RESPIRATORY DISTURBANCE SUMMARY Zero apneas and hypopneas 63 with the index of 25 noticed, which is moderate obstructive sleep apnea, hypoxemia. Needs a CPAP titration. Will benefit from treatment. Sleep Study Read on 05/21/2021 Sleep Study Read on 05/21/2021 Detailed Report Matthew was seen today for results. Diagnoses and all orders for this visit: Obstructive sleep apnea - Miscellaneous DME Equipment Shortness of breath - Ambulatory referral to Allergy; Future Dilip mckeon MD. documented in this [id number] History of Present illness Narrative* Kiran Tena DO - 05/25/2021 9:04 AM EDT I have personally seen and examined the patient independently of the resident physician. I have reviewed the history, physical, diagnosis and care plan with the resident physician, Keesha Kinsey DO. I confirm the assessment and treatment plan: 58-year-old presenting today with chronic back pain andhip pain. Patient would like to pursue conservative treatment measures, acupuncture performed today. Follow-up with our office for repeat treatment as needed. Jerrell Sherman Protocol: GB-25 (Seirin 40mm), BL-52, BL-23 (Seirin 60mm) bilaterally with GV-4 Seirin 40mm 4Hz electrical stimulation for total of 15 minutes Tolerated procedure well, follow up for repeat treatment as needed Diagnoses and all orders for this visit: Chronic groin pain, unspecified laterality * Keesha KinseyDO - 05/18/2021 9:50 PM EDT Assessment/Plan: Problem List Items Addressed This Visit Other Chronic pain of inguinal region - Primary Could be related to chronic back and hip pain although patient does not believe so. No red flag signs -Continue treatment plan as laid out by PCP acupuncture today per Dr. Tena's note Subjective: Matthew Perez is a 66 y.o. female Chief Complaint Patient presents with acupuncture pain is near groin area and down leg HPI Pt is a 66 yo female who presents today to discuss chronic bilateral groin pain. This has been chronic for her and worsening over the last few months. She has had multiple lumbar and cervical spine surgeries as well as right hip replacement and bilateral knee replacement and a host of other surgeries. She stats her pain is constant and movement makes it worse. She was referred here by her insurance provider for acupuncture to help with her chronic pain. She is unable to lay down for long periods of time due to her chronic lumbar pain. She feels that her groin pain is separate from her back pain and not a radiculopathy. She denies any numbness/tinglign in her groin or saddle area. She deniesany loss or control of bowel or bladder and night sweats. The following portions of the patient's history were reviewed and updated as appropriate: allergies, current medications, past family history, past medical history, past social history, past surgicalhistory and problem list. Review of Systems All other systems reviewed and are negative. Objective: PACU Vitals 05/18/21 1438 BP: (!) 153/96 Pulse: Temp: SpO2: Physical Exam Constitutional: Appearance: Normal appearance. HENT: Head: Normocephalic. Musculoskeletal: Comments: Decreased ROM of hip joint due to pain. Tenderness to ASIS upon palpation as well as adductor musculature bilaterally Skin: General: Skin is warm and dry. Neurological: General: No focal deficit present. Mental Status: She is alert and oriented to person, place, and time. Psychiatric: Mood and Affect: Mood normal. Behavior: Behavior normal. Hearing and vision grossly normal. Goals None For any new medications prescribed today, patient was educated about indications for the medication, how to take the medication and potential side effects of the medications. documented in this [id number] History of Present illness Narrative* Dilip Mckeon MD - 05/21/2021 6:58 PM EDT Dictation on: 05/21/2021 6:59 PM by: DILIP MCKEON [[id number]] documented in this [id number] Miscellaneous Notes* Assessment & Plan Note - Keesha Kinsey DO - 05/18/2021 10:00 PM EDT Associated Problem(s): Chronic pain of inguinal region Could be related to chronic back and hip pain although patient does not believe so. No red flag signs -Continue treatment plan as laid out by PCP acupuncture today per Dr. Tena's note documented in this [id number] History of Present illness Narrative* Keesha Kinsey DO - 05/18/2021 9:50 PM EDT Assessment/Plan: Problem List Items Addressed This Visit Other Chronic pain of inguinal region - Primary Could be related to chronic back and hip pain although patient does not believe so. No red flag signs -Continue treatment plan as laid out by PCP acupuncture today per Dr. Tena's note Subjective: Matthew Perez is a 66 y.o. female Chief Complaint Patient presents with acupuncture pain is near groin area and down leg HPI Pt is a 66 yo female who presents today to discuss chronic bilateral groin pain. This has been chronic for her and worsening over the last few months. She has had multiple lumbar and cervical spine surgeries as well as right hip replacement and bilateral knee replacement and a host of other surgeries. She stats her pain is constant and movement makes it worse. She was referred here by her insurance provider for acupuncture to help with her chronic pain. She is unable to lay down for long periods of time due to her chronic lumbar pain. She feels that her groin pain is separate from her back pain and not a radiculopathy. She denies any numbness/tinglign in her groin or saddle area. She deniesany loss or control of bowel or bladder and night sweats. The following portions of the patient's history were reviewed and updated as appropriate: allergies, current medications, past family history, past medical history, past social history, past surgicalhistory and problem list. Review of Systems All other systems reviewed and are negative. Objective: PACU Vitals 05/18/21 1438 BP: (!) 153/96 Pulse: Temp: SpO2: Physical Exam Constitutional: Appearance: Normal appearance. HENT: Head: Normocephalic. Musculoskeletal: Comments: Decreased ROM of hip joint due to pain. Tenderness to ASIS upon palpation as well as adductor musculature bilaterally Skin: General: Skin is warm and dry. Neurological: General: No focal deficit present. Mental Status: She is alert and oriented to person, place, and time. Psychiatric: Mood and Affect: Mood normal. Behavior: Behavior normal. Hearing and vision grossly normal. Goals None For any new medications prescribed today, patient was educated about indications for the medication, how to take the medication and potential side effects of the medications. documented in this [id number] Miscellaneous Notes* Telephone Encounter - Fani Chairez LPN - 05/07/2021 4:39 PM EDT She needs a refill because her dose got increased from 1 puff BID to 2 puffs BID documented in this [id number] History of Present illness Narrative* Dilip Mckeon MD - 04/22/2021 9:45 AM EDT Matthew PerezISA66 y.o. female BEING SEEN TODAY, 04/22/21, FOR Follow- up (unable to use duo neb as she feels like she chokes, also feels like her inhalers worsens her SOB and blocks airway),COPD, and Shortness of Breath (with all activity, would also like a swallow test) Ms. Perez was seen today regarding shortness of breath. A 66-year-old female, past medical history significant for obesity with a BMI of 32, obstructive sleep apnea on supplemental oxygen, and history of reactive airway disease, not COPD. She was seen regarding shortness of breath. Recently had surgery, went okay, but going for multiple surgeries in near future. Otherwise, denies any cough, phlegm, fever, chills. Does have ongoing shortness of breath just getting around at home. Denies any leg pain, swelling. Currently on albuterol and was seen today regarding further evaluation. She does not take Anoro and taking supplemental oxygen at nighttime. Denies any cough, phlegm, fever, chills. Otherwise, chest x-ray reviewed without acute changes. PFT revealed mild airway obstruction, but without acute changes. PERTINENT FINDINGS Today lungs clear. No accessory muscle use. Good chest expansion. IMPRESSION Reactive airway disease, such as mild persistent asthma is likely. There is no chronic obstructive pulmonary disease. Advised discontinue Anoro and Qvar added. Demonstration shown. Advised to rinse mouth after each use along with the albuterol. For sleep apnea, will follow up on home sleep test, and need for continuous positive airway pressure was discussed in view of ongoing weight gain and dyspnea. Otherwise, no need for antibiotic, steroids. Reassurance given. [id number] time spent 20 minutes. Thank you, Dr. Gee. cc:HARMONY GEE MD HPI Review of Systems Constitutional: Negative for chills and fatigue. HENT: Negative for drooling and ear pain. Respiratory: Positive for shortness of breath. Negative for cough, chest tightness and wheezing. Cardiovascular: Negative for chest pain. Gastrointestinal: Negative for abdominal distention and abdominal pain. Endocrine: Negative. Genitourinary: Negative. Musculoskeletal: Negative. Skin: Negative. Neurological: Negative for dizziness, seizures and speech difficulty. Past Medical History: Diagnosis Date Anxiety Arthritis osteo Asthma 08/23/2014 Chronic pain disorder rt foot, hx 4 foot fractures; calves of legs cause pain,muscle spasms COPD (chronic obstructive pulmonary disease) (HCC) Depression Diastolic dysfunction mild per echo on 06/08/2019 Fibromyalgia, primary GERD (gastroesophageal reflux disease) patient denies Hypertension controlled Hypertension 04/01/2015 Migraines Obesity AYO (obstructive sleep apnea) unable to use cpap; recently received mouthpiece but not using Pneumonia x2 , had 2 pneumonia shots Restless legs syndrome Shoulder joint pain Spinal stenosis Varicose veins of both lower extremities Prior to Admission medications Medication Sig Start Date End Date Taking? Authorizing Provider albuterol 90 mcg/actuation inhaler Inhale 2 puffs every 6 (six) hours as needed for wheezing . Yes Historical Provider, amLODIPine (NORVASC) 5 MG tablet Take 5 mg by mouth daily . 11/13/20 Yes Historical Provider, caffeine 200 mg Take 200 mg by mouth daily . Yes Historical Provider, clonazePAM (KLONOPIN) 1 MG tablet Take 1 mg by mouth 2 (two) times a day as needed . 08/23/18 Yes Historical Provider, DULoxetine (CYMBALTA) 60 MG capsule Take 60 mg by mouth 2 (two) times a day . Yes Historical Provider, furosemide (LASIX) 20 MG tablet Take 20 mg by mouth daily . Yes Historical Provider, lisinopril (PRINIVIL,ZESTRIL) 20 MG tablet Take 20 mg by mouth every evening . 06/27/15 Yes Historical Provider, melatonin 5 mg Tab Take 5 mg by mouth nightly . Yes Historical Provider, montelukast (SINGULAIR) 10 mg tablet Take 10 mg by mouth daily . Yes Historical Provider, NARCAN 4 mg/actuation [address] Administer 1 spray into one nostril for known or suspected opioid overdose. If patient worsens or does not respond, may repeat in 2-3 minutes. . 02/01/19 Yes Eyal Duron MD oxyCODONE-acetaminophen (PERCOCET) 10-325 mg per tablet Take 2 tablets by mouth 3 (three) times a day as needed . Yes Historical Provider, rOPINIRole (REQUIP) 2 MG tablet Take 2 mg by mouth 3 (three) times a day Reasons: restless legs syndrome, an extreme discomfort in the calf muscles when sitting or lying down. 12/11/16 Yes Historical Provider, sertraline (ZOLOFT) 50 MG tablet 04/13/21 Yes Historical Provider, traZODone (DESYREL) 50 MG tablet Take 50 mg by mouth nightly . 09/15/18 Yes Historical Provider, albuterol (PROVENTIL) 2.5 mg /3 mL (0.083 %) nebulizer solution Take 2.5 mg by nebulization daily as needed . 04/21/17 Historical Provider, albuterol (Ventolin HFA) 90 mcg/actuation inhaler Inhale 1 (one) puff every 6 (six) hours as neededfor wheezing . 04/22/21 04/22/22 Dilip Mckeon MD Anoro Ellipta 62.5-25 mcg/actuation DsDv Inhale 2 puffs daily . 03/05/20 Historical Provider, beclomethasone (QVAR) 40 mcg/actuation inhaler Inhale 1 (one) puff 2 (two) times a day Rinse mouth . 04/22/21 04/22/22 Dilip Mckeon MD budesonide-formoteroL (SYMBICORT) 80-4.5 mcg/actuation inhaler 1 puff . Historical Provider, ipratropium-albuteroL (DUO-NEB) 0.5-2.5 mg/3 ml nebulizer Take 3 mL by nebulization every 6 (six) hours as needed for wheezing or shortness of breath . Patient not taking: Reported on 04/21/2021 . 03/31/21 04/30/21 Devendra Mckeon MD meclizine (ANTIVERT) 25 mg tablet Take 1 (one) tablet (25 mg total) by mouth every 6 (six) hours for 5 days . Patient not taking: Reported on 04/20/2021 . 06/10/19 03/13/21 Cely Aguirre CNP mirtazapine (REMERON RODRIGO-TAB) 15 MG disintegrating tablet Dissolve 1 (one) tablet (15 mg total) on top of tongue nightly . Patient not taking: Reported on 04/20/2021 . 11/27/19 03/13/21 Eyal Duron MD omeprazole (PRILOSEC) 40 MG capsule Take 1 (one) capsule (40 mg total) by mouth daily. Patient not taking: Reported on 04/20/2021 . 09/04/18 03/13/21 Zac Ovalle MD ranitidine (ZANTAC) 300 MG tablet Take 1 (one) tablet (300 mg total) by mouth nightly. Patient not taking: Reported on 04/20/2021 . 09/04/18 03/13/21 Zac Ovalle MD SUMAtriptan (IMITREX) 100 MG tablet Take 1 (one) tablet (100 mg total) by mouth as needed for migraine. Patient not taking: Reported on 04/20/2021 . 11/02/17 03/13/21 Eyal Duron MD [facility]/Vaishali Report Received and Assessed: 12/30/2020 Date controlled substance agreement signed: 05/20/2020 Date of last drug screen: 12/30/2020 Functional Assessment: No data found BP 127/82 Pulse (!) 110 Ht 5' 6 Wt 90.7 kg (200 lb) SpO2 92% Comment: room air BMI 32.28kg/m Physical Exam Constitutional: Appearance: She is well-developed. HENT: Head: Normocephalic and atraumatic. Eyes: Pupils: Pupils are equal, round, and reactive to light. Cardiovascular: Rate and Rhythm: Normal rate and regular rhythm. Heart sounds: Normal heart sounds. Pulmonary: Effort: Pulmonary effort is normal. No respiratory distress. Breath sounds: No wheezing. Chest: Chest wall: No tenderness. Skin: General: Skin is warm. Neurological: Mental Status: She is alert and oriented to person, place, and time. PULMONARY TESTING:Above noted Low fev1, normal fvc Bd response noted Normal lung volume and normal diffusion Imp ; mild obstruction , Asthma is likely. @CXR/CT@FINDINGS: The lungs are clear without focal consolidation, pleural effusion, or pneumothorax. Surgical suturematerial in the left lung. No visible rib fractures. Cardiac silhouette is normal in size. Osseous structures within normal limits. Cervicothoracic fusion hardware noted. IMPRESSION: No acute findings. Matthew was seen today for follow-up, copd and shortness of breath. Diagnoses and all orders for this visit: AYO (obstructive sleep apnea) - Ambulatory referral to Sleep Medicine; Future Other orders - beclomethasone (QVAR) 40 mcg/actuation inhaler; Inhale 1 (one) puff 2 (two) times a day Rinse mouth . - albuterol (Ventolin HFA) 90 mcg/actuation inhaler; Inhale 1 (one) puff every 6 (six) hours as needed for wheezing . total time spent 33 min, includes 20 min of face to face. Dilip mckeon MD. documented in this [id number] Miscellaneous Notes* Assessment & Plan Note - Pablo Mullen MD - 04/21/2021 9:45 PM EDT Associated Problem(s): Obesity Counseling for weight reduction was given to the patient. I discussed various strategies of weight loss including dietary changes and exercise. Dietary changes including reducing calorie intake to nomore than 2000 Kcal / day. Increasing fibre content, reducing salt intake and balanced diet and timely eating habits were discussed in detail. * Assessment & Plan Note - Pablo Mullen MD - 04/21/2021 9:44 PM EDT Associated Problem(s): Diastolic dysfunction Noted on ECHO-Doppler study of heart. * Assessment & Plan Note - Pablo Mullen MD - 04/21/2021 9:43 PM EDT Associated Problem(s): Hypertensive heart disease without heart failure Blood pressure is optimally controlled. JNC guideline for blood pressure goals was discussed with the patient. DASH diet was advised. Keep record of blood pressure regularly and report to PCP if persistently abnormal. Continue and optimize medical therapy as per patient's response and tolerance foroptimal blood pressure control. Patient has no significant angina or signs/symptoms of congestive heart failure. documented in this [id number] History of Present illness Narrative* Pablo Mullen MD - 04/21/2021 9:34 PM EDT ASSESSMENT: Hypertensive heart disease without heart failure Blood pressure is optimally controlled. JNC guideline for blood pressure goals was discussed with the patient. DASH diet was advised. Keep record of blood pressure regularly and report to PCP if persistently abnormal. Continue and optimize medical therapy as per patient's response and tolerance foroptimal blood pressure control. Patient has no significant angina or signs/symptoms of congestive heart failure. Diastolic dysfunction Noted on ECHO-Doppler study of heart. Obesity Counseling for weight reduction was given to the patient. I discussed various strategies of weight loss including dietary changes and exercise. Dietary changes including reducing calorie intake to nomore than 2000 Kcal / day. Increasing fibre content, reducing salt intake and balanced diet and timely eating habits were discussed in detail. PLAN AND RECOMMENDATIONS: I discussed with the patient and answered questions to the best of my ability. I personally reviewed the recent laboratory and radiological reports. I reviewed the current medications with patient. Reconcilliation of current medications was performed in the electronic medical record (EMR). Patient told me that She is adhering to the medical regimen prescribed. Plan as above. She seems to understand and agrees. I am also recommending to continue and optimize current cardiovascular medications. Diet and exercise programs were discussed as per [place] [employer] (ACC)/[place] [employer] (AHA) guidelines. I will see the patient in 12 months. SUBJECTIVE: Matthew Perez is an 66 y.o. female that has a past medical history of Anxiety, Arthritis, Asthma (08/23/2014), Chronic pain disorder, COPD (chronic obstructive pulmonary disease) ([facility]), Depression, Diastolic dysfunction, Fibromyalgia, primary, GERD (gastroesophageal reflux disease), Hypertension, Hypertension (04/01/2015), Migraines, Obesity, AYO (obstructive sleep apnea), Pneumonia, Restless legs syndrome, Shoulder joint pain, Spinal stenosis, and Varicose veins of both lower extremities.. She was seen in the cardiology clinic for follow up. Chart was reviewed and patient examined. The patient is known to me from previous evaluations. She is complaining of recurrent chest pain no. There is no throat tightness, jaw pain or arm pain. Inter-scapular pain no. Diaphoresis no. Dyspneayes. Patient has some dyspnea for several days. It is out of proportion to exertion. There is no resting dyspnea. It is of mild severity. Has not gained weight and has no edema.Orthopnea or paroxysmal nocturnal dyspnea (PND) no. Palpitation, dizziness or syncope no. Pedal edema no. Weight gain no .Recent fever or chills no. Chest trauma no. Redness in eyes no. Rhinorrhea no. Sore throat no. No involuntary weight loss. Pulmonary: No cough or hemoptysis. Gastrointestinal: Appetite is satisfactory. No abdominal pain, nausea, vomiting, diarrhea, hematemesis, melena or hematochezia. Musculoskeletal: No myalgia or arthralgia. No claudication in the legs. Genitourinary: No acute urinary symptoms. No hematuria. Neurological: No tremor. No symptoms of transient ischemic attack (TIA) or cerebrovascular accident(CVA) Integumentary: No skin rash. Psychological: He is not feeling depressed. Rest of review of systems (ROS) is normal. PAST MEDICAL/SURGICAL HISTORY: Past Medical History: Diagnosis Date Anxiety Arthritis osteo Asthma 08/23/2014 Chronic pain disorder rt foot, hx 4 foot fractures; calves of legs cause pain,muscle spasms COPD (chronic obstructive pulmonary disease) (HCC) Depression Diastolic dysfunction mild per echo on 06/08/2019 Fibromyalgia, primary GERD (gastroesophageal reflux disease) patient denies Hypertension controlled Hypertension 04/01/2015 Migraines Obesity AYO (obstructive sleep apnea) unable to use cpap; recently received mouthpiece but not using Pneumonia x2 , had 2 pneumonia shots Restless legs syndrome Shoulder joint pain Spinal stenosis Varicose veins of both lower extremities Past Surgical History: Procedure Laterality Date ANTERIOR CERVICAL DISCECTOMY 02/25/2009 C5-6, C6-7 [place] SHOULD SAD, SLAP, RCR, RESECT DISTAL CLAVICLE, BICEPS TENODESIS Right 11/04/2015 ARTHROPLASTY HIP TOTAL Right 02/27/2018 Procedure: RIGHT TOTAL HIP ARTHROPLASTY; Surgeon: Gabo Sears MD; Location: [facility] Main OR; Service: Orthopedic BACK SURGERY 2008,2002 x 2 Low back, BLADDER SUSPENSION bladder tie-up BRONCHOSCOPY CARDIAC CATHETERIZATION Bilateral 09/21/2006 COLONOSCOPY FOOT SURGERY Right 03/08/2005 Third interdigital neuroma excision, fourth metatarsal osteotomy w/capsulotomy, fifth metatarsal head excision HARDWARE REMOVAL ANTERIOR CERVICAL 07/22/2014 C5, C6-7 HARDWARE REMOVAL LUMBAR 01/02/2009 L5-S1 w/ redo decompression laminectomy HYSTERECTOMY CARLOS MANUEL BSO Bladder suspension KNEE ARTHROSCOPY W/ LASER Left 2014 LAMINECTOMY DECOMP LUMBAR W/FUSION 4 OR MORE LVL N/A 11/08/2017 Procedure: HARDWARE REMOVAL L4-S1, DECOMPRESSION/FUSION L2-L4, PLIF, REINSTRUMENT L2-S1; Surgeon: Alejo Hummel MD; Location: [facility] Main OR; Service: Orthopedic LAMINECTOMY DISC ANTERIOR CERVICAL W/ FUSION SINGLE LEVEL N/A 03/13/2021 Procedure: Anterior cervical discectomy fusion cervical4-5 with plate and allograft; Surgeon: Jose Fraga MD; Location: [facility] Main OR; Service: Orthopedic LUMBAR LAMINECTOMY 10/11/2003 L5-S1 decompression w/interbody fusion bilateral and posterior fusion fixation LUNG BIOPSY Right ROTATOR CUFF REPAIR Left TONSILLECTOMY TOTAL KNEE ARTHROPLASTY Right VEIN SURGERY 2014 vein taken out in lower Left leg in [place] Dr. Jesica SANCHES TOOTH EXTRACTION PERSONAL HISTORY: Social History Tobacco Use Smoking Status Never Smoker Smokeless Tobacco Never Used Tobacco Comment 04/21/21 Social History Substance and Sexual Activity Alcohol Use Yes Alcohol/week: 0.0 standard drinks Comment: sometimes 10 a year; rare SOCIAL HISTORY: Social History Socioeconomic History Marital status: Spouse name: Derrek Number of children: Not on file Years of education: Not on file Highest education level: Not on file Occupational History Not on file Tobacco Use Smoking status: Never Smoker Smokeless tobacco: Never Used Tobacco comment: 04/21/21 Vaping Use Vaping Use: Never used Substance and Sexual Activity Alcohol use: Yes Alcohol/week: 0.0 standard drinks Comment: sometimes 10 a year; rare Drug use: No Comment: tried all forms of medical marijuana without positive results in last 6 weeks Sexual activity: Yes Partners: Male control/protection: None Other Topics Concern Not on file Social History Narrative Merged History Encounter Social Determinants of Health Financial Resource Strain: Difficulty of Paying Living Expenses: Food Insecurity: Worried About Running Out of Food in the Last Year: Ran Out of Food in the Last Year: Transportation Needs: Lack of Transportation (Medical): Lack of Transportation (Non-Medical): Physical Activity: Days of Exercise per Week: Minutes of Exercise per Session: Stress: Feeling of Stress : Social Connections: Frequency of Communication with Friends and Family: Frequency of Social Gatherings with Friends and Family: Attends [employer] Services: Active Member of Clubs or Organizations: Attends Club or Organization Meetings: Marital Status: FAMILY HISTORY OF PREMATURE CORONARY AFTER DISEASE: Family History Problem Relation Age of Onset Hypertension Father Heart disease Father Diabetes Father Breast cancer Mother ; cancer went to brain, liver and lungs Brain cancer Mother Liver cancer Mother Lung cancer Mother Hypertension Sister Diabetes Sister Hypertension Other siblings Diabetes Other siblings No Known Problems Brother Surgical complications Neg Hx Anesthesia problems Neg Hx Clotting disorder Neg Hx Deep vein thrombosis Neg Hx Pulmonary embolism Neg Hx Family history is negative for premature coronary artery disease. CURRENT MEDICATIONS: Current Outpatient Medications: albuterol (PROVENTIL) 2.5 mg /3 mL (0.083 %) nebulizer solution, Take 2.5 mg by nebulization daily as needed ., Disp: , Rfl: albuterol 90 mcg/actuation inhaler, Inhale 2 puffs every 6 (six) hours as needed for wheezing ., Disp: , Rfl: amLODIPine (NORVASC) 5 MG tablet, Take 5 mg by mouth daily ., Disp: , Rfl: Anoro Ellipta 62.5-25 mcg/actuation DsDv, Inhale 2 puffs daily ., Disp: , Rfl: budesonide-formoteroL (SYMBICORT) 80-4.5 mcg/actuation inhaler, 1 puff ., Disp: , Rfl: caffeine 200 mg, Take 200 mg by mouth daily ., Disp: , Rfl: furosemide (LASIX) 20 MG tablet, Take 20 mg by mouth daily ., Disp: , Rfl: ipratropium-albuteroL (DUO-NEB) 0.5-2.5 mg/3 ml nebulizer, Take 3 mL by nebulization every 6 (six) hours as needed for wheezing or shortness of breath . (Patient not taking: Reported on 04/21/2021 .),Disp: 360 mL, Rfl: 0 lisinopril (PRINIVIL,ZESTRIL) 20 MG tablet, Take 20 mg by mouth every evening ., Disp: , Rfl: melatonin 5 mg Tab, Take 5 mg by mouth nightly ., Disp: , Rfl: montelukast (SINGULAIR) 10 mg tablet, Take 10 mg by mouth daily ., Disp: , Rfl: oxyCODONE-acetaminophen (PERCOCET) 10-325 mg per tablet, Take 2 tablets by mouth 3 (three) times a day as needed ., Disp: , Rfl: rOPINIRole (REQUIP) 2 MG tablet, Take 2 mg by mouth 3 (three) times a day Reasons: restless legs syndrome, an extreme discomfort in the calf muscles when sitting or lying down., Disp: , Rfl: sertraline (ZOLOFT) 50 MG tablet, , Disp: , Rfl: traZODone (DESYREL) 50 MG tablet, Take 50 mg by mouth nightly ., Disp: , Rfl: clonazePAM (KLONOPIN) 1 MG tablet, Take 1 mg by mouth 2 (two) times a day as needed ., Disp: , Rfl: DULoxetine (CYMBALTA) 60 MG capsule, Take 60 mg by mouth 2 (two) times a day ., Disp: , Rfl: meclizine (ANTIVERT) 25 mg tablet, Take 1 (one) tablet (25 mg total) by mouth every 6 (six) hours for 5 days . (Patient not taking: Reported on 04/20/2021 .), Disp: 20 tablet, Rfl: 0 mirtazapine (REMERON RODRIGO-TAB) 15 MG disintegrating tablet, Dissolve 1 (one) tablet (15 mg total) ontop of tongue nightly . (Patient not taking: Reported on 04/20/2021 .), Disp: 30 tablet, Rfl: 0 NARCAN 4 mg/actuation [address], Administer 1 spray into one nostril for known or suspected opioid overdose. If patient worsens or does not respond, may repeat in 2-3 minutes. ., Disp: 1 Package, Rfl: 0 omeprazole (PRILOSEC) 40 MG capsule, Take 1 (one) capsule (40 mg total) by mouth daily. (Patient not taking: Reported on 04/20/2021 .), Disp: 30 capsule, Rfl: 5 ranitidine (ZANTAC) 300 MG tablet, Take 1 (one) tablet (300 mg total) by mouth nightly. (Patient not taking: Reported on 04/20/2021 .), Disp: 30 tablet, Rfl: 5 SUMAtriptan (IMITREX) 100 MG tablet, Take 1 (one) tablet (100 mg total) by mouth as needed for migraine. (Patient not taking: Reported on 04/20/2021 .), Disp: 6 tablet, Rfl: 0 ALLERGIES: Allergies Allergen Reactions Ibuprofen GI Intolerance Lyrica [Pregabalin] Other (See Comments) nightmares Duloxetine GI Intolerance Nausea Nsaids (Non-Steroidal Anti-Inflammatory Drug) GI Intolerance Metformin GI Intolerance CARDIAC RISK FACTORS: Hypertension Yes, Diabetes Mellitus No, Smoking No, Hypercholesterolemia No, Family history of premature coronary artery disease No. OBJECTIVE: BP 145/84 (BP Location: Left arm, Patient Position: Sitting, BP Cuff Size: Adult) Pulse 94 Ht 5' 6 Wt 91.2 kg (201 lb) SpO2 94% BMI 32.44 kg/m , Body mass index is 32.44 kg/m . Patient is well nourished and well developed. General appearance is good. Patient is in no acute distress. Mood/affect normal. Patient is oriented to time, place and person. Patient s judgement and insight in illness appears good. Gait is normal. There is no conjunctival or corneal injection. No xanthelasma. Oral mucosa is moist. Patient does not have dentures. Neck is supple. There is no jugular venous distension or thyromegaly. No lymphadenopathy in neck or axilla noted. Carotid upstrokes are symmetrical bilaterally. Skin turgor is normal. There is no skin rash. Respiratory efforts are non-labored without use of accessory muscles of respiration. Lungs are clear to percussion and auscultation. There is no adventitious sound. There is good air entry bilaterally. Heart rhythm is regular. There is no precordial thrill, parasternal heave or chest wall tenderness. Point of maximal cardiac impulse is located in the left fifth intercostal space, 2 cm inside the mid-clavicular line. The first heart sound is normal. The second heart sound is split. S-4 gallop is present. A grade II/ systolic murmur is present at the base of heart. There is no rub or click. Abdomen is soft and non-tender. Bowel sounds are present. There is no hepato-splenomegaly. No abdominal bruit. No hernia. There is no ankle edema. Muscle tone and strength are normal and symmetrical bilaterally. Range of motion in the joints is satisfactory and symmetrical bilaterally. Capillary refills are normal. Femoral and pedal pulses are symmetrical bilaterally. No clubbing or cyanosis is noted in the digits. LABS AND RADIOLOGICAL REPORTS: I have personally and independently reviewed the labs/image/tracing and the results are as follows: HGB A1C - 6.4 Pablo Mullen M.D.,F.A.C.C. documented in this [id number] Instructions* Patient Instructions* Pablo Mullen MD - 04/20/2021 4:37 PM EDT Images from the original note were not included. High Blood Pressure: Care Instructions Overview It's normal for blood pressure to go up and down throughout the day. But if it stays up, you have high blood pressure. Another name for high blood pressure is hypertension. Despite what a lot of people think, high blood pressure usually doesn't cause headaches or make youfeel dizzy or lightheaded. It usually has no symptoms. But it does increase your risk of stroke, heart attack, and other problems. You and your doctor will talk about your risks of these problems based on your blood pressure. Your doctor will give you a goal for your blood pressure. Your goal will be based on your health and your age. Lifestyle changes, such as eating healthy and being active, are always important to help lower blood pressure. You might also take medicine to reach your blood pressure goal. Follow-up care is a lee part of your treatment and safety. Be sure to make and go to all appointments, and call your doctor if you are having problems. It's also a good idea to know your test resultsand keep a list of the medicines you take. How can you care for yourself at home? Medical treatment If you stop taking your medicine, your blood pressure will go back up. You may take one or more types of medicine to lower your blood pressure. Be safe with medicines. Take your medicine exactly as prescribed. Call your doctor if you think you are having a problem with your medicine. Talk to your doctor before you start taking aspirin every day. Aspirin can help certain people lower their risk of a heart attack or stroke. But taking aspirin isn't right for everyone, because it can cause serious bleeding. See your doctor regularly. You may need to see the doctor more often at first or until your blood pressure comes down. If you are taking blood pressure medicine, talk to your doctor before you take decongestants or anti-inflammatory medicine, such as ibuprofen. Some of these medicines can raise blood pressure. Learn how to check your blood pressure at home. Lifestyle changes Stay at a healthy weight. This is especially important if you put on weight around the waist. Losing even 10 pounds can help you lower your blood pressure. If your doctor recommends it, get more exercise. Walking is a good choice. Bit by bit, increase theamount you walk every day. Try for at least 30 minutes on most days of the week. You also may want to swim, bike, or do other activities. Avoid or limit alcohol. Talk to your doctor about whether you can drink any alcohol. Try to limit how much sodium you eat to less than 2,300 milligrams (mg) a day. Your doctor may ask you to try to eat less than 1,500 mg a day. Eat plenty of fruits (such as bananas and oranges), vegetables, legumes, whole grains, and low-fat dairy products. Lower the amount of saturated fat in your diet. Saturated fat is found in animal products such as milk, cheese, and meat. Limiting these foods may help you lose weight and also lower your risk for heart disease. Do not smoke. Smoking increases your risk for heart attack and stroke. If you need help quitting, talk to your doctor about stop-smoking programs and medicines. These can increase your chances of quitting for good. When should you call for help? Call 911 anytime you think you may need emergency care. This may mean having symptoms that suggest that your blood pressure is causing a serious heart or blood vessel problem. Your blood pressure maybe over 180/120. For example, call 911 if: You have symptoms of a heart attack. These may include: ? Chest pain or pressure, or a strange feeling in the chest. ? Sweating. ? Shortness of breath. ? Nausea or vomiting. ? Pain, pressure, or a strange feeling in the back, neck, jaw, or upper belly or in one or both shoulders or arms. ? Lightheadedness or sudden weakness. ? A fast or irregular heartbeat. You have symptoms of a stroke. These may include: ? Sudden numbness, tingling, weakness, or loss of movement in your face, arm, or leg, especially ononly one side of your body. ? Sudden vision changes. ? Sudden trouble speaking. ? Sudden confusion or trouble understanding simple statements. ? Sudden problems with walking or balance. ? A sudden, severe headache that is different from past headaches. You have severe back or belly pain. Do not wait until your blood pressure comes down on its own. Get help right away. Call your doctor now or seek immediate care if: Your blood pressure is much higher than normal (such as 180/120 or higher), but you don't have symptoms. You think high blood pressure is causing symptoms, such as: ? Severe headache. ? Blurry vision. Watch closely for changes in your health, and be sure to contact your doctor if: Your blood pressure measures higher than your doctor recommends at least 2 times. That means the top number is higher or the bottom number is higher, or both. You think you may be having side effects from your blood pressure medicine. Where can you learn more? Log into your personal health record on [email or web address] and enter X567 in the Education box to learn more about High Blood Pressure: Care Instructions. Current as of: June 30, 2020 Content Version: 12.8 [employer]. Care instructions adapted under license by your healthcare professional. If you have questions about a medical condition or this instruction, always ask your healthcare professional. [employer] disclaims any warranty or liability for your use of this information. documented in this [id number] History of Present illness Narrative* Devendra Mckeon MD - 03/31/2021 5:26 PM EDT AFTER HOURS [employer] ADMINISTRATOR NOTE: Patient called after 5pm, again requesting Duoneb as that helped her at ER during recent visit. Hervisit with Dr DILIP Mckeon (her primary triage clinician) is not till tomorrow. I have ordered for one month. I will let Dr. WRIGHT know. Patient sounded quite dyspneic on phone, I did recommend ER to her. Right now, she prefers not to go but does state she will go if more dyspneic. Devendra Mckeon MD Pulmonary & Critical Care Medicine, Interventional Pulmonology documented in this [id number] History of Present illness Narrative* Jose Fraga MD - 03/25/2021 2:00 PM EDT Matthew Perez 1955 Impression/Plan: Problem List Items Addressed This Visit Musculoskeletal and Integument Protrusion of cervical intervertebral disc C4-5 with stenosis - Primary Relevant Orders XR Cervical Spine AP/LAT Other Status post cervical spinal fusion Relevant Orders XR Cervical Spine AP/LAT Return in about 3 months (around 06/25/2021), or With x-rays. She may leave her incision open to airand resume normal skin hygiene routine. We discussed ongoing activity restrictions of no neck twisting, neck bending, or lifting more than 10 pounds. I advised her to wait 3 months after her surgery prior to pursuing dental cleaning. Clinical Findings: Matthew Perez presents to the clinic after her surgery: 03/13/2021: OPERATIVE PROCEDURE Anterior cervical decompression, anterior cervical fusion C 4 5 with plate and allograft. Assessment - 03/25/21 1401 Pain Assessment Pain Assessment 0-10 0-10 DVPRS 2/10 Pain Location Neck Pain Descriptors Dull;Other (Comment) Pain Frequency Intermittent Pain Onset Gradual Aggravating Factors Bending;Standing Result of Injury No Work-Related Injury No Since surgery she notes no trouble swallowing and no change in voice. Recently she notes no wound redness, fever, drainage, swelling or unusual tenderness wound healing as expected Since surgery she notes weakness in in no areas. She notes improvement in her preoperative left armnumbness. Pain is controlled without any medications.. Pain is rated as 2/10. She has resumed her normal baseline pain medication prescription of Percocet. Past Medical History: Diagnosis Date Anxiety Arthritis osteo Asthma 08/23/2014 Chronic pain disorder rt foot, hx 4 foot fractures; calves of legs cause pain,muscle spasms COPD (chronic obstructive pulmonary disease) (HCC) Depression Diastolic dysfunction mild per echo on 06/08/2019 Fibromyalgia, primary GERD (gastroesophageal reflux disease) patient denies Hypertension controlled Hypertension 04/01/2015 Migraines Obesity AYO (obstructive sleep apnea) unable to use cpap; recently received mouthpiece but not using Pneumonia x2 , had 2 pneumonia shots Restless legs syndrome Shoulder joint pain Spinal stenosis Varicose veins of both lower extremities Patient Active Problem List Diagnosis AYO (obstructive sleep apnea) Asthma Balance disorder Hypertension Protrusion of cervical intervertebral disc C4-5 with stenosis Brachial neuritis Lumbar pain Depression Pre-diabetes Dysphagia Cataract Migraine Bronchogenic cancer (HCC) Restless legs syndrome Tendinopathy of rotator cuff Varicose vein History of cardiomyopathy Iron deficiency Obesity Difficulty walking Encounter for long-term use of opiate analgesic Varicose veins of lower extremities with complications Leg pain Postlaminectomy syndrome of lumbar region Lumbar stenosis with neurogenic claudication Spinal stenosis DDD (degenerative disc disease), lumbar Hip osteoarthritis Acute blood loss as cause of postoperative anemia S/P total hip arthroplasty Osteoarthritis of multiple joints Vertigo History of falling Rectocele Protrusion of cervical intervertebral disc C4-5 with stenosis Diastolic dysfunction Preoperative cardiovascular examination Status post cervical spinal fusion Outpatient Medications as of 03/25/2021 Medication Sig albuterol (PROVENTIL) 2.5 mg /3 mL (0.083 %) nebulizer solution Take 2.5 mg by nebulization daily as needed . albuterol 90 mcg/actuation inhaler Inhale 2 puffs every 6 (six) hours as needed for wheezing . amLODIPine (NORVASC) 5 MG tablet Take 5 mg by mouth daily . Anoro Ellipta 62.5-25 mcg/actuation DsDv Inhale 2 puffs daily . caffeine 200 mg Take 200 mg by mouth daily . clonazePAM (KLONOPIN) 1 MG tablet Take 1 mg by mouth 2 (two) times a day as needed . [] cyclobenzaprine (FLEXERIL) 10 MG tablet Take 1 (one) tablet (10 mg total) by mouth every 8 (eight) hours as needed for muscle spasms . DULoxetine (CYMBALTA) 60 MG capsule Take 60 mg by mouth 2 (two) times a day . furosemide (LASIX) 20 MG tablet Take 20 mg by mouth daily . lisinopril (PRINIVIL,ZESTRIL) 20 MG tablet Take 20 mg by mouth every evening . meclizine (ANTIVERT) 25 mg tablet Take 1 (one) tablet (25 mg total) by mouth every 6 (six) hours for 5 days . melatonin 5 mg Tab Take 5 mg by mouth nightly . mirtazapine (REMERON RODRIGO-TAB) 15 MG disintegrating tablet Dissolve 1 (one) tablet (15 mg total) on top of tongue nightly . montelukast (SINGULAIR) 10 mg tablet Take 10 mg by mouth daily . NARCAN 4 mg/actuation [address] Administer 1 spray into one nostril for known or suspected opioid overdose. If patient worsens or does not respond, may repeat in 2-3 minutes. . omeprazole (PRILOSEC) 40 MG capsule Take 1 (one) capsule (40 mg total) by mouth daily. oxyCODONE-acetaminophen (PERCOCET) 10-325 mg per tablet Take 2 tablets by mouth 3 (three) times a day as needed . ranitidine (ZANTAC) 300 MG tablet Take 1 (one) tablet (300 mg total) by mouth nightly. rOPINIRole (REQUIP) 2 MG tablet Take 2 mg by mouth 3 (three) times a day Reasons: restless legs syndrome, an extreme discomfort in the calf muscles when sitting or lying down. SUMAtriptan (IMITREX) 100 MG tablet Take 1 (one) tablet (100 mg total) by mouth as needed for migraine. traZODone (DESYREL) 50 MG tablet Take 50 mg by mouth nightly . Allergies: Ibuprofen, Lyrica [pregabalin], Duloxetine, Nsaids (non-steroidal anti- inflammatory drug), and Metformin Past Surgical History: Procedure Laterality Date ANTERIOR CERVICAL DISCECTOMY 02/25/2009 C5-6, C6-7 ABY'BRITTON SHOULD [place]IGHTON, SLAP, RCR, RESECT DISTAL CLAVICLE, BICEPS TENODESIS Right 11/04/2015 ARTHROPLASTY HIP TOTAL Right 02/27/2018 Procedure: RIGHT TOTAL HIP ARTHROPLASTY; Surgeon: Gabo Sears MD; Location: [facility] Main OR; Service: Orthopedic BACK SURGERY 2008,2002 x 2 Low back, BLADDER SUSPENSION bladder tie-up BRONCHOSCOPY CARDIAC CATHETERIZATION Bilateral 09/21/2006 COLONOSCOPY FOOT SURGERY Right 03/08/2005 Third interdigital neuroma excision, fourth metatarsal osteotomy w/capsulotomy, fifth metatarsal head excision HARDWARE REMOVAL ANTERIOR CERVICAL 07/22/2014 C5, C6-7 HARDWARE REMOVAL LUMBAR 01/02/2009 L5-S1 w/ redo decompression laminectomy HYSTERECTOMY CARLOS MANUEL BSO Bladder suspension KNEE ARTHROSCOPY W/ LASER Left 2014 LAMINECTOMY DECOMP LUMBAR W/FUSION 4 OR MORE LVL N/A 11/08/2017 Procedure: HARDWARE REMOVAL L4-S1, DECOMPRESSION/FUSION L2-L4, PLIF, REINSTRUMENT L2-S1; Surgeon: Alejo Hummel MD; Location: [facility] Main OR; Service: Orthopedic LAMINECTOMY DISC ANTERIOR CERVICAL W/ FUSION SINGLE LEVEL N/A 03/13/2021 Procedure: Anterior cervical discectomy fusion cervical4-5 with plate and allograft; Surgeon: Jose Fraga MD; Location: [facility] Main OR; Service: Orthopedic LUMBAR LAMINECTOMY 10/11/2003 L5-S1 decompression w/interbody fusion bilateral and posterior fusion fixation LUNG BIOPSY Right ROTATOR CUFF REPAIR Left TONSILLECTOMY TOTAL KNEE ARTHROPLASTY Right VEIN SURGERY 2014 vein taken out in lower Left leg in [place] Dr. Jesica SANCHES TOOTH EXTRACTION Objective: BP (!) 150/96 Pulse 96 Ht 5' 6 Wt 90.7 kg (200 lb) SpO2 93% BMI 32.28 kg/m General alert, appears stated age, cooperative and no distress Cervical Local no palpable tenderness or local deformity and comfortable spontaneous ROM through the exam Wound healing well, no drainage, no erythema, well approximated, mild swelling around the right lateral edge of the incision Upper Extremity Motor Upper extremity motor exam: is strong and symmetric in all groups Gait/Balance normal gait and balance and narrow based casual gait Arianna Ng CNP documented in this [id number] Emergency department Note* Michael Verdugo MD - 03/23/2021 10:25 PM EDT ED PROVIDER NOTE [facility] EMERGENCY DEPARTMENT NAME: Matthew Perez AGE: 66 y.o. : 1955 VISIT DATE: 03/23/2021 CSN: [id number] PCP: Harmony Gee MD Clinical Impression: 1. COPD exacerbation (HCC) ED Disposition ED Disposition Condition Comment Discharge Stable Matthew Perez discharged to home/self care in stable condition. Follow-up Information 1. [facility] Emergency Department. Specialty: Emergency Medicine Why: If symptoms worsen [address] [facility] [address] 2. Leatha Lopes DO. Specialties: Pulmonology, Pulmonary Disease, Critical Care Medicine [address] [facility] [address] 3. Pablo Mullen MD. Specialties: Cardiology, Cardiovascular Disease, Radiology, Peripheral Vascular Cardiology [address] [facility] [id number] Contact information for after-discharge care Follow-up information has not been specified. MDM Number of Diagnoses or Management Options 66yo F presents to ER with copd exacerbation. Well-appearing on exam, appears to be breathing comfortably with minimal wheezing on expiration. Will treat patient COPD symptoms with dexamethasone and DuoNeb's. Will check chest x-ray, EKG, labs to assess for any other pathology including but not limited to ACS, infection or other. Low suspicion for dissection, tamponade, ruptured esophagus, pneumothorax, or other pathology. Patient stable. 10:26 PM Patient feels back to normal at this time. No wheezing on exam. Breathing comfortably and walking greater than 50 feet in the ER without shortness of breath. Patient does not have a triage clinician or bat person and has been given referrals to follow-up with both. All findings discussed with patient and available on [employer] online. Pt is safe for discharge at this time with normal vitals. Pt verbalized understanding of plan. Chief Complaint Patient presents with Shortness of Breath 66-year-old female presents emergency department with complaint of shortness of breath and COPD exacerbation. Patient states that she does have chronic COPD and feels like it is been triggered recently. Patient does not know what her trigger is. Patient denies any recent illness or cough or fever or chills or chest pain. No other complaints at this time. Past Medical History: Diagnosis Date Anxiety Arthritis osteo Asthma 08/23/2014 Chronic pain disorder rt foot, hx 4 foot fractures; calves of legs cause pain,muscle spasms COPD (chronic obstructive pulmonary disease) ([facility]) Depression Diastolic dysfunction mild per echo on 06/08/2019 Fibromyalgia, primary GERD (gastroesophageal reflux disease) patient denies Hypertension controlled Hypertension 04/01/2015 Migraines Obesity AYO (obstructive sleep apnea) unable to use cpap; recently received mouthpiece but not using Pneumonia x2 , had 2 pneumonia shots Restless legs syndrome Shoulder joint pain Spinal stenosis Varicose veins of both lower extremities Past Surgical History: Procedure Laterality Date ANTERIOR CERVICAL DISCECTOMY 02/25/2009 C5-6, C6-7 AR'SCOPY SHOULD SAD, SLAP, RCR, RESECT DISTAL CLAVICLE, BICEPS TENODESIS Right 11/04/2015 ARTHROPLASTY HIP TOTAL Right 02/27/2018 Procedure: RIGHT TOTAL HIP ARTHROPLASTY; Surgeon: Gabo Sears MD; Location: [facility] Main OR; Service: Orthopedic BACK SURGERY 2008,2002 x 2 Low back, BLADDER SUSPENSION bladder tie-up BRONCHOSCOPY CARDIAC CATHETERIZATION Bilateral 09/21/2006 COLONOSCOPY FOOT SURGERY Right 03/08/2005 Third interdigital neuroma excision, fourth metatarsal osteotomy w/capsulotomy, fifth metatarsal head excision HARDWARE REMOVAL ANTERIOR CERVICAL 07/22/2014 C5, C6-7 HARDWARE REMOVAL LUMBAR 01/02/2009 L5-S1 w/ redo decompression laminectomy HYSTERECTOMY CARLOS MANUEL BSO Bladder suspension KNEE ARTHROSCOPY W/ LASER Left 2014 LAMINECTOMY DECOMP LUMBAR W/FUSION 4 OR MORE LVL N/A 11/08/2017 Procedure: HARDWARE REMOVAL L4-S1, DECOMPRESSION/FUSION L2-L4, PLIF, REINSTRUMENT L2-S1; Surgeon: Alejo Hummel MD; Location: [facility] Main OR; Service: Orthopedic LAMINECTOMY DISC ANTERIOR CERVICAL W/ FUSION SINGLE LEVEL N/A 03/13/2021 Procedure: Anterior cervical discectomy fusion cervical4-5 with plate and allograft; Surgeon: Jose Fraga MD; Location: [facility] Main OR; Service: Orthopedic LUMBAR LAMINECTOMY 10/11/2003 L5-S1 decompression w/interbody fusion bilateral and posterior fusion fixation LUNG BIOPSY Right ROTATOR CUFF REPAIR Left TONSILLECTOMY TOTAL KNEE ARTHROPLASTY Right VEIN SURGERY 2014 vein taken out in lower Left leg in [place] Dr. Jesica SANCHES TOOTH EXTRACTION Family History Problem Relation Age of Onset Hypertension Father Heart disease Father Diabetes Father Breast cancer Mother ; cancer went to brain, liver and lungs Brain cancer Mother Liver cancer Mother Lung cancer Mother Hypertension Sister Diabetes Sister Hypertension Other siblings Diabetes Other siblings No Known Problems Brother Surgical complications Neg Hx Anesthesia problems Neg Hx Clotting disorder Neg Hx Deep vein thrombosis Neg Hx Pulmonary embolism Neg Hx Social History Socioeconomic History Marital status: Spouse name: Derrek Number of children: Not on file Years of education: Not on file Highest education level: Not on file Occupational History Not on file Tobacco Use Smoking status: Never Smoker Smokeless tobacco: Never Used Tobacco comment: 02/26/21 Vaping Use Vaping Use: Never used Substance and Sexual Activity Alcohol use: Yes Alcohol/week: 0.0 standard drinks Comment: sometimes 10 a year; rare Drug use: No Comment: tried all forms of medical marijuana without positive results in last 6 weeks Sexual activity: Yes Partners: Male control/protection: None Other Topics Concern Not on file Social History Narrative Merged History Encounter Social Determinants of Health Financial Resource Strain: Difficulty of Paying Living Expenses: Food Insecurity: Worried About Running Out of Food in the Last Year: Ran Out of Food in the Last Year: Transportation Needs: Lack of Transportation (Medical): Lack of Transportation (Non-Medical): Physical Activity: Days of Exercise per Week: Minutes of Exercise per Session: Stress: Feeling of Stress : Social Connections: Frequency of Communication with Friends and Family: Frequency of Social Gatherings with Friends and Family: Attends [employer] Services: Active Member of Clubs or Organizations: Attends Club or Organization Meetings: Marital Status: Previous Medications Medication Sig albuterol (PROVENTIL) 2.5 mg /3 mL (0.083 %) nebulizer solution Take 2.5 mg by nebulization daily as needed . albuterol 90 mcg/actuation inhaler Inhale 2 puffs every 6 (six) hours as needed for wheezing . amLODIPine (NORVASC) 5 MG tablet Take 5 mg by mouth daily . Anoro Ellipta 62.5-25 mcg/actuation DsDv Inhale 2 puffs daily . caffeine 200 mg Take 200 mg by mouth daily . clonazePAM (KLONOPIN) 1 MG tablet Take 1 mg by mouth 2 (two) times a day as needed . cyclobenzaprine (FLEXERIL) 10 MG tablet Take 1 (one) tablet (10 mg total) by mouth every 8 (eight) hours as needed for muscle spasms . DULoxetine (CYMBALTA) 60 MG capsule Take 60 mg by mouth 2 (two) times a day . furosemide (LASIX) 20 MG tablet Take 20 mg by mouth daily . lisinopril (PRINIVIL,ZESTRIL) 20 MG tablet Take 20 mg by mouth every evening . meclizine (ANTIVERT) 25 mg tablet Take 1 (one) tablet (25 mg total) by mouth every 6 (six) hours for 5 days . melatonin 5 mg Tab Take 5 mg by mouth nightly . mirtazapine (REMERON RODRIGO-TAB) 15 MG disintegrating tablet Dissolve 1 (one) tablet (15 mg total) on top of tongue nightly . montelukast (SINGULAIR) 10 mg tablet Take 10 mg by mouth daily . NARCAN 4 mg/actuation [address] Administer 1 spray into one nostril for known or suspected opioid overdose. If patient worsens or does not respond, may repeat in 2-3 minutes. . omeprazole (PRILOSEC) 40 MG capsule Take 1 (one) capsule (40 mg total) by mouth daily. oxyCODONE-acetaminophen (PERCOCET) 10-325 mg per tablet Take 2 tablets by mouth 3 (three) times a day as needed . ranitidine (ZANTAC) 300 MG tablet Take 1 (one) tablet (300 mg total) by mouth nightly. rOPINIRole (REQUIP) 2 MG tablet Take 2 mg by mouth 3 (three) times a day Reasons: restless legs syndrome, an extreme discomfort in the calf muscles when sitting or lying down. SUMAtriptan (IMITREX) 100 MG tablet Take 1 (one) tablet (100 mg total) by mouth as needed for migraine. traZODone (DESYREL) 50 MG tablet Take 50 mg by mouth nightly . Allergies Allergen Reactions Ibuprofen GI Intolerance Lyrica [Pregabalin] Other (See Comments) nightmares Duloxetine GI Intolerance Nausea Nsaids (Non-Steroidal Anti-Inflammatory Drug) GI Intolerance Metformin GI Intolerance Review of Systems Constitutional: Negative for chills, fatigue and fever. HENT: Negative for congestion, dental problem, ear pain, nosebleeds, sneezing, sore throat and trouble swallowing. Eyes: Negative for photophobia, pain and discharge. Respiratory: Positive for shortness of breath and wheezing. Negative for cough and chest tightness. Cardiovascular: Negative for chest pain, palpitations and leg swelling. Gastrointestinal: Negative for abdominal distention, abdominal pain, constipation, diarrhea, nauseaand vomiting. Genitourinary: Negative for dysuria, flank pain, frequency, hematuria and urgency. Musculoskeletal: Negative for back pain, neck pain and neck stiffness. Skin: Negative for rash and wound. Neurological: Negative for dizziness, seizures, syncope, weakness, numbness and headaches. All other systems reviewed and are negative. Positives and pertinent negatives as per HPI. All other systems were reviewed and are negative. Patient Vitals for the past 24 hrs: BP Temp Temp src Pulse Resp SpO2 Height Weight 03/23/21 2215 148/79 (!) 114 14 94 % 03/23/212051 94 % 03/23/212044 133/88 (!) 115 (!) 22 97 % 03/23/212014 (!) 142/93 (!) 115 (!) 24 93 % 03/23/21 1934 149/89 98.1 F (36.7 C) Oral (!) 122 16 94 % 5' 6 90.7 kg (200 lb) Physical Exam Vitals and nursing note reviewed. Exam conducted with a developmental behavioral physician present. Constitutional: General: She is not in acute distress. Appearance: Normal appearance. She is not ill-appearing, toxic-appearing or diaphoretic. Interventions: She is not intubated. HENT: Head: Normocephalic and atraumatic. Right Ear: Tympanic membrane, ear canal and external ear normal. Left Ear: Tympanic membrane, ear canal and external ear normal. Nose: Nose normal. No congestion or rhinorrhea. Mouth/Throat: Mouth: Mucous membranes are moist. Pharynx: Oropharynx is clear. No oropharyngeal exudate or posterior oropharyngeal erythema. Eyes: Extraocular Movements: Extraocular movements intact. Conjunctiva/sclera: Conjunctivae normal. Pupils: Pupils are equal, round, and reactive to light. Cardiovascular: Rate and Rhythm: Normal rate and regular rhythm. Pulses: Normal pulses. Heart sounds: Normal heart sounds. No murmur heard. No friction rub. No gallop. Pulmonary: Effort: Pulmonary effort is normal. No tachypnea, bradypnea, accessory muscle usage or respiratory distress. She is not intubated. Breath sounds: No stridor. Wheezing present. No decreased breath sounds, rhonchi or rales. Abdominal: General: Abdomen is flat. Bowel sounds are normal. There is no distension. Palpations: Abdomen is soft. There is no mass. Tenderness: There is no abdominal tenderness. There is no guarding or rebound. Musculoskeletal: General: No swelling, tenderness or deformity. Normal range of motion. Cervical back: Normal range of motion and neck supple. No rigidity. No muscular tenderness. Skin: General: Skin is warm and dry. Capillary Refill: Capillary refill takes less than 2 seconds. Neurological: General: No focal deficit present. Mental Status: She is alert and oriented to person, place, and time. Mental status is at baseline. Psychiatric: Mood and Affect: Mood normal. Behavior: Behavior normal. Laboratory & Radiographic Imaging (if done): Results for orders placed or performed during the hospital encounter of 03/23/21 Lavender Top Result Value Ref Range Extra Tube Hold for add-ons. Mint Green Top Result Value Ref Range Extra Tube Hold for add-ons. Gold Top Result Value Ref Range Extra Tube Hold for add-ons. Light Blue Top Result Value Ref Range Extra Tube Hold for add-ons. BMP Result Value Ref Range Sodium 141 135 - 145 mmol/L Potassium 3.5 3.5 - 5.1 mmol/L Chloride 103 98 - 108 mmol/L Bicarbonate 31 21 - 32 mmol/L Anion Gap 11 10 - 20 mmol/L Glucose 121 (H) 65 - 99 mg/dL BUN 12 8 - 25 mg/dL Creatinine 0.75 0.60 - 1.20 mg/dL eGFR 82 >=60 mL/min/1.73 m2 BUN/Creatinine Ratio 16.0 10.0 - 20.0 Calcium 9.6 8.4 - 10.2 mg/dL NT Pro BNP Result Value Ref Range NT-Pro BNP 85 0 - 300 pg/mL PT/INR Result Value Ref Range Protime (PT) 12.2 11.8 - 14.3 seconds INR 0.9 0.8 - 1.1 Troponin Result Value Ref Range Troponin I <15 <=45 ng/L Troponin I Interpretation Normal CBC Auto Differential Result Value Ref Range WBC 10.81 4.50 - 11.00 K/mcL RBC 5.35 (H) 4.00 - 5.20 M/mcL Hemoglobin 14.4 12.0 - 16.0 g/dL Hematocrit 43.6 36.0 - 46.0 % MCV 81.5 80.0 - 100.0 fL MCH 26.9 26.0 - 34.0 pg MCHC 33.0 31.0 - 37.0 g/dL Platelets 212 150 - 400 K/mcL RDW - CV 13.2 11.6 - 14.8 % MPV 12.4 9.4 - 12.4 fL Neutrophils 73.7 % Lymphocytes 15.4 % Monocytes 8.2 % Eosinophils 1.7 % Basophils 0.5 % IG Percent 0.50 % Neutrophils Abs 7.98 (H) 1.70 - 7.00 K/mcL Lymphocytes Abs 1.66 0.90 - 4.00 K/mcL Monocytes Abs 0.89 0.30 - 0.90 K/mcL Eosinophils Abs 0.18 0.00 - 0.50 K/mcL Basophils Abs 0.05 0.00 - 0.30 K/mcL IG Absolute 0.05 0.00 - 0.30 K/mcL Nucleated RBC 0.0 % Nucleated RBC Abs 0.00 0.00 - 0.00 K/mcL XR Chest 1 View Final Result No acute cardiopulmonary process. Workstation ID: [id number] Procedures . Michael Verdugo MD, FACEP Attending Physician [facility] Emergency Department Michael Verdugo MD 03/23/212226 * Amandeep Prieto RN - 03/23/2021 8:44 PM EDT Called ED RT for breathing tx * Anay Delgado RN - 03/23/2021 7:33 PM EDT Patient states, I have COPD and it's the worse it's ever down, especially if I lay down. Patient reports she does not have home O2. documented in this [id number] Consult note* Laurie Stanley OT - 03/14/2021 12:43 PM EDT Occupational Therapy OCCUPATIONAL THERAPY EVALUATION Skilled Therapy Needs After Discharge Anticipate Resolution of Current Assessment Limitations Including: Mechanical Barriers Are Skilled Therapy Services Needed After Discharge: No DME Recommendation: Adaptive equipment kit DME Rationale: Patient's condition creates an increased risk of safety hazard without recommended equipment Rehab Potential: Excellent Outcomes Measures Prior Function Daily Activity Raw Score: 24 Prior Function Daily Activity % Impaired: 0% AM-PAC Daily Activity Raw Score: 19 AM-PAC Daily Activity % Impaired: 42.80% Occupational Therapy Assessment The patient's current functional participation deficits are grooming, UE dressing, LE dressing, bathing, toileting, home management, meal preparation, hobbies, functional mobility. This reduced independence will limit their life roles of premorbid level individual, spouse. The patient's co morbidities do not affect patient performance in the above activities and roles. The performance deficits are a result of musculoskeletal impairment(s) in generalized debility including strength, balance, coordination, acitvity tolerance, pain, (none), and knowledge deficit, pain intolerance. The patient's home setup is a barrier, family / caregiver support is a front end developer for return to prior level of function. The patient's awareness of own capacity and performance is a front end developer, compliance is a front end developer to return to prior level of function. During the assessment, no modification of task was required and limited treatment options were identified in the plan of care. This consultation required brief review of the medical and therapy history. Activity Tolerance Activity Tolerance: Tolerates 10 - 20 min activity with multiple rests Therapy Precautions Orthotic Devices: No Weight Bearing Status: WFL General Rehab Precautions: Fall risk, Cervical Cognition Overall Cognitive Status: Within Functional Limits Arousal/Alertness: Appropriate responses to stimuli Orientation Level: Oriented X4 Executive functioning: WFL Safety Judgment: Good awareness of safety precautions Problem Solving: Able to problem solve independently Attention: Attends to quiet environment Hearing Status: WFL Social Interaction: Cooperative ADL LE Dressing: Stand by assist IADL Bed Mobility Supine to Sit: Modified independent, Head of bed elevated Meter Maintenance Person: bedrails Functional Transfers Sit to Stand: Supervision Bed to Chair Transfers: Supervision Home Living Obtained Home Living and PLOF info from: Patient Lives With: Spouse Type of Home: House Home Layout: Two level, Full bath on main level, Bed on second level Steps to enter home: Yes Rails to enter home: 1 rail, L rail going up Number of stairs to enter home: 5 Bathroom Shower/Tub: Walk-in shower Bathroom Toilet: Raised Bathroom Equipment: Other (comment)(none) Bathroom Accessibility: Accessible Mobility Equipment: Rollator ADL Equipment: Java Tech Lead Additional Objective Details - Home Living: Patient reports no AD use at baseline. Prior Level of Function Receives Help From: Family, Spouse Level of Cidra - Transfers/Ambulation/Mobility: Independent with functional transfers, Independent with household ambulation, Independent with community ambulation Level of Cid[place] - ADLs: Independent Level of Cid[place] - Homemaking: Needs assistance Driving: Patient drives Vocational: On disability, Retired([employer]) Leisure: garden, watch tv Patient reports no increased pain upon end of evaluation, left with all immediate needs met, and call light within reach. White board was updated and RN was notified of patient's mobility status. Patient assessed as a level 3 fall risk. Patient resting in bedside chair with alarm engaged, call light within reach and essential needs met at end of session. 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 Past Medical History: Diagnosis Date Anxiety Arthritis osteo Asthma 08/23/2014 Chronic pain disorder rt foot, hx 4 foot fractures; calves of legs cause pain,muscle spasms COPD (chronic obstructive pulmonary disease) (HCC) Depression Diastolic dysfunction mild per echo on 06/08/2019 Fibromyalgia, primary GERD (gastroesophageal reflux disease) patient denies Hypertension controlled Hypertension 04/01/2015 Migraines Obesity AYO (obstructive sleep apnea) unable to use cpap; recently received mouthpiece but not using Pneumonia x2 , had 2 pneumonia shots Restless legs syndrome Shoulder joint pain Spinal stenosis Varicose veins of both lower extremities Past Surgical History: Procedure Laterality Date ANTERIOR CERVICAL DISCECTOMY 02/25/2009 C5-6, C6-7 AR'BRITTON SHOULD SAD, SLAP, RCR, RESECT DISTAL CLAVICLE, BICEPS TENODESIS Right 11/04/2015 ARTHROPLASTY HIP TOTAL Right 02/27/2018 Procedure: RIGHT TOTAL HIP ARTHROPLASTY; Surgeon: Gabo Sears MD; Location: [facility] Main OR; Service: Orthopedic BACK SURGERY 2008,2002 x 2 Low back, BLADDER SUSPENSION bladder tie-up BRONCHOSCOPY CARDIAC CATHETERIZATION Bilateral 09/21/2006 COLONOSCOPY FOOT SURGERY Right 03/08/2005 Third interdigital neuroma excision, fourth metatarsal osteotomy w/capsulotomy, fifth metatarsal head excision HARDWARE REMOVAL ANTERIOR CERVICAL 07/22/2014 C5, C6-7 HARDWARE REMOVAL LUMBAR 01/02/2009 L5-S1 w/ redo decompression laminectomy HYSTERECTOMY CARLOS MANUEL BSO Bladder suspension KNEE ARTHROSCOPY W/ LASER Left 2014 LAMINECTOMY DECOMP LUMBAR W/FUSION 4 OR MORE LVL N/A 11/08/2017 Procedure: HARDWARE REMOVAL L4-S1, DECOMPRESSION/FUSION L2-L4, PLIF, REINSTRUMENT L2-S1; Surgeon: Alejo Hummel MD; Location: [facility] Main OR; Service: Orthopedic LUMBAR LAMINECTOMY 10/11/2003 L5-S1 decompression w/interbody fusion bilateral and posterior fusion fixation LUNG BIOPSY Right ROTATOR CUFF REPAIR Left TONSILLECTOMY TOTAL KNEE ARTHROPLASTY Right VEIN SURGERY 2014 vein taken out in lower Left leg in [place] Dr. Jesica SANCHES TOOTH EXTRACTION For complete objective data, detailed plan of care and patient education refer to: OT Evaluation flowsheet, OT Evaluation and Treatment flowsheet, OT Treatment flowsheet, patient Plan of Care, Plan of Care progress note, and Patient Education. This note stands as the current Discharge Summary upon patient discharge from the hospital or completion of Occupational Therapy Plan of Care. * Dorinda Albrecht, PT - 03/13/2021 3:53 PM EDT Physical Therapy Physical Therapy Plan of Care Certification Note Coded Admission Diagnosis Displacement of cervical intervertebral disc without myelopathy [M50.20] PT Functional Diagnosis: R26.2 Difficulty in walking, not elsewhere classified PT Goals Multidisciplinary Problems (Active) Problem: Mobility - Impaired Dates: Start: 03/13/21 Disciplines: PT Goal: PT- bed mobility Dates: Start: 03/13/21 Expected End: 03/20/21 Description: PT - Patient will perform bed mobility with independence to improve functional mobility and safety. Disciplines: PT Goal: PT- sit to stand transfer Dates: Start: 03/13/21 Expected End: 03/20/21 Description: PT - Patient will perform sit to/from stand transfer with modified independence to improve functional mobility and safety. Disciplines: PT Goal: PT- dynamic balance Dates: Start: 03/13/21 Expected End: 03/27/21 Description: PT - Patient will perform standing dynamic balance activities without device with contact guard x4 minutes to improve functional mobility and safety. Disciplines: PT Goal: PT- ambulation Dates: Start: 03/13/21 Expected End: 03/27/21 Description: PT - Patient will ambulate 250 feet without device with independence to improve functional mobility and safety. Disciplines: PT Goal: PT- stair climbing Dates: Start: 03/13/21 Expected End: 03/27/21 Description: PT - Patient will ascend and descend 4 stairs with reciprocal technique with 1 rail with modified independence to improve functional mobility and safety. Disciplines: PT Intervention: EDUCATION, ASSISTIVE DEVICE TRAINING Frequency: PRN Dates: Start: 03/13/21 Intervention: EDUCATION, BED MOBILITY TRAINING Frequency: PRN Dates: Start: 03/13/21 Intervention: EDUCATION, BALANCE TRAINING Frequency: PRN Dates: Start: 03/13/21 Description: REMINDER(s): Reinforce education provided by Physical Therapy related to balance training. Intervention: EDUCATION, GAIT TRAINING Frequency: PRN Dates: Start: 03/13/21 Intervention: EDUCATION, STAIR TRAINING Frequency: PRN Dates: Start: 03/13/21 Intervention: EDUCATION, TRANSFER TRAINING Frequency: PRN Dates: Start: 03/13/21 Frequency of Treatment (times per week): 2 times per day This physical Therapy Plan of Care will be carried out until: 1.) The PT plan has been resolved or 2.) The [facility] * Dorinda Albrecht, PT - 03/13/2021 3:33 PM EDT Physical Therapy PHYSICAL THERAPY EVALUATION Skilled Therapy Needs After Discharge Anticipate Resolution of Current Assessment Limitations Including: Mechanical Barriers, Pain Are Skilled Therapy Services Needed After Discharge: No DME Recommendation: None Rehab Potential: Good All pt needs met and call light in reach. RN notified of pt's current level of function and assistance. Pt's white board and mobility card were updated to reflect the pt's current activity level. All alarms were set according to pt's fall risk score. I utilized the following PPE throughout this therapy session: Gloves, Surgical mask and Safety glasses Pt was educated on c-spine precautions after surgery. Pt will need reinforcement. Outcomes Measures Prior Function - Basic Mobility Raw Score: 24 Points Prior Function - Basic Mobility % Impaired: 0% AM-PAC Basic Mobility Raw Score: 18 Points AM-PAC Basic Mobility % Impaired: 40.47% Physical Therapy Assessment History: The following factors influence the patient's participation in the PT plan of care: Personal Factors: Limited Baseline Mobility Environmental Factors: Steps to enter home The following co-morbidities (from this admission or prior) influence the patient's participation in this plan of care: Back surgery Number of History elements affecting this patient's PT plan of care: 3 or more Examination of Body Systems: The patient presents with: Musculoskeletal impairments: Pain, Functional Endurance Neurologic Impairments: Balance Cardiopulmonary Impairments: Activity Tolerance. These impairments result in limitations of Gait, Functional Transfers, Stair- Climbing, Activity Tolerance. These impairments result in restrictions of Household mobility, Community mobility, Leisure activities. Number of Body Systems elements affecting this patient's PT plan of care: 4 or more. Clinical Presentation: The patient's clinical presentation for this PT evaluation is evolving with changing characteristics as evidenced by current PT documentation. Activity Tolerance Activity Tolerance: Tolerates 20 - 30 min activity with multiple rests Therapy Precautions Orthotic Devices: No Weight Bearing Status: WFL General Rehab Precautions: Fall risk, Back Balance Assessment Sitting Balance - Static: Stand by assist Sitting Balance - Dynamic: Stand by assist Standing Balance - Static: Contact guard assist Meter Maintenance Person - Standing Static: wheeled walker Standing Balance - Dynamic: Contact guard assist Meter Maintenance Person - Standing Dynamic: wheeled walker Bed Mobility Rolling: Stand by assist Supine to Sit: Stand by assist Transfers Sit to Stand: Contact guard assist Gait/Locomotion Gait Assistance: Contact guard assist Assistive Device: wheeled walker Distance: 100 Feet Pattern: Within Functional Limits Home Living Obtained Home Living and PLOF info from: Patient Lives With: Spouse Type of Home: House Home Layout: Two level, Able to live on main level with bedroom/bathroom Steps to enter home: Yes Rails to enter home: 1 rail Number of stairs to enter home: 4 Mobility Equipment: Cane, Wheeled walker Additional Objective Details - Home Living: Pt reports using FWW 20% of the time and no device 80% of the time Prior Level of Function Level of Cidra - Transfers/Ambulation/Mobility: Independent with functional transfers Level of Cidra - ADLs: Independent Level of Cidra - Homemaking: Needs assistance Past Medical History: Diagnosis Date Anxiety Arthritis osteo Asthma 08/23/2014 Chronic pain disorder rt foot, hx 4 foot fractures; calves of legs cause pain,muscle spasms COPD (chronic obstructive pulmonary disease) (HCC) Depression Diastolic dysfunction mild per echo on 06/08/2019 Fibromyalgia, primary GERD (gastroesophageal reflux disease) patient denies Hypertension controlled Hypertension 04/01/2015 Migraines Obesity AYO (obstructive sleep apnea) unable to use cpap; recently received mouthpiece but not using Pneumonia x2 , had 2 pneumonia shots Restless legs syndrome Shoulder joint pain Spinal stenosis Varicose veins of both lower extremities Past Surgical History: Procedure Laterality Date ANTERIOR CERVICAL DISCECTOMY 02/25/2009 C5-6, C6-7 AR'SCOPY SHOULD SAD, SLAP, RCR, RESECT DISTAL CLAVICLE, BICEPS TENODESIS Right 11/04/2015 ARTHROPLASTY HIP TOTAL Right 02/27/2018 Procedure: RIGHT TOTAL HIP ARTHROPLASTY; Surgeon: Gabo Sears MD; Location: [facility] Main OR; Service: Orthopedic BACK SURGERY 2008,2002 x 2 Low back, BLADDER SUSPENSION bladder tie-up BRONCHOSCOPY CARDIAC CATHETERIZATION Bilateral 09/21/2006 COLONOSCOPY FOOT SURGERY Right 03/08/2005 Third interdigital neuroma excision, fourth metatarsal osteotomy w/capsulotomy, fifth metatarsal head excision HARDWARE REMOVAL ANTERIOR CERVICAL 07/22/2014 C5, C6-7 HARDWARE REMOVAL LUMBAR 01/02/2009 L5-S1 w/ redo decompression laminectomy HYSTERECTOMY CARLOS MANUEL BSO Bladder suspension KNEE ARTHROSCOPY W/ LASER Left 2014 LAMINECTOMY DECOMP LUMBAR W/FUSION 4 OR MORE LVL N/A 11/08/2017 Procedure: HARDWARE REMOVAL L4-S1, DECOMPRESSION/FUSION L2-L4, PLIF, REINSTRUMENT L2-S1; Surgeon: Alejo Hummel MD; Location: [facility] Main OR; Service: Orthopedic LUMBAR LAMINECTOMY 10/11/2003 L5-S1 decompression w/interbody fusion bilateral and posterior fusion fixation LUNG BIOPSY Right ROTATOR CUFF REPAIR Left TONSILLECTOMY TOTAL KNEE ARTHROPLASTY Right VEIN SURGERY 2014 vein taken out in lower Left leg in [place] Dr. Jesica SANCHES TOOTH EXTRACTION For complete objective data, detailed plan of care and patient education refer to: PT Evaluation flowsheet, PT Evaluation and Treatment flowsheet, PT Treatment flowsheet, patient Plan of Care, Plan of Care progress note, and Patient Education. This note stands as the current Discharge Summary upon patient discharge from the hospital or completion of Physical Therapy Plan. documented in this [id number] Hospital course Narrative* Jose Fraga MD - 03/14/2021 11:33 AM EDT DISCHARGE SUMMARY Patient: Matthew Perez Account: [id number] Admitted: 03/13/2021 Discharge Date/Time: No discharge date for patient encounter. Clinical Summary Admission Diagnosis: Problem Status Post Cervical Spinal Fusion Protrusion of cervical intervertebral disc C4-5 with stenosis Discharge Diagnoses and Associated Hospital Course: Problem Status Post Cervical Spinal Fusion 1 Day Post-Op Post op pain: controlled with po pain meds Surgical neurologic related potential complications: improved upper extremity symptoms compared to preop General symptoms: denies chest pain, shortness of breath, nausea or vomiting Voice/swallowing: minimal difficulty swallowing certain foods and minimal change in voice Medications: Current Facility-Administered Medications: albuterol (PROVENTIL) 2.5 mg /3 mL (0.083 %) nebulizer solution 2.5 mg, 2.5 mg, Nebulization, Q6H PRN, Arianna Ng CNP aluminum-magnesium hydroxide-simethicone (MAALOX PLUS) 200-200-20 mg/5 mL suspension 30 mL, 30 mL, Oral, Q4H PRN, Arianna Ng CNP amLODIPine (NORVASC) tablet 5 mg, 5 mg, Oral, Daily, Arianna Ng CNP, 5 mg at 03/14/21 7321 bisacodyL (DULCOLAX) suppository 10 mg, 10 mg, Rectal, Daily PRN, Arianna Ng CNP clonazePAM (KLONOPIN) tablet 1 mg, 1 mg, Oral, BID PRN, Arianna Ng CNP, 1 mg at 03/13/21 6359 cyclobenzaprine (FLEXERIL) tablet 10 mg, 10 mg, Oral, Q8H PRN, Arianna Ng CNP diphenhydrAMINE (BENADRYL) oral solid 50 mg, 50 mg, Oral, Nightly PRN, Arianna Ng CNP DULoxetine (CYMBALTA) DR capsule 60 mg, 60 mg, Oral, BID, Arianna Ng CNP, 60 mg at 03/14/21 08 furosemide (LASIX) tablet 20 mg, 20 mg, Oral, Daily, Arianna Ng CNP, 20 mg at 03/14/21 0827 HYDROmorphone (DILAUDID) tablet 4-6 mg, 4-6 mg, Oral, Q4H PRN, Arianna Ng CNP, 4 mg at 03/14/21 1019 ipratropium-albuteroL (DUO-NEB) 0.5-2.5 mg/3 ml nebulizer solution 3 mL, 3 mL, Inhalation, 4x daily, Arianna Ng CNP, 3 mL at 03/14/21 0708 lactated Ringers infusion, 25 mL/hr, Intravenous, Continuous, Marcelino WeissNorman Jain DO lisinopriL (PRINIVIL,ZESTRIL) tablet 20 mg, 20 mg, Oral, QPM, Arianna Ng CNP, 20 mg at 03/13/212008 magnesium hydroxide (MOM) 400 mg/5 mL suspension 2,400 mg, 30 mL, Oral, Daily PRN, Arianna Ng CNP melatonin Tab 5 mg, 5 mg, Oral, Nightly, Arianna Ng CNP, 5 mg at 03/13/212008 montelukast (SINGULAIR) tablet 10 mg, 10 mg, Oral, Daily, Arianna Ng CNP, 10 mg at 03/14/21 08 naloxone (NARCAN) injection 0.1 mg, 0.1 mg, Intravenous, PRN AND Notify physician, , , Until Discontinued AND naloxone (NARCAN) injection 0.4 mg, 0.4 mg, Intravenous, PRN, Arianna Ng CNP ondansetron (ZOFRAN-ODT) disintegrating tablet 4 mg, 4 mg, Oral, Q6H PRN OR ondansetron (ZOFRAN) injection 4 mg, 4 mg, Intravenous, Q6H PRN, Arianna Ng CNP oxyCODONE (OXYCONTIN) 12 hr tablet 20 mg, 20 mg, Oral, Q12H, Arianna Ng CNP, 20 mg at 03/14/21 0827 prochlorperazine (COMPAZINE) injection 5 mg, 5 mg, Intramuscular, Q6H PRN, Arianna Ng CNP rOPINIRole (REQUIP) tablet 4 mg, 4 mg, Oral, Nightly, Arianna Ng CNP, 4 mg at 03/13/212008 senna-docusate (SENNA-S) 8.6-50 mg per tablet 1 tablet, 1 tablet, Oral, BID, Arianna Ng CNP,1 tablet at 03/14/21 0827 Saline lock IV, , , Continuous AND sodium chloride (PF) (NS) flush 5 mL, 5 mL, Intravenous, PRNAND sodium chloride (PF) (NS) flush 5 mL, 5 mL, Intravenous, Q8H DAIN, 5 mL at 03/13/21 1600 AND sodium chloride 0.9% (NS), 0-150 mL/hr, Intravenous, PRN, Arianna Ng CNP, Stopped at 03/14/21 0549 sodium chloride 0.9% (NS), 25 mL/hr, Intravenous, Continuous, Marcelino WeissNorman Crisotbal, DO sodium chloride 0.9% (NS), 100 mL/hr, Intravenous, Continuous, Arianna Ng CNP, Stopped at 03/13/21 1918 tiZANidine (ZANAFLEX) tablet 4 mg, 4 mg, Oral, TID, Arianna Ng CNP, 4 mg at 03/13/21 1606 traZODone (DESYREL) tablet 50 mg, 50 mg, Oral, Nightly, Arianna Ng CNP, 50 mg at 03/13/212008 Physical Examination: Vital Signs: BP 127/88 (BP Location: Left arm, Patient Position: Lying) Pulse (!) 101 Temp 98 F (36.7 C) (Oral) Resp 16 Ht 5' 6 Wt 91.2 kg (201 lb) SpO2 96% BMI 32.44 kg/m I/O last 3 completed shifts: In: 2108.8 [P.O.:360; I.V.:1748.8] Out: 325 [Urine:300; Blood:25] I/O this shift: In: 120 [P.O.:120] Out: 100 [Urine:100] Patient Appears in no acute distress. Patient alert oriented and cooperative. Upper extremity motor shows mild intrinsic weakness of the left hand graded as 4/5. Wound clean, dry and intact. Swelling in the right lateral aspect of the wound, unchanged from intraoperative finding related to subcu soft tissue closure. Lab: Lab Results Component Value Date WBC 13.27 (H) 03/14/2021 HGB 12.8 03/14/2021 HCT 38.9 03/14/2021 MCV 83.1 03/14/2021 PLT 166 03/14/2021 Lab Results Component Value Date GLUCOSE 127 (H) 03/14/2021 CALCIUM 8.9 03/14/2021 NA 141 03/14/2021 K 3.6 03/14/2021 CL 106 03/14/2021 BUN 13 03/14/2021 CREATININE 0.68 03/14/2021 Impression: Generally satisfactory postop course. She has returned to her baseline preop mobility and reports she can function at home and is anxiousto sleep in her own bed. Plan: Discharge patient. Protrusion of cervical intervertebral disc C4-5 with stenosis Procedures 03/13/2021: Procedure(s): Anterior cervical discectomy fusion cervical4-5 with plate and allograft Allergies Ibuprofen, Lyrica [pregabalin], Duloxetine, Nsaids (non-steroidal anti- inflammatory drug), and Metformin Discharge Diet: Diet Regular; Regular Discharge Medications Medication List START taking these medications cyclobenzaprine 10 MG tablet Commonly known as: FLEXERIL Take 1 (one) tablet (10 mg total) by mouth every 8 (eight) hours as needed for muscle spasms . CONTINUE taking these medications * albuterol 90 mcg/actuation inhaler * albuterol 2.5 mg /3 mL (0.083 %) nebulizer solution Commonly known as: PROVENTIL amLODIPine 5 MG tablet Commonly known as: NORVASC Anoro Ellipta 62.5-25 mcg/actuation Dsdv Generic drug: umeclidinium-vilanteroL caffeine 200 mg clonazePAM 1 MG tablet Commonly known as: KLONOPIN DULoxetine 60 MG capsule Commonly known as: CYMBALTA furosemide 20 MG tablet Commonly known as: LASIX lisinopriL 20 MG tablet Commonly known as: PRINIVIL,ZESTRIL meclizine 25 mg tablet Commonly known as: ANTIVERT Take 1 (one) tablet (25 mg total) by mouth every 6 (six) hours for 5 days . melatonin 5 mg Tab mirtazapine 15 MG disintegrating tablet Commonly known as: REMERON RODRIGO-TAB Dissolve 1 (one) tablet (15 mg total) on top of tongue nightly . Narcan 4 mg/actuation [address] Generic drug: naloxone Administer 1 spray into one nostril for known or suspected opioid overdose. If patient worsens or does not respond, may repeat in 2-3 minutes. . omeprazole 40 MG capsule Commonly known as: PRILOSEC Take 1 (one) capsule (40 mg total) by mouth daily. oxyCODONE-acetaminophen 10-325 mg per tablet Commonly known as: PERCOCET ranitidine 300 MG tablet Commonly known as: ZANTAC Take 1 (one) tablet (300 mg total) by mouth nightly. rOPINIRole 2 MG tablet Commonly known as: REQUIP Singulair 10 mg tablet Generic drug: montelukast SUMAtriptan 100 MG tablet Commonly known as: IMITREX Take 1 (one) tablet (100 mg total) by mouth as needed for migraine. traZODone 50 MG tablet Commonly known as: DESYREL * This list has 2 medication(s) that are the same as other medications prescribed for you. Read thedirections carefully, and ask your doctor or other care provider to review them with you. Where to Get Your Medications You can get these medications from any pharmacy Bring a paper prescription for each of these medications cyclobenzaprine 10 MG tablet Physician(s) Family: Harmony Gee MD, , Address: [address] [place] [address] / [facility] [address] Follow Up: Jose Fraga MD [address] [place] [address] Follow up in 9 day(s) Harmony Gee MD [facility] [address] Follow up Patient instructions, including activity, were given to the patient/family at discharge. Please seethe After Visit Summary in the medical record for details. Completed by: Jose Fraga on 03/14/21, 11:48 AM documented in this [id number] History of Present illness Narrative* Jose Fraga MD - 03/14/2021 11:22 AM EDT Patient Name: Matthew Perez Admit Date: [id number] MR #: [id number] : 1955 Physicians: Harmony Gee MD (Family) 1 Day Post-Op Post op pain: controlled with po pain meds Surgical neurologic related potential complications: improved upper extremity symptoms compared to preop General symptoms: denies chest pain, shortness of breath, nausea or vomiting Voice/swallowing: minimal difficulty swallowing certain foods and minimal change in voice Medications: Current Facility-Administered Medications: albuterol (PROVENTIL) 2.5 mg /3 mL (0.083 %) nebulizer solution 2.5 mg, 2.5 mg, Nebulization, Q6H PRN, Arianna Ng CNP aluminum-magnesium hydroxide-simethicone (MAALOX PLUS) 200-200-20 mg/5 mL suspension 30 mL, 30 mL, Oral, Q4H PRN, Arianna Ng CNP amLODIPine (NORVASC) tablet 5 mg, 5 mg, Oral, Daily, Arianna Ng CNP, 5 mg at 03/14/21 0827 bisacodyL (DULCOLAX) suppository 10 mg, 10 mg, Rectal, Daily PRN, Arianna Ng CNP clonazePAM (KLONOPIN) tablet 1 mg, 1 mg, Oral, BID PRN, Arianna Ng CNP, 1 mg at 03/13/21 2134 cyclobenzaprine (FLEXERIL) tablet 10 mg, 10 mg, Oral, Q8H PRN, Arianna Ng CNP diphenhydrAMINE (BENADRYL) oral solid 50 mg, 50 mg, Oral, Nightly PRN, Arianna Ng CNP DULoxetine (CYMBALTA) DR capsule 60 mg, 60 mg, Oral, BID, Arianna Ng CNP, 60 mg at 03/14/21826 furosemide (LASIX) tablet 20 mg, 20 mg, Oral, Daily, Arianna Ng CNP, 20 mg at 03/14/2127 HYDROmorphone (DILAUDID) tablet 4-6 mg, 4-6 mg, Oral, Q4H PRN, Arianna Ng CNP, 4 mg at 03/14/21 1019 ipratropium-albuteroL (DUO-NEB) 0.5-2.5 mg/3 ml nebulizer solution 3 mL, 3 mL, Inhalation, 4x daily, Arianna Ng CNP, 3 mL at 03/14/21 0708 lactated Ringers infusion, 25 mL/hr, Intravenous, Continuous, Marcelino Jain DO lisinopriL (PRINIVIL,ZESTRIL) tablet 20 mg, 20 mg, Oral, QPM, Arianna Ng CNP, 20 mg at 03/13/212008 magnesium hydroxide (MOM) 400 mg/5 mL suspension 2,400 mg, 30 mL, Oral, Daily PRN, Arianna Ng CNP melatonin Tab 5 mg, 5 mg, Oral, Nightly, Arianna Ng CNP, 5 mg at 03/13/212008 montelukast (SINGULAIR) tablet 10 mg, 10 mg, Oral, Daily, Arianna Ng CNP, 10 mg at 03/14/21826 naloxone (NARCAN) injection 0.1 mg, 0.1 mg, Intravenous, PRN AND Notify physician, , , Until Discontinued AND naloxone (NARCAN) injection 0.4 mg, 0.4 mg, Intravenous, PRN, Arianna Ng CNP ondansetron (ZOFRAN-ODT) disintegrating tablet 4 mg, 4 mg, Oral, Q6H PRN OR ondansetron (ZOFRAN) injection 4 mg, 4 mg, Intravenous, Q6H PRN, Arianna Ng CNP oxyCODONE (OXYCONTIN) 12 hr tablet 20 mg, 20 mg, Oral, Q12H, Arianna Ng CNP, 20 mg at 03/14/21 0827 prochlorperazine (COMPAZINE) injection 5 mg, 5 mg, Intramuscular, Q6H PRN, Arianna Ng CNP rOPINIRole (REQUIP) tablet 4 mg, 4 mg, Oral, Nightly, Arianna Ng CNP, 4 mg at 03/13/212008 senna-docusate (SENNA-S) 8.6-50 mg per tablet 1 tablet, 1 tablet, Oral, BID, Arianna Ng CNP,1 tablet at 03/14/21 0827 Saline lock IV, , , Continuous AND sodium chloride (PF) (NS) flush 5 mL, 5 mL, Intravenous, PRNAND sodium chloride (PF) (NS) flush 5 mL, 5 mL, Intravenous, Q8H DAIN, 5 mL at 03/13/21 1600 AND sodium chloride 0.9% (NS), 0-150 mL/hr, Intravenous, PRN, Arianna Ng CNP, Stopped at 03/14/21 0549 sodium chloride 0.9% (NS), 25 mL/hr, Intravenous, Continuous, Marcelino Jain, sodium chloride 0.9% (NS), 100 mL/hr, Intravenous, Continuous, Arianna Ng CNP, Stopped at 03/13/21 1918 tiZANidine (ZANAFLEX) tablet 4 mg, 4 mg, Oral, TID, Arianna Ng CNP, 4 mg at 03/13/21 1606 traZODone (DESYREL) tablet 50 mg, 50 mg, Oral, Nightly, Arianna Ng CNP, 50 mg at 03/13/212008 Physical Examination: Vital Signs: BP 127/88 (BP Location: Left arm, Patient Position: Lying) Pulse (!) 101 Temp 98 F (36.7 C) (Oral) Resp 16 Ht 5' 6 Wt 91.2 kg (201 lb) SpO2 96% BMI 32.44 kg/m I/O last 3 completed shifts: In: 2108.8 [P.O.:360; I.V.:1748.8] Out: 325 [Urine:300; Blood:25] I/O this shift: In: 120 [P.O.:120] Out: 100 [Urine:100] Patient Appears in no acute distress. Patient alert oriented and cooperative. Upper extremity motor shows mild intrinsic weakness of the left hand graded as 4/5. Wound clean, dry and intact. Swelling in the right lateral aspect of the wound, unchanged from intraoperative finding related to subcu soft tissue closure. Lab: Lab Results Component Value Date WBC 13.27 (H) 03/14/2021 HGB 12.8 03/14/2021 HCT 38.9 03/14/2021 MCV 83.1 03/14/2021 PLT 166 03/14/2021 Lab Results Component Value Date GLUCOSE 127 (H) 03/14/2021 CALCIUM 8.9 03/14/2021 NA 141 03/14/2021 K 3.6 03/14/2021 CL 106 03/14/2021 BUN 13 03/14/2021 CREATININE 0.68 03/14/2021 Impression: Generally satisfactory postop course. She has returned to her baseline preop mobility and reports she can function at home and is anxiousto sleep in her own bed. Plan: Discharge patient. documented in this [id number] Miscellaneous Notes* Plan of Care - Allie Trammell RN - 03/14/2021 10:40 AM EDT Problem: Actual or potential alteration in health Goal: Absence of healthcare acquired conditions Outcome: Partially Met Goal: Knowledge of Interdisciplinary Plan of Care Outcome: Partially Met Goal: Knowledge of Enviroment Outcome: Partially Met Problem: Pain Goal: Manage acute pain Outcome: Partially Met Goal: Manage chronic pain Outcome: Partially Met Goal: Reduced pain sensation Outcome: Partially Met Goal: Achievement of comfort function goal Outcome: Partially Met Problem: Falls, Risk of Goal: Absence of falls Outcome: Partially Met * Plan of Care - Sussy Mcneal RN - 03/13/2021 4:17 PM EDT Problem: Actual or potential alteration in health Goal: Absence of healthcare acquired conditions Outcome: Partially Met Goal: Knowledge of Interdisciplinary Plan of Care Outcome: Partially Met Goal: Knowledge of Enviroment Outcome: Partially Met Problem: Pain Goal: Manage acute pain Outcome: Partially Met Goal: Manage chronic pain Outcome: Partially Met Goal: Reduced pain sensation Outcome: Partially Met Goal: Achievement of comfort function goal Outcome: Partially Met Problem: Falls, Risk of Goal: Absence of falls Outcome: Partially Met * Brief Op Note - Jose Fraga MD - 03/13/2021 2:01 PM EDT Brief Post Operative Note Patient Name: Matthew Perez : 1955 (66 y.o.) Date of Service: 03/13/2021 CSN: [id number] Procedure(s): Anterior cervical discectomy fusion cervical4-5 with plate and allograft Pre-Operative Diagnoses: * Displacement of cervical intervertebral disc without myelopathy [M50.20] Post-Operative Diagnoses: * Displacement of cervical intervertebral disc without myelopathy [M50.20] Surgeon(s) and Role: * Jose Fraga MD - Primary Anesthesiologist: Rosanna Horton MD INSPECTING AND TESTING LEAD HAND: Ray Chapman CRNA Student Nurse Cathead Operator: Yobani Lin Superintendent Stations: Donald Potter RN Core Fitter: Cindy Armendariz, TECHNOLOGIST Scrub Person: ST SHARIF GutierrezA: Kayy Limon RN Operative findings: As above Intra and immediate post-operative complications: none Type of anesthesia used: General Estimated blood loss: 25 mL Estimated urine output: 200 mL Specimen(s): ID Type Source Tests Collected by Time Destination A : c4-5 Tissue Intervertebral Disc, Please Specify TISSUE EXAM Jose Fraga MD 03/13/2021 1345 Implant(s): Implant Name Type Inv. Item Serial No. Rn Medicare Lot No. LRB No. Used Action SEALANT 5ML HEMOSTATIC MATRIX FAST PREP FLOSEAL - [id number] SEALANT 5ML HEMOSTATIC MATRIX FAST PREP FLOSEAL [employer] BIO [id number] N/A 1 Implanted HEMOSTAT 8 X 6.25CM X 10MM SURGIFOAM GELATIN SPONGE - [id number] HEMOSTAT 8 X 6.25CM X 10MM SURGIFOAM GELATIN SPONGE ETHICON [id number] N/A 1 Implanted SCREW 4 X 14MM JAN SELF-TAP ATLANTIS - [id number] SCREW 4 X 14MM JAN SELF-TAP ATLANTIS MEDTRO SPI N/A 4 Implanted PLATE 21MM 1LVL ANT CERV ATLANTIS VISION ELITE - [id number] PLATE 21MM 1LVL ANT CERV ATLANTIS VISION ELITE MEDTRO SPI N/A 1 Implanted Drain(s): Urethral Catheter Double-lumen;Non-latex 16 Fr. (Active) Wound(s): Wound 03/13/21 Surgical Wound Neck (Active) Jose Fraga MD 03/13/2021 2:01 PM * Op Note - Jose Fraga MD - 03/13/2021 12:31 PM EDT Matthew Perez [id number] 03/13/21 OPERATIVE REPORT SURGEON JOSE FRAGA MD Preventive Medicine Officer MERLYN Avila Matthew Perez is a 66 y.o. female with a history of intractable neck and upper extremity radicular pain that has been refractory to conservative care. Her MRI shows the presence of: PREOPERATIVE DIAGNOSIS C 4 5 herniated nucleus pulposus. POSTOPERATIVE DIAGNOSIS C 4 5 herniated nucleus pulposus. OPERATIVE PROCEDURE Anterior cervical decompression, anterior cervical fusion C 4 5 with plate and allograft. ANESTHESIA General. CONSENT After explanation of the elective nature of the procedure, after discussion of the full range of risks and potential complications related to the surgery, after discussion of the potential for additional neck surgery to be required in the future, after discussion of the alternatives of continued nonoperative care, after explanation of the nature of the procedure to be performed and after all questions were answered, the patient requested that we proceed with surgery in an effort to relieve her ongoing bothersome neck pain related symptoms. PROCEDURE After induction of satisfactory general anesthesia, placement of Imchael catheter and SCD boots, the patient was positioned supine on the operative table with head, neck, upper and lower extremities padded and positioned to avoid any joint pain or neural compression syndromes. The anterior cervical spine was prepped and draped in the usual manner. We made a transverse skin incision centered over the C 4 5 level from just to the left of the midline to just posterior to the sternocleidomastoid. This was carried through skin and subcutaneous tissue with bleeders coagulated as encountered. Electrocautery was used to deepen this through the platysma and we elevated that layer from the anterior sternocleidomastoid, and the deep cervical fascia was divided just medial to the sternocleidomastoid. This was extended cranially and caudally. We mobilized trachea and esophagus medially and divided the pretracheal fascia just medial to the carotid sheath, carried this cranially and caudally, and this readily exposed the anterior surface of the vertebral body. We tagged the suspected C 4 5 level with a hemostat confirming our level. We elevated the longus coli muscles from the left and right hand surfaces of C 4 and 5, and placed Trimline retractors which provided satisfactory exposure. We incised the anulus with a scalpel and removed disk with pituitaries, and then placed a Cloward distractor in the right side of the disk space and thoroughly cleaned the disk space out with a combination of straight and angled curettes, pituitary and Kerrison rongeurs. We used the bur to shape the endplates into parallel plantar surfaces and then extended this toward the canal, thinning the apposing posterior osteophytic corners of the vertebral bodies above and below the disk space. We used a straight and angled curette to help mobilize the posterior anulus and then resected this with Kerrison rongeurs. This exposed the anterior surface of the thecal sac. This was fully decompressed at completion of procedure. We prepared both sides by moving the distractor, then placed it on the far right side, and used trials to determine the allograft size and then placed the allograft. We tamped this into position flush with the anterior surface of the vertebral body, after resection of prominent anterior osteophytic corners of the vertebral body adjacent to the disk space. We drilled our initial screw tract and applied the plate. We measured our screw lengths from preop imaging. We placed the left upper screw and then drilled our remaining screw holes and placed our screws, firmly tightening them and then we tightened our set screws, obtained intraoperative film which showed desired placement of our screws and allograft. We irrigated copiously with gentamicin solution. We used a small amount of Floseal over the exposed longus coli muscles where there was a minimal degree of ooze during the procedure. Bleeding was well controlled at completion of the procedure and no drain was used. We closed the deep subcu and platysma layer with interrupted 2-0 Vicryl sutures, and the skin was closed with a running 4-0 Monocryl subcuticular stitch and Steri-Strips. Wound was dressed, patient awakened and transported to the PACU in satisfactory condition. Sponge and needle counts were correct. There were no complications. The patient tolerated the procedure well. There was about 25 mL of blood loss. JOSE FRAGA MD documented in this [id number] Nurse Note* Urbano Fong RN - 03/13/2021 3:24 PM EDT This patiet called the son (Lars) and udpated him about the condition of his mother and what room she was being admitted to. * Amandeep Srivastava RN - 03/13/2021 11:22 AM EDT OK to call son Lars after surgery and give an update per Matthew and son Lars. * Amandeep Srivastava RN - 03/13/2021 9:41 AM EDT Consent and arm band name of patient is misspelled. Patients armband and consent is spelled the same as drivers license which is also misspelled. Verified with charge nurse Urbano Fong. OK to proceed with current documentation. documented in this [id number] History and physical note* Alena Rivera CNP - 03/13/2021 10:44 AM EDT INTERVAL HISTORY AND PHYSICAL Patient Name: Matthew Perez Admit Date: [id number] MR #: [id number] : 1955 The H&P has been reviewed and the patient has been examined. I concur with the findings of the H&P. There are no significant changes. It is appropriate to proceed with the planned procedure. Alena Rivera CNP 03/13/2021 10:44 AM * Kristyn Ha MD - 02/26/2021 4:06 PM EDT Cardiology Office Visit [facility] [address] [place] [phone] Physicians: Harmony Gee MD (Family); Jose Fraga* (Referring) Assessment & Plan: Problem List Items Addressed This Visit Cardiology Problems Hypertension Stable, albeit somewhat low today. She is on amlodipine, furosemide, and lisinopril. Continue with current medical therapy. Recommend therapeutic lifestyle changes including diet, exercise, weight loss, and reduced sodium intake. Other AYO (obstructive sleep apnea) Recommend compliance with CPAP. History of cardiomyopathy She has had normal systolic function on her last 2 echocardiography evaluations. She is without evidence of heart failure or volume overload. Continue to follow clinically. Follow-up in 1 year. Obesity Weight loss recommended. Spinal stenosis In need of surgery. Diastolic dysfunction History of grade 1 diastolic dysfunction noted on prior echocardiography. She is without evidence of volume overload or heart failure. She is on furosemide and JAVAN in addition therapy. Good blood pressure control remains of paramount importance. Preoperative cardiovascular examination - Primary Based on revised Luciano cardiac risk index and the 2014 ACC/AHA clinical guidelines and preoperative cardiovascular risk assessment evaluation, she would have a low CV risk of noncardiac surgery with an MACE rate of 0.4-1.0%. Although she is not able to achieve 4 METS of physical activity, she is without high risk features including decompensated heart failure, malignant arrhythmia, or unstable angina. No further cardiovascular testing would be recommended prior to surgery. Follow Up Ordered: Return in about 1 year (around 02/26/2022). Matthew Perez is a 65 y.o. female seen in the office today for Pre-op Exam (surgery clearance / neck surgery / dr fraga / 03/13/21 / no cardiac issues ) HPI: Matthew Perez is a 65 y.o. female with a past medical history significant for hypertension, past cardiomyopathy (with restored LV dysfunction), COPD, obesity, obstructive sleep apnea (without CPAP), and significant problems with spinal stenosis who presents for preoperative cardiovascular risk assessment evaluation. She states that she has significant problems with pain in her neck and numbness and paresthesias. She has been diagnosed with spinal stenosis and has been scheduled to undergo anterior cervical discectomy and fusion of cervical 4-5 with plate and allograft on 03/13/2021. She was evaluated by her PCP(02/23/2021) and referred for cardiovascular evaluation. She states that she is generally well from an overall CV standpoint and has not followed with cardiology in a number years. She was initially noted to have a mild cardiomyopathy with mild global hypokinesis and an EF of 45% in 2005. She underwent cardiac catheterization which demonstrated no angiographically definable coronary artery disease. She reports that she had done well until March 2019 when driving back from the [facility], she had an episode of viral syndrome with significant fever. She was mated to a hospital in [place] on 04/15/2019 and discharged on 04/16/2019. CT PE was unremarkable and echocardiography demonstrated normal function. She had a subsequent follow-up echo in 06/08/2019 that also demonstrated normal systolic function. She states that her activity levels are not as good as they should be but she is able to perform some of her ADLs without cardiovascular symptomsor complaints. She denies any chest pain or angina. She denies any palpitations or perceived dysrhythmia, lightheadedness, dizziness, near syncope or syncope. She denies any heart failure symptoms including orthopnea, PND, or LE edema. She denies a history of coronary disease or myocardial infarction, cerebrovascular disease, diabetes mellitus, or chronic kidney disease. Histories: Past Medical History: Diagnosis Date Arthritis osteo Asthma 08/23/2014 Chronic pain disorder rt foot, hx 4 foot fractures; calves of legs cause pain,muscle spasms COPD (chronic obstructive pulmonary disease) (HCC) Depression Diastolic dysfunction mild per echo on 06/08/2019 Fibromyalgia, primary GERD (gastroesophageal reflux disease) patient denies Hypertension controlled Hypertension 04/01/2015 Migraines Obesity AYO (obstructive sleep apnea) unable to use cpap; recently received mouthpiece but not using Pneumonia x2 , had 2 pneumonia shots Restless legs syndrome Shoulder joint pain Spinal stenosis Varicose veins of both lower extremities Past Surgical History: Procedure Laterality Date ANTERIOR CERVICAL DISCECTOMY 02/25/2009 C5-6, C6-7 AR'BRITTON SHOULD SAD, SLAP, RCR, RESECT DISTAL CLAVICLE, BICEPS TENODESIS Right 11/04/2015 ARTHROPLASTY HIP TOTAL Right 02/27/2018 Procedure: RIGHT TOTAL HIP ARTHROPLASTY; Surgeon: Gabo Sears MD; Location: [facility] Main OR; Service: Orthopedic BACK SURGERY 2008,2002 x 2 Low back, BLADDER SUSPENSION bladder tie-up BRONCHOSCOPY CARDIAC CATHETERIZATION Bilateral 09/21/2006 COLONOSCOPY FOOT SURGERY Right 03/08/2005 Third interdigital neuroma excision, fourth metatarsal osteotomy w/capsulotomy, fifth metatarsal head excision HARDWARE REMOVAL ANTERIOR CERVICAL 07/22/2014 C5, C6-7 HARDWARE REMOVAL LUMBAR 01/02/2009 L5-S1 w/ redo decompression laminectomy HYSTERECTOMY CARLOS MANUEL BSO Bladder suspension KNEE ARTHROSCOPY W/ LASER Left 2014 LAMINECTOMY DECOMP LUMBAR W/FUSION 4 OR MORE LVL N/A 11/08/2017 Procedure: HARDWARE REMOVAL L4-S1, DECOMPRESSION/FUSION L2-L4, PLIF, REINSTRUMENT L2-S1; Surgeon: Alejo Hummel MD; Location: [facility] Main OR; Service: Orthopedic LUMBAR LAMINECTOMY 10/11/2003 L5-S1 decompression w/interbody fusion bilateral and posterior fusion fixation LUNG BIOPSY Right ROTATOR CUFF REPAIR Left TONSILLECTOMY TOTAL KNEE ARTHROPLASTY Right VEIN SURGERY 2014 vein taken out in lower Left leg in [place] Dr. Jesica SANCHES TOOTH EXTRACTION Allergies Allergen Reactions Ibuprofen GI Intolerance Lyrica [Pregabalin] Other (See Comments) nightmares Duloxetine GI Intolerance Nausea Nsaids (Non-Steroidal Anti-Inflammatory Drug) GI Intolerance Metformin GI Intolerance Patient's Medications New Prescriptions No medications on file Previous Medications ALBUTEROL (PROVENTIL) 2.5 MG /3 ML (0.083 %) NEBULIZER SOLUTION Take 2.5 mg by nebulization daily as needed . AMLODIPINE (NORVASC) 5 MG TABLET Take 5 mg by mouth daily . ANORO ELLIPTA 62.5-25 MCG/ACTUATION DSDV CLONAZEPAM (KLONOPIN) 1 MG TABLET Take 1 mg by mouth 2 (two) times a day as needed . DULOXETINE (CYMBALTA) 60 MG CAPSULE Take 60 mg by mouth 2 (two) times a day . FUROSEMIDE (LASIX) 20 MG TABLET Take 20 mg by mouth daily . LISINOPRIL (PRINIVIL,ZESTRIL) 20 MG TABLET Take 20 mg by mouth every evening . MECLIZINE (ANTIVERT) 25 MG TABLET Take 1 (one) tablet (25 mg total) by mouth every 6 (six) hours for 5 days . MELATONIN 5 MG TAB Take 5 mg by mouth nightly . MIRTAZAPINE (REMERON RODRIGO-TAB) 15 MG DISINTEGRATING TABLET Dissolve 1 (one) tablet (15 mg total) on top of tongue nightly . MONTELUKAST (SINGULAIR) 10 MG TABLET Take 10 mg by mouth daily . NARCAN 4 MG/ACTUATION SPRY Administer 1 spray into one nostril for known or suspected opioid overdose. If patient worsens or does not respond, may repeat in 2-3 minutes. . OMEPRAZOLE (PRILOSEC) 40 MG CAPSULE Take 1 (one) capsule (40 mg total) by mouth daily. OXYCONTIN 20 MG 12 HR TABLET PREDNISONE (DELTASONE) 10 MG TABLET 60 mg daily on days 1 through 5, 40 mg on day 6, 20 mg on day 7, 20 mg on day 8, 10 mg on day 9, and 5 mg on day 10 . PROMETHAZINE (PHENERGAN) 25 MG TABLET Take 25 mg by mouth every 6 (six) hours as needed for nausea. RANITIDINE (ZANTAC) 300 MG TABLET Take 1 (one) tablet (300 mg total) by mouth nightly. ROPINIROLE (REQUIP) 2 MG TABLET Take 2 mg by mouth 3 (three) times a day Reasons: Extreme Discomfort in Calves when Sitting or Lying Down. SUMATRIPTAN (IMITREX) 100 MG TABLET Take 1 (one) tablet (100 mg total) by mouth as needed for migraine. TIOTROPIUM (SPIRIVA) [address] 18 mcg into inhaler and inhale daily . TIZANIDINE (ZANAFLEX) 4 MG TABLET TRAZODONE (DESYREL) 50 MG TABLET Take 50 mg by mouth daily . Modified Medications No medications on file Discontinued Medications BUDESONIDE-FORMOTEROL (SYMBICORT) 160-4.5 MCG/ACTUATION INHALER Inhale 2 puffs 2 (two) times a day. CELECOXIB (CELEBREX) 100 MG CAPSULE HYDROCHLOROTHIAZIDE (HYDRODIURIL) 25 MG TABLET Take 25 mg by mouth daily . IBUPROFEN (ADVIL,MOTRIN) 200 MG TABLET Take 200 mg by mouth every 6 (six) hours as needed for pain . IBUPROFEN (ADVIL,MOTRIN) 800 MG TABLET Take 1 (one) tablet (800 mg total) by mouth 2 (two) times a day. OXYCODONE-ACETAMINOPHEN (PERCOCET) 10-325 MG PER TABLET Take 2 (two) tablets by mouth 3 (three) times a day (Days supply per fill: 30) M51.36 Start: 08/07/20. SERTRALINE (ZOLOFT) 100 MG TABLET Take 100 mg by mouth daily . Family History Problem Relation Age of Onset Hypertension Father Heart disease Father Diabetes Father Breast cancer Mother ; cancer went to brain, liver and lungs Brain cancer Mother Liver cancer Mother Lung cancer Mother Hypertension Sister Diabetes Sister Hypertension Other siblings Diabetes Other siblings No Known Problems Brother Surgical complications Neg Hx Anesthesia problems Neg Hx Clotting disorder Neg Hx Deep vein thrombosis Neg Hx Pulmonary embolism Neg Hx Social History Socioeconomic History Marital status: Spouse name: Derrek Number of children: Not on file Years of education: Not on file Highest education level: Not on file Occupational History Not on file Social Needs Financial resource strain: Not on file Food insecurity Worry: Not on file Inability: Not on file Transportation needs Medical: Not on file Non-medical: Not on file Tobacco Use Smoking status: Never Smoker Smokeless tobacco: Never Used Tobacco comment: 02/26/21 Substance and Sexual Activity Alcohol use: Yes Alcohol/week: 0.0 standard drinks Comment: sometimes 10 a year; rare Drug use: No Sexual activity: Yes Partners: Male control/protection: None Lifestyle Physical activity Days per week: Not on file Minutes per session: Not on file Stress: Not on file Relationships Social connections Talks on phone: Not on file Gets together: Not on file Attends sabianist service: Not on file Active member of club or organization: Not on file Attends meetings of clubs or organizations: Not on file Relationship status: Not on file Other Topics Concern Not on file Social History Narrative Merged History Encounter Review of Systems Constitution: Negative. Negative for diaphoresis, malaise/fatigue, weight gain and weight loss. HENT: Negative. Negative for hearing loss, nosebleeds and tinnitus. Eyes: Positive for visual disturbance (wears glasses). Negative for blurred vision. Cardiovascular: Negative. Negative for chest pain, claudication, cyanosis, dyspnea on exertion, irregular heartbeat, leg swelling, near-syncope, orthopnea, palpitations, paroxysmal nocturnal dyspnea and syncope. Respiratory: Negative. Negative for hemoptysis, shortness of breath and snoring. Endocrine: Negative. Negative for cold intolerance and heat intolerance. Hematologic/Lymphatic: Negative. Does not bruise/bleed easily. Skin: Negative. Negative for flushing, poor wound healing and rash. Musculoskeletal: Positive for back pain and neck pain. Negative for muscle weakness and myalgias. Gastrointestinal: Negative. Negative for abdominal pain, change in bowel habit, melena, nausea and vomiting. Genitourinary: Negative. Negative for hematuria. Neurological: Positive for numbness and paresthesias. Negative for loss of balance. Psychiatric/Behavioral: Negative. Negative for memory loss. The patient is not nervous/anxious. Physical Examination: Vitals: Vitals: 02/26/21 1455 BP: 97/64 Pulse: 84 SpO2: 93% Weight: 93.2 kg (205 lb 6.4 oz) Height: 5' 5 Body mass index is 34.18 kg/m . Physical Exam Constitutional: She is oriented to person, place, and time. She appears well- developed and well-nourished. HENT: Head: Normocephalic and atraumatic. Mouth/Throat: Oropharynx is clear and moist. Wearing glasses. Wearing a facial mask. Eyes: Pupils are equal, round, and reactive to light. Conjunctivae, EOM and lids are normal. Neck: Normal range of motion. Neck supple. Normal carotid pulses, no hepatojugular reflux and no JVD present. Carotid bruit is not present. No thyroid mass and no thyromegaly present. Cardiovascular: Normal rate, regular rhythm, S1 normal, S2 normal, normal heart sounds and normal pulses. Exam reveals no gallop, no S3, no S4, no friction rub and no midsystolic click. No murmur heard. Pulmonary/Chest: Effort normal and breath sounds normal. She has no wheezes. She has no rales. Abdominal: Soft. Bowel sounds are normal. She exhibits no distension and no mass. There is no hepatosplenomegaly. There is no abdominal tenderness. There is no rebound and no guarding. Obese. Musculoskeletal: Normal range of motion. General: No tenderness or edema. Neurological: She is alert and oriented to person, place, and time. Gait normal. Skin: Skin is warm, dry and intact. No rash noted. Psychiatric: She has a normal mood and affect. Her behavior is normal. Nursing note and vitals reviewed. Cardiac Catheterization (09/21/2006): No angiographically definable coronary artery disease. Globalsystolic dysfunction; EF 45%. CT PE ([facility])(04/15/2019): No PE, no thoracic aortic aneurysm or dissection. Echocardiography ([facility])(04/16/2019): Normal LV cavity size and systolic function; EF 55-60%. Mild concentric LVH. Grade 1 diastolic dysfunction. Trace AI/MR/TR. Lipids (04/16/2019): Total cholesterol 191, triglycerides 73, HDL 100, LDL 76 mg/dL., EKG (06/08/2019): NSR, left axis deviation, LVH, cannot r/o septal infarct AU. WCTPT-no significant changes noted. Echocardiography (06/08/2019): Normal LV cavity size, wall thickness, and systolic function; EF 55-60%. Grade 1 diastolic dysfunction. Mild AVT. Mild AI, trivial TR/PI. Borderline pulmonary hypertension; RVSP 42 mmHg. EKG ([facility])(02/23/2021): normal sinus rhythm, left axis deviation, IVCD, Kristyn Ha MD, [facility] documented in this [id number] Miscellaneous Notes* Assessment & Plan Note - Kristyn Ha MD - 02/26/2021 4:23 PM EDT Associated Problem(s): Diastolic dysfunction History of grade 1 diastolic dysfunction noted on prior echocardiography. She is without evidence of volume overload or heart failure. She is on furosemide and JAVAN in addition therapy. Good blood pressure control remains of paramount importance. * Assessment & Plan Note - Kristyn Ha MD - 02/26/2021 4:23 PM EDT Associated Problem(s): Spinal stenosis In need of surgery. * Assessment & Plan Note - Kristyn Ha MD - 02/26/2021 4:22 PM EDT Associated Problem(s): AYO (obstructive sleep apnea) Recommend compliance with CPAP. * Assessment & Plan Note - Kristyn Ha MD - 02/26/2021 4:22 PM EDT Associated Problem(s): Obesity Weight loss recommended. * Assessment & Plan Note - Kristyn Ha MD - 02/26/2021 4:22 PM EDT Associated Problem(s): History of cardiomyopathy She has had normal systolic function on her last 2 echocardiography evaluations. She is without evidence of heart failure or volume overload. Continue to follow clinically. Follow-up in 1 year. * Assessment & Plan Note - Kristyn Ha MD - 02/26/2021 4:21 PM EDT Associated Problem(s): Hypertension Stable, albeit somewhat low today. She is on amlodipine, furosemide, and lisinopril. Continue with current medical therapy. Recommend therapeutic lifestyle changes including diet, exercise, weight loss, and reduced sodium intake. * Assessment & Plan Note - Kristyn Ha MD - 02/26/2021 4:19 PM EDT Associated Problem(s): Preoperative cardiovascular examination Based on revised Luciano cardiac risk index and the 2014 ACC/AHA clinical guidelines and preoperative cardiovascular risk assessment evaluation, she would have a low CV risk of noncardiac surgery with an MACE rate of 0.4-1.0%. Although she is not able to achieve 4 METS of physical activity, she is without high risk features including decompensated heart failure, malignant arrhythmia, or unstable angina. No further cardiovascular testing would be recommended prior to surgery. documented in this [id number] History of Present illness Narrative* Kristyn Ha MD - 02/26/2021 4:06 PM EDT Cardiology Office Visit [facility] [address] [place], [place] [address]Lu[place] [facility] [id number] Physicians: Harmony Gee MD (Family); Jose Fraga* (Referring) Assessment & Plan: Problem List Items Addressed This Visit Cardiology Problems Hypertension Stable, albeit somewhat low today. She is on amlodipine, furosemide, and lisinopril. Continue with current medical therapy. Recommend therapeutic lifestyle changes including diet, exercise, weight loss, and reduced sodium intake. Other AYO (obstructive sleep apnea) Recommend compliance with CPAP. History of cardiomyopathy She has had normal systolic function on her last 2 echocardiography evaluations. She is without evidence of heart failure or volume overload. Continue to follow clinically. Follow-up in 1 year. Obesity Weight loss recommended. Spinal stenosis In need of surgery. Diastolic dysfunction History of grade 1 diastolic dysfunction noted on prior echocardiography. She is without evidence of volume overload or heart failure. She is on furosemide and JAVNA in addition therapy. Good blood pressure control remains of paramount importance. Preoperative cardiovascular examination - Primary Based on revised Luciano cardiac risk index and the 2014 ACC/AHA clinical guidelines and preoperative cardiovascular risk assessment evaluation, she would have a low CV risk of noncardiac surgery with an MACE rate of 0.4-1.0%. Although she is not able to achieve 4 METS of physical activity, she is without high risk features including decompensated heart failure, malignant arrhythmia, or unstable angina. No further cardiovascular testing would be recommended prior to surgery. Follow Up Ordered: Return in about 1 year (around 02/26/2022). Matthew Perez is a 65 y.o. female seen in the office today for Pre-op Exam (surgery clearance / neck surgery / dr fraga / 03/13/21 / no cardiac issues ) HPI: Matthew Perez is a 65 y.o. female with a past medical history significant for hypertension, past cardiomyopathy (with restored LV dysfunction), COPD, obesity, obstructive sleep apnea (without CPAP), and significant problems with spinal stenosis who presents for preoperative cardiovascular risk assessment evaluation. She states that she has significant problems with pain in her neck and numbness and paresthesias. She has been diagnosed with spinal stenosis and has been scheduled to undergo anterior cervical discectomy and fusion of cervical 4-5 with plate and allograft on 03/13/2021. She was evaluated by her PCP(02/23/2021) and referred for cardiovascular evaluation. She states that she is generally well from an overall CV standpoint and has not followed with cardiology in a number years. She was initially noted to have a mild cardiomyopathy with mild global hypokinesis and an EF of 45% in 2005. She underwent cardiac catheterization which demonstrated no angiographically definable coronary artery disease. She reports that she had done well until March 2019 when driving back from the [facility], she had an episode of viral syndrome with significant fever. She was mated to a hospital in [place] on 04/15/2019 and discharged on 04/16/2019. CT PE was unremarkable and echocardiography demonstrated normal function. She had a subsequent follow-up echo in 06/08/2019 that also demonstrated normal systolic function. She states that her activity levels are not as good as they should be but she is able to perform some of her ADLs without cardiovascular symptomsor complaints. She denies any chest pain or angina. She denies any palpitations or perceived dysrhythmia, lightheadedness, dizziness, near syncope or syncope. She denies any heart failure symptoms including orthopnea, PND, or LE edema. She denies a history of coronary disease or myocardial infarction, cerebrovascular disease, diabetes mellitus, or chronic kidney disease. Histories: Past Medical History: Diagnosis Date Arthritis osteo Asthma 08/23/2014 Chronic pain disorder rt foot, hx 4 foot fractures; calves of legs cause pain,muscle spasms COPD (chronic obstructive pulmonary disease) ([facility]) Depression Diastolic dysfunction mild per echo on 06/08/2019 Fibromyalgia, primary GERD (gastroesophageal reflux disease) patient denies Hypertension controlled Hypertension 04/01/2015 Migraines Obesity AYO (obstructive sleep apnea) unable to use cpap; recently received mouthpiece but not using Pneumonia x2 , had 2 pneumonia shots Restless legs syndrome Shoulder joint pain Spinal stenosis Varicose veins of both lower extremities Past Surgical History: Procedure Laterality Date ANTERIOR CERVICAL DISCECTOMY 02/25/2009 C5-6, C6-7 AR'BRITTNO SHOULD SAD, SLAP, RCR, RESECT DISTAL CLAVICLE, BICEPS TENODESIS Right 11/04/2015 ARTHROPLASTY HIP TOTAL Right 02/27/2018 Procedure: RIGHT TOTAL HIP ARTHROPLASTY; Surgeon: Gabo Sears MD; Location: [facility] Main OR; Service: Orthopedic BACK SURGERY 2008,2002 x 2 Low back, BLADDER SUSPENSION bladder tie-up BRONCHOSCOPY CARDIAC CATHETERIZATION Bilateral 09/21/2006 COLONOSCOPY FOOT SURGERY Right 03/08/2005 Third interdigital neuroma excision, fourth metatarsal osteotomy w/capsulotomy, fifth metatarsal head excision HARDWARE REMOVAL ANTERIOR CERVICAL 07/22/2014 C5, C6-7 HARDWARE REMOVAL LUMBAR 01/02/2009 L5-S1 w/ redo decompression laminectomy HYSTERECTOMY CARLOS MANUEL BSO Bladder suspension KNEE ARTHROSCOPY W/ LASER Left 2014 LAMINECTOMY DECOMP LUMBAR W/FUSION 4 OR MORE LVL N/A 11/08/2017 Procedure: HARDWARE REMOVAL L4-S1, DECOMPRESSION/FUSION L2-L4, PLIF, REINSTRUMENT L2-S1; Surgeon: Alejo Hummel MD; Location: [facility] Main OR; Service: Orthopedic LUMBAR LAMINECTOMY 10/11/2003 L5-S1 decompression w/interbody fusion bilateral and posterior fusion fixation LUNG BIOPSY Right ROTATOR CUFF REPAIR Left TONSILLECTOMY TOTAL KNEE ARTHROPLASTY Right VEIN SURGERY 2014 vein taken out in lower Left leg in [place] Dr. Mooney WISDOM TOOTH EXTRACTION Allergies Allergen Reactions Ibuprofen GI Intolerance Lyrica [Pregabalin] Other (See Comments) nightmares Duloxetine GI Intolerance Nausea Nsaids (Non-Steroidal Anti-Inflammatory Drug) GI Intolerance Metformin GI Intolerance Patient's Medications New Prescriptions No medications on file Previous Medications ALBUTEROL (PROVENTIL) 2.5 MG /3 ML (0.083 %) NEBULIZER SOLUTION Take 2.5 mg by nebulization daily as needed . AMLODIPINE (NORVASC) 5 MG TABLET Take 5 mg by mouth daily . ANORO ELLIPTA 62.5-25 MCG/ACTUATION DSDV CLONAZEPAM (KLONOPIN) 1 MG TABLET Take 1 mg by mouth 2 (two) times a day as needed . DULOXETINE (CYMBALTA) 60 MG CAPSULE Take 60 mg by mouth 2 (two) times a day . FUROSEMIDE (LASIX) 20 MG TABLET Take 20 mg by mouth daily . LISINOPRIL (PRINIVIL,ZESTRIL) 20 MG TABLET Take 20 mg by mouth every evening . MECLIZINE (ANTIVERT) 25 MG TABLET Take 1 (one) tablet (25 mg total) by mouth every 6 (six) hours for 5 days . MELATONIN 5 MG TAB Take 5 mg by mouth nightly . MIRTAZAPINE (REMERON RODRIGO-TAB) 15 MG DISINTEGRATING TABLET Dissolve 1 (one) tablet (15 mg total) on top of tongue nightly . MONTELUKAST (SINGULAIR) 10 MG TABLET Take 10 mg by mouth daily . NARCAN 4 MG/ACTUATION SPRY Administer 1 spray into one nostril for known or suspected opioid overdose. If patient worsens or does not respond, may repeat in 2-3 minutes. . OMEPRAZOLE (PRILOSEC) 40 MG CAPSULE Take 1 (one) capsule (40 mg total) by mouth daily. OXYCONTIN 20 MG 12 HR TABLET PREDNISONE (DELTASONE) 10 MG TABLET 60 mg daily on days 1 through 5, 40 mg on day 6, 20 mg on day 7, 20 mg on day 8, 10 mg on day 9, and 5 mg on day 10 . PROMETHAZINE (PHENERGAN) 25 MG TABLET Take 25 mg by mouth every 6 (six) hours as needed for nausea. RANITIDINE (ZANTAC) 300 MG TABLET Take 1 (one) tablet (300 mg total) by mouth nightly. ROPINIROLE (REQUIP) 2 MG TABLET Take 2 mg by mouth 3 (three) times a day Reasons: Extreme Discomfort in Calves when Sitting or Lying Down. SUMATRIPTAN (IMITREX) 100 MG TABLET Take 1 (one) tablet (100 mg total) by mouth as needed for migraine. TIOTROPIUM (SPIRIVA) [address] 18 mcg into inhaler and inhale daily . TIZANIDINE (ZANAFLEX) 4 MG TABLET TRAZODONE (DESYREL) 50 MG TABLET Take 50 mg by mouth daily . Modified Medications No medications on file Discontinued Medications BUDESONIDE-FORMOTEROL (SYMBICORT) 160-4.5 MCG/ACTUATION INHALER Inhale 2 puffs 2 (two) times a day. CELECOXIB (CELEBREX) 100 MG CAPSULE HYDROCHLOROTHIAZIDE (HYDRODIURIL) 25 MG TABLET Take 25 mg by mouth daily . IBUPROFEN (ADVIL,MOTRIN) 200 MG TABLET Take 200 mg by mouth every 6 (six) hours as needed for pain . IBUPROFEN (ADVIL,MOTRIN) 800 MG TABLET Take 1 (one) tablet (800 mg total) by mouth 2 (two) times a day. OXYCODONE-ACETAMINOPHEN (PERCOCET) 10-325 MG PER TABLET Take 2 (two) tablets by mouth 3 (three) times a day (Days supply per fill: 30) M51.36 Start: 08/07/20. SERTRALINE (ZOLOFT) 100 MG TABLET Take 100 mg by mouth daily . Family History Problem Relation Age of Onset Hypertension Father Heart disease Father Diabetes Father Breast cancer Mother ; cancer went to brain, liver and lungs Brain cancer Mother Liver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 fusion Arthrodesis status [facility]* Diagnosis Superficial vein thrombosis- Primary Acute venous embolism and thrombosis of other specified veins Displacement of thoracic intervertebral disc without myelopathy Pseudoclaudication syndrome Cauda equina syndrome without mention of neurogenic bladder S/P lumbar fusion Arthrodesis status Displacement of thoracic intervertebral disc without myelopathy Pseudoclaudication syndrome Cauda equina syndrome without mention of neurogenic bladder S/P lumbar fusion Arthrodesis status [facility]* Diagnosis PE (pulmonary thromboembolism) (HCC)- Primary Chronic pulmonary embolism [facility]* Diagnosis PE (pulmonary thromboembolism) (HCC) Chronic pulmonary embolism [facility]* Diagnosis S/P lumbar fusion- Primary Arthrodesis status Acute bilateral low back pain without sciatica [facility]* Diagnosis Fracture of vertebra due to osteoporosis, initial encounter ([facility])- Primary [facility]* Diagnosis PE (pulmonary thromboembolism) (HCC)- Primary Chronic pulmonary embolism [facility]* Diagnosis Ambulatory dysfunction- Primary Fall Unspecified fall Contusion of rib on right side, initial encounter Intractable pain Protrusion of cervical intervertebral disc C4-5 with stenosis Ambulatory dysfunction Back pain at L4-L5 level S/P lumbar fusion Arthrodesis status Pseudoclaudication syndrome Cauda equina syndrome without mention of neurogenic bladder Displacement of thoracic intervertebral disc without myelopathy Thoracic disc herniation T12-L1 Displacement of thoracic intervertebral disc without myelopathy Urge urinary incontinence Urge incontinence Status post cervical spinal fusion C4-T1 Arthrodesis status Diastolic dysfunction Unspecified heart disease Protrusion of cervical intervertebral disc C4-5 with stenosis Displacement of cervical intervertebral disc without myelopathy Rectocele History of falling Vertigo Dizziness and giddiness Acute blood loss as cause of postoperative anemia DDD (degenerative disc disease), lumbar Degeneration of lumbar or lumbosacral intervertebral disc Lumbar stenosis L1-2 with neurogenic claudication Status post lumbar spinal fusion T10-L2 08/18/23 Arthrodesis status Left hip pain Pain in joint, pelvic region and thigh Encounter for long-term use of opiate analgesic Encounter for long-term (current) use of other medications Difficulty walking Difficulty in walking Iron deficiency Disorders of iron metabolism History of cardiomyopathy Personal history of other diseases of circulatory system Restless legs syndrome Restless legs syndrome (RLS) Pre-diabetes Other abnormal glucose Lumbar pain Lumbago Brachial neuritis Brachial neuritis or radiculitis nos Balance disorder AYO (obstructive sleep apnea) Obstructive sleep apnea (adult) (pediatric) Acute left-sided low back pain with left-sided sciatica Status post lumbar spinal fusion [id number] 08/18/23 Arthrodesis status [facility] Diagnosis Tinnitus, unspecified laterality- Primary Chronic migraine without aura without status migrainosus, not intractable Restless legs Restless legs syndrome (RLS) Neuropathy Mononeuritis of unspecified site [facility] Abnormality of gait Debility Unspecified debility Pleuritic chest pain Painful respiration [facility] noteNo assessment information availableWMiddletown Hospital Work Phone: Evaluation note* Diagnosis Status post lumbar spinal fusion- Primary Arthrodesis status [facility]* Diagnosis Abnormality of gait- Primary Debility Unspecified debility Pleuritic chest pain Painful respiration [facility] Diagnosis Left shoulder pain, unspecified chronicity- Primary [facility] in this [facility]* Diagnosis Abnormality of gait- Primary Debility Unspecified debility Pleuritic chest pain Painful respiration [facility] Diagnosis Pain Generalized pain documented in this encounter [facility]* Diagnosis Varicose veins of both lower extremities Calf pain, unspecified laterality Varicose veins of lower extremities with complications, bilateral Pain in both lower extremities Varicose veins of lower extremities with complications, bilateral Pain in both lower extremities Lumbar stenosis with neurogenic claudication- Primary DDD (degenerative disc disease), lumbar Degeneration of lumbar or lumbosacral intervertebral disc Hip osteoarthritis- Primary Primary osteoarthritis of right hip AYO (obstructive sleep apnea) Obstructive sleep apnea (adult) (pediatric) Acute blood loss as cause of postoperative anemia Rectocele- Primary 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 Preoperative cardiovascular examination- Primary Pre-operative cardiovascular examination Diastolic dysfunction Unspecified heart disease Essential hypertension Unspecified essential hypertension History of cardiomyopathy Personal history of other diseases of circulatory system Class 1 obesity due to excess calories with serious comorbidity and body mass index (BMI) of 34.0 to 34.9 in adult AYO (obstructive sleep apnea) Obstructive sleep apnea (adult) (pediatric) Spinal stenosis of cervical region Spinal stenosis in cervical region Hypertensive heart disease without heart failure- Primary Unspecified hypertensive heart disease without heart failure Diastolic dysfunction Unspecified heart disease Class 1 obesity due to excess calories with serious comorbidity and body mass index (BMI) of 34.0 to 34.9 in adult Chronic groin pain, unspecified laterality- Primary Inguinal pain, unspecified laterality Depression, unspecified depression type Urge urinary incontinence- Primary Urge incontinence Rectocele Enterocele Hernia of unspecified site of abdominal cavity without mention of obstruction or gangrene Dilated cardiomyopathy (HCC)- Primary Other primary cardiomyopathies Primary hypertension Unspecified essential hypertension Class 1 obesity due to excess calories with serious comorbidity and body mass index (BMI) of 31.0 to 31.9 in adult Diastolic dysfunction Unspecified heart disease Sleep disorder breathing Other sleep disturbances [facility] Diagnosis Varicose veins of both lower extremities Calf pain, unspecified laterality Varicose veins of lower extremities with complications, bilateral Pain in both lower extremities Varicose veins of lower extremities with complications, bilateral Pain in both lower extremities Lumbar stenosis with neurogenic claudication- Primary DDD (degenerative disc disease), lumbar Degeneration of lumbar or lumbosacral intervertebral disc Hip osteoarthritis- Primary Primary osteoarthritis of right hip AYO (obstructive sleep apnea) Obstructive sleep apnea (adult) (pediatric) Acute blood loss as cause of postoperative anemia Rectocele- Primary 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 Preoperative cardiovascular examination- Primary Pre-operative cardiovascular examination Diastolic dysfunction Unspecified heart disease Essential hypertension Unspecified essential hypertension History of cardiomyopathy Personal history of other diseases of circulatory system Class 1 obesity due to excess calories with serious comorbidity and body mass index (BMI) of 34.0 to 34.9 in adult AYO (obstructive sleep apnea) Obstructive sleep apnea (adult) (pediatric) Spinal stenosis of cervical region Spinal stenosis in cervical region Hypertensive heart disease without heart failure- Primary Unspecified hypertensive heart disease without heart failure Diastolic dysfunction Unspecified heart disease Class 1 obesity due to excess calories with serious comorbidity and body mass index (BMI) of 34.0 to 34.9 in adult Chronic groin pain, unspecified laterality- Primary Inguinal pain, unspecified laterality Depression, unspecified depression type Urge urinary incontinence- Primary Urge incontinence Rectocele Enterocele Hernia of unspecified site of abdominal cavity without mention of obstruction or gangrene Dilated cardiomyopathy (HCC)- Primary Other primary cardiomyopathies Primary hypertension Unspecified essential hypertension Class 1 obesity due to excess calories with serious comorbidity and body mass index (BMI) of 31.0 to 31.9 in adult Diastolic dysfunction Unspecified heart disease Normal exam- Primary [facility]* Diagnosis Varicose veins of both lower extremities Calf pain, unspecified laterality Varicose veins of lower extremities with complications, bilateral Pain in both lower extremities Varicose veins of lower extremities with complications, bilateral Pain in both lower extremities Lumbar stenosis with neurogenic claudication- Primary DDD (degenerative disc disease), lumbar Degeneration of lumbar or lumbosacral intervertebral disc Hip osteoarthritis- Primary Primary osteoarthritis of right hip AYO (obstructive sleep apnea) Obstructive sleep apnea (adult) (pediatric) Acute blood loss as cause of postoperative anemia Rectocele- Primary 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 Preoperative cardiovascular examination- Primary Pre-operative cardiovascular examination Diastolic dysfunction Unspecified heart disease Essential hypertension Unspecified essential hypertension History of cardiomyopathy Personal history of other diseases of circulatory system Class 1 obesity due to excess calories with serious comorbidity and body mass index (BMI) of 34.0 to 34.9 in adult AYO (obstructive sleep apnea) Obstructive sleep apnea (adult) (pediatric) Spinal stenosis of cervical region Spinal stenosis in cervical region Hypertensive heart disease without heart failure- Primary Unspecified hypertensive heart disease without heart failure Diastolic dysfunction Unspecified heart disease Class 1 obesity due to excess calories with serious comorbidity and body mass index (BMI) of 34.0 to 34.9 in adult Chronic groin pain, unspecified laterality- Primary Inguinal pain, unspecified laterality Depression, unspecified depression type Urge urinary incontinence- Primary Urge incontinence Rectocele Enterocele Hernia of unspecified site of abdominal cavity without mention of obstruction or gangrene Dilated cardiomyopathy (HCC)- Primary Other primary cardiomyopathies Primary hypertension Unspecified essential hypertension Class 1 obesity due to excess calories with serious comorbidity and body mass index (BMI) of 31.0 to 31.9 in adult Diastolic dysfunction Unspecified heart disease Heart failure, unspecified HF chronicity, unspecified heart failure type (HCC)- Primary [facility]* Diagnosis Varicose veins of both lower extremities Calf pain, unspecified laterality Varicose veins of lower extremities with complications, bilateral Pain in both lower extremities Varicose veins of lower extremities with complications, bilateral Pain in both lower extremities Lumbar stenosis with neurogenic claudication- Primary DDD (degenerative disc disease), lumbar Degeneration of lumbar or lumbosacral intervertebral disc Hip osteoarthritis- Primary Primary osteoarthritis of right hip AYO (obstructive sleep apnea) Obstructive sleep apnea (adult) (pediatric) Acute blood loss as cause of postoperative anemia Rectocele- Primary 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 Preoperative cardiovascular examination- Primary Pre-operative cardiovascular examination Diastolic dysfunction Unspecified heart disease Essential hypertension Unspecified essential hypertension History of cardiomyopathy Personal history of other diseases of circulatory system Class 1 obesity due to excess calories with serious comorbidity and body mass index (BMI) of 34.0 to 34.9 in adult AYO (obstructive sleep apnea) Obstructive sleep apnea (adult) (pediatric) Spinal stenosis of cervical region Spinal stenosis in cervical region Hypertensive heart disease without heart failure- Primary Unspecified hypertensive heart disease without heart failure Diastolic dysfunction Unspecified heart disease Class 1 obesity due to excess calories with serious comorbidity and body mass index (BMI) of 34.0 to 34.9 in adult Chronic groin pain, unspecified laterality- Primary Inguinal pain, unspecified laterality Depression, unspecified depression type Urge urinary incontinence- Primary Urge incontinence Rectocele Enterocele Hernia of unspecified site of abdominal cavity without mention of obstruction or gangrene Dilated cardiomyopathy (HCC)- Primary Other primary cardiomyopathies Primary hypertension Unspecified essential hypertension Class 1 obesity due to excess calories with serious comorbidity and body mass index (BMI) of 31.0 to 31.9 in adult Diastolic dysfunction Unspecified heart disease Early satiety- Primary [facility]* Diagnosis Varicose veins of both lower extremities Calf pain, unspecified laterality Varicose veins of lower extremities with complications, bilateral Pain in both lower extremities Varicose veins of lower extremities with complications, bilateral Pain in both lower extremities Lumbar stenosis with neurogenic claudication- Primary DDD (degenerative disc disease), lumbar Degeneration of lumbar or lumbosacral intervertebral disc Hip osteoarthritis- Primary Primary osteoarthritis of right hip AYO (obstructive sleep apnea) Obstructive sleep apnea (adult) (pediatric) Acute blood loss as cause of postoperative anemia Rectocele- Primary 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 Preoperative cardiovascular examination- Primary Pre-operative cardiovascular examination Diastolic dysfunction Unspecified heart disease Essential hypertension Unspecified essential hypertension History of cardiomyopathy Personal history of other diseases of circulatory system Class 1 obesity due to excess calories with serious comorbidity and body mass index (BMI) of 34.0 to 34.9 in adult AYO (obstructive sleep apnea) Obstructive sleep apnea (adult) (pediatric) Spinal stenosis of cervical region Spinal stenosis in cervical region Hypertensive heart disease without heart failure- Primary Unspecified hypertensive heart disease without heart failure Diastolic dysfunction Unspecified heart disease Class 1 obesity due to excess calories with serious comorbidity and body mass index (BMI) of 34.0 to 34.9 in adult Chronic groin pain, unspecified laterality- Primary Inguinal pain, unspecified laterality Depression, unspecified depression type Urge urinary incontinence- Primary Urge incontinence Rectocele Enterocele Hernia of unspecified site of abdominal cavity without mention of obstruction or gangrene Dilated cardiomyopathy (HCC)- Primary Other primary cardiomyopathies Primary hypertension Unspecified essential hypertension Class 1 obesity due to excess calories with serious comorbidity and body mass index (BMI) of 31.0 to 31.9 in adult Diastolic dysfunction Unspecified heart disease Bilateral arm pain- Primary [facility]* Diagnosis Varicose veins of both lower extremities Calf pain, unspecified laterality Varicose veins of lower extremities with complications, bilateral Pain in both lower extremities Varicose veins of lower extremities with complications, bilateral Pain in both lower extremities Lumbar stenosis with neurogenic claudication- Primary DDD (degenerative disc disease), lumbar Degeneration of lumbar or lumbosacral intervertebral disc Hip osteoarthritis- Primary Primary osteoarthritis of right hip AYO (obstructive sleep apnea) Obstructive sleep apnea (adult) (pediatric) Acute blood loss as cause of postoperative anemia Rectocele- Primary 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 Preoperative cardiovascular examination- Primary Pre-operative cardiovascular examination Diastolic dysfunction Unspecified heart disease Essential hypertension Unspecified essential hypertension History of cardiomyopathy Personal history of other diseases of circulatory system Class 1 obesity due to excess calories with serious comorbidity and body mass index (BMI) of 34.0 to 34.9 in adult AYO (obstructive sleep apnea) Obstructive sleep apnea (adult) (pediatric) Spinal stenosis of cervical region Spinal stenosis in cervical region Hypertensive heart disease without heart failure- Primary Unspecified hypertensive heart disease without heart failure Diastolic dysfunction Unspecified heart disease Class 1 obesity due to excess calories with serious comorbidity and body mass index (BMI) of 34.0 to 34.9 in adult Chronic groin pain, unspecified laterality- Primary Inguinal pain, unspecified laterality Depression, unspecified depression type Urge urinary incontinence- Primary Urge incontinence Rectocele Enterocele Hernia of unspecified site of abdominal cavity without mention of obstruction or gangrene Dilated cardiomyopathy (HCC)- Primary Other primary cardiomyopathies Primary hypertension Unspecified essential hypertension Class 1 obesity due to excess calories with serious comorbidity and body mass index (BMI) of 31.0 to 31.9 in adult Diastolic dysfunction Unspecified heart disease Essential hypertension, malignant- Primary Heart failure, unspecified HF chronicity, unspecified heart failure type (HCC) [facility]* Diagnosis Varicose veins of both lower extremities Calf pain, unspecified laterality Varicose veins of lower extremities with complications, bilateral Pain in both lower extremities Varicose veins of lower extremities with complications, bilateral Pain in both lower extremities Lumbar stenosis with neurogenic claudication- Primary DDD (degenerative disc disease), lumbar Degeneration of lumbar or lumbosacral intervertebral disc Hip osteoarthritis- Primary Primary osteoarthritis of right hip AYO (obstructive sleep apnea) Obstructive sleep apnea (adult) (pediatric) Acute blood loss as cause of postoperative anemia Rectocele- Primary 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 Preoperative cardiovascular examination- Primary Pre-operative cardiovascular examination Diastolic dysfunction Unspecified heart disease Essential hypertension Unspecified essential hypertension History of cardiomyopathy Personal history of other diseases of circulatory system Class 1 obesity due to excess calories with serious comorbidity and body mass index (BMI) of 34.0 to 34.9 in adult AYO (obstructive sleep apnea) Obstructive sleep apnea (adult) (pediatric) Spinal stenosis of cervical region Spinal stenosis in cervical region Hypertensive heart disease without heart failure- Primary Unspecified hypertensive heart disease without heart failure Diastolic dysfunction Unspecified heart disease Class 1 obesity due to excess calories with serious comorbidity and body mass index (BMI) of 34.0 to 34.9 in adult Chronic groin pain, unspecified laterality- Primary Inguinal pain, unspecified laterality Depression, unspecified depression type Urge urinary incontinence- Primary Urge incontinence Rectocele Enterocele Hernia of unspecified site of abdominal cavity without mention of obstruction or gangrene Dilated cardiomyopathy (HCC)- Primary Other primary cardiomyopathies Primary hypertension Unspecified essential hypertension Class 1 obesity due to excess calories with serious comorbidity and body mass index (BMI) of 31.0 to 31.9 in adult Diastolic dysfunction Unspecified heart disease Nausea- Primary Nausea alone Early satiety Hypertension, unspecified type Restless leg syndrome Restless legs syndrome (RLS) [facility]* Diagnosis Varicose veins of both lower extremities Calf pain, unspecified laterality Varicose veins of lower extremities with complications, bilateral Pain in both lower extremities Varicose veins of lower extremities with complications, bilateral Pain in both lower extremities Lumbar stenosis with neurogenic claudication- Primary DDD (degenerative disc disease), lumbar Degeneration of lumbar or lumbosacral intervertebral disc Hip osteoarthritis- Primary Primary osteoarthritis of right hip AYO (obstructive sleep apnea) Obstructive sleep apnea (adult) (pediatric) Acute blood loss as cause of postoperative anemia Rectocele- Primary 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 Preoperative cardiovascular examination- Primary Pre-operative cardiovascular examination Diastolic dysfunction Unspecified heart disease Essential hypertension Unspecified essential hypertension History of cardiomyopathy Personal history of other diseases of circulatory system Class 1 obesity due to excess calories with serious comorbidity and body mass index (BMI) of 34.0 to 34.9 in adult AYO (obstructive sleep apnea) Obstructive sleep apnea (adult) (pediatric) Spinal stenosis of cervical region Spinal stenosis in cervical region Hypertensive heart disease without heart failure- Primary Unspecified hypertensive heart disease without heart failure Diastolic dysfunction Unspecified heart disease Class 1 obesity due to excess calories with serious comorbidity and body mass index (BMI) of 34.0 to 34.9 in adult Chronic groin pain, unspecified laterality- Primary Inguinal pain, unspecified laterality Depression, unspecified depression type Urge urinary incontinence- Primary Urge incontinence Rectocele Enterocele Hernia of unspecified site of abdominal cavity without mention of obstruction or gangrene Dilated cardiomyopathy (HCC)- Primary Other primary cardiomyopathies Primary hypertension Unspecified essential hypertension Class 1 obesity due to excess calories with serious comorbidity and body mass index (BMI) of 31.0 to 31.9 in adult Diastolic dysfunction Unspecified heart disease Essential hypertension, malignant- Primary Heart failure, unspecified HF chronicity, unspecified heart failure type (HCC) Nausea- Primary Nausea alone Heart failure, unspecified HF chronicity, unspecified heart failure type (HCC) Nausea Nausea alone [facility]* Diagnosis Varicose veins of both lower extremities Calf pain, unspecified laterality Varicose veins of lower extremities with complications, bilateral Pain in both lower extremities Varicose veins of lower extremities with complications, bilateral Pain in both lower extremities Lumbar stenosis with neurogenic claudication- Primary DDD (degenerative disc disease), lumbar Degeneration of lumbar or lumbosacral intervertebral disc Hip osteoarthritis- Primary Primary osteoarthritis of right hip AYO (obstructive sleep apnea) Obstructive sleep apnea (adult) (pediatric) Acute blood loss as cause of postoperative anemia Rectocele- Primary 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 Preoperative cardiovascular examination- Primary Pre-operative cardiovascular examination Diastolic dysfunction Unspecified heart disease Essential hypertension Unspecified essential hypertension History of cardiomyopathy Personal history of other diseases of circulatory system Class 1 obesity due to excess calories with serious comorbidity and body mass index (BMI) of 34.0 to 34.9 in adult AYO (obstructive sleep apnea) Obstructive sleep apnea (adult) (pediatric) Spinal stenosis of cervical region Spinal stenosis in cervical region Hypertensive heart disease without heart failure- Primary Unspecified hypertensive heart disease without heart failure Diastolic dysfunction Unspecified heart disease Class 1 obesity due to excess calories with serious comorbidity and body mass index (BMI) of 34.0 to 34.9 in adult Chronic groin pain, unspecified laterality- Primary Inguinal pain, unspecified laterality Depression, unspecified depression type Urge urinary incontinence- Primary Urge incontinence Rectocele Enterocele Hernia of unspecified site of abdominal cavity without mention of obstruction or gangrene Dilated cardiomyopathy (HCC)- Primary Other primary cardiomyopathies Primary hypertension Unspecified essential hypertension Class 1 obesity due to excess calories with serious comorbidity and body mass index (BMI) of 31.0 to 31.9 in adult Diastolic dysfunction Unspecified heart disease Nausea Nausea alone [facility]* Diagnosis Varicose veins of both lower extremities Calf pain, unspecified laterality Varicose veins of lower extremities with complications, bilateral Pain in both lower extremities Varicose veins of lower extremities with complications, bilateral Pain in both lower extremities Lumbar stenosis with neurogenic claudication- Primary DDD (degenerative disc disease), lumbar Degeneration of lumbar or lumbosacral intervertebral disc Hip osteoarthritis- Primary Primary osteoarthritis of right hip AYO (obstructive sleep apnea) Obstructive sleep apnea (adult) (pediatric) Acute blood loss as cause of postoperative anemia Rectocele- Primary 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 Preoperative cardiovascular examination- Primary Pre-operative cardiovascular examination Diastolic dysfunction Unspecified heart disease Essential hypertension Unspecified essential hypertension History of cardiomyopathy Personal history of other diseases of circulatory system Class 1 obesity due to excess calories with serious comorbidity and body mass index (BMI) of 34.0 to 34.9 in adult AYO (obstructive sleep apnea) Obstructive sleep apnea (adult) (pediatric) Spinal stenosis of cervical region Spinal stenosis in cervical region Hypertensive heart disease without heart failure- Primary Unspecified hypertensive heart disease without heart failure Diastolic dysfunction Unspecified heart disease Class 1 obesity due to excess calories with serious comorbidity and body mass index (BMI) of 34.0 to 34.9 in adult Chronic groin pain, unspecified laterality- Primary Inguinal pain, unspecified laterality Depression, unspecified depression type Urge urinary incontinence- Primary Urge incontinence Rectocele Enterocele Hernia of unspecified site of abdominal cavity without mention of obstruction or gangrene Dilated cardiomyopathy (HCC)- Primary Other primary cardiomyopathies Primary hypertension Unspecified essential hypertension Class 1 obesity due to excess calories with serious comorbidity and body mass index (BMI) of 31.0 to 31.9 in adult Diastolic dysfunction Unspecified heart disease Nausea- Primary Nausea alone Encounter for screening colonoscopy Screening for colon cancer Special screening for malignant neoplasms, colon [facility] Diagnosis Varicose veins of both lower extremities Calf pain, unspecified laterality Varicose veins of lower extremities with complications, bilateral Pain in both lower extremities Varicose veins of lower extremities with complications, bilateral Pain in both lower extremities Lumbar stenosis with neurogenic claudication- Primary DDD (degenerative disc disease), lumbar Degeneration of lumbar or lumbosacral intervertebral disc Hip osteoarthritis- Primary Primary osteoarthritis of right hip AYO (obstructive sleep apnea) Obstructive sleep apnea (adult) (pediatric) Acute blood loss as cause of postoperative anemia Rectocele- Primary 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 Preoperative cardiovascular examination- Primary Pre-operative cardiovascular examination Diastolic dysfunction Unspecified heart disease Essential hypertension Unspecified essential hypertension History of cardiomyopathy Personal history of other diseases of circulatory system Class 1 obesity due to excess calories with serious comorbidity and body mass index (BMI) of 34.0 to 34.9 in adult AYO (obstructive sleep apnea) Obstructive sleep apnea (adult) (pediatric) Spinal stenosis of cervical region Spinal stenosis in cervical region Hypertensive heart disease without heart failure- Primary Unspecified hypertensive heart disease without heart failure Diastolic dysfunction Unspecified heart disease Class 1 obesity due to excess calories with serious comorbidity and body mass index (BMI) of 34.0 to 34.9 in adult Chronic groin pain, unspecified laterality- Primary Inguinal pain, unspecified laterality Depression, unspecified depression type Urge urinary incontinence- Primary Urge incontinence Rectocele Enterocele Hernia of unspecified site of abdominal cavity without mention of obstruction or gangrene Dilated cardiomyopathy (HCC)- Primary Other primary cardiomyopathies Primary hypertension Unspecified essential hypertension Class 1 obesity due to excess calories with serious comorbidity and body mass index (BMI) of 31.0 to 31.9 in adult Diastolic dysfunction Unspecified heart disease Arthritis- Primary Unspecified arthropathy, site unspecified [facility] Diagnosis Varicose veins of both lower extremities Calf pain, unspecified laterality Varicose veins of lower extremities with complications, bilateral Pain in both lower extremities Varicose veins of lower extremities with complications, bilateral Pain in both lower extremities Lumbar stenosis with neurogenic claudication- Primary DDD (degenerative disc disease), lumbar Degeneration of lumbar or lumbosacral intervertebral disc Hip osteoarthritis- Primary Primary osteoarthritis of right hip AYO (obstructive sleep apnea) Obstructive sleep apnea (adult) (pediatric) Acute blood loss as cause of postoperative anemia Rectocele- Primary 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 Preoperative cardiovascular examination- Primary Pre-operative cardiovascular examination Diastolic dysfunction Unspecified heart disease Essential hypertension Unspecified essential hypertension History of cardiomyopathy Personal history of other diseases of circulatory system Class 1 obesity due to excess calories with serious comorbidity and body mass index (BMI) of 34.0 to 34.9 in adult AYO (obstructive sleep apnea) Obstructive sleep apnea (adult) (pediatric) Spinal stenosis of cervical region Spinal stenosis in cervical region Hypertensive heart disease without heart failure- Primary Unspecified hypertensive heart disease without heart failure Diastolic dysfunction Unspecified heart disease Class 1 obesity due to excess calories with serious comorbidity and body mass index (BMI) of 34.0 to 34.9 in adult Chronic groin pain, unspecified laterality- Primary Inguinal pain, unspecified laterality Depression, unspecified depression type Urge urinary incontinence- Primary Urge incontinence Rectocele Enterocele Hernia of unspecified site of abdominal cavity without mention of obstruction or gangrene Dilated cardiomyopathy (HCC)- Primary Other primary cardiomyopathies Primary hypertension Unspecified essential hypertension Class 1 obesity due to excess calories with serious comorbidity and body mass index (BMI) of 31.0 to 31.9 in adult Diastolic dysfunction Unspecified heart disease Screening and evaluation for female sterilization- Primary documented in this encounter [facility] Discharge instructions* Attachments The following attachments cannot be sent through Care Everywhere. * COPD Exacerbation Plan ([place]) [facility] Attachments The following attachments cannot be sent through Care Everywhere. * Headache ([place]) * Trigger Finger ([place]) [facility]* Attachments The following attachments cannot be sent through Care Everywhere. * Blood Pressure Test: Home ([place]) [facility]* Visit Details Visit Type -SN HH [place] t of Care Discipline -Nursing Home Problems Problem Start Date Status Goals Interventions Assess and Instruct Home Visit Disciplines: Nursing Home 08/26/2023 Active 1 goal linked to scheduled/documented intervention 5 goal interventions scheduled/documented in this visit Medication Management Disciplines: Nursing Home 08/26/2023 Active 1 goal linked to scheduled/documented intervention 1 goal intervention scheduled/documented in this visit Pain Management Disciplines: Nursing Home 08/26/2023 Active 1 goal linked to scheduled/documented intervention 1 goal intervention scheduled/documented in this visit Wound Care and/or Skin Problems Disciplines: Nursing Home 08/26/2023 Active 1 goal linked to scheduled/documented intervention 1 goal intervention scheduled/documented in this visit Respiratory Disciplines: Nursing Home 08/26/2023 Active 1 goal linked to scheduled/documented intervention 1 goal intervention scheduled/documented in this visit Goals Goal Associated Problem Outcome Goal Met? Visit Notes Home Care Plan Assess and Instruct Home Visit Partially Met No Medications Medication Management Partially Met No Pain Pain Management Partially Met No Wound/Incision Wound Care and/or Skin Problems Partially Met No Respiratory Function Respiratory Partially Met No Interventions Intervention Associated Problem/Goal Status Variance Visit Notes Falls Problem:Assess and Instruct Home Visit Goal:Home Care Plan Completed Clinician taught: patient 4-10 Patient IS at risk for falls (a score of 6 or greater is a predictor of future falls) and clinician instructed: proper footwear, improved lighting, remove clutter and throw rugs, safe cord/tubing management (O2, IV, Electrical, Michael), non-slip mats in tubs/showers, handrails/grab bar placement, assistive device usage, keep frequently used items in reach and emergency response system and/or keep phone on you Patient/caregiver was able to demonstrate 100% via teachback Safety Problem:Assess and Instruct Home Visit Goal:Home Care Plan Completed No safety concerns noted Plan for Next Visit Problem:Assess and Instruct Home Visit Goal:Home Care Plan Completed Follow up education for next visit: wound care, medications Skilled intervention at next visit: wound care, CP assess/observe Discharge Planning Problem:Assess and Instruct Home Visit Goal:Home Care Plan Completed Home Visit DC Planning: Spoke with patient about DC planning. Assessed for unsteady gait/poor balance and dyspnea at rest or with exertion Anticipate DC: On time Patient and/or caregiver response to discharge planning education: verbalized 100% understanding HH Telemedicine Problem:Assess and Instruct Home Visit Goal:Home Care Plan Completed Instruct Medication Management Problem:Medication Management Goal:Medications Completed Home Visit Med Education: Medication list reconciled. Medication profile and in-home medication list updated with appropriate changes. Discrepanices noted during home visit: yes, including (see note) Doctor updated Instructed patient on dosing, purpose, and side effects. Medication education completed today on all medication(s). Patient/caregiver is able to teach back 100% of instruction. Assess Pain Characteristics and Current Pain Regimen and Instruct Methods of Pain Relief Problem:Pain Management Goal:Pain Completed Wound/Incision Care Problem:Wound Care and/or Skin Problems Goal:Wound/Incision Completed Wound is non-healing. Educated patient and caregiver on hand hygiene and infection control techniques, dressing removal, cleansing wound, applying dressing, signs/symptoms of infection and when to call or report concerns to home health or provider. patient and caregiver able to verbalize teach back of hand hygiene and when to call or report concerns to home health or provider. caregiver able to return demonstration of hand hygiene and infection control techniques. caregiver continuing to require wound education on dressing removal, cleansing wound, applying dressing and signs/symptoms of infection. Instruct Impaired Respiratory Function Problem:Respiratory Goal:Respiratory Function Completed Patient reports: has had productive cough since surgery but unable to expell sputum Clinician taught: patient Clinician instructed on: educated on coughing/deep breathing or IS excercises, drink plently of water to help thin secretions Patient/caregiver is able to teach back 100% of instruction. [facility] Visit Details Visit Type -SN HH [place] t of Care Discipline -Nursing Home Problems Problem Start Date Status Goals Interventions Assess and Instruct Home Visit Disciplines: Nursing Home 08/26/2023 Active 1 goal linked to scheduled/documented intervention 5 goal interventions scheduled/documented in this visit Medication Management Disciplines: Nursing Home 08/26/2023 Active 1 goal linked to scheduled/documented intervention 1 goal intervention scheduled/documented in this visit Pain Management Disciplines: Nursing Home 08/26/2023 Active 1 goal linked to scheduled/documented intervention 1 goal intervention scheduled/documented in this visit Wound Care and/or Skin Problems Disciplines: Nursing Home 08/26/2023 Active 1 goal linked to scheduled/documented intervention 1 goal intervention scheduled/documented in this visit Respiratory Disciplines: Nursing Home 08/26/2023 Active 1 goal linked to scheduled/documented intervention 1 goal intervention scheduled/documented in this visit Goals Goal Associated Problem Outcome Goal Met? Visit Notes Home Care Plan Assess and Instruct Home Visit Partially Met No Medications Medication Management Partially Met No Pain Pain Management Partially Met No Wound/Incision Wound Care and/or Skin Problems Partially Met No Respiratory Function Respiratory Partially Met No Interventions Intervention Associated Problem/Goal Status Variance Visit Notes Falls Problem:Assess and Instruct Home Visit Goal:Home Care Plan Completed Clinician taught: patient 4-10 Patient IS at risk for falls (a score of 6 or greater is a predictor of future falls) and clinician instructed: proper footwear, improved lighting, remove clutter and throw rugs, safe cord/tubing management (O2, IV, Electrical, Michael), non-slip mats in tubs/showers, handrails/grab bar placement, assistive device usage, keep frequently used items in reach and emergency response system and/or keep phone on you Patient/caregiver was able to demonstrate 100% via teachback Safety Problem:Assess and Instruct Home Visit Goal:Home Care Plan Completed No safety concerns noted Plan for Next Visit Problem:Assess and Instruct Home Visit Goal:Home Care Plan Completed Follow up education for next visit: wound care, medications Skilled intervention at next visit: wound care, CP assess/observe Discharge Planning Problem:Assess and Instruct Home Visit Goal:Home Care Plan Completed Home Visit DC Planning: Spoke with patient about DC planning. Assessed for unsteady gait/poor balance and dyspnea at rest or with exertion Anticipate DC: On time Patient and/or caregiver response to discharge planning education: verbalized 100% understanding HH Telemedicine Problem:Assess and Instruct Home Visit Goal:Home Care Plan Completed Instruct Medication Management Problem:Medication Management Goal:Medications Completed Home Visit Med Education: Medication list reconciled. Medication profile and in-home medication list updated with appropriate changes. Discrepanices noted during home visit: yes, including (see note) Doctor updated Instructed patient on dosing, purpose, and side effects. Medication education completed today on all medication(s). Patient/caregiver is able to teach back 100% of instruction. Assess Pain Characteristics and Current Pain Regimen and Instruct Methods of Pain Relief Problem:Pain Management Goal:Pain Completed Wound/Incision Care Problem:Wound Care and/or Skin Problems Goal:Wound/Incision Completed Wound is non-healing. Educated patient and caregiver on hand hygiene and infection control techniques, dressing removal, cleansing wound, applying dressing, signs/symptoms of infection and when to call or report concerns to home health or provider. patient and caregiver able to verbalize teach back of hand hygiene and when to call or report concerns to home health or provider. caregiver able to return demonstration of hand hygiene and infection control techniques. caregiver continuing to require wound education on dressing removal, cleansing wound, applying dressing and signs/symptoms of infection. Instruct Impaired Respiratory Function Problem:Respiratory Goal:Respiratory Function Completed Patient reports: has had productive cough since surgery but unable to expell sputum Clinician taught: patient Clinician instructed on: educated on coughing/deep breathing or IS excercises, drink plently of water to help thin secretions Patient/caregiver is able to teach back 100% of instruction. [facility] Visit Details Visit Type -SN HH Routine Vi sit Discipline -Nursing Home Problems Problem Start Date Status Goals Interventions Assess and Instruct Home Visit Disciplines: Nursing Home 08/26/2023 Active 1 goal linked to scheduled/documented intervention 3 goal interventions scheduled/documented in this visit Medication Management Disciplines: Nursing Home 08/26/2023 Active 1 goal linked to scheduled/documented intervention 1 goal intervention scheduled/documented in this visit Pain Management Disciplines: Nursing Home 08/26/2023 Active 1 goal linked to scheduled/documented intervention 1 goal intervention scheduled/documented in this visit Wound Care and/or Skin Problems Disciplines: Nursing Home 08/26/2023 Active 1 goal linked to scheduled/documented intervention 1 goal intervention scheduled/documented in this visit Goals Goal Associated Problem Outcome Goal Met? Visit Notes Home Care Plan Assess and Instruct Home Visit No Medications Medication Management No Pain Pain Management No Wound/Incision Wound Care and/or Skin Problems No Interventions Intervention Associated Problem/Goal Status Variance Visit Notes Falls Problem:Assess and Instruct Home Visit Goal:Home Care Plan Scheduled Safety Problem:Assess and Instruct Home Visit Goal:Home Care Plan Scheduled Plan for Next Visit Problem:Assess and Instruct Home Visit Goal:Home Care Plan Scheduled Instruct Medication Management Problem:Medication Management Goal:Medications Scheduled Assess Pain Characteristics and Current Pain Regimen and Instruct Methods of Pain Relief Problem:Pain Management Goal:Pain Scheduled Wound/Incision Care Problem:Wound Care and/or Skin Problems Goal:Wound/Incision Completed 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 Instructed on s/s of wound separation, redness, drainage to call SN. [facility] Visit Details Visit Type -PT Initial Evalu ation Discipline -Physical Therapy Problems Problem Start Date Status Goals Interventions Wound Care and/or Skin Problems Disciplines: Physical Therapy 08/29/2023 Active 1 goal linked to scheduled/documented intervention 1 goal intervention scheduled/documented in this visit Assess and Instruct Home Visit Disciplines: Physical Therapy 08/29/2023 Active 3 goals linked to scheduled/documented interventions 5 goal interventions scheduled/documented in this visit Home Exercise Program Disciplines: Physical Therapy 08/29/2023 Active 1 goal linked to scheduled/documented intervention 1 goal intervention scheduled/documented in this visit Disease-Specific Rehabilitation Disciplines: Physical Therapy 08/29/2023 Active 1 goal linked to scheduled/documented intervention 1 goal intervention scheduled/documented in this visit Mobility Disciplines: Physical Therapy 08/29/2023 Active 1 goal linked to scheduled/documented intervention 1 goal intervention scheduled/documented in this visit Goals Goal Associated Problem Outcome Goal Met? Visit Notes Wound/Incision Wound Care and/or Skin Problems No Pain Assess and Instruct Home Visit No Medications Assess and Instruct Home Visit No Home Care Plan Assess and Instruct Home Visit No Home Exercise Program Home Exercise Program No Post-Surgical Disease-Specific Rehabilitation No Mobility Mobility No Interventions Intervention Associated Problem/Goal Status Variance Visit Notes Wound/Incision Monitoring Problem:Wound Care and/or Skin Problems Goal:Wound/Incision Completed Educated patient on hand hygiene and infection control techniques, signs/symptoms of infection and when to call or report concerns to home health or provider. patient able to verbalize teach back of hand hygiene, signs/symptoms of infection and when to call or report concerns to home health or provider. Pain Management Problem:Assess and Instruct Home Visit Goal:Pain Completed Patient reports: back pain Clinician taught: patient Clinician instructed on: benefits of general activity on pain levels Patient/caregiver is able to teach back 100% of instruction. Instruct Medication Management Problem:Assess and Instruct Home Visit Goal:Medications Completed Home Visit Med Education: Medication list reconciled. Medication profile and in-home medication list updated with appropriate changes. Discrepanices noted during home visit: Patient is missing one med. Nursing is working on finding. Nurse present during visit. Falls Problem:Assess and Instruct Home Visit Goal:Home Care Plan Completed Clinician taught: patient 4-10 Patient IS at risk for falls (a score of 6 or greater is a predictor of future falls) and clinician instructed: proper footwear, improved lighting, remove clutter and throw rugs, non-slip mats in tubs/showers, handrails/grab bar placement, assistive device usage, keep frequently used items in reach and emergency response system and/or keep phone on you. Patient/caregiver was able to demonstrate 100% via teachback Safety Problem:Assess and Instruct Home Visit Goal:Home Care Plan Completed Assessed patient vulnerability and home safety risks: yes Equipment reviewed walkr Patient at risk for harm or abuse no Plan for Next Visit Problem:Assess and Instruct Home Visit Goal:Home Care Plan Completed Follow up education for next visit: HEP and posture education. Spine precautions No BLT. Skilled intervention at next visit: therex, transfer training, gait training, HEP (no back exercises) Home Exercise Program Problem:Home Exercise Program Goal:Home Exercise Program Completed with variance Limitations in activity tolerance Instruct Post-op Care Problem:Disease-Spec [facility] Rehabilitation Goal:Post-Surgical Completed Clinician taught: patient Clinician instructed on: Instructed patient in spine precautions post op, prevention of blood clots, PE, Edema, infection and constipation. Patient/caregiver is able to teach back 100% of instruction. Instruct Mobility Problem:Mobility Goal:Mobility Completed Clinician taught: patient Clinician instructed on: Instructed patient in safe and efficient technique for gait/transfers. Patient/caregiver is able to teach back 75% of instruction. [facility] Visit Details Visit Type -MOTOR BOSS Routine Discipline -Nursing Home Problems Problem Start Date Status Goals Interventions Assess and Instruct Home Visit Disciplines: Nursing Home 08/26/2023 Active 1 goal linked to scheduled/documented intervention 4 goal interventions scheduled/documented in this visit Medication Management Disciplines: Nursing Home 08/26/2023 Active 1 goal linked to scheduled/documented intervention 1 goal intervention scheduled/documented in this visit Pain Management Disciplines: Nursing Home 08/26/2023 Active 1 goal linked to scheduled/documented intervention 1 goal intervention scheduled/documented in this visit Wound Care and/or Skin Problems Disciplines: Nursing Home 08/26/2023 Active 1 goal linked to scheduled/documented intervention 1 goal intervention scheduled/documented in this visit Respiratory Disciplines: Nursing Home 08/26/2023 Active 1 goal linked to scheduled/documented intervention 1 goal intervention scheduled/documented in this visit Goals Goal Associated Problem Outcome Goal Met? Visit Notes Home Care Plan Assess and Instruct Home Visit No Medications Medication Management No Pain Pain Management No Wound/Incision Wound Care and/or Skin Problems No Respiratory Function Respiratory No Interventions Intervention Associated Problem/Goal Status Variance Visit Notes Falls Problem:Assess and Instruct Home Visit Goal:Home Care Plan Completed Clinician taught: patient 4-10 Patient IS at risk for falls (a score of 6 or greater is a predictor of future falls) and clinician instructed: proper footwear, improved lighting, assistive device usage and keep frequently used items in reach. Patient/caregiver was able to demonstrate 100% via teachback Safety Problem:Assess and Instruct Home Visit Goal:Home Care Plan Completed Assessed patient vulnerability and home safety risks: yes Equipment reviewed none Patient at risk for harm or abuse no Family members involved in safety plan for Level 2 or 3 /son Plan for Next Visit Problem:Assess and Instruct Home Visit Goal:Home Care Plan Completed Follow up education for next visit: CP assess Skilled intervention at next visit: CP assess, assess wound on back. Telemedicine Problem:Assess and Instruct Home Visit Goal:Home Care Plan Completed Instruct Medication Management Problem:Medication Management Goal:Medications Completed Home Visit Med Education: Medication list reconciled. Medication profile and in-home medication list updated with appropriate changes. Discrepanices noted during home visit: none Instructed patient on dosing, purpose, and side effects. Medication education completed today on current medication(s). Patient/caregiver is able to teach back 100% of instruction. Assess Pain Characteristics and Current Pain Regimen and Instruct Methods of Pain Relief Problem:Pain Management Goal:Pain Completed Wound/Incision Care Problem:Wound Care and/or Skin Problems Goal:Wound/Incision Completed Wound is stable. Educated patient on hand hygiene and infection control techniques, signs/symptoms of infection and when to call or report concerns to home health or provider. patient able to verbalize teach back of hand hygiene, signs/symptoms of infection and when to call or report concerns to home health or provider. patient able to return demonstration of hand hygiene and infection control techniques. patient independent with wound education. Instruct Impaired Respiratory Function Problem:Respiratory Goal:Respiratory Function Completed Patient reports: no issues at this time Clinician taught: patient Clinician instructed on: deep breathing exercises to help relieve sob. Patient/caregiver is able to teach back 100% of instruction. [facility] Visit Details Visit Type -FIRE [employer]INE Routine Visi t Discipline -Physical Therapy Problems Problem Start Date Status Goals Interventions Wound Care and/or Skin Problems Disciplines: Physical Therapy 08/29/2023 Active 1 goal linked to scheduled/documented intervention 1 goal intervention scheduled/documented in this visit Assess and Instruct Home Visit Disciplines: Physical Therapy 08/29/2023 Active 3 goals linked to scheduled/documented interventions 5 goal interventions scheduled/documented in this visit Home Exercise Program Disciplines: Physical Therapy 08/29/2023 Active 1 goal linked to scheduled/documented intervention 1 goal intervention scheduled/documented in this visit Disease-Specific Rehabilitation Disciplines: Physical Therapy 08/29/2023 Active 1 goal linked to scheduled/documented intervention 1 goal intervention scheduled/documented in this visit Mobility Disciplines: Physical Therapy 08/29/2023 Active 1 goal linked to scheduled/documented intervention 1 goal intervention scheduled/documented in this visit Goals Goal Associated Problem Outcome Goal Met? Visit Notes Wound/Incision Wound Care and/or Skin Problems No Pain Assess and Instruct Home Visit No Medications Assess and Instruct Home Visit No Home Care Plan Assess and Instruct Home Visit No Home Exercise Program Home Exercise Program No Post-Surgical Disease-Specific Rehabilitation No Mobility Mobility No Interventions Intervention Associated Problem/Goal Status Variance Visit Notes Wound/Incision Monitoring Problem:Wound Care and/or Skin Problems Goal:Wound/Incision Completed Educated patient on hand hygiene and infection control techniques, signs/symptoms of infection and when to call or report concerns to home health or provider. patient able to verbalize teach back of hand hygiene, signs/symptoms of infection and when to call or report concerns to home health or provider. Pain Management Problem:Assess and Instruct Home Visit Goal:Pain Completed pt. reports: see pain scale Clinician taught: patient Clinician instructed on: Instructed pt. in pain relieving positioning and posture. Instruct Patient on medications and alternative strategies to relieve pain. Patient/caregiver is able to teach back 100% of instruction. Instruct Medication Management Problem:Assess and Instruct Home Visit Goal:Medications Completed Home Visit Med Education: Medication list reconciled. Medication profile and in-home medication list updated with appropriate changes. Discrepanices noted during home visit: none Patient/caregiver is able to teach back 100% of instruction Safety Problem:Assess and Instruct Home Visit Goal:Home Care Plan Completed Assessed patient vulnerability and home safety risks: pt. safe at home Equipment reviewed: walker Patient at risk for harm or abuse No Family members involved in safety plan. Plan for Next Visit Problem:Assess and Instruct Home Visit Goal:Home Care Plan Completed Follow up education for next visit: Cont. mobility training, exercise tech., and safety awareness. Skilled intervention at next visit: there. ex, mobility training, transfer training. Falls Problem:Assess and Instruct Home Visit Goal:Home Care Plan Scheduled Home Exercise Program Problem:Home Exercise Program Goal:Home Exercise Program Completed Patient reports: pt. reports compliance with HEP. Clinician taught: patient Clinician instructed on: Instructed in proper tech. and posture with ex. and activity. Patient/caregiver is able to teach back 100% of instruction. Instruct Post-op Care Problem:Disease-Specif ic Rehabilitation Goal:Post-Surgical Completed Patient reports: No new issues Clinician taught: patient Clinician instructed on: Instructed in importance of moving to prevent, DVT, pneumonia, pressure sores and to increase strength and endurance. Patient/caregiver is able to teach back 100% of instruction. Reviewed BLT precations. pt. demonstrates good understanding. Instruct Mobility Problem:Mobility Goal:Mobility Completed Patient reports: Getting around home well. Clinician taught: patient Clinician instructed on: Instructed pt. in upright posture and proper foot placement during gait to improve safety and postural awareness. pt. amb. 120' x1 with rolator walker. Patient/caregiver is able to teach back 100% of instruction. TUG= 31.39 sec. pt. completes abdominal squeezes x10 with 3 sec. hold. [facility] Visit Details Visit Type -SN HH O[facility] Star t of Care Discipline -Nursing Home Problems Problem Start Date Status Goals Interventions Assess and Instruct Home Visit Disciplines: Nursing Home 08/26/2023 Active 1 goal linked to scheduled/documented intervention 5 goal interventions scheduled/documented in this visit Medication Management Disciplines: Nursing Home 08/26/2023 Active 1 goal linked to scheduled/documented intervention 1 goal intervention scheduled/documented in this visit Pain Management Disciplines: Nursing Home 08/26/2023 Active 1 goal linked to scheduled/documented intervention 1 goal intervention scheduled/documented in this visit Wound Care and/or Skin Problems Disciplines: Nursing Home 08/26/2023 Active 1 goal linked to scheduled/documented intervention 1 goal intervention scheduled/documented in this visit Respiratory Disciplines: Nursing Home 08/26/2023 Active 1 goal linked to scheduled/documented intervention 1 goal intervention scheduled/documented in this visit Goals Goal Associated Problem Outcome Goal Met? Visit Notes Home Care Plan Assess and Instruct Home Visit Partially Met No Medications Medication Management Partially Met No Pain Pain Management Partially Met No Wound/Incision Wound Care and/or Skin Problems Partially Met No Respiratory Function Respiratory Partially Met No Interventions Intervention Associated Problem/Goal Status Variance Visit Notes Falls Problem:Assess and Instruct Home Visit Goal:Home Care Plan Completed Clinician taught: patient 4-10 Patient IS at risk for falls (a score of 6 or greater is a predictor of future falls) and clinician instructed: proper footwear, improved lighting, remove clutter and throw rugs, safe cord/tubing management (O2, IV, Electrical, Michael), non-slip mats in tubs/showers, handrails/grab bar placement, assistive device usage, keep frequently used items in reach and emergency response system and/or keep phone on you Patient/caregiver was able to demonstrate 100% via teachback Safety Problem:Assess and Instruct Home Visit Goal:Home Care Plan Completed No safety concerns noted Plan for Next Visit Problem:Assess and Instruct Home Visit Goal:Home Care Plan Completed Follow up education for next visit: wound care, medications Skilled intervention at next visit: wound care, CP assess/observe Discharge Planning Problem:Assess and Instruct Home Visit Goal:Home Care Plan Completed Home Visit DC Planning: Spoke with patient about DC planning. Assessed for unsteady gait/poor balance and dyspnea at rest or with exertion Anticipate DC: On time Patient and/or caregiver response to discharge planning education: verbalized 100% understanding HH Telemedicine Problem:Assess and Instruct Home Visit Goal:Home Care Plan Completed Instruct Medication Management Problem:Medication Management Goal:Medications Completed Home Visit Med Education: Medication list reconciled. Medication profile and in-home medication list updated with appropriate changes. Discrepanices noted during home visit: yes, including (see note) Doctor updated Instructed patient on dosing, purpose, and side effects. Medication education completed today on all medication(s). Patient/caregiver is able to teach back 100% of instruction. Assess Pain Characteristics and Current Pain Regimen and Instruct Methods of Pain Relief Problem:Pain Management Goal:Pain Completed Wound/Incision Care Problem:Wound Care and/or Skin Problems Goal:Wound/Incision Completed Wound is non-healing. Educated patient and caregiver on hand hygiene and infection control techniques, dressing removal, cleansing wound, applying dressing, signs/symptoms of infection and when to call or report concerns to home health or provider. patient and caregiver able to verbalize teach back of hand hygiene and when to call or report concerns to home health or provider. caregiver able to return demonstration of hand hygiene and infection control techniques. caregiver continuing to require wound education on dressing removal, cleansing wound, applying dressing and signs/symptoms of infection. Instruct Impaired Respiratory Function Problem:Respiratory Goal:Respiratory Function Completed Patient reports: has had productive cough since surgery but unable to expell sputum Clinician taught: patient Clinician instructed on: educated on coughing/deep breathing or IS excercises, drink plently of water to help thin secretions Patient/caregiver is able to teach back 100% of instruction. [facility] Visit Details Visit Type -MOTOR BOSS Routine Discipline -Nursing Home Problems Problem Start Date Status Goals Interventions Assess and Instruct Home Visit Disciplines: Nursing Home 08/26/2023 Active 1 goal linked to scheduled/documented intervention 4 goal interventions scheduled/documented in this visit Medication Management Disciplines: Nursing Home 08/26/2023 Active 1 goal linked to scheduled/documented intervention 1 goal intervention scheduled/documented in this visit Pain Management Disciplines: Nursing Home 08/26/2023 Active 1 goal linked to scheduled/documented intervention 1 goal intervention scheduled/documented in this visit Wound Care and/or Skin Problems Disciplines: Nursing Home 08/26/2023 Active 1 goal linked to scheduled/documented intervention 1 goal intervention scheduled/documented in this visit Goals Goal Associated Problem Outcome Goal Met? Visit Notes Home Care Plan Assess and Instruct Home Visit No Medications Medication Management No Pain Pain Management No Wound/Incision Wound Care and/or Skin Problems No Interventions Intervention Associated Problem/Goal Status Variance Visit Notes Falls Problem:Assess and Instruct Home Visit Goal:Home Care Plan Completed Clinician taught: patient 4-10 Patient IS at risk for falls (a score of 6 or greater is a predictor of future falls) and clinician instructed: assistive device usage, keep frequently used items in reach and emergency response system and/or keep phone on you. Patient/caregiver was able to demonstrate 100% via teachback Safety Problem:Assess and Instruct Home Visit Goal:Home Care Plan Completed Assessed patient vulnerability and home safety risks: yes Equipment reviewed none Patient at risk for harm or abuse no Family members involved in safety plan for Level 2 or 3 spouse Plan for Next Visit Problem:Assess and Instruct Home Visit Goal:Home Care Plan Completed Follow up education for next visit: assess pain levels. Skilled intervention at next visit: assess pain levels. Telemedicine Problem:Assess and Instruct Home Visit Goal:Home Care Plan Completed Instruct Medication Management Problem:Medication Management Goal:Medications Completed Home Visit Med Education: Medication list reconciled. Medication profile and in-home medication list updated with appropriate changes. Discrepanices noted during home visit: none Instructed patient on dosing, purpose, and side effects. Medication education completed today on current medication(s). Patient/caregiver is able to teach back 100% of instruction. Assess Pain Characteristics and Current Pain Regimen and Instruct Methods of Pain Relief Problem:Pain Management Goal:Pain Completed Wound/Incision Care Problem:Wound Care and/or Skin Problems Goal:Wound/Incision Completed Wound is stable. Educated patient on hand hygiene and infection control techniques. patient able to verbalize teach back of hand hygiene. patient able to return demonstration of hand hygiene and infection control techniques. patient independent with wound education. [facility] Visit Details Visit Type -OT Initial Eval/ Discipline DC Discipline -Occupational Therapy Problems Problem Start Date Status Goals Interventions One Time Occupational Therapy Visit Disciplines: Occupational Therapy 09/06/2023 Resolved on 09/06/2023 1 goal linked to scheduled/documented intervention Goals Goal Associated Problem Outcome Goal Met? Visit Notes One-Time Visit One Time Occupational Therapy Visit Completed Yes Assess risk for falls. Assess risk for abuse and harming self or others. Reconcile medications. Assess patient and/or caregiver's ability to manage medications and make appropriate referrals as needed. Instruct and assess patient safety in the home. Instruction at today's visit: Safety with her shower tfs and kitchen tasks while adhering to her back precautions Patient was seen for one-time visit. Patient declines further home care visits.. Discharge home Occupational Therapy. [facility] Visit Details Visit Type -[employer] Routine Visi t Discipline -Physical Therapy Problems Problem Start Date Status Goals Interventions Wound Care and/or Skin Problems Disciplines: Physical Therapy 08/29/2023 Active 1 goal linked to scheduled/documented intervention 1 goal intervention scheduled/documented in this visit Assess and Instruct Home Visit Disciplines: Physical Therapy 08/29/2023 Active 3 goals linked to scheduled/documented interventions 5 goal interventions scheduled/documented in this visit Home Exercise Program Disciplines: Physical Therapy 08/29/2023 Active 1 goal linked to scheduled/documented intervention 1 goal intervention scheduled/documented in this visit Disease-Specific Rehabilitation Disciplines: Physical Therapy 08/29/2023 Active 1 goal linked to scheduled/documented intervention 1 goal intervention scheduled/documented in this visit Mobility Disciplines: Physical Therapy 08/29/2023 Active 1 goal linked to scheduled/documented intervention 1 goal intervention scheduled/documented in this visit Goals Goal Associated Problem Outcome Goal Met? Visit Notes Wound/Incision Wound Care and/or Skin Problems No Pain Assess and Instruct Home Visit No Medications Assess and Instruct Home Visit No Home Care Plan Assess and Instruct Home Visit No Home Exercise Program Home Exercise Program No Post-Surgical Disease-Specific Rehabilitation No Mobility Mobility No Interventions Intervention Associated Problem/Goal Status Variance Visit Notes Wound/Incision Monitoring Problem:Wound Care and/or Skin Problems Goal:Wound/Incision Completed Educated patient on hand hygiene and infection control techniques, signs/symptoms of infection and when to call or report concerns to home health or provider. patient able to verbalize teach back of hand hygiene, signs/symptoms of infection and when to call or report concerns to home health or provider. Pain Management Problem:Assess and Instruct Home Visit Goal:Pain Completed pt. reports: see pain scale Clinician taught: patient Clinician instructed on: Instructed pt. in pain relieving positioning and posture. Instruct Patient on medications and alternative strategies to relieve pain. Patient/caregiver is able to teach back 100% of instruction. Instruct Medication Management Problem:Assess and Instruct Home Visit Goal:Medications Completed Home Visit Med Education: Medication list reconciled. Medication profile and in-home medication list updated with appropriate changes. Discrepanices noted during home visit: none Patient/caregiver is able to teach back 100% of instruction Safety Problem:Assess and Instruct Home Visit Goal:Home Care Plan Completed Assessed patient vulnerability and home safety risks: pt. safe at home Equipment reviewed: walker Patient at risk for harm or abuse No Family members involved in safety plan. Plan for Next Visit Problem:Assess and Instruct Home Visit Goal:Home Care Plan Completed Follow up education for next visit: Cont. mobility training, exercise tech., and safety awareness. Skilled intervention at next visit: there. ex, mobility training, transfer training. Falls Problem:Assess and Instruct Home Visit Goal:Home Care Plan Scheduled Home Exercise Program Problem:Home Exercise Program Goal:Home Exercise Program Completed Patient reports: pt. reports compliance with HEP. Clinician taught: patient Clinician instructed on: Instructed in proper tech. and posture with ex. and activity. Patient/caregiver is able to teach back 100% of instruction. Instruct Post-op Care Problem:Disease-Specif ic Rehabilitation Goal:Post-Surgical Completed Patient reports: No new issues Clinician taught: patient Clinician instructed on: Instructed in importance of moving to prevent, DVT, pneumonia, pressure sores and to increase strength and endurance. Patient/caregiver is able to teach back 100% of instruction. Instruct Mobility Problem:Mobility Goal:Mobility Completed Patient reports: Getting around home well. Clinician taught: patient Clinician instructed on: Instructed pt. in upright posture and proper foot placement during gait to improve safety and postural awareness. pt. amb. 150' x1 with rolator walker. Increased heel strike noted. Patient/caregiver is able to teach back 100% of instruction. TUG= Hold for increased gait. pt. completes abdominal squeezes x10 with 3 sec. hold. [facility] Visit Details Visit Type -SN HH Routine Vi sit Discipline -Nursing Home Problems Problem Start Date Status Goals Interventions Assess and Instruct Home Visit Disciplines: Nursing Home 08/26/2023 Active 1 goal linked to scheduled/documented intervention 3 goal interventions scheduled/documented in this visit Medication Management Disciplines: Nursing Home 08/26/2023 Active 1 goal linked to scheduled/documented intervention 1 goal intervention scheduled/documented in this visit Pain Management Disciplines: Nursing Home 08/26/2023 Active 1 goal linked to scheduled/documented intervention 1 goal intervention scheduled/documented in this visit Wound Care and/or Skin Problems Disciplines: Nursing Home 08/26/2023 Active 2 goals linked to scheduled/documented interventions 2 goal interventions scheduled/documented in this visit Respiratory Disciplines: Nursing Home 08/26/2023 Active 1 goal linked to scheduled/documented intervention 1 goal intervention scheduled/documented in this visit Psychosocial Health Disciplines: Nursing Home 09/05/2023 Active 1 goal linked to scheduled/documented intervention 1 goal intervention scheduled/documented in this visit Goals Goal Associated Problem Outcome Goal Met? Visit Notes Home Care Plan Assess and Instruct Home Visit No Medications Medication Management No Pain Pain Management No Wound/Incision Wound Care and/or Skin Problems No Skin Breakdown Wound Care and/or Skin Problems No Respiratory Function Respiratory No Depression Psychosocial Health No Interventions Intervention Associated Problem/Goal Status Variance Visit Notes Falls Problem:Assess and Instruct Home Visit Goal:Home Care Plan Completed falll precautions Safety Problem:Assess and Instruct Home Visit Goal:Home Care Plan Completed no s/s of abuse noted Plan for Next Visit Problem:Assess and Instruct Home Visit Goal:Home Care Plan Completed prepare for discharge from Instruct Medication Management Problem:Medication Management Goal:Medications Completed reviewed medications Assess Pain Characteristics and Current Pain Regimen and Instruct Methods of Pain Relief Problem:Pain Management Goal:Pain Completed Wound/Incision Care Problem:Wound Care and/or Skin Problems Goal:Wound/Incision Completed DIANE Instruct High Risk for Skin Breakdown Problem:Wound Care and/or Skin Problems Goal:Skin Breakdown Completed done this vs Instruct Impaired Respiratory Function Problem:Respiratory Goal:Respiratory Function Completed done this vs Instruct Depression Problem:Psychosocial Health Goal:Depression Completed done this vs [facility] Visit Details Visit Type -FIRE [employer] Routine Visi t Discipline -Physical Therapy Problems Problem Start Date Status Goals Interventions Wound Care and/or Skin Problems Disciplines: Physical Therapy 08/29/2023 Active 1 goal linked to scheduled/documented intervention 1 goal intervention scheduled/documented in this visit Assess and Instruct Home Visit Disciplines: Physical Therapy 08/29/2023 Active 3 goals linked to scheduled/documented interventions 5 goal interventions scheduled/documented in this visit Home Exercise Program Disciplines: Physical Therapy 08/29/2023 Active 1 goal linked to scheduled/documented intervention 1 goal intervention scheduled/documented in this visit Disease-Specific Rehabilitation Disciplines: Physical Therapy 08/29/2023 Active 1 goal linked to scheduled/documented intervention 1 goal intervention scheduled/documented in this visit Mobility Disciplines: Physical Therapy 08/29/2023 Active 1 goal linked to scheduled/documented intervention 1 goal intervention scheduled/documented in this visit Goals Goal Associated Problem Outcome Goal Met? Visit Notes Wound/Incision Wound Care and/or Skin Problems No Pain Assess and Instruct Home Visit No Medications Assess and Instruct Home Visit No Home Care Plan Assess and Instruct Home Visit No Home Exercise Program Home Exercise Program No Post-Surgical Disease-Specific Rehabilitation No Mobility Mobility No Interventions Intervention Associated Problem/Goal Status Variance Visit Notes Wound/Incision Monitoring Problem:Wound Care and/or Skin Problems Goal:Wound/Incision Completed : Wound is progressing. Educated patient on hand hygiene and infection control techniques. patient able to verbalize teach back of hand hygiene and signs/symptoms of infection. patient able to return demonstration of hand hygiene and infection control techniques. patient independent with wound education Pain Management Problem:Assess and Instruct Home Visit Goal:Pain Completed Visit Notes: pt. reports: see pain scale Clinician taught: patient Clinician instructed on: Instructed pt. in pain relieving positioning and posture. Instruct Patient on medications and alternative strategies to relieve pain. Patient/caregiver is able to teach back 100% of instruction. Instruct Medication Management Problem:Assess and Instruct Home Visit Goal:Medications Completed Home Visit Med Education: Performed Medication list reconciled. Medication profile and in-home medication list updated with appropriate changes. Discrepanices noted during home visit: none Instructed patient on dosing, purpose, and side effects. Medication education completed today on current medication(s). Patient/caregiver is able to teach back 100% of instruction. Falls Problem:Assess and Instruct Home Visit Goal:Home Care Plan Completed Pt educated on safety issues and how to avoid falls, Pt demonstrated overall understanding. Safety Problem:Assess and Instruct Home Visit Goal:Home Care Plan Completed Assessed patient vulnerability and home safety risks: pt. safe at home Equipment reviewed: walker Patient at risk for harm or abuse No Family members involved in safety plan Plan for Next Visit Problem:Assess and Instruct Home Visit Goal:Home Care Plan Completed Follow up education for next visit: Cont. mobility training, exercise tech., and safety awareness. Skilled intervention at next visit: there. ex, mobility training, transfer training. Home Exercise Program Problem:Home Exercise Program Goal:Home Exercise Program Completed Patient reports: pt. reports compliance with HEP. Clinician taught: patient Clinician instructed on: Instructed in proper tech. and posture with ex. and activity. Patient/caregiver is able to teach back 100% of instruction. Instruct Post-op Care Problem:Disease-Specif ic Rehabilitation Goal:Post-Surgical Completed Patient reports: No new issues Clinician taught: patient Clinician instructed on: Instructed in importance of moving to prevent, DVT, pneumonia, pressure sores and to increase strength and endurance. Patient/caregiver is able to teach back 100% of instruction. Instruct Mobility Problem:Mobility Goal:Mobility Completed 20.43 TUG Pt was able to walk 110 feet with step to gait due to back tightness that worsened throughout activity. Pt used the WW safly for duration of treatment. [facility] Visit Details Visit Type -SN HH Non-OASIS/ Discipline DC Discipline -Nursing Home Problems Problem Start Date Status Goals Interventions Assess and Instruct Home Visit Disciplines: Nursing Home 08/26/2023 Active 1 goal linked to scheduled/documented intervention 4 goal interventions scheduled/documented in this visit Medication Management Disciplines: Nursing Home 08/26/2023 Active 1 goal linked to scheduled/documented intervention 1 goal intervention scheduled/documented in this visit Pain Management Disciplines: Nursing Home 08/26/2023 Active 1 goal linked to scheduled/documented intervention 1 goal intervention scheduled/documented in this visit Wound Care and/or Skin Problems Disciplines: Nursing Home 08/26/2023 Active 1 goal linked to scheduled/documented intervention 1 problem intervention scheduled/documented in this visit 1 goal intervention scheduled/documented in this visit Respiratory Disciplines: Nursing Home 08/26/2023 Active 1 goal linked to scheduled/documented intervention 1 goal intervention scheduled/documented in this visit Psychosocial Health Disciplines: Nursing Home 09/05/2023 Active 1 goal linked to scheduled/documented intervention 1 goal intervention scheduled/documented in this visit Goals Goal Associated Problem Outcome Goal Met? Visit Notes Home Care Plan Assess and Instruct Home Visit No Medications Medication Management No Pain Pain Management No Skin Breakdown Wound Care and/or Skin Problems No Respiratory Function Respiratory No Depression Psychosocial Health No Interventions Intervention Associated Problem/Goal Status Variance Visit Notes Falls Problem:Assess and Instruct Home Visit Goal:Home Care Plan Completed reviewed fall preventions Safety Problem:Assess and Instruct Home Visit Goal:Home Care Plan Completed no s/s of abuse noted Plan for Next Visit Problem:Assess and Instruct Home Visit Goal:Home Care Plan Completed discharged from this vs Discharge Planning Problem:Assess and Instruct Home Visit Goal:Home Care Plan Completed discharged from this vs Instruct Medication Management Problem:Medication Management Goal:Medications Completed reviewed medications Assess Pain Characteristics and Current Pain Regimen and Instruct Methods of Pain Relief Problem:Pain Management Goal:Pain Completed Instruct High Risk for Skin Breakdown Problem:Wound Care and/or Skin Problems Goal:Skin Breakdown Completed reviewed this vs Wound/Incision Monitoring Problem:Wound Care and/or Skin Problems Completed well approximated, no redness, no drainage Instruct Impaired Respiratory Function Problem:Respiratory Goal:Respiratory Function Completed lungs clear, no s/s of shortness of breath Instruct Depression Problem:Psychosocial Health Goal:Depression Completed done this vs [facility] Visit Details Visit Type -[employer] Routine Visi t Discipline -Physical Therapy Problems Problem Start Date Status Goals Interventions Wound Care and/or Skin Problems Disciplines: Physical Therapy 08/29/2023 Active 1 goal linked to scheduled/documented intervention 1 goal intervention scheduled/documented in this visit Assess and Instruct Home Visit Disciplines: Physical Therapy 08/29/2023 Active 3 goals linked to scheduled/documented interventions 5 goal interventions scheduled/documented in this visit Home Exercise Program Disciplines: Physical Therapy 08/29/2023 Active 1 goal linked to scheduled/documented intervention 1 goal intervention scheduled/documented in this visit Disease-Specific Rehabilitation Disciplines: Physical Therapy 08/29/2023 Active 1 goal linked to scheduled/documented intervention 1 goal intervention scheduled/documented in this visit Mobility Disciplines: Physical Therapy 08/29/2023 Active 1 goal linked to scheduled/documented intervention 1 goal intervention scheduled/documented in this visit Goals Goal Associated Problem Outcome Goal Met? Visit Notes Wound/Incision Wound Care and/or Skin Problems No Pain Assess and Instruct Home Visit No Medications Assess and Instruct Home Visit No Home Care Plan Assess and Instruct Home Visit No Home Exercise Program Home Exercise Program No Post-Surgical Disease-Specific Rehabilitation No Mobility Mobility No Interventions Intervention Associated Problem/Goal Status Variance Visit Notes Wound/Incision Monitoring Problem:Wound Care and/or Skin Problems Goal:Wound/Incision Completed Educated patient on hand hygiene and infection control techniques, signs/symptoms of infection and when to call or report concerns to home health or provider. patient able to verbalize teach back of hand hygiene, signs/symptoms of infection and when to call or report concerns to home health or provider. Pain Management Problem:Assess and Instruct Home Visit Goal:Pain Completed pt. reports: see pain scale Clinician taught: patient Clinician instructed on: Instructed pt. in pain relieving positioning and posture. Instruct Patient on medications and alternative strategies to relieve pain. Patient/caregiver is able to teach back 100% of instruction. Instruct Medication Management Problem:Assess and Instruct Home Visit Goal:Medications Completed Home Visit Med Education: Medication list reconciled. Medication profile and in-home medication list updated with appropriate changes. Discrepanices noted during home visit: none Patient/caregiver is able to teach back 100% of instruction Safety Problem:Assess and Instruct Home Visit Goal:Home Care Plan Completed Assessed patient vulnerability and home safety risks: pt. safe at home Equipment reviewed: walker Patient at risk for harm or abuse No Family members involved in safety plan. Plan for Next Visit Problem:Assess and Instruct Home Visit Goal:Home Care Plan Completed Follow up education for next visit: Cont. mobility training, exercise tech., and safety awareness. Skilled intervention at next visit: there. ex, mobility training, transfer training. Falls Problem:Assess and Instruct Home Visit Goal:Home Care Plan Scheduled Home Exercise Program Problem:Home Exercise Program Goal:Home Exercise Program Completed pt. reports she has not been doing her ex. the last 2 days because of increased pain levels. Instruct Post-op Care Problem:Disease-Specif ic Rehabilitation Goal:Post-Surgical Completed Patient reports: No new issues Clinician taught: patient Clinician instructed on: Instructed in importance of moving to prevent, DVT, pneumonia, pressure sores and to increase strength and endurance. Patient/caregiver is able to teach back 100% of instruction. Instruct Mobility Problem:Mobility Goal:Mobility Completed Patient reports: Getting around home well. Clinician taught: patient Clinician instructed on: Instructed pt. in upright posture and proper foot placement during gait to improve safety and postural awareness. pt. amb. 150' x1 with rolator walker. Increased heel strike noted. Patient/caregiver is able to teach back 100% of instruction. TUG= Hold for increased gait. pt. completes abdominal squeezes x10 with 3 sec. hold. [facility] Visit Details Visit Type -[employer] Routine Visi t Discipline -Physical Therapy Problems Problem Start Date Status Goals Interventions Wound Care and/or Skin Problems Disciplines: Physical Therapy 08/29/2023 Active 1 goal linked to scheduled/documented intervention 1 goal intervention scheduled/documented in this visit Assess and Instruct Home Visit Disciplines: Physical Therapy 08/29/2023 Active 3 goals linked to scheduled/documented interventions 5 goal interventions scheduled/documented in this visit Home Exercise Program Disciplines: Physical Therapy 08/29/2023 Active 1 goal linked to scheduled/documented intervention 1 goal intervention scheduled/documented in this visit Disease-Specific Rehabilitation Disciplines: Physical Therapy 08/29/2023 Active 1 goal linked to scheduled/documented intervention 1 goal intervention scheduled/documented in this visit Mobility Disciplines: Physical Therapy 08/29/2023 Active 1 goal linked to scheduled/documented intervention 1 goal intervention scheduled/documented in this visit Goals Goal Associated Problem Outcome Goal Met? Visit Notes Wound/Incision Wound Care and/or Skin Problems No Pain Assess and Instruct Home Visit No Medications Assess and Instruct Home Visit No Home Care Plan Assess and Instruct Home Visit No Home Exercise Program Home Exercise Program No Post-Surgical Disease-Specific Rehabilitation No Mobility Mobility No Interventions Intervention Associated Problem/Goal Status Variance Visit Notes Wound/Incision Monitoring Problem:Wound Care and/or Skin Problems Goal:Wound/Incision Completed : Wound is progressing. Educated patient on hand hygiene and infection control techniques. patient able to verbalize teach back of hand hygiene and signs/symptoms of infection. patient able to return demonstration of hand hygiene and infection control techniques. patient independent with wound education Pain Management Problem:Assess and Instruct Home Visit Goal:Pain Completed Visit Notes: pt. reports: see pain scale Clinician taught: patient Clinician instructed on: Instructed pt. in pain relieving positioning and posture. Instruct Patient on medications and alternative strategies to relieve pain. Patient/caregiver is able to teach back 100% of instruction. Instruct Medication Management Problem:Assess and Instruct Home Visit Goal:Medications Completed Home Visit Med Education: Performed Medication list reconciled. Medication profile and in-home medication list updated with appropriate changes. Discrepanices noted during home visit: none Instructed patient on dosing, purpose, and side effects. Medication education completed today on current medication(s). Patient/caregiver is able to teach back 100% of instruction. Falls Problem:Assess and Instruct Home Visit Goal:Home Care Plan Completed Pt educated on safety issues and how to avoid falls, Pt demonstrated overall understanding. Safety Problem:Assess and Instruct Home Visit Goal:Home Care Plan Completed Assessed patient vulnerability and home safety risks: pt. safe at home Equipment reviewed: walker Patient at risk for harm or abuse No Family members involved in safety plan Plan for Next Visit Problem:Assess and Instruct Home Visit Goal:Home Care Plan Completed Follow up education for next visit: Cont. mobility training, exercise tech., and safety awareness. Skilled intervention at next visit: there. ex, mobility training, transfer training. Home Exercise Program Problem:Home Exercise Program Goal:Home Exercise Program Completed Patient reports: pt. reports compliance with HEP. Clinician taught: patient Clinician instructed on: Instructed in proper tech. and posture with ex. and activity. Patient/caregiver is able to teach back 100% of instruction. Instruct Post-op Care Problem:Disease-Specif ic Rehabilitation Goal:Post-Surgical Completed Patient reports: No new issues Clinician taught: patient Clinician instructed on: Instructed in importance of moving to prevent, DVT, pneumonia, pressure sores and to increase strength and endurance. Patient/caregiver is able to teach back 100% of instruction. Instruct Mobility Problem:Mobility Goal:Mobility Completed 20.43 TUG Pt was able to walk 110 feet with step to gait due to back tightness that worsened throughout activity. Pt used the WW safly for duration of treatment. [facility] Visit Details Visit Type -[employer] Routine Visi t Discipline -Physical Therapy Problems Problem Start Date Status Goals Interventions Wound Care and/or Skin Problems Disciplines: Physical Therapy 08/29/2023 Active 1 goal linked to scheduled/documented intervention 1 goal intervention scheduled/documented in this visit Assess and Instruct Home Visit Disciplines: Physical Therapy 08/29/2023 Active 3 goals linked to scheduled/documented interventions 5 goal interventions scheduled/documented in this visit Home Exercise Program Disciplines: Physical Therapy 08/29/2023 Active 1 goal linked to scheduled/documented intervention 1 goal intervention scheduled/documented in this visit Disease-Specific Rehabilitation Disciplines: Physical Therapy 08/29/2023 Active 1 goal linked to scheduled/documented intervention 1 goal intervention scheduled/documented in this visit Mobility Disciplines: Physical Therapy 08/29/2023 Active 1 goal linked to scheduled/documented intervention 1 goal intervention scheduled/documented in this visit Goals Goal Associated Problem Outcome Goal Met? Visit Notes Wound/Incision Wound Care and/or Skin Problems No Pain Assess and Instruct Home Visit No Medications Assess and Instruct Home Visit No Home Care Plan Assess and Instruct Home Visit No Home Exercise Program Home Exercise Program No Post-Surgical Disease-Specific Rehabilitation No Mobility Mobility No Interventions Intervention Associated Problem/Goal Status Variance Visit Notes Wound/Incision Monitoring Problem:Wound Care and/or Skin Problems Goal:Wound/Incision Completed Educated patient on hand hygiene and infection control techniques, signs/symptoms of infection and when to call or report concerns to home health or provider. patient able to verbalize teach back of hand hygiene, signs/symptoms of infection and when to call or report concerns to home health or provider. Pain Management Problem:Assess and Instruct Home Visit Goal:Pain Completed pt. reports: see pain scale Clinician taught: patient Clinician instructed on: Instructed pt. in pain relieving positioning and posture. Instruct Patient on medications and alternative strategies to relieve pain. Patient/caregiver is able to teach back 100% of instruction. Instruct Medication Management Problem:Assess and Instruct Home Visit Goal:Medications Completed Home Visit Med Education: Medication list reconciled. Medication profile and in-home medication list updated with appropriate changes. Discrepanices noted during home visit: none Patient/caregiver is able to teach back 100% of instruction Safety Problem:Assess and Instruct Home Visit Goal:Home Care Plan Completed Assessed patient vulnerability and home safety risks: pt. safe at home Equipment reviewed: walker Patient at risk for harm or abuse No Family members involved in safety plan. Plan for Next Visit Problem:Assess and Instruct Home Visit Goal:Home Care Plan Completed Follow up education for next visit: Cont. mobility training, exercise tech., and safety awareness. Skilled intervention at next visit: there. ex, mobility training, transfer training. Falls Problem:Assess and Instruct Home Visit Goal:Home Care Plan Scheduled Home Exercise Program Problem:Home Exercise Program Goal:Home Exercise Program Completed Patient reports: pt. reports compliance with HEP. Clinician taught: patient Clinician instructed on: Instructed in proper tech. and posture with ex. and activity. Patient/caregiver is able to teach back 100% of instruction. Instruct Post-op Care Problem:Disease-Specif ic Rehabilitation Goal:Post-Surgical Completed Patient reports: No new issues Clinician taught: patient Clinician instructed on: Instructed in importance of moving to prevent, DVT, pneumonia, pressure sores and to increase strength and endurance. Patient/caregiver is able to teach back 100% of instruction. Reviewed BLT precations. pt. demonstrates good understanding. Instruct Mobility Problem:Mobility Goal:Mobility Completed Patient reports: Getting around home well. Clinician taught: patient Clinician instructed on: Instructed pt. in upright posture and proper foot placement during gait to improve safety and postural awareness. pt. amb. 120' x1 with rolator walker. Patient/caregiver is able to teach back 100% of instruction. TUG= 31.39 sec. pt. completes abdominal squeezes x10 with 3 sec. hold. [facility] Visit Details Visit Type -[employer] Routine Visi t Discipline -Physical Therapy Problems Problem Start Date Status Goals Interventions Wound Care and/or Skin Problems Disciplines: Physical Therapy 08/29/2023 Active 1 goal linked to scheduled/documented intervention 1 goal intervention scheduled/documented in this visit Assess and Instruct Home Visit Disciplines: Physical Therapy 08/29/2023 Active 3 goals linked to scheduled/documented interventions 5 goal interventions scheduled/documented in this visit Home Exercise Program Disciplines: Physical Therapy 08/29/2023 Active 1 goal linked to scheduled/documented intervention 1 goal intervention scheduled/documented in this visit Disease-Specific Rehabilitation Disciplines: Physical Therapy 08/29/2023 Active 1 goal linked to scheduled/documented intervention 1 goal intervention scheduled/documented in this visit Mobility Disciplines: Physical Therapy 08/29/2023 Active 1 goal linked to scheduled/documented intervention 1 goal intervention scheduled/documented in this visit Goals Goal Associated Problem Outcome Goal Met? Visit Notes Wound/Incision Wound Care and/or Skin Problems No Pain Assess and Instruct Home Visit No Medications Assess and Instruct Home Visit No Home Care Plan Assess and Instruct Home Visit No Home Exercise Program Home Exercise Program No Post-Surgical Disease-Specific Rehabilitation No Mobility Mobility No Interventions Intervention Associated Problem/Goal Status Variance Visit Notes Wound/Incision Monitoring Problem:Wound Care and/or Skin Problems Goal:Wound/Incision Completed Educated patient on hand hygiene and infection control techniques, signs/symptoms of infection and when to call or report concerns to home health or provider. patient able to verbalize teach back of hand hygiene, signs/symptoms of infection and when to call or report concerns to home health or provider. Pain Management Problem:Assess and Instruct Home Visit Goal:Pain Completed pt. reports: see pain scale Clinician taught: patient Clinician instructed on: Instructed pt. in pain relieving positioning and posture. Instruct Patient on medications and alternative strategies to relieve pain. Patient/caregiver is able to teach back 100% of instruction. Instruct Medication Management Problem:Assess and Instruct Home Visit Goal:Medications Completed Home Visit Med Education: Medication list reconciled. Medication profile and in-home medication list updated with appropriate changes. Discrepanices noted during home visit: none Patient/caregiver is able to teach back 100% of instruction Safety Problem:Assess and Instruct Home Visit Goal:Home Care Plan Completed Assessed patient vulnerability and home safety risks: pt. safe at home Equipment reviewed: walker Patient at risk for harm or abuse No Family members involved in safety plan. Plan for Next Visit Problem:Assess and Instruct Home Visit Goal:Home Care Plan Completed Follow up education for next visit: Cont. mobility training, exercise tech., and safety awareness. Skilled intervention at next visit: there. ex, mobility training, transfer training. Falls Problem:Assess and Instruct Home Visit Goal:Home Care Plan Scheduled Home Exercise Program Problem:Home Exercise Program Goal:Home Exercise Program Completed Patient reports: pt. reports compliance with HEP. Clinician taught: patient Clinician instructed on: Instructed in proper tech. and posture with ex. and activity. Patient/caregiver is able to teach back 100% of instruction. Instruct Post-op Care Problem:Disease-Specif ic Rehabilitation Goal:Post-Surgical Completed Patient reports: No new issues Clinician taught: patient Clinician instructed on: Instructed in importance of moving to prevent, DVT, pneumonia, pressure sores and to increase strength and endurance. Patient/caregiver is able to teach back 100% of instruction. Instruct Mobility Problem:Mobility Goal:Mobility Completed Patient reports: Getting around home well. Clinician taught: patient Clinician instructed on: Instructed pt. in upright posture and proper foot placement during gait to improve safety and postural awareness. pt. amb. 150' x1 with rolator walker. Increased heel strike noted. Patient/caregiver is able to teach back 100% of instruction. TUG= Hold for increased gait. pt. completes abdominal squeezes x10 with 3 sec. hold. [facility] Visit Details Visit Type -PT Non-OASIS/Dis cipl Discharge Discipline -Physical Therapy Problems Problem Start Date Status Goals Interventions Wound Care and/or Skin Problems Disciplines: Physical Therapy 08/29/2023 Active 1 goal linked to scheduled/documented intervention 1 goal intervention scheduled/documented in this visit Assess and Instruct Home Visit Disciplines: Physical Therapy 08/29/2023 Active 2 goals linked to scheduled/documented interventions 4 goal interventions scheduled/documented in this visit Goals Goal Associated Problem Outcome Goal Met? Visit Notes Wound/Incision Wound Care and/or Skin Problems No Medications Assess and Instruct Home Visit No Home Care Plan Assess and Instruct Home Visit No Interventions Intervention Associated Problem/Goal Status Variance Visit Notes Wound/Incision Monitoring Problem:Wound Care and/or Skin Problems Goal:Wound/Incision Scheduled Instruct Medication Management Problem:Assess and Instruct Home Visit Goal:Medications Scheduled Falls Problem:Assess and Instruct Home Visit Goal:Home Care Plan Scheduled Safety Problem:Assess and Instruct Home Visit Goal:Home Care Plan Scheduled Plan for Next Visit Problem:Assess and Instruct Home Visit Goal:Home Care Plan Scheduled documented [facility]* Visit Details Visit Type -PT Initial Evalu ation Discipline -Physical Therapy Problems Problem Start Date Status Goals Interventions Wound Care and/or Skin Problems Disciplines: Physical Therapy 08/29/2023 Active 1 goal linked to scheduled/documented intervention 1 goal intervention scheduled/documented in this visit Assess and Instruct Home Visit Disciplines: Physical Therapy 08/29/2023 Active 3 goals linked to scheduled/documented interventions 5 goal interventions scheduled/documented in this visit Home Exercise Program Disciplines: Physical Therapy 08/29/2023 Active 1 goal linked to scheduled/documented intervention 1 goal intervention scheduled/documented in this visit Disease-Specific Rehabilitation Disciplines: Physical Therapy 08/29/2023 Active 1 goal linked to scheduled/documented intervention 1 goal intervention scheduled/documented in this visit Mobility Disciplines: Physical Therapy 08/29/2023 Active 1 goal linked to scheduled/documented intervention 1 goal intervention scheduled/documented in this visit Goals Goal Associated Problem Outcome Goal Met? Visit Notes Wound/Incision Wound Care and/or Skin Problems No Pain Assess and Instruct Home Visit No Medications Assess and Instruct Home Visit No Home Care Plan Assess and Instruct Home Visit No Home Exercise Program Home Exercise Program No Post-Surgical Disease-Specific Rehabilitation No Mobility Mobility No Interventions Intervention Associated Problem/Goal Status Variance Visit Notes Wound/Incision Monitoring Problem:Wound Care and/or Skin Problems Goal:Wound/Incision Completed Educated patient on hand hygiene and infection control techniques, signs/symptoms of infection and when to call or report concerns to home health or provider. patient able to verbalize teach back of hand hygiene, signs/symptoms of infection and when to call or report concerns to home health or provider. Pain Management Problem:Assess and Instruct Home Visit Goal:Pain Completed Patient reports: back pain Clinician taught: patient Clinician instructed on: benefits of general activity on pain levels Patient/caregiver is able to teach back 100% of instruction. Instruct Medication Management Problem:Assess and Instruct Home Visit Goal:Medications Completed Home Visit Med Education: Medication list reconciled. Medication profile and in-home medication list updated with appropriate changes. Discrepanices noted during home visit: Patient is missing one med. Nursing is working on finding. Nurse present during visit. Falls Problem:Assess and Instruct Home Visit Goal:Home Care Plan Completed Clinician taught: patient 4-10 Patient IS at risk for falls (a score of 6 or greater is a predictor of future falls) and clinician instructed: proper footwear, improved lighting, remove clutter and throw rugs, non-slip mats in tubs/showers, handrails/grab bar placement, assistive device usage, keep frequently used items in reach and emergency response system and/or keep phone on you. Patient/caregiver was able to demonstrate 100% via teachback Safety Problem:Assess and Instruct Home Visit Goal:Home Care Plan Completed Assessed patient vulnerability and home safety risks: yes Equipment reviewed walkr Patient at risk for harm or abuse no Plan for Next Visit Problem:Assess and Instruct Home Visit Goal:Home Care Plan Completed Follow up education for next visit: HEP and posture education. Spine precautions No BLT. Skilled intervention at next visit: therex, transfer training, gait training, HEP (no back exercises) Home Exercise Program Problem:Home Exercise Program Goal:Home Exercise Program Completed with variance Limitations in activity tolerance Instruct Post-op Care Problem:Disease-Spec [facility] Rehabilitation Goal:Post-Surgical Completed Clinician taught: patient Clinician instructed on: Instructed patient in spine precautions post op, prevention of blood clots, PE, Edema, infection and constipation. Patient/caregiver is able to teach back 100% of instruction. Instruct Mobility Problem:Mobility Goal:Mobility Completed Clinician taught: patient Clinician instructed on: Instructed patient in safe and efficient technique for gait/transfers. Patient/caregiver is able to teach back 75% of instruction. [facility] Visit Details Visit Type - HH OASIS Disc harge Discipline -Nursing Home Problems Problem Start Date Status Goals Interventions Assess and Instruct Home Visit Disciplines: Nursing Home 08/26/2023 Active 1 goal linked to scheduled/documented intervention 4 goal interventions scheduled/documented in this visit Medication Management Disciplines: Nursing Home 08/26/2023 Active 1 goal linked to scheduled/documented intervention 1 goal intervention scheduled/documented in this visit Pain Management Disciplines: Nursing Home 08/26/2023 Active 1 goal linked to scheduled/documented intervention 1 goal intervention scheduled/documented in this visit Wound Care and/or Skin Problems Disciplines: Nursing Home 08/26/2023 Active 1 goal linked to scheduled/documented intervention 1 problem intervention scheduled/documented in this visit 1 goal intervention scheduled/documented in this visit Respiratory Disciplines: Nursing Home 08/26/2023 Active 1 goal linked to scheduled/documented intervention 1 goal intervention scheduled/documented in this visit Psychosocial Health Disciplines: Nursing Home 09/05/2023 Active 1 goal linked to scheduled/documented intervention 1 goal intervention scheduled/documented in this visit Goals Goal Associated Problem Outcome Goal Met? Visit Notes Home Care Plan Assess and Instruct Home Visit No Medications Medication Management No Pain Pain Management No Skin Breakdown Wound Care and/or Skin Problems No Respiratory Function Respiratory No Depression Psychosocial Health No Interventions Intervention Associated Problem/Goal Status Variance Visit Notes Falls Problem:Assess and Instruct Home Visit Goal:Home Care Plan Completed reviewed fall preventions Safety Problem:Assess and Instruct Home Visit Goal:Home Care Plan Completed no s/s of abuse noted Plan for Next Visit Problem:Assess and Instruct Home Visit Goal:Home Care Plan Completed discharged from this vs Discharge Planning Problem:Assess and Instruct Home Visit Goal:Home Care Plan Completed discharged from this vs Instruct Medication Management Problem:Medication Management Goal:Medications Completed reviewed medications Assess Pain Characteristics and Current Pain Regimen and Instruct Methods of Pain Relief Problem:Pain Management Goal:Pain Completed Instruct High Risk for Skin Breakdown Problem:Wound Care and/or Skin Problems Goal:Skin Breakdown Completed reviewed this vs Wound/Incision Monitoring Problem:Wound Care and/or Skin Problems Completed well approximated, no redness, no drainage Instruct Impaired Respiratory Function Problem:Respiratory Goal:Respiratory Function Completed lungs clear, no s/s of shortness of breath Instruct Depression Problem:Psychosocial Health Goal:Depression Completed done this vs [facility] Visit Details Visit Type -PT OASIS Start o f Care Discipline -Physical Therapy Problems Problem Start Date Status Goals Interventions Wound Care and/or Skin Problems Disciplines: Physical Therapy 08/21/2024 Active 1 goal linked to scheduled/documented intervention 2 goal interventions scheduled/documented in this visit Assess and Instruct Home Visit Disciplines: Physical Therapy 08/21/2024 Active 3 goals linked to scheduled/documented interventions 5 goal interventions scheduled/documented in this visit Goals Goal Associated Problem Outcome Goal Met? Visit Notes Wound/Incision Wound Care and/or Skin Problems No Rehospitalization Risk Assess and Instruct Home Visit No Medications Assess and Instruct Home Visit No Home Care Plan Assess and Instruct Home Visit No Interventions Intervention Associated Problem/Goal Status Variance Visit Notes Wound/Incision Care Problem:Wound Care and/or Skin Problems Goal:Wound/Incision Scheduled Wound/Incision Monitoring Problem:Wound Care and/or Skin Problems Goal:Wound/Incision Scheduled Rehospitalization Risk Problem:Assess and Instruct Home Visit Goal:Rehospitalization Risk Scheduled Instruct Medication Management Problem:Assess and Instruct Home Visit Goal:Medications Scheduled Falls Problem:Assess and Instruct Home Visit Goal:Home Care Plan Scheduled Safety Problem:Assess and Instruct Home Visit Goal:Home Care Plan Scheduled Plan for Next Visit Problem:Assess and Instruct Home Visit Goal:Home Care Plan Scheduled [facility] Visit Details Visit Type -[employer] Routine Visi t Discipline -Physical Therapy Problems Problem Start Date Status Goals Interventions Wound Care and/or Skin Problems Disciplines: Physical Therapy 08/21/2024 Active 1 goal linked to scheduled/documented intervention 2 goal interventions scheduled/documented in this visit Assess and Instruct Home Visit Disciplines: Physical Therapy 08/21/2024 Active 4 goals linked to scheduled/documented interventions 6 goal interventions scheduled/documented in this visit Assess POC Synopsis Disciplines: Physical Therapy 08/21/2024 Active 1 goal linked to scheduled/documented intervention 1 goal intervention scheduled/documented in this visit Home Exercise Program Disciplines: Physical Therapy 08/21/2024 Active 1 goal linked to scheduled/documented intervention 1 goal intervention scheduled/documented in this visit Disease-Specific Rehabilitation Disciplines: Physical Therapy 08/21/2024 Active 3 goals linked to scheduled/documented interventions 3 goal interventions scheduled/documented in this visit Mobility Disciplines: Physical Therapy 08/21/2024 Active 1 goal linked to scheduled/documented intervention 1 goal intervention scheduled/documented in this visit Goals Goal Associated Problem Outcome Goal Met? Visit Notes Wound/Incision Wound Care and/or Skin Problems No Rehospitalization Risk Assess and Instruct Home Visit No Pain Assess and Instruct Home Visit No Medications Assess and Instruct Home Visit No Home Care Plan Assess and Instruct Home Visit No Diabetic Foot Education Assess POC Synopsis No Home Exercise Program Home Exercise Program No Post-Surgical Disease-Specific Rehabilitation No Pulmonary Disease-Specific Rehabilitation No Balance Disease-Specific Rehabilitation No Mobility Mobility No Interventions Intervention Associated Problem/Goal Status Variance Visit Notes Wound/Incision Monitoring Problem:Wound Care and/or Skin Problems Goal:Wound/Incision Completed Educated patient on hand hygiene and infection control techniques, signs/symptoms of infection and when to call or report concerns to home health or provider. patient able to verbalize teach back of hand hygiene, signs/symptoms of infection and when to call or report concerns to home health or provider. Wound/Incision Care Problem:Wound Care and/or Skin Problems Goal:Wound/Incision Scheduled Rehospitalization Risk Problem:Assess and Instruct Home Visit Goal:Rehospitalization Risk Completed {Instructed pt. to take time and be deliberate when up walking. Instructed pt. to use AD when up walking. Instructed pt. to keep walkways free of clutter. Instructed pt. to always wear proper slip resistant footwear. Pain Management Problem:Assess and Instruct Home Visit Goal:Pain Completed pt. reports: see pain scale Clinician taught: patient Clinician instructed on: Instructed pt. in pain relieving positioning and posture. Instruct Patient on medications and alternative strategies to relieve pain. Patient/caregiver is able to teach back 100% of instruction. Instruct Medication Management Problem:Assess and Instruct Home Visit Goal:Medications Completed Home Visit Med Education: Medication list reconciled. Medication profile and in-home medication list updated with appropriate changes. Discrepanices noted during home visit: none Patient/caregiver is able to teach back 100% of instruction Safety Problem:Assess and Instruct Home Visit Goal:Home Care Plan Completed Assessed patient vulnerability and home safety risks: pt. safe at home Equipment reviewed: walker Patient at risk for harm or abuse No Family members involved in safety plan. Plan for Next Visit Problem:Assess and Instruct Home Visit Goal:Home Care Plan Completed Follow up education for next visit: Cont. mobility training, exercise tech., and safety awareness. Skilled intervention at next visit: there. ex, mobility training, transfer training. Falls Problem:Assess and Instruct Home Visit Goal:Home Care Plan Scheduled Assess Feet and Provide Diabetic Foot Education Problem:Assess POC Synopsis Goal:Diabetic Foot Education Completed Instructed pt. to always wear proper footwear to protect feet when when up walking. Instructed to inspect feet frequently for injury. Home Exercise Program Problem:Home Exercise Program Goal:Home Exercise Program Completed Patient reports: pt. reports compliance with HEP. Clinician taught: patient Clinician instructed on: Instructed in proper tech. and posture with ex. and activity. Patient/caregiver is able to teach back 100% of instruction. Instruct Post-op Care Problem:Disease-Specif ic Rehabilitation Goal:Post-Surgical Completed Patient reports: No new issues Clinician taught: patient Clinician instructed on: Instructed in importance of moving to prevent, DVT, pneumonia, pressure sores and to increase strength and endurance. Patient/caregiver is able to teach back 100% of instruction. Pulmonary Problem:Disease-Specif ic Rehabilitation Goal:Pulmonary Completed pt.'s O2= 92% after activity. Instructed pt. in pursed lip breathing. Balance/Neuromuscular Re-education Problem:Disease-Specif ic Rehabilitation Goal:Balance Completed Patient reports: No recent falls Clinician taught: patient Clinician instructed on: Instructed pt. in upright posture and proper foot placement during gait to improve safety and postural awareness. TUG= 26.62 sec Patient/caregiver is able to teach back 100% of instruction. Instruct Mobility Problem:Mobility Goal:Mobility Completed Patient reports: Able to walk around home. Clinician taught: patient Clinician instructed on: Instructed pt. in upright posture and proper foot placement during gait to improve safety and postural awareness. pt. amb. 80' x1 with rollator walker. Decreased step height and length noted. Patient/caregiver is able to teach back 100% of instruction. Sit to stand x5, 30sec.= 5 with hands on knees. [facility] Visit Details Visit Type -PT OASIS Start o f Care Discipline -Physical Therapy Problems Problem Start Date Status Goals Interventions Wound Care and/or Skin Problems Disciplines: Physical Therapy 08/21/2024 Active 1 goal linked to scheduled/documented intervention 2 goal interventions scheduled/documented in this visit Assess and Instruct Home Visit Disciplines: Physical Therapy 08/21/2024 Active 3 goals linked to scheduled/documented interventions 5 goal interventions scheduled/documented in this visit Goals Goal Associated Problem Outcome Goal Met? Visit Notes Wound/Incision Wound Care and/or Skin Problems No Rehospitalization Risk Assess and Instruct Home Visit No Medications Assess and Instruct Home Visit No Home Care Plan Assess and Instruct Home Visit No Interventions Intervention Associated Problem/Goal Status Variance Visit Notes Wound/Incision Care Problem:Wound Care and/or Skin Problems Goal:Wound/Incision Scheduled Wound/Incision Monitoring Problem:Wound Care and/or Skin Problems Goal:Wound/Incision Scheduled Rehospitalization Risk Problem:Assess and Instruct Home Visit Goal:Rehospitalization Risk Scheduled Instruct Medication Management Problem:Assess and Instruct Home Visit Goal:Medications Scheduled Falls Problem:Assess and Instruct Home Visit Goal:Home Care Plan Scheduled Safety Problem:Assess and Instruct Home Visit Goal:Home Care Plan Scheduled Plan for Next Visit Problem:Assess and Instruct Home Visit Goal:Home Care Plan Scheduled [facility] Visit Details Visit Type -PT OASIS Start o f Care Discipline -Physical Therapy Problems Problem Start Date Status Goals Interventions Wound Care and/or Skin Problems Disciplines: Physical Therapy 08/21/2024 Active 1 goal linked to scheduled/documented intervention 2 goal interventions scheduled/documented in this visit Assess and Instruct Home Visit Disciplines: Physical Therapy 08/21/2024 Active 3 goals linked to scheduled/documented interventions 5 goal interventions scheduled/documented in this visit Goals Goal Associated Problem Outcome Goal Met? Visit Notes Wound/Incision Wound Care and/or Skin Problems No Rehospitalization Risk Assess and Instruct Home Visit No Medications Assess and Instruct Home Visit No Home Care Plan Assess and Instruct Home Visit No Interventions Intervention Associated Problem/Goal Status Variance Visit Notes Wound/Incision Care Problem:Wound Care and/or Skin Problems Goal:Wound/Incision Scheduled Wound/Incision Monitoring Problem:Wound Care and/or Skin Problems Goal:Wound/Incision Scheduled Rehospitalization Risk Problem:Assess and Instruct Home Visit Goal:Rehospitalization Risk Scheduled Instruct Medication Management Problem:Assess and Instruct Home Visit Goal:Medications Scheduled Falls Problem:Assess and Instruct Home Visit Goal:Home Care Plan Scheduled Safety Problem:Assess and Instruct Home Visit Goal:Home Care Plan Scheduled Plan for Next Visit Problem:Assess and Instruct Home Visit Goal:Home Care Plan Scheduled [facility] Visit Details Visit Type -[employer] Routine Visi t Discipline -Physical Therapy Problems Problem Start Date Status Goals Interventions Wound Care and/or Skin Problems Disciplines: Physical Therapy 08/21/2024 Active 1 goal linked to scheduled/documented intervention 2 goal interventions scheduled/documented in this visit Assess and Instruct Home Visit Disciplines: Physical Therapy 08/21/2024 Active 4 goals linked to scheduled/documented interventions 6 goal interventions scheduled/documented in this visit Assess POC Synopsis Disciplines: Physical Therapy 08/21/2024 Active 1 goal linked to scheduled/documented intervention 1 goal intervention scheduled/documented in this visit Home Exercise Program Disciplines: Physical Therapy 08/21/2024 Active 1 goal linked to scheduled/documented intervention 1 goal intervention scheduled/documented in this visit Disease-Specific Rehabilitation Disciplines: Physical Therapy 08/21/2024 Active 3 goals linked to scheduled/documented interventions 3 goal interventions scheduled/documented in this visit Mobility Disciplines: Physical Therapy 08/21/2024 Active 1 goal linked to scheduled/documented intervention 1 goal intervention scheduled/documented in this visit Goals Goal Associated Problem Outcome Goal Met? Visit Notes Wound/Incision Wound Care and/or Skin Problems No Rehospitalization Risk Assess and Instruct Home Visit No Pain Assess and Instruct Home Visit No Medications Assess and Instruct Home Visit No Home Care Plan Assess and Instruct Home Visit No Diabetic Foot Education Assess POC Synopsis No Home Exercise Program Home Exercise Program No Post-Surgical Disease-Specific Rehabilitation No Pulmonary Disease-Specific Rehabilitation No Balance Disease-Specific Rehabilitation No Mobility Mobility No Interventions Intervention Associated Problem/Goal Status Variance Visit Notes Wound/Incision Monitoring Problem:Wound Care and/or Skin Problems Goal:Wound/Incision Completed Educated patient on hand hygiene and infection control techniques, signs/symptoms of infection and when to call or report concerns to home health or provider. patient able to verbalize teach back of hand hygiene, signs/symptoms of infection and when to call or report concerns to home health or provider. Wound/Incision Care Problem:Wound Care and/or Skin Problems Goal:Wound/Incision Scheduled Rehospitalization Risk Problem:Assess and Instruct Home Visit Goal:Rehospitalization Risk Scheduled Pain Management Problem:Assess and Instruct Home Visit Goal:Pain Completed pt. reports: see pain scale Clinician taught: patient Clinician instructed on: Instructed pt. in pain relieving positioning and posture. Instruct Patient on medications and alternative strategies to relieve pain. Patient/caregiver is able to teach back 100% of instruction. Instruct Medication Management Problem:Assess and Instruct Home Visit Goal:Medications Completed Home Visit Med Education: Medication list reconciled. Medication profile and in-home medication list updated with appropriate changes. Discrepanices noted during home visit: none Patient/caregiver is able to teach back 100% of instruction Safety Problem:Assess and Instruct Home Visit Goal:Home Care Plan Completed Assessed patient vulnerability and home safety risks: pt. safe at home Equipment reviewed: walker Patient at risk for harm or abuse No Family members involved in safety plan. Plan for Next Visit Problem:Assess and Instruct Home Visit Goal:Home Care Plan Completed Follow up education for next visit: Cont. mobility training, exercise tech., and safety awareness. Skilled intervention at next visit: there. ex, mobility training, transfer training. Falls Problem:Assess and Instruct Home Visit Goal:Home Care Plan Scheduled Assess Feet and Provide Diabetic Foot Education Problem:Assess POC Synopsis Goal:Diabetic Foot Education Completed Instructed pt. to always wear proper footwear to protect feet when when up walking. Instructed to inspect feet frequently for injury. Home Exercise Program Problem:Home Exercise Program Goal:Home Exercise Program Completed Patient reports: pt. reports compliance with HEP. Clinician taught: patient Clinician instructed on: Instructed in proper tech. and posture with ex. and activity. Patient/caregiver is able to teach back 100% of instruction. Instruct Post-op Care Problem:Disease-Specif ic Rehabilitation Goal:Post-Surgical Completed Patient reports: No new issues Clinician taught: patient Clinician instructed on: Instructed in importance of moving to prevent, DVT, pneumonia, pressure sores and to increase strength and endurance. Patient/caregiver is able to teach back 100% of instruction. Pulmonary Problem:Disease-Specif ic Rehabilitation Goal:Pulmonary Completed pt.'s O2= 92% after activity. Instructed pt. in pursed lip breathing. Instructed in importance of progressive walking. Balance/Neuromuscular Re-education Problem:Disease-Specif ic Rehabilitation Goal:Balance Completed Patient reports: No recent falls Clinician taught: patient Clinician instructed on: Instructed pt. in upright posture and proper foot placement during gait to improve safety and postural awareness. TUG= 19.02 sec Patient/caregiver is able to teach back 100% of instruction. Instruct Mobility Problem:Mobility Goal:Mobility Completed Patient reports: Able to walk around home. Clinician taught: patient Clinician instructed on: Instructed pt. in upright posture and proper foot placement during gait to improve safety and postural awareness. pt. amb. 120' x1 with rollator walker 80' x1 without AD. Decreased step height and length noted. Patient/caregiver is able to teach back 100% of instruction. Sit to stand x5, 30sec.= hold for increased walking. [facility] Visit Details Visit Type -[employer] Routine Visi t Discipline -Physical Therapy Problems Problem Start Date Status Goals Interventions Wound Care and/or Skin Problems Disciplines: Physical Therapy 08/21/2024 Active 1 goal linked to scheduled/documented intervention 2 goal interventions scheduled/documented in this visit Assess and Instruct Home Visit Disciplines: Physical Therapy 08/21/2024 Active 4 goals linked to scheduled/documented interventions 6 goal interventions scheduled/documented in this visit Assess POC Synopsis Disciplines: Physical Therapy 08/21/2024 Active 1 goal linked to scheduled/documented intervention 1 goal intervention scheduled/documented in this visit Home Exercise Program Disciplines: Physical Therapy 08/21/2024 Active 1 goal linked to scheduled/documented intervention 1 goal intervention scheduled/documented in this visit Disease-Specific Rehabilitation Disciplines: Physical Therapy 08/21/2024 Active 3 goals linked to scheduled/documented interventions 3 goal interventions scheduled/documented in this visit Mobility Disciplines: Physical Therapy 08/21/2024 Active 1 goal linked to scheduled/documented intervention 1 goal intervention scheduled/documented in this visit Goals Goal Associated Problem Outcome Goal Met? Visit Notes Wound/Incision Wound Care and/or Skin Problems No Rehospitalization Risk Assess and Instruct Home Visit No Pain Assess and Instruct Home Visit No Medications Assess and Instruct Home Visit No Home Care Plan Assess and Instruct Home Visit No Diabetic Foot Education Assess POC Synopsis No Home Exercise Program Home Exercise Program No Post-Surgical Disease-Specific Rehabilitation No Pulmonary Disease-Specific Rehabilitation No Balance Disease-Specific Rehabilitation No Mobility Mobility No Interventions Intervention Associated Problem/Goal Status Variance Visit Notes Wound/Incision Monitoring Problem:Wound Care and/or Skin Problems Goal:Wound/Incision Completed Educated patient on hand hygiene and infection control techniques, signs/symptoms of infection and when to call or report concerns to home health or provider. patient able to verbalize teach back of hand hygiene, signs/symptoms of infection and when to call or report concerns to home health or provider. Wound/Incision Care Problem:Wound Care and/or Skin Problems Goal:Wound/Incision Scheduled Rehospitalization Risk Problem:Assess and Instruct Home Visit Goal:Rehospitalization Risk Scheduled Pain Management Problem:Assess and Instruct Home Visit Goal:Pain Completed pt. reports: see pain scale Clinician taught: patient Clinician instructed on: Instructed pt. in pain relieving positioning and posture. Instruct Patient on medications and alternative strategies to relieve pain. Patient/caregiver is able to teach back 100% of instruction. Instruct Medication Management Problem:Assess and Instruct Home Visit Goal:Medications Completed Home Visit Med Education: Medication list reconciled. Medication profile and in-home medication list updated with appropriate changes. Discrepanices noted during home visit: none Patient/caregiver is able to teach back 100% of instruction Safety Problem:Assess and Instruct Home Visit Goal:Home Care Plan Completed Assessed patient vulnerability and home safety risks: pt. safe at home Equipment reviewed: walker Patient at risk for harm or abuse No Family members involved in safety plan. Plan for Next Visit Problem:Assess and Instruct Home Visit Goal:Home Care Plan Completed Follow up education for next visit: Cont. mobility training, exercise tech., and safety awareness. Skilled intervention at next visit: there. ex, mobility training, transfer training. Falls Problem:Assess and Instruct Home Visit Goal:Home Care Plan Scheduled Assess Feet and Provide Diabetic Foot Education Problem:Assess POC Synopsis Goal:Diabetic Foot Education Completed Instructed pt. to always wear proper footwear to protect feet when when up walking. Instructed to inspect feet frequently for injury. Home Exercise Program Problem:Home Exercise Program Goal:Home Exercise Program Completed Patient reports: pt. reports compliance with HEP. Clinician taught: patient Clinician instructed on: Instructed in proper tech. and posture with ex. and activity. Patient/caregiver is able to teach back 100% of instruction. Instruct Post-op Care Problem:Disease-Specif ic Rehabilitation Goal:Post-Surgical Completed Patient reports: No new issues Clinician taught: patient Clinician instructed on: Instructed in importance of moving to prevent, DVT, pneumonia, pressure sores and to increase strength and endurance. Patient/caregiver is able to teach back 100% of instruction. Pulmonary Problem:Disease-Specif ic Rehabilitation Goal:Pulmonary Completed pt.'s O2= 92% after activity. Instructed pt. in pursed lip breathing. Instructed in importance of progressive walking. Balance/Neuromuscular Re-education Problem:Disease-Specif ic Rehabilitation Goal:Balance Completed Patient reports: No recent falls Clinician taught: patient Clinician instructed on: Instructed pt. in upright posture and proper foot placement during gait to improve safety and postural awareness. TUG= 19.02 sec Patient/caregiver is able to teach back 100% of instruction. Static stand narrow EBEN scanning room side to side, up and down x10. static stand narrow EBEN eyes closed for 10 sec. Instruct Mobility Problem:Mobility Goal:Mobility Completed Patient reports: Able to walk around home. Clinician taught: patient Clinician instructed on: Instructed pt. in upright posture and proper foot placement during gait to improve safety and postural awareness. pt. amb. 120' x1 with rollator walker 80' x1 without AD. Decreased step height and length noted. Patient/caregiver is able to teach back 100% of instruction. Sit to stand x5, 30sec.= 5 with b UE support. pt. has diff. doing more due to B knee painwith activity. [facility] Visit Details Visit Type -[employer] Routine Visi t Discipline -Physical Therapy Problems Problem Start Date Status Goals Interventions Wound Care and/or Skin Problems Disciplines: Physical Therapy 08/21/2024 Active 1 goal linked to scheduled/documented intervention 2 goal interventions scheduled/documented in this visit Assess and Instruct Home Visit Disciplines: Physical Therapy 08/21/2024 Active 4 goals linked to scheduled/documented interventions 6 goal interventions scheduled/documented in this visit Assess POC Synopsis Disciplines: Physical Therapy 08/21/2024 Active 1 goal linked to scheduled/documented intervention 1 goal intervention scheduled/documented in this visit Home Exercise Program Disciplines: Physical Therapy 08/21/2024 Active 1 goal linked to scheduled/documented intervention 1 goal intervention scheduled/documented in this visit Disease-Specific Rehabilitation Disciplines: Physical Therapy 08/21/2024 Active 3 goals linked to scheduled/documented interventions 3 goal interventions scheduled/documented in this visit Mobility Disciplines: Physical Therapy 08/21/2024 Active 1 goal linked to scheduled/documented intervention 1 goal intervention scheduled/documented in this visit Goals Goal Associated Problem Outcome Goal Met? Visit Notes Wound/Incision Wound Care and/or Skin Problems No Rehospitalization Risk Assess and Instruct Home Visit No Pain Assess and Instruct Home Visit No Medications Assess and Instruct Home Visit No Home Care Plan Assess and Instruct Home Visit No Diabetic Foot Education Assess POC Synopsis No Home Exercise Program Home Exercise Program No Post-Surgical Disease-Specific Rehabilitation No Pulmonary Disease-Specific Rehabilitation No Balance Disease-Specific Rehabilitation No Mobility Mobility No Interventions Intervention Associated Problem/Goal Status Variance Visit Notes Wound/Incision Monitoring Problem:Wound Care and/or Skin Problems Goal:Wound/Incision Completed Educated patient on hand hygiene and infection control techniques, signs/symptoms of infection and when to call or report concerns to home health or provider. patient able to verbalize teach back of hand hygiene, signs/symptoms of infection and when to call or report concerns to home health or provider. Wound/Incision Care Problem:Wound Care and/or Skin Problems Goal:Wound/Incision Scheduled Rehospitalization Risk Problem:Assess and Instruct Home Visit Goal:Rehospitalization Risk Scheduled Pain Management Problem:Assess and Instruct Home Visit Goal:Pain Completed pt. reports: see pain scale Clinician taught: patient Clinician instructed on: Instructed pt. in pain relieving positioning and posture. Instruct Patient on medications and alternative strategies to relieve pain. Patient/caregiver is able to teach back 100% of instruction. Instruct Medication Management Problem:Assess and Instruct Home Visit Goal:Medications Completed Home Visit Med Education: Medication list reconciled. Medication profile and in-home medication list updated with appropriate changes. Discrepanices noted during home visit: none Patient/caregiver is able to teach back 100% of instruction Safety Problem:Assess and Instruct Home Visit Goal:Home Care Plan Completed Assessed patient vulnerability and home safety risks: pt. safe at home Equipment reviewed: walker Patient at risk for harm or abuse No Family members involved in safety plan. Plan for Next Visit Problem:Assess and Instruct Home Visit Goal:Home Care Plan Completed Follow up education for next visit: Cont. mobility training, exercise tech., and safety awareness. Skilled intervention at next visit: there. ex, mobility training, transfer training. Falls Problem:Assess and Instruct Home Visit Goal:Home Care Plan Scheduled Assess Feet and Provide Diabetic Foot Education Problem:Assess POC Synopsis Goal:Diabetic Foot Education Completed Instructed pt. to always wear proper footwear to protect feet when when up walking. Instructed to inspect feet frequently for injury. Home Exercise Program Problem:Home Exercise Program Goal:Home Exercise Program Completed Patient reports: pt. reports compliance with HEP. Clinician taught: patient Clinician instructed on: Instructed in proper tech. and posture with ex. and activity. Patient/caregiver is able to teach back 100% of instruction. Instruct Post-op Care Problem:Disease-Specif ic Rehabilitation Goal:Post-Surgical Completed Patient reports: No new issues Clinician taught: patient Clinician instructed on: Instructed in importance of moving to prevent, DVT, pneumonia, pressure sores and to increase strength and endurance. Patient/caregiver is able to teach back 100% of instruction. Pulmonary Problem:Disease-Specif ic Rehabilitation Goal:Pulmonary Completed pt.'s O2= 92% after activity. Instructed pt. in pursed lip breathing. Instructed in importance of progressive walking. Balance/Neuromuscular Re-education Problem:Disease-Specif ic Rehabilitation Goal:Balance Completed Patient reports: No recent falls Clinician taught: patient Clinician instructed on: Instructed pt. in upright posture and proper foot placement during gait to improve safety and postural awareness. TUG= 14.94 sec Patient/caregiver is able to teach back 100% of instruction. Static stand narrow EBEN scanning room side to side, up and down x10. static stand narrow EBEN eyes closed for 10 sec. Lateral-gait 10' x 5 for balance. Lateral-gait 10' x 5 for balance. pt. complets 3 cycles of Barrios-Daroff to see if it would help vertigo. pt. reports no symptoms and displays no nystagmus with activity. Instruct Mobility Problem:Mobility Goal:Mobility Completed Patient reports: Able to walk around home. Clinician taught: patient Clinician instructed on: Instructed pt. in upright posture and proper foot placement during gait to improve safety and postural awareness. pt. amb. 120' x1 with rollator walker 80' x1 without AD. Decreased step height and length noted. Patient/caregiver is able to teach back 100% of instruction. Sit to stand x5, 30sec.= 5 with b UE support. pt. has diff. doing more due to B knee painwith activity. [facility] Visit Details Visit Type -[employer] Routine Visi t Discipline -Physical Therapy Problems Problem Start Date Status Goals Interventions Wound Care and/or Skin Problems Disciplines: Physical Therapy 08/21/2024 Active 1 goal linked to scheduled/documented intervention 2 goal interventions scheduled/documented in this visit Assess and Instruct Home Visit Disciplines: Physical Therapy 08/21/2024 Active 4 goals linked to scheduled/documented interventions 6 goal interventions scheduled/documented in this visit Assess POC Synopsis Disciplines: Physical Therapy 08/21/2024 Active 1 goal linked to scheduled/documented intervention 1 goal intervention scheduled/documented in this visit Home Exercise Program Disciplines: Physical Therapy 08/21/2024 Active 1 goal linked to scheduled/documented intervention 1 goal intervention scheduled/documented in this visit Disease-Specific Rehabilitation Disciplines: Physical Therapy 08/21/2024 Active 3 goals linked to scheduled/documented interventions 3 goal interventions scheduled/documented in this visit Mobility Disciplines: Physical Therapy 08/21/2024 Active 1 goal linked to scheduled/documented intervention 1 goal intervention scheduled/documented in this visit Goals Goal Associated Problem Outcome Goal Met? Visit Notes Wound/Incision Wound Care and/or Skin Problems No Rehospitalization Risk Assess and Instruct Home Visit No Pain Assess and Instruct Home Visit No Medications Assess and Instruct Home Visit No Home Care Plan Assess and Instruct Home Visit No Diabetic Foot Education Assess POC Synopsis No Home Exercise Program Home Exercise Program No Post-Surgical Disease-Specific Rehabilitation No Pulmonary Disease-Specific Rehabilitation No Balance Disease-Specific Rehabilitation No Mobility Mobility No Interventions Intervention Associated Problem/Goal Status Variance Visit Notes Wound/Incision Monitoring Problem:Wound Care and/or Skin Problems Goal:Wound/Incision Completed Educated patient on hand hygiene and infection control techniques, signs/symptoms of infection and when to call or report concerns to home health or provider. patient able to verbalize teach back of hand hygiene, signs/symptoms of infection and when to call or report concerns to home health or provider. Wound/Incision Care Problem:Wound Care and/or Skin Problems Goal:Wound/Incision Scheduled Rehospitalization Risk Problem:Assess and Instruct Home Visit Goal:Rehospitalization Risk Scheduled Pain Management Problem:Assess and Instruct Home Visit Goal:Pain Completed pt. reports: see pain scale Clinician taught: patient Clinician instructed on: Instructed pt. in pain relieving positioning and posture. Instruct Patient on medications and alternative strategies to relieve pain. Patient/caregiver is able to teach back 100% of instruction. Instruct Medication Management Problem:Assess and Instruct Home Visit Goal:Medications Completed Home Visit Med Education: Medication list reconciled. Medication profile and in-home medication list updated with appropriate changes. Discrepanices noted during home visit: none Patient/caregiver is able to teach back 100% of instruction Safety Problem:Assess and Instruct Home Visit Goal:Home Care Plan Completed Assessed patient vulnerability and home safety risks: pt. safe at home Equipment reviewed: walker Patient at risk for harm or abuse No Family members involved in safety plan. Plan for Next Visit Problem:Assess and Instruct Home Visit Goal:Home Care Plan Completed Follow up education for next visit: Cont. mobility training, exercise tech., and safety awareness. Skilled intervention at next visit: there. ex, mobility training, transfer training. Falls Problem:Assess and Instruct Home Visit Goal:Home Care Plan Scheduled Assess Feet and Provide Diabetic Foot Education Problem:Assess POC Synopsis Goal:Diabetic Foot Education Completed Instructed pt. to always wear proper footwear to protect feet when when up walking. Instructed to inspect feet frequently for injury. Home Exercise Program Problem:Home Exercise Program Goal:Home Exercise Program Completed Patient reports: pt. reports compliance with HEP. Clinician taught: patient Clinician instructed on: Instructed in proper tech. and posture with ex. and activity. Patient/caregiver is able to teach back 100% of instruction. Instruct Post-op Care Problem:Disease-Specif ic Rehabilitation Goal:Post-Surgical Completed Patient reports: No new issues Clinician taught: patient Clinician instructed on: Instructed in importance of moving to prevent, DVT, pneumonia, pressure sores and to increase strength and endurance. Patient/caregiver is able to teach back 100% of instruction. Pulmonary Problem:Disease-Specif ic Rehabilitation Goal:Pulmonary Completed pt.'s O2= 92% after activity. Instructed pt. in pursed lip breathing. Instructed in importance of progressive walking. Balance/Neuromuscular Re-education Problem:Disease-Specif ic Rehabilitation Goal:Balance Completed Patient reports: No recent falls Clinician taught: patient Clinician instructed on: Instructed pt. in upright posture and proper foot placement during gait to improve safety and postural awareness. TUG= 19.02 sec Patient/caregiver is able to teach back 100% of instruction. Static stand narrow EBEN scanning room side to side, up and down x10. static stand narrow EBEN eyes closed for 10 sec. Instruct Mobility Problem:Mobility Goal:Mobility Completed Patient reports: Able to walk around home. Clinician taught: patient Clinician instructed on: Instructed pt. in upright posture and proper foot placement during gait to improve safety and postural awareness. pt. amb. 120' x1 with rollator walker 80' x1 without AD. Decreased step height and length noted. Patient/caregiver is able to teach back 100% of instruction. Sit to stand x5, 30sec.= 5 with b UE support. pt. has diff. doing more due to B knee painwith activity. [facility] Visit Details Visit Type -[employer] Routine Visi t Discipline -Physical Therapy Problems Problem Start Date Status Goals Interventions Wound Care and/or Skin Problems Disciplines: Physical Therapy 08/21/2024 Active 1 goal linked to scheduled/documented intervention 2 goal interventions scheduled/documented in this visit Assess and Instruct Home Visit Disciplines: Physical Therapy 08/21/2024 Active 4 goals linked to scheduled/documented interventions 6 goal interventions scheduled/documented in this visit Assess POC Synopsis Disciplines: Physical Therapy 08/21/2024 Active 1 goal linked to scheduled/documented intervention 1 goal intervention scheduled/documented in this visit Home Exercise Program Disciplines: Physical Therapy 08/21/2024 Active 1 goal linked to scheduled/documented intervention 1 goal intervention scheduled/documented in this visit Disease-Specific Rehabilitation Disciplines: Physical Therapy 08/21/2024 Active 3 goals linked to scheduled/documented interventions 3 goal interventions scheduled/documented in this visit Mobility Disciplines: Physical Therapy 08/21/2024 Active 1 goal linked to scheduled/documented intervention 1 goal intervention scheduled/documented in this visit Goals Goal Associated Problem Outcome Goal Met? Visit Notes Wound/Incision Wound Care and/or Skin Problems No Rehospitalization Risk Assess and Instruct Home Visit No Pain Assess and Instruct Home Visit No Medications Assess and Instruct Home Visit No Home Care Plan Assess and Instruct Home Visit No Diabetic Foot Education Assess POC Synopsis No Home Exercise Program Home Exercise Program No Post-Surgical Disease-Specific Rehabilitation No Pulmonary Disease-Specific Rehabilitation No Balance Disease-Specific Rehabilitation No Mobility Mobility No Interventions Intervention Associated Problem/Goal Status Variance Visit Notes Wound/Incision Monitoring Problem:Wound Care and/or Skin Problems Goal:Wound/Incision Completed Educated patient on hand hygiene and infection control techniques, signs/symptoms of infection and when to call or report concerns to home health or provider. patient able to verbalize teach back of hand hygiene, signs/symptoms of infection and when to call or report concerns to home health or provider. Wound/Incision Care Problem:Wound Care and/or Skin Problems Goal:Wound/Incision Scheduled Rehospitalization Risk Problem:Assess and Instruct Home Visit Goal:Rehospitalization Risk Completed {Instructed pt. to take time and be deliberate when up walking. Instructed pt. to use AD when up walking. Instructed pt. to keep walkways free of clutter. Instructed pt. to always wear proper slip resistant footwear. Pain Management Problem:Assess and Instruct Home Visit Goal:Pain Completed pt. reports: see pain scale Clinician taught: patient Clinician instructed on: Instructed pt. in pain relieving positioning and posture. Instruct Patient on medications and alternative strategies to relieve pain. Patient/caregiver is able to teach back 100% of instruction. Instruct Medication Management Problem:Assess and Instruct Home Visit Goal:Medications Completed Home Visit Med Education: Medication list reconciled. Medication profile and in-home medication list updated with appropriate changes. Discrepanices noted during home visit: none Patient/caregiver is able to teach back 100% of instruction Safety Problem:Assess and Instruct Home Visit Goal:Home Care Plan Completed Assessed patient vulnerability and home safety risks: pt. safe at home Equipment reviewed: walker Patient at risk for harm or abuse No Family members involved in safety plan. Plan for Next Visit Problem:Assess and Instruct Home Visit Goal:Home Care Plan Completed Follow up education for next visit: Cont. mobility training, exercise tech., and safety awareness. Skilled intervention at next visit: there. ex, mobility training, transfer training. Falls Problem:Assess and Instruct Home Visit Goal:Home Care Plan Scheduled Assess Feet and Provide Diabetic Foot Education Problem:Assess POC Synopsis Goal:Diabetic Foot Education Completed Instructed pt. to always wear proper footwear to protect feet when when up walking. Instructed to inspect feet frequently for injury. Home Exercise Program Problem:Home Exercise Program Goal:Home Exercise Program Completed Patient reports: pt. reports compliance with HEP. Clinician taught: patient Clinician instructed on: Instructed in proper tech. and posture with ex. and activity. Patient/caregiver is able to teach back 100% of instruction. Instruct Post-op Care Problem:Disease-Specif ic Rehabilitation Goal:Post-Surgical Completed Patient reports: No new issues Clinician taught: patient Clinician instructed on: Instructed in importance of moving to prevent, DVT, pneumonia, pressure sores and to increase strength and endurance. Patient/caregiver is able to teach back 100% of instruction. Pulmonary Problem:Disease-Specif ic Rehabilitation Goal:Pulmonary Completed pt.'s O2= 92% after activity. Instructed pt. in pursed lip breathing. Balance/Neuromuscular Re-education Problem:Disease-Specif ic Rehabilitation Goal:Balance Completed Patient reports: No recent falls Clinician taught: patient Clinician instructed on: Instructed pt. in upright posture and proper foot placement during gait to improve safety and postural awareness. TUG= 26.62 sec Patient/caregiver is able to teach back 100% of instruction. Instruct Mobility Problem:Mobility Goal:Mobility Completed Patient reports: Able to walk around home. Clinician taught: patient Clinician instructed on: Instructed pt. in upright posture and proper foot placement during gait to improve safety and postural awareness. pt. amb. 80' x1 with rollator walker. Decreased step height and length noted. Patient/caregiver is able to teach back 100% of instruction. Sit to stand x5, 30sec.= 5 with hands on knees. [facility] Visit Details Visit Type -[employer] Routine Visi t Discipline -Physical Therapy Problems Problem Start Date Status Goals Interventions Wound Care and/or Skin Problems Disciplines: Physical Therapy 08/21/2024 Active 1 goal linked to scheduled/documented intervention 2 goal interventions scheduled/documented in this visit Assess and Instruct Home Visit Disciplines: Physical Therapy 08/21/2024 Active 4 goals linked to scheduled/documented interventions 6 goal interventions scheduled/documented in this visit Assess POC Synopsis Disciplines: Physical Therapy 08/21/2024 Active 1 goal linked to scheduled/documented intervention 1 goal intervention scheduled/documented in this visit Home Exercise Program Disciplines: Physical Therapy 08/21/2024 Active 1 goal linked to scheduled/documented intervention 1 goal intervention scheduled/documented in this visit Disease-Specific Rehabilitation Disciplines: Physical Therapy 08/21/2024 Active 3 goals linked to scheduled/documented interventions 3 goal interventions scheduled/documented in this visit Mobility Disciplines: Physical Therapy 08/21/2024 Active 1 goal linked to scheduled/documented intervention 1 goal intervention scheduled/documented in this visit Goals Goal Associated Problem Outcome Goal Met? Visit Notes Wound/Incision Wound Care and/or Skin Problems No Rehospitalization Risk Assess and Instruct Home Visit No Pain Assess and Instruct Home Visit No Medications Assess and Instruct Home Visit No Home Care Plan Assess and Instruct Home Visit No Diabetic Foot Education Assess POC Synopsis No Home Exercise Program Home Exercise Program No Post-Surgical Disease-Specific Rehabilitation No Pulmonary Disease-Specific Rehabilitation No Balance Disease-Specific Rehabilitation No Mobility Mobility No Interventions Intervention Associated Problem/Goal Status Variance Visit Notes Wound/Incision Monitoring Problem:Wound Care and/or Skin Problems Goal:Wound/Incision Completed Educated patient on hand hygiene and infection control techniques, signs/symptoms of infection and when to call or report concerns to home health or provider. patient able to verbalize teach back of hand hygiene, signs/symptoms of infection and when to call or report concerns to home health or provider. Wound/Incision Care Problem:Wound Care and/or Skin Problems Goal:Wound/Incision Scheduled Rehospitalization Risk Problem:Assess and Instruct Home Visit Goal:Rehospitalization Risk Scheduled Pain Management Problem:Assess and Instruct Home Visit Goal:Pain Completed pt. reports: see pain scale Clinician taught: patient Clinician instructed on: Instructed pt. in pain relieving positioning and posture. Instruct Patient on medications and alternative strategies to relieve pain. Patient/caregiver is able to teach back 100% of instruction. Instruct Medication Management Problem:Assess and Instruct Home Visit Goal:Medications Completed Home Visit Med Education: Medication list reconciled. Medication profile and in-home medication list updated with appropriate changes. Discrepanices noted during home visit: none Patient/caregiver is able to teach back 100% of instruction Safety Problem:Assess and Instruct Home Visit Goal:Home Care Plan Completed Assessed patient vulnerability and home safety risks: pt. safe at home Equipment reviewed: walker Patient at risk for harm or abuse No Family members involved in safety plan. Plan for Next Visit Problem:Assess and Instruct Home Visit Goal:Home Care Plan Completed Follow up education for next visit: Cont. mobility training, exercise tech., and safety awareness. Skilled intervention at next visit: there. ex, mobility training, transfer training. Falls Problem:Assess and Instruct Home Visit Goal:Home Care Plan Scheduled Assess Feet and Provide Diabetic Foot Education Problem:Assess POC Synopsis Goal:Diabetic Foot Education Completed Instructed pt. to always wear proper footwear to protect feet when when up walking. Instructed to inspect feet frequently for injury. Home Exercise Program Problem:Home Exercise Program Goal:Home Exercise Program Completed Patient reports: pt. reports compliance with HEP. Clinician taught: patient Clinician instructed on: Instructed in proper tech. and posture with ex. and activity. Patient/caregiver is able to teach back 100% of instruction. Instruct Post-op Care Problem:Disease-Specif ic Rehabilitation Goal:Post-Surgical Completed Patient reports: No new issues Clinician taught: patient Clinician instructed on: Instructed in importance of moving to prevent, DVT, pneumonia, pressure sores and to increase strength and endurance. Patient/caregiver is able to teach back 100% of instruction. Pulmonary Problem:Disease-Specif ic Rehabilitation Goal:Pulmonary Completed pt.'s O2= 92% after activity. Instructed pt. in pursed lip breathing. Instructed in importance of progressive walking. Balance/Neuromuscular Re-education Problem:Disease-Specif ic Rehabilitation Goal:Balance Completed Patient reports: No recent falls Clinician taught: patient Clinician instructed on: Instructed pt. in upright posture and proper foot placement during gait to improve safety and postural awareness. TUG= 14.94 sec Patient/caregiver is able to teach back 100% of instruction. Static stand narrow EBEN scanning room side to side, up and down x10. static stand narrow EBEN eyes closed for 10 sec. Lateral-gait 10' x 5 for balance. Lateral-gait 10' x 5 for balance. pt. complets 3 cycles of Barrios-Daroff to see if it would help vertigo. pt. reports no symptoms and displays no nystagmus with activity. Instruct Mobility Problem:Mobility Goal:Mobility Completed Patient reports: Able to walk around home. Clinician taught: patient Clinician instructed on: Instructed pt. in upright posture and proper foot placement during gait to improve safety and postural awareness. pt. amb. 120' x1 with rollator walker 80' x1 without AD. Decreased step height and length noted. Patient/caregiver is able to teach back 100% of instruction. Sit to stand x5, 30sec.= 5 with b UE support. pt. has diff. doing more due to B knee painwith activity. [facility] Visit Details Visit Type -[employer] Routine Visi t Discipline -Physical Therapy Problems Problem Start Date Status Goals Interventions Wound Care and/or Skin Problems Disciplines: Physical Therapy 08/21/2024 Active 1 goal linked to scheduled/documented intervention 2 goal interventions scheduled/documented in this visit Assess and Instruct Home Visit Disciplines: Physical Therapy 08/21/2024 Active 4 goals linked to scheduled/documented interventions 6 goal interventions scheduled/documented in this visit Assess POC Synopsis Disciplines: Physical Therapy 08/21/2024 Active 1 goal linked to scheduled/documented intervention 1 goal intervention scheduled/documented in this visit Home Exercise Program Disciplines: Physical Therapy 08/21/2024 Active 1 goal linked to scheduled/documented intervention 1 goal intervention scheduled/documented in this visit Disease-Specific Rehabilitation Disciplines: Physical Therapy 08/21/2024 Active 3 goals linked to scheduled/documented interventions 3 goal interventions scheduled/documented in this visit Mobility Disciplines: Physical Therapy 08/21/2024 Active 1 goal linked to scheduled/documented intervention 1 goal intervention scheduled/documented in this visit Goals Goal Associated Problem Outcome Goal Met? Visit Notes Wound/Incision Wound Care and/or Skin Problems No Rehospitalization Risk Assess and Instruct Home Visit No Pain Assess and Instruct Home Visit No Medications Assess and Instruct Home Visit No Home Care Plan Assess and Instruct Home Visit No Diabetic Foot Education Assess POC Synopsis No Home Exercise Program Home Exercise Program No Post-Surgical Disease-Specific Rehabilitation No Pulmonary Disease-Specific Rehabilitation No Balance Disease-Specific Rehabilitation No Mobility Mobility No Interventions Intervention Associated Problem/Goal Status Variance Visit Notes Wound/Incision Monitoring Problem:Wound Care and/or Skin Problems Goal:Wound/Incision Completed Educated patient on hand hygiene and infection control techniques, signs/symptoms of infection and when to call or report concerns to home health or provider. patient able to verbalize teach back of hand hygiene, signs/symptoms of infection and when to call or report concerns to home health or provider. Wound/Incision Care Problem:Wound Care and/or Skin Problems Goal:Wound/Incision Scheduled Rehospitalization Risk Problem:Assess and Instruct Home Visit Goal:Rehospitalization Risk Scheduled Pain Management Problem:Assess and Instruct Home Visit Goal:Pain Completed pt. reports: see pain scale Clinician taught: patient Clinician instructed on: Instructed pt. in pain relieving positioning and posture. Instruct Patient on medications and alternative strategies to relieve pain. Patient/caregiver is able to teach back 100% of instruction. Instruct Medication Management Problem:Assess and Instruct Home Visit Goal:Medications Completed Home Visit Med Education: Medication list reconciled. Medication profile and in-home medication list updated with appropriate changes. Discrepanices noted during home visit: none Patient/caregiver is able to teach back 100% of instruction Safety Problem:Assess and Instruct Home Visit Goal:Home Care Plan Completed Assessed patient vulnerability and home safety risks: pt. safe at home Equipment reviewed: walker Patient at risk for harm or abuse No Family members involved in safety plan. Plan for Next Visit Problem:Assess and Instruct Home Visit Goal:Home Care Plan Completed Follow up education for next visit: Cont. mobility training, exercise tech., and safety awareness. Skilled intervention at next visit: there. ex, mobility training, transfer training. Falls Problem:Assess and Instruct Home Visit Goal:Home Care Plan Scheduled Assess Feet and Provide Diabetic Foot Education Problem:Assess POC Synopsis Goal:Diabetic Foot Education Completed Instructed pt. to always wear proper footwear to protect feet when when up walking. Instructed to inspect feet frequently for injury. Home Exercise Program Problem:Home Exercise Program Goal:Home Exercise Program Completed Patient reports: pt. reports compliance with HEP. Clinician taught: patient Clinician instructed on: Instructed in proper tech. and posture with ex. and activity. Patient/caregiver is able to teach back 100% of instruction. Instruct Post-op Care Problem:Disease-Specif ic Rehabilitation Goal:Post-Surgical Completed Patient reports: No new issues Clinician taught: patient Clinician instructed on: Instructed in importance of moving to prevent, DVT, pneumonia, pressure sores and to increase strength and endurance. Patient/caregiver is able to teach back 100% of instruction. Pulmonary Problem:Disease-Specif ic Rehabilitation Goal:Pulmonary Completed pt.'s O2= 92% after activity. Instructed pt. in pursed lip breathing. Instructed in importance of progressive walking. Balance/Neuromuscular Re-education Problem:Disease-Specif ic Rehabilitation Goal:Balance Completed Patient reports: No recent falls Clinician taught: patient Clinician instructed on: Instructed pt. in upright posture and proper foot placement during gait to improve safety and postural awareness. TUG= 19.02 sec Patient/caregiver is able to teach back 100% of instruction. Instruct Mobility Problem:Mobility Goal:Mobility Completed Patient reports: Able to walk around home. Clinician taught: patient Clinician instructed on: Instructed pt. in upright posture and proper foot placement during gait to improve safety and postural awareness. pt. amb. 120' x1 with rollator walker 80' x1 without AD. Decreased step height and length noted. Patient/caregiver is able to teach back 100% of instruction. Sit to stand x5, 30sec.= hold for increased walking. [facility] Visit Details Visit Type -PT OASIS Dischar Discipline -Physical Therapy Problems Problem Start Date Status Goals Interventions Wound Care and/or Skin Problems Disciplines: Physical Therapy 08/21/2024 Resolved on 09/17/2024 1 goal linked to scheduled/documented intervention 2 goal interventions scheduled/documented in this visit Assess and Instruct Home Visit Disciplines: Physical Therapy 08/21/2024 Resolved on 09/17/2024 4 goals linked to scheduled/documented interventions 7 goal interventions scheduled/documented in this visit Assess POC Synopsis Disciplines: Physical Therapy 08/21/2024 Resolved on 09/17/2024 2 goals linked to scheduled/documented interventions 2 goal interventions scheduled/documented in this visit Home Exercise Program Disciplines: Physical Therapy 08/21/2024 Resolved on 09/17/2024 1 goal linked to scheduled/documented intervention 1 goal intervention scheduled/documented in this visit Disease-Specific Rehabilitation Disciplines: Physical Therapy 08/21/2024 Resolved on 09/17/2024 3 goals linked to scheduled/documented interventions 3 goal interventions scheduled/documented in this visit Mobility Disciplines: Physical Therapy 08/21/2024 Resolved on 09/17/2024 1 goal linked to scheduled/documented intervention 1 goal intervention scheduled/documented in this visit Goals Goal Associated Problem Outcome Goal Met? Visit Notes Wound/Incision Wound Care and/or Skin Problems Completed Yes No signs or symptoms of infection noted this date. Patient was instructed to reach out to her surgeon's office as she has a stitch still present. Rehospitalization Risk Assess and Instruct Home Visit Completed Yes Low current rehospitalization risk. Pain Assess and Instruct Home Visit Partially Met No 4/10 pain reported at today's visit. Medications Assess and Instruct Home Visit Completed Yes Patient is independent with medication management, Home Care Plan Assess and Instruct Home Visit Completed Yes Patient/caregiver are independent with emergency response plan. Patient remains safe in their home and maintains a safe environment to receive care. Patient/caregiver verbalize understanding of fall risk reduction techniques. Patient/caregiver are independent with medication regimen. Patient/caregiver verbalize understanding of safe discharge plan. Depression Assessment Assess POC Synopsis Completed Yes Patient/caregiver verbalize understanding of signs/symptoms of depression. Patient/caregiver can identify crisis plan and verbalize when to implement. Diabetic Foot Education Assess POC Synopsis Completed Yes Patient/caregiver demonstrate 100% teachback of education on maintaining skin integrity to decrease risk of diabetic complications. Home Exercise Program Home Exercise Program Completed Yes Patient is independent with HEP. Post-Surgical Disease-Specific Rehabilitation Completed Yes Patient/caregiver demonstrate 100% teach-back of postoperative care education to reduce risk of complications. Pulmonary Disease-Specific Rehabilitation Completed Yes Patient maintained Sp02 > 88% with activity in order to improve ADL safety this date. Patient demonstrates independent pacing techniques and self-monitoring of fatigue and SOB with activity. Patient demonstrates improved posture at rest and with activity to maximze efficiency of breathing patterns as demonstrated by maintaining Sp02 > 88%. Balance Disease-Specific Rehabilitation Completed Yes Robertatent denied recent falls and completed the TUG in under 13 seconds this date. Mobility Mobility Completed Yes Patient completed 10 reps with the 30 second sit-stand test this date and demonstrated independent mobility in the home. Interventions Intervention Associated Problem/Goal Status Variance Visit Notes Wound/Incision Care Problem:Wound Care and/or Skin Problems Goal:Wound/Incision Completed Wound is stable. Educated patient on hand hygiene and infection control techniques, signs/symptoms of infection and when to call or report concerns to home health or provider. patient able to verbalize teach back of hand hygiene, signs/symptoms of infection and when to call or report concerns to home health or provider. patient able to return demonstration of hand hygiene and infection control techniques. patient independent with wound education. Wound/Incision Monitoring Problem:Wound Care and/or Skin Problems Goal:Wound/Incision Completed Educated patient on hand hygiene and infection control techniques, signs/symptoms of infection and when to call or report concerns to home health or provider. patient able to verbalize teach back of hand hygiene, signs/symptoms of infection and when to call or report concerns to home health or provider. Rehospitalization Risk Problem:Assess and Instruct Home Visit Goal:Rehospitalization Risk Completed patient educated on stop light education tool, vital sign log, 23/05 home health call center. patient response to provided education WNL Further intervention/collabor ation needs if applicable N/A Pain Management Problem:Assess and Instruct Home Visit Goal:Pain Completed Patient reports: 02/07 pain reported this date. Clinician taught: patient Clinician instructed on: importance of daily compliance with HEP. Patient/caregiver is able to teach back 100% of instruction. Instruct Medication Management Problem:Assess and Instruct Home Visit Goal:Medications Completed Home Visit Med Education: Medication list reconciled. Medication profile and in-home medication list updated with appropriate changes. Discrepanices noted during home visit: none Instructed patient on dosing, purpose, and side effects. Medication education completed today on listed medication(s). Patient/caregiver is able to teach back 100% of instruction. Falls Problem:Assess and Instruct Home Visit Goal:Home Care Plan Completed Clinician taught: patient 4-10 Patient IS at risk for falls (a score of 6 or greater is a predictor of future falls) and clinician instructed: assistive device usage. Patient/caregiver was able to demonstrate 100% via teachback Safety Problem:Assess and Instruct Home Visit Goal:Home Care Plan Completed Assessed patient vulnerability and home safety risks: Patient is currently safe in the home. Equipment reviewed use of walker reviewed Patient at risk for harm or abuse No Family members involved in safety plan for Level 2 or 3 Not this date. Plan for Next Visit Problem:Assess and Instruct Home Visit Goal:Home Care Plan Completed Follow up education for next visit: N/A, patient discharged this date to [facility]. Skilled intervention at next visit: N/A Therapy Reassessment Problem:Assess and Instruct Home Visit Goal:Home Care Plan Completed Functional reassessment findings compared to prior assessment: Patient completed the TUG in under 13 seconds and completed 10 reps with the 30 second sit-stand test this date. Progress towards goals: Patient has demonstrated progress toward listed goals and is independent with her HEP. Updates made to careplan. Assess and Address Symptoms of Depression Problem:Assess POC Synopsis Goal:Depression Assessment Completed Assess Feet and Provide Diabetic Foot Education Problem:Assess POC Synopsis Goal:Diabetic Foot Education Completed Home Exercise Program Problem:Home Exercise Program Goal:Home Exercise Program Completed Patient reports: Cidra with HEP. Clinician taught: patient Clinician instructed on: Importance of completing her HEP 2-3 times per day, each day. Patient/caregiver is able to teach back 100% of instruction. Instruct Post-op Care Problem:Disease-Specif ic Rehabilitation Goal:Post-Surgical Completed Patient reports: Importance of continued compliance with post-op care/instructions. Clinician taught: patient Clinician instructed on: importance of continued compliance with post-op care/instructions. Patient/caregiver is able to teach back 100% of instruction. Pulmonary Problem:Disease-Specif ic Rehabilitation Goal:Pulmonary Completed Patient reports: Cidra with energy conservation and pacing activities. Clinician taught: patient Clinician instructed on: Need/importance of continued daily compliance with energy conservation. Patient/caregiver is able to teach back 100% of instruction. Balance/Neuromuscular Re-education Problem:Disease-Specif ic Rehabilitation Goal:Balance Completed Patient reports: No recent falls. Clinician taught: patient Clinician instructed on: Importance of continued walker use Patient/caregiver is able to teach back 100% of instruction. Instruct Mobility Problem:Mobility Goal:Mobility Completed Patient reports: Cidra with mobility in the home with use of AD. Clinician taught: patient Clinician instructed on: Need/importance of ambulating every 1-2 hours during the day, each day. Patient/caregiver is able to teach back 100% of instruction. [facility] Actions Homebound Status Criteria 1: Assistive Device(s): walker Needs assistance of at least 1 to leave home Criteria 2: Patient confined to home due to s/p back surgery, left leg pain, weakness Type of Home: bed/bath on 1st floor Narratives vs summary: Derrek castellanos medic in the instructed on wound/daily dressing chg and to report wound separation, redness, drainage. Pt states she lost a bag coming home from hospital that had discharge instructions, ICS and several bottles of medications. Pt does not have amlodipine in home, pc to [facility] and pt filled a 90 day supply about 30 days ago. Instructed pt to have family check car she came home in and she called son who had already checked but will check again, also instructed family to check closets and around furniture looking for bag. PC made to [facility] pharmacy and to 4th floor nurses station since pt thinks she left it there, 4th floor checked her room and it was not there and they were checking with security for lost and found. Also found pt was out of eliquis which she was to take 2 tabs 2 x's daily for 6 days to end tomorrow 08/30 and then start [address] Fraga's office notified that pt was to be on Eliquis 10mg 2x's daily x 6 days to [place] tomorrow and she already finished Rx. Also [facility] never got Rx for 1 Eliquis daily and requested that they call it in. During vs [facility] main pharmacy in [place] called asking if pt wanted to be set up on automatic refills which she refused but they were able to request insurance to over ride Rx for amlodipine and will be able to give pt another 90 day supply. This SN called HH reception manager Garima Whalen about pt losing her medications possibly at [facility] and asked who to reach out to. Garima instructed this SN to have pt call risk management at [facility]. Instructed pt and if Lyndon sullivan doesn't call back stating they have found her missing medications to call and report to risk management. [facility] Actions Homebound Status Criteria 1: Assistive Device(s): Walker Needs assistance of at least 1 to leave home Criteria 2: Patient confined to home due to limited ambulation related to recent back surgery. and unsteady gait/poor balance Type of Home: 2-story house, handrails, can live on one level [facility] Actions Homebound Status Criteria 1: Assistive Device(s): Walker Needs assistance of at least 1 to leave home Criteria 2: Patient confined to home due to limited ambulation related to recent back surgery. and unsteady gait/poor balance Type of Home: 2-story house, handrails, can live on one level [facility] Actions Patient presents to OT after hospitalization for back surgery. Occupational therapy evaluation only performed this date. Patient is at baseline for her ADL's/IADL's. [facility] Actions Homebound Status Criteria 1: Assistive Device(s): Walker Needs assistance of at least 1 to leave home Criteria 2: Patient confined to home due to limited ambulation related to recent back surgery. and unsteady gait/poor balance Type of Home: 2-story house, handrails, can live on one level [facility] Narratives assisted pt in setting up [facility] Actions Homebound Status Criteria 1: Assistive Device(s): Walker Needs assistance of at least 1 to leave home Criteria 2: Patient confined to home due to limited ambulation related to recent back surgery. and unsteady gait/poor balance Type of Home: 2-story house, handrails, can live on one level Narratives pt. reports increased pain a nd requests decreased activity. [facility] Actions Homebound Status Criteria 1: Assistive Device(s): Walker Needs assistance of at least 1 to leave home Criteria 2: Patient confined to home due to limited ambulation related to recent back surgery. and unsteady gait/poor balance Type of Home: 2-story house, handrails, can live on one level [facility]* Actions Homebound Status Criteria 1: Assistive Device(s): Walker Needs assistance of at least 1 to leave home Criteria 2: Patient confined to home due to limited ambulation related to recent back surgery. and unsteady gait/poor balance Type of Home: 2-story house, handrails, can live on one level [facility] Actions Homebound Status Criteria 1: Assistive Device(s): Walker Needs assistance of at least 1 to leave home Criteria 2: Patient confined to home due to limited ambulation related to recent back surgery. and unsteady gait/poor balance Type of Home: 2-story house, handrails, can live on one level [facility]* Narratives assisted pt in setting up [facility]* Actions Start of care visit complete d Narratives [facility] HomeHealth Clinical Sum matthew Patient's goals for HomeCare: Patient reports goals of improving strength, mobility, and endurance in order to get back to negotiating steps in the home and performing yard work next year. What skill(s) will be provided by your discipline: Patient to receive ther ex/act, neuro reeducation, endurance act, transfer/gait/stair training, manual therapy, and HEP education. Rehab Potential: good HISTORY OF PRESENT ILLNESS LEADING UP TO HOME CARE ADMISSION (including facility stays and dates): Patient is a 69-year-old female status post multiple rib fractures. Patient experienced the rib fractures when she fell at her home on 08/05/24. Patient was admitted to [facility] on 08/05/24 and transferred to [facility] on 08/06/24. Patient returned home on 08/14/24 per report. Patient underwent surgery on 08/09/24 for Right posttraumatic chest wall reconstruction,. Right fixation of ribs 4 through, right intercostal nerve block of levels 4, 5, 6, and 7, right tube thoracostomy. Side/site of body affected (dominant hand if neuro diagnosis): right side Comorbidities with potential to affect the Plan of Care: HTN, DM and Asthma Additional Disciplines requested: N/A Disciplines referred and declined by patient/caregiver: OT Prior functional level: Patient reports she required only intermittent assistance with ADL's prior to recent fall. Current functional level: Patient is receiving daily assistance with ADL's from spouse and son. Fall Risk: MAHC-10 score 8, 4-10 Patient IS at risk for falls (a score of 6 or greater is a predictor of future falls) Medication Issues: Patient denied medication side effects or issues and was instructed to contact her physician regarding medication questions or concerns. Wound summary: Incision site is healing well and WNL. HOMEBOUND STATUS Criteria 1: Assistive Device(s): Walker Needs assistance of at least 1 to leave home Criteria 2: Patient confined to home due to limited ambulation related to weakness, unsteady gait/poor balance and dyspnea with exertion [facility] Actions HOMEBOUND STATUS Criteria 1: Assistive Device(s): Walker Needs assistance of at least 1 to leave home Criteria 2: Patient confined to home due to limited ambulation related to weakness, unsteady gait/poor balance and dyspnea with exertion [facility] Start of care visit complete d N[facility]atives [facility] Patient's goals for HomeCare: Patient reports goals of improving strength, mobility, and endurance in order to get back to negotiating steps in the home and performing yard work next year. What skill(s) will be provided by your discipline: Patient to receive ther ex/act, neuro reeducation, endurance act, transfer/gait/stair training, manual therapy, and HEP education. Rehab Potential: good HISTORY OF PRESENT ILLNESS LEADING UP TO HOME CARE ADMISSION (including facility stays and dates): Patient is a 69-year-old female status post multiple rib fractures. Patient experienced the rib fractures when she fell at her home on 08/05/24. Patient was admitted to [facility] on 08/05/24 and transferred to [facility] on 08/06/24. Patient returned home on 08/14/24 per report. Patient underwent surgery on 08/09/24 for Right posttraumatic chest wall reconstruction,. Right fixation of ribs 4 through, right intercostal nerve block of levels 4, 5, 6, and 7, right tube thoracostomy. Side/site of body affected (dominant hand if neuro diagnosis): right side Comorbidities with potential to affect the Plan of Care: HTN, DM and Asthma Additional Disciplines requested: N/A Disciplines referred and declined by patient/caregiver: OT Prior functional level: Patient reports she required only intermittent assistance with ADL's prior to recent fall. Current functional level: Patient is receiving daily assistance with ADL's from spouse and son. Fall Risk: MAHC-10 score 8, 4-10 Patient IS at risk for falls (a score of 6 or greater is a predictor of future falls) Medication Issues: Patient denied medication side effects or issues and was instructed to contact her physician regarding medication questions or concerns. Wound summary: Incision site is healing well and WNL. HOMEBOUND STATUS Criteria 1: Assistive Device(s): Walker Needs assistance of at least 1 to leave home Criteria 2: Patient confined to home due to limited ambulation related to weakness, unsteady gait/poor balance and dyspnea with exertion [facility] Actions Start of care visit complete d N[facility]atives [facility] Patient's goals for HomeCare: Patient reports goals of improving strength, mobility, and endurance in order to get back to negotiating steps in the home and performing yard work next year. What skill(s) will be provided by your discipline: Patient to receive ther ex/act, neuro reeducation, endurance act, transfer/gait/stair training, manual therapy, and HEP education. Rehab Potential: good HISTORY OF PRESENT ILLNESS LEADING UP TO HOME CARE ADMISSION (including facility stays and dates): Patient is a 69-year-old female status post multiple rib fractures. Patient experienced the rib fractures when she fell at her home on 08/05/24. Patient was admitted to [facility] on 08/05/24 and transferred to [facility] on 08/06/24. Patient returned home on 08/14/24 per report. Patient underwent surgery on 08/09/24 for Right posttraumatic chest wall reconstruction,. Right fixation of ribs 4 through, right intercostal nerve block of levels 4, 5, 6, and 7, right tube thoracostomy. Side/site of body affected (dominant hand if neuro diagnosis): right side Comorbidities with potential to affect the Plan of Care: HTN, DM and Asthma Additional Disciplines requested: N/A Disciplines referred and declined by patient/caregiver: OT Prior functional level: Patient reports she required only intermittent assistance with ADL's prior to recent fall. Current functional level: Patient is receiving daily assistance with ADL's from spouse and son. Fall Risk: MAHC-10 score 8, 4-10 Patient IS at risk for falls (a score of 6 or greater is a predictor of future falls) Medication Issues: Patient denied medication side effects or issues and was instructed to contact her physician regarding medication questions or concerns. Wound summary: Incision site is healing well and WNL. HOMEBOUND STATUS Criteria 1: Assistive Device(s): Walker Needs assistance of at least 1 to leave home Criteria 2: Patient confined to home due to limited ambulation related to weakness, unsteady gait/poor balance and dyspnea with exertion [facility] Actions HOMEBOUND STATUS Criteria 1: Assistive Device(s): Walker Needs assistance of at least 1 to leave home Criteria 2: Patient confined to home due to limited ambulation related to weakness, unsteady gait/poor balance and dyspnea with exertion [facility] Actions HOMEBOUND STATUS Criteria 1: Assistive Device(s): Walker Needs assistance of at least 1 to leave home Criteria 2: Patient confined to home due to limited ambulation related to weakness, unsteady gait/poor balance and dyspnea with exertion [facility] Actions HOMEBOUND STATUS Criteria 1: Assistive Device(s): Walker Needs assistance of at least 1 to leave home Criteria 2: Patient confined to home due to limited ambulation related to weakness, unsteady gait/poor balance and dyspnea with exertion [facility] Actions HOMEBOUND STATUS Criteria 1: Assistive Device(s): Walker Needs assistance of at least 1 to leave home Criteria 2: Patient confined to home due to limited ambulation related to weakness, unsteady gait/poor balance and dyspnea with exertion [facility] Actions Homebound Status Criteria 1: Assistive Device(s): Walker Needs assistance of at least 1 to leave home Criteria 2: Patient confined to home due to limited ambulation related to weakness and unsteady gait/poor balance Type of Home: 2-story house, can live on one level Narratives Patient has completed the [facility] PT plan of care at this time and is independent with her HEP. Patient discharged this date to [facility]. [facility]* Procedure Summary Procedure Name Responsible Anesthesiologist Anesthesia Start Time Anesthesia Stop Time Decompression Thoracic 12-Lumbar1, [id number] 1 Discectomy, Interbody fusion, fixation Thoracic 10-Lumbar5, CT BUCK, Local Bone, Posteriorlateral Fusion Thoracic 10-Lumbar2, cement augmentation Thoracic 10 (Spine Lumbar) Ray Chapman, JULIO 08/18/23 1000 08/18/23 1853 Events Date Time Event Comment 08/18/2023 0826 1000 AN Equip Check 1000 An Start 1000 Patient Verification 1000 An Start Data 1006 An Induction 1006 An Intubation 1030 Anesthesia Ready 1844 [facility] OR 05 1852 An Extubation 1852 an stop data 185 Handoff I completed my SBAR handoff to the receiving nurse in the PACU/unit. 1853 An Stop Meds Name Total fentaNYL 500 mcg lidocaine 2% 60 mg propofol 150 mg rocuronium 60 mg ondansetron 4 mg dexamethasone 8 mg HYDROmorphone 1 mg ceFAZolin (ANCEF) IVPB 2 g (premix) 6,00 0 mg sugammadex 200 mg lactated Ringers infusion 1,500 mL sodium chloride 1,300 mL * Agents No agents on file. * Blood No blood administrations on file. Lines, Drains, and Airways Type Details Placement Removal Wound 08/18/23; 1256; Inci alivia; Thoracic Spine, Lumbar Spine; Surgical Dianne; Sutures, Steri-strip; 4x4, ABD, medipore tape 08/18/23 1256 by Mary Ramirez RN Peripheral IV Placement Date: 07/31 07/23; Placement Time: 918; Orientation: Anterior, Left, Proximal; Location: Forearm; Site Prep: Alcohol; Inserted by: [email or web address]; Patient Tolerance: Tolerated well; Removal Date: 08/22/23; Removal Time: 2237; Removal Reason: Site change 08/18/23918 by Urbano Fong RN 08/22/232237 by Patience Britt RN ETT Placement Date: 07/31 07/23; Placement Time: 104 (created via procedure documentation); Mask Ventilation: Ventilated by mask; Type: Cuffed, Oral; Tube Size: 7 mm; Grade View: 1; Insertion Attempts: 1; Removal Date: 08/18/23; Removal Time: 185108/18/23 104 by Ray Chapman INSPECTING AND TESTING LEAD HAND 08/18/231851 by Ray Chapman CRNA Arterial Line Placement Date: 07/31 07/23; Placemnt Time: 1115 (created via procedure documentation); Orientation: Left; Location: Radial; Site Prep: Chlorhexidine ; Insertion Attempts: 1; Pt Tolerance: Tolerated well; Removal Date: 08/18/23; Removal Time: 2022; Removal Reason: Per order 08/18/23 1116 by Ray Chapman CRNA 08/18/232022 by Natalya Reyes RN Peripheral IV Placement Date: 07/31 07/23; Placement Time: 1116 (created via procedure documentation); Orientation: Right; Location: Hand; Site Prep: Alcohol; Removal Date: 08/22/23 (patient unsure) 08/18/23 1117 by Ray Chapman, INSPECTING AND TESTING LEAD HAND 08/22/23 0000 by Ofelia Martins RN Urethral Catheter Placement Date: 07/31 07/23; Placement Time: 135; Inserted by: Marcia Ramirez RN; Size: 16 Fr.; Balloon Size: 10 mL; Urine Returned: Yes; Removal Date: 08/19/23; Removal Time: 0505; Removal Reason: Per protocol 08/18/23 1357 by Mary Ramirez JUAN 08/19/23 0505 by Laurie Ruiz, JUAN Closed/Suction Drain 08/18/23; 1738; Inf erior, Left; Back; 10 Fr.; Round; Accordion 08/18/23 1738 by Khushboo Potter RN 08/25/23 0000 by Latricia Roblero RN documented in this encounter [facility] for referral (narrative)* Consultation (Routine) - New Request Specialty Diagnoses / Procedures Referred By Contac t Referred To Contact Orthopaedics Diagnoses Left shoulder pain, unspecified chronicity Raoul Lundy MD [address] [place] [address] [place] [address] Andrez Lujan MD [address] [place] [phone] Referral ID Status Reason Start Date Expiration Date V isits Requested Visits Authorized [id number] New Request 10/04/2022 10/29/2023 1 1 * Consultation (Routine) - Schedule Outgoing - Transfer of Care Specialty Diagnoses / Procedures Referred By Contac t Referred To Contact Neurologic Surgery Diagnoses Cervical spine pain Raoul Lundy MD [address] [place] [address] [place] [address] Stevie Thurston MD [address] [place] [address] Referral ID Status Reason Start Date Expiration Date V isits Requested Visits Authorized [id number] Schedule Outgoing - Transfer of Care 10/04/2022 10/29/2023 1 1 * Radiology (Routine) - New Request Specialty Diagnoses / Procedures Referred By Contac t Referred To Contact Diagnoses Osteoarthritis of both sacroiliac joints Pain of both sacroiliac joints Procedures US IMAGING FOR ORTHO Raoul Lundy MD [address] [place] [address] [place] [address] Referral ID Status Reason Start Date Expiration Date V isits Requested Visits Authorized [id number] New Request 10/04/2022 10/29/2023 1 1 [facility] for referral (narrative)* Consultation (Routine) - New Request Specialty Diagnoses / Procedures Referred By Contac t Referred To Contact Multispecialty Diagnoses Osteoarthritis of both sacroiliac joints Pain of both sacroiliac joints Raoul Lundy MD [address] [place] [address] Referral ID Status Reason Start Date Expiration Date V isits Requested Visits Authorized [id number] New Request 12/27/2022 01/21/2024 1 1 [facility] for referral (narrative)* Consultation (Routine) - Pending Review Specialty Diagnoses / Procedures Referred By Contac t Referred To Contact Orthopaedics Diagnoses Nontraumatic subluxation of extensor tendon at metacarpophalangeal joint of right hand Raoul Lundy MD [address] [place] [id number] Jose Gaona MD [address] [place] [address] Referral ID Status Reason Start Date Expiration Date V isits Requested Visits Authorized [id number] Pending Review 02/22/2023 03/18/2024 1 1 [facility] for referral (narrative)* Consultation (Routine) - Schedule Outgoing - Transfer of Care Specialty Diagnoses / Procedures Referred By Contac t Referred To Contact Neurologic Surgery Diagnoses Osteoarthritis of both sacroiliac joints Raoul Lundy MD [address] [place] [address], [place] [address] Stevie Thurston MD [address] [place] [address] Referral ID Status Reason Start Date Expiration Date V isits Requested Visits Authorized [id number] Schedule Outgoing - Transfer of Care 03/31/2023 04/24/2024 1 1 * Radiology (Routine) - New Request Specialty Diagnoses / Procedures Referred By Contac t Referred To Contact Diagnoses Osteoarthritis of both sacroiliac joints Pain of both sacroiliac joints Procedures US IMAGING FOR ORTHO Raoul Lundy MD [address] [place] [address] [place] [address] Referral ID Status Reason Start Date Expiration Date V isits Requested Visits Authorized [id number] New Request 03/30/2023 04/23/2024 1 1 [facility] for referral (narrative)* Diagnostic Procedure Only (Routine) - Pending Review Specialty Diagnoses / Procedures Referred By Contac t Referred To Contact XR IMAGING Diagnoses Left shoulder pain, unspecified chronicity Procedures XR SHOULDER GENERAL 3V OR MORE AP/TRUE AP/OTHER LEFT RADEX SHOULDER COMPLETE MINIMUM 2 VIEWS Giacomo Vanessa MD [address] [place] [address] [place] [address] Referral ID Status Reason Start Date Expiration Date Visits Requested Visits Authorized [id number] Pending Review Auto-Generat ed Referral 03/14/2024 04/13/2025 1 1 [facility] for referral (narrative)* Diagnostic Procedure Only (Routine) - Closed Specialty Diagnoses / Procedures Referred By Contac t Referred To Contact XR IMAGING Diagnoses Pain Procedures XR HIP GENERAL 3V PELV/AP/LAT LEFT RADEX HIP UNILATERAL WITH PELVIS 2-3 VIEWS Zafar Faith DO [address] [facility] [address] [place] [address] [place] [address] Referral ID Status Reason Start Date Expiration Date V isits Requested Visits Authorized [id number] Closed Auto-Generate d Referral 04/21/2023 05/20/2024 1 1 [facility] for referral (narrative)No reason for referral information availableWMiddletown [facility] Work Phone[facility] N[facility]* Diagnostic Procedure Only (Routine) - Closed Specialty Diagnoses / Procedures Referred By Contac t Referred To Contact XR IMAGING Diagnoses Pain Procedures XR HIP GENERAL 3V PELV/AP/LAT LEFT RADEX HIP UNILATERAL WITH PELVIS 2-3 VIEWS Zafar Faith DO [address] [facility] [address] [place] [id number] [place] [address] Referral ID Status Reason Start Date Expiration Date V isits Requested Visits Authorized [id number] Closed Auto-Generate d Referral 04/21/2023 05/20/2024 1 1 [facility] for visit Narrative* Auth/Cert (Routine) Specialty Diagnoses / Procedures Referred By Contac t Referred To Contact Referral ID Status Reason Start Date Expiration Date Visits Re quested Visits Authorized [id number] [address] [facility] for visit Narrative* Evaluate and Treat (Routine) - Closed Specialty Diagnoses / Procedures Referred By Contac t Referred To Contact Gastroenterology Diagnoses Early satiety Bhanu rBice MD [address] [place] [phone] Phone: tel: fax: Ruiz Alcantar MD [address] [place] [phone] Phone: tel: fax: Referral ID Status Reason Start Date Expiration Date V isits Requested Visits Authorized [id number] Closed Specialty Services Required/Gloria ent's Best Interest 04/17/2025 04/17/2026 1 1 [facility] Assessments Diagnosis Primary osteoarthritis of ri ght hip Status post total replacemen t of right hip Diagnosis Encounter for long-term opia te analgesic use - Primary Encounter for long-term (current) use of other medications Postlaminectomy syndrome of lumbar region Postlaminectomy syndrome, lumbar region Diagnosis Hip osteoarthritis - Primary Primary osteoarthritis of ri ght hip Benign hypertension Essential hypertension, benign Chronic low back pain Lumbago AYO (obstructive sleep apnea ) Obstructive sleep apnea (adult) (pediatric) Restless legs syndrome Restless legs syndrome (RLS) Acute blood loss as cause of postoperative anemia Diagnosis Preop testing - Primary Unspecified pre-operative examination Primary osteoarthritis of ri ght hip Pre-operative cardiovascular examination Essential hypertension with goal blood pressure less than 130/80 Chronic obstructive pulmonar y disease, unspecified COPD type (HCC) Depression, unspecified depr ession type Anxiety Anxiety state, unspecified RLS (restless legs syndrome) Restless legs syndrome (RLS) AYO (obstructive sleep apnea ) Obstructive sleep apnea (adult) (pediatric) Obesity (BMI 30-39.9) Diagnosis Lumbar stenosis with neuroge venessa claudication - Primary Diagnosis Spinal stenosis of lumbar re gion with neurogenic claudication Diagnosis Encounter for long-term opia te analgesic use - Primary Encounter for long-term (current) use of other medications Generalized osteoarthrosis, involving multiple sites Postlaminectomy syndrome of lumbar region Postlaminectomy syndrome, lumbar region Diagnosis Degeneration of lumbar inter vertebral disc - Primary Degeneration of lumbar or lumbosacral intervertebral disc Preop testing Unspecified pre-operative examination Degenerative disc disease at L5-S1 level Pre-operative cardiovascular examination AYO (obstructive sleep apnea ) Obstructive sleep apnea (adult) (pediatric) Severe persistent asthma, un specified whether complicated Obesity (BMI 30.0-34.9) Postlaminectomy syndrome of lumbar region Postlaminectomy syndrome, lumbar region History of cardiomyopathy Personal history of other diseases of circulatory system Restless legs syndrome Restless legs syndrome (RLS) Depression, unspecified depr ession type Benign hypertension Essential hypertension, benign Migraine without status migr ainosus, not intractable, unspecified migraine type Need for prophylactic measur e Need for unspecified prophylactic measure Diagnosis Generalized osteoarthrosis, involving multiple sites - Primary Encounter for long-term use of opiate analgesic Encounter for long-term (current) use of other medications Diagnosis Degeneration of intervertebr al disc of cervical region - Primary Generalized osteoarthrosis, involving multiple sites Encounter for long-term use of opiate analgesic Encounter for long-term (current) use of other medications Diagnosis Status post total replacemen t of right hip Diagnosis Encounter for long-term opia te analgesic use - Primary Encounter for long-term (current) use of other medications Postlaminectomy syndrome of lumbar region Postlaminectomy syndrome, lumbar region Diagnosis Osteoarthritis of multiple j oints, unspecified osteoarthritis type Diagnosis Osteoarthritis of multiple j oints, unspecified osteoarthritis type Diagnosis Osteoarthritis of multiple j oints, unspecified osteoarthritis type Diagnosis AYO on CPAP - Primary Vocal cord paralysis, unilat eral complete Unilateral complete paralysis of vocal cords or larynx Dysphasia Other speech disturbance Laryngeal pachyderma Gastroesophageal reflux dise ase, esophagitis presence not specified Diagnosis Encounter for long-term opiate analgesic use- Primary Encounter for long-term (current) use of other medications Postlaminectomy syndrome of lumbar region Postlaminectomy syndrome, lumbar region Diagnosis Lumbosacral radiculopathy Thoracic or lumbosacral neuritis or radiculitis, unspecified Diagnosis Encounter for monitoring opioid maintenance therapy- Primary Postlaminectomy syndrome of lumbar region Postlaminectomy syndrome, lumbar region Lumbar stenosis with neurogenic claudication Osteoarthritis of multiple joints, unspecified osteoarthritis type Diagnosis Encounter for long-term use of opiate analgesic- Primary Encounter for long-term (current) use of other medications Postlaminectomy syndrome of lumbar region Postlaminectomy syndrome, lumbar region Lumbar stenosis with neurogenic claudication Diagnosis History of falling DDD (degenerative disc disease), lumbar Degeneration of lumbar or lumbosacral intervertebral disc Diagnosis History of falling DDD (degenerative disc disease), lumbar Degeneration of lumbar or lumbosacral intervertebral disc Diagnosis History of falling DDD (degenerative disc disease), lumbar Degeneration of lumbar or lumbosacral intervertebral disc Diagnosis History of falling DDD (degenerative disc disease), lumbar Degeneration of lumbar or lumbosacral intervertebral disc Diagnosis Dizziness and giddiness Diagnosis Encounter for long-term use of opiate analgesic Encounter for long-term (current) use of other medications Postlaminectomy syndrome of lumbar region Postlaminectomy syndrome, lumbar region Diagnosis Balance disorder Diagnosis Postlaminectomy syndrome of lumbar region Postlaminectomy syndrome, lumbar region Encounter for long-term use of opiate analgesic Encounter for long-term (current) use of other medications Diagnosis Encounter for long-term use of opiate analgesic- Primary Encounter for long-term (current) use of other medications Postlaminectomy syndrome of lumbar region Postlaminectomy syndrome, lumbar region Diagnosis Rectocele- Primary 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 Diagnosis Cervical spinal stenosis Spinal stenosis in cervical region Spinal stenosis, lumbar region, with neurogenic claudication Diagnosis Postlaminectomy syndrome of lumbar region Postlaminectomy syndrome, lumbar region Diagnosis Lumbar pain Lumbago Diagnosis Paresthesias- Primary Disturbance of skin sensation Bilateral carpal tunnel syndrome Carpal tunnel syndrome Cervical stenosis of spinal canal Spinal stenosis in cervical region Diagnosis History of falling DDD (degenerative disc disease), lumbar Degeneration of lumbar or lumbosacral intervertebral disc Diagnosis Neck pain- Primary Cervicalgia Diagnosis Vertigo- Primary Dizziness and giddiness Non-intractable vomiting with nausea, unspecified vomiting type Diagnosis Lumbar pain- Primary Lumbago Diagnosis Spinal stenosis in cervical region Diagnosis Burning pain Generalized pain Diagnosis Protrusion of cervical intervertebral disc C4-5 with stenosis- Primary Neck pain Cervicalgia Diagnosis Displacement of cervical intervertebral disc without myelopathy- Primary Preop testing- Primary Unspecified pre-operative examination Displacement of cervical intervertebral disc without myelopathy Diagnosis Displacement of cervical intervertebral disc without myelopathy- Primary Displacement of cervical intervertebral disc without myelopathy Discharge Instructions * Discharge Instr - PHARMACY - Liza Santiago CPhT - 02/27/2018 8:26 AM EDT There may be medications on your list that you were prescribed or previously taking but you said you are no longer taking. These medications may still be important for your health. Please discuss these with the person who prescribed the medication(s) to you. * Zoey Hathaway CNP - 02/27/2018 HIP REPLACEMENT INSTRUCTIONS Refer to your Hip Replacement Guide for more information. Activity -Follow hip precautions at all times until advised otherwise -Use walker/crutches at all times -Wear elastic stockings for 30 days. May remove for bathing. -Your bed, chairs and toilet must be 21 inches or higher. Use toilet seat director of athletics and seat cushionas instructed. -Walk 3-4 times a day, gradually increasing distance -No driving until approved by your doctor -For swelling of the legs, elevate on pillows, toes above the heart level -Sit in a chair no more than 1 hour at a time. Then get up and walk around. Hip Precautions -Use abduction pillow when in bed for 1 month. -Do not cross legs. -Do not reach to your feet or bend past your knees. -Do not twist at the waist. -Do not sit in a recliner for 4 weeks. -Must sit on an elevated toilet seat for 4 weeks. -Do not lift your knee on the side of your surgery, higher than your hip. Incision Care -Keep incision clean and dry. -Do not use powder, lotions, creams, or ointments on your incision. -No tub baths, hot tubs, or swimming until approved by your doctor. -You may shower -A small amount of drainage is expected -Apply ice as needed for swelling and /or comfort especially after exercises. -For comfort, you can put a dressing over the incision. Additional Instructions: -Dietary Evaluation upon arrival to SNF/ECF if applicable. Resume hospital diet order until dietaryevaluation is complete -Continue Incentive Spirometry and/or cough and deep breathe 4 times a day for one week after discharge -To prevent constipation take Senna-S 8.6 mg 1 tabs BID, adjust dose to maintain 1-2 BMs a day while on narcotics. If no BM after 3 days notify physician. -No bisphosphate: for example, Fosamax, Actonel, Zometa, Boniva, for 1 month; may use calcitionin. -Home assessment and evaluation by Physical Therapy PRIOR to d/c from SNF/ECF if applicable. Call your doctor if you notice: -Signs of infection: redness, swelling, odor, or drainage from incision, fever above 101?F, chills -Edges of incision -Sudden, severe pain not relieved by medication -Loss or appetite, nausea or vomiting -Inability to urinate for more than 8 hours -You have any other questions or concerns Call the doctor right away if you: -Hear a pop or severe sudden pain at your hip -Inability to bear weight -Have excessive calf pain especially when walking -Have chest pain or shortness of breath, call 911 PT Orders -A&PROM -SLR -WBAT gait training WOUND CARE -Remove the dressing at home in 5 days. -You may shower. No need to cover incision. Pat dry. Otherwise keep clean and dry. -Keep ABD (5x9) dressing in place to cover incision if drainage is present. CONSTIPATION -Repetitive use of narcotic pain medicine after surgery is a very common cause of constipation. Thefollowing instructions are recommended: -Drink plenty of fluids. Eight glasses of water or juice per day are encouraged. -Start with Senokot-S 8.6-50 mg (yvjd-vzx-wagikao). This is a laxative/stool softener combination. Take 1-2 tablets twice a day until bowel movements are achieved. -If no success, add Milk of Magnesia (gcux-ngg-ysmfjwu). This is a laxative. Take 30-60 mL 1-2 times per day. Take no more than 60 mL in a 24-hr period. -If still no success, add Magnesium Citrate (bgkw-ghu-wmqtxeu). This is a strong laxative. Take 1/2-1 bottle 1-2 times per day. Take no more than one bottle in a 24-hr period. -If still no success, add Fleets enema (tnhw-uhq-oyhivgd). Follow instructions on package. -If still no success, call your primary care physician. PAIN MEDICINES (GENERAL) -You are being discharged home on opioid pain medicine. This may include Oxycodone, Hydrocodone, orDilaudid. -There is a new FDA Black Box warning for all opioid pain medication: Opioids are powerful narcoticpain medicines that can help manage pain when other treatments and medicines are not able to provide enough pain relief. However, even when used properly, opioids also carry serious risks, and they can be misused and abused, causing addiction, overdose, and . -These opioid medications should be used at the lowest dose possible, and for the shortest amount of time possible -If you have been diagnosed with sleep apnea or have been told you may have sleep apnea: Each of these medications can suppress your breathing and make your upper airway more collapsible. This may worsen sleep-disordered breathing, such as sleep apnea. As these medications also suppress your level of consciousness, you may not be able to protect your airway adequately. This may lead to disrupted breathing, suffocation or asphyxiation, and even . Use caution when taking pain medication, andtake the lowest dose possible. Talk to your primary care doctor soon after discharge, and be sure to wear your CPAP if you have been prescribed one. -Tell your doctor and pharmacist about ALL drugs you are taking. Do not take any previous medicinesunless your doctor is aware. This includes medicines or drugs that are prescribed, foze-tne-kgszrcm, or herbal supplements. -Do not mix these pain medicines with alcohol or sedating drugs, such as pills to help anxiety or sleeping, or illegal drugs. This greatly increases the risk for dangerous overdose. -Do not drive or do other tasks that require you to be alert until you see how this drug effects you. -Call your doctor if you are concerned and are having any of the following common side effects which can include: upset stomach, constipation, dizziness and sleepiness -You and your family should be aware of the signs of overdose. Call 911 right away if you notice slurred or drawling speech, poor balance, nodding off during conversation or activity or slowed, difficulty breathing. -If you misuse or abuse pain medicines you can become addicted to them. It is important to openly discuss your concerns with your doctor. -If you have been regularly taking a pain medicine for 7 days or more, you may experience a withdrawal reaction if you suddenly stop taking the medicine. Withdrawal symptoms such as flu like symptoms do not mean you are addicted- just that you stopped the medicine too quickly. Contact your doctorfor direction on how to slowly stop this medicine. -Keep your medicine securely stored at home. Store medicines where children can t see or reach them, for example, in a locked box or cabinet. -If you have left over medicine, a take-back program for disposal is a good way to remove the unwanted or unused medicines from the home and reduce the chance that others may accidentally take the medicine. Contact your [facility] or [facility] government's household trash and recycling service to see if there is a medicine take-back program in your community and learn about any special rules regarding which medicines can be taken back. You can also talk to your pharmacist to see if he or she knows of other medicine disposal programs in your area. in this encounter* Instructions* Paola Moeller RN - 06/10/2019 Dizziness: Care Instructions Your Care Instructions Dizziness is the feeling of unsteadiness or fuzziness in your head. It is different than having vertigo, which is a feeling that the room is spinning or that you are moving or falling. It is also different from lightheadedness, which is the feeling that you are about to faint. It can be hard to know what causes dizziness. Some people feel dizzy when they have migraine headaches. Sometimes bouts of flu can make you feel dizzy. Some medical conditions, such as heart problemsor high blood pressure, can make you feel dizzy. Many medicines can cause dizziness, including medicines for high blood pressure, pain, or anxiety. If a medicine causes your symptoms, your doctor may recommend that you stop or change the medicine.If it is a problem with your heart, you may need medicine to help your heart work better. If there is no clear reason for your symptoms, your doctor may suggest watching and waiting for a while to see if the dizziness goes away on its own. Follow-up care is a lee part of your treatment and safety. Be sure to make and go to all appointments, and call your doctor if you are having problems. It's also a good idea to know your test resultsand keep a list of the medicines you take. How can you care for yourself at home? If your doctor recommends or prescribes medicine, take it exactly as directed. Call your doctor if you think you are having a problem with your medicine. Do not drive while you feel dizzy. Try to prevent falls. Steps you can take include: ? Using nonskid mats, adding grab bars near the tub, and using night-lights. ? Clearing your home so that walkways are free of anything you might trip on. ? Letting family and friends know that you have been feeling dizzy. This will help them know how tohelp you. When should you call for help? Call 911 anytime you think you may need emergency care. For example, call if: You passed out (lost consciousness). You have dizziness along with symptoms of a heart attack. These may include: ? Chest pain or pressure, or a strange feeling in the chest. ? Sweating. ? Shortness of breath. ? Nausea or vomiting. ? Pain, pressure, or a strange feeling in the back, neck, jaw, or upper belly or in one or both shoulders or arms. ? Lightheadedness or sudden weakness. ? A fast or irregular heartbeat. You have symptoms of a stroke. These may include: ? Sudden numbness, tingling, weakness, or loss of movement in your face, arm, or leg, especially ononly one side of your body. ? Sudden vision changes. ? Sudden trouble speaking. ? Sudden confusion or trouble understanding simple statements. ? Sudden problems with walking or balance. ? A sudden, severe headache that is different from past headaches. Call your doctor now or seek immediate medical care if: You feel dizzy and have a fever, headache, or ringing in your ears. You have new or increased nausea and vomiting. Your dizziness does not go away or comes back. Watch closely for changes in your health, and be sure to contact your doctor if: You do not get better as expected. Where can you learn more? Log into your personal health record on [email or web address] and enter Q823 in the Education box to learn more about Dizziness: Care Instructions. Current as of: July 23, 2018 Content Version: [id number] [email or web address]. Care instructions adapted under license by your healthcare professional. If you have questions about a medical condition or this instruction, always ask your healthcare professional. [email or web address] disclaims any warranty or liability for your use of this information. Lightheadedness or Faintness: Care Instructions Your Care Instructions Lightheadedness is a feeling that you are about to faint or pass out. You do not feel as if you or your surroundings are moving. It is different from vertigo, which is the feeling that you or things around you are spinning or tilting. Lightheadedness usually goes away or gets better when you lie down. If lightheadedness gets worse, it can lead to a fainting spell. It is common to feel lightheaded from time to time. Lightheadedness usually is not caused by a serious problem. It often is caused by a short-lasting drop in blood pressure and blood flow to your head that occurs when you get up too quickly from a seated or lying position. Follow-up care is a lee part of your treatment and safety. Be sure to make and go to all appointments, and call your doctor if you are having problems. It's also a good idea to know your test resultsand keep a list of the medicines you take. How can you care for yourself at home? Lie down for 1 or 2 minutes when you feel lightheaded. After lying down, sit up slowly and remain sitting for 1 to 2 minutes before slowly standing up. Avoid movements, positions, or activities that have made you lightheaded in the past. Get plenty of rest, especially if you have a cold or flu, which can cause lightheadedness. Make sure you drink plenty of fluids, especially if you have a fever or have been sweating. Do not drive or put yourself and others in danger while you feel lightheaded. When should you call for help? Call 911 anytime you think you may need emergency care. For example, call if: You have symptoms of a stroke. These may include: ? Sudden numbness, tingling, weakness, or loss of movement in your face, arm, or leg, especially ononly one side of your body. ? Sudden vision changes. ? Sudden trouble speaking. ? Sudden confusion or trouble understanding simple statements. ? Sudden problems with walking or balance. ? A sudden, severe headache that is different from past headaches. You have symptoms of a heart attack. These may include: ? Chest pain or pressure, or a strange feeling in the chest. ? Sweating. ? Shortness of breath. ? Nausea or vomiting. ? Pain, pressure, or a strange feeling in the back, neck, jaw, or upper belly or in one or both shoulders or arms. ? Lightheadedness or sudden weakness. ? A fast or irregular heartbeat. After you call 911, the candy forming machine operator may tell you to chew 1 adult-strength or 2 to 4 low-dose aspirin. Wait for an ambulance. Do not try to drive yourself. Watch closely for changes in your health, and be sure to contact your doctor if: Your lightheadedness gets worse or does not get better with home care. Where can you learn more? Log into your personal health record on [email or web address] and enter X578 in the Education box to learn more about Lightheadedness or Faintness: Care Instructions. Current as of: July 23, 2018 Content Version: [id number] [email or web address]. Care instructions adapted under license by your healthcare professional. If you have questions about a medical condition or this instruction, always ask your healthcare professional. [email or web address] disclaims any warranty or liability for your use of this information. * Attachments The following attachments cannot be sent through Care Everywhere. * Vertigo (Kittitian) * Vertigo: Exercises (Kittitian) documented in this encounter Instructions * Patient Instructions - Ankit Marroquin MD - 02/17/2018 9:12 AM EDT Formatting of this note may be different from the original. Call the PAT office with any questions, changes to your medications or health state Preoperative Medication Instructions In preparation for surgery please continue all of your current medications with the following changes: Matthew Perez Home Medication Instructions Prior to Surgery AMI:[id number] Printed on:02/17/18 0912 Medication Information Take last dose on Take the morning of surgery Comment(s) albuterol (PROVENTIL HFA;VENTOLIN HFA) 90 mcg/actuation inhaler Inhale 2 puffs as needed for wheezing . Yes, if needed albuterol (PROVENTIL) 2.5 mg /3 mL (0.083 %) nebulizer solution Take 2.5 mg by nebulization daily as needed . Yes, if needed budesonide-formoterol (SYMBICORT) 80-4.5 mcg/actuation inhaler Inhale 2 puffs 2 (two) times a day. Yes clonazePAM (KLONOPIN) 1 MG tablet Take 1 tablet by mouth nightly TAKES 1-2 TABLETS. No EASIVENT HOLDING CHAMBER inhaler flu vaccine qs 2015 (FLUZONE QUAD) injection Sign this order in conjunction with the immunization order to satisfy [place] Board of Pharmacy Positive ID requirements for immunization orders. lidocaine (LIDODERM) 5 % patch Place 1 patch on the skin as needed Remove & Discard patch within 12 hours or as directed by MD. No lisinopril (PRINIVIL,ZESTRIL) 20 MG tablet Take 20 mg by mouth 2 (two) times a day TAKES 1 TABLET. Yes oxyCODONE-acetaminophen (PERCOCET) 10-325 mg per tablet Take 2 (two) tablets by mouth 3 (three) times a day (Days supply per fill: 30). Yes, if needed rOPINIRole (REQUIP) 2 MG tablet Take 2 mg by mouth nightly TAKES 2-3 TABLETS. No SUMAtriptan (IMITREX) 100 MG tablet Take 1 (one) tablet (100 mg total) by mouth as needed for migraine. Yes, if needed STOP Aspirin (and medications that contain aspirin, such as Chhaya Humarock, Pepto- Bismol, Anacin), antiinflammatory medications such as Advil, Motrin, Ibuprofen, Naproxen, Aleve, Chhaya Humarock, Pepto-Bismol, Anacin, Diclofenac, Voltaren, Daypro, Etodolac, Ketoprofen, Piroxicam, Relafen, Nabumetone, etc. Also discontinue Vitamin C, Vitamin E, [place]-3 Fatty Acid, Fish Oil or Lovaza, and all herbal medications. Take last dose on 02/20/2018. Tylenol (acetaminophen) is acceptable, but be careful to follow the label directions and do not usewith other pain medications. It is acceptable to continue a Multivitamin, Magnesium, Potassium, Iron supplement, Vitamin D, Calcium, or Vitamin B if you were already taking them. On the morning of surgery, with as little water as possible, ONLY take the medications listed abovein the column Take the morning of surgery. If you are using Eye Drops or Inhalers, please bring them to the hospital. If you have sleep apnea and have a CPAP/BIPAP device, please bring it with you the in this encounter* Patient Instructions - Miguel Mcmullen II, MD - 11/03/2017 3:29 PM EST Formatting of this note may be different from the original. Call the PAT office with any questions, changes to your medications or health state Preoperative Medication Instructions In preparation for surgery please continue all of your current medications with the following changes: Matthew Perez Home Medication Instructions Prior to Surgery AMI:[id number] Printed on:11/03/17 7166 Medication Information Take last dose on Take the morning of surgery Comment(s) albuterol (PROVENTIL HFA;VENTOLIN HFA) 90 mcg/actuation inhaler Inhale 2 puffs as needed for wheezing . If needed albuterol (PROVENTIL) 2.5 mg /3 mL (0.083 %) nebulizer solution Take 2.5 mg by nebulization daily as needed . If needed budesonide-formoterol (SYMBICORT) 80-4.5 mcg/actuation inhaler Inhale 2 puffs 2 (two) times a day. yes clonazePAM (KLONOPIN) 1 MG tablet Take 1 tablet by mouth nightly TAKES 1-2 TABLETS. As usual diclofenac sodium 1 % Gel Apply 2 g topically 4 (four) times a day. Stop today DULoxetine (CYMBALTA) 60 MG capsule Take 1 capsule (60 mg total) by mouth daily. yes DULoxetine (CYMBALTA) 60 MG capsule Take 60 mg by mouth 2 (two) times a day TAKES 1 TABLET . yes EASIVENT HOLDING CHAMBER inhaler n/a flu vaccine qs 2015 (FLUZONE QUAD) injection Sign this order in conjunction with the immunization order to satisfy [place] Board of Pharmacy Positive ID requirements for immunization orders. n/a lidocaine (LIDODERM) 5 % patch Place 1 patch on the skin daily Remove & Discard patch within 12 hours or as directed by MD . As usual lisinopril (PRINIVIL,ZESTRIL) 20 MG tablet Take 20 mg by mouth 2 (two) times a day TAKES 1 TABLET. no ONDANSETRON (ZOFRAN ODT ORAL) Take by mouth as needed TAKES 1 TABLET. If needed oxyCODONE-acetaminophen (PERCOCET) 10-325 mg per tablet Take 2 (two) tablets by mouth 3 (three) times a day 30 days. If needed pregabalin (LYRICA) 50 MG capsule Take 1 capsule (50 mg total) by mouth 3 (three) times a day. yes rOPINIRole (REQUIP) 2 MG tablet Take 2 mg by mouth nightly TAKES 2-3 TABLETS. As usual rOPINIRole (REQUIP) 4 MG tablet Take 1 tablet (4 mg total) by mouth nightly ReasonsRestless Legs Syndrome. As usual SUMAtriptan (IMITREX) 100 MG tablet Take 1 (one) tablet (100 mg total) by mouth as needed for migraine. If needed STOP Aspirin (and medications that contain aspirin, such as Chhaya Humarock, Pepto- Bismol, Anacin), antiinflammatory medications such as Advil, Motrin, Ibuprofen, Naproxen, Aleve, Chhaya Humarock, Pepto-Bismol, Anacin, Diclofenac, Voltaren, Daypro, Etodolac, Ketoprofen, Piroxicam, Relafen, Nabumetone, etc. Also discontinue Vitamin C, Vitamin E, [place]-3 Fatty Acid, Fish Oil or Lovaza, and all herbal medications. Tylenol (acetaminophen) is acceptable, but be careful to follow the label directions and do not usewith other pain medications. It is acceptable to continue a Multivitamin, Magnesium, Potassium, Iron supplement, Vitamin D, Calcium, or Vitamin B if you were already taking them. On the morning of surgery, with as little water as possible, ONLY take the medications listed abovein the column Take the morning of surgery. If you are using Eye Drops or Inhalers, please bring them to the hospital. in this encounter* Patient Instructions* Orin Esposito, PT - 11/25/2020 2:30 PM EST Pt practiced and was given HEP: Abdominal bracing 10 sec hold x10, Bug St I 15x ea, Standing Bhip abd, ext, flex 15x ea. Handout provided. Pt participated in the construction of HEP and treatment plan to be provided. Pt demonstrates understanding and all questions answered. documented in this encounter* Patient Instructions* Clarissa Luna MD - 11/26/2020 3:55 PM EST 1. You could try using left ulnar nerve brace (elbow brace), which is found over the counter at pharmacies, to try to wear atleast at nighttime, and see if that improves some of the hand/arm pain youare having there. The EMG said that nerve was ok, but sometimes if they test a different muscle, that nerve looks abnormal. 2. I suggest using a carpal tunnel wrist splint for at least the left side (since left is symptomatic) and seeing if that helps your symptoms, since EMG showed moderate to severe carpal tunnel on both sides. Wear the wrist splint/brace at least at nighttime, or when having worse symptoms. The longer you can wear it, the better. 3. Give above a trial of at least 1 month. The longer you can wear them (more hours in day and moredays) the more the nerve has a chance to heal. 4. For the left side, you could also consider doing carpal tunnel surgery. If you want to wait, andtry above, that is reasonable too. 5. 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 documented in this encounter Summary Purpose Family History No Family History Records FoundNo Family History Records FoundNo Family History Records FoundNo Family History Records FoundNo Family History Records FoundNo Family History Records FoundNo Family History Records FoundNo Family History Records FoundNo Family History Records FoundNo Family History Records FoundNo Family History Records FoundNo Family History Records FoundNo Family History Records FoundNo Family History Records FoundNo Family History Records FoundNo Family History Records FoundNo Family History Records FoundNo Family History Records Found Advance Directives No Advanced Directives Records FoundLatest Code Status on File Code Status Date Activated Date Inactivated Comments Full Code 02/27/2018 9:21 AM Full Code 11/08/2017 10:29 AM 02/27/2018 7:19 AM Full Code 11/03/2015 7:55 AM 11/04/2015 2:50 PM Documents on File Type Date Recorded 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 Advance Directives and Livin g Will 04/02/2019 2:02 PM Documents on File Type Date Recorded 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 anation Advance Directives and Livin g Will 07/31/2019 2:45 PM Latest Code Status on File Code Status Date Activated Date Inactivated Comments Full Code 06/08/2019 3:30 PM Full Code 02/27/2018 9:21 AM 06/08/2019 10:56 AM Documents on File Type Date Recorded 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 anation Advance Directives and Livin g Will 10/22/2019 2:42 PM Latest Code Status on File Code Status Date Activated Date Inactivated Comments Full Code 06/08/2019 3:30 PM Full Code 02/27/2018 9:21 AM 06/08/2019 10:56 AM Full Code 11/08/2017 10:29 AM 02/27/2018 7:19 AM Full Code 11/03/2015 7:55 AM 11/04/2015 2:50 PM Documents on File Type Date Recorded 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 anation Advance Directives and Livin g Will 10/22/2019 2:42 PM Documents on File Type Date Recorded 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 anation Advance Directives and Livin g Will 08/20/2020 8:41 PM Documents on File Type Date Recorded 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 anation Advance Directives and Livin g Will 08/20/2020 8:41 PM Documents on File Type Date Recorded 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 anation Advance Directives and Livin g Will 06/08/2019 11:37 AM Documents on File Type Date Recorded 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 anation Advance Directives and Livin g Will 07/23/2020 9:15 AM Latest Code Status on File Code Status Date Activated Date Inactivated Comments Full Code 02/27/2018 9:21 AM Documents on File Type Date Recorded 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 anation Advance Directives and Livin g Will 03/05/2021 8:41 PM Documents on File Type Date Recorded 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 anation Advance Directives and Livin g Will 03/13/2021 9:12 AM Latest Code Status on File Code Status Date Activated Date Inactivated Comments Full Code - Unverified 03/13/2021 3:06 PM 03/14/2021 4:0 0 PM Full Code 06/08/2019 3:30 PM 03/13/2021 9:13 AM Documents on File Type Date Recorded 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 anation Advance Directives and Livin g Will 03/23/2021 9:12 AM Latest Code Status on File Code Status Date Activated Date Inactivated Comments Full Code - Unverified 03/13/2021 3:06 PM 03/14/2021 4:0 0 PM Full Code 06/08/2019 3:30 PM 03/13/2021 9:13 AM Documents on File Type Date Recorded 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 anation Advance Directives and Livin g Will 03/23/2021 9:12 AM Documents on File Type Date Recorded 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 anation Advance Directives and Livin g Will 05/11/2021 12:26 PM Documents on File Type Date Recorded 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 anation Advance Directives and Livin g Will 05/11/2021 12:26 PM Documents on File Type Date Recorded 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 anation Advance Directives and Livin g Will 06/03/2021 12:26 PM Documents on File Type Date Recorded 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 anation Advance Directives and Livin g Will 06/03/2021 12:26 PM Documents on File Type Date Recorded 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 anation Advance Directives and Livin g Will 06/25/2021 12:26 PM Documents on File Type Date Recorded 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 anation Advance Directives and Livin g Will 09/16/2021 12:26 PM Documents on File Type Date Recorded 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 anation Advance Directives and Livin g Will 09/16/2021 12:26 PM Documents on File Type Date Recorded 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 anation Advance Directives and Livin g Will 12/18/2021 2:38 PM Latest Code Status on File Date Activated Date Inactivated Comments 03/13/2021 3:06 PM 03/14/2021 4:00 PM Full Code Date Activated Date Inactivated Comments 06/08/2019 3:30 PM 03/13/2021 9:13 AM Full Code Date Activated Date Inactivated Comments 02/27/2018 9:21 AM 06/08/2019 10:56 AM Full Code Date Activated Date Inactivated Comments 11/08/2017 10:29 AM 02/27/2018 7:19 AM Full Code Date Activated Date Inactivated Comments 11/03/2015 7:55 AM 11/04/2015 2:50 PM Latest Code Status on File Code Status Date Activated Date Inactivated Comments Full Code - Unverified 03/13/2021 3:06 PM 03/14/2021 4:0 0 PM Code Status History Code Status Date Activated Date Inactivated Comments Full Code 06/08/2019 3:30 PM 03/13/2021 9:13 AM Full Code 02/27/2018 9:21 AM 06/08/2019 10:56 AM Full Code 11/08/2017 10:29 AM 02/27/2018 7:19 AM Full Code 11/03/2015 7:55 AM 11/04/2015 2:50 PM Latest Code Status on File Code Status Date Activated Date Inactivated Comments Full Code - Unverified 05/29/2023 7:29 AM 06/01/2023 2:12 PM Code Status History Code Status Date Activated Date Inactivated Comments Full Code - Unverified 03/13/2021 3:06 PM 03/14/2021 4:0 0 PM Full Code 06/08/2019 3:30 PM 03/13/2021 9:13 AM Full Code 02/27/2018 9:21 AM 06/08/2019 10:56 AM Full Code 11/08/2017 10:29 AM 02/27/2018 7:19 AM Latest Code Status on File Code Status Date Activated Date Inactivated Comments Full Code - Unverified 05/29/2023 7:29 AM 06/01/2023 2:12 PM Code Status History Code Status Date Activated Date Inactivated Comments Full Code - Unverified 03/13/2021 3:06 PM 03/14/2021 4:0 0 PM Full Code 06/08/2019 3:30 PM 03/13/2021 9:13 AM Full Code 02/27/2018 9:21 AM 06/08/2019 10:56 AM Full Code 11/08/2017 10:29 AM 02/27/2018 7:19 AM Latest Code Status on File Code Status Date Activated Date Inactivated Comments Full Code 08/10/2023 10:40 AM 08/11/2023 2:28 PM Code Status History Code Status Date Activated Date Inactivated Comments Full Code - Unverified 05/29/2023 7:29 AM 06/01/2023 2:12 PM Full Code - Unverified 03/13/2021 3:06 PM 03/14/2021 4:0 0 PM Full Code 06/08/2019 3:30 PM 03/13/2021 9:13 AM Full Code 02/27/2018 9:21 AM 06/08/2019 10:56 AM Latest Code Status on File Code Status Date Activated Date Inactivated Comments Full Code 08/18/2023 9:05 PM 08/24/2023 4:53 PM Code Status History Code Status Date Activated Date Inactivated Comments Full Code 08/10/2023 10:40 AM 08/11/2023 2:28 PM Full Code - Unverified 05/29/2023 7:29 AM 06/01/2023 2:12 PM Full Code - Unverified 03/13/2021 3:06 PM 03/14/2021 4:0 0 PM Full Code 06/08/2019 3:30 PM 03/13/2021 9:13 AM Latest Code Status on File Code Status Date Activated Date Inactivated Comments Full Code 08/26/2023 3:11 PM Code Stat us reflects patient's informed choice. Code Status History Code Status Date Activated Date Inactivated Comments Full Code 08/18/2023 9:05 PM 08/24/2023 4:53 PM Full Code 08/10/2023 10:40 AM 08/11/2023 2:28 PM Full Code - Unverified 05/29/2023 7:29 AM 06/01/2023 2:12 PM Full Code - Unverified 03/13/2021 3:06 PM 03/14/2021 4:0 0 PM Latest Code Status on File Code Status Date Activated Date Inactivated Comments Full Code 08/26/2023 3:11 PM Code Stat us reflects patient's informed choice. Code Status History Code Status Date Activated Date Inactivated Comments Full Code 08/18/2023 9:05 PM 08/24/2023 4:53 PM Full Code 08/10/2023 10:40 AM 08/11/2023 2:28 PM Full Code - Unverified 05/29/2023 7:29 AM 06/01/2023 2:12 PM Full Code - Unverified 03/13/2021 3:06 PM 03/14/2021 4:0 0 PM Latest Code Status on File Code Status Date Activated Date Inactivated Comments Full Code 10/07/2023 1:24 PM 10/07/2023 4:41 PM Code Status History Code Status Date Activated Date Inactivated Comments Full Code 08/26/2023 3:11 PM 10/07/2023 11:17 AM Cod e Status reflects patient's informed choice. Full Code 08/18/2023 9:05 PM 08/24/2023 4:53 PM Full Code 08/10/2023 10:40 AM 08/11/2023 2:28 PM Full Code - Unverified 05/29/2023 7:29 AM 06/01/2023 2:12 PM Latest Code Status on File Code Status Date Activated Date Inactivated Comments Full Code 10/26/2023 4:34 AM 10/28/2023 7:09 PM Code Status History Code Status Date Activated Date Inactivated Comments Full Code 10/07/2023 1:24 PM 10/07/2023 4:41 PM Full Code 08/26/2023 3:11 PM 10/07/2023 11:17 AM Cod e Status reflects patient's informed choice. Full Code 08/18/2023 9:05 PM 08/24/2023 4:53 PM Full Code 08/10/2023 10:40 AM 08/11/2023 2:28 PM Latest Code Status on File Code Status Date Activated Date Inactivated Comments Full Code 10/26/2023 4:34 AM 10/28/2023 7:09 PM Code Status History Code Status Date Activated Date Inactivated Comments Full Code 10/07/2023 1:24 PM 10/07/2023 4:41 PM Full Code 08/26/2023 3:11 PM 10/07/2023 11:17 AM Cod e Status reflects patient's informed choice. Full Code 08/18/2023 9:05 PM 08/24/2023 4:53 PM Full Code 08/10/2023 10:40 AM 08/11/2023 2:28 PM Date Activated Date Inactivated Comments 08/06/2024 12:11 PM 08/14/2024 7:36 PM Date Activated Date Inactivated Comments 10/26/2023 4:34 AM 10/28/2023 7:09 PM Date Activated Date Inactivated Comments 10/07/2023 1:24 PM 10/07/2023 4:41 PM Date Activated Date Inactivated Comments 08/26/2023 3:11 PM 10/07/2023 11:17 AM Code Statu s reflects patient's informed choice. Date Activated Date Inactivated Comments 08/18/2023 9:05 PM 08/24/2023 4:53 PM Date Activated Date Inactivated Comments 08/06/2024 12:11 PM 08/14/2024 7:36 PM Date Activated Date Inactivated Comments 10/26/2023 4:34 AM 10/28/2023 7:09 PM Date Activated Date Inactivated Comments 10/07/2023 1:24 PM 10/07/2023 4:41 PM Date Activated Date Inactivated Comments 08/26/2023 3:11 PM 10/07/2023 11:17 AM Code Statu s reflects patient's informed choice. Date Activated Date Inactivated Comments 08/18/2023 9:05 PM 08/24/2023 4:53 PM Date Activated Date Inactivated Comments 08/29/2024 2:07 PM Code Status r eflects patient's informed choice. Date Activated Date Inactivated Comments 08/06/2024 12:11 PM 08/14/2024 7:36 PM Date Activated Date Inactivated Comments 10/26/2023 4:34 AM 10/28/2023 7:09 PM Date Activated Date Inactivated Comments 10/07/2023 1:24 PM 10/07/2023 4:41 PM Date Activated Date Inactivated Comments 08/26/2023 3:11 PM 10/07/2023 11:17 AM Code Statu s reflects patient's informed choice. Date Activated Date Inactivated Comments 08/29/2024 2:07 PM Code Status r eflects patient's informed choice. Date Activated Date Inactivated Comments 08/06/2024 12:11 PM 08/14/2024 7:36 PM Date Activated Date Inactivated Comments 10/26/2023 4:34 AM 10/28/2023 7:09 PM Date Activated Date Inactivated Comments 10/07/2023 1:24 PM 10/07/2023 4:41 PM Date Activated Date Inactivated Comments 08/26/2023 3:11 PM 10/07/2023 11:17 AM Code Statu s reflects patient's informed choice. Date Activated Date Inactivated Comments 08/29/2024 2:07 PM 05/30/2025 10:11 AM Code Statu s reflects patient's informed choice. Date Activated Date Inactivated Comments 08/29/2024 2:07 PM 05/30/2025 10:11 AM Code Statu s reflects patient's informed choice. History of Present Illness * Zac Ovalle MD - 09/04/2018 5:59 PM EST Formatting of this note may be different from the original. Subjective: Patient ID: Matthew Perez is a 63 y.o. female. Chief Complaint Patient presents with Sinusitis New Patient/Believes Uvula hangs down to low HPI kind referral for my evaluation of multiple ENT related problems. Reportedly, patient was diagnosed with severe sleep apnea on 2 occasions in the last 10 years. She unfortunately cannot tolerate CPAP machine due to claustrophobia associated anxiety. Patient also is concerned about enlargement of her uvula by the end of the day, which she feels on the back of her tongue with gagging sensation.Patient had right vocal cord paralysis after anterior spinal fusion several years ago but denies associated significant problems with swallowing or voice. Patient had tonsillectomy and adenoidectomy in childhood. The following portions of the patient's history were reviewed and updated as appropriate: allergies, current medications, past family history, past medical history, past social history, past surgicalhistory and problem list. Review of Systems Constitutional: Positive for fatigue. Negative for activity change, appetite change, chills, diaphoresis, fever and unexpected weight change. HENT: Positive for congestion, facial swelling, postnasal drip, rhinorrhea, sinus pressure, sneezing, sore throat, trouble swallowing and voice change. Negative for dental problem, drooling, ear discharge, ear pain, hearing loss, mouth sores, nosebleeds, sinus pain and tinnitus. Eyes: Negative for pain, discharge, itching and visual disturbance. Respiratory: Positive for apnea and cough. Negative for choking, chest tightness, shortness of breath, wheezing and stridor. Cardiovascular: Negative for chest pain. Gastrointestinal: Negative for abdominal distention. Endocrine: Negative for cold intolerance and heat intolerance. Genitourinary: Negative. Musculoskeletal: Negative. Allergic/Immunologic: Negative for environmental allergies, food allergies and immunocompromised state. Neurological: Positive for headaches. Negative for dizziness, facial asymmetry, light-headedness and numbness. Hematological: Negative for adenopathy. Does not bruise/bleed easily. Psychiatric/Behavioral: Negative. Objective: BP 126/85 Pulse 81 Ht 5' 7 Wt 88 kg (194 lb) SpO2 92% BMI 30.38 kg/m Physical Exam Constitutional: She is oriented to person, place, and time. She appears well- developed and well-nourished. No distress. HENT: Head: Normocephalic and atraumatic. Head is without abrasion, without contusion and without laceration. Right Ear: Tympanic membrane, external ear and ear canal normal. No drainage, swelling or tenderness. No mastoid tenderness. Tympanic membrane is not perforated. Tympanic membrane mobility is normal.No middle ear effusion. Decreased hearing is noted. Left Ear: Tympanic membrane and external ear normal. No drainage, swelling or tenderness. No mastoid tenderness. Tympanic membrane is not perforated. Tympanic membrane mobility is normal. No middle ear effusion. Decreased hearing is noted. Nose: Rhinorrhea and septal deviation present. No mucosal edema, nose lacerations, sinus tenderness, nasal deformity or nasal septal hematoma. No epistaxis. No foreign bodies. Right sinus exhibits nomaxillary sinus tenderness and no frontal sinus tenderness. Left sinus exhibits no maxillary sinus t enderness and no frontal sinus tenderness. Mouth/Throat: Uvula is midline, oropharynx is clear and moist and mucous membranes are normal. She does not have dentures. No oral lesions. No trismus in the jaw. Normal dentition. No dental abscesses, uvula swelling, lacerations or dental caries. No oropharyngeal exudate, posterior oropharyngeal edema, posterior oropharyngeal erythema or tonsillar abscesses. Tonsils and adenoids are surgically absent, no VPI, normal-appearing uvula, Mallampati score 1. Eyes: Pupils are equal, round, and reactive to light. Conjunctivae and EOM are normal. Right eye exhibits no discharge. Left eye exhibits no discharge. No scleral icterus. Neck: Trachea normal, normal range of motion and phonation normal. Neck supple. No JVD present. No tracheal deviation present. No thyroid mass and no thyromegaly present. Cardiovascular: Normal rate, regular rhythm, normal heart sounds and intact distal pulses. Pulmonary/Chest: No stridor. No respiratory distress. She has no wheezes. She has no rales. She exhibits no tenderness. Abdominal: Soft. Bowel sounds are normal. She exhibits no distension. There is no tenderness. Musculoskeletal: Normal range of motion. Lymphadenopathy: She has no cervical adenopathy. Right cervical: No superficial cervical, no deep cervical and no posterior cervical adenopathy present. Left cervical: No superficial cervical, no deep cervical and no posterior cervical adenopathy present. Neurological: She is alert and oriented to person, place, and time. No cranial nerve deficit. Coordination normal. Skin: Skin is warm and dry. No rash noted. She is not diaphoretic. No erythema. Psychiatric: She has a normal mood and affect. Her behavior is normal. Judgment and thought contentnormal. Endoscopy was used to evaluate the patient with vocal cord paralysis and AYO. Flexible Fiberoptic Laryngoscopy Procedure Note, CPT code 59054. Pre-operative Diagnosis: hoarse voice and shortness of breath Post-operative Diagnosis: Right vocal cord paralysis Anesthesia: topical with afrin and lidocaine 4% Endoscopy Type: Flexible Fiberoptic Laryngoscopy Procedure Details: The patient was placed in the sitting position. After topical anesthesia and decongestion, the scope was passed. The nasal cavities, nasopharynx, oropharynx, hypopharynx, and larynx were all examined. Vocal cords were examined during respiration and phonation. The following findings were noted: Findings: The nasal cavity has normal, pink and healthy mucosa, the nasopharynx is normal, without adenoid hypertrophy or masses. The oropharynx is normal. The hypopharynx is nml. The epiglottis and tongue base are normal. The right vocal cord in the paramedian position with overlapping area epiglottic fold but good occlusion upon phonation with well moving left vocal cord. The pyriform sinuses are normal bilaterally. Condition: Stable. Patient tolerated procedure well. Complications: None Assessment/Plan: Focused but thorough clinical examination including office- based endoscopy revealed no surgically significant points of the airway obstruction, specifically no uvula elongation, malum potty score 1 with surgically absent tonsils, right complete vocal cord paralysis with good occlusi ve ability and moderate interarytenoid dull area mucosal pachyderma typical for laryngopharyngeal reflux disease associated with GERD. Reassurance, information, instructions and prescription for ranitidine 300 mg to be taken at night p.o., as well as substitution of current Nexium for Prilosec 40 mg to be taken p.o. on empty stomach every morning with my reevaluation in 4 weeks provided. Patient w as requested to bring her previous sleep study results. All patient's questions were answered appropriately to the level of her satisfaction. She had expressed comprehensive understanding and is in agreement with my plan. SNOMED CT(R) 1. AYO on CPAP OBSTRUCTIVE SLEEP APNEA SYNDROME 2. Vocal cord paralysis, unilateral complete UNILATERAL COMPLETE PARALYSIS OF VOCAL CORDS 3. Dysphasia DYSPHASIA 4. Laryngeal pachyderma LARYNGEAL PACHYDERMIA ranitidine (ZANTAC) 300 MG tablet 5. Gastroesophageal reflux disease, esophagitis presence not specified GASTROESOPHAGEAL REFLUX DISEASE ranitidine (ZANTAC) 300 MG tablet No orders of the defined types were placed in this encounter. in this encounter* Eyal Duron MD - 11/21/2018 1:44 PM EST Nam: Matthew Perez Age: 63 y.o. : 1955 Date: 11/21/2018 Provider: Eyal Duron MD Chief Complaint Patient presents with Back Pain HISTORY OF PRESENT ILLNESS: Matthew Perez is a 63 y.o. female who presents complaining of pain in the neck, shoulders Bilateral, low back, buttocks and hips Bilateral. Current symptoms include: aching, dull, sharp and throbbing in character; 7/10 in severity. Symptoms have worsened from the previous visit. Exacerbating factors identified by the patient are activity and weather .Recently fell and hurt herself. Analgesia: Patient has adequate analgesia with the use of current opioid pain medication. Activities of Daily Living: Patient's activities of daily living and psychological functioning haveimproved sufficiently with use of the current opioid medication. Adverse Effects: Patient reports no adverse effects with use of the opioid pain medication. Aberrant Drug-Taking Behavior: Patient has demonstrated no aberrant drug taking behaviors with no deviation from prescription. Allergies Allergen Reactions Lyrica [Pregabalin] Other (See Comments) nightmares Duloxetine GI Intolerance Nausea Metformin GI Intolerance Current Outpatient Medications Medication Sig Dispense Refill albuterol (PROVENTIL) 2.5 mg /3 mL (0.083 %) nebulizer solution Take 2.5 mg by nebulization daily as needed . budesonide-formoterol (SYMBICORT) 160-4.5 mcg/actuation inhaler Inhale 2 puffs 2 (two) times a day. cephALEXin (KEFLEX) 500 MG capsule cinnamon bark 500 mg capsule daily . clonazePAM (KLONOPIN) 1 MG tablet diphenoxylate-atropine (LOMOTIL) 2.5-0.025 mg per tablet 2 Unspecified . EASIVENT HOLDING CHAMBER inhaler garlic 1,000 mg cap daily . hydroCHLOROthiazide (HYDRODIURIL) 25 MG tablet Take 25 mg by mouth. ibuprofen (ADVIL,MOTRIN) 800 MG tablet 1 Unspecified . ketorolac (TORADOL) 30 mg/mL (1 mL) injection 1 mL every 6 (six) hours . levoFLOXacin (LEVAQUIN) 500 MG tablet 1 Unspecified daily . lisinopril (PRINIVIL,ZESTRIL) 20 MG tablet Take 20 mg by mouth every evening . montelukast (SINGULAIR) 10 mg tablet Take 10 mg by mouth. montelukast (SINGULAIR) 10 mg tablet 1 Unspecified daily . omeprazole (PRILOSEC) 40 MG capsule Take 1 (one) capsule (40 mg total) by mouth daily. 30 capsule 5 oxyCODONE (ROXICODONE) 5 MG immediate release tablet 1-2 tablets every 4-6 hours as needed for pain. 100 tablet 0 oxyCODONE-acetaminophen (PERCOCET) 10-325 mg per tablet Take 1 (one) tablet by mouth 5 (five) timesa day (Days supply per fill: 30) Start: 10/25/18. 150 tablet 0 polyethylene glycol (MIRALAX) 17 gram powder potassium 99 mg Tab 1 Unspecified . promethazine (PHENERGAN) 25 MG tablet Take 25 mg by mouth every 6 (six) hours as needed for nausea. rOPINIRole (REQUIP) 2 MG tablet Take 4 mg by mouth nightly TAKES 2-3 TABLETS. sertraline (ZOLOFT) 50 MG tablet tiotropium (SPIRIVA WITH HANDIHALER) 18 mcg inhalation capsule Spiriva with HandiHaler 18 mcg and inhalation capsules INHALE THE ENTIRE CONTENTS OF 1 CAPSULE ONCE A DAY USING HANDIHALER DEVICE traZODone (DESYREL) 50 MG tablet ibuprofen (ADVIL,MOTRIN) 800 MG tablet Take 1 (one) tablet (800 mg total) by mouth 2 (two) times a day. 60 tablet 1 ranitidine (ZANTAC) 300 MG tablet Take 1 (one) tablet (300 mg total) by mouth nightly. 30 tablet 5 SUMAtriptan (IMITREX) 100 MG tablet Take 1 (one) tablet (100 mg total) by mouth as needed for migraine. 6 tablet 0 No current facility-administered medications for this visit. Past Medical History: Diagnosis Date Arthritis osteo Asthma 08/23/2014 Benign hypertension 04/01/2015 Cataract 08/23/2014 immature Chronic pain disorder rt foot, hx 4 foot fractures; calves of legs cause pain,muscle spasms Congestive heart failure (HCC) 10/13/2015 patient denies COPD (chronic obstructive pulmonary disease) (HCC) Depression Diarrhea Fibromyalgia, primary GERD (gastroesophageal reflux disease) patient denies History of cardiac cath 2005 normal reported by patient History of echocardiogram History of stress test 09/08/2015 Hypertension controlled Migraines Obesity Pneumonia x2 , had 2 pneumonia shots Restless legs syndrome Shoulder joint pain rt plan Arthroscopy rotator cuff repair Sleep apnea, obstructive unable to use cpap; recently received mouthpiece but not using Varicose veins of both lower extremities Past Surgical History: Procedure Laterality Date AR'SCOPY SHOULD SAD, SLAP, RCR, RESECT DISTAL CLAVICLE, BICEPS TENODESIS Right 11/04/2015 Procedure: AR'SCOPY RT SHOULD GREGORY, RCR, & BICEPS POSS OPEN; Surgeon: Jack Dave MD; Location: [facility] Main OR; Service: ARTHROPLASTY HIP TOTAL Right 02/27/2018 Procedure: RIGHT TOTAL HIP ARTHROPLASTY; Surgeon: Gabo Sears MD; Location: [facility] Main OR; Service: Orthopedic BACK SURGERY 2008,2002 x 2 Low back, BLADDER SUSPENSION bladder tie-up BRONCHOSCOPY CARDIAC CATHETERIZATION 08/2006 [facility] [place] COLONOSCOPY FOOT SURGERY Right foot hammer, toes; 3 surg FOOT SURGERY Right hammer toes, fractuered foot;3 surg HYSTERECTOMY CARLOS MANUEL BSO Bladder suspension JOINT REPLACEMENT Right TKR KNEE SURGERY Left 2013 arthroscopic LAMINECTOMY DECOMP LUMBAR W/FUSION 4 OR MORE LVL N/A 11/08/2017 Procedure: HARDWARE REMOVAL L4-S1, DECOMPRESSION/FUSION L2-L4, PLIF, REINSTRUMENT L2-S1; Surgeon: Alejo Hummel MD; Location: [facility] Main OR; Service: Orthopedic LUNG SURGERY Right lower lobe; biopsy taken and nodule was benign NECK SURGERY 2008,2013 x 2 C5-6-7 anterior, 2nd included T1- C5-6-7 ROTATOR CUFF REPAIR Left TONSILLECTOMY VEIN SURGERY 2014 vein taken out in lower Left leg in [place] Dr. [place] WISDOM TOOTH EXTRACTION Social History Socioeconomic History Marital status: Spouse name: Derrek Number of children: Not on file Years of education: Not on file Highest education level: Not on file Social Needs Financial resource strain: Not on file Food insecurity - worry: Not on file Food insecurity - inability: Not on file Transportation needs - medical: Not on file Transportation needs - non-medical: Not on file Occupational History Not on file Tobacco Use Smoking status: Never Smoker Smokeless tobacco: Never Used Substance and Sexual Activity Alcohol use: Yes Alcohol/week: 0.0 oz Comment: sometimes 10 a year; rare Drug use: No Sexual activity: Yes Partners: Male control/protection: None Other Topics Concern Not on file Social History Narrative Merged History Encounter Family History Problem Relation Age of Onset Hypertension Father Heart disease Father Diabetes Father Breast cancer Mother ; cancer went to brain, liver and lungs Brain cancer Mother Liver cancer Mother Lung cancer Mother Hypertension Sister Diabetes Sister Hypertension Other siblings Diabetes Other siblings No Known Problems Brother Surgical complications Neg Hx Anesthesia problems Neg Hx Clotting disorder Neg Hx Deep vein thrombosis Neg Hx Pulmonary embolism Neg Hx Social History Substance and Sexual Activity Alcohol Use Yes Alcohol/week: 0.0 oz Comment: sometimes 10 a year; rare Social History Substance and Sexual Activity Drug Use No Social History Tobacco Use Smoking Status Never Smoker Smokeless Tobacco Never Used Review of Systems Constitutional: Negative for activity change and appetite change. HENT: Negative for dental problem, hearing loss, sinus pressure and trouble swallowing. Eyes: Positive for visual disturbance. Respiratory: Negative for cough. Cardiovascular: Negative for chest pain and leg swelling. Gastrointestinal: Positive for constipation. Musculoskeletal: Positive for arthralgias, back pain and gait problem. Psychiatric/Behavioral: The patient is nervous/anxious. B/B control:0 - Normal Antalgic Physical Exam Constitutional: She is oriented to person, place, and time. She appears well-nourished. HENT: Head: Normocephalic and atraumatic. Neck: Normal range of motion. Neck supple. Cardiovascular: Normal rate and regular rhythm. Musculoskeletal: She exhibits tenderness. Lumbar back: She exhibits decreased range of motion, tenderness and bony tenderness. Back: Neurological: She is alert and oriented to person, place, and time. Skin: Skin is warm and dry. Psychiatric: Her behavior is normal. Judgment and thought content normal. Ortho Exam 63 y.o. BP 124/79 Ht 5' 7 Wt 86.2 kg (190 lb) BMI 29.76 kg/m SNOMED CT(R) 1. Encounter for long-term opiate analgesic use ADMISSION STATUSES External Lab Urine Drug Screen 2. Postlaminectomy syndrome of lumbar region LUMBAR POST-LAMINECTOMY SYNDROME ASSESSMENT/PLAN: meds refill, f/u 2 month Consistent OARRS/NARxCHECK Report Received and Assessed: 11/21/18 Date controlled substance agreement signed: 01/09/18 (AP) Date of last drug screen: 11/21/18 (AP) in this encounter* Ruby Boucher CNP - 06/01/2019 11:22 AM EDT Nam: Matthew Perez Age: 64 y.o. : 1955 Date: 06/01/2019 Provider: Ruby Boucher CNP Chief Complaint Patient presents with Back Pain HISTORY OF PRESENT ILLNESS: Matthew Perez is a 64 y.o. female that presents with complaints of pain in the low back pain, bilateral hips and legs. All large joints seems to hurt. Reported symptoms include the following: sharp and shooting in character; 10/10 in severity. Pain medication provides relief to 3/10. Symptoms havenot changed from the previous visit. Exacerbating factors identified by the patient are weather andone position too long (standing, sitting, laying), walking. Alleviating factors/conservative treatments tried include the following:heat (heating pad, warm compress, soaking) and frequent position change. Sleeps in a [place]. Requesting to fill early and states some of her pills are missing after v acation. Tearfully asking if Dr. Duron will give her additional medication as she can hardly get anything done around the house. Recent vacation ended with her in the hospital in [place] with a cardiac evaluation. Analgesia: Patient has adequate analgesia with the use of current opioid pain medication. Activities of Daily Living: Patient's activities of daily living and psychological functioning haveimproved sufficiently with use of the current opioid medication. Adverse Effects: Patient reports constipation with use of the current opioid pain medication. Manages with OTC. Aberrant Drug-Taking Behavior: Patient has demonstrated no aberrant drug taking behaviors with no deviation from prescription. Allergies Allergen Reactions Lyrica [Pregabalin] Other (See Comments) nightmares Duloxetine GI Intolerance Nausea Metformin GI Intolerance Current Outpatient Medications Medication Sig Dispense Refill albuterol (PROVENTIL) 2.5 mg /3 mL (0.083 %) nebulizer solution Take 2.5 mg by nebulization daily as needed . budesonide-formoterol (SYMBICORT) 160-4.5 mcg/actuation inhaler Inhale 2 puffs 2 (two) times a day. cephALEXin (KEFLEX) 500 MG capsule cinnamon bark 500 mg capsule daily . clonazePAM (KLONOPIN) 1 MG tablet diphenoxylate-atropine (LOMOTIL) 2.5-0.025 mg per tablet 2 Unspecified . EASIVENT HOLDING CHAMBER inhaler garlic 1,000 mg cap daily . hydroCHLOROthiazide (HYDRODIURIL) 25 MG tablet Take 25 mg by mouth. HYDROmorphone 16 mg Tb24 Take 1 (one) tablet (16 mg total) by mouth once daily (Days supply per fill: 7) M96.1 . 30 tablet 0 ibuprofen (ADVIL,MOTRIN) 800 MG tablet Take 1 (one) tablet (800 mg total) by mouth 2 (two) times a day. 60 tablet 1 ibuprofen (ADVIL,MOTRIN) 800 MG tablet 1 Unspecified . ketorolac (TORADOL) 30 mg/mL (1 mL) injection 1 mL every 6 (six) hours . levoFLOXacin (LEVAQUIN) 500 MG tablet 1 Unspecified daily . lisinopril (PRINIVIL,ZESTRIL) 20 MG tablet Take 20 mg by mouth every evening . montelukast (SINGULAIR) 10 mg tablet Take 10 mg by mouth. montelukast (SINGULAIR) 10 mg tablet 1 Unspecified daily . morphine (MS CONTIN) 30 MG 12 hr tablet Take 1 (one) tablet (30 mg total) by mouth 2 (two) times a day (Days supply per fill: 30) M15.9 Start: 01/27/19. 60 tablet 0 NARCAN 4 mg/actuation [address] Administer 1 spray into one nostril for known or suspected opioid overdose. If patient worsens or does not respond, may repeat in 2-3 minutes. . 1 Package 0 omeprazole (PRILOSEC) 40 MG capsule Take 1 (one) capsule (40 mg total) by mouth daily. 30 capsule 5 oxyCODONE (ROXICODONE) 5 MG immediate release tablet 1-2 tablets every 4-6 hours as needed for pain. 100 tablet 0 oxyCODONE-acetaminophen (PERCOCET) 10-325 mg per tablet Take 2 (two) tablets by mouth 3 (three) times a day (Days supply per fill: 30) M51.36 Start: 05/05/19. 180 tablet 0 polyethylene glycol (MIRALAX) 17 gram powder potassium 99 mg Tab 1 Unspecified . promethazine (PHENERGAN) 25 MG tablet Take 25 mg by mouth every 6 (six) hours as needed for nausea. ranitidine (ZANTAC) 300 MG tablet Take 1 (one) tablet (300 mg total) by mouth nightly. 30 tablet 5 rOPINIRole (REQUIP) 2 MG tablet Take 4 mg by mouth nightly TAKES 2-3 TABLETS. sertraline (ZOLOFT) 50 MG tablet SUMAtriptan (IMITREX) 100 MG tablet Take 1 (one) tablet (100 mg total) by mouth as needed for migraine. 6 tablet 0 tiotropium (SPIRIVA WITH HANDIHALER) 18 mcg inhalation capsule Spiriva with HandiHaler 18 mcg and inhalation capsules INHALE THE ENTIRE CONTENTS OF 1 CAPSULE ONCE A DAY USING HANDIHALER DEVICE traZODone (DESYREL) 50 MG tablet No current facility-administered medications for this visit. Past Medical History: Diagnosis Date Arthritis osteo Asthma 08/23/2014 Benign hypertension 04/01/2015 Cataract 08/23/2014 immature Chronic pain disorder rt foot, hx 4 foot fractures; calves of legs cause pain,muscle spasms Congestive heart failure (HCC) 10/13/2015 patient denies COPD (chronic obstructive pulmonary disease) (HCC) Depression Diarrhea Fibromyalgia, primary GERD (gastroesophageal reflux disease) patient denies History of cardiac cath 2005 normal reported by patient History of echocardiogram History of stress test 09/08/2015 Hypertension controlled Migraines Obesity Pneumonia x2 , had 2 pneumonia shots Restless legs syndrome Shoulder joint pain rt plan Arthroscopy rotator cuff repair Sleep apnea, obstructive unable to use cpap; recently received mouthpiece but not using Varicose veins of both lower extremities Past Surgical History: Procedure Laterality Date AR'SCOPY SHOULD SAD, SLAP, RCR, RESECT DISTAL CLAVICLE, BICEPS TENODESIS Right 11/04/2015 Procedure: AR'SCOPY RT SHOULD GREGORY, RCR, & BICEPS POSS OPEN; Surgeon: Jack Dave MD; Location: [facility] Main OR; Service: ARTHROPLASTY HIP TOTAL Right 02/27/2018 Procedure: RIGHT TOTAL HIP ARTHROPLASTY; Surgeon: Gabo Sears MD; Location: [facility] Main OR; Service: Orthopedic BACK SURGERY 2008,2002 x 2 Low back, BLADDER SUSPENSION bladder tie-up BRONCHOSCOPY CARDIAC CATHETERIZATION 08/2006 [facility] COLONOSCOPY FOOT SURGERY Right foot hammer, toes; 3 surg FOOT SURGERY Right hammer toes, fractuered foot;3 surg HYSTERECTOMY [facility] BSO Bladder suspension JOINT REPLACEMENT Right TKR KNEE SURGERY Left 2013 arthroscopic LAMINECTOMY DECOMP LUMBAR W/FUSION 4 OR MORE LVL N/A 11/08/2017 Procedure: HARDWARE REMOVAL L4-S1, DECOMPRESSION/FUSION L2-L4, PLIF, REINSTRUMENT L2-S1; Surgeon: Alejo Hummel MD; Location: [facility] Main OR; Service: Orthopedic LUNG SURGERY Right lower lobe; biopsy taken and nodule was benign NECK SURGERY 2008,2013 x 2 C5-6-7 anterior, 2nd included T1- C5-6-7 ROTATOR CUFF REPAIR Left TONSILLECTOMY VEIN SURGERY 2014 vein taken out in lower Left leg in [place] Dr. Mooney WISDOM TOOTH EXTRACTION Social History Socioeconomic History Marital status: Spouse name: Derrek Number of children: Not on file Years of education: Not on file Highest education level: Not on file Occupational History Not on file Social Needs Financial resource strain: Not on file Food insecurity: Worry: Not on file Inability: Not on file Transportation needs: Medical: Not on file Non-medical: Not on file Tobacco Use Smoking status: Never Smoker Smokeless tobacco: Never Used Substance and Sexual Activity Alcohol use: Yes Alcohol/week: 0.0 standard drinks Comment: sometimes 10 a year; rare Drug use: No Sexual activity: Yes Partners: Male control/protection: None Lifestyle Physical activity: Days per week: Not on file Minutes per session: Not on file Stress: Not on file Relationships Social connections: Talks on phone: Not on file Gets together: Not on file Attends sabianist service: Not on file Active member of club or organization: Not on file Attends meetings of clubs or organizations: Not on file Relationship status: Not on file Other Topics Concern Not on file Social History Narrative Merged History Encounter Family History Problem Relation Age of Onset Hypertension Father Heart disease Father Diabetes Father Breast cancer Mother ; cancer went to brain, liver and lungs Brain cancer Mother Liver cancer Mother Lung cancer Mother Hypertension Sister Diabetes Sister Hypertension Other siblings Diabetes Other siblings No Known Problems Brother Surgical complications Neg Hx Anesthesia problems Neg Hx Clotting disorder Neg Hx Deep vein thrombosis Neg Hx Pulmonary embolism Neg Hx Social History Substance and Sexual Activity Alcohol Use Yes Alcohol/week: 0.0 standard drinks Comment: sometimes 10 a year; rare Social History Substance and Sexual Activity Drug Use No Social History Tobacco Use Smoking Status Never Smoker Smokeless Tobacco Never Used Review of Systems Constitutional: Negative for appetite change, diaphoresis, fatigue and fever. HENT: Negative for dental problem, hearing loss and trouble swallowing. Eyes: Negative for pain, discharge and visual disturbance. Respiratory: Positive for cough, shortness of breath and wheezing. COPD Cardiovascular: Negative for chest pain and leg swelling. Gastrointestinal: Positive for constipation. Negative for diarrhea, nausea and vomiting. Genitourinary: Negative for difficulty urinating and dysuria. Musculoskeletal: Positive for arthralgias and back pain. Skin: Negative for pallor and rash. Neurological: Negative for dizziness and light-headedness. Psychiatric/Behavioral: Negative for suicidal ideas. The patient is not nervous/anxious. B/B control:0 - Normal Walking normally Physical Exam Constitutional: She is oriented to person, place, and time. She appears well- developed and well-nourished. HENT: Head: Normocephalic and atraumatic. Eyes: Pupils are equal, round, and reactive to light. Conjunctivae are normal. Neck: Normal range of motion. Neck supple. Cardiovascular: Normal rate and regular rhythm. Pulmonary/Chest: Effort normal. No respiratory distress. Musculoskeletal: She exhibits tenderness. Neurological: She is alert and oriented to person, place, and time. Skin: Skin is warm and dry. Psychiatric: Her behavior is normal. Judgment and thought content normal. Tearful, denies feelings of depression 64 y.o. Ht 5' 7 BMI 28.19 kg/m SNOMED CT(R) 1. Encounter for monitoring opioid maintenance therapy PATIENT ENCOUNTER STATUS External Lab Urine Drug Screen 2. 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 Follow up 2 months. She reports that she will be following up with orthopedics to see if her right hip replacement is normal as a lot of her pain is r/tthat area and other joint replacements. Pattern of pain is reported as Consistent I will continue to monitor for addiction and aberrant behavior, will use opiates with goal of weaning to lowest effective dose, will maximize doses of neuropathic agents and adjuvant therapies. For any new medications prescribed today, patient was educated about indications for the medication, how to take the medication and potential side effects of the medications. I have discussed the findings of this office visit with him. The discussion included a complete verbal explanation of the examination results, diagnosis and current treatment plan. The treatment plan is discussed, covering the risk and benefits as well as possible side effects. The patient questions are addressed. The patient verbalizes understanding and agreement with planned treatment. The patient is reminded that there is a risk of addiction. Patient has been counseled about the risk and benefit of opioid medications. The patient has been encourged to explore non-medication alternatives to manage pain. The patient is subject to being randomly assessed by oral/urine drug screening and/or pill count as needed to monitor patient compliance and adherance to the plan of care. OARRS/NARxCHECK Report Received and Assessed: 06/01/19 Date controlled substance agreement signed: 01/22/19 (AP) Date of last drug screen: 06/01/19 (AP) documented in this encounter* Ruby Boucher CNP - 07/31/2019 2:50 PM EDT Nam: Matthew Perez Age: 64 y.o. : 1955 Date: 07/31/2019 Provider: Ruby Boucher CNP Chief Complaint Patient presents with Follow-up Postlaminectomy syndrome of lumbar region HISTORY OF PRESENT ILLNESS: Matthew Perez is a 64 y.o. female that presents with complaints of pain in the low back, bilateralhips and legs (>R side). Reported symptoms include the following: aching and sharp in character;10/10 in severity. Pain medication provides relief to 5/10. Symptoms have not changed from the previous visit. Exacerbating factors identified by the patient are stair steps, walking , standing and most movement. Alleviating factors/conservative treatments tried include the following:heat (heating pad, warm compress, soaking), cold pack and rest. Currently uses six 10-325 oxycodone-APAP and suggests more would be better. Participating in PT in hopes to get an MRI ordered at another office approved. Analgesia: Patient has adequate analgesia with the use of current opioid pain medication. Activities of Daily Living: Patient's activities of daily living and psychological functioning haveimproved sufficiently with use of the current opioid medication. Adverse Effects: Patient reports no adverse effects with use of the opioid pain medication. Aberrant Drug-Taking Behavior: Patient has demonstrated no aberrant drug taking behaviors with no deviation from prescription. Allergies Allergen Reactions Ibuprofen GI Intolerance Lyrica [Pregabalin] Other (See Comments) nightmares Duloxetine GI Intolerance Nausea Metformin GI Intolerance Current Outpatient Medications Medication Sig Dispense Refill albuterol (PROVENTIL) 2.5 mg /3 mL (0.083 %) nebulizer solution Take 2.5 mg by nebulization daily as needed . budesonide-formoterol (SYMBICORT) 160-4.5 mcg/actuation inhaler Inhale 2 puffs 2 (two) times a day. clonazePAM (KLONOPIN) 1 MG tablet Take 1 mg by mouth 2 (two) times a day as needed . furosemide (LASIX) 20 MG tablet Take 20 mg by mouth daily . hydroCHLOROthiazide (HYDRODIURIL) 25 MG tablet Take 25 mg by mouth daily . ibuprofen (ADVIL,MOTRIN) 200 MG tablet Take 200 mg by mouth every 6 (six) hours as needed for pain . ibuprofen (ADVIL,MOTRIN) 800 MG tablet Take 1 (one) tablet (800 mg total) by mouth 2 (two) times a day. 60 tablet 1 lisinopril (PRINIVIL,ZESTRIL) 20 MG tablet Take 20 mg by mouth every evening . meclizine (ANTIVERT) 25 mg tablet Take 1 (one) tablet (25 mg total) by mouth every 6 (six) hours for 5 days . 20 tablet 0 montelukast (SINGULAIR) 10 mg tablet Take 10 mg by mouth daily . NARCAN 4 mg/actuation [address] Administer 1 spray into one nostril for known or suspected opioid overdose. If patient worsens or does not respond, may repeat in 2-3 minutes. . 1 Package 0 omeprazole (PRILOSEC) 40 MG capsule Take 1 (one) capsule (40 mg total) by mouth daily. 30 capsule 5 oxyCODONE-acetaminophen (PERCOCET) 10-325 mg per tablet Take 2 (two) tablets by mouth 3 (three) times a day (Days supply per fill: 30) M51.36 Start: 07/04/19. 180 tablet 0 predniSONE (DELTASONE) 10 MG tablet 60 mg daily on days 1 through 5, 40 mg on day 6, 20 mg on day 7, 20 mg on day 8, 10 mg on day 9, and 5 mg on day 10 . 40 tablet 0 promethazine (PHENERGAN) 25 MG tablet Take 25 mg by mouth every 6 (six) hours as needed for nausea. ranitidine (ZANTAC) 300 MG tablet Take 1 (one) tablet (300 mg total) by mouth nightly. 30 tablet 5 rOPINIRole (REQUIP) 2 MG tablet Take 2 mg by mouth 3 (three) times a day Reasons: Extreme Discomfort in Calves when Sitting or Lying Down. sertraline (ZOLOFT) 100 MG tablet Take 100 mg by mouth daily . SUMAtriptan (IMITREX) 100 MG tablet Take 1 (one) tablet (100 mg total) by mouth as needed for migraine. 6 tablet 0 tiotropium (SPIRIVA) [address] 18 mcg into inhaler and inhale daily . tiZANidine (ZANAFLEX) 4 MG tablet Take 1 (one) tablet (4 mg total) by mouth 3 (three) times a day .90 tablet 2 traZODone (DESYREL) 50 MG tablet Take 50 mg by mouth daily . No current facility-administered medications for this visit. Past Medical History: Diagnosis Date Arthritis osteo Asthma 08/23/2014 Benign hypertension 04/01/2015 Cataract 08/23/2014 immature Chronic pain disorder rt foot, hx 4 foot fractures; calves of legs cause pain,muscle spasms Congestive heart failure (HCC) 10/13/2015 patient denies COPD (chronic obstructive pulmonary disease) (HCC) Depression Diarrhea Fibromyalgia, primary GERD (gastroesophageal reflux disease) patient denies History of cardiac cath 2005 normal reported by patient History of echocardiogram History of stress test 09/08/2015 Hypertension controlled Migraines Obesity Pneumonia x2 , had 2 pneumonia shots Restless legs syndrome Shoulder joint pain rt plan Arthroscopy rotator cuff repair Sleep apnea, obstructive unable to use cpap; recently received mouthpiece but not using Varicose veins of both lower extremities Past Surgical History: Procedure Laterality Date AR'SCOPY SHOULD SAD, SLAP, RCR, RESECT DISTAL CLAVICLE, BICEPS TENODESIS Right 11/04/2015 Procedure: AR'SCOPY RT SHOULD GREGORY, RCR, & BICEPS POSS OPEN; Surgeon: Jack Dave MD; Location: [facility] Main OR; Service: ARTHROPLASTY HIP TOTAL Right 02/27/2018 Procedure: RIGHT TOTAL HIP ARTHROPLASTY; Surgeon: Gabo Sears MD; Location: [facility] Main OR; Service: Orthopedic BACK SURGERY 2008,2002 x 2 Low back, BLADDER SUSPENSION bladder tie-up BRONCHOSCOPY CARDIAC CATHETERIZATION 08/2006 [facility] COLONOSCOPY FOOT SURGERY Right foot hammer, toes; 3 surg FOOT SURGERY Right hammer toes, fractuered foot;3 surg HYSTERECTOMY [facility] BSO Bladder suspension JOINT REPLACEMENT Right TKR KNEE SURGERY Left 2013 arthroscopic LAMINECTOMY DECOMP LUMBAR W/FUSION 4 OR MORE LVL N/A 11/08/2017 Procedure: HARDWARE REMOVAL L4-S1, DECOMPRESSION/FUSION L2-L4, PLIF, REINSTRUMENT L2-S1; Surgeon: Alejo Hummel MD; Location: [facility] Main OR; Service: Orthopedic LUNG SURGERY Right lower lobe; biopsy taken and nodule was benign NECK SURGERY 2008,2013 x 2 C5-6-7 anterior, 2nd included T1- C5-6-7 ROTATOR CUFF REPAIR Left TONSILLECTOMY VEIN SURGERY 2014 vein taken out in lower Left leg in [place] Dr. Jesica SANCHES TOOTH EXTRACTION Social History Socioeconomic History Marital status: Spouse name: Derrek Number of children: Not on file Years of education: Not on file Highest education level: Not on file Occupational History Not on file Social Needs Financial resource strain: Not on file Food insecurity: Worry: Not on file Inability: Not on file Transportation needs: Medical: Not on file Non-medical: Not on file Tobacco Use Smoking status: Never Smoker Smokeless tobacco: Never Used Substance and Sexual Activity Alcohol use: Yes Alcohol/week: 0.0 standard drinks Comment: sometimes 10 a year; rare Drug use: No Sexual activity: Yes Partners: Male control/protection: None Lifestyle Physical activity: Days per week: Not on file Minutes per session: Not on file Stress: Not on file Relationships Social connections: Talks on phone: Not on file Gets together: Not on file Attends sabianist service: Not on file Active member of club or organization: Not on file Attends meetings of clubs or organizations: Not on file Relationship status: Not on file Other Topics Concern Not on file Social History Narrative Merged History Encounter Family History Problem Relation Age of Onset Hypertension Father Heart disease Father Diabetes Father Breast cancer Mother ; cancer went to brain, liver and lungs Brain cancer Mother Liver cancer Mother Lung cancer Mother Hypertension Sister Diabetes Sister Hypertension Other siblings Diabetes Other siblings No Known Problems Brother Surgical complications Neg Hx Anesthesia problems Neg Hx Clotting disorder Neg Hx Deep vein thrombosis Neg Hx Pulmonary embolism Neg Hx Social History Substance and Sexual Activity Alcohol Use Yes Alcohol/week: 0.0 standard drinks Comment: sometimes 10 a year; rare Social History Substance and Sexual Activity Drug Use No Social History Tobacco Use Smoking Status Never Smoker Smokeless Tobacco Never Used Review of Systems Constitutional: Negative for appetite change, diaphoresis, fatigue and fever. HENT: Negative for dental problem, hearing loss and trouble swallowing. Eyes: Negative for pain, discharge and visual disturbance. Wears glasses Respiratory: Positive for shortness of breath. Negative for cough and wheezing. Cardiovascular: Negative for chest pain and leg swelling. Gastrointestinal: Negative for constipation, diarrhea, nausea and vomiting. Genitourinary: Negative for difficulty urinating and dysuria. Musculoskeletal: Positive for back pain and myalgias. Skin: Negative for pallor and rash. Neurological: Positive for dizziness and light-headedness. Chronic vertigo Psychiatric/Behavioral: The patient is not nervous/anxious. B/B control:0 - Normal Uses cane Physical Exam Constitutional: She is oriented to person, place, and time. She appears well- developed and well-nourished. HENT: Head: Normocephalic and atraumatic. Eyes: Pupils are equal, round, and reactive to light. Conjunctivae are normal. Neck: Normal range of motion. Neck supple. Cardiovascular: Normal rate and regular rhythm. Pulmonary/Chest: Effort normal. No respiratory distress. Musculoskeletal: Lumbar back: She exhibits tenderness and pain. Neurological: She is alert and oriented to person, place, and time. Skin: Skin is warm and dry. Psychiatric: Her behavior is normal. Judgment and thought content normal. 64 y.o. BP 138/80 (BP Location: Left arm, Patient Position: Sitting) Pulse (!) 105 Wt 83 kg (183 lb) BMI 29.54 kg/m 1. Postlaminectomy syndrome of lumbar region oxyCODONE-acetaminophen (PERCOCET) 10-325 mg per tablet DISCONTINUED: oxyCODONE-acetaminophen (PERCOCET) 10-325 mg per tablet TREATMENT GOAL: Medication provides relief allowing increased functional activities. ASSESSMENT/PLAN: Refill Oxycodone-APAP 10-325 mg 08/03 and 09/02, follow up 2 months. Pattern of pain is reported as Consistent I will continue to monitor for addiction and aberrant behavior, will use opiates with goal of weaning to lowest effective dose, will maximize doses of neuropathic agents and adjuvant therapies. For any new medications prescribed today, patient was educated about indications for the medication, how to take the medication and potential side effects of the medications. I have discussed the findings of this office visit with him. The discussion included a complete verbal explanation of the examination results, diagnosis and current treatment plan. The treatment plan is discussed, covering the risk and benefits as well as possible side effects. The patient questions are addressed. The patient verbalizes understanding and agreement with planned treatment. The patient is reminded that there is a risk of addiction. Patient has been counseled about the risk and benefit of opioid medications. The patient has been encourged to explore non-medication alternatives to manage pain. The patient is subject to being randomly assessed by oral/urine drug screening and/or pill count as needed to monitor patient compliance and adherance to the plan of care. OARRS/NARxCHECK Report Received and Assessed: 07/31/19 Date controlled substance agreement signed: 01/22/18 (ap) Date of last drug screen: 06/01/19 (ap) documented in this encounter* Jaymie Arredondo, [employer] - 08/06/2019 2:30 PM EDT [facility] TREATMENT NOTE Today's Date 08/06/2019 Patient Name: Matthew Perez Date of : 1955 Current Visit #: 12/08 Authorized Visits: 99 Case Name: Lumbar - PT History: Pre-Treatment Pain Scale: 2 Symptoms: B knees. Functional Diagnosis: 1. History of falling 2. DDD (degenerative disc disease), lumbar Clinical Information: Subjective: Pt reports taking 3 #10 Percocets before coming to treatment today. Today's Physical/Functional Problems being addressed: Instability with standing and gait, LBP Risks and benefits of treatment discussed with patient/post acute care nurse: yes Objective Treatments: Physical Therapy Exercise Log - 08/06/19 1393 OTHER Precautions/Contraindications Varicose veins, AYO, Migraines, HTN, GERD, FM, Depression, COPD, Asthma, Lumbar fusion, Cervical fusion Notes 2:35-3:20 Vitals Pt goes by Matthew Rose Therapeutic Exercise ([id number]) Intervention Seated abdominal bracing 10x5 ea Parameters Repeated Flexion In Sitting 10x, No Effect Intervention Seated marching 10x ea; alternating LAQ 10x ea, slight R thigh pain reported with eachof these Parameters Seated ant/post pelvic tilts 10x ea, increased LBP noted and no change in R thigh s/s. Intervention HEP updated. Parameters -- Intervention -- Parameters -- Intervention -- Parameters -- Intervention -- Neuro Re-Ed ([id number]) Intervention HEP review: Seated Smooth pursuits 4-way 10x ea. Parameters Standing X1 ex's 8 ft away L/R, up/down x1 min ea, going from L to R caused a little more instability. Standing for this long aggitated R thigh pain. Intervention Seated head turns L/R 10x ea; up/down 10x ea, B diagonals 10x ea, no s/s with L/R or diagonals, increased ear ringing with up/down. Parameters Sit to stand 10x, no s/s, some pain in knees with this. Intervention Standing head turns: L/R, up/down 10x ea, going from down to up the pitch of ringing in ears gets higher Parameters Seated X1 ex's up/down, L/R 10x ea, no increased s/s reported. PT Treatment Times Therex Total Time 12 Neuro Re-Ed Total Time 28 Direct Treatment Time 40 Total Treatment Time 45 Goals: Physical Therapy Ortho Goals: Short term goals to be met 2 weeks from 07/27/2019 A. Independent with home exercise program B. Centralize or abolish symptoms to increase ADL's/work tolerance C. Display appropriate posture and body mechanics >=75% of PT sessions to increase healing and increase postural and functional tolerances D. Improve strength B LE => 4+/5 all motions and able to walk > 200 ft without increased lumbar symptoms to allow pt to be more active outside of the home. E. Pt to demonstrate the ability to amb while turning her head without unsteadiness or LOB to decrease risk of falls in the future. 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 Pt to report being able to help with housework and cooking more often throughout the day, to report feeling 50% less unsteadiness when on her feet, and to be more active during activities around the home. Back Pain Index Goal = 60% , IE 84% Pt's Goal: Lower my pain as much as possible. I'll be honest with you. I think it's going to bringon a lot of pain. I don't think it's going to help. The doctor said that I had to do this to get myMRI. Initial Evaluation 07/27/2019 Patient Education: Written HEP with patient demonstrated understanding and verbalized understanding. Post-Treatment Pain Scale: 3-4/10 pain LB and into R thigh, B knees. Assessment: Patient had an expected response to treatment. Pt with mild s/s with turning head from L to R. Mild increases in ringing in ears with up/down head movements. Standing for X1 ex's producedR thigh pain that did not go away during treatment. Seated pelvic tilts increased LBP. No lumbar movement found to decrease LB or R LE pain. Skilled Intervention demonstrated by modifications of treatment per exercise log including increased intensity and assessment of patient's response and safety interventions per exercise log. Progress towards goals as expected. Plan for Next Visit: Treatment Visit with focus on habituation ex's to work on UVL. Seated LB ex's to pt tolerance, as standing activities are limited due to pain. Jaymie Arredondo PTA STATE LICENSE, [employer].[id number] documented in this encounter* Jaymie Arredondo, [employer] - 08/20/2019 1:45 PM EDT [facility] TREAT[facility] NOTE Today's Date 08/20/2019 Patient Name: Matthew Perez Date of : 1955 Current Visit #: 02/05 Authorized Visits: 99 Case Name: Lumbar - PT History: Pre-Treatment Pain Scale: 2 Symptoms: R hip Functional Diagnosis: 1. History of falling 2. DDD (degenerative disc disease), lumbar Clinical Information: Subjective: Pt feels more stead on her feet since beginning eye ex's. She has not been stumbling asmuch. Today's Physical/Functional Problems being addressed: Slight PAGAN L [employer], pain in R hip, decreased trunk stability Risks and benefits of treatment discussed with patient/post acute care nurse: yes Objective Treatments: Physical Therapy Exercise Log - 08/20/19 0702 OTHER Precautions/Contraindications Varicose veins, AYO, Migraines, HTN, GERD, FM, Depression, COPD, Asthma, Lumbar fusion, Cervical fusion Notes 1:47-2:26 Vitals Pt goes by Matthew Rose Therapeutic Exercise ([id number]) Intervention Seated hip adductor squeezes 10x10 ea Parameters Seated alternating hip adductor squeeze with LAQ 10x ea Intervention Seated abdominal bracing 10x5 each Parameters Sit to stand holding OB 10x Neuro Re-Ed ([id number]) Intervention Standing ball arcs 10x ea, no instability noted, but R shoulder pain noted. Parameters Standing romberg x1 ex's 10 ft away up/down and L/R x1 min ea, increased feeling of movement with L/R Intervention Seated head turns L/R, up/down, B diagonals, L/R brought on ringing in ears Parameters Romberg stance EC x1 min, minimal trunk sway noted, no s/s of dizziness noted Intervention Romberg stance head turns L/R, up/down, B diagonals 10x ea, minimal trunk sway noted. Parameters Soft foam: heel raises x1 min; lateral weight shifting x1 min, no UE assist PT Treatment Times Therex Total Time 8 Neuro Re-Ed Total Time 30 Direct Treatment Time 38 Total Treatment Time 39 Goals: Physical Therapy Ortho Goals: Short term goals to be met 2 weeks from 07/27/2019 A. Independent with home exercise program B. Centralize or abolish symptoms to increase ADL's/work tolerance C. Display appropriate posture and body mechanics >=75% of PT sessions to increase healing and increase postural and functional tolerances D. Improve strength B LE => 4+/5 all motions and able to walk > 200 ft without increased lumbar symptoms to allow pt to be more active outside of the home. E. Pt to demonstrate the ability to amb while turning her head without unsteadiness or LOB to decrease risk of falls in the future. 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 Pt to report being able to help with housework and cooking more often throughout the day, to report feeling 50% less unsteadiness when on her feet, and to be more active during activities around the home. Back Pain Index Goal = 60% , IE 84% Pt's Goal: Lower my pain as much as possible. I'll be honest with you. I think it's going to bringon a lot of pain. I don't think it's going to help. The doctor said that I had to do this to get myMRI. Initial Evaluation 07/27/2019 Patient Education: Verbal HEP with patient verbalized understanding. Post-Treatment Pain Scale: 1/10 R LB Assessment: Patient had an expected response to treatment. Pt had better tolerance to ex's performed today with decrease in pain c/o from beginning of treatment to end of treatment. Centralization ofs/s to R LB from R hip occurred as well. Able to challenge pt's vestibular s/s more with EC and romberg stance activities without aggravating LBP. Skilled Intervention demonstrated by modifications of treatment per exercise log including increased intensity and assessment of patient's response and safety interventions per exercise log. Progress towards goals as expected. Plan for Next Visit: Treatment Visit with focus on eye ex's, habituation ex's, and gentle core stability in standing to pt tolerance. Jaymie Arredondo PTA STATE LICENSE, [employer].[id number] documented in this encounter* Jaymie Arredondo PTA - 08/27/2019 3:15 PM EDT [facility] TREAT[facility] NOTE Today's Date 08/27/2019 Patient Name: Matthew Perez Date of : 1955 Current Visit #: 03/07 Authorized Visits: 99 Case Name: Lumbar - PT History: Pre-Treatment Pain Scale: 3-4/10 Symptoms: R groin Functional Diagnosis: 1. History of falling 2. DDD (degenerative disc disease), lumbar Clinical Information: Subjective: Pt asks at each session, how many more sessions do I need to do to get an MRI. Today's Physical/Functional Problems being addressed: Slight PAGAN, decreased balance, R LE radicular s/s. Risks and benefits of treatment discussed with patient/post acute care nurse: yes Objective Treatments: Physical Therapy Exercise Log - 08/27/19 1514 OTHER Precautions/Contraindications Varicose veins, AYO, Migraines, HTN, GERD, FM, Depression, COPD, Asthma, Lumbar fusion, Cervical fusion Notes 3:12-3:53 Vitals Pt goes by Matthew Rose Therapeutic Exercise ([id number]) Intervention Seated hip adductor squeezes 10x10 ea Parameters Seated alternating hip adductor squeeze with LAQ 10x ea Intervention Sit to stand from standard height chair holding OB 10x, more challenging to get up from this height without UE assist. Parameters Standing hip abd/ext 10x ea leg, HS curls 10x ea, no UE assist, pain elevated to almosta 7 afterward in R LB/hip/lat thigh/groin. Neuro Re-Ed ([id number]) Intervention Romberg ball arcs 10x ea, pain down R LE reported when moving ball from R to L. Parameters Romberg head turns L/R and up/down 10x ea. Intervention L modified SLS at 4 step: alt chest press 10x ea; alt bicep curls 10x ea Parameters R modified SLS at 4 step: head turns L/r and up/down 10x ea Intervention Alternating step taps at 4 step 15x ea Parameters Romberg x1 ex's L/R and up/down x1 min ea, no UE assist, increased ringing in ear with increased head movements. Intervention Foam: marching x1 min; heel-toe raises x1 min PT Treatment Times Therex Total Time 12 Neuro Re-Ed Total Time 30 Direct Treatment Time 42 Total Treatment Time 42 Goals: Physical Therapy Ortho Goals: Short term goals to be met 2 weeks from 07/27/2019 A. Independent with home exercise program B. Centralize or abolish symptoms to increase ADL's/work tolerance C. Display appropriate posture and body mechanics >=75% of PT sessions to increase healing and increase postural and functional tolerances D. Improve strength B LE => 4+/5 all motions and able to walk > 200 ft without increased lumbar symptoms to allow pt to be more active outside of the home. E. Pt to demonstrate the ability to amb while turning her head without unsteadiness or LOB to decrease risk of falls in the future. 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 Pt to report being able to help with housework and cooking more often throughout the day, to report feeling 50% less unsteadiness when on her feet, and to be more active during activities around the home. Back Pain Index Goal = 60% , IE 84% Pt's Goal: Lower my pain as much as possible. I'll be honest with you. I think it's going to bringon a lot of pain. I don't think it's going to help. The doctor said that I had to do this to get myMRI. Initial Evaluation 07/27/2019 Patient Education: Verbal HEP with patient verbalized understanding. Post-Treatment Pain Scale: 7/10 R LB/hip/groin/lat thigh Assessment: Patient had an expected response to treatment. Pt able to complete increased standing ex's with increased pain c/o reported. Pt reports pain always increases after therapy even when she gets home and sits down it increases. Pt has increased ringing in ears with increased head movements.Pt states her balance regressed a little after last treatment session. Mild instability noted with balance activities performed today with self correction of balance noted. Skilled Intervention demonstrated by modifications of treatment per exercise log including increased intensity and assessment of patient's response and safety interventions per exercise log. Progress towards goals: will update goals at next session. Plan for Next Visit: Recheck by PT at next session. Jaymie Arredondo PTA STATE LICENSE, [employer].[id number] documented in this encounter* Orin Esposito, PT - 09/05/2019 12:00 PM EST [facility] TREAT[facility] NOTE Today's Date 09/05/2019 Patient Name: Matthew Perez Date of : 1955 Current Visit #: 04/07 Authorized Visits: 99 Case Name: Lumbar - PT History: Pre-Treatment Pain Scale: 3 Symptoms: Functional Diagnosis: 1. History of falling 2. DDD (degenerative disc disease), lumbar Clinical Information: Subjective: Pt states that she feels like her headaches are worse after doing some of her balance exercises. She came in with a picture of her x-ray and she is questioning how physical therapy can help with this. She is requesting to be rechecked in order to be able to get her MRI. Objective MMT R _/5 L _/5 Hip extension Hip abduction Hip flexion 4 4 Knee flexion 5 5 Knee extension 4+ 4+ Ankle dorsiflexion Ankle plantarflexion Extensor hallucis Treatments: Physical Therapy Exercise Log - 09/05/19 1204 OTHER Precautions/Contraindications Varicose veins, AYO, Migraines, HTN, GERD, FM, Depression, COPD, Asthma, Lumbar fusion, Cervical fusion Notes [id number] Vitals Pt goes by Matthew Rose Therapeutic Exercise ([id number]) Intervention Nustep B UE/LE L4 8 min Parameters Back Pain Index 76% Intervention Reassessment and goal review Parameters Back Pain Index 76% Intervention Seated abdominal bracing 10 sec hold x10 Parameters Abdominal bracing with sit to stand 15x Intervention Alt hip abd B with abdominal bracing 1 min, Alt hip ext B with abdominal bracing 1 min PT Treatment Times Therex Total Time 42 Direct Treatment Time 42 Total Treatment Time 42 Goals: Physical Therapy Ortho Goals: Short term goals to be met 2 weeks from 07/27/2019 A. Independent with home exercise program B. Centralize or abolish symptoms to increase ADL's/work tolerance C. Display appropriate posture and body mechanics >=75% of PT sessions to increase healing and increase postural and functional tolerances D. Improve strength B LE => 4+/5 all motions and able to walk > 200 ft without increased lumbar symptoms to allow pt to be more active outside of the home. E. Pt to demonstrate the ability to amb while turning her head without unsteadiness or LOB to decrease risk of falls in the future. [facility] goals to be met 4 weeks from 07/27/2019 1. Pt to report being able to help with housework and cooking more often throughout the day, to report feeling 50% less unsteadiness when on her feet, and to be more active during activities around the home. Back Pain Index Goal = 60% , IE 84% Pt's Goal: Lower my pain as much as possible. I'll be honest with you. I think it's going to bringon a lot of pain. I don't think it's going to help. The doctor said that I had to do this to get myMRI. Initial Evaluation 07/27/2019 Patient Education: Continue with home exercises and trunk stabilization. Assessment: Matthew has been attending therapy for lumbar pain and to help her to reduce the falls that she is experiencing. She does not feel that her low back is improving with therapy, but she does feel that her balance has returned to her previous baseline. She has continued to express interest inbeing referred back to the physician so she can get her MRI done. Based on the fact that she has not made progress thus far it is appropriate to refer her back at this time. She does have lumbar stabilization exercises to work on at home to help to improve her strength in the future. See goals for all objective and functional information. Skilled Intervention demonstrated by modifications of treatment per exercise log including assessment of patient's response and safety interventions per exercise log. Plan for Next Visit: Pt is being discharged at this time and is being referred back to referring physician. Orin Esposito PT STATE LICENSE, PT.[id number] documented in this encounter* Eyal Duron MD - 11/27/2019 2:34 PM EST Nam: Matthew Perez Age: 64 y.o. : 1955 Date: 11/27/2019 Provider: Eyal Duron MD No chief complaint on file. HISTORY OF PRESENT ILLNESS: Matthew Perez is a 64 y.o. female who presents complaining of pain in the low back, hips Bilateraland legs Bilateral. Current symptoms include: aching, dull, sharp and throbbing in character; 7/10 in severity. Symptoms have not changed from the previous visit. Exacerbating factors identified by the patient are bending backwards, bending forwards, increased intrathoracic pressure (cough, sneeze,etc.), standing and walking. PATIENT COMPLAINS OF POOR NIGHT SLEEP AND I SUGGESTED SLEEP MEDICATION. Analgesia: Patient has adequate analgesia with the use of current opioid pain medication. Activities of Daily Living: Patient's activities of daily living and psychological functioning haveimproved sufficiently with use of the current opioid medication. Adverse Effects: Patient reports no adverse effects with use of the opioid pain medication. Aberrant Drug-Taking Behavior: Patient has demonstrated no aberrant drug taking behaviors with no deviation from prescription. Allergies Allergen Reactions Ibuprofen GI Intolerance Lyrica [Pregabalin] Other (See Comments) nightmares Duloxetine GI Intolerance Nausea Metformin GI Intolerance Current Outpatient Medications Medication Sig Dispense Refill albuterol (PROVENTIL) 2.5 mg /3 mL (0.083 %) nebulizer solution Take 2.5 mg by nebulization daily as needed . budesonide-formoterol (SYMBICORT) 160-4.5 mcg/actuation inhaler Inhale 2 puffs 2 (two) times a day. clonazePAM (KLONOPIN) 1 MG tablet Take 1 mg by mouth 2 (two) times a day as needed . furosemide (LASIX) 20 MG tablet Take 20 mg by mouth daily . hydroCHLOROthiazide (HYDRODIURIL) 25 MG tablet Take 25 mg by mouth daily . ibuprofen (ADVIL,MOTRIN) 200 MG tablet Take 200 mg by mouth every 6 (six) hours as needed for pain . lisinopril (PRINIVIL,ZESTRIL) 20 MG tablet Take 20 mg by mouth every evening . montelukast (SINGULAIR) 10 mg tablet Take 10 mg by mouth daily . NARCAN 4 mg/actuation [address] Administer 1 spray into one nostril for known or suspected opioid overdose. If patient worsens or does not respond, may repeat in 2-3 minutes. . 1 Package 0 [START ON 01/01/2020] oxyCODONE-acetaminophen (PERCOCET) 10-325 mg per tablet Take 2 (two) tablets bymouth 3 (three) times a day (Days supply per fill: 30) M51.36 Start: 01/01/20. 180 tablet 0 predniSONE (DELTASONE) 10 MG tablet 60 mg daily on days 1 through 5, 40 mg on day 6, 20 mg on day 7, 20 mg on day 8, 10 mg on day 9, and 5 mg on day 10 . 40 tablet 0 promethazine (PHENERGAN) 25 MG tablet Take 25 mg by mouth every 6 (six) hours as needed for nausea. rOPINIRole (REQUIP) 2 MG tablet Take 2 mg by mouth 3 (three) times a day Reasons: Extreme Discomfort in Calves when Sitting or Lying Down. sertraline (ZOLOFT) 100 MG tablet Take 100 mg by mouth daily . tiotropium (SPIRIVA) [address] 18 mcg into inhaler and inhale daily . traZODone (DESYREL) 50 MG tablet Take 50 mg by mouth daily . ibuprofen (ADVIL,MOTRIN) 800 MG tablet Take 1 (one) tablet (800 mg total) by mouth 2 (two) times a day. 60 tablet 1 meclizine (ANTIVERT) 25 mg tablet Take 1 (one) tablet (25 mg total) by mouth every 6 (six) hours for 5 days . 20 tablet 0 omeprazole (PRILOSEC) 40 MG capsule Take 1 (one) capsule (40 mg total) by mouth daily. 30 capsule 5 ranitidine (ZANTAC) 300 MG tablet Take 1 (one) tablet (300 mg total) by mouth nightly. 30 tablet 5 SUMAtriptan (IMITREX) 100 MG tablet Take 1 (one) tablet (100 mg total) by mouth as needed for migraine. 6 tablet 0 No current facility-administered medications for this visit. Past Medical History: Diagnosis Date Arthritis osteo Asthma 08/23/2014 Benign hypertension 04/01/2015 Cataract 08/23/2014 immature Chronic pain disorder rt foot, hx 4 foot fractures; calves of legs cause pain,muscle spasms Congestive heart failure (HCC) 10/13/2015 patient denies COPD (chronic obstructive pulmonary disease) (HCC) Depression Diarrhea Fibromyalgia, primary GERD (gastroesophageal reflux disease) patient denies History of cardiac cath 2005 normal reported by patient History of echocardiogram History of stress test 09/08/2015 Hypertension controlled Migraines Obesity Pneumonia x2 , had 2 pneumonia shots Restless legs syndrome Shoulder joint pain rt plan Arthroscopy rotator cuff repair Sleep apnea, obstructive unable to use cpap; recently received mouthpiece but not using Varicose veins of both lower extremities Past Surgical History: Procedure Laterality Date DEMETRI SHOULD SAD, SLAP, RCR, RESECT DISTAL CLAVICLE, BICEPS TENODESIS Right 11/04/2015 Procedure: AR'SCOPY RT SHOULD GREGORY, RCR, & BICEPS POSS OPEN; Surgeon: Jack Dave MD; Location: [facility] Main OR; Service: ARTHROPLASTY HIP TOTAL Right 02/27/2018 Procedure: RIGHT TOTAL HIP ARTHROPLASTY; Surgeon: Gabo Sears MD; Location: [facility] Main OR; Service: Orthopedic BACK SURGERY 2008,2002 x 2 Low back, BLADDER SUSPENSION bladder tie-up BRONCHOSCOPY CARDIAC CATHETERIZATION 08/2006 [facility] [place] COLONOSCOPY FOOT SURGERY Right foot hammer, toes; 3 surg FOOT SURGERY Right hammer toes, fractuered foot;3 surg HYSTERECTOMY CARLOS MANUEL BSO Bladder suspension JOINT REPLACEMENT Right TKR KNEE SURGERY Left 2014 arthroscopic LAMINECTOMY DECOMP LUMBAR W/FUSION 4 OR MORE LVL N/A 11/08/2017 Procedure: HARDWARE REMOVAL L4-S1, DECOMPRESSION/FUSION L2-L4, PLIF, REINSTRUMENT L2-S1; Surgeon: Alejo Hummel MD; Location: [facility] Main OR; Service: Orthopedic LUNG SURGERY Right lower lobe; biopsy taken and nodule was benign NECK SURGERY 2008,2013 x 2 C5-6-7 anterior, 2nd included T1- C5-6-7 ROTATOR CUFF REPAIR Left TONSILLECTOMY VEIN SURGERY 2014 vein taken out in lower Left leg [place] WISDOM TOOTH EXTRACTION Social History Socioeconomic History Marital status: Spouse name: Derrek Number of children: Not on file Years of education: Not on file Highest education level: Not on file Occupational History Not on file Social Needs Financial resource strain: Not on file Food insecurity Worry: Not on file Inability: Not on file Transportation needs Medical: Not on file Non-medical: Not on file Tobacco Use Smoking status: Never Smoker Smokeless tobacco: Never Used Substance and Sexual Activity Alcohol use: Yes Alcohol/week: 0.0 standard drinks Comment: sometimes 10 a year; rare Drug use: No Sexual activity: Yes Partners: Male control/protection: None Lifestyle Physical activity Days per week: Not on file Minutes per session: Not on file Stress: Not on file Relationships Social connections Talks on phone: Not on file Gets together: Not on file Attends sabianist service: Not on file Active member of club or organization: Not on file Attends meetings of clubs or organizations: Not on file Relationship status: Not on file Other Topics Concern Not on file Social History Narrative Merged History Encounter Family History Problem Relation Age of Onset Hypertension Father Heart disease Father Diabetes Father Breast cancer Mother ; cancer went to brain, liver and lungs Brain cancer Mother Liver cancer Mother Lung cancer Mother Hypertension Sister Diabetes Sister Hypertension Other siblings Diabetes Other siblings No Known Problems Brother Surgical complications Neg Hx Anesthesia problems Neg Hx Clotting disorder Neg Hx Deep vein thrombosis Neg Hx Pulmonary embolism Neg Hx Social History Substance and Sexual Activity Alcohol Use Yes Alcohol/week: 0.0 standard drinks Comment: sometimes 10 a year; rare Social History Substance and Sexual Activity Drug Use No Social History Tobacco Use Smoking Status Never Smoker Smokeless Tobacco Never Used Review of Systems Constitutional: Negative for activity change and appetite change. HENT: Negative for dental problem, hearing loss, sinus pressure and trouble swallowing. Eyes: Positive for visual disturbance. Respiratory: Negative for cough. Cardiovascular: Negative for chest pain and leg swelling. Gastrointestinal: Negative for constipation. Musculoskeletal: Positive for arthralgias, back pain and gait problem. Psychiatric/Behavioral: Positive for sleep disturbance. The patient is nervous/anxious. B/B control:0 - Normal Walking normally Physical Exam Constitutional: She is oriented to person, place, and time. She appears well- developed and well-nourished. She appears distressed. HENT: Head: Normocephalic and atraumatic. Cardiovascular: Normal rate and regular rhythm. Musculoskeletal: General: Tenderness present. Neurological: She is alert and oriented to person, place, and time. Skin: Skin is warm and dry. Psychiatric: Her behavior is normal. Judgment and thought content normal. Ortho Exam 64 y.o. BP 135/80 (BP Location: Right arm, Patient Position: Sitting, BP Cuff Size: Adult) Pulse (!) 108 Ht 5' 6 Wt 85.1 kg (187 lb 9.6 oz) BMI 30.28 kg/m 1. Encounter for long-term use of opiate analgesic 2. Postlaminectomy syndrome of lumbar region oxyCODONE-acetaminophen (PERCOCET) 10-325 mg per tablet DISCONTINUED: oxyCODONE-acetaminophen (PERCOCET) 10-325 mg per tablet ASSESSMENT/PLAN: MEDS REFILL, F/U 2 MONTH , REMERON 15 MG Consistent OARRS/NARxCHECK Report Received and Assessed: 11/27/19 Date controlled substance agreement signed: 01/22/19 (AP) Date of last drug screen: 06/01/19 (AP) I will continue to monitor for addiction and aberrant behavior, will use opiates with goal of weaning to lowest effective dose, will maximize doses of neuropathic agents and adjuvant therapies. For any new medications prescribed today, patient was educated about indications for the medication, how to take the medication and potential side effects of the medications. We have discussed the findings of this office visit. The discussion included a complete verbal explanation of the examination results, diagnosis and current treatment plan. The treatment plan is discussed, covering the risk and benefits as well as possible side effects. The patient's questions were addressed. The patient verbalizes understanding and agreement with planned treatment. The patient is reminded that there is a risk of addiction. Patient has been counseled about the risk and benefit of opioid medications. The patient has been encourged to explore non-medication alternatives to manage pain. The patient is subject to being randomly assessed by oral/urine drug screening and/or pill count as needed to monitor patient compliance and adherance to the plan of care. documented in this encounter* Alana Mi, PT - 12/31/2019 4:15 PM EST [facility] Evaluation Today's Date 01/01/2020 Patient Name: Matthew Perez Date of : 1955 Case Name: Balance disorder Functional Diagnosis: 1. Balance disorder PMHx includes obesity, migraines, HTN, fibromyalgia, chronic pain disorder, COPD, depression, asthma, OA, R JUAN 2018. Clinical Information: Subjective Referring Diagnosis: R26.89 (ICD-10-CM) - Balance disorder History of Present Illness Chief Complaint/ Mechanism of Injury: Pt is a 64 yo female with c/o frequent stumbling and falling.Tends to lose her balance to the R. States she feels like she loses her balance for no reason, sometimes when walking and sometimes while standing still. States she had a fall just standing, with herarms crossed over her chest, lost her balance backward. Fell several days ago coming into the housefrom the yard. [place] her R foot caught on something. She was able to catch herself. Two days ago, caught her toe on something in the home and fell forward into a closed door at the top of the stairs. States she has significant pain in the R hip/thigh following JUAN and TKA ~ 4 years ago. States she needs a R TSA and back surgery. Has had 2 surgeries on her neck previously. Has had 3 foot and 3 different toe surgeries in the R foot. C/o frequent burning pain in the R foot. RIGHT hip, knee foot pain are usually around 6/10, on average. LBP is 9/10 today. States pain is not too bad as she has not done hardly anything today. Has used cold packs for pain earlier today. States she takes caffeine pills to constrict the blood vessels and help with the pain. Denies numbness in the feet. Pt reports history of 1 acute episode of vertigo for which she states she was admitted to the hospital for several days. No c/o vertigo/dizziness ongoing. Functional Status Daily activity scale: sedentary Prior level of function: sedentary (6 months ago, about the same.) Sleep Assessment Average sleep duration (hrs): 4 (Sometimes I'm up literally all night long.Dozes off and on during the day.) Sleep disturbance: Sleep Disturbance (Disturbed by pain, thirst and dry mouth. ) Red Flags: decreased appetite Barriers to Care: Vision Fall risk screening Fallen 2 or more times in the last 12 months: Yes Injured as a result of a fall in the last 12 months: No Personal Goals: Find out what my balance problem is and take care of it. Social History Occupation: Pt is on Total Disability for back problems. Lives with in a 2 story home with basement. Handrails on most of it. Bedroom up. BR on 1st. [address] with handrail. Adventist, social, or cultural considerations to be made aware of before starting treatment: No Evaluation MMT Right ___/ 5 Left ___/ 5 Hip Flex 4 5 Hip Abd 4- 4 Hip Add Hip Ext Knee Flex Pain interferes 4/5 5 Knee Ext 5/5 pain 5 DF 5 5 PF 3+ 4 inversion 4 4 eversion 4 4 ABC score = 30% confidence TUG 14 seconds. Gait: antalgic. L LE slightly ER. Wide EBEN. Decreased martin. Tends to shift weight laterally. Decreased HS/TO Sit-stand:Relies on UE assist d/t pain in the LB and LE. Treatments: Physical Therapy Exercise Log - 12/31/19 8570 OTHER Precautions/Contraindications Rx: Balance issues Vitals Pt goes by Nexopia (95769) Intervention Next: check sensation in feet. NuStep LEs only, use lumbar roll. Standing hip, wall squats, step ups, step throughs, high december. Romberg/mod romberg. Treatment Plan: Frequency of Visits: twice per week Duration: 12 sessions Interventions: Therapeutic Exercise, Neuromuscular Re-Education, Therapeutic/ Functional Activities, Gait Training and Aquatic Therapy Rehab Potential: Fair to good Goals: Physical Therapy Ortho Goals: 1. Independent with HEP. 2. TOBIAS Balance test improved from 35/56 to > 45/56 for improved safety and confidence with gaitand MRADLs. 3. Able to ambulate combo of level ground, stairs, ramps and uneven terrain x 10 minutes with confidence and no LOB. 4. ABC Balance Confidence score improved from 30% to >= 50%. Personal Goals: Find out what my balance problem is and take care of it. Naz completed 12/31/19. BIW x 12 sessions. Patient Education provided: Clinical Impression: Pt is a 64 y.o. female who presents to the clinic with chronic back, multi-joint, R hip/foot/knee pain and hx of frequent falls. Pt displays impairments of strength, balance, proprioception, flexibility and endurance, resulting in functional limitations with transfers, gait, safety, ADLs and MRADLs. Pt is expected to benefit from individualized treatment plan in order to improve overall mobility and function. Alana Mi, PT STATE LICENSE, [id number] documented in this encounter* Eyal Duron MD - 01/29/2020 2:38 PM EDT Telephone Visit Via Phone Call Patient ID: Matthew Perez is a 64 y.o. female on the phone for 12 minutes Patient phone : [phone] This visit has been fully reviewed with the patient and verbal consent has been obtained. HPI: patient is isolated at her house , cancelled her appointments , cancelled PT , MRI C/spine. Pain is 7/10 , usually sharp. Knees are hurting with each step. Denies side effects of meds. Stated when was at [place] after her spine surgery was getting terrible care and does not want to go there.I suggested Dr Fraga for her low back and neck problems . The following portions of the patient's history were reviewed and updated as appropriate: allergies, current medications, past family history, past medical history, past social history, past surgicalhistory and problem list. Review of Systems Patient's Medications New Prescriptions No medications on file Previous Medications ALBUTEROL (PROVENTIL) 2.5 MG /3 ML (0.083 %) NEBULIZER SOLUTION Take 2.5 mg by nebulization daily as needed . BUDESONIDE-FORMOTEROL (SYMBICORT) 160-4.5 MCG/ACTUATION INHALER Inhale 2 puffs 2 (two) times a day. CLONAZEPAM (KLONOPIN) 1 MG TABLET Take 1 mg by mouth 2 (two) times a day as needed . FUROSEMIDE (LASIX) 20 MG TABLET Take 20 mg by mouth daily . HYDROCHLOROTHIAZIDE (HYDRODIURIL) 25 MG TABLET Take 25 mg by mouth daily . IBUPROFEN (ADVIL,MOTRIN) 200 MG TABLET Take 200 mg by mouth every 6 (six) hours as needed for pain . IBUPROFEN (ADVIL,MOTRIN) 800 MG TABLET Take 1 (one) tablet (800 mg total) by mouth 2 (two) times a day. LISINOPRIL (PRINIVIL,ZESTRIL) 20 MG TABLET Take 20 mg by mouth every evening . MECLIZINE (ANTIVERT) 25 MG TABLET Take 1 (one) tablet (25 mg total) by mouth every 6 (six) hours for 5 days . MIRTAZAPINE (REMERON RODRIGO-TAB) 15 MG DISINTEGRATING TABLET Dissolve 1 (one) tablet (15 mg total) on top of tongue nightly . MONTELUKAST (SINGULAIR) 10 MG TABLET Take 10 mg by mouth daily . NARCAN 4 MG/ACTUATION SPRY Administer 1 spray into one nostril for known or suspected opioid overdose. If patient worsens or does not respond, may repeat in 2-3 minutes. . OMEPRAZOLE (PRILOSEC) 40 MG CAPSULE Take 1 (one) capsule (40 mg total) by mouth daily. PREDNISONE (DELTASONE) 10 MG TABLET 60 mg daily on days 1 through 5, 40 mg on day 6, 20 mg on day 7, 20 mg on day 8, 10 mg on day 9, and 5 mg on day 10 . PROMETHAZINE (PHENERGAN) 25 MG TABLET Take 25 mg by mouth every 6 (six) hours as needed for nausea. RANITIDINE (ZANTAC) 300 MG TABLET Take 1 (one) tablet (300 mg total) by mouth nightly. ROPINIROLE (REQUIP) 2 MG TABLET Take 2 mg by mouth 3 (three) times a day Reasons: Extreme Discomfort in Calves when Sitting or Lying Down. SERTRALINE (ZOLOFT) 100 MG TABLET Take 100 mg by mouth daily . SUMATRIPTAN (IMITREX) 100 MG TABLET Take 1 (one) tablet (100 mg total) by mouth as needed for migraine. TIOTROPIUM (SPIRIVA) [address] 18 mcg into inhaler and inhale daily . TRAZODONE (DESYREL) 50 MG TABLET Take 50 mg by mouth daily . Modified Medications Modified Medication Previous Medication OXYCODONE-ACETAMINOPHEN (PERCOCET) 10-325 MG PER TABLET oxyCODONE-acetaminophen (PERCOCET) 10-325 mg per tablet Take 2 (two) tablets by mouth 3 (three) times a day (Days supply per fill: 30) M51.36 Start: 03/01/20. Take 2 (two) tablets by mouth 3 (three) times a day (Days supply per fill: 30) M51.36 Start: 01/01/20. Discontinued Medications No medications on file Assessment/Plan: meds refill, f/u 2 month Diagnoses and all orders for this visit: Encounter for long-term use of opiate analgesic Postlaminectomy syndrome of lumbar region - oxyCODONE-acetaminophen (PERCOCET) 10-325 mg per tablet; Take 2 (two) tablets by mouth 3 (three) times a day (Days supply per fill: 30) M51.36 Start: 03/01/20. Provider location: [facility] [address] [place] [id number] Patient location: [address] [place], [place] [id number] I have spent 11-20 minutes with the patient discussing current HPI. There are other unrelated non-urgent complaints, but due to the busy schedule and the amount of time I've already spent with her, time does not permit me to address these routine issues at today's visit. I've requested another appointment to review these additional issues. documented in this encounter* Elizabeth Ordaz MSW LSW - 02/13/2020 12:40 PM EDT SW proactive call this date. Result of Call:No answer KRISTY Horton LSW Pss Delivery Professional Primary [facility] Management documented in this encounter* Elizabeth Ordaz MSW LSW - 02/14/2020 10:49 AM EDT SW proactive call this date. Result of Call: No answer KRISTY Horton LSW Pss Delivery Professional [facility] Management documented in this encounter* Eyal Duron MD - 05/20/2020 2:06 PM EDT Nam: Matthew Perez Age: 65 y.o. : 1955 Date: 05/20/2020 Provider: Eyal Duron MD Chief Complaint Patient presents with Follow-up medication refill HISTORY OF PRESENT ILLNESS: Matthew Perez is a 65 y.o. female who presents complaining of pain in the neck, shoulders Bilateral, arms Bilateral, low back and legs Bilateral. Current symptoms include: aching, dull, sharp and throbbing in character; 6/10 in severity. Symptoms have worsened from the previous visit. Exacerbatingfactors identified by the patient are bending backwards, bending forwards, increased intrathoracic pressure (cough, sneeze, etc.), standing and walking. Cannot get really active because of the pain and spasms. Analgesia: Patient has adequate analgesia with the use of current opioid pain medication. Activities of Daily Living: Patient's activities of daily living and psychological functioning haveimproved sufficiently with use of the current opioid medication. Adverse Effects: Patient reports no adverse effects with use of the opioid pain medication. Aberrant Drug-Taking Behavior: Patient has demonstrated no aberrant drug taking behaviors with no deviation from prescription. Allergies Allergen Reactions Ibuprofen GI Intolerance Lyrica [Pregabalin] Other (See Comments) nightmares Duloxetine GI Intolerance Nausea Metformin GI Intolerance Current Outpatient Medications Medication Sig Dispense Refill albuterol (PROVENTIL) 2.5 mg /3 mL (0.083 %) nebulizer solution Take 2.5 mg by nebulization daily as needed . Anoro Ellipta 62.5-25 mcg/actuation DsDv budesonide-formoterol (SYMBICORT) 160-4.5 mcg/actuation inhaler Inhale 2 puffs 2 (two) times a day. clonazePAM (KLONOPIN) 1 MG tablet Take 1 mg by mouth 2 (two) times a day as needed . furosemide (LASIX) 20 MG tablet Take 20 mg by mouth daily . hydroCHLOROthiazide (HYDRODIURIL) 25 MG tablet Take 25 mg by mouth daily . ibuprofen (ADVIL,MOTRIN) 200 MG tablet Take 200 mg by mouth every 6 (six) hours as needed for pain . lisinopril (PRINIVIL,ZESTRIL) 20 MG tablet Take 20 mg by mouth every evening . montelukast (SINGULAIR) 10 mg tablet Take 10 mg by mouth daily . NARCAN 4 mg/actuation [address] Administer 1 spray into one nostril for known or suspected opioid overdose. If patient worsens or does not respond, may repeat in 2-3 minutes. . 1 Package 0 [START ON 07/07/2020] oxyCODONE-acetaminophen (PERCOCET) 10-325 mg per tablet Take 2 (two) tablets bymouth 3 (three) times a day (Days supply per fill: 30) M51.36 Start: 07/07/20. 180 tablet 0 predniSONE (DELTASONE) 10 MG tablet 60 mg daily on days 1 through 5, 40 mg on day 6, 20 mg on day 7, 20 mg on day 8, 10 mg on day 9, and 5 mg on day 10 . 40 tablet 0 promethazine (PHENERGAN) 25 MG tablet Take 25 mg by mouth every 6 (six) hours as needed for nausea. rOPINIRole (REQUIP) 2 MG tablet Take 2 mg by mouth 3 (three) times a day Reasons: Extreme Discomfort in Calves when Sitting or Lying Down. sertraline (ZOLOFT) 100 MG tablet Take 100 mg by mouth daily . tiotropium (SPIRIVA) [address] 18 mcg into inhaler and inhale daily . traZODone (DESYREL) 50 MG tablet Take 50 mg by mouth daily . ibuprofen (ADVIL,MOTRIN) 800 MG tablet Take 1 (one) tablet (800 mg total) by mouth 2 (two) times a day. 60 tablet 1 meclizine (ANTIVERT) 25 mg tablet Take 1 (one) tablet (25 mg total) by mouth every 6 (six) hours for 5 days . 20 tablet 0 mirtazapine (REMERON RODRIGO-TAB) 15 MG disintegrating tablet Dissolve 1 (one) tablet (15 mg total) on top of tongue nightly . 30 tablet 0 omeprazole (PRILOSEC) 40 MG capsule Take 1 (one) capsule (40 mg total) by mouth daily. 30 capsule 5 ranitidine (ZANTAC) 300 MG tablet Take 1 (one) tablet (300 mg total) by mouth nightly. 30 tablet 5 SUMAtriptan (IMITREX) 100 MG tablet Take 1 (one) tablet (100 mg total) by mouth as needed for migraine. 6 tablet 0 No current facility-administered medications for this visit. Past Medical History: Diagnosis Date Arthritis osteo Asthma 08/23/2014 Benign hypertension 04/01/2015 Cataract 08/23/2014 immature Chronic pain disorder rt foot, hx 4 foot fractures; calves of legs cause pain,muscle spasms Congestive heart failure (HCC) 10/13/2015 patient denies COPD (chronic obstructive pulmonary disease) (HCC) Depression Diarrhea Fibromyalgia, primary GERD (gastroesophageal reflux disease) patient denies History of cardiac cath 2005 normal reported by patient History of echocardiogram History of stress test 09/08/2015 Hypertension controlled Migraines Obesity Pneumonia x2 , had 2 pneumonia shots Restless legs syndrome Shoulder joint pain rt plan Arthroscopy rotator cuff repair Sleep apnea, obstructive unable to use cpap; recently received mouthpiece but not using Varicose veins of both lower extremities Past Surgical History: Procedure Laterality Date AR'SCOPY SHOULD SAD, SLAP, RCR, RESECT DISTAL CLAVICLE, BICEPS TENODESIS Right 11/04/2015 Procedure: AR'SCOPY RT SHOULD GREGORY, RCR, & BICEPS POSS OPEN; Surgeon: Jack Dave MD; Location: [facility] Main OR; Service: ARTHROPLASTY HIP TOTAL Right 02/27/2018 Procedure: RIGHT TOTAL HIP ARTHROPLASTY; Surgeon: Gabo Sears MD; Location: [facility] Main OR; Service: Orthopedic BACK SURGERY 2008,2002 x 2 Low back, BLADDER SUSPENSION bladder tie-up BRONCHOSCOPY CARDIAC CATHETERIZATION 08/2006 [facility] COLONOSCOPY FOOT SURGERY Right foot hammer, toes; 3 surg FOOT SURGERY Right hammer toes, fractuered foot;3 surg HYSTERECTOMY CARLOS MANUEL BSO Bladder suspension JOINT REPLACEMENT Right TKR KNEE SURGERY Left 2013 arthroscopic LAMINECTOMY DECOMP LUMBAR W/FUSION 4 OR MORE LVL N/A 11/08/2017 Procedure: HARDWARE REMOVAL L4-S1, DECOMPRESSION/FUSION L2-L4, PLIF, REINSTRUMENT L2-S1; Surgeon: Alejo Hummel MD; Location: [facility] Main OR; Service: Orthopedic LUNG SURGERY Right lower lobe; biopsy taken and nodule was benign NECK SURGERY 2008,2013 x 2 C5-6-7 anterior, 2nd included T1- C5-6-7 ROTATOR CUFF REPAIR Left TONSILLECTOMY VEIN SURGERY 2014 vein taken out in lower Left leg in [place] Dr. Jesica SANCHES TOOTH EXTRACTION Social History Socioeconomic History Marital status: Spouse name: Derrek Number of children: Not on file Years of education: Not on file Highest education level: Not on file Occupational History Not on file Social Needs Financial resource strain: Not on file Food insecurity Worry: Not on file Inability: Not on file Transportation needs Medical: Not on file Non-medical: Not on file Tobacco Use Smoking status: Never Smoker Smokeless tobacco: Never Used Substance and Sexual Activity Alcohol use: Yes Alcohol/week: 0.0 standard drinks Comment: sometimes 10 a year; rare Drug use: No Sexual activity: Yes Partners: Male control/protection: None Lifestyle Physical activity Days per week: Not on file Minutes per session: Not on file Stress: Not on file Relationships Social connections Talks on phone: Not on file Gets together: Not on file Attends sabianist service: Not on file Active member of club or organization: Not on file Attends meetings of clubs or organizations: Not on file Relationship status: Not on file Other Topics Concern Not on file Social History Narrative Merged History Encounter Family History Problem Relation Age of Onset Hypertension Father Heart disease Father Diabetes Father Breast cancer Mother ; cancer went to brain, liver and lungs Brain cancer Mother Liver cancer Mother Lung cancer Mother Hypertension Sister Diabetes Sister Hypertension Other siblings Diabetes Other siblings No Known Problems Brother Surgical complications Neg Hx Anesthesia problems Neg Hx Clotting disorder Neg Hx Deep vein thrombosis Neg Hx Pulmonary embolism Neg Hx Social History Substance and Sexual Activity Alcohol Use Yes Alcohol/week: 0.0 standard drinks Comment: sometimes 10 a year; rare Social History Substance and Sexual Activity Drug Use No Social History Tobacco Use Smoking Status Never Smoker Smokeless Tobacco Never Used Review of Systems Constitutional: Negative for activity change and appetite change. HENT: Negative for dental problem, hearing loss, sinus pressure and trouble swallowing. Eyes: Positive for visual disturbance. Respiratory: Negative for cough. Cardiovascular: Negative for chest pain and leg swelling. Gastrointestinal: Negative for constipation. Musculoskeletal: Positive for arthralgias, back pain and gait problem. Psychiatric/Behavioral: The patient is nervous/anxious. B/B control:0 - Normal Antalgic Physical Exam Constitutional: She is oriented to person, place, and time. She appears well- developed and well-nourished. Neck: Spinous process tenderness and muscular tenderness present. Neck rigidity present. Decreased range of motion present. Cardiovascular: Normal rate and regular rhythm. Musculoskeletal: General: Tenderness present. Neurological: She is alert and oriented to person, place, and time. Skin: Skin is warm and dry. Psychiatric: Her behavior is normal. Judgment and thought content normal. Ortho Exam 65 y.o. BP 110/73 (BP Location: Left arm, Patient Position: Sitting, BP Cuff Size: Adult) Pulse 96 Ht 5' 6 Wt 86.6 kg (191 lb) SpO2 93% BMI 30.83 kg/m 1. Postlaminectomy syndrome of lumbar region oxyCODONE-acetaminophen (PERCOCET) 10-325 mg per tablet DISCONTINUED: oxyCODONE-acetaminophen (PERCOCET) 10-325 mg per tablet 2. Encounter for long-term use of opiate analgesic ASSESSMENT/PLAN: meds refill, f/u 2 month Consistent OARRS/NARxCHECK Report Received and Assessed: 05/20/2020 Date controlled substance agreement signed: 01/22/2019 Date of last drug screen: 06/01/2019 Functional Assessment: No data found I will continue to monitor for addiction and aberrant behavior, will use opiates with goal of weaning to lowest effective dose, will maximize doses of neuropathic agents and adjuvant therapies. For any new medications prescribed today, patient was educated about indications for the medication, how to take the medication and potential side effects of the medications. We have discussed the findings of this office visit. The discussion included a complete verbal explanation of the examination results, diagnosis and current treatment plan. The treatment plan is discussed, covering the risk and benefits as well as possible side effects. The patient's questions were addressed. The patient verbalizes understanding and agreement with planned treatment. The patient is reminded that there is a risk of addiction. Patient has been counseled about the risk and benefit of opioid medications. The patient has been encourged to explore non-medication alternatives to manage pain. The patient is subject to being randomly assessed by oral/urine drug screening and/or pill count as needed to monitor patient compliance and adherance to the plan of care. documented in this encounter* Eyal Duron MD - 07/22/2020 2:24 PM EDT Nam: Matthew Perez Age: 65 y.o. : 1955 Date: 07/22/2020 Provider: Eyal Duron MD Chief Complaint Patient presents with Back Pain HISTORY OF PRESENT ILLNESS: Matthew Perez is a 65 y.o. female who presents complaining of pain in the low back, hips Bilateraland feet Right. Current symptoms include: aching, burning and sharp in character; 4/10 in severity.Symptoms have worsened from the previous visit. Exacerbating factors identified by the patient are standing, walking and activity. Feels worse in the morning Analgesia: Patient has adequate analgesia with the use of current opioid pain medication. Activities of Daily Living: Patient's activities of daily living and psychological functioning haveimproved sufficiently with use of the current opioid medication. Adverse Effects: Patient reports no adverse effects with use of the opioid pain medication. Aberrant Drug-Taking Behavior: Patient has demonstrated no aberrant drug taking behaviors with no deviation from prescription. Allergies Allergen Reactions Ibuprofen GI Intolerance Lyrica [Pregabalin] Other (See Comments) nightmares Duloxetine GI Intolerance Nausea Metformin GI Intolerance Current Outpatient Medications Medication Sig Dispense Refill albuterol (PROVENTIL) 2.5 mg /3 mL (0.083 %) nebulizer solution Take 2.5 mg by nebulization daily as needed . Anoro Ellipta 62.5-25 mcg/actuation DsDv budesonide-formoterol (SYMBICORT) 160-4.5 mcg/actuation inhaler Inhale 2 puffs 2 (two) times a day. clonazePAM (KLONOPIN) 1 MG tablet Take 1 mg by mouth 2 (two) times a day as needed . hydroCHLOROthiazide (HYDRODIURIL) 25 MG tablet Take 25 mg by mouth daily . ibuprofen (ADVIL,MOTRIN) 200 MG tablet Take 200 mg by mouth every 6 (six) hours as needed for pain . lisinopril (PRINIVIL,ZESTRIL) 20 MG tablet Take 20 mg by mouth every evening . montelukast (SINGULAIR) 10 mg tablet Take 10 mg by mouth daily . NARCAN 4 mg/actuation [address] Administer 1 spray into one nostril for known or suspected opioid overdose. If patient worsens or does not respond, may repeat in 2-3 minutes. . 1 Package 0 [START ON 08/07/2020] oxyCODONE-acetaminophen (PERCOCET) 10-325 mg per tablet Take 2 (two) tablets by mouth 3 (three) times a day (Days supply per fill: 30) M51.36 Start: 08/07/20. 180 tablet 0 predniSONE (DELTASONE) 10 MG tablet 60 mg daily on days 1 through 5, 40 mg on day 6, 20 mg on day 7, 20 mg on day 8, 10 mg on day 9, and 5 mg on day 10 . 40 tablet 0 promethazine (PHENERGAN) 25 MG tablet Take 25 mg by mouth every 6 (six) hours as needed for nausea. rOPINIRole (REQUIP) 2 MG tablet Take 2 mg by mouth 3 (three) times a day Reasons: Extreme Discomfort in Calves when Sitting or Lying Down. sertraline (ZOLOFT) 100 MG tablet Take 100 mg by mouth daily . tiotropium (SPIRIVA) [address] 18 mcg into inhaler and inhale daily . traZODone (DESYREL) 50 MG tablet Take 50 mg by mouth daily . furosemide (LASIX) 20 MG tablet Take 20 mg by mouth daily . ibuprofen (ADVIL,MOTRIN) 800 MG tablet Take 1 (one) tablet (800 mg total) by mouth 2 (two) times a day. 60 tablet 1 meclizine (ANTIVERT) 25 mg tablet Take 1 (one) tablet (25 mg total) by mouth every 6 (six) hours for 5 days . 20 tablet 0 mirtazapine (REMERON RODRIGO-TAB) 15 MG disintegrating tablet Dissolve 1 (one) tablet (15 mg total) on top of tongue nightly . 30 tablet 0 omeprazole (PRILOSEC) 40 MG capsule Take 1 (one) capsule (40 mg total) by mouth daily. 30 capsule 5 ranitidine (ZANTAC) 300 MG tablet Take 1 (one) tablet (300 mg total) by mouth nightly. 30 tablet 5 SUMAtriptan (IMITREX) 100 MG tablet Take 1 (one) tablet (100 mg total) by mouth as needed for migraine. 6 tablet 0 No current facility-administered medications for this visit. Past Medical History: Diagnosis Date Arthritis osteo Asthma 08/23/2014 Benign hypertension 04/01/2015 Cataract 08/23/2014 immature Chronic pain disorder rt foot, hx 4 foot fractures; calves of legs cause pain,muscle spasms Congestive heart failure (HCC) 10/13/2015 patient denies COPD (chronic obstructive pulmonary disease) (HCC) Depression Diarrhea Fibromyalgia, primary GERD (gastroesophageal reflux disease) patient denies History of cardiac cath 2005 normal reported by patient History of echocardiogram History of stress test 09/08/2015 Hypertension controlled Migraines Obesity Pneumonia x2 , had 2 pneumonia shots Restless legs syndrome Shoulder joint pain rt plan Arthroscopy rotator cuff repair Sleep apnea, obstructive unable to use cpap; recently received mouthpiece but not using Varicose veins of both lower extremities Past Surgical History: Procedure Laterality Date AR'SCOPY SHOULD SAD, SLAP, RCR, RESECT DISTAL CLAVICLE, BICEPS TENODESIS Right 11/04/2015 Procedure: AR'SCOPY RT SHOULD GREGORY, RCR, & BICEPS POSS OPEN; Surgeon: Jack Dave MD; Location: [facility] Main OR; Service: ARTHROPLASTY HIP TOTAL Right 02/27/2018 Procedure: RIGHT TOTAL HIP ARTHROPLASTY; Surgeon: Gabo Sears MD; Location: [facility] Main OR; Service: Orthopedic BACK SURGERY 2008,2002 x 2 Low back, BLADDER SUSPENSION bladder tie-up BRONCHOSCOPY CARDIAC CATHETERIZATION 08/2006 [facility] COLONOSCOPY FOOT SURGERY Right foot hammer, toes; 3 surg FOOT SURGERY Right hammer toes, fractuered foot;3 surg HYSTERECTOMY [facility] BSO Bladder suspension JOINT REPLACEMENT Right TKR KNEE SURGERY Left 2013 arthroscopic LAMINECTOMY DECOMP LUMBAR W/FUSION 4 OR MORE LVL N/A 11/08/2017 Procedure: HARDWARE REMOVAL L4-S1, DECOMPRESSION/FUSION L2-L4, PLIF, REINSTRUMENT L2-S1; Surgeon: Alejo Hummel MD; Location: [facility] Main OR; Service: Orthopedic LUNG SURGERY Right lower lobe; biopsy taken and nodule was benign NECK SURGERY 2009,2014 x 2 C5-6-7 anterior, 2nd included T1- C5-6-7 ROTATOR CUFF REPAIR Left TONSILLECTOMY VEIN SURGERY 2014 vein taken out in lower Left leg in [place] Dr. Jesica SANCHES TOOTH EXTRACTION Social History Socioeconomic History Marital status: Spouse name: Derrek Number of children: Not on file Years of education: Not on file Highest education level: Not on file Occupational History Not on file Social Needs Financial resource strain: Not on file Food insecurity Worry: Not on file Inability: Not on file Transportation needs Medical: Not on file Non-medical: Not on file Tobacco Use Smoking status: Never Smoker Smokeless tobacco: Never Used Substance and Sexual Activity Alcohol use: Yes Alcohol/week: 0.0 standard drinks Comment: sometimes 10 a year; rare Drug use: No Sexual activity: Yes Partners: Male control/protection: None Lifestyle Physical activity Days per week: Not on file Minutes per session: Not on file Stress: Not on file Relationships Social connections Talks on phone: Not on file Gets together: Not on file Attends sabianist service: Not on file Active member of club or organization: Not on file Attends meetings of clubs or organizations: Not on file Relationship status: Not on file Other Topics Concern Not on file Social History Narrative Merged History Encounter Family History Problem Relation Age of Onset Hypertension Father Heart disease Father Diabetes Father Breast cancer Mother ; cancer went to brain, liver and lungs Brain cancer Mother Liver cancer Mother Lung cancer Mother Hypertension Sister Diabetes Sister Hypertension Other siblings Diabetes Other siblings No Known Problems Brother Surgical complications Neg Hx Anesthesia problems Neg Hx Clotting disorder Neg Hx Deep vein thrombosis Neg Hx Pulmonary embolism Neg Hx Social History Substance and Sexual Activity Alcohol Use Yes Alcohol/week: 0.0 standard drinks Comment: sometimes 10 a year; rare Social History Substance and Sexual Activity Drug Use No Social History Tobacco Use Smoking Status Never Smoker Smokeless Tobacco Never Used Review of Systems Constitutional: Negative for activity change and appetite change. HENT: Negative for dental problem, hearing loss, sinus pressure and trouble swallowing. Eyes: Positive for visual disturbance. Respiratory: Negative for cough. Cardiovascular: Positive for leg swelling. Negative for chest pain. Musculoskeletal: Positive for arthralgias, back pain and gait problem. Psychiatric/Behavioral: The patient is nervous/anxious. B/B control:3 - Frequent urinary incontinence Uses cane Physical Exam Constitutional: She is oriented to person, place, and time. She appears well- developed and well-nourished. Neck: Normal range of motion. Neck supple. Cardiovascular: Normal rate and regular rhythm. Musculoskeletal: General: Tenderness present. Neurological: She is alert and oriented to person, place, and time. Skin: Skin is warm and dry. Psychiatric: Her behavior is normal. Judgment and thought content normal. Back Exam Tenderness The patient is experiencing tenderness in the lumbar. Range of Motion Extension: abnormal Flexion: abnormal Muscle Strength Right Quadriceps: 4/5 Left Quadriceps: 4/5 Tests Straight leg raise right: negative Straight leg raise left: negative Other Toe walk: abnormal Heel walk: abnormal Sensation: normal Gait: antalgic 65 y.o. BP (!) 144/93 (BP Location: Left arm, Patient Position: Sitting) Pulse (!) 125 Ht 5' 6 Wt 90.7 kg (200 lb) Comment: Patient wearing orthotic boot BMI 32.28 kg/m 1. Encounter for long-term use of opiate analgesic 2. Postlaminectomy syndrome of lumbar region oxyCODONE-acetaminophen (PERCOCET) 10-325 mg per tablet ASSESSMENT/PLAN: meds refill, f/u 2 month , we discussed SCS trial Consistent OARRS/NARxCHECK Report Received and Assessed: 07/22/2020 Date controlled substance agreement signed: 05/20/2020 Date of last drug screen: 05/20/2020 Functional Assessment: No data found I will continue to monitor for addiction and aberrant behavior, will use opiates with goal of weaning to lowest effective dose, will maximize doses of neuropathic agents and adjuvant therapies. For any new medications prescribed today, patient was educated about indications for the medication, how to take the medication and potential side effects of the medications. We have discussed the findings of this office visit. The discussion included a complete verbal explanation of the examination results, diagnosis and current treatment plan. The treatment plan is discussed, covering the risk and benefits as well as possible side effects. The patient's questions were addressed. The patient verbalizes understanding and agreement with planned treatment. The patient is reminded that there is a risk of addiction. Patient has been counseled about the risk and benefit of opioid medications. The patient has been encourged to explore non-medication alternatives to manage pain. The patient is subject to being randomly assessed by oral/urine drug screening and/or pill count as needed to monitor patient compliance and adherance to the plan of care. documented in this encounter* Allie Ray MD - 08/28/2020 2:10 PM EDT Urogynecology and Reconstructive Pelvic Surgery New Patient Visit - Consultation Patient name: Matthew Perez : 1955 Date: 08/28/2020 Referring Physician: Ray Oliva MD Primary Care Provider: Harmony Gee MD Assessment/Plan: Problem List Items Addressed This Visit Rectocele - Primary With a large enterocele, perinea seal. Following examination the patient and her sister and were counseled regarding these physical exam findings. It appears as though her previous bladder tie up is intact today. We discussed observation, pessary management, physical therapy, posterior repair with perineoplasty. She would like to proceed with a posterior repair and will contact the office for sc heduling. Other Visit Diagnoses 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 HISTORY OF PRESENTING ILLNESS: Patient ID: Matthew Perez is a 65 y.o. female referred by Ray Oliva MD for rectocele. Due to a need for physical examination to correctly assess her condition, a telehealth appointment is not feasible. While we take appropriate precautions consistent with prevailing medical standards, any contact with any person in any setting at this time presents a risk of transmission and contracti on of COVID-19, she understands and agrees to in person evaluation. She reports a concern for a palpable vaginal bulge. She reports having a hysterectomy and a bladder tie up over 10 years ago for benign indications. She reports pressure and discomfort and concernsfor blockage that is precluding intercourse. She denies urinary incontinence but does sometimes need to repeat void and sometimes has difficulty emptying her bladder. She has had urge incontinence and insensible leakage in the past following back surgeries, she has had 3 of them and has been recommended to have a fourth, she is declining that therapy at this time. She is here with her sister, and, today. Review of bladder diary: Not completed Past Medical History: Past Medical History: Diagnosis Date Arthritis osteo Asthma 08/23/2014 Benign hypertension 04/01/2015 Cataract 08/23/2014 immature Chronic pain disorder rt foot, hx 4 foot fractures; calves of legs cause pain,muscle spasms Congestive heart failure (HCC) 10/13/2015 patient denies COPD (chronic obstructive pulmonary disease) (HCC) Depression Diarrhea Fibromyalgia, primary GERD (gastroesophageal reflux disease) patient denies History of cardiac cath 2005 normal reported by patient History of echocardiogram History of stress test 09/08/2015 Hypertension controlled Migraines Obesity Pneumonia x2 , had 2 pneumonia shots Restless legs syndrome Shoulder joint pain rt plan Arthroscopy rotator cuff repair Sleep apnea, obstructive unable to use cpap; recently received mouthpiece but not using Varicose veins of both lower extremities Past Surgical History: Past Surgical History: Procedure Laterality Date AR'SCOPY SHOULD SAD, SLAP, RCR, RESECT DISTAL CLAVICLE, BICEPS TENODESIS Right 11/04/2015 Procedure: AR'SCOPY RT SHOULD GREGORY, RCR, & BICEPS POSS OPEN; Surgeon: Jack Dave MD; Location: [facility] Main OR; Service: ARTHROPLASTY HIP TOTAL Right 02/27/2018 Procedure: RIGHT TOTAL HIP ARTHROPLASTY; Surgeon: Gabo Sears MD; Location: [facility] Main OR; Service: Orthopedic BACK SURGERY 2008,2002 x 2 Low back, BLADDER SUSPENSION bladder tie-up BRONCHOSCOPY CARDIAC CATHETERIZATION 08/2006 [facility] COLONOSCOPY FOOT SURGERY Right foot hammer, toes; 3 surg FOOT SURGERY Right hammer toes, fractuered foot;3 surg HYSTERECTOMY [facility] BSO Bladder suspension JOINT REPLACEMENT Right TKR KNEE SURGERY Left 2013 arthroscopic LAMINECTOMY DECOMP LUMBAR W/FUSION 4 OR MORE LVL N/A 11/08/2017 Procedure: HARDWARE REMOVAL L4-S1, DECOMPRESSION/FUSION L2-L4, PLIF, REINSTRUMENT L2-S1; Surgeon: Alejo Hummel MD; Location: [facility] Main OR; Service: Orthopedic LUNG SURGERY Right lower lobe; biopsy taken and nodule was benign NECK SURGERY 2008,2013 x 2 C5-6-7 anterior, 2nd included T1- C5-6-7 ROTATOR CUFF REPAIR Left TONSILLECTOMY VEIN SURGERY 2014 vein taken out in lower Left leg in [place] SANCHES TOOTH EXTRACTION [employer] Hx: OB History 0 Para 0 Term 0 0 AB 0 Living SAB 0 TAB 0 Ectopic 0 Multiple Live Births Current Medications: Outpatient Medications Marked as Taking for the 08/28/20 encounter (Office Visit) with Allie Romano MD Medication Sig Dispense Refill albuterol (PROVENTIL) 2.5 mg /3 mL (0.083 %) nebulizer solution Take 2.5 mg by nebulization daily as needed . Anoro Ellipta 62.5-25 mcg/actuation DsDv budesonide-formoterol (SYMBICORT) 160-4.5 mcg/actuation inhaler Inhale 2 puffs 2 (two) times a day. clonazePAM (KLONOPIN) 1 MG tablet Take 1 mg by mouth 2 (two) times a day as needed . furosemide (LASIX) 20 MG tablet Take 20 mg by mouth daily . hydroCHLOROthiazide (HYDRODIURIL) 25 MG tablet Take 25 mg by mouth daily . ibuprofen (ADVIL,MOTRIN) 200 MG tablet Take 200 mg by mouth every 6 (six) hours as needed for pain . lisinopril (PRINIVIL,ZESTRIL) 20 MG tablet Take 20 mg by mouth every evening . montelukast (SINGULAIR) 10 mg tablet Take 10 mg by mouth daily . oxyCODONE-acetaminophen (PERCOCET) 10-325 mg per tablet Take 2 (two) tablets by mouth 3 (three) times a day (Days supply per fill: 30) M51.36 Start: 08/07/20. 180 tablet 0 rOPINIRole (REQUIP) 2 MG tablet Take 2 mg by mouth 3 (three) times a day Reasons: Extreme Discomfort in Calves when Sitting or Lying Down. sertraline (ZOLOFT) 100 MG tablet Take 100 mg by mouth daily . Allergies: Ibuprofen, Lyrica [pregabalin], Duloxetine, and Metformin Social History: Social History Tobacco Use Smoking status: Never Smoker Smokeless tobacco: Never Used Substance Use Topics Alcohol use: Yes Alcohol/week: 0.0 standard drinks Comment: sometimes 10 a year; rare Drug use: No Family History: Family History Problem Relation Age of Onset Hypertension Father Heart disease Father Diabetes Father Breast cancer Mother ; cancer went to brain, liver and lungs Brain cancer Mother Liver cancer Mother Lung cancer Mother Hypertension Sister Diabetes Sister Hypertension Other siblings Diabetes Other siblings No Known Problems Brother Surgical complications Neg Hx Anesthesia problems Neg Hx Clotting disorder Neg Hx Deep vein thrombosis Neg Hx Pulmonary embolism Neg Hx Review of Systems: General: no complaints HEENT: no complaints Neurologic: no complaints Musculoskeletal: back pain and joint pain Cardiovascular: no complaints Pulmonary: no complaints GI: no complaints : pelvic organ prolapse Endocrine: no complaints Psych: no complaints PHYSICAL EXAM: Constitutional: Alert, well-appearing, not in distress Blood pressure 131/82, pulse 91, temperature 97.8 F (36.6 C), temperature source Temporal, height 5' 5, weight 88.7 kg (195 lb 8 oz). General: AAO x3, WDWN, NAD Skin: normal turgor, normal color, normal texture, no rashes seen, no lesions seen Lymph: no lymphadenopathy HEENT: unremarkable, PERRLA Abdomen: + soft, + nontender, - palpable masses, - CVA tenderness, + cicatrix, - organomegaly Extremities: - cyanosis, - clubbing, - edema Genitourinary: See media tab Face to face counseling time 45 minutes, total visit time 60 minutes. THIS NOTE WAS GENERATED WITH VOICE RECOGNITION SOFTWARE AND MAY CONTAIN ERRORS. SIGNED BUT NOT EDITED TO EXPEDITE. documented in this encounter* Elza Bermudez MA - 09/02/2020 3:51 PM EST Pt called in to let office know that she is switching pain management providers. Please advise. I cancelled appt on 09/22 documented in this encounter* Dylan Savage MD - 11/24/2020 4:48 PM EST EMG Consultation DATE OF SERVICE 11/24/2020 REFERRING PHYSICIAN Jose Hardy M.D. HISTORY OF PRESENT ILLNESS Patient is a 65-year-old female, who has been having pain, numbing and tingling sensation bilateralextremities, hand and fingers that have been bothering her for a period of time, have been getting worse lately. Described symptoms as numbing and tingling, sharp and stabbing at times, that is continuously, seems to be progressing. Shaking the hands helps relieve symptoms. Repetitive movement activity make it worse. Pain gets worse overnight. PHYSICAL EXAMINATION General: A 65-year-old female awake, alert, oriented, not in distress. Neurologic: Deep tendon reflexes are 1 to 2/4 bilateral extremities. Sensation is impaired distal to light touch. Muscle power ranging 4/5 for bilateral extremities, with more weakness on bilateral hand boat pilot. Patient has an average range of motion of her cervical vertebrae and a functional range of motion of her peripheral joints. NERVE CONDUCTION STUDY OF THE RIGHT UPPER EXTREMITY The right median antidromic sensory pickup at the 2nd digit has a peak latency 4.0 msec, amplitude of 16 mV, conduction velocity of 35 m/sec. The right ulnar antidromic sensory pickup at the 5th digit has a peak latency, 3.2 msec, amplitude of 11 mV, conduction velocity 44 msec. The right median motor pickup abductor pollicis brevis has an onset latency of 4.5 msec, amplitude of 4 mV, conduction velocity 50 m/sec. The right ulnar motor pickup at the abductor digiti minimi onset has an onset latency 3.2 msec, amplitude of 10 mV, conduction velocity of 53 m/sec below the elbow and 54 msec across the right elbow. NERVE CONDUCTION STUDY OF THE LEFT UPPER EXTREMITY The left median antidromic sensory pickup at the 2nd digit has a peak latency of 4.5 msec, amplitude of 17 mV, conduction velocity 31 m/sec. The left ulnar antidromic sensory pickup at the 5th digit has a peak latency of 3.3 msec, amplitudeof 20 mV, and conduction velocity of 42 m/sec. The left median motor pickup abductor pollicis brevis has an onset latency 5.3 msec, amplitude of 6mV, conduction velocity of 50 m/sec. The left ulnar motor pickup at the abductor digiti minimi has an onset latency 3.6 msec, amplitude of 9 mV, conduction velocity 53 m/sec below the elbow and 52 m/sec across the left elbow. EMG STUDY OF THE RIGHT UPPER EXTREMITY The following muscles were sampled on the right: Deltoid, biceps, triceps, 1st dorsal interosseus, abductor pollicis brevis. All the muscles sampled in the right upper extremity were normal insertional activity. No abnormal spontaneous activity with a motor action potential of normal configuration and amplitude, except on sampling of the right abductor pollicis brevis, where there were motor units slightly larger amplitude and wider duration, with mildly decreased recruitment. EMG STUDY OF THE LEFT UPPER EXTREMITY The following muscles were sampled on the left: Deltoid, biceps, triceps, 1st dorsal interosseous and abductor pollicis brevis. All the muscles sampled in the left upper extremity were normal insertional activity. No abnormal spontaneous activity with a motor unit action potential of slightly normal configuration except on sampling of the left abductor pollicis brevis, where there were motor units slightly larger amplitude and wider duration with mildly decreased recruitment. 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 Dr. Yu, thank you very much for giving me the opportunity to participate in the healthcare of yourpatient. If you have questions, call me at [phone]. Sincerely yours, [facility] [address] [place] [phone] Name: Matthew Perez : 1955 Date: 11/24/20 Provider: Dylan Savage MD Chief Complaint Patient presents with Procedure EMG BUE Dictation of HPI, ROS, PE, and Assessment and Plan: I have reviewed with Matthew Perez all histories, medications, allergies, and relevant problem list diagnosis. 1. Cervical spinal stenosis Ambulatory referral to Physical Medicine Rehab 2. Spinal stenosis, lumbar region, with neurogenic claudication Ambulatory referral to Physical Medicine Rehab No orders of the defined types were placed in this encounter. No follow-ups on file. documented in this encounter* Ruby Boucher CNP - 04/02/2019 2:23 PM EDT Nam: Matthew Perez Age: 64 y.o. : 1955 Date: 04/02/2019 Provider: Ruby Boucher CNP Chief Complaint Patient presents with Back Pain HISTORY OF PRESENT ILLNESS: Matthew Perez is a 64 y.o. female that presents with complaints of pain in the low back, hips, right groin, bilateral legs/feet. Current symptoms include: aching and sharp in character; 10/10 in severity. Pain medication relieves to about 3-4/10. Symptoms have not changed from the previous visit. Exacerbating factors identified by the patient are bending forwards, standing, walking and going up stairs. Analgesia: Patient has adequate analgesia with the use of current opioid pain medication. Activities of Daily Living: Patient's activities of daily living and psychological functioning haveimproved sufficiently with use of the current opioid medication. Adverse Effects: Patient reports no adverse effects with use of the opioid pain medication. Aberrant Drug-Taking Behavior: Patient has demonstrated no aberrant drug taking behaviors with no deviation from prescription. Allergies Allergen Reactions Lyrica [Pregabalin] Other (See Comments) nightmares Duloxetine GI Intolerance Nausea Metformin GI Intolerance Current Outpatient Medications Medication Sig Dispense Refill albuterol (PROVENTIL) 2.5 mg /3 mL (0.083 %) nebulizer solution Take 2.5 mg by nebulization daily as needed . budesonide-formoterol (SYMBICORT) 160-4.5 mcg/actuation inhaler Inhale 2 puffs 2 (two) times a day. cephALEXin (KEFLEX) 500 MG capsule cinnamon bark 500 mg capsule daily . clonazePAM (KLONOPIN) 1 MG tablet diphenoxylate-atropine (LOMOTIL) 2.5-0.025 mg per tablet 2 Unspecified . EASIVENT HOLDING CHAMBER inhaler garlic 1,000 mg cap daily . hydroCHLOROthiazide (HYDRODIURIL) 25 MG tablet Take 25 mg by mouth. HYDROmorphone 16 mg Tb24 Take 1 (one) tablet (16 mg total) by mouth once daily (Days supply per fill: 7) M96.1 . 30 tablet 0 ibuprofen (ADVIL,MOTRIN) 800 MG tablet Take 1 (one) tablet (800 mg total) by mouth 2 (two) times a day. 60 tablet 1 ibuprofen (ADVIL,MOTRIN) 800 MG tablet 1 Unspecified . ketorolac (TORADOL) 30 mg/mL (1 mL) injection 1 mL every 6 (six) hours . levoFLOXacin (LEVAQUIN) 500 MG tablet 1 Unspecified daily . lisinopril (PRINIVIL,ZESTRIL) 20 MG tablet Take 20 mg by mouth every evening . montelukast (SINGULAIR) 10 mg tablet Take 10 mg by mouth. montelukast (SINGULAIR) 10 mg tablet 1 Unspecified daily . morphine (MS CONTIN) 30 MG 12 hr tablet Take 1 (one) tablet (30 mg total) by mouth 2 (two) times a day (Days supply per fill: 30) M15.9 Start: 01/27/19. 60 tablet 0 NARCAN 4 mg/actuation [address] Administer 1 spray into one nostril for known or suspected opioid overdose. If patient worsens or does not respond, may repeat in 2-3 minutes. . 1 Package 0 omeprazole (PRILOSEC) 40 MG capsule Take 1 (one) capsule (40 mg total) by mouth daily. 30 capsule 5 oxyCODONE (ROXICODONE) 5 MG immediate release tablet 1-2 tablets every 4-6 hours as needed for pain. 100 tablet 0 oxyCODONE-acetaminophen (PERCOCET) 10-325 mg per tablet Take 2 (two) tablets by mouth 3 (three) times a day (Days supply per fill: 30) M51.36 . 180 tablet 0 polyethylene glycol (MIRALAX) 17 gram powder potassium 99 mg Tab 1 Unspecified . promethazine (PHENERGAN) 25 MG tablet Take 25 mg by mouth every 6 (six) hours as needed for nausea. ranitidine (ZANTAC) 300 MG tablet Take 1 (one) tablet (300 mg total) by mouth nightly. 30 tablet 5 rOPINIRole (REQUIP) 2 MG tablet Take 4 mg by mouth nightly TAKES 2-3 TABLETS. sertraline (ZOLOFT) 50 MG tablet SUMAtriptan (IMITREX) 100 MG tablet Take 1 (one) tablet (100 mg total) by mouth as needed for migraine. 6 tablet 0 tiotropium (SPIRIVA WITH HANDIHALER) 18 mcg inhalation capsule Spiriva with HandiHaler 18 mcg and inhalation capsules INHALE THE ENTIRE CONTENTS OF 1 CAPSULE ONCE A DAY USING HANDIHALER DEVICE traZODone (DESYREL) 50 MG tablet No current facility-administered medications for this visit. Past Medical History: Diagnosis Date Arthritis osteo Asthma 08/23/2014 Benign hypertension 04/01/2015 Cataract 08/23/2014 immature Chronic pain disorder rt foot, hx 4 foot fractures; calves of legs cause pain,muscle spasms Congestive heart failure (HCC) 10/13/2015 patient denies COPD (chronic obstructive pulmonary disease) ([facility]) Depression Diarrhea Fibromyalgia, primary GERD (gastroesophageal reflux disease) patient denies History of cardiac cath 2005 normal reported by patient History of echocardiogram History of stress test 09/08/2015 Hypertension controlled Migraines Obesity Pneumonia x2 , had 2 pneumonia shots Restless legs syndrome Shoulder joint pain rt plan Arthroscopy rotator cuff repair Sleep apnea, obstructive unable to use cpap; recently received mouthpiece but not using Varicose veins of both lower extremities Past Surgical History: Procedure Laterality Date AR'SCOPY SHOULD SAD, SLAP, RCR, RESECT DISTAL CLAVICLE, BICEPS TENODESIS Right 11/04/2015 Procedure: AR'SCOPY RT SHOULD GREGORY, RCR, & BICEPS POSS OPEN; Surgeon: Jack Dave MD; Location: [facility] Main OR; Service: ARTHROPLASTY HIP TOTAL Right 02/27/2018 Procedure: RIGHT TOTAL HIP ARTHROPLASTY; Surgeon: Gabo Sears MD; Location: [facility] Main OR; Service: Orthopedic BACK SURGERY 2008,2002 x 2 Low back, BLADDER SUSPENSION bladder tie-up BRONCHOSCOPY CARDIAC CATHETERIZATION 08/2006 [facility] COLONOSCOPY FOOT SURGERY Right foot hammer, toes; 3 surg FOOT SURGERY Right hammer toes, fractuered foot;3 surg HYSTERECTOMY CARLOS MANUEL BSO Bladder suspension JOINT REPLACEMENT Right TKR KNEE SURGERY Left 2013 arthroscopic LAMINECTOMY DECOMP LUMBAR W/FUSION 4 OR MORE LVL N/A 11/08/2017 Procedure: HARDWARE REMOVAL L4-S1, DECOMPRESSION/FUSION L2-L4, PLIF, REINSTRUMENT L2-S1; Surgeon: Alejo Hummel MD; Location: [facility] Main OR; Service: Orthopedic LUNG SURGERY Right lower lobe; biopsy taken and nodule was benign NECK SURGERY 2008,2013 x 2 C5-6-7 anterior, 2nd included T1- C5-6-7 ROTATOR CUFF REPAIR Left TONSILLECTOMY VEIN SURGERY 2014 vein taken out in lower Left leg in [place] Dr. Jesica SANCHES TOOTH EXTRACTION Social History Socioeconomic History Marital status: Spouse name: Derrek Number of children: Not on file Years of education: Not on file Highest education level: Not on file Occupational History Not on file Social Needs Financial resource strain: Not on file Food insecurity: Worry: Not on file Inability: Not on file Transportation needs: Medical: Not on file Non-medical: Not on file Tobacco Use Smoking status: Never Smoker Smokeless tobacco: Never Used Substance and Sexual Activity Alcohol use: Yes Alcohol/week: 0.0 standard drinks Comment: sometimes 10 a year; rare Drug use: No Sexual activity: Yes Partners: Male control/protection: None Lifestyle Physical activity: Days per week: Not on file Minutes per session: Not on file Stress: Not on file Relationships Social connections: Talks on phone: Not on file Gets together: Not on file Attends sabianist service: Not on file Active member of club or organization: Not on file Attends meetings of clubs or organizations: Not on file Relationship status: Not on file Other Topics Concern Not on file Social History Narrative Merged History Encounter Family History Problem Relation Age of Onset Hypertension Father Heart disease Father Diabetes Father Breast cancer Mother ; cancer went to brain, liver and lungs Brain cancer Mother Liver cancer Mother Lung cancer Mother Hypertension Sister Diabetes Sister Hypertension Other siblings Diabetes Other siblings No Known Problems Brother Surgical complications Neg Hx Anesthesia problems Neg Hx Clotting disorder Neg Hx Deep vein thrombosis Neg Hx Pulmonary embolism Neg Hx Social History Substance and Sexual Activity Alcohol Use Yes Alcohol/week: 0.0 standard drinks Comment: sometimes 10 a year; rare Social History Substance and Sexual Activity Drug Use No Social History Tobacco Use Smoking Status Never Smoker Smokeless Tobacco Never Used Review of Systems Constitutional: Positive for fatigue. Negative for diaphoresis and fever. HENT: Negative for hearing loss and trouble swallowing. Dry mouth Eyes: Negative for pain, discharge and visual disturbance. Wears glasses Respiratory: Positive for cough and shortness of breath. Negative for wheezing. COPD Cardiovascular: Negative for chest pain and leg swelling. Gastrointestinal: Positive for diarrhea. Negative for constipation, nausea and vomiting. Genitourinary: Negative for difficulty urinating and dysuria. Musculoskeletal: Positive for back pain, myalgias and neck pain. Skin: Negative for pallor and rash. Neurological: Negative for dizziness and light-headedness. Psychiatric/Behavioral: The patient is not nervous/anxious. B/B control:0 - Normal Antalgic uses walker and motorized wheelchair when out for long periods Physical Exam Constitutional: She is oriented to person, place, and time. She appears well- developed and well-nourished. HENT: Head: Normocephalic and atraumatic. Eyes: Pupils are equal, round, and reactive to light. Neck: Normal range of motion. Neck supple. Cardiovascular: Normal rate and regular rhythm. Pulmonary/Chest: Effort normal. No respiratory distress. Musculoskeletal: She exhibits tenderness. Neurological: She is alert and oriented to person, place, and time. Skin: Skin is warm and dry. Psychiatric: Her behavior is normal. Judgment and thought content normal. 64 y.o. BP 106/71 Ht 5' 7 Wt 81.6 kg (180 lb) BMI 28.19 kg/m SNOMED CT(R) 1. Postlaminectomy syndrome of lumbar region LUMBAR POST-LAMINECTOMY SYNDROME oxyCODONE-acetaminophen (PERCOCET) 10-325 mg per tablet DISCONTINUED: oxyCODONE-acetaminophen (PERCOCET) 10-325 mg per tablet TREATMENT GOAL: To remain active, enjoys gardening ASSESSMENT/PLAN: Refill March and April [place] 10-325 mg, f/u 2 months. Due to her MME dose we discussed Narcan. She respectfully declines at this time, but states that she has a script in the pharmacy if she changes her mind. Pattern of pain is reported asConsistent I will continue to monitor for addiction and aberrant behavior, will use opiates with goal of weaning to lowest effective dose, will maximize doses of neuropathic agents and adjuvant therapies. For any new medications prescribed today, patient was educated about indications for the medication, how to take the medication and potential side effects of the medications. I have discussed the findings of this office visit with him. The discussion included a complete verbal explanation of the examination results, diagnosis and current treatment plan. The treatment plan is discussed, covering the risk and benefits as well as possible side effects. His questions are addressed. He verbalizes understanding and agreement with planned treatment. The patient is reminded that there is a risk of addiction. Patient has been counseled about the risk and benefit of opioid medications. The patient has been encourged to explore non-medication alternatives to manage pain. The patient is subject to being randomly assessed by oral/urine drug screening and/or pill count as needed to monitor patient compliance and adherance to the plan of care. OARRS/NARxCHECK Report Received and Assessed: 04/02/19 Date controlled substance agreement signed: 01/22/19 (AP) Date of last drug screen: 11/21/18 (AP) documented in this encounter* Orin Esposito, PT - 11/25/2020 2:30 PM EST [facility] Evaluation Today's Date 11/25/2020 Patient Name: Matthew Perez Date of : 1955 Case Name: Lumbar - PT Functional Diagnosis: 1. Lumbar pain Clinical Information: Subjective General Initial Evaluation Pateint name: Matthew Perez Date of : 1955 Date: 11/25/2020 Medical Diagnosis: M54.5 Contraindication/Precautions/Activity Restrictions: Asthma, COPD, Depression, DM, GERD, HTN, Migraines, RLS, AYO, Varicose veins, Cervical fusion C5-7, Lumbar fusion L2-S1 Referring Physician: Jose Yu MD Orders: Eval & Rx, Neutral spine/core stability, back education/postural training, lumbar traction Frequency/Duration: 2x/wk x 6 wks Injury/Problems: 2003 pt started to have LBP and she felt that it was just from arthritis. Since this started she has had 3 lumbar fusions and is now from L2- S1. She states that her pain used to justbe in her lumbar spine, but now it has spread into the mid back. She states that she is waiting to have another surgery on the lumbar spine. Previous Relevant Injuries: Pt has also had vestibular problems and has been seen for that. She hascervical problems and she is waiting to have surgery on that as well as the lumbar spine. She is awaiting surgery on the R foot in the toes. She is also waiting to have a R TSA done. Previous Functional Level: Pt is not able to move around like she used to. Home Settin steps to enter her home. 12 steps to the 2nd floor. Bedroom is upstairs and bathroom is downstairs. She states that she falls very easily. Since last summer she has fallen 3x, but sheusually catches herself. Prior PT for same condition: yes Therapy has never been helpful for her in the past. She states that usually after doing it she can hardly. She has done both land and pool therapy. Home Safety Issues/Concerns: When grocery shopping she uses a motorized cart. She feels that she could walk 25-50 yds. She feels like the more that she does the more that she hurts. Pt does the dishes. She mainly is just getting up to switch laundry over or do light household tasks. She tries to cook a meal, but it is difficult because she has problems immediately after stationary standing. DME: Walker is used sometimes. She has a straight cane today, but does not feel that it is helpful. Adventist/Social/Cultural Concerns: None Work: Pt is on disability. Work Activities: Pt has been trying to go through things in her home. She also has been working on putting together a photo album. Pt states that she likes to ride a horse,but she does not do that now. She feels like she could swim and do the breast stroke. She also likes to dance, but does not feel that she can move much. She likes to play [employer], but can't find people to play. She also enjoys gardening, but has difficulty. Mental/Emotional Concerns: A&Ox3/person/place/time Current Symptoms: Constant pain 4/10 pain at best Pain Grade: 4/10 Site: B buttock, B groin, LB, and B knees Symptoms Increased By: Prolonged sitting gets a sharp pain up the thigh after taking a step. Sitting. Lying down. Walking. Stationary standing. Symptoms Decreased By: Percocet. Resting. Ice. Heat. Caffeine pills. Patient/Caregiver Goals: To lower my pain as much as possible. Pt states that she does not think that physical therapy helps, but she has to go through it before she can have surgery. Patient/Caregiver agrees with goals and plan: Yes Objective Evaluation/Findings General Observations: Pleasant female seated in no acute distress. Palpation: NA Sensation: Pt denies numbness and tingling in the back. Posture: Pt sits with fair posture. She tends to have rounded shoulders. Correction of posture helps. ROM: Lumbar: Movement Loss Major Mod Min Nil Pain Flexion x NE Extension x NE Side gliding R x R thigh pain Side gliding L x NE Strength: MMT R _/5 L _/5 Hip extension Hip abduction Hip flexion 4+ 4+ Knee flexion 5 5 Knee extension 4- cramp 4- cramp Ankle dorsiflexion 5 5 Ankle plantarflexion 5 5 Extensor hallucis Pt is able to perform an abdominal brace with fair control. Pt is unable to bridge and has a great deal of difficulty doing supine marching. Functional Mobility/Ability: Pt amb with stiff legs and decreased push off. Pt was able to reciprocally negotiate stairs using B handrail with significant weakness and decreased control. She states that this is a good day for her. Special Tests: Functional Outcome Score: Modified Oswestry 58% Comments: Pt is unable to tolerate very much activity or movement. Evaluation Treatments: Physical Therapy Exercise Log - 11/25/20 5559 OTHER Precautions/Contraindications Asthma, COPD, Depression, DM, GERD, HTN, Migraines, RLS, AYO, Varicose veins, Cervical fusion C5-7, Lumbar fusion L2-S1 Notes 230-316 Vitals Pt goes by Matthew Rose Tracour Exercise ([id number]) Intervention Pt practiced and was given HEP: Abdominal bracing 10 sec hold x10, Bug St I 15x ea, Standing B hip abd, ext, flex 15x ea. Handout provided. Pt participated in the construction of HEP and treatment plan to be provided. Pt demonstrates understanding and all questions answered. PT Treatment Times Therex Total Time 10 Direct Treatment Time 10 Total Treatment Time 46 Treatment Plan: Frequency of Visits: twice per week Duration: 6 weeks Interventions: Therapeutic Exercise, Neuromuscular Re-Education, Manual Therapy and Aquatic Therapy Rehab Potential: poor - Pt states that therapy has never helped and she is just here to get her surgery approved. Goals: Physical Therapy Ortho Goals: [facility] goals to be met 6 weeks from 11/25/2020 1. Independent with home exercise program. 2. Improve trunk strength for pt to be able to tolerate 30 minutes of exercise without increased lumbar pain or excess fatigue to improve mobility tolerance. 3. Pt to demonstrate the ability to amb 500 ft with minimal increased pain to improve ability to amb in the community. 4. Pt to report being able to be on her feet standing stationary > 5 min without increased pain to improve activity tolerance. Modified Oswestry Goal = 40%, IE 58% Pt's Goal: To lower my pain as much as possible. Pt states that she does not think that physical therapy helps, but she has to go through it before she can have surgery. Initial Evaluation 11/25/2020 HEP: 11/25/20 Abdominal bracing 10 sec hold x10, Bug St I 15x ea, Standing B hip abd, ext, flex 15x ea. Patient Education provided: Pt practiced and was given HEP: Abdominal bracing 10 sec hold x10, DeadBug St I 15x ea, Standing B hip abd, ext, flex 15x ea. Handout provided. Pt participated in the construction of HEP and treatment plan to be provided. Pt demonstrates understanding and all questions answered. Clinical Impression: This is a 65 year old female who presents to therapy today with symptoms consistent with chronic pain syndrome with central sensitization with a history of lumbar fusion L2-S1. She is limited in her posture, ROM, and strength. She has difficulty walking any distance, cannot stationary stand, bend, or be on her feet very long for daily activities. We will work on improving heroverall activity tolerance trying to improve her trunk strength, LE strength, and overall endurance. If we need to switch to aquatics we could always consider that in the future. Pt agrees with this plan and questions answered. See goals set. Orin Esposito PT STATE LICENSE, PT.[id number] documented in this encounter* Dylon Abdul, FIRE CAPTAIN MARINE - 11/27/2020 2:00 PM EST [facility] DAILY TREATMENT NOTE Today's Date 11/27/2020 Patient Name: Matthew Perez Date of : 1955 Current Visit #: 12/12 Authorized Visits: 99 Case Name: Lumbar - PT History: Pre-Treatment Pain Scale: 4 Symptoms: gradually improved Functional Diagnosis: 1. Lumbar pain Clinical Information: Subjective: pt not feeling too bad at the start of therapy, but she has not done anything today. Ptstill has increase pain if she sits for long period of time, and then attempts to stand up. Pt still having trouble squatting. ...Today's Physical/Functional Problems being addressed: See above. Risks and benefits of treatment discussed with patient/post acute care nurse: Yes Objective ..Tx Start Time: 158 Tx End Time: 238 Treatments: Physical Therapy Exercise Log - 11/27/20 9829 OTHER Precautions/Contraindications Asthma, COPD, Depression, DM, GERD, HTN, Migraines, RLS, AYO, Varicose veins, Cervical fusion C5-7, Lumbar fusion L2-S1 Vitals Pt goes by Matthew Rose Therapeutic Exercise ([id number]) Intervention Scifit NuStep Seat 18 Arms 6 L1 8 MIn Parameters Seated hip add with ob between her knees 10 x 10 sec hold Intervention Seated hip add with laq 10 x 5 sec hold Parameters Standing heel/toe 15 x ea- Bilateral UE support. Intervention Standing hip abd, ext 15 x ea- Bilateral UE support. Parameters Standing marching 15 x ea LE- Bilateral UE support. 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 Independent with home exercise program. 2. Improve trunk strength for pt to be able to tolerate 30 minutes of exercise without increased lumbar pain or excess fatigue to improve mobility tolerance. 3. Pt to demonstrate the ability to amb 500 ft with minimal increased pain to improve ability to amb in the community. 4. Pt to report being able to be on her feet standing stationary > 5 min without increased pain to improve activity tolerance. Modified Oswestry Goal = 40%, IE 58% Pt's Goal: To lower my pain as much as possible. Pt states that she does not think that physical therapy helps, but she has to go through it before she can have surgery. Initial Evaluation 11/25/2020 HEP: 11/25/20 Abdominal bracing 10 sec hold x10, Bug St I 15x ea, Standing B hip abd, ext, flex 15x ea. Patient Education: Written HEP with patient demonstrated understanding and verbalized understanding. Post-Treatment Pain Scale: 6 Assessment: Patient had an expected response to treatment. pt completed exercise above to work on core/LE strength, and posture. Pt completed exercise with v/c for form, and posture. Skilled Intervention demonstrated by modifications of treatment per exercise log including assessment of patient's response and safety interventions per exercise log. Progress towards goals as expected. Plan for Next Visit: Treatment Visit with focus on Core strength, and posture. Dylon Abdul PTA STATE LICENSE, [employer]INE.[id number] documented in this encounter* Clarissa Luna MD - 12/02/2020 11:02 PM EST Patient Name: Matthew Perez MR #: [id number] : 1955 Date of evaluation: 11/26/2020 Referring Provider: Harmony Gee MD Assessment and Plan: 1. Bilateral upper extremity numbness, tingling - The location is mostly the hands/forearms so is less likely to be related to her severe C4-5 cervical stenosis/myelopathy/myelomalacia Does have prior C7-T1 cervical surgery (anterior approach per patient), though she says these symptoms are newer She describes more 4/5 digit involvement and elbow pain. May be secondary to ulnar neuropathy given description of symptoms with elbow pain. EMG did not peanut picker on ulnar neuropathy, but sometimes can be missed if FDI muscle is not checked, which is more sensitive than ADM. Certainly she can try using an ulnar brace and see if that helps her symptoms. EMG with moderate to severe carpal tunnel as well, with neurogenic chronic changes in APB, so wouldconsider surgery at some point. She is pending spinal surgery and considering holding off on any other surgeries until then. At minimum suggest using braces for wrist and elbows, bilaterally, at least at nighttime, or at least the left side (since Left is symptomatic) 2. Severe cervical stenosis with myelopathy and myelomalacia, C4-5, canal 4mm Seeing spinal surgeon for evaluation. 3. Lower back pain with lumbar stenosis L2/3 on MRI 2017 (prior L4/5 surgery), pending new MRI lumbar spine Pending new MRI lumbar spine Receiving physical therapy Seeing pain management Will follow up results 4. Gait dysfunction - multifactorial with cervical and possibly lumbar issues, as well as Right foot arthritis 5. Vertigo - multifactorial, ?dehiscence of Left superior semicircular canal on MRI IAC 2019 - Already saw ENT surgeon who said no surgery, and vertigo is just intermittent 6. Memory loss Likely also multifactorial, with chronic pain, poor sleep, AYO not using CPAP, effect of narcotic medications taken for pain. I suggest attempting to use CPAP as much as she can, physical therapy to try to help with pain, andpotential of surgeries to improve pain relief and hopefully improve sleep quality and thus indirectly improving memory. MRI brain fairly normal with minimal white matter changes Patient Instructions 1. You could try using left ulnar nerve brace (elbow brace), which is found over the counter at pharmacies, to try to wear atleast at nighttime, and see if that improves some of the hand/arm pain youare having there. The EMG said that nerve was ok, but sometimes if they test a different muscle, that nerve looks abnormal. 2. I suggest using a carpal tunnel wrist splint for at least the left side (since left is symptomatic) and seeing if that helps your symptoms, since EMG showed moderate to severe carpal tunnel on both sides. Wear the wrist splint/brace at least at nighttime, or when having worse symptoms. The longer you can wear it, the better. 3. Give above a trial of at least 1 month. The longer you can wear them (more hours in day and moredays) the more the nerve has a chance to heal. 4. For the left side, you could also consider doing carpal tunnel surgery. If you want to wait, andtry above, that is reasonable too. 5. 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 Condition and plan discussed with patient in detail. For any new medications prescribed today, patient was educated regarding indication, administration, and potential side effects. I spent a total of >70 min in direct patient care, greater than 50% of the time was face to facecounseling, regarding potential diagnosis or etiology of above, risk factors, prognosis, treatment options with risks/benefits, compliance, and relevant prior testing/imaging/work up with patient, rosetta. Return in about 6 weeks (around 01/07/2021). Chief Complaint: Chief Complaint Patient presents with [facility] Neuropathic pain History of Present Illness: Pleasant 65 y.o. female with cervical stenosis s/p cervical fusion C7-T1, lumbar stenosis s/p laminectomy L4-5/L5-S1, but residual stenosis L2/3/4, osteoarthritis of right foot and prior surgery of that foot, migraines with vertigo, AYO with inability to tolerate CPAP, presenting for evaluation of m ultiple issues. She has numbness and tingling of hands/fingers, gradually worsening, as well as memory loss, vertigo, headaches, gait dysfunction, RLS, and chronic pain. She has several symptoms thatmay be related to each other or simply overlap. Primary issue is numbness and tingling of hands/fingers, sharp, gradually worsening, with elbow pain. She thinks the lateral fingers are more affected, and has discomfort at elbow. Weakness of hand front maker lockstitch. 10/2020 - EMG/NCS per Dr Savage suggested moderate to severe bilateral CTS, sensory and motor, demyelinating on both, as well as some axonal involvement on sensories, and bilateral chronic changes in both APB's. EMG did not feel there was ulnar neuropathy, but the FDI was not tested (which can be more sensitive than ADM). She has not tried using wrist splint or braces. She notes she is pending possible cervical surgery and has several things going on, and may not be able to have carpal tunnel surgery if needed, currently. Confounding factor in numbness/tingling is severe cervical stenosis C4-5, just 4mm canal width, andcord edema with possible myelomalacia also. She had prior cervical surgery but that was C7 level. She has seen surgery and they would like to do surgery agaiVer She report chronic weakness in legs, hands, and gait difficulty- but she also has lumbar stenosis, s/p surgery in past for laminectomies, residual stenosis, and foot issues also. She reports some short term memory loss.10/2020 Notably has AYO and cannot tolerate using CPAP RLS diagnosis also, with fair control, on ropinirole 2mg TID She also has bouts of vertigo, initially felt secondary to dehiscence of semicircular canal, found on MRI brain IAC< but she says she saw a surgeon who said surgery is not indicated. Vertigo not as bothersome as other symptoms. She has had previous neurological evaluations for this, felt to be multifactorial. WORK UP I personally reviewed any recent head imaging 10/2020 -- EMG/NCS NERVE CONDUCTION STUDY OF THE RIGHT UPPER EXTREMITY The right median antidromic sensory pickup at the 2nd digit has a peak latency 4.0 msec, amplitude of 16 mV, conduction velocity of 35 m/sec. The right ulnar antidromic sensory pickup at the 5th digit has a peak latency, 3.2 msec, amplitude of 11 mV, conduction velocity 44 msec. The right median motor pickup abductor pollicis brevis has an onset latency of 4.5 msec, amplitude of 4 mV, conduction velocity 50 m/sec. The right ulnar motor pickup at the abductor digiti minimi onset has an onset latency 3.2 msec, amplitude of 10 mV, conduction velocity of 53 m/sec below the elbow and 54 msec across the right elbow. NERVE CONDUCTION STUDY OF THE LEFT UPPER EXTREMITY The left median antidromic sensory pickup at the 2nd digit has a peak latency of 4.5 msec, amplitude of 17 mV, conduction velocity 31 m/sec. The left ulnar antidromic sensory pickup at the 5th digit has a peak latency of 3.3 msec, amplitudeof 20 mV, and conduction velocity of 42 m/sec. The left median motor pickup abductor pollicis brevis has an onset latency 5.3 msec, amplitude of 6mV, conduction velocity of 50 m/sec. The left ulnar motor pickup at the abductor digiti minimi has an onset latency 3.6 msec, amplitude of 9 mV, conduction velocity 53 m/sec below the elbow and 52 m/sec across the left elbow. EMG STUDY OF THE RIGHT UPPER EXTREMITY Right abductor pollicis brevis, where there were motor units slightly larger amplitude and wider duration, with mildly decreased recruitment. EMG STUDY OF THE LEFT UPPER EXTREMITY Left abductor pollicis brevis, where there were motor units slightly larger amplitude and wider duration with mildly decreased recruitment. 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 07/2020 -- MRI c-spine - personally reviewed Discogenic disease, ligamentum flavum hypertrophy at C4-5 resulting in severe central spinal canal stenosis with an AP diameter of the canal of 4 mm. There is associated cord compression and probablemyelomalacia. 2019 -- MRI IAC and brain - personally reviewed 1. 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 This could be further evaluated with noncontrast CT temporal bone if clinically indicated. 2. No evidence of vestibular schwannoma. 3. No acute intracranial process. No acute intracranial hemorrhage, mass, extraaxial fluid collection, acute infarction, or abnormal intracranial enhancement. 4. Very mild periventricular and minimal subcortical white matter as well as mild pontine T2 hyperintensity that is nonspecific and likely due to chronic microangiopathic change. 2019 -- MRI brain - normal - personally reviewed - normal 2017 -- MRI lumbar 1. Severe discogenic disease with facet arthropathy and 6 mm retrolisthesis of L2 resulting in moderate effacement thecal sac. 2. Disc bulge and facet arthropathy with vvov-sj-tnngpdor effacement thecal sac L3-4. 3. Bilateral foraminal stenosis L3-4. 4. Postsurgical changes L4-5 and L5-S1 as described above. Review of Systems: Please see HPI as well Unless as described in HPI, Gen: No fevers, chills, significant appetite or weight changes ENT: No dry mouth, ringing in the ears CV: No chest pain, palpitations Resp: No cough, shortness of breath GI: No abdominal pain, nausea : No urinary incontinence, bowel incontinence, dysuria MSK: No joint pain, joint stiffness, joint swelling Skin: No Rashes, new lesions Heme: No bruises Psych: No homicidal/ suicidal ideation Past Medical History: She has a past medical history of Arthritis, Asthma (08/23/2014), Benign hypertension (04/01/2015), Cataract (08/23/2014), Chronic pain disorder, Congestive heart failure (HCC) (10/13/2015), COPD (chronic obstructive pulmonary disease) ([facility]), Depression, Diarrhea, Fibromyalgia, primary, GERD (gastroes ophageal reflux disease), History of cardiac cath (2005), History of echocardiogram, History of stress test (09/08/2015), Hypertension, Migraines, Obesity, Pneumonia, Restless legs syndrome, Shoulderjoint pain, Sleep apnea, obstructive, and Varicose veins of both lower extremities. Social History She reports that she has never smoked. She has never used smokeless tobacco. She reports current alcohol use. She reports that she does not use drugs. Family History Her family history includes Brain cancer in her mother; Breast cancer in her mother; Diabetes in her father, sister, and another family member; Heart disease in her father; Hypertension in her father, sister, and another family member; Liver cancer in her mother; Lung cancer in her mother; No KnownProblems in her brother. Current Medications Outpatient Medications Prior to Visit Medication Sig Dispense Refill albuterol (PROVENTIL) 2.5 mg /3 mL (0.083 %) nebulizer solution Take 2.5 mg by nebulization daily as needed . Anoro Ellipta 62.5-25 mcg/actuation DsDv budesonide-formoterol (SYMBICORT) 160-4.5 mcg/actuation inhaler Inhale 2 puffs 2 (two) times a day. clonazePAM (KLONOPIN) 1 MG tablet Take 1 mg by mouth 2 (two) times a day as needed . furosemide (LASIX) 20 MG tablet Take 20 mg by mouth daily . hydroCHLOROthiazide (HYDRODIURIL) 25 MG tablet Take 25 mg by mouth daily . ibuprofen (ADVIL,MOTRIN) 200 MG tablet Take 200 mg by mouth every 6 (six) hours as needed for pain . lisinopril (PRINIVIL,ZESTRIL) 20 MG tablet Take 20 mg by mouth every evening . montelukast (SINGULAIR) 10 mg tablet Take 10 mg by mouth daily . NARCAN 4 mg/actuation [address] Administer 1 spray into one nostril for known or suspected opioid overdose. If patient worsens or does not respond, may repeat in 2-3 minutes. . 1 Package 0 predniSONE (DELTASONE) 10 MG tablet 60 mg daily on days 1 through 5, 40 mg on day 6, 20 mg on day 7, 20 mg on day 8, 10 mg on day 9, and 5 mg on day 10 . 40 tablet 0 promethazine (PHENERGAN) 25 MG tablet Take 25 mg by mouth every 6 (six) hours as needed for nausea. rOPINIRole (REQUIP) 2 MG tablet Take 2 mg by mouth 3 (three) times a day Reasons: Extreme Discomfort in Calves when Sitting or Lying Down. sertraline (ZOLOFT) 100 MG tablet Take 100 mg by mouth daily . tiotropium (SPIRIVA) [address] 18 mcg into inhaler and inhale daily . traZODone (DESYREL) 50 MG tablet Take 50 mg by mouth daily . ibuprofen (ADVIL,MOTRIN) 800 MG tablet Take 1 (one) tablet (800 mg total) by mouth 2 (two) times a day. 60 tablet 1 meclizine (ANTIVERT) 25 mg tablet Take 1 (one) tablet (25 mg total) by mouth every 6 (six) hours for 5 days . 20 tablet 0 mirtazapine (REMERON RODRIGO-TAB) 15 MG disintegrating tablet Dissolve 1 (one) tablet (15 mg total) on top of tongue nightly . 30 tablet 0 omeprazole (PRILOSEC) 40 MG capsule Take 1 (one) capsule (40 mg total) by mouth daily. 30 capsule 5 oxyCODONE-acetaminophen (PERCOCET) 10-325 mg per tablet Take 2 (two) tablets by mouth 3 (three) times a day (Days supply per fill: 30) M51.36 Start: 08/07/20. 180 tablet 0 ranitidine (ZANTAC) 300 MG tablet Take 1 (one) tablet (300 mg total) by mouth nightly. 30 tablet 5 SUMAtriptan (IMITREX) 100 MG tablet Take 1 (one) tablet (100 mg total) by mouth as needed for migraine. 6 tablet 0 No facility-administered medications prior to visit. Physical Examination: BP (!) 157/91 (BP Location: Right arm, Patient Position: Sitting, BP Cuff Size: Adult) Pulse (!) 107 Wt 91.4 kg (201 lb 9.6 oz) SpO2 92% BMI 33.55 kg/m General: Well developed, well nourished in no acute distress. HEENT: normocephalic, atraumatic, no oral lesions or tongue lacerations, mucous membranes are moist CV: regular rate Respiratory: nonlabored, no wheezes noted, no usage of accessory muscles noted Ext: No edema, nontender, no ulcers noted on visible skin/joints Skin: No significant rashes on visible skin Neck: Supple, no meningismus Psychiatric: Normal affect, pleasant, cooperative MENTAL STATUS: Alertness, Attention Span & Concentration: Normal Language: normal production, normal comprehension Speech: Normal Orientation: Normal Patient is able to give details of her own history. CRANIAL NERVES II: Pupils are reactive to light III, IV and : Extraocular movements are full, no strabismus noted. No visible nystagmus on current exam. V: Facial sensation is intact and symmetric. VII: No clear facial asymmetry, no facial weakness. VIII: Hearing is grossly intact. IX and X: No dysarthria XI: Shoulder shrug is strong XII: Tongue is midline, normal movement, no obvious atrophy or fasciculations. GAIT: She limps due to right foot surgery and pain Slightly wide based Normal arm swing Is able to keep her balance COORDINATION & GROSS MOTOR: Abnormal Movements: None Coordination Ymiofn-am-Leqn: Normal Rapid Alternating Movements: Normal MOTOR Bulk and tone are normal. There is no pronator drift. MUSCLE STRENGTH: Moving all extremities well and without asymmetry Strength 5/5 except hand front maker lockstitch is about 4/5 bilaterally REFLEXES: No david SENSATION: Fine Touch: No sensory abnormalities grossly IMAGING: I personally reviewed any recent head imaging MR Foot Right Without Contrast Final Result by Mathew Downey MD (08/21/2020 1025) 1. Study degraded by motion. 2. Ldsl-qj-kxukgarb midfoot osteoarthritis, most significant at the naviculocuneiform articulation. 3. No evidence of discrete tendinous or ligamentous injury. 4. Postsurgical changes as described. Workstation ID: [id number] MR Cervical Spine Without Contrast Final Result by Keith Robles MD (07/25/2020 1626) Discogenic disease, ligamentum flavum hypertrophy at C4-5 resulting in severe central spinal canal stenosis with an AP diameter of the canal of 4 mm. There is associated cord compression and probablemyelomalacia. PHILIPP/[place] Workstation ID: [id number] LABS: Reviewed the following Hospital Outpatient Visit on 08/18/2020 Component Date Value Ref Range Status FEV1/FVC Predicted 08/18/2020 76 % Final FEV1/FVC Pre 08/18/2020 71 % Final FEV1/FVC %Pre Predicted 08/18/2020 93 % Final FEV1/FVC Post 08/18/2020 75 % Final FEV1/FVC %Post Predicted 08/18/2020 99 % Final FEV1/FVC %Change 08/18/2020 6 % Final FVC Predicted 08/18/2020 3.20 Liters Final FVC Pre 08/18/2020 2.67 Liters Final FVC %Pre Predicted 08/18/2020 83 % Final FVC Post 08/18/2020 2.91 Liters Final FVC %Post Predicted 08/18/2020 91 % Final FVC %Change 08/18/2020 9 % Final FEV1 Predicted 08/18/2020 2.44 Liters Final FEV1 Pre 08/18/2020 1.90 Liters Final FEV1 %Pre Predicted 08/18/2020 78 % Final FEV1 Post 08/18/2020 2.17 Liters Final FEV1 %Post Predicted 08/18/2020 89 % Final FEV1 %Change 08/18/2020 14 % Final DLCO Predicted 08/18/2020 22.31 mL/mmHg/min Final DLCO Pre 08/18/2020 19.60 mL/mmHg/min Final DLCO %Pre Predicted 08/18/2020 88 % Final DLCO/VA Predicted 08/18/2020 4.28 mL/mmHg/min/L Final DLCO/VA Pre 08/18/2020 3.69 mL/mmHg/min/L Final DLCO/VA %Pre Predicted 08/18/2020 86 % Final VC Predicted 08/18/2020 3.20 Liters Final VC Pre 08/18/2020 2.67 Liters Final VC %Pre Predicted 08/18/2020 83 % Final TLC Predicted 08/18/2020 5.20 Liters Final TLC Pre 08/18/2020 4.95 Liters Final TLC %Pre Predicted 08/18/2020 95 % Final RV Predicted 08/18/2020 2.19 Liters Final RV Pre 08/18/2020 2.28 Liters Final RV %Pre Predicted 08/18/2020 104 % Final ERV Predicted 08/18/2020 0.78 Liters Final ERV Pre 08/18/2020 0.59 Liters Final ERV %Pre Predicted 08/18/2020 76 % Final FRC PL Predicted 08/18/[address] Pre 08/18/[address] %Pre Predicted 08/18/2020 97 % Final Lab Draw on 08/15/2020 Component Date Value Ref Range Status SARS-CoV-2 RNA 08/15/2020 Not Detected Not Detected Final documented in this encounter* Jose R Larios, FIRE CAPTAIN MARINE - 12/04/2020 2:45 PM EST [facility] DAILY TREATMENT NOTE Today's Date 12/04/2020 Patient Name: Matthew Perez Date of : 1955 Current Visit #: 01/09 Authorized Visits: 99 Case Name: Lumbar - PT History: Pre-Treatment Pain Scale: 7 Symptoms: gradually worsened Functional Diagnosis: 1. Lumbar pain Clinical Information: Subjective: Patient arrived to appointment using standard cane for ambulation. States she does not typically use AD but thought she should because of increased pain in R LE. Objective:Today's Physical/Functional Problems being addressed: core and LE strength, posture Pt's perceived % improvement: NA Risks and benefits of treatment discussed with patient/post acute care nurse:Yes Treatments: Physical Therapy Exercise Log - 12/04/20 1501 OTHER Precautions/Contraindications Asthma, COPD, Depression, DM, GERD, HTN, Migraines, RLS, AYO, Varicose veins, Cervical fusion C5-7, Lumbar fusion L2-S1 Notes 300-342 therex Vitals Pt goes by Matthew Rose Therapeutic Exercise ([id number]) Intervention SciFit L1 8 min -B UE/LE's Parameters HS stretches @ steps 3x ea LE 20 hold visual demo for proper technique, vc's for hold time Intervention B heel raises on step x15 Parameters Foam pad marching 1 min visual demo for proper technique Intervention Seated hip adductor squeeze with OB between knees 10 hold x10 Parameters LAQ's with OB squeeze 15x ea LE Intervention B shoulder extension and rows in standing using green TBand resistance 15x ea Parameters Supine bug march x20 placed over wedge for breathing difficulties Intervention Figure 4 piriformis stretch 2x 20 hold Parameters Pelvic tilts 10 hold x10 visual demo for proper technique, vc's for hold time PT Treatment Times Therex Total Time 42 Direct Treatment Time 42 Total Treatment Time 42 Goals: Physical Therapy 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 Independent with home exercise program. 2. Improve trunk strength for pt to be able to tolerate 30 minutes of exercise without increased lumbar pain or excess fatigue to improve mobility tolerance. 3. Pt to demonstrate the ability to amb 500 ft with minimal increased pain to improve ability to amb in the community. 4. Pt to report being able to be on her feet standing stationary > 5 min without increased pain to improve activity tolerance. Modified Oswestry Goal = 40%, IE 58% Pt's Goal: To lower my pain as much as possible. Pt states that she does not think that physical therapy helps, but she has to go through it before she can have surgery. Initial Evaluation 11/25/2020 HEP: 11/25/20 Abdominal bracing 10 sec hold x10, Bug St I 15x ea, Standing B hip abd, ext, flex 15x ea. Patient Education: Quality of movement and HEP Adherence with patient verbalized understanding. Post-Treatment Pain Scale: 7 Assessment: Patient had an expected response to treatment. tolerated progression of exercises well with only slight increase in discomfort upon completion. Reviewed HEP and log rolling to get out of bed as patient states she has most difficulty with transferring in/out of bed. Skilled Intervention demonstrated by modifications of treatment per exercise log including increased intensity, increased mobility and assessment of patient's response and safety interventions per exercise log. Progress towards goals as expected. Plan for Next Visit: Treatment Visit with focus on continued progression of core and LE strength, ambulation activities building tolerance/time Jose R Larios PTA STATE LICENSE, [employer]TAIN [employer]INE.[id number] documented in this encounter* Dylon Abdul, DUGLAS - 12/08/2020 1:15 PM EST [facility] DAILY TREATMENT NOTE Today's Date 12/08/2020 Patient Name: Matthew Perez Date of : 1955 Current Visit #: 02/09 Authorized Visits: 99 Case Name: Lumbar - PT History: Pre-Treatment Pain Scale: 6 Symptoms: gradually improved Functional Diagnosis: 1. Lumbar pain Clinical Information: Subjective: pt reports still having trouble standing or ambulating prolonged period of time. Pt still lacking strength, and overall endurance. ...Today's Physical/Functional Problems being addressed: See above. Risks and benefits of treatment discussed with patient/post acute care nurse: Yes Objective ...Tx Start Time: 116 Tx End Time: 156 Treatments: Physical Therapy Exercise Log - 12/08/20 1318 OTHER Precautions/Contraindications Asthma, COPD, Depression, DM, GERD, HTN, Migraines, RLS, AYO, Varicose veins, Cervical fusion C5-7, Lumbar fusion L2-S1 Vitals Pt goes by Milana Therapeutic Exercise ([id number]) Intervention SciFit L2 8 min -B UE/LE's Parameters Seated hip adductor squeeze with OB between knees 10 hold x10 visual demo for proper technique, vc's for hold time Intervention LAQ's with OB squeeze 15x ea LE Parameters B heel raises on blue foam x15 visual demo for proper technique Intervention Foam pad marching 1 min Parameters Standing on blue foam hip abd, ext, flex 15 x ea LE Intervention Lateral step up onto blue foam [address] Parameters B shoulder extension and rows in standing using green TBand resistance 15x ea placed over wedge for breathing difficulties Intervention Standing t-band pull apart, diagonals with Left hand going up, and Right arm going down orange 15 x ea Parameters Standing shallow squats 10 x 5 sec hold visual demo for proper technique, vc's for hold time PT Treatment Times Therex Total Time 40 116-156 Direct Treatment Time 40 Goals: Physical Therapy 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 Independent with home exercise program. 2. Improve trunk strength for pt to be able to tolerate 30 minutes of exercise without increased lumbar pain or excess fatigue to improve mobility tolerance. 3. Pt to demonstrate the ability to amb 500 ft with minimal increased pain to improve ability to amb in the community. 4. Pt to report being able to be on her feet standing stationary > 5 min without increased pain to improve activity tolerance. Modified Oswestry Goal = 40%, IE 58% Pt's Goal: To lower my pain as much as possible. Pt states that she does not think that physical therapy helps, but she has to go through it before she can have surgery. Initial Evaluation 11/25/2020 HEP: 11/25/20 Abdominal bracing 10 sec hold x10, Bug St I 15x ea, Standing B hip abd, ext, flex 15x ea. 12/08/19 Seated hip add with ball between her knees, standing heel/toe raises, and standing marching Patient Education: Written HEP with patient demonstrated understanding and verbalized understanding. Post-Treatment Pain Scale: 6 Assessment: Patient had an expected response to treatment. pt completed exercise above to work on LE strength, and balance. Pt completed exercise with v/c for form, and posture. Skilled Intervention demonstrated by modifications of treatment per exercise log including assessment of patient's response and safety interventions per exercise log. Progress towards goals as expected. Plan for Next Visit: Treatment Visit with focus on Core strength, and posture. pt is going to try her next visit at the [facility] in the wellness center 12/12/20 1145. Dylon Abdul PTA STATE LICENSE, [employer]TAIN [employer]INE.[id number] documented in this encounter* Ruby Boucher, AIR CONDITIONING UNIT TESTER - 09/25/2019 1:09 PM EST Nam: Matthew Perez Age: 64 y.o. : 1955 Date: 09/25/2019 Provider: Ruby Boucher CNP Chief Complaint Patient presents with Back Pain HISTORY OF PRESENT ILLNESS: Matthew Perez is a 64 y.o. female that presents with complaints of pain in the low back, bilateralhips and legs (>R side) to the knee. Reported symptoms include the following: aching and sharp in character; 10/10 in severity. Pain medication provides relief to 4/10. Symptoms have not changed from the previous visit. Exacerbating factors identified by the patient are stair steps, walking , standing and most movement. Alleviating factors/conservative treatments tried include the following:heat (heating pad, warm compress, soaking), cold pack and rest. Discouraged by the fact that she sits/lays more than she would like.Once again asked for more medication. Finished PT. She saw a spinal surgeon and will be seeing an orthopedic surgeon to evaluate her previous hip replacement. Analgesia: Patient has adequate analgesia with the use of current opioid pain medication. Activities of Daily Living: Patient's activities of daily living and psychological functioning haveimproved sufficiently with use of the current opioid medication. Adverse Effects: Patient reports no adverse effects with use of the opioid pain medication. Aberrant Drug-Taking Behavior: Patient has demonstrated no aberrant drug taking behaviors with no deviation from prescription. Allergies Allergen Reactions Ibuprofen GI Intolerance Lyrica [Pregabalin] Other (See Comments) nightmares Duloxetine GI Intolerance Nausea Metformin GI Intolerance Current Outpatient Medications Medication Sig Dispense Refill albuterol (PROVENTIL) 2.5 mg /3 mL (0.083 %) nebulizer solution Take 2.5 mg by nebulization daily as needed . budesonide-formoterol (SYMBICORT) 160-4.5 mcg/actuation inhaler Inhale 2 puffs 2 (two) times a day. clonazePAM (KLONOPIN) 1 MG tablet Take 1 mg by mouth 2 (two) times a day as needed . furosemide (LASIX) 20 MG tablet Take 20 mg by mouth daily . hydroCHLOROthiazide (HYDRODIURIL) 25 MG tablet Take 25 mg by mouth daily . ibuprofen (ADVIL,MOTRIN) 200 MG tablet Take 200 mg by mouth every 6 (six) hours as needed for pain . lisinopril (PRINIVIL,ZESTRIL) 20 MG tablet Take 20 mg by mouth every evening . montelukast (SINGULAIR) 10 mg tablet Take 10 mg by mouth daily . NARCAN 4 mg/actuation [address] Administer 1 spray into one nostril for known or suspected opioid overdose. If patient worsens or does not respond, may repeat in 2-3 minutes. . 1 Package 0 oxyCODONE-acetaminophen (PERCOCET) 10-325 mg per tablet Take 2 (two) tablets by mouth 3 (three) times a day (Days supply per fill: 30) M51.36 Start: 09/02/19. 180 tablet 0 predniSONE (DELTASONE) 10 MG tablet 60 mg daily on days 1 through 5, 40 mg on day 6, 20 mg on day 7, 20 mg on day 8, 10 mg on day 9, and 5 mg on day 10 . 40 tablet 0 promethazine (PHENERGAN) 25 MG tablet Take 25 mg by mouth every 6 (six) hours as needed for nausea. rOPINIRole (REQUIP) 2 MG tablet Take 2 mg by mouth 3 (three) times a day Reasons: Extreme Discomfort in Calves when Sitting or Lying Down. sertraline (ZOLOFT) 100 MG tablet Take 100 mg by mouth daily . tiotropium (SPIRIVA) [address] 18 mcg into inhaler and inhale daily . tiZANidine (ZANAFLEX) 4 MG tablet Take 1 (one) tablet (4 mg total) by mouth 3 (three) times a day .90 tablet 2 traZODone (DESYREL) 50 MG tablet Take 50 mg by mouth daily . ibuprofen (ADVIL,MOTRIN) 800 MG tablet Take 1 (one) tablet (800 mg total) by mouth 2 (two) times a day. 60 tablet 1 meclizine (ANTIVERT) 25 mg tablet Take 1 (one) tablet (25 mg total) by mouth every 6 (six) hours for 5 days . 20 tablet 0 omeprazole (PRILOSEC) 40 MG capsule Take 1 (one) capsule (40 mg total) by mouth daily. 30 capsule 5 ranitidine (ZANTAC) 300 MG tablet Take 1 (one) tablet (300 mg total) by mouth nightly. 30 tablet 5 SUMAtriptan (IMITREX) 100 MG tablet Take 1 (one) tablet (100 mg total) by mouth as needed for migraine. 6 tablet 0 No current facility-administered medications for this visit. Past Medical History: Diagnosis Date Arthritis osteo Asthma 08/23/2014 Benign hypertension 04/01/2015 Cataract 08/23/2014 immature Chronic pain disorder rt foot, hx 4 foot fractures; calves of legs cause pain,muscle spasms Congestive heart failure (HCC) 10/13/2015 patient denies COPD (chronic obstructive pulmonary disease) (HCC) Depression Diarrhea Fibromyalgia, primary GERD (gastroesophageal reflux disease) patient denies History of cardiac cath 2005 normal reported by patient History of echocardiogram History of stress test 09/08/2015 Hypertension controlled Migraines Obesity Pneumonia x2 , had 2 pneumonia shots Restless legs syndrome Shoulder joint pain rt plan Arthroscopy rotator cuff repair Sleep apnea, obstructive unable to use cpap; recently received mouthpiece but not using Varicose veins of both lower extremities Past Surgical History: Procedure Laterality Date AR'SCOPY SHOULD SAD, SLAP, RCR, RESECT DISTAL CLAVICLE, BICEPS TENODESIS Right 11/04/2015 Procedure: AR'SCOPY RT SHOULD GREGORY, RCR, & BICEPS POSS OPEN; Surgeon: Jack Dave MD; Location: [facility] Main OR; Service: ARTHROPLASTY HIP TOTAL Right 02/27/2018 Procedure: RIGHT TOTAL HIP ARTHROPLASTY; Surgeon: Gabo Sears MD; Location: [facility] Main OR; Service: Orthopedic BACK SURGERY 2008,2002 x 2 Low back, BLADDER SUSPENSION bladder tie-up BRONCHOSCOPY CARDIAC CATHETERIZATION 08/2006 [facility] COLONOSCOPY FOOT SURGERY Right foot hammer, toes; 3 surg FOOT SURGERY Right hammer toes, fractuered foot;3 surg HYSTERECTOMY CARLOS MANUEL BSO Bladder suspension JOINT REPLACEMENT Right TKR KNEE SURGERY Left 2013 arthroscopic LAMINECTOMY DECOMP LUMBAR W/FUSION 4 OR MORE LVL N/A 11/08/2017 Procedure: HARDWARE REMOVAL L4-S1, DECOMPRESSION/FUSION L2-L4, PLIF, REINSTRUMENT L2-S1; Surgeon: Alejo Hummel MD; Location: [facility] Main OR; Service: Orthopedic LUNG SURGERY Right lower lobe; biopsy taken and nodule was benign NECK SURGERY 2008,2013 x 2 C5-6-7 anterior, 2nd included T1- C5-6-7 ROTATOR CUFF REPAIR Left TONSILLECTOMY VEIN SURGERY 2014 vein taken out in lower Left leg in alba Dr. Abbos WISDOM TOOTH EXTRACTION Social History Socioeconomic History Marital status: Spouse name: Derrek Number of children: Not on file Years of education: Not on file Highest education level: Not on file Occupational History Not on file Social Needs Financial resource strain: Not on file Food insecurity Worry: Not on file Inability: Not on file Transportation needs Medical: Not on file Non-medical: Not on file Tobacco Use Smoking status: Never Smoker Smokeless tobacco: Never Used Substance and Sexual Activity Alcohol use: Yes Alcohol/week: 0.0 standard drinks Comment: sometimes 10 a year; rare Drug use: No Sexual activity: Yes Partners: Male control/protection: None Lifestyle Physical activity Days per week: Not on file Minutes per session: Not on file Stress: Not on file Relationships Social connections Talks on phone: Not on file Gets together: Not on file Attends sabianist service: Not on file Active member of club or organization: Not on file Attends meetings of clubs or organizations: Not on file Relationship status: Not on file Other Topics Concern Not on file Social History Narrative Merged History Encounter Family History Problem Relation Age of Onset Hypertension Father Heart disease Father Diabetes Father Breast cancer Mother ; cancer went to brain, liver and lungs Brain cancer Mother Liver cancer Mother Lung cancer Mother Hypertension Sister Diabetes Sister Hypertension Other siblings Diabetes Other siblings No Known Problems Brother Surgical complications Neg Hx Anesthesia problems Neg Hx Clotting disorder Neg Hx Deep vein thrombosis Neg Hx Pulmonary embolism Neg Hx Social History Substance and Sexual Activity Alcohol Use Yes Alcohol/week: 0.0 standard drinks Comment: sometimes 10 a year; rare Social History Substance and Sexual Activity Drug Use No Social History Tobacco Use Smoking Status Never Smoker Smokeless Tobacco Never Used Review of Systems Constitutional: Negative for appetite change, diaphoresis, fatigue and fever. HENT: Negative for dental problem, hearing loss and trouble swallowing. Eyes: Negative for pain, discharge and visual disturbance. Wears glasses Respiratory: Positive for shortness of breath. Negative for cough and wheezing. COPD Cardiovascular: Negative for chest pain and leg swelling. Gastrointestinal: Negative for diarrhea, nausea and vomiting. Genitourinary: Negative for difficulty urinating and dysuria. Musculoskeletal: Positive for arthralgias and back pain. Skin: Negative for pallor and rash. Neurological: Negative for dizziness and light-headedness. Vertigo had MRI and seeing ENT Psychiatric/Behavioral: The patient is not nervous/anxious. B/B control:0 - Normal Walking normally Physical Exam Constitutional: She is oriented to person, place, and time. She appears well- developed and well-nourished. HENT: Head: Normocephalic and atraumatic. Eyes: Pupils are equal, round, and reactive to light. Conjunctivae are normal. Cardiovascular: Normal rate and regular rhythm. Pulmonary/Chest: Effort normal and breath sounds normal. Neurological: She is alert and oriented to person, place, and time. Skin: Skin is warm and dry. Psychiatric: Her behavior is normal. Judgment and thought content normal. Ortho Exam 64 y.o. BP 126/84 Ht 5' 6 Wt 86.6 kg (191 lb) BMI 30.83 kg/m 1. Postlaminectomy syndrome of lumbar region oxyCODONE-acetaminophen (PERCOCET) 10-325 mg per tablet DISCONTINUED: oxyCODONE-acetaminophen (PERCOCET) 10-325 mg per tablet TREATMENT GOAL: ASSESSMENT/PLAN: Discussed 90 mme dosing and limited room to increase for chronic pain. Refill oxycodone/APAP 10-325 mg 10/03 and 11/02, follow up 2 months. Pattern of pain is reported as Consistent I will continue to monitor for addiction and aberrant behavior, will use opiates with goal of weaning to lowest effective dose, will maximize doses of neuropathic agents and adjuvant therapies. For any new medications prescribed today, patient was educated about indications for the medication, how to take the medication and potential side effects of the medications. I have discussed the findings of this office visit with him. The discussion included a complete verbal explanation of the examination results, diagnosis and current treatment plan. The treatment plan is discussed, covering the risk and benefits as well as possible side effects. The patient questions are addressed. The patient verbalizes understanding and agreement with planned treatment. The patient is reminded that there is a risk of addiction. Patient has been counseled about the risk and benefit of opioid medications. The patient has been encourged to explore non-medication alternatives to manage pain. The patient is subject to being randomly assessed by oral/urine drug screening and/or pill count as needed to monitor patient compliance and adherance to the plan of care. OARRS/NARxCHECK Report Received and Assessed: 07/31/19 Date controlled substance agreement signed: 01/22/19 (ap) Date of last drug screen: 06/01/19 (ap) documented in this encounter* Jose R Larios, [employer] - 12/18/2020 2:45 PM EST [facility] DA[facility] TREATMENT NOTE Today's Date 12/18/2020 Patient Name: Matthew Perez Date of : 1955 Current Visit #: 03/11 Authorized Visits: 99 Case Name: Lumbar - PT History: Pre-Treatment Pain Scale: 7 Symptoms: gradually worsened Functional Diagnosis: 1. Lumbar pain Clinical Information: Subjective: patient arrived to appointment stating above pain level in B knees. States compliance of home exercises. Talked about postural awareness and proper body mechanics. Patient verbalized understanding. Objective:Today's Physical/Functional Problems being addressed: core and LE strength, pain, decreased activity tolerance Pt's perceived % improvement: NA Risks and benefits of treatment discussed with patient/post acute care nurse:Yes Treatments: Physical Therapy Exercise Log - 12/18/20 1445 OTHER Precautions/Contraindications Asthma, COPD, Depression, DM, GERD, HTN, Migraines, RLS, AYO, Varicose veins, Cervical fusion C5-7, Lumbar fusion L2-S1 Notes [id number] therex Vitals Pt goes by Milana Therapeutic Exercise ([id number]) Intervention SciFit L2 8 min -B UE/LE's Parameters Standing HS stretches @ steps 3x ea 20 hold visual demo for technique, vc's for reps Intervention B heel raises on step x20 visual demo for technique Parameters Seated hip adductor squeeze with OB between knees 10 hold x10 Intervention Sit to stand with OB x10 new exercise; tolerated well. Parameters Standing march on foam pad 1 min Intervention Scapular squeezes 10 hold x10 Parameters B shoulder extension and rows in standing using green TBand resistance 15x ea standing on foam pad to engage core Intervention Green TBand pull aparts and diagonals 10x ea direction -seated postion visual demo, vc's for technique Parameters HEP update -construction and handout PT Treatment Times Therex Total Time 45 Direct Treatment Time 45 Total Treatment Time 45 Goals: Physical Therapy Ortho Goals: [facility] goals to be met 6 weeks from 11/25/2020 1. Independent with home exercise program. 2. Improve trunk strength for pt to be able to tolerate 30 minutes of exercise without increased lumbar pain or excess fatigue to improve mobility tolerance. 3. Pt to demonstrate the ability to amb 500 ft with minimal increased pain to improve ability to amb in the community. 4. Pt to report being able to be on her feet standing stationary > 5 min without increased pain to improve activity tolerance. Modified Oswestry Goal = 40%, IE 58% Pt's Goal: To lower my pain as much as possible. Pt states that she does not think that physical therapy helps, but she has to go through it before she can have surgery. Initial Evaluation 11/25/2020 HEP: 11/25/20 Abdominal bracing 10 sec hold x10, Bug St I 15x ea, Standing B hip abd, ext, flex 15x ea. 12/08/19 Seated hip add with ball between her knees, standing heel/toe raises, and standing marching Patient Education: Quality of movement and HEP Adherence with patient verbalized understanding. Post-Treatment Pain Scale: no significant increase in pain upon completion of exercises Assessment: Patient had an expected response to treatment. Tolerated progression well. Given green tband and handout for additional home exercises for trunk strengthening. Demonstrated understanding of all activities. Skilled Intervention demonstrated by modifications of treatment per exercise log including assessment of patient's response and safety interventions per exercise log. Progress towards goals as expected. Plan for Next Visit: Treatment Visit with focus on continued core and LE strength as well as posture Jose R Larios PTA STATE LICENSE, [employer].[id number] documented in this encounter* Araseli Forrest, DUGLAS - 08/13/2019 2:15 PM EDT [facility] DAILY TREATMENT NOTE Today's Date 08/13/2019 Patient Name: Matthew Perez Date of : 1955 Current Visit #: 01/05 Authorized Visits: 99 Case Name: Lumbar - PT History: Pre-Treatment Pain Scale: 4 Symptoms: stabilized Functional Diagnosis: 1. History of falling 2. DDD (degenerative disc disease), lumbar Clinical Information: Subjective: Patient reports some soreness following PT. States this last a day or two. Notes with visual tracking using A she has noticed the A is shaking with looking to L then transitioning to R. States when doing the seated marching she is significantly challenged with clearing feet off of ground. Objective Treatments: Physical Therapy Exercise Log - 08/13/19 9082 OTHER Precautions/Contraindications Varicose veins, AYO, Migraines, HTN, GERD, FM, Depression, COPD, Asthma, Lumbar fusion, Cervical fusion Notes 2:19-2:57 Vitals Pt goes by Matthew Rose Therapeutic Exercise ([id number]) Intervention Supine abdominal bracing 15x5 ea Increased repetitions. Parameters Supine marching x15 with abdominal bracing x15 Completed with cues for breathing technique. Some discomfort noted in R hip. Improved ability to lift LEs. Intervention Seated LAQ with abdominal bracing 15x ea Increased repetitions. Parameters Seated hip adduction with 5 sec hold x10 Cues for upright posture/abdominal bracing. Intervention Sit to stands x10 LBP intensified with exercise; 04/09. Neuro Re-Ed ([id number]) Intervention Seated Smooth pursuits 4-way 10x ea Ringing in ears bilaterally; intensified with up movement. Parameters Standing X1 ex's 8 ft away L/R, up/down x10 each Postural swaying noted with up/down movements. Ringing in ear remained the same throughout. Intervention Seated head turns L/R 10x ea; up/down 10x ea, B diagonals 10x ea, no s/s with L/R or diagonals Ringing in ears with up/down, L/R, diagonals. Intensity of ringing did not change throughout. Parameters Standing head turns: L/R, up/down, diagonals 10x ea Cues for proper sequencing with good carry over. Introduced diagonal. Postural swaying with diagonals. Intervention Modified tandem stance up/down, L/R x10 Postural swaying demonstrated. Intensified with up/down. Parameters -- PT Treatment Times Therex Total Time 13 Neuro Re-Ed Total Time 25 Direct Treatment Time 38 Total Treatment Time 38 Goals: Physical Therapy Ortho Goals: Short term goals to be met 2 weeks from 07/27/2019 A. Independent with home exercise program B. Centralize or abolish symptoms to increase ADL's/work tolerance C. Display appropriate posture and body mechanics >=75% of PT sessions to increase healing and increase postural and functional tolerances D. Improve strength B LE => 4+/5 all motions and able to walk > 200 ft without increased lumbar symptoms to allow pt to be more active outside of the home. E. Pt to demonstrate the ability to amb while turning her head without unsteadiness or LOB to decrease risk of falls in the future. [facility] goals to be met 4 weeks from 07/27/2019 1. Pt to report being able to help with housework and cooking more often throughout the day, to report feeling 50% less unsteadiness when on her feet, and to be more active during activities around the home. Back Pain Index Goal = 60% , IE 84% Pt's Goal: Lower my pain as much as possible. I'll be honest with you. I think it's going to bringon a lot of pain. I don't think it's going to help. The doctor said that I had to do this to get myMRI. Initial Evaluation 07/27/2019 Patient Education: HEP Adherence with patient verbalized understanding. Post-Treatment Pain Scale: 6 Assessment: Patient had an expected response to treatment. Skilled Intervention demonstrated by modifications of treatment per exercise log including increased rate and plane progressions and safety interventions per exercise log. Progress towards goals as expected. Plan for Next Visit: Treatment Visit with focus on LE strengthening, core strengthening, visual pursuits. Araseli Forrest PTA STATE LICENSE, [employer].[id number] documented in this encounter* Orin Esposito, PT - 12/25/2020 1:45 PM EST [facility] TREAT[facility] NOTE Today's Date 12/25/2020 Patient Name: Matthew Perez Date of : 1955 Current Visit #: 04/11 Authorized Visits: 99 Case Name: Lumbar - PT History: Pre-Treatment Pain Scale: 4 Symptoms: Functional Diagnosis: 1. Lumbar pain Clinical Information: Subjective: Pt states that today her knees are bothering her more than her back. She states that yesterday she was on her feet more than normal and the night before she had done exercise. She feels like between the two of these it has made her knees hurt. Pt states that she has to finish her PT in order to get her MRI done. Objective Treatments: Physical Therapy Exercise Log - 12/25/20 1345 OTHER Precautions/Contraindications Asthma, COPD, Depression, DM, GERD, HTN, Migraines, RLS, AYO, Varicose veins, Cervical fusion C5-7, Lumbar fusion L2-S1 Notes 145-230 Vitals Pt goes by Matthew Rose Therapeutic Exercise ([id number]) Intervention SciFit L2 8 min -B UE/LE's Parameters Standing HS stretches @ steps 3x ea 30 hold Pt cramping in R ant thigh during this. visual demo for technique, vc's for reps Intervention Heel hangs to heel raises 5-10 sec hold x5 ea visual demo for technique Parameters Alt hip abd 2 min, Alt step taps on 12 step 2 min Intervention Green TBand: rows 15x, B shoulder ext 15x, pull aparts 15x, diagonal pull aparts up with L UE 15x new exercise; tolerated well. Parameters Goal review Intervention Amb in hallway 380 ft with some fatigue and unsteadiness Parameters -- standing on foam pad to engage core Intervention -- visual demo, vc's for technique Parameters -- PT Treatment Times Therex Total Time 45 Direct Treatment Time 45 Total Treatment Time 45 Goals: Physical Therapy Ortho Goals: [facility] goals to be met 6 weeks from 11/25/2020 1. Independent with home exercise program. 12/25/20 Met. Pt is doing her HEP 5x/wk. 2. Improve trunk strength for pt to be able to tolerate 30 minutes of exercise without increased lumbar pain or excess fatigue to improve mobility tolerance. 12/25/20 Pt has been tolerating exercises during Rx session, but she hurts the next day. She has been doing 45 minutes of exercise in treatment sessions. 3. Pt to demonstrate the ability to amb 500 ft with minimal increased pain to improve ability to amb in the community. 12/25/20 Today pt was able to amb 380 [address] in hallway with some unsteadiness and with fatigue when finished. 4. Pt to report being able to be on her feet standing stationary > 5 min without increased pain to improve activity tolerance. 12/25/20 Pt immediately starts having problems when standing stationary. Modified Oswestry Goal = 40%, IE 58% Pt's Goal: To lower my pain as much as possible. Pt states that she does not think that physical therapy helps, but she has to go through it before she can have surgery. Initial Evaluation 11/25/2020 HEP: 11/25/20 Abdominal bracing 10 sec hold x10, Bug St I 15x ea, Standing B hip abd, ext, flex 15x ea. 12/08/19 Seated hip add with ball between her knees, standing heel/toe raises, and standing marching \ 12/18/20 tband pull aparts, diagonals, rows and extensions (green band) Patient Education: Continue to work on HEP. Assessment: Patient appeared to tolerate exercises well today. She finished with a longer walk of 380 ft. She states that this would bother her knees later. Tried to modify exercises to avoid this happening. Skilled Intervention demonstrated by modifications of treatment per exercise log including assessment of patient's response and safety interventions per exercise log. Plan for Next Visit: Continue to do exercises as tolerated. May resume sit to stand. Continue with LE strengthening exercises without increased pain. Orin Esposito, PT STATE LICENSE, PT.[id number] documented in this encounter* Dylon Abdul, [employer] - 12/29/2020 1:15 PM EST [facility] DA[facility] TREATMENT NOTE Today's Date 12/29/2020 Patient Name: Matthew Perez Date of : 1955 Current Visit #: 05/11 Authorized Visits: 99 Case Name: Lumbar - PT History: Pre-Treatment Pain Scale: 3 Symptoms: gradually improved Functional Diagnosis: 1. Lumbar pain Clinical Information: Subjective: pt reports her knee has hurt a little more here lately. Pt reports she had to use her walker over the weekend due to her COPD. Pt still lacking strength, and overall endurance. ...Today's Physical/Functional Problems being addressed: See above. Risks and benefits of treatment discussed with patient/post acute care nurse: Yes Objective ...Tx Start Time: 112 Tx End Time: 153 Treatments: Physical Therapy Exercise Log - 12/29/20 1313 OTHER Precautions/Contraindications Asthma, COPD, Depression, DM, GERD, HTN, Migraines, RLS, AYO, Varicose veins, Cervical fusion C5-7, Lumbar fusion L2-S1 Vitals Pt goes by Matthew Rose Therapeutic Exercise ([id number]) Intervention SciFit L2 8 min -B UE/LE's Parameters Standing HS stretches @ steps 3x ea 30 hold visual demo for technique, vc's for reps Intervention Heel hangs to heel raises 5-10 sec hold 10 ea visual demo for technique Parameters Standing on blue foam Alt hip abd, ext 15 x Alt step taps on 12 step 2 min Intervention Standing on blue foam heel/toe 20 x ea new exercise; tolerated well. 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 Independent with home exercise program. 12/25/20 Met. Pt is doing her HEP 5x/wk. 2. Improve trunk strength for pt to be able to tolerate 30 minutes of exercise without increased lumbar pain or excess fatigue to improve mobility tolerance. 12/25/20 Pt has been tolerating exercises during Rx session, but she hurts the next day. She has been doing 45 minutes of exercise in treatment sessions. 3. Pt to demonstrate the ability to amb 500 ft with minimal increased pain to improve ability to amb in the community. 12/25/20 Today pt was able to amb 380 [address] in hallway with some unsteadiness and with fatigue when finished. 4. Pt to report being able to be on her feet standing stationary > 5 min without increased pain to improve activity tolerance. 12/25/20 Pt immediately starts having problems when standing stationary. Modified Oswestry Goal = 40%, IE 58% Pt's Goal: To lower my pain as much as possible. Pt states that she does not think that physical therapy helps, but she has to go through it before she can have surgery. Initial Evaluation 11/25/2020 HEP: 11/25/20 Abdominal bracing 10 sec hold x10, Bug St I 15x ea, Standing B hip abd, ext, flex 15x ea. 12/08/19 Seated hip add with ball between her knees, standing heel/toe raises, and standing marching \ 12/18/20 tband pull aparts, diagonals, rows and extensions (green band) Patient Education: Written HEP with patient demonstrated understanding and verbalized understanding. Post-Treatment Pain Scale: 4 Assessment: Patient had an expected response to treatment. pt completed exercise above. Pt completed exercise with v/c for form, and posture. Skilled Intervention demonstrated by modifications of treatment per exercise log including assessment of patient's response and safety interventions per exercise log. Progress towards goals as expected. Plan for Next Visit: Treatment Visit with focus on Core strength, and posture. Attempt to add more balance exercise to pt tolerance. Dylon Abdul PTA STATE LICENSE, [employer].[id number] documented in this encounter* Eyal Duron MD - 12/30/2020 3:37 PM EST Nam: Matthew Perez Age: 65 y.o. : 1955 Date: 12/30/2020 Provider: Eyal Duron MD Chief Complaint Patient presents with Back Pain HISTORY OF PRESENT ILLNESS: Matthew Perez is a 65 y.o. female who presents complaining of pain in the neck, shoulders Bilateral, low back, buttocks, hips Bilateral and legs Bilateral. Current symptoms include: aching, dull, sharp and throbbing in character; 7/10 in severity. Symptoms have not changed from the previous visit. Exacerbating factors identified by the patient are bending backwards, bending forwards, increased intrathoracic pressure (cough, sneeze, etc.), standing and walking. Patient was seeing me fora long time and then switched to [facility] . Apparently none of the above has helped, patient is looking for something else. Analgesia: Patient has adequate analgesia with the use of current opioid pain medication. Activities of Daily Living: Patient's activities of daily living and psychological functioning haveimproved sufficiently with use of the current opioid medication. Adverse Effects: Patient reports no adverse effects with use of the opioid pain medication. Aberrant Drug-Taking Behavior: Patient has demonstrated no aberrant drug taking behaviors with no deviation from prescription. Allergies Allergen Reactions Ibuprofen GI Intolerance Lyrica [Pregabalin] Other (See Comments) nightmares Duloxetine GI Intolerance Nausea Nsaids (Non-Steroidal Anti-Inflammatory Drug) GI Intolerance Metformin GI Intolerance Current Outpatient Medications Medication Sig Dispense Refill albuterol (PROVENTIL) 2.5 mg /3 mL (0.083 %) nebulizer solution Take 2.5 mg by nebulization daily as needed . amLODIPine (NORVASC) 5 MG tablet Anoro Ellipta 62.5-25 mcg/actuation DsDv budesonide-formoterol (SYMBICORT) 160-4.5 mcg/actuation inhaler Inhale 2 puffs 2 (two) times a day. celecoxib (CELEBREX) 100 MG capsule clonazePAM (KLONOPIN) 1 MG tablet Take 1 mg by mouth 2 (two) times a day as needed . furosemide (LASIX) 20 MG tablet Take 20 mg by mouth daily . hydroCHLOROthiazide (HYDRODIURIL) 25 MG tablet Take 25 mg by mouth daily . ibuprofen (ADVIL,MOTRIN) 200 MG tablet Take 200 mg by mouth every 6 (six) hours as needed for pain . lisinopril (PRINIVIL,ZESTRIL) 20 MG tablet Take 20 mg by mouth every evening . montelukast (SINGULAIR) 10 mg tablet Take 10 mg by mouth daily . NARCAN 4 mg/actuation [address] Administer 1 spray into one nostril for known or suspected opioid overdose. If patient worsens or does not respond, may repeat in 2-3 minutes. . 1 Package 0 OxyCONTIN 20 mg 12 hr tablet predniSONE (DELTASONE) 10 MG tablet 60 mg daily on days 1 through 5, 40 mg on day 6, 20 mg on day 7, 20 mg on day 8, 10 mg on day 9, and 5 mg on day 10 . 40 tablet 0 promethazine (PHENERGAN) 25 MG tablet Take 25 mg by mouth every 6 (six) hours as needed for nausea. rOPINIRole (REQUIP) 2 MG tablet Take 2 mg by mouth 3 (three) times a day Reasons: Extreme Discomfort in Calves when Sitting or Lying Down. sertraline (ZOLOFT) 100 MG tablet Take 100 mg by mouth daily . tiotropium (SPIRIVA) [address] 18 mcg into inhaler and inhale daily . tiZANidine (ZANAFLEX) 4 MG tablet traZODone (DESYREL) 50 MG tablet Take 50 mg by mouth daily . ibuprofen (ADVIL,MOTRIN) 800 MG tablet Take 1 (one) tablet (800 mg total) by mouth 2 (two) times a day. 60 tablet 1 meclizine (ANTIVERT) 25 mg tablet Take 1 (one) tablet (25 mg total) by mouth every 6 (six) hours for 5 days . 20 tablet 0 mirtazapine (REMERON RODRIGO-TAB) 15 MG disintegrating tablet Dissolve 1 (one) tablet (15 mg total) on top of tongue nightly . 30 tablet 0 omeprazole (PRILOSEC) 40 MG capsule Take 1 (one) capsule (40 mg total) by mouth daily. 30 capsule 5 oxyCODONE-acetaminophen (PERCOCET) 10-325 mg per tablet Take 2 (two) tablets by mouth 3 (three) times a day (Days supply per fill: 30) M51.36 Start: 08/07/20. 180 tablet 0 ranitidine (ZANTAC) 300 MG tablet Take 1 (one) tablet (300 mg total) by mouth nightly. 30 tablet 5 SUMAtriptan (IMITREX) 100 MG tablet Take 1 (one) tablet (100 mg total) by mouth as needed for migraine. 6 tablet 0 No current facility-administered medications for this visit. Past Medical History: Diagnosis Date Arthritis osteo Asthma 08/23/2014 Benign hypertension 04/01/2015 Cataract 08/23/2014 immature Chronic pain disorder rt foot, hx 4 foot fractures; calves of legs cause pain,muscle spasms Congestive heart failure (HCC) 10/13/2015 patient denies COPD (chronic obstructive pulmonary disease) (HCC) Depression Diarrhea Fibromyalgia, primary GERD (gastroesophageal reflux disease) patient denies History of cardiac cath 2006 normal reported by patient History of echocardiogram History of stress test 09/08/2015 Hypertension controlled Migraines Obesity Pneumonia x2 , had 2 pneumonia shots Restless legs syndrome Shoulder joint pain rt plan Arthroscopy rotator cuff repair Sleep apnea, obstructive unable to use cpap; recently received mouthpiece but not using Varicose veins of both lower extremities Past Surgical History: Procedure Laterality Date AR'SCOPY SHOULD SAD, SLAP, RCR, RESECT DISTAL CLAVICLE, BICEPS TENODESIS Right 11/04/2015 Procedure: AR'SCOPY RT SHOULD GREGORY, RCR, & BICEPS POSS OPEN; Surgeon: Jack Dave MD; Location: [facility] Main OR; Service: ARTHROPLASTY HIP TOTAL Right 02/27/2018 Procedure: RIGHT TOTAL HIP ARTHROPLASTY; Surgeon: Gabo Sears MD; Location: [facility] Main OR; Service: Orthopedic BACK SURGERY 2008,2002 x 2 Low back, BLADDER SUSPENSION bladder tie-up BRONCHOSCOPY CARDIAC CATHETERIZATION 08/2006 [facility] COLONOSCOPY FOOT SURGERY Right foot hammer, toes; 3 surg FOOT SURGERY Right hammer toes, fractuered foot;3 surg HYSTERECTOMY [facility] BSO Bladder suspension JOINT REPLACEMENT Right TKR KNEE SURGERY Left 2013 arthroscopic LAMINECTOMY DECOMP LUMBAR W/FUSION 4 OR MORE LVL N/A 11/08/2017 Procedure: HARDWARE REMOVAL L4-S1, DECOMPRESSION/FUSION L2-L4, PLIF, REINSTRUMENT L2-S1; Surgeon: Alejo Hummel MD; Location: [facility] Main OR; Service: Orthopedic LUNG SURGERY Right lower lobe; biopsy taken and nodule was benign NECK SURGERY 2008,2013 x 2 C5-6-7 anterior, 2nd included T1- C5-6-7 ROTATOR CUFF REPAIR Left TONSILLECTOMY VEIN SURGERY 2014 vein taken out in lower Left leg in [place] Dr. Jesica SANCHES TOOTH EXTRACTION Social History Socioeconomic History Marital status: Spouse name: Derrek Number of children: Not on file Years of education: Not on file Highest education level: Not on file Occupational History Not on file Social Needs Financial resource strain: Not on file Food insecurity Worry: Not on file Inability: Not on file Transportation needs Medical: Not on file Non-medical: Not on file Tobacco Use Smoking status: Never Smoker Smokeless tobacco: Never Used Substance and Sexual Activity Alcohol use: Yes Alcohol/week: 0.0 standard drinks Comment: sometimes 10 a year; rare Drug use: No Sexual activity: Yes Partners: Male control/protection: None Lifestyle Physical activity Days per week: Not on file Minutes per session: Not on file Stress: Not on file Relationships Social connections Talks on phone: Not on file Gets together: Not on file Attends sabianist service: Not on file Active member of club or organization: Not on file Attends meetings of clubs or organizations: Not on file Relationship status: Not on file Other Topics Concern Not on file Social History Narrative Merged History Encounter Family History Problem Relation Age of Onset Hypertension Father Heart disease Father Diabetes Father Breast cancer Mother ; cancer went to brain, liver and lungs Brain cancer Mother Liver cancer Mother Lung cancer Mother Hypertension Sister Diabetes Sister Hypertension Other siblings Diabetes Other siblings No Known Problems Brother Surgical complications Neg Hx Anesthesia problems Neg Hx Clotting disorder Neg Hx Deep vein thrombosis Neg Hx Pulmonary embolism Neg Hx Social History Substance and Sexual Activity Alcohol Use Yes Alcohol/week: 0.0 standard drinks Comment: sometimes 10 a year; rare Social History Substance and Sexual Activity Drug Use No Social History Tobacco Use Smoking Status Never Smoker Smokeless Tobacco Never Used Review of Systems Constitutional: Negative for activity change and appetite change. HENT: Positive for hearing loss. Negative for dental problem, sinus pressure and trouble swallowing. Eyes: Positive for visual disturbance. Respiratory: Negative for cough. Cardiovascular: Positive for leg swelling. Negative for chest pain. Musculoskeletal: Positive for arthralgias, back pain and gait problem. Psychiatric/Behavioral: The patient is nervous/anxious. B/B control:0 - Normal Antalgic Physical Exam Constitutional: She is oriented to person, place, and time. She appears well- developed and well-nourished. Neck: Spinous process tenderness and muscular tenderness present. Neck rigidity present. Decreased range of motion present. Cardiovascular: Normal rate and regular rhythm. Musculoskeletal: General: Tenderness present. Neurological: She is alert and oriented to person, place, and time. Skin: Skin is warm and dry. Psychiatric: Her behavior is normal. Judgment and thought content normal. Ortho Exam 65 y.o. BP (!) 162/100 Pulse (!) 112 Ht 5' 5 Wt 92.1 kg (203 lb) BMI 33.78 kg/m 1. Encounter for long-term use of opiate analgesic 2. Postlaminectomy syndrome of lumbar region ASSESSMENT/PLAN: needs UDS , patient seems has no insight in what doctor shopping means, will be suggesting SCS trial , too many Drs involved in her care. Very difficult to manage Consistent OARRS/NARxCHECK Report Received and Assessed: 12/30/2020 Date controlled substance agreement signed: 05/20/2020 Date of last drug screen: 12/30/2020 Functional Assessment: No data found I will continue to monitor for addiction and aberrant behavior, will use opiates with goal of weaning to lowest effective dose, will maximize doses of neuropathic agents and adjuvant therapies. For any new medications prescribed today, patient was educated about indications for the medication, how to take the medication and potential side effects of the medications. We have discussed the findings of this office visit. The discussion included a complete verbal explanation of the examination results, diagnosis and current treatment plan. The treatment plan is discussed, covering the risk and benefits as well as possible side effects. The patient's questions were addressed. The patient verbalizes understanding and agreement with planned treatment. The patient is reminded that there is a risk of addiction. Patient has been counseled about the risk and benefit of opioid medications. The patient has been encourged to explore non-medication alternatives to manage pain. The patient is subject to being randomly assessed by oral/urine drug screening and/or pill count as needed to monitor patient compliance and adherance to the plan of care. documented in this encounter* Dylon Abdul, [employer] - 01/05/2021 2:00 PM EST [facility] DAILY TREATMENT NOTE Today's Date 01/05/2021 Patient Name: Matthew Perez Date of : 1955 Current Visit #: 06/11 Authorized Visits: [id number] Case Name: Lumbar - PT History: Pre-Treatment Pain Scale: 2 Symptoms: gradually improved Functional Diagnosis: 1. Lumbar pain Clinical Information: Subjective: pt reports she woke up with pain around a 7/10. Pt reports she took a pain pill and it helped with her pain. Pt reports having numbness in her Left UE. Pt is lacking core strength, and posture. ...Today's Physical/Functional Problems being addressed: See above. Risks and benefits of treatment discussed with patient/post acute care nurse: Yes Objective ...Tx Start Time: 200 Tx End Time: 243 Treatments: Physical Therapy Exercise Log - 01/05/21 1401 OTHER Precautions/Contraindications Asthma, COPD, Depression, DM, GERD, HTN, Migraines, RLS, AOY, Varicose veins, Cervical fusion C5-7, Lumbar fusion L2-S1 Vitals Pt goes by Matthew Rose Therapeutic Exercise ([id number]) Intervention SciFit L3 8 min -B UE/LE's Parameters Standing HS stretches @ steps 3x ea 30 hold Intervention Heel hangs to heel raises 5-10 sec hold 15 x ea Parameters Standing on blue foam Alt hip abd, ext 15 x Alt step taps on 12 step 2 min Intervention Standing on blue foamGreen TBand: rows 15x, B shoulder ext 15x, pull aparts 15x, diagonal pull aparts Left going down15 x ea Parameters Standing on blue foam alt bicep curl, punch out 2# 15 x ea Intervention UBE Retro Seat 11 L2 5 Min- Working on posture PT Treatment Times Therex Total Time 43 200-243 Direct Treatment Time 43 Goals: Physical Therapy 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 Independent with home exercise program. 12/25/20 Met. Pt is doing her HEP 5x/wk. 2. Improve trunk strength for pt to be able to tolerate 30 minutes of exercise without increased lumbar pain or excess fatigue to improve mobility tolerance. 12/25/20 Pt has been tolerating exercises during Rx session, but she hurts the next day. She has been doing 45 minutes of exercise in treatment sessions. 3. Pt to demonstrate the ability to amb 500 ft with minimal increased pain to improve ability to amb in the community. 12/25/20 Today pt was able to amb 380 ft in hallway with some unsteadiness and with fatigue when finished. 4. Pt to report being able to be on her feet standing stationary > 5 min without increased pain to improve activity tolerance. 12/25/20 Pt immediately starts having problems when standing stationary. Modified Oswestry Goal = 40%, IE 58% Pt's Goal: To lower my pain as much as possible. Pt states that she does not think that physical therapy helps, but she has to go through it before she can have surgery. Initial Evaluation 11/25/2020 HEP: 11/25/20 Abdominal bracing 10 sec hold x10, Bug St I 15x ea, Standing B hip abd, ext, flex 15x ea. 12/08/19 Seated hip add with ball between her knees, standing heel/toe raises, and standing marching \ 12/18/20 tband pull aparts, diagonals, rows and extensions (green band) Patient Education: Written HEP with patient demonstrated understanding and verbalized understanding. Post-Treatment Pain Scale: 3 Assessment: Patient had an expected response to treatment. pt completed exercise above to work on core/LE strength, and posture. pt completed exercise with v/c for form, and posture. Skilled Intervention demonstrated by modifications of treatment per exercise log including assessment of patient's response and safety interventions per exercise log. Progress towards goals as expected. Plan for Next Visit: Treatment Visit with focus on Core/LE strength, and posture. Attempt to add gait on uneven surface. Dylon Abdul PTA STATE LICENSE, [employer].[id number] documented in this encounter* Paola Moeller RN - 06/10/2019 3:17 PM EDT 1517 - Discharge instructions given to patient. AVS was provided and reviewed verbally with patientby this RN. Emphasis was placed on medication list, including new medications and possible side effects. Reviewed follow-up appointments with PCP. Education handouts for dizziness, vertigo and neck ex ercises with vertigo were also provided. Prescriptions were sent electronically. Pt denies any further questions at this time. * Lili Freitas MD - 06/10/2019 2:23 PM EDT NEUROLOGY FOLLOW UP NOTE Patient Name: Matthew Perez : 1955 MR #: [id number] Admit Date: [id number] Physicians: Harmony Gee MD (Family); Consulting physician Lili Freitas MD Assessment & Plan: 1. Vestibular neuronitis. Based on persistence of vertigo and ataxia without loss of hearing. Most likely patient has vestibular neuronitis. Not typical presentation for benign paroxysmal positional vertigo. MRI of the brain was done yesterday. Performed independent review of images. At this positive for very mild amount of subcortical white matter changes due to small vessel ischemic disease. No lesionsin posterior fossa that would explain patient's current symptoms. No evidence of acute stroke. Performed independent review of images and results were discussed with the patient. Would recommend 10 days course of prednisone: 60 mg daily on days 1 through 5, 40 mg on day 6, 30 mg on day 7, 20 mg on day 8, 10 mg on day 9, and 5 mg on day 10. We will sign off Chief Complaint: Dizziness, unsteadiness Interval history: 64-year-old female with acute onset of vertigo and floating sensation. Patient has slightimprovement of symptoms. Dizziness less severe. She is able to ambulate with assistance of walker. No new issues overnight. The following portions of the patient's history were reviewed and updated as appropriate: allergies, current medications, past family history, past medical history, past social history, past surgicalhistory and problem list. Home Medications: Outpatient Medications as of 06/10/2019 Medication Sig albuterol (PROVENTIL) 2.5 mg /3 mL (0.083 %) nebulizer solution Take 2.5 mg by nebulization daily as needed . budesonide-formoterol (SYMBICORT) 160-4.5 mcg/actuation inhaler Inhale 2 puffs 2 (two) times a day. clonazePAM (KLONOPIN) 1 MG tablet Take 1 mg by mouth 2 (two) times a day as needed . hydroCHLOROthiazide (HYDRODIURIL) 25 MG tablet Take 25 mg by mouth daily . lisinopril (PRINIVIL,ZESTRIL) 20 MG tablet Take 20 mg by mouth every evening . montelukast (SINGULAIR) 10 mg tablet Take 10 mg by mouth daily . [START ON 07/04/2019] oxyCODONE-acetaminophen (PERCOCET) 10-325 mg per tablet Take 2 (two) tablets bymouth 3 (three) times a day (Days supply per fill: 30) M51.36 Start: 07/04/19. promethazine (PHENERGAN) 25 MG tablet Take 25 mg by mouth every 6 (six) hours as needed for nausea. rOPINIRole (REQUIP) 2 MG tablet Take 2 mg by mouth 3 (three) times a day Reasons: Extreme Discomfort in Calves when Sitting or Lying Down. SUMAtriptan (IMITREX) 100 MG tablet Take 1 (one) tablet (100 mg total) by mouth as needed for migraine. traZODone (DESYREL) 50 MG tablet Take 50 mg by mouth daily . meclizine (ANTIVERT) 25 mg tablet Take 1 (one) tablet (25 mg total) by mouth every 6 (six) hours for 5 days . NARCAN 4 mg/actuation [address] Administer 1 spray into one nostril for known or suspected opioid overdose. If patient worsens or does not respond, may repeat in 2-3 minutes. . omeprazole (PRILOSEC) 40 MG capsule Take 1 (one) capsule (40 mg total) by mouth daily. oxyCODONE (ROXICODONE) 5 MG immediate release tablet 1-2 tablets every 4-6 hours as needed for pain. predniSONE (DELTASONE) 10 MG tablet 60 mg daily on days 1 through 5, 40 mg on day 6, 20 mg on day 7, 20 mg on day 8, 10 mg on day 9, and 5 mg on day 10 . CURRENT MEDICATIONS: Current Facility-Administered Medications: budesonide-formoterol (SYMBICORT) 160-4.5 mcg/actuation inhaler 2 puff, 2 puff, Inhalation, BID, Tonny Coulter MD, 2 puff at 06/10/19 0740 clonazePAM (KLONOPIN) tablet 1 mg, 1 mg, Oral, BID PRN, Tonny Coulter MD, 1 mg at 06/09/19 2100 enoxaparin (LOVENOX) syringe 40 mg, 40 mg, Subcutaneous, Daily, Tonny Coulter MD, 40 mg at 06/09/192026 furosemide (LASIX) tablet 20 mg, 20 mg, Oral, Daily, Tonny Coulter MD, 20 mg at 06/10/19 0823 hydrALAZINE (APRESOLINE) injection 10 mg, 10 mg, Intravenous, Q2H PRN, Cely Aguirre CNP hydroCHLOROthiazide (HYDRODIURIL) tablet 25 mg, 25 mg, Oral, Daily, Tonny Coulter MD, 25 mg at 06/10/19 0823 ibuprofen (ADVIL,MOTRIN) tablet 800 mg, 800 mg, Oral, Q6H PRN, Cely Aguirre CNP, 800 mg at 06/10/19 1353 lisinopril (PRINIVIL,ZESTRIL) tablet 20 mg, 20 mg, Oral, QPM, Tonny Coulter MD, 20 mg at 06/09/192026 meclizine (ANTIVERT) tablet 12.5 mg, 12.5 mg, Oral, TID PRN, Tonny Coulter MD, 12.5 mg at 06/09/19 1203 meclizine (ANTIVERT) tablet 25 mg, 25 mg, Oral, Q6H DAIN, Marcelina Husain MD, 25 mg at 06/10/19 1151 montelukast (SINGULAIR) tablet 10 mg, 10 mg, Oral, Daily, Tonny Coulter MD, 10 mg at 06/09/192026 oxyCODONE-acetaminophen (PERCOCET) 10-325 mg per tablet 2 tablet, 2 tablet, Oral, Q8H PRN, Marcelina Husain MD, 2 tablet at 06/10/19822 perflutren lipid microspheres (DEFINITY) 0.143 mg/mL solution 0-10 mL of mixture, 0-10 mL of mixture, Intravenous, Once in imaging, Missael Washington CNP [START ON 06/11/2019] predniSONE (DELTASONE) tablet 40 mg, 40 mg, Oral, Daily with breakfast, Cely Aguirre CNP promethazine (PHENERGAN) tablet 25 mg, 25 mg, Oral, Q6H PRN, Tonny Coulter MD rOPINIRole (REQUIP) tablet 4 mg, 4 mg, Oral, at bedtime, Tonny Coulter MD, 4 mg at 06/09/192026 sertraline (ZOLOFT) tablet 100 mg, 100 mg, Oral, Daily, Tonny Coulter MD, 100 mg at 06/10/19 0823 SUMAtriptan (IMITREX) tablet 100 mg, 100 mg, Oral, PRN, Tonny Coulter MD tiotropium (SPIRIVA) inhalation capsule 18 mcg, 18 mcg, Inhalation, Daily, Tonny Coulter MD, 18mcg at 06/10/19 0740 traZODone (DESYREL) tablet 50 mg, 50 mg, Oral, at bedtime, Tonny Coulter MD, 50 mg at 06/09/19 2100 Physical Examination: Vital Signs: BP (!) 123/91 (BP Location: Right arm, Patient Position: Sitting) Pulse 78 Temp 98.3 F (36.8 C)(Axillary) Resp (!) 20 Ht 5' 6 Wt 82.1 kg (181 lb) SpO2 93% BMI 29.21 kg/m CONSTITUTIONAL: well developed, adequately nourished; in no acute distress; CARDIOVASCULAR: Regular rate and rhythm; carotids are without bruits bilaterally; 2+ radial and pedal pulses bilaterally; NEUROLOGICAL EXAMINATION: HIGHER INTEGRATIVE FUNCTION :Awake, alert and oriented by name, time, place and condition. Good attention span and concentration, intact recent and remote memory,answers questions appropriatelly SPEECH: Normal, no dysarthria LANGUAGE: Normal, including repetition, naming, fluency, and comprehension. CRANIAL NERVES I: deferred II, III, IV, : Visual hess intact in all quadrants to confrontation. Pupils are equal, round and reactive to light and accommodation, Extraocular movements are intact in all directions with smooth pursuit. Gaze evoked multidirectional, horizontal on lateral gaze, torsional on upgaze. Fundoscopic exam is without evidence of papilledema; V: Trigeminal sensation is intact to light touch VII: Face is symmetric no facial weakness VIII: Hearing is intact to finger rub bilaterally. IX, X: IX, X: palate elevates equally, uvula at midline XI: Trapezius and sternocleidomastoid muscles strength 5/5 bilaterally XII: Tongue protrudes at midline; No fasciculations MOTOR: Normal bulk and tone. No tremor at rest. No pronator drift. Strength 5/5 in muscles of upperand lower extremities REFLEXES: 1+, equal, symmetrical. SENSORY: normal to light touch. TOES: downgoing on right and left COORDINATION: [id number] performed without ataxia and dysmetria. ROMBERG is positive GAIT: ataxic Laboratory and Additional Data Reviewed: Results/Medications Reviewed 06/10/19 2:23 PM: Results from last 7 days Lab Units 06/09/19 0556 06/08/19 1102 SODIUM mmol/L 141 142 POTASSIUM mmol/L 3.7 3.1* CHLORIDE mmol/L 103 107 BUN mg/dL 16 12 CREATININE mg/dL 1.00 0.80 GLUCOSE mg/dL 92 115* CALCIUM mg/dL 9.5 -- Results from last 7 days Lab Units 06/09/19 0556 06/08/19 1102 WBC K/mcL 7.96 7.24 HGB g/dL 13.7 13.4 HCT % 42.2 40.1 PLT K/mcL 146* 135* Results from last 7 days Lab Units 06/08/19 1102 TROPONIN I ng/L <15 Invalid input(s): LABALBU Invalid input(s): GLUCR, KETONEUR, LEUKESUR The total time spent for this visit was 25 minutes. Greater than 50% of the time was spent in counseling/coordination of care specifically involving education. Lili Freitas MD, ABPN, ABSM General Neurology and Sleep Medicine. This note was created using voice recognition software and is inherently subject to errors including those of syntax and sound-alike substitutions. In such instances, original meaning may be extrapolated by contextual derivation. * Paola Moeller RN - 06/09/2019 10:00 AM EDT 1000 - Advised AIR CONDITIONING UNIT TESTER Cely that pt stated her Ibuprofen is PRN not scheduled, asked if AIR CONDITIONING UNIT TESTER wanted to change med, AIR CONDITIONING UNIT TESTER stated would review when sees pt in few minutes. * Adali Mccarty RN - 06/09/2019 6:41 AM EDT Attempted to replace EMS IV on pt. Attempt made by Arturo Canales RN and Nataly Marie RN. Pt refuses anymore attempts to replace IV. * Maria Luz Ashby RN - 06/08/2019 3:59 PM EDT othostatics 06/08/19 1547 06/08/19 1550 06/08/19 1551 Vital Signs Heart Rate 84 93 93 Pulse 84 92 93 Resp 12 (!) 23 (!) 24 BP (!) 177/119 (!) 175/89 (!) 157/101 MAP (mmHg) 136 114 115 BP Location Right arm Right arm Right arm BP Method Automatic Automatic Automatic Patient Position Lying Sitting Standing documented in this encounter* Orin Esposito, PT - 01/21/2021 2:00 PM EDT [facility] TREAT[facility] NOTE Today's Date 01/21/2021 Patient Name: Matthew Perez Date of : 1955 Current Visit #: 08/11 Authorized Visits: 99 Case Name: Lumbar - PT History: Pre-Treatment Pain Scale: 4 Symptoms: Functional Diagnosis: 1. Lumbar pain Clinical Information: Subjective: Pt states that she had some injections in her back 2 days ago. She is not sure if she is feeling better since having them. She did take a long nap after having her injections, but she does not know if it was from being under anesthesia. She felt better after waking up. She is scheduled to get her 2nd Covid vaccine tomorrow. Objective Treatments: Physical Therapy Exercise Log - 01/21/21 3473 OTHER Precautions/Contraindications Asthma, COPD, Depression, DM, GERD, HTN, Migraines, RLS, AYO, Varicose veins, Cervical fusion C5-7, Lumbar fusion L2-S1 Notes 206-245 Vitals Pt goes by Matthew Rose Therapeutic Exercise ([id number]) Intervention Nustep B UE/LE L5 8 min Parameters Standing HS stretches @ steps 3x ea 30 hold Intervention Long walk outdoors including walking through grass, up/down incline, up/down curbs. Ptfatigued and had L hip pain. Pt unsteady more when she is turning her head. Parameters Foam: alt step tap on 12 step 2 min. Pt fatigued. 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 Independent with home exercise program. 12/25/20 Met. Pt is doing her HEP 5x/wk. 2. Improve trunk strength for pt to be able to tolerate 30 minutes of exercise without increased lumbar pain or excess fatigue to improve mobility tolerance. 12/25/20 Pt has been tolerating exercises during Rx session, but she hurts the next day. She has been doing 45 minutes of exercise in treatment sessions. 3. Pt to demonstrate the ability to amb 500 ft with minimal increased pain to improve ability to amb in the community. 12/25/20 Today pt was able to amb 380 ft in hallway with some unsteadiness and with fatigue when finished. 4. Pt to report being able to be on her feet standing stationary > 5 min without increased pain to improve activity tolerance. 12/25/20 Pt immediately starts having problems when standing stationary. Modified Oswestry Goal = 40%, IE 58% Pt's Goal: To lower my pain as much as possible. Pt states that she does not think that physical therapy helps, but she has to go through it before she can have surgery. Initial Evaluation 11/25/2020 HEP: 11/25/20 Abdominal bracing 10 sec hold x10, Bug St I 15x ea, Standing B hip abd, ext, flex 15x ea. 12/08/19 Seated hip add with ball between her knees, standing heel/toe raises, and standing marching \ 12/18/20 tband pull aparts, diagonals, rows and extensions (green band) Patient Education: Continue with exercises at home. Assessment: Today pt amb outdoors and was slightly unsteady, but she was able to do this. She had some difficulty on curbs as well. Pt was fatigued when finished, but she is tolerating exercises wellwithout many c/o increased pain. Skilled Intervention demonstrated by modifications of treatment per exercise log including assessment of patient's response and safety interventions per exercise log. Plan for Next Visit: Continue to work on improving overall endurance and balance. May walk outdoorsagain weather permitting. Orin Esposito PT STATE LICENSE, PT.[id number] documented in this encounter* Dylan Savage MD - 12/05/2018 1:32 PM EST EMG CONSULTATION REFERRING PHYSICIAN Harmony Mejias DPM HISTORY OF PRESENT ILLNESS The patient is a 63-year-old female who has been having pain, numbing, and tingling sensation in the bilateral lower extremities, legs and feet. She is known with a history of back surgeries x3, withthe last one 4 years ago. She described her symptoms as sharp, stabbing, numbing, that is continuously there. Pain medication helps to relieve it some. Movement and activity make it worse. Pain levelvaries. PHYSICAL EXAMINATION General: A 63-year-old female, awake, alert, oriented, not in any distress. Extremities: Deep tendon reflexes are 2/4 bilateral knees, decreased at the ankles. Sensation is impaired distal to light touch. Muscle power ranging 4/5 bilateral lower extremities, with no weaknessin the bilateral flexors. The patient has a functional range of motion of her peripheral joints. Her sitting root test, as well as straight-leg raise testing, was unremarkable. NERVE CONDUCTION STUDY OF THE RIGHT LOWER EXTREMITY The right superficial peroneal antidromic sensory pickup and the anterolateral malleolus was unobtainable. The right sural antidromic sensory pickup at the right lateral malleolus peak latency 4.3 m/sec, amplitude of 5 mV conduction velocity 33 m/sec of the right peroneal motor to the EDB muscle, onset latency 4.1 msec, amplitude of 5 mV, conduction velocity 38 m/sec below the fibular head and 44 m/sec across the right fibular head. The right tibial muscle pickup abductor hallucis brevis onset latency 5.7 m/sec, amplitude of 5 mV,conduction velocity 39 m/sec. NERVE CONDUCTION STUDY OF THE LEFT LOWER EXTREMITY The left superficial peroneal antidromic sensory pickup and the anterolateral malleolus was unobtainable. The left sural antidromic sensory pickup at the lateral malleolus was unobtainable. The left peroneal motor to the EDB muscles, onset latency 4.1 m/sec, amplitude of 4 mV, conduction velocity 39 m/sec below the fibular head, and 41 m/sec across the left fibular head. The left tibial muscle pickup abductor hallucis brevis onset latency 5.2 m/sec, amplitude of 7 mV, conduction velocity 40 m/sec. EMG STUDY OF THE RIGHT LOWER EXTREMITY The following muscles were sampled: The right vastus medialis, peroneus longus, medial gastrocnemius, tibialis anterior, biceps femoris short head, gluteus medius, and all of the muscles sampled in the right lower extremity were normal insertional activity with runs of fibs positive sharp waves with motor unit action potential of larger amplitude and wider duration was mildly decreased recruitment specifically in the peripheral musculature. EMG STUDY OF THE LEFT LOWER EXTREMITY The following muscles were sampled: The left vastus medialis, peroneus longus, medial gastrocnemius, tibialis anterior, biceps femoris short head, gluteus medius, and all of the sampled in the left lower extremity were normal spontaneous activity, runs of fibs and positive sharp waves with a motor unit action potential of larger amplitude and wider duration with mildly decreased recruitment specifically in the peripheral musculature. 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 The patient might benefit from optimization of her vitamin intake, as well as theuse of neuromodulator as her condition applies. Dr. Mejias, as always, thank you very much for giving me the opportunity to participate in the healthcare of your patient. If you have questions, call me at [phone]. Sincerely yours, [facility] [address] [place] [id number] Name: Matthew Perez : 1955 Date: 12/05/18 Provider: Dylan Savage MD No chief complaint on file. Dictation of HPI, ROS, PE, and Assessment and Plan: I have reviewed with Matthew Perez all histories, medications, allergies, and relevant problem list diagnosis. SNOMED CT(R) 1. Burning pain BURNING PAIN Ambulatory referral to Physical Medicine Rehab No orders of the defined types were placed in this encounter. No follow-ups on file. in this encounter* Dylon Abdul, FIRE CAPTAIN MARINE - 02/11/2021 1:15 PM EDT [facility] TREAT[facility] NOTE Today's Date 02/11/2021 Patient Name: Matthew Perez Date of : 1955 Current Visit #: 09/11 Authorized Visits: 99 Case Name: Lumbar - PT History: Pre-Treatment Pain Scale: 2 Symptoms: gradually improved Functional Diagnosis: 1. Lumbar pain Clinical Information: Subjective: pt reports pain 2/10 in her back at the start of therapy, but pain 7/10 in her legs. Ptreports she had to pay someone to clean her house because she was not able. Pt lacking overall endurance, and strength. ...Today's Physical/Functional Problems being addressed: See above. Risks and benefits of treatment discussed with patient/post acute care nurse: Yes Objective ..Tx Start Time: 114 Tx End Time: 154 Treatments: Physical Therapy Exercise Log - 02/11/21 1317 OTHER Precautions/Contraindications Asthma, COPD, Depression, DM, GERD, HTN, Migraines, RLS, AYO, Varicose veins, Cervical fusion C5-7, Lumbar fusion L2-S1 Vitals Pt goes by Matthew Rose Therapeutic Exercise ([id number]) Intervention Nustep B UE/LE L5 8 min Parameters Standing HS stretches @ steps 3x ea 30 hold Intervention Foam: heel-toe raises 2 min Parameters Standing on blue foam hip abd, ext, flex 15 x ea Intervention Standing on blue foam t-band pull apart, diagonals with Right arms going down [place] 15 x Parameters Step up onto blue foam fwd 15 x ea LE Intervention UBE backwards working on posture L2 4 min Parameters -- PT Treatment Times Therex Total Time 40 114-154 Direct Treatment Time 40 Goals: Physical Therapy Ortho Goals: [facility] goals to be met 6 weeks from 11/25/2020 1. Independent with home exercise program. 12/25/20 Met. Pt is doing her HEP 5x/wk. 2. Improve trunk strength for pt to be able to tolerate 30 minutes of exercise without increased lumbar pain or excess fatigue to improve mobility tolerance. 12/25/20 Pt has been tolerating exercises during Rx session, but she hurts the next day. She has been doing 45 minutes of exercise in treatment sessions. 3. Pt to demonstrate the ability to amb 500 ft with minimal increased pain to improve ability to amb in the community. 12/25/20 Today pt was able to amb 380 ft in hallway with some unsteadiness and with fatigue when finished. 4. Pt to report being able to be on her feet standing stationary > 5 min without increased pain to improve activity tolerance. 12/25/20 Pt immediately starts having problems when standing stationary. Modified Oswestry Goal = 40%, IE 58% Pt's Goal: To lower my pain as much as possible. Pt states that she does not think that physical therapy helps, but she has to go through it before she can have surgery. Initial Evaluation 11/25/2020 HEP: 11/25/20 Abdominal bracing 10 sec hold x10, Bug St I 15x ea, Standing B hip abd, ext, flex 15x ea. 12/08/19 Seated hip add with ball between her knees, standing heel/toe raises, and standing marching \ 12/18/20 tband pull aparts, diagonals, rows and extensions (green band) Patient Education: Written HEP with patient demonstrated understanding and verbalized understanding. Post-Treatment Pain Scale: 5 in her low back, and 8/10 in her legs. Assessment: Patient had an expected response to treatment.pt completed exercise above to work on core strength, and posture. p completed exercise with v/c for form, and posture. Adjusted exercise this visit due to pt having increase pain in her legs, Attempt to ambulate outside on uneven ground next visit. Skilled Intervention demonstrated by modifications of treatment per exercise log including assessment of patient's response and safety interventions per exercise log. Progress towards goals as expected. Plan for Next Visit: Treatment Visit with focus on LE strength, and posture. pt has 1 visit left onthis script. Dylon Abdul PTA STATE LICENSE, FIRE CAPTAIN MARINE.[id number] documented in this encounter* Kalia Ordaz - 02/11/2021 3:18 PM EDT Review of Systems Constitutional: Positive for activity change. HENT: Positive for drooling and trouble swallowing. Respiratory: Positive for shortness of breath and wheezing. Cardiovascular: Positive for chest pain and leg swelling. Musculoskeletal: Positive for back pain and joint swelling. Neurological: Positive for dizziness, speech difficulty, weakness, numbness and headaches. Psychiatric/Behavioral: Positive for sleep disturbance. All other systems reviewed and are negative. * Jose Fraga MD - 02/11/2021 2:47 PM EDT Matthew Merida Ana 1955 Impression/Plan: Problem List Items Addressed This Visit Musculoskeletal and Integument Protrusion of cervical intervertebral disc C4-5 with stenosis - Primary Other Visit Diagnoses Neck pain Her clinical findings may represent myelopathy, although the combination of history and exam is farfrom clear-cut. Nevertheless with her definite protrusion with cord deformity and equivocal cord signal change, I recommended that we proceed with surgery which I believe will reduce her chance for further progressive impairment with some chance for clinical improvement. Management options were discussed. Non-operative alternatives were reviewed and discussed. The nature of surgical options available were described. The elective nature of the procedures, the full range of risks and potential complications, and the limited success probabilities with surgery were discussed, and all questions were answered. Despite these factors, she requests that we proceed with surgery. We will plan to proceed with ACDF at C4-5 with plate and allograft. Return after surgery. Clinical Findings: Matthew Perez is a 65 y.o. female person who is here for New patient (New patient is having neck problems and wants to discuss surgery and is having back pain which radiates down her legs ) She notes longstanding problem of neck and bilateral upper and lower extremity radicular pain and numbness. This has been present for several years. She notes numbness radiating down her left greaterthan right upper extremity and she notes a sense of weakness through her left upper extremity. She notes stiffness and shaking of her lower extremities with attempted ambulation and she notes difficulty with her walking balance. She is status post 2 prior anterior cervical fusions and lower lumbar surgeries with persistent symptoms after her last lumbar fusion. Assessment - 02/11/21 1525 Pain Assessment Pain Assessment 0-10 0-10 DVPRS 8/10 Pain Location Back Pain Orientation Lower Pain Radiating Towards legs Pain Descriptors Numbness;Sharp;Aching;Burning Pain Frequency Continuous Pain Onset On-going Aggravating Factors Walking;Standing;Bending Result of Injury No Work-Related Injury No Past Medical History: Diagnosis Date Arthritis osteo Asthma 08/23/2014 Benign hypertension 04/01/2015 Cataract 08/23/2014 immature Chronic pain disorder rt foot, hx 4 foot fractures; calves of legs cause pain,muscle spasms Congestive heart failure (HCC) 10/13/2015 patient denies COPD (chronic obstructive pulmonary disease) (HCC) Depression Diarrhea Fibromyalgia, primary GERD (gastroesophageal reflux disease) patient denies History of cardiac cath 2005 normal reported by patient History of echocardiogram History of stress test 09/08/2015 Hypertension controlled Migraines Obesity Pneumonia x2 , had 2 pneumonia shots Restless legs syndrome Shoulder joint pain rt plan Arthroscopy rotator cuff repair Sleep apnea, obstructive unable to use cpap; recently received mouthpiece but not using Varicose veins of both lower extremities Patient Active Problem List Diagnosis AYO (obstructive sleep apnea) Asthma Balance disorder Benign hypertension Protrusion of cervical intervertebral disc C4-5 with stenosis Brachial neuritis Lumbar pain Depression Pre-diabetes Dysphagia Cataract Migraine Bronchogenic cancer (HCC) Restless legs syndrome Tendinopathy of rotator cuff Varicose vein History of cardiomyopathy Iron deficiency Obesity (BMI 30.0-34.9) Difficulty walking Encounter for long-term use of opiate analgesic Varicose veins of lower extremities with complications Leg pain Postlaminectomy syndrome of lumbar region Lumbar stenosis with neurogenic claudication Spinal stenosis, lumbar DDD (degenerative disc disease), lumbar Hip osteoarthritis Acute blood loss as cause of postoperative anemia S/P total hip arthroplasty Osteoarthritis of multiple joints Vertigo History of falling Rectocele She has a current medication list which includes the following prescription(s): albuterol, amlodipine, anoro ellipta, budesonide-formoterol, celecoxib, clonazepam, furosemide, hydrochlorothiazide, ibuprofen, ibuprofen, lisinopril, meclizine, mirtazapine, montelukast, narcan, omeprazole, oxycodone-ac etaminophen, oxycontin, prednisone, promethazine, ranitidine, ropinirole, sertraline, sumatriptan, tiotropium, tizanidine, and trazodone. Allergies: Ibuprofen, Lyrica [pregabalin], Duloxetine, Nsaids (non-steroidal anti- inflammatory drug), and Metformin Past Surgical History: Procedure Laterality Date DEMETRI SHOULD SAD, SLAP, RCR, RESECT DISTAL CLAVICLE, BICEPS TENODESIS Right 11/04/2015 Procedure: DEMETRI RT SHOULD GREGORY, RCR, & BICEPS POSS OPEN; Surgeon: Jack Dave MD; Location: [facility] Main OR; Service: ARTHROPLASTY HIP TOTAL Right 02/27/2018 Procedure: RIGHT TOTAL HIP ARTHROPLASTY; Surgeon: Gabo Sears MD; Location: [facility] Main OR; Service: Orthopedic BACK SURGERY 2008,2002 x 2 Low back, BLADDER SUSPENSION bladder tie-up BRONCHOSCOPY CARDIAC CATHETERIZATION 08/2006 [facility] COLONOSCOPY FOOT SURGERY Right foot hammer, toes; 3 surg FOOT SURGERY Right hammer toes, fractuered foot;3 surg HYSTERECTOMY CARLOS MANUEL BSO Bladder suspension JOINT REPLACEMENT Right TKR KNEE SURGERY Left 2013 arthroscopic LAMINECTOMY DECOMP LUMBAR W/FUSION 4 OR MORE LVL N/A 11/08/2017 Procedure: HARDWARE REMOVAL L4-S1, DECOMPRESSION/FUSION L2-L4, PLIF, REINSTRUMENT L2-S1; Surgeon: Alejo Hummel MD; Location: [facility] Main OR; Service: Orthopedic LUNG SURGERY Right lower lobe; biopsy taken and nodule was benign NECK SURGERY 2008,2013 x 2 C5-6-7 anterior, 2nd included T1- C5-6-7 ROTATOR CUFF REPAIR Left TONSILLECTOMY VEIN SURGERY 2014 vein taken out in lower Left leg in [place] Dr. Jesica JAVEDDOM TOOTH EXTRACTION Social Hx: , she reports that she has never smoked. She has never used smokeless tobacco. Patient reports current alcohol use. Patient reports no history of drug use. Family Hx: family history includes Brain cancer in her mother; Breast cancer in her mother; Diabetes in her father, sister, and another family member; Heart disease in her father; Hypertension in herfather, sister, and another family member; Liver cancer in her mother; Lung cancer in her mother; No Known Problems in her brother. Review of Systems: Her review of systems as documented in her MA note is reviewed. Physical Exam VS: Height: 5' 5 , Weight: 92.1 kg (203 lb) , Body mass index is 33.78 kg/m ., BP: (!) 170/92 Body habitus: obese Alert, oriented x 3 Affect: normal affect Gait/Station: Slightly broad-based gait Head/neck exam reveals no deformity Thoraco-lumbar spine exam reveals no deformity. Neck and Thoraco-lumbar Range of Motion and Stability: restricted cervical axial rotation, restricted cervical flexion and restricted cervical extension. Pain with ROM: Minimal pain with cervical range of motion. No Spurling's produced.. Neck and Thoraco-lumbar muscle mass, tone and strength and skin: appears wnl except:, a well healedmidline lumbar scar, And 2 well-healed right anterior cervical scars. Upper extremity muscle strength: 4/5 intrinsic weakness on the left. Mild left finger flexion weakness graded as 4+/5. Mild left shoulder abduction weakness graded as 4/5. However her elbow extensionis very strong and wrist extension strong. Upper extremity reflexes: David's absent. Upper extremity reflexes diffusely decreased. Reflexes:Clonus absent. Her right knee jerk is within normal limits to diminished. Left is hyperactive.. Ankle jerks are diminished. Upper extremity Sensation: normal to light touch Balance and coordination: Romberg test equivocal. Gait mildly broad-based. Imaging: Cervical MRI 07/24/2020 Review of the images shows that she is status post a previous C5-T1 anterior cervical fusion with aplate and allograft present over the lower cervical segments. I do not see a plate on the anterior C5 level. She shows a prominent degenerative disc protrusion with associated stenosis at C4-5 with about equally severe impingement on the cord from anterior as posterior. The report: IMPRESSION: Discogenic disease, ligamentum flavum hypertrophy at C4-5 resulting in severe central spinal canal stenosis with an AP diameter of the canal of 4 mm. There is associated cord compression and probablemyelomalacia. Jose Fraga MD documented in this encounter Reason for Referral Status Reason Specialty Diagnoses / Procedures Referred By Contact Referred To Contact Pending Review Radiology Diagnoses Lumbosacral radiculopathy Procedures MR Lumbar Spine Without Contrast MR Lumbar Spine With And Without Contrast Trent Peguero MD [facility] [place] [address] Status Reason Specialty Diagnoses / Procedures Referred By Contact Referred To Contact Closed Radiology Diagnoses Dizziness and giddiness Procedures MR IAC With And Without Contrast Giovanni Hodges MD [address] [facility] [address] [place] [address] Status Reason Specialty Diagnoses / Procedures Referred By Contact Referred To Contact Authorized Specialty Services Required/Patie nt's Best Interest Spine Surgery Diagnoses Neck pain Harmony Gee MD [address] [place] [address] Jose Fraga MD [address] [place] [address] Status Reason Specialty Diagnoses / Procedures Referred By Contact Referred To Contact Authorized Rehabilitation Diagnoses Lumbar pain Jose Yu MD [address] [place] [address] [address] [phone] Status Reason Specialty Diagnoses / Procedures Referre d By Contact Referred To Contact Closed Radiology Diagnoses Spinal stenosis in cervical region Procedures MR Cervical Spine Without Contrast Harmony Gee MD [address] [place] [id number] Status Reason Specialty Diagnoses / Procedures Referred By Contact Referred To Contact Closed Specialty Services Required/Patie nt's Best Interest Physical Medicine and Rehabilitation Diagnoses Burning pain Harmony Mejias, DPChelsea [address] [place] [address] Dylan Savage MD [address] [place] [id number] Status Reason Specialty Diagnoses / Procedures Referred By Contact Referred To Contact Authorized Patient Preference Sleep Medicine Diagnoses AYO (obstructive sleep apnea) Dilip Mckeon MD [address] [place] [phone] [facility] Sleep Medicine [address] [place] [phone] Status Reason Specialty Diagnoses / Procedures Referred By Contact Referred To Contact Authorized Specialty Services Required/Patie nt's Best Interest Allergy and Immunology Diagnoses Shortness of breath Dilip Mckeon MD [address] [place] [address] Esequiel Melchor MD [address] [place] [address] Specialty Diagnoses / Procedures Referred By Contac t Referred To Contact Gastroenterology Diagnoses Irritable bowel syndrome, unspecified type Harmony Gee MD [address] [place] [address] Misa Jackson MD [address] [place] [address] Referral ID Status Reason Start Date Expiration Date Visits Requested Visits Authorized [id number] Authorized Specialty Services Required/Pat ient's Best Interest 06/15/2021 06/15/2022 1 1 Specialty Diagnoses / Procedures Referred By Contac t Referred To Contact Physical Medicine/Rehabilitati on Diagnoses DDD (degenerative disc disease), lumbar Arianna Ng, AIR CONDITION[employer]IT TESTER [address] [place] [address] Maynor Rossi MD [address] [place] [address] Referral ID Status Reason Start Date Expiration Date Visits Requested Visits Authorized [id number] Authorized Patient Preference 06/25/2021 06/25/2022 1 1 Specialty Diagnoses / Procedures Referred By Contac t Referred To Contact Rehabilitation Diagnoses DDD (degenerative disc disease), lumbar Arianna Ng, AIR CONDITIONING UNIT TESTER [address] [place] [address] Rehab Pt [facility] [address] [place] [address] Referral ID Status Reason Start Date Expiration Date V isits Requested Visits Authorized [id number] Authorized 09/16/2021 09/16/2022 1 1 Specialty Diagnoses / Procedures Referred By Contac t Referred To Contact Neurology Diagnoses Numbness of upper extremity Tiffany Ngily Maria Elena, [employer] CONDITION[employer]IT TESTER [address] [facility] [place] [address] Lili Freitas MD [address] [address] Referral ID Status Reason Start Date Expiration Date V isits Requested Visits Authorized [id number] Authorized 09/16/2021 09/16/2022 1 1 Specialty Diagnoses / Procedures Referred By Contact Referred To Contact Physical Medicine & Rehabilitation Diagnoses Cubital tunnel syndrome on left Raoul Lundy MD [address] [place] [address] [place] [address] Pop Mancuso MD [address] [place] [address] Referral ID Status Reason Start Date Expiration Date V isits Requested Visits Authorized [id number] New Request 06/10/2022 07/05/2023 1 1 Specialty Diagnoses / Procedures Referred By Contac t Referred To Contact Diagnoses Osteoarthritis of both sacroiliac joints Procedures US IMAGING FOR ORTHO Raoul Lundy MD [address] [place] [address] Referral ID Status Reason Start Date Expiration Date V isits Requested Visits Authorized [id number] New Request 06/24/2022 07/19/2023 1 1 Specialty Diagnoses / Procedures Referred By Contac t Referred To Contact Diagnoses Intermittent claudication Procedures VASC ANKLE BRACHIAL INDEX Raoul Lundy MD [address] [place] [address] Referral ID Status Reason Start Date Expiration Date V isits Requested Visits Authorized [id number] Auth Not Needed 07/27/2022 08/21/2023 1 1 Specialty Diagnoses / Procedures Referred By Contac t Referred To Contact Radiology Diagnoses Left shoulder pain, unspecified chronicity Procedures MR Shoulder Left Without Contrast Shayne Solis, DO [address] [facility] [place] [address] Referral ID Status Reason Start Date Expiration Date V isits Requested Visits Authorized [id number] New Request 11/24/2022 11/24/2023 1 1 Specialty Diagnoses / Procedures Referred By Contac t Referred To Contact Diagnoses Osteoarthritis of both sacroiliac joints Pain of both sacroiliac joints Procedures US IMAGING FOR ORTHO Raoul Lundy MD [address] [facility] [place] [address] Referral ID Status Reason Start Date Expiration Date V isits Requested Visits Authorized [id number] New Request 12/03/2022 12/28/2023 1 1 Specialty Diagnoses / Procedures Referred By Contac t Referred To Contact Orthopedic Surgery Diagnoses Pain of finger of right hand Pop Ovalle PA-C [address] [place] [address] [place] [address] [facility] [place] [address] [place] [address] Referral ID Status Reason Start Date Expiration Date V isits Requested Visits Authorized [id number] Authorized 01/23/2023 01/23/2024 1 1 Referral ID Status Reason Start Date Expiration Date V isits Requested Visits Authorized [id number] New Request 02/04/2023 02/29/2024 1 1 Specialty Diagnoses / Procedures Referred By Contac t Referred To Contact [facility] Diagnoses Radiculopathy of lumbar region Procedures CONSULT TO [facility] OFFICE/OUTPATIENT NEW HIGH MDM 60-74 MINUTES Zafar Faith DO [facility] [address] [place] [address] Referral ID Status Reason Start Date Expiration Date Visits Requested Visits Authorized [id number] Authorized PCP Requested Referral 04/22/2023 04/21/2024 1 1 Specialty Diagnoses / Procedures Referred By Contac t Referred To Contact [facility] Diagnoses Radiculopathy of lumbar region Primary osteoarthritis of left hip Procedures CONSULT TO PHYSICAL THERAPY PHYSICAL THERAPY EVALUATION HIGH COMPLEX 45 MINS Zafar Faith DO [facility] [address] [place] [address] [facility] [address] [place] [address] Referral ID Status Reason Start Date Expiration Date Visits Requested Visits Authorized [id number] Pending Review Auto-Generat ed Referral 04/22/2023 04/21/2024 1 1 Specialty Diagnoses / Procedures Referred By Contac t Referred To Contact MR IMAGING Diagnoses Radiculopathy of lumbar region Procedures MRI LUMBAR SPINE WO/W IVCON MRI SPINAL CANAL LUMBAR W/O & W/CONTR Zafar Cortez DO [facility] [address] [place] [address] Mr Imaging Referral ID Status Reason Start Date Expiration Date Visits Requested Visits Authorized [id number] Authorized Auto-Generat ed Referral 04/22/2023 05/21/2024 1 1 Specialty Diagnoses / Procedures Referred By Contac t Referred To Contact Physical Therapy Diagnoses Radiculopathy, lumbar region Osteoarthritis of left hip, unspecified osteoarthritis type System, Provider Not In Rehab Pt [facility] [address] [place] [address] Referral ID Status Reason Start Date Expiration Date V isits Requested Visits Authorized [id number] Authorized 05/02/2023 05/01/2024 1 1 Specialty Diagnoses / Procedures Referred By Contac t Referred To Contact Cardiology Diagnoses Essential hypertension, malignant Procedures Echocardiogram complete Melodie Allen MD [address] [place] [address] Referral ID Status Reason Start Date Expiration Date V isits Requested Visits Authorized [id number] Pending Review 06/28/2023 06/27/2024 1 1 Specialty Diagnoses / Procedures Referred By Contac t Referred To Contact Radiology Diagnoses PE (pulmonary thromboembolism) (HCC) Erika Carmona, AIR CONDITIONING UNIT TESTER [address] [place] [address] Referral ID Status Reason Start Date Expiration Date Visits Re quested Visits Authorized [id number] Closed 09/27/2023 09/26/2024 1 1 Specialty Diagnoses / Procedures Referred By Contac t Referred To Contact Diagnoses Intractable pain Acute left-sided low back pain with left-sided sciatica Rudolph Gómez MD [address] [place] [address] Referral ID Status Reason Start Date Expiration Date V isits Requested Visits Authorized [id number] Authorized 07/29/2023 10/27/2024 1 1 Specialty Diagnoses / Procedures Referred By Contac t Referred To Contact Home Health Services Diagnoses Fall Contusion of rib on right side, initial encounter Intractable pain Protrusion of cervical intervertebral disc Ambulatory dysfunction Back pain at L4-L5 level S/P lumbar fusion Pseudoclaudication syndrome Displacement of thoracic intervertebral disc without myelopathy Thoracic disc herniation Urge urinary incontinence Status post cervical spinal fusion Diastolic dysfunction Displacement of cervical intervertebral disc without myelopathy Rectocele History of falling Vertigo Acute blood loss as cause of postoperative anemia DDD (degenerative disc disease), lumbar Lumbar stenosis with neurogenic claudication Status post lumbar spinal fusion Left hip pain Encounter for long-term use of opiate analgesic Difficulty walking Iron deficiency History of cardiomyopathy Restless legs syndrome Pre-diabetes Lumbar pain Brachial neuritis Balance disorder AYO (obstructive sleep apnea) Rudolph Gómez MD [address] [place] [address] Referral ID Status Reason Start Date Expiration Date Visits Requested Visits Authorized [id number] Authorized Patient Preference 3 10/27/2024 1 1 Specialty Diagnoses / Procedures Referred By Contac t Referred To Contact Rehabilitation Diagnoses Fall Protrusion of cervical intervertebral disc Rudolph Gómez MD [address] [place] [address] Referral ID Status Reason Start Date Expiration Date Visits Requested Visits Authorized [id number] Authorized Patient Preference 3 10/26/2024 1 1 Specialty Diagnoses / Procedures Referred By Contact Referred To Contact Pain Management / Pain Medicine Diagnoses Protrusion of cervical intervertebral disc Rudolph Gómez MD [address] [place] [address] Maru Sylvester MD [address] [place] [address] Referral ID Status Reason Start Date Expiration Date Visits Requested Visits Authorized [id number] Authorized Patient Preference 3 10/25/2024 1 1 Specialty Diagnoses / Procedures Referred By Contac t Referred To Contact Neurology Diagnoses Tinnitus, unspecified laterality Chronic migraine without aura without status migrainosus, not intractable Restless legs Neuropathy System, [facility] [address] [place] [address] Referral ID Status Reason Start Date Expiration Date V isits Requested Visits Authorized [id number] Authorized 12/15/2023 12/14/2024 1 1 Specialty Diagnoses / Procedures Referred By Contac t Referred To Contact Rehabilitation Diagnoses Status post lumbar spinal fusion Jose Fraga MD [address] [place] [address] [address] [address] Referral ID Status Reason Start Date Expiration Date V isits Requested Visits Authorized [id number] Authorized 01/04/2024 01/03/2025 1 1 Specialty Diagnoses / Procedures Referred By Contac t Referred To Contact Physical Therapy Diagnoses Abnormality of gait Debility Pleuritic chest pain Harmony Gee MD [address] [place] [address] Rehab Pt [address] [address] Referral ID Status Reason Start Date Expiration Date V isits Requested Visits Authorized [id number] Pending Review 11/29/2023 11/28/2024 1 1 Hospital Course * Cely Augirre CNP - 06/10/2019 12:09 PM EDT HOSPITALIST DISCHARGE SUMMARY Patient: Matthew Perez Account: [id number] Admitted: 06/08/2019 Discharge Date/Time: 06/10/2019 Clinical Summary FINAL DIAGNOSIS: Matthew Perez is a 64 y.o. female patient of Harmony Gee MD with history of AYO, RLS, Migraines, HTN, COPD, GERD, Fibromyalgia, Asthma, and chronic pain disorder presented to [facility] on 06/08/19 with complaints of room spinning. Impression and Plan: 1. Vertigo - stating room spinning, associated with nausea, - No prior hx of vertigo - CT brain = no acute - MRI brain - Normal MRI of the brain - c/s neuro - Fall Precautions - Meclizine - PT consult - R inner ear vestibular hypofunction due to acute peripheral vertigo, possibly causedby vestibular neuritis. The vertigo follows Keith's Law of Nystagmus. The pt currently has spontaneous nystagmus with primary gaze that is L beating and torsional. The nystagmus becomes more severe with gaze toward L. The pt also complains of tinnitus in both ears. She denies hearing loss. Out patient referral to vestibular clinic. This AM - dizziness continues. Left sided PAGAN that radiates around left temporal left neck - Start prednisone and taper 2. Recent H/O Endocarditis - states was treated two months ago for endocarditis in [place] while on vacation - Echocardiogram - reviewed REASON FOR HOSPITALIZATION AND ADMITTING DIAGNOSIS: Dizziness; Nausea; and Emesis Vertigo [R42] Non-intractable vomiting with nausea, unspecified vomiting type [R11.2] HOSPITAL COURSE: As above. CONDITION AT DISCHARGE: Stable PACU Vitals 06/10/19 1150 BP: Pulse: Resp: (!) 20 Temp: SpO2: Discharge Medications Medication List ASK your doctor about these medications albuterol 2.5 mg /3 mL (0.083 %) nebulizer solution Commonly known as: PROVENTIL budesonide-formoterol 160-4.5 mcg/actuation inhaler Commonly known as: SYMBICORT clonazePAM 1 MG tablet Commonly known as: KLONOPIN furosemide 20 MG tablet Commonly known as: LASIX hydroCHLOROthiazide 25 MG tablet Commonly known as: HYDRODIURIL HYDROmorphone 16 mg Tb24 Take 1 (one) tablet (16 mg total) by mouth once daily (Days supply per fill: 7) M96.1 . * ibuprofen 200 MG tablet Commonly known as: ADVIL,MOTRIN Ask about: Which instructions should I use? * ibuprofen 800 MG tablet Commonly known as: ADVIL,MOTRIN Take 1 (one) tablet (800 mg total) by mouth 2 (two) times a day. Ask about: Which instructions should I use? lisinopril 20 MG tablet Commonly known as: PRINIVIL,ZESTRIL morphine 30 MG 12 hr tablet Commonly known as: MS CONTIN Take 1 (one) tablet (30 mg total) by mouth 2 (two) times a day (Days supply per fill: 30) M15.9 Start: 01/27/19. NARCAN 4 mg/actuation [address] Generic drug: naloxone Administer 1 spray into one nostril for known or suspected opioid overdose. If patient worsens or does not respond, may repeat in 2-3 minutes. . omeprazole 40 MG capsule Commonly known as: PRILOSEC Take 1 (one) capsule (40 mg total) by mouth daily. oxyCODONE 5 MG immediate release tablet Commonly known as: ROXICODONE 1-2 tablets every 4-6 hours as needed for pain. oxyCODONE-acetaminophen 10-325 mg per tablet Commonly known as: PERCOCET Take 2 (two) tablets by mouth 3 (three) times a day (Days supply per fill: 30) M51.36 Start: 07/04/19. Start taking on: 07/04/2019 promethazine 25 MG tablet Commonly known as: PHENERGAN ranitidine 300 MG tablet Commonly known as: ZANTAC Take 1 (one) tablet (300 mg total) by mouth nightly. rOPINIRole 2 MG tablet Commonly known as: REQUIP sertraline 100 MG tablet Commonly known as: ZOLOFT Ask about: Which instructions should I use? SINGULAIR 10 mg tablet Generic drug: montelukast Ask about: Which instructions should I use? SUMAtriptan 100 MG tablet Commonly known as: IMITREX Take 1 (one) tablet (100 mg total) by mouth as needed for migraine. tiotropium 18 mcg inhalation capsule Commonly known as: SPIRIVA Ask about: Which instructions should I use? traZODone 50 MG tablet Commonly known as: DESYREL * This list has 2 medication(s) that are the same as other medications prescribed for you. Read thedirections carefully, and ask your doctor or other care provider to review them with you. Physician(s) Family: Harmony Gee MD, , Address: [address] [place] [address] Follow Up: Harmony Gee MD [address] [place], [place] [id number] Follow up Hospital follow up Patient instructions, including activity, were given to the patient/family at discharge. Please seethe After Visit Summary in the medical record for details. Time spent on discharge: > 30 minutes Completed by: Cely Aguirre on 06/10/19, 12:09 PM Associated attestation - Marcelina Husain MD - 06/10/2019 12:45 PM EDT Vestibular neuronitis documented in this encounter Chief Complaint and Reason for Visit Chief Complaint L KNEE OA Chief Complaint Admit Date XRAY April 25, 2025 12:2 4pm Additional Source Comments Gabo Sears MD - 02/27/2018 9:30 AM Ankit Russell MD - 02/17/2018 9:22 AM Ankit Russell MD - 02/17/2018 9:22 AM Miguel Doyle II, MD - 11/03/2017 4:01 PM EST H&P Notes (unrecognized sect ion and content) INTERVAL HISTORY AND PHYSICAL Patient Name: Matthew Perez Admit Date: [id number] MR #: [id number] : 1955 The H&P has been reviewed and the patient has been examined. I concur with the findings of the H&P. There are no significant changes. It is appropriate to proceed with the planned procedure. Gabo Sears MD 02/27/2018 9:30 AM Formatting of this note may be different from the original. Assessment and Plan 1. Preop testing Preoperative medical risk stratification indicates patient is at acceptable risk for elective major surgery pending Basic Metabolic Panel, CBC, PT/INR, Urinalysis, Urine Aerobic Culture, APTT. 2. Primary osteoarthritis of right hip Plan surgical correction. Dr. Sears at [facility]. Patient provided instructions on preoperative management of medications including withholding Aspirin, NSAIDS, and specific Herbal Supplements 7 days before surgery. Prophylaxis for prevention of deep vein thrombosis per primary surgical team. Please follow the 2012 ACCP guidelines. 3. Pre-operative cardiovascular examination This patient has no active cardiac conditions and would be considered at a low risk for a major adverse cardiac event(MACE) based on a revised cardiac risk index score of 0, in addition is asymptomatic with greater than 4 METS of functional capacity and therefore is at acceptable cardiac risk for elective surgery based on 2014 ACC/AHA guidelines. 4. Essential hypertension with goal blood pressure less than 130/80 Well controlled and optimized for surgery on home regimen, lisinopril. Will need to check perioperative BP's. The last BP was BP: (!) 167/107. Will use the lisinopril the AM of surgery due to her significant elevation in the BP today. 5. Chronic obstructive pulmonary disease, unspecified COPD type (HCC) Well optimized for surgery on Symbicort and as needed albuterol. Will use the AM of surgery. This condition will require close post operative monitoring in recovery. 6. Depression, unspecified depression type Well controlled and optimized for surgery on home medications. Continue cymbalta pre and post-op. 7. Anxiety On klonopin at HS which is also for RLS. 8. RLS (restless legs syndrome) Managed well on klonopin and requip at HS. Continue pre and post-op. 9. AYO (obstructive sleep apnea) No CPAP. Uses a mouthpiece. This condition will require close post operative monitoring in recovery. 10. Obesity (BMI 30-39.9) BMI is 31.64. She will work on weight loss with her PCP after surgery. AYO as above. This condition will require close post operative monitoring in recovery. Chief Complaint Patient presents with Pre-operative Medical Risk Stratification History of Present Illness Matthew Perez is a 62 y.o. female who presents for preoperative medical risk stratification consult at the request of Gabo Sears MD prior to RIGHT TOTAL HIP ARTHROPLASTY [facility] Main OR 02/27/18. Patient reports she has DJD and had right knee replaced 2015. Then back surgery 10/2017. Reports right hip pain for about a year getting worse after back surgery. Rates hip pain 10/10 Using walker since back surgery in October. The symptoms have failed to respond to conservative measures. She has done well with anesthesia in the past. Her medical conditions seem stable. She has hypertension and she did not take her BP medication today. She had a stressful morning as well. Her last few BP's in [facility] are high normal and she has chronic tachycardia. Please see below regarding status of active medical conditions and assessment and plan regarding details of preoperative medical risk stratification. 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 later had negative bx for lung cancer Cataract 08/23/2014 immature Chronic pain disorder rt foot, hx 4 foot fractures; calves of legs cause pain,muscle spasms Congestive heart failure (HCC) 10/13/2015 patient denies COPD (chronic obstructive pulmonary disease) ([facility]) Depression Diarrhea Fibromyalgia, primary GERD (gastroesophageal reflux disease) patient denies History of cardiac cath 2005 normal reported by patient History of echocardiogram History of stress test 09/08/2015 Hypertension controlled Migraines Obesity Pneumonia x2 , had 2 pneumonia shots Restless legs syndrome Shoulder joint pain rt plan Arthroscopy rotator cuff repair Sleep apnea, obstructive unable to use cpap; recently received mouthpiece Varicose veins of both lower extremities Past Medical History Pertinent Negatives: Diagnosis Date Noted Bleeding disorder (HCC) 02/17/2018 Complication of anesthesia 10/29/2015 16 surgeries since 2004,depressed fewdays after surgery Coronary artery disease 11/03/2017 Deep vein thrombosis (HCC) 11/03/2017 Diabetes mellitus type I (HCC) 11/03/2017 Diabetes mellitus, type 2 (HCC) 11/03/2017 History of blood transfusion 11/03/2017 Hyperlipidemia 11/03/2017 Myocardial infarction (HCC) 11/03/2017 Nephrolithiasis 11/03/2017 No blood products 11/03/2017 PONV (postoperative nausea and vomiting) 11/03/2017 Pulmonary embolism (HCC) 11/03/2017 Rheumatoid arthritis (HCC) 10/28/2017 Past Surgical History: Procedure Laterality Date ARDEBORAY SHOULD SAD, SLAP, RCR, RESECT DISTAL CLAVICLE, BICEPS TENODESIS Right 11/04/2015 Procedure: AR'SCOPY RT SHOULD GREGORY, RCR, & BICEPS POSS OPEN; Surgeon: Jack Dave MD; Location: [facility] Main OR; Service: BACK SURGERY 2008,2002 x 2 Low back, BLADDER SUSPENSION bladder tie-up BRONCHOSCOPY CARDIAC CATHETERIZATION 08/2006 [facility] COLONOSCOPY FOOT SURGERY Right foot hammer, toes; 3 surg FOOT SURGERY Right hammer toes, fractuered foot;3 surg HYSTERECTOMY CARLOS MANUEL BSO Bladder suspension JOINT REPLACEMENT Right TKR KNEE SURGERY Left 2014 arthroscopic LAMINECTOMY DECOMP LUMBAR W/FUSION 4 OR MORE LVL N/A 11/08/2017 Procedure: HARDWARE REMOVAL L4-S1, DECOMPRESSION/FUSION L2-L4, PLIF, REINSTRUMENT L2-S1; Surgeon: Alejo Hummel MD; Location: [facility] Main OR; Service: Orthopedic LUNG SURGERY Right lower lobe; biopsy taken and nodule was benign NECK SURGERY 2008,2013 x 2 C5-6-7 anterior, 2nd included T1- C5-6-7 ROTATOR CUFF REPAIR Left TONSILLECTOMY VEIN SURGERY 2014 vein taken out in lower Left leg in [place] Dr. Jesica SANCHES TOOTH EXTRACTION Social History Substance Use Topics Smoking status: Never Smoker Smokeless tobacco: Never Used Alcohol use 0.0 oz/week Comment: sometimes 10 a year; rare Family History Problem Relation Age of Onset Hypertension Father Heart disease Father Diabetes Father Breast cancer Mother ; cancer went to brain, liver and lungs Brain cancer Mother Liver cancer Mother Lung cancer Mother Hypertension Sister Diabetes Sister Hypertension Other siblings Diabetes Other siblings No Known Problems Brother Surgical complications Neg Hx Anesthesia problems Neg Hx Clotting disorder Neg Hx Deep vein thrombosis Neg Hx Pulmonary embolism Neg Hx @ Prior to Admission medications Medication Sig Taking? Dose Freq albuterol (PROVENTIL HFA;VENTOLIN HFA) 90 mcg/actuation inhaler Inhale 2 puffs as needed for wheezing . Yes 2 puffs, Inhalation, As needed albuterol (PROVENTIL) 2.5 mg /3 mL (0.083 %) nebulizer solution Take 2.5 mg by nebulization daily as needed . Yes 2.5 mg, Nebulization, Daily PRN budesonide-formoterol (SYMBICORT) 80-4.5 mcg/actuation inhaler Inhale 2 puffs 2 (two) times a day. Patient taking differently: Inhale 2 puffs 2 (two) times a day . Yes 2 puffs, Inhalation, 2 times daily Patient taking differently: Inhale 2 puffs 2 (two) times a day . clonazePAM (KLONOPIN) 1 MG tablet Take 1 tablet by mouth nightly TAKES 1-2 TABLETS. Yes 1 tablet, Oral, Nightly, TAKES 1-2 TABLETS lidocaine (LIDODERM) 5 % patch Place 1 patch on the skin as needed Remove & Discard patch within 12 hours or as directed by MD . Yes 1 patch, Transdermal, As needed, Remove & Discard patch within 12 hours or as directed by MD lisinopril (PRINIVIL,ZESTRIL) 20 MG tablet Take 20 mg by mouth 2 (two) times a day TAKES 1 TABLET. Yes 20 mg, Oral, 2 times daily, TAKES 1 TABLET oxyCODONE-acetaminophen (PERCOCET) 10-325 mg per tablet Take 2 (two) tablets by mouth 3 (three) times a day (Days supply per fill: 30). Yes 2 tablets, Oral, 3 times daily, (Days supply per fill: 30) rOPINIRole (REQUIP) 2 MG tablet Take 2 mg by mouth nightly TAKES 2-3 TABLETS. Yes 2 mg, Oral, Nightly, TAKES 2-3 TABLETS SUMAtriptan (IMITREX) 100 MG tablet Take 1 (one) tablet (100 mg total) by mouth as needed for migraine. Yes 100 mg, Oral, As needed [employer]AM[employer] inhaler No dose, route, or frequency recorded. flu vaccine qs 2015 (FLUZONE QUAD) injection Sign this order in conjunction with the immunization order to satisfy [place] Board [employer] Pharmacy Positive ID requirements for immunization orders. Sign this order in conjunction with the immunization order to satisfy [place] Board of Pharmacy Positive ID requirements for immunization orders. DULoxetine (CYMBALTA) 60 MG capsule Take 60 mg by mouth 2 (two) times a day TAKES 1 TABLET . 60 mg, Oral, 2 times daily, TAKES 1 TABLET ONDANSETRON (ZOFRAN ODT ORAL) Take by mouth as needed TAKES 1 TABLET. Oral, As needed, TAKES 1 TABLET tiZANidine (ZANAFLEX) 4 MG tablet Take 1 (one) tablet (4 mg total) by mouth 3 (three) times a day. 4 mg, Oral, 3 times daily Allergies Allergen Reactions Lyrica [Pregabalin] Other (See Comments) nightmares Metformin GI Intolerance Review of Systems Constitution: (negative) HENT: (negative) Eyes: (negative) Respiratory: no cough, shortness of breath Cardiovascular: (negative) - Exercise capacity: Greater than 4 METS Gastrointestinal: (negative) Genitourinary: (negative) Musculoskeletal: (negative) Skin: (negative) Neurological: (negative) Hematological: (negative) Physical Exam BP (!) 167/107 Pulse (!) 111 Temp 97.7 F (36.5 C ) Ht 5' 7 Wt 91.6 kg (202 lb) SpO2 97% BMI 31.64 kg/m General - No Apparent Distress, well developed, well nourished. Vitals reviewed. Skin - No Rash, Normal Turgor Eyes - Pupils Equal, Conjunctiva Clear ENT - External Ears Normal, Hearing Normal Neck - Trachea Midline, No TMG Cardiovascular - Regular Rate and Rhythm, Tachycardia, No Murmurs, Gallops, or Rubs, No Peripheral Edema Respiratory - Decreased BS, CTA, Normal Resp. Effort GI - Soft Nontender, Positive Bowel Sounds, No Hepatosplenomegaly Musculoskeletal - Dorsiflexion Intact, No Calf Tenderness Neuro/Psych - A&Ox3, Appropriate Mood and Affect Data Preprocedure Sleep Apnea Assessment - High Risk (3/3) Sleep Apnea in the patient's Active Problem List or Medical History: yes 1. History of apparent airway obstruction during sleep: (1 point for this category) Do you snore frequently, or snore loud enough to be heard through a closed door?: yes Do you awaken from sleep with a choking sensation or have periods during sleep when someone has observed you pausing between breaths?: yes 2. Somnolence of the patient: (1 point for this category) Do you find yourself frequently sleepy despite adequate hours of sleep the night before?: yes Do you fall asleep easily while: watching TV, reading, riding in or driving a car?: no 3. Predisposing physician characteristics: (1 point for this category, 2 points if the BMI ? 40) BMI (Calculated): 31.6 Neck Circumference (inches): 17.5 inches Recent Results (from the past 17395 hours) NM MYOCARDIAL PERFUSION MULTI SPECT 09/15/2015 (Final) Status: Normal Narrative A pharmacological stress test was performed using regadenoson without low-level exercise. The patient reported nausea and flushing during the stress test. No SOB or CP. Reported warm flush and mild nausea only. Baseline ECG is normal. Question of Mild IVCD, no acute ST-T wave changes. Poor 'R '-wave progression There was no ST segment deviation noted during stress. Arrhythmias during stress: none. Arrhythmias during recovery: none. There were no significant arrhythmias noted during the test. ECG was interpretable. Normal myocardial perfusion imaging study. Satisfactory pharmacologic cardiac stress test without evidence of ischemia. Recent Results (from the past 53285 hours) XR OR L-SPINE 2-3 VIEWS 11/08/2017 (Final) Status: Normal Narrative EXAMINATION: XR OR L-SPINE 2-3 VIEWS HISTORY: ORDERING SYSTEM PROVIDED HISTORY: spine surgery, TECHNOLOGIST PROVIDED HISTORY: Reason for exam: Lumbar stenosis with neurogenic claudication Illness/Other Encounter Type: Ongoing Additional signs and symptoms: n/a Fluoro dose in mGy: 2.44 ORDERING SYSTEM PROVIDED DIAGNOSIS CODES: COMPARISON: 06/29/2017. TECHNIQUE: Fluoro dose in Ka,r mGy: 2.44. Fluoroscopic assistance was provided intraoperatively. Two views were obtained. Total fluoro time 2.44 minutes. FINDINGS: There has been a revision ofa lumbosacral spinal fusion with transpedicular screws L2 through S1. The alignment is satisfactory with degenerative changes and degenerative retrolisthesis of L2 on L3. Impression Satisfactory postoperative changes lumbosacral spine. MA/lab Workstation ID: [id number] DATA SECTION LABS ORDERED AND PENDING PULSE OXIMETRY 97% On RA EKG INDEPENDENT INTERPRETATION Done . Sinus tachycardia. LAFB. No acute changes. OUTSIDE RECORDS REQUESTED None. OLD RECORD SUMMARY Chest xray 11/03/17. Stress 2014.in this encounter Formatting of this note may be different from the original. Assessment and Plan 1. Preop testing Preoperative medical risk stratification indicates patient is at acceptable risk for elective major surgery pending Basic Metabolic Panel, CBC, PT/INR, Urinalysis, Urine Aerobic Culture, APTT. 2. Primary osteoarthritis of right hip Plan surgical correction. Dr. Sears at [facility]. Patient provided instructions on preoperative management of medications including withholding Aspirin, NSAIDS, and specific Herbal Supplements 7 days before surgery. Prophylaxis for prevention of deep vein thrombosis per primary surgical team. Please follow the 2012 ACCP guidelines. 3. Pre-operative cardiovascular examination This patient has no active cardiac conditions and would be considered at a low risk for a major adverse cardiac event(MACE) based on a revised cardiac risk index score of 0, in addition is asymptomatic with greater than 4 METS of functional capacity and therefore is at acceptable cardiac risk for elective surgery based on 2014 ACC/AHA guidelines. 4. Essential hypertension with goal blood pressure less than 130/80 Well controlled and optimized for surgery on home regimen, lisinopril. Will need to check perioperative BP's. The last BP was BP: (!) 167/107. Will use the lisinopril the AM of surgery due to her significant elevation in the BP today. 5. Chronic obstructive pulmonary disease, unspecified COPD type (HCC) Well optimized for surgery on Symbicort and as needed albuterol. Will use the AM of surgery. This condition will require close post operative monitoring in recovery. 6. Depression, unspecified depression type Well controlled and optimized for surgery on home medications. Continue cymbalta pre and post-op. 7. Anxiety On klonopin at HS which is also for RLS. 8. RLS (restless legs syndrome) Managed well on klonopin and requip at HS. Continue pre and post-op. 9. AYO (obstructive sleep apnea) No CPAP. Uses a mouthpiece. This condition will require close post operative monitoring in recovery. 10. Obesity (BMI 30-39.9) BMI is 31.64. She will work on weight loss with her PCP after surgery. AYO as above. This condition will require close post operative monitoring in recovery. Chief Complaint Patient presents with Pre-operative Medical Risk Stratification History of Present Illness Matthew Perez is a 62 y.o. female who presents for preoperative medical risk stratification consult at the request of Gabo Sears MD prior to RIGHT TOTAL HIP ARTHROPLASTY [facility] OR 02/27/18. Patient reports she has DJD and had right knee replaced 2015. Then back surgery 10/2017. Reports right hip pain for about a year getting worse after back surgery. Rates hip pain 10/10 Using walker since back surgery in October. The symptoms have failed to respond to conservative measures. She has done well with anesthesia in the past. Her medical conditions seem stable. She has hypertension and she did not take her BP medication today. She had a stressful morning as well. Her last few BP's in [facility] are high normal and she has chronic tachycardia. Please see below regarding status of active medical conditions and assessment and plan regarding details of preoperative medical risk stratification. 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 later had negative bx for lung cancer Cataract 08/23/2014 immature Chronic pain disorder rt foot, hx 4 foot fractures; calves of legs cause pain,muscle spasms Congestive heart failure (HCC) 10/13/2015 patient denies COPD (chronic obstructive pulmonary disease) (HCC) Depression Diarrhea Fibromyalgia, primary GERD (gastroesophageal reflux disease) patient denies History of cardiac cath 2005 normal reported by patient History of echocardiogram History of stress test 09/08/2015 Hypertension controlled Migraines Obesity Pneumonia x2 , had 2 pneumonia shots Restless legs syndrome Shoulder joint pain rt plan Arthroscopy rotator cuff repair Sleep apnea, obstructive unable to use cpap; recently received mouthpiece Varicose veins of both lower extremities Past Medical History Pertinent Negatives: Diagnosis Date Noted Bleeding disorder (HCC) 02/17/2018 Complication of anesthesia 10/29/2015 16 surgeries since 2003,depressed fewdays after surgery Coronary artery disease 11/03/2017 Deep vein thrombosis (HCC) 11/03/2017 Diabetes mellitus type I (HCC) 11/03/2017 Diabetes mellitus, type 2 (HCC) 11/03/2017 History of blood transfusion 11/03/2017 Hyperlipidemia 11/03/2017 Myocardial infarction (HCC) 11/03/2017 Nephrolithiasis 11/03/2017 No blood products 11/03/2017 PONV (postoperative nausea and vomiting) 11/03/2017 Pulmonary embolism (HCC) 11/03/2017 Rheumatoid arthritis (HCC) 10/28/2017 Past Surgical History: Procedure Laterality Date AR'SCOPY SHOULD SAD, SLAP, RCR, RESECT DISTAL CLAVICLE, BICEPS TENODESIS Right 11/04/2015 Procedure: AR'SCOPY RT SHOULD GREGORY, RCR, & BICEPS POSS OPEN; Surgeon: Jack Dave MD; Location: [facility] Main OR; Service: BACK SURGERY 2008,2002 x 2 Low back, BLADDER SUSPENSION bladder tie-up BRONCHOSCOPY CARDIAC CATHETERIZATION 08/2006 [facility] COLONOSCOPY FOOT SURGERY Right foot hammer, toes; 3 surg FOOT SURGERY Right hammer toes, fractuered foot;3 surg HYSTERECTOMY CARLOS MANUEL BSO Bladder suspension JOINT REPLACEMENT Right TKR KNEE SURGERY Left 2013 arthroscopic LAMINECTOMY DECOMP LUMBAR W/FUSION 4 OR MORE LVL N/A 11/08/2017 Procedure: HARDWARE REMOVAL L4-S1, DECOMPRESSION/FUSION L2-L4, PLIF, REINSTRUMENT L2-S1; Surgeon: Alejo Hummel MD; Location: [facility] Main OR; Service: Orthopedic LUNG SURGERY Right lower lobe; biopsy taken and nodule was benign NECK SURGERY 2008,2013 x 2 C5-6-7 anterior, 2nd included T1- C5-6-7 ROTATOR CUFF REPAIR Left TONSILLECTOMY VEIN SURGERY 2014 vein taken out in lower Left leg [place] Dr. Mooney WISDOM TOOTH EXTRACTION Social History Substance Use Topics Smoking status: Never Smoker Smokeless tobacco: Never Used Alcohol use 0.0 oz/week Comment: sometimes 10 a year; rare Family History Problem Relation Age of Onset Hypertension Father Heart disease Father Diabetes Father Breast cancer Mother ; cancer went to brain, liver and lungs Brain cancer Mother Liver cancer Mother Lung cancer Mother Hypertension Sister Diabetes Sister Hypertension Other siblings Diabetes Other siblings No Known Problems Brother Surgical complications Neg Hx Anesthesia problems Neg Hx Clotting disorder Neg Hx Deep vein thrombosis Neg Hx Pulmonary embolism Neg Hx @ Prior to Admission medications Medication Sig Taking? Dose Freq albuterol (PROVENTIL HFA;VENTOLIN HFA) 90 mcg/actuation inhaler Inhale 2 puffs as needed for wheezing . Yes 2 puffs, Inhalation, As needed albuterol (PROVENTIL) 2.5 mg /3 mL (0.083 %) nebulizer solution Take 2.5 mg by nebulization daily as needed . Yes 2.5 mg, Nebulization, Daily PRN budesonide-formoterol (SYMBICORT) 80-4.5 mcg/actuation inhaler Inhale 2 puffs 2 (two) times a day. Patient taking differently: Inhale 2 puffs 2 (two) times a day . Yes 2 puffs, Inhalation, 2 times daily Patient taking differently: Inhale 2 puffs 2 (two) times a day . clonazePAM (KLONOPIN) 1 MG tablet Take 1 tablet by mouth nightly TAKES 1-2 TABLETS. Yes 1 tablet, Oral, Nightly, TAKES 1-2 TABLETS lidocaine (LIDODERM) 5 % patch Place 1 patch on the skin as needed Remove & Discard patch within 12 hours or as directed by MD . Yes 1 patch, Transdermal, As needed, Remove & Discard patch within 12 hours or as directed by lisinopril (PRINIVIL,ZESTRIL) 20 MG tablet Take 20 mg by mouth 2 (two) times a day TAKES 1 TABLET. Yes 20 mg, Oral, 2 times daily, TAKES 1 TABLET oxyCODONE-acetaminophen (PERCOCET) 10-325 mg per tablet Take 2 (two) tablets by mouth 3 (three) times a day (Days supply per fill: 30). Yes 2 tablets, Oral, 3 times daily, (Days supply per fill: 30) rOPINIRole (REQUIP) 2 MG tablet Take 2 mg by mouth nightly TAKES 2-3 TABLETS. Yes 2 mg, Oral, Nightly, TAKES 2-3 TABLETS SUMAtriptan (IMITREX) 100 MG tablet Take 1 (one) tablet (100 mg total) by mouth as needed for migraine. Yes 100 mg, Oral, As needed EASIVENT HOLDING CHAMBER inhaler No dose, route, or frequency recorded. flu vaccine qs 2015 (FLUZONE QUAD) injection Sign this order in conjunction with the immunization order to satisfy [place] Board of Pharmacy Positive ID requirements for immunization orders. Sign this order in conjunction with the immunization order to satisfy [place] Board of Pharmacy Positive ID requirements for immunization orders. DULoxetine (CYMBALTA) 60 MG capsule Take 60 mg by mouth 2 (two) times a day TAKES 1 TABLET . 60 mg, Oral, 2 times daily, TAKES 1 TABLET ONDANSETRON (ZOFRAN ODT ORAL) Take by mouth as needed TAKES 1 TABLET. Oral, As needed, TAKES 1 TABLET tiZANidine (ZANAFLEX) 4 MG tablet Take 1 (one) tablet (4 mg total) by mouth 3 (three) times a day. 4 mg, Oral, 3 times daily Allergies Allergen Reactions Lyrica [Pregabalin] Other (See Comments) nightmares Metformin GI Intolerance Review of Systems Constitution: (negative) HENT: (negative) Eyes: (negative) Respiratory: no cough, shortness of breath Cardiovascular: (negative) - Exercise capacity: Greater than 4 METS Gastrointestinal: (negative) Genitourinary: (negative) Musculoskeletal: (negative) Skin: (negative) Neurological: (negative) Hematological: (negative) Physical Exam BP (!) 167/107 Pulse (!) 111 Temp 97.7 F (36.5 C ) Ht 5' 7 Wt 91.6 kg (202 lb) SpO2 97% BMI 31.64 kg/m General - No Apparent Distress, well developed, well nourished. Vitals reviewed. Skin - No Rash, Normal Turgor Eyes - Pupils Equal, Conjunctiva Clear ENT - External Ears Normal, Hearing Normal Neck - Trachea Midline, No TMG Cardiovascular - Regular Rate and Rhythm, Tachycardia, No Murmurs, Gallops, or Rubs, No Peripheral Edema Respiratory - Decreased BS, CTA, Normal Resp. Effort GI - Soft Nontender, Positive Bowel Sounds, No Hepatosplenomegaly Musculoskeletal - Dorsiflexion Intact, No Calf Tenderness Neuro/Psych - A&Ox3, Appropriate Mood and Affect Data Preprocedure Sleep Apnea Assessment - High Risk (3/3) Sleep Apnea in the patient's Active Problem List or Medical History: yes 1. History of apparent airway obstruction during sleep: (1 point for this category) Do you snore frequently, or snore loud enough to be heard through a closed door?: yes Do you awaken from sleep with a choking sensation or have periods during sleep when someone has observed you pausing between breaths?: yes 2. Somnolence of the patient: (1 point for this category) Do you find yourself frequently sleepy despite adequate hours of sleep the night before?: yes Do you fall asleep easily while: watching TV, reading, riding in or driving a car?: no 3. Predisposing physician characteristics: (1 point for this category, 2 points if the BMI ? 40) BMI (Calculated): 31.6 Neck Circumference (inches): 17.5 inches Recent Results (from the past 01309 hours) NM MYOCARDIAL PERFUSION MULTI SPECT 09/15/2015 (Final) Status: Normal Narrative A pharmacological stress test was performed using regadenoson without low-level exercise. The patient reported nausea and flushing during the stress test. No SOB or CP. Reported warm flush and mild nausea only. Baseline ECG is normal. Question of Mild IVCD, no acute ST-T wave changes. Poor 'R '-wave progression There was no ST segment deviation noted during stress. Arrhythmias during stress: none. Arrhythmias during recovery: none. There were no significant arrhythmias noted during the test. ECG was interpretable. Normal myocardial perfusion imaging study. Satisfactory pharmacologic cardiac stress test without evidence of ischemia. Recent Results (from the past 94889 hours) XR OR L-SPINE 2-3 VIEWS 11/08/2017 (Final) Status: Normal Narrative EXAMINATION: XR OR L-SPINE 2-3 VIEWS HISTORY: ORDERING SYSTEM PROVIDED HISTORY: spine surgery, TECHNOLOGIST PROVIDED HISTORY: Reason for exam: Lumbar stenosis with neurogenic claudication Illness/Other Encounter Type: Ongoing Additional signs and symptoms: n/a Fluoro dose in mGy: 2.44 ORDERING SYSTEM PROVIDED DIAGNOSIS CODES: COMPARISON: 06/29/2017. TECHNIQUE: Fluoro dose in Ka,r mGy: 2.44. Fluoroscopic assistance was provided intraoperatively. Two views were obtained. Total fluoro time 2.44 minutes. FINDINGS: There has been a revision ofa lumbosacral spinal fusion with transpedicular screws L2 through S1. The alignment is satisfactory with degenerative changes and degenerative retrolisthesis of L2 on L3. Impression Satisfactory postoperative changes lumbosacral spine. MA/lab Workstation ID: [id number] DATA SECTION LABS ORDERED AND PENDING PULSE OXIMETRY 97% On RA EKG INDEPENDENT INTERPRETATION Done . Sinus tachycardia. LAFB. No acute changes. OUTSIDE RECORDS REQUESTED None. OLD RECORD SUMMARY Chest xray 11/03/17. Stress 2014.in this encounter Formatting of this note may be different from the original. Assessment and Plan 1. Preop testing Preoperative medical risk stratification indicates patient is at acceptable risk for elective surgery with risk factors as detailed below pending lab work and cxr ECG from today read independently today. 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 Pt given instructions to follow up their PCP. Current medications have been reviewed. Nicotine/tobacco screen completed. This patient is a non-smoker. 2. Degeneration of lumbar intervertebral disc Patient instructed on cessation of aspirin/nsaids/herbals for seven days preoperatively and voiced understanding 3. Degenerative disc disease at L5-S1 level Follow patient clinically and manage expectantly 4. Pre-operative cardiovascular examination This patient has no revised cardiac risk indicators (RCRI) and would therefore be considered to be at low risk for major adverse cardiac events (MACE) and describes functional capacity of greater than 4 metabolic equivalents (METS) without symptoms of chest pain or shortness of breath. This patient would thus be considered at acceptable perioperative cardiac risk based on the 2014 ACC/AHA guidelines on perioperative cardiovascular evaluation. 5. AYO (obstructive sleep apnea) Intol of cpap, uses oral device, cont periop, place on ayo protocol. Follow patient clinically and manage expectantly 6. Severe persistent asthma, unspecified whether complicated Patient reports two recent flares, inadequate symptom control and non-compliance with home medications. Counseled on health risks and need for compliance, she will resume symbicort scheduled starting today. We will continue scheduled and prn nebs/mdis and follow pulmonary status closely in the perioperative period 7. Obesity (BMI 30.0-34.9) BMI 32.45 No overt history of AYO. Would follow pulmonary status closely with continuous pulse oximetry and provide aggressive pulmonary toilet including IS q1h w/a Weight loss strategies discussed with patient. 8. Postlaminectomy syndrome of lumbar region Takes perc 10s 6/day, will be tolerant and require postop dose adjustment. 9. History of cardiomyopathy lvef has been intact on recent testing. No evidence of decompensated disease state, cont to follow clinically and manage expectantly 10. Restless legs syndrome Cont home meds, Follow patient clinically and manage expectantly 11. Depression, unspecified depression type Patient's mental state currently stable, continue home medications perioperatively and provide prn redirection. 12. Benign hypertension Today's blood pressure reading of BP Readings from Last 1 Encounters: 11/03/17 132/85 falls within an acceptable range (<140 & <90). Currently well controlled on home regimen will continue perioperatively including am meds on DOS but Holding javan-I/arb/diuretics am DOS to avoid hypovolemia/hypotension in npo/anesthetized state . Postop PRNs will be available for persistent elevations. 13. Migraine without status migrainosus, not intractable, unspecified migraine type Cont prn abortive therapy, no current cephalgia. Follow patient clinically and manage expectantly 14. Need for prophylactic measure Patient is at routine risk for postop DVT and choice of pharmacologic agent deferred to attending surgeon and would recommend utilizing the 2012 ACCP Consensus Guidelines. Chief Complaint Patient presents with Pre-operative Medical Risk Stratification History of Present Illness Please see below regarding status of active medical conditions and assessment and plan regarding details of preoperative medical risk stratification. 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 later had negative bx for lung cancer Cataract 08/23/2014 immature Chronic pain disorder rt foot, hx 4 foot fractures; calves of legs cause pain,muscle spasms Congestive heart failure (HCC) 10/13/2015 no meds for, said she doesn't have COPD (chronic obstructive pulmonary disease) (HCC) Depression Diarrhea Fibromyalgia Fibromyalgia, primary GERD (gastroesophageal reflux disease) hx nausea History of cardiac cath 2005 normal reported by patient History of echocardiogram History of stress test 2014 Hypertension controlled Migraines Obesity Pneumonia x2 , had 2 pneumonia shots Shoulder joint pain rt plan Arthroscopy rotator cuff repair Sleep apnea, obstructive unable to use cpap; recently received mouthpiece Varicose veins of both lower extremities Past Medical History Pertinent Negatives: Diagnosis Date Noted Complication of anesthesia 10/29/2015 16 surgeries since 2003,depressed fewdays after surgery Coronary artery disease 11/03/2017 Deep vein thrombosis (HCC) 11/03/2017 Diabetes mellitus type I (HCC) 11/03/2017 Diabetes mellitus, type 2 (HCC) 11/03/2017 History of blood transfusion 11/03/2017 Hyperlipidemia 11/03/2017 Myocardial infarction 11/03/2017 Nephrolithiasis 11/03/2017 No blood products 11/03/2017 PONV (postoperative nausea and vomiting) 11/03/2017 Pulmonary embolism (HCC) 11/03/2017 Rheumatoid arthritis (HCC) 10/28/2017 Past Surgical History: Procedure Laterality Date AR'SCOPY SHOULD SAD, SLAP, RCR, RESECT DISTAL CLAVICLE, BICEPS TENODESIS Right 11/04/2015 Procedure: AR'SCOPY RT SHOULD GREGORY, RCR, & BICEPS POSS OPEN; Surgeon: Jack Dave MD; Location: [facility] Main OR; Service: BACK SURGERY 2008,2002 x 2 Low back, BLADDER SUSPENSION bladder tie-up BRONCHOSCOPY CARDIAC CATHETERIZATION 08/2006 [facility] COLONOSCOPY FOOT SURGERY Right foot hammer, toes; 3 surg FOOT SURGERY Right hammer toes, fractuered foot;3 surg HYSTERECTOMY CARLOS MANUEL BSO Bladder suspension JOINT REPLACEMENT Right TKR KNEE SURGERY Left 2013 arthroscopic LUNG SURGERY Right lower lobe; biopsy taken and nodule was benign NECK SURGERY 2008,2013 x 2 C5-6-7 anterior, 2nd included T1- C5-6-7 ROTATOR CUFF REPAIR Left TONSILLECTOMY VEIN SURGERY 2014 vein taken out in lower Left leg in [place] Dr. Jesica SANCHES TOOTH EXTRACTION Social History Substance Use Topics Smoking status: Never Smoker Smokeless tobacco: Never Used Alcohol use 0.0 oz/week Comment: sometimes 10 a year; rare Family History Problem Relation Age of Onset Hypertension Father Heart disease Father Diabetes Father Breast cancer Mother ; cancer went to brain, liver and lungs Brain cancer Mother Liver cancer Mother Lung cancer Mother Hypertension Sister Diabetes Sister Hypertension Other siblings Diabetes Other siblings No Known Problems Brother Surgical complications Neg Hx Anesthesia problems Neg Hx Clotting disorder Neg Hx Deep vein thrombosis Neg Hx Pulmonary embolism Neg Hx @ Prior to Admission medications Medication Sig Taking? Dose Freq budesonide-formoterol (SYMBICORT) 80-4.5 mcg/actuation inhaler Inhale 2 puffs 2 (two) times a day. Patient taking differently: Inhale 2 puffs 2 (two) times a day . Yes 2 puffs, Inhalation, 2 times daily Patient taking differently: Inhale 2 puffs 2 (two) times a day . clonazePAM (KLONOPIN) 1 MG tablet Take 1 tablet by mouth nightly TAKES 1-2 TABLETS. Yes 1 tablet, Oral, Nightly, TAKES 1-2 TABLETS DULoxetine (CYMBALTA) 60 MG capsule Take 60 mg by mouth 2 (two) times a day TAKES 1 TABLET . Yes 60 mg, Oral, 2 times daily, TAKES 1 TABLET lisinopril (PRINIVIL,ZESTRIL) 20 MG tablet Take 20 mg by mouth 2 (two) times a day TAKES 1 TABLET. Yes 20 mg, Oral, 2 times daily, TAKES 1 TABLET ONDANSETRON (ZOFRAN ODT ORAL) Take by mouth as needed TAKES 1 TABLET. Yes Oral, As needed, TAKES 1 TABLET oxyCODONE-acetaminophen (PERCOCET) 10-325 mg per tablet Take 2 (two) tablets by mouth 3 (three) times a day 30 days. Yes 2 tablets, Oral, 3 times daily, 30 days rOPINIRole (REQUIP) 2 MG tablet Take 2 mg by mouth nightly TAKES 2-3 TABLETS. Yes 2 mg, Oral, Nightly, TAKES 2-3 TABLETS SUMAtriptan (IMITREX) 100 MG tablet Take 1 (one) tablet (100 mg total) by mouth as needed for migraine. Yes 100 mg, Oral, As needed LIDOCAINE (LIDODERM TOP) Apply topically as needed APPLIES NEEDED. Yes Topical (Top), As needed, APPLIES NEEDED promethazine (PHENERGAN) 25 MG tablet Take 25 mg by mouth every 6 (six) hours as needed for nausea TAKES 1 TABLET . Yes 25 mg, Oral, Every 6 hours PRN, TAKES 1 TABLET sertraline (ZOLOFT) 100 MG tablet Take 1 tablet by mouth nightly TAKES 1 TABLET. Yes 1 tablet, Oral, Nightly, TAKES 1 TABLET albuterol (PROVENTIL HFA;VENTOLIN HFA) 90 mcg/actuation inhaler Inhale 2 puffs as needed for wheezing . 2 puffs, Inhalation, As needed albuterol (PROVENTIL) 2.5 mg /3 mL (0.083 %) nebulizer solution Take 2.5 mg by nebulization daily as needed . 2.5 mg, Nebulization, Daily PRN diclofenac sodium 1 % Gel Apply 2 g topically 4 (four) times a day. Patient taking differently: Apply 2 g topically 4 (four) times a day . 2 g, Topical (Top), 4 times daily Patient taking differently: Apply 2 g topically 4 (four) times a day . DULoxetine (CYMBALTA) 60 MG capsule Take 1 capsule (60 mg total) by mouth daily. Patient taking differently: Take 60 mg by mouth 2 (two) times a day TAKES 1 TABLET. 60 mg, Oral, Daily Patient taking differently: Take 60 mg by mouth 2 (two) times a day TAKES 1 TABLET. EASIVENT HOLDING CHAMBER inhaler No dose, route, or frequency recorded. flu vaccine qs 2015 (FLUZONE QUAD) injection Sign this order in conjunction with the immunization order to satisfy [place] Board of Pharmacy Positive ID requirements for immunization orders. Sign this order in conjunction with the immunization order to satisfy [place] Board [employer] Pharmacy Positive ID requirements for immunization orders. lidocaine (LIDODERM) 5 % patch Place 1 patch on the skin daily Remove & Discard patch within 12 hours or as directed by . 1 patch, Transdermal, Every 24 hours, Remove & Discard patch within 12 hours or as directed by MD pregabalin (LYRICA) 50 MG capsule Take 1 capsule (50 mg total) by mouth 3 (three) times a day. 50 mg, Oral, 3 times daily rOPINIRole (REQUIP) 4 MG tablet Take 1 tablet (4 mg total) by mouth nightly ReasonsRestless Legs Syndrome. 4 mg, Oral, Nightly methylPREDNISolone (MEDROL DOSEPACK) 4 mg tablet follow package directions. follow package directions pantoprazole (PROTONIX) 40 MG tablet Take 40 mg by mouth as needed TAKES 1 TABLET. 40 mg, Oral, As needed, TAKES 1 TABLET Allergies Allergen Reactions Metformin GI Intolerance No Known Drug Allergies Review of Systems Physical Exam BP 132/85 Pulse (!) 101 Temp 97.6 F (36.4 C ) (Oral) Ht 5' 6 Wt 91.2 kg (201 lb 1 oz) SpO2 93% BMI 32.45 kg/m Data Preprocedure Sleep Apnea Assessment - High Risk (3/3) Sleep Apnea in the patient's Active Problem List or Medical History: yes 1. History of apparent airway obstruction during sleep: (1 point for this category) Do you snore frequently, or snore loud enough to be heard through a closed door?: yes (tested positive and unable to wear CPAP and just received mouthpiece) Do you awaken from sleep with a choking sensation or have periods during sleep when someone has observed you pausing between breaths?: no 2. Somnolence of the patient: (1 point for this category) Do you find yourself frequently sleepy despite adequate hours of sleep the night before?: yes (unable to sleep well due to pain and restless legs) Do you fall asleep easily while: watching TV, reading, riding in or driving a car?: no 3. Predisposing physician characteristics: (1 point for this category, 2 points if the BMI ? 40) BMI (Calculated): 32.5 Neck Circumference (inches): 17 inches Recent Results (from the past 02324 hours) NM MYOCARDIAL PERFUSION MULTI SPECT 09/15/2015 (Final) Status: Normal Narrative A pharmacological stress test was performed using regadenoson without low-level exercise. The patient reported nausea and flushing during the stress test. No SOB or CP. Reported warm flush and mild nausea only. Baseline ECG is normal. Question of Mild IVCD, no acute ST-T wave changes. Poor 'R '-wave progression There was no ST segment deviation noted during stress. Arrhythmias during stress: none. Arrhythmias during recovery: none. There were no significant arrhythmias noted during the test. ECG was interpretable. Normal myocardial perfusion imaging study. Satisfactory pharmacologic cardiac stress test without evidence of ischemia. Recent Results (from the past 06867 hours) XR FOOT LEFT 03/22/2016 (Final) Status: Normal Narrative EXAMINATION: XR FOOT LEFT ROUTINE HISTORY: pain COMPARISON: none TECHNIQUE: Three views of the left foot FINDINGS: No fracture or dislocation is seen. Advanced osteoarthritis is isolated to the 1st metatarsophalangeal joint. No bony erosive changes. Soft tissues are unremarkable. No radiopaque foreign bodies. Impression There is developing hallux rigidus of the 1st ray. No acute bony abnormality. Workstation ID: [id number] in this encounter June Hogan, ROBBI - 02/28/2018 10:07 AM Jose R Simmons LISW-S - 02/27/2018 6:31 PM Nelda Gutierrez - 02/27/2018 5:32 PM Lukas Linares MD - 02/27/2018 2:25 PM EDT Consult Notes (unrecognized section and content) Formatting of this note may be different from the original. Occupational Therapy OCCUPATIONAL THERAPY EVALUATION NOTE Skilled Therapy Needs After Discharge Anticipate Resolution of Current Assessment Limitations Including: Pain, Social Support (anxiety) Are Skilled Therapy Services Needed After Discharge: Yes Intensity of Skilled Therapy: 2-3 days per week Anticipated Duration of Skilled Therapy: Duration 7 - 10 days DME Recommendation: Tub seat DME Rationale: Patient's condition creates an increased risk of safety hazard without recommended equipment, Unreasonable time frame to complete ADL without recommended equipment, Patient will require increased level of care without recommended equipment, Functional reach deficit/ post surgical precaution adherence/ limitations of body habitus Rehab Potential: Excellent, For goals Outcomes Measures Prior Function Daily Activity: Raw Score: 24 Prior Function Daily Activity % Impaired: 0% functionally impaired AM-PAC Daily Activity: Raw Score: 20 AM-PAC Daily Activity % Impaired: 38.32% functionally impaired Occupational Therapy Assessment The patient presents with musculoskeletal impairment(s) in right lower extremity which create performance deficits including strength, range of motion, balance, activity tolerance and pain, memory, insight and safety, and pain intolerance and anxiety. These performance impairments limit participation in LE dressing, bathing, toileting, home management and functional mobility in the chosen occupational roles of premorbid level individual, spouse and community member. The patient's co morbidities do affect patient performance in the above activities and roles. The patient's home setup is a barrier and limitations of family/caregiver support is a barrier for return to prior level of function. The patient's awareness of own capacity and performance is a barrier to return to prior level of function. During the assessment, minimal to moderate modification of task was required and several treatment options were identified in the plan of care. This consultation required brief review of the medical and therapy history. Activity Tolerance Therapy Precautions Orthotic Devices: No Weight Bearing Status: X RLE: Wt bearing as tolerated General Rehab Precautions: Total hip, Fall risk Cognition Overall Cognitive Status: Within Functional Limits Arousal/Alertness: Appropriate responses to stimuli Orientation Level: Oriented X4 Executive functioning: WFL Safety Judgment: Decreased awareness of need for safety (able to recall 1/3 precautions only) Problem Solving: Assistance required to generate solutions, Assistance required to implement solutions Attention: Attends to quiet environment Hearing Status: WFL Social Interaction: Anxious, Verbose, Cooperative Comments: pt highly anxious during session with multiple complaints and concerns; all needs met. Pt recalls 1/3 posterior hip precautions at beginning and end of session ADL/IADL LE Dressing: Contact guard, Use of adaptive equipment Bed Mobility Supine to Sit: Min (R LE) Sit to Supine: (not observed; in chair) Functional Transfers Sit to Stand: Contact guard (bed rail) Bed to Chair Transfers: Contact Guard Home Living Type of Home: House Home Layout: Two level, Bed/bath upstairs, Laundry in basement, Stairs to enter with rails (5 ELLIOTT) Bathroom Shower/Tub: Tub/shower unit Bathroom Toilet: Raised Bathroom Equipment: Grab bars in shower, Grab bars around toilet Home Equipment: Cane, Wheeled Walker, Java Tech Lead, Sock aid (rollator. uses w/w, cane PRN. ) Additional Comments: Pt attended pre-op class Prior Level of Function Level of C[place]: Independent with ADLs and functional transfers, Independent with homemaking with ambulation Lives With: Spouse ADL Assistance: Independent Homemaking Assistance: Independent Vocational: On disability Comments: - driving, manages finances and medications Past Medical History: Diagnosis Date Arthritis osteo Asthma 08/23/2014 Benign hypertension 04/01/2015 Cataract 08/23/2014 immature Chronic pain disorder rt foot, hx 4 foot fractures; calves of legs cause pain,muscle spasms Congestive heart failure (HCC) 10/13/2015 patient denies COPD (chronic obstructive pulmonary disease) ([facility]) Depression Diarrhea Fibromyalgia, primary GERD (gastroesophageal reflux disease) patient denies History of cardiac cath 2005 normal reported by patient History of echocardiogram History of stress test 09/08/2015 Hypertension controlled Migraines Obesity Pneumonia x2 , had 2 pneumonia shots Restless legs syndrome Shoulder joint pain rt plan Arthroscopy rotator cuff repair Sleep apnea, obstructive unable to use cpap; recently received mouthpiece but not using Varicose veins of both lower extremities Past Surgical History: Procedure Laterality Date AR'SCOPY SHOULD SAD, SLAP, RCR, RESECT DISTAL CLAVICLE, BICEPS TENODESIS Right 11/04/2015 Procedure: AR'SCOPY RT SHOULD GREGORY, RCR, & BICEPS POSS OPEN; Surgeon: Jack Dave MD; Location: [facility] Main OR; Service: ARTHROPLASTY HIP TOTAL Right 02/27/2018 Procedure: RIGHT TOTAL HIP ARTHROPLASTY; Surgeon: Gabo Sears MD; Location: [facility] Main OR; Service: Orthopedic BACK SURGERY 2008,2002 x 2 Low back, BLADDER SUSPENSION bladder tie-up BRONCHOSCOPY CARDIAC CATHETERIZATION 08/2006 [facility] COLONOSCOPY FOOT SURGERY Right foot hammer, toes; 3 surg FOOT SURGERY Right hammer toes, fractuered foot;3 surg HYSTERECTOMY CARLOS MANUEL BSO Bladder suspension JOINT REPLACEMENT Right TKR KNEE SURGERY Left 2013 arthroscopic LAMINECTOMY DECOMP LUMBAR W/FUSION 4 OR MORE LVL N/A 11/08/2017 Procedure: HARDWARE REMOVAL L4-S1, DECOMPRESSION/FUSION L2-L4, PLIF, REINSTRUMENT L2-S1; Surgeon: Alejo Hummel MD; Location: [facility] Main OR; Service: Orthopedic LUNG SURGERY Right lower lobe; biopsy taken and nodule was benign NECK SURGERY 2008,2013 x 2 C5-6-7 anterior, 2nd included T1- C5-6-7 ROTATOR CUFF REPAIR Left TONSILLECTOMY VEIN SURGERY 2014 vein taken out in lower Left leg in [place] Dr. Jesica SANCHES TOOTH EXTRACTION OCCUPATIONAL THERAPY TREATMENT NOTE Total Treatment Time (Total Session Time): 32 Minutes Timed Code Treatment Minutes: 9 Minutes Cognitive Skills Development Skilled Intervention: reviewed hip precautions twice with patient with initial verbalized understanding; unable to recall additional from beginning of session Self-Care / Home Management ADL/IADL Skilled Intervention: rehearsed use of ADL kit's financial brokers and sock aide to denisse/doff socks on non-op side with good retun demo, likely CG for standing components. Pt owns long handled sponge, financial brokers and sock aide. pt limited by anxiety this date for rehearsal of entire ADL routine. issued walker bag Therapeutic Activities Bed Mobility Skilled Intervention: verbal cues to sequence bed mobility with assistance for R LE management. Heavy reliance on bed rail with additional time. cues for breathing as pt began hyperventilating; benefits from distraction. Functional Transfers Skilled Intervention: rehearsed in room mobility with use of wh. walker. cues provided for posture and R LE as pt walks with internal rotation of foot; unable to correct. 1 seated rest break during mobility trial educated patient on in bed positioning as pt reports home propping of right LE my knee is basically to my chest. If there isn't a pillow, I feel like my knee is bending all the way back and I can't breathe. discussed implications for noncompliance with hip precautions and risk for hip flexor tightening; pt verbalizes understanding but plans to continue elevating LE For complete objective data, detailed plan of care and patient education refer to: OT EVALUATION flow sheet, OT TREATMENT flow sheet, patient Plan of Care, Plan of Care progress note, and Patient Education. This note stands as the current Discharge Summary upon patient discharge from the hospital or completion of Occupational Therapy Plan of Care. Associated Order(s): IP CONSULT TO UTILIZATION MANAGEMENT & CARE COORDINATION COMPLEX DISCHARGE Date: 02/27/2018 Time: 6:32 PM Patient Name: Matthew Perez Date of : 1955 Sex: Female Discharge Plan Shared UM/CC and RN Source of Information: Patient Contact Living Arrangements: Spouse/significant other Support Systems: Spouse/significant other Functional Status: Independent Type of Residence: Private residence Prior to Admission Home Care Services: No Current Home Equipment: Cane, Wheeled walker, Toilet seat director of athletics, Tub/Shower chair Insurance Coverage for Prescriptions: Yes Anticipated Discharge Plan Anticipated HME: None Anticipated Home Care Needs: Outpatient rehab Anticipated Facility Type: Outpatient rehabilitation Discharge Readiness Expected Discharge Date: 02/28/18 [facility] Disposition D/C Disposition: Home Agency/Destination: Home Home Care Needs : Outpatient rehab HME: None Formatting of this note may be different from the original. Physical Therapy PHYSICAL THERAPY EVALUATION NOTE Skilled Therapy Needs After Discharge Anticipate Resolution of Current Assessment Limitations Including: Pain Are Skilled Therapy Services Needed After Discharge: No DME Recommendation: None Outcomes Measures Prior Function - Basic Mobility Raw Score: 24 Points Prior Function - Basic Mobility % Impaired: 0% functionally impaired AM-PAC - Basic Mobility Raw Score: 16 Points AM-PAC - Basic Mobility % Impaired: 47.12% functionally impaired Physical Therapy Assessment History: The following factors influence the patient's participation in the PT plan of care: Personal factors: apprehension toward mobility and body habitus Environmental factors: multi-level home, bedroom/bathroom on 2nd floor and steps to enter home The following co-morbidities (from this admission or prior) influence the patient's participation in this plan of care: depression, HTN, chronic pain disorder, COPD< fibromyalgia, s/p R JUAN Number of History elements affecting this patient's PT plan of care: 3 or more Examination of Body Systems: The patient presents with impairments of strength, pain, functional endurance, coordination, balance. These impairments result in limitations of gait, functional transfers, stair-climbing, safety and activity tolerance. These impairments result in restrictions of community mobility and leisure activities. Number of Body Systems elements affecting this patient's PT plan of care: 4 or more Clinical Presentation: The patient's clinical presentation for this PT evaluation is evolving as evidenced by current PT documentation. Activity Tolerance Activity Tolerance: Tolerates 10 - 20 min activity with multiple rests Therapy Precautions Orthotic Devices: No Weight Bearing Status: X RLE: Wt bearing as tolerated General Rehab Precautions: Total hip, Fall risk Balance Bed Mobility Supine to Sit: Min (at RLE) Sit to Supine: Min (at RLE) Transfers Sit to Stand: Min Meter Maintenance Person: Wheeled walker, 1 person, Gait belt Gait/Locomotion Gait Assistance: Contact guard Assistive Device: Wheeled walker Distance: 15 Feet Pattern: Step to, L Decreased stance time, R impaired heel strike, R decreased step length, L decreased step length, Over reliance on upper extremities, Forward flexed (decreased martin. no WHITLEY. no LOB.) Home Living Type of Home: House Home Layout: Two level, Bed/bath upstairs, Laundry in basement, Stairs to enter with rails (5 ELLIOTT) Bathroom Shower/Tub: Tub/shower unit Bathroom Toilet: Raised Bathroom Equipment: Grab bars in shower, Grab bars around toilet Home Equipment: Cane, Wheeled Walker (rollator; using wheeled walker, sometimes cane at baseline) Additional Comments: Pt attended pre-op class Prior Level of Function Level of C[place]: Independent with ADLs and functional transfers, Independent with homemaking with ambulation Lives With: Spouse ADL Assistance: Independent Homemaking Assistance: Independent Vocational: On disability Comments: - driving, manages finances and medications Past Medical History: Diagnosis Date Arthritis osteo Asthma 08/23/2014 Benign hypertension 04/01/2015 Cataract 08/23/2014 immature Chronic pain disorder rt foot, hx 4 foot fractures; calves of legs cause pain,muscle spasms Congestive heart failure (HCC) 10/13/2015 patient denies COPD (chronic obstructive pulmonary disease) (HCC) Depression Diarrhea Fibromyalgia, primary GERD (gastroesophageal reflux disease) patient denies History of cardiac cath 2005 normal reported by patient History of echocardiogram History of stress test 09/08/2015 Hypertension controlled Migraines Obesity Pneumonia x2 , had 2 pneumonia shots Restless legs syndrome Shoulder joint pain rt plan Arthroscopy rotator cuff repair Sleep apnea, obstructive unable to use cpap; recently received mouthpiece but not using Varicose veins of both lower extremities Past Surgical History: Procedure Laterality Date AR'SCOPY SHOULD SAD, SLAP, RCR, RESECT DISTAL CLAVICLE, BICEPS TENODESIS Right 11/04/2015 Procedure: AR'SCOPY RT SHOULD GREGORY, RCR, & BICEPS POSS OPEN; Surgeon: Jack Dave MD; Location: [facility] Main OR; Service: BACK SURGERY 2008,2002 x 2 Low back, BLADDER SUSPENSION bladder tie-up BRONCHOSCOPY CARDIAC CATHETERIZATION 08/2006 [facility] COLONOSCOPY FOOT SURGERY Right foot hammer, toes; 3 surg FOOT SURGERY Right hammer toes, fractuered foot;3 surg HYSTERECTOMY CARLOS MANUEL BSO Bladder suspension JOINT REPLACEMENT Right TKR KNEE SURGERY Left 2013 arthroscopic LAMINECTOMY DECOMP LUMBAR W/FUSION 4 OR MORE LVL N/A 11/08/2017 Procedure: HARDWARE REMOVAL L4-S1, DECOMPRESSION/FUSION L2-L4, PLIF, REINSTRUMENT L2-S1; Surgeon: Alejo Hummel MD; Location: [facility] Main OR; Service: Orthopedic LUNG SURGERY Right lower lobe; biopsy taken and nodule was benign NECK SURGERY 2008,2013 x 2 C5-6-7 anterior, 2nd included T1- C5-6-7 ROTATOR CUFF REPAIR Left TONSILLECTOMY VEIN SURGERY 2014 vein taken out in lower Left leg in [place] Dr. Abbos WISDOM TOOTH EXTRACTION PHYSICAL THERAPY TREATMENT NOTE Neuromuscular Reeducation Gait Training Skilled Intervention: Verbal cues given to maintain upright posture and forward gaze with ambulation. Educated pt re: wheeled walker management especially with turns. Therapeutic Activities Bed Mobility Skilled Intervention: Verbal and tactile cues given for sequencing of bed mobility to maintain adherence to total hip precautions. Edcuated pt re: total hip precautions and provided pt with handout Transfers Skilled Intervention: Verbal and tactile cues given for hand placement to/from wheeled walker and RLE management to adhere to hip precautions. Therapeutic Exercises For complete objective data, detailed plan of care and patient education refer to: PT EVALUATION flow sheet, PT TREATMENT flow sheet, patient Plan of Care, Plan of Care progress note, and Patient Education. This note stands as the current Discharge Summary upon patient discharge from the hospital or completion of Physical Therapy Plan Associated Order(s): IP CONSULT TO INTERNAL MEDICINE Formatting of this note may be different from the original. Lukas Dudley MD [facility] Hospitalists Medical Consultation Patient Name:Matthew Perez MR #:[id number] :1955 Admit Date: [id number] Physicians: Harmony Gee MD (Family); No ref. provider found (Referring) Perpetual Assessment: Matthew Perez is a 62 y.o. female w chronic pain who presented from home on 02/27/2018 for R JUAN, [facility] for medical management ASSESSMENT AND PLAN s/p R JUAN - pain, DVT ppx, dispo per primary - PT/OT ordered - amy-operative antibiotics and steroids given per primary Chronic back pain w opioid use - on percocet prn at home. Suspect pain will be an issue - defer pain per primary, careful with sedation as patient asking for pain medications as she is falling asleep. She has AYO so certainly at risk for hypoxia - no longer on Zanaflex, removed from med list HTN - resume home lisinopril 20mg daily COPD - not on home O2 - symbicort bid - albuterol prn Fibromyalgia - no longer on cymbalta. Removed from home med list AYO - intolerant of CPAP. Has not yet started wearing mouth piece - monitor O2 while asleep, currently on 2L NC RLS - continue requip 4mg nightly DVT ppx - per primary, on as 325 bid Dispo - per primary Medication reconciliation: Home medications reviewed by myself with patient Thank you for this consult, we will continue to follow HISTORY CC: Medical management HPI: Matthew Perez is a 62 y.o. female w a h/o fibromyalgia, chronic back pain, GERD, HTN, COPD not on home O2, RLS, AYO intolerant of CPAP who presented for R JUAN, [facility] consulted for medical management. She is seen post op. She is tired, falling asleep during interview. States pain is uncontrolled despite falling asleep. No recent or current chest pain, shortness of breath, abdominal pain, nausea, vomiting, fevers, chills, dysuria, diarrhea. ROS:>>>>>>>>>> The following system(s) were reviewed. Pertinent positive and negative findings are noted in the HPI. [x] Const [x] Eyes [x] ENT [x] Resp [x] CV [x] GI [x] [x] Neuro [x] Musc [x] Skin [x] Psych [x] Endo [x] Allergy [x] Heme/Lymph PMH/PSH/SH/FH: Past Medical History: Diagnosis Date Arthritis osteo Asthma 08/23/2014 Benign hypertension 04/01/2015 Cataract 08/23/2014 immature Chronic pain disorder rt foot, hx 4 foot fractures; calves of legs cause pain,muscle spasms Congestive heart failure (HCC) 10/13/2015 patient denies COPD (chronic obstructive pulmonary disease) (HCC) Depression Diarrhea Fibromyalgia, primary GERD (gastroesophageal reflux disease) patient denies History of cardiac cath 2005 normal reported by patient History of echocardiogram History of stress test 09/08/2015 Hypertension controlled Migraines Obesity Pneumonia x2 , had 2 pneumonia shots Restless legs syndrome Shoulder joint pain rt plan Arthroscopy rotator cuff repair Sleep apnea, obstructive unable to use cpap; recently received mouthpiece but not using Varicose veins of both lower extremities Past Surgical History: Procedure Laterality Date AR'SCOPY SHOULD SAD, SLAP, RCR, RESECT DISTAL CLAVICLE, BICEPS TENODESIS Right 11/04/2015 Procedure: AR'SCOPY RT SHOULD GREGORY, RCR, & BICEPS POSS OPEN; Surgeon: Jack Dave MD; Location: [facility] Main OR; Service: BACK SURGERY 2008,2002 x 2 Low back, BLADDER SUSPENSION bladder tie-up BRONCHOSCOPY CARDIAC CATHETERIZATION 08/2006 [facility] COLONOSCOPY FOOT SURGERY Right foot hammer, toes; 3 surg FOOT SURGERY Right hammer toes, fractuered foot;3 surg HYSTERECTOMY CARLOS MANUEL BSO Bladder suspension JOINT REPLACEMENT Right TKR KNEE SURGERY Left 2013 arthroscopic LAMINECTOMY DECOMP LUMBAR W/FUSION 4 OR MORE LVL N/A 11/08/2017 Procedure: HARDWARE REMOVAL L4-S1, DECOMPRESSION/FUSION L2-L4, PLIF, REINSTRUMENT L2-S1; Surgeon: Alejo Hummel MD; Location: [facility] Main OR; Service: Orthopedic LUNG SURGERY Right lower lobe; biopsy taken and nodule was benign NECK SURGERY 2008,2013 x 2 C5-6-7 anterior, 2nd included T1- C5-6-7 ROTATOR CUFF REPAIR Left TONSILLECTOMY VEIN SURGERY 2014 vein taken out in lower Left leg in [place] Dr. Jesica SANCHES TOOTH EXTRACTION Family History Problem Relation Age of Onset Hypertension Father Heart disease Father Diabetes Father Breast cancer Mother ; cancer went to brain, liver and lungs Brain cancer Mother Liver cancer Mother Lung cancer Mother Hypertension Sister Diabetes Sister Hypertension Other siblings Diabetes Other siblings No Known Problems Brother Surgical complications Neg Hx Anesthesia problems Neg Hx Clotting disorder Neg Hx Deep vein thrombosis Neg Hx Pulmonary embolism Neg Hx Social History Social History Marital status: Spouse name: Derrek Number of children: N/A Years of education: N/A Occupational History Not on file. Social History Main Topics Smoking status: Never Smoker Smokeless tobacco: Never Used Alcohol use 0.0 oz/week Comment: sometimes 10 a year; rare Drug use: No Sexual activity: Yes Partners: Male control/ protection: None Other Topics Concern Not on file Social History Narrative Merged History Encounter Living Arrangements: Spouse/significant other Support Systems: Spouse/significant other Functional Status: Minimum assistance Allergy Information: I have reviewed the patient's allergies. Lyrica [pregabalin] and Metformin Home Medications: Outpatient Prescriptions as of 02/27/2018 Medication Sig albuterol (PROVENTIL) 2.5 mg /3 mL (0.083 %) nebulizer solution Take 2.5 mg by nebulization daily as needed . budesonide-formoterol (SYMBICORT) 160-4.5 mcg/actuation inhaler Inhale 2 puffs 2 (two) times a day. lisinopril (PRINIVIL,ZESTRIL) 20 MG tablet Take 20 mg by mouth every evening . oxyCODONE-acetaminophen (PERCOCET) 10-325 mg per tablet Take 2 (two) tablets by mouth 3 (three) times a day (Days supply per fill: 30). rOPINIRole (REQUIP) 2 MG tablet Take 4 mg by mouth nightly TAKES 2-3 TABLETS. SUMAtriptan (IMITREX) 100 MG tablet Take 1 (one) tablet (100 mg total) by mouth as needed for migraine. EASIVENT HOLDING CHAMBER inhaler PHYSICAL EXAMINATION << >>>>> Vital Signs: Temp: [97.5 F (36.4 C )-98.6 F (37 C )] 98.5 F (36.9 C ) Heart Rate: [84-108] 96 Resp: [14-18] 15 BP: (134-157)/(69-94) 151/94 GENERAL: NAD, lying in bed EYES: Conjunctiva and sclera clear, EOMI ENT: Hearing intact. CV: RRR, no murmur. No edema RESP: Clear, no rales, rhonchi, wheezes or increase in respiratory effort, no use of accessory muscles GI: Non-distended, +BS, soft, non-tender. No guarding, masses or rebound MUSC: Normal ROM without deformity of UE, deferred LE exam SKIN: Warm and dry. No rashes. NEURO: Alert, Ox3. Moving all extremities PSYCH: Mood and affect are appropriate. Cooperative. Laboratory and Additional Data Acquired or Reviewed: [x] Laboratory [x] Transcriptions [x] Radiology [] Microbiology [] Cardiology [] Outside Records [x] Medications [] Family Time Spent: in this encounter Associated Order(s): IP CONSULT TO NEUROLOGY NEUROLOGY CONSULT NOTE Patient Name: Matthew Perez : 1955 MR #: [id number] Admit Date: [id number] Primary care provider Harmony Gee MD Consulting physician Lili Freitas MD Assessment and Plan: 64-year-old female with acute onset of vertigo present as spinning sensation or floating sensation. Symptoms persistent. Symptoms worse with change of body position. Performed Rochester-Hallpike maneuver which was positive for torsional nystagmus bilaterally, worse on left which is typical for peripheral vertigo. Patient has symptoms is a vestibulitis versus benign paroxysmal positional vertigo. Most likely vestibulitis as patient has persistent symptoms, not intermittent. - MRI of the brain pending to rule out posterior fossa lesions. Will consider consult physical therapy for Stephanie maneuver and educate patient on vestibular exercises. - Meclizine 25 mg every 6 hours. Images: CT of the brain was done yesterday on admission, normal, no brain lesions. Performed independent review of images. Discussed with the patient possible reasons for his symptoms. We will follow patient tomorrow. Chief Complaint/Reason for Visit: Dizziness, ataxia History of Present Illness: 64-year-old female who was admitted to [facility] this may complaints of dizziness and ataxia. Patient developed symptoms yesterday. She woke up in the morning with spinning sensation. Patient patient stated she does not have resolution of her improvement of vertigo. She has intermittent sensation of spinning or floating. Symptoms trigger by change of body position. At onset patient also had spells of nausea. Patient is not able to ambulate without assistance due to ataxia. Dizziness associated visual disturbance. As per patient she cannot focus. She denies any numbness, weakness, there are no change of speech. Symptoms still persist, no significant changes since yesterday. Patient still cannot ambulate.. The following portions of the patient's history were reviewed and updated as appropriate: allergies, current medications, past family history, past medical history, past social history, past surgical history and problem list. Past Medical History: Past Medical History: Diagnosis Date Arthritis osteo Asthma 08/23/2014 Benign hypertension 04/01/2015 Cataract 08/23/2014 immature Chronic pain disorder rt foot, hx 4 foot fractures; calves of legs cause pain,muscle spasms Congestive heart failure (HCC) 10/13/2015 patient denies COPD (chronic obstructive pulmonary disease) (HCC) Depression Diarrhea Fibromyalgia, primary GERD (gastroesophageal reflux disease) patient denies History of cardiac cath 2005 normal reported by patient History of echocardiogram History of stress test 09/08/2015 Hypertension controlled Migraines Obesity Pneumonia x2 , had 2 pneumonia shots Restless legs syndrome Shoulder joint pain rt plan Arthroscopy rotator cuff repair Sleep apnea, obstructive unable to use cpap; recently received mouthpiece but not using Varicose veins of both lower extremities Past Surgical Hisory: Past Surgical History: Procedure Laterality Date AR'SCOPY SHOULD SAD, SLAP, RCR, RESECT DISTAL CLAVICLE, BICEPS TENODESIS Right 11/04/2015 Procedure: AR'SCOPY RT SHOULD GREGORY, RCR, & BICEPS POSS OPEN; Surgeon: Jack Dave MD; Location: [facility] Main OR; Service: ARTHROPLASTY HIP TOTAL Right 02/27/2018 Procedure: RIGHT TOTAL HIP ARTHROPLASTY; Surgeon: Gabo Sears MD; Location: [facility] Main OR; Service: Orthopedic BACK SURGERY 2008,2002 x 2 Low back, BLADDER SUSPENSION bladder tie-up BRONCHOSCOPY CARDIAC CATHETERIZATION 08/2006 [facility] COLONOSCOPY FOOT SURGERY Right foot hammer, toes; 3 surg FOOT SURGERY Right hammer toes, fractuered foot;3 surg HYSTERECTOMY CARLOS MANUEL BSO Bladder suspension JOINT REPLACEMENT Right TKR KNEE SURGERY Left 2013 arthroscopic LAMINECTOMY DECOMP LUMBAR W/FUSION 4 OR MORE LVL N/A 11/08/2017 Procedure: HARDWARE REMOVAL L4-S1, DECOMPRESSION/FUSION L2-L4, PLIF, REINSTRUMENT L2-S1; Surgeon: Alejo Hummel MD; Location: [facility] Main OR; Service: Orthopedic LUNG SURGERY Right lower lobe; biopsy taken and nodule was benign NECK SURGERY 2008,2013 x 2 C5-6-7 anterior, 2nd included T1- C5-6-7 ROTATOR CUFF REPAIR Left TONSILLECTOMY VEIN SURGERY 2014 vein taken out in lower Left leg in [place] SANCHES TOOTH EXTRACTION Family History: Family History Problem Relation Age of Onset Hypertension Father Heart disease Father Diabetes Father Breast cancer Mother ; cancer went to brain, liver and lungs Brain cancer Mother Liver cancer Mother Lung cancer Mother Hypertension Sister Diabetes Sister Hypertension Other siblings Diabetes Other siblings No Known Problems Brother Surgical complications Neg Hx Anesthesia problems Neg Hx Clotting disorder Neg Hx Deep vein thrombosis Neg Hx Pulmonary embolism Neg Hx Social History: Social History Tobacco Use Smoking Status Never Smoker Smokeless Tobacco Never Used Social History Substance and Sexual Activity Alcohol Use Yes Alcohol/week: 0.0 standard drinks Comment: sometimes 10 a year; rare Social History Substance and Sexual Activity Drug Use No Allergy Information: I have reviewed the patient's allergies. Ibuprofen; Lyrica [pregabalin]; Duloxetine; and Metformin Home Medications: Prior to Admission medications Medication Sig Start Date End Date Taking? Authorizing Provider albuterol (PROVENTIL) 2.5 mg /3 mL (0.083 %) nebulizer solution Take 2.5 mg by nebulization daily as needed . 04/21/17 Yes Historical Provider, budesonide-formoterol (SYMBICORT) 160-4.5 mcg/actuation inhaler Inhale 2 puffs 2 (two) times a day. Yes Historical Provider, clonazePAM (KLONOPIN) 1 MG tablet Take 1 mg by mouth 2 (two) times a day as needed . 08/23/18 Yes Historical Provider, furosemide (LASIX) 20 MG tablet Take 20 mg by mouth daily . Yes Historical Provider, hydroCHLOROthiazide (HYDRODIURIL) 25 MG tablet Take 25 mg by mouth daily . Yes Historical Provider, ibuprofen (ADVIL,MOTRIN) 200 MG tablet Take 200 mg by mouth every 6 (six) hours as needed for pain . Yes Historical Provider, lisinopril (PRINIVIL,ZESTRIL) 20 MG tablet Take 20 mg by mouth every evening . 06/27/15 Yes Historical Provider, montelukast (SINGULAIR) 10 mg tablet Take 10 mg by mouth daily . Yes Historical Provider, oxyCODONE-acetaminophen (PERCOCET) 10-325 mg per tablet Take 2 (two) tablets by mouth 3 (three) times a day (Days supply per fill: 30) M51.36 Start: 07/04/19. 07/04/19 08/03/19 Yes Ruby Boucher, YULIA promethazine (PHENERGAN) 25 MG tablet Take 25 mg by mouth every 6 (six) hours as needed for nausea. Yes Historical Provider, rOPINIRole (REQUIP) 2 MG tablet Take 2 mg by mouth 3 (three) times a day Reasons: Extreme Discomfort in Calves when Sitting or Lying Down. 12/11/16 Yes Historical Provider, sertraline (ZOLOFT) 100 MG tablet Take 100 mg by mouth daily . Yes Historical Provider, SUMAtriptan (IMITREX) 100 MG tablet Take 1 (one) tablet (100 mg total) by mouth as needed for migraine. 11/02/17 06/08/19 Yes Eyal Duron MD tiotropium (SPIRIVA) [address] 18 mcg into inhaler and inhale daily . Yes Historical Provider, traZODone (DESYREL) 50 MG tablet Take 50 mg by mouth daily . 09/15/18 Yes Historical Provider, HYDROmorphone 16 mg Tb24 Take 1 (one) tablet (16 mg total) by mouth once daily (Days supply per fill: 7) M96.1 . 01/22/19 02/21/19 Eyal Duron MD ibuprofen (ADVIL,MOTRIN) 800 MG tablet Take 1 (one) tablet (800 mg total) by mouth 2 (two) times a day. 05/26/18 07/25/18 Eyal uDron MD morphine (MS CONTIN) 30 MG 12 hr tablet Take 1 (one) tablet (30 mg total) by mouth 2 (two) times a day (Days supply per fill: 30) M15.9 Start: 01/27/19. 01/27/19 02/26/19 Eyal Duron MD NARCAN 4 mg/actuation [address] Administer 1 spray into one nostril for known or suspected opioid overdose. If patient worsens or does not respond, may repeat in 2-3 minutes. . 02/01/19 Eyal Duron MD omeprazole (PRILOSEC) 40 MG capsule Take 1 (one) capsule (40 mg total) by mouth daily. 09/04/18 09/04/19 Zac Ovalle MD oxyCODONE (ROXICODONE) 5 MG immediate release tablet 1-2 tablets every 4-6 hours as needed for pain. 02/28/18 Zoey Scherer CNP ranitidine (ZANTAC) 300 MG tablet Take 1 (one) tablet (300 mg total) by mouth nightly. 09/04/18 10/04/18 Zac Ovalle MD ROS: The following system(s) were reviewed and pertinent positives were noted in the HPI section: Constitutional, Eyes, ENT, CV, Resp, GI, , Neuro, Musculoskeletal, Skin, Endocrine, Hematalogial/Lymphatic and Psychiatric. Physical Examination: Vital Signs: BP 111/74 (BP Location: Right arm, Patient Position: Lying) Pulse 68 Temp 97.5 F (36.4 C) (Oral) Resp 12 Ht 5' 6 Wt 82.1 kg (181 lb) SpO2 92% BMI 29.21 kg/m CONSTITUTIONAL: well developed, adequately nourished; in no acute distress; CARDIOVASCULAR: Regular rate and rhythm; carotids are without bruits bilaterally; 2+ radial and pedal pulses bilaterally; NEUROLOGICAL EXAMINATION: HIGHER INTEGRATIVE FUNCTION :Awake, alert and oriented by name, time, place and condition. Good attention span and concentration, intact recent and remote memory,answers questions appropriatelly SPEECH: Normal, no dysarthria LANGUAGE: Normal, including repetition, naming, fluency, and comprehension. CRANIAL NERVES I: deferred II, III, IV, : Visual hess intact in all quadrants to confrontation. Pupils are equal, round and reactive to light and accommodation, Extraocular movements are intact in all directions with smooth pursuit. Gaze awoke horizontal, right beating nystagmus. Also torsional nystagmus with Rochester-Hallpike maneuver. Fundoscopic exam is normal without hemorrhages or evidence of papilledema; V: Trigeminal sensation is intact to light touch and pinprick. VII: Face is symmetric no facial weakness VIII: Hearing is intact to finger rub bilaterally. IX, X: IX, X: palate elevates equally, uvula at midline XI: Trapezius and sternocleidomastoid muscles strength 5/5 bilaterally XII: Tongue protrudes at midline; No fasciculations MOTOR: Normal bulk and tone. No tremor at rest. No pronator drift. Strength 5/5 in muscles of upper and lower extremities. REFLEXES: 1+, equal, symmetrical. SENSORY: normal to pin prick and light touch. TOES: downgoing on right and left COORDINATION: [id number] performed without ataxia and dysmetria. ROMBERG unable to assess, patient cannot stand without assistance GAIT: Unable to ambulate, patient cannot ambulate without assistance Results/Medications Reviewed 06/09/19 11:58 AM: Results from last 7 days Lab Units 06/09/19 0556 06/08/19 1102 SODIUM mmol/L 141 142 POTASSIUM mmol/L 3.7 3.1* CHLORIDE mmol/L 103 107 BUN mg/dL 16 12 CREATININE mg/dL 1.00 0.80 GLUCOSE mg/dL 92 115* CALCIUM mg/dL 9.5 -- Results from last 7 days Lab Units 06/09/19 0556 06/08/19 1102 WBC K/mcL 7.96 7.24 HGB g/dL 13.7 13.4 HCT % 42.2 40.1 PLT K/mcL 146* 135* Results from last 7 days Lab Units 06/08/19 1102 TROPONIN I ng/L <15 Invalid input(s): LABALBU Invalid input(s): GLUCR, KETONEUR, LEUKESUR Face to face counseling was provided regarding the etiology of above problems, as well as risk factors, natural course, prognosis, treatment options with associated risks and benefits.I explained test results to date, as well as additional diagnostic recommendations. I spent a total of 45 minutes in direct patient care, greater than 50% of the time was face to face counseling. Lili Freitas MD, ABPN, ABS General Neurology and Sleep Medicine. Occupational Therapy OCCUPATIONAL THERAPY EVALUATION NOTE Skilled Therapy Needs After Discharge Anticipate Resolution of Current Assessment Limitations Including: Mechanical Barriers Are Skilled Therapy Services Needed After Discharge: Yes Intensity of Skilled Therapy: 2-3 days per week Anticipated Duration of Skilled Therapy: Duration 7 - 10 days DME Recommendation: Wheeled walker DME Rationale: Patient's condition creates an increased risk of safety hazard without recommended equipment Rehab Potential: Good, For goals Patient reports no increased pain upon end of evaluation, left with all immediate needs met, and call light within reach. White board was updated and RN was notified of patient's mobility status. Outcomes Measures Prior Function Daily Activity: Raw Score: 24 Prior Function Daily Activity % Impaired: 0% functionally impaired AM-PAC Daily Activity: Raw Score: 19 AM-PAC Daily Activity % Impaired: 42.80% functionally impaired Occupational Therapy Assessment The patient presents with neurological impairment(s) in generalized debility which create performance deficits including strength, balance, activity tolerance and pain, safety, and pain intolerance. These performance impairments limit participation in grooming, LE dressing, bathing, toileting, home management, meal preparation, hobbies and functional mobility in the chosen occupational roles of premorbid level individual. The patient's co morbidities do affect patient performance in the above activities and roles. The patient's home setup is a barrier for return to prior level of function. The patient's awareness of own capacity and performance is a barrier to return to prior level of function. During the assessment, minimal to moderate modification of task was required and several treatment options were identified in the plan of care. This consultation required expanded review of the medical and therapy history. Activity Tolerance Activity Tolerance: Tolerates less than 10 min activity, no significant change in vital signs Therapy Precautions Orthotic Devices: No Weight Bearing Status: WFL General Rehab Precautions: Fall risk Cognition Overall Cognitive Status: Within Functional Limits Arousal/Alertness: Appropriate responses to stimuli Orientation Level: Oriented X4 Executive functioning: WFL Safety Judgment: Good awareness of safety precautions Problem Solving: Able to problem solve independently Attention: Attends to distracted environment Hearing Status: [facility] Social Interaction: Cooperative, Appropriate Skilled Intervention: Patient supine in bed upon OT arrival. RN agreeable to OT evaluation this date. Patient is able to complete bed mobility this date independently to sit EOB. Patient tolerates sitting EOB for approximately 5 minutes this date. Patient educated on safe hand placement on FWW for sit to stand transfers. Patient with good return demo, completing transfer CGA with gait belt in place. Patient with slight LOB in standing this date with good recovery. Patient return to sitting EOB and back to supine due to increased pain with headache. Patient able to return to bed independently. Patient resting with ice pack on head at end of session. ADL/IADL Feeding: Independent Meal Prep: Min Grooming : Contact guard, Min UE Bathing : Contact guard, Min LE Bathing : Contact guard, Min UE Dressing: Contact guard, Min LE Dressing: Contact guard, Min Toileting : Contact guard, Min Home Management: Min Bed Mobility Rolling: Independent Supine to Sit: Independent Sit to Supine: Independent Functional Transfers Sit to Stand: Contact guard Home Living Type of Home: House Home Layout: Two level, Bed/bath upstairs Home Equipment: Cane, Other (Comment)(Rollator) Additional Comments: Pt reports occasional use of rollator Prior Level of Function Level of [place]: Independent with ADLs and functional transfers, Needs assistance with homemaking Lives With: Spouse Receives Help From: Family ADL Assistance: Independent Homemaking Assistance: Needs assistance Past Medical History: Diagnosis Date Arthritis osteo Asthma 08/23/2014 Benign hypertension 04/01/2015 Cataract 08/23/2014 immature Chronic pain disorder rt foot, hx 4 foot fractures; calves of legs cause pain,muscle spasms Congestive heart failure (HCC) 10/13/2015 patient denies COPD (chronic obstructive pulmonary disease) (HCC) Depression Diarrhea Fibromyalgia, primary GERD (gastroesophageal reflux disease) patient denies History of cardiac cath 2005 normal reported by patient History of echocardiogram History of stress test 09/08/2015 Hypertension controlled Migraines Obesity Pneumonia x2 , had 2 pneumonia shots Restless legs syndrome Shoulder joint pain rt plan Arthroscopy rotator cuff repair Sleep apnea, obstructive unable to use cpap; recently received mouthpiece but not using Varicose veins of both lower extremities Past Surgical History: Procedure Laterality Date AR'SCOPY SHOULD SAD, SLAP, RCR, RESECT DISTAL CLAVICLE, BICEPS TENODESIS Right 11/04/2015 Procedure: AR'SCOPY RT SHOULD GREGORY, RCR, & BICEPS POSS OPEN; Surgeon: Jack Dave MD; Location: [facility] Main OR; Service: ARTHROPLASTY HIP TOTAL Right 02/27/2018 Procedure: RIGHT TOTAL HIP ARTHROPLASTY; Surgeon: Gabo Sears MD; Location: [facility] Main OR; Service: Orthopedic BACK SURGERY 2008,2002 x 2 Low back, BLADDER SUSPENSION bladder tie-up BRONCHOSCOPY CARDIAC CATHETERIZATION 08/2006 [facility] COLONOSCOPY FOOT SURGERY Right foot hammer, toes; 3 surg FOOT SURGERY Right hammer toes, fractuered foot;3 surg HYSTERECTOMY [facility] BSO Bladder suspension JOINT REPLACEMENT Right TKR KNEE SURGERY Left 2013 arthroscopic LAMINECTOMY DECOMP LUMBAR W/FUSION 4 OR MORE LVL N/A 11/08/2017 Procedure: HARDWARE REMOVAL L4-S1, DECOMPRESSION/FUSION L2-L4, PLIF, REINSTRUMENT L2-S1; Surgeon: Alejo Hummel MD; Location: [facility] Main OR; Service: Orthopedic LUNG SURGERY Right lower lobe; biopsy taken and nodule was benign NECK SURGERY 2008,2013 x 2 C5-6-7 anterior, 2nd included T1- C5-6-7 ROTATOR CUFF REPAIR Left TONSILLECTOMY VEIN SURGERY 2014 vein taken out in lower Left leg in [place] Dr. Abbos WISDOM TOOTH EXTRACTION For complete objective data, detailed plan of care and patient education refer to: OT EVALUATION flow sheet, OT TREATMENT flow sheet, patient Plan of Care, Plan of Care progress note, and Patient Education. This note stands as the current Discharge Summary upon patient discharge from the hospital or completion of Occupational Therapy Plan of Care. Physical Therapy Physical Therapy Plan of Care Certification Note Coded Admission Diagnosis Vertigo [R42] Non-intractable vomiting with nausea, unspecified vomiting type [R11.2] PT Functional Diagnosis: R42 Dizziness and giddiness PT Goals Multidisciplinary Problems (Active) Problem: Impaired Strength Dates: Start: 06/08/19 Description: Disciplines: PT Goal: PT- strengthening Dates: Start: 06/08/19 Expected End: 06/15/19 Description: Disregard Disciplines: PT Intervention: Education, Therapeutic exercise Frequency: PRN Dates: Start: 06/08/19 Description: Problem: Mobility - Impaired Dates: Start: 06/08/19 Description: Disciplines: PT Goal: PT- bed mobility Dates: Start: 06/08/19 Expected End: 06/15/19 Description: PT - Patient will perform bed mobility with independence to improve functional mobility and safety in preparation for discharge Disciplines: PT Goal: PT- sit to stand transfer Dates: Start: 06/08/19 Expected End: 06/15/19 Description: PT - Patient will perform sit to/from stand transfer with independence to improve functional mobility and safety in preparation for discharge Disciplines: PT Goal: PT- dynamic balance Dates: Start: 06/08/19 Expected End: 06/22/19 Description: PT - Patient will perform standing dynamic balance activities without device with contact guard x4 minutes to improve functional mobility and safety in preparation for discharge Disciplines: PT Goal: PT- ambulation Dates: Start: 06/08/19 Expected End: 06/22/19 Description: PT - Patient will ambulate 250 feet without device with independence to improve functional mobility and safety in preparation for discharge Disciplines: PT Goal: PT- stair climbing Dates: Start: 06/08/19 Expected End: 06/22/19 Description: PT - Patient will ascend and descend 1 flight of stairs with reciprocal technique with 1 rail with modified independence to improve functional mobility and safety in preparation for discharge Disciplines: PT Intervention: Education, Assistive device training Frequency: PRN Dates: Start: 06/08/19 Description: Intervention: Education, Bed mobility training Frequency: PRN Dates: Start: 06/08/19 Description: Intervention: Education, Balance training Frequency: PRN Dates: Start: 06/08/19 Description: REMINDER(s): Reinforce education provided by Physical Therapy related to balance training. Intervention: Education, Gait training Frequency: PRN Dates: Start: 06/08/19 Description: Intervention: Education, stair training Frequency: PRN Dates: Start: 06/08/19 Description: Intervention: Education, Therapeutic exercise Frequency: PRN Dates: Start: 06/08/19 Description: Intervention: Education, Transfer training Frequency: PRN Dates: Start: 06/08/19 Description: Frequency of Treatment (times per week): 1-2 times per day, 7 days per week This physical Therapy Plan of Care will be carried out until: 1.) The PT plan has been resolved or 2.) The patient is discharged from the acute care hospital Physical Therapy PHYSICAL THERAPY EVALUATION NOTE Skilled Therapy Needs After Discharge Anticipate Resolution of Current Assessment Limitations Including: Mechanical Barriers Are Skilled Therapy Services Needed After Discharge: Yes Intensity of Skilled Therapy: 2-3 days per week(Vestibular therapy) Anticipated Duration of Skilled Therapy: Duration 10 - 30 days DME Recommendation: None Rehab Potential: Good Pt presents with unstable blood pressures at this time. During the session the pt's blood pressure ranged from 200s/100s to 190s/90s. The pt also complained of headache. RN was notified. All pt needs met and call light in reach. RN notified of pt's current level of function and assistance. Outcomes Measures Prior Function - Basic Mobility Raw Score: 24 Points Prior Function - Basic Mobility % Impaired: 0% functionally impaired AM-PAC - Basic Mobility Raw Score: 15 Points AM-PAC - Basic Mobility % Impaired: 50.40% functionally impaired Physical Therapy Assessment History: The following factors influence the patient's participation in the PT plan of care: Personal factors: none Environmental factors: bedroom/bathroom on 2nd floor The following co-morbidities (from this admission or prior) influence the patient's participation in this plan of care: vertigo, low back pain Number of History elements affecting this patient's PT plan of care: 3 or more Examination of Body Systems: The patient presents with impairments of balance, vestibular function, activity tolerance, blood pressure regulation with activity. These impairments result in limitations of gait, functional transfers, stair-climbing, safety and activity tolerance. These impairments result in restrictions of household mobility, community mobility and leisure activities. Number of Body Systems elements affecting this patient's PT plan of care: 4 or more Clinical Presentation: The patient's clinical presentation for this PT evaluation is unstable as evidenced by current PT documentation. Activity Tolerance Activity Tolerance: Tolerates less than 10 min activity with changes in vital signs Therapy Precautions Orthotic Devices: No Weight Bearing Status: WFL General Rehab Precautions: Fall risk Balance Sitting Balance - Static: Sits without support for more than 30 seconds Sitting Balance - Dynamic: Moves / returns trunkal midpoint more than 2 inches in all planes Standing Balance - Static: Supports self with more than 50% effort using upper extremity, requires therapist assisstance Standing Balance - Dynamic: Moves / returns trunkal midpoint 1-2 inches in multiple planes Bed Mobility Rolling: Independent Supine to Sit: Independent Sit to Supine: Independent Transfers Sit to Stand: Contact guard Gait/Locomotion Gait Assistance: Mod Assistive Device: Other (Comment)(ROSALINO hand hold assist) Distance: 20 Feet Pattern: Step through Skilled Intervention: Pt ambulated an additional 20 feet with moderate assistance this visit Home Living Type of Home: House Home Layout: Two level, Bed/bath upstairs Home Equipment: Other (Comment), Cane(rollator) Additional Comments: Pt reports occasional use of rollator Prior Level of Function Level of [place]: Independent with ADLs and functional transfers, Needs assistance with homemaking Lives With: Spouse ADL Assistance: Independent Homemaking Assistance: Needs assistance Past Medical History: Diagnosis Date Arthritis osteo Asthma 08/23/2014 Benign hypertension 04/01/2015 Cataract 08/23/2014 immature Chronic pain disorder rt foot, hx 4 foot fractures; calves of legs cause pain,muscle spasms Congestive heart failure (HCC) 10/13/2015 patient denies COPD (chronic obstructive pulmonary disease) (HCC) Depression Diarrhea Fibromyalgia, primary GERD (gastroesophageal reflux disease) patient denies History of cardiac cath 2006 normal reported by patient History of echocardiogram History of stress test 09/08/2015 Hypertension controlled Migraines Obesity Pneumonia x2 , had 2 pneumonia shots Restless legs syndrome Shoulder joint pain rt plan Arthroscopy rotator cuff repair Sleep apnea, obstructive unable to use cpap; recently received mouthpiece but not using Varicose veins of both lower extremities Past Surgical History: Procedure Laterality Date AR'SCOPY SHOULD SAD, SLAP, RCR, RESECT DISTAL CLAVICLE, BICEPS TENODESIS Right 11/04/2015 Procedure: AR'SCOPY RT SHOULD GREGORY, RCR, & BICEPS POSS OPEN; Surgeon: Jack Dave MD; Location: [facility] Main OR; Service: ARTHROPLASTY HIP TOTAL Right 02/27/2018 Procedure: RIGHT TOTAL HIP ARTHROPLASTY; Surgeon: Gabo Sears MD; Location: [facility] Main OR; Service: Orthopedic BACK SURGERY 2008,2002 x 2 Low back, BLADDER SUSPENSION bladder tie-up BRONCHOSCOPY CARDIAC CATHETERIZATION 08/2006 [facility] COLONOSCOPY FOOT SURGERY Right foot hammer, toes; 3 surg FOOT SURGERY Right hammer toes, fractuered foot;3 surg HYSTERECTOMY CARLOS MANUEL BSO Bladder suspension JOINT REPLACEMENT Right TKR KNEE SURGERY Left 2013 arthroscopic LAMINECTOMY DECOMP LUMBAR W/FUSION 4 OR MORE LVL N/A 11/08/2017 Procedure: HARDWARE REMOVAL L4-S1, DECOMPRESSION/FUSION L2-L4, PLIF, REINSTRUMENT L2-S1; Surgeon: Alejo Hummel MD; Location: [facility] Main OR; Service: Orthopedic LUNG SURGERY Right lower lobe; biopsy taken and nodule was benign NECK SURGERY 2008,2013 x 2 C5-6-7 anterior, 2nd included T1- C5-6-7 ROTATOR CUFF REPAIR Left TONSILLECTOMY VEIN SURGERY 2014 vein taken out in lower Left leg in [place] Dr. Jesica JAVEDDOM TOOTH EXTRACTION For complete objective data, detailed plan of care and patient education refer to: PT EVALUATION flow sheet, PT TREATMENT flow sheet, patient Plan of Care, Plan of Care progress note, and Patient Education. This note stands as the current Discharge Summary upon patient discharge from the hospital or completion of Physical Therapy Plan of Care. Physical Therapy Physical Therapy Vestibular Note Impressions: R inner ear vestibular hypofunction due to acute peripheral vertigo, possibly caused by vestibular neuritis. The vertigo follows Keith's Law of Nystagmus. The pt currently has spontaneous nystagmus with primary gaze that is L beating and torsional. The nystagmus becomes more severe with gaze toward L. The pt also complains of tinnitus in both ears. She denies hearing loss. The vertigo started this morning when she woke up. There also may be a component of dizziness caused by unstable blood pressures. The pt's blood pressures ranged from 202/130s to 180s/90s during the session. The pt also complains of a headache. This does not appear to be BPPV. Balance Testing: The pt requires moderate assistance to prevent falls during ambulation due to vertigo and balance impairment Oculomotor Testing: Spontaneous nystagmus: positive for L beating and torsional nystagmus during primary gaze Gaze hold nystagmus: increased intensity of nystagmus noted with gaze toward L Treatment: Pt educated on the many causes of peripheral vertigo including BPPV and viral contributions. Etiology was also discussed. The pt will likely require outpatient vestibular therapy at discharge. Due to severity of vertigo, vestibular exercises were not discussed at this time. For complete Physical Therapy Vestibular assessment, treatment, and education, refer to the Vestibular flowsheet and Plan of Care documenation. This note and corresponding flowsheets stand as the Discharge Summary upon patient discharge from the hospital or completion of the Physical Therapy Plan of Care. documented in this encounter Quick Note - Doreen Curtis RN - 02/28/2018 5:09 PM EDTAssessment & Plan Note - Zoey Hathaway CNP - 02/28/2018 8:07 AM EDTUtilization Review - Kelsie Lowe RN - 02/27/2018 1:32 PM EDT Miscellaneous Notes (unrecog nized section and content) Double checked dc rx with Chelsea Case RN- oxycodone, oxycontin. Med teaching sheets given to pt. Reviewed avs with pt. Associated Problem(s): Hip osteoarthritis -S/P right JUAN -PT/OT -Pain control -DVT ppx- [facility] Utilization Review Notes ELECTIVE ADMISSION TEMPLATE DIAGNOSIS: Primary osteoarthritis of right hip NEED FOR SURGERY:Primary osteoarthritis of right hip DATE OF PROCEDURE: 02/27/18 PROCEDURE: RIGHT TOTAL HIP ARTHROPLASTY POST OP COMPLICATIONS:none DISPOSITION: TBD POST OP Formatting of this note may be different from the original. Operative Report Date of Service: 02/27/2018 Surgeon(s):Surgeon(s) and Role: * Gabo Sears MD - Primary NUCLEAR PLANT CONSTRUCTION WORKER: None Pre-Operative Diagnoses: Primary osteoarthritis of right hip [M16.11] Post-Operative Diagnoses: Primary osteoarthritis of right hip [M16.11] Procedure(s) performed: Procedure(s): RIGHT TOTAL HIP ARTHROPLASTY Implants: Implant Name Type Inv. Item Serial No. Rn Medicare Lot No. LRB No. Used Action CUP 52MM CLUSTER PAGAN TRIDENT HEMISPHERICAL - [id number] CUP 52MM CLUSTER PAGAN TRIDENT HEMISPHERICAL [place] [id number] Right 1 Implanted SCREW 6.5 X 25MM BONE CANC - [id number] SCREW 6.5 X 25MM BONE CANC [place] OR [id number] Right 1 Implanted SCREW 6.5 X 20MM BONE CANC - [id number] SCREW 6.5 X 20MM BONE CANC [place] OR [id number] Right 1 Implanted STEM 127DEG SZ5 FEM ACCOLADE II - [id number] STEM 127DEG SZ5 FEM ACCOLADE II [place] OR [id number] Right 1 Implanted INSERT 28MM FOR OD 48MM CUP ADM SIKHISM X3 - [id number] INSERT 28MM FOR OD 48MM CUP ADM SIKHISM X3 [place] OR [id number] Right 1 Implanted LINER 42MM E COCR MDM - [id number] LINER 42MM E COCR MDM [place] OR [id number] Right 1 Implanted HEAD 28MM/+0 FEM V40 BIOLOX DELTA - [id number] HEAD 28MM/+0 FEM V40 BIOLOX DELTA [place] OR [id number] Right 1 Implanted Specimen(s) removed: * No specimens in log * Operative findings: Degenerative Joint Disease Estimated Blood Loss: 300 mL Intra and Immediate Post-op Complications: none ANESTHESIOLOGIST, Anesthesiologist: Lee Rodriguez MD Type of Anesthesia used: General DRAIN: None TISSUE REMOVED OR ALTERED: Femoral head removed via standard resection. COMORBIDITIES: COPD HISTORY: The patient is a 62 y.o.-year old with progressive and debilitating hip pain secondary to Primary osteoarthritis of right hip [M16.11]. The patient has clinical and radiographic evidence of Primary osteoarthritis of right hip [M16.11] of the hip and has failed nonoperative management. The patient was deemed appropriate for a total hip arthroplasty. Risks, benefits and alternatives to surgical treatment were discussed in detail with the patient and the patient wished to proceed with the total hip arthroplasty. The patient was seen and thoroughly evaluated by a medical equipment technician preoperatively and was cleared for surgical intervention. SURGICAL PROCEDURE: The patient was identified in the preoperative holding area and the correct hip was identified and marked. IV antibiotics were administered. The patient was then brought to the operating room where intrathecal analgesia and a satisfactory level of anesthesia was obtained. A Michael catheter was inserted with standard sterile technique. The patient was then positioned in the lateral decubitus position with all bony prominences well-padded, an axillary roll placed under the proximal thorax and the pelvis held securely via the Peg Board positioner. The hip was then prepped and draped in standard sterile fashion with sageprep and chlorhexadine solution. A surgical time out was called and the correct patient, correct extremity, correct procedure, operating room team and personnel, and that IV antibiotics had been appropriately given were identified and documented. In addition, it was confirmed that the implant vendor human resources representative and appropriate implants were present and available. A lateral hip incision was made centered over the posterior aspect of the greater trochanter and in line with the proximal femur. The incision was carried down through the subcutaneous tissue with sharp dissection and hemostasis was obtained with Bovie electrocautery. The fascia quique was incised in line with the femur and the fibers of the gluteus saima were carefully split with blunt dissection. A Charnley retractor was then carefully placed retracting the fascia quique and gluteus saima fibers. The short external rotators were identified by gently sweeping the overlying adipose tissue posteriorly. The sciatic nerve was palpated well posterior to the surgical field and protected throughout the procedure. The interval between the piriformis tendon and the posterior edge of gluteus minimus was defined with a Samuel elevator. The gluteus minimus muscle was retracted with a single-prong Hohmann retractor, exposing the posterosuperior hip capsule. The short external rotators and capsule were divided at their insertion on the posterior trochanter, lateral femoral neck and superior acetabulum. The external rotators and capsule were tagged with #1 Ethibond suture, taken down as one posterior sleeve in a trapezoidal shape and served to retract and protect the sciatic nerve throughout the remainder of the case. The predislocation leg-length relationship was noted with the knees colinear and measured at the superimposed heels. The inferior hip capsule was released and the hip was carefully dislocated without difficulty via hip flexion, adduction and internal rotation. A Cobra retractor was placed around the medial femoral neck to protect the soft-tissue, the lesser trochanter was visualized and the femoral neck was osteotomized with an oscillating saw at the level predetermined via preoperative templating. The femoral head was then skewered with a threaded Steinmann pin and removed. The leg was placed in the position of sleep and the acetabulum exposed by carefully placing a C-retractor over the anterior wall just proximal to the equator and a adson-amy self retaining retractor holding the posterior capsule and abductors. Both retractors were placed in the interval outside the labrum, yet within the hip capsule. The pulvinar and labrum were excised with Bovie electrocautery to maintain hemostasis. The acetabulum was prepared with progressively larger hemispherical reamers in 2-mm increments down to bleeding subchondral bone to obtain a 1 mm interference fit and according to preoperative templating. The acetabulum was irrigated with pulsavac lavage and any exposed degenerative cysts were curetted and filled with autologous bone graft. The cementless hemispherical acetabular component was impacted into the socket in 20-25 degrees of anteversion and 40-45 degrees of abduction. Adequate press-fit and stability were obtained. Two divergent acetabular bone screws were then placed into the safe posterior-superior quadrant with standard technique. Final impaction of the acetabular component was carried out with the black-tipped impactor and a final check was performed through the dome hole to ensure adequate implant seating. A trial acetabular liner was inserted. Periacetabular osteophytes were then carefully and meticulously removed with a curved osteotome and Deangelo-Ordaz rongeur to eliminate extra-articular sources of bony impingement. The acetabular retractors were carefully removed and attention was turned to the femur. The Charnley retractor was removed and a femoral elevator was placed along the anterior femoral neck to expose the proximal femur. Cobra retractors were placed around the medial calcar and lateral trochanter to further expose the femur and protect the surrounding tissue. A box osteotome was used to remove any residual lateral femoral neck and a T-handled canal finder was used to enter the canal in line with the femur. The isthmus of femur was prepared according to the surgical technique and then final preparation was performed with progressively increasing sized broaches until adequate mediolateral fit and fill was obtained with accompanying axial and rotational stability of the trial broach. The trial head-neck assembly was attached to the broach and the hip was carefully reduced. The hip was assessed for leg- length based on the predislocation position of the heels with the knees colinear and felt to be satisfactory according to preoperative templating. The various offset necks and head lengths were utilized to optimize the myofascial tension and minimize extraarticular bony impingement while maintaining the appropriate leg-length, stability and range of motion. The hip was carefully dislocated with the aide of a T-handled bone hook and the appropriate head-neck trial was removed. The femoral component rotation was noted and observed to be approximately collinear with the knik femoral neck while optimizing anteversion as able to the limits of the anatomy without compromising implant stability. The broach was removed and the actual implant was brought onto the surgical field. The acetabular component was re-exposed with retractors and the shell was irrigated with saline lavage. The acetabular liner was impacted into place, inspected and observed to be locked securely into the metal shell. The femoral canal was again exposed with a femoral elevator and irrigated with Pulsavac lavage. The femoral stem was impacted in press-fit mode and obtained excellent axial and torsional stability. There was no intraoperative fracture or other complication noted with either manual palpation or visual inspection upon implant seating. A trial hip reduction was performed with a trial femoral head and found to demonstrate adequate stability. The final femoral head was then impacted onto the clean and dry Anna taper. The acetabular liner was irrigated with Pulsavac lavage and cleared of any debris. The hip was then carefully reduced. Leg length nondenominational appeared satisfactory based on the intraoperative landmarks to replicate the preoperative templating and was confirmed with the heel measurement on the table with the knees colinear. The hip was stable to full hip extension and external rotation to the limits of the anterior capsule and soft-tissues without any prosthetic impingement. The hip was stable in the position of sleep, stable in neutral rotation with the knee to the chest and stable with 90-degrees hip flexion and internal rotation to 70 degrees. Attention was turned to closure. The hip was irrigated with copious pulsatile antibiotic irrigation. The sleeve of short external rotators and capsule was reattached in anatomic fashion to the undersurface of the greater trochanter and posterior femur with #2 Ethibond through drill holes. The piriformis tendon was released from undue tension and reattached loosely to the posterior edge of the abductors with a #1 vicryl suture. The sciatic nerve was gently palpated along its length and found to be mobile and not under excessive tension or tethering. Adequate hemostasis was obtained with minimal active bleeding. A dilute betadine solution of 0.35% was poured into the hip joint and allow soak for 3 minutes. One liter of pulsavac lavage was then used to irrigate out the hip joint. A sterile solution of tranexamic acid (3gm in 50ccs 0.9NS) was poured into the hip joint and excess removed. Liposomal Bupivacaine and a premade periarticular injection of ropivacaine and solumedrol was injected into the soft tissues around the wound ensuring to stay away from the sciatic nerve. The fascia quique was closed with running #2 Stratafix monofilament barbed suture. The dermal layer was closed with 2-0 Stratafix suture and the skin was closed with a running 3-0 Stratafix suture and Dermabond. A sterile dressing was applied,pegs removed and knee immobilizer placed. The patient was placed in the supine position, extubated and transferred to the recovery room. The patient tolerated the procedure well without complications, all sponge and needle counts were correct at the end of the case and I was present during all critical aspects of the surgical procedure. Patient stated her repeat blood pressure was 156/92. Dr. Marroquin aware. Patient stated she did not take her blood pressure medicine this morning. Instructed to go home and take medication and to call PAT with repeat blood pressure. Patient verbalized understanding.in this encounter Associated Problem(s): Rectocele With a large enterocele, perinea seal. Following examination the patient and her sister and were counseled regarding these physical exam findings. It appears as though her previous bladder tie up is intact today. We discussed observation, pessary management, physical therapy, posterior repair with perineoplasty. She would like to proceed with a posterior repair and will contact the office for scheduling. documented in this encounter Problem: Pain Goal: Manage acute pain Outcome: Partially Met Goal: Manage chronic pain Outcome: Partially Met Goal: Reduced pain sensation Outcome: Partially Met Goal: Achievement of comfort function goal Outcome: Partially Met Problem: Falls, Risk of Goal: Absence of falls Outcome: Partially Met Problem: Actual or potential alteration in health Goal: Absence of healthcare acquired conditions Outcome: Partially Met Goal: Knowledge of Interdisciplinary Plan of Care Outcome: Partially Met Goal: Knowledge of Enviroment Outcome: Partially Met Problem: Actual or potential alteration in health Goal: Knowledge of Interdisciplinary Plan of Care Outcome: Met Plan of care reviewed with patient. Patient acknowledges understanding. Will update as needed. Problem: Actual or potential alteration in health Goal: Knowledge of Enviroment Outcome: Met Patient was educated to room, bathroom, call light use, and bed controls. Pt denies questions at this time. Problem: Pain Goal: Manage acute pain Outcome: Partially Met Goal: Manage chronic pain Outcome: Partially Met Goal: Reduced pain sensation Outcome: Partially Met Goal: Achievement of comfort function goal Outcome: Partially Met Problem: Falls, Risk of Goal: Absence of falls Outcome: Partially Met Came to see the patient at 4:45 PM, but she was out for testing, which was not something I recommended by me. Patient to be seen tomorrow. Problem: Falls, Risk of Goal: Absence of falls Outcome: Met Note: Fall risk precautions in place will continue to monitor documented in this encounter Betsey Alonso RN - 02/17/2018 9:00 AM Elizabeth Shearer RN - 11/03/2017 3:25 PM EST Nursing Notes (unrecognized section and content) Our goal here at [facility] is to make your time with us as comprehensive and as pleasant for you as possible. In order for that to happen we would ask you to be aware of the following guidelines and information: ? You are to have nothing to eat or drink after midnight the night before your surgery no mints, no gum, no water, no food. ? [facility] will call you the day prior to your surgery between 1-3pm with your surgery time and time of arrival. Please be sure to provide us with a good working phone number at which we can reach you. ? Report to the 1st floor Patient Registration inside the main doors the day of surgery (unless you are a in which case you go directly to the [facility] located on the 4th Floor). ? No tobacco or alcohol 24 hours prior to surgery. ? You must have someone to drive you home after your surgery. You will not be allowed to drive yourself home or use public transportation unless you have a friend or family member with you. ? Bathe/Shower with an antibacterial soap such as Dial. If you have been given a surgical soap such as Clorhexidine use as directed. Do not apply anything to the skin after bathing. ? Remove all jewelry and piercings prior to surgery. ? You may brush your teeth or rinse your mouth but do not swallow any water. ? Bring a case for any eyeglasses, contacts, dentures or hearing aids. ? Wear loose, comfortable clothing and low-heeled rubber soled shoes that have a back to them. ? Please use the main parking lot labeled Visitor Parking on the day of your surgery. If necessary you may be dropped off at the front entrance while your spinner box mondragon the car. Someone must accompany you to drive you home after surgery. ? Please bring a photo ID and insurance information with you. ? If staying overnight at the hospital, please bring any personal items you will require and any assistive devices such as C-PAP, hearing aids, etc. Please feel free to call Pre-Admission Testing with any questions you may have Tuesday 8 am - 3:30 pm at [phone]. in this encounter Patient Instructions for [facility]: Prior to surgery: Please be sure to wear loose, comfortable clothing and non-skid shoes Bring your health insurance information and a photo ID, as well as your Living Will or Durable Power of Fashion Consultant for Healthcare if it is available to you. Bring your cane/walker any applicable assistive device. If you currently use a CPAP, please bring this device with you on the day of surgery. Bring a list of your medications with the name of the medication, dose and how often you are taking it. Be sure to include herbal preparations and [id number] medications on this list. Do not eat or drink anything after midnight the night before your surgery/procedure. This includes water or liquids of any kind, food, gum, mints or hard candy. Carefully follow any instructions you were given by your Surgeon regarding further food restrictions. Do not drink any alcoholic beverages, smoke or chew tobacco during the 24 hours prior to your surgery/procedure Drink plenty of fluids the day prior to your procedure to maintain hydration but stop at midnight or bedtime On the morning of your surgery/procedure, you may brush your teeth but avoid swallowing water except for a sip with any recommended medications to be taken the morning of surgery. Bathe or shower the night before or early on the day of your surgery/procedure. Avoid the use of lotions, perfumes or powders. All nail serbian is to be removed from fingernails and toenails. Please be sure to remove all jewelry and body piercings and leave all valuables at home. You will receive a phone call between 3:30 and 7:30 pm the business day before your procedure to verify the time you should arrive at the hospital. Eyeglasses, hearing aids or dentures may be worn to the hospital. Bring your storage container for these items as you will be asked to remove them prior to your surgery/procedure. Please do not wear any contact lenses the day of your surgery/procedure. Parking at [facility] is free. Please park in the lot in front of the main lobby. Enter the Main Entrance where a Manager Client Liaison at the information desk will greet you and accompany you to the surgery waiting area. Children under the age of 16 are NOT permitted in the Pre/Post Operative areas. They are welcome to wait with a responsible adult in the surgery waiting area. Have you had a chance to view our online educational program called Ava? It is important that you watch it as this is a standard part of your surgery preparation process here at [facility]. It will provide you with additional important information that will help to make your surgery/procedure and recovery process as smooth as possible. CHG bottle/instructions given to patient and reviewed with patient. Patient verbalized understanding. After your surgery: If you are having an outpatient procedure and will be going home the same day, a responsible licensed adult must be available for transportation, and is expected to remain at the hospital for the duration of your surgery/procedure. You are NOT allowed to drive yourself home. in this encounter INFORMATION SOURCE (unrecogn ized section and content) DATE CREATED AUTHOR 04/20/2018 [facility] DATE CREATED AUTHOR AUTHOR'S ORGANIZ ATION 04/28/2018 [facility] DATE CREATED AUTHOR AUTHOR'S ORGANIZ ATION 05/25/2018 [facility] DATE CREATED AUTHOR AUTHOR'S ORGANIZ ATION 05/26/2018 [facility] DATE CREATED AUTHOR AUTHOR'S ORGANIZ ATION 10/07/2018 [facility] DATE CREATED AUTHOR AUTHOR'S ORGANIZ ATION 11/08/2020 [facility] DATE CREATED AUTHOR AUTHOR'S ORGANIZ ATION 08/01/2022 [facility] DATE CREATED AUTHOR AUTHOR'S ORGANIZ ATION 02/04/2023 [facility] DATE CREATED AUTHOR AUTHOR'S ORGANIZ ATION 04/12/2023 [facility] DATE CREATED AUTHOR AUTHOR'S ORGANIZ ATION 04/24/[address] [facility] DATE CREATED AUTHOR AUTHOR'S ORGANIZ ATION 04/12/2024 [facility] DATE CREATED AUTHOR AUTHOR'S ORGANIZ ATION 09/09/2024 [facility] DATE CREATED AUTHOR AUTHOR'S ORGANIZ ATION 09/22/2024 [facility] DATE CREATED AUTHOR AUTHOR'S ORGANIZ ATION 02/17/2025 [facility] DATE CREATED AUTHOR AUTHOR'S ORGANIZ ATION 05/02/2025 [facility] DATE CREATED AUTHOR AUTHOR'S ORGANIZ ATION 06/22/2025 [facility] DATE CREATED AUTHOR AUTHOR'S ORGANIZ ATION 08/12/2025 [facility] DATE CREATED AUTHOR AUTHOR'S ORGANIZ ATION 09/12/2025 [facility] Reason for Visit (unrecogniz ed section and content) Reason Comments Weakness Specialty Diagnoses / Procedures Referred By Contac t Referred To Contact Referral ID Status Reason Start Date Expiration Date Visits Re quested Visits Authorized [id number] 1 1 Reason Comments Pain Reason Comments Physical Therapy Specialty Diagnoses / Procedures Referred By Contac t Referred To Contact Physical Therapy Diagnoses Radiculopathy, lumbar region Osteoarthritis of left hip, unspecified osteoarthritis type System, Provider Not In Rehab Pt [address] [address] Referral ID Status Reason Start Date Expiration Date V isits Requested Visits Authorized [id number] Pending Review 05/02/2023 05/01/2024 1 99 Reason Comments Sinusitis New Patient/Believes Uvula hangs down to low Reason Comments Back Pain Status Reason Specialty Diagnoses / Procedures Referred By Contact Referred To Contact Pending Review Radiology Diagnoses Lumbosacral radiculopathy Procedures MR Lumbar Spine Without Contrast MR Lumbar Spine With And Without Contrast Trent Peguero MD [address] [place] [address] Reason Comments Follow-up Postlaminectomy synd mary of lumbar region Status Reason Specialty Diagnoses / Procedures Referred By Contact Referred To Contact Authorized Physical Therapy / Rehabilitation Diagnoses Low back pain, unspecified back pain laterality, unspecified chronicity, with sciatica presence unspecified Alejo Hummel MD [address] [place] [address] [address] [address] Status Reason Specialty Diagnoses / Procedures Referred By Contact Referred To Contact Closed Radiology Diagnoses Dizziness and giddiness Procedures MR IAC With And Without Contrast Giovanni Hodges MD [address] [facility] [address] [place] [address] Status Reason Specialty Diagnoses / Procedures Referred By Contact Referred To Contact Authorized Patient Preference Rehabilitation Diagnoses Balance disorder Bernard Bunn MD [address] [place] [address] [address]hab [address] [place] [address] Reason Comments proactive outreach Reason Comments Follow-up medication refill Reason Comments Establish Care Status Reason Specialty Diagnoses / Procedures Referred By Contact Referred To Contact Closed Specialty Services Required/Patien t's Best Interest Urogynecology Diagnoses 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 Ray Oliva MD [address] [place] [address] Keila James MD [address] [address] Reason Comments Procedure EMG BUE Status Reason Specialty Diagnoses / Procedures Referred By Contact Referred To Contact Closed Specialty Services Required/Patie nt's Best Interest Physical Medicine and Rehabilitation Diagnoses Cervical spinal stenosis Spinal stenosis, lumbar region, with neurogenic claudication Jose Yu MD [address] [place] [address] Dylan Savage MD [address] [place] [address] Status Reason Specialty Diagnoses / Procedures Referred By Contact Referred To Contact Authorized Rehabilitation Diagnoses Lumbar pain Jose Yu MD [address] [place] [address] [address] [address] Reason Comments Establish Care Neuropathic pain Status Reason Specialty Diagnoses / Procedures Referre d By Contact Referred To Contact Closed Neurology Diagnoses Restless leg syndrome Chronic neuropathic pain Harmony Gee MD [facility] [place] [address] Clarissa Luna MD [address] [address] Reason Comments Dizziness Nausea Emesis Status Reason Specialty Diagnoses / Procedures Referre d By Contact Referred To Contact Diagnoses Vertigo Non-intractable vomiting with nausea, unspecified vomiting type Status Reason Specialty Diagnoses / Procedures Referre d By Contact Referred To Contact Closed Radiology Diagnoses Spinal stenosis in cervical region Procedures MR Cervical Spine Without Contrast Harmony Gee MD [address] [place] [address] Status Reason Specialty Diagnoses / Procedures Referred By Contact Referred To Contact Closed Specialty Services Required/Patie nt's Best Interest Physical Medicine and Rehabilitation Diagnoses Burning pain Harmony Mejias, [place] [address] [place] [address] Dylan Savage MD [address] [place] [address] Reason Comments New patient New patient is havin g neck problems and wants to discuss surgery and is having back pain which radiates down her legs Status Reason Specialty Diagnoses / Procedures Referred By Contact Referred To Contact Closed Specialty Services Required/Patien t's Best Interest Spine Surgery Diagnoses Neck pain Harmony Gee MD [address] [place] [address] Jose Fraga MD [address] [place] [address] Reason Comments Pre-op Exam surgery clearance / neck surgery / dr fraga / 03/13/21 / no cardiac issues Status Reason Specialty Diagnoses / Procedures Referre d By Contact Referred To Contact Closed Cardiology Diagnoses Encounter for preprocedural cardiovascular examination Other cervical disc displacement, [place] [address] [place] [address] [facility] Cardio [facility] [address] [place] [phone] Status Reason Specialty Diagnoses / Procedures Re ferred By Contact Referred To Contact Diagnoses 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 [M50.20] Procedures CO ARTHRODESIS ANT INTERBODY INC DISCECTOMY, CERVICAL BELOW C2 CO ANTERIOR INSTRUMENTATION 2-3 VERTEBRAL SEGMENTS CO ALLOGRAFT FOR SPINE SURGERY ONLY STRUCTURAL Jose Fraga MD [address] [place] [address] Reason Comments Shortness of Breath Reason Comments Follow-up Patient is here for her cervical fusion post-op Reason Comments Chest Pain patient states that she has episodes of chest pain at the center of her heart-was in the hospital last month--states that she still isn't feeling good, mostly concerned about wheezing from SOB Reason Comments Follow-up unable to use duo ne b as she feels like she chokes, also feels like her inhalers worsens her SOB and blocks airway COPD Shortness of Breath with all activity, w ould also like a swallow test Reason Onset Date Comments Medication Refill 05/07/2021 Reason Comments acupuncture pain is near groin a segundo and down leg Reason Comments Results SLEEP Reason Comments Varicose Veins Dr Gee Results Leg Pain Both legs left worse than right Reason Comments Follow-up The patient is here for a 3 month follow up with X-ray. Reason Comments Follow-up The patient is here for a 3 month follow up for lumbar and cervical spine pain. Reason Comments Follow-up Patient is here for her lumbar follow up Reason Comments Follow-up 1 year. States she d oes get an occasional sharp pain, mid-chest area, lasting about 5 mins; cannot relate it to activity. Reason Comments Follow-up Patient is here toda y for her cervical CT results Reason Comments Pain Specialty Diagnoses / Procedures Referred By Malaika lambert Referred To Contact Diagnoses Osteoarthritis of both sacroiliac joints Procedures US IMAGING FOR ORTHO Raoul Lundy MD [address] [place] [address] [place] [address] Referral ID Status Reason Start Date Expiration Date V isits Requested Visits Authorized [id number] New Request 06/24/2022 07/19/2023 1 1 Reason Comments Procedure uro Reason Comments Pain Follow-up Reason Comments Pain Follow-up Specialty Diagnoses / Procedures Referred By Contac t Referred To Contact Diagnoses Osteoarthritis of both sacroiliac joints Pain of both sacroiliac joints Procedures US IMAGING FOR ORTHO Raoul Lundy MD [address] [facility] [place] [address] Referral ID Status Reason Start Date Expiration Date V isits Requested Visits Authorized [id number] New Request 10/04/2022 10/29/2023 1 1 Reason Comments Pain Tried to break a ea r of corn in half, patient tried ice packs, patient is not able to take NSAIDS Referral ID Status Reason Start Date Expiration Date V isits Requested Visits Authorized [id number] New Request 12/03/2022 12/28/2023 1 1 Reason Comments Follow-up Joint Injection Reason Comments Headache Right middle finger wont straighten out all the way states if she rubs and touch hand to hard its painful. Pt states she was sleep walking and fell down some stairs and now has a spot on her forehead that's tender and causes headaches on and off. Happened 2 months ago Referral ID Status Reason Start Date Expiration Date V isits Requested Visits Authorized [id number] New Request 02/04/2023 02/29/2024 1 1 Reason Comments Pain Follow-up Joint Injection Referral ID Status Reason Start Date Expiration Date V isits Requested Visits Authorized [id number] New Request 03/30/2023 04/23/2024 1 1 Reason Comments Pain Follow-up Joint Injection Reason Comments New Reason Comments Order - PT Reason Comments New Musculoskeletal Problem Pain Specialty Diagnoses / Procedures Referred By Contac t Referred To Contact Physical Therapy Diagnoses Radiculopathy, lumbar region Osteoarthritis of left hip, unspecified osteoarthritis type System, Provider Not In Rehab Pt [facility] [address] [place] [address] Referral ID Status Reason Start Date Expiration Date V isits Requested Visits Authorized [id number] Authorized 05/02/2023 05/01/2024 1 99 Specialty Diagnoses / Procedures Referred By Contac t Referred To Contact Physical Therapy Diagnoses Radiculopathy, lumbar region Osteoarthritis of left hip, unspecified osteoarthritis type Zafar Faith DO [address] [facility] [address] [place] [address] Rehab [facility] [address] [address] Referral ID Status Reason Start Date Expiration Date Visits Re quested Visits Authorized [id number] Closed 05/02/2023 05/01/2024 1 4 Specialty Diagnoses / Procedures Referred By Contac t Referred To Contact Referral ID Status Reason Start Date Expiration Date Visits Re quested Visits Authorized [id number] 1 1 Reason Comments Follow-up 2 WK POST OP FUSION Specialty Diagnoses / Procedures Referred By Contac t Referred To Contact Diagnoses 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 [M51.24] 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] S/P lumbar fusion [Z98.1] Procedures CO ARTHRODESIS LATERAL EXTRACAVITARY THORACIC CO ARTHRD ANT INTERBODY DECOMPRESS CERVICAL BELW C2 CO MEJIA FACETECTOMY & FORAMOTOMY 1 VRT SGM THORACIC CO MEJIA FACETECTOMY&FORAMOT 1 VRT SGM EA ADDL SGM CO ARTHRODESIS POSTERIOR/PSTLAT TQ 1NTRSPC THORACIC CO ARTHRODESIS PST/PSTLAT TQ 1NTRSPC EA ADDL NTRSPC CO POSTERIOR SEGMENTAL INSTRUMENTATION 7-12 VRT SEG CO REMOVAL POSTERIOR SEGMENTAL INSTRUMENTATION CO INSJ BIOMCHN DEV INTERVERTEBRAL DSC SPC W/ARTHRD CO AUTOGRAFT SPINE SURGERY LOCAL FROM SAME INCISION CO STEREOTACTIC COMPUTER ASSISTED PX SPINAL CO PERQ VERTEBROPLASTY UNI/BI INJX CERVICOTHORACIC Jose Fraga MD [address] [place] [address] Referral ID Status Reason Start Date Expiration Date Visits Re quested Visits Authorized [id number] 07/08/2023 1 1 Reason Comments Post-op 2 M lumbar fusion , x-rays 09-26-23 @ [facility] Reason Comments Fall Specialty Diagnoses / Procedures Referred By Contac t Referred To Contact Diagnoses Fall Intractable pain Ambulatory dysfunction Contusion of rib on right side, initial encounter Referral ID Status Reason Start Date Expiration Date Visits Re quested Visits Authorized [id number] 1 1 Specialty Diagnoses / Procedures Referred By Contac t Referred To Contact Physical Therapy Diagnoses Abnormality of gait Debility Pleuritic chest pain Harmony Gee MD [address] [place] [address] Rehab Pt [facility] [address] [place] [address] Referral ID Status Reason Start Date Expiration Date V isits Requested Visits Authorized [id number] Authorized 11/29/2023 11/28/2024 1 99 Reason Comments Pain Established patient is here today with Lumbar pain. Reason Comments Appointment Reason Comments Consult New Fax REf/Sleep Di sorder Breathing/Hinch Specialty Diagnoses / Procedures Referred By Malaika lambert Referred To Contact Pulmonology Diagnoses Sleep disorder breathing Harmony Gee MD [facility] [place] [address] Phone: tel: fax: Dilip Mckeon MD [address] [place] [address] Phone: tel: fax: Referral ID Status Reason Start Date Expiration Date V isits Requested Visits Authorized [id number] Closed Specialty Services Required/Gloria ent's Best Interest 11/26/2024 11/26/2025 1 1 Reason Comments Hypertension Pt states she checke d BP this morning and it was 200 Reason Comments Heart Problem Patient presents in the office to establish care-denies any current concerns Specialty Diagnoses / Procedures Referred By Malaika lambert Referred To Contact Cardiology Diagnoses Heart failure, unspecified HF chronicity, unspecified heart failure type (HCC) Bhanu Brice MD [address] [place] [address] Phone: tel: fax: [facility] [address] [place] [address] Phone: tel: fax: Referral ID Status Reason Start Date Expiration Date Visits Re quested Visits Authorized [id number] Closed 04/09/2025 04/09/2026 1 1 Reason Comments Medication Refill Reason Comments discuss medication Danis, Tiny, RN - 06/08/2019 2:55 PM EDTTiny Moscoso RN - 06/08/2019 2:21 PM EDTStoAndrez aviles PSA - 06/08/2019 2:08 PM EDTTiny Moscoso RN - 06/08/2019 1:44 PM EDT ED Notes (unrecognized secti on and content) Report given to LYNN Braga RN. Pt readjusted in bed, denies any other needs at this time. Call light in reach. This PSA got patient up to see how well she done walking patient was vary unsteady on feet. Pt reports dizziness remains, pt assisted to BSC with little difficulty. Meal tray ordered Med follow up, no adverse reaction noted. Pt reports nausea comes and goes. Pt assisted to BSC, pt notes some unsteadiness from getting up from bed and moving. Pt assisted back to bed, call light in reach. [facility] ED Physician Note: NAME: Matthew Perez 64 y.o. CSN: [id number] PCP: Harmony Gee MD ED Course / Medical Decision Making: Patient will be admitted for persistent vertigo. Patient was given Antivert, Valium and Zofran without significant relief. She is walked and she is still symptomatic. Patient has a negative head CT. Has a nonfocal neuro exam. Spoke with neurology. Will admit for further testing and treatment, with possible MRI to rule out posterior etiology. Spoke with patient and agrees with admission per . Clinical Impression: SNOMED CT(R) 1. Vertigo VERTIGO 2. Non-intractable vomiting with nausea, unspecified vomiting type NAUSEA AND VOMITING Disposition: Patient is being hospitalize to CVSD/ISD New Prescriptions This print group is not available in inpatient encounters. Please contact a camera systems engineer. History: Chief Complaint: Dizziness; Nausea; and Emesis HPI: The history was obtained from the patient. She is a 64 y.o. female who presents with a chief complaint of Dizziness; Nausea; and Emesis. HPI patient presents with concerns of vertigo. States that she woke up this morning feeling extremely dizzy. She tried to get up and her had to help her back to bed. She states that the room is spinning severely. States that she has had diaphoresis nausea and vomiting with it. Denies any chest pain or shortness of breath. No headache. Denies any problems with her ears or current ringing but has had ear ringing previously. Patient denies any recent illnesses. She denies any loss of function to her face arms or legs or any problems seeing speaking or swallowing otherwise. Patient is taken nothing for her symptoms prior to arrival. Denies any other issues. Patient still feels symptomatic but improved currently PMHx: Past Medical History: Diagnosis Date Arthritis osteo Asthma 08/23/2014 Benign hypertension 04/01/2015 Cataract 08/23/2014 immature Chronic pain disorder rt foot, hx 4 foot fractures; calves of legs cause pain,muscle spasms Congestive heart failure (HCC) 10/13/2015 patient denies COPD (chronic obstructive pulmonary disease) (HCC) Depression Diarrhea Fibromyalgia, primary GERD (gastroesophageal reflux disease) patient denies History of cardiac cath 2005 normal reported by patient History of echocardiogram History of stress test 09/08/2015 Hypertension controlled Migraines Obesity Pneumonia x2 , had 2 pneumonia shots Restless legs syndrome Shoulder joint pain rt plan Arthroscopy rotator cuff repair Sleep apnea, obstructive unable to use cpap; recently received mouthpiece but not using Varicose veins of both lower extremities PMSx: Past Surgical History: Procedure Laterality Date AR'SCOPY SHOULD SAD, SLAP, RCR, RESECT DISTAL CLAVICLE, BICEPS TENODESIS Right 11/04/2015 Procedure: AR'SCOPY RT SHOULD GREGORY, RCR, & BICEPS POSS OPEN; Surgeon: Jack Dave MD; Location: [facility] Main OR; Service: ARTHROPLASTY HIP TOTAL Right 02/27/2018 Procedure: RIGHT TOTAL HIP ARTHROPLASTY; Surgeon: Gabo Sears MD; Location: [facility] Main OR; Service: Orthopedic BACK SURGERY 2008,2002 x 2 Low back, BLADDER SUSPENSION bladder tie-up BRONCHOSCOPY CARDIAC CATHETERIZATION 08/2006 [facility] COLONOSCOPY FOOT SURGERY Right foot hammer, toes; 3 surg FOOT SURGERY Right hammer toes, fractuered foot;3 surg HYSTERECTOMY CARLOS MANUEL BSO Bladder suspension JOINT REPLACEMENT Right TKR KNEE SURGERY Left 2013 arthroscopic LAMINECTOMY DECOMP LUMBAR W/FUSION 4 OR MORE LVL N/A 11/08/2017 Procedure: HARDWARE REMOVAL L4-S1, DECOMPRESSION/FUSION L2-L4, PLIF, REINSTRUMENT L2-S1; Surgeon: Alejo Hummel MD; Location: [facility] Main OR; Service: Orthopedic LUNG SURGERY Right lower lobe; biopsy taken and nodule was benign NECK SURGERY 2008,2013 x 2 C5-6-7 anterior, 2nd included T1- C5-6-7 ROTATOR CUFF REPAIR Left TONSILLECTOMY VEIN SURGERY 2014 vein taken out in lower Left leg in [place] Dr. Jesica SANCHES TOOTH EXTRACTION FAM. Hx: Family History Problem Relation Age of Onset Hypertension Father Heart disease Father Diabetes Father Breast cancer Mother ; cancer went to brain, liver and lungs Brain cancer Mother Liver cancer Mother Lung cancer Mother Hypertension Sister Diabetes Sister Hypertension Other siblings Diabetes Other siblings No Known Problems Brother Surgical complications Neg Hx Anesthesia problems Neg Hx Clotting disorder Neg Hx Deep vein thrombosis Neg Hx Pulmonary embolism Neg Hx SOC. Hx: Social History Socioeconomic History Marital status: Spouse name: Derrek Number of children: Not on file Years of education: Not on file Highest education level: Not on file Occupational History Not on file Social Needs Financial resource strain: Not on file Food insecurity: Worry: Not on file Inability: Not on file Transportation needs: Medical: Not on file Non-medical: Not on file Tobacco Use Smoking status: Never Smoker Smokeless tobacco: Never Used Substance and Sexual Activity Alcohol use: Yes Alcohol/week: 0.0 standard drinks Comment: sometimes 10 a year; rare Drug use: No Sexual activity: Yes Partners: Male control/protection: None Lifestyle Physical activity: Days per week: Not on file Minutes per session: Not on file Stress: Not on file Relationships Social connections: Talks on phone: Not on file Gets together: Not on file Attends sabianist service: Not on file Active member of club or organization: Not on file Attends meetings of clubs or organizations: Not on file Relationship status: Not on file Other Topics Concern Not on file Social History Narrative Merged History Encounter MEDs: Previous Medications Medication Sig albuterol (PROVENTIL) 2.5 mg /3 mL (0.083 %) nebulizer solution Take 2.5 mg by nebulization daily as needed . budesonide-formoterol (SYMBICORT) 160-4.5 mcg/actuation inhaler Inhale 2 puffs 2 (two) times a day. clonazePAM (KLONOPIN) 1 MG tablet Take 1 mg by mouth 2 (two) times a day as needed . furosemide (LASIX) 20 MG tablet Take 20 mg by mouth daily . hydroCHLOROthiazide (HYDRODIURIL) 25 MG tablet Take 25 mg by mouth daily . ibuprofen (ADVIL,MOTRIN) 200 MG tablet Take 200 mg by mouth every 6 (six) hours as needed for pain . lisinopril (PRINIVIL,ZESTRIL) 20 MG tablet Take 20 mg by mouth every evening . montelukast (SINGULAIR) 10 mg tablet Take 10 mg by mouth daily . [START ON 07/04/2019] oxyCODONE-acetaminophen (PERCOCET) 10-325 mg per tablet Take 2 (two) tablets by mouth 3 (three) times a day (Days supply per fill: 30) M51.36 Start: 07/04/19. promethazine (PHENERGAN) 25 MG tablet Take 25 mg by mouth every 6 (six) hours as needed for nausea. rOPINIRole (REQUIP) 2 MG tablet Take 2 mg by mouth 3 (three) times a day Reasons: Extreme Discomfort in Calves when Sitting or Lying Down. sertraline (ZOLOFT) 100 MG tablet Take 100 mg by mouth daily . SUMAtriptan (IMITREX) 100 MG tablet Take 1 (one) tablet (100 mg total) by mouth as needed for migraine. tiotropium (SPIRIVA) [address] 18 mcg into inhaler and inhale daily . traZODone (DESYREL) 50 MG tablet Take 50 mg by mouth daily . HYDROmorphone 16 mg Tb24 Take 1 (one) tablet (16 mg total) by mouth once daily (Days supply per fill: 7) M96.1 . ibuprofen (ADVIL,MOTRIN) 800 MG tablet Take 1 (one) tablet (800 mg total) by mouth 2 (two) times a day. morphine (MS CONTIN) 30 MG 12 hr tablet Take 1 (one) tablet (30 mg total) by mouth 2 (two) times a day (Days supply per fill: 30) M15.9 Start: 01/27/19. NARCAN 4 mg/actuation [address] Administer 1 spray into one nostril for known or suspected opioid overdose. If patient worsens or does not respond, may repeat in 2-3 minutes. . omeprazole (PRILOSEC) 40 MG capsule Take 1 (one) capsule (40 mg total) by mouth daily. oxyCODONE (ROXICODONE) 5 MG immediate release tablet 1-2 tablets every 4-6 hours as needed for pain. ranitidine (ZANTAC) 300 MG tablet Take 1 (one) tablet (300 mg total) by mouth nightly. [DISCONTINUED] cephALEXin (KEFLEX) 500 MG capsule [DISCONTINUED] cinnamon bark 500 mg capsule daily . [DISCONTINUED] diphenoxylate-atropine (LOMOTIL) 2.5-0.025 mg per tablet 2 Unspecified . [DISCONTINUED] EASIVENT HOLDING CHAMBER inhaler [DISCONTINUED] garlic 1,000 mg cap daily . [DISCONTINUED] ibuprofen (ADVIL,MOTRIN) 800 MG tablet 1 Unspecified . [DISCONTINUED] ketorolac (TORADOL) 30 mg/mL (1 mL) injection 1 mL every 6 (six) hours . [DISCONTINUED] levoFLOXacin (LEVAQUIN) 500 MG tablet 1 Unspecified daily . [DISCONTINUED] montelukast (SINGULAIR) 10 mg tablet Take 10 mg by mouth. [DISCONTINUED] polyethylene glycol (MIRALAX) 17 gram powder [DISCONTINUED] potassium 99 mg Tab 1 Unspecified . [DISCONTINUED] sertraline (ZOLOFT) 50 MG tablet [DISCONTINUED] tiotropium (SPIRIVA WITH HANDIHALER) 18 mcg inhalation capsule Spiriva with HandiHaler 18 mcg and inhalation capsules INHALE THE ENTIRE CONTENTS OF 1 CAPSULE ONCE A DAY USING HANDIHALER DEVICE ALL: Allergies Allergen Reactions Ibuprofen GI Intolerance Lyrica [Pregabalin] Other (See Comments) nightmares Duloxetine GI Intolerance Nausea Metformin GI Intolerance ROS: Review of Systems Constitutional: Positive for diaphoresis. Negative for chills and fever. HENT: Negative for congestion and rhinorrhea. Eyes: Negative for pain and redness. Respiratory: Negative for cough and shortness of breath. Cardiovascular: Negative for chest pain and palpitations. Gastrointestinal: Positive for nausea and vomiting. Negative for abdominal pain, constipation and diarrhea. Genitourinary: Negative for difficulty urinating. Musculoskeletal: Negative for back pain, neck pain and neck stiffness. Skin: Negative for rash. Neurological: Positive for dizziness. Negative for syncope, weakness, light-headedness and headaches. All other systems reviewed and are negative. Positives and pertinent negatives as per HPI. All other systems were reviewed and are negative. Physical Exam: Patient Vitals for the past 24 hrs: BP Temp Temp src Pulse Resp SpO2 Height Weight 06/08/19 1551 (!) 157/101 93 (!) 24 95 % 06/08/19 1550 (!) 175/89 93 (!) 23 94 % 06/08/19 1547 (!) 177/119 84 12 94 % 06/08/19 1531 18 5' 6 81.5 kg (179 lb 10.8 oz) 06/08/19 1445 145/71 74 16 92 % 06/08/19 1415 (!) 158/80 77 17 92 % 06/08/19 1242 (!) 158/72 72 16 06/08/19 1102 (!) 169/94 06/08/19 1059 97.7 F (36.5 C) Oral 73 18 94 % 5' 6 81.6 kg (180 lb) Physical Exam Constitutional: She is oriented to person, place, and time. She appears well-developed and well-nourished. HENT: Head: Normocephalic and atraumatic. Right Ear: Hearing, tympanic membrane, external ear and ear canal normal. Left Ear: Hearing, tympanic membrane, external ear and ear canal normal. Eyes: Conjunctivae are normal. Right eye exhibits no discharge. Left eye exhibits no discharge. Right eye exhibits nystagmus. Left eye exhibits nystagmus. Neck: Normal range of motion and full passive range of motion without pain. Neck supple. Cardiovascular: Normal rate, regular rhythm and intact distal pulses. Exam reveals no gallop and no friction rub. No murmur heard. Pulmonary/Chest: Effort normal and breath sounds normal. No respiratory distress. Neurological: She is alert and oriented to person, place, and time. She has normal strength. She displays no tremor. No cranial nerve deficit or sensory deficit. She exhibits normal muscle tone. Coordination normal. Skin: Skin is warm and intact. No rash noted. Psychiatric: She has a normal mood and affect. Her behavior is normal. Nursing note and vitals reviewed. Laboratory & Radiological Imaging (if done): Labs Reviewed CHEM 7 - Abnormal; Notable for the following components: Result Value Potassium 3.1 (*) Glucose 115 (*) Anion Gap 8 (*) All other components within normal limits Narrative: The eGFR should be used for monitoring renal function only and not for medication dosing. CBC WITH AUTO DIFFERENTIAL - Abnormal; Notable for the following components: Platelets 135 (*) All other components within normal limits TSH WITH REFLEX FREE T4 - Normal MAGNESIUM LEVEL - Normal CBC AND DIFFERENTIAL Narrative: The following orders were created for panel order CBC w/ Diff. Procedure Abnormality Status --------- ------ CBC Auto Differential[[id number]] Abnormal Final result Please view results for these tests on the individual orders. TROPONIN XR Chest 1 View Final Result No acute cardiopulmonary disease. [facility] Workstation ID: [id number] CT Head Or Brain Without Contrast Final Result No evidence of acute intracranial structural abnormality. No cerebral hemorrhage, hematoma or signs of acute ischemia. [email or web address] Workstation ID: [id number] Echocardiogram complete (Results Pending) Procedures: Procedures Marcelino Blackmon MD ED Physician [facility] Emergency Department (Please note that portions of this note have been completed with a voice recognition software. Efforts were made to correct any errors, but occasionally words are mis-transcribed.) Marcelino Blackmon MD 06/08/[address] Blackmon at bedside. Bed: 14 Expected date: Expected time: Means of arrival: Comments: 272 EMS reports with pt c/o N/V. Pt c/o dizziness, better with eyes closed. documented in this encounter Scheduled Active and Recently Administ ered Medications (unrecognized section and content) Medication Order 03/21/2021 03/22/2021 03/23/2021 dexamethasone (DECADRON) injection 10 mg (COMPLETED) 10 mg, Intravenous, Once, On Tue03/23/21 at 2044, For 1 dose 2054 (Given - Provid er: Amandeep Prieto RN) ipratropium-albuteroL (DUO-NEB) 0.5-2.5 mg/3 ml nebulizer solution 3 mL (COMPLETED) 3 mL, Inhalation, Once (RT), On Tue03/23/21 at 2044, For 1 dose 2050 (Given - Provid er: Mimi Castañeda, HEATHER) PRN Medication Order 03/21/2021 03/22/2021 03/23/2021 sodium chloride (PF) (NS) flush 5 mL(Linked Group 1) 5 mL, Intravenous, As needed, line care, Starting on Tue03/23/21 at 2041 sodium chloride 0.9% (NS)(Linked Group 1) 0-150 mL/hr, Intravenous, As needed, To flush line after IV infusions when no maintenance IV ordered or a compatibility issue. Infuse 20ml at the same rate as the secondary infusion, Starting on Tue03/23/21 at 2041, Run as Primary IV. NOT intended for KVO. Linked Groups Order Group 1: Insert peripheral IV (COMPLETED) BEN, Once, On Tue03/23/21 at 2044, For 1 occurrence And Saline lock IV (CANCELED) BEN, Once, On Tue03/23/21 at 2044, For 1 occurrence And sodium chloride (PF) (NS) flush 5 mLJump to med 5 mL, Intravenous, As needed, line care, Starting on Tue03/23/21 at 2041 And sodium chloride 0.9% (NS)Jump to med 0-150 mL/hr, Intravenous, As needed, To flush line after IV infusions when no maintenance IV ordered or a compatibility issue. Infuse 20ml at the same rate as the secondary infusion, Starting on Tue03/23/21 at 2041
Run as Primary IV. NOT intended for KVO.
Scheduled Medication Order 10/26/2023 10/27/2023 10/28/2023 amLODIPine (NORVASC) tablet 10 mg 10 mg, Oral, Every morning, First dose on Tue10/26/23 at 0900, Hold for SBP <120 0810 (Given - Provider: Hailey Diop RN) 0844 (Given - Provider: Yasmine Koch, RN) 0833 (Given - Provider: Kiera Carlisle, JUAN) apixaban (ELIQUIS) tablet 5 mg 5 mg, Oral, 2 times daily, First dose (after last modification) on Urmila 10/27/23 at 2000, For atrial fibrillation only - If two of the following then reduce dose to 2.5 mg twice daily: 1.) Age greater than or equal to 80 2.) Weight less than or equal to 60 kg 3.) SCr greater than or equal to 1.5 mg/dL or ESRD, Indication: Risk of Recurrent DVT/PE 2000 (Given - Provider: Rafiq Canas RN) 0833 (Given - Provider: Kiera Carlisle RN) fluticasone furoate (ARNUITY ELLIPTA) 100 mcg/actuation inhaler 1 puff 1 puff, Inhalation, Daily (RT), First dose on Tue10/26/23 at 0900 0810 (Given - Provider: Hailey Diop RN) 0900 (Given - Provider: Yasmine Koch, JUAN) 1533 (Given - Provider: Jose R Goodrich LPN) HYDROmorphone (DILAUDID) injection 0.5 mg (COMPLETED) 0.5 mg, Intravenous, Once, On Tue10/26/23 at 0005, For 1 dose 0009 (Given - Provider: Khushbu Herron RN) HYDROmorphone (DILAUDID) injection 0.5 mg (COMPLETED) 0.5 mg, Intravenous, Once, On Tue10/26/23 at 0050, For 1 dose 0124 (Given - Provider: Khushbu Herron RN) HYDROmorphone (DILAUDID) injection 0.5 mg (COMPLETED) 0.5 mg, Intravenous, Once, On Tue10/26/23 at 0255, For 1 dose 0310 (Given - Provider: Katerina Norwood RN) lidocaine patch 1 patch 1 patch, Transdermal, Administer over 12 Hours, Daily, First dose on Tue10/26/23 at 0900, Apply to right ribs for 12 hours, then remove patch for 12 hours. 0810 (Patch Applied - Provider: Hailey Diop RN - Comment: right side rib)2009 (Patch Removed - Provider: Rafiq Canas RN) 0848 (Patch Applied - Provider: Yasmine Koch RN - Comment: left side back)2047 (Patch Removed - Provider: Rafiq Canas RN) 0833 (Patch Applied - Provider: Kiera Carlisle RN - Comment: right back)1622 (Due: Patch Removed - Provider: Discharge Provider, Automatic - Comment: Time automatically adjusted from order being discontinued) lisinopriL (PRINIVIL,ZESTRIL) tablet 20 mg 20 mg, Oral, Daily with lunch, First dose on Tue10/26/23 at 1200, Hold for SBP <120 1222 (Given - Provider: Orin Marley RN) 1314 (Given - Provider: Yasmine Koch, JUAN) 1128 (Given - Provider: Kiera Carlisle, JUAN) montelukast (SINGULAIR) tablet 10 mg 10 mg, Oral, Every morning, First dose on Tue10/26/23 at 0900 0809 (Given - Provider: Hailey Diop RN) 0844 (Given - Provider: Yasmine Koch RN) 0833 (Given - Provider: Kiera Carlisle RN) ondansetron (ZOFRAN) injection 4 mg (COMPLETED) 4 mg, Intravenous, Once, On Tue10/26/23 at 0000, For 1 dose 0008 (Given - Provider: Khushbu Herron RN) senna-docusate (SENNA-S) 8.6-50 mg per tablet 1 tablet 1 tablet, Oral, 2 times daily, First dose on Tue10/26/23 at 0900, NOT for abdominal surgery patients. Hold for loose stools. Do Not Crush or Chew if administering orally due to bitter taste. May be crushed if given via tube. 0809 (Given - Provider: Hailey Diop RN)2100 (Not Given - Provider: Rafiq Canas RN - Reason: Patient/family refused) 0844 (Given - Provider: Yasmine Koch RN)2100 (Not Given - Provider: Rafiq Canas RN - Reason: Patient/family refused) 0833 (Not Given - Provider: Kiera Carlisle RN - Reason: Patient/family refused) sertraline (ZOLOFT) tablet 50 mg 50 mg, Oral, Every morning, First dose on Tue10/26/23 at 0900 0810 (Given - Provider: Hailey Diop RN) 1314 (Given - Provider: Yasmine Koch, JUAN) 0833 (Given - Provider: Kiera Carlisle RN) sodium chloride (PF) (NS) flush 5 mL(Linked Group 1) 5 mL, Intravenous, Every 8 hours scheduled, First dose on Tue10/26/23 at 0615, Saline lock 0627 (Given - Provider: Ruby Melvin RN)1400 (Canceled Entry - Provider: Orin Marley RN)2200 (Given - Provider: Rafiq Canas RN) 0600 (Given - Provider: Rafiq Canas RN)1400 (Given - Provider: Yasmine Koch RN)2200 (Given - Provider: Rafiq Canas RN) 0600 (Given - Provider: Rafiq Canas RN)1400 (Not Given - Provider: Jose R Goodrich LPN - Reason: Loss of IV access - Comment: pt discahrging) PRN Medication Order 10/26/2023 10/27/2023 10/28/2023 acetaminophen (TYLENOL) tablet 650 mg 650 mg, Oral, Every 4 hours PRN, mild pain, fever 100.4 F or greater, headaches, Starting on Tue10/26/23 at 0528 1948 (Given - Provider: Rafiq Canas RN) albuterol inhaler 1 puff 1 puff, Inhalation, Every 6 hours PRN, wheezing, Starting on Tue10/26/23 at 0528, SPACER REQUIRED FOR ADMINISTRATION aluminum-magnesium hydroxide-simethicone (MAALOX PLUS) 200-200-20 mg/5 mL suspension 30 mL 30 mL, Oral, Every 4 hours PRN, indigestion, Starting on Tue10/26/23 at 0528 benzonatate (TESSALON) capsule 100 mg 100 mg, Oral, 3 times daily PRN, cough, Starting on Tue10/26/23 at 0528, DO NOT CRUSH OR CHEW. clonazePAM (KLONOPIN) tablet 1 mg 1 mg, Oral, 2 times daily PRN, anxiety, Starting on Tue10/26/23 at 0528, CATEGORY D HAZARDOUS DRUG use safe handling precautions. Use reference link to view PPE guidelines. Minimize crushing/splitting only to situations where clinically necessary. 0809 (Given - Provider: Hailey Diop RN) cyclobenzaprine (FLEXERIL) tablet 5 mg 5 mg, Oral, Every 8 hours PRN, muscle spasms, Starting on Tue10/26/23 at 0528, Do not administer if patient has POSS of 3 or 4, or RASS of -3, -4, or -5. 0809 (Given - Provider: Hailey Diop RN)1557 (Given - Provider: Karen Morin RN)2233 (Given - Provider: Rafiq Canas RN) 0844 (Given - Provider: Yasmine Koch RN)1717 (Given - Provider: Kiera Carlisle, JUAN) 0503 (Given - Provider: Rafiq Canas RN) HYDROmorphone (DILAUDID) injection 0.5 mg (CANCELED) 0.5 mg, Intravenous, Every 3 hours PRN, severe pain (7-10), Starting on Tue10/26/23 at 0424 0626 (Given - Provider: Ruby Melvin RN) HYDROmorphone (DILAUDID) injection 0.5 mg (CANCELED) 0.5 mg, Intravenous, Every 3 hours PRN, severe pain (7-10), Starting on U[place]ila 10/27/23 at 0914 1317 (Given - Provider: Yasmine Koch RN)1717 (Given - Provider: Kiera Carlisle, JUAN)1948 (Given - Provider: Rafiq Canas, JUAN)2317 (Given - Provider: Rafiq Canas RN) 0226 (Given - Provider: Rafiq Canas RN)0503 (Given - Provider: Rafiq Canas RN)0832 (Given - Provider: Kiera Carlisle, JUAN)1127 (Given - Provider: Kiera Carlisle RN) HYDROmorphone (DILAUDID) injection 1 mg (CANCELED) 1 mg, Intravenous, Every 3 hours PRN, severe pain (7-10), Starting on Tue10/26/23 at 1000 1019 (Given - Provider: Hailey Diop RN)1654 (Given - Provider: Nataly Gutierrez RN)2026 (Given - Provider: Rafiq Canas, JUAN) 0043 (Given - Provider: Rafiq Canas, RN)0344 (Given - Provider: Rafiq Canas, JUAN)0847 (Given - Provider: Yasmine Koch, JUAN) iopamidoL (ISOVUE-370) 370 mg iodine /mL (76 %) injection 75 mL (COMPLETED) 75 mL, Intravenous, Once in imaging, contrast, Starting on Tue10/26/23 at 0024, For 1 dose 0234 (Contrast Administered - Provider: Sudhir Ahuja, TECHNOLOGIST) melatonin tablet 3 mg 3 mg, Oral, Nightly PRN, Sleep, Starting on Tue10/26/23 at 0528 2233 (Given - Provider: Rafiq Canas RN) morphine injection 2 mg (CANCELED) 2 mg, Intravenous, Every 2 hour PRN, moderate pain (4-6), Starting on Tue10/26/23 at 0424 0921 (Given - Provider: Hailey Diop RN)1312 (Given - Provider: Karen Morin, JUAN)1556 (Given - Provider: Karen Morin, JUAN)2229 (Given - Provider: Rafiq Canas RN) naloxone (NARCAN) injection 0.1 mg(Linked Group 2) 0.1 mg, Intravenous, As needed, opioid reversal, For respiratory rate less than or equal to 8 per minute., Starting on Tue10/26/23 at 0424, Mix nalOXone (NARCAN) 0.4 mg (1mL) with 9 mL of Normal Saline to total 10 mL. Administer 0.1 mg (2.5mL) IV Push every 2 minutes until respiratory rate is 10 or greater. naloxone (NARCAN) injection 0.4 mg(Linked Group 2) 0.4 mg, Intravenous, As needed, opioid reversal, patient is pulseless, breathless, and unresponsive, Starting on Tue10/26/23 at 0424, Call a code first, then administer naloxone dose undiluted IV Push over 30 seconds. ondansetron (ZOFRAN) injection 4 mg(Linked Group 3) 4 mg, Intravenous, Every 6 hours PRN, nausea, vomiting, Starting on Tue10/26/23 at 0528, Use oral route first, if tolerated. ondansetron (ZOFRAN-ODT) disintegrating tablet 4 mg(Linked Group 3) 4 mg, Oral, Every 6 hours PRN, nausea, vomiting, Starting on Tue10/26/23 at 0528, Use oral route first, if tolerated. Formulation requires tablet remain in sealed package until immediately prior to dose being administered. oxyCODONE-acetaminophen (PERCOCET) 5-325 mg per tablet 2 tablet 2 tablet, Oral, Every 4 hours PRN, moderate to severe pain, Starting on Tue10/28/23 at 1305 1533 (Given - Provider: Jose R Goodrich LPN) prochlorperazine (COMPAZINE) injection 10 mg 10 mg, Intravenous, Every 6 hours PRN, nausea, vomiting, Starting on Tue10/26/23 at 0528, For 6 doses, If IV, give slow IV push at a rate not exceeding 5 mg/minute and remain lying down for 30 minutes to reduce risk of hypotension. If IM, inject deep into outer buttocks quadrant. rOPINIRole (REQUIP) tablet 2 mg 2 mg, Oral, 3 times daily PRN, restless legs, Starting on Tue10/26/23 at 0528 0810 (Given - Provider: Hailey Diop RN)2233 (Given - Provider: Rafiq Canas RN) 1416 (Given - Provider: Yamini Valderrama RN)1947 (Given - Provider: Rafiq Canas RN) 0833 (Given - Provider: Kiera Carlisle RN) sodium chloride (PF) (NS) 0.9 % contrast line flush 10 mL(Linked Group 4) 10 mL, Intravenous, Once in imaging, contrast, Per private branch exchange service advisor (Radiology) for line patency check prior to contrast administration, Starting on Tue10/26/23 at 0024, For 1 dose sodium chloride (PF) (NS) 0.9 % contrast line flush 80 mL(Linked Group 4) 80 mL, Intravenous, Once in imaging, contrast, Per private branch exchange service advisor (Radiology), Starting on Tue10/26/23 at 0024, For 1 dose, 30 mL BEFORE contrast administration 50 mL AFTER contrast administration sodium chloride (PF) (NS) flush 5 mL(Linked Group 5) 5 mL, Intravenous, As needed, line care, Starting on Tue10/25/23 at 2357 sodium chloride (PF) (NS) flush 5 mL(Linked Group 1) 5 mL, Intravenous, As needed, line care, Starting on Tue10/26/23 at 0528 sodium chloride 0.9% (NS)(Linked Group 5) 0-150 mL/hr, Intravenous, As needed, To flush line after IV infusions when no maintenance IV ordered or a compatibility issue. Infuse 20ml at the same rate as the secondary infusion, Starting on Tue10/25/23 at 2357, Run as Primary IV. NOT intended for KVO. sodium chloride 0.9% (NS)(Linked Group 1) 0-150 mL/hr, Intravenous, As needed, To flush line after IV infusions when no maintenance IV ordered or a compatibility issue. Infuse 20ml at the same rate as the secondary infusion, Starting on Tue10/26/23 at 0528, Run as Primary IV. NOT intended for KVO. Linked Groups Order Group 1: Saline lock IV (CANCELED) Routine, Continuous, Starting on Tue10/26/23 at 0529, Until Specified And sodium chloride (PF) (NS) flush 5 mLJump to med 5 mL, Intravenous, As needed, line care, Starting on Tue10/26/23 at 0528 And sodium chloride (PF) (NS) flush 5 mLJump to med 5 mL, Intravenous, Every 8 hours scheduled, First dose on Tue10/26/23 at 0615
Saline lock
And sodium chloride 0.9% (NS)Jump to med 0-150 mL/hr, Intravenous, As needed, To flush line after IV infusions when no maintenance IV ordered or a compatibility issue. Infuse 20ml at the same rate as the secondary infusion, Starting on Tue10/26/23 at 0528
Run as Primary IV. NOT intended for KVO.
Group 2: naloxone (NARCAN) injection 0.1 mgJump to med 0.1 mg, Intravenous, As needed, opioid reversal, For respiratory rate less than or equal to 8 per minute., Starting on Tue10/26/23 at 0424
Mix nalOXone (NARCAN) 0.4 mg (1mL) with 9 mL of Normal Saline to total 10 mL. Administer 0.1 mg (2.5mL) IV Push every 2 minutes until respiratory rate is 10 or greater.
And Notify physician (CANCELED) STAT, Until discontinued, Starting on Tue10/26/23 at 0425, Until Specified
Respiratory rate less than: 8
For respiratory rate less than or equal to 8, notify physician and/or appropriate staff for additional orders. And naloxone (NARCAN) injection 0.4 mgJump to med 0.4 mg, Intravenous, As needed, opioid reversal, patient is pulseless, breathless, and unresponsive, Starting on Tue10/26/23 at 0424
Call a code first, then administer naloxone dose undiluted IV Push over 30 seconds.
Group 3: ondansetron (ZOFRAN-ODT) disintegrating tablet 4 mgJump to med 4 mg, Oral, Every 6 hours PRN, nausea, vomiting, Starting on Tue10/26/23 at 0528
Use oral route first, if tolerated. Formulation requires tablet remain in sealed package until immediately prior to dose being administered.
Or ondansetron (ZOFRAN) injection 4 mgJump to med 4 mg, Intravenous, Every 6 hours PRN, nausea, vomiting, Starting on Tue10/26/23 at 0528
Use oral route first, if tolerated.
Group 4: sodium chloride (PF) (NS) 0.9 % contrast line flush 10 mLJump to med 10 mL, Intravenous, Once in imaging, contrast, Per private branch exchange service advisor (Radiology) for line patency check prior to contrast administration, Starting on Tue10/26/23 at 0024, For 1 dose And sodium chloride (PF) (NS) 0.9 % contrast line flush 80 mLJump to med 80 mL, Intravenous, Once in imaging, contrast, Per private branch exchange service advisor (Radiology), Starting on Tue10/26/23 at 0024, For 1 dose
30 mL BEFORE contrast administration 50 mL AFTER contrast administration
Group 5: Insert peripheral IV (COMPLETED) BEN, Once, On Tue10/26/23 at 0000, For 1 occurrence And Saline lock IV (CANCELED) BEN, Once, On Tue10/26/23 at 0000, For 1 occurrence And sodium chloride (PF) (NS) flush 5 mLJump to med 5 mL, Intravenous, As needed, line care, Starting on Tue10/25/23 at 2357 And sodium chloride 0.9% (NS)Jump to med 0-150 mL/hr, Intravenous, As needed, To flush line after IV infusions when no maintenance IV ordered or a compatibility issue. Infuse 20ml at the same rate as the secondary infusion, Starting on Tue10/25/23 at 2357
Run as Primary IV. NOT intended for KVO.
Care Teams (unrecognized sec tion and content) Paper Bag Press Operator Relationship Specialty Start Date End Date Harmony Gee MD [address] [place] [address] 24793 PCP - General Internal Medicine 10/31/17 Harmony Gee MD [address] [place] [address] 02259 Internal Medicine 08/22/15 Paper Bag Press Operator Relationship Specialty Start Date End Date Harmony Gee MD [address] [place] [address] 92874 PCP - General Internal Medicine 10/31/17 Harmony Gee MD [address] [place] [address] 21039 Internal Medicine 08/22/15 Paper Bag Press Operator Relationship Specialty Start Date End Date Harmony Gee MD [address] [place] [address] 13538 PCP - General Internal Medicine 10/31/17 Harmony Gee MD [address] [place] [address] 01421 Internal Medicine 08/22/15 Paper Bag Press Operator Relationship Specialty Start Date End Date Harmony Gee MD [address] [place] [address] 97305 PCP - General Internal Medicine 10/31/17 Harmony Gee MD [address] [place] [address] 60012 Internal Medicine 08/22/15 Paper Bag Press Operator Relationship Specialty Start Date End Date Harmony Gee MD [address] [place] [address] 15788 PCP - General Internal Medicine 10/31/17 Harmony Gee MD [address] [place] [address] 79566 Internal Medicine 08/22/15 Paper Bag Press Operator Relationship Specialty Start Date End Date Harmony Gee MD [address] [place] [address] 12325 PCP - General Internal Medicine 10/31/17 Harmony Gee MD [address] [place] [address] 16738 Internal Medicine 08/22/15 Paper Bag Press Operator Relationship Specialty Start Date End Date Harmony Gee MD [address] [place] [address] 24450 PCP - General Internal Medicine 10/31/17 Harmony Gee MD [address] [place] [address] 07973 Internal Medicine 08/22/15 Paper Bag Press Operator Relationship Specialty Start Date End Date Harmony Gee MD [address] [place] [address] 24006 PCP - General Internal Medicine 08/14/18 Paper Bag Press Operator Relationship Specialty Start Date End Date Harmony Gee MD [address] [place] [address] 12103 PCP - General Internal Medicine 08/14/18 Paper Bag Press Operator Relationship Specialty Start Date End Date Harmony Gee MD [address] [place] [address] 55918 PCP - General Internal Medicine 08/14/18 Paper Bag Press Operator Relationship Specialty Start Date End Date Harmony Gee MD [address] [place] [address] 48951 PCP - General Internal Medicine 10/31/17 Harmony Gee MD [address] [place] [address] 18033 Internal Medicine 08/22/15 Paper Bag Press Operator Relationship Specialty Start Date End Date Harmony Gee MD [address] [place] [address] 24943 PCP - General Internal Medicine 10/31/17 Harmony Gee MD [address] [place] [address] 46767 Internal Medicine 08/22/15 Paper Bag Press Operator Relationship Specialty Start Date End Date Harmony Gee MD [address] [place] [address] 09193 PCP - General Internal Medicine 08/14/18 Paper Bag Press Operator Relationship Specialty Start Date End Date Harmony Gee MD [address] [place] [address] 79977 PCP - General Internal Medicine 08/14/18 Paper Bag Press Operator Relationship Specialty Start Date End Date Harmony Gee MD [address] [place] [address] 61829 PCP - General Internal Medicine 08/14/18 Paper Bag Press Operator Relationship Specialty Start Date End Date Harmony Gee MD [address] [place] [address] 16610 PCP - General Internal Medicine 10/31/17 [place] [address] [place] [address] 24240 Internal Medicine 08/22/15 Paper Bag Press Operator Relationship Specialty [place] [address] [place] [address] [place] [address] PCP - General Internal Medicine 08/14/18 Paper Bag Press Operator Relationship Specialty Start Date End Date Harmony Gee MD [address] [place] [address] [place] [address] PCP - General Internal Medicine 08/14/18 Paper Bag Press Operator Relationship Specialty Start Date End Date Harmony Gee MD [address] [place] [address] [place] [address] PCP - General Internal Medicine 10/31/17 Harmony Gee MD [address] [place] [address] [place] [address] Internal Medicine 08/22/15 Paper Bag Press Operator Relationship Specialty [place] [address] [place], [place] [address] [place] [address] PCP - General Internal Medicine 08/14/18 Paper Bag Press Operator Relationship Specialty [place] [address] [place], [place] [address] [place] [address] PCP - General Internal Medicine 08/14/18 Paper Bag Press Operator Relationship Specialty [place] [address] [place], [place] [address] [place] [address] PCP - General Internal Medicine 08/14/18 Paper Bag Press Operator Relationship Specialty [place] [address] [place] [address] [place] [address] PCP - General Internal Medicine 08/14/18 Paper Bag Press Operator Relationship Specialty Start Date End Date Harmony Gee MD [facility] [place], [place] [phone] PCP - General Internal Medicine 08/14/18 Paper Bag Press Operator Relationship Specialty Start Date End Date David Sylvester [address] [place] [phone] PCP - General 06/24/08 Paper Bag Press Operator Relationship Specialty Start Date End Date David Sylvester [address] [place] [phone] PCP - General 06/24/08 Paper Bag Press Operator Relationship Specialty Start Date End Date Harmony Gee MD [address] [place] [address] 30408 PCP - General Internal Medicine 10/31/17 Harmony Gee MD [address] [place] [address] 73463 Internal Medicine 08/22/15 Paper Bag Press Operator Relationship Specialty Start Date End Date David Sylvester [address] [place] [phone] PCP - General 06/24/08 Paper Bag Press Operator Relationship Specialty Start Date End Date Harmony Gee MD [address] [place] [address] 74440 PCP - General Internal Medicine 10/31/17 Harmony Gee MD [address] [place] [address] 05387 Internal Medicine 08/22/15 Paper Bag Press Operator Relationship Specialty Start Date End Date Harmony Gee MD [address] [place] [address] 05136 PCP - General Internal Medicine 10/31/17 Harmony Gee MD [address] [place] [address] 88595 Internal Medicine 08/22/15 Paper Bag Press Operator Relationship Specialty Start Date End Date Harmony Gee MD [address] [place] [address] 77730 PCP - General Internal Medicine 10/31/17 Harmony Gee MD [address] [place] [address] 77265 Internal Medicine 08/22/15 Paper Bag Press Operator Relationship Specialty Start Date End Date Harmony Gee MD [address] [place] [address] 71243 PCP - General Internal Medicine 10/31/17 Harmony Gee MD [address] [place] [address] 95479 Internal Medicine 08/22/15 Paper Bag Press Operator Relationship Specialty Start Date End Date Harmony Gee MD [address] [place] [address] 80544 PCP - General Internal Medicine 10/31/17 Harmony Gee MD [address] [place] [address] 05478 Internal Medicine 08/22/15 Paper Bag Press Operator Relationship Specialty Start Date End Date Harmony Gee MD [address] [place] [address] 79809 PCP - General Internal Medicine 10/31/17 Harmony Gee MD [address] [place] [address] 08126 Internal Medicine 08/22/15 Paper Bag Press Operator Relationship Specialty Start Date End Date Harmony Gee MD [address] [place] [address] 80686 PCP - General Internal Medicine 10/31/17 Harmony Gee MD [address] [place] [address] 90044 Internal Medicine 08/22/15 Paper Bag Press Operator Relationship Specialty Start Date End Date Harmony Gee MD [address] [place] [address] 34846 PCP - General Internal Medicine 10/31/17 Harmony Gee MD [address] [place] [address] 02580 Internal Medicine 08/22/15 Paper Bag Press Operator Relationship Specialty Start Date End Date Harmony Gee MD [address] [place] [address] 27654 PCP - General Internal Medicine 10/31/17 Harmony Gee MD [address] [place] [address] 30431 Internal Medicine 08/22/15 Paper Bag Press Operator Relationship Specialty Start Date End Date Harmony Gee MD [address] [place] [address] 06880 PCP - General Internal Medicine 10/31/17 Harmony Gee MD [address] [place] [address] 25285 Internal Medicine 08/22/15 Paper Bag Press Operator Relationship Specialty Start Date End Date Harmony Gee MD [address] [place] [address] 66515 PCP - General Internal Medicine 10/31/17 Harmony Gee MD [address] [place] [address] 34669 Internal Medicine 08/22/15 Paper Bag Press Operator Relationship Specialty Start Date End Date Harmony Gee MD [address] [place] [address] 89046 PCP - General Internal Medicine 10/31/17 Harmony Gee MD [address] [place] [address] 85585 Internal Medicine 08/22/15 Paper Bag Press Operator Relationship Specialty Start Date End Date Harmony Gee MD [address] [place] [address] 73706 PCP - General Internal Medicine 10/31/17 Harmony Gee MD [address] [place] [address] 60577 Internal Medicine 08/22/15 Paper Bag Press Operator Relationship Specialty Start Date End Date Harmony Gee MD [address] [place] [address] 52051 PCP - General Internal Medicine 10/31/17 Harmony Gee MD [address] [place] [address] 91320 Internal Medicine 08/22/15 Paper Bag Press Operator Relationship Specialty Start Date End Date Harmony Gee MD [address] [place] [address] 98040 PCP - General Internal Medicine 10/31/17 Harmony Gee MD [address] [place] [address] 24519 Internal Medicine 08/22/15 Paper Bag Press Operator Relationship Specialty Start Date End Date Harmony Gee MD [address] [place] [address] 60698 PCP - General Internal Medicine 10/31/17 Harmony Gee MD [address] [place] [address] 16082 Internal Medicine 08/22/15 Paper Bag Press Operator Relationship Specialty Start Date End Date Harmony Gee MD [address] [place] [address] 16698 PCP - General Internal Medicine 10/31/17 Harmony Gee MD [address] [place] [address] 56942 Internal Medicine 08/22/15 Paper Bag Press Operator Relationship Specialty Start Date End Date Harmony Gee MD [address] [place] [address] 25966 PCP - General Internal Medicine 10/31/17 Harmony Gee MD [address] [place] [address] 70023 Internal Medicine 08/22/15 Paper Bag Press Operator Relationship Specialty Start Date End Date Harmony Gee MD [address] [place] [address] 72912 PCP - General Internal Medicine 10/31/17 Harmony Gee MD [address] [place] [address] 48295 Internal Medicine 08/22/15 Paper Bag Press Operator Relationship Specialty Start Date End Date Harmony Gee MD [address] [place] [address] 93386 PCP - General Internal Medicine 10/31/17 Harmony Gee MD [address] [place] [address] 44563 Internal Medicine 08/22/15 Paper Bag Press Operator Relationship Specialty Start Date End Date Harmony Gee MD [address] [place] [address] 48938 PCP - General Internal Medicine 10/31/17 Harmony Gee MD [address] [place] [address] 62792 Internal Medicine 08/22/15 Paper Bag Press Operator Relationship Specialty Start Date End Date Harmony Gee MD [address] [place] [address] 74438 PCP - General Internal Medicine 10/31/17 Harmony Gee MD [address] [place] [address] 04746 Internal Medicine 08/22/15 Paper Bag Press Operator Relationship Specialty Start Date End Date Harmony Gee MD [address] [place] [address] 06296 PCP - General Internal Medicine 10/31/17 Harmony Gee MD [address] [place] [address] 46354 Internal Medicine 08/22/15 Paper Bag Press Operator Relationship Specialty Start Date End Date Harmony Gee MD [address] [place] [address] 09326 PCP - General Internal Medicine 10/31/17 Harmony Gee MD [address] [place] [address] 09327 Internal Medicine 08/22/15 Paper Bag Press Operator Relationship Specialty Start Date End Date Harmony Gee MD [address] [place] [address] 05154 PCP - General Internal Medicine 10/31/17 Harmony Gee MD [address] [place] [address] 23694 Internal Medicine 08/22/15 Paper Bag Press Operator Relationship Specialty Start Date End Date Harmony Gee MD [address] [place] [address] 56698 PCP - General Internal Medicine 10/31/17 Harmony Gee MD [address] [place] [address] 44051 Internal Medicine 08/22/15 Paper Bag Press Operator Relationship Specialty Start Date End Date Harmony Gee MD [address] [place] [address] [phone] PCP - General Internal Medicine 10/31/17 Harmony Gee MD [address] [place] [address] [phone] Internal Medicine 08/22/15 Team Status: Active Member Role Status Dates No Primary Care Physician Primary Care Provider Active Team Status: Inactive Member Role Status Dates No Primary Care Physician Primary Care Provider Active Dr. Con Farr MD Attending Provider, Referring Pr ovider Active Paper Bag Press Operator Relationship Specialty Start Date End Date Harmony Gee MD [address] [place] [address] [phone] PCP - General Internal Medicine 10/31/17 Harmony Gee MD [address] [place] [address] [phone] Internal Medicine 08/22/15 Paper Bag Press Operator Relationship Specialty Start Date End Date David Sylvester [address] [place] [phone] PCP - General 06/24/08 Paper Bag Press Operator Relationship Specialty Start Date End Date David Sylvester [address] [place] [phone] PCP - General 06/24/08 Paper Bag Press Operator Relationship Specialty Start Date End Date David Sylvester MD [address] [place] [phone] PCP - General 06/24/08 Paper Bag Press Operator Relationship Specialty Start Date End Date Harmony Gee MD [address] [place] [address] [phone] PCP - General Internal Medicine 10/31/17 Harmony Gee MD [address] [place] [address] 50884 Internal Medicine 08/22/15 Paper Bag Press Operator Relationship Specialty Start Date End Date Harmony Gee MD [address] [place] [address] 52208 PCP - General Internal Medicine 10/31/17 Harmony Gee MD [address] [place] [address] [id number] Internal Medicine 08/22/15 Paper Bag Press Operator Relationship Specialty Start Date End Date Harmony Gee MD [address] [place] [address] 64119 PCP - General Internal Medicine 10/31/17 Harmony Gee MD [address] [place] [address] 93776 Internal Medicine 08/22/15 Paper Bag Press Operator Relationship Specialty Start Date End Date Harmony Gee MD [address] [place] [address] 56467 PCP - General Internal Medicine 10/31/17 Harmony Gee MD [address] [place] [address] 02712 Internal Medicine 08/22/15 Paper Bag Press Operator Relationship Specialty Start Date End Date Harmony Gee MD [address] [place] [address] 27898 PCP - General Internal Medicine 10/31/17 Harmony Gee MD [address] [place] [address] 23373 Internal Medicine 08/22/15 Paper Bag Press Operator Relationship Specialty Start Date End Date Harmony Gee MD [address] [place] [address] 35417 PCP - General Internal Medicine 10/31/17 Harmony Gee MD [address] [place] [address] 53859 Internal Medicine 08/22/15 Paper Bag Press Operator Relationship Specialty Start Date End Date Harmony Gee MD [address] [place] [address] 73447 PCP - General Internal Medicine 10/31/17 Harmony Gee MD [address] [place] [address] 44667 Internal Medicine 08/22/15 Paper Bag Press Operator Relationship Specialty Start Date End Date Harmony Gee MD [address] [place] [address] 32445 PCP - General Internal Medicine 10/31/17 Harmony Gee MD [address] [place] [address] 72823 Internal Medicine 08/22/15 Paper Bag Press Operator Relationship Specialty Start Date End Date Harmony Gee MD [address] [place] [address] 82577 PCP - General Internal Medicine 10/31/17 Harmony Gee MD [address] [place] [address] 83090 Internal Medicine 08/22/15 Paper Bag Press Operator Relationship Specialty Start Date End Date Harmony Gee MD [address] [place] [address] 28201 PCP - General Internal Medicine 10/31/17 Harmony Gee MD [address] [place] [address] 90356 Internal Medicine 08/22/15 Paper Bag Press Operator Relationship Specialty Start Date End Date Harmony Gee MD [address] [place] [address] 52748 PCP - General Internal Medicine 10/31/17 Harmony Gee MD [address] [place] [address] 28007 Internal Medicine 08/22/15 Paper Bag Press Operator Relationship Specialty Start Date End Date Harmony Gee MD [address] [place] [address] 74569 PCP - General Internal Medicine 10/31/17 Harmony Gee MD [address] [place] [address] 99053 Internal Medicine 08/22/15 Paper Bag Press Operator Relationship Specialty Start Date End Date Harmony Gee MD [address] [place] [address] 97481 PCP - General Internal Medicine 10/31/17 Harmony Gee MD [address] [place] [address] 51629 Internal Medicine 08/22/15 Paper Bag Press Operator Relationship Specialty Start Date End Date Harmony Gee MD [address] [place] [address] 37401 PCP - General Internal Medicine 10/31/17 Harmony Gee MD [address] [place] [address] 04175 Internal Medicine 08/22/15 Paper Bag Press Operator Relationship Specialty Start Date End Date Harmony Gee MD [address] [place] [address] 58426 PCP - General Internal Medicine 10/31/17 Harmony Gee MD [address] [place] [address] 76087 Internal Medicine 08/22/15 Paper Bag Press Operator Relationship Specialty Start Date End Date Harmony Gee MD [address] [place] [address] 89037 PCP - General Internal Medicine 10/31/17 Harmony Gee MD [address] [place] [address] 82231 Internal Medicine 08/22/15 Team Status: Active Member Role/Relationship Status Dates HARMONY GEE Primary Care Provider Active Team Status: Inactive Member Role/Relationship Status Dates MARLEN ANTUNEZ Primary Care Provider Active Start: April 25, 2025 End: April 25, 2025 Dr. Con Farr MD Attending Provider Active Start: April 25, 2025 End: April 25, 2025 Dr. Con Farr MD Referring Provider Active Start: April 25, 2025 End: April 25, 2025 Paper Bag Press Operator Relationship Specialty Start Date End Date Harmony Gee MD [address] [place] [address] 05335 PCP - General Internal Medicine 10/31/17 Harmony Gee MD [address] [place] [address] 69953 Internal Medicine 08/22/15 Paper Bag Press Operator Relationship Specialty Start Date End Date Harmony Gee MD [address] [place] [address] 46295 PCP - General Internal Medicine 10/31/17 Harmony Gee MD [address] [place] [address] 23485 Internal Medicine 08/22/15 Paper Bag Press Operator Relationship Specialty Start Date End Date Harmony Gee MD [address] [place] [address] 11560 PCP - General Internal Medicine 10/31/17 Harmony Gee MD [address] [place] [address] 03119 Internal Medicine 08/22/15 Paper Bag Press Operator Relationship Specialty Start Date End Date Harmony Gee MD [address] [place] [address] 21910 PCP - General Internal Medicine 10/31/17 Harmony Gee MD [address] [place] [address] 57805 Internal Medicine 08/22/15 Paper Bag Press Operator Relationship Specialty Start Date End Date Harmony Gee MD [address] [place] [address] 89911 PCP - General Internal Medicine 10/31/17 Harmony Gee MD [address] [place] [address] 58276 Internal Medicine 08/22/15 Paper Bag Press Operator Relationship Specialty Start Date End Date Harmony Gee MD [address] [place] [address] 96600 PCP - General Internal Medicine 10/31/17 Harmony Gee MD [address] [place] [address] 74423 Internal Medicine 08/22/15 Paper Bag Press Operator Relationship Specialty Start Date End Date Harmony Gee MD [address] [place] [address] 81312 PCP - General Internal Medicine 10/31/17 Harmony Gee MD [address] [place] [address] 88052 Internal Medicine 08/22/15 Paper Bag Press Operator Relationship Specialty Start Date End Date Harmony Gee MD [address] [place] [address] 92132 PCP - General Internal Medicine 10/31/17 Harmony Gee MD [address] [place] [address] 42814 Internal Medicine 08/22/15 Paper Bag Press Operator Relationship Specialty Start Date End Date Harmony Gee MD [address] [place] [address] 65798 PCP - General Internal Medicine 10/31/17 Harmony Gee MD [address] [place] [address] Internal Medicine 08/22/15 Source Comments (unrecognize d section and content) In the event this informatio n is protected by the Federal Confidentiality of Alcohol and Drug Abuse Patient Records regulations: The Federal rules restrict any use of the information to criminally investigate or prosecute any alcohol or drug abuse patient.[facility] the event this information is protected by the Federal Confidentiality of Alcohol and Drug Abuse Patient Records regulations: The Federal rules restrict any use of the information to criminally investigate or prosecute any alcohol or drug abuse patient.[facility] the event this information is protected by the Federal Confidentiality of Alcohol and Drug Abuse Patient Records regulations: The Federal rules restrict any use of the information to criminally investigate or prosecute any alcohol or drug abuse patient.[facility] the event this information is protected by the Federal Confidentiality of Alcohol and Drug Abuse Patient Records regulations: The Federal rules restrict any use of the information to criminally investigate or prosecute any alcohol or drug abuse patient.[facility] the event this information is protected by the Federal Confidentiality of Alcohol and Drug Abuse Patient Records regulations: The Federal rules restrict any use of the information to criminally investigate or prosecute any alcohol or drug abuse patient.[facility] the event this information is protected by the Federal Confidentiality of Alcohol and Drug Abuse Patient Records regulations: The Federal rules restrict any use of the information to criminally investigate or prosecute any alcohol or drug abuse patient.[facility] Goals (unrecognized section and content) Goals may be documented in a n alternate sectionGoals may be documented in an alternate section FOR RECORDS PERTAINING TO PATIENTS WHO ARE OR HAVE BEEN ENROLLED IN A CHEMICAL DEPENDENCY/SUBSTANCEABUSE PROGRAM, SOME INFORMATION MAY BE OMITTED. This clinical summary was aggregated from multiple sources. Caution should be exercised in using it in the provision of clinical care. This summary normalizes information from multiple sources, and as a consequence, information in this document may materially change the coding, format and clinical context of patient data. In addition, data may be omitted in some cases. CLINICAL DECISIONS SHOULD BE BASED ON THE PRIMARY CLINICAL RECORDS. [facility] [employer] [facility]. provides no warranty or guarantee of the accuracy or completeness of information in this document.
== END | disposition home or self-care (01) ==
LOC: RAD 15:10
PROVIDERS: Referring Provider Anesthesiology; Visit Provider Anesthesiology
DX: M25.561 Pain in right knee (principal); M25.562 Pain in left knee
CPT/HCPCS: 73560